=== PATIENT | female | born 1950 | race Caucasian/White ===

== ENCOUNTER → 2017-06-09 | Outpatient (CLI) | payer MEDICARE, OTHER ==
[~2017-06-09] MED LIST: ALPR.25T PO; ASP81TEC PO; ATEN50TA PO; BACL10TA PO; BUPR-45 PO; CA C1TAB26 PO; CATHETER FLUSH 10 ML SYR IV PRN; CYAN10007 PO; CYCL10TA9 PO; ESTR1TAB24 PO; FURO40TA4 PO; GABA600T2 PO; HYDR-3720 PO; IOHEXOL 350 MG/ML 150 ML (OMNIPAQUE 350) VIAL IV ONE; IOHEXOL 350 MG/ML 150 ML (OMNIPAQUE 350) VIAL IV SCH; KCL10CCR PO; NF-DICLOTA PO; NF-ESTR1.5 PO; NS 100 ML (IVPB) BAG IV ONE; PANT40SU PO; PNT40TEC PO; PREG75CA PO; ROPI1TAB2 PO; SERT50TA PO; TRAM50TA2 PO; WRF5T PO; ZLP10T PO
--- NOTE | 2017-06-09 16:33 | Diagnostic Imaging Report ---
PROCEDURE: CT angiography of the chest with contrast. TECHNIQUE: Multiple contiguous axial images were obtained through the chest after uneventful bolus administration of intravenous contrast. Reconstructed CTA MIP acquisitions were also performed. INDICATION: Shortness of air, anterior chest wall pain, history of pulmonary emboli. FINDINGS: There are no intraluminal pulmonary arterial filling defects. There were no findings of pulmonary arterial embolus. The thoracic aorta is patent and nonacute. There is a small retrocardiac hiatal hernia. No pleural or pericardial effusion. There is no pneumothorax. No lung mass or thoracic lymphadenopathy. No focal infiltrate or findings of pneumonia or aspiration. There was no acute soft tissue or osseous chest wall abnormality. No evidence for fracture or bony destruction. No adenopathy. The visualized upper abdomen reveals absent gallbladder. At least scarring or atrophy of the partially visualized right renal upper pole and no acute-appearing abnormality. IMPRESSION: Negative for PE or acute aortic pathology. Hiatal hernia with no chest wall abnormality. Likely scarring or atrophy of the partially visualized right renal upper pole, chronic. Pertinent results of the exam were left on the ordering physician's phone mail service at the number where call report was requested at the time of this dictation. Dictated by: Dictated on workstation # [id number]
== END ==
LOC: RAD 15:35
PROVIDERS: ATTEND Internal Medicine Cardiovascular Disease
DX: K44.9 Diaphragmatic hernia without obstruction or gangrene (principal); Z86.711 Personal history of pulmonary embolism
CPT/HCPCS: 71275

== ENCOUNTER → 2017-06-30 | Outpatient (CLI) | payer MEDICARE, OTHER ==
[~2017-06-30] MED LIST changes: -CATHETER FLUSH 10 ML SYR IV PRN; -IOHEXOL 350 MG/ML 150 ML (OMNIPAQUE 350) VIAL IV ONE; -IOHEXOL 350 MG/ML 150 ML (OMNIPAQUE 350) VIAL IV SCH; -NS 100 ML (IVPB) BAG IV ONE; +REGADENOSON 0.4 MG/5 ML SYR (LEXISCAN) IV ONE
[2017-06-30] MEDS: CATHETER FLUSH 10 ML SYR IV PRN ×2 (12:03→13:08)
[2017-06-30 13:05] VITALS: BP 176/98
--- NOTE | 2017-06-30 14:30 | STRESS TEST ---
DATE OF SERVICE: 06/30/2017 LEXISCAN MYOVIEW STRESS TEST REPORT Baseline heart rate is 63. Baseline blood pressure 176/98. Baseline EKG, sinus rhythm with no ischemic changes. In summary, the patient received 10.5 mCi of technetium-99 Myoview and the resting images were obtained. Then, the patient received 0.4 mg of Lexiscan followed by 32.5 mCi of technetium-99 Myoview. Throughout the test, there were no EKG changes. The resting and stress images were reviewed and compared in the short axis, horizontal long axis, and vertical long axis views. Review of the images showed breast attenuation with good radiotracer uptake, no significant ischemia or infarction was seen. SSS is 2, SDS 1, TID value 0.93. On the gated images, the left ventricle appeared to be normal size with normal contractility. Calculated ejection fraction 78%. CONCLUSION: 1. The patient tolerated Lexiscan well. 2. No ischemia or infarction on SPECT images. 3. Normal left ventricular size with normal contractility. Calculated ejection fraction 78%. Job ID: [id number] DocumentID: [id number] Dictated Date: 06/30/2017 14:16:01 Care Transition Mgr Date: 06/30/2017 14:29:39 Dictated By: CAROLINA LOPEZ MD
== END ==
LOC: CARD 10:50
PROVIDERS: ATTEND Internal Medicine Cardiovascular Disease
DX: R07.9 Chest pain, unspecified (principal); I73.9 Peripheral vascular disease, unspecified; R53.83 Other fatigue; E78.2 Mixed hyperlipidemia; R06.02 Shortness of breath
CPT/HCPCS: 78452; 93017

== ENCOUNTER → 2017-11-11 | Outpatient (CLI) | payer MEDICARE, OTHER ==
[~2017-11-11] MED LIST changes: -REGADENOSON 0.4 MG/5 ML SYR (LEXISCAN) IV ONE
--- NOTE | 2017-11-11 17:50 | Diagnostic Imaging Report ---
INDICATION: Routine screening. COMPARISON: Prior exam from 03/28/2015 and 03/05/2014. EXAMINATION: Bilateral digital screening mammogram with CAD. 3D tomographic images were obtained and reviewed. The current study was also evaluated with a Computer Aided Detection (CAD) system. FINDINGS: Both breasts are heterogeneously dense, limiting the sensitivity of mammography. The parenchymal pattern is stable. No dominant mass or malignant appearing microcalcifications are seen. The axillae are unremarkable. IMPRESSION: BI-RADS category 1 No mammographic features suspicious for malignancy are identified. Dictated by: Dictated on workstation # [id number]
== END ==
LOC: RAD 14:31
PROVIDERS: ATTEND Family Medicine
DX: Z12.31 Encounter for screening mammogram for malignant neoplasm of breast (principal)
CPT/HCPCS: 77067

== ENCOUNTER 2018-11-04 11:00 | Observation (INO) | payer MEDICARE, OTHER ==
[~2018-11-04] VITALS: Ht 165.1 cm; Wt 100.3 kg
[2018-11-04] MEDS ORDERED: NS IV 1000 ML 1,000 ML IV SCH ×2 (11:06→12:50)
--- NOTE | 2018-11-04 11:14 | ED General ---
General Chief Complaint: General Problems/Pain Stated Complaint: WEAKNESS Source of Information: Patient Exam Limitations: No Limitations History of Present Illness Date Seen by Provider: Nov 04, 2018 Time Seen by Provider: 11:05 Initial Comments 68-year-old female brought in for generalized malaise. Patient reports that when she got up to go the restroom at 3 AM this morning she was a little confused and dizzy. She complains of a headache and some blurred vision at this time. She denies any fever, chills, cough, shortness of breath, chest pain. At this time her main complaint is some generalized malaise. No confusion at this time. Patient described his confusion is "not being able to find the bathroom Allergies and Home Medications Allergies Coded Allergies: No Known Drug Allergies (Unverified , 09/14/09) Home Medications Alprazolam 0.25 Mg Tablet, 0.25 MG PO TID PRN, (Reported) Aspirin 81 Mg Tabec, 81 MG PO DAILY, (Reported) Atenolol 50 Mg Tablet, 50 MG PO DAILY, (Reported) Baclofen 10 Mg Tablet, 10 MG PO DAILY, (Reported) Ca Cmb No.1/Vit D3/B-6/Fa/B12 1 Each Tablet, 1 EACH PO DAILY, (Reported) Cyanocobalamin 1,000 Mcg Tablet.sa, 1,000 MCG PO DAILY, (Reported) Cyclobenzaprine Hcl 10 Mg Tablet, 1 EACH PO Q8HR PRN FOR MUSCLE SPASMS Prescribed by: LUCERO EDMONDS on 09/15/09 0010 Furosemide 40 Mg Tablet, 40 MG PO BID, (Reported) Gabapentin 600 Mg Tablet, 600 MG PO TID, (Reported) Hydrocodone Bit/Acetaminophen 1 Each Tablet, 1-2 EACH PO Q 4 - 6 HRS PRN PRN FOR PAIN Prescribed by: LUCERO EDMONDS on 09/15/09 0010 Pantoprazole Sod 40 Mg Tab, 40 MG PO DAILY, (Reported) Potassium Chloride 10 Meq Capcr, 10 MEQ PO DAILY, (Reported) Pregabalin 75 Mg Capsule, 75 MG PO BID, (Reported) Ropinirole Hcl 1 Mg Tablet, 1 MG PO DAILY, (Reported) Sertraline Hcl 50 Mg Tablet, 50 MG PO DAILY, (Reported) Tramadol Hcl 50 Mg Tablet, 50 MG PO DAILY PRN, (Reported) Warfarin Sodium 5 Mg Tablet, 1 EACH PO every other day, (Reported) Warfarin Sodium 5 Mg Tablet, 7.5 MG PO every other day, (Reported) Zolpidem Tartrate 10 Mg Tab, 10 MG PO HS, (Reported) Patient Home Medication List Home Medication List Reviewed: Yes Review of Systems Review of Systems Constitutional: dizziness; No fever; malaise Respiratory: No cough Cardiovascular: No chest pain Gastrointestinal: no symptoms reported Genitourinary: no symptoms reported Musculoskeletal: no symptoms reported Skin: no symptoms reported Psychiatric/Neurological: See HPI Past Lwqdmkn-Crhbdd-Zjpkon Hx Past Med/Social Hx: Reviewed Nursing Past Med/Soc Hx Patient Social History Alcohol Use: Denies Use Recreational Drug Use: No Smoking Status: Never a Smoker Recent Hopitalizations: No Physical Abuse: No Sexual Abuse: No Mistreated: No Fear: No Immunizations Up To Date Date of Pneumonia Vaccine: Oct 27, 2010 Date of Influenza Vaccine: Dec 27, 2010 Past Medical History Surgeries: Yes (back 3yrs. ago, 1994 gall bladder removed, knee replacement 2001) Respiratory: No Cardiac: No Neurological: No Reproductive Disorders: No Gastrointestinal: Yes Musculoskeletal: Yes Endocrine: No Psychosocial: No Blood Disorders: No Physical Exam Vital Signs Vital Signs - First Documented 11/04/18 11:06 Temp 97.1 Pulse 59 Resp 14 B/P (MAP) 161/86 (111) Pulse Ox 99 O2 Delivery Room Air Capillary Refill : Height, Weight, BMI Height: '" Weight: lbs. oz. 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 Norm as Tested Skin: Normal Color, Warm/Dry Progress/Results/Core Measures Suspected Sepsis SIRS Temperature: Pulse: Respiratory Rate: Laboratory Tests 11/04/18 11:10: White Blood Count 4.4 Blood Pressure / Mean: Laboratory Tests 11/04/18 11:10: Creatinine 1.21, Platelet Count 232, Total Bilirubin 0.5 Results/Orders Lab Results Laboratory Tests Test 11/04/18 11:10 11/04/18 12:23 Range/Units White Blood Count 4.4 4.3-11.0 10^3/uL Red Blood Count 4.62 4.35-5.85 10^6/uL Hemoglobin 13.1 11.5-16.0 G/DL Hematocrit 40 35-52 % Mean Corpuscular Volume 87 80-99 FL Mean Corpuscular Hemoglobin 28 25-34 PG Mean Corpuscular Hemoglobin Concent 33 32-36 G/DL Red Cell Distribution Width 13.3 10.0-14.5 % Platelet Count 232 130-400 10^3/uL Mean Platelet Volume 9.2 7.4-10.4 FL Sodium Level 140 135-145 MMOL/L Potassium Level 4.1 3.6-5.0 MMOL/L Chloride Level 105 98-107 MMOL/L Carbon Dioxide Level 26 21-32 MMOL/L Anion Gap 9 5-14 MMOL/L Blood Urea Nitrogen 10 7-18 MG/DL Creatinine 1.21 0.60-1.30 MG/DL Estimat Glomerular Filtration Rate 44 BUN/Creatinine Ratio 8 Glucose Level 104 70-105 MG/DL Calcium Level 10.1 8.5-10.1 MG/DL Corrected Calcium 9.9 8.5-10.1 MG/DL Total Bilirubin 0.5 0.1-1.0 MG/DL Aspartate Amino Transf (AST/SGOT) 18 5-34 U/L Alanine Aminotransferase (ALT/SGPT) 17 0-55 U/L Alkaline Phosphatase 81 40-136 U/L Troponin I < 0.028 <0.028 NG/ML Total Protein 7.0 6.4-8.2 GM/DL Albumin 4.2 3.2-4.5 GM/DL Thyroid Stimulating Hormone (TSH) 1.21 0.35-4.94 UIU/ML Urine Color YELLOW Urine Clarity CLEAR Urine pH 7 5-9 Urine Specific [place] 1.005 L 1.016-1.022 Urine Protein NEGATIVE NEGATIVE Urine Glucose (UA) NEGATIVE NEGATIVE Urine Ketones NEGATIVE NEGATIVE Urine Nitrite NEGATIVE NEGATIVE Urine Bilirubin NEGATIVE NEGATIVE Urine Urobilinogen NORMAL NORMAL MG/DL Urine Leukocyte Esterase 1+ H NEGATIVE Urine RBC (Auto) NEGATIVE NEGATIVE Urine RBC NONE /HPF Urine WBC RARE /HPF Urine Squamous Epithelial Cells RARE /HPF Urine Crystals NONE /LPF Urine Bacteria NEGATIVE /HPF Urine Casts NONE /LPF Urine Mucus NEGATIVE /LPF Urine Culture Indicated NO My Orders Orders - MACIAS,TWIN L DO Ct Head Wo (11/04/18 11:06) Cbc No Diff (11/04/18 11:06) Comprehensive Metabolic Panel (11/04/18 11:06) Thyroid Stimulating Hormone (11/04/18 11:06) Troponin I (11/04/18 11:06) Ua Culture If Indicated (11/04/18 11:06) Ekg Tracing (11/04/18 11:06) Orthostatic Vital Signs (Adult (11/04/18 11:06) I-Stat Bedside Testing (11/04/18 11:06) Chest Pa/Lat (2 View) (11/04/18 11:06) Ed Iv/Invasive Line Start (11/04/18 11:06) Ns Iv 1000 Ml (Sodium Chloride 0.9%) (11/04/18 11:06) Meclizine Tablet (Antivert Tablet) (11/04/18 11:15) Ketorolac Injection (Toradol Injection) (11/04/18 11:53) Orphenadrine Injection (Norflex Injectio (11/04/18 12:45) Ed Iv/Invasive Line Start (11/04/18 12:50) Ns Iv 1000 Ml (Sodium Chloride 0.9%) (11/04/18 12:50) Medications Given in ED Current Medications Medications Dose Ordered Sig/Ju Route Start Time Stop Time Status Last Admin Dose Admin Meclizine HCl 25 mg ONCE ONCE PO 11/04/18 11:15 11/04/18 11:16 DC 11/04/18 11:15 25 MG Orphenadrine Citrate 60 mg ONCE ONCE IV 11/04/18 12:45 11/04/18 12:46 DC 11/04/18 12:46 60 MG Vital Signs/I&O 11/04/18 11/04/18 11:06 11:15 Temp 97.1 Pulse 59 68 69 Resp 14 B/P (MAP) 161/86 (111) 161/86 (111) 140/99 (113) 125/87 (100) Pulse Ox 99 O2 Delivery Room Air Capillary Refill : Progress Note : Time: 12:15 Progress Note To discuss lab results CT and x-ray and EKG findings with patient and family. In their daughter became very aggressive and angry towards me because "she states that the mother had slurred speech around 10 AM this morning and i mentioned to her that this was the first time that I had been informed of any speech changes or any other symptoms besides a mild headache, dizziness, mild blurred vision. Daughter then questioned when I evaluated patient . I discussed with her that I walked in with the ambulance got report from EMS, and patient and there was no mention of slurred speech until she just brought it up. Patient did not have slurred speech upon arrival and has not had slurred speech since along with no other acute neurological findings besides mention mild blurred vision. Daughter also reports that patient is very weak and cannot stand however this is not consistent with what was seen by the tech. Patient was very aggressive in her question of me. When I explained to her what was going on she told me to "check myself" 1405 patient had additional family arrived. 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 I once again discussed with them that she has no neurologic symptoms besides some mild dizziness. Patient was minimally unsteady on her feet. I did call and discuss with the hospitalist. I discussed with the family that we couldn't admit her for observation overnight however we would not be able obtain further workup including MRI and carotid ultrasound. Patient recently she went to go home however family continues to stress for admission. I discussed with her that I will do whatever you want since I have an observation admission if they would choose. ECG Initial ECG Impression Date: Nov 04, 2018 Initial ECG Impression Time: 11:04 Initial ECG Rhythm: Normal Sinus Initial ECG Intervals: Normal Initial ECG Impression: Normal Departure Communication (Admissions) Time/Spoke to Admitting Phy: 14:20 Called and discussed with Dr. Medina. Patient to be admitted to observation. We will gently rehydrate her with fluids and recheck labs in the morning. Patient is admitted to observation stable condition. Impression Primary Impression: Weakness generalized Additional Impression: Dizziness of unknown etiology Disposition: ADMITTED INPATIENT Condition: Stable Admissions Decision to Admit Reason: Admit from ER (General) Decision to Admit/Date: Nov 04, 2018 Time/Decision to Admit Time: 14:21 Departure-Patient Inst. Referrals: DANIELLA VILLALPANDO MD (PCP/Family) Primary Care Physician TWIN MACIAS DO Nov 04, 2018 11:14
[2018-11-04 11:15] VITALS: BP_SYST 125; BP_SYST 140; BP_SYST 161; BP_DIAS 86; BP_DIAS 87; BP_DIAS 99
[2018-11-04] MEDS ORDERED: MECLIZINE 25 MG (ANTIVERT) TAB PO ONE (11:15)
[2018-11-04 11:18] LABS: HEMOGLOBIN 13.1 G/DL (11.5-16.0); MEAN PLATELET VOLUME 9.2 FL (7.4-10.4); RED CELL DISTRIBUTION WIDTH 13.3 % (10.0-14.5); WHITE BLOOD COUNT 4.4 10^3/uL (4.3-11.0)
[2018-11-04 11:35] LABS: ALANINE AMINOTRANSFERASE 17 U/L (0-55); ALBUMIN 4.2 GM/DL (3.2-4.5); ALKALINE PHOSPHATASE 81 U/L (40-136); BILIRUBIN,TOTAL 0.5 MG/DL (0.1-1.0); BUN/CREATININE RATIO 8; CALCIUM 10.1 MG/DL (8.5-10.1); CARBON DIOXIDE 26 MMOL/L (21-32); CHLORIDE 105 MMOL/L (98-107); CREATININE SERUM 1.21 MG/DL (0.60-1.30); GFR ESTIMATED 44; GLUCOSE 104 MG/DL (70-105); POTASSIUM 4.1 MMOL/L (3.6-5.0); SODIUM 140 MMOL/L (135-145)
--- NOTE | 2018-11-04 11:47 | Diagnostic Imaging Report ---
PROCEDURE: CT head without contrast. TECHNIQUE: Multiple contiguous axial images were obtained through the brain without the use of intravenous contrast. Auto Exposure Controls were utilized during the CT exam to meet ALARA standards for radiation dose reduction. INDICATION: Generalized Weakness. Headache. Posterior head pain. COMPARISON: CT head on 05/15/2010 FINDINGS: The ventricles and cortical sulci are age-appropriate. There is no midline shift or mass-effect. No acute intracranial hemorrhage is seen. There is no CT evidence of acute territorial ischemia. No focal masses or collections are present. The calvarium is intact. The visualized paranasal sinuses are clear. IMPRESSION: No hemorrhage or focal intra-axial mass. No CT evidence of large acute territorial ischemia. Dictated by: Dictated on workstation # [id number]
[2018-11-04] MEDS ORDERED: KETOROLAC 30 MG/ML VIAL IVP STA (11:53)
--- NOTE | 2018-11-04 11:57 | Diagnostic Imaging Report ---
INDICATION: Fever with nausea, vomiting and diarrhea. TIME OF EXAM: 11:43 AM Comparison is made with prior chest from 03/18/2011. FINDINGS: The heart size is stable. There is eventration of right hemidiaphragm. The lungs are clear. No infiltrates are seen. No effusion or pneumothorax is identified. The pulmonary vascularity is normal. IMPRESSION: No acute cardiopulmonary process is detected. Dictated by: Dictated on workstation # [id number]
[2018-11-04 12:29] LABS: BILIRUBIN,URINE NEGATIVE (NEGATIVE); CLARITY,URINE CLEAR; COLOR,URINE YELLOW; GLUCOSE, URINE (UA) NEGATIVE (NEGATIVE); KETONES,URINE NEGATIVE (NEGATIVE); LEUKOCYTE ESTERASE ,URINE 1+ (NEGATIVE); NITRITE,URINE NEGATIVE (NEGATIVE); PH,URINE 7 (5-9); PROTEIN,URINE NEGATIVE (NEGATIVE); UROBILINOGEN,URINE NORMAL (NORMAL)
[2018-11-04 12:42] LABS: BACTERIA,URINE NEGATIVE /HPF; SQUAMOUS EPITHELIAL CELL,UR RARE /HPF; WBC,URINE RARE /HPF
--- NOTE | 2018-11-04 12:42 | NUR ---
PT WALKES TO BATHROOM WITH 2 ASSIST AND RETURNS TO BATHROOM WITH 1 ASSIST. PT FAMILY STATES THAT PT WAS "HANGING UPSIDE DOWN IN NOMAN WIRE" PRIOR TO ARRIVAL. PT DENIES HITTING HEAD. PT ALERT AND ORIENT X4 AT THIS TIME. PT IS MORE TALKATIVE THAN WHEN SHE FIRST ARRIVED TO HOSPITAL. PT C/O FEELING DIZZY AND BLURRY VISION. DOCTOR NOTIFIED. FAMILY STATES PT NEVER HAS NORMAL LABS AND USUALLY HAS ABNORMAL BUN AND CREAT. NIH 0
[2018-11-04] MEDS ORDERED: ORPHENADRINE 60 MG/2 ML (NORFLEX) AMP IV ONE (12:45)
--- NOTE | 2018-11-04 13:04 | NUR ---
THIS RN PRESENT WHEN PT STATES TO DOCTOR THAT SHE DOES NOT WANT TO BE ADMITTED. PT ALERT AND ORIENT X4.
--- NOTE | 2018-11-04 13:06 | NUR ---
FAMILY STATES THAT PT TOLD THEM THAT "SHE WAS WALKING ALL AROUND THE ROOM THIS MORNING AND BUMPING INTO THINGS"
--- NOTE | 2018-11-04 13:08 | NUR ---
PT FAMILY STATES CONTACTED DR. LOPEZ TO COME SEE PATIENT.
--- NOTE | 2018-11-04 13:18 | NUR ---
PT TOLERATES WATER AND ICE CHIPS WITHOUT DIFFICULTY.
--- NOTE | 2018-11-04 13:56 | NUR ---
PT ASSISTED TO THE BATHROOM WITH 1 ASSIST. PT HAS AN UNSTEADY GAIT. HAVE EXTENSIVE CONVERSATION THAT THIS RN WILL BE AN ADVOCATE FOR PT WITH WHAT SHE WANTS FAR ADMISSION AND CONSULTS. THIS RN REINFORCES THAT SHE HAS A FAMILY TO CARE FOR HER WITH DEMENTIA. MANY TIME PT IS ASKED IF SHE WANTS TO BE ADMITTED AND PT DENIES.
--- NOTE | 2018-11-04 14:02 | NUR ---
PT ALERT AND ORIENT X4 WITH NO OBVIOUS NEURO DEFICET
--- NOTE | 2018-11-04 14:15 | NUR ---
PT AGREES TO BE ADMITTED TO OBSERVATION
--- NOTE | 2018-11-04 14:39 | NUR ---
FAMILY COMES TO NURSE'S STATIONS AND STATES THAT PT WAS SHAKING WHILE HOLDING A PEN. DOCTOR NOTIFIED AT THIS TIME.
--- NOTE | 2018-11-04 14:58 | NUR ---
REPORT RECEIVED FROM JETHRO MEADOWS RN.
--- NOTE | 2018-11-04 15:08 | NUR ---
PT ARRIVED TO UNIT VIA WHEELCHAIR ACCOMPANIED BY JETHRO JONAS AND PT'S FAMILY.
--- OUTSIDE RECORDS SUMMARY | 2018-11-04 15:27 | XMS REPORT | CCD ---
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 Name Role Phone PP Unavailable CCM Unavailable Summary Purpose Interface Exchange Insurance Providers Payer name Policy type / Coverage type Covered alliance party ID Effective Begin Date Effective End Date WPS Medicare Part B Medicare Part B [id number] Unknown [employer] Medicare Part B [id number] Unknown Family history Mother Diagnosis Age At Onset Hypertension Unknown Hyperlipidemia Unknown Arthritis Unknown Osteoporosis Unknown Father Diagnosis Age At Onset Depression Unknown Heart disease Unknown Diabetes mellitus Type 2 Unknown Daughter Diagnosis Age At Onset No Family Disease Entered N/A Sister Diagnosis Age At Onset No Family Disease Entered N/A Brother Diagnosis Age At Onset Alcoholism Unknown Sister Diagnosis Age At Onset No Family Disease Entered N/A Brother Diagnosis Age At Onset No Family Disease Entered N/A Sister Diagnosis Age At Onset Breast cancer Unknown Daughter Diagnosis Age At Onset No Family Disease Entered N/A Social History Social History Element Codes Description Effective Dates Tobacco history SNOMED CT: 894340276 Never smoker but had significant smoke exposure during first marriage, [place]. 08/01/2013 Employment Unknown Retired doing as needed working for the [employer]. 05/02/2013 Marital status Unknown 04/18/[address]: 499119074 Never drinks alcohol 04/18/2013 Has the patient ever used illegal drugs? Unknown Has never used illegal drugs 04/18/2013 Allergies, Adverse Reactions, Alerts Substance Reaction Codes Entered Date Inactivated Date Status * NO KNOWN FOOD ALLERGIES Unknown 04/18/2013 No Inactive Date Active Seasonal Unknown 04/18/2013 No Inactive Date Active * NO KNOWN DRUG ALLERGIES Unknown 04/18/2013 No Inactive Date Active Past Medical History Illness Codes Condition Status Onset Date Resolved Date Fusion of spine, lumbar region ICD-9: 718.58 ICD-10: M43.26 Active 09/26/2018 Unknown Low back pain ICD-9: 724.2 ICD-10: M54.5 Active 09/26/2018 Unknown Spinal instabilities, lumbar region ICD-9: 724.9 ICD-10: M53.2X6 Active 09/26/2018 Unknown Chronic kidney disease, stage 3 (moderate) ICD-9: 585.3 ICD-10: N18.3 Active 02/24/2016 Unknown Cough ICD-9: 786.2 ICD-10: R05 Active 07/27/2018 Unknown Essential (primary) hypertension ICD-9: 401.1 ICD-10: I10 Active 09/27/2017 Unknown Generalized anxiety disorder ICD-9: 308.0 ICD-10: F41.1 Active 02/24/2016 Unknown Chronic pain syndrome ICD- 9: 338.4 ICD-10: G89.4 Active 07/23/2017 Unknown Localized edema ICD-9: 782.3 ICD-10: R60.0 Active 09/27/2017 Unknown 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 Active 10/06/2017 Unknown Essential (primary) hypertension ICD-9: 401.9 ICD-10: I10 Active 02/24/2016 Unknown Other specified abnormal findings of blood chemistry ICD-9: 790.92 ICD-10: R79.89 Active 06/23/2017 Unknown Chest pain, unspecified ICD-9: 786.50 ICD-10: R07.9 Active 06/01/2017 Unknown Gastro-esophageal reflux disease without esophagitis ICD-9: 530.81 ICD-10: K21.9 Active 05/11/2017 Unknown Contusion of right lower leg, initial encounter ICD-9: 924.5 ICD-10: S80.11XA Active 10/30/2016 Unknown Allergic rhinitis, unspecified ICD-9: 477.9 ICD-10: J30.9 Active 09/15/2016 Unknown Pain in left hand ICD-9: 729.5 ICD-10: M79.642 Active 06/19/2016 Unknown Pain in right hand ICD- 9: 729.5 ICD-10: M79.641 Active 06/19/2016 Unknown Major depressive disorder, recurrent, moderate ICD-9: 296.32 ICD-10: F33.1 Active 02/24/2016 Unknown Shortness of breath ICD- 9: 786.05 ICD-10: R06.02 Active 02/24/2016 Unknown Myalgia ICD-9: 729.1 ICD-10: M79.1 Active 01/27/2016 Unknown Restless legs syndrome ICD-9: 333.94 ICD-10: G25.81 Active 01/27/2016 Unknown Encounter for immunization ICD-9: V06.6 ICD-10: Z23 Active 01/07/2016 Unknown Insomnia, unspecified ICD- 9: 780.52 ICD-10: G47.00 Active 11/13/2015 Unknown 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] ICD-9: 082.41 ICD-10: A77.41 Active 10/09/2015 Unknown Irritable bowel syndrome with diarrhea ICD-9: 564.1 ICD-10: K58.0 Active 10/09/2015 Unknown Bitten or stung by nonvenomous insect and other nonvenomous arthropods, initial encounter ICD-9: 919.4 ICD-10: W57.XXXA Active 09/11/2015 Unknown Iron deficiency ICD-9: 280.9 ICD-10: E61.1 Active 09/11/2015 Unknown Other vitamin B12 deficiency anemias ICD-9: 281.1 ICD-10: D51.8 Active 09/11/2015 Unknown Chronic kidney disease, stage 3 ICD-9: 585.3 Active 05/02/2013 Unknown Easy bruising ICD-9: 782.9 Active 09/06/2014 Unknown Iron deficiency anemia ICD-9: 280.9 Active 09/06/2014 Unknown Shingles ICD-9: 053.9 Active 07/16/2014 Unknown COUGH ICD-9: 786.2 Active 04/02/2014 Unknown PNEUMONIA (CAP) ICD-9: 486 Active 04/02/2014 Unknown OTH SCREENING MAMMOGRAM ICD-9: V76.12 Active 12/27/2013 Unknown EDEMA ICD-9: 782.3 Active 12/14/2013 Unknown ESSENTIAL HYPERTENSION ICD-9: 401.9 Active 12/14/2013 Unknown Rib pain on left side ICD- 9: 786.50 Active 12/14/2013 Unknown ALLERGIC RHINITIS ICD-9: 477.9 Active 08/01/2013 Unknown Elbow pain, right ICD-9: 719.42 Active 08/01/2013 Unknown ESOPHAGEAL REFLUX ICD-9: 530.81 Active 08/01/2013 Unknown Snoring ICD-9: 786.09 Active 08/01/2013 Unknown Urge incontinence ICD-9: 788.31 Active 08/01/2013 Unknown Hyperlipidemia Unknown Active 05/02/2013 Unknown HYPERLIPIDEMIA ICD-9: 272.4 Active 05/02/2013 Unknown Anemia Unknown Active 04/18/2013 Unknown Depression Unknown Active 04/18/2013 Unknown edema Unknown Active 04/18/2013 Unknown Fibromyalgia Unknown Active 04/18/2013 Unknown Hypertension Unknown Active 04/18/2013 Unknown Miscarriage Unknown Active 04/18/2013 Unknown Osteoarthritis Unknown Active 04/18/2013 Unknown renal insufficiency Unknown Active 04/18/2013 Unknown Restless leg ICD-9: 333.94 Active 04/18/2013 Unknown Problems Condition Codes Effective Dates Condition Status Fusion of spine, lumbar region ICD-9: 718.58 ICD-10: M43.26 09/26/2018 Active Low back pain ICD-9: 724.2 ICD-10: M54.5 09/26/2018 Active Spinal instabilities, lumbar region ICD-9: 724.9 ICD-10: M53.2X6 09/26/2018 Active Chronic kidney disease, stage 3 (moderate) ICD-9: 585.3 ICD-10: N18.3 02/24/2016 Active Cough ICD-9: 786.2 ICD-10: R05 07/27/2018 Active Essential (primary) hypertension ICD-9: 401.1 ICD-10: I10 09/27/2017 Active Generalized anxiety disorder ICD-9: 308.0 ICD-10: F41.1 02/24/2016 Active Chronic pain syndrome ICD- 9: 338.4 ICD-10: G89.4 07/23/2017 Active Localized edema ICD-9: 782.3 ICD-10: R60.0 09/27/2017 Active 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 10/06/2017 Active Essential (primary) hypertension ICD-9: 401.9 ICD-10: I10 02/24/2016 Active Other specified abnormal findings of blood chemistry ICD-9: 790.92 ICD-10: R79.89 06/23/2017 Active Chest pain, unspecified ICD-9: 786.50 ICD-10: R07.9 06/01/2017 Active Gastro-esophageal reflux disease without esophagitis ICD-9: 530.81 ICD-10: K21.9 05/11/2017 Active Contusion of right lower leg, initial encounter ICD-9: 924.5 ICD-10: S80.11XA 10/30/2016 Active Allergic rhinitis, unspecified ICD-9: 477.9 ICD-10: J30.9 09/15/2016 Active Pain in left hand ICD-9: 729.5 ICD-10: M79.642 06/19/2016 Active Pain in right hand ICD- 9: 729.5 ICD-10: M79.641 06/19/2016 Active Major depressive disorder, recurrent, moderate ICD-9: 296.32 ICD-10: F33.1 02/24/2016 Active Shortness of breath ICD- 9: 786.05 ICD-10: R06.02 02/24/2016 Active Myalgia ICD-9: 729.1 ICD-10: M79.1 01/27/2016 Active Restless legs syndrome ICD-9: 333.94 ICD-10: G25.81 01/27/2016 Active Encounter for immunization ICD-9: V06.6 ICD-10: Z23 01/07/2016 Active Insomnia, unspecified ICD- 9: 780.52 ICD-10: G47.00 11/13/2015 Active 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] ICD-9: 082.41 ICD-10: A77.41 10/09/2015 Active Irritable bowel syndrome with diarrhea ICD-9: 564.1 ICD-10: K58.0 10/09/2015 Active Bitten or stung by nonvenomous insect and other nonvenomous arthropods, initial encounter ICD-9: 919.4 ICD-10: W57.XXXA 09/11/2015 Active Iron deficiency ICD-9: 280.9 ICD-10: E61.1 09/11/2015 Active Other vitamin B12 deficiency anemias ICD-9: 281.1 ICD-10: D51.8 09/11/2015 Active Chronic kidney disease, stage 3 ICD-9: 585.3 05/02/2013 Active Easy bruising ICD-9: 782.9 09/06/2014 Active Iron deficiency anemia ICD-9: 280.9 09/06/2014 Active Shingles ICD-9: 053.9 07/16/2014 Active COUGH ICD-9: 786.2 04/02/2014 Active PNEUMONIA (CAP) ICD-9: 486 04/02/2014 Active OTH SCREENING MAMMOGRAM ICD-9: V76.12 12/27/2013 Active EDEMA ICD-9: 782.3 12/14/2013 Active ESSENTIAL HYPERTENSION ICD-9: 401.9 12/14/2013 Active Rib pain on left side ICD- 9: 786.50 12/14/2013 Active ALLERGIC RHINITIS ICD-9: 477.9 08/01/2013 Active Elbow pain, right ICD-9: 719.42 08/01/2013 Active ESOPHAGEAL REFLUX ICD-9: 530.81 08/01/2013 Active Snoring ICD-9: 786.09 08/01/2013 Active Urge incontinence ICD-9: 788.31 08/01/2013 Active Hyperlipidemia Unknown 05/02/2013 Active HYPERLIPIDEMIA ICD-9: 272.4 05/02/2013 Active Anemia Unknown 04/18/2013 Active Depression Unknown 04/18/2013 Active edema Unknown 04/18/2013 Active Fibromyalgia Unknown 04/18/2013 Active Hypertension Unknown 04/18/2013 Active Miscarriage Unknown 04/18/2013 Active Osteoarthritis Unknown 04/18/2013 Active renal insufficiency Unknown 04/18/2013 Active Restless leg ICD-9: 333.94 04/18/2013 Active Medications Medication Codes Instructions Start Date Stop Date Status Fill Instructions labetalol 100 mg tablet RxNorm: 784877 TAKE ONE TABLET BY MOUTH TWICE A DAY 10/27/2018 10/21/2019 Active tramadol 50 mg tablet RxNorm: 027230 2 Tablet(s) PO BID 10/04/2018 12/02/2018 Active baclofen 5 mg tablet RxNorm: 336523 1/2 Tablet(s) PO TID as needed 09/26/2018 11/24/2018 Active Xanax 0.5 mg tablet RxNorm: 668904 1 Tablet(s) PO UD 1/2 AM, 1/2 noon if needed and 1 hs 07/27/2018 11/23/2018 Active Tessalon Perles 100 mg capsule RxNorm: 239329 1 Capsule(s) PO TID as needed cough 07/27/2018 10/24/2018 Inactive doxycycline hyclate 100 mg tablet RxNorm: 8910126 1 Tablet(s) PO BID 07/12/2018 07/25/2018 Inactive ropinirole 1 mg tablet RxNorm: 992208 TAKE TWO TABLETS BY MOUTH EVERY NIGHT AT BEDTIME 07/04/2018 03/30/2019 Active Carafate 1 gram tablet RxNorm: 926304 TAKE ONE TABLET BY MOUTH FOUR TIMES A DAY 07/04/2018 10/01/2018 Inactive montelukast 10 mg tablet RxNorm: 947964 TAKE ONE TABLET BY MOUTH EVERY NIGHT AT BEDTIME 07/04/2018 03/30/2019 Active losartan 100 mg tablet RxNorm: 318706 1 Tablet(s) PO daily 05/04/2018 01/28/2019 Active tramadol 50 mg tablet RxNorm: 204198 2 Tablet(s) PO BID 04/26/2018 06/23/2018 Inactive alprazolam 0.5 mg tablet RxNorm: 484043 1/2-1 Tablet(s) PO TID PRN as needed 04/04/2018 06/01/2018 Inactive Xanax 0.5 mg tablet RxNorm: 503189 1 Tablet(s) PO TID PRN as needed 04/04/2018 07/26/2018 Inactive tramadol 50 mg tablet RxNorm: 097238 2 Tablet(s) PO BID 12/01/2017 01/29/2018 Inactive Cymbalta 60 mg capsule,delayed release RxNorm: 202162 TAKE ONE CAPSULE BY MOUTH DAILY 11/10/2017 11/04/2018 Active furosemide 40 mg tablet RxNorm: 357045 1 Tablet(s) PO daily 10/26/2017 10/20/2018 Inactive alprazolam 0.5 mg tablet RxNorm: 717645 1/2-1 Tablet(s) PO TID PRN as needed 10/12/2017 12/10/2017 Inactive Ciclodan 8 % topical solution RxNorm: 0361684 1 Application TOP daily x 7 days, clean off with alcohol then restart cycle of application until fungal infection is completely cleared 10/06/2017 01/03/2018 Inactive omeprazole 20 mg capsule,delayed release RxNorm: 711724 TAKE ONE CAPSULE BY MOUTH DAILY 10/04/2017 01/24/2018 Inactive losartan 100 mg tablet RxNorm: 394816 1 Tablet(s) PO daily 09/27/2017 03/24/2018 Inactive Xanax 0.25 mg tablet RxNorm: 704268 1 Tablet(s) PO TID PRN as needed 08/13/2017 10/09/2017 Inactive Xanax 0.5 mg tablet RxNorm: 549617 1 Tablet(s) PO TID PRN as needed 07/23/2017 11/18/2017 Inactive ropinirole 1 mg tablet RxNorm: 561844 TAKE TWO TABLETS BY MOUTH EVERY NIGHT AT BEDTIME 06/28/2017 06/22/2018 Inactive montelukast 10 mg tablet RxNorm: 992532 TAKE ONE TABLET BY MOUTH EVERY NIGHT AT BEDTIME 06/28/2017 06/22/2018 Inactive furosemide 20 mg tablet RxNorm: 059079 TAKE TWO TABLETS BY MOUTH DAILY FOR 7 DAYS THEN TAKE ONE TABLET BY MOUTH DAILY 06/28/2017 10/01/2017 Inactive losartan 50 mg tablet RxNorm: 665581 1 Tablet(s) PO daily 06/01/2017 09/26/2017 Inactive labetalol 100 mg tablet RxNorm: 741082 TAKE ONE TABLET BY MOUTH TWICE A DAY 05/26/2017 05/30/2017 Inactive Protonix 40 mg tablet,delayed release RxNorm: 811362 1 Tablet(s) PO daily 05/26/2017 05/20/2018 Inactive amlodipine 5 mg tablet RxNorm: 236121 TAKE ONE TABLET BY MOUTH TWICE A DAY 05/26/2017 09/26/2017 Inactive labetalol 100 mg tablet RxNorm: 003717 1 Tablet(s) PO BID 05/26/2017 05/20/2018 Inactive Protonix 40 mg tablet,delayed release RxNorm: 566208 1 Tablet(s) PO daily 05/11/2017 05/25/2017 Inactive Carafate 1 gram tablet RxNorm: 322699 1 Tablet(s) PO QID 05/11/2017 09/07/2017 Inactive Cymbalta 60 mg capsule,delayed release RxNorm: 830234 TAKE ONE CAPSULE BY MOUTH DAILY 05/05/2017 10/31/2017 Inactive Xanax 0.25 mg tablet RxNorm: 587013 1 Tablet(s) PO TID PRN as needed 02/09/2017 06/07/2017 Inactive Cymbalta 60 mg capsule,delayed release RxNorm: 287041 TAKE ONE CAPSULE BY MOUTH DAILY 10/28/2016 04/25/2017 Inactive Xanax 0.25 mg tablet RxNorm: 755339 1 Tablet(s) PO TID PRN as needed 10/08/2016 12/06/2016 Inactive NEED TO GIVE #90 WITH NEXT REFILL Kenalog 40 mg/mL suspension for injection RxNorm: 8593504 Milliliter(s) Inj 09/15/2016 09/15/2016 Inactive tramadol 50 mg tablet RxNorm: 249384 Tablet(s) TAKE 2 TABLETS BY MOUTH TWICE DAILY 08/18/2016 10/03/2018 Inactive Generic For:ULTRAM 50 MG TABLET N O T I C E Last quantity doesn't match original quantity(Response to an electronic controlled substance refill request - RxReferenceNumber: [id number]) potassium chloride ER 10 mEq capsule,extended release RxNorm: 654129 TAKE ONE CAPSULE BY MOUTH DAILY NEEDED 08/03/2016 01/29/2017 Inactive potassium chloride ER 10 mEq capsule,extended release RxNorm: 652201 1 Capsule(s) PO QDAY PRN 06/18/2016 08/02/2016 Inactive furosemide 20 mg tablet RxNorm: 172148 1 Tablet(s) PO daily as needed for swelling 06/18/2016 06/12/2017 Inactive 2 daily x 1 week then daily Carafate 1 gram tablet RxNorm: 265444 1 Tablet(s) PO daily 04/24/2016 04/18/2017 Inactive Cymbalta 60 mg capsule,delayed release RxNorm: 183640 1 Capsule(s) PO daily 04/24/2016 10/20/2016 Inactive montelukast 10 mg tablet RxNorm: 768523 1 Tablet(s) PO QHS 04/24/2016 04/18/2017 Inactive omeprazole 20 mg capsule,delayed release RxNorm: 993801 Capsule(s) 1 Capsule(s) PO daily 04/24/2016 05/31/2017 Inactive ropinirole 1 mg tablet RxNorm: 641083 2 Tablet(s) PO QHS 04/24/2016 04/18/2017 Inactive furosemide 20 mg tablet RxNorm: 532801 1 Tablet(s) PO daily as needed for swelling 04/24/2016 06/17/2016 Inactive labetalol 100 mg tablet RxNorm: 431833 1 Tablet(s) PO BID 04/24/2016 04/18/2017 Inactive amlodipine 5 mg tablet RxNorm: 232507 Tablet(s) TAKE 1 TABLET BY MOUTH TWICE DAILY 04/24/2016 04/18/2017 Inactive Transferring from [facility] Xanax 0.25 mg tablet RxNorm: 881158 1 Tablet(s) PO TID PRN as needed 02/25/2016 03/25/2016 Inactive NEED TO GIVE #90 WITH NEXT REFILL Xanax 0.25 mg tablet RxNorm: 662534 1 Tablet(s) PO BID PRN as needed 02/19/2016 02/24/2016 Inactive [SAVINGS FOR UNINSURED PATIENTS -- BIN:833390, PCN: ASPROD1, Group: [id number], ID# [id number], Process claim through Able Device, for questions: . THIS IS NOT INSURANCE.] Cymbalta 60 mg capsule,delayed release RxNorm: 969264 1 Capsule(s) PO daily 01/28/2016 04/23/2016 Inactive ropinirole 1 mg tablet RxNorm: 836363 1 Tablet(s) PO BID TAKE 1 TABLET BY MOUTH DAILY EVERY NIGHT 01/28/2016 04/23/2016 Inactive Generic For:REQUIP 1 MG TABLET tramadol 50 mg tablet RxNorm: 179411 Tablet(s) TAKE 2 TABLETS BY MOUTH TWICE DAILY 01/16/2016 07/13/2016 Inactive Generic For:ULTRAM 50 MG TABLET N O T I C E Last quantity doesn't match original quantity(Response to an electronic controlled substance refill request [id number]) omeprazole 20 mg capsule,delayed release RxNorm: 268833 1 Tablet(s) PO daily 1 Capsule(s) PO daily 12/11/2015 04/23/2016 Inactive pravastatin 10 mg tablet RxNorm: 009899 1 Tablet(s) PO QHS TAKE 1 TABLET BY MOUTH EVERY NIGHT 11/28/2015 01/27/2016 Inactive Generic For:PRAVACHOL 10 MG TABLET furosemide 20 mg tablet RxNorm: 334908 1 Tablet(s) PO daily as needed for swelling 11/12/2015 04/23/2016 Inactive pravastatin 10 mg tablet RxNorm: 245683 1 Tablet(s) PO QHS TAKE 1 TABLET BY MOUTH EVERY NIGHT 11/07/2015 11/27/2015 Inactive Generic For:PRAVACHOL 10 MG TABLET Xanax 0.25 mg tablet RxNorm: 320087 1 Tablet(s) PO BID PRN as needed 10/28/2015 01/25/2016 Inactive [SAVINGS FOR UNINSURED PATIENTS -- BIN:809441, PCN: ASPROD1, Group: [id number], ID# [id number], Process claim through Able Device, for questions: . THIS IS NOT INSURANCE.] Viberzi 75 mg tablet RxNorm: 1091624 1 Tablet(s) PO BID 10/10/2015 10/10/2015 Inactive doxycycline hyclate 100 mg tablet RxNorm: 8860481 1 Tablet(s) PO BID 10/10/2015 10/23/2015 Inactive Vitamins B Complex capsule RxNorm: 1 Capsule(s) PO daily 09/12/2015 No Stop Date Active Vitamin D3 1,000 unit tablet RxNorm: 906775 3-4 Tablet(s) PO daily 09/12/2015 No Stop Date Active Augmentin 500 mg-125 mg tablet RxNorm: 745148 1 Tablet(s) PO BID 07/09/2015 2015 Inactive probiotic one bid x 7 days Augmentin 500 mg-125 mg tablet RxNorm: 040015 1 Tablet(s) PO BID 07/09/2015 07/08/2015 Inactive Xanax 0.25 mg tablet RxNorm: 909417 1 Tablet(s) PO BID PRN as needed 07/01/2015 09/28/2015 Inactive [SAVINGS FOR UNINSURED PATIENTS -- BIN:177196, PCN: ASPROD1, Group: [id number], ID# [id number], Process claim through Able Device, for questions: . THIS IS NOT INSURANCE.] sertraline 100 mg tablet RxNorm: 274152 TAKE 1 TABLET BY MOUTH TWICE DAILY 07/01/2015 01/27/2016 Inactive Generic For:*ZOLOFT 100MG TABLET N O T I C E Last quantity doesn't match original quantity amlodipine 5 mg tablet RxNorm: 803430 TAKE 1 TABLET BY MOUTH TWICE DAILY 06/26/2015 04/23/2016 Inactive Generic For:NORVASC 5 MG TABLET N O T I C E Last quantity doesn't match original quantity amlodipine 5 mg tablet RxNorm: 227546 Tablet(s) 1 Tablet(s) PO BID 06/25/2015 06/25/2015 Inactive ropinirole 1 mg tablet RxNorm: 624828 TAKE 1 TABLET BY MOUTH DAILY EVERY NIGHT 05/22/2015 01/27/2016 Inactive Generic For:REQUIP 1 MG TABLET ropinirole 1 mg tablet RxNorm: 702474 Tablet(s) 1 Tablet(s) PO QPM 05/22/2015 05/21/2015 Inactive pravastatin 10 mg tablet RxNorm: 750057 TAKE 1 TABLET BY MOUTH EVERY NIGHT 05/14/2015 11/06/2015 Inactive Generic For:PRAVACHOL 10 MG TABLET tramadol 50 mg tablet RxNorm: 548827 2 Tablet(s) PO BID 04/25/2015 01/18/2016 Inactive labetalol 100 mg tablet RxNorm: 598524 1 Tablet(s) PO BID 04/09/2015 04/23/2016 Inactive omeprazole 20 mg capsule,delayed release RxNorm: 995107 1 Tablet(s) PO daily 1 Capsule(s) PO daily 03/20/2015 12/10/2015 Inactive Carafate 1 gram tablet RxNorm: 837361 Tablet(s) PO UD 4 times daily x 1 week and then PRN 02/27/2015 02/21/2016 Inactive Xanax 0.25 mg tablet RxNorm: 488013 1 Tablet(s) PO BID PRN as needed 02/08/2015 06/06/2015 Inactive [SAVINGS FOR UNINSURED PATIENTS -- BIN:268121, PCN: ASPROD1, Group: [id number], ID# [id number], Process claim through Able Device, for questions: . THIS IS NOT INSURANCE.] furosemide 20 mg tablet RxNorm: 054078 1 Tablet(s) PO daily as needed for swelling 10/25/2014 02/21/2015 Inactive ok to fill by Dr. Franklin 10-25-14 Xanax 0.25 mg tablet RxNorm: 657793 1 Tablet(s) PO BID PRN as needed 09/25/2014 01/21/2015 Inactive [SAVINGS FOR UNINSURED PATIENTS -- BIN:844411, PCN: ASPROD1, Group: AMGriselda, ID# [id number], Process claim through Able Device, for questions: . THIS IS NOT INSURANCE.] pravastatin 10 mg tablet RxNorm: 929124 TAKE 1 TABLET BY MOUTH EVERY NIGHT 09/06/2014 04/03/2015 Inactive Generic For:PRAVACHOL 10 MG TABLET tramadol 50 mg tablet RxNorm: 935847 TAKE 2 TABLETS BY MOUTH TWICE DAILY 08/02/2014 01/15/2016 Inactive Generic For:ULTRAM 50 MG TABLET N O T I C E Last quantity doesn't match original quantity(Response to an electronic controlled substance refill request - RxReferenceNumber: [id number]) tramadol 50 mg tablet RxNorm: 969253 2 Tablet(s) PO BID 08/01/2014 08/02/2014 Inactive acyclovir 400 mg tablet RxNorm: 661820 2 Tablet(s) PO QID 07/16/2014 07/25/2014 Inactive sertraline 100 mg tablet RxNorm: 198167 1 Tablet(s) PO BID 1 Tablet(s) PO BID 06/13/2014 12/09/2014 Inactive sertraline 100 mg tablet RxNorm: 000078 1 Tablet(s) PO BID 06/13/2014 06/12/2014 Inactive magnesium oxide 400 mg tablet RxNorm: 135039 1 Tablet(s) PO daily 05/25/2014 2014 Inactive ropinirole 1 mg tablet RxNorm: 611491 1 Tablet(s) PO QPM 05/25/2014 05/19/2015 Inactive amlodipine 5 mg tablet RxNorm: 026409 1 Tablet(s) PO BID 05/25/2014 05/19/2015 Inactive prednisone 10 mg tablets in a dose pack RxNorm: 292385 1 Tablet(s) PO UD 04/06/2014 04/10/2014 Inactive 6-5-4-3-2-1 Xanax 0.25 mg tablet RxNorm: 817579 1 Tablet(s) PO BID PRN as needed 04/04/2014 07/02/2014 Inactive [SAVINGS FOR UNINSURED PATIENTS -- BIN:137496, PCN: ASPROD1, Group: [id number], ID# [id number], Process claim through Able Device, for questions: . THIS IS NOT INSURANCE.] prednisone 20 mg tablet RxNorm: 550468 3 Tablet(s) PO daily 04/02/2014 04/05/2014 Inactive [SAVINGS FOR UNINSURED PATIENTS -- BIN:516768, PCN: ASPROD1, Group: [id number], ID# [id number], Process claim through MedImpact, for questions: . THIS IS NOT INSURANCE.] cefdinir 300 mg capsule RxNorm: 929807 1 Capsule(s) PO BID 04/02/2014 04/11/2014 Inactive [SAVINGS FOR UNINSURED PATIENTS -- BIN:693283, PCN: ASPROD1, Group: [id number], ID# [id number], Process claim through MedImpact, for questions: . THIS IS NOT INSURANCE.] Kenalog 40 mg/mL suspension for injection RxNorm: 4139926 Milliliter(s) Inj 04/02/2014 04/02/2014 Inactive [SAVINGS FOR UNINSURED PATIENTS -- BIN:863442, PCN: ASPROD1, Group: [id number], ID# [id number], Process claim through MedImpact, for questions: . THIS IS NOT INSURANCE.] ceftriaxone 500 mg solution for injection RxNorm: 953260 Inj 04/02/2014 04/02/2014 Inactive [SAVINGS FOR UNINSURED PATIENTS -- BIN:474790, PCN: ASPROD1, Group: [id number], ID# [id number], Process claim through [employer]Impact, for questions: . THIS IS NOT INSURANCE.] albuterol sulfate 2.5 mg/0.5 mL solution for nebulization RxNorm: 603915 1 treatment INH QID and as needed for dyspnea 04/02/2014 05/31/2014 Inactive [SAVINGS FOR UNINSURED PATIENTS -- BIN:959377, PCN: ASPROD1, Group: [id number], ID# [id number], Process claim through MedImpact, for questions: . THIS IS NOT INSURANCE.] azithromycin 500 mg tablet RxNorm: 500330 1 Tablet(s) PO daily 04/02/2014 04/06/2014 Inactive [SAVINGS FOR UNINSURED PATIENTS -- BIN:110929, PCN: ASPROD1, Group: [id number], ID# [id number], Process claim through MedImpact, for questions: . THIS IS NOT INSURANCE.] omeprazole 20 mg capsule,delayed release RxNorm: 753954 1 Tablet(s) PO daily 1 Capsule(s) PO daily 02/26/2014 06/25/2014 Inactive Xanax 0.25 mg tablet RxNorm: 347524 1 Tablet(s) PO BID PRN as needed 02/01/2014 04/03/2014 Inactive [SAVINGS FOR UNINSURED PATIENTS -- BIN:350732, PCN: ASPROD1, Group: [id number], ID# [id number], Process claim through MedImpact, for questions: . THIS IS NOT INSURANCE.] Xanax 0.25 mg tablet RxNorm: 400351 1 Tablet(s) PO HS PRN as needed 01/04/2014 01/31/2014 Inactive [SAVINGS FOR UNINSURED PATIENTS -- BIN:857969, PCN: ASPROD1, Group: [id number], ID# [id number], Process claim through MedImpact, for questions: . THIS IS NOT INSURANCE.] pravastatin 10 mg tablet RxNorm: 024830 1 Tablet(s) PO QHS 12/21/2013 12/20/2013 Inactive pravastatin 10 mg tablet RxNorm: 880638 1 Tablet(s) PO QHS 12/21/2013 07/18/2014 Inactive [SAVINGS FOR UNINSURED PATIENTS -- BIN:425700, PCN: ASPROD1, Group: [id number], ID# [id number], Process claim through MedImpact, for questions: . THIS IS NOT INSURANCE.] Hytrin 1 mg tablet RxNorm: 977653 1 Tablet(s) PO BID 12/21/2013 04/08/2015 Inactive [SAVINGS FOR UNINSURED PATIENTS -- BIN:000618, PCN: ASPROD1, Group: [id number], ID# [id number], Process claim through MedImpact, for questions: . THIS IS NOT INSURANCE.] Hytrin 1 mg tablet RxNorm: 861964 1 Tablet(s) PO daily 12/18/2013 12/20/2013 Inactive [SAVINGS FOR UNINSURED PATIENTS -- BIN:[id number], PCN: ASPROD1, Group: [id number], ID# [id number], Process claim through MedImpact, for questions: . THIS IS NOT INSURANCE.] sertraline 100 mg tablet RxNorm: 939563 1 Tablet(s) PO QHS 12/14/2013 12/08/2014 Inactive [SAVINGS FOR UNINSURED PATIENTS -- BIN:[id number], PCN: ASPROD1, Group: [id number], ID# [id number], Process claim through MedImpact, for questions: . THIS IS NOT INSURANCE.] Xanax 0.25 mg tablet RxNorm: 303107 1 Tablet(s) PO HS PRN as needed 12/13/2013 01/03/2014 Inactive [SAVINGS FOR UNINSURED PATIENTS -- BIN:[id number], PCN: ASPROD1, Group: [id number], ID# [id number], Process claim through MedImpact, for questions: . THIS IS NOT INSURANCE.] tramadol 50 mg tablet RxNorm: 243218 2 Tablet(s) PO BID 11/08/2013 04/24/2015 Inactive Xanax 0.25 mg tablet RxNorm: 910401 1 Tablet(s) PO HS PRN as needed 10/19/2013 10/18/2013 Inactive Xanax 0.25 mg tablet RxNorm: 249007 1 Tablet(s) PO HS PRN as needed 10/19/2013 12/12/2013 Inactive Carafate 1 gram tablet RxNorm: 329035 Tablet(s) PO dissolve 1 tab QID x 1 week, then TID x 1 week, then BID x 1 week 09/07/2013 02/26/2015 Inactive omeprazole 20 mg capsule,delayed release RxNorm: 610226 1 Capsule(s) PO daily 09/07/2013 09/06/2013 Inactive omeprazole 20 mg capsule,delayed release RxNorm: 858712 1 Capsule(s) PO daily 09/07/2013 02/26/2014 Inactive prednisone 10 mg tablet RxNorm: 391165 1 Tablet(s) PO 08/25/2013 12/13/2013 Inactive prednisone taper Zithromax Z-Bon 250 mg tablet RxNorm: 667341 Tablet(s) PO as directed 08/25/2013 12/13/2013 Inactive Zithromax Z-Bon 250 mg tablet RxNorm: 050860 Tablet(s) PO as directed 08/04/2013 08/24/2013 Inactive Xanax 0.25 mg tablet RxNorm: 142545 1 Tablet(s) PO HS PRN 08/01/2013 10/18/2013 Inactive Kenalog 40 mg/mL suspension for injection RxNorm: 6026751 Milliliter(s) Inj 08/01/2013 08/01/2013 Inactive tramadol 50 mg tablet RxNorm: 593982 2 Tablet(s) PO BID 05/02/2013 11/07/2013 Inactive carvedilol 25 mg tablet RxNorm: 736743 1 Tablet(s) PO BID 05/02/2013 12/13/2013 Inactive magnesium oxide 400 mg tablet RxNorm: 558932 1 Tablet(s) PO daily 05/02/2013 04/26/2014 Inactive furosemide 20 mg tablet RxNorm: 587159 2 Tablet(s) PO daily 05/02/2013 2014 Inactive amlodipine 5 mg tablet RxNorm: 566220 1 Tablet(s) PO BID 05/02/2013 04/26/2014 Inactive sertraline 100 mg tablet RxNorm: 416365 1 Tablet(s) PO BID 05/02/2013 12/13/2013 Inactive ropinirole 1 mg tablet RxNorm: 101233 1 Tablet(s) PO QPM 05/02/2013 04/26/2014 Inactive pantoprazole 40 mg tablet,delayed release RxNorm: 688282 1 Tablet(s) PO daily 05/02/2013 2014 Inactive gabapentin 600 mg tablet RxNorm: 276311 1 Tablet(s) PO BID 05/02/2013 2014 Inactive aspirin 81 mg tablet,delayed release RxNorm: 326607 1 Tablet(s) PO daily No Start Date Active ferrous fumarate 325 mg (106 mg iron) tablet RxNorm: 715285 1 Tablet(s) PO daily No Start Date 2014 Inactive amlodipine 5 mg tablet RxNorm: 787983 1 Tablet(s) PO BID No Start Date 05/01/2013 Inactive Vitamin B-12 2,500 mcg sublingual tablet RxNorm: 203045 1 Tablet(s) SL daily No Start Date 2014 Inactive Zithromax Z-Bon 250 mg tablet RxNorm: 953915 Tablet(s) PO as directed No Start Date 08/03/2013 Inactive sertraline 100 mg tablet RxNorm: 171009 1 Tablet(s) PO BID No Start Date 05/01/2013 Inactive Hytrin 1 mg tablet RxNorm: 807067 1 Tablet(s) PO BID No Start Date 12/17/2013 Inactive potassium chloride ER 10 mEq capsule,extended release RxNorm: 822480 1 Capsule(s) PO QDAY PRN No Start Date 06/17/2016 Inactive Xanax 0.25 mg tablet RxNorm: 060566 1 Tablet(s) PO HS PRN No Start Date 07/31/2013 Inactive gabapentin 600 mg tablet RxNorm: 482771 1 Tablet(s) PO BID No Start Date 05/01/2013 Inactive ropinirole 1 mg tablet RxNorm: 297525 1 Tablet(s) PO QPM No Start Date 05/01/2013 Inactive Vitamin D3 1,000 unit tablet RxNorm: 903088 2 Tablet(s) PO daily No Start Date 09/11/2015 Inactive furosemide 20 mg tablet RxNorm: 624722 1 Tablet(s) PO BID No Start Date 05/01/2013 Inactive tramadol 50 mg tablet RxNorm: 368458 2 Tablet(s) PO BID No Start Date 05/01/2013 Inactive Carafate 1 gram tablet RxNorm: 018025 Tablet(s) PO dissolve 1 tab QID x 1 week, then TID x 1 week, then BID x 1 week No Start Date 09/06/2013 Inactive pantoprazole 40 mg tablet,delayed release RxNorm: 716794 1 Tablet(s) PO daily No Start Date 05/01/2013 Inactive montelukast 10 mg tablet RxNorm: 351097 1 Tablet(s) PO QHS No Start Date 04/23/2016 Inactive magnesium oxide 400 mg tablet RxNorm: 957124 1 Tablet(s) PO daily No Start Date 05/01/2013 Inactive prednisone 10 mg tablet RxNorm: 950576 1 Tablet(s) PO No Start Date 08/24/2013 Inactive prednisone taper carvedilol 25 mg tablet RxNorm: 032231 1 Tablet(s) PO BID No Start Date 05/01/2013 Inactive baclofen 10 mg tablet RxNorm: 892085 2 Tablet(s) PO daily No Start Date 12/13/2013 Inactive Vitamin B Complex capsule RxNorm: 1 Capsule(s) PO daily No Start Date 2014 Inactive Medication Administered Medication Codes Instructions Start Date Status Kenalog 40 mg/mL suspension for injection RxNorm: 2824274 Milliliter 09/15/2016 No longer Active Kenalog 40 mg/mL suspension for injection RxNorm: 8586863 Milliliter 04/02/2014 No longer Active ceftriaxone 500 mg solution for injection RxNorm: 719891 04/02/2014 No longer Active Kenalog 40 mg/mL suspension for injection RxNorm: 7387529 Milliliter 08/01/2013 No longer Active Immunizations Vaccine Codes Date Status Influenza CVX: 141 01/08/2016 completed Pneumococcal (Adult) CVX: 133 01/08/2016 completed Influenza CVX: 141 01/26/2013 completed Pneumococcal CVX: 33 02/26/2012 completed Tetanus, Diptheria, Pertussis CVX: 113 02/26/2012 completed Tetanus/Diptheria CVX: 113 02/26/2012 completed Assessments Condition Codes Effective Dates Fusion of spine, lumbar region ICD-10: M43.26 ICD-9: 718.58 09/26/2018 Low back pain ICD-10: M54.5 ICD-9: 724.2 09/26/2018 Spinal instabilities, lumbar region ICD-10: M53.2X6 ICD-9: 724.9 09/26/2018 Cough ICD-10: R05 ICD-9: 786.2 07/27/2018 Essential (primary) hypertension ICD-10: I10 ICD-9: 401.1 07/27/2018 Generalized anxiety disorder ICD-10: F41.1 ICD-9: 308.0 07/27/2018 Chronic kidney disease, stage 3 (moderate) ICD-10: N18.3 ICD-9: 585.3 07/27/2018 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 ICD-9: 703.8 10/06/2017 Localized edema ICD-10: R60.0 ICD-9: 782.3 10/06/2017 Chronic pain syndrome ICD-10: G89.4 ICD-9: 338.4 07/23/2017 Essential (primary) hypertension ICD-10: I10 ICD-9: 401.9 07/23/2017 Other specified abnormal findings of blood chemistry ICD-10: R79.89 ICD-9: 790.92 06/23/2017 Chest pain, unspecified ICD-10: R07.9 ICD-9: 786.50 06/01/2017 Gastro-esophageal reflux disease without esophagitis ICD-10: K21.9 ICD-9: 530.81 05/11/2017 Contusion of right lower leg, initial encounter ICD-10: S80.11XA ICD-9: 924.5 10/30/2016 Allergic rhinitis, unspecified ICD-10: J30.9 ICD-9: 477.9 09/15/2016 Pain in right hand ICD-10: M79.641 ICD-9: 729.5 06/19/2016 Pain in left hand ICD-10: M79.642 ICD-9: 729.5 06/19/2016 Major depressive disorder, recurrent, moderate ICD-10: F33.1 ICD-9: 296.32 02/25/2016 Shortness of breath ICD-10: R06.02 ICD-9: 786.05 02/25/2016 Restless legs syndrome ICD-10: G25.81 ICD-9: 333.94 01/28/2016 Myalgia ICD-10: M79.1 ICD-9: 729.1 01/28/2016 Encounter for immunization ICD-10: Z23 ICD-9: V06.6 01/08/2016 Insomnia, unspecified ICD-10: G47.00 ICD-9: 780.52 11/14/2015 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 ICD-9: 082.41 10/10/2015 Irritable bowel syndrome with diarrhea ICD-10: K58.0 ICD-9: 564.1 10/10/2015 Other fatigue ICD-10: R53.83 ICD-9: 780.79 09/12/2015 Iron deficiency ICD-10: E61.1 ICD-9: 280.9 09/12/2015 Bitten or stung by nonvenomous insect and other nonvenomous arthropods, initial encounter ICD-10: W57.XXXA ICD-9: 919.4 09/12/2015 Other vitamin B12 deficiency anemias ICD-10: D51.8 ICD-9: 281.1 09/12/2015 Vitamin D deficiency, unspecified ICD-10: E55.9 ICD-9: 268.9 09/12/2015 ESSENTIAL HYPERTENSION ICD-9: 401.9 10/05/2014 Easy bruising ICD-9: 782.9 09/07/2014 Iron deficiency anemia ICD-9: 280.9 09/07/2014 Chronic kidney disease, stage 3 ICD-9: 585.3 09/07/2014 Shingles ICD-9: 053.9 07/16/2014 PNEUMONIA (CAP) ICD-9: 486 04/02/2014 COUGH ICD-9: 786.2 04/02/2014 OTH SCREENING MAMMOGRAM ICD-9: V76.12 12/27/2013 Rib pain on left side ICD-9: 786.50 12/14/2013 EDEMA ICD-9: 782.3 12/14/2013 ALLERGIC RHINITIS ICD-9: 477.9 08/01/2013 Elbow pain, right ICD-9: 719.42 08/01/2013 Urge incontinence ICD-9: 788.31 08/01/2013 ESOPHAGEAL REFLUX ICD-9: 530.81 08/01/2013 Snoring ICD-9: 786.09 08/01/2013 HYPERLIPIDEMIA ICD-9: 272.4 05/02/2013 Restless leg ICD-9: 333.94 04/18/2013 Reason For Visit Reason For Visit Effective Dates Notes back pain 09/26/2018 edema 07/27/2018 edema 01/25/2018 edema 10/06/2017 edema 09/27/2017 blood pressure followup 07/23/2017 chest pain/pressure 06/01/2017 abdominal pain 05/11/2017 sores 10/30/2016 anxiety 04/20/2016 anxiety 02/25/2016 anxiety 01/28/2016 vaccination against influenza 01/08/2016 fatigue 11/14/2015 fatigue 10/10/2015 fatigue 09/12/2015 blood pressure followup 04/09/2015 shortness of breath 10/05/2014 fatigue 09/07/2014 eyelid pain 07/16/2014 cough 04/02/2014 101.5 Wednesday diaphoresis 12/14/2013 cough 08/01/2013 hypertension 05/02/2013 hypertension 04/18/2013 Results Observation Observation Code Item Item Code Result Date Mayda [id number] MAYDA (MORTEZA) SCREEN NONE DETECTED 06/25/2017 Ra Factor Ilx366 RA FACTOR <10 IU/ml 06/24/2017 D-Dimer D-DIMER 675 ng/mL 06/09/2017 D-Dimer COMMENT 06/09/2017 Tsh Ord6 TSH (3rd IS) 2.05 uIU/mL 06/08/2017 Cbc With Differential Ord2 WBC 5.65 K/ul 06/01/2017 Cbc With Differential Ord2 RBC 4.82 M/ul 06/01/2017 Cbc With Differential Ord2 HGB 13.8 g/dl 06/01/2017 Cbc With Differential Ord2 HCT 41.9 % 06/01/2017 Cbc With Differential Ord2 Neut% 53.7 % 06/01/2017 Cbc With Differential Ord2 MCV 86.9 fl 06/01/2017 Cbc With Differential Ord2 Lymph% 38.4 % 06/01/2017 Cbc With Differential Ord2 MCH 28.6 pg 06/01/2017 Cbc With Differential Ord2 Bradford% 5.8 % 06/01/2017 Cbc With Differential Ord2 MCHC 32.9 pg 06/01/2017 Cbc With Differential Ord2 Eos% 1.2 % 06/01/2017 Cbc With Differential Ord2 PLT 270 K/ul 06/01/2017 Cbc With Differential Ord2 Baso% 0.9 % 06/01/2017 Cbc With Differential Ord2 RDW 13.5 % 06/01/2017 Cbc With Differential Ord2 Neut ABS# 3.03 K/ul 06/01/2017 Cbc With Differential Ord2 Lymph ABS# 2.17 K/ul 06/01/2017 Cbc With Differential Ord2 Bradford ABS# 0.3 K/ul 06/01/2017 Cbc With Differential Ord2 Eos ABS# 0.1 K/ul 06/01/2017 Cbc With Differential Ord2 Baso ABS# 0.1 K/ul 06/01/2017 Comp Metabolic Dzw523 NA 137 mEq/L 06/01/2017 Comp Metabolic Vop397 K 3.7 mEq/L 06/01/2017 Comp Metabolic Edv222 CL 100 mEq/L 06/01/2017 Comp Metabolic Suh401 CO2 28.0 mEq/L 06/01/2017 Comp Metabolic Paf336 ANION GAP 13 06/01/2017 Comp Metabolic Nqp891 GLUCOSE 94 mg/dL 06/01/2017 Comp Metabolic Qbs245 Creat 1.3 mg/dL 06/01/2017 Comp Metabolic Mca198 eGFR 45 ml/min/1.73m2 06/01/2017 Comp Metabolic Uqb661 BUN 12 mg/dL 06/01/2017 Comp Metabolic Kwk725 B/C Ratio 9.6 Ratio 06/01/2017 Comp Metabolic Yeb451 CALCIUM 9.5 mg/dL 06/01/2017 Comp Metabolic Nwa229 ALK PHOS 77 U/L 06/01/2017 Comp Metabolic Iyn177 AST(SGOT) 17 U/L 06/01/2017 Comp Metabolic Kxb485 ALT(SGPT) 15 U/L 06/01/2017 Comp Metabolic Hti531 BILI T 0.5 mg/dL 06/01/2017 Comp Metabolic Kxw042 ALBUMIN 4.4 g/dL 06/01/2017 Comp Metabolic Vxn040 TPRO 7.0 g/dL 06/01/2017 Comp Metabolic Tdc326 GLOB 2.6 g/dL 06/01/2017 Comp Metabolic Wmx616 A/G Ratio 1.7 Ratio 06/01/2017 Comp Metabolic Dsb200 Osmo 273 mOsmo 06/01/2017 Mayda [id number] MAYDA (MORTEZA) SCREEN NONE DETECTED 06/22/2016 C-Reactive Protein Qnt Crqnt CRP 0.3 mg/dl 06/19/2016 Sed Rate Ord21 ESR 11 mm/hr 06/19/2016 Ra Factor Tdh930 RA FACTOR <10 IU/ml 06/19/2016 Sed Rate Ord21 ESR 14 mm/hr 02/25/2016 C-Reactive Protein Qnt Crqnt CRP 0.3 mg/dl 02/25/2016 Comp Metabolic Ufc048 NA 136 mEq/L 02/25/2016 Comp Metabolic Sld016 K 3.9 mEq/L 02/25/2016 Comp Metabolic Zfp186 CL 103 mEq/L 02/25/2016 Comp Metabolic Xws348 CO2 27.0 mEq/L 02/25/2016 Comp Metabolic Yzj702 ANION GAP 10 02/25/2016 Comp Metabolic Myw079 GLUCOSE 82 mg/dL 02/25/2016 Comp Metabolic Isd311 Creat 1.3 mg/dL 02/25/2016 Comp Metabolic Qii889 eGFR 45 ml/min/1.73m2 02/25/2016 Comp Metabolic Rcd259 BUN 13 mg/dL 02/25/2016 Comp Metabolic Bwl651 B/C Ratio 10.3 Ratio 02/25/2016 Comp Metabolic Ttl887 CALCIUM 9.5 mg/dL 02/25/2016 Comp Metabolic Qvb615 ALK PHOS 70 U/L 02/25/2016 Comp Metabolic Tef915 AST(SGOT) 17 U/L 02/25/2016 Comp Metabolic Mku548 ALT(SGPT) 13 U/L 02/25/2016 Comp Metabolic Rig214 BILI T 0.4 mg/dL 02/25/2016 Comp Metabolic Lva365 ALBUMIN 4.2 g/dL 02/25/2016 Comp Metabolic Kar934 TPRO 6.6 g/dL 02/25/2016 Comp Metabolic Arj197 GLOB 2.4 g/dL 02/25/2016 Comp Metabolic Dqk392 A/G Ratio 1.7 Ratio 02/25/2016 Comp Metabolic Mlo664 Osmo 271 mOsmo 02/25/2016 Cbc With Differential Ord2 WBC 5.16 K/ul 02/25/2016 Cbc With Differential Ord2 RBC 4.50 M/ul 02/25/2016 Cbc With Differential Ord2 HGB 13.1 g/dl 02/25/2016 Cbc With Differential Ord2 HCT 38.9 % 02/25/2016 Cbc With Differential Ord2 Neut% 59.3 % 02/25/2016 Cbc With Differential Ord2 MCV 86.4 fl 02/25/2016 Cbc With Differential Ord2 Lymph% 31.4 % 02/25/2016 Cbc With Differential Ord2 MCH 29.1 pg 02/25/2016 Cbc With Differential Ord2 Bradford% 6.8 % 02/25/2016 Cbc With Differential Ord2 MCHC 33.7 pg 02/25/2016 Cbc With Differential Ord2 Eos% 1.9 % 02/25/2016 Cbc With Differential Ord2 PLT 231 K/ul 02/25/2016 Cbc With Differential Ord2 Baso% 0.6 % 02/25/2016 Cbc With Differential Ord2 RDW 13.2 % 02/25/2016 Cbc With Differential Ord2 Neut ABS# 3.06 K/ul 02/25/2016 Cbc With Differential Ord2 Lymph ABS# 1.62 K/ul 02/25/2016 Cbc With Differential Ord2 Bradford ABS# 0.4 K/ul 02/25/2016 Cbc With Differential Ord2 Eos ABS# 0.1 K/ul 02/25/2016 Cbc With Differential Ord2 Baso ABS# 0.0 K/ul 02/25/2016 Tsh Ord6 hTSH II 1.63 uIU/mL 02/25/2016 [place] Spotted Fever Igg/Igm [id number] BENIGNO MT SPOTTED FEVER IGM EIA . 09/17/2015 [place] Spotted Fever Igg/Igm 657539 RMSF, IGM 0.27 index 09/17/2015 [place] Spotted Fever Igg/Igm 128490 BENIGNO MT SPOTTED FEVER IGG EIA FLEX . 09/17/2015 [place] Spotted Fever Igg/Igm 397294 RMSF, IGG SCREEN-FLEX Negative 09/17/2015 Ehrlichia Chaffeensis Antibody Igm [id number] EHRLICHIA CHAFFEENSIS IGM < 1:16 09/16/2015 Ehrlichia Chaffeensis Antibody Igg [id number] EHRLICHIA CHAFFEENSIS IGG 1:256 09/16/2015 Lymes Disease Total Antibodies With Western Blot Reflex [id number] B. BURGDORFERI, IGG/IGM 0.10 LI 09/14/2015 Lymes Disease Total Antibodies With Western Blot Reflex [id number] 09/14/2015 Vitamin D 25 Oh Doy3888 VITAMIN D, 25 HYDROXY 59.60 ng/mL 09/13/2015 Sed Rate Ord21 ESR 10 mm/hr 09/12/2015 Comp Metabolic Kfw864 NA 139 mEq/L 09/12/2015 Comp Metabolic Afc958 K 3.8 mEq/L 09/12/2015 Comp Metabolic Acb781 CL 103 mEq/L 09/12/2015 Comp Metabolic Cpg747 CO2 27.0 mEq/L 09/12/2015 Comp Metabolic Yqu935 ANION GAP 13 09/12/2015 Comp Metabolic Dea620 GLUCOSE 91 mg/dL 09/12/2015 Comp Metabolic Tmk617 Creat 1.2 mg/dL 09/12/2015 Comp Metabolic Zwl853 eGFR 47 ml/min/1.73m2 09/12/2015 Comp Metabolic Ydr850 BUN 20 mg/dL 09/12/2015 Comp Metabolic Rkp444 B/C Ratio 16.3 Ratio 09/12/2015 Comp Metabolic Qlz518 CALCIUM 9.3 mg/dL 09/12/2015 Comp Metabolic Ooz044 ALK PHOS 55 U/L 09/12/2015 Comp Metabolic Exr666 AST(SGOT) 19 U/L 09/12/2015 Comp Metabolic Yyn353 ALT(SGPT) 14 U/L 09/12/2015 Comp Metabolic Xbk397 BILI T 0.6 mg/dL 09/12/2015 Comp Metabolic Pgv468 ALBUMIN 4.3 g/dL 09/12/2015 Comp Metabolic Lpu263 TPRO 6.8 g/dL 09/12/2015 Comp Metabolic Bao770 GLOB 2.5 g/dL 09/12/2015 Comp Metabolic Tpn996 A/G Ratio 1.8 Ratio 09/12/2015 Comp Metabolic Yxb533 Osmo 280 mOsmo 09/12/2015 B12 Wal511 B12 >1500.00 pg/ml 09/12/2015 Cbc With Differential Ord2 WBC 4.22 K/ul 09/12/2015 Cbc With Differential Ord2 RBC 4.70 M/ul 09/12/2015 Cbc With Differential Ord2 HGB 13.6 g/dl 09/12/2015 Cbc With Differential Ord2 HCT 41.1 % 09/12/2015 Cbc With Differential Ord2 Neut% 60.7 % 09/12/2015 Cbc With Differential Ord2 MCV 87.4 fl 09/12/2015 Cbc With Differential Ord2 Lymph% 31.5 % 09/12/2015 Cbc With Differential Ord2 MCH 28.9 pg 09/12/2015 Cbc With Differential Ord2 Bradford% 5.9 % 09/12/2015 Cbc With Differential Ord2 MCHC 33.1 pg 09/12/2015 Cbc With Differential Ord2 Eos% 1.2 % 09/12/2015 Cbc With Differential Ord2 PLT 215 K/ul 09/12/2015 Cbc With Differential Ord2 Baso% 0.7 % 09/12/2015 Cbc With Differential Ord2 RDW 13.4 % 09/12/2015 Cbc With Differential Ord2 Neut ABS# 2.56 K/ul 09/12/2015 Cbc With Differential Ord2 Lymph ABS# 1.33 K/ul 09/12/2015 Cbc With Differential Ord2 Bradford ABS# 0.3 K/ul 09/12/2015 Cbc With Differential Ord2 Eos ABS# 0.1 K/ul 09/12/2015 Cbc With Differential Ord2 Baso ABS# 0.0 K/ul 09/12/2015 Tsh Ord6 hTSH II 1.88 uIU/mL 09/12/2015 Review of Systems System Result Effective Dates Constitutional No anorexia 09/26/2018 Constitutional No night sweats 09/26/2018 Constitutional No chills 09/26/2018 Constitutional No diaphoresis 09/26/2018 Constitutional fatigue 09/26/2018 Constitutional No fever 09/26/2018 Constitutional No malaise 09/26/2018 Eyes No vision change 09/26/2018 Ears/Nose/Throat/Neck No dental pain 09/26/2018 Ears/Nose/Throat/Neck No nasal allergies 09/26/2018 Ears/Nose/Throat/Neck No nasal discharge 09/26/2018 Ears/Nose/Throat/Neck No sore throat 09/26/2018 Ears/Nose/Throat/Neck No otitis media 09/26/2018 Ears/Nose/Throat/Neck No otorrhea 09/26/2018 Cardiovascular No chest pain/pressure 09/26/2018 Cardiovascular edema 09/26/2018 Cardiovascular hypertension 09/26/2018 Respiratory No chest congestion 09/26/2018 Respiratory No chest tightness 09/26/2018 Respiratory cough 09/26/2018 Gastrointestinal No constipation 09/26/2018 Gastrointestinal No diarrhea 09/26/2018 Genitourinary/Nephrology No dysuria 09/26/2018 Genitourinary/Nephrology No hematuria 09/26/2018 Genitourinary/Nephrology No urinary urgency 09/26/2018 Genitourinary/Nephrology No urinary frequency 09/26/2018 Genitourinary/Nephrology No urinary incontinence 09/26/2018 Musculoskeletal back pain 09/26/2018 Musculoskeletal No bone pain 09/26/2018 Musculoskeletal No muscle weakness 09/26/2018 Musculoskeletal myalgias 09/26/2018 Psychiatric anxiety 09/26/2018 Psychiatric No depression 09/26/2018 Constitutional No anorexia 07/27/2018 Constitutional No night sweats 07/27/2018 Constitutional No chills 07/27/2018 Constitutional No diaphoresis 07/27/2018 Constitutional No fatigue 07/27/2018 Constitutional No fever 07/27/2018 Constitutional No insomnia 07/27/2018 Constitutional No malaise 07/27/2018 Eyes No vision change 07/27/2018 Ears/Nose/Throat/Neck No dental pain 07/27/2018 Ears/Nose/Throat/Neck No nasal allergies 07/27/2018 Ears/Nose/Throat/Neck No nasal discharge 07/27/2018 Ears/Nose/Throat/Neck No sore throat 07/27/2018 Ears/Nose/Throat/Neck No otitis media 07/27/2018 Ears/Nose/Throat/Neck No otorrhea 07/27/2018 Cardiovascular No chest pain/pressure 07/27/2018 Cardiovascular edema 07/27/2018 Cardiovascular hypertension 07/27/2018 Respiratory No chest congestion 07/27/2018 Respiratory No chest tightness 07/27/2018 Respiratory cough 07/27/2018 Gastrointestinal No constipation 07/27/2018 Gastrointestinal No diarrhea 07/27/2018 Genitourinary/Nephrology No dysuria 07/27/2018 Genitourinary/Nephrology No hematuria 07/27/2018 Genitourinary/Nephrology No urinary urgency 07/27/2018 Genitourinary/Nephrology No urinary frequency 07/27/2018 Genitourinary/Nephrology No urinary incontinence 07/27/2018 Musculoskeletal No back pain 07/27/2018 Musculoskeletal No bone pain 07/27/2018 Musculoskeletal No joint complaint 07/27/2018 Musculoskeletal No muscle weakness 07/27/2018 Musculoskeletal No myalgias 07/27/2018 Dermatologic No rash 07/27/2018 Dermatologic No sores 07/27/2018 Psychiatric anxiety 07/27/2018 Psychiatric No depression 07/27/2018 Constitutional No anorexia 01/25/2018 Constitutional No night sweats 01/25/2018 Constitutional No chills 01/25/2018 Constitutional No diaphoresis 01/25/2018 Constitutional No fatigue 01/25/2018 Constitutional No fever 01/25/2018 Constitutional No insomnia 01/25/2018 Constitutional No malaise 01/25/2018 Constitutional No weight loss 01/25/2018 Constitutional No obesity 01/25/2018 Eyes No vision change 01/25/2018 Ears/Nose/Throat/Neck No dental pain 01/25/2018 Ears/Nose/Throat/Neck No nasal allergies 01/25/2018 Ears/Nose/Throat/Neck No nasal discharge 01/25/2018 Ears/Nose/Throat/Neck No otitis media 01/25/2018 Ears/Nose/Throat/Neck No otorrhea 01/25/2018 Ears/Nose/Throat/Neck No sore throat 01/25/2018 Cardiovascular No chest pain/pressure 01/25/2018 Respiratory No chest congestion 01/25/2018 Respiratory No chest tightness 01/25/2018 Respiratory No cigarette smoking 01/25/2018 Respiratory No cough 01/25/2018 Gastrointestinal No constipation 01/25/2018 Gastrointestinal No diarrhea 01/25/2018 Genitourinary/Nephrology No dysuria 01/25/2018 Genitourinary/Nephrology No hematuria 01/25/2018 Genitourinary/Nephrology No urinary urgency 01/25/2018 Genitourinary/Nephrology No urinary frequency 01/25/2018 Genitourinary/Nephrology No urinary incontinence 01/25/2018 Musculoskeletal No back pain 01/25/2018 Musculoskeletal No bone pain 01/25/2018 Musculoskeletal No joint complaint 01/25/2018 Musculoskeletal No muscle weakness 01/25/2018 Musculoskeletal No myalgias 01/25/2018 Dermatologic No rash 01/25/2018 Dermatologic No sores 01/25/2018 Psychiatric No anxiety 01/25/2018 Psychiatric No depression 01/25/2018 Cardiovascular edema 01/25/2018 Cardiovascular hypertension 01/25/2018 Constitutional No recent illness 10/06/2017 Constitutional fatigue 10/06/2017 Constitutional weight gain 10/06/2017 Cardiovascular No dyspnea 10/06/2017 Cardiovascular edema 10/06/2017 Cardiovascular exercise intolerance 10/06/2017 Respiratory No chest congestion 10/06/2017 Respiratory No chest tightness 10/06/2017 Respiratory No cough 10/06/2017 Gastrointestinal No abdominal pain 10/06/2017 Musculoskeletal No joint complaint 10/06/2017 Musculoskeletal No muscle weakness 10/06/2017 Psychiatric No anxiety 10/06/2017 Cardiovascular fatigue 10/06/2017 Dermatologic onychodystrophy 10/06/2017 Constitutional No recent illness 09/27/2017 Constitutional fatigue 09/27/2017 Cardiovascular edema 09/27/2017 Cardiovascular No dyspnea 09/27/2017 Cardiovascular exercise intolerance 09/27/2017 Cardiovascular fatigue 09/27/2017 Respiratory No cough 09/27/2017 Respiratory No chest tightness 09/27/2017 Respiratory No chest congestion 09/27/2017 Gastrointestinal No abdominal pain 09/27/2017 Genitourinary/Nephrology urinary frequency 09/27/2017 Psychiatric No anxiety 09/27/2017 Musculoskeletal stiffness 09/27/2017 Musculoskeletal No joint complaint 09/27/2017 Musculoskeletal No muscle weakness 09/27/2017 Constitutional weight gain 09/27/2017 Constitutional No recent illness 07/23/2017 Constitutional No anorexia 07/23/2017 Constitutional No night sweats 07/23/2017 Constitutional No chills 07/23/2017 Constitutional No diaphoresis 07/23/2017 Constitutional fatigue 07/23/2017 Constitutional No fever 07/23/2017 Constitutional insomnia 07/23/2017 Constitutional No malaise 07/23/2017 Constitutional No weight loss 07/23/2017 Constitutional No weight gain 07/23/2017 Eyes No eye discharge 07/23/2017 Eyes No eye erythema 07/23/2017 Respiratory No cough 07/23/2017 Gastrointestinal No abdominal pain 07/23/2017 Gastrointestinal No constipation 07/23/2017 Gastrointestinal No diarrhea 07/23/2017 Genitourinary/Nephrology No dysuria 07/23/2017 Musculoskeletal joint complaint 07/23/2017 Dermatologic No rash 07/23/2017 Neurologic No alteration of consciousness 07/23/2017 Ears/Nose/Throat/Neck No dizziness 07/23/2017 Ears/Nose/Throat/Neck No headache 07/23/2017 Cardiovascular No chest pain/pressure 07/23/2017 Musculoskeletal myalgias 07/23/2017 Psychiatric anxiety 07/23/2017 Endocrine No dry or coarse skin 07/23/2017 Genitourinary/Nephrology urinary incontinence 07/23/2017 Constitutional No recent illness 06/01/2017 Constitutional No anorexia 06/01/2017 Constitutional No night sweats 06/01/2017 Constitutional No chills 06/01/2017 Constitutional No diaphoresis 06/01/2017 Constitutional fatigue 06/01/2017 Constitutional No fever 06/01/2017 Constitutional No insomnia 06/01/2017 Constitutional No malaise 06/01/2017 Constitutional No weight loss 06/01/2017 Constitutional No weight gain 06/01/2017 Eyes No eye discharge 06/01/2017 Eyes No eye erythema 06/01/2017 Ears/Nose/Throat/Neck dizziness 06/01/2017 Cardiovascular chest pain/pressure 06/01/2017 Cardiovascular dyspnea 06/01/2017 Cardiovascular fatigue 06/01/2017 Cardiovascular hypertension 06/01/2017 Respiratory No cough 06/01/2017 Gastrointestinal No abdominal pain 06/01/2017 Gastrointestinal No constipation 06/01/2017 Gastrointestinal No diarrhea 06/01/2017 Genitourinary/Nephrology No dysuria 06/01/2017 Musculoskeletal joint complaint 06/01/2017 Dermatologic No rash 06/01/2017 Gastrointestinal gastroesophageal reflux 06/01/2017 Neurologic No alteration of consciousness 06/01/2017 Constitutional No recent illness 05/11/2017 Constitutional No chills 05/11/2017 Constitutional No diaphoresis 05/11/2017 Constitutional No fever 05/11/2017 Eyes No eye erythema 05/11/2017 Ears/Nose/Throat/Neck No nasal discharge 05/11/2017 Ears/Nose/Throat/Neck No nasal allergies 05/11/2017 Cardiovascular No chest pain/pressure 05/11/2017 Cardiovascular No dyspnea 05/11/2017 Respiratory No cough 05/11/2017 Respiratory No chest congestion 05/11/2017 Gastrointestinal abdominal pain 05/11/2017 Gastrointestinal gas and bloating 05/11/2017 Gastrointestinal gastroesophageal reflux 05/11/2017 Gastrointestinal No vomiting 05/11/2017 Gastrointestinal nausea 05/11/2017 Dermatologic No rash 05/11/2017 Neurologic No alteration of consciousness 05/11/2017 Neurologic No mental status change 05/11/2017 Constitutional No recent illness 10/30/2016 Constitutional No anorexia 10/30/2016 Constitutional No night sweats 10/30/2016 Constitutional No chills 10/30/2016 Constitutional No diaphoresis 10/30/2016 Constitutional No fatigue 10/30/2016 Constitutional No fever 10/30/2016 Constitutional No insomnia 10/30/2016 Constitutional No malaise 10/30/2016 Constitutional No weight loss 10/30/2016 Constitutional No weight gain 10/30/2016 Dermatologic sores 10/30/2016 Cardiovascular No chest pain/pressure 10/30/2016 Cardiovascular No edema 10/30/2016 Cardiovascular No dyspnea 10/30/2016 Neurologic No alteration of consciousness 10/30/2016 Psychiatric anxiety 10/30/2016 Respiratory No cough 10/30/2016 Respiratory No dyspnea 10/30/2016 Constitutional No recent illness 04/20/2016 Constitutional No anorexia 04/20/2016 Constitutional No night sweats 04/20/2016 Constitutional No chills 04/20/2016 Constitutional diaphoresis 04/20/2016 Constitutional fatigue 04/20/2016 Constitutional No fever 04/20/2016 Constitutional No insomnia 04/20/2016 Constitutional No malaise 04/20/2016 Constitutional weight gain 04/20/2016 Eyes No eye discharge 04/20/2016 Eyes No eye erythema 04/20/2016 Ears/Nose/Throat/Neck dizziness 04/20/2016 Ears/Nose/Throat/Neck No headache 04/20/2016 Cardiovascular No chest pain/pressure 04/20/2016 Cardiovascular No dyspnea 04/20/2016 Cardiovascular No edema 04/20/2016 Respiratory No chest congestion 04/20/2016 Respiratory No cough 04/20/2016 Respiratory dyspnea on exertion 04/20/2016 Gastrointestinal No constipation 04/20/2016 Gastrointestinal No diarrhea 04/20/2016 Genitourinary/Nephrology No dysuria 04/20/2016 Musculoskeletal joint complaint 04/20/2016 Musculoskeletal myalgias 04/20/2016 Dermatologic No rash 04/20/2016 Neurologic No alteration of consciousness 04/20/2016 Psychiatric anxiety 04/20/2016 Psychiatric depression 04/20/2016 Psychiatric anxiety 02/25/2016 Psychiatric depression 02/25/2016 Endocrine No dry or coarse skin 02/25/2016 Neurologic No alteration of consciousness 02/25/2016 Constitutional No recent illness 02/25/2016 Constitutional No anorexia 02/25/2016 Constitutional No night sweats 02/25/2016 Constitutional No chills 02/25/2016 Constitutional diaphoresis 02/25/2016 Constitutional fatigue 02/25/2016 Constitutional No fever 02/25/2016 Constitutional No insomnia 02/25/2016 Constitutional No malaise 02/25/2016 Constitutional No weight loss 02/25/2016 Constitutional weight gain 02/25/2016 Genitourinary/Nephrology No dysuria 02/25/2016 Gastrointestinal No constipation 02/25/2016 Gastrointestinal No diarrhea 02/25/2016 Respiratory No cough 02/25/2016 Respiratory No chest congestion 02/25/2016 Cardiovascular No chest pain/pressure 02/25/2016 Cardiovascular No edema 02/25/2016 Cardiovascular No dyspnea 02/25/2016 Respiratory dyspnea on exertion 02/25/2016 Ears/Nose/Throat/Neck dizziness 02/25/2016 Ears/Nose/Throat/Neck No headache 02/25/2016 Eyes No eye discharge 02/25/2016 Eyes No eye erythema 02/25/2016 Musculoskeletal joint complaint 02/25/2016 Dermatologic No rash 02/25/2016 Musculoskeletal myalgias 02/25/2016 Hematologic/Lymphatic No abnormal ecchymoses 02/25/2016 Constitutional recent illness 01/28/2016 Constitutional No anorexia 01/28/2016 Constitutional No night sweats 01/28/2016 Constitutional diaphoresis 01/28/2016 Constitutional chills 01/28/2016 Constitutional fatigue 01/28/2016 Constitutional No fever 01/28/2016 Constitutional insomnia 01/28/2016 Constitutional No malaise 01/28/2016 Constitutional No weight loss 01/28/2016 Constitutional No weight gain 01/28/2016 Eyes No eye erythema 01/28/2016 Eyes No eye discharge 01/28/2016 Ears/Nose/Throat/Neck No dizziness 01/28/2016 Ears/Nose/Throat/Neck headache 01/28/2016 Ears/Nose/Throat/Neck nasal allergies 01/28/2016 Ears/Nose/Throat/Neck nasal discharge 01/28/2016 Cardiovascular No chest pain/pressure 01/28/2016 Cardiovascular No dyspnea 01/28/2016 Respiratory No cough 01/28/2016 Gastrointestinal No abdominal pain 01/28/2016 Genitourinary/Nephrology No breast complaint 01/28/2016 Musculoskeletal joint complaint 01/28/2016 Musculoskeletal arthralgia(s) 01/28/2016 Dermatologic No rash 01/28/2016 Neurologic No alteration of consciousness 01/28/2016 Psychiatric anxiety 01/28/2016 Psychiatric depression 01/28/2016 Neurologic dyskinesia or tremor 01/28/2016 Endocrine No dry or coarse skin 01/28/2016 Constitutional No recent illness 11/14/2015 Constitutional No anorexia 11/14/2015 Constitutional night sweats 11/14/2015 Constitutional No chills 11/14/2015 Constitutional No diaphoresis 11/14/2015 Constitutional fatigue 11/14/2015 Constitutional No fever 11/14/2015 Constitutional No insomnia 11/14/2015 Constitutional malaise 11/14/2015 Constitutional No weight loss 11/14/2015 Constitutional No weight gain 11/14/2015 Constitutional No obesity 11/14/2015 Eyes No eye erythema 11/14/2015 Eyes No vision change 11/14/2015 Ears/Nose/Throat/Neck No headache 11/14/2015 Ears/Nose/Throat/Neck nasal allergies 11/14/2015 Ears/Nose/Throat/Neck No nasal discharge 11/14/2015 Ears/Nose/Throat/Neck No otalgia 11/14/2015 Ears/Nose/Throat/Neck No otitis media 11/14/2015 Ears/Nose/Throat/Neck No postnasal drip 11/14/2015 Ears/Nose/Throat/Neck No sinus congestion 11/14/2015 Ears/Nose/Throat/Neck No sore throat 11/14/2015 Cardiovascular No chest pain/pressure 11/14/2015 Cardiovascular No edema 11/14/2015 Respiratory No chest congestion 11/14/2015 Respiratory No chest tightness 11/14/2015 Respiratory No cigarette smoking 11/14/2015 Respiratory No cough 11/14/2015 Respiratory dyspnea on exertion 11/14/2015 Gastrointestinal No abdominal pain 11/14/2015 Gastrointestinal No constipation 11/14/2015 Gastrointestinal diarrhea 11/14/2015 Gastrointestinal No melena 11/14/2015 Genitourinary/Nephrology No dysuria 11/14/2015 Genitourinary/Nephrology nocturia 11/14/2015 Genitourinary/Nephrology No urinary urgency 11/14/2015 Genitourinary/Nephrology No urinary frequency 11/14/2015 Genitourinary/Nephrology No urinary incontinence 11/14/2015 Genitourinary/Nephrology No urinary retention/hesitancy 11/14/2015 Musculoskeletal joint complaint 11/14/2015 Musculoskeletal No muscle weakness 11/14/2015 Musculoskeletal myalgias 11/14/2015 Dermatologic No rash 11/14/2015 Dermatologic No sores 11/14/2015 Psychiatric No anxiety 11/14/2015 Psychiatric depression 11/14/2015 Endocrine No dry or coarse skin 11/14/2015 Endocrine No cold sensitivity 11/14/2015 Endocrine No hair loss 11/14/2015 Endocrine sweating 11/14/2015 Endocrine flushing 11/14/2015 Constitutional No recent illness 10/10/2015 Constitutional No anorexia 10/10/2015 Constitutional night sweats 10/10/2015 Constitutional No chills 10/10/2015 Constitutional No diaphoresis 10/10/2015 Constitutional fatigue 10/10/2015 Constitutional No fever 10/10/2015 Constitutional No insomnia 10/10/2015 Constitutional malaise 10/10/2015 Constitutional No weight loss 10/10/2015 Constitutional No weight gain 10/10/2015 Constitutional No obesity 10/10/2015 Eyes No eye erythema 10/10/2015 Eyes No vision change 10/10/2015 Ears/Nose/Throat/Neck No headache 10/10/2015 Ears/Nose/Throat/Neck nasal allergies 10/10/2015 Ears/Nose/Throat/Neck No nasal discharge 10/10/2015 Ears/Nose/Throat/Neck No otalgia 10/10/2015 Ears/Nose/Throat/Neck No otitis media 10/10/2015 Ears/Nose/Throat/Neck No postnasal drip 10/10/2015 Ears/Nose/Throat/Neck No sinus congestion 10/10/2015 Ears/Nose/Throat/Neck No sore throat 10/10/2015 Cardiovascular No chest pain/pressure 10/10/2015 Cardiovascular No edema 10/10/2015 Respiratory No chest congestion 10/10/2015 Respiratory No chest tightness 10/10/2015 Respiratory No cigarette smoking 10/10/2015 Respiratory No cough 10/10/2015 Respiratory dyspnea on exertion 10/10/2015 Gastrointestinal No abdominal pain 10/10/2015 Gastrointestinal No constipation 10/10/2015 Gastrointestinal diarrhea 10/10/2015 Gastrointestinal No melena 10/10/2015 Genitourinary/Nephrology No dysuria 10/10/2015 Genitourinary/Nephrology nocturia 10/10/2015 Genitourinary/Nephrology No urinary urgency 10/10/2015 Genitourinary/Nephrology No urinary frequency 10/10/2015 Genitourinary/Nephrology No urinary incontinence 10/10/2015 Genitourinary/Nephrology No urinary retention/hesitancy 10/10/2015 Musculoskeletal joint complaint 10/10/2015 Musculoskeletal No muscle weakness 10/10/2015 Musculoskeletal myalgias 10/10/2015 Dermatologic No rash 10/10/2015 Dermatologic No sores 10/10/2015 Psychiatric No anxiety 10/10/2015 Psychiatric depression 10/10/2015 Endocrine No dry or coarse skin 10/10/2015 Endocrine No cold sensitivity 10/10/2015 Endocrine No hair loss 10/10/2015 Endocrine sweating 10/10/2015 Endocrine flushing 10/10/2015 Endocrine sweating 09/12/2015 Endocrine flushing 09/12/2015 Endocrine No dry or coarse skin 09/12/2015 Endocrine No cold sensitivity 09/12/2015 Endocrine No hair loss 09/12/2015 Constitutional No recent illness 09/12/2015 Constitutional No anorexia 09/12/2015 Constitutional night sweats 09/12/2015 Constitutional No chills 09/12/2015 Constitutional No diaphoresis 09/12/2015 Constitutional fatigue 09/12/2015 Constitutional No fever 09/12/2015 Constitutional No insomnia 09/12/2015 Constitutional malaise 09/12/2015 Constitutional No weight loss 09/12/2015 Constitutional No weight gain 09/12/2015 Constitutional No obesity 09/12/2015 Eyes No vision change 09/12/2015 Eyes No eye erythema 09/12/2015 Eyes eye discharge 09/12/2015 Ears/Nose/Throat/Neck nasal allergies 09/12/2015 Ears/Nose/Throat/Neck No nasal discharge 09/12/2015 Ears/Nose/Throat/Neck No headache 09/12/2015 Ears/Nose/Throat/Neck dizziness 09/12/2015 Ears/Nose/Throat/Neck No sore throat 09/12/2015 Ears/Nose/Throat/Neck No sinus congestion 09/12/2015 Ears/Nose/Throat/Neck No postnasal drip 09/12/2015 Ears/Nose/Throat/Neck No otalgia 09/12/2015 Ears/Nose/Throat/Neck No otitis media 09/12/2015 Cardiovascular No chest pain/pressure 09/12/2015 Cardiovascular dyspnea 09/12/2015 Cardiovascular No edema 09/12/2015 Respiratory dyspnea on exertion 09/12/2015 Respiratory dyspnea 09/12/2015 Respiratory No cough 09/12/2015 Respiratory No chest congestion 09/12/2015 Respiratory No chest tightness 09/12/2015 Respiratory No cigarette smoking 09/12/2015 Gastrointestinal No abdominal pain 09/12/2015 Gastrointestinal No constipation 09/12/2015 Gastrointestinal diarrhea 09/12/2015 Gastrointestinal No melena 09/12/2015 Genitourinary/Nephrology No dysuria 09/12/2015 Genitourinary/Nephrology No urinary urgency 09/12/2015 Genitourinary/Nephrology No urinary frequency 09/12/2015 Genitourinary/Nephrology No urinary incontinence 09/12/2015 Genitourinary/Nephrology No urinary retention/hesitancy 09/12/2015 Genitourinary/Nephrology nocturia 09/12/2015 Musculoskeletal myalgias 09/12/2015 Musculoskeletal No muscle weakness 09/12/2015 Musculoskeletal joint complaint 09/12/2015 Dermatologic No rash 09/12/2015 Dermatologic No sores 09/12/2015 Psychiatric No anxiety 09/12/2015 Psychiatric depression 09/12/2015 Neurologic dyskinesia or tremor 09/12/2015 Constitutional recent illness 04/09/2015 Constitutional No anorexia 04/09/2015 Constitutional No night sweats 04/09/2015 Constitutional No chills 04/09/2015 Constitutional No diaphoresis 04/09/2015 Constitutional No fatigue 04/09/2015 Constitutional No fever 04/09/2015 Constitutional No insomnia 04/09/2015 Constitutional No malaise 04/09/2015 Constitutional No weight loss 04/09/2015 Constitutional weight gain 04/09/2015 Constitutional No obesity 04/09/2015 Eyes No vision change 04/09/2015 Ears/Nose/Throat/Neck No dental pain 04/09/2015 Ears/Nose/Throat/Neck No nasal discharge 04/09/2015 Ears/Nose/Throat/Neck No nasal allergies 04/09/2015 Ears/Nose/Throat/Neck No sore throat 04/09/2015 Ears/Nose/Throat/Neck No otorrhea 04/09/2015 Ears/Nose/Throat/Neck No otitis media 04/09/2015 Cardiovascular No chest pain/pressure 04/09/2015 Respiratory No chest congestion 04/09/2015 Respiratory No chest tightness 04/09/2015 Respiratory No cigarette smoking 04/09/2015 Respiratory No cough 04/09/2015 Gastrointestinal No diarrhea 04/09/2015 Gastrointestinal No constipation 04/09/2015 Genitourinary/Nephrology No dysuria 04/09/2015 Genitourinary/Nephrology No hematuria 04/09/2015 Genitourinary/Nephrology nocturia 04/09/2015 Genitourinary/Nephrology No urinary urgency 04/09/2015 Genitourinary/Nephrology No urinary frequency 04/09/2015 Genitourinary/Nephrology No urinary incontinence 04/09/2015 Musculoskeletal No myalgias 04/09/2015 Musculoskeletal No muscle weakness 04/09/2015 Musculoskeletal No joint complaint 04/09/2015 Musculoskeletal No bone pain 04/09/2015 Musculoskeletal No back pain 04/09/2015 Psychiatric No depression 04/09/2015 Psychiatric No anxiety 04/09/2015 Dermatologic No rash 04/09/2015 Dermatologic No sores 04/09/2015 Constitutional No recent illness 10/05/2014 Constitutional No anorexia 10/05/2014 Constitutional No night sweats 10/05/2014 Constitutional No chills 10/05/2014 Constitutional No diaphoresis 10/05/2014 Constitutional fatigue 10/05/2014 Constitutional No fever 10/05/2014 Constitutional No insomnia 10/05/2014 Constitutional No malaise 10/05/2014 Constitutional No weight loss 10/05/2014 Constitutional No weight gain 10/05/2014 Eyes No eye discharge 10/05/2014 Eyes No eye erythema 10/05/2014 Ears/Nose/Throat/Neck No dizziness 10/05/2014 Ears/Nose/Throat/Neck No headache 10/05/2014 Cardiovascular No chest pain/pressure 10/05/2014 Cardiovascular edema 10/05/2014 Cardiovascular fatigue 10/05/2014 Respiratory No productive sputum 10/05/2014 Respiratory No chest congestion 10/05/2014 Respiratory No cough 10/05/2014 Respiratory dyspnea on exertion 10/05/2014 Gastrointestinal No abdominal pain 10/05/2014 Gastrointestinal No constipation 10/05/2014 Gastrointestinal No diarrhea 10/05/2014 Gastrointestinal No nausea 10/05/2014 Genitourinary/Nephrology No dysuria 10/05/2014 Musculoskeletal joint complaint 10/05/2014 Neurologic No alteration of consciousness 10/05/2014 Constitutional No recent illness 09/07/2014 Constitutional No anorexia 09/07/2014 Constitutional No night sweats 09/07/2014 Constitutional No chills 09/07/2014 Constitutional No diaphoresis 09/07/2014 Constitutional fatigue 09/07/2014 Constitutional No fever 09/07/2014 Constitutional No insomnia 09/07/2014 Constitutional No malaise 09/07/2014 Constitutional No weight loss 09/07/2014 Constitutional No weight gain 09/07/2014 Eyes No eye discharge 09/07/2014 Eyes No eye erythema 09/07/2014 Ears/Nose/Throat/Neck No dizziness 09/07/2014 Ears/Nose/Throat/Neck No headache 09/07/2014 Cardiovascular No chest pain/pressure 09/07/2014 Cardiovascular edema 09/07/2014 Cardiovascular fatigue 09/07/2014 Respiratory No productive sputum 09/07/2014 Respiratory No chest congestion 09/07/2014 Respiratory No cough 09/07/2014 Respiratory dyspnea on exertion 09/07/2014 Gastrointestinal No abdominal pain 09/07/2014 Gastrointestinal No constipation 09/07/2014 Gastrointestinal No diarrhea 09/07/2014 Gastrointestinal No nausea 09/07/2014 Genitourinary/Nephrology No dysuria 09/07/2014 Musculoskeletal joint complaint 09/07/2014 Neurologic No alteration of consciousness 09/07/2014 Constitutional No recent illness 07/16/2014 Constitutional No anorexia 07/16/2014 Constitutional No chills 07/16/2014 Constitutional No night sweats 07/16/2014 Constitutional No diaphoresis 07/16/2014 Constitutional No fatigue 07/16/2014 Constitutional No fever 07/16/2014 Constitutional No insomnia 07/16/2014 Constitutional No malaise 07/16/2014 Constitutional No weight loss 07/16/2014 Constitutional No weight gain 07/16/2014 Ears/Nose/Throat/Neck headache 07/16/2014 Constitutional recent illness 04/02/2014 Constitutional No chills 04/02/2014 Constitutional fatigue 04/02/2014 Constitutional fever 04/02/2014 Constitutional No insomnia 04/02/2014 Constitutional malaise 04/02/2014 Eyes No blindness 04/02/2014 Eyes No vision change 04/02/2014 Ears/Nose/Throat/Neck No dental pain 04/02/2014 Ears/Nose/Throat/Neck No dizziness 04/02/2014 Ears/Nose/Throat/Neck No dysphagia 04/02/2014 Ears/Nose/Throat/Neck No headache 04/02/2014 Ears/Nose/Throat/Neck No hearing loss 04/02/2014 Ears/Nose/Throat/Neck No nasal allergies 04/02/2014 Ears/Nose/Throat/Neck No sore throat 04/02/2014 Ears/Nose/Throat/Neck No postnasal drip 04/02/2014 Ears/Nose/Throat/Neck No sinus congestion 04/02/2014 Cardiovascular No chest pain/pressure 04/02/2014 Cardiovascular dyspnea 04/02/2014 Cardiovascular No edema 04/02/2014 Cardiovascular No exercise intolerance 04/02/2014 Cardiovascular fatigue 04/02/2014 Cardiovascular No near-syncope/dizziness 04/02/2014 Respiratory cough 04/02/2014 Respiratory chest congestion 04/02/2014 Respiratory chest tightness 04/02/2014 Gastrointestinal No abdominal pain 04/02/2014 Psychiatric No anxiety 04/02/2014 Psychiatric No depression 04/02/2014 Dermatologic No rash 04/02/2014 Constitutional No recent illness 12/14/2013 Constitutional No anorexia 12/14/2013 Constitutional No night sweats 12/14/2013 Constitutional No chills 12/14/2013 Constitutional diaphoresis 12/14/2013 Constitutional No fatigue 12/14/2013 Constitutional No fever 12/14/2013 Constitutional No insomnia 12/14/2013 Constitutional No malaise 12/14/2013 Constitutional No weight loss 12/14/2013 Constitutional weight gain 12/14/2013 Eyes No eye discharge 12/14/2013 Eyes No eye erythema 12/14/2013 Ears/Nose/Throat/Neck No dizziness 12/14/2013 Ears/Nose/Throat/Neck No headache 12/14/2013 Cardiovascular No chest pain/pressure 12/14/2013 Cardiovascular dyspnea 12/14/2013 Cardiovascular edema 12/14/2013 Respiratory No productive sputum 12/14/2013 Respiratory No chest congestion 12/14/2013 Respiratory No cough 12/14/2013 Gastrointestinal No constipation 12/14/2013 Gastrointestinal No diarrhea 12/14/2013 Gastrointestinal No nausea 12/14/2013 Gastrointestinal No vomiting 12/14/2013 Gastrointestinal abdominal pain 12/14/2013 Genitourinary/Nephrology No dysuria 12/14/2013 Dermatologic No rash 12/14/2013 Dermatologic No sores 12/14/2013 Neurologic No alteration of consciousness 12/14/2013 Constitutional No chills 08/01/2013 Constitutional No fever 08/01/2013 Constitutional No insomnia 08/01/2013 Constitutional No malaise 08/01/2013 Ears/Nose/Throat/Neck No dental pain 08/01/2013 Ears/Nose/Throat/Neck No dizziness 08/01/2013 Ears/Nose/Throat/Neck No headache 08/01/2013 Ears/Nose/Throat/Neck No hearing loss 08/01/2013 Ears/Nose/Throat/Neck No sore throat 08/01/2013 Cardiovascular No chest pain/pressure 08/01/2013 Cardiovascular No dyspnea 08/01/2013 Cardiovascular edema 08/01/2013 Cardiovascular No exercise intolerance 08/01/2013 Cardiovascular No fatigue 08/01/2013 Cardiovascular hypertension 08/01/2013 Cardiovascular No near-syncope/dizziness 08/01/2013 Respiratory chest tightness 08/01/2013 Respiratory No cigarette smoking 08/01/2013 Respiratory cough 08/01/2013 Respiratory No dyspnea 08/01/2013 Respiratory No pedal edema 08/01/2013 Respiratory snoring 08/01/2013 Respiratory No wheezing 08/01/2013 Gastrointestinal No hemorrhoids 08/01/2013 Gastrointestinal No abdominal pain 08/01/2013 Gastrointestinal No constipation 08/01/2013 Gastrointestinal No diarrhea 08/01/2013 Gastrointestinal gastroesophageal reflux 08/01/2013 Gastrointestinal No melena 08/01/2013 Gastrointestinal No nausea 08/01/2013 Gastrointestinal No vomiting 08/01/2013 Genitourinary/Nephrology urinary incontinence 08/01/2013 Musculoskeletal arthralgia(s) 08/01/2013 Dermatologic No rash 08/01/2013 Dermatologic No scar 08/01/2013 Psychiatric No anxiety 08/01/2013 Psychiatric No depression 08/01/2013 Genitourinary/Nephrology urinary urgency 08/01/2013 Constitutional No recent illness 05/02/2013 Constitutional No chills 05/02/2013 Constitutional No fatigue 05/02/2013 Constitutional No fever 05/02/2013 Constitutional No insomnia 05/02/2013 Constitutional No malaise 05/02/2013 Ears/Nose/Throat/Neck No dental pain 05/02/2013 Ears/Nose/Throat/Neck No dizziness 05/02/2013 Ears/Nose/Throat/Neck No dysphagia 05/02/2013 Ears/Nose/Throat/Neck No headache 05/02/2013 Ears/Nose/Throat/Neck No hearing loss 05/02/2013 Ears/Nose/Throat/Neck No nasal allergies 05/02/2013 Ears/Nose/Throat/Neck No sore throat 05/02/2013 Ears/Nose/Throat/Neck No postnasal drip 05/02/2013 Ears/Nose/Throat/Neck No sinus congestion 05/02/2013 Cardiovascular No chest pain/pressure 05/02/2013 Cardiovascular No dyspnea 05/02/2013 Cardiovascular edema 05/02/2013 Cardiovascular No exercise intolerance 05/02/2013 Cardiovascular No fatigue 05/02/2013 Cardiovascular No near-syncope/dizziness 05/02/2013 Cardiovascular hypertension 05/02/2013 Respiratory No chest tightness 05/02/2013 Respiratory No cigarette smoking 05/02/2013 Respiratory No cough 05/02/2013 Respiratory No dyspnea 05/02/2013 Respiratory No pedal edema 05/02/2013 Respiratory No snoring 05/02/2013 Respiratory No wheezing 05/02/2013 Gastrointestinal No hemorrhoids 05/02/2013 Gastrointestinal No abdominal pain 05/02/2013 Gastrointestinal No constipation 05/02/2013 Gastrointestinal No diarrhea 05/02/2013 Gastrointestinal No gastroesophageal reflux 05/02/2013 Gastrointestinal No melena 05/02/2013 Gastrointestinal No nausea 05/02/2013 Gastrointestinal No vomiting 05/02/2013 Genitourinary/Nephrology No urinary incontinence 05/02/2013 Psychiatric No anxiety 05/02/2013 Psychiatric No depression 05/02/2013 Dermatologic No rash 05/02/2013 Dermatologic No scar 05/02/2013 Musculoskeletal No arthralgia(s) 05/02/2013 Constitutional No recent illness 04/18/2013 Constitutional No chills 04/18/2013 Constitutional No fatigue 04/18/2013 Constitutional No fever 04/18/2013 Constitutional No insomnia 04/18/2013 Constitutional No malaise 04/18/2013 Ears/Nose/Throat/Neck No dental pain 04/18/2013 Ears/Nose/Throat/Neck No dizziness 04/18/2013 Ears/Nose/Throat/Neck No dysphagia 04/18/2013 Ears/Nose/Throat/Neck No headache 04/18/2013 Ears/Nose/Throat/Neck No hearing loss 04/18/2013 Ears/Nose/Throat/Neck No nasal allergies 04/18/2013 Ears/Nose/Throat/Neck No sore throat 04/18/2013 Ears/Nose/Throat/Neck No postnasal drip 04/18/2013 Ears/Nose/Throat/Neck No sinus congestion 04/18/2013 Cardiovascular No chest pain/pressure 04/18/2013 Cardiovascular No dyspnea 04/18/2013 Cardiovascular edema 04/18/2013 Cardiovascular No exercise intolerance 04/18/2013 Cardiovascular No fatigue 04/18/2013 Cardiovascular hypertension 04/18/2013 Cardiovascular No near-syncope/dizziness 04/18/2013 Respiratory No chest tightness 04/18/2013 Respiratory No cigarette smoking 04/18/2013 Respiratory No cough 04/18/2013 Respiratory No dyspnea 04/18/2013 Respiratory No pedal edema 04/18/2013 Respiratory No snoring 04/18/2013 Respiratory No wheezing 04/18/2013 Gastrointestinal No hemorrhoids 04/18/2013 Gastrointestinal No abdominal pain 04/18/2013 Gastrointestinal No constipation 04/18/2013 Gastrointestinal No diarrhea 04/18/2013 Gastrointestinal No gastroesophageal reflux 04/18/2013 Gastrointestinal No melena 04/18/2013 Gastrointestinal No nausea 04/18/2013 Gastrointestinal No vomiting 04/18/2013 Genitourinary/Nephrology No urinary incontinence 04/18/2013 Musculoskeletal No arthralgia(s) 04/18/2013 Dermatologic No rash 04/18/2013 Dermatologic No scar 04/18/2013 Psychiatric No anxiety 04/18/2013 Psychiatric No depression 04/18/2013 Physical Exam Exam Name System Name Item Name Status Result Effective Dates Notes Full Exam - General 1994 Constitutional general appearance Overall: well developed 09/26/2018 None Full Exam - General 1994 Constitutional general appearance Overall: in no acute distress 09/26/2018 None Full Exam - General 1994 Constitutional general appearance Overall: well nourished 09/26/2018 None Full Exam - General 1995 Eyes conjunctiva/eyelids Overall: conjunctiva clear 09/26/2018 None Full Exam - General 1995 Eyes conjunctiva/eyelids Overall: cornea clear 09/26/2018 None Full Exam - General 1994 Eyes conjunctiva/eyelids Overall: eyelids normal 09/26/2018 None Full Exam - General 1994 Eyes pupils and irises Overall: pupils equal, round, reactive to light and accomodation 09/26/2018 None Full Exam - General 1995 Ears/Nose/Throat oral cavity/pharynx/larynx Overall: oral mucosa clear 09/26/2018 None Full Exam - General 1995 Ears/Nose/Throat oral cavity/pharynx/larynx Overall: oropharyngeal mucosa clear 09/26/2018 None Full Exam - General 1995 Ears/Nose/Throat oral cavity/pharynx/larynx Overall: no masses 09/26/2018 None Full Exam - General 1994 Respiratory auscultation Overall: breath sounds clear bilaterally 09/26/2018 None Full Exam - General 1994 Respiratory respiratory effort/rhythm Overall: no retractions 09/26/2018 None Full Exam - General 1994 Respiratory respiratory effort/rhythm Overall: normal rate 09/26/2018 None Full Exam - General 1994 Cardiovascular extremities Overall: no clubbing 09/26/2018 None Full Exam - General 1994 Cardiovascular auscultation of heart Overall: regular rate 09/26/2018 None Full Exam - General 1994 Cardiovascular auscultation of heart Overall: normal heart sounds 09/26/2018 None Full Exam - General 1994 Cardiovascular auscultation of heart Overall: no murmurs 09/26/2018 None Full Exam - General 1994 Musculoskeletal gait and station Overall: normal gait 09/26/2018 None Full Exam - General 1994 Musculoskeletal gait and station Overall: normal station 09/26/2018 None Full Exam - General 1994 Neurologic cranial nerves Overall: crainial nerves 2 - 12 grossly intact 09/26/2018 None Full Exam - General 1994 Psychiatric orientation/consciousness Overall: oriented to person, place and time 09/26/2018 None Full Exam - General 1994 Musculoskeletal spine, ribs and pelvis Posture: lordosis 09/26/2018 None Full Exam - General 1994 Constitutional general appearance Overall: well developed 07/27/2018 None Full Exam - General 1994 Constitutional general appearance Overall: in no acute distress 07/27/2018 None Full Exam - General 1994 Constitutional general appearance Overall: well nourished 07/27/2018 None Full Exam - General 1994 Eyes conjunctiva/eyelids Overall: conjunctiva clear 07/27/2018 None Full Exam - General 1994 Eyes conjunctiva/eyelids Overall: cornea clear 07/27/2018 None Full Exam - General 1994 Eyes conjunctiva/eyelids Overall: eyelids normal 07/27/2018 None Full Exam - General 1994 Eyes pupils and irises Overall: pupils equal, round, reactive to light and accomodation 07/27/2018 None Full Exam - General 1994 Ears/Nose/Throat otoscopic exam Overall: external auditory canals clear 07/27/2018 None Full Exam - General 1994 Ears/Nose/Throat otoscopic exam Overall: tympanic membranes clear 07/27/2018 None Full Exam - General 1994 Ears/Nose/Throat oral cavity/pharynx/larynx Overall: oral mucosa clear 07/27/2018 None Full Exam - General 1994 Ears/Nose/Throat oral cavity/pharynx/larynx Overall: oropharyngeal mucosa clear 07/27/2018 None Full Exam - General 1994 Ears/Nose/Throat oral cavity/pharynx/larynx Overall: no masses 07/27/2018 None Full Exam - General 1994 Respiratory auscultation Overall: breath sounds clear bilaterally 07/27/2018 None Full Exam - General 1994 Respiratory respiratory effort/rhythm Overall: no retractions 07/27/2018 None Full Exam - General 1994 Respiratory respiratory effort/rhythm Overall: normal rate 07/27/2018 None Full Exam - General 1994 Cardiovascular extremities Overall: no clubbing 07/27/2018 None Full Exam - General 1994 Cardiovascular auscultation of heart Overall: regular rate 07/27/2018 None Full Exam - General 1994 Cardiovascular auscultation of heart Overall: normal heart sounds 07/27/2018 None Full Exam - General 1994 Cardiovascular auscultation of heart Overall: no murmurs 07/27/2018 None Full Exam - General 1994 Musculoskeletal gait and station Overall: normal gait 07/27/2018 None Full Exam - General 1994 Musculoskeletal gait and station Overall: normal station 07/27/2018 None Full Exam - General 1994 Neurologic cranial nerves Overall: crainial nerves 2 - 12 grossly intact 07/27/2018 None Full Exam - General 1994 Psychiatric orientation/consciousness Overall: oriented to person, place and time 07/27/2018 None Full Exam - General 1994 Abdomen abdominal exam Overall: no tenderness 07/27/2018 None Full Exam - General 1994 Abdomen abdominal exam Overall: normal bowel sounds 07/27/2018 None Full Exam - General 1994 Constitutional general appearance Overall: well developed 01/25/2018 None Full Exam - General 1994 Constitutional general appearance Overall: in no acute distress 01/25/2018 None Full Exam - General 1994 Constitutional general appearance Overall: well nourished 01/25/2018 None Full Exam - General 1994 Eyes conjunctiva/eyelids Overall: conjunctiva clear 01/25/2018 None Full Exam - General 1994 Eyes conjunctiva/eyelids Overall: cornea clear 01/25/2018 None Full Exam - General 1994 Eyes conjunctiva/eyelids Overall: eyelids normal 01/25/2018 None Full Exam - General 1994 Eyes pupils and irises Overall: pupils equal, round, reactive to light and accomodation 01/25/2018 None Full Exam - General 1994 Ears/Nose/Throat otoscopic exam Overall: external auditory canals clear 01/25/2018 None Full Exam - General 1994 Ears/Nose/Throat otoscopic exam Overall: tympanic membranes clear 01/25/2018 None Full Exam - General 1994 Ears/Nose/Throat oral cavity/pharynx/larynx Overall: oral mucosa clear 01/25/2018 None Full Exam - General 1994 Ears/Nose/Throat oral cavity/pharynx/larynx Overall: oropharyngeal mucosa clear 01/25/2018 None Full Exam - General 1994 Ears/Nose/Throat oral cavity/pharynx/larynx Overall: no masses 01/25/2018 None Full Exam - General 1994 Respiratory auscultation Overall: breath sounds clear bilaterally 01/25/2018 None Full Exam - General 1994 Respiratory respiratory effort/rhythm Overall: no retractions 01/25/2018 None Full Exam - General 1994 Respiratory respiratory effort/rhythm Overall: normal rate 01/25/2018 None Full Exam - General 1994 Cardiovascular extremities Overall: no clubbing 01/25/2018 None Full Exam - General 1994 Cardiovascular auscultation of heart Overall: regular rate 01/25/2018 None Full Exam - General 1994 Cardiovascular auscultation of heart Overall: normal heart sounds 01/25/2018 None Full Exam - General 1994 Cardiovascular auscultation of heart Overall: no murmurs 01/25/2018 None Full Exam - General 1994 Musculoskeletal gait and station Overall: normal gait 01/25/2018 None Full Exam - General 1994 Musculoskeletal gait and station Overall: normal station 01/25/2018 None Full Exam - General 1994 Neurologic cranial nerves Overall: crainial nerves 2 - 12 grossly intact 01/25/2018 None Full Exam - General 1994 Psychiatric orientation/consciousness Overall: oriented to person, place and time 01/25/2018 None Full Exam - General 1994 Constitutional general appearance Overall: well developed 10/06/2017 None Full Exam - General 1994 Constitutional general appearance Overall: in no acute distress 10/06/2017 None Full Exam - General 1994 Constitutional general appearance Overall: well nourished 10/06/2017 None Full Exam - General 1994 Eyes conjunctiva/eyelids Overall: conjunctiva clear 10/06/2017 None Full Exam - General 1994 Eyes conjunctiva/eyelids Overall: cornea clear 10/06/2017 None Full Exam - General 1994 Eyes conjunctiva/eyelids Overall: eyelids normal 10/06/2017 None Full Exam - General 1994 Eyes pupils and irises Overall: pupils equal, round, reactive to light and accomodation 10/06/2017 None Full Exam - General 1994 Ears/Nose/Throat otoscopic exam Overall: external auditory canals clear 10/06/2017 None Full Exam - General 1994 Ears/Nose/Throat otoscopic exam Overall: tympanic membranes clear 10/06/2017 None Full Exam - General 1994 Ears/Nose/Throat lips/teeth/gingiva Overall: benign lips 10/06/2017 None Full Exam - General 1994 Ears/Nose/Throat lips/teeth/gingiva Overall: normal dentition 10/06/2017 None Full Exam - General 1994 Ears/Nose/Throat lips/teeth/gingiva Overall: benign gingiva 10/06/2017 None Full Exam - General 1994 Ears/Nose/Throat lips/teeth/gingiva Overall: no masses 10/06/2017 None Full Exam - General 1994 Ears/Nose/Throat oral cavity/pharynx/larynx Overall: oral mucosa clear 10/06/2017 None Full Exam - General 1994 Ears/Nose/Throat oral cavity/pharynx/larynx Overall: no masses 10/06/2017 None Full Exam - General 1994 Respiratory auscultation Overall: breath sounds clear bilaterally 10/06/2017 None Full Exam - General 1994 Respiratory respiratory effort/rhythm Overall: no retractions 10/06/2017 None Full Exam - General 1994 Respiratory respiratory effort/rhythm Overall: normal rate 10/06/2017 None Full Exam - General 1994 Cardiovascular extremities Edema present: pitting 10/06/2017 None Full Exam - General 1994 Cardiovascular extremities Edema present: severity 1+ - 4+: 4+ to knees 10/06/2017 None Full Exam - General 1994 Cardiovascular auscultation of heart Overall: regular rate 10/06/2017 None Full Exam - General 1994 Cardiovascular auscultation of heart Overall: normal heart sounds 10/06/2017 None Full Exam - General 1994 Cardiovascular auscultation of heart Overall: no murmurs 10/06/2017 None Full Exam - General 1994 Abdomen abdominal exam Overall: no tenderness 10/06/2017 None Full Exam - General 1994 Abdomen abdominal exam Overall: normal bowel sounds 10/06/2017 None Full Exam - General 1994 Psychiatric orientation/consciousness Overall: oriented to person, place and time 10/06/2017 None Full Exam - General 1994 Psychiatric behavior/psychomotor activity Overall: no tics, normal psychomotor activity 10/06/2017 None Full Exam - General 1994 Psychiatric mood and affect Mood: depressed 10/06/2017 None Full Exam - General 1994 Psychiatric mood and affect Mood: anxious 10/06/2017 None Full Exam - General 1994 Psychiatric appearance Overall: well-groomed, good eye contact 10/06/2017 None Full Exam - General 1994 Musculoskeletal digits and nails Nails: onycholysis 10/06/2017 toenails and fingernail Full Exam - General 1994 Constitutional general appearance Overall: well developed 09/27/2017 None Full Exam - General 1994 Constitutional general appearance Overall: in no acute distress 09/27/2017 None Full Exam - General 1994 Constitutional general appearance Overall: well nourished 09/27/2017 None Full Exam - General 1994 Eyes conjunctiva/eyelids Overall: conjunctiva clear 09/27/2017 None Full Exam - General 1994 Eyes conjunctiva/eyelids Overall: cornea clear 09/27/2017 None Full Exam - General 1994 Eyes conjunctiva/eyelids Overall: eyelids normal 09/27/2017 None Full Exam - General 1994 Eyes pupils and irises Overall: pupils equal, round, reactive to light and accomodation 09/27/2017 None Full Exam - General 1994 Ears/Nose/Throat otoscopic exam Overall: external auditory canals clear 09/27/2017 None Full Exam - General 1994 Ears/Nose/Throat otoscopic exam Overall: tympanic membranes clear 09/27/2017 None Full Exam - General 1994 Ears/Nose/Throat lips/teeth/gingiva Overall: benign lips 09/27/2017 None Full Exam - General 1994 Ears/Nose/Throat lips/teeth/gingiva Overall: normal dentition 09/27/2017 None Full Exam - General 1994 Ears/Nose/Throat lips/teeth/gingiva Overall: benign gingiva 09/27/2017 None Full Exam - General 1994 Ears/Nose/Throat lips/teeth/gingiva Overall: no masses 09/27/2017 None Full Exam - General 1994 Ears/Nose/Throat oral cavity/pharynx/larynx Overall: oral mucosa clear 09/27/2017 None Full Exam - General 1994 Ears/Nose/Throat oral cavity/pharynx/larynx Overall: no masses 09/27/2017 None Full Exam - General 1994 Respiratory auscultation Overall: breath sounds clear bilaterally 09/27/2017 None Full Exam - General 1994 Respiratory respiratory effort/rhythm Overall: no retractions 09/27/2017 None Full Exam - General 1994 Respiratory respiratory effort/rhythm Overall: normal rate 09/27/2017 None Full Exam - General 1994 Cardiovascular auscultation of heart Overall: regular rate 09/27/2017 None Full Exam - General 1994 Cardiovascular auscultation of heart Overall: normal heart sounds 09/27/2017 None Full Exam - General 1994 Cardiovascular auscultation of heart Overall: no murmurs 09/27/2017 None Full Exam - General 1994 Abdomen abdominal exam Overall: no tenderness 09/27/2017 None Full Exam - General 1994 Abdomen abdominal exam Overall: normal bowel sounds 09/27/2017 None Full Exam - General 1994 Psychiatric orientation/consciousness Overall: oriented to person, place and time 09/27/2017 None Full Exam - General 1994 Psychiatric behavior/psychomotor activity Overall: no tics, normal psychomotor activity 09/27/2017 None Full Exam - General 1994 Psychiatric mood and affect Mood: depressed 09/27/2017 None Full Exam - General 1994 Psychiatric mood and affect Mood: anxious 09/27/2017 None Full Exam - General 1994 Psychiatric appearance Overall: well-groomed, good eye contact 09/27/2017 None Full Exam - General 1994 Cardiovascular extremities Edema present: pitting 09/27/2017 None Full Exam - General 1994 Cardiovascular extremities Edema present: severity 1+ - 4+: 4+ to knees 09/27/2017 None Full Exam - General 1994 Constitutional general appearance Overall: well developed 07/23/2017 None Full Exam - General 1994 Constitutional general appearance Overall: in no acute distress 07/23/2017 None Full Exam - General 1994 Constitutional general appearance Overall: well nourished 07/23/2017 None Full Exam - General 1994 Eyes conjunctiva/eyelids Overall: conjunctiva clear 07/23/2017 None Full Exam - General 1994 Eyes conjunctiva/eyelids Overall: cornea clear 07/23/2017 None Full Exam - General 1994 Eyes conjunctiva/eyelids Overall: eyelids normal 07/23/2017 None Full Exam - General 1994 Eyes pupils and irises Overall: pupils equal, round, reactive to light and accomodation 07/23/2017 None Full Exam - General 1994 Ears/Nose/Throat otoscopic exam Overall: external auditory canals clear 07/23/2017 None Full Exam - General 1994 Ears/Nose/Throat otoscopic exam Overall: tympanic membranes clear 07/23/2017 None Full Exam - General 1994 Ears/Nose/Throat lips/teeth/gingiva Overall: benign lips 07/23/2017 None Full Exam - General 1994 Ears/Nose/Throat lips/teeth/gingiva Overall: normal dentition 07/23/2017 None Full Exam - General 1994 Ears/Nose/Throat lips/teeth/gingiva Overall: benign gingiva 07/23/2017 None Full Exam - General 1994 Ears/Nose/Throat lips/teeth/gingiva Overall: no masses 07/23/2017 None Full Exam - General 1994 Ears/Nose/Throat oral cavity/pharynx/larynx Overall: oral mucosa clear 07/23/2017 None Full Exam - General 1994 Ears/Nose/Throat oral cavity/pharynx/larynx Overall: no masses 07/23/2017 None Full Exam - General 1994 Respiratory auscultation Overall: breath sounds clear bilaterally 07/23/2017 None Full Exam - General 1994 Respiratory respiratory effort/rhythm Overall: no retractions 07/23/2017 None Full Exam - General 1994 Respiratory respiratory effort/rhythm Overall: normal rate 07/23/2017 None Full Exam - General 1994 Cardiovascular extremities Overall: no clubbing 07/23/2017 None Full Exam - General 1994 Cardiovascular extremities Edema present: pitting 07/23/2017 trace Full Exam - General 1994 Cardiovascular auscultation of heart Overall: regular rate 07/23/2017 None Full Exam - General 1994 Cardiovascular auscultation of heart Overall: normal heart sounds 07/23/2017 None Full Exam - General 1994 Cardiovascular auscultation of heart Overall: no murmurs 07/23/2017 None Full Exam - General 1994 Abdomen abdominal exam Overall: no tenderness 07/23/2017 None Full Exam - General 1994 Abdomen abdominal exam Overall: normal bowel sounds 07/23/2017 None Full Exam - General 1994 Musculoskeletal gait and station Overall: normal gait 07/23/2017 None Full Exam - General 1994 Musculoskeletal gait and station Overall: normal station 07/23/2017 None Full Exam - General 1994 Neurologic gait Romberg test: negative 07/23/2017 None Full Exam - General 1994 Neurologic cranial nerves Overall: crainial nerves 2 - 12 grossly intact 07/23/2017 None Full Exam - General 1994 Psychiatric orientation/consciousness Overall: oriented to person, place and time 07/23/2017 None Full Exam - General 1994 Psychiatric behavior/psychomotor activity Overall: no tics, normal psychomotor activity 07/23/2017 None Full Exam - General 1994 Psychiatric mood and affect Mood: anxious 07/23/2017 None Full Exam - General 1994 Psychiatric appearance Overall: well-groomed, good eye contact 07/23/2017 None Full Exam - General 1994 Constitutional general appearance Overall: well developed 06/01/2017 None Full Exam - General 1994 Constitutional general appearance Overall: in no acute distress 06/01/2017 None Full Exam - General 1994 Constitutional general appearance Overall: well nourished 06/01/2017 None Full Exam - General 1994 Eyes conjunctiva/eyelids Overall: conjunctiva clear 06/01/2017 None Full Exam - General 1994 Eyes conjunctiva/eyelids Overall: cornea clear 06/01/2017 None Full Exam - General 1994 Eyes conjunctiva/eyelids Overall: eyelids normal 06/01/2017 None Full Exam - General 1994 Eyes pupils and irises Overall: pupils equal, round, reactive to light and accomodation 06/01/2017 None Full Exam - General 1994 Ears/Nose/Throat otoscopic exam Overall: external auditory canals clear 06/01/2017 None Full Exam - General 1994 Ears/Nose/Throat otoscopic exam Overall: tympanic membranes clear 06/01/2017 None Full Exam - General 1994 Ears/Nose/Throat lips/teeth/gingiva Overall: benign lips 06/01/2017 None Full Exam - General 1994 Ears/Nose/Throat lips/teeth/gingiva Overall: normal dentition 06/01/2017 None Full Exam - General 1994 Ears/Nose/Throat lips/teeth/gingiva Overall: benign gingiva 06/01/2017 None Full Exam - General 1994 Ears/Nose/Throat lips/teeth/gingiva Overall: no masses 06/01/2017 None Full Exam - General 1994 Ears/Nose/Throat oral cavity/pharynx/larynx Overall: oral mucosa clear 06/01/2017 None Full Exam - General 1994 Ears/Nose/Throat oral cavity/pharynx/larynx Overall: no masses 06/01/2017 None Full Exam - General 1994 Respiratory auscultation Overall: breath sounds clear bilaterally 06/01/2017 None Full Exam - General 1994 Respiratory respiratory effort/rhythm Overall: no retractions 06/01/2017 None Full Exam - General 1994 Respiratory respiratory effort/rhythm Overall: normal rate 06/01/2017 None Full Exam - General 1994 Cardiovascular extremities Overall: no clubbing 06/01/2017 None Full Exam - General 1994 Cardiovascular auscultation of heart Overall: regular rate 06/01/2017 None Full Exam - General 1994 Cardiovascular auscultation of heart Overall: normal heart sounds 06/01/2017 None Full Exam - General 1994 Cardiovascular auscultation of heart Overall: no murmurs 06/01/2017 None Full Exam - General 1994 Abdomen abdominal exam Overall: no tenderness 06/01/2017 None Full Exam - General 1994 Abdomen abdominal exam Overall: normal bowel sounds 06/01/2017 None Full Exam - General 1994 Musculoskeletal gait and station Overall: normal gait 06/01/2017 None Full Exam - General 1994 Musculoskeletal gait and station Overall: normal station 06/01/2017 None Full Exam - General 1994 Neurologic gait Romberg test: negative 06/01/2017 None Full Exam - General 1994 Neurologic cranial nerves Overall: crainial nerves 2 - 12 grossly intact 06/01/2017 None Full Exam - General 1994 Psychiatric orientation/consciousness Overall: oriented to person, place and time 06/01/2017 None Full Exam - General 1994 Psychiatric behavior/psychomotor activity Overall: no tics, normal psychomotor activity 06/01/2017 None Full Exam - General 1994 Psychiatric mood and affect Mood: anxious 06/01/2017 None Full Exam - General 1994 Psychiatric appearance Overall: well-groomed, good eye contact 06/01/2017 None Full Exam - General 1994 Integument inspection of skin Location: back 06/01/2017 adrienne k Full Exam - General 1994 Integument inspection of skin Location: chest 06/01/2017 seborrheic keratosis Full Exam - General 1994 Cardiovascular extremities Edema present: pitting 06/01/2017 trace Full Exam - General 1994 Constitutional general appearance Overall: well developed 05/11/2017 None Full Exam - General 1994 Constitutional general appearance Overall: in no acute distress 05/11/2017 None Full Exam - General 1994 Constitutional general appearance Overall: well nourished 05/11/2017 None Full Exam - General 1994 Eyes conjunctiva/eyelids Overall: conjunctiva clear 05/11/2017 None Full Exam - General 1994 Eyes conjunctiva/eyelids Overall: cornea clear 05/11/2017 None Full Exam - General 1994 Eyes conjunctiva/eyelids Overall: eyelids normal 05/11/2017 None Full Exam - General 1994 Eyes pupils and irises Overall: pupils equal, round, reactive to light and accomodation 05/11/2017 None Full Exam - General 1994 Ears/Nose/Throat lips/teeth/gingiva Overall: benign lips 05/11/2017 None Full Exam - General 1994 Ears/Nose/Throat oral cavity/pharynx/larynx Overall: oral mucosa clear 05/11/2017 None Full Exam - General 1994 Respiratory auscultation Overall: breath sounds clear bilaterally 05/11/2017 None Full Exam - General 1994 Respiratory respiratory effort/rhythm Overall: no retractions 05/11/2017 None Full Exam - General 1994 Respiratory respiratory effort/rhythm Overall: normal rate 05/11/2017 None Full Exam - General 1994 Cardiovascular extremities Overall: no clubbing 05/11/2017 None Full Exam - General 1994 Cardiovascular auscultation of heart Overall: regular rate 05/11/2017 None Full Exam - General 1994 Cardiovascular auscultation of heart Overall: normal heart sounds 05/11/2017 None Full Exam - General 1994 Cardiovascular auscultation of heart Overall: no murmurs 05/11/2017 None Full Exam - General 1994 Abdomen abdominal exam Overall: normal bowel sounds 05/11/2017 None Full Exam - General 1994 Musculoskeletal gait and station Overall: normal gait 05/11/2017 None Full Exam - General 1994 Musculoskeletal gait and station Overall: normal station 05/11/2017 None Full Exam - General 1994 Integument inspection of skin Overall: no rash, lesions 05/11/2017 None Full Exam - General 1994 Neurologic gait Romberg test: negative 05/11/2017 None Full Exam - General 1994 Neurologic coordination [id number] testing - left: dysmetria 05/11/2017 None Full Exam - General 1994 Neurologic coordination [id number] testing - right: dysmetria 05/11/2017 None Full Exam - General 1994 Neurologic coordination Tremors: resting 05/11/2017 None Full Exam - General 1994 Neurologic cranial nerves Overall: crainial nerves 2 - 12 grossly intact 05/11/2017 None Full Exam - General 1994 Psychiatric orientation/consciousness Overall: oriented to person, place and time 05/11/2017 None Full Exam - General 1994 Psychiatric appearance Overall: well-groomed, good eye contact 05/11/2017 None Full Exam - General 1994 Psychiatric mood and affect Overall: normal mood and affect 05/11/2017 None Full Exam - General 1994 Psychiatric mood and affect Affect: flat 05/11/2017 None Full Exam - General 1994 Ears/Nose/Throat oral cavity/pharynx/larynx Overall: oropharyngeal mucosa clear 05/11/2017 None Full Exam - General 1994 Abdomen abdominal exam Epigastric: tender to palpation 05/11/2017 None Full Exam - General 1994 Abdomen abdominal exam Epigastric: dull pain 05/11/2017 None Full Exam - General 1994 Abdomen abdominal exam Epigastric: no guarding 05/11/2017 None Full Exam - General 1994 Abdomen abdominal exam Epigastric: no rebound tenderness 05/11/2017 None Full Exam - General 1994 Abdomen abdominal exam Epigastric: soft 05/11/2017 None Full Exam - General 1994 Constitutional general appearance Overall: well developed 10/30/2016 None Full Exam - General 1994 Constitutional general appearance Overall: in no acute distress 10/30/2016 None Full Exam - General 1994 Constitutional general appearance Overall: well nourished 10/30/2016 None Full Exam - General 1994 Eyes conjunctiva/eyelids Overall: conjunctiva clear 10/30/2016 None Full Exam - General 1994 Eyes conjunctiva/eyelids Overall: cornea clear 10/30/2016 None Full Exam - General 1994 Eyes conjunctiva/eyelids Overall: eyelids normal 10/30/2016 None Full Exam - General 1994 Eyes pupils and irises Overall: pupils equal, round, reactive to light and accomodation 10/30/2016 None Full Exam - General 1994 Ears/Nose/Throat otoscopic exam Overall: external auditory canals clear 10/30/2016 None Full Exam - General 1994 Ears/Nose/Throat otoscopic exam Overall: tympanic membranes clear 10/30/2016 None Full Exam - General 1994 Ears/Nose/Throat lips/teeth/gingiva Overall: benign lips 10/30/2016 None Full Exam - General 1994 Ears/Nose/Throat lips/teeth/gingiva Overall: normal dentition 10/30/2016 None Full Exam - General 1994 Ears/Nose/Throat lips/teeth/gingiva Overall: benign gingiva 10/30/2016 None Full Exam - General 1994 Ears/Nose/Throat lips/teeth/gingiva Overall: no masses 10/30/2016 None Full Exam - General 1994 Ears/Nose/Throat oral cavity/pharynx/larynx Overall: oral mucosa clear 10/30/2016 None Full Exam - General 1994 Ears/Nose/Throat oral cavity/pharynx/larynx Overall: no masses 10/30/2016 None Full Exam - General 1994 Respiratory auscultation Overall: breath sounds clear bilaterally 10/30/2016 None Full Exam - General 1994 Respiratory respiratory effort/rhythm Overall: no retractions 10/30/2016 None Full Exam - General 1994 Respiratory respiratory effort/rhythm Overall: normal rate 10/30/2016 None Full Exam - General 1994 Cardiovascular extremities Overall: no clubbing 10/30/2016 None Full Exam - General 1994 Cardiovascular auscultation of heart Overall: regular rate 10/30/2016 None Full Exam - General 1994 Cardiovascular auscultation of heart Overall: normal heart sounds 10/30/2016 None Full Exam - General 1994 Cardiovascular auscultation of heart Overall: no murmurs 10/30/2016 None Full Exam - General 1994 Abdomen abdominal exam Overall: no tenderness 10/30/2016 None Full Exam - General 1994 Abdomen abdominal exam Overall: normal bowel sounds 10/30/2016 None Full Exam - General 1994 Musculoskeletal gait and station Overall: normal gait 10/30/2016 None Full Exam - General 1994 Musculoskeletal gait and station Overall: normal station 10/30/2016 None Full Exam - General 1994 Integument inspection of skin Overall: no rash, lesions 10/30/2016 None Full Exam - General 1994 Neurologic gait Romberg test: negative 10/30/2016 None Full Exam - General 1994 Neurologic cranial nerves Overall: crainial nerves 2 - 12 grossly intact 10/30/2016 None Full Exam - General 1994 Psychiatric orientation/consciousness Overall: oriented to person, place and time 10/30/2016 None Full Exam - General 1994 Psychiatric behavior/psychomotor activity Overall: no tics, normal psychomotor activity 10/30/2016 None Full Exam - General 1994 Psychiatric mood and affect Mood: depressed 10/30/2016 None Full Exam - General 1994 Psychiatric mood and affect Mood: anxious 10/30/2016 None Full Exam - General 1994 Psychiatric appearance Overall: well-groomed, good eye contact 10/30/2016 None Full Exam - General 1994 Constitutional general appearance Overall: well developed 04/20/2016 None Full Exam - General 1994 Constitutional general appearance Overall: in no acute distress 04/20/2016 None Full Exam - General 1994 Constitutional general appearance Overall: well nourished 04/20/2016 None Full Exam - General 1994 Eyes conjunctiva/eyelids Overall: conjunctiva clear 04/20/2016 None Full Exam - General 1994 Eyes conjunctiva/eyelids Overall: cornea clear 04/20/2016 None Full Exam - General 1994 Eyes conjunctiva/eyelids Overall: eyelids normal 04/20/2016 None Full Exam - General 1994 Eyes pupils and irises Overall: pupils equal, round, reactive to light and accomodation 04/20/2016 None Full Exam - General 1994 Ears/Nose/Throat otoscopic exam Overall: external auditory canals clear 04/20/2016 None Full Exam - General 1994 Ears/Nose/Throat otoscopic exam Overall: tympanic membranes clear 04/20/2016 None Full Exam - General 1994 Ears/Nose/Throat lips/teeth/gingiva Overall: benign lips 04/20/2016 None Full Exam - General 1994 Ears/Nose/Throat lips/teeth/gingiva Overall: normal dentition 04/20/2016 None Full Exam - General 1994 Ears/Nose/Throat lips/teeth/gingiva Overall: benign gingiva 04/20/2016 None Full Exam - General 1994 Ears/Nose/Throat lips/teeth/gingiva Overall: no masses 04/20/2016 None Full Exam - General 1994 Ears/Nose/Throat oral cavity/pharynx/larynx Overall: oral mucosa clear 04/20/2016 None Full Exam - General 1994 Ears/Nose/Throat oral cavity/pharynx/larynx Overall: no masses 04/20/2016 None Full Exam - General 1994 Respiratory auscultation Overall: breath sounds clear bilaterally 04/20/2016 None Full Exam - General 1994 Respiratory respiratory effort/rhythm Overall: no retractions 04/20/2016 None Full Exam - General 1994 Respiratory respiratory effort/rhythm Overall: normal rate 04/20/2016 None Full Exam - General 1994 Cardiovascular extremities Overall: no clubbing 04/20/2016 None Full Exam - General 1994 Cardiovascular auscultation of heart Overall: regular rate 04/20/2016 None Full Exam - General 1994 Cardiovascular auscultation of heart Overall: normal heart sounds 04/20/2016 None Full Exam - General 1994 Cardiovascular auscultation of heart Overall: no murmurs 04/20/2016 None Full Exam - General 1994 Abdomen abdominal exam Overall: no tenderness 04/20/2016 None Full Exam - General 1994 Abdomen abdominal exam Overall: normal bowel sounds 04/20/2016 None Full Exam - General 1994 Musculoskeletal gait and station Overall: normal gait 04/20/2016 None Full Exam - General 1994 Musculoskeletal gait and station Overall: normal station 04/20/2016 None Full Exam - General 1994 Integument inspection of skin Overall: no rash, lesions 04/20/2016 None Full Exam - General 1994 Neurologic gait Romberg test: negative 04/20/2016 None Full Exam - General 1994 Neurologic coordination [id number]-[id number] testing - left: dysmetria 04/20/2016 None Full Exam - General 1994 Neurologic coordination [id number]-[id number]-[id number] testing - right: dysmetria 04/20/2016 None Full Exam - General 1994 Neurologic coordination Tremors: resting 04/20/2016 None Full Exam - General 1994 Neurologic cranial nerves Overall: crainial nerves 2 - 12 grossly intact 04/20/2016 None Full Exam - General 1994 Psychiatric orientation/consciousness Overall: oriented to person, place and time 04/20/2016 None Full Exam - General 1994 Psychiatric behavior/psychomotor activity Overall: no tics, normal psychomotor activity 04/20/2016 None Full Exam - General 1994 Psychiatric mood and affect Mood: depressed 04/20/2016 None Full Exam - General 1994 Psychiatric mood and affect Mood: anxious 04/20/2016 None Full Exam - General 1994 Psychiatric appearance Overall: well-groomed, good eye contact 04/20/2016 None Full Exam - General 1994 Constitutional general appearance Overall: well developed 02/25/2016 None Full Exam - General 1994 Constitutional general appearance Overall: in no acute distress 02/25/2016 None Full Exam - General 1994 Constitutional general appearance Overall: well nourished 02/25/2016 None Full Exam - General 1994 Eyes conjunctiva/eyelids Overall: conjunctiva clear 02/25/2016 None Full Exam - General 1994 Eyes conjunctiva/eyelids Overall: cornea clear 02/25/2016 None Full Exam - General 1994 Eyes conjunctiva/eyelids Overall: eyelids normal 02/25/2016 None Full Exam - General 1994 Eyes pupils and irises Overall: pupils equal, round, reactive to light and accomodation 02/25/2016 None Full Exam - General 1994 Ears/Nose/Throat otoscopic exam Overall: external auditory canals clear 02/25/2016 None Full Exam - General 1994 Ears/Nose/Throat otoscopic exam Overall: tympanic membranes clear 02/25/2016 None Full Exam - General 1994 Ears/Nose/Throat lips/teeth/gingiva Overall: benign lips 02/25/2016 None Full Exam - General 1994 Ears/Nose/Throat lips/teeth/gingiva Overall: normal dentition 02/25/2016 None Full Exam - General 1994 Ears/Nose/Throat lips/teeth/gingiva Overall: benign gingiva 02/25/2016 None Full Exam - General 1994 Ears/Nose/Throat lips/teeth/gingiva Overall: no masses 02/25/2016 None Full Exam - General 1994 Ears/Nose/Throat oral cavity/pharynx/larynx Overall: oral mucosa clear 02/25/2016 None Full Exam - General 1994 Ears/Nose/Throat oral cavity/pharynx/larynx Overall: no masses 02/25/2016 None Full Exam - General 1994 Respiratory auscultation Overall: breath sounds clear bilaterally 02/25/2016 None Full Exam - General 1994 Respiratory respiratory effort/rhythm Overall: no retractions 02/25/2016 None Full Exam - General 1994 Respiratory respiratory effort/rhythm Overall: normal rate 02/25/2016 None Full Exam - General 1994 Cardiovascular extremities Overall: no clubbing 02/25/2016 None Full Exam - General 1994 Cardiovascular auscultation of heart Overall: regular rate 02/25/2016 None Full Exam - General 1994 Cardiovascular auscultation of heart Overall: normal heart sounds 02/25/2016 None Full Exam - General 1994 Cardiovascular auscultation of heart Overall: no murmurs 02/25/2016 None Full Exam - General 1994 Abdomen abdominal exam Overall: no tenderness 02/25/2016 None Full Exam - General 1994 Abdomen abdominal exam Overall: normal bowel sounds 02/25/2016 None Full Exam - General 1994 Musculoskeletal gait and station Overall: normal gait 02/25/2016 None Full Exam - General 1994 Musculoskeletal gait and station Overall: normal station 02/25/2016 None Full Exam - General 1994 Integument inspection of skin Overall: no rash, lesions 02/25/2016 None Full Exam - General 1994 Neurologic gait Romberg test: negative 02/25/2016 None Full Exam - General 1994 Neurologic coordination Iiuqlh-haur-emraid testing - left: dysmetria 02/25/2016 None Full Exam - General 1994 Neurologic coordination Acwvdy-ezha-eyyidg testing - right: dysmetria 02/25/2016 None Full Exam - General 1994 Neurologic cranial nerves Overall: crainial nerves 2 - 12 grossly intact 02/25/2016 None Full Exam - General 1994 Psychiatric orientation/consciousness Overall: oriented to person, place and time 02/25/2016 None Full Exam - General 1994 Psychiatric behavior/psychomotor activity Overall: no tics, normal psychomotor activity 02/25/2016 None Full Exam - General 1994 Psychiatric mood and affect Mood: depressed 02/25/2016 None Full Exam - General 1994 Psychiatric mood and affect Mood: anxious 02/25/2016 None Full Exam - General 1994 Psychiatric appearance Overall: well-groomed, good eye contact 02/25/2016 None Full Exam - General 1994 Neurologic coordination Tremors: resting 02/25/2016 None Full Exam - General 1994 Constitutional general appearance Overall: well developed 01/28/2016 None Full Exam - General 1994 Constitutional general appearance Overall: in no acute distress 01/28/2016 None Full Exam - General 1994 Constitutional general appearance Overall: well nourished 01/28/2016 None Full Exam - General 1994 Eyes conjunctiva/eyelids Overall: conjunctiva clear 01/28/2016 None Full Exam - General 1994 Eyes conjunctiva/eyelids Overall: cornea clear 01/28/2016 None Full Exam - General 1994 Eyes conjunctiva/eyelids Overall: eyelids normal 01/28/2016 None Full Exam - General 1994 Eyes pupils and irises Overall: pupils equal, round, reactive to light and accomodation 01/28/2016 None Full Exam - General 1994 Ears/Nose/Throat otoscopic exam Overall: external auditory canals clear 01/28/2016 None Full Exam - General 1994 Ears/Nose/Throat otoscopic exam Overall: tympanic membranes clear 01/28/2016 None Full Exam - General 1994 Ears/Nose/Throat lips/teeth/gingiva Overall: benign lips 01/28/2016 None Full Exam - General 1994 Ears/Nose/Throat lips/teeth/gingiva Overall: normal dentition 01/28/2016 None Full Exam - General 1994 Ears/Nose/Throat lips/teeth/gingiva Overall: benign gingiva 01/28/2016 None Full Exam - General 1994 Ears/Nose/Throat lips/teeth/gingiva Overall: no masses 01/28/2016 None Full Exam - General 1994 Ears/Nose/Throat oral cavity/pharynx/larynx Overall: oral mucosa clear 01/28/2016 None Full Exam - General 1994 Ears/Nose/Throat oral cavity/pharynx/larynx Overall: no masses 01/28/2016 None Full Exam - General 1994 Respiratory auscultation Overall: breath sounds clear bilaterally 01/28/2016 None Full Exam - General 1994 Respiratory respiratory effort/rhythm Overall: no retractions 01/28/2016 None Full Exam - General 1994 Respiratory respiratory effort/rhythm Overall: normal rate 01/28/2016 None Full Exam - General 1994 Cardiovascular extremities Overall: no clubbing 01/28/2016 None Full Exam - General 1994 Cardiovascular auscultation of heart Overall: regular rate 01/28/2016 None Full Exam - General 1994 Cardiovascular auscultation of heart Overall: normal heart sounds 01/28/2016 None Full Exam - General 1994 Cardiovascular auscultation of heart Overall: no murmurs 01/28/2016 None Full Exam - General 1994 Musculoskeletal gait and station Overall: normal gait 01/28/2016 None Full Exam - General 1994 Musculoskeletal gait and station Overall: normal station 01/28/2016 None Full Exam - General 1994 Integument inspection of skin Overall: no rash, lesions 01/28/2016 None Full Exam - General 1994 Psychiatric orientation/consciousness Overall: oriented to person, place and time 01/28/2016 None Full Exam - General 1994 Psychiatric behavior/psychomotor activity Overall: no tics, normal psychomotor activity 01/28/2016 None Full Exam - General 1994 Psychiatric appearance Overall: well-groomed, good eye contact 01/28/2016 None Full Exam - General 1994 Neurologic cranial nerves Overall: crainial nerves 2 - 12 grossly intact 01/28/2016 None Full Exam - General 1994 Neurologic coordination [id number]-[id number] testing - left: dysmetria 01/28/2016 None Full Exam - General 1994 Neurologic coordination Sjaldq-[id number]-rhlwaq testing - right: dysmetria 01/28/2016 None Full Exam - General 1994 Neurologic gait Romberg test: negative 01/28/2016 None Full Exam - General 1994 Psychiatric mood and affect Mood: anxious 01/28/2016 None Full Exam - General 1994 Psychiatric mood and affect Mood: depressed 01/28/2016 None Full Exam - General 1994 Abdomen abdominal exam Overall: no tenderness 01/28/2016 None Full Exam - General 1994 Abdomen abdominal exam Overall: normal bowel sounds 01/28/2016 None Full Exam - General 1994 Constitutional general appearance Overall: well developed 11/14/2015 None Full Exam - General 1994 Constitutional general appearance Overall: in no acute distress 11/14/2015 None Full Exam - General 1994 Constitutional general appearance Overall: well nourished 11/14/2015 None Full Exam - General 1994 Eyes conjunctiva/eyelids Overall: conjunctiva clear 11/14/2015 None Full Exam - General 1994 Eyes conjunctiva/eyelids Overall: cornea clear 11/14/2015 None Full Exam - General 1994 Eyes conjunctiva/eyelids Overall: eyelids normal 11/14/2015 None Full Exam - General 1994 Eyes pupils and irises Overall: pupils equal, round, reactive to light and accomodation 11/14/2015 None Full Exam - General 1994 Ears/Nose/Throat otoscopic exam Overall: external auditory canals clear 11/14/2015 None Full Exam - General 1994 Ears/Nose/Throat otoscopic exam Overall: tympanic membranes clear 11/14/2015 None Full Exam - General 1994 Ears/Nose/Throat lips/teeth/gingiva Overall: benign lips 11/14/2015 None Full Exam - General 1994 Ears/Nose/Throat lips/teeth/gingiva Overall: normal dentition 11/14/2015 None Full Exam - General 1994 Ears/Nose/Throat lips/teeth/gingiva Overall: benign gingiva 11/14/2015 None Full Exam - General 1994 Ears/Nose/Throat lips/teeth/gingiva Overall: no masses 11/14/2015 None Full Exam - General 1994 Ears/Nose/Throat oral cavity/pharynx/larynx Overall: oral mucosa clear 11/14/2015 None Full Exam - General 1994 Ears/Nose/Throat oral cavity/pharynx/larynx Overall: no masses 11/14/2015 None Full Exam - General 1994 Respiratory auscultation Overall: breath sounds clear bilaterally 11/14/2015 None Full Exam - General 1994 Respiratory respiratory effort/rhythm Overall: no retractions 11/14/2015 None Full Exam - General 1994 Respiratory respiratory effort/rhythm Overall: normal rate 11/14/2015 None Full Exam - General 1994 Cardiovascular extremities Overall: no clubbing 11/14/2015 None Full Exam - General 1994 Cardiovascular auscultation of heart Overall: regular rate 11/14/2015 None Full Exam - General 1994 Cardiovascular auscultation of heart Overall: normal heart sounds 11/14/2015 None Full Exam - General 1994 Cardiovascular auscultation of heart Overall: no murmurs 11/14/2015 None Full Exam - General 1994 Musculoskeletal gait and station Overall: normal gait 11/14/2015 None Full Exam - General 1994 Musculoskeletal gait and station Overall: normal station 11/14/2015 None Full Exam - General 1994 Integument inspection of skin Overall: no rash, lesions 11/14/2015 None Full Exam - General 1994 Psychiatric orientation/consciousness Overall: oriented to person, place and time 11/14/2015 None Full Exam - General 1994 Psychiatric behavior/psychomotor activity Overall: no tics, normal psychomotor activity 11/14/2015 None Full Exam - General 1994 Psychiatric mood and affect Overall: normal mood and affect 11/14/2015 None Full Exam - General 1994 Psychiatric appearance Overall: well-groomed, good eye contact 11/14/2015 None Full Exam - General 1994 Constitutional general appearance Overall: well developed 10/10/2015 None Full Exam - General 1994 Constitutional general appearance Overall: in no acute distress 10/10/2015 None Full Exam - General 1994 Constitutional general appearance Overall: well nourished 10/10/2015 None Full Exam - General 1994 Eyes conjunctiva/eyelids Overall: conjunctiva clear 10/10/2015 None Full Exam - General 1994 Eyes conjunctiva/eyelids Overall: cornea clear 10/10/2015 None Full Exam - General 1994 Eyes conjunctiva/eyelids Overall: eyelids normal 10/10/2015 None Full Exam - General 1994 Eyes pupils and irises Overall: pupils equal, round, reactive to light and accomodation 10/10/2015 None Full Exam - General 1994 Ears/Nose/Throat otoscopic exam Overall: external auditory canals clear 10/10/2015 None Full Exam - General 1994 Ears/Nose/Throat otoscopic exam Overall: tympanic membranes clear 10/10/2015 None Full Exam - General 1994 Ears/Nose/Throat lips/teeth/gingiva Overall: benign lips 10/10/2015 None Full Exam - General 1994 Ears/Nose/Throat lips/teeth/gingiva Overall: normal dentition 10/10/2015 None Full Exam - General 1994 Ears/Nose/Throat lips/teeth/gingiva Overall: benign gingiva 10/10/2015 None Full Exam - General 1994 Ears/Nose/Throat lips/teeth/gingiva Overall: no masses 10/10/2015 None Full Exam - General 1994 Ears/Nose/Throat oral cavity/pharynx/larynx Overall: oral mucosa clear 10/10/2015 None Full Exam - General 1994 Ears/Nose/Throat oral cavity/pharynx/larynx Overall: no masses 10/10/2015 None Full Exam - General 1994 Respiratory auscultation Overall: breath sounds clear bilaterally 10/10/2015 None Full Exam - General 1994 Respiratory respiratory effort/rhythm Overall: no retractions 10/10/2015 None Full Exam - General 1994 Respiratory respiratory effort/rhythm Overall: normal rate 10/10/2015 None Full Exam - General 1994 Cardiovascular extremities Overall: no clubbing 10/10/2015 None Full Exam - General 1994 Cardiovascular auscultation of heart Overall: regular rate 10/10/2015 None Full Exam - General 1994 Cardiovascular auscultation of heart Overall: normal heart sounds 10/10/2015 None Full Exam - General 1994 Cardiovascular auscultation of heart Overall: no murmurs 10/10/2015 None Full Exam - General 1994 Musculoskeletal gait and station Overall: normal gait 10/10/2015 None Full Exam - General 1994 Musculoskeletal gait and station Overall: normal station 10/10/2015 None Full Exam - General 1994 Integument inspection of skin Overall: no rash, lesions 10/10/2015 None Full Exam - General 1994 Psychiatric orientation/consciousness Overall: oriented to person, place and time 10/10/2015 None Full Exam - General 1994 Psychiatric behavior/psychomotor activity Overall: no tics, normal psychomotor activity 10/10/2015 None Full Exam - General 1994 Psychiatric mood and affect Overall: normal mood and affect 10/10/2015 None Full Exam - General 1994 Psychiatric mood and affect Mood: depressed 10/10/2015 None Full Exam - General 1994 Psychiatric appearance Overall: well-groomed, good eye contact 10/10/2015 None Full Exam - General 1994 Constitutional general appearance Overall: well nourished 09/12/2015 None Full Exam - General 1994 Constitutional general appearance Overall: well developed 09/12/2015 None Full Exam - General 1994 Constitutional general appearance Overall: in no acute distress 09/12/2015 None Full Exam - General 1994 Eyes conjunctiva/eyelids Overall: conjunctiva clear 09/12/2015 None Full Exam - General 1994 Eyes conjunctiva/eyelids Overall: eyelids normal 09/12/2015 None Full Exam - General 1994 Eyes conjunctiva/eyelids Overall: cornea clear 09/12/2015 None Full Exam - General 1994 Eyes pupils and irises Overall: pupils equal, round, reactive to light and accomodation 09/12/2015 None Full Exam - General 1994 Ears/Nose/Throat oral cavity/pharynx/larynx Overall: no masses 09/12/2015 None Full Exam - General 1994 Ears/Nose/Throat oral cavity/pharynx/larynx Overall: oral mucosa clear 09/12/2015 None Full Exam - General 1994 Ears/Nose/Throat lips/teeth/gingiva Overall: benign gingiva 09/12/2015 None Full Exam - General 1994 Ears/Nose/Throat lips/teeth/gingiva Overall: no masses 09/12/2015 None Full Exam - General 1994 Ears/Nose/Throat lips/teeth/gingiva Overall: normal dentition 09/12/2015 None Full Exam - General 1994 Ears/Nose/Throat lips/teeth/gingiva Overall: benign lips 09/12/2015 None Full Exam - General 1994 Ears/Nose/Throat otoscopic exam Overall: tympanic membranes clear 09/12/2015 None Full Exam - General 1994 Ears/Nose/Throat otoscopic exam Overall: external auditory canals clear 09/12/2015 None Full Exam - General 1994 Ears/Nose/Throat oral cavity/pharynx/larynx Oropharynx: erythema 09/12/2015 mild Full Exam - General 1994 Respiratory respiratory effort/rhythm Overall: normal rate 09/12/2015 None Full Exam - General 1994 Respiratory respiratory effort/rhythm Overall: no retractions 09/12/2015 None Full Exam - General 1994 Respiratory auscultation Overall: breath sounds clear bilaterally 09/12/2015 None Full Exam - General 1994 Cardiovascular auscultation of heart Overall: regular rate 09/12/2015 None Full Exam - General 1994 Cardiovascular auscultation of heart Overall: normal heart sounds 09/12/2015 None Full Exam - General 1994 Cardiovascular auscultation of heart Overall: no murmurs 09/12/2015 None Full Exam - General 1994 Cardiovascular extremities Overall: no clubbing 09/12/2015 None Full Exam - General 1994 Musculoskeletal gait and station Overall: normal station 09/12/2015 None Full Exam - General 1994 Musculoskeletal gait and station Overall: normal gait 09/12/2015 None Full Exam - General 1994 Integument inspection of skin Overall: no rash, lesions 09/12/2015 None Full Exam - General 1994 Integument inspection of skin Pigmentation: ecchymosis 09/12/2015 generalized Full Exam - General 1994 Psychiatric orientation/consciousness Overall: oriented to person, place and time 09/12/2015 None Full Exam - General 1994 Psychiatric behavior/psychomotor activity Overall: no tics, normal psychomotor activity 09/12/2015 None Full Exam - General 1994 Psychiatric appearance Overall: well-groomed, good eye contact 09/12/2015 None Full Exam - General 1994 Psychiatric mood and affect Overall: normal mood and affect 09/12/2015 None Full Exam - General 1994 Psychiatric mood and affect Mood: depressed 09/12/2015 None Full Exam - General 1994 Constitutional general appearance Overall: well nourished 04/09/2015 None Full Exam - General 1994 Constitutional general appearance Overall: well developed 04/09/2015 None Full Exam - General 1994 Constitutional general appearance Overall: in no acute distress 04/09/2015 None Full Exam - General 1994 Eyes pupils and irises Overall: pupils equal, round, reactive to light and accomodation 04/09/2015 None Full Exam - General 1994 Eyes conjunctiva/eyelids Overall: conjunctiva clear 04/09/2015 None Full Exam - General 1994 Eyes conjunctiva/eyelids Overall: eyelids normal 04/09/2015 None Full Exam - General 1994 Eyes conjunctiva/eyelids Overall: cornea clear 04/09/2015 None Full Exam - General 1994 Ears/Nose/Throat otoscopic exam Overall: external auditory canals clear 04/09/2015 None Full Exam - General 1994 Ears/Nose/Throat otoscopic exam Overall: tympanic membranes clear 04/09/2015 None Full Exam - General 1994 Ears/Nose/Throat oral cavity/pharynx/larynx Overall: oral mucosa clear 04/09/2015 None Full Exam - General 1994 Ears/Nose/Throat oral cavity/pharynx/larynx Overall: oropharyngeal mucosa clear 04/09/2015 None Full Exam - General 1994 Ears/Nose/Throat oral cavity/pharynx/larynx Overall: no masses 04/09/2015 None Full Exam - General 1994 Respiratory auscultation Overall: breath sounds clear bilaterally 04/09/2015 None Full Exam - General 1994 Respiratory respiratory effort/rhythm Overall: no retractions 04/09/2015 None Full Exam - General 1994 Respiratory respiratory effort/rhythm Overall: normal rate 04/09/2015 None Full Exam - General 1994 Cardiovascular extremities Overall: no clubbing 04/09/2015 None Full Exam - General 1994 Cardiovascular auscultation of heart Overall: regular rate 04/09/2015 None Full Exam - General 1994 Cardiovascular auscultation of heart Overall: normal heart sounds 04/09/2015 None Full Exam - General 1994 Cardiovascular auscultation of heart Overall: no murmurs 04/09/2015 None Full Exam - General 1994 Abdomen abdominal exam Overall: no tenderness 04/09/2015 None Full Exam - General 1994 Abdomen abdominal exam Overall: normal bowel sounds 04/09/2015 None Full Exam - General 1994 Musculoskeletal gait and station Overall: normal gait 04/09/2015 None Full Exam - General 1994 Musculoskeletal gait and station Overall: normal station 04/09/2015 None Full Exam - General 1994 Neurologic cranial nerves Overall: crainial nerves 2 - 12 grossly intact 04/09/2015 None Full Exam - General 1994 Psychiatric orientation/consciousness Overall: oriented to person, place and time 04/09/2015 None Full Exam - General 1994 Psychiatric orientation/consciousness Overall: oriented to person, place and time 10/05/2014 None Full Exam - General 1994 Neurologic cranial nerves Overall: crainial nerves 2 - 12 grossly intact 10/05/2014 None Full Exam - General 1994 Musculoskeletal gait and station Overall: normal station 10/05/2014 None Full Exam - General 1994 Musculoskeletal gait and station Overall: normal gait 10/05/2014 None Full Exam - General 1994 Abdomen abdominal exam Overall: no tenderness 10/05/2014 None Full Exam - General 1994 Abdomen abdominal exam Overall: normal bowel sounds 10/05/2014 None Full Exam - General 1994 Cardiovascular auscultation of heart Overall: regular rate 10/05/2014 None Full Exam - General 1994 Cardiovascular auscultation of heart Overall: normal heart sounds 10/05/2014 None Full Exam - General 1994 Cardiovascular auscultation of heart Overall: no murmurs 10/05/2014 None Full Exam - General 1994 Cardiovascular extremities Overall: no clubbing 10/05/2014 None Full Exam - General 1994 Respiratory auscultation Overall: breath sounds clear bilaterally 10/05/2014 None Full Exam - General 1994 Respiratory respiratory effort/rhythm Overall: normal rate 10/05/2014 None Full Exam - General 1994 Respiratory respiratory effort/rhythm Overall: no retractions 10/05/2014 None Full Exam - General 1994 Ears/Nose/Throat otoscopic exam Overall: tympanic membranes clear 10/05/2014 None Full Exam - General 1994 Ears/Nose/Throat otoscopic exam Overall: external auditory canals clear 10/05/2014 None Full Exam - General 1994 Ears/Nose/Throat oral cavity/pharynx/larynx Overall: oropharyngeal mucosa clear 10/05/2014 None Full Exam - General 1994 Ears/Nose/Throat oral cavity/pharynx/larynx Overall: no masses 10/05/2014 None Full Exam - General 1994 Ears/Nose/Throat oral cavity/pharynx/larynx Overall: oral mucosa clear 10/05/2014 None Full Exam - General 1994 Eyes conjunctiva/eyelids Overall: conjunctiva clear 10/05/2014 None Full Exam - General 1994 Eyes conjunctiva/eyelids Overall: eyelids normal 10/05/2014 None Full Exam - General 1994 Eyes conjunctiva/eyelids Overall: cornea clear 10/05/2014 None Full Exam - General 1994 Eyes pupils and irises Overall: pupils equal, round, reactive to light and accomodation 10/05/2014 None Full Exam - General 1994 Constitutional general appearance Overall: well nourished 10/05/2014 None Full Exam - General 1994 Constitutional general appearance Overall: well developed 10/05/2014 None Full Exam - General 1994 Constitutional general appearance Overall: in no acute distress 10/05/2014 None Full Exam - General 1994 Constitutional general appearance Development: well developed 09/07/2014 None Full Exam - General 1994 Constitutional general appearance Development: appears stated age 0609/07/2014 None Full Exam - General 1994 Constitutional general appearance Hygiene/Attention to Grooming: good hygiene 09/07/2014 None Full Exam - General 1994 Eyes conjunctiva/eyelids Overall: conjunctiva clear 09/07/2014 None Full Exam - General 1994 Eyes conjunctiva/eyelids Overall: cornea clear 09/07/2014 None Full Exam - General 1994 Eyes conjunctiva/eyelids Overall: eyelids normal 09/07/2014 None Full Exam - General 1994 Eyes pupils and irises Overall: pupils equal, round, reactive to light and accomodation 09/07/2014 None Full Exam - General 1994 Ears/Nose/Throat otoscopic exam Overall: external auditory canals clear 09/07/2014 None Full Exam - General 1994 Ears/Nose/Throat otoscopic exam Overall: tympanic membranes clear 09/07/2014 None Full Exam - General 1994 Ears/Nose/Throat lips/teeth/gingiva Overall: benign lips 09/07/2014 None Full Exam - General 1994 Ears/Nose/Throat lips/teeth/gingiva Overall: normal dentition 09/07/2014 None Full Exam - General 1994 Ears/Nose/Throat oral cavity/pharynx/larynx Overall: oral mucosa clear 09/07/2014 None Full Exam - General 1994 Ears/Nose/Throat oral cavity/pharynx/larynx Overall: oropharyngeal mucosa clear 09/07/2014 None Full Exam - General 1994 Ears/Nose/Throat oral cavity/pharynx/larynx Overall: hypopharynx benign 09/07/2014 None Full Exam - General 1994 Ears/Nose/Throat oral cavity/pharynx/larynx Overall: no masses 09/07/2014 None Full Exam - General 1994 Respiratory auscultation Overall: breath sounds clear bilaterally 09/07/2014 None Full Exam - General 1994 Respiratory respiratory effort/rhythm Overall: no retractions 09/07/2014 None Full Exam - General 1994 Respiratory respiratory effort/rhythm Overall: normal rate 09/07/2014 None Full Exam - General 1994 Cardiovascular extremities Overall: no clubbing 09/07/2014 None Full Exam - General 1994 Cardiovascular auscultation of heart Overall: regular rate 09/07/2014 None Full Exam - General 1994 Cardiovascular auscultation of heart Overall: normal heart sounds 09/07/2014 None Full Exam - General 1994 Abdomen abdominal exam Overall: no tenderness 09/07/2014 None Full Exam - General 1994 Abdomen abdominal exam Overall: normal bowel sounds 09/07/2014 None Full Exam - General 1994 Lymphatic neck nodes Overall: anterior cervical chain benign 09/07/2014 None Full Exam - General 1994 Lymphatic neck nodes Overall: posterior cervical chain benign 09/07/2014 None Full Exam - General 1994 Neurologic deep tendon reflexes Overall: deep tendon reflexes intact 09/07/2014 None Full Exam - General 1994 Neurologic cranial nerves Overall: crainial nerves 2 - 12 grossly intact 09/07/2014 None Full Exam - General 1994 Psychiatric orientation/consciousness Overall: oriented to person, place and time 09/07/2014 None Full Exam - General 1994 Psychiatric mood and affect Overall: normal mood and affect 09/07/2014 None Full Exam - General 1994 Integument inspection of skin Pigmentation: ecchymosis 09/07/2014 scattered bruises noted to arms and legs Full Exam - Dermatology Constitutional general appearance Overall: well nourished 07/16/2014 None Full Exam - Dermatology Constitutional general appearance Overall: well developed 07/16/2014 None Full Exam - Dermatology Constitutional general appearance Overall: in no acute distress 07/16/2014 None Full Exam - Dermatology Constitutional general appearance Overall: of normal body habitus 07/16/2014 None Full Exam - Dermatology Constitutional general appearance Overall: well groomed 07/16/2014 None Full Exam - Dermatology Psychiatric orientation Overall: oriented to person, place and time 07/16/2014 None Full Exam - Dermatology Integument insp & palp - head/face Lesion: excoriation 07/16/2014 right orthodox, redness right eyelid Full Exam - Dermatology Eyes conjunctiva/eyelids Overall: clear conjunctiva bilaterally 07/16/2014 None Full Exam - Dermatology Eyes conjunctiva/eyelids Right eyelid: erythema 07/16/2014 None Full Exam - Dermatology Ears/Nose/Throat oropharynx Overall: clear oral mucosa 07/16/2014 None Full Exam - General 1994 Constitutional general appearance Development: well developed 04/02/2014 None Full Exam - General 1994 Constitutional general appearance Development: appears stated age 0104/02/2014 None Full Exam - General 1994 Constitutional general appearance Hygiene/Attention to Grooming: good hygiene 04/02/2014 None Full Exam - General 1994 Eyes conjunctiva/eyelids Overall: conjunctiva clear 04/02/2014 None Full Exam - General 1994 Eyes conjunctiva/eyelids Overall: cornea clear 04/02/2014 None Full Exam - General 1994 Eyes conjunctiva/eyelids Overall: eyelids normal 04/02/2014 None Full Exam - General 1994 Eyes pupils and irises Overall: pupils equal, round, reactive to light and accomodation 04/02/2014 None Full Exam - General 1994 Ears/Nose/Throat otoscopic exam Overall: external auditory canals clear 04/02/2014 None Full Exam - General 1994 Ears/Nose/Throat otoscopic exam Overall: tympanic membranes clear 04/02/2014 None Full Exam - General 1994 Ears/Nose/Throat lips/teeth/gingiva Overall: benign lips 04/02/2014 None Full Exam - General 1994 Ears/Nose/Throat lips/teeth/gingiva Overall: normal dentition 04/02/2014 None Full Exam - General 1994 Ears/Nose/Throat oral cavity/pharynx/larynx Overall: oral mucosa clear 04/02/2014 None Full Exam - General 1994 Ears/Nose/Throat oral cavity/pharynx/larynx Overall: oropharyngeal mucosa clear 04/02/2014 None Full Exam - General 1994 Ears/Nose/Throat oral cavity/pharynx/larynx Overall: hypopharynx benign 04/02/2014 None Full Exam - General 1994 Ears/Nose/Throat oral cavity/pharynx/larynx Overall: no masses 04/02/2014 None Full Exam - General 1994 Respiratory respiratory effort/rhythm Overall: no retractions 04/02/2014 None Full Exam - General 1994 Respiratory respiratory effort/rhythm Overall: normal rate 04/02/2014 None Full Exam - General 1994 Cardiovascular extremities Overall: no clubbing 04/02/2014 None Full Exam - General 1994 Cardiovascular auscultation of heart Overall: regular rate 04/02/2014 None Full Exam - General 1994 Cardiovascular auscultation of heart Overall: normal heart sounds 04/02/2014 None Full Exam - General 1994 Integument inspection of skin Overall: few scattered moles, no gross abnormalities 04/02/2014 None Full Exam - General 1994 Neurologic deep tendon reflexes Overall: deep tendon reflexes intact 04/02/2014 None Full Exam - General 1994 Neurologic cranial nerves Overall: crainial nerves 2 - 12 grossly intact 04/02/2014 None Full Exam - General 1994 Psychiatric orientation/consciousness Overall: oriented to person, place and time 04/02/2014 None Full Exam - General 1994 Psychiatric mood and affect Overall: normal mood and affect 04/02/2014 None Full Exam - General 1994 Respiratory auscultation Upper lung field: a normal exam 04/02/2014 None Full Exam - General 1994 Respiratory auscultation Lower lung field: crackles 04/02/2014 None Full Exam - General 1994 Constitutional general appearance Development: well developed 12/14/2013 None Full Exam - General 1994 Constitutional general appearance Development: appears stated age 0912/14/2013 None Full Exam - General 1994 Constitutional general appearance Hygiene/Attention to Grooming: good hygiene 12/14/2013 None Full Exam - General 1994 Eyes conjunctiva/eyelids Overall: conjunctiva clear 12/14/2013 None Full Exam - General 1994 Eyes conjunctiva/eyelids Overall: cornea clear 12/14/2013 None Full Exam - General 1994 Eyes conjunctiva/eyelids Overall: eyelids normal 12/14/2013 None Full Exam - General 1994 Eyes pupils and irises Overall: pupils equal, round, reactive to light and accomodation 12/14/2013 None Full Exam - General 1994 Ears/Nose/Throat otoscopic exam Overall: external auditory canals clear 12/14/2013 None Full Exam - General 1994 Ears/Nose/Throat otoscopic exam Overall: tympanic membranes clear 12/14/2013 None Full Exam - General 1994 Ears/Nose/Throat lips/teeth/gingiva Overall: benign lips 12/14/2013 None Full Exam - General 1995 Ears/Nose/Throat lips/teeth/gingiva Overall: normal dentition 12/14/2013 None Full Exam - General 1995 Ears/Nose/Throat oral cavity/pharynx/larynx Overall: oral mucosa clear 12/14/2013 None Full Exam - General 1994 Ears/Nose/Throat oral cavity/pharynx/larynx Overall: oropharyngeal mucosa clear 12/14/2013 None Full Exam - General 1995 Ears/Nose/Throat oral cavity/pharynx/larynx Overall: hypopharynx benign 12/14/2013 None Full Exam - General 1994 Ears/Nose/Throat oral cavity/pharynx/larynx Overall: no masses 12/14/2013 None Full Exam - General 1994 Respiratory auscultation Overall: breath sounds clear bilaterally 12/14/2013 None Full Exam - General 1994 Respiratory respiratory effort/rhythm Overall: no retractions 12/14/2013 None Full Exam - General 1994 Respiratory respiratory effort/rhythm Overall: normal rate 12/14/2013 None Full Exam - General 1994 Cardiovascular extremities Overall: no clubbing 12/14/2013 None Full Exam - General 1994 Cardiovascular auscultation of heart Overall: regular rate 12/14/2013 None Full Exam - General 1994 Cardiovascular auscultation of heart Overall: normal heart sounds 12/14/2013 None Full Exam - General 1994 Abdomen abdominal exam Overall: no tenderness 12/14/2013 None Full Exam - General 1994 Abdomen abdominal exam Overall: normal bowel sounds 12/14/2013 None Full Exam - General 1994 Integument inspection of skin Overall: few scattered moles, no gross abnormalities 12/14/2013 None Full Exam - General 1994 Neurologic deep tendon reflexes Overall: deep tendon reflexes intact 12/14/2013 None Full Exam - General 1994 Neurologic cranial nerves Overall: crainial nerves 2 - 12 grossly intact 12/14/2013 None Full Exam - General 1994 Psychiatric orientation/consciousness Overall: oriented to person, place and time 12/14/2013 None Full Exam - General 1994 Psychiatric mood and affect Overall: normal mood and affect 12/14/2013 None Full Exam - General 1994 Musculoskeletal spine, ribs and pelvis Ribs: a normal exam 12/14/2013 tender on left Full Exam - General 1994 Constitutional general appearance Development: well developed 08/01/2013 None Full Exam - General 1994 Constitutional general appearance Development: appears stated age 0508/01/2013 None Full Exam - General 1994 Constitutional general appearance Hygiene/Attention to Grooming: good hygiene 08/01/2013 None Full Exam - General 1994 Eyes conjunctiva/eyelids Overall: conjunctiva clear 08/01/2013 None Full Exam - General 1994 Eyes conjunctiva/eyelids Overall: cornea clear 08/01/2013 None Full Exam - General 1994 Eyes conjunctiva/eyelids Overall: eyelids normal 08/01/2013 None Full Exam - General 1994 Eyes pupils and irises Overall: pupils equal, round, reactive to light and accomodation 08/01/2013 None Full Exam - General 1994 Ears/Nose/Throat otoscopic exam Overall: external auditory canals clear 08/01/2013 None Full Exam - General 1994 Ears/Nose/Throat otoscopic exam Overall: tympanic membranes clear 08/01/2013 None Full Exam - General 1994 Ears/Nose/Throat lips/teeth/gingiva Overall: benign lips 08/01/2013 None Full Exam - General 1994 Ears/Nose/Throat lips/teeth/gingiva Overall: normal dentition 08/01/2013 None Full Exam - General 1994 Ears/Nose/Throat oral cavity/pharynx/larynx Overall: oral mucosa clear 08/01/2013 None Full Exam - General 1994 Ears/Nose/Throat oral cavity/pharynx/larynx Overall: oropharyngeal mucosa clear 08/01/2013 None Full Exam - General 1994 Ears/Nose/Throat oral cavity/pharynx/larynx Overall: hypopharynx benign 08/01/2013 None Full Exam - General 1994 Ears/Nose/Throat oral cavity/pharynx/larynx Overall: no masses 08/01/2013 None Full Exam - General 1994 Respiratory auscultation Overall: breath sounds clear bilaterally 08/01/2013 None Full Exam - General 1994 Respiratory respiratory effort/rhythm Overall: no retractions 08/01/2013 None Full Exam - General 1994 Respiratory respiratory effort/rhythm Overall: normal rate 08/01/2013 None Full Exam - General 1994 Cardiovascular extremities Overall: no clubbing 08/01/2013 None Full Exam - General 1994 Cardiovascular auscultation of heart Overall: regular rate 08/01/2013 None Full Exam - General 1994 Cardiovascular auscultation of heart Overall: normal heart sounds 08/01/2013 None Full Exam - General 1994 Abdomen abdominal exam Overall: no tenderness 08/01/2013 None Full Exam - General 1994 Abdomen abdominal exam Overall: normal bowel sounds 08/01/2013 None Full Exam - General 1994 Integument inspection of skin Overall: few scattered moles, no gross abnormalities 08/01/2013 None Full Exam - General 1994 Neurologic deep tendon reflexes Overall: deep tendon reflexes intact 08/01/2013 None Full Exam - General 1994 Neurologic cranial nerves Overall: crainial nerves 2 - 12 grossly intact 08/01/2013 None Full Exam - General 1994 Psychiatric orientation/consciousness Overall: oriented to person, place and time 08/01/2013 None Full Exam - General 1994 Psychiatric mood and affect Overall: normal mood and affect 08/01/2013 None Full Exam - General 1994 Lymphatic neck nodes Overall: anterior cervical chain benign 08/01/2013 None Full Exam - General 1994 Lymphatic neck nodes Overall: posterior cervical chain benign 08/01/2013 None Full Exam - General 1994 Constitutional general appearance Development: appears stated age 0205/02/2013 None Full Exam - General 1994 Constitutional general appearance Development: well developed 05/02/2013 None Full Exam - General 1994 Constitutional general appearance Hygiene/Attention to Grooming: good hygiene 05/02/2013 None Full Exam - General 1994 Eyes conjunctiva/eyelids Overall: conjunctiva clear 05/02/2013 None Full Exam - General 1994 Eyes conjunctiva/eyelids Overall: cornea clear 05/02/2013 None Full Exam - General 1994 Eyes conjunctiva/eyelids Overall: eyelids normal 05/02/2013 None Full Exam - General 1994 Eyes pupils and irises Overall: pupils equal, round, reactive to light and accomodation 05/02/2013 None Full Exam - General 1994 Ears/Nose/Throat otoscopic exam Overall: external auditory canals clear 05/02/2013 None Full Exam - General 1994 Ears/Nose/Throat otoscopic exam Overall: tympanic membranes clear 05/02/2013 None Full Exam - General 1994 Ears/Nose/Throat lips/teeth/gingiva Overall: benign lips 05/02/2013 None Full Exam - General 1995 Ears/Nose/Throat lips/teeth/gingiva Overall: normal dentition 05/02/2013 None Full Exam - General 1994 Ears/Nose/Throat oral cavity/pharynx/larynx Overall: hypopharynx benign 05/02/2013 None Full Exam - General 1994 Ears/Nose/Throat oral cavity/pharynx/larynx Overall: no masses 05/02/2013 None Full Exam - General 1994 Ears/Nose/Throat oral cavity/pharynx/larynx Overall: oral mucosa clear 05/02/2013 None Full Exam - General 1995 Ears/Nose/Throat oral cavity/pharynx/larynx Overall: oropharyngeal mucosa clear 05/02/2013 None Full Exam - General 1994 Respiratory auscultation Overall: breath sounds clear bilaterally 05/02/2013 None Full Exam - General 1994 Respiratory respiratory effort/rhythm Overall: no retractions 05/02/2013 None Full Exam - General 1994 Respiratory respiratory effort/rhythm Overall: normal rate 05/02/2013 None Full Exam - General 1994 Cardiovascular extremities Overall: no clubbing 05/02/2013 None Full Exam - General 1994 Cardiovascular auscultation of heart Overall: normal heart sounds 05/02/2013 None Full Exam - General 1994 Cardiovascular auscultation of heart Overall: regular rate 05/02/2013 None Full Exam - General 1994 Abdomen abdominal exam Overall: no tenderness 05/02/2013 None Full Exam - General 1994 Abdomen abdominal exam Overall: normal bowel sounds 05/02/2013 None Full Exam - General 1994 Integument inspection of skin Overall: few scattered moles, no gross abnormalities 05/02/2013 None Full Exam - General 1994 Neurologic deep tendon reflexes Overall: deep tendon reflexes intact 05/02/2013 None Full Exam - General 1994 Neurologic cranial nerves Overall: crainial nerves 2 - 12 grossly intact 05/02/2013 None Full Exam - General 1994 Psychiatric orientation/consciousness Overall: oriented to person, place and time 05/02/2013 None Full Exam - General 1994 Psychiatric mood and affect Overall: normal mood and affect 05/02/2013 None Full Exam - General 1994 Ears/Nose/Throat otoscopic exam Overall: external auditory canals clear 04/18/2013 None Full Exam - General 1994 Ears/Nose/Throat otoscopic exam Overall: tympanic membranes clear 04/18/2013 None Full Exam - General 1994 Ears/Nose/Throat lips/teeth/gingiva Overall: benign lips 04/18/2013 None Full Exam - General 1994 Ears/Nose/Throat lips/teeth/gingiva Overall: normal dentition 04/18/2013 None Full Exam - General 1994 Ears/Nose/Throat oral cavity/pharynx/larynx Overall: oral mucosa clear 04/18/2013 None Full Exam - General 1994 Ears/Nose/Throat oral cavity/pharynx/larynx Overall: oropharyngeal mucosa clear 04/18/2013 None Full Exam - General 1994 Ears/Nose/Throat oral cavity/pharynx/larynx Overall: hypopharynx benign 04/18/2013 None Full Exam - General 1994 Ears/Nose/Throat oral cavity/pharynx/larynx Overall: no masses 04/18/2013 None Full Exam - General 1994 Respiratory auscultation Overall: breath sounds clear bilaterally 04/18/2013 None Full Exam - General 1994 Respiratory respiratory effort/rhythm Overall: no retractions 04/18/2013 None Full Exam - General 1994 Respiratory respiratory effort/rhythm Overall: normal rate 04/18/2013 None Full Exam - General 1994 Cardiovascular extremities Overall: no clubbing 04/18/2013 None Full Exam - General 1994 Cardiovascular auscultation of heart Overall: regular rate 04/18/2013 None Full Exam - General 1994 Constitutional general appearance Development: well developed 04/18/2013 None Full Exam - General 1994 Constitutional general appearance Development: appears stated age 0104/18/2013 None Full Exam - General 1994 Constitutional general appearance Hygiene/Attention to Grooming: good hygiene 04/18/2013 None Full Exam - General 1994 Eyes conjunctiva/eyelids Overall: conjunctiva clear 04/18/2013 None Full Exam - General 1994 Eyes conjunctiva/eyelids Overall: cornea clear 04/18/2013 None Full Exam - General 1994 Eyes conjunctiva/eyelids Overall: eyelids normal 04/18/2013 None Full Exam - General 1994 Eyes pupils and irises Overall: pupils equal, round, reactive to light and accomodation 04/18/2013 None Full Exam - General 1994 Cardiovascular auscultation of heart Overall: normal heart sounds 04/18/2013 None Full Exam - General 1994 Abdomen abdominal exam Overall: no tenderness 04/18/2013 None Full Exam - General 1994 Abdomen abdominal exam Overall: normal bowel sounds 04/18/2013 None Full Exam - General 1994 Integument inspection of skin Overall: few scattered moles, no gross abnormalities 04/18/2013 None Full Exam - General 1994 Neurologic deep tendon reflexes Overall: deep tendon reflexes intact 04/18/2013 None Full Exam - General 1994 Neurologic cranial nerves Overall: crainial nerves 2 - 12 grossly intact 04/18/2013 None Full Exam - General 1994 Psychiatric orientation/consciousness Overall: oriented to person, place and time 04/18/2013 None Full Exam - General 1994 Psychiatric mood and affect Overall: normal mood and affect 04/18/2013 None Procedures Procedure Codes Date THER/PROPH/DIAG INJ SC/IM CPT-4: 64962 09/15/2016 TRIAMCINOLONE ACET INJ NOS CPT-4: J3301 09/15/2016 ADMIN INFLUENZA VIRUS VAC CPT-4: G0008 01/08/2016 ADMIN PNEUMOCOCCAL VACCINE SNOMED CT: 68266101 CPT-4: G0009 01/08/2016 PNEUMOCOCCAL VACC 13 RIVERA IM Formatting Model/CDA Sections, Assigned to/Aliya Muñoz SNOMED CT: 18408967 CPT-4: 28174Ugoierr 01/08/2016 FLU VACC 4 RIVERA 3 YRS PLUS IM SNOMED CT: 31305113 CPT-4: 40816 01/08/2016 THER/PROPH/DIAG INJ SC/IM CPT-4: 56056 04/02/2014 TRIAMCINOLONE ACET INJ NOS CPT-4: J3301 04/02/2014 ROCEPHIN, PER 250 MG CPT- 4: J0696 04/02/2014 TRIAMCINOLONE ACET INJ NOS CPT-4: J3301 08/01/2013 THER/PROPH/DIAG INJ SC/IM CPT-4: 06004 08/01/2013 Vital Signs Date Vital 09/26/2018 Blood Pressure 1: 124/60 Code: 8480-6 BMI: 36.9 Code: 41963-6 Heart Rate 1: 73 bpm Height: 5'5" SpO2: 95% Weight: 222 lbs 07/27/2018 Blood Pressure 1: 132/74 Code: 8480-6 BMI: 36.3 Code: 86821-3 Heart Rate 1: 73 bpm Height: 5'5" SpO2: 98% Weight: 218 lbs 01/25/2018 Blood Pressure 1: 130/68 Code: 8480-6 BMI: 34.4 Code: 05299-4 Heart Rate 1: 91 bpm Height: 5'5" SpO2: 95% Weight: 207 lbs 10/06/2017 Blood Pressure 1: 118/78 Code: 8480-6 BMI: 34.3 Code: 94986-8 Heart Rate 1: 75 bpm Height: 5'5" SpO2: 98% Weight: 206 lbs 09/27/2017 Blood Pressure 1: 136/88 Code: 8480-6 BMI: 35.4 Code: 12919-8 Heart Rate 1: 86 bpm Height: 5'5" SpO2: 98% Weight: 213 lbs 07/23/2017 Blood Pressure 1: 106/58 Code: 8480-6 BMI: 34.8 Code: 80241-8 Heart Rate 1: 70 bpm Height: 5'5" SpO2: 96% Weight: 209 lbs 06/01/2017 Blood Pressure 1: 150/96 Code: 8480-6 BMI: 34.4 Code: 96894-6 Heart Rate 1: 82 bpm Height: 5'5" SpO2: 99% Weight: 207 lbs 05/11/2017 Blood Pressure 1: 144/90 Code: 8480-6 BMI: 34.6 Code: 04936-4 Heart Rate 1: 76 bpm Height: 5'5" SpO2: 98% Weight: 208 lbs 10/30/2016 Blood Pressure 1: 172/104 Code: 8480-6 Blood Pressure 1: 158/98 Code: 8480-6 BMI: 34.7 Code: 92915-5 Heart Rate 1: 70 bpm Height: 5'5" SpO2: 97% Temperature: 36.2 (C) / 97.1 (F) Weight: 208 lbs 10 oz 04/20/2016 Blood Pressure 1: 144/86 Code: 8480-6 BMI: 34.3 Code: 33881-3 Heart Rate 1: 68 bpm Height: 5'5" SpO2: 97% Weight: 206 lbs 02/25/2016 Blood Pressure 1: 122/82 Code: 8480-6 BMI: 34.4 Code: 99631-0 Heart Rate 1: 86 bpm Height: 5'5" SpO2: 94% Weight: 207 lbs 01/28/2016 Blood Pressure 1: 128/86 Code: 8480-6 BMI: 33.3 Code: 95880-8 Heart Rate 1: 86 bpm Height: 5'5" SpO2: 96% Weight: 200 lbs 11/14/2015 Blood Pressure 1: 140/90 Code: 8480-6 Blood Pressure 1: 138/88 Code: 8480-6 BMI: 33.3 Code: 14953-8 Heart Rate 1: 98 bpm Height: 5'5" SpO2: 97% Weight: 200 lbs 10/10/2015 Blood Pressure 1: 132/80 Code: 8480-6 BMI: 33.3 Code: 57914-4 Heart Rate 1: 74 bpm Height: 5'5" SpO2: 96% Weight: 200 lbs 09/12/2015 Blood Pressure 1: 148/90 Code: 8480-6 BMI: 32.9 Code: 84543-7 Heart Rate 1: 94 bpm Height: 5'5" SpO2: 97% Weight: 198 lbs 04/09/2015 Blood Pressure 1: 160/82 Code: 8480-6 Blood Pressure 1: 130/84 Code: 8480-6 BMI: 32.4 Code: 19415-1 Heart Rate 1: 74 bpm Height: 5'5" SpO2: 95% Weight: 195 lbs 10/05/2014 Blood Pressure 1: 140/80 Code: 8480-6 BMI: 30.5 Code: 92917-7 Heart Rate 1: 79 bpm Height: 5'5" SpO2: 98% Weight: 183 lbs 09/07/2014 Blood Pressure 1: 142/96 Code: 8480-6 BMI: 32.1 Code: 67738-6 Heart Rate 1: 72 bpm Height: 5'5" SpO2: 98% Temperature: 36.5 (C) / 97.7 (F) Weight: 193 lbs 07/16/2014 Blood Pressure 1: 138/82 Code: 8480-6 BMI: 31.8 Code: 39933-9 Heart Rate 1: 76 bpm Height: 5'5" Weight: 191 lbs 04/02/2014 Blood Pressure 1: 148/90 Code: 8480-6 BMI: 33.8 Code: 17921-0 Heart Rate 1: 68 bpm Height: 5'5" Temperature: 36.9 (C) / 98.4 (F) Weight: 203 lbs 12/14/2013 Blood Pressure 1: 140/88 Code: 8480-6 BMI: 35.3 Code: 05029-0 Heart Rate 1: 91 bpm Height: 5'5" SpO2: 97% Weight: 212 lbs 08/01/2013 Blood Pressure 1: 126/68 Code: 8480-6 BMI: 35.1 Code: 59739-3 Heart Rate 1: 76 bpm Height: 5'5" Temperature: 36.7 (C) / 98.1 (F) Weight: 211 lbs 05/02/2013 Blood Pressure 1: 118/86 Code: 8480-6 BMI: 34.9 Code: 77895-8 Heart Rate 1: 76 bpm Height: 5'5" Weight: 209 lbs 8 oz 04/18/2013 Blood Pressure 1: 118/60 Code: 8480-6 BMI: 35.3 Code: 38508-4 Heart Rate 1: 68 bpm Height: 5'5" Weight: 212 lbs Functional Status No Functional Status data History of Present Illness Symptom Name Status Result Effective Date Notes Location lumbar spine 09/26/2018 None Quality aching 09/26/2018 None Quality constant 09/26/2018 None Onset and Resolution gradual in onset 09/26/2018 None Onset of Symptom 2 months ago 09/26/2018 None Frequency of Episodes daily 09/26/2018 None Quality constant 09/26/2018 None Quality pitting 09/26/2018 None Quality painful 09/26/2018 None Onset and Resolution sudden in onset 09/26/2018 None Onset of Symptom 3 days ago 09/26/2018 None Location on both legs 09/26/2018 None Location on both ankles 09/26/2018 None Frequency of Episodes daily 07/27/2018 None Triggers no known associated factors 07/27/2018 None Triggers prolonged sitting 07/27/2018 None Pertinent Findings limb pain / tenderness 07/27/2018 None Pertinent Findings Denies limb redness 07/27/2018 None Onset and Resolution ongoing 07/27/2018 None Onset of Symptom during adulthood 07/27/2018 None Quality improving 07/27/2018 None edema Quality acute 01/25/2018 None edema Quality worsening 01/25/2018 None edema Onset and Resolution sudden in onset 01/25/2018 None edema Onset of Symptom 1 weeks ago 01/25/2018 None edema Frequency of Episodes daily 01/25/2018 None edema Triggers no known associated factors 01/25/2018 None edema Triggers prolonged sitting 01/25/2018 None edema Pertinent Findings limb pain / tenderness 01/25/2018 None edema Pertinent Findings Denies limb redness 01/25/2018 None hypertension Onset and Resolution ongoing 01/25/2018 None hypertension Onset of Symptom during adulthood 01/25/2018 None edema Quality acute 10/06/2017 None edema Onset and Resolution sudden in onset 10/06/2017 None edema Triggers no known associated factors 10/06/2017 None edema Triggers prolonged sitting 10/06/2017 None edema Pertinent Findings limb pain / tenderness 10/06/2017 None edema Pertinent Findings Denies limb redness 10/06/2017 None edema Quality improving 10/06/2017 None edema Onset of Symptom 2.5 weeks ago 10/06/2017 None edema Frequency of Episodes decreasing 10/06/2017 None edema Alleviating Factors medication 10/06/2017 None edema Location on both legs 10/06/2017 None edema Quality acute 09/27/2017 None edema Onset and Resolution sudden in onset 09/27/2017 None edema Onset of Symptom 1 weeks ago 09/27/2017 None edema Quality worsening 09/27/2017 None edema Frequency of Episodes daily 09/27/2017 None edema Triggers no known associated factors 09/27/2017 None edema Triggers prolonged sitting 09/27/2017 None edema Pertinent Findings limb pain / tenderness 09/27/2017 None edema Pertinent Findings Denies limb redness 09/27/2017 None fatigue Triggers no known associated factors 07/23/2017 None fatigue Alleviating Factors rest 07/23/2017 None fatigue Exacerbating Factors exertion 07/23/2017 None fatigue Exacerbating Factors activity 07/23/2017 None fatigue Pertinent Findings dyspnea 07/23/2017 None fatigue Quality worsening 07/23/2017 None fatigue Onset and Resolution gradual in onset 07/23/2017 None fatigue Onset and Resolution ongoing 07/23/2017 None blood pressure followup Quality chronic 07/23/2017 None blood pressure followup Onset and Resolution ongoing 07/23/2017 None blood pressure followup Onset of Symptom during adulthood 07/23/2017 None blood pressure followup Blood Pressure Values pt checking blood pressure - see scanned document 07/23/2017 None blood pressure followup Severity mild 07/23/2017 None blood pressure followup Frequency of Episodes decreasing 07/23/2017 None blood pressure followup Significant Medical Conditions renal failure 07/23/2017 None blood pressure followup Triggers stress 07/23/2017 None blood pressure followup Alleviating Factors medication 07/23/2017 None blood pressure followup Pertinent Findings Denies confusion 07/23/2017 None blood pressure followup Pertinent Findings Denies dizziness 07/23/2017 None blood pressure followup Pertinent Findings decreased energy 07/23/2017 None chest pain/pressure Quality worsening 06/01/2017 None chest pain/pressure Quality intermittent 06/01/2017 None chest pain/pressure Quality squeezing 06/01/2017 None chest pain/pressure Onset and Resolution ongoing 06/01/2017 None chest pain/pressure Pertinent Findings Denies nausea 06/01/2017 None chest pain/pressure Pertinent Findings dyspnea on exertion 06/01/2017 None chest pain/pressure Pertinent Findings palpitations 06/01/2017 None mole check Location-Major on the back 06/01/2017 None mole check Location-Trunk on the left breast 06/01/2017 None mole check Pertinent Findings itching 06/01/2017 None fatigue Quality worsening 06/01/2017 None fatigue Onset and Resolution ongoing 06/01/2017 None fatigue Onset and Resolution gradual in onset 06/01/2017 None fatigue Pertinent Findings dyspnea 06/01/2017 None fatigue Triggers no known associated factors 06/01/2017 None fatigue Alleviating Factors rest 06/01/2017 None fatigue Exacerbating Factors activity 06/01/2017 None fatigue Exacerbating Factors exertion 06/01/2017 None chest pain/pressure Triggers no known associated factors 06/01/2017 None chest pain/pressure Location on the left side of on the chest 06/01/2017 None chest pain/pressure Location on the right side of the chest 06/01/2017 None chest pain/pressure Onset of Symptom 1 months ago 06/01/2017 None chest pain/pressure Limitation on Activities does not limit activities 06/01/2017 None abdominal pain Location in the LLQ 05/11/2017 None abdominal pain Location in the RUQ 05/11/2017 None abdominal pain Quality acute 05/11/2017 pressure abdominal pain Quality worsening 05/11/2017 None abdominal pain Onset and Resolution ongoing 05/11/2017 None abdominal pain Onset of Symptom 1.5-2 months ago 05/11/2017 None abdominal pain Frequency of Episodes daily 05/11/2017 None abdominal pain Triggers no known associated factors 05/11/2017 None abdominal pain Pertinent Findings Denies fever 05/11/2017 None abdominal pain Pertinent Findings Denies nausea 05/11/2017 None abdominal pain Pertinent Findings dyspnea 05/11/2017 when she bends over sores Location-Major on the legs 10/30/2016 None sores Location-Extremities on the right leg 10/30/2016 None sores Quality acute 10/30/2016 None sores Quality fading 10/30/2016 None sores Quality painful 10/30/2016 None sores Color erythematous 10/30/2016 None sores Onset and Resolution ongoing 10/30/2016 None sores Onset of Symptom 4 weeks ago 10/30/2016 None sores Prior Treatments previously treated 10/30/2016 ABT sores Triggers outside 10/30/2016 None sores Pertinent Findings Denies fever 10/30/2016 None sores Pertinent Findings muscle pain 10/30/2016 None sores Pertinent Findings pain 10/30/2016 None anxiety Onset and Resolution ongoing 04/20/2016 None anxiety Limitation on Activities does not limit activities 04/20/2016 None anxiety Triggers stress 04/20/2016 None anxiety Alleviating Factors rest 04/20/2016 None hypertension Onset and Resolution ongoing 04/20/2016 None hypertension Onset of Symptom during adulthood 04/20/2016 None hypertension Blood Pressure Values patient checking blood pressure at home - did not bring in readings 04/20/2016 None hypertension Alleviating Factors medication 04/20/2016 None hypertension Pertinent Findings dizziness 04/20/2016 -two episodes last week after getting up from a seated position hypertension Pertinent Findings Denies dyspnea 04/20/2016 None hypertension Pertinent Findings Denies edema 04/20/2016 None anxiety Quality intermittent 04/20/2016 None anxiety Quality improving 04/20/2016 None anxiety Alleviating Factors medication 04/20/2016 None anxiety Quality worsening 02/25/2016 None anxiety Onset and Resolution ongoing 02/25/2016 None anxiety Limitation on Activities does not limit activities 02/25/2016 None anxiety Frequency of Episodes daily 02/25/2016 None anxiety Triggers stress 02/25/2016 None anxiety Alleviating Factors rest 02/25/2016 None anxiety Pertinent Findings Denies dyspnea 02/25/2016 None anxiety Pertinent Findings Denies nausea 02/25/2016 None anxiety Pertinent Findings Denies syncope 02/25/2016 None dyspnea Quality breathlessness 02/25/2016 None dyspnea Onset and Resolution ongoing 02/25/2016 None dyspnea Limitation on Activities moderately limits activities 02/25/2016 has to sit down between tasks dyspnea Frequency of Episodes daily 02/25/2016 None dyspnea Pertinent Findings Denies back pain 02/25/2016 None dyspnea Pertinent Findings cough 02/25/2016 None dyspnea Pertinent Findings Denies fever 02/25/2016 None anxiety Quality worsening 01/28/2016 None anxiety Onset and Resolution ongoing 01/28/2016 None anxiety Limitation on Activities does not limit activities 01/28/2016 None anxiety Frequency of Episodes daily 01/28/2016 None anxiety Pertinent Findings Denies dyspnea 01/28/2016 None anxiety Pertinent Findings Denies nausea 01/28/2016 None anxiety Pertinent Findings Denies syncope 01/28/2016 None anxiety Triggers stress 01/28/2016 None anxiety Alleviating Factors rest 01/28/2016 None fatigue Limitation on Activities moderately limits activities 11/14/2015 None fatigue Onset of Symptom 1 months ago 11/14/2015 None fatigue Timing of Episodes in the morning 11/14/2015 None fatigue Pertinent Findings Denies depressed mood 11/14/2015 None fatigue Pertinent Findings Denies dizziness 11/14/2015 None fatigue Pertinent Findings Denies edema 11/14/2015 None fatigue Pertinent Findings Denies hoarseness 11/14/2015 None fatigue Quality intermittent 11/14/2015 None fatigue Onset and Resolution ongoing 11/14/2015 None fatigue Frequency of Episodes increasing 11/14/2015 None fatigue Limitation on Activities moderately limits activities 10/10/2015 None fatigue Onset of Symptom 1 months ago 10/10/2015 None fatigue Frequency of Episodes daily 10/10/2015 None fatigue Timing of Episodes in the morning 10/10/2015 None fatigue Pertinent Findings Denies depressed mood 10/10/2015 None fatigue Pertinent Findings Denies dizziness 10/10/2015 None fatigue Pertinent Findings Denies edema 10/10/2015 None fatigue Pertinent Findings Denies hoarseness 10/10/2015 None fatigue Quality intermittent 10/10/2015 None fatigue Onset and Resolution ongoing 10/10/2015 None fatigue Limitation on Activities moderately limits activities 09/12/2015 None fatigue Onset of Symptom 1 months ago 09/12/2015 None fatigue Frequency of Episodes daily 09/12/2015 None fatigue Timing of Episodes in the morning 09/12/2015 None fatigue Pertinent Findings Denies depressed mood 09/12/2015 None fatigue Pertinent Findings Denies dizziness 09/12/2015 None fatigue Pertinent Findings Denies edema 09/12/2015 None fatigue Pertinent Findings Denies hoarseness 09/12/2015 None fatigue Onset and Resolution ongoing 09/12/2015 None fatigue Quality intermittent 09/12/2015 None blood pressure followup Quality chronic 04/09/2015 None blood pressure followup Onset and Resolution ongoing 04/09/2015 None blood pressure followup Onset of Symptom during adulthood 04/09/2015 None blood pressure followup Blood Pressure Values Stage 0:SBP 130-139 mmHg / DBP 85-89 mmHg 04/09/2015 blood pressure good at home blood pressure followup Frequency of Episodes unchanged 04/09/2015 None blood pressure followup Triggers no known associated factors 04/09/2015 None blood pressure followup Alleviating Factors medication 04/09/2015 None blood pressure followup Severity mild 04/09/2015 None shortness of breath Quality breathlessness 10/05/2014 None shortness of breath Onset and Resolution ongoing 10/05/2014 None shortness of breath Onset of Symptom 4 months ago 10/05/2014 None shortness of breath Limitation on Activities moderately limits activities 10/05/2014 None shortness of breath Length of Episodes 30 minutes 10/05/2014 None shortness of breath Triggers activity 10/05/2014 None shortness of breath Alleviating Factors rest 10/05/2014 None shortness of breath Exacerbating Factors exertion 10/05/2014 None shortness of breath Pertinent Findings Denies cough 10/05/2014 None shortness of breath Pertinent Findings Denies chest discomfort 10/05/2014 None shortness of breath Pertinent Findings lightheadedness 10/05/2014 None shortness of breath Pertinent Findings Denies nausea 10/05/2014 None fatigue Limitation on Activities moderately limits activities 10/05/2014 None fatigue Onset of Symptom 4 months ago 10/05/2014 None fatigue Frequency of Episodes daily 10/05/2014 None fatigue Length of Episodes 30 minutes 10/05/2014 None fatigue Triggers activity 10/05/2014 None fatigue Alleviating Factors rest 10/05/2014 None fatigue Exacerbating Factors exertion 10/05/2014 None fatigue Pertinent Findings Denies chills 10/05/2014 None fatigue Pertinent Findings Denies confusion 10/05/2014 None fatigue Pertinent Findings Denies dizziness 10/05/2014 None fatigue Quality chronic 10/05/2014 None fatigue Onset and Resolution ongoing 10/05/2014 None fatigue Pertinent Findings Denies fever 10/05/2014 None fatigue Onset of Symptom 2 weeks ago 09/07/2014 None fatigue Pertinent Findings easy bruising 09/07/2014 None abnormal bleeding and bruising Onset of Symptom 4 days ago 09/07/2014 None abnormal bleeding and bruising Pertinent Findings dyspnea 09/07/2014 reports all of the time. fatigue Pertinent Findings dyspnea 09/07/2014 None fatigue Quality acute 09/07/2014 None fatigue Onset and Resolution ongoing 09/07/2014 None fatigue Limitation on Activities does not limit activities 09/07/2014 None fatigue Frequency of Episodes increasing 09/07/2014 None eyelid pain Location on the right eyelid 07/16/2014 None eyelid pain Quality aching 07/16/2014 None eyelid pain Onset of Symptom 1 weeks ago 07/16/2014 None eyelid pain Pertinent Findings Denies eye discharge 07/16/2014 None eyelid pain Pertinent Findings facial pain 07/16/2014 at eye lid rash Location-Major on the head 07/16/2014 None rash Color red 07/16/2014 None rash Onset of Symptom 1 week ago 07/16/2014 None rash Pertinent Findings itching 07/16/2014 None rash Pertinent Findings pain 07/16/2014 None eyelid pain Onset and Resolution ongoing 07/16/2014 None rash Quality acute 07/16/2014 None rash Onset and Resolution ongoing 07/16/2014 None rash Severity worsening 07/16/2014 None rash Prior Treatments previously untreated 07/16/2014 None rash Triggers no known triggers 07/16/2014 None cough Onset of Symptom 3 days ago 04/02/2014Wednesday cough Pertinent Findings chest discomfort 04/02/2014 feels heavy cough Pertinent Findings dyspnea 04/02/2014 None cough Pertinent Findings fever 04/02/2014 None cough Pertinent Findings Denies nasal congestion 04/02/2014 None cough Pertinent Findings sputum production 04/02/2014 brownish green sore throat Location on both sides 04/02/2014 right worse than left, glands hurt sore throat Onset of Symptom 3 days ago 04/02/2014Wednesday sore throat Pertinent Findings cough 04/02/2014 None sore throat Pertinent Findings fever 04/02/2014 None sore throat Pertinent Findings Denies nasal congestion 04/02/2014 None fever Onset of Symptom 2 days ago 04/02/2014Wednesday fever Temperature 101 degrees 04/02/2014 None fever Pertinent Findings cough 04/02/2014 None fever Pertinent Findings dyspnea 04/02/2014 None fever Onset and Resolution ongoing 04/02/2014 None fever Quality acute 04/02/2014 None fever Triggers no known associated factors 04/02/2014 None cough Exacerbating Factors cold exposure 04/02/2014 None cough Exacerbating Factors exercise 04/02/2014 None cough Frequency of Episodes hourly 04/02/2014 None cough Frequency of Episodes increasing 04/02/2014 None cough Limitation on Activities does not limit activities 04/02/2014 None cough Limitation on Activities is incapacitating 04/02/2014 None cough Limitation on Activities moderately limits activities 04/02/2014 None cough Location in the lung 04/02/2014 None cough Onset and Resolution ongoing 04/02/2014 None cough Onset and Resolution worse during the day 04/02/2014 None cough Onset of Symptom _ weeks ago 04/02/2014 None cough Quality productive 04/02/2014 None cough Quality worsening 04/02/2014 None cough Pertinent Findings sore throat 04/02/2014 None fever Alleviating Factors anti-inflammatory medications 04/02/2014 None fever Alleviating Factors Tylenol 04/02/2014 None fever Length of Episodes _ hours 04/02/2014 None fever Onset and Resolution gradual in onset 04/02/2014 None fever Onset and Resolution gradual in resolution 04/02/2014 None fever Onset and Resolution worse during the day 04/02/2014 None fever Quality waxing and waning 04/02/2014 None fever Quality worsening 04/02/2014 None fever Temperature 100-102 degrees 04/02/2014 None fever Temperature 102-104 degrees 04/02/2014 None fever Temperature greater than 104 degrees 04/02/2014 None fever Timing of Episodes in the evening 04/02/2014 None fever Pertinent Findings chills 04/02/2014 None fever Pertinent Findings diaphoresis 04/02/2014 None fever Pertinent Findings fatigue 04/02/2014 None fever Pertinent Findings headache 04/02/2014 None diaphoresis Quality chronic 12/14/2013 night sweats-decreased zoloft to once per day at bedtime and they have resolved blood pressure followup Quality chronic 12/14/2013 None blood pressure followup Onset and Resolution ongoing 12/14/2013 None blood pressure followup Onset of Symptom during adulthood 12/14/2013 None blood pressure followup Blood Pressure Values pt checking blood pressure at home, did not bring in to clinic 12/14/2013 None blood pressure followup Frequency of Episodes unchanged 12/14/2013 None blood pressure followup Triggers stress 12/14/2013 None blood pressure followup Alleviating Factors medication 12/14/2013 None blood pressure followup Pertinent Findings Denies dizziness 12/14/2013 None blood pressure followup Pertinent Findings edema 12/14/2013 None blood pressure followup Pertinent Findings dyspnea 12/14/2013 None blood pressure followup Pertinent Findings Denies confusion 12/14/2013 None blood pressure followup Pertinent Findings Denies tachycardia 12/14/2013 None blood pressure followup Pertinent Findings Denies vomiting 12/14/2013 None diaphoresis Onset and Resolution ongoing 12/14/2013 None diaphoresis Severity mild 12/14/2013 None diaphoresis Frequency of Episodes decreasing 12/14/2013 None cough Location in the lung 08/01/2013 None cough Quality acute 08/01/2013 None cough Onset of Symptom 1 weeks ago 08/01/2013 None cough Pertinent Findings hoarseness 08/01/2013 None cough Onset and Resolution ongoing 08/01/2013 None hypertension Quality chronic 05/02/2013 None hypertension Onset and Resolution ongoing 05/02/2013 None hypertension Onset of Symptom during adulthood 05/02/2013 None hypertension Alleviating Factors medication 05/02/2013 None hypertension Exacerbating Factors stress 05/02/2013 None hypertension Severity mild 05/02/2013 None hypertension Quality chronic 04/18/2013 None hypertension Onset and Resolution ongoing 04/18/2013 None hypertension Blood Pressure Values pt checking blood pressure - see scanned document 04/18/2013 None hypertension Onset of Symptom during adulthood 04/18/2013 None hypertension Severity not consistently severe symptoms, the symptoms fluctuate from no symptoms to headaches 04/18/2013 None hypertension Pertinent Findings Denies anxiety 04/18/2013 None hypertension Pertinent Findings Denies confusion 04/18/2013 None hypertension Pertinent Findings dizziness 04/18/2013 None Advance Directives No Advance Directive data Encounters Encounter Performer Location Codes Date ([id number]) 42944 EST. PATIENT, LEVEL III Diagnosis: Low back pain[ICD10: M54.5] Diagnosis: Spinal instabilities, lumbar region[ICD10: M53.2X6] Diagnosis: Fusion of spine, lumbar region[ICD10: M43.26] Marilyn Lao MD, [facility] CPT-4: 36321 09/26/2018 ([id number]) 71718 EST. PATIENT, LEVEL IV Diagnosis: Essential (primary) hypertension[ICD10: I10] Diagnosis: Cough[ICD10: R05] Diagnosis: Chronic kidney disease, stage 3 (moderate)[ICD10: N18.3] Diagnosis: Generalized anxiety disorder[ICD10: F41.1] Marilyn Lao MD, [facility] CPT-4: 29360 07/27/2018 [id number]) 31351 EST. PATIENT, LEVEL III Diagnosis: Essential (primary) hypertension[ICD10: I10] Marilyn Lao MD, [facility] CPT-4: 73190 01/25/2018 ([id number]) 55530 EST. PATIENT, LEVEL III Diagnosis: Nail dystrophy[ICD10: L60.3] Diagnosis: Localized edema[ICD10: R60.0] Marilyn Lao MD, [facility] CPT-4: 84932 10/06/2017 ([id number]) 41592 EST. PATIENT, LEVEL IV Diagnosis: Essential (primary) hypertension[ICD10: I10] Diagnosis: Localized edema[ICD10: R60.0] Marilyn Lao MD, [facility] CPT-4: 49521 09/27/2017 ([id number]) 96490 EST. PATIENT, LEVEL IV Diagnosis: Generalized anxiety disorder[ICD10: F41.1] Diagnosis: Essential (primary) hypertension[ICD10: I10] Diagnosis: Chronic pain syndrome[ICD10: G89.4] Noa Lao MD, [facility] CPT-4: 14341 07/23/2017 ([id number]) 36940 EST. PATIENT, LEVEL IV Diagnosis: Essential (primary) hypertension[ICD10: I10] Diagnosis: Chest pain, unspecified[ICD10: R07.9] Diagnosis: Chronic kidney disease, stage 3 (moderate)[ICD10: N18.3] Noa Lao MD, [facility] CPT-4: 56094 06/01/2017 13737 EST. PATIENT, LEVEL IV Diagnosis: Gastro-esophageal reflux disease without esophagitis[ICD10: K21.9] Anais Lao MD, [facility] CPT-4: 42135 05/11/2017 ([id number]) 93562 EST. PATIENT, LEVEL III Diagnosis: Essential (primary) hypertension[ICD10: I10] Diagnosis: Contusion of right lower leg, initial encounter[ICD10: S80.11XA] Noa Lao MD, [facility] CPT-4: 01719 10/30/2016 ([id number]) 59854 EST. PATIENT, LEVEL IV Diagnosis: Essential (primary) hypertension[ICD10: I10] Diagnosis: Generalized anxiety disorder[ICD10: F41.1] Marilyn Lao MD, [facility] CPT-4: 27136 04/20/2016 ([id number]) 35458 EST. PATIENT, LEVEL IV Diagnosis: Essential (primary) hypertension[ICD10: I10] Diagnosis: Chronic kidney disease, stage 3 (moderate)[ICD10: N18.3] Diagnosis: Generalized anxiety disorder[ICD10: F41.1] Diagnosis: Major depressive disorder, recurrent, moderate[ICD10: F33.1] Diagnosis: Shortness of breath[ICD10: R06.02] Noa Lao MD, [facility] CPT- 4: 45250 02/25/2016 ([id number]) 82559 EST. PATIENT, LEVEL IV Diagnosis: Generalized anxiety disorder[ICD10: F41.1] Diagnosis: Major depressive disorder, recurrent, moderate[ICD10: F33.1] Diagnosis: Essential (primary) hypertension[ICD10: I10] Diagnosis: Restless legs syndrome[ICD10: G25.81] Diagnosis: Myalgia[ICD10: M79.1] Noa Lao MD, [facility] CPT-4: 82619 01/28/2016 ([id number]) 73085 EST. PATIENT, LEVEL III Diagnosis: Essential (primary) hypertension[ICD10: I10] Diagnosis: Insomnia, unspecified[ICD10: G47.00] Noa Lao MD, [facility] CPT-4: 43423 11/14/2015 ([id number]) 26854 EST. 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 PATIENT, LEVEL IV Diagnosis: Bitten or stung by nonvenomous insect and other nonvenomous arthropods, initial encounter[ICD10: W57.XXXA] Diagnosis: Other fatigue[ICD10: R53.83] Diagnosis: Vitamin D deficiency, unspecified[ICD10: E55.9] Diagnosis: Other vitamin B12 deficiency anemias[ICD10: D51.8] Diagnosis: Essential (primary) hypertension[ICD10: I10] Diagnosis: Iron deficiency[ICD10: E61.1] Noa Lao MD, [facility] CPT-4: 40579 09/12/2015 ([id number]) 89197 EST. PATIENT, LEVEL III Diagnosis: Essential (primary) hypertension[ICD10: I10] Diagnosis: Chronic kidney disease, stage 3 (moderate)[ICD10: N18.3] Noa Lao MD, [facility] CPT-4: 76423 04/09/2015 ([id number]) 76233 EST. PATIENT, LEVEL III Diagnosis: ESSENTIAL HYPERTENSION[ICD9: 401.9] Noa Lao MD, [facility] CPT-4: 07103 10/05/2014 ([id number]) 68411 EST. PATIENT, LEVEL IV Diagnosis: Easy bruising[ICD9: 782.9] Diagnosis: Iron deficiency anemia[ICD9: 280.9] Diagnosis: ESSENTIAL HYPERTENSION[ICD9: 401.9] Diagnosis: Chronic kidney disease, stage 3[ICD9: 585.3] Noa Lao MD, [facility] CPT-4: 65928 09/07/2014 ([id number]) 79639 EST. PATIENT, LEVEL III Diagnosis: Shingles[ICD9: 053.9] Marilyn Lao MD, [facility] CPT-4: 78082 07/16/2014 ([id number]) 07186 EST. PATIENT, LEVEL III Diagnosis: PNEUMONIA (CAP)[ICD9: 486] Diagnosis: COUGH[ICD9: 786.2] Marilyn Lao MD, [facility] CPT-4: 99499 04/02/2014 ([id number]) 53557 EST. PATIENT, LEVEL III Diagnosis: ESSENTIAL HYPERTENSION[ICD9: 401.9] Diagnosis: Rib pain on left side[ICD9: 786.50] Diagnosis: EDEMA[ICD9: 782.3] Noa Lao MD, [facility] CPT-4: 83446 12/14/2013 ([id number]) 66641 EST. PATIENT, LEVEL IV Diagnosis: ESOPHAGEAL REFLUX[ICD9: 530.81] Diagnosis: Urge incontinence[ICD9: 788.31] Diagnosis: Elbow pain, right[ICD9: 719.42] Diagnosis: Snoring[ICD9: 786.09] Marilyn Lao MD, [facility] CPT-4: 91487 08/01/2013 ([id number]) 38046 EST. PATIENT, LEVEL IV Diagnosis: ESSENTIAL HYPERTENSION[SNOMED: 31597441] Diagnosis: EDEMA[ICD9: 782.3] Diagnosis: Chronic renal insufficiency, stage III (moderate)[ICD9: 585.3] Diagnosis: HYPERLIPIDEMIA[ICD9: 272.4] Marilyn Lao MD, [facility] CPT-4: 33847 05/02/2013 ([id number]) 08943 EST. 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 09/26/2018 Appointment: Marilyn Lao WPtel: [address] [place], [place] [phone] (15 min) Moderate 09/26/2018 Patient Education: Patient Medication Summary Completed 09/26/2018 Patient Education: Back Pain Completed 09/26/2018 Care Plan: MRI LUMBAR SPINE W/O DYE LOINC : 83010-7 Pending 09/26/2018 Visit Plan: Hypertension - well controlled - continue with current medications, continue with no added salt diet. Pt has been encouraged to exercise daily. The pt has been advised to call the office if there are any acute concerns about change in blood pressure readings at home. Cough - discussed with pt - start on Tessalon Perles prn for cough. CKD Stage 3 - discussed with patient - continue with current regimen - avoid renally toxic medications. Chronic Depression and anxiety - the pt has symptoms of chronic anxiety and depression that have been fairly well controlled since the last office visit. The pt has expected periods of exacerbation with abatement of the symptoms with change in situational exposure. No change in current medications. 07/27/2018 Appointment: Marilyn Lao WPtel: [address] [place], [place] [id number] (15 min) Moderate 07/27/2018 Patient Education: Patient Medication Summary Completed 07/27/2018 Appointment: Marilyn Lao WPtel: [address] [place], [place] [id number] (15 min) Moderate 07/26/2018 Visit Plan: Hypertension - well controlled - continue with current medications, continue with no added salt diet. Pt has been encouraged to exercise daily. The pt has been advised to call the office if there are any acute concerns about change in blood pressure readings at home. 01/25/2018 Appointment: Rianna Laoy WPtel: [address] [facility] (15 min) Moderate 01/25/2018 Patient Education: Patient Medication Summary Completed 01/25/2018 Appointment: Rianna Laoy WPtel: [phone] [facility] (15 min) Moderate 01/06/2018 Patient Education: Patient Medication Summary Completed 10/26/2017 Care Plan: Comp Metabolic Cancelled 10/26/2017 Visit Plan: Tinea/Onychodystrophy - penlac prescribed, pt did not want to take medication by mouth for treatment. Edema - improved - continue current regimen. 10/06/2017 Appointment: Marilyn Lao WPtel: [phone] [facility] (15 min) Moderate 10/06/2017 Patient Education: Patient Medication Summary Completed 10/06/2017 Visit Plan: Edema - pt has been advised to elevate legs to prevent dependent edema, compression has been recommended to help to naturally decrease peripheral edema. Diuretic use has been discussed and pt has been instructed in appropriate use of such medication as necessary to further attempt to reduce peripheral edema. stop the amlodipine - it will take about 7-10 days to get out of your system. expect that you will have improved swelling after about 7 days of it being out of your system. increase the LOSARTAN to 100mg daily, increase aspirin to 325 mg daily x 7 days, then go back to 81mg daily. Hypertension - well controlled - continue with current medications, continue with no added salt diet. Pt has been encouraged to exercise daily. The pt has been advised to call the office if there are any acute concerns about change in blood pressure readings at home. 09/27/2017 Appointment: Marilyn Lao WPtel: [phone] [facility] [place] (15 min) Moderate 09/27/2017 Patient Education: Patient Medication Summary Completed 09/27/2017 Visit Plan: Chronic Depression and anxiety - the pt has symptoms of chronic anxiety and depression that have been fairly well controlled since the last office visit. The pt has expected periods of exacerbation with abatement of the symptoms with change in situational exposure. Hypertension - well controlled - continue with current medications, continue with no added salt diet. Pt has been encouraged to exercise daily. The pt has been advised to call the office if there are any acute concerns about change in blood pressure readings at home. Chronic pain-recommend massage 07/23/2017 Appointment: Noa Orlando WPtel: [phone] [phone] (15 min) Moderate 07/23/2017 Patient Education: Patient Medication Summary Completed 07/23/2017 Patient Education: Patient Medication Summary Completed 06/23/2017 Referral: Ta Santacruz Patient informed. Referral info faxed. Completed 06/07/2017 Visit Plan: Hypertension - uncontrolled - the patient's medications have been modified as documented in the visit note. The patient has been counseled to cut back on salt in diet for a no added salt diet, low fat diet, start an exercise program with low weight bearing exercises and higher aerobic activity for heart health. The patient is to check blood pressure readings as an outpatient and either fax, call, or email the readings to the office next week for practitioner to review. The pt is to call for acute concerns. Chest pain- appt with Dr Santacruz for evaluation -call if chest pain or shortness of breath worsens 06/01/2017 Appointment: Noa Orlando WPtel: [phone] [phone] (30 min) Complex 06/01/2017 Patient Education: Patient Medication Summary Completed 06/01/2017 Care Plan: Referral Order SNOMED-CT : 655880222 Pending 06/01/2017 Visit Plan: Esophageal Reflux - the patient has been counseled against excessive intake of caffeine, spicy foods, peppermint, and cinnamon - all of which can exacerbate esophageal reflux. The patient is to take med ications as prescribed and call the office if the symptoms are not improving. 05/11/2017 Appointment: [facility]el[facility] [facility] (15 min) Moderate 05/11/2017 Patient Education: Patient Medication Summary Completed 05/11/2017 Visit Plan: HTN-elevated today but patient worried about at home-monitor at home and call with readings in 2 weeks Laceration right anterior leg x 1 month ago-healing but still has hematoma-no s/s of infection- recommend tetanus vaccine-call for s/s of infection or other concerns 10/30/2016 Patient Education: Patient Medication Summary Completed 10/30/2016 Patient Education: Obesity Completed 10/30/2016 Appointment: Injection 09/15/2016 Patient Education: Patient Medication Summary Completed 09/15/2016 Appointment: Marilyn Lao WPtel: [phone] [facility] (15 min) Moderate 08/19/2016 Patient Education: Patient Medication Summary Completed 06/19/2016 Visit Plan: Hypertension - well controlled - continue with current medications, continue with no added salt diet. Pt has been encouraged to exercise daily. The pt has been advised to call the office if there are any acute concerns about change in blood pressure readings at home. Chronic Depression and anxiety - the pt has symptoms of chronic anxiety and depression that have been fairly well controlled since the last office visit. The pt has expected periods of exacerbation with abatement of the symptoms with change in situational exposure. No change in current medications. 04/20/2016 Appointment: Marilyn Lao WPtel: [facility] (30 min) Complex 04/20/2016 Patient Education: Patient Medication Summary Completed 04/20/2016 Patient Education: Obesity Completed 04/20/2016 Patient Education: Hypertension Completed 04/20/2016 Appointment: Noa Orlando WPtel: [phone] [place] (30 min) Complex 03/16/2016 Referral: Ta Santacruz Referral Completed 03/03/2016 Visit Plan: Hypertension - well controlled - continue with current medications, continue with no added salt diet. Pt has been encouraged to exercise daily. The pt has been advised to call the office if there are any acute concerns about change in blood pressure readings at home. Shortness of breath-family of heart disease-had stress test, echo, heart cath with Dr Santacruz several years ago-due for follow up. Chronic renal disease-check labs Qnxyacx-gotpgoyhjx-rijleoss with cymbalta-continue same dose for now -may take xanax TID PRN Multiple joint pain-check labs including inflammatory markers 02/25/2016 Appointment: Noa Orlando WPtel: [phone] (30 min) Complex 02/25/2016 Patient Education: Patient Medication Summary Completed 02/25/2016 Patient Education: Obesity Completed 02/25/2016 Patient Education: Hypertension Completed 02/25/2016 Care Plan: Referral Order SNOMED-CT : 493079161 Pending 02/25/2016 Visit Plan: Anxiety/Depression - the patient has uncontrolled anxiety and will benefit from changing medication to attempt control of the symptoms of anxiety (tachycardia, overwhelming sensations, stress, insomnia, etc). I also believe that the patient will benefit from very low dose of prn benzodiazepine. Pt is aware of the risks and benefits of treatment with the above medications. STOP ZOLOFT-START CYMBALTA 60MG DAILY Hypertension - well controlled - continue with current medications, continue with no added salt diet. Pt has been encouraged to exercise daily. The pt has been advised to call the office if there are any acute concerns about change in blood pressure readings at home. Restless qum-vpvjof-zkwninwr requip to twice daily-monitor symptoms Myalgias-stop pravastatin 01/28/2016 Appointment: Noa Orlando WPtel: [phone] (30 min) Complex 01/28/2016 Patient Education: Patient Medication Summary Completed 01/28/2016 Appointment: Injection 01/08/2016 Patient Education: Patient Medication Summary Completed 01/08/2016 Visit Plan: Hypertension - well controlled - continue with current medications, continue with no added salt diet. Pt has been encouraged to exercise daily. The pt has been advised to call the office if there are any acute concerns about change in blood pressure readings at home. Insomnia - Pt has been advised to increase the light in the house during the day, and start dimming the lights during the evening hours. Pt has been advised to cut out caffeine after 5pm. Daytime napping worsens night time insomnia. 11/14/2015 Patient Education: Patient Medication Summary Completed 11/14/2015 Patient Education: Obesity Completed 11/14/2015 Visit Plan: Hypertension - well controlled - continue with current medications, continue with no added salt diet. Pt has been encouraged to exercise daily. The pt has been advised to call the office if there are any acute concerns about change in blood pressure readings at home. Ehrlichiosis- continue doxycycline IBS-D-RX for viberzi provided and instructed on use. 10/10/2015 Patient Education: Patient Medication Summary Completed 10/10/2015 Patient Education: Obesity Completed 10/10/2015 Patient Education: Hypertension Completed 10/10/2015 Appointment: [facility]ily[facility]el[phone] [facility] (15 min) Moderate 10/08/2015 Visit Plan: Hypertension - well controlled - continue with current medications, continue with no added salt diet. Pt has been encouraged to exercise daily. The pt has been advised to call the office if there are any acute concerns about change in blood pressure readings at home. Iron deficiency- B12 deficiency-check labs Tick onzu-ynomtcf-krvxt tick panel 09/12/2015 Appointment: Noa Orlando WPtel[facility] [phone] [phone] [place] (15 min) Moderate 09/12/2015 Patient Education: Patient Medication Summary Completed 09/12/2015 Patient Education: Obesity Completed 09/12/2015 Visit Plan: Hypertension - well controlled - continue with current medications, continue with no added salt diet. Pt has been encouraged to exercise daily. The pt has been advised to call the office if there are any acute concerns about change in blood pressure readings at home. 04/09/2015 Appointment: (30 min) Complex 04/09/2015 Patient Education: Patient Medication Summary Completed 04/09/2015 Patient Education: Hypertension Completed 04/09/2015 Visit Plan: Hypertension - well controlled - continue with current medications, continue with no added salt diet. Pt has been encouraged to exercise daily. The pt has been advised to call the office if there are any acute concerns about change in blood pressure readings at home. 10/05/2014 Appointment: (15 min) Moderate 10/05/2014 Patient Education: Patient Medication Summary Completed 10/05/2014 Patient Education: Hypertension Completed 10/05/2014 Visit Plan: Easy bruising-hold aspirin x 1 week-monitor symptoms Iron deficiency anemia-stopped oral iron per tilt tray driver in March-recheck labs HTN-elevated today-monitor twice daily x 1 week and call with readings The patient has been counseled to cut back on salt in diet for a no added salt diet, low fat diet, start an exercise program with low weight bearing exercises and higher aerobic activity for heart health. The patient is to check blood pressure readings as an outpatient and either fax, call, or email the readings to the office next week for practitioner to review. The pt is to call for acute conc erns. 09/07/2014 Appointment: (15 min) Moderate 09/07/2014 Patient Education: Patient Medication Summary Completed 09/07/2014 Patient Education: Hypertension Completed 09/07/2014 Care Plan: COMPLETE CBC AUTOMATED LOINC : 69635-0 Ordered 09/07/2014 Visit Plan: Shingles - Herpes Zoster - acute in onset - pt started on acyclovir and instructed to call if symptoms worsen or if the pt is concerned about the symptoms. Pt has been advised to avoid contact with persons who may be , or infants, or immunocompromised individuals. Pt has been instructed that shingles will continue to break out and eventually scab over a two week period, until all of the vesicles are scabbed, the pt is to be considered contagious. 07/16/2014 Appointment: Sick 07/16/2014 Patient Education: Patient Medication Summary Completed 07/16/2014 Appointment: Marilyn Lao WPtel: [facility] Follow up 04/16/2014 Appointment: Sick 04/03/2014 Visit Plan: Pneumonia - Pt has been diagnosed with pneumonia by physical exam. Antibiotics started. The pt is aware of the diagnosis and the need for acute treatment of this illness. 04/02/2014 Patient Education: Patient Medication Summary Completed 04/02/2014 Appointment: Marilyn Lao WPtel: [phone] [facility] Sick 12/27/2013 Patient Education: Patient Medication Summary Completed 12/27/2013 Visit Plan: Hypertension - The patient has been counseled to cut back on salt in diet for a no added salt diet, low fat diet, start an exercise program with low weight bearing exercises and higher aerobic activity for heart health. The patient is to check blood pressure readings as an outpatient and either fax, call, or email the readings to the office next week for practitioner to review. The pt is to call for acute concerns. Left rib pain- xray left ribs Edema - pt has been advised to elevate legs to prevent dependent edema, compression has been recommended to help to naturally decrease peripheral edema. Diuretic use has been discussed and pt has been instructed in appropriate use of such medication as necessary to further attempt to reduce peripheral edema. Night puvfbq-aeravmu-qglwm labs 12/14/2013 Appointment: Follow up 12/14/2013 Patient Education: Patient Medication Summary Completed 12/14/2013 Patient Education: Hypertension Completed 12/14/2013 Appointment: Noa Orlando WPtel: [phone] Sick 12/01/2013 Appointment: Marilyn Lao WPtel: [facility] Sick 11/30/2013 Visit Plan: Allergies - chronic - recommended pt to use allergy medication as prescribed. Pt has been counseled as the the appropriate use of the medication. Pt to call if allergy symptoms are not controlled with the medication. If using nasal spray, instructions as follows: Nasal spray- use twice daily, one spray per nostril twice daily, after 30 minutes, rinse out nose with saline spray.. Use opposite hand per nostril to spray in the nasal steroid allergy spray. Recommended referral to Dr. Cm for sleep eval/sleep study. Urge incontinence - and history of pelvic surgery for incontinence - recommended evaluation for pt with Dr. Alanis as pt would like an opinion that does not immediately lead to surgical intervention. Elbow pain - pt with point tenderness in right elbow - recommended pt to keep elbow elevated. Pt to be on steroids for her allergies - will also help with her elbow pain, monitor symptoms. 08/01/2013 Appointment: Marilyn Lao WPtel: [facility] Follow up 08/01/2013 Patient Education: Patient Medication Summary Completed 08/01/2013 Visit Plan: Hypertension - well controlled - continue with current medications, continue with no added salt diet. Pt has been encouraged to exercise daily. The pt has been advised to call the office if there are any acute concerns about change in blood pressure readings at home. Hyperlipidemia - pt has been counseled about appropriate diet, exercise, and need for low fat food choices. I have discussed the need for the patient to take medications as prescribed. If the patient has negative side effects from the medication, they are to CALL the office and not abruptly discontinue the medication without discussion with a practicioner in the office. We will check labs in 3-6 months for follow up on the patient's chronic medical problem and to assure normal liver response to medications. Pt to start on fish oil twice daily. Edema - recommended thigh high compression socks to be worn in AM and off at bedtime. I have recommended that Poonam attempt to decrease her lasix from 40mg down to 30mg daily x 2 weeks, then further decrease down to 20mg daily if able to do so without excessive swelling. CRF stage III - monitor labs/adjust medications as able. 05/02/2013 Appointment: Marilyn Lao WPtel: [phone] [id number] Follow up 05/02/2013 Patient Education: Patient Medication Summary Completed 05/02/2013 Patient Education: Hypertension Completed 05/02/2013 Visit Plan: Hypertension - well controlled - continue with current medications, continue with no added salt diet. Pt has been encouraged to exercise daily. The pt has been advised to call the office if there are any acute concerns about change in blood pressure readings at home. Restless Leg syndrome - pt is to continue on oral ropinirol and to be on oral iron as well - she is to take her iron with orange juice. 04/18/2013 Appointment: Marilyn Lao WPtel: [phone] [id number] New Patient 04/18/2013 Patient Education: Patient Medication Summary Completed 04/18/2013 Patient Education: Hypertension Completed 04/18/2013 Referral: Ta Santacruz Referral Appointment Requested Referral: Ta Santacruz Referral Appointment Requested Instructions Comment . Shingles - Herpes Zoster - acute in onset - pt started on acyclovir and instructed to call if symptoms worsen or if the pt is concerned about the symptoms. Pt has been advised to avoid contact with persons who may be , or infants, or immunocompromised individuals. Pt has been instructed that shingles will continue to break out and eventually scab over a two week period, until all of the vesicles are scabbed, the pt is to be considered contagious. doxycycline 100mg twice daily x 2 weeks then daily until you are out of medication Take probiotic while on abx Viberzi 75mg twice daily with food. . Hypertension - well controlled - continue with current medications, continue with no added salt diet. Pt has been encouraged to exercise daily. The pt has been advised to call the office if there are any acute concerns about change in blood pressure readings at home. Ehrlichiosis-continue doxycycline IBS-D-RX for viberzi provided and instructed on use. get labs done one week before next office visit . Hypertension - well controlled - continue with current medications, continue with no added salt diet. Pt has been encouraged to exercise daily. The pt has been advised to call the office if there are any acute concerns about change in blood pressure readings at home. Cough - discussed with pt - start on Tessalon Perles prn for cough. CKD Stage 3 - discussed with patient - continue with current regimen - avoid renally toxic medications. Chronic Depression and anxiety - the pt has symptoms of chronic anxiety and depression that have been fairly well controlled since the last office visit. The pt has expected periods of exacerbation with abatement of the symptoms with change in situational exposure. No change in current medications. add LOSARTAN 50MG DAILY APPT WITH DR SANTACRUZ PATIENT IS TO CHECK BLOOD PRESSURE AND HEART RATE TWO TIMES DAILY AND BRING IN A RECORD OF THE READINGS INTO THE OFFICE IN TWO WEEKS. . Hypertension - uncontrolled - the patient's medications have been modified as documented in the visit note. The patient has been counseled to cut back on salt in diet for a no added salt diet, low fat diet, start an exercise program with low weight bearing exercises and higher aerobic activity for heart health. The patient is to check blood pressure readings as an outpatient and either fax, call, or email the readings to the office next week for practitioner to review. The pt is to call for acute concerns. Chest pain-appt with Dr Santacruz for evaluation -call if chest pain or shortness of breath worsens . Hypertension - well controlled - continue with current medications, continue with no added salt diet. Pt has been encouraged to exercise daily. The pt has been advised to call the office if there are any acute concerns about change in blood pressure readings at home. Hyperlipidemia - pt has been counseled about appropriate diet, exercise, and need for low fat food choices. I have discussed the need for the patient to take medications as prescribed. If the patient has negative side effects from the medication, they are to CALL the office and not abruptly discontinue the medication without discussion with a practicioner in the office. We will check labs in 3-6 months for follow up on the patient's chronic medical problem and to assure normal liver response to medications. Pt to start on fish oil twice daily. Edema - recommended thigh high compression socks to be worn in AM and off at bedtime. I have recommended that Poonam attempt to decrease her lasix from 40mg down to 30mg daily x 2 weeks, then further decrease down to 20mg daily if able to do so without excessive swelling. CRF stage III - monitor labs/adjust medications as able. HOLD ASPIRIN X1 WEEK CHECK BLOOD PRESSURE AND PULSE TWICE DAILY X 1 WEEK AND CALL WITH READINGS . Easy bruising-hold aspirin x 1 week-monitor symptoms Iron deficiency anemia-stopped oral iron per tilt tray driver in March-recheck labs HTN-elevated today-monitor twice daily x 1 week and call with readings The patient has been counseled to cut back on salt in diet for a no added salt diet, low fat diet, start an exercise program with low weight bearing exercises and higher aerobic activity for heart health. The patient is to check blood pressure readings as an outpatient and either fax, call, or email the readings to the office next week for practitioner to review. The pt is to call for acute concerns. stop the amlodipine - it will take about 7-10 days to get out of your system. expect that you will have improved swelling after about 7 days of it being out of your system. increase the LOSARTAN to 100mg daily, increase aspirin to 325 mg daily x 7 days, then go back to 81mg daily. . Edema - pt has been advised to elevate legs to prevent dependent edema, compression has been recommended to help to naturally decrease peripheral edema. Diuretic use has been discussed and pt has been instructed in appropriate use of such medication as necessary to further attempt to reduce peripheral edema. stop the amlodipine - it will take about 7-10 days to get out of your system. expect that you will have improved swelling after about 7 days of it being out of your system. increase the LOSARTAN to 100mg daily, increase aspirin to 325 mg daily x 7 days, then go back to 81mg daily. Hypertension - well controlled - continue with current medications, continue with no added salt diet. Pt has been encouraged to exercise daily. The pt has been advised to call the office if there are any acute concerns about change in blood pressure readings at home. . Lumbago - hx of lumbar spine fusion and OA of spine - with acute pain and spasms - rx for baclofen sent to pharmacy - recommended, with her hx, that we send her for an MRI of the Lumbar and sacral spine - I have recommended that the imaging needs to be set up in [facility] so that her spine surgeon has easier access to the information/imaging. . Hypertension - well controlled - continue with current medications, continue with no added salt diet. Pt has been encouraged to exercise daily. The pt has been advised to call the office if there are any acute concerns about change in blood pressure readings at home. . Chronic Depression and anxiety - the pt has symptoms of chronic anxiety and depression that have been fairly well controlled since the last office visit. The pt has expected periods of exacerbation with abatement of the symptoms with change in situational exposure. Hypertension - well controlled - continue with current medications, continue with no added salt diet. Pt has been encouraged to exercise daily. The pt has been advised to call the office if there are any acute concerns about change in blood pressure readings at home. Chronic pain-recommend massage . Hypertension - well controlled - continue with current medications, continue with no added salt diet. Pt has been encouraged to exercise daily. The pt has been advised to call the office if there are any acute concerns about change in blood pressure readings at home. . Hypertension - well controlled - continue with current medications, continue with no added salt diet. Pt has been encouraged to exercise daily. The pt has been advised to call the office if there are any acute concerns about change in blood pressure readings at home. Chronic Depression and anxiety - the pt has symptoms of chronic anxiety and depression that have been fairly well controlled since the last office visit. The pt has expected periods of exacerbation with abatement of the symptoms with change in situational exposure. No change in current medications. . Tinea/Onychodystrophy - penlac prescribed, pt did not want to take medication by mouth for treatment. Edema - improved - continue current regimen. PATIENT IS TO CHECK BLOOD PRESSURE AND HEART RATE TWO TIMES DAILY AND CALL THE READINGS INTO THE OFFICE IN TWO WEEKS. . HTN-elevated today but patient worried about at home-monitor at home and call with readings in 2 weeks Laceration right anterior leg x 1 month ago-healing but still has hematoma-no s/s of infection-recommend tetanus vaccine-call for s/s of infection or other concerns . Hypertension - well controlled - continue with current medications, continue with no added salt diet. Pt has been encouraged to exercise daily. The pt has been advised to call the office if there are any acute concerns about change in blood pressure readings at home. Iron deficiency-B12 deficiency-check labs Tick uaxj-iqztfqg-pglei tick panel . Hypertension - well controlled - continue with current medications, continue with no added salt diet. Pt has been encouraged to exercise daily. The pt has been advised to call the office if there are any acute concerns about change in blood pressure readings at home. Insomnia - Pt has been advised to increase the light in the house during the day, and start dimming the lights during the evening hours. Pt has been advised to cut out caffeine after 5pm. Daytime napping worsens night time insomnia. . Hypertension - well controlled - continue with current medications, continue with no added salt diet. Pt has been encouraged to exercise daily. The pt has been advised to call the office if there are any acute concerns about change in blood pressure readings at home. Restless Leg syndrome - pt is to continue on oral ropinirol and to be on oral iron as well - she is to take her iron with orange juice.. Hypertension - well controlled - continue with current medications, continue with no added salt diet. Pt has been encouraged to exercise daily. The pt has been advised to call the office if there are any acute concerns about change in blood pressure readings at home. Restless Leg syndrome - pt is to continue on oral ropinirol and to be on oral iron as well - she is to take her iron with orange juice. . Esophageal Reflux - the patient has been counseled against excessive intake of caffeine, spicy foods, peppermint, and cinnamon - all of which can exacerbate esophageal reflux. The patient is to take medications as prescribed and call the office if the symptoms are not improving. INCREASE XANAX TO THREE TIMES DAILY NEEDED CHECK LABS RECOMMEND APPOINTMENT WITH DR SANTACRUZ-OZIEL FOR ECHOCARDIOGRAM . Hypertension - well controlled - continue with current medications, continue with no added salt diet. Pt has been encouraged to exercise daily. The pt has been advised to call the office if there are any acute concerns about change in blood pressure readings at home. Shortness of breath-family of heart disease-had stress test, echo, heart cath with Dr Santacruz several years ago-due for follow up. Chronic renal disease-check labs Udlmnly-sgsbomgpds-zikwjrhr with cymbalta-continue same dose for now -may take xanax TID PRN Multiple joint pain-check labs including inflammatory markers INCREASE REQUIP TO TWICE DAILY STOP ZOLOFT START CYMBALTA 60MG DAILY STOP PRAVASTATIN . Anxiety/Depression - the patient has uncontrolled anxiety and will benefit from changing medication to attempt control of the symptoms of anxiety (tachycardia, overwhelming sensations, stress, insomnia, etc). I also believe that the patient will benefit from very low dose of prn benzodiazepine. Pt is aware of the risks and benefits of treatment with the above medications. STOP ZOLOFT-START CYMBALTA 60MG DAILY Hypertension - well controlled - continue with current medications, continue with no added salt diet. Pt has been encouraged to exercise daily. The pt has been advised to call the office if there are any acute concerns about change in blood pressure readings at home. Restless tra-ypqkyf-mfrohitd requip to twice daily-monitor symptoms Myalgias-stop pravastatin . Allergies - chronic - recommended pt to use allergy medication as prescribed. Pt has been counseled as the the appropriate use of the medication. Pt to call if allergy symptoms are not controlled with the medication. If using nasal spray, instructions as follows: Nasal spray- use twice daily, one spray per nostril twice daily, after 30 minutes, rinse out nose with saline spray.. Use opposite hand per nostril to spray in the nasal steroid allergy spray. Recommended referral to Dr. Cm for sleep eval/sleep study. Urge incontinence - and history of pelvic surgery for incontinence - recommended evaluation for pt with Dr. Alanis as pt would like an opinion that does not immediately lead to surgical intervention. Elbow pain - pt with point tenderness in right elbow - recommended pt to keep elbow elevated. Pt to be on steroids for her allergies - will also help with her elbow pain, monitor symptoms. start on the azithromycin today start on the cefidinr tomorrow start on the prednisone tomorrow start breathing treatments today . Pneumonia - Pt has been diagnosed with pneumonia by physical exam. Antibiotics started. The pt is aware of the diagnosis and the need for acute treatment of this illness. CHECK BLOOD PRESSURE 1-2 TIMES DAILY AND BRING IN YOUR LOG IN 2-3 WEEKS FOR REVIEW. CALL IF BLOOD PRESSURE ARE ELEVATED GREATER THAN 140/90 . Hypertension - The patient has been counseled to cut back on salt in diet for a no added salt diet, low fat diet, start an exercise program with low weight bearing exercises and higher aerobic activity for heart health. The patient is to check blood pressure readings as an outpatient and either fax, call, or email the readings to the office next week for practitioner to review. The pt is to call for acute concerns. Left rib pain-xray left ribs Edema - pt has been advised to elevate legs to prevent dependent edema, compression has been recommended to help to naturally decrease peripheral edema. Diuretic use has been discussed and pt has been instructed in appropriate use of such medication as necessary to further attempt to reduce peripheral edema. Night epqjri-ntcmmqf-ajiqg labs
--- OUTSIDE RECORDS SUMMARY | 2018-11-04 15:31 | XMS REPORT | CCD ---
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 08/01/2013 Employment Unknown Retired doing as needed working for the formerly [employer], [employer]. 05/02/2013 Marital status Unknown 04/18/[address]: 746359229 Never drinks alcohol 04/18/2013 Has the patient [...] Start Date Stop Date Status Fill Instructions baclofen 5 mg tablet RxNorm: 949476 1/2 Tablet(s) PO TID as needed 09/26/2018 11/24/2018 Active Xanax 0.5 mg tablet RxNorm: 105112 1 Tablet(s) PO UD 1/2 AM, 1/2 noon if needed and 1 hs 07/27/2018 11/23/2018 Active Tessalon Perles 100 mg capsule RxNorm: 110866 1 Capsule(s) PO TID as needed cough 07/27/2018 10/24/2018 Active doxycycline hyclate 100 mg tablet RxNorm: 7805714 1 Tablet(s) PO BID 07/12/2018 07/25/2018 Inactive ropinirole 1 mg tablet RxNorm: 917055 TAKE TWO TABLETS BY MOUTH EVERY NIGHT AT BEDTIME 07/04/2018 03/30/2019 Active Carafate 1 gram tablet RxNorm: 437656 TAKE ONE TABLET BY MOUTH FOUR TIMES A DAY 07/04/2018 10/01/2018 Inactive montelukast 10 mg tablet RxNorm: 459160 TAKE ONE TABLET BY MOUTH EVERY NIGHT AT BEDTIME 07/04/2018 03/30/2019 Active losartan 100 mg tablet RxNorm: 825416 1 Tablet(s) PO daily 05/04/2018 01/28/2019 Active tramadol 50 mg tablet RxNorm: 687056 2 Tablet(s) PO BID 04/26/2018 06/24/2018 Inactive alprazolam 0.5 mg tablet RxNorm: 893130 1/2-1 Tablet(s) PO TID PRN as needed 04/04/2018 06/01/2018 Inactive Xanax 0.5 mg tablet RxNorm: 994864 1 Tablet(s) PO TID PRN as needed 04/04/2018 07/26/2018 Inactive tramadol 50 mg tablet RxNorm: 842301 2 Tablet(s) PO BID 12/01/2017 01/29/2018 Inactive Cymbalta 60 mg capsule,delayed release RxNorm: 808408 TAKE ONE CAPSULE BY MOUTH DAILY 11/10/2017 11/04/2018 Active furosemide 40 mg tablet RxNorm: 350439 1 Tablet(s) PO daily 10/26/2017 10/20/2018 Active alprazolam 0.5 mg tablet RxNorm: 227316 1/2-1 Tablet(s) PO TID PRN as needed 10/12/2017 12/10/2017 Inactive Ciclodan 8 % topical solution RxNorm: 9790538 1 Application TOP daily x 7 days, clean off with alcohol then restart cycle of application until fungal infection is completely cleared 10/06/2017 01/03/2018 Inactive omeprazole 20 mg capsule,delayed release RxNorm: 020471 TAKE ONE CAPSULE BY MOUTH DAILY 10/04/2017 01/24/2018 Inactive losartan 100 mg tablet RxNorm: 429374 1 Tablet(s) PO daily 09/27/2017 03/24/2018 Inactive Xanax 0.25 mg tablet RxNorm: 835824 1 Tablet(s) PO TID PRN as needed 08/13/2017 10/09/2017 Inactive Xanax 0.5 mg tablet RxNorm: 312262 1 Tablet(s) PO TID PRN as needed 07/23/2017 11/18/2017 Inactive ropinirole 1 mg tablet RxNorm: 834568 TAKE TWO TABLETS BY MOUTH EVERY NIGHT AT BEDTIME 06/28/2017 06/22/2018 Inactive montelukast 10 mg tablet RxNorm: 706225 TAKE ONE TABLET BY MOUTH EVERY NIGHT AT BEDTIME 06/28/2017 06/22/2018 Inactive furosemide 20 mg tablet RxNorm: 704329 TAKE TWO TABLETS BY MOUTH DAILY FOR 7 DAYS THEN TAKE ONE TABLET BY MOUTH DAILY 06/28/2017 10/01/2017 Inactive losartan 50 mg tablet RxNorm: 935188 1 Tablet(s) PO daily 06/01/2017 09/26/2017 Inactive labetalol 100 mg tablet RxNorm: 239764 TAKE ONE TABLET BY MOUTH TWICE A DAY 05/26/2017 05/30/2017 Inactive labetalol 100 mg tablet RxNorm: 686613 1 Tablet(s) PO BID 05/26/2017 05/20/2018 Inactive Protonix 40 mg tablet,delayed release RxNorm: 689954 1 Tablet(s) PO daily 05/26/2017 05/20/2018 Inactive amlodipine 5 mg tablet RxNorm: 758667 TAKE ONE TABLET BY MOUTH TWICE A DAY 05/26/2017 09/26/2017 Inactive Protonix 40 mg tablet,delayed release RxNorm: 443799 1 Tablet(s) PO daily 05/11/2017 05/25/2017 Inactive Carafate 1 gram tablet RxNorm: 833531 1 Tablet(s) PO QID 05/11/2017 09/07/2017 Inactive Cymbalta 60 mg capsule,delayed release RxNorm: 801559 TAKE ONE CAPSULE BY MOUTH DAILY 05/05/2017 10/31/2017 Inactive Xanax 0.25 mg tablet RxNorm: 794605 1 Tablet(s) PO TID PRN as needed 02/09/2017 06/07/2017 Inactive Cymbalta 60 mg capsule,delayed release RxNorm: 766258 TAKE ONE CAPSULE BY MOUTH DAILY 10/28/2016 04/25/2017 Inactive Xanax 0.25 mg tablet RxNorm: 097682 1 Tablet(s) PO TID PRN as needed 10/08/2016 12/06/2016 Inactive NEED TO GIVE #90 WITH NEXT REFILL Kenalog 40 mg/mL suspension for injection RxNorm: 6770062 Milliliter(s) Inj 09/15/2016 09/15/2016 Inactive tramadol 50 mg tablet RxNorm: 433608 Tablet(s) TAKE 2 TABLETS BY MOUTH TWICE DAILY 08/18/2016 02/12/2017 Inactive Generic For:ULTRAM 50 MG TABLET N O T I C E Last quantity doesn't match original quantity(Response to an electronic controlled substance refill request - RxReferenceNumber: [id number]) potassium chloride ER 10 mEq capsule,extended release RxNorm: 656741 TAKE ONE CAPSULE BY MOUTH DAILY NEEDED 08/03/2016 01/29/2017 Inactive potassium chloride ER 10 mEq capsule,extended release RxNorm: 538489 1 Capsule(s) PO QDAY PRN 06/18/2016 08/02/2016 Inactive furosemide 20 mg tablet RxNorm: 257495 1 Tablet(s) PO daily as needed for swelling 06/18/2016 06/12/2017 Inactive 2 daily x 1 week then daily Carafate 1 gram tablet RxNorm: 422346 1 Tablet(s) PO daily 04/24/2016 04/18/2017 Inactive Cymbalta 60 mg capsule,delayed release RxNorm: 866472 1 Capsule(s) PO daily 04/24/2016 10/20/2016 Inactive montelukast 10 mg tablet RxNorm: 478568 1 Tablet(s) PO QHS 04/24/2016 04/18/2017 Inactive omeprazole 20 mg capsule,delayed release RxNorm: 107711 Capsule(s) 1 Capsule(s) PO daily 04/24/2016 05/31/2017 Inactive ropinirole 1 mg tablet RxNorm: 258324 2 Tablet(s) PO QHS 04/24/2016 04/18/2017 Inactive furosemide 20 mg tablet RxNorm: 387511 1 Tablet(s) PO daily as needed for swelling 04/24/2016 06/17/2016 Inactive labetalol 100 mg tablet RxNorm: 540157 1 Tablet(s) PO BID 04/24/2016 04/18/2017 Inactive amlodipine 5 mg tablet RxNorm: 437122 Tablet(s) TAKE 1 TABLET BY MOUTH TWICE DAILY 04/24/2016 04/18/2017 Inactive Transferring from [facility] Xanax 0.25 mg tablet RxNorm: 860034 1 Tablet(s) PO TID PRN as needed 02/25/2016 03/25/2016 Inactive NEED TO GIVE #90 WITH NEXT REFILL Xanax 0.25 mg tablet RxNorm: 516939 1 Tablet(s) PO BID PRN as needed 02/19/2016 02/24/2016 Inactive [SAVINGS FOR UNINSURED PATIENTS -- BIN:221009, PCN: ASPROD1, Group: [id number], ID# [id number], Process claim through [employer], for questions: . THIS IS NOT INSURANCE.] Cymbalta 60 mg capsule,delayed release RxNorm: 081439 1 Capsule(s) PO daily 01/28/2016 04/23/2016 Inactive ropinirole 1 mg tablet RxNorm: 979216 1 Tablet(s) PO BID TAKE 1 TABLET BY MOUTH DAILY EVERY NIGHT 01/28/2016 04/23/2016 Inactive Generic For:REQUIP 1 MG TABLET tramadol 50 mg tablet RxNorm: 189470 Tablet(s) TAKE 2 TABLETS BY MOUTH TWICE DAILY 01/16/2016 07/13/2016 Inactive Generic For:ULTRAM 50 MG TABLET N O T I C E Last quantity doesn't match original quantity(Response to an electronic controlled substance refill request - RxReferenceNumber: [id number]) omeprazole 20 mg capsule,delayed release RxNorm: 087395 1 Tablet(s) PO daily 1 Capsule(s) PO daily 12/11/2015 04/23/2016 Inactive pravastatin 10 mg tablet RxNorm: 258277 1 Tablet(s) PO QHS TAKE 1 TABLET BY MOUTH EVERY NIGHT 11/28/2015 01/27/2016 Inactive Generic For:PRAVACHOL 10 MG TABLET furosemide 20 mg tablet RxNorm: 169705 1 Tablet(s) PO daily as needed for swelling 11/12/2015 04/23/2016 Inactive pravastatin 10 mg tablet RxNorm: 419997 1 Tablet(s) PO QHS TAKE 1 TABLET BY MOUTH EVERY NIGHT 11/07/2015 11/27/2015 Inactive Generic For:PRAVACHOL 10 MG TABLET Xanax 0.25 mg tablet RxNorm: 486352 1 Tablet(s) PO BID PRN as needed 10/28/2015 01/25/2016 Inactive [SAVINGS FOR UNINSURED PATIENTS -- BIN:464913, PCN: ASPROD1, Group: [id number], ID# [id number], Process claim through [employer], for questions: . THIS IS NOT INSURANCE.] Viberzi 75 mg tablet RxNorm: 9477648 1 Tablet(s) PO BID 10/10/2015 10/10/2015 Inactive doxycycline hyclate 100 mg tablet RxNorm: 6369230 1 Tablet(s) PO BID 10/10/2015 10/23/2015 Inactive Vitamins B Complex capsule RxNorm: 1 Capsule(s) PO daily 09/12/2015 No Stop Date Active Vitamin D3 1,000 unit tablet RxNorm: 025264 3-4 Tablet(s) PO daily 09/12/2015 No Stop Date Active Augmentin 500 mg-125 mg tablet RxNorm: 404704 1 Tablet(s) PO BID 07/09/2015 2015 Inactive probiotic one bid x 7 days Augmentin 500 mg-125 mg tablet RxNorm: 194825 1 Tablet(s) PO BID 07/09/2015 07/08/2015 Inactive Xanax 0.25 mg tablet RxNorm: 216756 1 Tablet(s) PO BID PRN as needed 07/01/2015 09/28/2015 Inactive [SAVINGS FOR UNINSURED PATIENTS -- BIN:561291, PCN: ASPROD1, Group: [id number], ID# [id number], Process claim through [employer], for questions: . THIS IS NOT INSURANCE.] sertraline 100 mg tablet RxNorm: 136859 TAKE 1 TABLET BY MOUTH TWICE DAILY 07/01/2015 01/27/2016 Inactive Generic For:*ZOLOFT 100MG TABLET N O T I C E Last quantity doesn't match original quantity amlodipine 5 mg tablet RxNorm: 473755 TAKE 1 TABLET BY MOUTH TWICE DAILY 06/26/2015 04/23/2016 Inactive Generic For:NORVASC 5 MG TABLET N O T I C E Last quantity doesn't match original quantity amlodipine 5 mg tablet RxNorm: 954690 Tablet(s) 1 Tablet(s) PO BID 06/25/2015 06/25/2015 Inactive ropinirole 1 mg tablet RxNorm: 875994 TAKE 1 TABLET BY MOUTH DAILY EVERY NIGHT 05/22/2015 01/27/2016 Inactive Generic For:REQUIP 1 MG TABLET ropinirole 1 mg tablet RxNorm: 976492 Tablet(s) 1 Tablet(s) PO QPM 05/22/2015 05/21/2015 Inactive pravastatin 10 mg tablet RxNorm: 766644 TAKE 1 TABLET BY MOUTH EVERY NIGHT 05/14/2015 11/06/2015 Inactive Generic For:PRAVACHOL 10 MG TABLET tramadol 50 mg tablet RxNorm: 266701 2 Tablet(s) PO BID 04/25/2015 01/18/2016 Inactive labetalol 100 mg tablet RxNorm: 051824 1 Tablet(s) PO BID 04/09/2015 04/23/2016 Inactive omeprazole 20 mg capsule,delayed release RxNorm: 264160 1 Tablet(s) PO daily 1 Capsule(s) PO daily 03/20/2015 12/10/2015 Inactive Carafate 1 gram tablet RxNorm: 085427 Tablet(s) PO UD 4 times daily x 1 week and then PRN 02/27/2015 02/21/2016 Inactive Xanax 0.25 mg tablet RxNorm: 635509 1 Tablet(s) PO BID PRN as needed 02/08/2015 06/06/2015 Inactive [SAVINGS FOR UNINSURED PATIENTS -- BIN:490165, PCN: ASPROD1, Group: [id number], ID# [id number], Process claim through [employer], for questions: . THIS IS NOT INSURANCE.] furosemide 20 mg tablet RxNorm: 572851 1 Tablet(s) PO daily as needed for swelling 10/25/2014 02/21/2015 Inactive ok to fill by Dr. Franklin 10-25-14 Xanax 0.25 mg tablet RxNorm: 064686 1 Tablet(s) PO BID PRN as needed 09/25/2014 01/21/2015 Inactive [SAVINGS FOR UNINSURED PATIENTS -- BIN:689770, PCN: ASPROD1, Group: [id number], ID# [id number], Process claim through [employer], for questions: . THIS IS NOT INSURANCE.] pravastatin 10 mg tablet RxNorm: 159434 TAKE 1 TABLET BY MOUTH EVERY NIGHT 09/06/2014 04/03/2015 Inactive Generic For:PRAVACHOL 10 MG TABLET tramadol 50 mg tablet RxNorm: 300136 TAKE 2 TABLETS BY MOUTH TWICE DAILY 08/02/2014 01/15/2016 Inactive Generic For:ULTRAM 50 MG TABLET N O T I C E Last quantity doesn't match original quantity(Response to an electronic controlled substance refill request - [facility] [id number]) tramadol 50 mg tablet RxNorm: 830535 2 Tablet(s) PO BID 08/01/2014 08/02/2014 Inactive acyclovir 400 mg tablet RxNorm: 569922 2 Tablet(s) PO QID 07/16/2014 07/25/2014 Inactive sertraline 100 mg tablet RxNorm: 546936 1 Tablet(s) PO BID 1 Tablet(s) PO BID 06/13/2014 12/09/2014 Inactive sertraline 100 mg tablet RxNorm: 599890 1 Tablet(s) PO BID 06/13/2014 06/12/2014 Inactive magnesium oxide 400 mg tablet RxNorm: 848524 1 Tablet(s) PO daily 05/25/2014 2014 Inactive ropinirole 1 mg tablet RxNorm: 983057 1 Tablet(s) PO QPM 05/25/2014 05/19/2015 Inactive amlodipine 5 mg tablet RxNorm: 701691 1 Tablet(s) PO BID 05/25/2014 05/19/2015 Inactive prednisone 10 mg tablets in a dose pack RxNorm: 812078 1 Tablet(s) PO UD 04/06/2014 04/10/2014 Inactive 6-5-4-3-2-1 Xanax 0.25 mg tablet RxNorm: 622809 1 Tablet(s) PO BID PRN as needed 04/04/2014 07/02/2014 Inactive [SAVINGS FOR UNINSURED PATIENTS -- BIN:721630, PCN: ASPROD1, Group: BORIS, ID# [id number], Process claim through [employer], for questions: . THIS IS NOT INSURANCE.] prednisone 20 mg tablet RxNorm: 231924 3 Tablet(s) PO daily 04/02/2014 04/05/2014 Inactive [SAVINGS FOR UNINSURED PATIENTS -- BIN:921044, PCN: ASPROD1, Group: [id number], ID# [id number], Process claim through [employer], for questions: . THIS IS NOT INSURANCE.] cefdinir 300 mg capsule RxNorm: 205512 1 Capsule(s) PO BID 04/02/2014 04/11/2014 Inactive [SAVINGS FOR UNINSURED PATIENTS -- BIN:796282, PCN: ASPROD1, Group: AME08, ID# [id number], Process claim through [employer], for questions: . THIS IS NOT INSURANCE.] Kenalog 40 mg/mL suspension for injection RxNorm: 3606641 Milliliter(s) Inj 04/02/2014 04/02/2014 Inactive [SAVINGS FOR UNINSURED PATIENTS -- BIN:472579, PCN: ASPROD1, Group: [id number], ID# [id number], Process claim through [employer], for questions: . THIS IS NOT INSURANCE.] ceftriaxone 500 mg solution for injection RxNorm: 651522 Inj 04/02/2014 04/02/2014 Inactive [SAVINGS FOR UNINSURED PATIENTS -- BIN:415371, PCN: ASPROD1, Group: AME08, ID# [id number], Process claim through [employer], for questions: . THIS IS NOT INSURANCE.] albuterol sulfate 2.5 mg/0.5 mL solution for nebulization RxNorm: 590775 1 treatment INH QID and as needed for dyspnea 04/02/2014 05/31/2014 Inactive [SAVINGS FOR UNINSURED PATIENTS -- BIN:432957, PCN: ASPROD1, Group: [id number], ID# [id number], Process claim through [employer], for questions: . THIS IS NOT INSURANCE.] azithromycin 500 mg tablet RxNorm: 118384 1 Tablet(s) PO daily 04/02/2014 04/06/2014 Inactive [SAVINGS FOR UNINSURED PATIENTS -- BIN:836668, PCN: ASPROD1, Group: AME08, ID# [id number], Process claim through [employer], for questions: . THIS IS NOT INSURANCE.] omeprazole 20 mg capsule,delayed release RxNorm: 649776 1 Tablet(s) PO daily 1 Capsule(s) PO daily 02/26/2014 06/25/2014 Inactive Xanax 0.25 mg tablet RxNorm: 062519 1 Tablet(s) PO BID PRN as needed 02/01/2014 04/03/2014 Inactive [SAVINGS FOR UNINSURED PATIENTS -- BIN:349181, PCN: ASPROD1, Group: AME08, ID# [id number], Process claim through [employer], for questions: . THIS IS NOT INSURANCE.] Xanax 0.25 mg tablet RxNorm: 242475 1 Tablet(s) PO HS PRN as needed 01/04/2014 01/31/2014 Inactive [SAVINGS FOR UNINSURED PATIENTS -- BIN:393064, PCN: ASPROD1, Group: AME08, ID# [id number], Process claim through [employer], for questions: . THIS IS NOT INSURANCE.] pravastatin 10 mg tablet RxNorm: 396186 1 Tablet(s) PO QHS 12/21/2013 12/20/2013 Inactive pravastatin 10 mg tablet RxNorm: 112792 1 Tablet(s) PO QHS 12/21/2013 07/18/2014 Inactive [SAVINGS FOR UNINSURED PATIENTS -- BIN:144073, PCN: ASPROD1, Group: AME08, ID# [id number], Process claim through [employer], for questions: . THIS IS NOT INSURANCE.] Hytrin 1 mg tablet RxNorm: 034677 1 Tablet(s) PO BID 12/21/2013 04/08/2015 Inactive [SAVINGS FOR UNINSURED PATIENTS -- BIN:321727, PCN: ASPROD1, Group: AME08, ID# [id number], Process claim through [employer], for questions: . THIS IS NOT INSURANCE.] Hytrin 1 mg tablet RxNorm: 996862 1 Tablet(s) PO daily 12/18/2013 12/20/2013 Inactive [SAVINGS FOR UNINSURED PATIENTS -- BIN:341765, PCN: ASPROD1, Group: AME08, ID# [id number], Process claim through [employer], for questions: . THIS IS NOT INSURANCE.] sertraline 100 mg tablet RxNorm: 190977 1 Tablet(s) PO QHS 12/14/2013 12/08/2014 Inactive [SAVINGS FOR UNINSURED PATIENTS -- BIN:645507, PCN: ASPROD1, Group: AME08, ID# [id number], Process claim through [employer], for questions: . THIS IS NOT INSURANCE.] Xanax 0.25 mg tablet RxNorm: 620544 1 Tablet(s) PO HS PRN as needed 12/13/2013 01/03/2014 Inactive [SAVINGS FOR UNINSURED PATIENTS -- BIN:191620, PCN: ASPROD1, Group: AME08, ID# [id number], Process claim through [employer], for questions: . THIS IS NOT INSURANCE.] tramadol 50 mg tablet RxNorm: 265580 2 Tablet(s) PO BID 11/08/2013 04/24/2015 Inactive Xanax 0.25 mg tablet RxNorm: 034745 1 Tablet(s) PO HS PRN as needed 10/19/2013 10/18/2013 Inactive Xanax 0.25 mg tablet RxNorm: 318511 1 Tablet(s) PO HS PRN as needed 10/19/2013 12/12/2013 Inactive Carafate 1 gram tablet RxNorm: 619821 Tablet(s) PO dissolve 1 tab QID x 1 week, then TID x 1 week, then BID x 1 week 09/07/2013 02/26/2015 Inactive omeprazole 20 mg capsule,delayed release RxNorm: 863204 1 Capsule(s) PO daily 09/07/2013 09/06/2013 Inactive omeprazole 20 mg capsule,delayed release RxNorm: 128681 1 Capsule(s) PO daily 09/07/2013 02/26/2014 Inactive prednisone 10 mg tablet RxNorm: 487840 1 Tablet(s) PO 08/25/2013 12/13/2013 Inactive prednisone taper Zithromax Z-Bon 250 mg tablet RxNorm: 002857 Tablet(s) PO as directed 08/25/2013 12/13/2013 Inactive Zithromax Z-Bon 250 mg tablet RxNorm: 682760 Tablet(s) PO as directed 08/04/2013 08/24/2013 Inactive Xanax 0.25 mg tablet RxNorm: 666469 1 Tablet(s) PO HS PRN 08/01/2013 10/18/2013 Inactive Kenalog 40 mg/mL suspension for injection RxNorm: 0086829 Milliliter(s) Inj 08/01/2013 08/01/2013 Inactive tramadol 50 mg tablet RxNorm: 119234 2 Tablet(s) PO BID 05/02/2013 11/07/2013 Inactive carvedilol 25 mg tablet RxNorm: 395894 1 Tablet(s) PO BID 05/02/2013 12/13/2013 Inactive magnesium oxide 400 mg tablet RxNorm: 677577 1 Tablet(s) PO daily 05/02/2013 04/26/2014 Inactive furosemide 20 mg tablet RxNorm: 881069 2 Tablet(s) PO daily 05/02/2013 2014 Inactive amlodipine 5 mg tablet RxNorm: 177407 1 Tablet(s) PO BID 05/02/2013 04/26/2014 Inactive sertraline 100 mg tablet RxNorm: 408801 1 Tablet(s) PO BID 05/02/2013 12/13/2013 Inactive ropinirole 1 mg tablet RxNorm: 789923 1 Tablet(s) PO QPM 05/02/2013 04/26/2014 Inactive pantoprazole 40 mg tablet,delayed release RxNorm: 994745 1 Tablet(s) PO daily 05/02/2013 2014 Inactive gabapentin 600 mg tablet RxNorm: 356558 1 Tablet(s) PO BID 05/02/2013 2014 Inactive aspirin 81 mg tablet,delayed release RxNorm: 855269 1 Tablet(s) PO daily No Start Date Active ferrous fumarate 325 mg (106 mg iron) tablet RxNorm: 689730 1 Tablet(s) PO daily No Start Date 2014 Inactive amlodipine 5 mg tablet RxNorm: 086368 1 Tablet(s) PO BID No Start Date 05/01/2013 Inactive Vitamin B-12 2,500 mcg sublingual tablet RxNorm: 803152 1 Tablet(s) SL daily No Start Date 2014 Inactive Zithromax Z-Bon 250 mg tablet RxNorm: 434640 Tablet(s) PO as directed No Start Date 08/03/2013 Inactive sertraline 100 mg tablet RxNorm: 875731 1 Tablet(s) PO BID No Start Date 05/01/2013 Inactive Hytrin 1 mg tablet RxNorm: 974719 1 Tablet(s) PO BID No Start Date 12/17/2013 Inactive potassium chloride ER 10 mEq capsule,extended release RxNorm: 347273 1 Capsule(s) PO QDAY PRN No Start Date 06/17/2016 Inactive Xanax 0.25 mg tablet RxNorm: 803185 1 Tablet(s) PO HS PRN No Start Date 07/31/2013 Inactive gabapentin 600 mg tablet RxNorm: 576161 1 Tablet(s) PO BID No Start Date 05/01/2013 Inactive ropinirole 1 mg tablet RxNorm: 834898 1 Tablet(s) PO QPM No Start Date 05/01/2013 Inactive Vitamin D3 1,000 unit tablet RxNorm: 508232 2 Tablet(s) PO daily No Start Date 09/11/2015 Inactive furosemide 20 mg tablet RxNorm: 894349 1 Tablet(s) PO BID No Start Date 05/01/2013 Inactive tramadol 50 mg tablet RxNorm: 184453 2 Tablet(s) PO BID No Start Date 05/01/2013 Inactive Carafate 1 gram tablet RxNorm: 606175 Tablet(s) PO dissolve 1 tab QID x 1 week, then TID x 1 week, then BID x 1 week No Start Date 09/06/2013 Inactive pantoprazole 40 mg tablet,delayed release RxNorm: 304233 1 Tablet(s) PO daily No Start Date 05/01/2013 Inactive montelukast 10 mg tablet RxNorm: 712418 1 Tablet(s) PO QHS No Start Date 04/23/2016 Inactive magnesium oxide 400 mg tablet RxNorm: 559996 1 Tablet(s) PO daily No Start Date 05/01/2013 Inactive prednisone 10 mg tablet RxNorm: 543132 1 Tablet(s) PO No Start Date 08/24/2013 Inactive prednisone taper carvedilol 25 mg tablet RxNorm: 847425 1 Tablet(s) PO BID No Start Date 05/01/2013 Inactive baclofen 10 mg tablet RxNorm: 639797 2 Tablet(s) PO daily No Start Date 12/13/2013 Inactive Vitamin B Complex capsule RxNorm: 1 Capsule(s) PO daily No Start Date 2014 Inactive Medication Administered Medication Codes Instructions Start Date Status Kenalog 40 mg/mL suspension for injection RxNorm: 7877657 Milliliter 09/15/2016 No longer Active Kenalog 40 mg/mL suspension for injection RxNorm: 1263790 Milliliter 04/02/2014 No longer Active ceftriaxone 500 mg solution for injection RxNorm: 883961 04/02/2014 No longer Active Kenalog 40 mg/mL suspension for injection RxNorm: 2489531 Milliliter 08/01/2013 No longer Active Immunizations Vaccine Codes Date Status Influenza CVX: 141 01/08/2016 completed Pneumococcal (Adult) CVX: 133 01/08/2016 completed Influenza CVX: 141 01/26/2013 completed Pneumococcal CVX: 33 02/26/2012 completed Tetanus, Diptheria, Pertussis CVX: 113 02/26/2012 completed Tetanus/Diptheria CVX: 113 02/26/2012 completed Assessments Condition Codes Effective Dates Low back pain ICD-10: M54.5 ICD-9: 724.2 09/26/2018 Spinal instabilities, lumbar region ICD-10: M53.2X6 ICD-9: 724.9 09/26/2018 Fusion of spine, lumbar region ICD-10: M43.26 ICD-9: 718.58 09/26/2018 Cough ICD-10: R05 ICD-9: 786.2 07/27/2018 [...] Insomnia, unspecified ICD-10: G47.00 ICD-9: 780.52 11/14/2015 Irritable bowel syndrome with diarrhea ICD-10: K58.0 ICD-9: 564.1 10/10/2015 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 ICD-9: 082.41 10/10/2015 Other fatigue ICD-10: R53.83 ICD-9: 780.79 09/12/2015 Iron deficiency ICD-10: E61.1 ICD-9: 280.9 09/12/2015 Bitten or stung by nonvenomous insect and other nonvenomous arthropods, initial encounter ICD-10: W57.XXXA ICD-9: 919.4 09/12/2015 Vitamin D deficiency, unspecified ICD-10: E55.9 ICD-9: 268.9 09/12/2015 Other vitamin B12 deficiency anemias ICD-10: D51.8 ICD-9: 281.1 09/12/2015 ESSENTIAL HYPERTENSION ICD-9: 401.9 10/05/2014 Easy bruising ICD-9: 782.9 09/07/2014 Chronic kidney disease, stage 3 ICD-9: 585.3 09/07/2014 Iron deficiency anemia ICD-9: 280.9 09/07/2014 Shingles ICD-9: 053.9 07/16/2014 PNEUMONIA (CAP) [...] 09/07/2014 eyelid pain 07/16/2014 cough 04/02/2014 101.5 [place] diaphoresis 12/14/2013 cough 08/01/2013 hypertension 05/02/2013 hypertension 04/18/2013 Results Observation Observation Code Item Item Code Result Date Mayda 753235 MAYDA (MORTEZA) SCREEN NONE DETECTED 06/25/2017 Ra Factor Erq808 RA FACTOR <10 IU/ml 06/24/2017 D-Dimer D-DIMER [...] 28.6 pg 06/01/2017 Cbc With Differential Ord2 [place]% 5.8 % 06/01/2017 Cbc With Differential Ord2 Eos% 1.2 % 06/01/2017 Cbc With Differential Ord2 MCHC 32.9 pg 06/01/2017 Cbc With Differential Ord2 PLT 270 K/ul 06/01/2017 Cbc With Differential Ord2 Baso% 0.9 % 06/01/2017 Cbc With Differential Ord2 RDW 13.5 % 06/01/2017 Cbc With Differential Ord2 Neut ABS# 3.03 K/ul 06/01/2017 Cbc With Differential Ord2 Lymph ABS# 2.17 K/ul 06/01/2017 Cbc With Differential Ord2 [place] ABS# 0.3 K/ul 06/01/2017 Cbc With Differential Ord2 Eos ABS# 0.1 K/ul 06/01/2017 Cbc With Differential Ord2 Baso ABS# 0.1 K/ul 06/01/2017 Comp Metabolic Brj516 NA 137 mEq/L 06/01/2017 Comp Metabolic Zqq757 K 3.7 mEq/L 06/01/2017 Comp Metabolic Clh239 CL 100 mEq/L 06/01/2017 Comp Metabolic Ztz233 CO2 28.0 mEq/L 06/01/2017 Comp Metabolic Eow567 ANION GAP 13 06/01/2017 Comp Metabolic Lvm603 GLUCOSE 94 mg/dL 06/01/2017 Comp Metabolic Riy035 Creat 1.3 mg/dL 06/01/2017 Comp Metabolic Ddc843 eGFR 45 ml/min/1.73m2 06/01/2017 Comp Metabolic Hki583 BUN 12 mg/dL 06/01/2017 Comp Metabolic Onl281 B/C Ratio 9.6 Ratio 06/01/2017 Comp Metabolic Fcp586 CALCIUM 9.5 mg/dL 06/01/2017 Comp Metabolic Wyc210 ALK PHOS 77 U/L 06/01/2017 Comp Metabolic Tgf684 AST(SGOT) 17 U/L 06/01/2017 Comp Metabolic Jmc857 ALT(SGPT) 15 U/L 06/01/2017 Comp Metabolic Lei071 BILI T 0.5 mg/dL 06/01/2017 Comp Metabolic Pxv001 ALBUMIN 4.4 g/dL 06/01/2017 Comp Metabolic Xjr442 TPRO 7.0 g/dL 06/01/2017 Comp Metabolic Vkw908 GLOB 2.6 g/dL 06/01/2017 Comp Metabolic Vyq610 A/G Ratio 1.7 Ratio 06/01/2017 Comp Metabolic Ski834 Osmo 273 mOsmo 06/01/2017 Mayda [id number] MAYDA (MORTEZA) SCREEN NONE DETECTED 06/22/2016 C-Reactive Protein Qnt Crqnt CRP 0.3 mg/dl 06/19/2016 Sed Rate Ord21 ESR 11 mm/hr 06/19/2016 Ra Factor Vdc579 RA FACTOR <10 IU/ml 06/19/2016 Sed Rate Ord21 ESR 14 mm/hr 02/25/2016 C-Reactive Protein Qnt Crqnt CRP 0.3 mg/dl 02/25/2016 Comp Metabolic Cfh984 NA 136 mEq/L 02/25/2016 Comp Metabolic Vso246 K 3.9 mEq/L 02/25/2016 Comp Metabolic Lgy764 CL 103 mEq/L 02/25/2016 Comp Metabolic Whz703 CO2 27.0 mEq/L 02/25/2016 Comp Metabolic Ecy323 ANION GAP 10 02/25/2016 Comp Metabolic Mge958 GLUCOSE 82 mg/dL 02/25/2016 Comp Metabolic Rtr069 Creat 1.3 mg/dL 02/25/2016 Comp Metabolic Qys890 eGFR 45 ml/min/1.73m2 02/25/2016 Comp Metabolic Nsb017 BUN 13 mg/dL 02/25/2016 Comp Metabolic Lsy238 B/C Ratio 10.3 Ratio 02/25/2016 Comp Metabolic Lzp378 CALCIUM 9.5 mg/dL 02/25/2016 Comp Metabolic Kbp618 ALK PHOS 70 U/L 02/25/2016 Comp Metabolic Kvy609 AST(SGOT) 17 U/L 02/25/2016 Comp Metabolic Mml902 ALT(SGPT) 13 U/L 02/25/2016 Comp Metabolic Khd800 BILI T 0.4 mg/dL 02/25/2016 Comp Metabolic Gmy551 ALBUMIN 4.2 g/dL 02/25/2016 Comp Metabolic Fdw514 TPRO 6.6 g/dL 02/25/2016 Comp Metabolic Tqk340 GLOB 2.4 g/dL 02/25/2016 Comp Metabolic Wix050 A/G Ratio 1.7 Ratio 02/25/2016 Comp Metabolic Spl310 Osmo 271 mOsmo 02/25/2016 Cbc With Differential Ord2 WBC 5.16 K/ul 02/25/2016 Cbc With Differential Ord2 RBC 4.50 M/ul 02/25/2016 Cbc With Differential Ord2 HGB 13.1 g/dl 02/25/2016 Cbc With Differential Ord2 Neut% 59.3 % 02/25/2016 Cbc With Differential Ord2 HCT 38.9 % 02/25/2016 Cbc With Differential Ord2 MCV 86.4 fl 02/25/2016 Cbc With Differential Ord2 Lymph% 31.4 % 02/25/2016 Cbc With Differential Ord2 [place]% 6.8 % 02/25/2016 Cbc With Differential Ord2 MCH 29.1 pg 02/25/2016 Cbc With Differential Ord2 MCHC 33.7 pg 02/25/2016 Cbc With Differential Ord2 Eos% 1.9 % 02/25/2016 Cbc With Differential Ord2 PLT 231 K/ul 02/25/2016 Cbc With Differential Ord2 Baso% 0.6 % 02/25/2016 Cbc With Differential Ord2 RDW 13.2 % 02/25/2016 Cbc With Differential Ord2 Neut ABS# 3.06 K/ul 02/25/2016 Cbc With Differential Ord2 Lymph ABS# 1.62 K/ul 02/25/2016 Cbc With Differential Ord2 [place] ABS# 0.4 K/ul 02/25/2016 Cbc With Differential Ord2 Eos ABS# 0.1 K/ul 02/25/2016 Cbc With Differential Ord2 Baso ABS# 0.0 K/ul 02/25/2016 Tsh Ord6 hTSH II 1.63 uIU/mL 02/25/2016 [place] Spotted Fever Igg/Igm [id number] [place] SPOTTED FEVER IGM EIA . 09/17/2015 [place] Spotted Fever Igg/Igm 767740 RMSF, IGM 0.27 index 09/17/2015 [place] Spotted Fever Igg/Igm 301012 BEN[place] SPOTTED FEVER IGG EIA FLEX . 09/17/2015 [place] Spotted Fever Igg/Igm 508345 RMSF, IGG SCREEN-FLEX Negative 09/17/2015 Ehrlichia Chaffeensis Antibody Igm 292986 EHRLICHIA CHAFFEENSIS IGM < 1:16 09/16/2015 Ehrlichia Chaffeensis Antibody Igg 254900 EHRLICHIA CHAFFEENSIS IGG 1:256 09/16/2015 [place]ymes Disease Total Antibodies With Western Blot Reflex [id number] B. BURGDORFERI, IGG/IGM 0.10 LI 09/14/2015 [place]ym[place] Disease Total Antibodies With Western Blot Reflex [id number] 09/14/2015 Vitamin D 25 Oh Tfu3275 VITAMIN D, 25 HYDROXY 59.60 ng/mL 09/13/2015 Sed Rate Ord21 ESR 10 mm/hr 09/12/2015 Comp Metabolic Dwd381 NA 139 mEq/L 09/12/2015 Comp Metabolic Uqi809 K 3.8 mEq/L 09/12/2015 Comp Metabolic Bij296 CL 103 mEq/L 09/12/2015 Comp Metabolic Lgw526 CO2 27.0 mEq/L 09/12/2015 Comp Metabolic Woj289 ANION GAP 13 09/12/2015 Comp Metabolic Oeu088 GLUCOSE 91 mg/dL 09/12/2015 Comp Metabolic Jqv543 Creat 1.2 mg/dL 09/12/2015 Comp Metabolic Yqi008 eGFR 47 ml/min/1.73m2 09/12/2015 Comp Metabolic Xkb076 BUN 20 mg/dL 09/12/2015 Comp Metabolic Vsg925 B/C Ratio 16.3 Ratio 09/12/2015 Comp Metabolic Wkm190 CALCIUM 9.3 mg/dL 09/12/2015 Comp Metabolic Nof866 ALK PHOS 55 U/L 09/12/2015 Comp Metabolic Jsl832 AST(SGOT) 19 U/L 09/12/2015 Comp Metabolic Wcc886 ALT(SGPT) 14 U/L 09/12/2015 Comp Metabolic Nzh523 BILI T 0.6 mg/dL 09/12/2015 Comp Metabolic Rme075 ALBUMIN 4.3 g/dL 09/12/2015 Comp Metabolic Yym417 TPRO 6.8 g/dL 09/12/2015 Comp Metabolic Dsw461 GLOB 2.5 g/dL 09/12/2015 Comp Metabolic Htg052 A/G Ratio 1.8 Ratio 09/12/2015 Comp Metabolic Pye333 Osmo 280 mOsmo 09/12/2015 B12 Tjz262 B12 >1500.00 pg/ml 09/12/2015 Cbc With Differential [...] 28.9 pg 09/12/2015 Cbc With Differential Ord2 [place]% 5.9 % 09/12/2015 Cbc With Differential Ord2 [...] 1.33 K/ul 09/12/2015 Cbc With Differential Ord2 [place] ABS# 0.3 K/ul 09/12/2015 Cbc With Differential [...] nourished 09/26/2018 None Full Exam - General 1994 Eyes conjunctiva/eyelids Overall: conjunctiva clear 09/26/2018 None Full Exam - General 1994 Eyes conjunctiva/eyelids Overall: cornea clear 09/26/2018 None [...] 09/26/2018 None Full Exam - General 1994 Ears/Nose/Throat oral cavity/pharynx/larynx Overall: no masses 09/26/2018 [...] dentition 10/06/2017 None Full Exam - General 1995 Ears/Nose/Throat lips/teeth/gingiva Overall: benign gingiva 10/06/2017 None [...] Full Exam - General 1994 Neurologic coordination Bovvnw-qscg-kydeth testing - left: dysmetria 05/11/2017 None Full Exam - General 1994 Neurologic coordination Otntbj-ibvr-fsspkb testing - right: dysmetria 05/11/2017 None Full [...] Full Exam - General 1994 Neurologic coordination Zcrycv-fqyr-fwsvso testing - left: dysmetria 04/20/2016 None Full Exam - General 1994 Neurologic coordination Illkgm-uifg-horhyu testing - right: dysmetria 04/20/2016 None Full [...] Full Exam - General 1994 Neurologic coordination Vhwuyx-euyx-bdgrrs testing - left: dysmetria 02/25/2016 None Full Exam - General 1994 Neurologic coordination Sfajne-tkoo-aifomx testing - right: dysmetria 02/25/2016 None Full [...] Full Exam - General 1994 Neurologic coordination Chidqt-ilvj-dndfqv testing - left: dysmetria 01/28/2016 None Full Exam - General 1994 Neurologic coordination Qodzmj-mtpv-guvkei testing - right: dysmetria 01/28/2016 None Full [...] palp - head/face Lesion: excoriation 07/16/2014 right christianity, redness right eyelid Full Exam - Dermatology [...] lips 12/14/2013 None Full Exam - General 1994 Ears/Nose/Throat lips/teeth/gingiva Overall: normal dentition 12/14/2013 None Full Exam - General 1994 Ears/Nose/Throat oral cavity/pharynx/larynx Overall: oral mucosa clear 12/14/2013 None Full Exam - General 1994 Ears/Nose/Throat oral cavity/pharynx/larynx Overall: oropharyngeal mucosa clear 12/14/2013 None Full Exam - General 1994 Ears/Nose/Throat oral cavity/pharynx/larynx Overall: hypopharynx benign 12/14/2013 [...] lips 05/02/2013 None Full Exam - General 1994 Ears/Nose/Throat lips/teeth/gingiva Overall: normal dentition 05/02/2013 None [...] Procedure Codes Date THER/PROPH/DIAG INJ SC/IM CPT-4: 49290 09/15/2016 TRIAMCINOLONE ACET INJ NOS CPT-4: J3301 09/15/2016 ADMIN INFLUENZA VIRUS VAC CPT-4: G0008 01/08/2016 ADMIN PNEUMOCOCCAL VACCINE SNOMED CT: 92518606 CPT-4: G0009 01/08/2016 PNEUMOCOCCAL VACC 13 RIVERA IM Formatting Model/CDA Sections, Assigned to/Aliya Muñoz SNOMED CT: 07311051 CPT-4: 94230Sdcthpo 01/08/2016 FLU VACC 4 RIVERA 3 YRS PLUS IM SNOMED CT: 83657982 CPT-4: 46484 01/08/2016 THER/PROPH/DIAG INJ SC/IM CPT-4: 69287 04/02/2014 TRIAMCINOLONE ACET INJ NOS CPT-4: J3301 04/02/2014 ROCEPHIN, PER 250 MG CPT- 4: J0696 04/02/2014 TRIAMCINOLONE ACET INJ NOS CPT-4: J3301 08/01/2013 THER/PROPH/DIAG INJ SC/IM CPT-4: 13518 08/01/2013 Vital Signs Date Vital 09/26/2018 Blood Pressure 1: 124/60 Code: 8480-6 BMI: 36.9 Code: 16415-5 Heart Rate 1: 73 bpm Height: 5'5" SpO2: 95% Weight: 222 lbs 07/27/2018 Blood Pressure 1: 132/74 Code: 8480-6 BMI: 36.3 Code: 19545-4 Heart Rate 1: 73 bpm Height: 5'5" SpO2: 98% Weight: 218 lbs 01/25/2018 Blood Pressure 1: 130/68 Code: 8480-6 BMI: 34.4 Code: 06604-0 Heart Rate 1: 91 bpm Height: 5'5" SpO2: 95% Weight: 207 lbs 10/06/2017 Blood Pressure 1: 118/78 Code: 8480-6 BMI: 34.3 Code: 27990-8 Heart Rate 1: 75 bpm Height: 5'5" SpO2: 98% Weight: 206 lbs 09/27/2017 Blood Pressure 1: 136/88 Code: 8480-6 BMI: 35.4 Code: 22703-4 Heart Rate 1: 86 bpm Height: 5'5" SpO2: 98% Weight: 213 lbs 07/23/2017 Blood Pressure 1: 106/58 Code: 8480-6 BMI: 34.8 Code: 52512-1 Heart Rate 1: 70 bpm Height: 5'5" SpO2: 96% Weight: 209 lbs 06/01/2017 Blood Pressure 1: 150/96 Code: 8480-6 BMI: 34.4 Code: 24409-3 Heart Rate 1: 82 bpm Height: 5'5" SpO2: 99% Weight: 207 lbs 05/11/2017 Blood Pressure 1: 144/90 Code: 8480-6 BMI: 34.6 Code: 40766-4 Heart Rate 1: 76 bpm Height: 5'5" SpO2: 98% Weight: 208 lbs 10/30/2016 Blood Pressure 1: 172/104 Code: 8480-6 Blood Pressure 1: 158/98 Code: 8480-6 BMI: 34.7 Code: 19809-8 Heart Rate 1: 70 bpm Height: 5'5" SpO2: 97% Temperature: 36.2 (C) / 97.1 (F) Weight: 208 lbs 10 oz 04/20/2016 Blood Pressure 1: 144/86 Code: 8480-6 BMI: 34.3 Code: 61027-5 Heart Rate 1: 68 bpm Height: 5'5" SpO2: 97% Weight: 206 lbs 02/25/2016 Blood Pressure 1: 122/82 Code: 8480-6 BMI: 34.4 Code: 69075-9 Heart Rate 1: 86 bpm Height: 5'5" SpO2: 94% Weight: 207 lbs 01/28/2016 Blood Pressure 1: 128/86 Code: 8480-6 BMI: 33.3 Code: 42619-3 Heart Rate 1: 86 bpm Height: 5'5" SpO2: 96% Weight: 200 lbs 11/14/2015 Blood Pressure 1: 140/90 Code: 8480-6 Blood Pressure 1: 138/88 Code: 8480-6 BMI: 33.3 Code: 29173-2 Heart Rate 1: 98 bpm Height: 5'5" SpO2: 97% Weight: 200 lbs 10/10/2015 Blood Pressure 1: 132/80 Code: 8480-6 BMI: 33.3 Code: 68547-0 Heart Rate 1: 74 bpm Height: 5'5" SpO2: 96% Weight: 200 lbs 09/12/2015 Blood Pressure 1: 148/90 Code: 8480-6 BMI: 32.9 Code: 09189-2 Heart Rate 1: 94 bpm Height: 5'5" SpO2: 97% Weight: 198 lbs 04/09/2015 Blood Pressure 1: 160/82 Code: 8480-6 Blood Pressure 1: 130/84 Code: 8480-6 BMI: 32.4 Code: 68579-6 Heart Rate 1: 74 bpm Height: 5'5" SpO2: 95% Weight: 195 lbs 10/05/2014 Blood Pressure 1: 140/80 Code: 8480-6 BMI: 30.5 Code: 49183-6 Heart Rate 1: 79 bpm Height: 5'5" SpO2: 98% Weight: 183 lbs 09/07/2014 Blood Pressure 1: 142/96 Code: 8480-6 BMI: 32.1 Code: 82205-6 Heart Rate 1: 72 bpm Height: 5'5" SpO2: 98% Temperature: 36.5 (C) / 97.7 (F) Weight: 193 lbs 07/16/2014 Blood Pressure 1: 138/82 Code: 8480-6 BMI: 31.8 Code: 30913-8 Heart Rate 1: 76 bpm Height: 5'5" Weight: 191 lbs 04/02/2014 Blood Pressure 1: 148/90 Code: 8480-6 BMI: 33.8 Code: 09970-0 Heart Rate 1: 68 bpm Height: 5'5" Temperature: 36.9 (C) / 98.4 (F) Weight: 203 lbs 12/14/2013 Blood Pressure 1: 140/88 Code: 8480-6 BMI: 35.3 Code: 27785-8 Heart Rate 1: 91 bpm Height: 5'5" SpO2: 97% Weight: 212 lbs 08/01/2013 Blood Pressure 1: 126/68 Code: 8480-6 BMI: 35.1 Code: 82333-5 Heart Rate 1: 76 bpm Height: 5'5" Temperature: 36.7 (C) / 98.1 (F) Weight: 211 lbs 05/02/2013 Blood Pressure 1: 118/86 Code: 8480-6 BMI: 34.9 Code: 93766-3 Heart Rate 1: 76 bpm Height: 5'5" Weight: 209 lbs 8 oz 04/18/2013 Blood Pressure 1: 118/60 Code: 8480-6 BMI: 35.3 Code: 09541-4 Heart Rate 1: 68 bpm Height: 5'5" [...] data Encounters Encounter Performer Location Codes Date ([id number]) 78213 EST. PATIENT, LEVEL III Diagnosis: Low back pain[ICD10: M54.5] Diagnosis: Spinal instabilities, lumbar region[ICD10: M53.2X6] Diagnosis: Fusion of spine, lumbar region[ICD10: M43.26] Marilyn Lao MD, [facility] CPT-4: 16663 09/26/2018 ([id number]) 23440 EST. PATIENT, LEVEL IV Diagnosis: Essential (primary) hypertension[ICD10: I10] Diagnosis: Cough[ICD10: R05] Diagnosis: Chronic kidney disease, stage 3 (moderate)[ICD10: N18.3] Diagnosis: Generalized anxiety disorder[ICD10: F41.1] Marilyn Lao MD, [facility] CPT-4: 54423 07/27/2018 ([id number]) 12598 EST. PATIENT, LEVEL III Diagnosis: Essential (primary) hypertension[ICD10: I10] Marilyn Lao MD, [facility] CPT-4: 01147 01/25/2018 ([id number]) 36512 EST. PATIENT, LEVEL III Diagnosis: Nail dystrophy[ICD10: L60.3] Diagnosis: Localized edema[ICD10: R60.0] Marilyn Lao MD, [facility] CPT-4: 97984 10/06/2017 ([id number]) 32190 EST. PATIENT, LEVEL IV Diagnosis: Essential (primary) hypertension[ICD10: I10] Diagnosis: Localized edema[ICD10: R60.0] Marilyn Lao MD, [facility] CPT-4: 51331 09/27/2017 ([id number]) 93232 EST. PATIENT, LEVEL IV Diagnosis: Generalized anxiety disorder[ICD10: F41.1] Diagnosis: Essential (primary) hypertension[ICD10: I10] Diagnosis: Chronic pain syndrome[ICD10: G89.4] Noa Lao MD, [facility] CPT-4: 47054 07/23/2017 ([id number]) 10579 EST. PATIENT, LEVEL IV Diagnosis: Essential (primary) hypertension[ICD10: I10] Diagnosis: Chest pain, unspecified[ICD10: R07.9] Diagnosis: Chronic kidney disease, stage 3 (moderate)[ICD10: N18.3] Noa Lao MD, [facility] CPT-4: 59583 06/01/2017 05167 EST. PATIENT, LEVEL IV Diagnosis: Gastro-esophageal reflux disease without esophagitis[ICD10: K21.9] Anais Lao MD, [facility] CPT-4: 48881 05/11/2017 ([id number]) 68990 EST. PATIENT, LEVEL III Diagnosis: Essential (primary) hypertension[ICD10: I10] Diagnosis: Contusion of right lower leg, initial encounter[ICD10: S80.11XA] Noa Lao MD, [facility] CPT-4: 75009 10/30/2016 ([id number]) 67094 EST. PATIENT, LEVEL IV Diagnosis: Essential (primary) hypertension[ICD10: I10] Diagnosis: Generalized anxiety disorder[ICD10: F41.1] Marilyn Lao MD, [facility] CPT-4: 61952 04/20/2016 ([id number]) 57974 EST. PATIENT, LEVEL IV Diagnosis: Essential (primary) hypertension[ICD10: I10] Diagnosis: Chronic kidney disease, stage 3 (moderate)[ICD10: N18.3] Diagnosis: Generalized anxiety disorder[ICD10: F41.1] Diagnosis: Major depressive disorder, recurrent, moderate[ICD10: F33.1] Diagnosis: Shortness of breath[ICD10: R06.02] Noa Lao MD, [facility] CPT- 4: 63199 02/25/2016 ([id number]) 86630 EST. PATIENT, LEVEL IV Diagnosis: Generalized anxiety disorder[ICD10: F41.1] Diagnosis: Major depressive disorder, recurrent, moderate[ICD10: F33.1] Diagnosis: Essential (primary) hypertension[ICD10: I10] Diagnosis: Restless legs syndrome[ICD10: G25.81] Diagnosis: Myalgia[ICD10: M79.1] Noa Lao MD, [facility] CPT-4: 52549 01/28/2016 ([id number]) 45464 EST. PATIENT, LEVEL III Diagnosis: Essential (primary) hypertension[ICD10: I10] Diagnosis: Insomnia, unspecified[ICD10: G47.00] Noa Lao MD, [facility] CPT-4: 66726 11/14/2015 ([id number]) 98587 EST. 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 PATIENT, LEVEL IV Diagnosis: Bitten or stung by nonvenomous insect and other nonvenomous arthropods, initial encounter[ICD10: W57.XXXA] Diagnosis: Other fatigue[ICD10: R53.83] Diagnosis: Vitamin D deficiency, unspecified[ICD10: E55.9] Diagnosis: Other vitamin B12 deficiency anemias[ICD10: D51.8] Diagnosis: Essential (primary) hypertension[ICD10: I10] Diagnosis: Iron deficiency[ICD10: E61.1] Noa Lao MD, [facility] CPT-4: 37066 09/12/2015 ([id number]) 08976 EST. PATIENT, LEVEL III Diagnosis: Essential (primary) hypertension[ICD10: I10] Diagnosis: Chronic kidney disease, stage 3 (moderate)[ICD10: N18.3] Noa Lao MD, [facility] CPT-4: 57606 04/09/2015 ([id number]) 64049 EST. PATIENT, LEVEL III Diagnosis: ESSENTIAL HYPERTENSION[ICD9: 401.9] Noa Lao MD, [facility] CPT-4: 80487 10/05/2014 ([id number]) 35361 EST. PATIENT, LEVEL IV Diagnosis: Easy bruising[ICD9: 782.9] Diagnosis: Iron deficiency anemia[ICD9: 280.9] Diagnosis: ESSENTIAL HYPERTENSION[ICD9: 401.9] Diagnosis: Chronic kidney disease, stage 3[ICD9: 585.3] Noa Lao MD, [facility] CPT-4: 76148 09/07/2014 ([id number]) 21700 EST. PATIENT, LEVEL III Diagnosis: Shingles[ICD9: 053.9] Marilyn Lao MD, [facility] CPT-4: 53399 07/16/2014 ([id number]) 80412 EST. PATIENT, LEVEL III Diagnosis: PNEUMONIA (CAP)[ICD9: 486] Diagnosis: COUGH[ICD9: 786.2] Marilyn Lao MD, [facility] CPT-4: 19614 04/02/2014 ([id number]) 96923 EST. PATIENT, LEVEL III Diagnosis: ESSENTIAL HYPERTENSION[ICD9: 401.9] Diagnosis: Rib pain on left side[ICD9: 786.50] Diagnosis: EDEMA[ICD9: 782.3] Noa Lao MD, [facility] CPT-4: 51363 12/14/2013 ([id number]) 26874 EST. PATIENT, LEVEL IV Diagnosis: ESOPHAGEAL REFLUX[ICD9: 530.81] Diagnosis: Urge incontinence[ICD9: 788.31] Diagnosis: Elbow pain, right[ICD9: 719.42] Diagnosis: Snoring[ICD9: 786.09] Marilyn Lao MD, [facility] CPT-4: 89268 08/01/2013 ([id number]) 18203 EST. PATIENT, LEVEL IV Diagnosis: ESSENTIAL HYPERTENSION[SNOMED: 03688281] Diagnosis: EDEMA[ICD9: 782.3] Diagnosis: Chronic renal insufficiency, stage III (moderate)[ICD9: 585.3] Diagnosis: HYPERLIPIDEMIA[ICD9: 272.4] Marilyn Lao MD, [facility] CPT-4: 45461 05/02/2013 ([id number]) 54390 EST. PATIENT, LEVEL IV Diagnosis: ESSENTIAL HYPERTENSION[SNOMED: 01678572] Diagnosis: Restless leg[ICD9: 333.94] Marilyn Lao MD, [facility] CPT-4: 96309 04/18/2013 Plan of Care Planned Activity Notes [...] imaging needs to be set up in [place] at [facility] so that her spine surgeon has easier access to the information/imaging. 09/26/2018 Appointment: Marilyn Lao WPtel: [facility]5 [facility] [place] (15 min) Moderate 09/26/2018 Patient Education: Patient Medication Summary Completed 09/26/2018 Patient Education: Back Pain Completed 09/26/2018 Care Plan[facility] Pending 09/26/2018 Visit Plan: Hypertension - well [...] current medications. 07/27/2018 Appointment: Marilyn Lao [facility]Ptel[facility] [place] (15 min) Moderate 07/27/2018 Patient Education: Patient Medication Summary Completed 07/27/2018 Appointment: Marilyn Lao WPtel: [facility] [place] (15 min) Moderate 07/26/2018 Visit Plan: Hypertension - well controlled - continue with current medications, continue with no added salt diet. Pt has been encouraged to exercise daily. The pt has been advised to call the office if there are any acute concerns about change in blood pressure readings at home. 01/25/2018 Appointment: Marilyn Lao WPtel: [facility]4 [facility] [place] (15 min) Moderate 01/25/2018 Patient Education: Patient Medication Summary Completed 01/25/2018 Appointment: Marilyn Lao WPtel: [facility]5 [facility] (15 min) Moderate 01/06/2018 Patient Education: Patient Medication Summary Completed 10/26/2017 Care Plan: Comp Metabolic Cancelled 10/26/2017 Visit Plan: Tinea/Onychodystrophy - penlac prescribed, pt did not want to take medication by mouth for treatment. Edema - improved - continue current regimen. 10/06/2017 Appointment: Marilyn Lao WPtel: [phone] [facility] (15 min) Moderate 10/06/2017 Patient Education: [...] blood pressure readings at home. 09/27/2017 Appointment: Tashia [facility]ilyn [phone] [facility] (15 min) Moderate 09/27/2017 Patient Education: Patient [...] pain-recommend massage 07/23/2017 Appointment: Noa Orlando WPtel: [phone] [phone] (15 min) Moderate 07/23/2017 Patient Education: Patient [...] breath worsens 06/01/2017 [facility]ment: [facility] [place] [phone] (30 min) Complex 06/01/2017 Patient Education: Patient Medication Summary Completed 06/01/2017 Care Plan: Referral Order SNOMED-CT : 205815762 Pending 06/01/2017 Visit Plan: Esophageal Reflux - the patient has been counseled against excessive intake of caffeine, spicy foods, peppermint, and cinnamon - all of which can exacerbate esophageal reflux. The patient is to take med ications as prescribed and call the office if the symptoms are not improving. 05/11/2017 Appointment: Anais Arrieta [facility]el[facility] [phone] [facility] (15 min) Moderate 05/11/2017 Patient Education: Patient [...] Completed 09/15/2016 Appointment: Marilyn Lao WPtel: [phone] [facility] (15 min) Moderate 08/19/2016 Patient Education: [...] current medications. 04/20/2016 Appointment: Marilyn Lao WPtel: [facility]0 [facility] (30 min) Complex 04/20/2016 Patient Education: Patient Medication Summary Completed 04/20/2016 Patient Education: Obesity Completed 04/20/2016 Patient Education: Hypertension Completed 04/20/2016 Appointment: Noa Orlando WPtel: [facility]5 [phone] (30 min) Complex 03/16/2016 Referral: Ta Santacruz [...] for follow up. Chronic renal disease-check labs Iepjrdd-upcvnewnwf-ulceckdq with cymbalta-continue same dose for now -may take xanax TID PRN Multiple joint pain-check labs including inflammatory markers 02/25/2016 Appointment: Noa Orlando WPtel: [phone] [phone] [place] (30 min) Complex 02/25/2016 Patient Education: Patient Medication Summary Completed 02/25/2016 Patient Education: Obesity Completed 02/25/2016 Patient Education: Hypertension Completed 02/25/2016 Care Plan: Referral Order SNOMED-CT : 654068121 Pending 02/25/2016 Visit Plan: Anxiety/Depression - the [...] in blood pressure readings at home. Restless hjh-espetb-ffmmnyyn requip to twice daily-monitor symptoms Myalgias-stop pravastatin 01/28/2016 Appointment: Noa Orlando WPtel: [phone] (30 min) Complex 01/28/2016 Patient Education: Patient [...] Completed 10/10/2015 Appointment: Marilyn Lao WPtel: [phone] [facility] (15 min) Moderate 10/08/2015 Visit Plan: Hypertension - well controlled - continue with current medications, continue with no added salt diet. Pt has been encouraged to exercise daily. The pt has been advised to call the office if there are any acute concerns about change in blood pressure readings at home. Iron deficiency- B12 deficiency-check labs Tick vwft-ibblqyp-chbtl tick panel 09/12/2015 Appointment: Noa Orlando WPtel: [phone] [phone] (15 min) Moderate 09/12/2015 Patient Education: Patient [...] symptoms Iron deficiency anemia-stopped oral iron per clinical mental health counselor in March-recheck labs HTN-elevated today-monitor twice daily [...] Care Plan: COMPLETE CBC AUTOMATED LOINC : 55741-5 Ordered 09/07/2014 Visit Plan: Shingles - Herpes [...] Summary Completed 07/16/2014 Appointment: Marilyn Lao WPtel: [facility]5 [place] [phone] Follow up 04/16/2014 Appointment: Sick 04/03/2014 Visit Plan: Pneumonia - Pt has been diagnosed with pneumonia by physical exam. Antibiotics started. The pt is aware of the diagnosis and the need for acute treatment of this illness. 04/02/2014 Patient Education: Patient Medication Summary Completed 04/02/2014 Appointment: Marilyn Lao WPtel: [address] [place], [place] [phone] Sick 12/27/2013 Patient Education: Patient Medication Summary [...] further attempt to reduce peripheral edema. Night ihsdtu-tkummmh-hbacx labs 12/14/2013 Appointment: Follow up 12/14/2013 Patient Education: Patient Medication Summary Completed 12/14/2013 Patient Education: Hypertension Completed 12/14/2013 Appointment: Noa Orlando WPtel: [facility]1 [phone] Sick 12/01/2013 Appointment: Marilyn Lao WPtel: [facility]2 [facility] Sick 11/30/2013 Visit Plan: Allergies - [...] monitor symptoms. 08/01/2013 Appointment: Marilyn Lao WPtel: [facility]8 [facility] Follow up 08/01/2013 Patient Education: Patient [...] as able. 05/02/2013 Appointment: [phone] Follow [facility] 05/02/2013 Patient Education: Patient Medication [...] orange juice. 04/18/2013 Appointment: [facility]el[phone] [facility] New Patient 04/18/2013 Patient Education: Patient Medication Summary Completed 04/18/2013 Patient Education: Hypertension Completed 04/18/2013 Referral: Ta Santacruz Referral Appointment Requested Referral: Ta Santacruz Referral Appointment Requested Instructions Comment . Chronic Depression and anxiety - the [...] at home. Iron deficiency-B12 deficiency-check labs Tick fpto-zrfmzka-awxns tick panel . Hypertension - well controlled [...] NEEDED CHECK LABS RECOMMEND APPOINTMENT WITH DR SANTACRUZ-DUE FOR ECHOCARDIOGRAM . Hypertension - well controlled [...] for follow up. Chronic renal disease-check labs Fqgpioy-eaazmkxxdk-hwlncgdy with cymbalta-continue same dose for now -may [...] in blood pressure readings at home. Restless qrz-qixxaa-arembtuu requip to twice daily-monitor symptoms Myalgias-stop pravastatin get labs done one week before next [...] exposure. No change in current medications. . Hypertension - well controlled - continue [...] symptoms Iron deficiency anemia-stopped oral iron per clinical mental health counselor in March-recheck labs HTN-elevated today-monitor twice daily [...] imaging needs to be set up in [facility] so that her spine surgeon has easier access to the information/imaging. . Shingles - Herpes Zoster - acute [...] the pt is to be considered contagious. . Hypertension - well controlled - continue with current medications, continue with no added salt diet. Pt has been encouraged to exercise daily. The pt has been advised to call the office if there are any acute concerns about change in blood pressure readings at home. doxycycline 100mg twice daily x 2 weeks [...] for viberzi provided and instructed on use. . Allergies - chronic - recommended pt [...] help with her elbow pain, monitor symptoms. add LOSARTAN 50MG DAILY APPT WITH DR [...] chest pain or shortness of breath worsens start on the azithromycin today start on [...] further attempt to reduce peripheral edema. Night bhihbg-xmdpnta-utekl labs
--- OUTSIDE RECORDS SUMMARY | 2018-11-04 15:34 | XMS REPORT | CCD ---
Author Author Marilyn Lao Organization Marilyn Lao MD, [facility] Address [address] [place] [address] Phone Care Team Providers Care Multicultural Manager Name Role Phone PP Unavailable CCM Unavailable Summary Purpose Interface Exchange Insurance Providers Payer name Policy type / Coverage type Covered green party ID Effective Begin Date Effective End Date WPS Medicare Part B Medicare Part B [id number] Unknown [employer] and Life Medicare Part B [id number] Unknown Family history Mother Diagnosis Age At [...] Description Effective Dates Tobacco history SNOMED CT: 377495378 Never smoker but had significant smoke exposure during first marriage, [place]. 08/01/2013 Employment Unknown Retired doing as needed working for the [employer]. 05/02/2013 Marital status Unknown 04/18/[address]: 352651537 Never drinks alcohol 04/18/2013 Has the patient [...] Fill Instructions baclofen 5 mg tablet RxNorm: 704566 1/2 Tablet(s) PO TID as needed 09/26/2018 11/24/2018 Active Xanax 0.5 mg tablet RxNorm: 427678 1 Tablet(s) PO UD 1/2 AM, 1/2 noon if needed and 1 hs 07/27/2018 11/23/2018 Active Tessalon Perles 100 mg capsule RxNorm: 082159 1 Capsule(s) PO TID as needed cough 07/27/2018 10/24/2018 Active doxycycline hyclate 100 mg tablet RxNorm: 9702551 1 Tablet(s) PO BID 07/12/2018 07/25/2018 Inactive ropinirole 1 mg tablet RxNorm: 680254 TAKE TWO TABLETS BY MOUTH EVERY NIGHT AT BEDTIME 07/04/2018 03/30/2019 Active Carafate 1 gram tablet RxNorm: 733573 TAKE ONE TABLET BY MOUTH FOUR TIMES A DAY 07/04/2018 10/01/2018 Active montelukast 10 mg tablet RxNorm: 416626 TAKE ONE TABLET BY MOUTH EVERY NIGHT AT BEDTIME 07/04/2018 03/30/2019 Active losartan 100 mg tablet RxNorm: 328193 1 Tablet(s) PO daily 05/04/2018 01/28/2019 Active tramadol 50 mg tablet RxNorm: 734338 2 Tablet(s) PO BID 04/26/2018 06/24/2018 Inactive alprazolam 0.5 mg tablet RxNorm: 673317 1/2-1 Tablet(s) PO TID PRN as needed 04/04/2018 06/01/2018 Inactive Xanax 0.5 mg tablet RxNorm: 479392 1 Tablet(s) PO TID PRN as needed 04/04/2018 07/26/2018 Inactive tramadol 50 mg tablet RxNorm: 168766 2 Tablet(s) PO BID 12/01/2017 01/29/2018 Inactive Cymbalta 60 mg capsule,delayed release RxNorm: 737810 TAKE ONE CAPSULE BY MOUTH DAILY 11/10/2017 11/04/2018 Active furosemide 40 mg tablet RxNorm: 791005 1 Tablet(s) PO daily 10/26/2017 10/20/2018 Active alprazolam 0.5 mg tablet RxNorm: 333122 1/2-1 Tablet(s) PO TID PRN as needed 10/12/2017 12/10/2017 Inactive Ciclodan 8 % topical solution RxNorm: 0263306 1 Application TOP daily x 7 days, clean off with alcohol then restart cycle of application until fungal infection is completely cleared 10/06/2017 01/03/2018 Inactive omeprazole 20 mg capsule,delayed release RxNorm: 888570 TAKE ONE CAPSULE BY MOUTH DAILY 10/04/2017 01/24/2018 Inactive losartan 100 mg tablet RxNorm: 151879 1 Tablet(s) PO daily 09/27/2017 03/24/2018 Inactive Xanax 0.25 mg tablet RxNorm: 041928 1 Tablet(s) PO TID PRN as needed 08/13/2017 10/09/2017 Inactive Xanax 0.5 mg tablet RxNorm: 353284 1 Tablet(s) PO TID PRN as needed 07/23/2017 11/18/2017 Inactive ropinirole 1 mg tablet RxNorm: 345733 TAKE TWO TABLETS BY MOUTH EVERY NIGHT AT BEDTIME 06/28/2017 06/22/2018 Inactive montelukast 10 mg tablet RxNorm: 172298 TAKE ONE TABLET BY MOUTH EVERY NIGHT AT BEDTIME 06/28/2017 06/22/2018 Inactive furosemide 20 mg tablet RxNorm: 771804 TAKE TWO TABLETS BY MOUTH DAILY FOR 7 DAYS THEN TAKE ONE TABLET BY MOUTH DAILY 06/28/2017 10/01/2017 Inactive losartan 50 mg tablet RxNorm: 555903 1 Tablet(s) PO daily 06/01/2017 09/26/2017 Inactive labetalol 100 mg tablet RxNorm: 078341 TAKE ONE TABLET BY MOUTH TWICE A DAY 05/26/2017 05/30/2017 Inactive labetalol 100 mg tablet RxNorm: 942189 1 Tablet(s) PO BID 05/26/2017 05/20/2018 Inactive Protonix 40 mg tablet,delayed release RxNorm: 693972 1 Tablet(s) PO daily 05/26/2017 05/20/2018 Inactive amlodipine 5 mg tablet RxNorm: 694412 TAKE ONE TABLET BY MOUTH TWICE A DAY 05/26/2017 09/26/2017 Inactive Protonix 40 mg tablet,delayed release RxNorm: 013143 1 Tablet(s) PO daily 05/11/2017 05/25/2017 Inactive Carafate 1 gram tablet RxNorm: 795596 1 Tablet(s) PO QID 05/11/2017 09/07/2017 Inactive Cymbalta 60 mg capsule,delayed release RxNorm: 918092 TAKE ONE CAPSULE BY MOUTH DAILY 05/05/2017 10/31/2017 Inactive Xanax 0.25 mg tablet RxNorm: 765899 1 Tablet(s) PO TID PRN as needed 02/09/2017 06/07/2017 Inactive Cymbalta 60 mg capsule,delayed release RxNorm: 723918 TAKE ONE CAPSULE BY MOUTH DAILY 10/28/2016 04/25/2017 Inactive Xanax 0.25 mg tablet RxNorm: 239301 1 Tablet(s) PO TID PRN as needed 10/08/2016 12/06/2016 Inactive NEED TO GIVE #90 WITH NEXT REFILL Kenalog 40 mg/mL suspension for injection RxNorm: 1551964 Milliliter(s) Inj 09/15/2016 09/15/2016 Inactive tramadol 50 mg tablet RxNorm: 407269 Tablet(s) TAKE 2 TABLETS BY MOUTH TWICE DAILY 08/18/2016 02/12/2017 Inactive Generic For:ULTRAM 50 MG TABLET N O T I C E Last quantity doesn't match original quantity(Response to an electronic controlled substance refill request - RxReferenceNumber: [id number]) potassium chloride ER 10 mEq capsule,extended release RxNorm: 212726 TAKE ONE CAPSULE BY MOUTH DAILY NEEDED 08/03/2016 01/29/2017 Inactive potassium chloride ER 10 mEq capsule,extended release RxNorm: 450430 1 Capsule(s) PO QDAY PRN 06/18/2016 08/02/2016 Inactive furosemide 20 mg tablet RxNorm: 116461 1 Tablet(s) PO daily as needed for swelling 06/18/2016 06/12/2017 Inactive 2 daily x 1 week then daily Carafate 1 gram tablet RxNorm: 120204 1 Tablet(s) PO daily 04/24/2016 04/18/2017 Inactive Cymbalta 60 mg capsule,delayed release RxNorm: 041132 1 Capsule(s) PO daily 04/24/2016 10/20/2016 Inactive montelukast 10 mg tablet RxNorm: 168714 1 Tablet(s) PO QHS 04/24/2016 04/18/2017 Inactive omeprazole 20 mg capsule,delayed release RxNorm: 242888 Capsule(s) 1 Capsule(s) PO daily 04/24/2016 05/31/2017 Inactive ropinirole 1 mg tablet RxNorm: 556398 2 Tablet(s) PO QHS 04/24/2016 04/18/2017 Inactive furosemide 20 mg tablet RxNorm: 062796 1 Tablet(s) PO daily as needed for swelling 04/24/2016 06/17/2016 Inactive labetalol 100 mg tablet RxNorm: 631235 1 Tablet(s) PO BID 04/24/2016 04/18/2017 Inactive amlodipine 5 mg tablet RxNorm: 699142 Tablet(s) TAKE 1 TABLET BY MOUTH TWICE DAILY 04/24/2016 04/18/2017 Inactive Transferring from [facility] Xanax 0.25 mg tablet RxNorm: 010342 1 Tablet(s) PO TID PRN as needed 02/25/2016 03/25/2016 Inactive NEED TO GIVE #90 WITH NEXT REFILL Xanax 0.25 mg tablet RxNorm: 177513 1 Tablet(s) PO BID PRN as needed 02/19/2016 02/24/2016 Inactive [SAVINGS FOR UNINSURED PATIENTS -- BIN:543571, PCN: ASPROD1, Group: [id number], ID# [id number], Process claim through [employer], for questions: . THIS IS NOT INSURANCE.] Cymbalta 60 mg capsule,delayed release RxNorm: 876101 1 Capsule(s) PO daily 01/28/2016 04/23/2016 Inactive ropinirole 1 mg tablet RxNorm: 216369 1 Tablet(s) PO BID TAKE 1 TABLET BY MOUTH DAILY EVERY NIGHT 01/28/2016 04/23/2016 Inactive Generic For:REQUIP 1 MG TABLET tramadol 50 mg tablet RxNorm: 996984 Tablet(s) TAKE 2 TABLETS BY MOUTH TWICE DAILY 01/16/2016 07/13/2016 Inactive Generic For:ULTRAM 50 MG TABLET N O T I C E Last quantity doesn't match original quantity(Response to an electronic controlled substance refill request - RxReferenceNumber: [id number]) omeprazole 20 mg capsule,delayed release RxNorm: 777997 1 Tablet(s) PO daily 1 Capsule(s) PO daily 12/11/2015 04/23/2016 Inactive pravastatin 10 mg tablet RxNorm: 004980 1 Tablet(s) PO QHS TAKE 1 TABLET BY MOUTH EVERY NIGHT 11/28/2015 01/27/2016 Inactive Generic For:PRAVACHOL 10 MG TABLET furosemide 20 mg tablet RxNorm: 720187 1 Tablet(s) PO daily as needed for swelling 11/12/2015 04/23/2016 Inactive pravastatin 10 mg tablet RxNorm: 394207 1 Tablet(s) PO QHS TAKE 1 TABLET BY MOUTH EVERY NIGHT 11/07/2015 11/27/2015 Inactive Generic For:PRAVACHOL 10 MG TABLET Xanax 0.25 mg tablet RxNorm: 225872 1 Tablet(s) PO BID PRN as needed 10/28/2015 01/25/2016 Inactive [SAVINGS FOR UNINSURED PATIENTS -- BIN:967257, PCN: ASPROD1, Group: AME08, ID# [id number], Process claim through [employer], for questions: . THIS IS NOT INSURANCE.] Viberzi 75 mg tablet RxNorm: 1746510 1 Tablet(s) PO BID 10/10/2015 10/10/2015 Inactive doxycycline hyclate 100 mg tablet RxNorm: 2685104 1 Tablet(s) PO BID 10/10/2015 10/23/2015 Inactive Vitamins B Complex capsule RxNorm: 1 Capsule(s) PO daily 09/12/2015 No Stop Date Active Vitamin D3 1,000 unit tablet RxNorm: 207213 3-4 Tablet(s) PO daily 09/12/2015 No Stop Date Active Augmentin 500 mg-125 mg tablet RxNorm: 880276 1 Tablet(s) PO BID 07/09/2015 2015 Inactive probiotic one bid x 7 days Augmentin 500 mg-125 mg tablet RxNorm: 127225 1 Tablet(s) PO BID 07/09/2015 07/08/2015 Inactive Xanax 0.25 mg tablet RxNorm: 149988 1 Tablet(s) PO BID PRN as needed 07/01/2015 09/28/2015 Inactive [SAVINGS FOR UNINSURED PATIENTS -- BIN:665666, PCN: ASPROD1, Group: AME08, ID# [id number], Process claim through [employer], for questions: . THIS IS NOT INSURANCE.] sertraline 100 mg tablet RxNorm: 955714 TAKE 1 TABLET BY MOUTH TWICE DAILY 07/01/2015 01/27/2016 Inactive Generic For:*ZOLOFT 100MG TABLET N O T I C E Last quantity doesn't match original quantity amlodipine 5 mg tablet RxNorm: 349918 TAKE 1 TABLET BY MOUTH TWICE DAILY 06/26/2015 04/23/2016 Inactive Generic For:NORVASC 5 MG TABLET N O T I C E Last quantity doesn't match original quantity amlodipine 5 mg tablet RxNorm: 199053 Tablet(s) 1 Tablet(s) PO BID 06/25/2015 06/25/2015 Inactive ropinirole 1 mg tablet RxNorm: 655972 TAKE 1 TABLET BY MOUTH DAILY EVERY NIGHT 05/22/2015 01/27/2016 Inactive Generic For:REQUIP 1 MG TABLET ropinirole 1 mg tablet RxNorm: 582569 Tablet(s) 1 Tablet(s) PO QPM 05/22/2015 05/21/2015 Inactive pravastatin 10 mg tablet RxNorm: 983988 TAKE 1 TABLET BY MOUTH EVERY NIGHT 05/14/2015 11/06/2015 Inactive Generic For:PRAVACHOL 10 MG TABLET tramadol 50 mg tablet RxNorm: 542286 2 Tablet(s) PO BID 04/25/2015 01/18/2016 Inactive labetalol 100 mg tablet RxNorm: 053390 1 Tablet(s) PO BID 04/09/2015 04/23/2016 Inactive omeprazole 20 mg capsule,delayed release RxNorm: 019456 1 Tablet(s) PO daily 1 Capsule(s) PO daily 03/20/2015 12/10/2015 Inactive Carafate 1 gram tablet RxNorm: 447626 Tablet(s) PO UD 4 times daily x 1 week and then PRN 02/27/2015 02/21/2016 Inactive Xanax 0.25 mg tablet RxNorm: 246234 1 Tablet(s) PO BID PRN as needed 02/08/2015 06/06/2015 Inactive [SAVINGS FOR UNINSURED PATIENTS -- BIN:604432, PCN: ASPROD1, Group: AME08, ID# [id number], Process claim through [employer], for questions: . THIS IS NOT INSURANCE.] furosemide 20 mg tablet RxNorm: 931482 1 Tablet(s) PO daily as needed for swelling 10/25/2014 02/21/2015 Inactive ok to fill by Dr. Franklin 10-25-14 Xanax 0.25 mg tablet RxNorm: 510719 1 Tablet(s) PO BID PRN as needed 09/25/2014 01/21/2015 Inactive [SAVINGS FOR UNINSURED PATIENTS -- BIN:925408, PCN: ASPROD1, Group: AME08, ID# [id number], Process claim through [employer], for questions: . THIS IS NOT INSURANCE.] pravastatin 10 mg tablet RxNorm: 712334 TAKE 1 TABLET BY MOUTH EVERY NIGHT 09/06/2014 04/03/2015 Inactive Generic For:PRAVACHOL 10 MG TABLET tramadol 50 mg tablet RxNorm: 462118 TAKE 2 TABLETS BY MOUTH TWICE DAILY 08/02/2014 01/15/2016 Inactive Generic For:ULTRAM 50 MG TABLET N O T I C E Last quantity doesn't match original quantity(Response to an electronic controlled substance refill request [facility] [id number]) tramadol 50 mg tablet RxNorm: 958085 2 Tablet(s) PO BID 08/01/2014 08/02/2014 Inactive acyclovir 400 mg tablet RxNorm: 555179 2 Tablet(s) PO QID 07/16/2014 07/25/2014 Inactive sertraline 100 mg tablet RxNorm: 575811 1 Tablet(s) PO BID 1 Tablet(s) PO BID 06/13/2014 12/09/2014 Inactive sertraline 100 mg tablet RxNorm: 841811 1 Tablet(s) PO BID 06/13/2014 06/12/2014 Inactive magnesium oxide 400 mg tablet RxNorm: 531254 1 Tablet(s) PO daily 05/25/2014 2014 Inactive ropinirole 1 mg tablet RxNorm: 927572 1 Tablet(s) PO QPM 05/25/2014 05/19/2015 Inactive amlodipine 5 mg tablet RxNorm: 980935 1 Tablet(s) PO BID 05/25/2014 05/19/2015 Inactive prednisone 10 mg tablets in a dose pack RxNorm: 550148 1 Tablet(s) PO UD 04/06/2014 04/10/2014 Inactive 6-5-4-3-2-1 Xanax 0.25 mg tablet RxNorm: 020764 1 Tablet(s) PO BID PRN as needed 04/04/2014 07/02/2014 Inactive [SAVINGS FOR UNINSURED PATIENTS -- BIN:603048, PCN: ASPROD1, Group: BORIS, ID# [id number], Process claim through [employer], for questions: . THIS IS NOT INSURANCE.] prednisone 20 mg tablet RxNorm: 512228 3 Tablet(s) PO daily 04/02/2014 04/05/2014 Inactive [SAVINGS FOR UNINSURED PATIENTS -- BIN:398020, PCN: ASPROD1, Group: [id number], ID# [id number], Process claim through [employer], for questions: . THIS IS NOT INSURANCE.] cefdinir 300 mg capsule RxNorm: 680639 1 Capsule(s) PO BID 04/02/2014 04/11/2014 Inactive [SAVINGS FOR UNINSURED PATIENTS -- BIN:913304, PCN: ASPROD1, Group: AME08, ID# [id number], Process claim through [employer], for questions: . THIS IS NOT INSURANCE.] Kenalog 40 mg/mL suspension for injection RxNorm: 9735758 Milliliter(s) Inj 04/02/2014 04/02/2014 Inactive [SAVINGS FOR UNINSURED PATIENTS -- BIN:408783, PCN: ASPROD1, Group: AME08, ID# [id number], Process claim through [employer], for questions: . THIS IS NOT INSURANCE.] ceftriaxone 500 mg solution for injection RxNorm: 601937 Inj 04/02/2014 04/02/2014 Inactive [SAVINGS FOR UNINSURED PATIENTS -- BIN:678526, PCN: ASPROD1, Group: AME08, ID# [id number], Process claim through [employer], for questions: . THIS IS NOT INSURANCE.] albuterol sulfate 2.5 mg/0.5 mL solution for nebulization RxNorm: 000014 1 treatment INH QID and as needed for dyspnea 04/02/2014 05/31/2014 Inactive [SAVINGS FOR UNINSURED PATIENTS -- BIN:570505, PCN: ASPROD1, Group: AME08, ID# [id number], Process claim through [employer], for questions: . THIS IS NOT INSURANCE.] azithromycin 500 mg tablet RxNorm: 676964 1 Tablet(s) PO daily 04/02/2014 04/06/2014 Inactive [SAVINGS FOR UNINSURED PATIENTS -- BIN:281815, PCN: ASPROD1, Group: AME08, ID# [id number], Process claim through [employer], for questions: . THIS IS NOT INSURANCE.] omeprazole 20 mg capsule,delayed release RxNorm: 034268 1 Tablet(s) PO daily 1 Capsule(s) PO daily 02/26/2014 06/25/2014 Inactive Xanax 0.25 mg tablet RxNorm: 344510 1 Tablet(s) PO BID PRN as needed 02/01/2014 04/03/2014 Inactive [SAVINGS FOR UNINSURED PATIENTS -- BIN:584221, PCN: ASPROD1, Group: AME08, ID# [id number], Process claim through [employer], for questions: . THIS IS NOT INSURANCE.] Xanax 0.25 mg tablet RxNorm: 474700 1 Tablet(s) PO HS PRN as needed 01/04/2014 01/31/2014 Inactive [SAVINGS FOR UNINSURED PATIENTS -- BIN:348311, PCN: ASPROD1, Group: AME08, ID# [id number], Process claim through [employer], for questions: . THIS IS NOT INSURANCE.] pravastatin 10 mg tablet RxNorm: 692240 1 Tablet(s) PO QHS 12/21/2013 12/20/2013 Inactive pravastatin 10 mg tablet RxNorm: 473140 1 Tablet(s) PO QHS 12/21/2013 07/18/2014 Inactive [SAVINGS FOR UNINSURED PATIENTS -- BIN:088812, PCN: ASPROD1, Group: AME08, ID# [id number], Process claim through [employer], for questions: . THIS IS NOT INSURANCE.] Hytrin 1 mg tablet RxNorm: 862174 1 Tablet(s) PO BID 12/21/2013 04/08/2015 Inactive [SAVINGS FOR UNINSURED PATIENTS -- BIN:313740, PCN: ASPROD1, Group: AME08, ID# [id number], Process claim through [employer], for questions: . THIS IS NOT INSURANCE.] Hytrin 1 mg tablet RxNorm: 450433 1 Tablet(s) PO daily 12/18/2013 12/20/2013 Inactive [SAVINGS FOR UNINSURED PATIENTS -- BIN:510878, PCN: ASPROD1, Group: AME08, ID# [id number], Process claim through [employer], for questions: . THIS IS NOT INSURANCE.] sertraline 100 mg tablet RxNorm: 771466 1 Tablet(s) PO QHS 12/14/2013 12/08/2014 Inactive [SAVINGS FOR UNINSURED PATIENTS -- BIN:584454, PCN: ASPROD1, Group: AME08, ID# [id number], Process claim through [employer], for questions: . THIS IS NOT INSURANCE.] Xanax 0.25 mg tablet RxNorm: 062402 1 Tablet(s) PO HS PRN as needed 12/13/2013 01/03/2014 Inactive [SAVINGS FOR UNINSURED PATIENTS -- BIN:806125, PCN: ASPROD1, Group: AME08, ID# [id number], Process claim through [employer], for questions: . THIS IS NOT INSURANCE.] tramadol 50 mg tablet RxNorm: 442796 2 Tablet(s) PO BID 11/08/2013 04/24/2015 Inactive Xanax 0.25 mg tablet RxNorm: 670869 1 Tablet(s) PO HS PRN as needed 10/19/2013 10/18/2013 Inactive Xanax 0.25 mg tablet RxNorm: 532387 1 Tablet(s) PO HS PRN as needed 10/19/2013 12/12/2013 Inactive Carafate 1 gram tablet RxNorm: 890430 Tablet(s) PO dissolve 1 tab QID x 1 week, then TID x 1 week, then BID x 1 week 09/07/2013 02/26/2015 Inactive omeprazole 20 mg capsule,delayed release RxNorm: 479928 1 Capsule(s) PO daily 09/07/2013 09/06/2013 Inactive omeprazole 20 mg capsule,delayed release RxNorm: 350407 1 Capsule(s) PO daily 09/07/2013 02/26/2014 Inactive prednisone 10 mg tablet RxNorm: 817604 1 Tablet(s) PO 08/25/2013 12/13/2013 Inactive prednisone taper Zithromax Z-Bon 250 mg tablet RxNorm: 722677 Tablet(s) PO as directed 08/25/2013 12/13/2013 Inactive Zithromax Z-Bon 250 mg tablet RxNorm: 500595 Tablet(s) PO as directed 08/04/2013 08/24/2013 Inactive Xanax 0.25 mg tablet RxNorm: 145999 1 Tablet(s) PO HS PRN 08/01/2013 10/18/2013 Inactive Kenalog 40 mg/mL suspension for injection RxNorm: 9803425 Milliliter(s) Inj 08/01/2013 08/01/2013 Inactive tramadol 50 mg tablet RxNorm: 343878 2 Tablet(s) PO BID 05/02/2013 11/07/2013 Inactive carvedilol 25 mg tablet RxNorm: 271816 1 Tablet(s) PO BID 05/02/2013 12/13/2013 Inactive magnesium oxide 400 mg tablet RxNorm: 132333 1 Tablet(s) PO daily 05/02/2013 04/26/2014 Inactive furosemide 20 mg tablet RxNorm: 841320 2 Tablet(s) PO daily 05/02/2013 2014 Inactive amlodipine 5 mg tablet RxNorm: 806828 1 Tablet(s) PO BID 05/02/2013 04/26/2014 Inactive sertraline 100 mg tablet RxNorm: 889328 1 Tablet(s) PO BID 05/02/2013 12/13/2013 Inactive ropinirole 1 mg tablet RxNorm: 518636 1 Tablet(s) PO QPM 05/02/2013 04/26/2014 Inactive pantoprazole 40 mg tablet,delayed release RxNorm: 547728 1 Tablet(s) PO daily 05/02/2013 2014 Inactive gabapentin 600 mg tablet RxNorm: 905002 1 Tablet(s) PO BID 05/02/2013 2014 Inactive aspirin 81 mg tablet,delayed release RxNorm: 558387 1 Tablet(s) PO daily No Start Date Active ferrous fumarate 325 mg (106 mg iron) tablet RxNorm: 370913 1 Tablet(s) PO daily No Start Date 2014 Inactive amlodipine 5 mg tablet RxNorm: 183527 1 Tablet(s) PO BID No Start Date 05/01/2013 Inactive Vitamin B-12 2,500 mcg sublingual tablet RxNorm: 674572 1 Tablet(s) SL daily No Start Date 2014 Inactive Zithromax Z-Bon 250 mg tablet RxNorm: 876618 Tablet(s) PO as directed No Start Date 08/03/2013 Inactive sertraline 100 mg tablet RxNorm: 766459 1 Tablet(s) PO BID No Start Date 05/01/2013 Inactive Hytrin 1 mg tablet RxNorm: 433772 1 Tablet(s) PO BID No Start Date 12/17/2013 Inactive potassium chloride ER 10 mEq capsule,extended release RxNorm: 466182 1 Capsule(s) PO QDAY PRN No Start Date 06/17/2016 Inactive Xanax 0.25 mg tablet RxNorm: 626946 1 Tablet(s) PO HS PRN No Start Date 07/31/2013 Inactive gabapentin 600 mg tablet RxNorm: 075529 1 Tablet(s) PO BID No Start Date 05/01/2013 Inactive ropinirole 1 mg tablet RxNorm: 621919 1 Tablet(s) PO QPM No Start Date 05/01/2013 Inactive Vitamin D3 1,000 unit tablet RxNorm: 777419 2 Tablet(s) PO daily No Start Date 09/11/2015 Inactive furosemide 20 mg tablet RxNorm: 783935 1 Tablet(s) PO BID No Start Date 05/01/2013 Inactive tramadol 50 mg tablet RxNorm: 570024 2 Tablet(s) PO BID No Start Date 05/01/2013 Inactive Carafate 1 gram tablet RxNorm: 646602 Tablet(s) PO dissolve 1 tab QID x 1 week, then TID x 1 week, then BID x 1 week No Start Date 09/06/2013 Inactive pantoprazole 40 mg tablet,delayed release RxNorm: 431547 1 Tablet(s) PO daily No Start Date 05/01/2013 Inactive montelukast 10 mg tablet RxNorm: 679089 1 Tablet(s) PO QHS No Start Date 04/23/2016 Inactive magnesium oxide 400 mg tablet RxNorm: 064237 1 Tablet(s) PO daily No Start Date 05/01/2013 Inactive prednisone 10 mg tablet RxNorm: 618974 1 Tablet(s) PO No Start Date 08/24/2013 Inactive prednisone taper carvedilol 25 mg tablet RxNorm: 372358 1 Tablet(s) PO BID No Start Date 05/01/2013 Inactive baclofen 10 mg tablet RxNorm: 811722 2 Tablet(s) PO daily No Start Date 12/13/2013 Inactive Vitamin B Complex capsule RxNorm: 1 Capsule(s) PO daily No Start Date 2014 Inactive Medication Administered Medication Codes Instructions Start Date Status Kenalog 40 mg/mL suspension for injection RxNorm: 9269498 Milliliter 09/15/2016 No longer Active Kenalog 40 mg/mL suspension for injection RxNorm: 6973055 Milliliter 04/02/2014 No longer Active ceftriaxone 500 mg solution for injection RxNorm: 319669 04/02/2014 No longer Active Kenalog 40 mg/mL suspension for injection RxNorm: 2153710 Milliliter 08/01/2013 No longer Active Immunizations Vaccine [...] Code Item Item Code Result Date Mayda 556545 MAYDA (MOTREZA) SCREEN NONE DETECTED 06/25/2017 Ra Factor Gzt786 RA FACTOR <10 IU/ml 06/24/2017 D-Dimer D-DIMER [...] 28.6 pg 06/01/2017 Cbc With Differential Ord2 Bowie% 5.8 % 06/01/2017 Cbc With Differential Ord2 [...] 2.17 K/ul 06/01/2017 Cbc With Differential Ord2 Bowie ABS# 0.3 K/ul 06/01/2017 Cbc With Differential Ord2 Eos ABS# 0.1 K/ul 06/01/2017 Cbc With Differential Ord2 Baso ABS# 0.1 K/ul 06/01/2017 Comp Metabolic Uwl751 NA 137 mEq/L 06/01/2017 Comp Metabolic Hhm844 K 3.7 mEq/L 06/01/2017 Comp Metabolic Wdw439 CL 100 mEq/L 06/01/2017 Comp Metabolic Yag774 CO2 28.0 mEq/L 06/01/2017 Comp Metabolic Vgn884 ANION GAP 13 06/01/2017 Comp Metabolic Omu904 GLUCOSE 94 mg/dL 06/01/2017 Comp Metabolic Wkr392 Creat 1.3 mg/dL 06/01/2017 Comp Metabolic Niy138 eGFR 45 ml/min/1.73m2 06/01/2017 Comp Metabolic Ykf257 BUN 12 mg/dL 06/01/2017 Comp Metabolic Ycw207 B/C Ratio 9.6 Ratio 06/01/2017 Comp Metabolic Yxn516 CALCIUM 9.5 mg/dL 06/01/2017 Comp Metabolic Nsz448 ALK PHOS 77 U/L 06/01/2017 Comp Metabolic Ymd402 AST(SGOT) 17 U/L 06/01/2017 Comp Metabolic Tvk701 ALT(SGPT) 15 U/L 06/01/2017 Comp Metabolic Swf129 BILI T 0.5 mg/dL 06/01/2017 Comp Metabolic Khk923 ALBUMIN 4.4 g/dL 06/01/2017 Comp Metabolic Mfq210 TPRO 7.0 g/dL 06/01/2017 Comp Metabolic Bki442 GLOB 2.6 g/dL 06/01/2017 Comp Metabolic Wuy844 A/G Ratio 1.7 Ratio 06/01/2017 Comp Metabolic Hze140 Osmo 273 mOsmo 06/01/2017 Mayda [id number] MAYDA (MORTEZA) SCREEN NONE DETECTED 06/22/2016 C-Reactive Protein Qnt Crqnt CRP 0.3 mg/dl 06/19/2016 Sed Rate Ord21 ESR 11 mm/hr 06/19/2016 Ra Factor Bli073 RA FACTOR <10 IU/ml 06/19/2016 Sed Rate Ord21 ESR 14 mm/hr 02/25/2016 C-Reactive Protein Qnt Crqnt CRP 0.3 mg/dl 02/25/2016 Comp Metabolic Ock657 NA 136 mEq/L 02/25/2016 Comp Metabolic Shw734 K 3.9 mEq/L 02/25/2016 Comp Metabolic Ysr480 CL 103 mEq/L 02/25/2016 Comp Metabolic Rrp177 CO2 27.0 mEq/L 02/25/2016 Comp Metabolic Xta533 ANION GAP 10 02/25/2016 Comp Metabolic Wbf937 GLUCOSE 82 mg/dL 02/25/2016 Comp Metabolic Lfz743 Creat 1.3 mg/dL 02/25/2016 Comp Metabolic Jrd000 eGFR 45 ml/min/1.73m2 02/25/2016 Comp Metabolic Ins070 BUN 13 mg/dL 02/25/2016 Comp Metabolic Mhc949 B/C Ratio 10.3 Ratio 02/25/2016 Comp Metabolic Jqr101 CALCIUM 9.5 mg/dL 02/25/2016 Comp Metabolic Rsi019 ALK PHOS 70 U/L 02/25/2016 Comp Metabolic Zor697 AST(SGOT) 17 U/L 02/25/2016 Comp Metabolic Gwn324 ALT(SGPT) 13 U/L 02/25/2016 Comp Metabolic Gzr710 BILI T 0.4 mg/dL 02/25/2016 Comp Metabolic Zjc123 ALBUMIN 4.2 g/dL 02/25/2016 Comp Metabolic Wya168 TPRO 6.6 g/dL 02/25/2016 Comp Metabolic Uiv895 GLOB 2.4 g/dL 02/25/2016 Comp Metabolic Yas319 A/G Ratio 1.7 Ratio 02/25/2016 Comp Metabolic Bxu962 Osmo 271 mOsmo 02/25/2016 Cbc With Differential [...] 29.1 pg 02/25/2016 Cbc With Differential Ord2 Bowie% 6.8 % 02/25/2016 Cbc With Differential Ord2 [...] 1.62 K/ul 02/25/2016 Cbc With Differential Ord2 Bowie ABS# 0.4 K/ul 02/25/2016 Cbc With Differential Ord2 Eos ABS# 0.1 K/ul 02/25/2016 Cbc With Differential Ord2 Baso ABS# 0.0 K/ul 02/25/2016 Tsh Ord6 hTSH II 1.63 uIU/mL 02/25/2016 [place] Spotted Fever Igg/Igm [id number] BENIG[place] MT SPOTTED FEVER IGM EIA . 09/17/2015 [place] Spotted Fever Igg/Igm [id number] RMSF, IGM 0.27 index 09/17/2015 [place] Spotted Fever Igg/Igm [id number] BENIG[place] MT SPOTTED FEVER IGG EIA FLEX . 09/17/2015 [place] Spotted Fever Igg/Igm [id number] RMSF, IGG SCREEN-FLEX Negative 09/17/2015 Ehrlichia Chaffeensis Antibody Igm [id number] EHRLICHIA CHAFFEENSIS IGM < 1:16 09/16/2015 Ehrlichia Chaffeensis Antibody Igg [id number] EHRLICHIA CHAFFEENSIS IGG 1:256 09/16/2015 Lymes Disease Total Antibodies With Western Blot Reflex [id number] B. BURGDORFERI, IGG/IGM 0.10 LI 09/14/2015 Lymes Disease Total Antibodies With Western Blot Reflex [id number] 09/14/2015 Vitamin D 25 Oh Pxx3893 VITAMIN D, 25 HYDROXY 59.60 ng/mL 09/13/2015 Sed Rate Ord21 ESR 10 mm/hr 09/12/2015 Comp Metabolic Npu161 NA 139 mEq/L 09/12/2015 Comp Metabolic Xit473 K 3.8 mEq/L 09/12/2015 Comp Metabolic Srm503 CL 103 mEq/L 09/12/2015 Comp Metabolic Znc693 CO2 27.0 mEq/L 09/12/2015 Comp Metabolic Seo331 ANION GAP 13 09/12/2015 Comp Metabolic Hmw525 GLUCOSE 91 mg/dL 09/12/2015 Comp Metabolic Zzd202 Creat 1.2 mg/dL 09/12/2015 Comp Metabolic Tzw155 eGFR 47 ml/min/1.73m2 09/12/2015 Comp Metabolic Kmx740 BUN 20 mg/dL 09/12/2015 Comp Metabolic Paj839 B/C Ratio 16.3 Ratio 09/12/2015 Comp Metabolic Xry445 CALCIUM 9.3 mg/dL 09/12/2015 Comp Metabolic Ncs200 ALK PHOS 55 U/L 09/12/2015 Comp Metabolic Eti300 AST(SGOT) 19 U/L 09/12/2015 Comp Metabolic Ebf457 ALT(SGPT) 14 U/L 09/12/2015 Comp Metabolic Rxp951 BILI T 0.6 mg/dL 09/12/2015 Comp Metabolic Nbq312 ALBUMIN 4.3 g/dL 09/12/2015 Comp Metabolic Dsa500 TPRO 6.8 g/dL 09/12/2015 Comp Metabolic Vnn971 GLOB 2.5 g/dL 09/12/2015 Comp Metabolic Rek939 A/G Ratio 1.8 Ratio 09/12/2015 Comp Metabolic Rmb467 Osmo 280 mOsmo 09/12/2015 B12 Xpn914 B12 >1500.00 pg/ml 09/12/2015 Cbc With Differential [...] 28.9 pg 09/12/2015 Cbc With Differential Ord2 Bowie% 5.9 % 09/12/2015 Cbc With Differential Ord2 [...] 1.33 K/ul 09/12/2015 Cbc With Differential Ord2 Bowie ABS# 0.3 K/ul 09/12/2015 Cbc With Differential [...] Full Exam - General 1994 Neurologic coordination Jjensw-jben-hxlwif testing - left: dysmetria 05/11/2017 None Full Exam - General 1994 Neurologic coordination Yrhxry-pfna-sslkta testing - right: dysmetria 05/11/2017 None Full [...] Full Exam - General 1994 Neurologic coordination Rgfead-kson-rzjmwc testing - left: dysmetria 04/20/2016 None Full Exam - General 1994 Neurologic coordination Ugiaim-mlyq-wxuoth testing - right: dysmetria 04/20/2016 None Full [...] Full Exam - General 1994 Neurologic coordination Ogdpxt-vfvt-byvtfx testing - left: dysmetria 02/25/2016 None Full Exam - General 1994 Neurologic coordination Nqpstd-hknt-nnsxys testing - right: dysmetria 02/25/2016 None Full [...] Full Exam - General 1994 Neurologic coordination Lszfxv-ldxj-kquuni testing - left: dysmetria 01/28/2016 None Full Exam - General 1994 Neurologic coordination Oipdet-xbpx-qaistc testing - right: dysmetria 01/28/2016 None Full [...] palp - head/face Lesion: excoriation 07/16/2014 right roman catholic, redness right eyelid Full Exam - Dermatology [...] Procedure Codes Date THER/PROPH/DIAG INJ SC/IM CPT-4: 08883 09/15/2016 TRIAMCINOLONE ACET INJ NOS CPT-4: J3301 09/15/2016 ADMIN INFLUENZA VIRUS VAC CPT-4: G0008 01/08/2016 ADMIN PNEUMOCOCCAL VACCINE SNOMED CT: 25604454 CPT-4: G0009 01/08/2016 PNEUMOCOCCAL VACC 13 RIVERA IM Formatting Model/CDA Sections, Assigned to/Aliya Muñoz SNOMED CT: 41033144 CPT-4: 04678Jkuxwat 01/08/2016 FLU VACC 4 RIVERA 3 YRS PLUS IM SNOMED CT: 54060684 CPT-4: 43971 01/08/2016 THER/PROPH/DIAG INJ SC/IM CPT-4: 75083 04/02/2014 TRIAMCINOLONE ACET INJ NOS CPT-4: J3301 04/02/2014 ROCEPHIN, PER 250 MG CPT- 4: J0696 04/02/2014 TRIAMCINOLONE ACET INJ NOS CPT-4: J3301 08/01/2013 THER/PROPH/DIAG INJ SC/IM CPT-4: 24478 08/01/2013 Vital Signs Date Vital 09/26/2018 Blood Pressure 1: 124/60 Code: 8480-6 BMI: 36.9 Code: 48699-0 Heart Rate 1: 73 bpm Height: 5'5" SpO2: 95% Weight: 222 lbs 07/27/2018 Blood Pressure 1: 132/74 Code: 8480-6 BMI: 36.3 Code: 14681-2 Heart Rate 1: 73 bpm Height: 5'5" SpO2: 98% Weight: 218 lbs 01/25/2018 Blood Pressure 1: 130/68 Code: 8480-6 BMI: 34.4 Code: 50854-4 Heart Rate 1: 91 bpm Height: 5'5" SpO2: 95% Weight: 207 lbs 10/06/2017 Blood Pressure 1: 118/78 Code: 8480-6 BMI: 34.3 Code: 95330-7 Heart Rate 1: 75 bpm Height: 5'5" SpO2: 98% Weight: 206 lbs 09/27/2017 Blood Pressure 1: 136/88 Code: 8480-6 BMI: 35.4 Code: 28582-0 Heart Rate 1: 86 bpm Height: 5'5" SpO2: 98% Weight: 213 lbs 07/23/2017 Blood Pressure 1: 106/58 Code: 8480-6 BMI: 34.8 Code: 04627-0 Heart Rate 1: 70 bpm Height: 5'5" SpO2: 96% Weight: 209 lbs 06/01/2017 Blood Pressure 1: 150/96 Code: 8480-6 BMI: 34.4 Code: 90598-0 Heart Rate 1: 82 bpm Height: 5'5" SpO2: 99% Weight: 207 lbs 05/11/2017 Blood Pressure 1: 144/90 Code: 8480-6 BMI: 34.6 Code: 90688-7 Heart Rate 1: 76 bpm Height: 5'5" SpO2: 98% Weight: 208 lbs 10/30/2016 Blood Pressure 1: 172/104 Code: 8480-6 Blood Pressure 1: 158/98 Code: 8480-6 BMI: 34.7 Code: 78709-1 Heart Rate 1: 70 bpm Height: 5'5" SpO2: 97% Temperature: 36.2 (C) / 97.1 (F) Weight: 208 lbs 10 oz 04/20/2016 Blood Pressure 1: 144/86 Code: 8480-6 BMI: 34.3 Code: 14166-4 Heart Rate 1: 68 bpm Height: 5'5" SpO2: 97% Weight: 206 lbs 02/25/2016 Blood Pressure 1: 122/82 Code: 8480-6 BMI: 34.4 Code: 67898-7 Heart Rate 1: 86 bpm Height: 5'5" SpO2: 94% Weight: 207 lbs 01/28/2016 Blood Pressure 1: 128/86 Code: 8480-6 BMI: 33.3 Code: 58607-7 Heart Rate 1: 86 bpm Height: 5'5" SpO2: 96% Weight: 200 lbs 11/14/2015 Blood Pressure 1: 140/90 Code: 8480-6 Blood Pressure 1: 138/88 Code: 8480-6 BMI: 33.3 Code: 39622-8 Heart Rate 1: 98 bpm Height: 5'5" SpO2: 97% Weight: 200 lbs 10/10/2015 Blood Pressure 1: 132/80 Code: 8480-6 BMI: 33.3 Code: 70510-1 Heart Rate 1: 74 bpm Height: 5'5" SpO2: 96% Weight: 200 lbs 09/12/2015 Blood Pressure 1: 148/90 Code: 8480-6 BMI: 32.9 Code: 57092-8 Heart Rate 1: 94 bpm Height: 5'5" SpO2: 97% Weight: 198 lbs 04/09/2015 Blood Pressure 1: 160/82 Code: 8480-6 Blood Pressure 1: 130/84 Code: 8480-6 BMI: 32.4 Code: 83728-5 Heart Rate 1: 74 bpm Height: 5'5" SpO2: 95% Weight: 195 lbs 10/05/2014 Blood Pressure 1: 140/80 Code: 8480-6 BMI: 30.5 Code: 96496-8 Heart Rate 1: 79 bpm Height: 5'5" SpO2: 98% Weight: 183 lbs 09/07/2014 Blood Pressure 1: 142/96 Code: 8480-6 BMI: 32.1 Code: 33731-3 Heart Rate 1: 72 bpm Height: 5'5" SpO2: 98% Temperature: 36.5 (C) / 97.7 (F) Weight: 193 lbs 07/16/2014 Blood Pressure 1: 138/82 Code: 8480-6 BMI: 31.8 Code: 70691-6 Heart Rate 1: 76 bpm Height: 5'5" Weight: 191 lbs 04/02/2014 Blood Pressure 1: 148/90 Code: 8480-6 BMI: 33.8 Code: 35892-6 Heart Rate 1: 68 bpm Height: 5'5" Temperature: 36.9 (C) / 98.4 (F) Weight: 203 lbs 12/14/2013 Blood Pressure 1: 140/88 Code: 8480-6 BMI: 35.3 Code: 00960-6 Heart Rate 1: 91 bpm Height: 5'5" SpO2: 97% Weight: 212 lbs 08/01/2013 Blood Pressure 1: 126/68 Code: 8480-6 BMI: 35.1 Code: 24084-1 Heart Rate 1: 76 bpm Height: 5'5" Temperature: 36.7 (C) / 98.1 (F) Weight: 211 lbs 05/02/2013 Blood Pressure 1: 118/86 Code: 8480-6 BMI: 34.9 Code: 37535-0 Heart Rate 1: 76 bpm Height: 5'5" Weight: 209 lbs 8 oz 04/18/2013 Blood Pressure 1: 118/60 Code: 8480-6 BMI: 35.3 Code: 16675-6 Heart Rate 1: 68 bpm Height: 5'5" [...] data Encounters Encounter Performer Location Codes Date ([id number]) 12213 EST. PATIENT, LEVEL III Diagnosis: Low back pain[ICD10: M54.5] Diagnosis: Spinal instabilities, lumbar region[ICD10: M53.2X6] Diagnosis: Fusion of spine, lumbar region[ICD10: M43.26] Marilyn Lao MD, [facility] CPT-4: 46427 09/26/2018 ([id number]) 91802 EST. PATIENT, LEVEL IV Diagnosis: Essential (primary) hypertension[ICD10: I10] Diagnosis: Cough[ICD10: R05] Diagnosis: Chronic kidney disease, stage 3 (moderate)[ICD10: N18.3] Diagnosis: Generalized anxiety disorder[ICD10: F41.1] Marilyn Lao MD, [facility] CPT-4: 37088 07/27/2018 ([id number]) 09905 EST. PATIENT, LEVEL III Diagnosis: Essential (primary) hypertension[ICD10: I10] Marilyn Lao MD, [facility] CPT-4: 25795 01/25/2018 ([id number]) 62717 EST. PATIENT, LEVEL III Diagnosis: Nail dystrophy[ICD10: L60.3] Diagnosis: Localized edema[ICD10: R60.0] Marilyn Lao MD, [facility] CPT-4: 61864 10/06/2017 ([id number]) 35190 EST. PATIENT, LEVEL IV Diagnosis: Essential (primary) hypertension[ICD10: I10] Diagnosis: Localized edema[ICD10: R60.0] Marilyn Lao MD, [facility] CPT-4: 16659 09/27/2017 ([id number]) 55054 EST. PATIENT, LEVEL IV Diagnosis: Generalized anxiety disorder[ICD10: F41.1] Diagnosis: Essential (primary) hypertension[ICD10: I10] Diagnosis: Chronic pain syndrome[ICD10: G89.4] Noa Lao MD, [facility] CPT-4: 20560 07/23/2017 ([id number]) 89769 EST. PATIENT, LEVEL IV Diagnosis: Essential (primary) hypertension[ICD10: I10] Diagnosis: Chest pain, unspecified[ICD10: R07.9] Diagnosis: Chronic kidney disease, stage 3 (moderate)[ICD10: N18.3] Noa Lao MD, [facility] CPT-4: 58151 06/01/2017 [id number] EST. PATIENT, LEVEL IV Diagnosis: Gastro-esophageal reflux disease without esophagitis[ICD10: K21.9] Anais Lao MD, [facility] CPT-4: 04703 05/11/2017 ([id number]) 31671 EST. PATIENT, LEVEL III Diagnosis: Essential (primary) hypertension[ICD10: I10] Diagnosis: Contusion of right lower leg, initial encounter[ICD10: S80.11XA] Noa Lao MD, [facility] CPT-4: 55158 10/30/2016 ([id number]) 71265 EST. PATIENT, LEVEL IV Diagnosis: Essential (primary) hypertension[ICD10: I10] Diagnosis: Generalized anxiety disorder[ICD10: F41.1] Marilyn Lao MD, [facility] CPT-4: 43482 04/20/2016 ([id number]) 05565 EST. PATIENT, LEVEL IV Diagnosis: Essential (primary) hypertension[ICD10: I10] Diagnosis: Chronic kidney disease, stage 3 (moderate)[ICD10: N18.3] Diagnosis: Generalized anxiety disorder[ICD10: F41.1] Diagnosis: Major depressive disorder, recurrent, moderate[ICD10: F33.1] Diagnosis: Shortness of breath[ICD10: R06.02] Noa Lao MD, [facility] CPT- 4: 56855 02/25/2016 ([id number]) 83812 EST. PATIENT, LEVEL IV Diagnosis: Generalized anxiety disorder[ICD10: F41.1] Diagnosis: Major depressive disorder, recurrent, moderate[ICD10: F33.1] Diagnosis: Essential (primary) hypertension[ICD10: I10] Diagnosis: Restless legs syndrome[ICD10: G25.81] Diagnosis: Myalgia[ICD10: M79.1] Noa Lao MD, [facility] CPT-4: 59510 01/28/2016 ([id number]) 40351 EST. PATIENT, LEVEL III Diagnosis: Essential (primary) hypertension[ICD10: I10] Diagnosis: Insomnia, unspecified[ICD10: G47.00] Noa Lao MD, [facility] CPT-4: 38736 11/14/2015 ([id number]) 79991 EST. 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 CPT-4: 13982 10/10/2015 ([id number]) 32890 EST. PATIENT, LEVEL IV Diagnosis: Bitten or stung by nonvenomous insect and other nonvenomous arthropods, initial encounter[ICD10: W57.XXXA] Diagnosis: Other fatigue[ICD10: R53.83] Diagnosis: Vitamin D deficiency, unspecified[ICD10: E55.9] Diagnosis: Other vitamin B12 deficiency anemias[ICD10: D51.8] Diagnosis: Essential (primary) hypertension[ICD10: I10] Diagnosis: Iron deficiency[ICD10: E61.1] Noa Lao MD, [facility] CPT-4: 32714 09/12/2015 ([id number]) 08468 EST. PATIENT, LEVEL III Diagnosis: Essential (primary) hypertension[ICD10: I10] Diagnosis: Chronic kidney disease, stage 3 (moderate)[ICD10: N18.3] Noa Lao MD, [facility] CPT-4: 74557 04/09/2015 ([id number]) 20844 EST. PATIENT, LEVEL III Diagnosis: ESSENTIAL HYPERTENSION[ICD9: 401.9] Noa Lao MD, [facility] CPT-4: 93023 10/05/2014 ([id number]) 46510 EST. PATIENT, LEVEL IV Diagnosis: Easy bruising[ICD9: 782.9] Diagnosis: Iron deficiency anemia[ICD9: 280.9] Diagnosis: ESSENTIAL HYPERTENSION[ICD9: 401.9] Diagnosis: Chronic kidney disease, stage 3[ICD9: 585.3] Noa Lao MD, [facility] CPT-4: 96942 09/07/2014 ([id number]) 54824 EST. PATIENT, LEVEL III Diagnosis: Shingles[ICD9: 053.9] Marilyn Lao MD, [facility] CPT-4: 15746 07/16/2014 ([id number]) 09173 EST. PATIENT, LEVEL III Diagnosis: PNEUMONIA (CAP)[ICD9: 486] Diagnosis: COUGH[ICD9: 786.2] Marilyn Lao MD, [facility] CPT-4: 46427 04/02/2014 ([id number]) 58544 EST. PATIENT, LEVEL III Diagnosis: ESSENTIAL HYPERTENSION[ICD9: 401.9] Diagnosis: Rib pain on left side[ICD9: 786.50] Diagnosis: EDEMA[ICD9: 782.3] Noa Lao MD, [facility] CPT-4: 68376 12/14/2013 ([id number]) 19457 EST. PATIENT, LEVEL IV Diagnosis: ESOPHAGEAL REFLUX[ICD9: 530.81] Diagnosis: Urge incontinence[ICD9: 788.31] Diagnosis: Elbow pain, right[ICD9: 719.42] Diagnosis: Snoring[ICD9: 786.09] Marilyn Lao MD, [facility] CPT-4: 76874 08/01/2013 ([id number]) 01545 EST. PATIENT, LEVEL IV Diagnosis: ESSENTIAL HYPERTENSION[SNOMED: 71908696] Diagnosis: EDEMA[ICD9: 782.3] Diagnosis: Chronic renal insufficiency, stage III (moderate)[ICD9: 585.3] Diagnosis: HYPERLIPIDEMIA[ICD9: 272.4] Marilyn Lao MD, [facility] CPT-4: 17810 05/02/2013 ([id number]) 30769 EST. PATIENT, LEVEL IV Diagnosis: ESSENTIAL HYPERTENSION[SNOMED: 18462440] Diagnosis: Restless leg[ICD9: 333.94] Marilyn Lao MD, [facility] CPT-4: 21195 04/18/2013 Plan of Care Planned Activity Notes [...] imaging needs to be set up in [place] [facility] [place] so that her spine surgeon has easier access to the information/imaging. 09/26/2018 Patient Education: Patient Medication Summary Completed 09/26/2018 Patient Education: Back Pain Completed 09/26/2018 Care Plan: MRI LUMBAR SPINE W/O DYE LOINC : 54048-4 Pending 09/26/2018 Visit Plan: Hypertension - well [...] current medications. 07/27/2018 Appointment: [phone] [facility] [place] (15 min) Moderate 07/27/2018 Patient Education: Patient Medication Summary Completed 07/27/2018 Appointment: [facility]ilyn Lao [facility]el[phone] [facility] (15 min) Moderate 07/26/2018 Visit Plan: Hypertension - well controlled - continue with current medications, continue with no added salt diet. Pt has been encouraged to exercise daily. The pt has been advised to call the office if there are any acute concerns about change in blood pressure readings at home. 01/25/2018 Appointment: [facility]ilyn Lao [facility]el[phone] [facility] (15 min) Moderate 01/25/2018 Patient Education: Patient Medication Summary Completed 01/25/2018 Appointment: [facility]ily[facility] Lao [facility]el[phone] [facility] (15 min) Moderate 01/06/2018 Patient Education: Patient Medication Summary Completed 10/26/2017 Care Plan: Comp Metabolic Cancelled 10/26/2017 Visit Plan: Tinea/Onychodystrophy - penlac prescribed, pt did not want to take medication by mouth for treatment. Edema - improved - continue current regimen. 10/06/2017 Appointment: Marilyn Lao WPtel: [phone] [phone] (15 min) Moderate 10/06/2017 Patient Education: Patient [...] at home. 09/27/2017 Appointment: Marilyn Lao WPtel: [phone] [facility] [place] (15 min) Moderate 09/27/2017 Patient Education: [...] massage 07/23/2017 Appointment: Noa Orlando WPtel: [phone] [phone] [place] (15 min) Moderate 07/23/2017 Patient Education: Patient [...] worsens 06/01/2017 Appointment: Noa Orlando WPtel: [phone] [phone] (30 min) Complex 06/01/2017 Patient Education: Patient Medication Summary Completed 06/01/2017 Care Plan: Referral Order SNOMED-CT : 286018405 Pending 06/01/2017 Visit Plan: Esophageal Reflux - the patient has been counseled against excessive intake of caffeine, spicy foods, peppermint, and cinnamon - all of which can exacerbate esophageal reflux. The patient is to take med ications as prescribed and call the office if the symptoms are not improving. 05/11/2017 Appointment: [phone] (15 min) Moderate 05/11/2017 Patient Education: Patient [...] Completed 09/15/2016 Appointment: Marilyn Lao WPtel: [phone] [phone] (15 min) Moderate 08/19/2016 Patient Education: Patient [...] Appointment: Marilyn Lao WPtel: [facility] (30 min) Complex 04/20/2016 Patient Education: Patient Medication Summary Completed 04/20/2016 Patient Education: Obesity Completed 04/20/2016 Patient Education: Hypertension Completed 04/20/2016 Appointment: Noa Orlando WPtel: [phone] [phone] (30 min) Complex 03/16/2016 Referral: [...] for follow up. Chronic renal disease-check labs Eaudtme-fwjnuiruip-xdsfyfmr with cymbalta-continue same dose for now -may take xanax TID PRN Multiple joint pain-check labs including inflammatory markers 02/25/2016 Appointment: Noa Orlando WPtel: [phone] [phone] (30 min) Complex 02/25/2016 Patient Education: Patient Medication Summary Completed 02/25/2016 Patient Education: Obesity Completed 02/25/2016 Patient Education: Hypertension Completed 02/25/2016 Care Plan: Referral Order SNOMED-CT : 452863864 Pending 02/25/2016 Visit Plan: Anxiety/Depression - the [...] in blood pressure readings at home. Restless knw-yflugx-goqdutdx requip to twice daily-monitor symptoms Myalgias-stop pravastatin 01/28/2016 Appointment: Noa Orlando WPtel: [address] [place], [place] [phone] (30 min) [facility] 01/28/2016 Patient Education: Patient Medication Summary Completed [...] Hypertension Completed 10/10/2015 Appointment: Marilyn Lao WPtel: [phone] [facility] [place] (15 min) Moderate 10/08/2015 Visit Plan: Hypertension - well controlled - continue with current medications, continue with no added salt diet. Pt has been encouraged to exercise daily. The pt has been advised to call the office if there are any acute concerns about change in blood pressure readings at home. Iron deficiency- B12 deficiency-check labs Tick tsxd-knbpqsr-orzet tick panel 09/12/2015 Appointment: No[facility] [place] [facility] [phone] [phone] [place] (15 min) Moderate 09/12/2015 Patient Education: [...] symptoms Iron deficiency anemia-stopped oral iron per r and d lab technician in March-recheck labs HTN-elevated today-monitor twice daily [...] Completed 09/07/2014 Care Plan: COMPLETE CBC AUTOMATED [facility] : 46725-7 Ordered 09/07/2014 Visit Plan: Shingles - Herpes [...] Summary Completed 07/16/2014 Appointment: Marilyn Lao WPtel: [address] [place] [address] Follow up 04/16/2014 Appointment: Sick 04/03/2014 Visit Plan: Pneumonia - Pt has been diagnosed with pneumonia by physical exam. Antibiotics started. The pt is aware of the diagnosis and the need for acute treatment of this illness. 04/02/2014 Patient Education: Patient Medication Summary Completed 04/02/2014 Appointment: Marilyn Lao WPtel: [address] [place] [address] Sick 12/27/2013 Patient Education: Patient Medication Summary [...] further attempt to reduce peripheral edema. Night owldxv-lrzthlq-xgnug labs 12/14/2013 Appointment: Follow up 12/14/2013 Patient Education: Patient Medication Summary Completed 12/14/2013 Patient Education: Hypertension Completed 12/14/2013 Appointment: Noa Orlando WPtel: [address] [place], [place] [phone] Sick 12/01/2013 Appointment: Tashia Marilyn WPtel: [address] [place], [place] [phone] Sick 11/30/2013 Visit Plan: Allergies - chronic [...] monitor symptoms. 08/01/2013 Appointment: Marilyn Lao WPtel: [address] [place], [place] [phone] Follow up 08/01/2013 Patient Education: Patient Medication [...] able. 05/02/2013 Appointment: Marilyn Lao WPtel: [phone] [phone] Follow up 05/02/2013 Patient Education: Patient Medication [...] orange juice. 04/18/2013 Appointment: Marily[facility] Lao [facility]Ptel: [phone] New Patient 04/18/2013 Patient Education: Patient Medication Summary Completed 04/18/2013 Patient Education: Hypertension Completed 04/18/2013 Referral: Ta Santacruz Referral Appointment Requested Referral: Ta Santacruz Referral Appointment Requested Instructions Comment INCREASE REQUIP TO TWICE DAILY STOP ZOLOFT [...] in blood pressure readings at home. Restless aty-rjfbgj-dlmvhjjh requip to twice daily-monitor symptoms Myalgias-stop pravastatin INCREASE XANAX TO THREE TIMES DAILY NEEDED [...] for follow up. Chronic renal disease-check labs Nisokem-hiphskchqn-mxprcdxw with cymbalta-continue same dose for now -may take xanax TID PRN Multiple joint pain-check labs including inflammatory markers . Esophageal Reflux - the patient has been counseled against excessive intake of caffeine, spicy foods, peppermint, and cinnamon - all of which can exacerbate esophageal reflux. The patient is to take medications as prescribed and call the office if the symptoms are not improving. Restless Leg syndrome - pt is to [...] take her iron with orange juice. . Hypertension - well controlled - continue [...] at home. Iron deficiency-B12 deficiency-check labs Tick siqn-alqlxfw-ltabk tick panel PATIENT IS TO CHECK BLOOD PRESSURE AND [...] s/s of infection or other concerns . T[facility]odyst[facility], pt did not want to take medication by mouth for treatment. Edema - improved - continue current regimen. . Hypertension - well controlled - continue [...] in blood pressure readings at home. . Shingles - Herpes Zoster - acute [...] pt is to be considered contagious. . 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 stop the amlodipine - it will take [...] change in blood pressure readings at home. HOLD ASPIRIN X1 WEEK CHECK BLOOD PRESSURE AND PULSE TWICE DAILY X 1 WEEK AND CALL WITH READINGS . Easy bruising-hold aspirin x 1 week-monitor symptoms Iron deficiency anemia-stopped oral iron per r and d lab technician in March-recheck labs HTN-elevated today-monitor twice daily [...] pt is to call for acute concerns. . Hypertension - well controlled - continue [...] III - monitor labs/adjust medications as able. get labs done one week before next [...] situational exposure. No change in current medications. doxycycline 100mg twice daily x 2 weeks [...] further attempt to reduce peripheral edema. Night ricgxm-tzbqsvb-akmcy labs
--- OUTSIDE RECORDS SUMMARY | 2018-11-04 15:36 | XMS REPORT | CCD ---
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 08/01/2013 Employment Unknown Retired doing as needed working for the [employer]. 05/02/2013 Marital status Unknown 04/18/[address]: 042303177 Never drinks alcohol 04/18/2013 Has the patient ever used illegal drugs? Unknown Has never used illegal drugs 04/18/2013 Allergies, Adverse Reactions, Alerts Allergies, Adverse Reactions, Alerts data not found Past Medical History Illness Codes Condition Status Onset Date Resolved Date Allergic rhinitis, unspecified ICD-9: 477.9 ICD-10: J30.9 Active 09/15/2016 Unknown Pain in left hand ICD-9: 729.5 ICD-10: M79.642 Active 06/19/2016 Unknown Pain in right hand ICD- 9: 729.5 ICD-10: M79.641 Active 06/19/2016 Unknown Essential (primary) hypertension ICD-9: 401.9 ICD-10: I10 Active 02/24/2016 Unknown Generalized anxiety disorder ICD-9: 308.0 ICD-10: F41.1 Active 02/24/2016 Unknown Chronic kidney disease, stage 3 (moderate) ICD-9: 585.3 ICD-10: N18.3 Active 02/24/2016 Unknown Major depressive disorder, recurrent, moderate ICD-9: [...] Problems Condition Codes Effective Dates Condition Status Allergic rhinitis, unspecified ICD-9: 477.9 ICD-10: J30.9 09/15/2016 Active Pain in left hand ICD-9: 729.5 ICD-10: M79.642 06/19/2016 Active Pain in right hand ICD- 9: 729.5 ICD-10: M79.641 06/19/2016 Active Essential (primary) hypertension ICD-9: 401.9 ICD-10: I10 02/24/2016 Active Generalized anxiety disorder ICD-9: 308.0 ICD-10: F41.1 02/24/2016 Active Chronic kidney disease, stage 3 (moderate) ICD-9: 585.3 ICD-10: N18.3 02/24/2016 Active Major depressive disorder, recurrent, moderate ICD-9: [...] Start Date Stop Date Status Fill Instructions Xanax 0.25 mg tablet RxNorm: 080489 1 Tablet(s) PO TID PRN as needed 10/08/2016 12/06/2016 Active NEED TO GIVE #90 WITH NEXT REFILL Kenalog 40 mg/mL suspension for injection RxNorm: 9490215 Milliliter(s) Inj 09/15/2016 09/15/2016 Inactive tramadol 50 mg tablet RxNorm: 537037 Tablet(s) TAKE 2 TABLETS BY MOUTH TWICE DAILY 08/18/2016 02/13/2017 Active Generic For:ULTRAM 50 MG TABLET N O T I C E Last quantity doesn't match original quantity(Response to an electronic controlled substance refill request - RxReferenceNumber: [id number]) potassium chloride ER 10 mEq capsule,extended release RxNorm: 223870 TAKE ONE CAPSULE BY MOUTH DAILY NEEDED 08/03/2016 01/29/2017 Active furosemide 20 mg tablet RxNorm: 935267 1 Tablet(s) PO daily as needed for swelling 06/18/2016 06/12/2017 Active 2 daily x 1 week then daily potassium chloride ER 10 mEq capsule,extended release RxNorm: 283534 1 Capsule(s) PO QDAY PRN 06/18/2016 08/02/2016 Inactive Carafate 1 gram tablet RxNorm: 984715 1 Tablet(s) PO daily 04/24/2016 04/18/2017 Active Cymbalta 60 mg capsule,delayed release RxNorm: 625002 1 Capsule(s) PO daily 04/24/2016 10/20/2016 Active montelukast 10 mg tablet RxNorm: 634325 1 Tablet(s) PO QHS 04/24/2016 04/18/2017 Active omeprazole 20 mg capsule,delayed release RxNorm: 761041 Capsule(s) 1 Capsule(s) PO daily 04/24/2016 04/18/2017 Active ropinirole 1 mg tablet RxNorm: 307401 2 Tablet(s) PO QHS 04/24/2016 04/18/2017 Active labetalol 100 mg tablet RxNorm: 611606 1 Tablet(s) PO BID 04/24/2016 04/18/2017 Active amlodipine 5 mg tablet RxNorm: 035285 Tablet(s) TAKE 1 TABLET BY MOUTH TWICE DAILY 04/24/2016 04/18/2017 Active Transferring from [facility] furosemide 20 mg tablet RxNorm: 905909 1 Tablet(s) PO daily as needed for swelling 04/24/2016 06/17/2016 Inactive Xanax 0.25 mg tablet RxNorm: 052883 1 Tablet(s) PO TID PRN as needed 02/25/2016 03/25/2016 Inactive NEED TO GIVE #90 WITH NEXT REFILL Xanax 0.25 mg tablet RxNorm: 690567 1 Tablet(s) PO BID PRN as needed 02/19/2016 02/24/2016 Inactive [SAVINGS FOR UNINSURED PATIENTS -- BIN:340599, PCN: ASPROD1, Group: [id number], ID# [id number], Process claim through [employer], for questions: . THIS IS NOT INSURANCE.] Cymbalta 60 mg capsule,delayed release RxNorm: 210325 1 Capsule(s) PO daily 01/28/2016 04/23/2016 Inactive ropinirole 1 mg tablet RxNorm: 589679 1 Tablet(s) PO BID TAKE 1 TABLET BY MOUTH DAILY EVERY NIGHT 01/28/2016 04/23/2016 Inactive Generic For:REQUIP 1 MG TABLET tramadol 50 mg tablet RxNorm: 869625 Tablet(s) TAKE 2 TABLETS BY MOUTH TWICE DAILY 01/16/2016 07/13/2016 Inactive Generic For:ULTRAM 50 MG TABLET N O T I C E Last quantity doesn't match original quantity(Response to an electronic controlled substance refill request - RxReferenceNumber: [id number]) omeprazole 20 mg capsule,delayed release RxNorm: 603102 1 Tablet(s) PO daily 1 Capsule(s) PO daily 12/11/2015 04/23/2016 Inactive pravastatin 10 mg tablet RxNorm: 983785 1 Tablet(s) PO QHS TAKE 1 TABLET BY MOUTH EVERY NIGHT 11/28/2015 01/27/2016 Inactive Generic For:PRAVACHOL 10 MG TABLET furosemide 20 mg tablet RxNorm: 560714 1 Tablet(s) PO daily as needed for swelling 11/12/2015 04/23/2016 Inactive pravastatin 10 mg tablet RxNorm: 900734 1 Tablet(s) PO QHS TAKE 1 TABLET BY MOUTH EVERY NIGHT 11/07/2015 11/27/2015 Inactive Generic For:PRAVACHOL 10 MG TABLET Xanax 0.25 mg tablet RxNorm: 692872 1 Tablet(s) PO BID PRN as needed 10/28/2015 01/25/2016 Inactive [SAVINGS FOR UNINSURED PATIENTS -- BIN:122130, PCN: ASPROD1, Group: [id number], ID# [id number], Process claim through [employer], for questions: . THIS IS NOT INSURANCE.] Viberzi 75 mg tablet RxNorm: 9091481 1 Tablet(s) PO BID 10/10/2015 10/10/2015 Inactive doxycycline hyclate 100 mg tablet RxNorm: 652092 1 Tablet(s) PO BID 10/10/2015 10/23/2015 Inactive Vitamins B Complex capsule RxNorm: 1 Capsule(s) PO daily 09/12/2015 No Stop Date Active Vitamin D3 1,000 unit tablet RxNorm: 725948 3-4 Tablet(s) PO daily 09/12/2015 No Stop Date Active Augmentin 500 mg-125 mg tablet RxNorm: 244170 1 Tablet(s) PO BID 07/09/2015 2015 Inactive probiotic one bid x 7 days Augmentin 500 mg-125 mg tablet RxNorm: 588564 1 Tablet(s) PO BID 07/09/2015 07/08/2015 Inactive Xanax 0.25 mg tablet RxNorm: 328529 1 Tablet(s) PO BID PRN as needed 07/01/2015 09/28/2015 Inactive [SAVINGS FOR UNINSURED PATIENTS -- BIN:560488, PCN: ASPROD1, Group: [id number], ID# [id number], Process claim through [employer], for questions: . THIS IS NOT INSURANCE.] sertraline 100 mg tablet RxNorm: 966114 TAKE 1 TABLET BY MOUTH TWICE DAILY 07/01/2015 01/27/2016 Inactive Generic For:*ZOLOFT 100MG TABLET N O T I C E Last quantity doesn't match original quantity amlodipine 5 mg tablet RxNorm: 115557 TAKE 1 TABLET BY MOUTH TWICE DAILY 06/26/2015 04/23/2016 Inactive Generic For:NORVASC 5 MG TABLET N O T I C E Last quantity doesn't match original quantity amlodipine 5 mg tablet RxNorm: 932522 Tablet(s) 1 Tablet(s) PO BID 06/25/2015 06/25/2015 Inactive ropinirole 1 mg tablet RxNorm: 697984 TAKE 1 TABLET BY MOUTH DAILY EVERY NIGHT 05/22/2015 01/27/2016 Inactive Generic For:REQUIP 1 MG TABLET ropinirole 1 mg tablet RxNorm: 210671 Tablet(s) 1 Tablet(s) PO QPM 05/22/2015 05/21/2015 Inactive pravastatin 10 mg tablet RxNorm: 993231 TAKE 1 TABLET BY MOUTH EVERY NIGHT 05/14/2015 11/06/2015 Inactive Generic For:PRAVACHOL 10 MG TABLET tramadol 50 mg tablet RxNorm: 424355 2 Tablet(s) PO BID 04/25/2015 01/18/2016 Inactive labetalol 100 mg tablet RxNorm: 772477 1 Tablet(s) PO BID 04/09/2015 04/23/2016 Inactive omeprazole 20 mg capsule,delayed release RxNorm: 166755 1 Tablet(s) PO daily 1 Capsule(s) PO daily 03/20/2015 12/10/2015 Inactive Carafate 1 gram tablet RxNorm: 834144 Tablet(s) PO UD 4 times daily x 1 week and then PRN 02/27/2015 02/21/2016 Inactive Xanax 0.25 mg tablet RxNorm: 648940 1 Tablet(s) PO BID PRN as needed 02/08/2015 06/06/2015 Inactive [SAVINGS FOR UNINSURED PATIENTS -- BIN:930722, PCN: ASPROD1, Group: AME08, ID# [id number], Process claim through [employer], for questions: . THIS IS NOT INSURANCE.] furosemide 20 mg tablet RxNorm: 129809 1 Tablet(s) PO daily as needed for swelling 10/25/2014 02/21/2015 Inactive ok to fill by Dr. Franklin 10-25-14 Xanax 0.25 mg tablet RxNorm: 346012 1 Tablet(s) PO BID PRN as needed 09/25/2014 01/21/2015 Inactive [SAVINGS FOR UNINSURED PATIENTS -- BIN:680446, PCN: ASPROD1, Group: [id number], ID# [id number], Process claim through [employer], for questions: . THIS IS NOT INSURANCE.] pravastatin 10 mg tablet RxNorm: 000557 TAKE 1 TABLET BY MOUTH EVERY NIGHT 09/06/2014 04/03/2015 Inactive Generic For:PRAVACHOL 10 MG TABLET tramadol 50 mg tablet RxNorm: 357468 TAKE 2 TABLETS BY MOUTH TWICE DAILY 08/02/2014 01/15/2016 Inactive Generic For:ULTRAM 50 MG TABLET N O T I C E Last quantity doesn't match original quantity(Response to an electronic controlled substance refill request - RxReferenceNumber: [id number]) tramadol 50 mg tablet RxNorm: 551002 2 Tablet(s) PO BID 08/01/2014 08/02/2014 Inactive acyclovir 400 mg tablet RxNorm: 538978 2 Tablet(s) PO QID 07/16/2014 07/25/2014 Inactive sertraline 100 mg tablet RxNorm: 243725 1 Tablet(s) PO BID 1 Tablet(s) PO BID 06/13/2014 12/09/2014 Inactive sertraline 100 mg tablet RxNorm: 296223 1 Tablet(s) PO BID 06/13/2014 06/12/2014 Inactive magnesium oxide 400 mg tablet RxNorm: 382516 1 Tablet(s) PO daily 05/25/2014 2014 Inactive ropinirole 1 mg tablet RxNorm: 499199 1 Tablet(s) PO QPM 05/25/2014 05/19/2015 Inactive amlodipine 5 mg tablet RxNorm: 354196 1 Tablet(s) PO BID 05/25/2014 05/19/2015 Inactive prednisone 10 mg tablets in a dose pack RxNorm: 265473 1 Tablet(s) PO UD 04/06/2014 04/10/2014 Inactive 6-5-4-3-2-1 Xanax 0.25 mg tablet RxNorm: 537183 1 Tablet(s) PO BID PRN as needed 04/04/2014 07/02/2014 Inactive [SAVINGS FOR UNINSURED PATIENTS -- BIN:130637, PCN: ASPROD1, Group: AME08, ID# [id number], Process claim through [employer], for questions: . THIS IS NOT INSURANCE.] prednisone 20 mg tablet RxNorm: 892402 3 Tablet(s) PO daily 04/02/2014 04/05/2014 Inactive [SAVINGS FOR UNINSURED PATIENTS -- BIN:848271, PCN: ASPROD1, Group: AME08, ID# [id number], Process claim through [employer], for questions: . THIS IS NOT INSURANCE.] cefdinir 300 mg capsule RxNorm: 114908 1 Capsule(s) PO BID 04/02/2014 04/11/2014 Inactive [SAVINGS FOR UNINSURED PATIENTS -- BIN:717923, PCN: ASPROD1, Group: AME08, ID# [id number], Process claim through [employer], for questions: . THIS IS NOT INSURANCE.] Kenalog 40 mg/mL suspension for injection RxNorm: 0166223 Milliliter(s) Inj 04/02/2014 04/02/2014 Inactive [SAVINGS FOR UNINSURED PATIENTS -- BIN:923054, PCN: ASPROD1, Group: AME08, ID# [id number], Process claim through [employer], for questions: . THIS IS NOT INSURANCE.] ceftriaxone 500 mg solution for injection RxNorm: 881409 Inj 04/02/2014 04/02/2014 Inactive [SAVINGS FOR UNINSURED PATIENTS -- BIN:118555, PCN: ASPROD1, Group: AME08, ID# [id number], Process claim through [employer], for questions: . THIS IS NOT INSURANCE.] albuterol sulfate 2.5 mg/0.5 mL solution for nebulization RxNorm: 013508 1 treatment INH QID and as needed for dyspnea 04/02/2014 05/31/2014 Inactive [SAVINGS FOR UNINSURED PATIENTS -- BIN:330888, PCN: ASPROD1, Group: AME08, ID# [id number], Process claim through [employer], for questions: . THIS IS NOT INSURANCE.] azithromycin 500 mg tablet RxNorm: 440789 1 Tablet(s) PO daily 04/02/2014 04/06/2014 Inactive [SAVINGS FOR UNINSURED PATIENTS -- BIN:578637, PCN: ASPROD1, Group: AME08, ID# [id number], Process claim through [employer], for questions: . THIS IS NOT INSURANCE.] omeprazole 20 mg capsule,delayed release RxNorm: 749372 1 Tablet(s) PO daily 1 Capsule(s) PO daily 02/26/2014 06/25/2014 Inactive Xanax 0.25 mg tablet RxNorm: 581136 1 Tablet(s) PO BID PRN as needed 02/01/2014 04/03/2014 Inactive [SAVINGS FOR UNINSURED PATIENTS -- BIN:168684, PCN: ASPROD1, Group: AME08, ID# [id number], Process claim through [employer], for questions: . THIS IS NOT INSURANCE.] Xanax 0.25 mg tablet RxNorm: 731783 1 Tablet(s) PO HS PRN as needed 01/04/2014 01/31/2014 Inactive [SAVINGS FOR UNINSURED PATIENTS -- BIN:589910, PCN: ASPROD1, Group: AME08, ID# [id number], Process claim through [employer], for questions: . THIS IS NOT INSURANCE.] pravastatin 10 mg tablet RxNorm: 951180 1 Tablet(s) PO QHS 12/21/2013 12/20/2013 Inactive pravastatin 10 mg tablet RxNorm: 172866 1 Tablet(s) PO QHS 12/21/2013 07/18/2014 Inactive [SAVINGS FOR UNINSURED PATIENTS -- BIN:803833, PCN: ASPROD1, Group: AME08, ID# [id number], Process claim through [employer], for questions: . THIS IS NOT INSURANCE.] Hytrin 1 mg tablet RxNorm: 767267 1 Tablet(s) PO BID 12/21/2013 04/08/2015 Inactive [SAVINGS FOR UNINSURED PATIENTS -- BIN:453195, PCN: ASPROD1, Group: AME08, ID# [id number], Process claim through [employer], for questions: . THIS IS NOT INSURANCE.] Hytrin 1 mg tablet RxNorm: 523267 1 Tablet(s) PO daily 12/18/2013 12/20/2013 Inactive [SAVINGS FOR UNINSURED PATIENTS -- BIN:347811, PCN: ASPROD1, Group: AME08, ID# [id number], Process claim through [employer], for questions: . THIS IS NOT INSURANCE.] sertraline 100 mg tablet RxNorm: 947701 1 Tablet(s) PO QHS 12/14/2013 12/08/2014 Inactive [SAVINGS FOR UNINSURED PATIENTS -- BIN:661232, PCN: ASPROD1, Group: AME08, ID# [id number], Process claim through [employer], for questions: . THIS IS NOT INSURANCE.] Xanax 0.25 mg tablet RxNorm: 241142 1 Tablet(s) PO HS PRN as needed 12/13/2013 01/03/2014 Inactive [SAVINGS FOR UNINSURED PATIENTS -- BIN:241591, PCN: ASPROD1, Group: AME08, ID# [id number], Process claim through [employer], for questions: . THIS IS NOT INSURANCE.] tramadol 50 mg tablet RxNorm: 078284 2 Tablet(s) PO BID 11/08/2013 04/24/2015 Inactive Xanax 0.25 mg tablet RxNorm: 879149 1 Tablet(s) PO HS PRN as needed 10/19/2013 10/18/2013 Inactive Xanax 0.25 mg tablet RxNorm: 800338 1 Tablet(s) PO HS PRN as needed 10/19/2013 12/12/2013 Inactive Carafate 1 gram tablet RxNorm: 050175 Tablet(s) PO dissolve 1 tab QID x 1 week, then TID x 1 week, then BID x 1 week 09/07/2013 02/26/2015 Inactive omeprazole 20 mg capsule,delayed release RxNorm: 485562 1 Capsule(s) PO daily 09/07/2013 09/06/2013 Inactive omeprazole 20 mg capsule,delayed release RxNorm: 687822 1 Capsule(s) PO daily 09/07/2013 02/26/2014 Inactive prednisone 10 mg tablet RxNorm: 171172 1 Tablet(s) PO 08/25/2013 12/13/2013 Inactive prednisone taper Zithromax Z-Bon 250 mg tablet RxNorm: 820907 Tablet(s) PO as directed 08/25/2013 12/13/2013 Inactive Zithromax Z-Bon 250 mg tablet RxNorm: 909419 Tablet(s) PO as directed 08/04/2013 08/24/2013 Inactive Xanax 0.25 mg tablet RxNorm: 318031 1 Tablet(s) PO HS PRN 08/01/2013 10/18/2013 Inactive Kenalog 40 mg/mL suspension for injection RxNorm: 3021493 Milliliter(s) Inj 08/01/2013 08/01/2013 Inactive tramadol 50 mg tablet RxNorm: 946036 2 Tablet(s) PO BID 05/02/2013 11/07/2013 Inactive carvedilol 25 mg tablet RxNorm: 747576 1 Tablet(s) PO BID 05/02/2013 12/13/2013 Inactive magnesium oxide 400 mg tablet RxNorm: 215558 1 Tablet(s) PO daily 05/02/2013 04/26/2014 Inactive furosemide 20 mg tablet RxNorm: 069938 2 Tablet(s) PO daily 05/02/2013 2014 Inactive amlodipine 5 mg tablet RxNorm: 778563 1 Tablet(s) PO BID 05/02/2013 04/26/2014 Inactive sertraline 100 mg tablet RxNorm: 872965 1 Tablet(s) PO BID 05/02/2013 12/13/2013 Inactive ropinirole 1 mg tablet RxNorm: 785785 1 Tablet(s) PO QPM 05/02/2013 04/26/2014 Inactive pantoprazole 40 mg tablet,delayed release RxNorm: 973191 1 Tablet(s) PO daily 05/02/2013 2014 Inactive gabapentin 600 mg tablet RxNorm: 866057 1 Tablet(s) PO BID 05/02/2013 2014 Inactive ferrous fumarate 325 mg (106 mg iron) tablet RxNorm: 088759 1 Tablet(s) PO daily No Start Date 2014 Inactive amlodipine 5 mg tablet RxNorm: 004805 1 Tablet(s) PO BID No Start Date 05/01/2013 Inactive Vitamin B-12 2,500 mcg sublingual tablet RxNorm: 230585 1 Tablet(s) SL daily No Start Date 2014 Inactive Zithromax Z-Bon 250 mg tablet RxNorm: 174330 Tablet(s) PO as directed No Start Date 08/03/2013 Inactive sertraline 100 mg tablet RxNorm: 937246 1 Tablet(s) PO BID No Start Date 05/01/2013 Inactive Hytrin 1 mg tablet RxNorm: 842285 1 Tablet(s) PO BID No Start Date 12/17/2013 Inactive potassium chloride ER 10 mEq capsule,extended release RxNorm: 353342 1 Capsule(s) PO QDAY PRN No Start Date 06/17/2016 Inactive Xanax 0.25 mg tablet RxNorm: 597818 1 Tablet(s) PO HS PRN No Start Date 07/31/2013 Inactive gabapentin 600 mg tablet RxNorm: 664518 1 Tablet(s) PO BID No Start Date 05/01/2013 Inactive ropinirole 1 mg tablet RxNorm: 418593 1 Tablet(s) PO QPM No Start Date 05/01/2013 Inactive Vitamin D3 1,000 unit tablet RxNorm: 671407 2 Tablet(s) PO daily No Start Date 09/11/2015 Inactive furosemide 20 mg tablet RxNorm: 243444 1 Tablet(s) PO BID No Start Date 05/01/2013 Inactive tramadol 50 mg tablet RxNorm: 981536 2 Tablet(s) PO BID No Start Date 05/01/2013 Inactive Carafate 1 gram tablet RxNorm: 494940 Tablet(s) PO dissolve 1 tab QID x 1 week, then TID x 1 week, then BID x 1 week No Start Date 09/06/2013 Inactive pantoprazole 40 mg tablet,delayed release RxNorm: 924684 1 Tablet(s) PO daily No Start Date 05/01/2013 Inactive montelukast 10 mg tablet RxNorm: 621685 1 Tablet(s) PO QHS No Start Date 04/23/2016 Inactive magnesium oxide 400 mg tablet RxNorm: 058255 1 Tablet(s) PO daily No Start Date 05/01/2013 Inactive prednisone 10 mg tablet RxNorm: 903455 1 Tablet(s) PO No Start Date 08/24/2013 Inactive prednisone taper carvedilol 25 mg tablet RxNorm: 193934 1 Tablet(s) PO BID No Start Date 05/01/2013 Inactive baclofen 10 mg tablet RxNorm: 431082 2 Tablet(s) PO daily No Start Date 12/13/2013 Inactive Vitamin B Complex capsule RxNorm: 1 Capsule(s) PO daily No Start Date 2014 Inactive Medication Administered Medication Codes Instructions Start Date Status Kenalog 40 mg/mL suspension for injection RxNorm: 4606075 Milliliter 09/15/2016 No longer Active Kenalog 40 mg/mL suspension for injection RxNorm: 2665050 Milliliter 04/02/2014 No longer Active ceftriaxone 500 mg solution for injection RxNorm: 172547 04/02/2014 No longer Active Kenalog 40 mg/mL suspension for injection RxNorm: 2907585 Milliliter 08/01/2013 No longer Active Immunizations Vaccine Codes Date Status Influenza CVX: 141 01/08/2016 completed Pneumococcal (Adult) CVX: 133 01/08/2016 completed Influenza CVX: 141 01/26/2013 completed Pneumococcal CVX: 33 02/26/2012 completed Tetanus, Diptheria, Pertussis CVX: 113 02/26/2012 completed Tetanus/Diptheria CVX: 113 02/26/2012 completed Assessments Condition Codes Effective Dates Allergic rhinitis, unspecified ICD-10: J30.9 ICD-9: 477.9 09/15/2016 Pain in left hand ICD-10: M79.642 ICD-9: 729.5 06/19/2016 Pain in right hand ICD-10: M79.641 ICD-9: 729.5 06/19/2016 Essential (primary) hypertension ICD-10: I10 ICD-9: 401.9 04/20/2016 Generalized anxiety disorder ICD-10: F41.1 ICD-9: 308.0 04/20/2016 Major depressive disorder, recurrent, moderate ICD-10: F33.1 ICD-9: 296.32 02/25/2016 Shortness of breath ICD-10: R06.02 ICD-9: 786.05 02/25/2016 Chronic kidney disease, stage 3 (moderate) ICD-10: N18.3 ICD-9: 585.3 02/25/2016 Restless legs syndrome ICD-10: G25.81 ICD-9: [...] 08/01/2013 Elbow pain, right ICD-9: 719.42 08/01/2013 ESOPHAGEAL REFLUX ICD-9: 530.81 08/01/2013 Snoring ICD-9: 786.09 08/01/2013 Urge incontinence ICD-9: 788.31 08/01/2013 HYPERLIPIDEMIA ICD-9: 272.4 05/02/2013 Restless leg ICD-9: 333.94 04/18/2013 Reason For Visit Reason For Visit Effective Dates Notes anxiety 04/20/2016 anxiety 02/25/2016 anxiety 01/28/2016 vaccination against influenza 01/08/2016 fatigue 11/14/2015 fatigue 10/10/2015 fatigue 09/12/2015 blood pressure followup 04/09/2015 shortness of breath 10/05/2014 fatigue 09/07/2014 eyelid pain 07/16/2014 cough 04/02/2014 101.5 Wednesday diaphoresis 12/14/2013 cough 08/01/2013 hypertension 05/02/2013 hypertension 04/18/2013 Results Observation Observation Code Item Item Code Result Date Mayda 509267 MAYDA (MORTEZA) SCREEN NONE DETECTED 06/22/2016 C-Reactive Protein Qnt Crqnt CRP 0.3 mg/dl 06/19/2016 Sed Rate Ord21 ESR 11 mm/hr 06/19/2016 Ra Factor Hau471 RA FACTOR <10 IU/ml 06/19/2016 Sed Rate Ord21 ESR 14 mm/hr 02/25/2016 C-Reactive Protein Qnt Crqnt CRP 0.3 mg/dl 02/25/2016 Comp Metabolic Psq014 NA 136 mEq/L 02/25/2016 Comp Metabolic Zzw667 K 3.9 mEq/L 02/25/2016 Comp Metabolic Vqs525 CL 103 mEq/L 02/25/2016 Comp Metabolic Fnl303 CO2 27.0 mEq/L 02/25/2016 Comp Metabolic Tjj955 ANION GAP 10 02/25/2016 Comp Metabolic Zen575 GLUCOSE 82 mg/dL 02/25/2016 Comp Metabolic Nlo061 Creat 1.3 mg/dL 02/25/2016 Comp Metabolic Utw393 eGFR 45 ml/min/1.73m2 02/25/2016 Comp Metabolic Kgy403 BUN 13 mg/dL 02/25/2016 Comp Metabolic Ieg532 B/C Ratio 10.3 Ratio 02/25/2016 Comp Metabolic Gfi448 CALCIUM 9.5 mg/dL 02/25/2016 Comp Metabolic Zsk430 ALK PHOS 70 U/L 02/25/2016 Comp Metabolic Ufp228 AST(SGOT) 17 U/L 02/25/2016 Comp Metabolic Vpe812 ALT(SGPT) 13 U/L 02/25/2016 Comp Metabolic Swy176 BILI T 0.4 mg/dL 02/25/2016 Comp Metabolic Jgy758 ALBUMIN 4.2 g/dL 02/25/2016 Comp Metabolic Icc688 TPRO 6.6 g/dL 02/25/2016 Comp Metabolic Nwc906 GLOB 2.4 g/dL 02/25/2016 Comp Metabolic Xgf202 A/G Ratio 1.7 Ratio 02/25/2016 Comp Metabolic Hmd153 Osmo 271 mOsmo 02/25/2016 Cbc With Differential Ord2 WBC 5.16 K/ul 02/25/2016 Cbc With Differential Ord2 RBC 4.50 M/ul 02/25/2016 Cbc With Differential Ord2 HGB 13.1 g/dl 02/25/2016 Cbc With Differential Ord2 Neut% 59.3 % 02/25/2016 Cbc With Differential Ord2 HCT 38.9 % 02/25/2016 Cbc With Differential Ord2 Lymph% 31.4 % 02/25/2016 Cbc With Differential Ord2 MCV 86.4 fl 02/25/2016 Cbc With Differential Ord2 [place]% 6.8 % 02/25/2016 Cbc With Differential Ord2 [...] 1.62 K/ul 02/25/2016 Cbc With Differential Ord2 [place] ABS# 0.4 K/ul 02/25/2016 Cbc With Differential Ord2 Eos ABS# 0.1 K/ul 02/25/2016 Cbc With Differential Ord2 Baso ABS# 0.0 K/ul 02/25/2016 Tsh Ord6 hTSH II 1.63 uIU/mL 02/25/2016 [place] Spotted Fever Igg/Igm 268285 BENIGNO MT SPOTTED FEVER IGM EIA . 09/17/2015 [place] Spotted Fever Igg/Igm 255049 RMSF, IGM 0.27 index 09/17/2015 [place] Spotted Fever Igg/Igm 229739 BENIGNO MT SPOTTED FEVER IGG EIA FLEX . 09/17/2015 [place] Spotted Fever Igg/Igm 102318 RMSF, IGG SCREEN-FLEX Negative 09/17/2015 Ehrlichia Chaffeensis Antibody Igm 410956 EHRLICHIA CHAFFEENSIS IGM < 1:16 09/16/2015 Ehrlichia Chaffeensis Antibody Igg 409448 EHRLICHIA CHAFFEENSIS IGG 1:256 09/16/2015 Lymes Disease Total Antibodies With Western Blot Reflex [id number] B. BURGDORFERI, IGG/IGM 0.10 LI 09/14/2015 Lymes Disease Total Antibodies With Western Blot Reflex [id number] 09/14/2015 Vitamin D 25 Oh Mrg6153 VITAMIN D, 25 HYDROXY 59.60 ng/mL 09/13/2015 Sed Rate Ord21 ESR 10 mm/hr 09/12/2015 Comp Metabolic Ohe261 NA 139 mEq/L 09/12/2015 Comp Metabolic Rcz949 K 3.8 mEq/L 09/12/2015 Comp Metabolic Alf465 CL 103 mEq/L 09/12/2015 Comp Metabolic Sia439 CO2 27.0 mEq/L 09/12/2015 Comp Metabolic Lni610 ANION GAP 13 09/12/2015 Comp Metabolic Aee194 GLUCOSE 91 mg/dL 09/12/2015 Comp Metabolic Obu407 Creat 1.2 mg/dL 09/12/2015 Comp Metabolic Deb939 eGFR 47 ml/min/1.73m2 09/12/2015 Comp Metabolic Bcy978 BUN 20 mg/dL 09/12/2015 Comp Metabolic Eno114 B/C Ratio 16.3 Ratio 09/12/2015 Comp Metabolic Wen265 CALCIUM 9.3 mg/dL 09/12/2015 Comp Metabolic Nrs655 ALK PHOS 55 U/L 09/12/2015 Comp Metabolic Gkq086 AST(SGOT) 19 U/L 09/12/2015 Comp Metabolic Lmd344 ALT(SGPT) 14 U/L 09/12/2015 Comp Metabolic Bfo121 BILI T 0.6 mg/dL 09/12/2015 Comp Metabolic Lwo963 ALBUMIN 4.3 g/dL 09/12/2015 Comp Metabolic Zsi417 TPRO 6.8 g/dL 09/12/2015 Comp Metabolic Mrb671 GLOB 2.5 g/dL 09/12/2015 Comp Metabolic Pgh851 A/G Ratio 1.8 Ratio 09/12/2015 Comp Metabolic Aqj689 Osmo 280 mOsmo 09/12/2015 B12 Amm759 B12 >1500.00 pg/ml 09/12/2015 Cbc With Differential [...] 28.9 pg 09/12/2015 Cbc With Differential Ord2 [place]% 5.9 % 09/12/2015 Cbc With Differential Ord2 MCHC 33.1 pg 09/12/2015 Cbc With Differential Ord2 Eos% 1.2 % 09/12/2015 Cbc With Differential Ord2 Baso% 0.7 % 09/12/2015 Cbc With Differential Ord2 PLT 215 K/ul 09/12/2015 Cbc With Differential Ord2 RDW 13.4 % 09/12/2015 Cbc With Differential Ord2 Neut ABS# 2.56 K/ul 09/12/2015 Cbc With Differential Ord2 Lymph ABS# 1.33 K/ul 09/12/2015 Cbc With Differential Ord2 [place] ABS# 0.3 K/ul 09/12/2015 Cbc With Differential Ord2 Eos ABS# 0.1 K/ul 09/12/2015 Cbc With Differential Ord2 Baso ABS# 0.0 K/ul 09/12/2015 Tsh Ord6 hTSH II 1.88 uIU/mL 09/12/2015 Review of Systems System Result Effective Dates Constitutional No recent illness 04/20/2016 Constitutional No [...] Full Exam - General 1994 Neurologic coordination Vpcboc-ield-tekytc testing - left: dysmetria 04/20/2016 None Full Exam - General 1994 Neurologic coordination Keemnj-bvii-ksviji testing - right: dysmetria 04/20/2016 None Full [...] Full Exam - General 1994 Neurologic coordination Njnmzk-ugvk-mglqep testing - left: dysmetria 02/25/2016 None Full Exam - General 1994 Neurologic coordination Xwkfoe-yudi-cfrhhw testing - right: dysmetria 02/25/2016 None Full [...] Full Exam - General 1994 Neurologic coordination Tmfzge-lgde-taenub testing - left: dysmetria 01/28/2016 None Full Exam - General 1994 Neurologic coordination Iziryi-qlmx-wddlet testing - right: dysmetria 01/28/2016 None Full [...] palp - head/face Lesion: excoriation 07/16/2014 right sabianist, redness right eyelid Full Exam - Dermatology [...] clear 04/02/2014 None Full Exam - General 1995 Ears/Nose/Throat oral cavity/pharynx/larynx Overall: hypopharynx benign 04/02/2014 [...] rate 08/01/2013 None Full Exam - General 1995 Cardiovascular extremities Overall: no clubbing 08/01/2013 None [...] benign 05/02/2013 None Full Exam - General 1995 Ears/Nose/Throat oral cavity/pharynx/larynx Overall: no masses 05/02/2013 None Full Exam - General 1995 [...] clear 04/18/2013 None Full Exam - General 1995 Ears/Nose/Throat [...] Procedure Codes Date THER/PROPH/DIAG INJ SC/IM CPT-4: 27294Vnjmqzw 09/15/2016 TRIAMCINOLONE ACET INJ NOS CPT-4: J7261Jzikvkd 09/15/2016 ADMIN INFLUENZA VIRUS VAC CPT-4: L6807Gvupuys 01/08/2016 ADMIN PNEUMOCOCCAL VACCINE SNOMED CT: 62417399 CPT-4: V0026Urkbqmi 01/08/2016 PNEUMOCOCCAL VACC 13 RIVERA IM Formatting Model/CDA Sections, Assigned to/Aliya Muñoz SNOMED CT: 69136402 CPT-4: 24110Qmsxhjm 01/08/2016 FLU VACC 4 RIVERA 3 YRS PLUS IM SNOMED CT: 94164993 CPT-4: 27418Vuuutqs 01/08/2016 THER/PROPH/DIAG INJ SC/IM CPT-4: 37388Kvgwffq 04/02/2014 TRIAMCINOLONE ACET INJ NOS CPT-4: A3542Xjebcvv 04/02/2014 ROCEPHIN, PER 250 MG CPT-4: S3993Odpkmul 04/02/2014 TRIAMCINOLONE ACET INJ NOS CPT-4: S2635Dtuebxj 08/01/2013 THER/PROPH/DIAG INJ SC/IM CPT-4: 87562Psotjve 08/01/2013 Vital Signs Date Vital 04/20/2016 Blood Pressure 1: 144/86 Code: 8480-6 BMI: 34.3 Code: 34841-9 Heart Rate 1: 68 bpm Height: 5'5" SpO2: 97% Weight: 206 lbs 02/25/2016 Blood Pressure 1: 122/82 Code: 8480-6 BMI: 34.4 Code: 11179-8 Heart Rate 1: 86 bpm Height: 5'5" SpO2: 94% Weight: 207 lbs 01/28/2016 Blood Pressure 1: 128/86 Code: 8480-6 BMI: 33.3 Code: 21690-3 Heart Rate 1: 86 bpm Height: 5'5" SpO2: 96% Weight: 200 lbs 11/14/2015 Blood Pressure 1: 140/90 Code: 8480-6 Blood Pressure 1: 138/88 Code: 8480-6 BMI: 33.3 Code: 13983-1 Heart Rate 1: 98 bpm Height: 5'5" SpO2: 97% Weight: 200 lbs 10/10/2015 Blood Pressure 1: 132/80 Code: 8480-6 BMI: 33.3 Code: 96485-3 Heart Rate 1: 74 bpm Height: 5'5" SpO2: 96% Weight: 200 lbs 09/12/2015 Blood Pressure 1: 148/90 Code: 8480-6 BMI: 32.9 Code: 05592-4 Heart Rate 1: 94 bpm Height: 5'5" SpO2: 97% Weight: 198 lbs 04/09/2015 Blood Pressure 1: 160/82 Code: 8480-6 Blood Pressure 1: 130/84 Code: 8480-6 BMI: 32.4 Code: 43893-0 Heart Rate 1: 74 bpm Height: 5'5" SpO2: 95% Weight: 195 lbs 10/05/2014 Blood Pressure 1: 140/80 Code: 8480-6 BMI: 30.5 Code: 49935-3 Heart Rate 1: 79 bpm Height: 5'5" SpO2: 98% Weight: 183 lbs 09/07/2014 Blood Pressure 1: 142/96 Code: 8480-6 BMI: 32.1 Code: 35774-0 Heart Rate 1: 72 bpm Height: 5'5" SpO2: 98% Temperature: 36.5 (C) / 97.7 (F) Weight: 193 lbs 07/16/2014 Blood Pressure 1: 138/82 Code: 8480-6 BMI: 31.8 Code: 93778-3 Heart Rate 1: 76 bpm Height: 5'5" Weight: 191 lbs 04/02/2014 Blood Pressure 1: 148/90 Code: 8480-6 BMI: 33.8 Code: 73633-5 Heart Rate 1: 68 bpm Height: 5'5" Temperature: 36.9 (C) / 98.4 (F) Weight: 203 lbs 12/14/2013 Blood Pressure 1: 140/88 Code: 8480-6 BMI: 35.3 Code: 86968-7 Heart Rate 1: 91 bpm Height: 5'5" SpO2: 97% Weight: 212 lbs 08/01/2013 Blood Pressure 1: 126/68 Code: 8480-6 BMI: 35.1 Code: 40721-1 Heart Rate 1: 76 bpm Height: 5'5" Temperature: 36.7 (C) / 98.1 (F) Weight: 211 lbs 05/02/2013 Blood Pressure 1: 118/86 Code: 8480-6 BMI: 34.9 Code: 43157-6 Heart Rate 1: 76 bpm Height: 5'5" Weight: 209 lbs 8 oz 04/18/2013 Blood Pressure 1: 118/60 Code: 8480-6 BMI: 35.3 Code: 03270-3 Heart Rate 1: 68 bpm Height: 5'5" Weight: 212 lbs Functional Status No Functional Status data History of Present Illness Symptom Name Status Result Effective Date Notes anxiety Onset and Resolution ongoing 04/20/2016 None [...] data Encounters Encounter Performer Location Codes Date ([id number]) 18950 EST. PATIENT, LEVEL IV Diagnosis: Essential (primary) hypertension[ICD10: I10] Diagnosis: Generalized anxiety disorder[ICD10: F41.1] [facility] CPT-4: 15669 04/20/2016 ([id number]) 21184 EST. PATIENT, LEVEL IV Diagnosis: Essential (primary) hypertension[ICD10: I10] Diagnosis: Chronic kidney disease, stage 3 (moderate)[ICD10: N18.3] Diagnosis: Generalized anxiety disorder[ICD10: F41.1] Diagnosis: Major depressive disorder, recurrent, moderate[ICD10: F33.1] Diagnosis: Shortness of breath[ICD10: R06.02] [facility] CPT- 4: 74336 02/25/2016 [id number]) 37751 EST. PATIENT, LEVEL IV Diagnosis: Generalized anxiety disorder[ICD10: F41.1] Diagnosis: Major depressive disorder, recurrent, moderate[ICD10: F33.1] Diagnosis: Essential (primary) hypertension[ICD10: I10] Diagnosis: Restless legs syndrome[ICD10: G25.81] Diagnosis: Myalgia[ICD10: M79.1] Noa Lao MD, [facility] CPT-4: 06853 01/28/2016 ([id number]) 19293 EST. PATIENT, LEVEL III Diagnosis: Essential (primary) hypertension[ICD10: I10] Diagnosis: Insomnia, unspecified[ICD10: G47.00] Noa Lao MD, [facility] CPT-4: 95132 11/14/2015 ([id number]) 08095 EST. 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 PATIENT, LEVEL IV Diagnosis: Bitten or stung by nonvenomous insect and other nonvenomous arthropods, initial encounter[ICD10: W57.XXXA] Diagnosis: Other fatigue[ICD10: R53.83] Diagnosis: Vitamin D deficiency, unspecified[ICD10: E55.9] Diagnosis: Other vitamin B12 deficiency anemias[ICD10: D51.8] Diagnosis: Essential (primary) hypertension[ICD10: I10] Diagnosis: Iron deficiency[ICD10: E61.1] Noa Lao MD, [facility] CPT-4: 17580 09/12/2015 ([id number]) 75810 EST. PATIENT, LEVEL III Diagnosis: Essential (primary) hypertension[ICD10: I10] Diagnosis: Chronic kidney disease, stage 3 (moderate)[ICD10: N18.3] Noa Lao MD, [facility] CPT-4: 84848 04/09/2015 ([id number]) 84363 EST. PATIENT, LEVEL III Diagnosis: ESSENTIAL HYPERTENSION[ICD9: 401.9] Noa Lao MD [facility] CPT-4: 19785 10/05/2014 ([id number]) 42747 EST. PATIENT, LEVEL IV Diagnosis: Easy bruising[ICD9: 782.9] Diagnosis: Iron deficiency anemia[ICD9: 280.9] Diagnosis: ESSENTIAL HYPERTENSION[ICD9: 401.9] Diagnosis: Chronic kidney disease, stage 3[ICD9: 585.3] Noa Lao MD, [facility] CPT-4: 30763 09/07/2014 ([id number]) 05331 EST. PATIENT, LEVEL III Diagnosis: Shingles[ICD9: 053.9] Marilyn Lao MD [facility] CPT-4: 40808 07/16/2014 ([id number]) 48630 EST. PATIENT, LEVEL III Diagnosis: PNEUMONIA (CAP)[ICD9: 486] Diagnosis: COUGH[ICD9: 786.2] Marilyn Lao MD, [facility] CPT-4: 63757 04/02/2014 ([id number]) 62612 EST. PATIENT, LEVEL III Diagnosis: ESSENTIAL HYPERTENSION[ICD9: 401.9] Diagnosis: Rib pain on left side[ICD9: 786.50] Diagnosis: EDEMA[ICD9: 782.3] Noa Lao MD, [facility] CPT-4: 76315 12/14/2013 ([id number]) 92728 EST. PATIENT, LEVEL IV Diagnosis: ESOPHAGEAL REFLUX[ICD9: 530.81] Diagnosis: Urge incontinence[ICD9: 788.31] Diagnosis: Elbow pain, right[ICD9: 719.42] Diagnosis: Snoring[ICD9: 786.09] Marilyn Lao MD, [facility] CPT-4: 71792 08/01/2013 ([id number]) 84913 EST. PATIENT, LEVEL IV Diagnosis: ESSENTIAL HYPERTENSION[SNOMED: 77076535] Diagnosis: EDEMA[ICD9: 782.3] Diagnosis: Chronic renal insufficiency, stage III (moderate)[ICD9: 585.3] Diagnosis: HYPERLIPIDEMIA[ICD9: 272.4] Marilyn Lao MD, [facility] CPT-4: 90799 05/02/2013 ([id number]) 40714 EST. PATIENT, LEVEL IV Diagnosis: ESSENTIAL HYPERTENSION[SNOMED: 10021619] Diagnosis: Restless leg[ICD9: 333.94] Marilyn Lao MD, [facility] CPT-4: 13437 04/18/2013 Plan of Care Planned Activity Notes Codes Status Date Appointment: Injection 09/15/2016 Patient Education: Patient Medication Summary Completed 09/15/2016 Appointment: Marilyn Lao WPtel: [facility] (15 min) Moderate 08/19/2016 Patient Education: Patient Medication Summary Completed 06/19/2016 Visit Plan: Hypertension - well controlled - continue with current medications, continue with no added salt diet. Pt has been encouraged to exercise daily.The pt has been advised to call the office if there are any acute concerns about change in blood pressure readings at home.Chronic Depression and anxiety - the pt has symptoms of chronic anxiety and depression that have been fairly well controlled since the last office visit. The pt has expected periods of exacerbation with abatement of the symptoms with change in situational exposure. No change in current medications. 04/20/2016 Appointment: Marilyn Lao WPtel: [facility] (30 min) Complex 04/20/2016 Patient Education: Patient Medication Summary Completed 04/20/2016 Patient Education: Obesity Completed 04/20/2016 Patient Education: Hypertension Completed 04/20/2016 Appointment: Noa Orlando WPtel: [phone] (30 min) Complex 03/16/2016 Referral: Ta Santacruz Referral Completed 03/03/2016 Visit Plan: Hypertension - well controlled - continue with current medications, continue with no added salt diet. Pt has been encouraged to exercise daily.The pt has been advised to call the office if there are any acute concerns about change in blood pressure readings at home.Shortness of breath-family of heart disease-had stress test, echo, heart cath with Dr Santacruz several years ago-due for follow up. Chronic renal disease-check labs Rdadlgy-vsxoumjiim-vmtpkztz with cymbalta-continue same dose for now -may take xanax TID PRNMultiple joint pain- check labs including inflammatory markers 02/25/2016 Appointment: Noa Orlando WPtel: [phone] (30 min) Complex 02/25/2016 Patient Education: Patient Medication Summary Completed 02/25/2016 Patient Education: Obesity Completed 02/25/2016 Patient Education: Hypertension Completed 02/25/2016 Care Plan: Referral Order SNOMED-CT : [id number] Pending 02/25/2016 Visit Plan: Anxiety/Depression - the patient has uncontrolled anxiety and will benefit from changing medication to attempt control of the symptoms of anxiety (tachycardia, overwhelming sensations, stress, insomnia, etc). I also believe that the patient will benefit from very low dose of prn benzodiazepine. Pt is aware of the risks and benefits of treatment with the above medications.STOP ZOLOFT-START CYMBALTA 60MG DAILY Hypertension - well controlled - continue with current medications, continue with no added salt diet. Pt has been encouraged to exercise daily.The pt has been advised to call the office if there are any acute concerns about change in blood pressure readings at home.Restless dix-zooxus-vmwhyjcm requip to twice daily-monitor symptoms Myalgias-stop pravastatin 01/28/2016 Appointment: Noa Orlando WPtel: [phone] (30 min) Complex 01/28/2016 Patient Education: Patient Medication Summary Completed 01/28/2016 Appointment: Injection 01/08/2016 Patient Education: Patient Medication Summary Completed 01/08/2016 Visit Plan: Hypertension - well controlled - continue with current medications, continue with no added salt diet. Pt has been encouraged to exercise daily.The pt has been advised to call the office if there are any acute concerns about change in blood pressure readings at home.Insomnia - Pt has been advised to increase the light in the house during the day, and start dimming the lights during the evening hours.Pt has been advised to cut out caffeine after 5pm.Daytime napping worsens night time insomnia. 11/14/2015 Patient Education: Patient Medication Summary Completed 11/14/2015 Patient Education: Obesity Completed 11/14/2015 Visit Plan: Hypertension - well controlled - continue with current medications, continue with no added salt diet. Pt has been encouraged to exercise daily.The pt has been advised to call the office if there are any acute concerns about change in blood pressure readings at home.Ehrlichiosis-continue doxycycline IBS-D-RX for viberzi provided and instructed on use. 10/10/2015 Patient Education: Patient Medication Summary Completed 10/10/2015 Patient Education: Obesity Completed 10/10/2015 Patient Education: Hypertension Completed 10/10/2015 [facility] [place] (15 min) Moderate 10/08/2015 Visit Plan: Hypertension - well controlled - continue with current medications, continue with no added salt diet. Pt has been encouraged to exercise daily.The pt has been advised to call the office if there are any acute concerns about change in blood pressure readings at home.Iron deficiency-B12 deficiency-check labsTick mucc-qitcija-uemes tick panel 09/12/2015 Appointment: [facility] [phone] [place] (15 min) Moderate 09/12/2015 Patient Education: Patient Medication Summary Completed 09/12/2015 Patient Education: Obesity Completed 09/12/2015 Visit Plan: Hypertension - well controlled - continue with current medications, continue with no added salt diet. Pt has been encouraged to exercise daily.The pt has been advised to call the office if there are any acute concerns about change in blood pressure readings at home. 04/09/2015 Appointment: (30 min) Complex 04/09/2015 Patient Education: Patient Medication Summary Completed 04/09/2015 Patient Education: Hypertension Completed 04/09/2015 Visit Plan: Hypertension - well controlled - continue with current medications, continue with no added salt diet. Pt has been encouraged to exercise daily.The pt has been advised to call the office if there are any acute concerns about change in blood pressure readings at home. 10/05/2014 Appointment: (15 min) Moderate 10/05/2014 Patient Education: Patient Medication Summary Completed 10/05/2014 Patient Education: Hypertension Completed 10/05/2014 Visit Plan: Easy bruising-hold aspirin x 1 week-monitor symptoms Iron deficiency anemia-stopped oral iron per physical therapy resident in March-recheck labsHTN-elevated today-monitor twice daily x 1 week and [...] the office next week for practitioner to review.The pt is to call for acute concerns. 09/07/2014 Appointment: (15 min) Moderate 09/07/2014 Patient Education: Patient Medication Summary Completed 09/07/2014 Patient Education: Hypertension Completed 09/07/2014 Care Plan: COMPLETE CBC AUTOMATED LOINC : 11630-8 Ordered 09/07/2014 Visit Plan: Shingles - Herpes Zoster - acute in onset - pt started on acyclovir and instructed to call if symptoms worsen or if the pt is concerned about the symptoms. Pt has been advised to avoid contact with persons who may be , or infants, or immunocompromised individuals.Pt has been instructed that shingles will continue to break out and eventually scab over a two week period, until all of the vesicles are scabbed, the pt is to be considered contagious. 07/16/2014 Appointment: Sick 07/16/2014 Patient Education: Patient Medication Summary Completed 07/16/2014 Appointment: Marilyn Lao WPtel: [facility] Follow up 04/16/2014 Appointment: Sick 04/03/2014 Visit Plan: Pneumonia - Pt has been diagnosed with pneumonia by physical exam. Antibiotics started. The pt is aware of the diagnosis and the need for acute treatment of this illness. 04/02/2014 Patient Education: Patient Medication Summary Completed 04/02/2014 Appointment: Marilyn Lao WPtel: [facility] Sick 12/27/2013 Patient Education: Patient Medication [...] the office next week for practitioner to review.The pt is to call for acute concerns.Left rib pain-xray left ribs Edema - pt has been advised to elevate legs to prevent dependent edema, compression has been recommended to help to naturally decrease peripheral edema. Diuretic use has been discussed and pt has been instructed in appropriate use of such medication as necessary to further attempt to reduce peripheral edema.Night odepzl-wpldydt-hargl labs 12/14/2013 Appointment: Follow up 12/14/2013 Patient Education: Patient Medication Summary Completed 12/14/2013 Patient Education: Hypertension Completed 12/14/2013 Appointment: Noa Orlando WPtel: [phone] Sick 12/01/2013 Appointment: Marilyn Lao WPtel: [facility] Sick 11/30/2013 Visit Plan: Allergies - chronic - recommended pt to use allergy medication as prescribed. Pt has been counseled as the the appropriate use of the medication. Pt to call if allergy symptoms are not controlled with the medication.If using nasal spray, instructions as follows: Nasal spray- use twice daily, one spray per nostril twice daily, after 30 minutes, rinse out nose with saline spray.. Use opposite hand per nostril to spray in the nasal steroid allergy spray.Recommended referral to Dr. Cm for sleep eval/sleep study.Urge incontinence - and history of pelvic surgery for incontinence - recommended evaluation for pt with Dr. Alanis as pt would like an opinion that does not immediately lead to surgical intervention.Elbow pain - pt with point tenderness in right elbow - recommended pt to keep elbow elevated.Pt to be on steroids for her allergies - will also help with her elbow pain, monitor symptoms. 08/01/2013 Appointment: Marilyn Lao WPtel: [facility] Follow up 08/01/2013 Patient Education: Patient Medication Summary Completed 08/01/2013 Visit Plan: Hypertension - well controlled - continue with current medications, continue with no added salt diet. Pt has been encouraged to exercise daily.The pt has been advised to call the [...] and to assure normal liver response to medications.Pt to start on fish oil twice daily.Edema - recommended thigh high compression socks to be worn in AM and off at bedtime. I have recommended that Poonam attempt to decrease her lasix from 40mg down to 30mg daily x 2 weeks, then further decrease down to 20mg daily if able to do so without excessive swelling.CRF stage III - monitor labs/adjust medications as able. 05/02/2013 Appointment: Marilyn Lao WPtel: [address] [facility] Follow up 05/02/2013 Patient Education: Patient Medication Summary Completed 05/02/2013 Patient Education: Hypertension Completed 05/02/2013 Visit Plan: Hypertension - well controlled - continue with current medications, continue with no added salt diet. Pt has been encouraged to exercise daily.The pt has been advised to call the office if there are any acute concerns about change in blood pressure readings at home.Restless Leg syndrome - pt is to continue on oral ropinirol and to be on oral iron as well - she is to take her iron with orange juice. 04/18/2013 Appointment: [phone] New Patient 04/18/2013 Patient Education: Patient Medication Summary Completed 04/18/2013 Patient Education: Hypertension Completed 04/18/2013 Referral: Ta Santacruz Referral Appointment Requested Instructions [...] in blood pressure readings at home. Restless qfl-euoshx-cagwhjeh requip to twice daily-monitor symptoms Myalgias-stop pravastatin [...] for follow up. Chronic renal disease-check labs Rzrhqyz-lzpfqswpty-nqvqqtdt with cymbalta-continue same dose for now -may take xanax TID PRN Multiple joint pain-check labs including inflammatory markers Restless Leg syndrome - pt is to [...] at home. Iron deficiency-B12 deficiency-check labs Tick jros-daphrmx-uhhmh tick panel . Hypertension - well controlled [...] the pt is to be considered contagious. HOLD ASPIRIN X1 WEEK CHECK BLOOD PRESSURE AND PULSE TWICE DAILY X 1 WEEK AND CALL WITH READINGS . Easy bruising-hold aspirin x 1 week-monitor symptoms Iron deficiency anemia-stopped oral iron per physical therapy resident in March-recheck labs HTN-elevated today-monitor twice daily [...] III - monitor labs/adjust medications as able. doxycycline 100mg twice daily x 2 weeks [...] further attempt to reduce peripheral edema. Night zaqvbu-kqrhltp-sxmwp labs
--- OUTSIDE RECORDS SUMMARY | 2018-11-04 15:39 | XMS REPORT | CCD ---
Author Author Marilyn Lao Organization Marilyn Lao MD, [facility] Address [address] [place] [address] Phone Care Team Providers Care Access Control Specialist Name Role Phone PP Unavailable CCM Unavailable Summary Purpose Interface Exchange Insurance Providers Payer name Policy type / Coverage type Covered democrat ID Effective Begin Date Effective End Date WPS Medicare Part B Medicare Part B [id number] Unknown [employer] Life Medicare Part B [id number] Unknown Family history Mother Diagnosis Age At [...] Description Effective Dates Tobacco history SNOMED CT: 967936730 Never smoker but had significant smoke exposure during first marriage, [place]. 08/01/2013 Employment Unknown Retired doing as needed working for the [employer]. 05/02/2013 Marital status Unknown 04/18/[address]: 637927304 Never drinks alcohol 04/18/2013 Has the patient [...] Start Date Stop Date Status Fill Instructions Kenalog 40 mg/mL suspension for injection RxNorm: 0630657 Milliliter(s) Inj 09/15/2016 09/15/2016 Inactive tramadol 50 mg tablet RxNorm: 809000 Tablet(s) TAKE 2 TABLETS BY MOUTH TWICE DAILY 08/18/2016 02/13/2017 Active Generic For:ULTRAM 50 MG TABLET N O T I C E Last quantity doesn't match original quantity(Response to an electronic controlled substance refill request - RxReferenceNumber: [id number]) potassium chloride ER 10 mEq capsule,extended release RxNorm: 146549 TAKE ONE CAPSULE BY MOUTH DAILY NEEDED 08/03/2016 01/29/2017 Active furosemide 20 mg tablet RxNorm: 168433 1 Tablet(s) PO daily as needed for swelling 06/18/2016 06/12/2017 Active 2 daily x 1 week then daily potassium chloride ER 10 mEq capsule,extended release RxNorm: 344695 1 Capsule(s) PO QDAY PRN 06/18/2016 08/02/2016 Inactive Carafate 1 gram tablet RxNorm: 707595 1 Tablet(s) PO daily 04/24/2016 04/18/2017 Active Cymbalta 60 mg capsule,delayed release RxNorm: 847163 1 Capsule(s) PO daily 04/24/2016 10/20/2016 Active montelukast 10 mg tablet RxNorm: 192226 1 Tablet(s) PO QHS 04/24/2016 04/18/2017 Active omeprazole 20 mg capsule,delayed release RxNorm: 069505 Capsule(s) 1 Capsule(s) PO daily 04/24/2016 04/18/2017 Active ropinirole 1 mg tablet RxNorm: 908664 2 Tablet(s) PO QHS 04/24/2016 04/18/2017 Active labetalol 100 mg tablet RxNorm: 421327 1 Tablet(s) PO BID 04/24/2016 04/18/2017 Active amlodipine 5 mg tablet RxNorm: 155771 Tablet(s) TAKE 1 TABLET BY MOUTH TWICE DAILY 04/24/2016 04/18/2017 Active Transferring from [facility] furosemide 20 mg tablet RxNorm: 221910 1 Tablet(s) PO daily as needed for swelling 04/24/2016 06/17/2016 Inactive Xanax 0.25 mg tablet RxNorm: 884240 1 Tablet(s) PO TID PRN as needed 02/25/2016 03/25/2016 Inactive NEED TO GIVE #90 WITH NEXT REFILL Xanax 0.25 mg tablet RxNorm: 902229 1 Tablet(s) PO BID PRN as needed 02/19/2016 02/24/2016 Inactive [SAVINGS FOR UNINSURED PATIENTS -- BIN:408973, PCN: ASPROD1, Group: AME08, ID# [id number], Process claim through ITI Tech, for questions: . THIS IS NOT INSURANCE.] Cymbalta 60 mg capsule,delayed release RxNorm: 784875 1 Capsule(s) PO daily 01/28/2016 04/23/2016 Inactive ropinirole 1 mg tablet RxNorm: 703287 1 Tablet(s) PO BID TAKE 1 TABLET BY MOUTH DAILY EVERY NIGHT 01/28/2016 04/23/2016 Inactive Generic For:REQUIP 1 MG TABLET tramadol 50 mg tablet RxNorm: 437611 Tablet(s) TAKE 2 TABLETS BY MOUTH TWICE DAILY 01/16/2016 07/13/2016 Inactive Generic For:ULTRAM 50 MG TABLET N O T I C E Last quantity doesn't match original quantity(Response to an electronic controlled substance refill request - RxReferenceNumber: [id number]) omeprazole 20 mg capsule,delayed release RxNorm: 737768 1 Tablet(s) PO daily 1 Capsule(s) PO daily 12/11/2015 04/23/2016 Inactive pravastatin 10 mg tablet RxNorm: 611354 1 Tablet(s) PO QHS TAKE 1 TABLET BY MOUTH EVERY NIGHT 11/28/2015 01/27/2016 Inactive Generic For:PRAVACHOL 10 MG TABLET furosemide 20 mg tablet RxNorm: 933905 1 Tablet(s) PO daily as needed for swelling 11/12/2015 04/23/2016 Inactive pravastatin 10 mg tablet RxNorm: 922991 1 Tablet(s) PO QHS TAKE 1 TABLET BY MOUTH EVERY NIGHT 11/07/2015 11/27/2015 Inactive Generic For:PRAVACHOL 10 MG TABLET Xanax 0.25 mg tablet RxNorm: 673528 1 Tablet(s) PO BID PRN as needed 10/28/2015 01/25/2016 Inactive [SAVINGS FOR UNINSURED PATIENTS -- BIN:775941, PCN: ASPROD1, Group: AME08, ID# [id number], Process claim through ITI Tech, for questions: . THIS IS NOT INSURANCE.] Viberzi 75 mg tablet RxNorm: 6732444 1 Tablet(s) PO BID 10/10/2015 10/10/2015 Inactive doxycycline hyclate 100 mg tablet RxNorm: 513230 1 Tablet(s) PO BID 10/10/2015 10/23/2015 Inactive Vitamins B Complex capsule RxNorm: 1 Capsule(s) PO daily 09/12/2015 No Stop Date Active Vitamin D3 1,000 unit tablet RxNorm: 345446 3-4 Tablet(s) PO daily 09/12/2015 No Stop Date Active Augmentin 500 mg-125 mg tablet RxNorm: 493934 1 Tablet(s) PO BID 07/09/2015 2015 Inactive probiotic one bid x 7 days Augmentin 500 mg-125 mg tablet RxNorm: 151088 1 Tablet(s) PO BID 07/09/2015 07/08/2015 Inactive Xanax 0.25 mg tablet RxNorm: 695530 1 Tablet(s) PO BID PRN as needed 07/01/2015 09/28/2015 Inactive [SAVINGS FOR UNINSURED PATIENTS -- BIN:894387, PCN: ASPROD1, Group: AME08, ID# [id number], Process claim through ITI Tech, for questions: . THIS IS NOT INSURANCE.] sertraline 100 mg tablet RxNorm: 027396 TAKE 1 TABLET BY MOUTH TWICE DAILY 07/01/2015 01/27/2016 Inactive Generic For:*ZOLOFT 100MG TABLET N O T I C E Last quantity doesn't match original quantity amlodipine 5 mg tablet RxNorm: 449239 TAKE 1 TABLET BY MOUTH TWICE DAILY 06/26/2015 04/23/2016 Inactive Generic For:NORVASC 5 MG TABLET N O T I C E Last quantity doesn't match original quantity amlodipine 5 mg tablet RxNorm: 905861 Tablet(s) 1 Tablet(s) PO BID 06/25/2015 06/25/2015 Inactive ropinirole 1 mg tablet RxNorm: 316541 TAKE 1 TABLET BY MOUTH DAILY EVERY NIGHT 05/22/2015 01/27/2016 Inactive Generic For:REQUIP 1 MG TABLET ropinirole 1 mg tablet RxNorm: 867660 Tablet(s) 1 Tablet(s) PO QPM 05/22/2015 05/21/2015 Inactive pravastatin 10 mg tablet RxNorm: 663636 TAKE 1 TABLET BY MOUTH EVERY NIGHT 05/14/2015 11/06/2015 Inactive Generic For:PRAVACHOL 10 MG TABLET tramadol 50 mg tablet RxNorm: 218608 2 Tablet(s) PO BID 04/25/2015 01/18/2016 Inactive labetalol 100 mg tablet RxNorm: 603293 1 Tablet(s) PO BID 04/09/2015 04/23/2016 Inactive omeprazole 20 mg capsule,delayed release RxNorm: 008852 1 Tablet(s) PO daily 1 Capsule(s) PO daily 03/20/2015 12/10/2015 Inactive Carafate 1 gram tablet RxNorm: 651351 Tablet(s) PO UD 4 times daily x 1 week and then PRN 02/27/2015 02/21/2016 Inactive Xanax 0.25 mg tablet RxNorm: 067010 1 Tablet(s) PO BID PRN as needed 02/08/2015 06/06/2015 Inactive [SAVINGS FOR UNINSURED PATIENTS -- BIN:533409, PCN: ASPROD1, Group: AME08, ID# [id number], Process claim through ITI Tech, for questions: . THIS IS NOT INSURANCE.] furosemide 20 mg tablet RxNorm: 595843 1 Tablet(s) PO daily as needed for swelling 10/25/2014 02/21/2015 Inactive ok to fill by Dr. Franklin 10-25-14 Xanax 0.25 mg tablet RxNorm: 316444 1 Tablet(s) PO BID PRN as needed 09/25/2014 01/21/2015 Inactive [SAVINGS FOR UNINSURED PATIENTS -- BIN:217746, PCN: ASPROD1, Group: BORIS, ID# [id number], Process claim through ITI Tech, for questions: . THIS IS NOT INSURANCE.] pravastatin 10 mg tablet RxNorm: 758979 TAKE 1 TABLET BY MOUTH EVERY NIGHT 09/06/2014 04/03/2015 Inactive Generic For:PRAVACHOL 10 MG TABLET tramadol 50 mg tablet RxNorm: 426863 TAKE 2 TABLETS BY MOUTH TWICE DAILY 08/02/2014 01/15/2016 Inactive Generic For:ULTRAM 50 MG TABLET N O T I C E Last quantity doesn't match original quantity(Response to an electronic controlled substance refill request - RxReferenceNumber: [id number]) tramadol 50 mg tablet RxNorm: 193040 2 Tablet(s) PO BID 08/01/2014 08/02/2014 Inactive acyclovir 400 mg tablet RxNorm: 316666 2 Tablet(s) PO QID 07/16/2014 07/25/2014 Inactive sertraline 100 mg tablet RxNorm: 667116 1 Tablet(s) PO BID 1 Tablet(s) PO BID 06/13/2014 12/09/2014 Inactive sertraline 100 mg tablet RxNorm: 400660 1 Tablet(s) PO BID 06/13/2014 06/12/2014 Inactive magnesium oxide 400 mg tablet RxNorm: 870358 1 Tablet(s) PO daily 05/25/2014 2014 Inactive ropinirole 1 mg tablet RxNorm: 119685 1 Tablet(s) PO QPM 05/25/2014 05/19/2015 Inactive amlodipine 5 mg tablet RxNorm: 808841 1 Tablet(s) PO BID 05/25/2014 05/19/2015 Inactive prednisone 10 mg tablets in a dose pack RxNorm: 259905 1 Tablet(s) PO UD 04/06/2014 04/10/2014 Inactive 6-5-4-3-2-1 Xanax 0.25 mg tablet RxNorm: 445070 1 Tablet(s) PO BID PRN as needed 04/04/2014 07/02/2014 Inactive [SAVINGS FOR UNINSURED PATIENTS -- BIN:827297, PCN: ASPROD1, Group: AME08, ID# [id number], Process claim through MedImpact, for questions: . THIS IS NOT INSURANCE.] prednisone 20 mg tablet RxNorm: 702574 3 Tablet(s) PO daily 04/02/2014 04/05/2014 Inactive [SAVINGS FOR UNINSURED PATIENTS -- BIN:469359, PCN: ASPROD1, Group: AME08, ID# [id number], Process claim through MedImpact, for questions: . THIS IS NOT INSURANCE.] cefdinir 300 mg capsule RxNorm: 223711 1 Capsule(s) PO BID 04/02/2014 04/11/2014 Inactive [SAVINGS FOR UNINSURED PATIENTS -- BIN:558446, PCN: ASPROD1, Group: AME08, ID# [id number], Process claim through MedImpact, for questions: . THIS IS NOT INSURANCE.] Kenalog 40 mg/mL suspension for injection RxNorm: 0373907 Milliliter(s) Inj 04/02/2014 04/02/2014 Inactive [SAVINGS FOR UNINSURED PATIENTS -- BIN:321461, PCN: ASPROD1, Group: AME08, ID# [id number], Process claim through MedImpact, for questions: . THIS IS NOT INSURANCE.] ceftriaxone 500 mg solution for injection RxNorm: 118763 Inj 04/02/2014 04/02/2014 Inactive [SAVINGS FOR UNINSURED PATIENTS -- BIN:110395, PCN: ASPROD1, Group: AME08, ID# [id number], Process claim through MedImpact, for questions: . THIS IS NOT INSURANCE.] albuterol sulfate 2.5 mg/0.5 mL solution for nebulization RxNorm: 654972 1 treatment INH QID and as needed for dyspnea 04/02/2014 05/31/2014 Inactive [SAVINGS FOR UNINSURED PATIENTS -- BIN:713897, PCN: ASPROD1, Group: AME08, ID# [id number], Process claim through MedImpact, for questions: . THIS IS NOT INSURANCE.] azithromycin 500 mg tablet RxNorm: 211005 1 Tablet(s) PO daily 04/02/2014 04/06/2014 Inactive [SAVINGS FOR UNINSURED PATIENTS -- BIN:201679, PCN: ASPROD1, Group: AME08, ID# [id number], Process claim through MedImpact, for questions: . THIS IS NOT INSURANCE.] omeprazole 20 mg capsule,delayed release RxNorm: 112103 1 Tablet(s) PO daily 1 Capsule(s) PO daily 02/26/2014 06/25/2014 Inactive Xanax 0.25 mg tablet RxNorm: 670200 1 Tablet(s) PO BID PRN as needed 02/01/2014 04/03/2014 Inactive [SAVINGS FOR UNINSURED PATIENTS -- BIN:167600, PCN: ASPROD1, Group: AME08, ID# [id number], Process claim through MedImpact, for questions: . THIS IS NOT INSURANCE.] Xanax 0.25 mg tablet RxNorm: 366527 1 Tablet(s) PO HS PRN as needed 01/04/2014 01/31/2014 Inactive [SAVINGS FOR UNINSURED PATIENTS -- BIN:974481, PCN: ASPROD1, Group: AME08, ID# [id number], Process claim through MedImpact, for questions: . THIS IS NOT INSURANCE.] pravastatin 10 mg tablet RxNorm: 475399 1 Tablet(s) PO QHS 12/21/2013 12/20/2013 Inactive pravastatin 10 mg tablet RxNorm: 170576 1 Tablet(s) PO QHS 12/21/2013 07/18/2014 Inactive [SAVINGS FOR UNINSURED PATIENTS -- BIN:305471, PCN: ASPROD1, Group: AME08, ID# [id number], Process claim through MedImpact, for questions: . THIS IS NOT INSURANCE.] Hytrin 1 mg tablet RxNorm: 802968 1 Tablet(s) PO BID 12/21/2013 04/08/2015 Inactive [SAVINGS FOR UNINSURED PATIENTS -- BIN:140241, PCN: ASPROD1, Group: AME08, ID# [id number], Process claim through MedImpact, for questions: . THIS IS NOT INSURANCE.] Hytrin 1 mg tablet RxNorm: 737951 1 Tablet(s) PO daily 12/18/2013 12/20/2013 Inactive [SAVINGS FOR UNINSURED PATIENTS -- BIN:615940, PCN: ASPROD1, Group: AME08, ID# [id number], Process claim through MedImpact, for questions: . THIS IS NOT INSURANCE.] sertraline 100 mg tablet RxNorm: 045575 1 Tablet(s) PO QHS 12/14/2013 12/08/2014 Inactive [SAVINGS FOR UNINSURED PATIENTS -- BIN:003548, PCN: ASPROD1, Group: AME08, ID# [id number], Process claim through MedImpact, for questions: . THIS IS NOT INSURANCE.] Xanax 0.25 mg tablet RxNorm: 414439 1 Tablet(s) PO HS PRN as needed 12/13/2013 01/03/2014 Inactive [SAVINGS FOR UNINSURED PATIENTS -- BIN:279172, PCN: ASPROD1, Group: AME08, ID# [id number], Process claim through MedImpact, for questions: . THIS IS NOT INSURANCE.] tramadol 50 mg tablet RxNorm: 429976 2 Tablet(s) PO BID 11/08/2013 04/24/2015 Inactive Xanax 0.25 mg tablet RxNorm: 862480 1 Tablet(s) PO HS PRN as needed 10/19/2013 10/18/2013 Inactive Xanax 0.25 mg tablet RxNorm: 437468 1 Tablet(s) PO HS PRN as needed 10/19/2013 12/12/2013 Inactive Carafate 1 gram tablet RxNorm: 018234 Tablet(s) PO dissolve 1 tab QID x 1 week, then TID x 1 week, then BID x 1 week 09/07/2013 02/26/2015 Inactive omeprazole 20 mg capsule,delayed release RxNorm: 712029 1 Capsule(s) PO daily 09/07/2013 09/06/2013 Inactive omeprazole 20 mg capsule,delayed release RxNorm: 866356 1 Capsule(s) PO daily 09/07/2013 02/26/2014 Inactive prednisone 10 mg tablet RxNorm: 425064 1 Tablet(s) PO 08/25/2013 12/13/2013 Inactive prednisone taper Zithromax Z-Bon 250 mg tablet RxNorm: 253482 Tablet(s) PO as directed 08/25/2013 12/13/2013 Inactive Zithromax Z-Bon 250 mg tablet RxNorm: 171383 Tablet(s) PO as directed 08/04/2013 08/24/2013 Inactive Xanax 0.25 mg tablet RxNorm: 150475 1 Tablet(s) PO HS PRN 08/01/2013 10/18/2013 Inactive Kenalog 40 mg/mL suspension for injection RxNorm: 8448667 Milliliter(s) Inj 08/01/2013 08/01/2013 Inactive tramadol 50 mg tablet RxNorm: 420898 2 Tablet(s) PO BID 05/02/2013 11/07/2013 Inactive carvedilol 25 mg tablet RxNorm: 487322 1 Tablet(s) PO BID 05/02/2013 12/13/2013 Inactive magnesium oxide 400 mg tablet RxNorm: 504281 1 Tablet(s) PO daily 05/02/2013 04/26/2014 Inactive furosemide 20 mg tablet RxNorm: 220678 2 Tablet(s) PO daily 05/02/2013 2014 Inactive amlodipine 5 mg tablet RxNorm: 234753 1 Tablet(s) PO BID 05/02/2013 04/26/2014 Inactive sertraline 100 mg tablet RxNorm: 351347 1 Tablet(s) PO BID 05/02/2013 12/13/2013 Inactive ropinirole 1 mg tablet RxNorm: 994874 1 Tablet(s) PO QPM 05/02/2013 04/26/2014 Inactive pantoprazole 40 mg tablet,delayed release RxNorm: 298456 1 Tablet(s) PO daily 05/02/2013 2014 Inactive gabapentin 600 mg tablet RxNorm: 317702 1 Tablet(s) PO BID 05/02/2013 2014 Inactive ferrous fumarate 325 mg (106 mg iron) tablet RxNorm: 292316 1 Tablet(s) PO daily No Start Date 2014 Inactive amlodipine 5 mg tablet RxNorm: 564074 1 Tablet(s) PO BID No Start Date 05/01/2013 Inactive Vitamin B-12 2,500 mcg sublingual tablet RxNorm: 045277 1 Tablet(s) SL daily No Start Date 2014 Inactive Zithromax Z-Bon 250 mg tablet RxNorm: 605229 Tablet(s) PO as directed No Start Date 08/03/2013 Inactive sertraline 100 mg tablet RxNorm: 638133 1 Tablet(s) PO BID No Start Date 05/01/2013 Inactive Hytrin 1 mg tablet RxNorm: 480313 1 Tablet(s) PO BID No Start Date 12/17/2013 Inactive potassium chloride ER 10 mEq capsule,extended release RxNorm: 853812 1 Capsule(s) PO QDAY PRN No Start Date 06/17/2016 Inactive Xanax 0.25 mg tablet RxNorm: 262405 1 Tablet(s) PO HS PRN No Start Date 07/31/2013 Inactive gabapentin 600 mg tablet RxNorm: 784870 1 Tablet(s) PO BID No Start Date 05/01/2013 Inactive ropinirole 1 mg tablet RxNorm: 241445 1 Tablet(s) PO QPM No Start Date 05/01/2013 Inactive Vitamin D3 1,000 unit tablet RxNorm: 616077 2 Tablet(s) PO daily No Start Date 09/11/2015 Inactive furosemide 20 mg tablet RxNorm: 895122 1 Tablet(s) PO BID No Start Date 05/01/2013 Inactive tramadol 50 mg tablet RxNorm: 706414 2 Tablet(s) PO BID No Start Date 05/01/2013 Inactive Carafate 1 gram tablet RxNorm: 534775 Tablet(s) PO dissolve 1 tab QID x 1 week, then TID x 1 week, then BID x 1 week No Start Date 09/06/2013 Inactive pantoprazole 40 mg tablet,delayed release RxNorm: 723676 1 Tablet(s) PO daily No Start Date 05/01/2013 Inactive montelukast 10 mg tablet RxNorm: 587027 1 Tablet(s) PO QHS No Start Date 04/23/2016 Inactive magnesium oxide 400 mg tablet RxNorm: 627924 1 Tablet(s) PO daily No Start Date 05/01/2013 Inactive prednisone 10 mg tablet RxNorm: 347302 1 Tablet(s) PO No Start Date 08/24/2013 Inactive prednisone taper carvedilol 25 mg tablet RxNorm: 928877 1 Tablet(s) PO BID No Start Date 05/01/2013 Inactive baclofen 10 mg tablet RxNorm: 633190 2 Tablet(s) PO daily No Start Date 12/13/2013 Inactive Vitamin B Complex capsule RxNorm: 1 Capsule(s) PO daily No Start Date 2014 Inactive Medication Administered Medication Codes Instructions Start Date Status Kenalog 40 mg/mL suspension for injection RxNorm: 4648523 Milliliter 09/15/2016 Active Kenalog 40 mg/mL suspension for injection RxNorm: 0578715 Milliliter 04/02/2014 No longer Active ceftriaxone 500 mg solution for injection RxNorm: 875596 04/02/2014 No longer Active Kenalog 40 mg/mL suspension for injection RxNorm: 7887090 Milliliter 08/01/2013 No longer Active Immunizations Vaccine [...] left hand ICD-10: M79.642 ICD-9: 729.5 06/19/2016 Essential (primary) hypertension ICD-10: I10 ICD-9: 401.9 04/20/2016 Generalized anxiety disorder ICD-10: F41.1 ICD-9: 308.0 04/20/2016 Major depressive disorder, recurrent, moderate ICD-10: F33.1 ICD-9: 296.32 02/25/2016 Chronic kidney disease, stage 3 (moderate) ICD-10: N18.3 ICD-9: 585.3 02/25/2016 Shortness of breath ICD-10: R06.02 ICD-9: [...] Code Item Item Code Result Date Mayda 466416 MAYDA (MORTEZA) SCREEN NONE DETECTED 06/22/2016 C-Reactive Protein Qnt Crqnt CRP 0.3 mg/dl 06/19/2016 Sed Rate Ord21 ESR 11 mm/hr 06/19/2016 Ra Factor Nrf658 RA FACTOR <10 IU/ml 06/19/2016 Sed Rate Ord21 ESR 14 mm/hr 02/25/2016 C-Reactive Protein Qnt Crqnt CRP 0.3 mg/dl 02/25/2016 Comp Metabolic Ube384 NA 136 mEq/L 02/25/2016 Comp Metabolic Tlx201 K 3.9 mEq/L 02/25/2016 Comp Metabolic Uin281 CL 103 mEq/L 02/25/2016 Comp Metabolic Ljn031 CO2 27.0 mEq/L 02/25/2016 Comp Metabolic Yeh525 ANION GAP 10 02/25/2016 Comp Metabolic Kmr558 GLUCOSE 82 mg/dL 02/25/2016 Comp Metabolic Vsv196 Creat 1.3 mg/dL 02/25/2016 Comp Metabolic Vxz076 eGFR 45 ml/min/1.73m2 02/25/2016 Comp Metabolic Jda822 BUN 13 mg/dL 02/25/2016 Comp Metabolic Ztx704 B/C Ratio 10.3 Ratio 02/25/2016 Comp Metabolic Dmp352 CALCIUM 9.5 mg/dL 02/25/2016 Comp Metabolic Cgt019 ALK PHOS 70 U/L 02/25/2016 Comp Metabolic Cpv475 AST(SGOT) 17 U/L 02/25/2016 Comp Metabolic Kyp000 ALT(SGPT) 13 U/L 02/25/2016 Comp Metabolic Yko689 BILI T 0.4 mg/dL 02/25/2016 Comp Metabolic Zsi341 ALBUMIN 4.2 g/dL 02/25/2016 Comp Metabolic Qch062 TPRO 6.6 g/dL 02/25/2016 Comp Metabolic Yqa484 GLOB 2.4 g/dL 02/25/2016 Comp Metabolic Lql521 A/G Ratio 1.7 Ratio 02/25/2016 Comp Metabolic Wyc733 Osmo 271 mOsmo 02/25/2016 Cbc With Differential Ord2 WBC 5.16 K/ul 02/25/2016 Cbc With Differential Ord2 RBC 4.50 M/ul 02/25/2016 Cbc With Differential Ord2 HGB 13.1 g/dl 02/25/2016 Cbc With Differential Ord2 HCT 38.9 % 02/25/2016 Cbc With Differential Ord2 Neut% 59.3 % 02/25/2016 Cbc With Differential Ord2 Lymph% 31.4 % 02/25/2016 Cbc With Differential Ord2 MCV 86.4 fl 02/25/2016 Cbc With Differential Ord2 Rapides% 6.8 % 02/25/2016 Cbc With Differential Ord2 [...] 1.62 K/ul 02/25/2016 Cbc With Differential Ord2 Rapides ABS# 0.4 K/ul 02/25/2016 Cbc With Differential Ord2 Eos ABS# 0.1 K/ul 02/25/2016 Cbc With Differential Ord2 Baso ABS# 0.0 K/ul 02/25/2016 Tsh Ord6 hTSH II 1.63 uIU/mL 02/25/2016 [place] Spotted Fever Igg/Igm 894091 [place] SPOTTED FEVER IGM EIA . 09/17/2015 [place] Spotted Fever Igg/Igm 056293 RMSF, IGM 0.27 index 09/17/2015 [place] Spotted Fever Igg/Igm 753567 BENIG[place] MT SPOTTED FEVER IGG EIA FLEX . 09/17/2015 [place] Spotted Fever Igg/Igm 497294 RMSF, IGG SCREEN-FLEX Negative 09/17/2015 Ehrlichia Chaffeensis Antibody Igm 397823 EHRLICHIA CHAFFEENSIS IGM < 1:16 09/16/2015 Ehrlichia Chaffeensis Antibody Igg 333871 EHRLICHIA CHAFFEENSIS IGG 1:256 09/16/2015 Lymes Disease Total Antibodies With Western Blot Reflex [id number] B. BURGDORFERI, IGG/IGM 0.10 LI 09/14/2015 Lymes Disease Total Antibodies With Western Blot Reflex [id number] 09/14/2015 Vitamin D 25 Oh Jeu4820 VITAMIN D, 25 HYDROXY 59.60 ng/mL 09/13/2015 Sed Rate Ord21 ESR 10 mm/hr 09/12/2015 Comp Metabolic Leu870 NA 139 mEq/L 09/12/2015 Comp Metabolic Sxu723 K 3.8 mEq/L 09/12/2015 Comp Metabolic Yaf956 CL 103 mEq/L 09/12/2015 Comp Metabolic Ajl021 CO2 27.0 mEq/L 09/12/2015 Comp Metabolic Rjm415 ANION GAP 13 09/12/2015 Comp Metabolic Van525 GLUCOSE 91 mg/dL 09/12/2015 Comp Metabolic Wyx753 Creat 1.2 mg/dL 09/12/2015 Comp Metabolic Uvs648 eGFR 47 ml/min/1.73m2 09/12/2015 Comp Metabolic Uvg295 BUN 20 mg/dL 09/12/2015 Comp Metabolic Tvh625 B/C Ratio 16.3 Ratio 09/12/2015 Comp Metabolic Ewl899 CALCIUM 9.3 mg/dL 09/12/2015 Comp Metabolic Ecb547 ALK PHOS 55 U/L 09/12/2015 Comp Metabolic Twq044 AST(SGOT) 19 U/L 09/12/2015 Comp Metabolic Jdh720 ALT(SGPT) 14 U/L 09/12/2015 Comp Metabolic Cpp660 BILI T 0.6 mg/dL 09/12/2015 Comp Metabolic Wui147 ALBUMIN 4.3 g/dL 09/12/2015 Comp Metabolic Kuw650 TPRO 6.8 g/dL 09/12/2015 Comp Metabolic Bjk520 GLOB 2.5 g/dL 09/12/2015 Comp Metabolic Ybw918 A/G Ratio 1.8 Ratio 09/12/2015 Comp Metabolic Niq243 Osmo 280 mOsmo 09/12/2015 B12 Xxr436 B12 >1500.00 pg/ml 09/12/2015 Cbc With Differential Ord2 WBC 4.22 K/ul 09/12/2015 Cbc With Differential Ord2 RBC 4.70 M/ul 09/12/2015 Cbc With Differential Ord2 HGB 13.6 g/dl 09/12/2015 Cbc With Differential Ord2 HCT 41.1 % 09/12/2015 Cbc With Differential Ord2 Neut% 60.7 % 09/12/2015 Cbc With Differential Ord2 Lymph% 31.5 % 09/12/2015 Cbc With Differential Ord2 MCV 87.4 fl 09/12/2015 Cbc With Differential Ord2 Rapides% 5.9 % 09/12/2015 Cbc With Differential Ord2 MCH 28.9 pg 09/12/2015 Cbc With Differential Ord2 MCHC 33.1 pg 09/12/2015 Cbc With Differential Ord2 Eos% 1.2 % 09/12/2015 Cbc With Differential Ord2 PLT 215 K/ul 09/12/2015 Cbc With Differential Ord2 Baso% 0.7 % 09/12/2015 Cbc With Differential Ord2 RDW 13.4 % 09/12/2015 Cbc With Differential Ord2 Neut ABS# 2.56 K/ul 09/12/2015 Cbc With Differential Ord2 Lymph ABS# 1.33 K/ul 09/12/2015 Cbc With Differential Ord2 Rapides ABS# 0.3 K/ul 09/12/2015 Cbc With Differential [...] Full Exam - General 1994 Neurologic coordination Cadoee-nlop-edakad testing - left: dysmetria 04/20/2016 None Full Exam - General 1994 Neurologic coordination Zysyxn-xzaz-amzdqn testing - right: dysmetria 04/20/2016 None Full [...] Full Exam - General 1994 Neurologic coordination Myaqkn-rkgk-izpexb testing - left: dysmetria 02/25/2016 None Full Exam - General 1994 Neurologic coordination Omlnww-owhy-gzpbtz testing - right: dysmetria 02/25/2016 None Full [...] Full Exam - General 1994 Neurologic coordination Dnmorq-qcty-jerryv testing - left: dysmetria 01/28/2016 None Full Exam - General 1994 Neurologic coordination Jgonkl-dxyl-cjyvdz testing - right: dysmetria 01/28/2016 None Full [...] palp - head/face Lesion: excoriation 07/16/2014 right holiness, redness right eyelid Full Exam - Dermatology [...] 1995 Ears/Nose/Throat oral cavity/pharynx/larynx Overall: hypopharynx benign 04/18/2013 None Full Exam - General 1995 Ears/Nose/Throat oral cavity/pharynx/larynx Overall: no masses 04/18/2013 [...] Procedure Codes Date THER/PROPH/DIAG INJ SC/IM CPT-4: 82886Xzvshns 09/15/2016 TRIAMCINOLONE ACET INJ NOS CPT-4: W7415Lixdjby 09/15/2016 ADMIN INFLUENZA VIRUS VAC CPT-4: L9139Ydmgsii 01/08/2016 ADMIN PNEUMOCOCCAL VACCINE SNOMED CT: 59098779 CPT-4: P4842Eczypph 01/08/2016 PNEUMOCOCCAL VACC 13 RIVERA IM Formatting Model/CDA Sections, Assigned to/Aliya Muñoz SNOMED CT: 84399410 CPT-4: 25071Fappmxv 01/08/2016 FLU VACC 4 RIVERA 3 YRS PLUS IM SNOMED CT: 33840663 CPT-4: 68067Pxkatqn 01/08/2016 THER/PROPH/DIAG INJ SC/IM CPT-4: 88769Kymsvkn 04/02/2014 TRIAMCINOLONE ACET INJ NOS CPT-4: V1273Ycbflqe 04/02/2014 ROCEPHIN, PER 250 MG CPT-4: R2078Jupahta 04/02/2014 TRIAMCINOLONE ACET INJ NOS CPT-4: C9619Trtmrap 08/01/2013 THER/PROPH/DIAG INJ SC/IM CPT-4: 95263Ybkkgwl 08/01/2013 Vital Signs Date Vital 04/20/2016 Blood Pressure 1: 144/86 Code: 8480-6 BMI: 34.3 Code: 36229-2 Heart Rate 1: 68 bpm Height: 5'5" SpO2: 97% Weight: 206 lbs 02/25/2016 Blood Pressure 1: 122/82 Code: 8480-6 BMI: 34.4 Code: 77229-1 Heart Rate 1: 86 bpm Height: 5'5" SpO2: 94% Weight: 207 lbs 01/28/2016 Blood Pressure 1: 128/86 Code: 8480-6 BMI: 33.3 Code: 23207-4 Heart Rate 1: 86 bpm Height: 5'5" SpO2: 96% Weight: 200 lbs 11/14/2015 Blood Pressure 1: 138/88 Code: 8480-6 Blood Pressure 1: 140/90 Code: 8480-6 BMI: 33.3 Code: 15583-2 Heart Rate 1: 98 bpm Height: 5'5" SpO2: 97% Weight: 200 lbs 10/10/2015 Blood Pressure 1: 132/80 Code: 8480-6 BMI: 33.3 Code: 02693-0 Heart Rate 1: 74 bpm Height: 5'5" SpO2: 96% Weight: 200 lbs 09/12/2015 Blood Pressure 1: 148/90 Code: 8480-6 BMI: 32.9 Code: 66965-7 Heart Rate 1: 94 bpm Height: 5'5" SpO2: 97% Weight: 198 lbs 04/09/2015 Blood Pressure 1: 130/84 Code: 8480-6 Blood Pressure 1: 160/82 Code: 8480-6 BMI: 32.4 Code: 06438-5 Heart Rate 1: 74 bpm Height: 5'5" SpO2: 95% Weight: 195 lbs 10/05/2014 Blood Pressure 1: 140/80 Code: 8480-6 BMI: 30.5 Code: 54506-4 Heart Rate 1: 79 bpm Height: 5'5" SpO2: 98% Weight: 183 lbs 09/07/2014 Blood Pressure 1: 142/96 Code: 8480-6 BMI: 32.1 Code: 62343-2 Heart Rate 1: 72 bpm Height: 5'5" SpO2: 98% Temperature: 36.5 (C) / 97.7 (F) Weight: 193 lbs 07/16/2014 Blood Pressure 1: 138/82 Code: 8480-6 BMI: 31.8 Code: 77258-1 Heart Rate 1: 76 bpm Height: 5'5" Weight: 191 lbs 04/02/2014 Blood Pressure 1: 148/90 Code: 8480-6 BMI: 33.8 Code: 76938-1 Heart Rate 1: 68 bpm Height: 5'5" Temperature: 36.9 (C) / 98.4 (F) Weight: 203 lbs 12/14/2013 Blood Pressure 1: 140/88 Code: 8480-6 BMI: 35.3 Code: 81751-5 Heart Rate 1: 91 bpm Height: 5'5" SpO2: 97% Weight: 212 lbs 08/01/2013 Blood Pressure 1: 126/68 Code: 8480-6 BMI: 35.1 Code: 88854-1 Heart Rate 1: 76 bpm Height: 5'5" Temperature: 36.7 (C) / 98.1 (F) Weight: 211 lbs 05/02/2013 Blood Pressure 1: 118/86 Code: 8480-6 BMI: 34.9 Code: 05648-3 Heart Rate 1: 76 bpm Height: 5'5" Weight: 209 lbs 8 oz 04/18/2013 Blood Pressure 1: 118/60 Code: 8480-6 BMI: 35.3 Code: 72763-2 Heart Rate 1: 68 bpm Height: 5'5" [...] data Encounters Encounter Performer Location Codes Date ([id number]) 82356 EST. PATIENT, LEVEL IV Diagnosis: Essential (primary) hypertension[ICD10: I10] Diagnosis: Generalized anxiety disorder[ICD10: F41.1] Marilyn Lao MD, [facility] CPT-4: 49274 04/20/2016 [id number]) 24828 EST. PATIENT, LEVEL IV Diagnosis: Essential (primary) hypertension[ICD10: I10] Diagnosis: Chronic kidney disease, stage 3 (moderate)[ICD10: N18.3] Diagnosis: Generalized anxiety disorder[ICD10: F41.1] Diagnosis: Major depressive disorder, recurrent, moderate[ICD10: F33.1] Diagnosis: Shortness of breath[ICD10: R06.02] Noa Lao MD, [facility] CPT- 4: 05231 02/25/2016 ([id number]) 08111 EST. PATIENT, LEVEL IV Diagnosis: Generalized anxiety disorder[ICD10: F41.1] Diagnosis: Major depressive disorder, recurrent, moderate[ICD10: F33.1] Diagnosis: Essential (primary) hypertension[ICD10: I10] Diagnosis: Restless legs syndrome[ICD10: G25.81] Diagnosis: Myalgia[ICD10: M79.1] Noa Lao MD, [facility] CPT-4: 17514 01/28/2016 ([id number]) 04821 EST. PATIENT, LEVEL III Diagnosis: Essential (primary) hypertension[ICD10: I10] Diagnosis: Insomnia, unspecified[ICD10: G47.00] Noa Lao MD, [facility] CPT-4: 78590 11/14/2015 ([id number]) 02513 EST. 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 PATIENT, LEVEL IV Diagnosis: Bitten or stung by nonvenomous insect and other nonvenomous arthropods, initial encounter[ICD10: W57.XXXA] Diagnosis: Other fatigue[ICD10: R53.83] Diagnosis: Vitamin D deficiency, unspecified[ICD10: E55.9] Diagnosis: Other vitamin B12 deficiency anemias[ICD10: D51.8] Diagnosis: Essential (primary) hypertension[ICD10: I10] Diagnosis: Iron deficiency[ICD10: E61.1] Noa Lao MD, [facility] CPT-4: 87339 09/12/2015 ([id number]) 01866 EST. PATIENT, LEVEL III Diagnosis: Essential (primary) hypertension[ICD10: I10] Diagnosis: Chronic kidney disease, stage 3 (moderate)[ICD10: N18.3] Noa Lao MD, [facility] CPT-4: 99032 04/09/2015 ([id number]) 32256 EST. PATIENT, LEVEL III Diagnosis: ESSENTIAL HYPERTENSION[ICD9: 401.9] Noa Lao MD, [facility] CPT-4: 41500 10/05/2014 ([id number]) 14781 EST. PATIENT, LEVEL IV Diagnosis: Easy bruising[ICD9: 782.9] Diagnosis: Iron deficiency anemia[ICD9: 280.9] Diagnosis: ESSENTIAL HYPERTENSION[ICD9: 401.9] Diagnosis: Chronic kidney disease, stage 3[ICD9: 585.3] Noa Lao MD, [facility] CPT-4: 41113 09/07/2014 ([id number]) 31140 EST. PATIENT, LEVEL III Diagnosis: Shingles[ICD9: 053.9] Marilyn Lao MD, [facility] CPT-4: 23631 07/16/2014 ([id number]) 40957 EST. PATIENT, LEVEL III Diagnosis: PNEUMONIA (CAP)[ICD9: 486] Diagnosis: COUGH[ICD9: 786.2] Marilyn Lao MD, [facility] CPT-4: 37130 04/02/2014 ([id number]) 21600 EST. PATIENT, LEVEL III Diagnosis: ESSENTIAL HYPERTENSION[ICD9: 401.9] Diagnosis: Rib pain on left side[ICD9: 786.50] Diagnosis: EDEMA[ICD9: 782.3] Noa Lao MD, [facility] CPT-4: 12697 12/14/2013 ([id number]) 66254 EST. PATIENT, LEVEL IV Diagnosis: ESOPHAGEAL REFLUX[ICD9: 530.81] Diagnosis: Urge incontinence[ICD9: 788.31] Diagnosis: Elbow pain, right[ICD9: 719.42] Diagnosis: Snoring[ICD9: 786.09] Marilyn Lao MD, [facility] CPT-4: 89969 08/01/2013 ([id number]) 75417 EST. PATIENT, LEVEL IV Diagnosis: ESSENTIAL HYPERTENSION[SNOMED: 30589845] Diagnosis: EDEMA[ICD9: 782.3] Diagnosis: Chronic renal insufficiency, stage III (moderate)[ICD9: 585.3] Diagnosis: HYPERLIPIDEMIA[ICD9: 272.4] Marilyn Lao MD, [facility] CPT-4: 19821 05/02/2013 ([id number]) 23971 EST. PATIENT, LEVEL IV Diagnosis: ESSENTIAL HYPERTENSION[SNOMED: 48172503] Diagnosis: Restless leg[ICD9: 333.94] [facility] CPT-4: 11026 04/18/2013 Plan of Care Planned Activity Notes Codes Status Date Patient Education: Patient Medication Summary Completed 09/15/2016 Appointment: Marilyn Lao WPtel: [phone] [facility] (15 min) Moderate 08/19/2016 Patient Education: [...] current medications. 04/20/2016 Appointment: Marilyn Lao WPtel: [facility] (30 min) Complex 04/20/2016 Patient Education: Patient Medication Summary Completed 04/20/2016 Patient Education: Obesity Completed 04/20/2016 Patient Education: Hypertension Completed 04/20/2016 Appointment: Noa Orlando WPtel: [phone] (30 min) Complex 03/16/2016 Referral: Ta Santacruz [...] for follow up. Chronic renal disease-check labs Plzhffx-bbiqwivzbq-smbwwzar with cymbalta-continue same dose for now -may take xanax TID PRNMultiple joint pain- check labs including inflammatory markers 02/25/2016 Appointment: Noa Orlando WPtel: [phone] [phone] (30 min) Complex 02/25/2016 Patient Education: Patient Medication Summary Completed 02/25/2016 Patient Education: Obesity Completed 02/25/2016 Patient Education: Hypertension Completed 02/25/2016 Care Plan: Referral Order SNOMED-CT : [id number] Pending 02/25/2016 Visit Plan: Anxiety/Depression - the [...] change in blood pressure readings at home.Restless oqp-ezqnqd-bwsahhsq requip to twice daily-monitor symptoms Myalgias-stop pravastatin 01/28/2016 Appointment: Noa Orlando WPtel[phone] (30 min) Complex 01/28/2016 Patient Education: Patient [...] Completed 10/10/2015 App[facility]ment[phone] (15 min) Moderate 10/08/2015 Visit Plan: Hypertension - well controlled - continue with current medications, continue with no added salt diet. Pt has been encouraged to exercise daily.The pt has been advised to call the office if there are any acute concerns about change in blood pressure readings at home.Iron deficiency-B12 deficiency-check labsTick hbty-buuwlju-xlfqk tick panel 09/12/2015 Appointment: [facility] [place] [phone] (15 min) Moderate 09/12/2015 Patient Education: Patient [...] symptoms Iron deficiency anemia-stopped oral iron per senior python developer in March-recheck labsHTN-elevated today-monitor twice daily x [...] Care Plan: COMPLETE CBC AUTOMATED LOINC : 41043-6 Ordered 09/07/2014 Visit Plan: Shingles - Herpes [...] Summary Completed 07/16/2014 Appointment: Marilyn Lao WPtel: [facility] Follow up 04/16/2014 Appointment: Sick 04/03/2014 Visit Plan: Pneumonia - Pt has been diagnosed with pneumonia by physical exam. Antibiotics started. The pt is aware of the diagnosis and the need for acute treatment of this illness. 04/02/2014 Patient Education: Patient Medication Summary Completed 04/02/2014 Appointment: Marilyn Lao WPtel: [facility] Sick 12/27/2013 Patient Education: Patient Medication [...] to further attempt to reduce peripheral edema.Night imzhss-rcurbor-iyxxy labs 12/14/2013 Appointment: Follow up 12/14/2013 Patient Education: Patient Medication Summary Completed 12/14/2013 Patient Education: Hypertension Completed 12/14/2013 Appointment: Darion Noa WPtel: [phone] Sick 12/01/2013 Appointment: Marilyn Lao WPtel: [facility] Sick 11/30/2013 Visit Plan: Allergies - [...] monitor symptoms. 08/01/2013 Appointment: Marilyn Lao WPtel: [facility] Follow up 08/01/2013 Patient Education: Patient [...] as able. 05/02/2013 Appointment: Marilyn Lao WPtel: [facility] Follow up 05/02/2013 Patient Education: Patient [...] orange juice. 04/18/2013 Appointment: Marilyn Lao WPtel: [facility] [place] New Patient 04/18/2013 Patient Education: Patient Medication [...] in blood pressure readings at home. Restless dqr-jubtfk-asdfsrsz requip to twice daily-monitor symptoms Myalgias-stop pravastatin [...] for follow up. Chronic renal disease-check labs Owdhswg-ezpswjkixd-gfjndqlm with cymbalta-continue same dose for now -may [...] at home. Iron deficiency-B12 deficiency-check labs Tick nwto-axgswfh-gxcxs tick panel . Hypertension - well controlled [...] symptoms Iron deficiency anemia-stopped oral iron per senior python developer in March-recheck labs HTN-elevated today-monitor twice daily [...] further attempt to reduce peripheral edema. Night mpdymk-jtiaiea-kyqal labs
--- OUTSIDE RECORDS SUMMARY | 2018-11-04 15:42 | XMS REPORT | CCD ---
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 08/01/2013 Employment Unknown Retired doing as needed working for the formerly [employer]. 05/02/2013 Marital status Unknown 04/18/[address]: 226368682 Never drinks alcohol 04/18/2013 Has the patient [...] Codes Condition Status Onset Date Resolved Date Chronic kidney disease, stage 3 (moderate) ICD-9: [...] Problems Condition Codes Effective Dates Condition Status Chronic kidney disease, stage 3 (moderate) ICD-9: [...] Date Stop Date Status Fill Instructions Xanax 0.5 mg tablet RxNorm: 075521 1 Tablet(s) PO UD 1/2 AM, 1/2 noon if needed and 1 hs 07/27/2018 11/23/2018 Active Tessalon Perles 100 mg capsule RxNorm: 584369 1 Capsule(s) PO TID as needed cough 07/27/2018 10/24/2018 Active doxycycline hyclate 100 mg tablet RxNorm: 5729073 1 Tablet(s) PO BID 07/12/2018 07/25/2018 Inactive ropinirole 1 mg tablet RxNorm: 184277 TAKE TWO TABLETS BY MOUTH EVERY NIGHT AT BEDTIME 07/04/2018 03/30/2019 Active Carafate 1 gram tablet RxNorm: 743847 TAKE ONE TABLET BY MOUTH FOUR TIMES A DAY 07/04/2018 10/01/2018 Active montelukast 10 mg tablet RxNorm: 653667 TAKE ONE TABLET BY MOUTH EVERY NIGHT AT BEDTIME 07/04/2018 03/30/2019 Active losartan 100 mg tablet RxNorm: 649196 1 Tablet(s) PO daily 05/04/2018 01/28/2019 Active tramadol 50 mg tablet RxNorm: 927481 2 Tablet(s) PO BID 04/26/2018 06/24/2018 Inactive alprazolam 0.5 mg tablet RxNorm: 664973 1/2-1 Tablet(s) PO TID PRN as needed 04/04/2018 06/01/2018 Inactive Xanax 0.5 mg tablet RxNorm: 494867 1 Tablet(s) PO TID PRN as needed 04/04/2018 07/26/2018 Inactive tramadol 50 mg tablet RxNorm: 674038 2 Tablet(s) PO BID 12/01/2017 01/29/2018 Inactive Cymbalta 60 mg capsule,delayed release RxNorm: 381035 TAKE ONE CAPSULE BY MOUTH DAILY 11/10/2017 11/04/2018 Active furosemide 40 mg tablet RxNorm: 286343 1 Tablet(s) PO daily 10/26/2017 10/20/2018 Active alprazolam 0.5 mg tablet RxNorm: 311560 1/2-1 Tablet(s) PO TID PRN as needed 10/12/2017 12/10/2017 Inactive Ciclodan 8 % topical solution RxNorm: 0188690 1 Application TOP daily x 7 days, clean off with alcohol then restart cycle of application until fungal infection is completely cleared 10/06/2017 01/03/2018 Inactive omeprazole 20 mg capsule,delayed release RxNorm: 291574 TAKE ONE CAPSULE BY MOUTH DAILY 10/04/2017 01/24/2018 Inactive losartan 100 mg tablet RxNorm: 231065 1 Tablet(s) PO daily 09/27/2017 03/24/2018 Inactive Xanax 0.25 mg tablet RxNorm: 520980 1 Tablet(s) PO TID PRN as needed 08/13/2017 10/09/2017 Inactive Xanax 0.5 mg tablet RxNorm: 165813 1 Tablet(s) PO TID PRN as needed 07/23/2017 11/18/2017 Inactive ropinirole 1 mg tablet RxNorm: 462354 TAKE TWO TABLETS BY MOUTH EVERY NIGHT AT BEDTIME 06/28/2017 06/22/2018 Inactive montelukast 10 mg tablet RxNorm: 714701 TAKE ONE TABLET BY MOUTH EVERY NIGHT AT BEDTIME 06/28/2017 06/22/2018 Inactive furosemide 20 mg tablet RxNorm: 545888 TAKE TWO TABLETS BY MOUTH DAILY FOR 7 DAYS THEN TAKE ONE TABLET BY MOUTH DAILY 06/28/2017 10/01/2017 Inactive losartan 50 mg tablet RxNorm: 506740 1 Tablet(s) PO daily 06/01/2017 09/26/2017 Inactive labetalol 100 mg tablet RxNorm: 130479 TAKE ONE TABLET BY MOUTH TWICE A DAY 05/26/2017 05/30/2017 Inactive labetalol 100 mg tablet RxNorm: 475736 1 Tablet(s) PO BID 05/26/2017 05/20/2018 Inactive Protonix 40 mg tablet,delayed release RxNorm: 966351 1 Tablet(s) PO daily 05/26/2017 05/20/2018 Inactive amlodipine 5 mg tablet RxNorm: 015702 TAKE ONE TABLET BY MOUTH TWICE A DAY 05/26/2017 09/26/2017 Inactive Protonix 40 mg tablet,delayed release RxNorm: 290354 1 Tablet(s) PO daily 05/11/2017 05/25/2017 Inactive Carafate 1 gram tablet RxNorm: 688867 1 Tablet(s) PO QID 05/11/2017 09/07/2017 Inactive Cymbalta 60 mg capsule,delayed release RxNorm: 627372 TAKE ONE CAPSULE BY MOUTH DAILY 05/05/2017 10/31/2017 Inactive Xanax 0.25 mg tablet RxNorm: 625767 1 Tablet(s) PO TID PRN as needed 02/09/2017 06/07/2017 Inactive Cymbalta 60 mg capsule,delayed release RxNorm: 073526 TAKE ONE CAPSULE BY MOUTH DAILY 10/28/2016 04/25/2017 Inactive Xanax 0.25 mg tablet RxNorm: 519762 1 Tablet(s) PO TID PRN as needed 10/08/2016 12/06/2016 Inactive NEED TO GIVE #90 WITH NEXT REFILL Kenalog 40 mg/mL suspension for injection RxNorm: 2416853 Milliliter(s) Inj 09/15/2016 09/15/2016 Inactive tramadol 50 mg tablet RxNorm: 225944 Tablet(s) TAKE 2 TABLETS BY MOUTH TWICE DAILY 08/18/2016 02/12/2017 Inactive Generic For:ULTRAM 50 MG TABLET N O T I C E Last quantity doesn't match original quantity(Response to an electronic controlled substance refill request - RxReferenceNumber: [id number]) potassium chloride ER 10 mEq capsule,extended release RxNorm: 772545 TAKE ONE CAPSULE BY MOUTH DAILY NEEDED 08/03/2016 01/29/2017 Inactive potassium chloride ER 10 mEq capsule,extended release RxNorm: 566563 1 Capsule(s) PO QDAY PRN 06/18/2016 08/02/2016 Inactive furosemide 20 mg tablet RxNorm: 873712 1 Tablet(s) PO daily as needed for swelling 06/18/2016 06/12/2017 Inactive 2 daily x 1 week then daily Carafate 1 gram tablet RxNorm: 688729 1 Tablet(s) PO daily 04/24/2016 04/18/2017 Inactive Cymbalta 60 mg capsule,delayed release RxNorm: 063088 1 Capsule(s) PO daily 04/24/2016 10/20/2016 Inactive montelukast 10 mg tablet RxNorm: 089213 1 Tablet(s) PO QHS 04/24/2016 04/18/2017 Inactive omeprazole 20 mg capsule,delayed release RxNorm: 756113 Capsule(s) 1 Capsule(s) PO daily 04/24/2016 05/31/2017 Inactive ropinirole 1 mg tablet RxNorm: 706436 2 Tablet(s) PO QHS 04/24/2016 04/18/2017 Inactive furosemide 20 mg tablet RxNorm: 723857 1 Tablet(s) PO daily as needed for swelling 04/24/2016 06/17/2016 Inactive labetalol 100 mg tablet RxNorm: 023355 1 Tablet(s) PO BID 04/24/2016 04/18/2017 Inactive amlodipine 5 mg tablet RxNorm: 829072 Tablet(s) TAKE 1 TABLET BY MOUTH TWICE DAILY 04/24/2016 04/18/2017 Inactive Transferring from [facility] Xanax 0.25 mg tablet RxNorm: 482954 1 Tablet(s) PO TID PRN as needed 02/25/2016 03/25/2016 Inactive NEED TO GIVE #90 WITH NEXT REFILL Xanax 0.25 mg tablet RxNorm: 606756 1 Tablet(s) PO BID PRN as needed 02/19/2016 02/24/2016 Inactive [SAVINGS FOR UNINSURED PATIENTS -- BIN:226067, PCN: ASPROD1, Group: AME08, ID# [id number], Process claim through Not[employer]ix[employer], for questions: . THIS IS NOT INSURANCE.] Cymbalta 60 mg capsule,delayed release RxNorm: 749106 1 Capsule(s) PO daily 01/28/2016 04/23/2016 Inactive ropinirole 1 mg tablet RxNorm: 139380 1 Tablet(s) PO BID TAKE 1 TABLET BY MOUTH DAILY EVERY NIGHT 01/28/2016 04/23/2016 Inactive Generic For:REQUIP 1 MG TABLET tramadol 50 mg tablet RxNorm: 362354 Tablet(s) TAKE 2 TABLETS BY MOUTH TWICE DAILY 01/16/2016 07/13/2016 Inactive Generic For:ULTRAM 50 MG TABLET N O T I C E Last quantity doesn't match original quantity(Response to an electronic controlled substance refill request [id number]) omeprazole 20 mg capsule,delayed release RxNorm: 688413 1 Tablet(s) PO daily 1 Capsule(s) PO daily 12/11/2015 04/23/2016 Inactive pravastatin 10 mg tablet RxNorm: 533454 1 Tablet(s) PO QHS TAKE 1 TABLET BY MOUTH EVERY NIGHT 11/28/2015 01/27/2016 Inactive Generic For:PRAVACHOL 10 MG TABLET furosemide 20 mg tablet RxNorm: 030959 1 Tablet(s) PO daily as needed for swelling 11/12/2015 04/23/2016 Inactive pravastatin 10 mg tablet RxNorm: 624826 1 Tablet(s) PO QHS TAKE 1 TABLET BY MOUTH EVERY NIGHT 11/07/2015 11/27/2015 Inactive Generic For:PRAVACHOL 10 MG TABLET Xanax 0.25 mg tablet RxNorm: 870082 1 Tablet(s) PO BID PRN as needed 10/28/2015 01/25/2016 Inactive [SAVINGS FOR UNINSURED PATIENTS -- BIN:784671, PCN: ASPROD1, Group: AME08, ID# [id number], Process claim through [employer], for questions: . THIS IS NOT INSURANCE.] Viberzi 75 mg tablet RxNorm: 9357502 1 Tablet(s) PO BID 10/10/2015 10/10/2015 Inactive doxycycline hyclate 100 mg tablet RxNorm: 6358225 1 Tablet(s) PO BID 10/10/2015 10/23/2015 Inactive Vitamins B Complex capsule RxNorm: 1 Capsule(s) PO daily 09/12/2015 No Stop Date Active Vitamin D3 1,000 unit tablet RxNorm: 846999 3-4 Tablet(s) PO daily 09/12/2015 No Stop Date Active Augmentin 500 mg-125 mg tablet RxNorm: 239555 1 Tablet(s) PO BID 07/09/2015 2015 Inactive probiotic one bid x 7 days Augmentin 500 mg-125 mg tablet RxNorm: 958589 1 Tablet(s) PO BID 07/09/2015 07/08/2015 Inactive Xanax 0.25 mg tablet RxNorm: 124178 1 Tablet(s) PO BID PRN as needed 07/01/2015 09/28/2015 Inactive [SAVINGS FOR UNINSURED PATIENTS -- BIN:995504, PCN: ASPROD1, Group: AME08, ID# [id number], Process claim through [employer], for questions: . THIS IS NOT INSURANCE.] sertraline 100 mg tablet RxNorm: 234951 TAKE 1 TABLET BY MOUTH TWICE DAILY 07/01/2015 01/27/2016 Inactive Generic For:*ZOLOFT 100MG TABLET N O T I C E Last quantity doesn't match original quantity amlodipine 5 mg tablet RxNorm: 960836 TAKE 1 TABLET BY MOUTH TWICE DAILY 06/26/2015 04/23/2016 Inactive Generic For:NORVASC 5 MG TABLET N O T I C E Last quantity doesn't match original quantity amlodipine 5 mg tablet RxNorm: 330116 Tablet(s) 1 Tablet(s) PO BID 06/25/2015 06/25/2015 Inactive ropinirole 1 mg tablet RxNorm: 708568 TAKE 1 TABLET BY MOUTH DAILY EVERY NIGHT 05/22/2015 01/27/2016 Inactive Generic For:REQUIP 1 MG TABLET ropinirole 1 mg tablet RxNorm: 152722 Tablet(s) 1 Tablet(s) PO QPM 05/22/2015 05/21/2015 Inactive pravastatin 10 mg tablet RxNorm: 244672 TAKE 1 TABLET BY MOUTH EVERY NIGHT 05/14/2015 11/06/2015 Inactive Generic For:PRAVACHOL 10 MG TABLET tramadol 50 mg tablet RxNorm: 502431 2 Tablet(s) PO BID 04/25/2015 01/18/2016 Inactive labetalol 100 mg tablet RxNorm: 203089 1 Tablet(s) PO BID 04/09/2015 04/23/2016 Inactive omeprazole 20 mg capsule,delayed release RxNorm: 839702 1 Tablet(s) PO daily 1 Capsule(s) PO daily 03/20/2015 12/10/2015 Inactive Carafate 1 gram tablet RxNorm: 315934 Tablet(s) PO UD 4 times daily x 1 week and then PRN 02/27/2015 02/21/2016 Inactive Xanax 0.25 mg tablet RxNorm: 743028 1 Tablet(s) PO BID PRN as needed 02/08/2015 06/06/2015 Inactive [SAVINGS FOR UNINSURED PATIENTS -- BIN:698356, PCN: ASPROD1, Group: AME08, ID# [id number], Process claim through [employer], for questions: . THIS IS NOT INSURANCE.] furosemide 20 mg tablet RxNorm: 670715 1 Tablet(s) PO daily as needed for swelling 10/25/2014 02/21/2015 Inactive ok to fill by Dr. Franklin 10-25-14 Xanax 0.25 mg tablet RxNorm: 871535 1 Tablet(s) PO BID PRN as needed 09/25/2014 01/21/2015 Inactive [SAVINGS FOR UNINSURED PATIENTS -- BIN:855879, PCN: ASPROD1, Group: AME08, ID# [id number], Process claim through [employer], for questions: . THIS IS NOT INSURANCE.] pravastatin 10 mg tablet RxNorm: 360006 TAKE 1 TABLET BY MOUTH EVERY NIGHT 09/06/2014 04/03/2015 Inactive Generic For:PRAVACHOL 10 MG TABLET tramadol 50 mg tablet RxNorm: 040703 TAKE 2 TABLETS BY MOUTH TWICE DAILY 08/02/2014 01/15/2016 Inactive Generic For:ULTRAM 50 MG TABLET N O T I C E Last quantity doesn't match original quantity(Response to an electronic controlled substance refill request - RxReferenceNumber: [id number]) tramadol 50 mg tablet RxNorm: 273880 2 Tablet(s) PO BID 08/01/2014 08/02/2014 Inactive acyclovir 400 mg tablet RxNorm: 853695 2 Tablet(s) PO QID 07/16/2014 07/25/2014 Inactive sertraline 100 mg tablet RxNorm: 673123 1 Tablet(s) PO BID 1 Tablet(s) PO BID 06/13/2014 12/09/2014 Inactive sertraline 100 mg tablet RxNorm: 699034 1 Tablet(s) PO BID 06/13/2014 06/12/2014 Inactive magnesium oxide 400 mg tablet RxNorm: 328410 1 Tablet(s) PO daily 05/25/2014 2014 Inactive ropinirole 1 mg tablet RxNorm: 175492 1 Tablet(s) PO QPM 05/25/2014 05/19/2015 Inactive amlodipine 5 mg tablet RxNorm: 199826 1 Tablet(s) PO BID 05/25/2014 05/19/2015 Inactive prednisone 10 mg tablets in a dose pack RxNorm: 079545 1 Tablet(s) PO UD 04/06/2014 04/10/2014 Inactive 6-5-4-3-2-1 Xanax 0.25 mg tablet RxNorm: 912573 1 Tablet(s) PO BID PRN as needed 04/04/2014 07/02/2014 Inactive [SAVINGS FOR UNINSURED PATIENTS -- BIN:874345, PCN: ASPROD1, Group: AME08, ID# [id number], Process claim through [employer], for questions: . THIS IS NOT INSURANCE.] prednisone 20 mg tablet RxNorm: 319548 3 Tablet(s) PO daily 04/02/2014 04/05/2014 Inactive [SAVINGS FOR UNINSURED PATIENTS -- BIN:423166, PCN: ASPROD1, Group: AME08, ID# [id number], Process claim through [employer], for questions: . THIS IS NOT INSURANCE.] cefdinir 300 mg capsule RxNorm: 041838 1 Capsule(s) PO BID 04/02/2014 04/11/2014 Inactive [SAVINGS FOR UNINSURED PATIENTS -- BIN:958468, PCN: ASPROD1, Group: AME08, ID# [id number], Process claim through [employer], for questions: . THIS IS NOT INSURANCE.] Kenalog 40 mg/mL suspension for injection RxNorm: 4177339 Milliliter(s) Inj 04/02/2014 04/02/2014 Inactive [SAVINGS FOR UNINSURED PATIENTS -- BIN:548847, PCN: ASPROD1, Group: AME08, ID# [id number], Process claim through [employer], for questions: . THIS IS NOT INSURANCE.] ceftriaxone 500 mg solution for injection RxNorm: 708812 Inj 04/02/2014 04/02/2014 Inactive [SAVINGS FOR UNINSURED PATIENTS -- BIN:194935, PCN: ASPROD1, Group: AME08, ID# [id number], Process claim through [employer], for questions: . THIS IS NOT INSURANCE.] albuterol sulfate 2.5 mg/0.5 mL solution for nebulization RxNorm: 113537 1 treatment INH QID and as needed for dyspnea 04/02/2014 05/31/2014 Inactive [SAVINGS FOR UNINSURED PATIENTS -- BIN:009631, PCN: ASPROD1, Group: AME08, ID# [id number], Process claim through [employer], for questions: . THIS IS NOT INSURANCE.] azithromycin 500 mg tablet RxNorm: 431246 1 Tablet(s) PO daily 04/02/2014 04/06/2014 Inactive [SAVINGS FOR UNINSURED PATIENTS -- BIN:937810, PCN: ASPROD1, Group: AME08, ID# [id number], Process claim through [employer], for questions: . THIS IS NOT INSURANCE.] omeprazole 20 mg capsule,delayed release RxNorm: 503084 1 Tablet(s) PO daily 1 Capsule(s) PO daily 02/26/2014 06/25/2014 Inactive Xanax 0.25 mg tablet RxNorm: 673609 1 Tablet(s) PO BID PRN as needed 02/01/2014 04/03/2014 Inactive [SAVINGS FOR UNINSURED PATIENTS -- BIN:654747, PCN: ASPROD1, Group: AME08, ID# [id number], Process claim through [employer], for questions: . THIS IS NOT INSURANCE.] Xanax 0.25 mg tablet RxNorm: 244875 1 Tablet(s) PO HS PRN as needed 01/04/2014 01/31/2014 Inactive [SAVINGS FOR UNINSURED PATIENTS -- BIN:806124, PCN: ASPROD1, Group: AME08, ID# [id number], Process claim through [employer], for questions: . THIS IS NOT INSURANCE.] pravastatin 10 mg tablet RxNorm: 807597 1 Tablet(s) PO QHS 12/21/2013 12/20/2013 Inactive pravastatin 10 mg tablet RxNorm: 300715 1 Tablet(s) PO QHS 12/21/2013 07/18/2014 Inactive [SAVINGS FOR UNINSURED PATIENTS -- BIN:277795, PCN: ASPROD1, Group: AME08, ID# [id number], Process claim through [employer], for questions: . THIS IS NOT INSURANCE.] Hytrin 1 mg tablet RxNorm: 932704 1 Tablet(s) PO BID 12/21/2013 04/08/2015 Inactive [SAVINGS FOR UNINSURED PATIENTS -- BIN:769066, PCN: ASPROD1, Group: AME08, ID# [id number], Process claim through [employer], for questions: . THIS IS NOT INSURANCE.] Hytrin 1 mg tablet RxNorm: 264554 1 Tablet(s) PO daily 12/18/2013 12/20/2013 Inactive [SAVINGS FOR UNINSURED PATIENTS -- BIN:686761, PCN: ASPROD1, Group: AME08, ID# [id number], Process claim through [employer], for questions: . THIS IS NOT INSURANCE.] sertraline 100 mg tablet RxNorm: 168732 1 Tablet(s) PO QHS 12/14/2013 12/08/2014 Inactive [SAVINGS FOR UNINSURED PATIENTS -- BIN:424889, PCN: ASPROD1, Group: AME08, ID# [id number], Process claim through [employer], for questions: . THIS IS NOT INSURANCE.] Xanax 0.25 mg tablet RxNorm: 128380 1 Tablet(s) PO HS PRN as needed 12/13/2013 01/03/2014 Inactive [SAVINGS FOR UNINSURED PATIENTS -- BIN:696039, PCN: ASPROD1, Group: AME08, ID# [id number], Process claim through [employer], for questions: . THIS IS NOT INSURANCE.] tramadol 50 mg tablet RxNorm: 977840 2 Tablet(s) PO BID 11/08/2013 04/24/2015 Inactive Xanax 0.25 mg tablet RxNorm: 238315 1 Tablet(s) PO HS PRN as needed 10/19/2013 10/18/2013 Inactive Xanax 0.25 mg tablet RxNorm: 118980 1 Tablet(s) PO HS PRN as needed 10/19/2013 12/12/2013 Inactive Carafate 1 gram tablet RxNorm: 309520 Tablet(s) PO dissolve 1 tab QID x 1 week, then TID x 1 week, then BID x 1 week 09/07/2013 02/26/2015 Inactive omeprazole 20 mg capsule,delayed release RxNorm: 181590 1 Capsule(s) PO daily 09/07/2013 09/06/2013 Inactive omeprazole 20 mg capsule,delayed release RxNorm: 635068 1 Capsule(s) PO daily 09/07/2013 02/26/2014 Inactive prednisone 10 mg tablet RxNorm: 556804 1 Tablet(s) PO 08/25/2013 12/13/2013 Inactive prednisone taper Zithromax Z-Bon 250 mg tablet RxNorm: 533526 Tablet(s) PO as directed 08/25/2013 12/13/2013 Inactive Zithromax Z-Bon 250 mg tablet RxNorm: 300021 Tablet(s) PO as directed 08/04/2013 08/24/2013 Inactive Xanax 0.25 mg tablet RxNorm: 761229 1 Tablet(s) PO HS PRN 08/01/2013 10/18/2013 Inactive Kenalog 40 mg/mL suspension for injection RxNorm: 2319634 Milliliter(s) Inj 08/01/2013 08/01/2013 Inactive tramadol 50 mg tablet RxNorm: 706987 2 Tablet(s) PO BID 05/02/2013 11/07/2013 Inactive carvedilol 25 mg tablet RxNorm: 282691 1 Tablet(s) PO BID 05/02/2013 12/13/2013 Inactive magnesium oxide 400 mg tablet RxNorm: 602804 1 Tablet(s) PO daily 05/02/2013 04/26/2014 Inactive furosemide 20 mg tablet RxNorm: 423495 2 Tablet(s) PO daily 05/02/2013 2014 Inactive amlodipine 5 mg tablet RxNorm: 348201 1 Tablet(s) PO BID 05/02/2013 04/26/2014 Inactive sertraline 100 mg tablet RxNorm: 825973 1 Tablet(s) PO BID 05/02/2013 12/13/2013 Inactive ropinirole 1 mg tablet RxNorm: 687481 1 Tablet(s) PO QPM 05/02/2013 04/26/2014 Inactive pantoprazole 40 mg tablet,delayed release RxNorm: 096849 1 Tablet(s) PO daily 05/02/2013 2014 Inactive gabapentin 600 mg tablet RxNorm: 948341 1 Tablet(s) PO BID 05/02/2013 2014 Inactive aspirin 81 mg tablet,delayed release RxNorm: 600171 1 Tablet(s) PO daily No Start Date Active ferrous fumarate 325 mg (106 mg iron) tablet RxNorm: 722622 1 Tablet(s) PO daily No Start Date 2014 Inactive amlodipine 5 mg tablet RxNorm: 885309 1 Tablet(s) PO BID No Start Date 05/01/2013 Inactive Vitamin B-12 2,500 mcg sublingual tablet RxNorm: 973354 1 Tablet(s) SL daily No Start Date 2014 Inactive Zithromax Z-Bon 250 mg tablet RxNorm: 231829 Tablet(s) PO as directed No Start Date 08/03/2013 Inactive sertraline 100 mg tablet RxNorm: 868347 1 Tablet(s) PO BID No Start Date 05/01/2013 Inactive Hytrin 1 mg tablet RxNorm: 059485 1 Tablet(s) PO BID No Start Date 12/17/2013 Inactive potassium chloride ER 10 mEq capsule,extended release RxNorm: 152083 1 Capsule(s) PO QDAY PRN No Start Date 06/17/2016 Inactive Xanax 0.25 mg tablet RxNorm: 386826 1 Tablet(s) PO HS PRN No Start Date 07/31/2013 Inactive gabapentin 600 mg tablet RxNorm: 857507 1 Tablet(s) PO BID No Start Date 05/01/2013 Inactive ropinirole 1 mg tablet RxNorm: 265006 1 Tablet(s) PO QPM No Start Date 05/01/2013 Inactive Vitamin D3 1,000 unit tablet RxNorm: 664610 2 Tablet(s) PO daily No Start Date 09/11/2015 Inactive furosemide 20 mg tablet RxNorm: 430167 1 Tablet(s) PO BID No Start Date 05/01/2013 Inactive tramadol 50 mg tablet RxNorm: 331938 2 Tablet(s) PO BID No Start Date 05/01/2013 Inactive Carafate 1 gram tablet RxNorm: 674338 Tablet(s) PO dissolve 1 tab QID x 1 week, then TID x 1 week, then BID x 1 week No Start Date 09/06/2013 Inactive pantoprazole 40 mg tablet,delayed release RxNorm: 292088 1 Tablet(s) PO daily No Start Date 05/01/2013 Inactive montelukast 10 mg tablet RxNorm: 810372 1 Tablet(s) PO QHS No Start Date 04/23/2016 Inactive magnesium oxide 400 mg tablet RxNorm: 252100 1 Tablet(s) PO daily No Start Date 05/01/2013 Inactive prednisone 10 mg tablet RxNorm: 512116 1 Tablet(s) PO No Start Date 08/24/2013 Inactive prednisone taper carvedilol 25 mg tablet RxNorm: 079603 1 Tablet(s) PO BID No Start Date 05/01/2013 Inactive baclofen 10 mg tablet RxNorm: 875048 2 Tablet(s) PO daily No Start Date 12/13/2013 Inactive Vitamin B Complex capsule RxNorm: 1 Capsule(s) PO daily No Start Date 2014 Inactive Medication Administered Medication Codes Instructions Start Date Status Kenalog 40 mg/mL suspension for injection RxNorm: 4554768 Milliliter 09/15/2016 No longer Active Kenalog 40 mg/mL suspension for injection RxNorm: 5305646 Milliliter 04/02/2014 No longer Active ceftriaxone 500 mg solution for injection RxNorm: 894462 04/02/2014 No longer Active Kenalog 40 mg/mL suspension for injection RxNorm: 9120509 Milliliter 08/01/2013 No longer Active Immunizations Vaccine Codes Date Status Influenza CVX: 141 01/08/2016 completed Pneumococcal (Adult) CVX: 133 01/08/2016 completed Influenza CVX: 141 01/26/2013 completed Pneumococcal CVX: 33 02/26/2012 completed Tetanus, Diptheria, Pertussis CVX: 113 02/26/2012 completed Tetanus/Diptheria CVX: 113 02/26/2012 completed Assessments Condition Codes Effective Dates Cough ICD-10: R05 ICD-9: 786.2 07/27/2018 Essential [...] Visit Reason For Visit Effective Dates Notes edema 07/27/2018 edema 01/25/2018 edema 10/06/2017 edema [...] Code Item Item Code Result Date Mayda [id number] MAYDA (MORTEZA) SCREEN NONE DETECTED 06/25/2017 Ra Factor Oid938 RA FACTOR <10 IU/ml 06/24/2017 D-Dimer D-DIMER [...] 28.6 pg 06/01/2017 Cbc With Differential Ord2 [place]% 5.8 % 06/01/2017 Cbc With Differential Ord2 [...] 2.17 K/ul 06/01/2017 Cbc With Differential Ord2 [place] ABS# 0.3 K/ul 06/01/2017 Cbc With Differential Ord2 Eos ABS# 0.1 K/ul 06/01/2017 Cbc With Differential Ord2 Baso ABS# 0.1 K/ul 06/01/2017 Comp Metabolic Tog705 NA 137 mEq/L 06/01/2017 Comp Metabolic Jup876 K 3.7 mEq/L 06/01/2017 Comp Metabolic Rqg105 CL 100 mEq/L 06/01/2017 Comp Metabolic Kwd050 CO2 28.0 mEq/L 06/01/2017 Comp Metabolic Uya192 ANION GAP 13 06/01/2017 Comp Metabolic Myg751 GLUCOSE 94 mg/dL 06/01/2017 Comp Metabolic Udt465 Creat 1.3 mg/dL 06/01/2017 Comp Metabolic Xhr258 eGFR 45 ml/min/1.73m2 06/01/2017 Comp Metabolic Wtr258 BUN 12 mg/dL 06/01/2017 Comp Metabolic Evu761 B/C Ratio 9.6 Ratio 06/01/2017 Comp Metabolic Uxu028 CALCIUM 9.5 mg/dL 06/01/2017 Comp Metabolic Lpf458 ALK PHOS 77 U/L 06/01/2017 Comp Metabolic Lwh660 AST(SGOT) 17 U/L 06/01/2017 Comp Metabolic Ccy905 ALT(SGPT) 15 U/L 06/01/2017 Comp Metabolic Jvm705 BILI T 0.5 mg/dL 06/01/2017 Comp Metabolic Ddt311 ALBUMIN 4.4 g/dL 06/01/2017 Comp Metabolic Tov296 TPRO 7.0 g/dL 06/01/2017 Comp Metabolic Hlo758 GLOB 2.6 g/dL 06/01/2017 Comp Metabolic Obz081 A/G Ratio 1.7 Ratio 06/01/2017 Comp Metabolic Mpm178 Osmo 273 mOsmo 06/01/2017 Mayda [id number] MAYDA (MORTEZA) SCREEN NONE DETECTED 06/22/2016 C-Reactive Protein Qnt Crqnt CRP 0.3 mg/dl 06/19/2016 Sed Rate Ord21 ESR 11 mm/hr 06/19/2016 Ra Factor Qkk669 RA FACTOR <10 IU/ml 06/19/2016 Sed Rate Ord21 ESR 14 mm/hr 02/25/2016 C-Reactive Protein Qnt Crqnt CRP 0.3 mg/dl 02/25/2016 Comp Metabolic Xrd325 NA 136 mEq/L 02/25/2016 Comp Metabolic Dbz906 K 3.9 mEq/L 02/25/2016 Comp Metabolic Ufj506 CL 103 mEq/L 02/25/2016 Comp Metabolic Kcp568 CO2 27.0 mEq/L 02/25/2016 Comp Metabolic Nkd132 ANION GAP 10 02/25/2016 Comp Metabolic Xav309 GLUCOSE 82 mg/dL 02/25/2016 Comp Metabolic Rfu939 Creat 1.3 mg/dL 02/25/2016 Comp Metabolic Fkf254 eGFR 45 ml/min/1.73m2 02/25/2016 Comp Metabolic Zyb431 BUN 13 mg/dL 02/25/2016 Comp Metabolic Hza086 B/C Ratio 10.3 Ratio 02/25/2016 Comp Metabolic Ldc796 CALCIUM 9.5 mg/dL 02/25/2016 Comp Metabolic Vhc298 ALK PHOS 70 U/L 02/25/2016 Comp Metabolic Hgo531 AST(SGOT) 17 U/L 02/25/2016 Comp Metabolic Nhn023 ALT(SGPT) 13 U/L 02/25/2016 Comp Metabolic Qxw395 BILI T 0.4 mg/dL 02/25/2016 Comp Metabolic Hcq857 ALBUMIN 4.2 g/dL 02/25/2016 Comp Metabolic Ypo489 TPRO 6.6 g/dL 02/25/2016 Comp Metabolic Zuh806 GLOB 2.4 g/dL 02/25/2016 Comp Metabolic Bhx967 A/G Ratio 1.7 Ratio 02/25/2016 Comp Metabolic Tfl684 Osmo 271 mOsmo 02/25/2016 Cbc With Differential [...] 29.1 pg 02/25/2016 Cbc With Differential Ord2 Valley% 6.8 % 02/25/2016 Cbc With Differential Ord2 [...] 1.62 K/ul 02/25/2016 Cbc With Differential Ord2 [place] ABS# 0.4 K/ul 02/25/2016 Cbc With Differential Ord2 Eos ABS# 0.1 K/ul 02/25/2016 Cbc With Differential Ord2 Baso ABS# 0.0 K/ul 02/25/2016 Tsh Ord6 hTSH II 1.63 uIU/mL 02/25/2016 [place] Spotted Fever Igg/Igm [id number] B[place] SPOTTED FEVER IGM EIA . 09/17/2015 [place] Spotted Fever Igg/Igm 205194 RMSF, IGM 0.27 index 09/17/2015 [place] Spotted Fever Igg/Igm 194442 BENIGNO MT SPOTTED FEVER IGG EIA FLEX . 09/17/2015 [place] Spotted Fever Igg/Igm [id number] RMSF, IGG SCREEN-FLEX Negative 09/17/2015 Ehrlichia Chaffeensis Antibody Igm [id number] EHRLICHIA CHAFFEENSIS IGM < 1:16 09/16/2015 Ehrlichia Chaffeensis Antibody Igg [id number] EHRLICHIA CHAFFEENSIS IGG 1:256 09/16/2015 Lymes Disease Total Antibodies With Western Blot Reflex [id number] B. BURGDORFERI, IGG/IGM 0.10 LI 09/14/2015 Lymes Disease Total Antibodies With Western Blot Reflex [id number] 09/14/2015 Vitamin D 25 Oh Frz6287 VITAMIN D, 25 HYDROXY 59.60 ng/mL 09/13/2015 Sed Rate Ord21 ESR 10 mm/hr 09/12/2015 Comp Metabolic Fko700 NA 139 mEq/L 09/12/2015 Comp Metabolic Ooa327 K 3.8 mEq/L 09/12/2015 Comp Metabolic Vyo934 CL 103 mEq/L 09/12/2015 Comp Metabolic Uqg793 CO2 27.0 mEq/L 09/12/2015 Comp Metabolic Wxh137 ANION GAP 13 09/12/2015 Comp Metabolic Pgk955 GLUCOSE 91 mg/dL 09/12/2015 Comp Metabolic Bfh650 Creat 1.2 mg/dL 09/12/2015 Comp Metabolic Tqf069 eGFR 47 ml/min/1.73m2 09/12/2015 Comp Metabolic Jpv853 BUN 20 mg/dL 09/12/2015 Comp Metabolic Syv510 B/C Ratio 16.3 Ratio 09/12/2015 Comp Metabolic Sjp473 CALCIUM 9.3 mg/dL 09/12/2015 Comp Metabolic Hbk746 ALK PHOS 55 U/L 09/12/2015 Comp Metabolic Snv264 AST(SGOT) 19 U/L 09/12/2015 Comp Metabolic Duj579 ALT(SGPT) 14 U/L 09/12/2015 Comp Metabolic Xai167 BILI T 0.6 mg/dL 09/12/2015 Comp Metabolic Zwl552 ALBUMIN 4.3 g/dL 09/12/2015 Comp Metabolic Soe147 TPRO 6.8 g/dL 09/12/2015 Comp Metabolic Apr151 GLOB 2.5 g/dL 09/12/2015 Comp Metabolic Ixv284 A/G Ratio 1.8 Ratio 09/12/2015 Comp Metabolic Bkj163 Osmo 280 mOsmo 09/12/2015 B12 Mfb609 B12 >1500.00 pg/ml 09/12/2015 Cbc With Differential [...] 28.9 pg 09/12/2015 Cbc With Differential Ord2 Valley% 5.9 % 09/12/2015 Cbc With Differential Ord2 [...] 1.33 K/ul 09/12/2015 Cbc With Differential Ord2 [place] ABS# 0.3 K/ul 09/12/2015 Cbc With Differential Ord2 Eos ABS# 0.1 K/ul 09/12/2015 Cbc With Differential Ord2 Baso ABS# 0.0 K/ul 09/12/2015 Tsh Ord6 hTSH II 1.88 uIU/mL 09/12/2015 Review of Systems System Result Effective Dates Constitutional No anorexia 07/27/2018 Constitutional No night [...] clear 01/25/2018 None Full Exam - General 1995 Ears/Nose/Throat oral cavity/pharynx/larynx Overall: oral mucosa clear 01/25/2018 None Full Exam - General 1995 Ears/Nose/Throat oral cavity/pharynx/larynx Overall: oropharyngeal mucosa clear 01/25/2018 None Full Exam - General 1995 Ears/Nose/Throat oral cavity/pharynx/larynx Overall: no masses 01/25/2018 [...] dentition 06/01/2017 None Full Exam - General 1995 Ears/Nose/Throat lips/teeth/gingiva Overall: benign gingiva 06/01/2017 None Full Exam - General 1995 Ears/Nose/Throat lips/teeth/gingiva Overall: no masses 06/01/2017 None [...] murmurs 06/01/2017 None Full Exam - General 1995 Abdomen abdominal exam Overall: no tenderness 06/01/2017 [...] Full Exam - General 1994 Neurologic coordination Iihqdt-pjvm-ngwtof testing - left: dysmetria 05/11/2017 None Full Exam - General 1994 Neurologic coordination Uxaych-xcse-vievbs testing - right: dysmetria 05/11/2017 None Full [...] Full Exam - General 1994 Neurologic coordination Ctxgcw-rslc-qumtgj testing - left: dysmetria 04/20/2016 None Full Exam - General 1994 Neurologic coordination Anwjcl-swuc-vdzpsl testing - right: dysmetria 04/20/2016 None Full [...] Full Exam - General 1994 Neurologic coordination Idwyit-iyxh-twoxuf testing - left: dysmetria 02/25/2016 None Full Exam - General 1994 Neurologic coordination Sralmr-nqss-jxpclc testing - right: dysmetria 02/25/2016 None Full [...] Full Exam - General 1994 Neurologic coordination Yjdaoc-nlid-yhllux testing - left: dysmetria 01/28/2016 None Full Exam - General 1994 Neurologic coordination Syowpz-wcfo-wmczlg testing - right: dysmetria 01/28/2016 None Full [...] palp - head/face Lesion: excoriation 07/16/2014 right nondenominational, redness right eyelid Full Exam - Dermatology [...] clear 08/01/2013 None Full Exam - General 1995 Ears/Nose/Throat lips/teeth/gingiva Overall: benign lips 08/01/2013 None [...] Procedure Codes Date THER/PROPH/DIAG INJ SC/IM CPT-4: 46923 09/15/2016 TRIAMCINOLONE ACET INJ NOS CPT-4: J3301 09/15/2016 ADMIN INFLUENZA VIRUS VAC CPT-4: G0008 01/08/2016 ADMIN PNEUMOCOCCAL VACCINE SNOMED CT: 23053159 CPT-4: G0009 01/08/2016 PNEUMOCOCCAL VACC 13 RIVERA IM Formatting Model/CDA Sections, Assigned to/Aliya Muñoz SNOMED CT: 39158857 CPT-4: 44817Nwsjcxk 01/08/2016 FLU VACC 4 RIVERA 3 YRS PLUS IM SNOMED CT: 85596699 CPT-4: 90208 01/08/2016 THER/PROPH/DIAG INJ SC/IM CPT-4: 28494 04/02/2014 TRIAMCINOLONE ACET INJ NOS CPT-4: J3301 04/02/2014 ROCEPHIN, PER 250 MG CPT- 4: J0696 04/02/2014 TRIAMCINOLONE ACET INJ NOS CPT-4: J3301 08/01/2013 THER/PROPH/DIAG INJ SC/IM CPT-4: 54867 08/01/2013 Vital Signs Date Vital 07/27/2018 Blood Pressure 1: 132/74 Code: 8480-6 BMI: 36.3 Code: 04137-9 Heart Rate 1: 73 bpm Height: 5'5" SpO2: 98% Weight: 218 lbs 01/25/2018 Blood Pressure 1: 130/68 Code: 8480-6 BMI: 34.4 Code: 43664-3 Heart Rate 1: 91 bpm Height: 5'5" SpO2: 95% Weight: 207 lbs 10/06/2017 Blood Pressure 1: 118/78 Code: 8480-6 BMI: 34.3 Code: 40085-5 Heart Rate 1: 75 bpm Height: 5'5" SpO2: 98% Weight: 206 lbs 09/27/2017 Blood Pressure 1: 136/88 Code: 8480-6 BMI: 35.4 Code: 06860-7 Heart Rate 1: 86 bpm Height: 5'5" SpO2: 98% Weight: 213 lbs 07/23/2017 Blood Pressure 1: 106/58 Code: 8480-6 BMI: 34.8 Code: 73272-5 Heart Rate 1: 70 bpm Height: 5'5" SpO2: 96% Weight: 209 lbs 06/01/2017 Blood Pressure 1: 150/96 Code: 8480-6 BMI: 34.4 Code: 92328-3 Heart Rate 1: 82 bpm Height: 5'5" SpO2: 99% Weight: 207 lbs 05/11/2017 Blood Pressure 1: 144/90 Code: 8480-6 BMI: 34.6 Code: 10975-1 Heart Rate 1: 76 bpm Height: 5'5" SpO2: 98% Weight: 208 lbs 10/30/2016 Blood Pressure 1: 172/104 Code: 8480-6 Blood Pressure 1: 158/98 Code: 8480-6 BMI: 34.7 Code: 46330-1 Heart Rate 1: 70 bpm Height: 5'5" SpO2: 97% Temperature: 36.2 (C) / 97.1 (F) Weight: 208 lbs 10 oz 04/20/2016 Blood Pressure 1: 144/86 Code: 8480-6 BMI: 34.3 Code: 15152-2 Heart Rate 1: 68 bpm Height: 5'5" SpO2: 97% Weight: 206 lbs 02/25/2016 Blood Pressure 1: 122/82 Code: 8480-6 BMI: 34.4 Code: 69490-5 Heart Rate 1: 86 bpm Height: 5'5" SpO2: 94% Weight: 207 lbs 01/28/2016 Blood Pressure 1: 128/86 Code: 8480-6 BMI: 33.3 Code: 89256-0 Heart Rate 1: 86 bpm Height: 5'5" SpO2: 96% Weight: 200 lbs 11/14/2015 Blood Pressure 1: 140/90 Code: 8480-6 Blood Pressure 1: 138/88 Code: 8480-6 BMI: 33.3 Code: 60790-8 Heart Rate 1: 98 bpm Height: 5'5" SpO2: 97% Weight: 200 lbs 10/10/2015 Blood Pressure 1: 132/80 Code: 8480-6 BMI: 33.3 Code: 79580-3 Heart Rate 1: 74 bpm Height: 5'5" SpO2: 96% Weight: 200 lbs 09/12/2015 Blood Pressure 1: 148/90 Code: 8480-6 BMI: 32.9 Code: 51356-6 Heart Rate 1: 94 bpm Height: 5'5" SpO2: 97% Weight: 198 lbs 04/09/2015 Blood Pressure 1: 160/82 Code: 8480-6 Blood Pressure 1: 130/84 Code: 8480-6 BMI: 32.4 Code: 49419-3 Heart Rate 1: 74 bpm Height: 5'5" SpO2: 95% Weight: 195 lbs 10/05/2014 Blood Pressure 1: 140/80 Code: 8480-6 BMI: 30.5 Code: 35511-1 Heart Rate 1: 79 bpm Height: 5'5" SpO2: 98% Weight: 183 lbs 09/07/2014 Blood Pressure 1: 142/96 Code: 8480-6 BMI: 32.1 Code: 84984-6 Heart Rate 1: 72 bpm Height: 5'5" SpO2: 98% Temperature: 36.5 (C) / 97.7 (F) Weight: 193 lbs 07/16/2014 Blood Pressure 1: 138/82 Code: 8480-6 BMI: 31.8 Code: 02199-0 Heart Rate 1: 76 bpm Height: 5'5" Weight: 191 lbs 04/02/2014 Blood Pressure 1: 148/90 Code: 8480-6 BMI: 33.8 Code: 11353-1 Heart Rate 1: 68 bpm Height: 5'5" Temperature: 36.9 (C) / 98.4 (F) Weight: 203 lbs 12/14/2013 Blood Pressure 1: 140/88 Code: 8480-6 BMI: 35.3 Code: 07757-4 Heart Rate 1: 91 bpm Height: 5'5" SpO2: 97% Weight: 212 lbs 08/01/2013 Blood Pressure 1: 126/68 Code: 8480-6 BMI: 35.1 Code: 44419-2 Heart Rate 1: 76 bpm Height: 5'5" Temperature: 36.7 (C) / 98.1 (F) Weight: 211 lbs 05/02/2013 Blood Pressure 1: 118/86 Code: 8480-6 BMI: 34.9 Code: 97592-2 Heart Rate 1: 76 bpm Height: 5'5" Weight: 209 lbs 8 oz 04/18/2013 Blood Pressure 1: 118/60 Code: 8480-6 BMI: 35.3 Code: 48510-2 Heart Rate 1: 68 bpm Height: 5'5" Weight: 212 lbs Functional Status No Functional Status data History of Present Illness Symptom Name Status Result Effective Date Notes Frequency of Episodes daily 07/27/2018 None Triggers [...] data Encounters Encounter Performer Location Codes Date ([id number]) 50374 EST. PATIENT, LEVEL IV Diagnosis: Essential (primary) hypertension[ICD10: I10] Diagnosis: Cough[ICD10: R05] Diagnosis: Chronic kidney disease, stage 3 (moderate)[ICD10: N18.3] Diagnosis: Generalized anxiety disorder[ICD10: F41.1] Marilyn Lao MD, [facility] CPT-4: 11019 07/27/2018 ([id number]) 18943 EST. PATIENT, LEVEL III Diagnosis: Essential (primary) hypertension[ICD10: I10] Marilyn Lao MD, [facility] CPT-4: 66455 01/25/2018 [id number] 94940 EST. PATIENT, LEVEL III Diagnosis: Nail dystrophy[ICD10: L60.3] Diagnosis: Localized edema[ICD10: R60.0] Marilyn Lao MD, [facility] CPT-4: 85771 10/06/2017 [id number]) 57121 EST. PATIENT, LEVEL IV Diagnosis: Essential (primary) hypertension[ICD10: I10] Diagnosis: Localized edema[ICD10: R60.0] Marilyn Lao MD, [facility] CPT-4: 27848 09/27/2017 ([id number]) 66290 EST. PATIENT, LEVEL IV Diagnosis: Generalized anxiety disorder[ICD10: F41.1] Diagnosis: Essential (primary) hypertension[ICD10: I10] Diagnosis: Chronic pain syndrome[ICD10: G89.4] Noa Lao MD, [facility] CPT-4: 19556 07/23/2017 ([id number]) 21578 EST. PATIENT, LEVEL IV Diagnosis: Essential (primary) hypertension[ICD10: I10] Diagnosis: Chest pain, unspecified[ICD10: R07.9] Diagnosis: Chronic kidney disease, stage 3 (moderate)[ICD10: N18.3] Noa Lao MD, [facility] CPT-4: 26873 06/01/2017 42806 EST. PATIENT, LEVEL IV Diagnosis: Gastro-esophageal reflux disease without esophagitis[ICD10: K21.9] Anais Lao MD, [facility] CPT-4: 09737 05/11/2017 ([id number]) 51533 EST. PATIENT, LEVEL III Diagnosis: Essential (primary) hypertension[ICD10: I10] Diagnosis: Contusion of right lower leg, initial encounter[ICD10: S80.11XA] Noa Lao MD, [facility] CPT-4: 28542 10/30/2016 ([id number]) 35501 EST. PATIENT, LEVEL IV Diagnosis: Essential (primary) hypertension[ICD10: I10] Diagnosis: Generalized anxiety disorder[ICD10: F41.1] Marilyn Lao MD, [facility] CPT-4: 05807 04/20/2016 ([id number]) 44471 EST. PATIENT, LEVEL IV Diagnosis: Essential (primary) hypertension[ICD10: I10] Diagnosis: Chronic kidney disease, stage 3 (moderate)[ICD10: N18.3] Diagnosis: Generalized anxiety disorder[ICD10: F41.1] Diagnosis: Major depressive disorder, recurrent, moderate[ICD10: F33.1] Diagnosis: Shortness of breath[ICD10: R06.02] Noa Lao MD, [facility] CPT- 4: 67178 02/25/2016 ([id number]) 63287 EST. PATIENT, LEVEL IV Diagnosis: Generalized anxiety disorder[ICD10: F41.1] Diagnosis: Major depressive disorder, recurrent, moderate[ICD10: F33.1] Diagnosis: Essential (primary) hypertension[ICD10: I10] Diagnosis: Restless legs syndrome[ICD10: G25.81] Diagnosis: Myalgia[ICD10: M79.1] Noa Lao MD, [facility] CPT-4: 13216 01/28/2016 ([id number] 13435 EST. PATIENT, LEVEL III Diagnosis: Essential (primary) hypertension[ICD10: I10] Diagnosis: Insomnia, unspecified[ICD10: G47.00] Noa Lao MD, [facility] CPT-4: 58149 11/14/2015 ([id number]) 62521 EST. 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 PATIENT, LEVEL IV Diagnosis: Bitten or stung by nonvenomous insect and other nonvenomous arthropods, initial encounter[ICD10: W57.XXXA] Diagnosis: Other fatigue[ICD10: R53.83] Diagnosis: Vitamin D deficiency, unspecified[ICD10: E55.9] Diagnosis: Other vitamin B12 deficiency anemias[ICD10: D51.8] Diagnosis: Essential (primary) hypertension[ICD10: I10] Diagnosis: Iron deficiency[ICD10: E61.1] Noa Lao MD, [facility] CPT-4: 47918 09/12/2015 ([id number]) 57174 EST. PATIENT, LEVEL III Diagnosis: Essential (primary) hypertension[ICD10: I10] Diagnosis: Chronic kidney disease, stage 3 (moderate)[ICD10: N18.3] Noa Lao MD, [facility] CPT-4: 17471 04/09/2015 ([id number]) 16451 EST. PATIENT, LEVEL III Diagnosis: ESSENTIAL HYPERTENSION[ICD9: 401.9] Noa Lao MD, [facility] CPT-4: 23966 10/05/2014 ([id number]) 83749 EST. PATIENT, LEVEL IV Diagnosis: Easy bruising[ICD9: 782.9] Diagnosis: Iron deficiency anemia[ICD9: 280.9] Diagnosis: ESSENTIAL HYPERTENSION[ICD9: 401.9] Diagnosis: Chronic kidney disease, stage 3[ICD9: 585.3] Noa Lao MD, [facility] CPT-4: 82334 09/07/2014 ([id number]) 38226 EST. PATIENT, LEVEL III Diagnosis: Shingles[ICD9: 053.9] Marilyn Lao MD, [facility] CPT-4: 68698 07/16/2014 ([id number]) 53269 EST. PATIENT, LEVEL III Diagnosis: PNEUMONIA (CAP)[ICD9: 486] Diagnosis: COUGH[ICD9: 786.2] Marilyn Lao MD, [facility] CPT-4: 57343 04/02/2014 ([id number]) 00247 EST. PATIENT, LEVEL III Diagnosis: ESSENTIAL HYPERTENSION[ICD9: 401.9] Diagnosis: Rib pain on left side[ICD9: 786.50] Diagnosis: EDEMA[ICD9: 782.3] Noa Lao MD, [facility] CPT-4: 61892 12/14/2013 ([id number]) 82736 EST. PATIENT, LEVEL IV Diagnosis: ESOPHAGEAL REFLUX[ICD9: 530.81] Diagnosis: Urge incontinence[ICD9: 788.31] Diagnosis: Elbow pain, right[ICD9: 719.42] Diagnosis: Snoring[ICD9: 786.09] Marilyn Lao MD, [facility] CPT-4: 65317 08/01/2013 ([id number]) 14103 EST. PATIENT, LEVEL IV Diagnosis: ESSENTIAL HYPERTENSION[SNOMED: 78973109] Diagnosis: EDEMA[ICD9: 782.3] Diagnosis: Chronic renal insufficiency, stage III (moderate)[ICD9: 585.3] Diagnosis: HYPERLIPIDEMIA[ICD9: 272.4] Marilyn Lao MD, [facility] CPT-4: 04211 05/02/2013 ([id number]) 00687 EST. PATIENT, LEVEL IV Diagnosis: ESSENTIAL HYPERTENSION[SNOMED: 53313899] Diagnosis: Restless leg[ICD9: 333.94] [facility] CPT-4: 12259 04/18/2013 Plan of Care Planned Activity Notes Codes Status Date Visit Plan: Hypertension - well controlled - [...] exposure. No change in current medications. 07/27/2018 Patient Education: Patient Medication Summary Completed 07/27/2018 [phone] ([facility] min) Moderate 07/26/2018 Visit Plan: Hypertension - well controlled - continue with current medications, continue with no added salt diet. Pt has been encouraged to exercise daily. The pt has been advised to call the office if there are any acute concerns about change in blood pressure readings at home. 01/25/2018 Appointment: [phone] (15 min) Moderate 01/25/2018 Patient Education: Patient Medication Summary Completed 01/25/2018 Appointment: [phone] (15 min) Moderate 01/06/2018 Patient Education: Patient Medication Summary Completed 10/26/2017 Care Plan: Comp Metabolic Cancelled 10/26/2017 Visit Plan: Tinea/Onychodystrophy - penlac prescribed, pt did not want to take medication by mouth for treatment. Edema - improved - continue current regimen. 10/06/2017 Appointment: Marilyn Lao WPtel: [phone] [facility] (15 min) Moderate 10/06/2017 Patient Education: Patient [...] at home. 09/27/2017 Appointment: Marilyn Lao WPtel: [facility] (15 min) Moderate 09/27/2017 Patient Education: Patient [...] massage 07/23/2017 Appointment[facility] [place] [phone] [place] (15 min) Moderate 07/23/2017 Patient Education: [...] worsens 06/01/2017 Appointment: Noa Orlando WPtel: [phone] [phone] (30 min) Complex 06/01/2017 Patient Education: Patient Medication Summary Completed 06/01/2017 Care Plan: Referral Order SNOMED-CT : 832552879 Pending 06/01/2017 Visit Plan: Esophageal Reflux - the patient has been counseled against excessive intake of caffeine, spicy foods, peppermint, and cinnamon - all of which can exacerbate esophageal reflux. The patient is to take med ications as prescribed and call the office if the symptoms are not improving. 05/11/2017 Appointment: Anais Arrieta WPtel: [phone] [facility] (15 min) Moderate 05/11/2017 Patient Education: Patient [...] Completed 09/15/2016 Appointment: Marilyn Lao WPtel: [phone] [facility] (15 min) Moderate 08/19/2016 Patient Education: Patient [...] current medications. 04/20/2016 Appointment: Marilyn Lao WPtel: [facility] (30 min) Complex 04/20/2016 Patient Education: Patient Medication Summary Completed 04/20/2016 Patient Education: Obesity Completed 04/20/2016 Patient Education: Hypertension Completed 04/20/2016 Appointment: Noa Orlando WPtel: [phone] (30 min) Complex 03/16/2016 Referral: Ta Santacruz [...] for follow up. Chronic renal disease-check labs Ucxluew-olbxelsyua-opebbkcr with cymbalta-continue same dose for now -may take xanax TID PRN Multiple joint pain-check labs including inflammatory markers 02/25/2016 Appointment: Noa Orlando WPtel: [phone] (30 min) Complex 02/25/2016 Patient Education: Patient Medication Summary Completed 02/25/2016 Patient Education: Obesity Completed 02/25/2016 Patient Education: Hypertension Completed 02/25/2016 Care Plan: Referral Order SNOMED-CT : 554548902 Pending 02/25/2016 Visit Plan: Anxiety/Depression - the [...] in blood pressure readings at home. Restless rxy-uayord-dseillee requip to twice daily-monitor symptoms Myalgias-stop pravastatin 01/28/2016 Appointment: Noa Orlando WPtel: [phone] (30 min) Complex 01/28/2016 Patient Education: Patient [...] Hypertension Completed 10/10/2015 Appointment: Marilyn Lao [facility]Ptel: [facility] (15 min) Moderate 10/08/2015 Visit Plan: Hypertension - well controlled - continue with current medications, continue with no added salt diet. Pt has been encouraged to exercise daily. The pt has been advised to call the office if there are any acute concerns about change in blood pressure readings at home. Iron deficiency- B12 deficiency-check labs Tick plme-yepdnat-nlpfg tick panel 09/12/2015 Appointment: Noa Orlando WPtel: [phone] (15 min) Moderate 09/12/2015 Patient Education: Patient [...] symptoms Iron deficiency anemia-stopped oral iron per supervisor polishing in March-recheck labs HTN-elevated today-monitor twice daily [...] Care Plan: COMPLETE CBC AUTOMATED LOINC : 01466-7 Ordered 09/07/2014 Visit Plan: Shingles - Herpes [...] Summary Completed 07/16/2014 Appointment: Marilyn Lao WPtel: [facility] Follow up 04/16/2014 Appointment: Sick 04/03/2014 Visit Plan: Pneumonia - Pt has been diagnosed with pneumonia by physical exam. Antibiotics started. The pt is aware of the diagnosis and the need for acute treatment of this illness. 04/02/2014 Patient Education: Patient Medication Summary Completed 04/02/2014 Appointment: Marilyn Lao WPtel: [facility] Sick 12/27/2013 Patient Education: Patient Medication Summary [...] further attempt to reduce peripheral edema. Night qplbgd-jgdqguk-ieogz labs 12/14/2013 Appointment: Follow up 12/14/2013 Patient Education: Patient Medication Summary Completed 12/14/2013 Patient Education: Hypertension Completed 12/14/2013 Appointment: Noa Orlando WPtel: [phone] [place] Sick 12/01/2013 Appointment: Marilyn Lao WPtel: [facility] [facility] 11/30/2013 Visit Plan: Allergies - chronic - [...] monitor symptoms. 08/01/2013 Appointment: Marilyn Lao WPtel: [address] [place], [place] [phone] Follow up 08/01/2013 Patient Education: Patient Medication [...] as able. 05/02/2013 Appointment: [phone] Follow up 05/02/2013 Patient Education: Patient Medication [...] her iron with orange juice. 04/18/2013 [place]: [place] [phone] New Patient 04/18/2013 [...] in blood pressure readings at home. Restless fle-ycuugn-zauxjunt requip to twice daily-monitor symptoms Myalgias-stop pravastatin [...] for follow up. Chronic renal disease-check labs Grvgcsd-jkaumkvccl-wkuhuyeb with cymbalta-continue same dose for now -may [...] at home. Iron deficiency-B12 deficiency-check labs Tick tgdw-zqqyjnf-hnrdc tick panel PATIENT IS TO CHECK BLOOD [...] infection or other concerns . Tinea/Onychodystrophy - [facility] prescribed, pt did not want to take [...] the pt is to be considered contagious. stop the amlodipine - it will take [...] symptoms Iron deficiency anemia-stopped oral iron per supervisor polishing in March-recheck labs HTN-elevated today-monitor twice daily [...] further attempt to reduce peripheral edema. Night oqlely-patpuqj-rqocj labs
[2018-11-04] MEDS ORDERED: ALPR0.5T7 PO ×2 (15:45→16:14)
[2018-11-04] MEDS ORDERED: ATOR10TA66 PO (15:45)
[2018-11-04] MEDS ORDERED: AMLO5TAB9 PO (15:45)
[2018-11-04] MEDS ORDERED: RANI150T11 PO (15:45)
[2018-11-04] MEDS ORDERED: MONT10TA24 PO (15:45)
[2018-11-04] MEDS ORDERED: LOSA100T57 PO (15:45)
[2018-11-04] MEDS ORDERED: DULO60CA59 PO (15:45)
[2018-11-04] MEDS ORDERED: BACL5TAB PO (15:45)
[2018-11-04] MEDS ORDERED: SUCR1TAB PO (15:45)
[2018-11-04] MEDS ORDERED: ASPI-808 PO (15:45)
[2018-11-04] MEDS ORDERED: CYAN-41 PO (15:45)
[2018-11-04] MEDS ORDERED: LABE200T7 PO (15:45)
[2018-11-04] MEDS ORDERED: FURO40TA4 PO (15:45)
[2018-11-04] MEDS ORDERED: TRAM50TA2 PO (15:45)
[2018-11-04] MEDS ORDERED: POTA20TA15 PO (15:45)
[2018-11-04] MEDS ORDERED: MAGN400T39 PO (15:45)
[2018-11-04] MEDS ORDERED: ROPI1TAB2 PO (15:45)
--- OUTSIDE RECORDS SUMMARY | 2018-11-04 15:46 | XMS REPORT | CCD ---
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 08/01/2013 Employment Unknown Retired doing as needed working for the [employer]. 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 Active 10/06/2017 Unknown Essential (primary) hypertension ICD-9: 401.9 ICD-10: I10 Active 02/24/2016 Unknown Generalized anxiety disorder ICD-9: 308.0 ICD-10: F41.1 Active 02/24/2016 Unknown Other specified abnormal findings [...] Condition Codes Effective Dates Condition Status Chronic pain syndrome ICD- 9: 338.4 ICD-10: G89.4 07/23/2017 Active Essential (primary) hypertension ICD-9: 401.1 ICD-10: I10 09/27/2017 Active Chronic kidney disease, stage 3 (moderate) ICD-9: 585.3 ICD-10: N18.3 02/24/2016 Active Localized edema ICD-9: 782.3 ICD-10: R60.0 09/27/2017 Active 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 10/06/2017 Active Essential (primary) hypertension ICD-9: 401.9 ICD-10: I10 02/24/2016 Active Generalized anxiety disorder ICD-9: 308.0 ICD-10: F41.1 02/24/2016 Active Other specified abnormal findings of [...] Start Date Stop Date Status Fill Instructions doxycycline hyclate 100 mg tablet RxNorm: 3751208 1 Tablet(s) PO BID 07/12/2018 07/25/2018 Inactive ropinirole 1 mg tablet RxNorm: 165925 TAKE TWO TABLETS BY MOUTH EVERY NIGHT AT BEDTIME 07/04/2018 03/30/2019 Active Carafate 1 gram tablet RxNorm: 378256 TAKE ONE TABLET BY MOUTH FOUR TIMES A DAY 07/04/2018 10/01/2018 Active montelukast 10 mg tablet RxNorm: 039195 TAKE ONE TABLET BY MOUTH EVERY NIGHT AT BEDTIME 07/04/2018 03/30/2019 Active losartan 100 mg tablet RxNorm: 784590 1 Tablet(s) PO daily 05/04/2018 01/28/2019 Active tramadol 50 mg tablet RxNorm: 701119 2 Tablet(s) PO BID 04/26/2018 06/24/2018 Inactive Xanax 0.5 mg tablet RxNorm: 480032 1 Tablet(s) PO TID PRN as needed 04/04/2018 07/31/2018 Active alprazolam 0.5 mg tablet RxNorm: 552493 1/2-1 Tablet(s) PO TID PRN as needed 04/04/2018 06/01/2018 Inactive tramadol 50 mg tablet RxNorm: 083693 2 Tablet(s) PO BID 12/01/2017 01/29/2018 Inactive Cymbalta 60 mg capsule,delayed release RxNorm: 484265 TAKE ONE CAPSULE BY MOUTH DAILY 11/10/2017 11/04/2018 Active furosemide 40 mg tablet RxNorm: 501100 1 Tablet(s) PO daily 10/26/2017 10/20/2018 Active alprazolam 0.5 mg tablet RxNorm: 162196 1/2-1 Tablet(s) PO TID PRN as needed 10/12/2017 12/10/2017 Inactive Ciclodan 8 % topical solution RxNorm: 7190019 1 Application TOP daily x 7 days, clean off with alcohol then restart cycle of application until fungal infection is completely cleared 10/06/2017 01/03/2018 Inactive omeprazole 20 mg capsule,delayed release RxNorm: 325815 TAKE ONE CAPSULE BY MOUTH DAILY 10/04/2017 01/24/2018 Inactive losartan 100 mg tablet RxNorm: 463179 1 Tablet(s) PO daily 09/27/2017 03/24/2018 Inactive Xanax 0.25 mg tablet RxNorm: 287077 1 Tablet(s) PO TID PRN as needed 08/13/2017 10/10/2017 Inactive Xanax 0.5 mg tablet RxNorm: 038157 1 Tablet(s) PO TID PRN as needed 07/23/2017 11/18/2017 Inactive ropinirole 1 mg tablet RxNorm: 586894 TAKE TWO TABLETS BY MOUTH EVERY NIGHT AT BEDTIME 06/28/2017 06/22/2018 Inactive montelukast 10 mg tablet RxNorm: 806214 TAKE ONE TABLET BY MOUTH EVERY NIGHT AT BEDTIME 06/28/2017 06/22/2018 Inactive furosemide 20 mg tablet RxNorm: 572883 TAKE TWO TABLETS BY MOUTH DAILY FOR 7 DAYS THEN TAKE ONE TABLET BY MOUTH DAILY 06/28/2017 10/01/2017 Inactive losartan 50 mg tablet RxNorm: 664977 1 Tablet(s) PO daily 06/01/2017 09/26/2017 Inactive labetalol 100 mg tablet RxNorm: 445720 TAKE ONE TABLET BY MOUTH TWICE A DAY 05/26/2017 05/30/2017 Inactive labetalol 100 mg tablet RxNorm: 986509 1 Tablet(s) PO BID 05/26/2017 05/20/2018 Inactive Protonix 40 mg tablet,delayed release RxNorm: 662013 1 Tablet(s) PO daily 05/26/2017 05/20/2018 Inactive amlodipine 5 mg tablet RxNorm: 659040 TAKE ONE TABLET BY MOUTH TWICE A DAY 05/26/2017 09/26/2017 Inactive Protonix 40 mg tablet,delayed release RxNorm: 544396 1 Tablet(s) PO daily 05/11/2017 05/25/2017 Inactive Carafate 1 gram tablet RxNorm: 278258 1 Tablet(s) PO QID 05/11/2017 09/07/2017 Inactive Cymbalta 60 mg capsule,delayed release RxNorm: 368750 TAKE ONE CAPSULE BY MOUTH DAILY 05/05/2017 10/31/2017 Inactive Xanax 0.25 mg tablet RxNorm: 189117 1 Tablet(s) PO TID PRN as needed 02/09/2017 06/07/2017 Inactive Cymbalta 60 mg capsule,delayed release RxNorm: 196102 TAKE ONE CAPSULE BY MOUTH DAILY 10/28/2016 04/25/2017 Inactive Xanax 0.25 mg tablet RxNorm: 061525 1 Tablet(s) PO TID PRN as needed 10/08/2016 12/06/2016 Inactive NEED TO GIVE #90 WITH NEXT REFILL Kenalog 40 mg/mL suspension for injection RxNorm: 7006935 Milliliter(s) Inj 09/15/2016 09/15/2016 Inactive tramadol 50 mg tablet RxNorm: 835558 Tablet(s) TAKE 2 TABLETS BY MOUTH TWICE DAILY 08/18/2016 02/12/2017 Inactive Generic For:ULTRAM 50 MG TABLET N O T I C E Last quantity doesn't match original quantity(Response to an electronic controlled substance refill request - RxReferenceNumber: [id number]) potassium chloride ER 10 mEq capsule,extended release RxNorm: 183588 TAKE ONE CAPSULE BY MOUTH DAILY NEEDED 08/03/2016 01/29/2017 Inactive potassium chloride ER 10 mEq capsule,extended release RxNorm: 551662 1 Capsule(s) PO QDAY PRN 06/18/2016 08/02/2016 Inactive furosemide 20 mg tablet RxNorm: 983642 1 Tablet(s) PO daily as needed for swelling 06/18/2016 06/12/2017 Inactive 2 daily x 1 week then daily Carafate 1 gram tablet RxNorm: 491082 1 Tablet(s) PO daily 04/24/2016 04/18/2017 Inactive Cymbalta 60 mg capsule,delayed release RxNorm: 577532 1 Capsule(s) PO daily 04/24/2016 10/20/2016 Inactive montelukast 10 mg tablet RxNorm: 477014 1 Tablet(s) PO QHS 04/24/2016 04/18/2017 Inactive omeprazole 20 mg capsule,delayed release RxNorm: 495798 Capsule(s) 1 Capsule(s) PO daily 04/24/2016 05/31/2017 Inactive ropinirole 1 mg tablet RxNorm: 804613 2 Tablet(s) PO QHS 04/24/2016 04/18/2017 Inactive furosemide 20 mg tablet RxNorm: 142546 1 Tablet(s) PO daily as needed for swelling 04/24/2016 06/17/2016 Inactive labetalol 100 mg tablet RxNorm: 422201 1 Tablet(s) PO BID 04/24/2016 04/18/2017 Inactive amlodipine 5 mg tablet RxNorm: 832970 Tablet(s) TAKE 1 TABLET BY MOUTH TWICE DAILY 04/24/2016 04/18/2017 Inactive Transferring from [facility] Xanax 0.25 mg tablet RxNorm: 220640 1 Tablet(s) PO TID PRN as needed 02/25/2016 03/25/2016 Inactive NEED TO GIVE #90 WITH NEXT REFILL Xanax 0.25 mg tablet RxNorm: 800570 1 Tablet(s) PO BID PRN as needed 02/19/2016 02/24/2016 Inactive [SAVINGS FOR UNINSURED PATIENTS -- BIN:136779, PCN: ASPROD1, Group: AME08, ID# [id number], Process claim through [employer], for questions: . THIS IS NOT INSURANCE.] Cymbalta 60 mg capsule,delayed release RxNorm: 248855 1 Capsule(s) PO daily 01/28/2016 04/23/2016 Inactive ropinirole 1 mg tablet RxNorm: 290457 1 Tablet(s) PO BID TAKE 1 TABLET BY MOUTH DAILY EVERY NIGHT 01/28/2016 04/23/2016 Inactive Generic For:REQUIP 1 MG TABLET tramadol 50 mg tablet RxNorm: 404300 Tablet(s) TAKE 2 TABLETS BY MOUTH TWICE DAILY 01/16/2016 07/13/2016 Inactive Generic For:ULTRAM 50 MG TABLET N O T I C E Last quantity doesn't match original quantity(Response to an electronic controlled substance refill request - RxReferenceNumber: [id number]) omeprazole 20 mg capsule,delayed release RxNorm: 093124 1 Tablet(s) PO daily 1 Capsule(s) PO daily 12/11/2015 04/23/2016 Inactive pravastatin 10 mg tablet RxNorm: 634297 1 Tablet(s) PO QHS TAKE 1 TABLET BY MOUTH EVERY NIGHT 11/28/2015 01/27/2016 Inactive Generic For:PRAVACHOL 10 MG TABLET furosemide 20 mg tablet RxNorm: 771800 1 Tablet(s) PO daily as needed for swelling 11/12/2015 04/23/2016 Inactive pravastatin 10 mg tablet RxNorm: 373359 1 Tablet(s) PO QHS TAKE 1 TABLET BY MOUTH EVERY NIGHT 11/07/2015 11/27/2015 Inactive Generic For:PRAVACHOL 10 MG TABLET Xanax 0.25 mg tablet RxNorm: 048137 1 Tablet(s) PO BID PRN as needed 10/28/2015 01/25/2016 Inactive [SAVINGS FOR UNINSURED PATIENTS -- BIN:028375, PCN: ASPROD1, Group: [id number], ID# [id number], Process claim through [employer], for questions: . THIS IS NOT INSURANCE.] Viberzi 75 mg tablet RxNorm: 2698034 1 Tablet(s) PO BID 10/10/2015 10/10/2015 Inactive doxycycline hyclate 100 mg tablet RxNorm: 0422461 1 Tablet(s) PO BID 10/10/2015 10/23/2015 Inactive Vitamins B Complex capsule RxNorm: 1 Capsule(s) PO daily 09/12/2015 No Stop Date Active Vitamin D3 1,000 unit tablet RxNorm: 446089 3-4 Tablet(s) PO daily 09/12/2015 No Stop Date Active Augmentin 500 mg-125 mg tablet RxNorm: 487308 1 Tablet(s) PO BID 07/09/2015 2015 Inactive probiotic one bid x 7 days Augmentin 500 mg-125 mg tablet RxNorm: 113855 1 Tablet(s) PO BID 07/09/2015 07/08/2015 Inactive Xanax 0.25 mg tablet RxNorm: 144817 1 Tablet(s) PO BID PRN as needed 07/01/2015 09/28/2015 Inactive [SAVINGS FOR UNINSURED PATIENTS -- BIN:259286, PCN: ASPROD1, Group: AME08, ID# [id number], Process claim through [employer], for questions: . THIS IS NOT INSURANCE.] sertraline 100 mg tablet RxNorm: 464929 TAKE 1 TABLET BY MOUTH TWICE DAILY 07/01/2015 01/27/2016 Inactive Generic For:*ZOLOFT 100MG TABLET N O T I C E Last quantity doesn't match original quantity amlodipine 5 mg tablet RxNorm: 583992 TAKE 1 TABLET BY MOUTH TWICE DAILY 06/26/2015 04/23/2016 Inactive Generic For:NORVASC 5 MG TABLET N O T I C E Last quantity doesn't match original quantity amlodipine 5 mg tablet RxNorm: 653160 Tablet(s) 1 Tablet(s) PO BID 06/25/2015 06/25/2015 Inactive ropinirole 1 mg tablet RxNorm: 387653 TAKE 1 TABLET BY MOUTH DAILY EVERY NIGHT 05/22/2015 01/27/2016 Inactive Generic For:REQUIP 1 MG TABLET ropinirole 1 mg tablet RxNorm: 581033 Tablet(s) 1 Tablet(s) PO QPM 05/22/2015 05/21/2015 Inactive pravastatin 10 mg tablet RxNorm: 725076 TAKE 1 TABLET BY MOUTH EVERY NIGHT 05/14/2015 11/06/2015 Inactive Generic For:PRAVACHOL 10 MG TABLET tramadol 50 mg tablet RxNorm: 416386 2 Tablet(s) PO BID 04/25/2015 01/18/2016 Inactive labetalol 100 mg tablet RxNorm: 290988 1 Tablet(s) PO BID 04/09/2015 04/23/2016 Inactive omeprazole 20 mg capsule,delayed release RxNorm: 710214 1 Tablet(s) PO daily 1 Capsule(s) PO daily 03/20/2015 12/10/2015 Inactive Carafate 1 gram tablet RxNorm: 950559 Tablet(s) PO UD 4 times daily x 1 week and then PRN 02/27/2015 02/21/2016 Inactive Xanax 0.25 mg tablet RxNorm: 097347 1 Tablet(s) PO BID PRN as needed 02/08/2015 06/06/2015 Inactive [SAVINGS FOR UNINSURED PATIENTS -- BIN:851151, PCN: ASPROD1, Group: AME08, ID# [id number], Process claim through [employer], for questions: . THIS IS NOT INSURANCE.] furosemide 20 mg tablet RxNorm: 416464 1 Tablet(s) PO daily as needed for swelling 10/25/2014 02/21/2015 Inactive ok to fill by Dr. Franklin 10-25-14 Xanax 0.25 mg tablet RxNorm: 720413 1 Tablet(s) PO BID PRN as needed 09/25/2014 01/21/2015 Inactive [SAVINGS FOR UNINSURED PATIENTS -- BIN:879554, PCN: ASPROD1, Group: [id number], ID# [id number], Process claim through [employer], for questions: . THIS IS NOT INSURANCE.] pravastatin 10 mg tablet RxNorm: 977945 TAKE 1 TABLET BY MOUTH EVERY NIGHT 09/06/2014 04/03/2015 Inactive Generic For:PRAVACHOL 10 MG TABLET tramadol 50 mg tablet RxNorm: 756814 TAKE 2 TABLETS BY MOUTH TWICE DAILY 08/02/2014 01/15/2016 Inactive Generic For:ULTRAM 50 MG TABLET N O T I C E Last quantity doesn't match original quantity(Response to an electronic controlled substance refill request - RxReferenceNumber: [id number]) tramadol 50 mg tablet RxNorm: 573832 2 Tablet(s) PO BID 08/01/2014 08/02/2014 Inactive acyclovir 400 mg tablet RxNorm: 980364 2 Tablet(s) PO QID 07/16/2014 07/25/2014 Inactive sertraline 100 mg tablet RxNorm: 931179 1 Tablet(s) PO BID 1 Tablet(s) PO BID 06/13/2014 12/09/2014 Inactive sertraline 100 mg tablet RxNorm: 214340 1 Tablet(s) PO BID 06/13/2014 06/12/2014 Inactive magnesium oxide 400 mg tablet RxNorm: 157208 1 Tablet(s) PO daily 05/25/2014 2014 Inactive ropinirole 1 mg tablet RxNorm: 302481 1 Tablet(s) PO QPM 05/25/2014 05/19/2015 Inactive amlodipine 5 mg tablet RxNorm: 237155 1 Tablet(s) PO BID 05/25/2014 05/19/2015 Inactive prednisone 10 mg tablets in a dose pack RxNorm: 038598 1 Tablet(s) PO UD 04/06/2014 04/10/2014 Inactive 6-5-4-3-2-1 Xanax 0.25 mg tablet RxNorm: 975089 1 Tablet(s) PO BID PRN as needed 04/04/2014 07/02/2014 Inactive [SAVINGS FOR UNINSURED PATIENTS -- BIN:366638, PCN: ASPROD1, Group: AME08, ID# [id number], Process claim through [employer], for questions: . THIS IS NOT INSURANCE.] prednisone 20 mg tablet RxNorm: 312887 3 Tablet(s) PO daily 04/02/2014 04/05/2014 Inactive [SAVINGS FOR UNINSURED PATIENTS -- BIN:367705, PCN: ASPROD1, Group: AME08, ID# [id number], Process claim through [employer], for questions: . THIS IS NOT INSURANCE.] cefdinir 300 mg capsule RxNorm: 623431 1 Capsule(s) PO BID 04/02/2014 04/11/2014 Inactive [SAVINGS FOR UNINSURED PATIENTS -- BIN:443911, PCN: ASPROD1, Group: AME08, ID# [id number], Process claim through [employer], for questions: . THIS IS NOT INSURANCE.] Kenalog 40 mg/mL suspension for injection RxNorm: 7881855 Milliliter(s) Inj 04/02/2014 04/02/2014 Inactive [SAVINGS FOR UNINSURED PATIENTS -- BIN:765161, PCN: ASPROD1, Group: AME08, ID# [id number], Process claim through [employer], for questions: . THIS IS NOT INSURANCE.] ceftriaxone 500 mg solution for injection RxNorm: 053305 Inj 04/02/2014 04/02/2014 Inactive [SAVINGS FOR UNINSURED PATIENTS -- BIN:077952, PCN: ASPROD1, Group: AME08, ID# [id number], Process claim through [employer], for questions: . THIS IS NOT INSURANCE.] albuterol sulfate 2.5 mg/0.5 mL solution for nebulization RxNorm: 493646 1 treatment INH QID and as needed for dyspnea 04/02/2014 05/31/2014 Inactive [SAVINGS FOR UNINSURED PATIENTS -- BIN:841630, PCN: ASPROD1, Group: AME08, ID# [id number], Process claim through [employer], for questions: . THIS IS NOT INSURANCE.] azithromycin 500 mg tablet RxNorm: 170045 1 Tablet(s) PO daily 04/02/2014 04/06/2014 Inactive [SAVINGS FOR UNINSURED PATIENTS -- BIN:678320, PCN: ASPROD1, Group: AME08, ID# [id number], Process claim through [employer], for questions: . THIS IS NOT INSURANCE.] omeprazole 20 mg capsule,delayed release RxNorm: 865621 1 Tablet(s) PO daily 1 Capsule(s) PO daily 02/26/2014 06/25/2014 Inactive Xanax 0.25 mg tablet RxNorm: 460884 1 Tablet(s) PO BID PRN as needed 02/01/2014 04/03/2014 Inactive [SAVINGS FOR UNINSURED PATIENTS -- BIN:443944, PCN: ASPROD1, Group: AME08, ID# [id number], Process claim through [employer], for questions: . THIS IS NOT INSURANCE.] Xanax 0.25 mg tablet RxNorm: 795297 1 Tablet(s) PO HS PRN as needed 01/04/2014 01/31/2014 Inactive [SAVINGS FOR UNINSURED PATIENTS -- BIN:312431, PCN: ASPROD1, Group: AME08, ID# [id number], Process claim through [employer], for questions: . THIS IS NOT INSURANCE.] pravastatin 10 mg tablet RxNorm: 834972 1 Tablet(s) PO QHS 12/21/2013 12/20/2013 Inactive pravastatin 10 mg tablet RxNorm: 641576 1 Tablet(s) PO QHS 12/21/2013 07/18/2014 Inactive [SAVINGS FOR UNINSURED PATIENTS -- BIN:690034, PCN: ASPROD1, Group: AME08, ID# [id number], Process claim through [employer], for questions: . THIS IS NOT INSURANCE.] Hytrin 1 mg tablet RxNorm: 033114 1 Tablet(s) PO BID 12/21/2013 04/08/2015 Inactive [SAVINGS FOR UNINSURED PATIENTS -- BIN:537859, PCN: ASPROD1, Group: AME08, ID# [id number], Process claim through [employer], for questions: . THIS IS NOT INSURANCE.] Hytrin 1 mg tablet RxNorm: 351013 1 Tablet(s) PO daily 12/18/2013 12/20/2013 Inactive [SAVINGS FOR UNINSURED PATIENTS -- BIN:402225, PCN: ASPROD1, Group: AME08, ID# [id number], Process claim through [employer], for questions: . THIS IS NOT INSURANCE.] sertraline 100 mg tablet RxNorm: 645736 1 Tablet(s) PO QHS 12/14/2013 12/08/2014 Inactive [SAVINGS FOR UNINSURED PATIENTS -- BIN:917013, PCN: ASPROD1, Group: AME08, ID# [id number], Process claim through [employer], for questions: . THIS IS NOT INSURANCE.] Xanax 0.25 mg tablet RxNorm: 941179 1 Tablet(s) PO HS PRN as needed 12/13/2013 01/03/2014 Inactive [SAVINGS FOR UNINSURED PATIENTS -- BIN:331264, PCN: ASPROD1, Group: AME08, ID# [id number], Process claim through [employer], for questions: . THIS IS NOT INSURANCE.] tramadol 50 mg tablet RxNorm: 047123 2 Tablet(s) PO BID 11/08/2013 04/24/2015 Inactive Xanax 0.25 mg tablet RxNorm: 435757 1 Tablet(s) PO HS PRN as needed 10/19/2013 10/18/2013 Inactive Xanax 0.25 mg tablet RxNorm: 352893 1 Tablet(s) PO HS PRN as needed 10/19/2013 12/12/2013 Inactive Carafate 1 gram tablet RxNorm: 585835 Tablet(s) PO dissolve 1 tab QID x 1 week, then TID x 1 week, then BID x 1 week 09/07/2013 02/26/2015 Inactive omeprazole 20 mg capsule,delayed release RxNorm: 813595 1 Capsule(s) PO daily 09/07/2013 09/06/2013 Inactive omeprazole 20 mg capsule,delayed release RxNorm: 762141 1 Capsule(s) PO daily 09/07/2013 02/26/2014 Inactive prednisone 10 mg tablet RxNorm: 398120 1 Tablet(s) PO 08/25/2013 12/13/2013 Inactive prednisone taper Zithromax Z-Bon 250 mg tablet RxNorm: 673499 Tablet(s) PO as directed 08/25/2013 12/13/2013 Inactive Zithromax Z-Bon 250 mg tablet RxNorm: 242117 Tablet(s) PO as directed 08/04/2013 08/24/2013 Inactive Xanax 0.25 mg tablet RxNorm: 791156 1 Tablet(s) PO HS PRN 08/01/2013 10/18/2013 Inactive Kenalog 40 mg/mL suspension for injection RxNorm: 4036848 Milliliter(s) Inj 08/01/2013 08/01/2013 Inactive tramadol 50 mg tablet RxNorm: 482288 2 Tablet(s) PO BID 05/02/2013 11/07/2013 Inactive carvedilol 25 mg tablet RxNorm: 350933 1 Tablet(s) PO BID 05/02/2013 12/13/2013 Inactive magnesium oxide 400 mg tablet RxNorm: 142271 1 Tablet(s) PO daily 05/02/2013 04/26/2014 Inactive furosemide 20 mg tablet RxNorm: 580284 2 Tablet(s) PO daily 05/02/2013 2014 Inactive amlodipine 5 mg tablet RxNorm: 986617 1 Tablet(s) PO BID 05/02/2013 04/26/2014 Inactive sertraline 100 mg tablet RxNorm: 868251 1 Tablet(s) PO BID 05/02/2013 12/13/2013 Inactive ropinirole 1 mg tablet RxNorm: 303795 1 Tablet(s) PO QPM 05/02/2013 04/26/2014 Inactive pantoprazole 40 mg tablet,delayed release RxNorm: 238530 1 Tablet(s) PO daily 05/02/2013 2014 Inactive gabapentin 600 mg tablet RxNorm: 635510 1 Tablet(s) PO BID 05/02/2013 2014 Inactive aspirin 81 mg tablet,delayed release RxNorm: 311413 1 Tablet(s) PO daily No Start Date Active ferrous fumarate 325 mg (106 mg iron) tablet RxNorm: 934005 1 Tablet(s) PO daily No Start Date 2014 Inactive amlodipine 5 mg tablet RxNorm: 441045 1 Tablet(s) PO BID No Start Date 05/01/2013 Inactive Vitamin B-12 2,500 mcg sublingual tablet RxNorm: 339071 1 Tablet(s) SL daily No Start Date 2014 Inactive Zithromax Z-Bon 250 mg tablet RxNorm: 056162 Tablet(s) PO as directed No Start Date 08/03/2013 Inactive sertraline 100 mg tablet RxNorm: 452028 1 Tablet(s) PO BID No Start Date 05/01/2013 Inactive Hytrin 1 mg tablet RxNorm: 191509 1 Tablet(s) PO BID No Start Date 12/17/2013 Inactive potassium chloride ER 10 mEq capsule,extended release RxNorm: 831658 1 Capsule(s) PO QDAY PRN No Start Date 06/17/2016 Inactive Xanax 0.25 mg tablet RxNorm: 399592 1 Tablet(s) PO HS PRN No Start Date 07/31/2013 Inactive gabapentin 600 mg tablet RxNorm: 941513 1 Tablet(s) PO BID No Start Date 05/01/2013 Inactive ropinirole 1 mg tablet RxNorm: 976396 1 Tablet(s) PO QPM No Start Date 05/01/2013 Inactive Vitamin D3 1,000 unit tablet RxNorm: 871848 2 Tablet(s) PO daily No Start Date 09/11/2015 Inactive furosemide 20 mg tablet RxNorm: 248343 1 Tablet(s) PO BID No Start Date 05/01/2013 Inactive tramadol 50 mg tablet RxNorm: 941985 2 Tablet(s) PO BID No Start Date 05/01/2013 Inactive Carafate 1 gram tablet RxNorm: 723198 Tablet(s) PO dissolve 1 tab QID x 1 week, then TID x 1 week, then BID x 1 week No Start Date 09/06/2013 Inactive pantoprazole 40 mg tablet,delayed release RxNorm: 856045 1 Tablet(s) PO daily No Start Date 05/01/2013 Inactive montelukast 10 mg tablet RxNorm: 830879 1 Tablet(s) PO QHS No Start Date 04/23/2016 Inactive magnesium oxide 400 mg tablet RxNorm: 480817 1 Tablet(s) PO daily No Start Date 05/01/2013 Inactive prednisone 10 mg tablet RxNorm: 819198 1 Tablet(s) PO No Start Date 08/24/2013 Inactive prednisone taper carvedilol 25 mg tablet RxNorm: 354064 1 Tablet(s) PO BID No Start Date 05/01/2013 Inactive baclofen 10 mg tablet RxNorm: 323939 2 Tablet(s) PO daily No Start Date 12/13/2013 Inactive Vitamin B Complex capsule RxNorm: 1 Capsule(s) PO daily No Start Date 2014 Inactive Medication Administered Medication Codes Instructions Start Date Status Kenalog 40 mg/mL suspension for injection RxNorm: 6847513 Milliliter 09/15/2016 No longer Active Kenalog 40 mg/mL suspension for injection RxNorm: 0818789 Milliliter 04/02/2014 No longer Active ceftriaxone 500 mg solution for injection RxNorm: 339431 04/02/2014 No longer Active Kenalog 40 mg/mL suspension for injection RxNorm: 5144672 Milliliter 08/01/2013 No longer Active Immunizations Vaccine Codes Date Status Influenza CVX: 141 01/08/2016 completed Pneumococcal (Adult) CVX: 133 01/08/2016 completed Influenza CVX: 141 01/26/2013 completed Pneumococcal CVX: 33 02/26/2012 completed Tetanus, Diptheria, Pertussis CVX: 113 02/26/2012 completed Tetanus/Diptheria CVX: 113 02/26/2012 completed Assessments Condition Codes Effective Dates Essential (primary) hypertension ICD-10: I10 ICD-9: 401.1 01/25/2018 Chronic kidney disease, stage 3 (moderate) ICD-10: N18.3 ICD-9: 585.3 10/26/2017 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 ICD-9: 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.8 10/06/2017 Localized edema ICD-10: R60.0 ICD-9: 782.3 10/06/2017 Chronic pain syndrome ICD-10: G89.4 ICD-9: 338.4 07/23/2017 Essential (primary) hypertension ICD-10: I10 ICD-9: 401.9 07/23/2017 Generalized anxiety disorder ICD-10: F41.1 ICD-9: 308.0 07/23/2017 Other specified abnormal findings of blood [...] Reason For Visit Effective Dates Notes edema 01/25/2018 edema 10/06/2017 edema 09/27/2017 blood [...] Code Item Item Code Result Date Mayda 053066 MAYDA (MORTEZA) SCREEN NONE DETECTED 06/25/2017 Ra Factor Ncw127 RA FACTOR <10 IU/ml 06/24/2017 D-Dimer D-DIMER [...] 28.6 pg 06/01/2017 Cbc With Differential Ord2 [place]% 5.8 % 06/01/2017 Cbc With Differential Ord2 [...] 2.17 K/ul 06/01/2017 Cbc With Differential Ord2 [place] ABS# 0.3 K/ul 06/01/2017 Cbc With Differential Ord2 Eos ABS# 0.1 K/ul 06/01/2017 Cbc With Differential Ord2 Baso ABS# 0.1 K/ul 06/01/2017 Comp Metabolic Val779 NA 137 mEq/L 06/01/2017 Comp Metabolic Fit615 K 3.7 mEq/L 06/01/2017 Comp Metabolic Nqx692 CL 100 mEq/L 06/01/2017 Comp Metabolic Raf315 CO2 28.0 mEq/L 06/01/2017 Comp Metabolic Mdg999 ANION GAP 13 06/01/2017 Comp Metabolic Enb786 GLUCOSE 94 mg/dL 06/01/2017 Comp Metabolic Isc336 Creat 1.3 mg/dL 06/01/2017 Comp Metabolic Wql951 eGFR 45 ml/min/1.73m2 06/01/2017 Comp Metabolic Wtv759 BUN 12 mg/dL 06/01/2017 Comp Metabolic Cjg858 B/C Ratio 9.6 Ratio 06/01/2017 Comp Metabolic Nua110 CALCIUM 9.5 mg/dL 06/01/2017 Comp Metabolic Vgt406 ALK PHOS 77 U/L 06/01/2017 Comp Metabolic Ibd841 AST(SGOT) 17 U/L 06/01/2017 Comp Metabolic Nie754 ALT(SGPT) 15 U/L 06/01/2017 Comp Metabolic Jzm719 BILI T 0.5 mg/dL 06/01/2017 Comp Metabolic Bfm686 ALBUMIN 4.4 g/dL 06/01/2017 Comp Metabolic Bua951 TPRO 7.0 g/dL 06/01/2017 Comp Metabolic Iqg022 GLOB 2.6 g/dL 06/01/2017 Comp Metabolic Pwh683 A/G Ratio 1.7 Ratio 06/01/2017 Comp Metabolic Cyj424 Osmo 273 mOsmo 06/01/2017 Mayda [id number] MAYDA (MORTEZA) SCREEN NONE DETECTED 06/22/2016 C-Reactive Protein Qnt Crqnt CRP 0.3 mg/dl 06/19/2016 Sed Rate Ord21 ESR 11 mm/hr 06/19/2016 Ra Factor Rln458 RA FACTOR <10 IU/ml 06/19/2016 Sed Rate Ord21 ESR 14 mm/hr 02/25/2016 C-Reactive Protein Qnt Crqnt CRP 0.3 mg/dl 02/25/2016 Comp Metabolic Rvw811 NA 136 mEq/L 02/25/2016 Comp Metabolic Izu300 K 3.9 mEq/L 02/25/2016 Comp Metabolic Vra159 CL 103 mEq/L 02/25/2016 Comp Metabolic Bti415 CO2 27.0 mEq/L 02/25/2016 Comp Metabolic Gcc287 ANION GAP 10 02/25/2016 Comp Metabolic Wmv384 GLUCOSE 82 mg/dL 02/25/2016 Comp Metabolic Xmg746 Creat 1.3 mg/dL 02/25/2016 Comp Metabolic Xan682 eGFR 45 ml/min/1.73m2 02/25/2016 Comp Metabolic Pxd552 BUN 13 mg/dL 02/25/2016 Comp Metabolic Kmh233 B/C Ratio 10.3 Ratio 02/25/2016 Comp Metabolic Hfr902 CALCIUM 9.5 mg/dL 02/25/2016 Comp Metabolic Mup792 ALK PHOS 70 U/L 02/25/2016 Comp Metabolic Nnm128 AST(SGOT) 17 U/L 02/25/2016 Comp Metabolic Oom609 ALT(SGPT) 13 U/L 02/25/2016 Comp Metabolic Iyy620 BILI T 0.4 mg/dL 02/25/2016 Comp Metabolic Wys645 ALBUMIN 4.2 g/dL 02/25/2016 Comp Metabolic Vlm020 TPRO 6.6 g/dL 02/25/2016 Comp Metabolic Pbd046 GLOB 2.4 g/dL 02/25/2016 Comp Metabolic Jdd199 A/G Ratio 1.7 Ratio 02/25/2016 Comp Metabolic Xlr403 Osmo 271 mOsmo 02/25/2016 Cbc With Differential [...] 29.1 pg 02/25/2016 Cbc With Differential Ord2 [place]% 6.8 % 02/25/2016 Cbc With Differential Ord2 [...] 1.62 K/ul 02/25/2016 Cbc With Differential Ord2 [place] ABS# 0.4 K/ul 02/25/2016 Cbc With Differential Ord2 Eos ABS# 0.1 K/ul 02/25/2016 Cbc With Differential Ord2 Baso ABS# 0.0 K/ul 02/25/2016 Tsh Ord6 hTSH II 1.63 uIU/mL 02/25/2016 [place] Spotted Fever Igg/Igm 103723 [place] SPOTTED FEVER IGM EIA . 09/17/2015 [place] Spotted Fever Igg/Igm 131930 RMSF, IGM 0.27 index 09/17/2015 [place] Spotted Fever Igg/Igm 336589 BENIG[place] MT SPOTTED FEVER IGG EIA FLEX . 09/17/2015 [place] Spotted Fever Igg/Igm 064829 RMSF, IGG SCREEN-FLEX Negative 09/17/2015 Ehrlichia Chaffeensis Antibody Igm 927646 EHRLICHIA CHAFFEENSIS IGM < 1:16 09/16/2015 Ehrlichia Chaffeensis Antibody Igg 377559 EHRLICHIA CHAFFEENSIS IGG 1:256 09/16/2015 Lymes Disease Total Antibodies With Western Blot Reflex [id number] B. BURGDORFERI, IGG/IGM 0.10 LI 09/14/2015 Lymes Disease Total Antibodies With Western Blot Reflex [id number] 09/14/2015 Vitamin D 25 Oh Kuo3209 VITAMIN D, 25 HYDROXY 59.60 ng/mL 09/13/2015 Sed Rate Ord21 ESR 10 mm/hr 09/12/2015 Comp Metabolic Zcz948 NA 139 mEq/L 09/12/2015 Comp Metabolic Ptp269 K 3.8 mEq/L 09/12/2015 Comp Metabolic Bfl537 CL 103 mEq/L 09/12/2015 Comp Metabolic Btm196 CO2 27.0 mEq/L 09/12/2015 Comp Metabolic Bgu321 ANION GAP 13 09/12/2015 Comp Metabolic Soq582 GLUCOSE 91 mg/dL 09/12/2015 Comp Metabolic Jov424 Creat 1.2 mg/dL 09/12/2015 Comp Metabolic Qxz407 eGFR 47 ml/min/1.73m2 09/12/2015 Comp Metabolic Ksf255 BUN 20 mg/dL 09/12/2015 Comp Metabolic Mtg636 B/C Ratio 16.3 Ratio 09/12/2015 Comp Metabolic Nyf107 CALCIUM 9.3 mg/dL 09/12/2015 Comp Metabolic Duz400 ALK PHOS 55 U/L 09/12/2015 Comp Metabolic Yal867 AST(SGOT) 19 U/L 09/12/2015 Comp Metabolic Sfl152 ALT(SGPT) 14 U/L 09/12/2015 Comp Metabolic Jod905 BILI T 0.6 mg/dL 09/12/2015 Comp Metabolic Mhz140 ALBUMIN 4.3 g/dL 09/12/2015 Comp Metabolic Bwy689 TPRO 6.8 g/dL 09/12/2015 Comp Metabolic Jlh859 GLOB 2.5 g/dL 09/12/2015 Comp Metabolic Jig756 A/G Ratio 1.8 Ratio 09/12/2015 Comp Metabolic Mxq688 Osmo 280 mOsmo 09/12/2015 B12 Lxi656 B12 >1500.00 pg/ml 09/12/2015 Cbc With Differential [...] 28.9 pg 09/12/2015 Cbc With Differential Ord2 [place]% 5.9 % 09/12/2015 Cbc With Differential Ord2 [...] 1.33 K/ul 09/12/2015 Cbc With Differential Ord2 [place] ABS# 0.3 K/ul 09/12/2015 Cbc With Differential Ord2 Eos ABS# 0.1 K/ul 09/12/2015 Cbc With Differential Ord2 Baso ABS# 0.0 K/ul 09/12/2015 Tsh Ord6 hTSH II 1.88 uIU/mL 09/12/2015 Review of Systems System Result Effective Dates Constitutional No anorexia 01/25/2018 Constitutional No night [...] Full Exam - General 1994 Neurologic coordination Vpsydd-cygy-hdquca testing - left: dysmetria 05/11/2017 None Full Exam - General 1994 Neurologic coordination Clinfh-wzql-xvciit testing - right: dysmetria 05/11/2017 None Full [...] Full Exam - General 1994 Neurologic coordination Iopmnh-jghh-zeoxka testing - left: dysmetria 04/20/2016 None Full Exam - General 1994 Neurologic coordination Zmevti-jjet-qpdjpu testing - right: dysmetria 04/20/2016 None Full [...] Full Exam - General 1994 Neurologic coordination Msjkwu-xzkn-pgdedm testing - left: dysmetria 02/25/2016 None Full Exam - General 1994 Neurologic coordination Tnlayk-vanr-pignmy testing - right: dysmetria 02/25/2016 None Full [...] Full Exam - General 1994 Neurologic coordination Fcltbq-mvgy-mokndv testing - left: dysmetria 01/28/2016 None Full Exam - General 1994 Neurologic coordination Jcqoth-ttjp-qlonpp testing - right: dysmetria 01/28/2016 None Full [...] None Full Exam - General 1995 Ears/Nose/Throat otoscopic exam Overall: tympanic membranes clear 04/18/2013 None Full Exam - General 1995 Ears/Nose/Throat lips/teeth/gingiva Overall: benign lips 04/18/2013 None Full Exam - General 1995 Ears/Nose/Throat lips/teeth/gingiva Overall: normal dentition 04/18/2013 None Full Exam - General 1995 [...] Procedure Codes Date THER/PROPH/DIAG INJ SC/IM CPT-4: 83001 09/15/2016 TRIAMCINOLONE ACET INJ NOS CPT-4: J3301 09/15/2016 ADMIN INFLUENZA VIRUS VAC CPT-4: G0008 01/08/2016 ADMIN PNEUMOCOCCAL VACCINE SNOMED CT: 35074707 CPT-4: G0009 01/08/2016 PNEUMOCOCCAL VACC 13 RIVERA IM Formatting Model/CDA Sections, Assigned to/Aliya Muñoz SNOMED CT: 14075131 CPT-4: 68742Rsijlbq 01/08/2016 FLU VACC 4 RIVERA 3 YRS PLUS IM SNOMED CT: 06799523 CPT-4: 38002 01/08/2016 THER/PROPH/DIAG INJ SC/IM CPT-4: 89294 04/02/2014 TRIAMCINOLONE ACET INJ NOS CPT-4: J3301 04/02/2014 ROCEPHIN, PER 250 MG CPT- 4: J0696 04/02/2014 TRIAMCINOLONE ACET INJ NOS CPT-4: J3301 08/01/2013 THER/PROPH/DIAG INJ SC/IM CPT-4: 72778 08/01/2013 Vital Signs Date Vital 01/25/2018 Blood Pressure 1: 130/68 Code: 8480-6 BMI: 34.4 Code: 40886-8 Heart Rate 1: 91 bpm Height: 5'5" SpO2: 95% Weight: 207 lbs 10/06/2017 Blood Pressure 1: 118/78 Code: 8480-6 BMI: 34.3 Code: 90397-9 Heart Rate 1: 75 bpm Height: 5'5" SpO2: 98% Weight: 206 lbs 09/27/2017 Blood Pressure 1: 136/88 Code: 8480-6 BMI: 35.4 Code: 98385-4 Heart Rate 1: 86 bpm Height: 5'5" SpO2: 98% Weight: 213 lbs 07/23/2017 Blood Pressure 1: 106/58 Code: 8480-6 BMI: 34.8 Code: 43415-0 Heart Rate 1: 70 bpm Height: 5'5" SpO2: 96% Weight: 209 lbs 06/01/2017 Blood Pressure 1: 150/96 Code: 8480-6 BMI: 34.4 Code: 09930-8 Heart Rate 1: 82 bpm Height: 5'5" SpO2: 99% Weight: 207 lbs 05/11/2017 Blood Pressure 1: 144/90 Code: 8480-6 BMI: 34.6 Code: 09844-5 Heart Rate 1: 76 bpm Height: 5'5" SpO2: 98% Weight: 208 lbs 10/30/2016 Blood Pressure 1: 172/104 Code: 8480-6 Blood Pressure 1: 158/98 Code: 8480-6 BMI: 34.7 Code: 82307-0 Heart Rate 1: 70 bpm Height: 5'5" SpO2: 97% Temperature: 36.2 (C) / 97.1 (F) Weight: 208 lbs 10 oz 04/20/2016 Blood Pressure 1: 144/86 Code: 8480-6 BMI: 34.3 Code: 34481-1 Heart Rate 1: 68 bpm Height: 5'5" SpO2: 97% Weight: 206 lbs 02/25/2016 Blood Pressure 1: 122/82 Code: 8480-6 BMI: 34.4 Code: 39011-0 Heart Rate 1: 86 bpm Height: 5'5" SpO2: 94% Weight: 207 lbs 01/28/2016 Blood Pressure 1: 128/86 Code: 8480-6 BMI: 33.3 Code: 13192-8 Heart Rate 1: 86 bpm Height: 5'5" SpO2: 96% Weight: 200 lbs 11/14/2015 Blood Pressure 1: 140/90 Code: 8480-6 Blood Pressure 1: 138/88 Code: 8480-6 BMI: 33.3 Code: 00866-0 Heart Rate 1: 98 bpm Height: 5'5" SpO2: 97% Weight: 200 lbs 10/10/2015 Blood Pressure 1: 132/80 Code: 8480-6 BMI: 33.3 Code: 55363-6 Heart Rate 1: 74 bpm Height: 5'5" SpO2: 96% Weight: 200 lbs 09/12/2015 Blood Pressure 1: 148/90 Code: 8480-6 BMI: 32.9 Code: 24717-0 Heart Rate 1: 94 bpm Height: 5'5" SpO2: 97% Weight: 198 lbs 04/09/2015 Blood Pressure 1: 160/82 Code: 8480-6 Blood Pressure 1: 130/84 Code: 8480-6 BMI: 32.4 Code: 63277-8 Heart Rate 1: 74 bpm Height: 5'5" SpO2: 95% Weight: 195 lbs 10/05/2014 Blood Pressure 1: 140/80 Code: 8480-6 BMI: 30.5 Code: 77379-4 Heart Rate 1: 79 bpm Height: 5'5" SpO2: 98% Weight: 183 lbs 09/07/2014 Blood Pressure 1: 142/96 Code: 8480-6 BMI: 32.1 Code: 96370-5 Heart Rate 1: 72 bpm Height: 5'5" SpO2: 98% Temperature: 36.5 (C) / 97.7 (F) Weight: 193 lbs 07/16/2014 Blood Pressure 1: 138/82 Code: 8480-6 BMI: 31.8 Code: 55072-2 Heart Rate 1: 76 bpm Height: 5'5" Weight: 191 lbs 04/02/2014 Blood Pressure 1: 148/90 Code: 8480-6 BMI: 33.8 Code: 98883-6 Heart Rate 1: 68 bpm Height: 5'5" Temperature: 36.9 (C) / 98.4 (F) Weight: 203 lbs 12/14/2013 Blood Pressure 1: 140/88 Code: 8480-6 BMI: 35.3 Code: 56931-9 Heart Rate 1: 91 bpm Height: 5'5" SpO2: 97% Weight: 212 lbs 08/01/2013 Blood Pressure 1: 126/68 Code: 8480-6 BMI: 35.1 Code: 86071-6 Heart Rate 1: 76 bpm Height: 5'5" Temperature: 36.7 (C) / 98.1 (F) Weight: 211 lbs 05/02/2013 Blood Pressure 1: 118/86 Code: 8480-6 BMI: 34.9 Code: 93292-1 Heart Rate 1: 76 bpm Height: 5'5" Weight: 209 lbs 8 oz 04/18/2013 Blood Pressure 1: 118/60 Code: 8480-6 BMI: 35.3 Code: 53025-7 Heart Rate 1: 68 bpm Height: 5'5" Weight: 212 lbs Functional Status No Functional Status data History of Present Illness Symptom Name Status Result Effective Date Notes edema Quality acute 01/25/2018 None edema Quality [...] data Encounters Encounter Performer Location Codes Date ([id number]) 91191 EST. PATIENT, LEVEL III Diagnosis: Essential (primary) hypertension[ICD10: I10] Marilyn Lao MD, [facility] CPT-4: 81253 01/25/2018 ([id number]) 42325 EST. PATIENT, LEVEL III Diagnosis: Nail dystrophy[ICD10: L60.3] Diagnosis: Localized edema[ICD10: R60.0] Marilyn Lao MD, [facility] CPT-4: 73659 10/06/2017 ([id number]) 82168 EST. PATIENT, LEVEL IV Diagnosis: Essential (primary) hypertension[ICD10: I10] Diagnosis: Localized edema[ICD10: R60.0] Marilyn Lao MD, [facility] CPT-4: 45802 09/27/2017 ([id number]) 94227 EST. PATIENT, LEVEL IV Diagnosis: Generalized anxiety disorder[ICD10: F41.1] Diagnosis: Essential (primary) hypertension[ICD10: I10] Diagnosis: Chronic pain syndrome[ICD10: G89.4] Noa Lao MD, [facility] CPT-4: 95915 07/23/2017 ([id number]) 09014 EST. PATIENT, LEVEL IV Diagnosis: Essential (primary) hypertension[ICD10: I10] Diagnosis: Chest pain, unspecified[ICD10: R07.9] Diagnosis: Chronic kidney disease, stage 3 (moderate)[ICD10: N18.3] Noa Lao MD, [facility] CPT-4: 53647 06/01/2017 48441 EST. PATIENT, LEVEL IV Diagnosis: Gastro-esophageal reflux disease without esophagitis[ICD10: K21.9] Anais Lao MD, [facility] CPT-4: 79217 05/11/2017 ([id number]) 88858 EST. PATIENT, LEVEL III Diagnosis: Essential (primary) hypertension[ICD10: I10] Diagnosis: Contusion of right lower leg, initial encounter[ICD10: S80.11XA] Noa Lao MD, [facility] CPT-4: 76238 10/30/2016 ([id number]) 21190 EST. PATIENT, LEVEL IV Diagnosis: Essential (primary) hypertension[ICD10: I10] Diagnosis: Generalized anxiety disorder[ICD10: F41.1] Marilyn Lao MD, [facility] CPT-4: 99618 04/20/2016 [id number]) 00038 EST. PATIENT, LEVEL IV Diagnosis: Essential (primary) hypertension[ICD10: I10] Diagnosis: Chronic kidney disease, stage 3 (moderate)[ICD10: N18.3] Diagnosis: Generalized anxiety disorder[ICD10: F41.1] Diagnosis: Major depressive disorder, recurrent, moderate[ICD10: F33.1] Diagnosis: Shortness of breath[ICD10: R06.02] Noa Lao MD, [facility] CPT- 4: 93075 02/25/[id number]) 72563 EST. PATIENT, LEVEL IV Diagnosis: Generalized anxiety disorder[ICD10: F41.1] Diagnosis: Major depressive disorder, recurrent, moderate[ICD10: F33.1] Diagnosis: Essential (primary) hypertension[ICD10: I10] Diagnosis: Restless legs syndrome[ICD10: G25.81] Diagnosis: Myalgia[ICD10: M79.1] Noa Lao MD, [facility] CPT-4: 04068 01/28/2016 [id number]) 11614 EST. PATIENT, LEVEL III Diagnosis: Essential (primary) hypertension[ICD10: I10] Diagnosis: Insomnia, unspecified[ICD10: G47.00] Noa Lao MD, [facility] CPT-4: 71967 11/14/2015 [id number]) 11508 EST. 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 PATIENT, LEVEL IV Diagnosis: Bitten or stung by nonvenomous insect and other nonvenomous arthropods, initial encounter[ICD10: W57.XXXA] Diagnosis: Other fatigue[ICD10: R53.83] Diagnosis: Vitamin D deficiency, unspecified[ICD10: E55.9] Diagnosis: Other vitamin B12 deficiency anemias[ICD10: D51.8] Diagnosis: Essential (primary) hypertension[ICD10: I10] Diagnosis: Iron deficiency[ICD10: E61.1] Noa Lao MD, [facility] CPT-4: 33904 09/12/2015 ([id number]) 93855 EST. PATIENT, LEVEL III Diagnosis: Essential (primary) hypertension[ICD10: I10] Diagnosis: Chronic kidney disease, stage 3 (moderate)[ICD10: N18.3] Noa Lao MD, [facility] CPT-4: 79056 04/09/2015 ([id number]) 69419 EST. PATIENT, LEVEL III Diagnosis: ESSENTIAL HYPERTENSION[ICD9: 401.9] Noa Lao MD [facility] CPT-4: 36577 10/05/2014 ([id number]) 63312 EST. PATIENT, LEVEL IV Diagnosis: Easy bruising[ICD9: 782.9] Diagnosis: Iron deficiency anemia[ICD9: 280.9] Diagnosis: ESSENTIAL HYPERTENSION[ICD9: 401.9] Diagnosis: Chronic kidney disease, stage 3[ICD9: 585.3] Noa Lao MD, [facility] CPT-4: 83371 09/07/2014 ([id number]) 74555 EST. PATIENT, LEVEL III Diagnosis: Shingles[ICD9: 053.9] Marilyn Lao MD, [facility] CPT-4: 00362 07/16/2014 ([id number]) 52145 EST. PATIENT, LEVEL III Diagnosis: PNEUMONIA (CAP)[ICD9: 486] Diagnosis: COUGH[ICD9: 786.2] Marilyn Lao MD, [facility] CPT-4: 79454 04/02/2014 ([id number]) 74265 EST. PATIENT, LEVEL III Diagnosis: ESSENTIAL HYPERTENSION[ICD9: 401.9] Diagnosis: Rib pain on left side[ICD9: 786.50] Diagnosis: EDEMA[ICD9: 782.3] Noa Lao MD, [facility] CPT-4: 73114 12/14/2013 ([id number]) 30071 EST. PATIENT, LEVEL IV Diagnosis: ESOPHAGEAL REFLUX[ICD9: 530.81] Diagnosis: Urge incontinence[ICD9: 788.31] Diagnosis: Elbow pain, right[ICD9: 719.42] Diagnosis: Snoring[ICD9: 786.09] Marilyn Lao MD, [facility] CPT-4: 59178 08/01/2013 ([id number]) 72334 EST. PATIENT, LEVEL IV Diagnosis: ESSENTIAL HYPERTENSION[SNOMED: 88535559] Diagnosis: EDEMA[ICD9: 782.3] Diagnosis: Chronic renal insufficiency, stage III (moderate)[ICD9: 585.3] Diagnosis: HYPERLIPIDEMIA[ICD9: 272.4] Marilyn Lao MD, [facility] CPT-4: 41702 05/02/2013 ([id number]) 81144 EST. PATIENT, LEVEL IV Diagnosis: ESSENTIAL HYPERTENSION[SNOMED: 94865501] Diagnosis: Restless leg[ICD9: 333.94] Marilyn Lao MD, [facility] CPT-4: 31874 04/18/2013 Plan of Care Planned Activity Notes Codes Status Date Visit Plan: Hypertension - well controlled - continue with current medications, continue with no added salt diet. Pt has been encouraged to exercise daily. The pt has been advised to call the office if there are any acute concerns about change in blood pressure readings at home. 01/25/2018 Appointment: Marilyn Lao WPtel: [facility] (15 min) Moderate 01/25/2018 Patient Education: Patient Medication Summary Completed 01/25/2018 Appointment: Marilyn Lao WPtel: [address] [place], [place] [address] (15 min) Moderate 01/06/2018 Patient Education: Patient Medication Summary Completed 10/26/2017 Care Plan: Comp Metabolic Cancelled 10/26/2017 Visit Plan: Tinea/Onychodystrophy - penlac prescribed, pt did not want to take medication by mouth for treatment. Edema - improved - continue current regimen. 10/06/2017 Appointment: Marily[facility]Ptel[facility] ([facility] min) Moderate 10/06/2017 Patient Education: Patient [...] home. 09/27/2017 Appointment: [facility]el[facility] [phone] [facility] (15 min) Moderate 09/27/2017 Patient Education: [...] pain-recommend massage 07/23/2017 [facility]ment: [facility] [address] [phone] [place] (15 min) Moderate 07/23/2017 Patient Education: [...] worsens 06/01/2017 Appointment: Noa Orlando WPtel: [phone] [phone] [place] (30 min) Complex 06/01/2017 Patient Education: Patient Medication Summary Completed 06/01/2017 Care Plan: Referral Order SNOMED-CT : 623039715 Pending 06/01/2017 Visit Plan: Esophageal Reflux - the patient has been counseled against excessive intake of caffeine, spicy foods, peppermint, and cinnamon - all of which can exacerbate esophageal reflux. The patient is to take med ications as prescribed and call the office if the symptoms are not improving. 05/11/2017 Appointment: Anais Arrieta WPtel: [phone] [phone] (15 min) Moderate 05/11/2017 Patient Education: Patient [...] Summary Completed 09/15/2016 Appointment: Marilyn Lao WPtel: [facility] [place] (15 min) Moderate 08/19/2016 Patient Education: Patient [...] current medications. 04/20/2016 Appointment: Marilyn Lao WPtel: [facility] (30 min) Complex 04/20/2016 Patient Education: Patient Medication Summary Completed 04/20/2016 Patient Education: Obesity Completed 04/20/2016 Patient Education: Hypertension Completed 04/20/2016 Appointment: Noa Orlando WPtel: [address] [place], [place] [phone] (30 min) Complex 03/16/2016 Referral: Ta Santacruz [...] for follow up. Chronic renal disease-check labs Tmbxsqe-ofkorhpbde-cjjeavda with cymbalta-continue same dose for now -may take xanax TID PRN Multiple joint pain-check labs including inflammatory markers 02/25/2016 Appointment: Noa Orlando WPtel: [phone] (30 min) Complex 02/25/2016 Patient Education: Patient Medication Summary Completed 02/25/2016 Patient Education: Obesity Completed 02/25/2016 Patient Education: Hypertension Completed 02/25/2016 Care Plan: Referral Order SNOMED-CT : 046364644 Pending 02/25/2016 Visit Plan: Anxiety/Depression - the [...] in blood pressure readings at home. Restless jtm-qhkuha-entuzail requip to twice daily-monitor symptoms Myalgias-stop pravastatin 01/28/2016 Appointment: Noa Orlando WPtel: [phone] [phone] (30 min) Complex 01/28/2016 Patient Education: Patient [...] Hypertension Completed 10/10/2015 Appointment: Marilyn Lao WPtel: [facility] (15 min) Moderate 10/08/2015 Visit Plan: Hypertension - well controlled - continue with current medications, continue with no added salt diet. Pt has been encouraged to exercise daily. The pt has been advised to call the office if there are any acute concerns about change in blood pressure readings at home. 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 Antibiotics started. The pt is aware of the diagnosis and the need for acute treatment of this illness. 04/02/2014 Patient Education: Patient Medication Summary Completed 04/02/2014 Appointment: Marilyn Lao WPtel: [address] [place], [place] [phone] Sick 12/27/2013 Patient Education: Patient Medication Summary [...] further attempt to reduce peripheral edema. Night eqnhlq-aoxoymf-qfpgk labs 12/14/2013 Appointment: Follow up 12/14/2013 Patient Education: Patient Medication Summary Completed 12/14/2013 Patient Education: Hypertension Completed 12/14/2013 Appointment: Noa Orlando WPtel[phone] [place] Sick 12/01/2013 Appointment: Marilyn Lao WPtel: [facility] Sick 11/30/2013 Visit Plan: Allergies - chronic [...] monitor symptoms. 08/01/2013 Appointment: [facility]ily[facility]Ptel[facility] [phone] [facility] Follow up 08/01/2013 Patient Education: Patient Medication [...] as able. 05/02/2013 Appointment: Marily[facility]Ptel[facility] [phone] [facility] Follow up 05/02/2013 Patient Education: Patient [...] orange juice. 04/18/2013 Appointment: Marilyn Lao WPtel: [facility] New Patient 04/18/2013 Patient Education: Patient Medication Summary Completed 04/18/2013 Patient Education: Hypertension Completed 04/18/2013 Referral: Ta Santacruz Referral Appointment Requested Referral: Ta Santacruz Referral Appointment Requested Instructions Comment stop the amlodipine - it will take [...] viberzi provided and instructed on use. . 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 start on the azithromycin today start on [...] further attempt to reduce peripheral edema. Night rowfps-pbqzify-qjswx labs . Shingles - Herpes Zoster - acute [...] at home. Iron deficiency-B12 deficiency-check labs Tick vagw-xmgpjdk-lmwjk tick panel . Hypertension - well controlled [...] for follow up. Chronic renal disease-check labs Lrmheen-mesintjulb-bsbbanul with cymbalta-continue same dose for now -may [...] in blood pressure readings at home. Restless rlc-aucmha-jbfgjnqz requip to twice daily-monitor symptoms Myalgias-stop pravastatin [...]
--- OUTSIDE RECORDS SUMMARY | 2018-11-04 15:50 | XMS REPORT | CCD ---
Author Author Marilyn Lao Organization Marilyn Lao MD, [facility] Address [address] [place] [address] Phone Care Team Providers Care Book Store Associate Name Role Phone PP Unavailable CCM Unavailable Summary Purpose Interface Exchange Insurance Providers Payer name Policy type / Coverage type Covered green party ID Effective Begin Date Effective End Date WPS Medicare Part B Medicare Part B [id number] Unknown [employer] and Life Medicare Part B [id number] Unknown Family history Mother Diagnosis Age At [...] Description Effective Dates Tobacco history SNOMED CT: 516423676 Never smoker but had significant smoke exposure during first marriage, [place]. 08/01/2013 Employment Unknown Retired doing as needed working for the [employer]. 05/02/2013 Marital status Unknown 04/18/[address]: 682418743 Never drinks alcohol 04/18/2013 Has the patient [...] Instructions doxycycline hyclate 100 mg tablet RxNorm: 9752828 1 Tablet(s) PO BID 07/12/2018 07/25/2018 Active ropinirole 1 mg tablet RxNorm: 833308 TAKE TWO TABLETS BY MOUTH EVERY NIGHT AT BEDTIME 07/04/2018 03/30/2019 Active Carafate 1 gram tablet RxNorm: 474316 TAKE ONE TABLET BY MOUTH FOUR TIMES A DAY 07/04/2018 10/01/2018 Active montelukast 10 mg tablet RxNorm: 699087 TAKE ONE TABLET BY MOUTH EVERY NIGHT AT BEDTIME 07/04/2018 03/30/2019 Active losartan 100 mg tablet RxNorm: 655815 1 Tablet(s) PO daily 05/04/2018 01/28/2019 Active tramadol 50 mg tablet RxNorm: 214992 2 Tablet(s) PO BID 04/26/2018 06/24/2018 Inactive Xanax 0.5 mg tablet RxNorm: 898704 1 Tablet(s) PO TID PRN as needed 04/04/2018 07/31/2018 Active alprazolam 0.5 mg tablet RxNorm: 578997 1/2-1 Tablet(s) PO TID PRN as needed 04/04/2018 06/01/2018 Inactive tramadol 50 mg tablet RxNorm: 864714 2 Tablet(s) PO BID 12/01/2017 01/29/2018 Inactive Cymbalta 60 mg capsule,delayed release RxNorm: 544560 TAKE ONE CAPSULE BY MOUTH DAILY 11/10/2017 11/04/2018 Active furosemide 40 mg tablet RxNorm: 668104 1 Tablet(s) PO daily 10/26/2017 10/20/2018 Active alprazolam 0.5 mg tablet RxNorm: 483062 1/2-1 Tablet(s) PO TID PRN as needed 10/12/2017 12/10/2017 Inactive Ciclodan 8 % topical solution RxNorm: 1013894 1 Application TOP daily x 7 days, clean off with alcohol then restart cycle of application until fungal infection is completely cleared 10/06/2017 01/03/2018 Inactive omeprazole 20 mg capsule,delayed release RxNorm: 008897 TAKE ONE CAPSULE BY MOUTH DAILY 10/04/2017 01/24/2018 Inactive losartan 100 mg tablet RxNorm: 608554 1 Tablet(s) PO daily 09/27/2017 03/24/2018 Inactive Xanax 0.25 mg tablet RxNorm: 683502 1 Tablet(s) PO TID PRN as needed 08/13/2017 10/11/2017 Inactive Xanax 0.5 mg tablet RxNorm: 125775 1 Tablet(s) PO TID PRN as needed 07/23/2017 11/18/2017 Inactive ropinirole 1 mg tablet RxNorm: 311487 TAKE TWO TABLETS BY MOUTH EVERY NIGHT AT BEDTIME 06/28/2017 06/22/2018 Inactive montelukast 10 mg tablet RxNorm: 417041 TAKE ONE TABLET BY MOUTH EVERY NIGHT AT BEDTIME 06/28/2017 06/22/2018 Inactive furosemide 20 mg tablet RxNorm: 375505 TAKE TWO TABLETS BY MOUTH DAILY FOR 7 DAYS THEN TAKE ONE TABLET BY MOUTH DAILY 06/28/2017 10/01/2017 Inactive losartan 50 mg tablet RxNorm: 784284 1 Tablet(s) PO daily 06/01/2017 09/26/2017 Inactive labetalol 100 mg tablet RxNorm: 935730 TAKE ONE TABLET BY MOUTH TWICE A DAY 05/26/2017 05/30/2017 Inactive labetalol 100 mg tablet RxNorm: 180694 1 Tablet(s) PO BID 05/26/2017 05/20/2018 Inactive Protonix 40 mg tablet,delayed release RxNorm: 151923 1 Tablet(s) PO daily 05/26/2017 05/20/2018 Inactive amlodipine 5 mg tablet RxNorm: 642970 TAKE ONE TABLET BY MOUTH TWICE A DAY 05/26/2017 09/26/2017 Inactive Protonix 40 mg tablet,delayed release RxNorm: 234950 1 Tablet(s) PO daily 05/11/2017 05/25/2017 Inactive Carafate 1 gram tablet RxNorm: 263806 1 Tablet(s) PO QID 05/11/2017 09/07/2017 Inactive Cymbalta 60 mg capsule,delayed release RxNorm: 129341 TAKE ONE CAPSULE BY MOUTH DAILY 05/05/2017 10/31/2017 Inactive Xanax 0.25 mg tablet RxNorm: 400147 1 Tablet(s) PO TID PRN as needed 02/09/2017 06/07/2017 Inactive Cymbalta 60 mg capsule,delayed release RxNorm: 900888 TAKE ONE CAPSULE BY MOUTH DAILY 10/28/2016 04/25/2017 Inactive Xanax 0.25 mg tablet RxNorm: 308285 1 Tablet(s) PO TID PRN as needed 10/08/2016 12/06/2016 Inactive NEED TO GIVE #90 WITH NEXT REFILL Kenalog 40 mg/mL suspension for injection RxNorm: 9323424 Milliliter(s) Inj 09/15/2016 09/15/2016 Inactive tramadol 50 mg tablet RxNorm: 931143 Tablet(s) TAKE 2 TABLETS BY MOUTH TWICE DAILY 08/18/2016 02/12/2017 Inactive Generic For:ULTRAM 50 MG TABLET N O T I C E Last quantity doesn't match original quantity(Response to an electronic controlled substance refill request - RxReferenceNumber: [id number]) potassium chloride ER 10 mEq capsule,extended release RxNorm: 846833 TAKE ONE CAPSULE BY MOUTH DAILY NEEDED 08/03/2016 01/29/2017 Inactive potassium chloride ER 10 mEq capsule,extended release RxNorm: 261187 1 Capsule(s) PO QDAY PRN 06/18/2016 08/02/2016 Inactive furosemide 20 mg tablet RxNorm: 672425 1 Tablet(s) PO daily as needed for swelling 06/18/2016 06/12/2017 Inactive 2 daily x 1 week then daily Carafate 1 gram tablet RxNorm: 239684 1 Tablet(s) PO daily 04/24/2016 04/18/2017 Inactive Cymbalta 60 mg capsule,delayed release RxNorm: 223791 1 Capsule(s) PO daily 04/24/2016 10/20/2016 Inactive montelukast 10 mg tablet RxNorm: 940345 1 Tablet(s) PO QHS 04/24/2016 04/18/2017 Inactive omeprazole 20 mg capsule,delayed release RxNorm: 358576 Capsule(s) 1 Capsule(s) PO daily 04/24/2016 05/31/2017 Inactive ropinirole 1 mg tablet RxNorm: 920974 2 Tablet(s) PO QHS 04/24/2016 04/18/2017 Inactive furosemide 20 mg tablet RxNorm: 376110 1 Tablet(s) PO daily as needed for swelling 04/24/2016 06/17/2016 Inactive labetalol 100 mg tablet RxNorm: 301422 1 Tablet(s) PO BID 04/24/2016 04/18/2017 Inactive amlodipine 5 mg tablet RxNorm: 179803 Tablet(s) TAKE 1 TABLET BY MOUTH TWICE DAILY 04/24/2016 04/18/2017 Inactive Transferring from [facility] Xanax 0.25 mg tablet RxNorm: 175340 1 Tablet(s) PO TID PRN as needed 02/25/2016 03/25/2016 Inactive NEED TO GIVE #90 WITH NEXT REFILL Xanax 0.25 mg tablet RxNorm: 310499 1 Tablet(s) PO BID PRN as needed 02/19/2016 02/24/2016 Inactive [SAVINGS FOR UNINSURED PATIENTS -- BIN:950816, PCN: ASPROD1, Group: AME08, ID# [id number], Process claim through [employer], for questions: . THIS IS NOT INSURANCE.] Cymbalta 60 mg capsule,delayed release RxNorm: 015859 1 Capsule(s) PO daily 01/28/2016 04/23/2016 Inactive ropinirole 1 mg tablet RxNorm: 386180 1 Tablet(s) PO BID TAKE 1 TABLET BY MOUTH DAILY EVERY NIGHT 01/28/2016 04/23/2016 Inactive Generic For:REQUIP 1 MG TABLET tramadol 50 mg tablet RxNorm: 493919 Tablet(s) TAKE 2 TABLETS BY MOUTH TWICE DAILY 01/16/2016 07/13/2016 Inactive Generic For:ULTRAM 50 MG TABLET N O T I C E Last quantity doesn't match original quantity(Response to an electronic controlled substance refill request - RxReferenceNumber: [id number]) omeprazole 20 mg capsule,delayed release RxNorm: 221912 1 Tablet(s) PO daily 1 Capsule(s) PO daily 12/11/2015 04/23/2016 Inactive pravastatin 10 mg tablet RxNorm: 290094 1 Tablet(s) PO QHS TAKE 1 TABLET BY MOUTH EVERY NIGHT 11/28/2015 01/27/2016 Inactive Generic For:PRAVACHOL 10 MG TABLET furosemide 20 mg tablet RxNorm: 523793 1 Tablet(s) PO daily as needed for swelling 11/12/2015 04/23/2016 Inactive pravastatin 10 mg tablet RxNorm: 620808 1 Tablet(s) PO QHS TAKE 1 TABLET BY MOUTH EVERY NIGHT 11/07/2015 11/27/2015 Inactive Generic For:PRAVACHOL 10 MG TABLET Xanax 0.25 mg tablet RxNorm: 529627 1 Tablet(s) PO BID PRN as needed 10/28/2015 01/25/2016 Inactive [SAVINGS FOR UNINSURED PATIENTS -- BIN:173501, PCN: ASPROD1, Group: AME08, ID# [id number], Process claim through [employer], for questions: . THIS IS NOT INSURANCE.] Viberzi 75 mg tablet RxNorm: 9531935 1 Tablet(s) PO BID 10/10/2015 10/10/2015 Inactive doxycycline hyclate 100 mg tablet RxNorm: 1860382 1 Tablet(s) PO BID 10/10/2015 10/23/2015 Inactive Vitamins B Complex capsule RxNorm: 1 Capsule(s) PO daily 09/12/2015 No Stop Date Active Vitamin D3 1,000 unit tablet RxNorm: 114641 3-4 Tablet(s) PO daily 09/12/2015 No Stop Date Active Augmentin 500 mg-125 mg tablet RxNorm: 914289 1 Tablet(s) PO BID 07/09/2015 2015 Inactive probiotic one bid x 7 days Augmentin 500 mg-125 mg tablet RxNorm: 041396 1 Tablet(s) PO BID 07/09/2015 07/08/2015 Inactive Xanax 0.25 mg tablet RxNorm: 116284 1 Tablet(s) PO BID PRN as needed 07/01/2015 09/28/2015 Inactive [SAVINGS FOR UNINSURED PATIENTS -- BIN:014092, PCN: ASPROD1, Group: AME08, ID# [id number], Process claim through [employer], for questions: . THIS IS NOT INSURANCE.] sertraline 100 mg tablet RxNorm: 993782 TAKE 1 TABLET BY MOUTH TWICE DAILY 07/01/2015 01/27/2016 Inactive Generic For:*ZOLOFT 100MG TABLET N O T I C E Last quantity doesn't match original quantity amlodipine 5 mg tablet RxNorm: 539159 TAKE 1 TABLET BY MOUTH TWICE DAILY 06/26/2015 04/23/2016 Inactive Generic For:NORVASC 5 MG TABLET N O T I C E Last quantity doesn't match original quantity amlodipine 5 mg tablet RxNorm: 264112 Tablet(s) 1 Tablet(s) PO BID 06/25/2015 06/25/2015 Inactive ropinirole 1 mg tablet RxNorm: 618426 TAKE 1 TABLET BY MOUTH DAILY EVERY NIGHT 05/22/2015 01/27/2016 Inactive Generic For:REQUIP 1 MG TABLET ropinirole 1 mg tablet RxNorm: 886208 Tablet(s) 1 Tablet(s) PO QPM 05/22/2015 05/21/2015 Inactive pravastatin 10 mg tablet RxNorm: 881378 TAKE 1 TABLET BY MOUTH EVERY NIGHT 05/14/2015 11/06/2015 Inactive Generic For:PRAVACHOL 10 MG TABLET tramadol 50 mg tablet RxNorm: 435190 2 Tablet(s) PO BID 04/25/2015 01/18/2016 Inactive labetalol 100 mg tablet RxNorm: 321546 1 Tablet(s) PO BID 04/09/2015 04/23/2016 Inactive omeprazole 20 mg capsule,delayed release RxNorm: 878744 1 Tablet(s) PO daily 1 Capsule(s) PO daily 03/20/2015 12/10/2015 Inactive Carafate 1 gram tablet RxNorm: 979440 Tablet(s) PO UD 4 times daily x 1 week and then PRN 02/27/2015 02/21/2016 Inactive Xanax 0.25 mg tablet RxNorm: 765678 1 Tablet(s) PO BID PRN as needed 02/08/2015 06/06/2015 Inactive [SAVINGS FOR UNINSURED PATIENTS -- BIN:631112, PCN: ASPROD1, Group: AME08, ID# [id number], Process claim through [employer], for questions: . THIS IS NOT INSURANCE.] furosemide 20 mg tablet RxNorm: 293181 1 Tablet(s) PO daily as needed for swelling 10/25/2014 02/21/2015 Inactive ok to fill by Dr. Franklin 10-25-14 Xanax 0.25 mg tablet RxNorm: 980914 1 Tablet(s) PO BID PRN as needed 09/25/2014 01/21/2015 Inactive [SAVINGS FOR UNINSURED PATIENTS -- BIN:399491, PCN: ASPROD1, Group: AME08, ID# [id number], Process claim through [employer], for questions: . THIS IS NOT INSURANCE.] pravastatin 10 mg tablet RxNorm: 049798 TAKE 1 TABLET BY MOUTH EVERY NIGHT 09/06/2014 04/03/2015 Inactive Generic For:PRAVACHOL 10 MG TABLET tramadol 50 mg tablet RxNorm: 519363 TAKE 2 TABLETS BY MOUTH TWICE DAILY 08/02/2014 01/15/2016 Inactive Generic For:ULTRAM 50 MG TABLET N O T I C E Last quantity doesn't match original quantity(Response to an electronic controlled substance refill request - RxReferenceNumber: [id number]) tramadol 50 mg tablet RxNorm: 041495 2 Tablet(s) PO BID 08/01/2014 08/02/2014 Inactive acyclovir 400 mg tablet RxNorm: 240191 2 Tablet(s) PO QID 07/16/2014 07/25/2014 Inactive sertraline 100 mg tablet RxNorm: 582699 1 Tablet(s) PO BID 1 Tablet(s) PO BID 06/13/2014 12/09/2014 Inactive sertraline 100 mg tablet RxNorm: 617947 1 Tablet(s) PO BID 06/13/2014 06/12/2014 Inactive magnesium oxide 400 mg tablet RxNorm: 207132 1 Tablet(s) PO daily 05/25/2014 2014 Inactive ropinirole 1 mg tablet RxNorm: 853961 1 Tablet(s) PO QPM 05/25/2014 05/19/2015 Inactive amlodipine 5 mg tablet RxNorm: 230531 1 Tablet(s) PO BID 05/25/2014 05/19/2015 Inactive prednisone 10 mg tablets in a dose pack RxNorm: 144313 1 Tablet(s) PO UD 04/06/2014 04/10/2014 Inactive 6-5-4-3-2-1 Xanax 0.25 mg tablet RxNorm: 126901 1 Tablet(s) PO BID PRN as needed 04/04/2014 07/02/2014 Inactive [SAVINGS FOR UNINSURED PATIENTS -- BIN:349920, PCN: ASPROD1, Group: AME08, ID# [id number], Process claim through [employer], for questions: . THIS IS NOT INSURANCE.] prednisone 20 mg tablet RxNorm: 900757 3 Tablet(s) PO daily 04/02/2014 04/05/2014 Inactive [SAVINGS FOR UNINSURED PATIENTS -- BIN:386578, PCN: ASPROD1, Group: AME08, ID# [id number], Process claim through [employer], for questions: . THIS IS NOT INSURANCE.] cefdinir 300 mg capsule RxNorm: 969433 1 Capsule(s) PO BID 04/02/2014 04/11/2014 Inactive [SAVINGS FOR UNINSURED PATIENTS -- BIN:353002, PCN: ASPROD1, Group: AME08, ID# [id number], Process claim through [employer], for questions: . THIS IS NOT INSURANCE.] Kenalog 40 mg/mL suspension for injection RxNorm: 6364036 Milliliter(s) Inj 04/02/2014 04/02/2014 Inactive [SAVINGS FOR UNINSURED PATIENTS -- BIN:848577, PCN: ASPROD1, Group: AME08, ID# [id number], Process claim through [employer], for questions: . THIS IS NOT INSURANCE.] ceftriaxone 500 mg solution for injection RxNorm: 235239 Inj 04/02/2014 04/02/2014 Inactive [SAVINGS FOR UNINSURED PATIENTS -- BIN:831826, PCN: ASPROD1, Group: AME08, ID# [id number], Process claim through [employer], for questions: . THIS IS NOT INSURANCE.] albuterol sulfate 2.5 mg/0.5 mL solution for nebulization RxNorm: 971248 1 treatment INH QID and as needed for dyspnea 04/02/2014 05/31/2014 Inactive [SAVINGS FOR UNINSURED PATIENTS -- BIN:945800, PCN: ASPROD1, Group: AME08, ID# [id number], Process claim through [employer], for questions: . THIS IS NOT INSURANCE.] azithromycin 500 mg tablet RxNorm: 642063 1 Tablet(s) PO daily 04/02/2014 04/06/2014 Inactive [SAVINGS FOR UNINSURED PATIENTS -- BIN:310470, PCN: ASPROD1, Group: AME08, ID# [id number], Process claim through [employer], for questions: . THIS IS NOT INSURANCE.] omeprazole 20 mg capsule,delayed release RxNorm: 115070 1 Tablet(s) PO daily 1 Capsule(s) PO daily 02/26/2014 06/25/2014 Inactive Xanax 0.25 mg tablet RxNorm: 048513 1 Tablet(s) PO BID PRN as needed 02/01/2014 04/03/2014 Inactive [SAVINGS FOR UNINSURED PATIENTS -- BIN:436269, PCN: ASPROD1, Group: AME08, ID# [id number], Process claim through [employer], for questions: . THIS IS NOT INSURANCE.] Xanax 0.25 mg tablet RxNorm: 831851 1 Tablet(s) PO HS PRN as needed 01/04/2014 01/31/2014 Inactive [SAVINGS FOR UNINSURED PATIENTS -- BIN:959858, PCN: ASPROD1, Group: AME08, ID# [id number], Process claim through [employer], for questions: . THIS IS NOT INSURANCE.] pravastatin 10 mg tablet RxNorm: 543963 1 Tablet(s) PO QHS 12/21/2013 12/20/2013 Inactive pravastatin 10 mg tablet RxNorm: 637681 1 Tablet(s) PO QHS 12/21/2013 07/18/2014 Inactive [SAVINGS FOR UNINSURED PATIENTS -- BIN:872735, PCN: ASPROD1, Group: AME08, ID# [id number], Process claim through [employer], for questions: . THIS IS NOT INSURANCE.] Hytrin 1 mg tablet RxNorm: 166193 1 Tablet(s) PO BID 12/21/2013 04/08/2015 Inactive [SAVINGS FOR UNINSURED PATIENTS -- BIN:224116, PCN: ASPROD1, Group: AME08, ID# [id number], Process claim through [employer], for questions: . THIS IS NOT INSURANCE.] Hytrin 1 mg tablet RxNorm: 237812 1 Tablet(s) PO daily 12/18/2013 12/20/2013 Inactive [SAVINGS FOR UNINSURED PATIENTS -- BIN:544315, PCN: ASPROD1, Group: AME08, ID# [id number], Process claim through [employer], for questions: . THIS IS NOT INSURANCE.] sertraline 100 mg tablet RxNorm: 390540 1 Tablet(s) PO QHS 12/14/2013 12/08/2014 Inactive [SAVINGS FOR UNINSURED PATIENTS -- BIN:281272, PCN: ASPROD1, Group: AME08, ID# [id number], Process claim through [employer], for questions: . THIS IS NOT INSURANCE.] Xanax 0.25 mg tablet RxNorm: 993631 1 Tablet(s) PO HS PRN as needed 12/13/2013 01/03/2014 Inactive [SAVINGS FOR UNINSURED PATIENTS -- BIN:936587, PCN: ASPROD1, Group: AME08, ID# [id number], Process claim through [employer], for questions: . THIS IS NOT INSURANCE.] tramadol 50 mg tablet RxNorm: 773231 2 Tablet(s) PO BID 11/08/2013 04/24/2015 Inactive Xanax 0.25 mg tablet RxNorm: 320116 1 Tablet(s) PO HS PRN as needed 10/19/2013 10/18/2013 Inactive Xanax 0.25 mg tablet RxNorm: 495831 1 Tablet(s) PO HS PRN as needed 10/19/2013 12/12/2013 Inactive Carafate 1 gram tablet RxNorm: 755711 Tablet(s) PO dissolve 1 tab QID x 1 week, then TID x 1 week, then BID x 1 week 09/07/2013 02/26/2015 Inactive omeprazole 20 mg capsule,delayed release RxNorm: 935960 1 Capsule(s) PO daily 09/07/2013 09/06/2013 Inactive omeprazole 20 mg capsule,delayed release RxNorm: 221070 1 Capsule(s) PO daily 09/07/2013 02/26/2014 Inactive prednisone 10 mg tablet RxNorm: 401166 1 Tablet(s) PO 08/25/2013 12/13/2013 Inactive prednisone taper Zithromax Z-Bon 250 mg tablet RxNorm: 783163 Tablet(s) PO as directed 08/25/2013 12/13/2013 Inactive Zithromax Z-Bon 250 mg tablet RxNorm: 415886 Tablet(s) PO as directed 08/04/2013 08/24/2013 Inactive Xanax 0.25 mg tablet RxNorm: 417679 1 Tablet(s) PO HS PRN 08/01/2013 10/18/2013 Inactive Kenalog 40 mg/mL suspension for injection RxNorm: 2836137 Milliliter(s) Inj 08/01/2013 08/01/2013 Inactive tramadol 50 mg tablet RxNorm: 758586 2 Tablet(s) PO BID 05/02/2013 11/07/2013 Inactive carvedilol 25 mg tablet RxNorm: 721957 1 Tablet(s) PO BID 05/02/2013 12/13/2013 Inactive magnesium oxide 400 mg tablet RxNorm: 818767 1 Tablet(s) PO daily 05/02/2013 04/26/2014 Inactive furosemide 20 mg tablet RxNorm: 592067 2 Tablet(s) PO daily 05/02/2013 2014 Inactive amlodipine 5 mg tablet RxNorm: 345083 1 Tablet(s) PO BID 05/02/2013 04/26/2014 Inactive sertraline 100 mg tablet RxNorm: 610788 1 Tablet(s) PO BID 05/02/2013 12/13/2013 Inactive ropinirole 1 mg tablet RxNorm: 462562 1 Tablet(s) PO QPM 05/02/2013 04/26/2014 Inactive pantoprazole 40 mg tablet,delayed release RxNorm: 903930 1 Tablet(s) PO daily 05/02/2013 2014 Inactive gabapentin 600 mg tablet RxNorm: 572670 1 Tablet(s) PO BID 05/02/2013 2014 Inactive aspirin 81 mg tablet,delayed release RxNorm: 928127 1 Tablet(s) PO daily No Start Date Active ferrous fumarate 325 mg (106 mg iron) tablet RxNorm: 903994 1 Tablet(s) PO daily No Start Date 2014 Inactive amlodipine 5 mg tablet RxNorm: 974159 1 Tablet(s) PO BID No Start Date 05/01/2013 Inactive Vitamin B-12 2,500 mcg sublingual tablet RxNorm: 328351 1 Tablet(s) SL daily No Start Date 2014 Inactive Zithromax Z-Bon 250 mg tablet RxNorm: 258732 Tablet(s) PO as directed No Start Date 08/03/2013 Inactive sertraline 100 mg tablet RxNorm: 794675 1 Tablet(s) PO BID No Start Date 05/01/2013 Inactive Hytrin 1 mg tablet RxNorm: 525816 1 Tablet(s) PO BID No Start Date 12/17/2013 Inactive potassium chloride ER 10 mEq capsule,extended release RxNorm: 650413 1 Capsule(s) PO QDAY PRN No Start Date 06/17/2016 Inactive Xanax 0.25 mg tablet RxNorm: 660888 1 Tablet(s) PO HS PRN No Start Date 07/31/2013 Inactive gabapentin 600 mg tablet RxNorm: 511097 1 Tablet(s) PO BID No Start Date 05/01/2013 Inactive ropinirole 1 mg tablet RxNorm: 969741 1 Tablet(s) PO QPM No Start Date 05/01/2013 Inactive Vitamin D3 1,000 unit tablet RxNorm: 702656 2 Tablet(s) PO daily No Start Date 09/11/2015 Inactive furosemide 20 mg tablet RxNorm: 422021 1 Tablet(s) PO BID No Start Date 05/01/2013 Inactive tramadol 50 mg tablet RxNorm: 187445 2 Tablet(s) PO BID No Start Date 05/01/2013 Inactive Carafate 1 gram tablet RxNorm: 318904 Tablet(s) PO dissolve 1 tab QID x 1 week, then TID x 1 week, then BID x 1 week No Start Date 09/06/2013 Inactive pantoprazole 40 mg tablet,delayed release RxNorm: 957509 1 Tablet(s) PO daily No Start Date 05/01/2013 Inactive montelukast 10 mg tablet RxNorm: 205626 1 Tablet(s) PO QHS No Start Date 04/23/2016 Inactive magnesium oxide 400 mg tablet RxNorm: 658959 1 Tablet(s) PO daily No Start Date 05/01/2013 Inactive prednisone 10 mg tablet RxNorm: 676489 1 Tablet(s) PO No Start Date 08/24/2013 Inactive prednisone taper carvedilol 25 mg tablet RxNorm: 062479 1 Tablet(s) PO BID No Start Date 05/01/2013 Inactive baclofen 10 mg tablet RxNorm: 243029 2 Tablet(s) PO daily No Start Date 12/13/2013 Inactive Vitamin B Complex capsule RxNorm: 1 Capsule(s) PO daily No Start Date 2014 Inactive Medication Administered Medication Codes Instructions Start Date Status Kenalog 40 mg/mL suspension for injection RxNorm: 7436817 Milliliter 09/15/2016 No longer Active Kenalog 40 mg/mL suspension for injection RxNorm: 7263981 Milliliter 04/02/2014 No longer Active ceftriaxone 500 mg solution for injection RxNorm: 176344 04/02/2014 No longer Active Kenalog 40 mg/mL suspension for injection RxNorm: 4296144 Milliliter 08/01/2013 No longer Active Immunizations Vaccine [...] Code Item Item Code Result Date Mayda 679584 MAYDA (MORTEZA) SCREEN NONE DETECTED 06/25/2017 Ra Factor Hym475 RA FACTOR <10 IU/ml 06/24/2017 D-Dimer D-DIMER [...] 28.6 pg 06/01/2017 Cbc With Differential Ord2 [place]% 5.8 % 06/01/2017 Cbc With Differential Ord2 [...] 2.17 K/ul 06/01/2017 Cbc With Differential Ord2 [place] ABS# 0.3 K/ul 06/01/2017 Cbc With Differential Ord2 Eos ABS# 0.1 K/ul 06/01/2017 Cbc With Differential Ord2 Baso ABS# 0.1 K/ul 06/01/2017 Comp Metabolic Grz061 NA 137 mEq/L 06/01/2017 Comp Metabolic Mri464 K 3.7 mEq/L 06/01/2017 Comp Metabolic Ppq967 CL 100 mEq/L 06/01/2017 Comp Metabolic Ljv996 CO2 28.0 mEq/L 06/01/2017 Comp Metabolic Hcx257 ANION GAP 13 06/01/2017 Comp Metabolic Pbq356 GLUCOSE 94 mg/dL 06/01/2017 Comp Metabolic Txc223 Creat 1.3 mg/dL 06/01/2017 Comp Metabolic Rxu258 eGFR 45 ml/min/1.73m2 06/01/2017 Comp Metabolic Jpt540 BUN 12 mg/dL 06/01/2017 Comp Metabolic Swa209 B/C Ratio 9.6 Ratio 06/01/2017 Comp Metabolic Trp315 CALCIUM 9.5 mg/dL 06/01/2017 Comp Metabolic Wct863 ALK PHOS 77 U/L 06/01/2017 Comp Metabolic Jgl024 AST(SGOT) 17 U/L 06/01/2017 Comp Metabolic Jhg908 ALT(SGPT) 15 U/L 06/01/2017 Comp Metabolic Rfz657 BILI T 0.5 mg/dL 06/01/2017 Comp Metabolic Rmf769 ALBUMIN 4.4 g/dL 06/01/2017 Comp Metabolic Uhv268 TPRO 7.0 g/dL 06/01/2017 Comp Metabolic Ysj280 GLOB 2.6 g/dL 06/01/2017 Comp Metabolic Mul420 A/G Ratio 1.7 Ratio 06/01/2017 Comp Metabolic Xtt711 Osmo 273 mOsmo 06/01/2017 Mayda [id number] MAYDA (MORTEZA) SCREEN NONE DETECTED 06/22/2016 C-Reactive Protein Qnt Crqnt CRP 0.3 mg/dl 06/19/2016 Sed Rate Ord21 ESR 11 mm/hr 06/19/2016 Ra Factor Vwx188 RA FACTOR <10 IU/ml 06/19/2016 Sed Rate Ord21 ESR 14 mm/hr 02/25/2016 C-Reactive Protein Qnt Crqnt CRP 0.3 mg/dl 02/25/2016 Comp Metabolic Zmk131 NA 136 mEq/L 02/25/2016 Comp Metabolic Ats857 K 3.9 mEq/L 02/25/2016 Comp Metabolic Fqz642 CL 103 mEq/L 02/25/2016 Comp Metabolic Fmd836 CO2 27.0 mEq/L 02/25/2016 Comp Metabolic Fij279 ANION GAP 10 02/25/2016 Comp Metabolic Kkf813 GLUCOSE 82 mg/dL 02/25/2016 Comp Metabolic Txq959 Creat 1.3 mg/dL 02/25/2016 Comp Metabolic Pyy406 eGFR 45 ml/min/1.73m2 02/25/2016 Comp Metabolic Fth996 BUN 13 mg/dL 02/25/2016 Comp Metabolic Mag106 B/C Ratio 10.3 Ratio 02/25/2016 Comp Metabolic Ngf066 CALCIUM 9.5 mg/dL 02/25/2016 Comp Metabolic Nze313 ALK PHOS 70 U/L 02/25/2016 Comp Metabolic Qyl332 AST(SGOT) 17 U/L 02/25/2016 Comp Metabolic Pqi255 ALT(SGPT) 13 U/L 02/25/2016 Comp Metabolic Fza141 BILI T 0.4 mg/dL 02/25/2016 Comp Metabolic Uro619 ALBUMIN 4.2 g/dL 02/25/2016 Comp Metabolic Jiy375 TPRO 6.6 g/dL 02/25/2016 Comp Metabolic Wtc679 GLOB 2.4 g/dL 02/25/2016 Comp Metabolic Vyh814 A/G Ratio 1.7 Ratio 02/25/2016 Comp Metabolic Bjc340 Osmo 271 mOsmo 02/25/2016 Cbc With Differential [...] 29.1 pg 02/25/2016 Cbc With Differential Ord2 [place]% 6.8 % 02/25/2016 Cbc With Differential Ord2 [...] 1.62 K/ul 02/25/2016 Cbc With Differential Ord2 [place] ABS# 0.4 K/ul 02/25/2016 Cbc With Differential Ord2 Eos ABS# 0.1 K/ul 02/25/2016 Cbc With Differential Ord2 Baso ABS# 0.0 K/ul 02/25/2016 Tsh Ord6 hTSH II 1.63 uIU/mL 02/25/2016 [place] Spotted Fever Igg/Igm [id number] [place] SPOTTED FEVER IGM EIA . 09/17/2015 [place] Spotted Fever Igg/Igm [id number] RMSF, IGM 0.27 index 09/17/2015 [place] Spotted Fever Igg/Igm 145734 BEN[place] SPOTTED FEVER IGG EIA FLEX . 09/17/2015 [place] Spotted Fever Igg/Igm 171945 RMSF, IGG SCREEN-FLEX Negative 09/17/2015 Ehrlichia Chaffeensis Antibody Igm [id number] EHRLICHIA CHAFFEENSIS IGM < 1:16 09/16/2015 Ehrlichia Chaffeensis Antibody Igg [id number] EHRLICHIA CHAFFEENSIS IGG 1:256 09/16/2015 [place] Disease Total Antibodies With Western Blot Reflex 117105 B. BURGDORFERI, IGG/IGM 0.10 LI 09/14/2015 [facility] Disease Total Antibodies With Western Blot Reflex [id number] 09/14/2015 Vitamin D 25 Oh [id number] VITAMIN D, 25 HYDROXY 59.60 ng/mL 09/13/2015 Sed Rate Ord21 ESR 10 mm/hr 09/12/2015 Comp Metabolic Spk683 NA 139 mEq/L 09/12/2015 Comp Metabolic Hjx004 K 3.8 mEq/L 09/12/2015 Comp Metabolic Bil457 CL 103 mEq/L 09/12/2015 Comp Metabolic Zkd307 CO2 27.0 mEq/L 09/12/2015 Comp Metabolic Izo294 ANION GAP 13 09/12/2015 Comp Metabolic Lll307 GLUCOSE 91 mg/dL 09/12/2015 Comp Metabolic Oul177 Creat 1.2 mg/dL 09/12/2015 Comp Metabolic Gsd133 eGFR 47 ml/min/1.73m2 09/12/2015 Comp Metabolic Irh473 BUN 20 mg/dL 09/12/2015 Comp Metabolic Frs191 B/C Ratio 16.3 Ratio 09/12/2015 Comp Metabolic Sex554 CALCIUM 9.3 mg/dL 09/12/2015 Comp Metabolic Hcz666 ALK PHOS 55 U/L 09/12/2015 Comp Metabolic Yup318 AST(SGOT) 19 U/L 09/12/2015 Comp Metabolic Jzu896 ALT(SGPT) 14 U/L 09/12/2015 Comp Metabolic Chb410 BILI T 0.6 mg/dL 09/12/2015 Comp Metabolic Auw195 ALBUMIN 4.3 g/dL 09/12/2015 Comp Metabolic Imk144 TPRO 6.8 g/dL 09/12/2015 Comp Metabolic Ojk583 GLOB 2.5 g/dL 09/12/2015 Comp Metabolic Nhh306 A/G Ratio 1.8 Ratio 09/12/2015 Comp Metabolic Xqu108 Osmo 280 mOsmo 09/12/2015 B12 Dbq120 B12 >1500.00 pg/ml 09/12/2015 Cbc With Differential [...] 28.9 pg 09/12/2015 Cbc With Differential Ord2 [place]% 5.9 % 09/12/2015 Cbc With Differential Ord2 [...] 1.33 K/ul 09/12/2015 Cbc With Differential Ord2 [place] ABS# 0.3 K/ul 09/12/2015 Cbc With Differential [...] Full Exam - General 1994 Neurologic coordination Csuehu-wazb-tcfacp testing - left: dysmetria 05/11/2017 None Full Exam - General 1994 Neurologic coordination Vqdhjm-gxyx-tmfzdt testing - right: dysmetria 05/11/2017 None Full [...] Full Exam - General 1994 Neurologic coordination Beoxyf-dbkz-ypbioh testing - left: dysmetria 04/20/2016 None Full Exam - General 1994 Neurologic coordination Ojrejp-fbee-fjxmum testing - right: dysmetria 04/20/2016 None Full [...] Full Exam - General 1994 Neurologic coordination Lpajao-kumb-nuyfcb testing - left: dysmetria 02/25/2016 None Full Exam - General 1994 Neurologic coordination Jumrns-npkc-tjrnai testing - right: dysmetria 02/25/2016 None Full [...] Full Exam - General 1994 Neurologic coordination Xnxcdo-dhwm-fggeal testing - left: dysmetria 01/28/2016 None Full Exam - General 1994 Neurologic coordination Hzcrvn-ankz-vybgpn testing - right: dysmetria 01/28/2016 None Full [...] palp - head/face Lesion: excoriation 07/16/2014 right evangelical, redness right eyelid Full Exam - Dermatology [...] Procedure Codes Date THER/PROPH/DIAG INJ SC/IM CPT-4: 57967 09/15/2016 TRIAMCINOLONE ACET INJ NOS CPT-4: J3301 09/15/2016 ADMIN INFLUENZA VIRUS VAC CPT-4: G0008 01/08/2016 ADMIN PNEUMOCOCCAL VACCINE SNOMED CT: 36999764 CPT-4: G0009 01/08/2016 PNEUMOCOCCAL VACC 13 RIVERA IM Formatting Model/CDA Sections, Assigned to/Aliya Muñoz SNOMED CT: 95281161 CPT-4: 40307Oljwvrh 01/08/2016 FLU VACC 4 RIVERA 3 YRS PLUS IM SNOMED CT: 16961169 CPT-4: 50339 01/08/2016 THER/PROPH/DIAG INJ SC/IM CPT-4: 00071 04/02/2014 TRIAMCINOLONE ACET INJ NOS CPT-4: J3301 04/02/2014 ROCEPHIN, PER 250 MG CPT- 4: J0696 04/02/2014 TRIAMCINOLONE ACET INJ NOS CPT-4: J3301 08/01/2013 THER/PROPH/DIAG INJ SC/IM CPT-4: 08746 08/01/2013 Vital Signs Date Vital 01/25/2018 Blood Pressure 1: 130/68 Code: 8480-6 BMI: 34.4 Code: 86196-4 Heart Rate 1: 91 bpm Height: 5'5" SpO2: 95% Weight: 207 lbs 10/06/2017 Blood Pressure 1: 118/78 Code: 8480-6 BMI: 34.3 Code: 06464-2 Heart Rate 1: 75 bpm Height: 5'5" SpO2: 98% Weight: 206 lbs 09/27/2017 Blood Pressure 1: 136/88 Code: 8480-6 BMI: 35.4 Code: 61051-5 Heart Rate 1: 86 bpm Height: 5'5" SpO2: 98% Weight: 213 lbs 07/23/2017 Blood Pressure 1: 106/58 Code: 8480-6 BMI: 34.8 Code: 57363-9 Heart Rate 1: 70 bpm Height: 5'5" SpO2: 96% Weight: 209 lbs 06/01/2017 Blood Pressure 1: 150/96 Code: 8480-6 BMI: 34.4 Code: 21776-9 Heart Rate 1: 82 bpm Height: 5'5" SpO2: 99% Weight: 207 lbs 05/11/2017 Blood Pressure 1: 144/90 Code: 8480-6 BMI: 34.6 Code: 84433-8 Heart Rate 1: 76 bpm Height: 5'5" SpO2: 98% Weight: 208 lbs 10/30/2016 Blood Pressure 1: 172/104 Code: 8480-6 Blood Pressure 1: 158/98 Code: 8480-6 BMI: 34.7 Code: 68536-4 Heart Rate 1: 70 bpm Height: 5'5" SpO2: 97% Temperature: 36.2 (C) / 97.1 (F) Weight: 208 lbs 10 oz 04/20/2016 Blood Pressure 1: 144/86 Code: 8480-6 BMI: 34.3 Code: 90436-5 Heart Rate 1: 68 bpm Height: 5'5" SpO2: 97% Weight: 206 lbs 02/25/2016 Blood Pressure 1: 122/82 Code: 8480-6 BMI: 34.4 Code: 53964-7 Heart Rate 1: 86 bpm Height: 5'5" SpO2: 94% Weight: 207 lbs 01/28/2016 Blood Pressure 1: 128/86 Code: 8480-6 BMI: 33.3 Code: 01796-0 Heart Rate 1: 86 bpm Height: 5'5" SpO2: 96% Weight: 200 lbs 11/14/2015 Blood Pressure 1: 140/90 Code: 8480-6 Blood Pressure 1: 138/88 Code: 8480-6 BMI: 33.3 Code: 67228-6 Heart Rate 1: 98 bpm Height: 5'5" SpO2: 97% Weight: 200 lbs 10/10/2015 Blood Pressure 1: 132/80 Code: 8480-6 BMI: 33.3 Code: 46910-1 Heart Rate 1: 74 bpm Height: 5'5" SpO2: 96% Weight: 200 lbs 09/12/2015 Blood Pressure 1: 148/90 Code: 8480-6 BMI: 32.9 Code: 36056-3 Heart Rate 1: 94 bpm Height: 5'5" SpO2: 97% Weight: 198 lbs 04/09/2015 Blood Pressure 1: 160/82 Code: 8480-6 Blood Pressure 1: 130/84 Code: 8480-6 BMI: 32.4 Code: 49285-1 Heart Rate 1: 74 bpm Height: 5'5" SpO2: 95% Weight: 195 lbs 10/05/2014 Blood Pressure 1: 140/80 Code: 8480-6 BMI: 30.5 Code: 63928-1 Heart Rate 1: 79 bpm Height: 5'5" SpO2: 98% Weight: 183 lbs 09/07/2014 Blood Pressure 1: 142/96 Code: 8480-6 BMI: 32.1 Code: 85360-5 Heart Rate 1: 72 bpm Height: 5'5" SpO2: 98% Temperature: 36.5 (C) / 97.7 (F) Weight: 193 lbs 07/16/2014 Blood Pressure 1: 138/82 Code: 8480-6 BMI: 31.8 Code: 66892-0 Heart Rate 1: 76 bpm Height: 5'5" Weight: 191 lbs 04/02/2014 Blood Pressure 1: 148/90 Code: 8480-6 BMI: 33.8 Code: 97512-6 Heart Rate 1: 68 bpm Height: 5'5" Temperature: 36.9 (C) / 98.4 (F) Weight: 203 lbs 12/14/2013 Blood Pressure 1: 140/88 Code: 8480-6 BMI: 35.3 Code: 53561-8 Heart Rate 1: 91 bpm Height: 5'5" SpO2: 97% Weight: 212 lbs 08/01/2013 Blood Pressure 1: 126/68 Code: 8480-6 BMI: 35.1 Code: 75699-6 Heart Rate 1: 76 bpm Height: 5'5" Temperature: 36.7 (C) / 98.1 (F) Weight: 211 lbs 05/02/2013 Blood Pressure 1: 118/86 Code: 8480-6 BMI: 34.9 Code: 59898-1 Heart Rate 1: 76 bpm Height: 5'5" Weight: 209 lbs 8 oz 04/18/2013 Blood Pressure 1: 118/60 Code: 8480-6 BMI: 35.3 Code: 65348-5 Heart Rate 1: 68 bpm Height: 5'5" [...] data Encounters Encounter Performer Location Codes Date ([id number]) 29331 EST. PATIENT, LEVEL III Diagnosis: Essential (primary) hypertension[ICD10: I10] Marilyn Lao MD, [facility] CPT-4: 41244 01/25/2018 ([id number]) 84687 EST. PATIENT, LEVEL III Diagnosis: Nail dystrophy[ICD10: L60.3] Diagnosis: Localized edema[ICD10: R60.0] Marilny Lao MD, [facility] CPT-4: 56699 10/06/2017 ([id number]) 98797 EST. PATIENT, LEVEL IV Diagnosis: Essential (primary) hypertension[ICD10: I10] Diagnosis: Localized edema[ICD10: R60.0] Marilyn Lao MD, [facility] CPT-4: 31294 09/27/2017 ([id number]) 94081 EST. PATIENT, LEVEL IV Diagnosis: Generalized anxiety disorder[ICD10: F41.1] Diagnosis: Essential (primary) hypertension[ICD10: I10] Diagnosis: Chronic pain syndrome[ICD10: G89.4] Noa Lao MD, [facility] CPT-4: 18160 07/23/2017 ([id number]) 14866 EST. PATIENT, LEVEL IV Diagnosis: Essential (primary) hypertension[ICD10: I10] Diagnosis: Chest pain, unspecified[ICD10: R07.9] Diagnosis: Chronic kidney disease, stage 3 (moderate)[ICD10: N18.3] Noa Lao MD, [facility] CPT-4: 60582 06/01/2017 62217 EST. PATIENT, LEVEL IV Diagnosis: Gastro-esophageal reflux disease without esophagitis[ICD10: K21.9] Anais Lao MD, [facility] CPT-4: 54301 05/11/2017 ([id number]) 18056 EST. PATIENT, LEVEL III Diagnosis: Essential (primary) hypertension[ICD10: I10] Diagnosis: Contusion of right lower leg, initial encounter[ICD10: S80.11XA] Noa Lao MD, [facility] CPT-4: 30616 10/30/2016 ([id number]) 45452 EST. PATIENT, LEVEL IV Diagnosis: Essential (primary) hypertension[ICD10: I10] Diagnosis: Generalized anxiety disorder[ICD10: F41.1] Marilyn Lao MD, [facility] CPT-4: 50734 04/20/2016 [id number]) 06577 EST. PATIENT, LEVEL IV Diagnosis: Essential (primary) hypertension[ICD10: I10] Diagnosis: Chronic kidney disease, stage 3 (moderate)[ICD10: N18.3] Diagnosis: Generalized anxiety disorder[ICD10: F41.1] Diagnosis: Major depressive disorder, recurrent, moderate[ICD10: F33.1] Diagnosis: Shortness of breath[ICD10: R06.02] Noa Lao MD, [facility] CPT- 4: 88529 02/25/2016 [id number]) 35510 EST. PATIENT, LEVEL IV Diagnosis: Generalized anxiety disorder[ICD10: F41.1] Diagnosis: Major depressive disorder, recurrent, moderate[ICD10: F33.1] Diagnosis: Essential (primary) hypertension[ICD10: I10] Diagnosis: Restless legs syndrome[ICD10: G25.81] Diagnosis: Myalgia[ICD10: M79.1] Noa Lao MD, [facility] CPT-4: 56007 01/28/2016 [id number]) 25385 EST. PATIENT, LEVEL III Diagnosis: Essential (primary) hypertension[ICD10: I10] Diagnosis: Insomnia, unspecified[ICD10: G47.00] Noa Lao MD, [facility] CPT-4: 25628 11/14/2015 [id number]) 44844 EST. 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 PATIENT, LEVEL IV Diagnosis: Bitten or stung by nonvenomous insect and other nonvenomous arthropods, initial encounter[ICD10: W57.XXXA] Diagnosis: Other fatigue[ICD10: R53.83] Diagnosis: Vitamin D deficiency, unspecified[ICD10: E55.9] Diagnosis: Other vitamin B12 deficiency anemias[ICD10: D51.8] Diagnosis: Essential (primary) hypertension[ICD10: I10] Diagnosis: Iron deficiency[ICD10: E61.1] Noa Lao MD, [facility] CPT-4: 09594 09/12/2015 ([id number]) 49759 EST. PATIENT, LEVEL III Diagnosis: Essential (primary) hypertension[ICD10: I10] Diagnosis: Chronic kidney disease, stage 3 (moderate)[ICD10: N18.3] Noa Lao MD, [facility] CPT-4: 61626 04/09/2015 ([id number]) 78079 EST. PATIENT, LEVEL III Diagnosis: ESSENTIAL HYPERTENSION[ICD9: 401.9] Noa Lao MD [facility] CPT-4: 47060 10/05/2014 ([id number]) 33953 EST. PATIENT, LEVEL IV Diagnosis: Easy bruising[ICD9: 782.9] Diagnosis: Iron deficiency anemia[ICD9: 280.9] Diagnosis: ESSENTIAL HYPERTENSION[ICD9: 401.9] Diagnosis: Chronic kidney disease, stage 3[ICD9: 585.3] Noa Lao MD, [facility] CPT-4: 91489 09/07/2014 ([id number]) 96010 EST. PATIENT, LEVEL III Diagnosis: Shingles[ICD9: 053.9] Marilyn Lao MD, [facility] CPT-4: 30506 07/16/2014 ([id number]) 33958 EST. PATIENT, LEVEL III Diagnosis: PNEUMONIA (CAP)[ICD9: 486] Diagnosis: COUGH[ICD9: 786.2] Marilyn Lao MD, [facility] CPT-4: 11667 04/02/2014 ([id number]) 24586 EST. PATIENT, LEVEL III Diagnosis: ESSENTIAL HYPERTENSION[ICD9: 401.9] Diagnosis: Rib pain on left side[ICD9: 786.50] Diagnosis: EDEMA[ICD9: 782.3] Noa Lao MD, [facility] CPT-4: 89068 12/14/2013 ([id number]) 67227 EST. PATIENT, LEVEL IV Diagnosis: ESOPHAGEAL REFLUX[ICD9: 530.81] Diagnosis: Urge incontinence[ICD9: 788.31] Diagnosis: Elbow pain, right[ICD9: 719.42] Diagnosis: Snoring[ICD9: 786.09] Marilyn Lao MD, [facility] CPT-4: 76116 08/01/2013 ([id number]) 60642 EST. PATIENT, LEVEL IV Diagnosis: ESSENTIAL HYPERTENSION[SNOMED: 28346403] Diagnosis: EDEMA[ICD9: 782.3] Diagnosis: Chronic renal insufficiency, stage III (moderate)[ICD9: 585.3] Diagnosis: HYPERLIPIDEMIA[ICD9: 272.4] Marilyn Lao MD, [facility] CPT-4: 74200 05/02/2013 ([id number]) 11607 EST. PATIENT, LEVEL IV Diagnosis: ESSENTIAL HYPERTENSION[SNOMED: 15314915] Diagnosis: Restless leg[ICD9: 333.94] Marilyn Lao MD, [facility] CPT-4: 01975 04/18/2013 Plan of Care Planned Activity Notes Codes Status Date Visit Plan: Hypertension - well controlled - continue with current medications, continue with no added salt diet. Pt has been encouraged to exercise daily. The pt has been advised to call the office if there are any acute concerns about change in blood pressure readings at home. 01/25/2018 Appointment: Marilyn Lao WPtel: [facility]5 [facility] (15 min) Moderate 01/25/2018 Patient Education: Patient Medication Summary Completed 01/25/2018 Appointment: Marilyn Lao WPtel: [address] [place], [place] [address] (15 min) Moderate 01/06/2018 Patient Education: Patient Medication Summary Completed 10/26/2017 Care Plan: Comp Metabolic Cancelled 10/26/2017 Visit Plan: Tinea/Onychodystrophy - penlac prescribed, pt did not want to take medication by mouth for treatment. Edema - improved - continue current regimen. 10/06/2017 Appointment: Marilyn Lao WPtel: [facility] (15 min) Moderate 10/06/2017 Patient Education: Patient [...] home. 09/27/2017 Appointment: [facility]el[phone] [facility] (15 min) Moderate 09/27/2017 Patient Education: Patient [...] pain-recommend massage 07/23/2017 [facility]ment[phone] [place] (15 min) Moderate 07/23/2017 Patient [...] worsens 06/01/2017 Appointment: Noa Orlando WPtel: [phone] [phone] [place] (30 min) Complex 06/01/2017 Patient Education: Patient Medication Summary Completed 06/01/2017 Care Plan: Referral Order SNOMED-CT : 152312329 Pending 06/01/2017 Visit Plan: Esophageal Reflux - the patient has been counseled against excessive intake of caffeine, spicy foods, peppermint, and cinnamon - all of which can exacerbate esophageal reflux. The patient is to take med ications as prescribed and call the office if the symptoms are not improving. 05/11/2017 Appointment: Anais Arrieta WPtel: [phone] [facility] (15 min) Moderate 05/11/2017 Patient Education: Patient [...] Summary Completed 09/15/2016 Appointment: Marilyn Lao WPtel: [facility] [place] (15 min) Moderate 08/19/2016 Patient Education: [...] current medications. 04/20/2016 Appointment: Marilyn Lao WPtel: [phone] (30 min) Complex 04/20/2016 Patient Education: Patient Medication Summary Completed 04/20/2016 Patient Education: Obesity Completed 04/20/2016 Patient Education: Hypertension Completed 04/20/2016 Appointment: Noa Orlando WPtel: [address] [place], [place] [phone] (30 min) Complex 03/16/2016 Referral: Ta Santacruz [...] for follow up. Chronic renal disease-check labs Fszovvp-nwmpqirhyc-uimjgwfi with cymbalta-continue same dose for now -may take xanax TID PRN Multiple joint pain-check labs including inflammatory markers 02/25/2016 Appointment: Noa Orlando WPtel: [phone] (30 min) Complex 02/25/2016 Patient Education: Patient Medication Summary Completed 02/25/2016 Patient Education: Obesity Completed 02/25/2016 Patient Education: Hypertension Completed 02/25/2016 Care Plan: Referral Order SNOMED-CT : 213896095 Pending 02/25/2016 Visit Plan: Anxiety/Depression - the [...] in blood pressure readings at home. Restless sbj-gwqsft-rbgiffix requip to twice daily-monitor symptoms Myalgias-stop pravastatin 01/28/2016 Appointment: Noa Orlando WPtel: [phone] [phone] (30 min) Complex 01/28/2016 Patient [...] Hypertension Completed 10/10/2015 Appointment: Marilyn Lao WPtel: [facility] (15 min) Moderate 10/08/2015 Visit Plan: Hypertension - well controlled - continue with current medications, continue with no added salt diet. Pt has been encouraged to exercise daily. The pt has been advised to call the office if there are any acute concerns about change in blood pressure readings at home. Iron deficiency- B12 deficiency-check labs Tick nnva-enzoiya-squwb tick panel 09/12/2015 Appointment: Noa Orlando WPtel: [phone] (15 min) Moderate 09/12/2015 Patient Education: Patient [...] symptoms Iron deficiency anemia-stopped oral iron per bi tester in March-recheck labs HTN-elevated today-monitor twice daily [...] Care Plan: COMPLETE CBC AUTOMATED LOINC : 01141-6 Ordered 09/07/2014 Visit Plan: Shingles - Herpes [...] Summary Completed 07/16/2014 Appointment: Marilyn Lao WPtel: [facility]5 [phone] Follow up 04/16/2014 Appointment: Sick 04/03/2014 Visit Plan: Pneumonia - Pt has been diagnosed with pneumonia by physical exam. Antibiotics started. The pt is aware of the diagnosis and the need for acute treatment of this illness. 04/02/2014 Patient Education: Patient Medication Summary Completed 04/02/2014 Appointment: Marilyn Lao WPtel: [address] [place], [place] [phone] Sick 12/27/2013 Patient Education: Patient Medication Summary [...] further attempt to reduce peripheral edema. Night lbmncd-zkwxazi-edzct labs 12/14/2013 Appointment: Follow up 12/14/2013 Patient Education: Patient Medication Summary Completed 12/14/2013 Patient Education: Hypertension Completed 12/14/2013 Appointment: Noa Orlando WPtel: [phone] [place] Sick 12/01/2013 Appointment: Marilyn Lao WPtel: [phone] Sick 11/30/2013 Visit Plan: Allergies - chronic [...] symptoms. 08/01/2013 Appointment: [facility]ily[facility]el[phone] [facility] Follow up 08/01/2013 Patient Education: Patient Medication [...] as able. 05/02/2013 Appointment: Marilyn Lao WPtel[phone] [facility] Follow up 05/02/2013 Patient Education: Patient Medication [...] orange juice. 04/18/2013 Appointment: Marilyn Lao WPtel: [facility] New Patient 04/18/2013 Patient Education: Patient Medication Summary Completed 04/18/2013 Patient Education: Hypertension Completed 04/18/2013 Referral: Ta Santacruz Referral Appointment Requested Referral: Ta Santacruz Referral Appointment Requested Instructions Comment doxycycline 100mg twice daily x 2 weeks [...] symptoms Iron deficiency anemia-stopped oral iron per bi tester in March-recheck labs HTN-elevated today-monitor twice daily [...] at home. Iron deficiency-B12 deficiency-check labs Tick xhkv-orlppfw-kxnzq tick panel . Hypertension - well controlled [...] for follow up. Chronic renal disease-check labs Ziefbno-nqvoniemnh-krywzgan with cymbalta-continue same dose for now -may [...] in blood pressure readings at home. Restless ffs-desjgl-gjcrvufm requip to twice daily-monitor symptoms Myalgias-stop pravastatin [...] further attempt to reduce peripheral edema. Night ezlbmt-elxajue-bazhx labs
[2018-11-04] MEDS: NS IV 1000 ML 1,000 ML IV SCH (15:54)
--- OUTSIDE RECORDS SUMMARY | 2018-11-04 15:54 | XMS REPORT | CCD ---
Author Author Marilyn Lao Organization Marilyn Lao MD, [facility] Address [address] [place] [address] Phone Care Team Providers [employer] Salesperson Name Role Phone PP Unavailable CCM Unavailable Summary Purpose Interface Exchange Insurance Providers Payer name Policy type / Coverage type Covered libertarian ID Effective Begin Date Effective End Date WPS Medicare Part B Medicare Part B [id number] Unknown A[employer] and Life Medicare Part B [id number] Unknown Family history Mother Diagnosis Age At [...] Description Effective Dates Tobacco history SNOMED CT: 571569020 Never smoker but had significant smoke exposure during first marriage, [place]. 08/01/2013 Employment Unknown Retired doing as needed working for the [employer]. 05/02/2013 Marital status Unknown 04/18/[address]: 495323817 Never drinks alcohol 04/18/2013 Has the patient [...] Instructions doxycycline hyclate 100 mg tablet RxNorm: 6998240 1 Tablet(s) PO BID 07/12/2018 07/25/2018 Active ropinirole 1 mg tablet RxNorm: 137263 TAKE TWO TABLETS BY MOUTH EVERY NIGHT AT BEDTIME 07/04/2018 03/30/2019 Active Carafate 1 gram tablet RxNorm: 088325 TAKE ONE TABLET BY MOUTH FOUR TIMES A DAY 07/04/2018 10/01/2018 Active montelukast 10 mg tablet RxNorm: 358122 TAKE ONE TABLET BY MOUTH EVERY NIGHT AT BEDTIME 07/04/2018 03/30/2019 Active losartan 100 mg tablet RxNorm: 712352 1 Tablet(s) PO daily 05/04/2018 01/28/2019 Active tramadol 50 mg tablet RxNorm: 131907 2 Tablet(s) PO BID 04/26/2018 06/24/2018 Inactive Xanax 0.5 mg tablet RxNorm: 281232 1 Tablet(s) PO TID PRN as needed 04/04/2018 07/31/2018 Active alprazolam 0.5 mg tablet RxNorm: 978198 1/2-1 Tablet(s) PO TID PRN as needed 04/04/2018 06/01/2018 Inactive tramadol 50 mg tablet RxNorm: 462248 2 Tablet(s) PO BID 12/01/2017 01/29/2018 Inactive Cymbalta 60 mg capsule,delayed release RxNorm: 118162 TAKE ONE CAPSULE BY MOUTH DAILY 11/10/2017 11/04/2018 Active furosemide 40 mg tablet RxNorm: 938120 1 Tablet(s) PO daily 10/26/2017 10/20/2018 Active alprazolam 0.5 mg tablet RxNorm: 701530 1/2-1 Tablet(s) PO TID PRN as needed 10/12/2017 12/10/2017 Inactive Ciclodan 8 % topical solution RxNorm: 7560196 1 Application TOP daily x 7 days, clean off with alcohol then restart cycle of application until fungal infection is completely cleared 10/06/2017 01/03/2018 Inactive omeprazole 20 mg capsule,delayed release RxNorm: 951636 TAKE ONE CAPSULE BY MOUTH DAILY 10/04/2017 01/24/2018 Inactive losartan 100 mg tablet RxNorm: 672866 1 Tablet(s) PO daily 09/27/2017 03/24/2018 Inactive Xanax 0.25 mg tablet RxNorm: 817309 1 Tablet(s) PO TID PRN as needed 08/13/2017 10/11/2017 Inactive Xanax 0.5 mg tablet RxNorm: 910507 1 Tablet(s) PO TID PRN as needed 07/23/2017 11/18/2017 Inactive ropinirole 1 mg tablet RxNorm: 103189 TAKE TWO TABLETS BY MOUTH EVERY NIGHT AT BEDTIME 06/28/2017 06/22/2018 Inactive montelukast 10 mg tablet RxNorm: 776871 TAKE ONE TABLET BY MOUTH EVERY NIGHT AT BEDTIME 06/28/2017 06/22/2018 Inactive furosemide 20 mg tablet RxNorm: 676682 TAKE TWO TABLETS BY MOUTH DAILY FOR 7 DAYS THEN TAKE ONE TABLET BY MOUTH DAILY 06/28/2017 10/01/2017 Inactive losartan 50 mg tablet RxNorm: 908003 1 Tablet(s) PO daily 06/01/2017 09/26/2017 Inactive labetalol 100 mg tablet RxNorm: 947773 TAKE ONE TABLET BY MOUTH TWICE A DAY 05/26/2017 05/30/2017 Inactive labetalol 100 mg tablet RxNorm: 853110 1 Tablet(s) PO BID 05/26/2017 05/20/2018 Inactive Protonix 40 mg tablet,delayed release RxNorm: 715019 1 Tablet(s) PO daily 05/26/2017 05/20/2018 Inactive amlodipine 5 mg tablet RxNorm: 712036 TAKE ONE TABLET BY MOUTH TWICE A DAY 05/26/2017 09/26/2017 Inactive Protonix 40 mg tablet,delayed release RxNorm: 676778 1 Tablet(s) PO daily 05/11/2017 05/25/2017 Inactive Carafate 1 gram tablet RxNorm: 664365 1 Tablet(s) PO QID 05/11/2017 09/07/2017 Inactive Cymbalta 60 mg capsule,delayed release RxNorm: 899844 TAKE ONE CAPSULE BY MOUTH DAILY 05/05/2017 10/31/2017 Inactive Xanax 0.25 mg tablet RxNorm: 074644 1 Tablet(s) PO TID PRN as needed 02/09/2017 06/07/2017 Inactive Cymbalta 60 mg capsule,delayed release RxNorm: 247833 TAKE ONE CAPSULE BY MOUTH DAILY 10/28/2016 04/25/2017 Inactive Xanax 0.25 mg tablet RxNorm: 177074 1 Tablet(s) PO TID PRN as needed 10/08/2016 12/06/2016 Inactive NEED TO GIVE #90 WITH NEXT REFILL Kenalog 40 mg/mL suspension for injection RxNorm: 1235184 Milliliter(s) Inj 09/15/2016 09/15/2016 Inactive tramadol 50 mg tablet RxNorm: 769777 Tablet(s) TAKE 2 TABLETS BY MOUTH TWICE DAILY 08/18/2016 02/12/2017 Inactive Generic For:ULTRAM 50 MG TABLET N O T I C E Last quantity doesn't match original quantity(Response to an electronic controlled substance refill request - RxReferenceNumber: [id number]) potassium chloride ER 10 mEq capsule,extended release RxNorm: 036075 TAKE ONE CAPSULE BY MOUTH DAILY NEEDED 08/03/2016 01/29/2017 Inactive potassium chloride ER 10 mEq capsule,extended release RxNorm: 858948 1 Capsule(s) PO QDAY PRN 06/18/2016 08/02/2016 Inactive furosemide 20 mg tablet RxNorm: 852018 1 Tablet(s) PO daily as needed for swelling 06/18/2016 06/12/2017 Inactive 2 daily x 1 week then daily Carafate 1 gram tablet RxNorm: 321080 1 Tablet(s) PO daily 04/24/2016 04/18/2017 Inactive Cymbalta 60 mg capsule,delayed release RxNorm: 708307 1 Capsule(s) PO daily 04/24/2016 10/20/2016 Inactive montelukast 10 mg tablet RxNorm: 703027 1 Tablet(s) PO QHS 04/24/2016 04/18/2017 Inactive omeprazole 20 mg capsule,delayed release RxNorm: 511020 Capsule(s) 1 Capsule(s) PO daily 04/24/2016 05/31/2017 Inactive ropinirole 1 mg tablet RxNorm: 989938 2 Tablet(s) PO QHS 04/24/2016 04/18/2017 Inactive furosemide 20 mg tablet RxNorm: 945283 1 Tablet(s) PO daily as needed for swelling 04/24/2016 06/17/2016 Inactive labetalol 100 mg tablet RxNorm: 436049 1 Tablet(s) PO BID 04/24/2016 04/18/2017 Inactive amlodipine 5 mg tablet RxNorm: 512353 Tablet(s) TAKE 1 TABLET BY MOUTH TWICE DAILY 04/24/2016 04/18/2017 Inactive Transferring from [facility] Xanax 0.25 mg tablet RxNorm: 263192 1 Tablet(s) PO TID PRN as needed 02/25/2016 03/25/2016 Inactive NEED TO GIVE #90 WITH NEXT REFILL Xanax 0.25 mg tablet RxNorm: 127258 1 Tablet(s) PO BID PRN as needed 02/19/2016 02/24/2016 Inactive [SAVINGS FOR UNINSURED PATIENTS -- BIN:060317, PCN: ASPROD1, Group: AME08, ID# [id number], Process claim through Zumper, for questions: . THIS IS NOT INSURANCE.] Cymbalta 60 mg capsule,delayed release RxNorm: 518392 1 Capsule(s) PO daily 01/28/2016 04/23/2016 Inactive ropinirole 1 mg tablet RxNorm: 508947 1 Tablet(s) PO BID TAKE 1 TABLET BY MOUTH DAILY EVERY NIGHT 01/28/2016 04/23/2016 Inactive Generic For:REQUIP 1 MG TABLET tramadol 50 mg tablet RxNorm: 562505 Tablet(s) TAKE 2 TABLETS BY MOUTH TWICE DAILY 01/16/2016 07/13/2016 Inactive Generic For:ULTRAM 50 MG TABLET N O T I C E Last quantity doesn't match original quantity(Response to an electronic controlled substance refill request - RxReferenceNumber: [id number]) omeprazole 20 mg capsule,delayed release RxNorm: 714121 1 Tablet(s) PO daily 1 Capsule(s) PO daily 12/11/2015 04/23/2016 Inactive pravastatin 10 mg tablet RxNorm: 011926 1 Tablet(s) PO QHS TAKE 1 TABLET BY MOUTH EVERY NIGHT 11/28/2015 01/27/2016 Inactive Generic For:PRAVACHOL 10 MG TABLET furosemide 20 mg tablet RxNorm: 150743 1 Tablet(s) PO daily as needed for swelling 11/12/2015 04/23/2016 Inactive pravastatin 10 mg tablet RxNorm: 784870 1 Tablet(s) PO QHS TAKE 1 TABLET BY MOUTH EVERY NIGHT 11/07/2015 11/27/2015 Inactive Generic For:PRAVACHOL 10 MG TABLET Xanax 0.25 mg tablet RxNorm: 519417 1 Tablet(s) PO BID PRN as needed 10/28/2015 01/25/2016 Inactive [SAVINGS FOR UNINSURED PATIENTS -- BIN:859729, PCN: ASPROD1, Group: AME08, ID# [id number], Process claim through Zumper, for questions: . THIS IS NOT INSURANCE.] Viberzi 75 mg tablet RxNorm: 8679094 1 Tablet(s) PO BID 10/10/2015 10/10/2015 Inactive doxycycline hyclate 100 mg tablet RxNorm: 5185767 1 Tablet(s) PO BID 10/10/2015 10/23/2015 Inactive Vitamins B Complex capsule RxNorm: 1 Capsule(s) PO daily 09/12/2015 No Stop Date Active Vitamin D3 1,000 unit tablet RxNorm: 995904 3-4 Tablet(s) PO daily 09/12/2015 No Stop Date Active Augmentin 500 mg-125 mg tablet RxNorm: 094747 1 Tablet(s) PO BID 07/09/2015 2015 Inactive probiotic one bid x 7 days Augmentin 500 mg-125 mg tablet RxNorm: 043595 1 Tablet(s) PO BID 07/09/2015 07/08/2015 Inactive Xanax 0.25 mg tablet RxNorm: 003551 1 Tablet(s) PO BID PRN as needed 07/01/2015 09/28/2015 Inactive [SAVINGS FOR UNINSURED PATIENTS -- BIN:603806, PCN: ASPROD1, Group: AME08, ID# [id number], Process claim through Zumper, for questions: . THIS IS NOT INSURANCE.] sertraline 100 mg tablet RxNorm: 938520 TAKE 1 TABLET BY MOUTH TWICE DAILY 07/01/2015 01/27/2016 Inactive Generic For:*ZOLOFT 100MG TABLET N O T I C E Last quantity doesn't match original quantity amlodipine 5 mg tablet RxNorm: 181746 TAKE 1 TABLET BY MOUTH TWICE DAILY 06/26/2015 04/23/2016 Inactive Generic For:NORVASC 5 MG TABLET N O T I C E Last quantity doesn't match original quantity amlodipine 5 mg tablet RxNorm: 037155 Tablet(s) 1 Tablet(s) PO BID 06/25/2015 06/25/2015 Inactive ropinirole 1 mg tablet RxNorm: 347082 TAKE 1 TABLET BY MOUTH DAILY EVERY NIGHT 05/22/2015 01/27/2016 Inactive Generic For:REQUIP 1 MG TABLET ropinirole 1 mg tablet RxNorm: 092829 Tablet(s) 1 Tablet(s) PO QPM 05/22/2015 05/21/2015 Inactive pravastatin 10 mg tablet RxNorm: 443704 TAKE 1 TABLET BY MOUTH EVERY NIGHT 05/14/2015 11/06/2015 Inactive Generic For:PRAVACHOL 10 MG TABLET tramadol 50 mg tablet RxNorm: 615134 2 Tablet(s) PO BID 04/25/2015 01/18/2016 Inactive labetalol 100 mg tablet RxNorm: 450215 1 Tablet(s) PO BID 04/09/2015 04/23/2016 Inactive omeprazole 20 mg capsule,delayed release RxNorm: 717489 1 Tablet(s) PO daily 1 Capsule(s) PO daily 03/20/2015 12/10/2015 Inactive Carafate 1 gram tablet RxNorm: 287266 Tablet(s) PO UD 4 times daily x 1 week and then PRN 02/27/2015 02/21/2016 Inactive Xanax 0.25 mg tablet RxNorm: 200481 1 Tablet(s) PO BID PRN as needed 02/08/2015 06/06/2015 Inactive [SAVINGS FOR UNINSURED PATIENTS -- BIN:925412, PCN: ASPROD1, Group: AME08, ID# [id number], Process claim through Zumper, for questions: . THIS IS NOT INSURANCE.] furosemide 20 mg tablet RxNorm: 103773 1 Tablet(s) PO daily as needed for swelling 10/25/2014 02/21/2015 Inactive ok to fill by Dr. Franklin 10-25-14 Xanax 0.25 mg tablet RxNorm: 893185 1 Tablet(s) PO BID PRN as needed 09/25/2014 01/21/2015 Inactive [SAVINGS FOR UNINSURED PATIENTS -- BIN:277036, PCN: ASPROD1, Group: AME08, ID# [id number], Process claim through Zumper, for questions: . THIS IS NOT INSURANCE.] pravastatin 10 mg tablet RxNorm: 176955 TAKE 1 TABLET BY MOUTH EVERY NIGHT 09/06/2014 04/03/2015 Inactive Generic For:PRAVACHOL 10 MG TABLET tramadol 50 mg tablet RxNorm: 806931 TAKE 2 TABLETS BY MOUTH TWICE DAILY 08/02/2014 01/15/2016 Inactive Generic For:ULTRAM 50 MG TABLET N O T I C E Last quantity doesn't match original quantity(Response to an electronic controlled substance refill request - RxReferenceNumber: [id number]) tramadol 50 mg tablet RxNorm: 514286 2 Tablet(s) PO BID 08/01/2014 08/02/2014 Inactive acyclovir 400 mg tablet RxNorm: 004850 2 Tablet(s) PO QID 07/16/2014 07/25/2014 Inactive sertraline 100 mg tablet RxNorm: 275756 1 Tablet(s) PO BID 1 Tablet(s) PO BID 06/13/2014 12/09/2014 Inactive sertraline 100 mg tablet RxNorm: 315021 1 Tablet(s) PO BID 06/13/2014 06/12/2014 Inactive magnesium oxide 400 mg tablet RxNorm: 017006 1 Tablet(s) PO daily 05/25/2014 2014 Inactive ropinirole 1 mg tablet RxNorm: 390193 1 Tablet(s) PO QPM 05/25/2014 05/19/2015 Inactive amlodipine 5 mg tablet RxNorm: 887294 1 Tablet(s) PO BID 05/25/2014 05/19/2015 Inactive prednisone 10 mg tablets in a dose pack RxNorm: 131470 1 Tablet(s) PO UD 04/06/2014 04/10/2014 Inactive 6-5-4-3-2-1 Xanax 0.25 mg tablet RxNorm: 385606 1 Tablet(s) PO BID PRN as needed 04/04/2014 07/02/2014 Inactive [SAVINGS FOR UNINSURED PATIENTS -- BIN:034747, PCN: ASPROD1, Group: AME08, ID# [id number], Process claim through MedImpact, for questions: . THIS IS NOT INSURANCE.] prednisone 20 mg tablet RxNorm: 463433 3 Tablet(s) PO daily 04/02/2014 04/05/2014 Inactive [SAVINGS FOR UNINSURED PATIENTS -- BIN:789723, PCN: ASPROD1, Group: AME08, ID# [id number], Process claim through MedImpact, for questions: . THIS IS NOT INSURANCE.] cefdinir 300 mg capsule RxNorm: 055102 1 Capsule(s) PO BID 04/02/2014 04/11/2014 Inactive [SAVINGS FOR UNINSURED PATIENTS -- BIN:209381, PCN: ASPROD1, Group: AME08, ID# [id number], Process claim through MedImpact, for questions: . THIS IS NOT INSURANCE.] Kenalog 40 mg/mL suspension for injection RxNorm: 4504234 Milliliter(s) Inj 04/02/2014 04/02/2014 Inactive [SAVINGS FOR UNINSURED PATIENTS -- BIN:147449, PCN: ASPROD1, Group: AME08, ID# [id number], Process claim through MedImpact, for questions: . THIS IS NOT INSURANCE.] ceftriaxone 500 mg solution for injection RxNorm: 101448 Inj 04/02/2014 04/02/2014 Inactive [SAVINGS FOR UNINSURED PATIENTS -- BIN:675468, PCN: ASPROD1, Group: AME08, ID# [id number], Process claim through MedImpact, for questions: . THIS IS NOT INSURANCE.] albuterol sulfate 2.5 mg/0.5 mL solution for nebulization RxNorm: 952448 1 treatment INH QID and as needed for dyspnea 04/02/2014 05/31/2014 Inactive [SAVINGS FOR UNINSURED PATIENTS -- BIN:067784, PCN: ASPROD1, Group: AME08, ID# [id number], Process claim through MedImpact, for questions: . THIS IS NOT INSURANCE.] azithromycin 500 mg tablet RxNorm: 996183 1 Tablet(s) PO daily 04/02/2014 04/06/2014 Inactive [SAVINGS FOR UNINSURED PATIENTS -- BIN:129448, PCN: ASPROD1, Group: AME08, ID# [id number], Process claim through MedImpact, for questions: . THIS IS NOT INSURANCE.] omeprazole 20 mg capsule,delayed release RxNorm: 470288 1 Tablet(s) PO daily 1 Capsule(s) PO daily 02/26/2014 06/25/2014 Inactive Xanax 0.25 mg tablet RxNorm: 849696 1 Tablet(s) PO BID PRN as needed 02/01/2014 04/03/2014 Inactive [SAVINGS FOR UNINSURED PATIENTS -- BIN:973701, PCN: ASPROD1, Group: AME08, ID# [id number], Process claim through MedImpact, for questions: . THIS IS NOT INSURANCE.] Xanax 0.25 mg tablet RxNorm: 426979 1 Tablet(s) PO HS PRN as needed 01/04/2014 01/31/2014 Inactive [SAVINGS FOR UNINSURED PATIENTS -- BIN:734854, PCN: ASPROD1, Group: AME08, ID# [id number], Process claim through MedImpact, for questions: . THIS IS NOT INSURANCE.] pravastatin 10 mg tablet RxNorm: 993550 1 Tablet(s) PO QHS 12/21/2013 12/20/2013 Inactive pravastatin 10 mg tablet RxNorm: 220510 1 Tablet(s) PO QHS 12/21/2013 07/18/2014 Inactive [SAVINGS FOR UNINSURED PATIENTS -- BIN:531939, PCN: ASPROD1, Group: AME08, ID# [id number], Process claim through MedImpact, for questions: . THIS IS NOT INSURANCE.] Hytrin 1 mg tablet RxNorm: 530426 1 Tablet(s) PO BID 12/21/2013 04/08/2015 Inactive [SAVINGS FOR UNINSURED PATIENTS -- BIN:159167, PCN: ASPROD1, Group: AME08, ID# [id number], Process claim through MedImpact, for questions: . THIS IS NOT INSURANCE.] Hytrin 1 mg tablet RxNorm: 532586 1 Tablet(s) PO daily 12/18/2013 12/20/2013 Inactive [SAVINGS FOR UNINSURED PATIENTS -- BIN:937355, PCN: ASPROD1, Group: AME08, ID# [id number], Process claim through MedImpact, for questions: . THIS IS NOT INSURANCE.] sertraline 100 mg tablet RxNorm: 569205 1 Tablet(s) PO QHS 12/14/2013 12/08/2014 Inactive [SAVINGS FOR UNINSURED PATIENTS -- BIN:559079, PCN: ASPROD1, Group: AME08, ID# [id number], Process claim through MedImpact, for questions: . THIS IS NOT INSURANCE.] Xanax 0.25 mg tablet RxNorm: 958907 1 Tablet(s) PO HS PRN as needed 12/13/2013 01/03/2014 Inactive [SAVINGS FOR UNINSURED PATIENTS -- BIN:557173, PCN: ASPROD1, Group: AME08, ID# [id number], Process claim through MedImpact, for questions: . THIS IS NOT INSURANCE.] tramadol 50 mg tablet RxNorm: 154636 2 Tablet(s) PO BID 11/08/2013 04/24/2015 Inactive Xanax 0.25 mg tablet RxNorm: 499377 1 Tablet(s) PO HS PRN as needed 10/19/2013 10/18/2013 Inactive Xanax 0.25 mg tablet RxNorm: 811456 1 Tablet(s) PO HS PRN as needed 10/19/2013 12/12/2013 Inactive Carafate 1 gram tablet RxNorm: 808995 Tablet(s) PO dissolve 1 tab QID x 1 week, then TID x 1 week, then BID x 1 week 09/07/2013 02/26/2015 Inactive omeprazole 20 mg capsule,delayed release RxNorm: 943013 1 Capsule(s) PO daily 09/07/2013 09/06/2013 Inactive omeprazole 20 mg capsule,delayed release RxNorm: 732237 1 Capsule(s) PO daily 09/07/2013 02/26/2014 Inactive prednisone 10 mg tablet RxNorm: 335374 1 Tablet(s) PO 08/25/2013 12/13/2013 Inactive prednisone taper Zithromax Z-Bon 250 mg tablet RxNorm: 214901 Tablet(s) PO as directed 08/25/2013 12/13/2013 Inactive Zithromax Z-Bon 250 mg tablet RxNorm: 496287 Tablet(s) PO as directed 08/04/2013 08/24/2013 Inactive Xanax 0.25 mg tablet RxNorm: 717740 1 Tablet(s) PO HS PRN 08/01/2013 10/18/2013 Inactive Kenalog 40 mg/mL suspension for injection RxNorm: 1420095 Milliliter(s) Inj 08/01/2013 08/01/2013 Inactive tramadol 50 mg tablet RxNorm: 937439 2 Tablet(s) PO BID 05/02/2013 11/07/2013 Inactive carvedilol 25 mg tablet RxNorm: 103753 1 Tablet(s) PO BID 05/02/2013 12/13/2013 Inactive magnesium oxide 400 mg tablet RxNorm: 666771 1 Tablet(s) PO daily 05/02/2013 04/26/2014 Inactive furosemide 20 mg tablet RxNorm: 999755 2 Tablet(s) PO daily 05/02/2013 2014 Inactive amlodipine 5 mg tablet RxNorm: 355758 1 Tablet(s) PO BID 05/02/2013 04/26/2014 Inactive sertraline 100 mg tablet RxNorm: 017614 1 Tablet(s) PO BID 05/02/2013 12/13/2013 Inactive ropinirole 1 mg tablet RxNorm: 577099 1 Tablet(s) PO QPM 05/02/2013 04/26/2014 Inactive pantoprazole 40 mg tablet,delayed release RxNorm: 375973 1 Tablet(s) PO daily 05/02/2013 2014 Inactive gabapentin 600 mg tablet RxNorm: 866635 1 Tablet(s) PO BID 05/02/2013 2014 Inactive aspirin 81 mg tablet,delayed release RxNorm: 574773 1 Tablet(s) PO daily No Start Date Active ferrous fumarate 325 mg (106 mg iron) tablet RxNorm: 488890 1 Tablet(s) PO daily No Start Date 2014 Inactive amlodipine 5 mg tablet RxNorm: 595255 1 Tablet(s) PO BID No Start Date 05/01/2013 Inactive Vitamin B-12 2,500 mcg sublingual tablet RxNorm: 628584 1 Tablet(s) SL daily No Start Date 2014 Inactive Zithromax Z-Bon 250 mg tablet RxNorm: 087555 Tablet(s) PO as directed No Start Date 08/03/2013 Inactive sertraline 100 mg tablet RxNorm: 254630 1 Tablet(s) PO BID No Start Date 05/01/2013 Inactive Hytrin 1 mg tablet RxNorm: 531168 1 Tablet(s) PO BID No Start Date 12/17/2013 Inactive potassium chloride ER 10 mEq capsule,extended release RxNorm: 425846 1 Capsule(s) PO QDAY PRN No Start Date 06/17/2016 Inactive Xanax 0.25 mg tablet RxNorm: 235469 1 Tablet(s) PO HS PRN No Start Date 07/31/2013 Inactive gabapentin 600 mg tablet RxNorm: 925017 1 Tablet(s) PO BID No Start Date 05/01/2013 Inactive ropinirole 1 mg tablet RxNorm: 091027 1 Tablet(s) PO QPM No Start Date 05/01/2013 Inactive Vitamin D3 1,000 unit tablet RxNorm: 044458 2 Tablet(s) PO daily No Start Date 09/11/2015 Inactive furosemide 20 mg tablet RxNorm: 531894 1 Tablet(s) PO BID No Start Date 05/01/2013 Inactive tramadol 50 mg tablet RxNorm: 812898 2 Tablet(s) PO BID No Start Date 05/01/2013 Inactive Carafate 1 gram tablet RxNorm: 553063 Tablet(s) PO dissolve 1 tab QID x 1 week, then TID x 1 week, then BID x 1 week No Start Date 09/06/2013 Inactive pantoprazole 40 mg tablet,delayed release RxNorm: 798003 1 Tablet(s) PO daily No Start Date 05/01/2013 Inactive montelukast 10 mg tablet RxNorm: 928405 1 Tablet(s) PO QHS No Start Date 04/23/2016 Inactive magnesium oxide 400 mg tablet RxNorm: 467111 1 Tablet(s) PO daily No Start Date 05/01/2013 Inactive prednisone 10 mg tablet RxNorm: 378857 1 Tablet(s) PO No Start Date 08/24/2013 Inactive prednisone taper carvedilol 25 mg tablet RxNorm: 056321 1 Tablet(s) PO BID No Start Date 05/01/2013 Inactive baclofen 10 mg tablet RxNorm: 155476 2 Tablet(s) PO daily No Start Date 12/13/2013 Inactive Vitamin B Complex capsule RxNorm: 1 Capsule(s) PO daily No Start Date 2014 Inactive Medication Administered Medication Codes Instructions Start Date Status Kenalog 40 mg/mL suspension for injection RxNorm: 1523549 Milliliter 09/15/2016 No longer Active Kenalog 40 mg/mL suspension for injection RxNorm: 0858792 Milliliter 04/02/2014 No longer Active ceftriaxone 500 mg solution for injection RxNorm: 960190 04/02/2014 No longer Active Kenalog 40 mg/mL suspension for injection RxNorm: 8280490 Milliliter 08/01/2013 No longer Active Immunizations Vaccine [...] Code Item Item Code Result Date Mayda 285578 MAYDA (MORTEZA) SCREEN NONE DETECTED 06/25/2017 Ra Factor Hxh494 RA FACTOR <10 IU/ml 06/24/2017 D-Dimer D-DIMER [...] 28.6 pg 06/01/2017 Cbc With Differential Ord2 [place]% 5.8 % 06/01/2017 Cbc With Differential Ord2 [...] 2.17 K/ul 06/01/2017 Cbc With Differential Ord2 [place] ABS# 0.3 K/ul 06/01/2017 Cbc With Differential Ord2 Eos ABS# 0.1 K/ul 06/01/2017 Cbc With Differential Ord2 Baso ABS# 0.1 K/ul 06/01/2017 Comp Metabolic Ggz109 NA 137 mEq/L 06/01/2017 Comp Metabolic Xmc228 K 3.7 mEq/L 06/01/2017 Comp Metabolic Zel549 CL 100 mEq/L 06/01/2017 Comp Metabolic Sbu989 CO2 28.0 mEq/L 06/01/2017 Comp Metabolic Kcq460 ANION GAP 13 06/01/2017 Comp Metabolic Xpk985 GLUCOSE 94 mg/dL 06/01/2017 Comp Metabolic Xkp203 Creat 1.3 mg/dL 06/01/2017 Comp Metabolic Kqy563 eGFR 45 ml/min/1.73m2 06/01/2017 Comp Metabolic Lae435 BUN 12 mg/dL 06/01/2017 Comp Metabolic Xqt531 B/C Ratio 9.6 Ratio 06/01/2017 Comp Metabolic Fph391 CALCIUM 9.5 mg/dL 06/01/2017 Comp Metabolic Pwl695 ALK PHOS 77 U/L 06/01/2017 Comp Metabolic Cqf083 AST(SGOT) 17 U/L 06/01/2017 Comp Metabolic Xaf396 ALT(SGPT) 15 U/L 06/01/2017 Comp Metabolic Jia018 BILI T 0.5 mg/dL 06/01/2017 Comp Metabolic Ekp542 ALBUMIN 4.4 g/dL 06/01/2017 Comp Metabolic Ogd444 TPRO 7.0 g/dL 06/01/2017 Comp Metabolic Bkc766 GLOB 2.6 g/dL 06/01/2017 Comp Metabolic Pin478 A/G Ratio 1.7 Ratio 06/01/2017 Comp Metabolic Qod272 Osmo 273 mOsmo 06/01/2017 Mayda [id number] MAYDA (MORTEZA) SCREEN NONE DETECTED 06/22/2016 C-Reactive Protein Qnt Crqnt CRP 0.3 mg/dl 06/19/2016 Sed Rate Ord21 ESR 11 mm/hr 06/19/2016 Ra Factor Tdl499 RA FACTOR <10 IU/ml 06/19/2016 Sed Rate Ord21 ESR 14 mm/hr 02/25/2016 C-Reactive Protein Qnt Crqnt CRP 0.3 mg/dl 02/25/2016 Comp Metabolic Vxy406 NA 136 mEq/L 02/25/2016 Comp Metabolic Rwy357 K 3.9 mEq/L 02/25/2016 Comp Metabolic Ezr703 CL 103 mEq/L 02/25/2016 Comp Metabolic Lwn963 CO2 27.0 mEq/L 02/25/2016 Comp Metabolic Ban452 ANION GAP 10 02/25/2016 Comp Metabolic Idn816 GLUCOSE 82 mg/dL 02/25/2016 Comp Metabolic Nqg148 Creat 1.3 mg/dL 02/25/2016 Comp Metabolic Wei228 eGFR 45 ml/min/1.73m2 02/25/2016 Comp Metabolic Ssc915 BUN 13 mg/dL 02/25/2016 Comp Metabolic Cmj287 B/C Ratio 10.3 Ratio 02/25/2016 Comp Metabolic Oxx674 CALCIUM 9.5 mg/dL 02/25/2016 Comp Metabolic Rjs330 ALK PHOS 70 U/L 02/25/2016 Comp Metabolic Gtq904 AST(SGOT) 17 U/L 02/25/2016 Comp Metabolic Mla146 ALT(SGPT) 13 U/L 02/25/2016 Comp Metabolic Yvx907 BILI T 0.4 mg/dL 02/25/2016 Comp Metabolic Arm291 ALBUMIN 4.2 g/dL 02/25/2016 Comp Metabolic Ire798 TPRO 6.6 g/dL 02/25/2016 Comp Metabolic Vkc857 GLOB 2.4 g/dL 02/25/2016 Comp Metabolic Lvf464 A/G Ratio 1.7 Ratio 02/25/2016 Comp Metabolic Qet466 Osmo 271 mOsmo 02/25/2016 Cbc With Differential [...] 29.1 pg 02/25/2016 Cbc With Differential Ord2 [place]% 6.8 % 02/25/2016 Cbc With Differential Ord2 [...] 1.62 K/ul 02/25/2016 Cbc With Differential Ord2 [place] ABS# 0.4 K/ul 02/25/2016 Cbc With Differential Ord2 Eos ABS# 0.1 K/ul 02/25/2016 Cbc With Differential Ord2 Baso ABS# 0.0 K/ul 02/25/2016 Tsh Ord6 hTSH II 1.63 uIU/mL 02/25/2016 [place] Spotted Fever Igg/Igm [id number] [place] SPOTTED FEVER IGM EIA . 09/17/2015 [place] Spotted Fever Igg/Igm 934513 RMSF, IGM 0.27 index 09/17/2015 [place] Spotted Fever Igg/Igm 185849 [place] SPOTTED FEVER IGG EIA FLEX . 09/17/2015 [place] Spotted Fever Igg/Igm 231779 RMSF, IGG SCREEN-FLEX Negative 09/17/2015 Ehrlichia Chaffeensis Antibody Igm [id number] EHRLICHIA CHAFFEENSIS IGM < 1:16 09/16/2015 Ehrlichia Chaffeensis Antibody Igg [id number] EHRLICHIA CHAFFEENSIS IGG 1:256 09/16/2015 [place] Disease Total Antibodies With Western Blot Reflex [id number] B. BURGDORFERI, IGG/IGM 0.10 LI 09/14/2015 Lymes Disease Total Antibodies With Western Blot Reflex [id number] 09/14/2015 Vitamin D 25 Oh Pvb8373 VITAMIN D, 25 HYDROXY 59.60 ng/mL 09/13/2015 Sed Rate Ord21 ESR 10 mm/hr 09/12/2015 Comp Metabolic Agr828 NA 139 mEq/L 09/12/2015 Comp Metabolic Txz098 K 3.8 mEq/L 09/12/2015 Comp Metabolic Unr085 CL 103 mEq/L 09/12/2015 Comp Metabolic Sxm846 CO2 27.0 mEq/L 09/12/2015 Comp Metabolic Ldv825 ANION GAP 13 09/12/2015 Comp Metabolic Myh255 GLUCOSE 91 mg/dL 09/12/2015 Comp Metabolic Rhm926 Creat 1.2 mg/dL 09/12/2015 Comp Metabolic Emn920 eGFR 47 ml/min/1.73m2 09/12/2015 Comp Metabolic Qrj471 BUN 20 mg/dL 09/12/2015 Comp Metabolic Pkr217 B/C Ratio 16.3 Ratio 09/12/2015 Comp Metabolic Dya824 CALCIUM 9.3 mg/dL 09/12/2015 Comp Metabolic Lxd831 ALK PHOS 55 U/L 09/12/2015 Comp Metabolic Vwk403 AST(SGOT) 19 U/L 09/12/2015 Comp Metabolic Rjg952 ALT(SGPT) 14 U/L 09/12/2015 Comp Metabolic Idx554 BILI T 0.6 mg/dL 09/12/2015 Comp Metabolic Gzh728 ALBUMIN 4.3 g/dL 09/12/2015 Comp Metabolic Myw451 TPRO 6.8 g/dL 09/12/2015 Comp Metabolic Lxx392 GLOB 2.5 g/dL 09/12/2015 Comp Metabolic Wba044 A/G Ratio 1.8 Ratio 09/12/2015 Comp Metabolic Ezs417 Osmo 280 mOsmo 09/12/2015 B12 Ejd511 B12 >1500.00 pg/ml 09/12/2015 Cbc With Differential [...] 28.9 pg 09/12/2015 Cbc With Differential Ord2 [place]% 5.9 % 09/12/2015 Cbc With Differential Ord2 [...] 1.33 K/ul 09/12/2015 Cbc With Differential Ord2 [place] ABS# 0.3 K/ul 09/12/2015 Cbc With Differential [...] Full Exam - General 1994 Neurologic coordination Fdnofd-bgpe-ipslkl testing - left: dysmetria 05/11/2017 None Full Exam - General 1994 Neurologic coordination Ybcwrz-waai-apvgcg testing - right: dysmetria 05/11/2017 None Full [...] Full Exam - General 1994 Neurologic coordination Lmphyb-xxjy-kgzebz testing - left: dysmetria 04/20/2016 None Full Exam - General 1994 Neurologic coordination Exjrbe-eiev-vkeiyj testing - right: dysmetria 04/20/2016 None Full [...] Full Exam - General 1994 Neurologic coordination Uxdixa-loox-xqsexj testing - left: dysmetria 02/25/2016 None Full Exam - General 1994 Neurologic coordination Xdqshe-wfir-rcdsux testing - right: dysmetria 02/25/2016 None Full [...] Full Exam - General 1994 Neurologic coordination Bvxnon-tmlw-gbquei testing - left: dysmetria 01/28/2016 None Full Exam - General 1994 Neurologic coordination Evbwns-mizp-xzztij testing - right: dysmetria 01/28/2016 None Full [...] palp - head/face Lesion: excoriation 07/16/2014 right orthodoxy, redness right eyelid Full Exam - Dermatology [...] Procedure Codes Date THER/PROPH/DIAG INJ SC/IM CPT-4: 35884 09/15/2016 TRIAMCINOLONE ACET INJ NOS CPT-4: J3301 09/15/2016 ADMIN INFLUENZA VIRUS VAC CPT-4: G0008 01/08/2016 ADMIN PNEUMOCOCCAL VACCINE SNOMED CT: 48485730 CPT-4: G0009 01/08/2016 PNEUMOCOCCAL VACC 13 RIVERA IM Formatting Model/CDA Sections, Assigned to/Aliya Muñoz SNOMED CT: 44246435 CPT-4: 05885Hwjhtwx 01/08/2016 FLU VACC 4 RIVERA 3 YRS PLUS IM SNOMED CT: 54353599 CPT-4: 86362 01/08/2016 THER/PROPH/DIAG INJ SC/IM CPT-4: 83003 04/02/2014 TRIAMCINOLONE ACET INJ NOS CPT-4: J3301 04/02/2014 ROCEPHIN, PER 250 MG CPT- 4: J0696 04/02/2014 TRIAMCINOLONE ACET INJ NOS CPT-4: J3301 08/01/2013 THER/PROPH/DIAG INJ SC/IM CPT-4: 05011 08/01/2013 Vital Signs Date Vital 01/25/2018 Blood Pressure 1: 130/68 Code: 8480-6 BMI: 34.4 Code: 57781-9 Heart Rate 1: 91 bpm Height: 5'5" SpO2: 95% Weight: 207 lbs 10/06/2017 Blood Pressure 1: 118/78 Code: 8480-6 BMI: 34.3 Code: 78474-4 Heart Rate 1: 75 bpm Height: 5'5" SpO2: 98% Weight: 206 lbs 09/27/2017 Blood Pressure 1: 136/88 Code: 8480-6 BMI: 35.4 Code: 54740-9 Heart Rate 1: 86 bpm Height: 5'5" SpO2: 98% Weight: 213 lbs 07/23/2017 Blood Pressure 1: 106/58 Code: 8480-6 BMI: 34.8 Code: 76307-6 Heart Rate 1: 70 bpm Height: 5'5" SpO2: 96% Weight: 209 lbs 06/01/2017 Blood Pressure 1: 150/96 Code: 8480-6 BMI: 34.4 Code: 85162-4 Heart Rate 1: 82 bpm Height: 5'5" SpO2: 99% Weight: 207 lbs 05/11/2017 Blood Pressure 1: 144/90 Code: 8480-6 BMI: 34.6 Code: 74108-1 Heart Rate 1: 76 bpm Height: 5'5" SpO2: 98% Weight: 208 lbs 10/30/2016 Blood Pressure 1: 172/104 Code: 8480-6 Blood Pressure 1: 158/98 Code: 8480-6 BMI: 34.7 Code: 95998-3 Heart Rate 1: 70 bpm Height: 5'5" SpO2: 97% Temperature: 36.2 (C) / 97.1 (F) Weight: 208 lbs 10 oz 04/20/2016 Blood Pressure 1: 144/86 Code: 8480-6 BMI: 34.3 Code: 02646-5 Heart Rate 1: 68 bpm Height: 5'5" SpO2: 97% Weight: 206 lbs 02/25/2016 Blood Pressure 1: 122/82 Code: 8480-6 BMI: 34.4 Code: 79969-8 Heart Rate 1: 86 bpm Height: 5'5" SpO2: 94% Weight: 207 lbs 01/28/2016 Blood Pressure 1: 128/86 Code: 8480-6 BMI: 33.3 Code: 62106-4 Heart Rate 1: 86 bpm Height: 5'5" SpO2: 96% Weight: 200 lbs 11/14/2015 Blood Pressure 1: 140/90 Code: 8480-6 Blood Pressure 1: 138/88 Code: 8480-6 BMI: 33.3 Code: 69228-4 Heart Rate 1: 98 bpm Height: 5'5" SpO2: 97% Weight: 200 lbs 10/10/2015 Blood Pressure 1: 132/80 Code: 8480-6 BMI: 33.3 Code: 68373-8 Heart Rate 1: 74 bpm Height: 5'5" SpO2: 96% Weight: 200 lbs 09/12/2015 Blood Pressure 1: 148/90 Code: 8480-6 BMI: 32.9 Code: 90070-9 Heart Rate 1: 94 bpm Height: 5'5" SpO2: 97% Weight: 198 lbs 04/09/2015 Blood Pressure 1: 160/82 Code: 8480-6 Blood Pressure 1: 130/84 Code: 8480-6 BMI: 32.4 Code: 86953-4 Heart Rate 1: 74 bpm Height: 5'5" SpO2: 95% Weight: 195 lbs 10/05/2014 Blood Pressure 1: 140/80 Code: 8480-6 BMI: 30.5 Code: 16463-8 Heart Rate 1: 79 bpm Height: 5'5" SpO2: 98% Weight: 183 lbs 09/07/2014 Blood Pressure 1: 142/96 Code: 8480-6 BMI: 32.1 Code: 09981-6 Heart Rate 1: 72 bpm Height: 5'5" SpO2: 98% Temperature: 36.5 (C) / 97.7 (F) Weight: 193 lbs 07/16/2014 Blood Pressure 1: 138/82 Code: 8480-6 BMI: 31.8 Code: 71211-3 Heart Rate 1: 76 bpm Height: 5'5" Weight: 191 lbs 04/02/2014 Blood Pressure 1: 148/90 Code: 8480-6 BMI: 33.8 Code: 28745-8 Heart Rate 1: 68 bpm Height: 5'5" Temperature: 36.9 (C) / 98.4 (F) Weight: 203 lbs 12/14/2013 Blood Pressure 1: 140/88 Code: 8480-6 BMI: 35.3 Code: 30836-4 Heart Rate 1: 91 bpm Height: 5'5" SpO2: 97% Weight: 212 lbs 08/01/2013 Blood Pressure 1: 126/68 Code: 8480-6 BMI: 35.1 Code: 02021-3 Heart Rate 1: 76 bpm Height: 5'5" Temperature: 36.7 (C) / 98.1 (F) Weight: 211 lbs 05/02/2013 Blood Pressure 1: 118/86 Code: 8480-6 BMI: 34.9 Code: 05172-4 Heart Rate 1: 76 bpm Height: 5'5" Weight: 209 lbs 8 oz 04/18/2013 Blood Pressure 1: 118/60 Code: 8480-6 BMI: 35.3 Code: 98714-6 Heart Rate 1: 68 bpm Height: 5'5" [...] data Encounters Encounter Performer Location Codes Date ([id number]) 36989 EST. PATIENT, LEVEL III Diagnosis: Essential (primary) hypertension[ICD10: I10] Marilyn Lao MD, [facility] CPT-4: 89353 01/25/2018 ([id number]) 81299 EST. 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 PATIENT, LEVEL IV Diagnosis: Essential (primary) hypertension[ICD10: I10] Diagnosis: Localized edema[ICD10: R60.0] Marilyn Lao MD, [facility] CPT-4: 58585 09/27/2017 ([id number]) 03659 EST. PATIENT, LEVEL IV Diagnosis: Generalized anxiety disorder[ICD10: F41.1] Diagnosis: Essential (primary) hypertension[ICD10: I10] Diagnosis: Chronic pain syndrome[ICD10: G89.4] Noa Lao MD, [facility] CPT-4: 67128 07/23/2017 ([id number]) 62002 EST. PATIENT, LEVEL IV Diagnosis: Essential (primary) hypertension[ICD10: I10] Diagnosis: Chest pain, unspecified[ICD10: R07.9] Diagnosis: Chronic kidney disease, stage 3 (moderate)[ICD10: N18.3] Noa Lao MD, [facility] CPT-4: 13083 06/01/2017 [id number] EST. PATIENT, LEVEL IV Diagnosis: Gastro-esophageal reflux disease without esophagitis[ICD10: K21.9] Anais Lao MD, [facility] CPT-4: 85021 05/11/2017 ([id number]) 04810 EST. PATIENT, LEVEL III Diagnosis: Essential (primary) hypertension[ICD10: I10] Diagnosis: Contusion of right lower leg, initial encounter[ICD10: S80.11XA] Noa Lao MD, [facility] CPT-4: 59689 10/30/2016 ([id number]) 73527 EST. PATIENT, LEVEL IV Diagnosis: Essential (primary) hypertension[ICD10: I10] Diagnosis: Generalized anxiety disorder[ICD10: F41.1] Marilyn Lao MD, [facility] CPT-4: 25534 04/20/2016 [id number]) 23466 EST. PATIENT, LEVEL IV Diagnosis: Essential (primary) hypertension[ICD10: I10] Diagnosis: Chronic kidney disease, stage 3 (moderate)[ICD10: N18.3] Diagnosis: Generalized anxiety disorder[ICD10: F41.1] Diagnosis: Major depressive disorder, recurrent, moderate[ICD10: F33.1] Diagnosis: Shortness of breath[ICD10: R06.02] Noa Lao MD, [facility] CPT- 4: 67150 02/25/2016 [id number]) 13396 EST. PATIENT, LEVEL IV Diagnosis: Generalized anxiety disorder[ICD10: F41.1] Diagnosis: Major depressive disorder, recurrent, moderate[ICD10: F33.1] Diagnosis: Essential (primary) hypertension[ICD10: I10] Diagnosis: Restless legs syndrome[ICD10: G25.81] Diagnosis: Myalgia[ICD10: M79.1] Noa Lao MD, [facility] CPT-4: 82779 01/28/2016 [id number]) 01233 EST. PATIENT, LEVEL III Diagnosis: Essential (primary) hypertension[ICD10: I10] Diagnosis: Insomnia, unspecified[ICD10: G47.00] Noa Lao MD, [facility] CPT-4: 76553 11/14/2015 [id number]) 64923 EST. 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 PATIENT, LEVEL IV Diagnosis: Bitten or stung by nonvenomous insect and other nonvenomous arthropods, initial encounter[ICD10: W57.XXXA] Diagnosis: Other fatigue[ICD10: R53.83] Diagnosis: Vitamin D deficiency, unspecified[ICD10: E55.9] Diagnosis: Other vitamin B12 deficiency anemias[ICD10: D51.8] Diagnosis: Essential (primary) hypertension[ICD10: I10] Diagnosis: Iron deficiency[ICD10: E61.1] Noa Lao MD, [facility] CPT-4: 69576 09/12/2015 ([id number]) 38455 EST. PATIENT, LEVEL III Diagnosis: Essential (primary) hypertension[ICD10: I10] Diagnosis: Chronic kidney disease, stage 3 (moderate)[ICD10: N18.3] Noa Lao MD, [facility] CPT-4: 85202 04/09/2015 ([id number]) 12687 EST. PATIENT, LEVEL III Diagnosis: ESSENTIAL HYPERTENSION[ICD9: 401.9] Noa Lao MD [facility] CPT-4: 98621 10/05/2014 ([id number]) 97625 EST. PATIENT, LEVEL IV Diagnosis: Easy bruising[ICD9: 782.9] Diagnosis: Iron deficiency anemia[ICD9: 280.9] Diagnosis: ESSENTIAL HYPERTENSION[ICD9: 401.9] Diagnosis: Chronic kidney disease, stage 3[ICD9: 585.3] Noa Lao MD, [facility] CPT-4: 51743 09/07/2014 ([id number]) 81736 EST. PATIENT, LEVEL III Diagnosis: Shingles[ICD9: 053.9] Marilyn Lao MD, [facility] CPT-4: 76126 07/16/2014 ([id number]) 72209 EST. PATIENT, LEVEL III Diagnosis: PNEUMONIA (CAP)[ICD9: 486] Diagnosis: COUGH[ICD9: 786.2] Marilyn Lao MD, [facility] CPT-4: 09501 04/02/2014 ([id number]) 28097 EST. PATIENT, LEVEL III Diagnosis: ESSENTIAL HYPERTENSION[ICD9: 401.9] Diagnosis: Rib pain on left side[ICD9: 786.50] Diagnosis: EDEMA[ICD9: 782.3] Noa Lao MD, [facility] CPT-4: 26754 12/14/2013 ([id number]) 80169 EST. PATIENT, LEVEL IV Diagnosis: ESOPHAGEAL REFLUX[ICD9: 530.81] Diagnosis: Urge incontinence[ICD9: 788.31] Diagnosis: Elbow pain, right[ICD9: 719.42] Diagnosis: Snoring[ICD9: 786.09] Marilyn Lao MD, [facility] CPT-4: 42270 08/01/2013 ([id number]) 95358 EST. PATIENT, LEVEL IV Diagnosis: ESSENTIAL HYPERTENSION[SNOMED: 20957810] Diagnosis: EDEMA[ICD9: 782.3] Diagnosis: Chronic renal insufficiency, stage III (moderate)[ICD9: 585.3] Diagnosis: HYPERLIPIDEMIA[ICD9: 272.4] Marilyn Lao MD, [facility] CPT-4: 98763 05/02/2013 ([id number]) 87916 EST. PATIENT, LEVEL IV Diagnosis: ESSENTIAL HYPERTENSION[SNOMED: 23107599] Diagnosis: Restless leg[ICD9: 333.94] Marilyn Lao MD, [facility] CPT-4: 04157 04/18/2013 Plan of Care Planned Activity Notes Codes Status Date Visit Plan: Hypertension - well controlled - continue with current medications, continue with no added salt diet. Pt has been encouraged to exercise daily. The pt has been advised to call the office if there are any acute concerns about change in blood pressure readings at home. 01/25/2018 Appointment: Marilyn Lao WPtel: [facility] (15 min) Moderate 01/25/2018 Patient Education: Patient Medication Summary Completed 01/25/2018 Appointment: Marilyn Lao WPtel: [address] [place], [place] [address] (15 min) Moderate 01/06/2018 Patient Education: Patient Medication Summary Completed 10/26/2017 Care Plan: Comp Metabolic Cancelled 10/26/2017 Visit Plan: Tinea/Onychodystrophy - penlac prescribed, pt did not want to take medication by mouth for treatment. Edema - improved - continue current regimen. 10/06/2017 Appointment: Marilyn [facility]Ptel[facility] ([facility] min) Moderate 10/06/2017 Patient Education: [...] home. 09/27/2017 Appointment: [phone] [facility] (15 min) Moderate 09/27/2017 Patient Education: [...] pain-recommend massage 07/23/2017 [facility]ointment: [phone] [place] (15 min) Moderate 07/23/2017 Patient Education: [...] worsens 06/01/2017 Appointment: Noa Orlando WPtel: [phone] [phone] [place] (30 min) Complex 06/01/2017 Patient Education: Patient Medication Summary Completed 06/01/2017 Care Plan: Referral Order SNOMED-CT : 831980937 Pending 06/01/2017 Visit Plan: Esophageal Reflux - the patient has been counseled against excessive intake of caffeine, spicy foods, peppermint, and cinnamon - all of which can exacerbate esophageal reflux. The patient is to take med ications as prescribed and call the office if the symptoms are not improving. 05/11/2017 Appointment: Anais Arrieta WPtel: [phone] [facility] (15 min) Moderate 05/11/2017 Patient Education: Patient [...] Completed 09/15/2016 Appointment: Marilyn Lao WPtel: [facility] [place] (15 min) Moderate 08/19/2016 Patient Education: [...] medications. 04/20/2016 Appointment: Marilyn Lao WPtel: [facility] (30 min) Complex 04/20/2016 Patient Education: Patient Medication Summary Completed 04/20/2016 Patient Education: Obesity Completed 04/20/2016 Patient Education: Hypertension Completed 04/20/2016 Appointment: Noa Orlando WPtel: [address] [place], [place] [phone] (30 min) Complex 03/16/2016 Referral: Ta Santacruz [...] for follow up. Chronic renal disease-check labs Imaqeqy-dphinpumug-ozdqrxqz with cymbalta-continue same dose for now -may take xanax TID PRN Multiple joint pain-check labs including inflammatory markers 02/25/2016 Appointment: Noa Orlando WPtel: [phone] (30 min) Complex 02/25/2016 Patient Education: Patient Medication Summary Completed 02/25/2016 Patient Education: Obesity Completed 02/25/2016 Patient Education: Hypertension Completed 02/25/2016 Care Plan: Referral Order SNOMED-CT : 691441352 Pending 02/25/2016 Visit Plan: Anxiety/Depression - the [...] in blood pressure readings at home. Restless hgw-uwqiuw-aepiavpd requip to twice daily-monitor symptoms Myalgias-stop pravastatin 01/28/2016 Appointment: Noa Orlando WPtel: [phone] [phone] (30 min) Complex 01/28/2016 Patient Education: Patient [...] Completed 10/10/2015 Appointment: Marilyn Lao WPtel: [facility] (15 min) Moderate 10/08/2015 Visit Plan: Hypertension - well controlled - continue with current medications, continue with no added salt diet. Pt has been encouraged to exercise daily. The pt has been advised to call the office if there are any acute concerns about change in blood pressure readings at home. Iron deficiency- B12 deficiency-check labs Tick yfvj-qdzbjjd-lgrlu tick panel 09/12/2015 Appointment: Noa Orlando WPtel: [phone] (15 min) Moderate 09/12/2015 Patient Education: Patient [...] Iron deficiency anemia-stopped oral iron per senior materials planner in March-recheck labs HTN-elevated today-monitor twice daily [...] Care Plan: COMPLETE CBC AUTOMATED LOINC : 45756-2 Ordered 09/07/2014 Visit Plan: Shingles - Herpes [...] Completed 07/16/2014 Appointment: Marilyn Lao WPtel: [facility] Follow up 04/16/2014 Appointment: Sick 04/03/2014 Visit Plan: Pneumonia - Pt has been diagnosed with pneumonia by physical exam. Antibiotics started. The pt is aware of the diagnosis and the need for acute treatment of this illness. 04/02/2014 Patient Education: Patient Medication Summary Completed 04/02/2014 Appointment: Marilyn Lao WPtel: [address] [place], [place] [phone] Sick 12/27/2013 Patient Education: Patient Medication Summary [...] further attempt to reduce peripheral edema. Night frqpst-wqmtnnf-oehbj labs 12/14/2013 Appointment: Follow up 12/14/2013 Patient Education: Patient Medication Summary Completed 12/14/2013 Patient Education: Hypertension Completed 12/14/2013 Appointment: Noa Orlando WPtel: [phone] [place] Sick 12/01/2013 Appointment: Marilyn Lao WPtel: [facility] Sick 11/30/2013 Visit Plan: Allergies - chronic [...] symptoms. 08/01/2013 Appointment: [facility] [phone] [facility] Follow up 08/01/2013 Patient Education: Patient [...] as able. 05/02/2013 Appointment: [facility] [phone] [facility] Follow up 05/02/2013 Patient Education: Patient [...] juice. 04/18/2013 Appointment: Marilyn Lao WPtel: [facility] New Patient 04/18/2013 Patient Education: Patient [...] pressure readings at home. Chronic pain-recommend massage doxycycline 100mg twice daily x 2 weeks [...] Iron deficiency anemia-stopped oral iron per senior materials planner in March-recheck labs HTN-elevated today-monitor twice daily [...] at home. Iron deficiency-B12 deficiency-check labs Tick eubd-wwysehw-tctps tick panel . Hypertension - well controlled [...] for follow up. Chronic renal disease-check labs Clpbejm-elrbjcmtvu-tucrpuvz with cymbalta-continue same dose for now -may [...] in blood pressure readings at home. Restless vmp-igifim-wsjtohzt requip to twice daily-monitor symptoms Myalgias-stop pravastatin [...] further attempt to reduce peripheral edema. Night mxamwf-zifjger-ddpql labs
--- OUTSIDE RECORDS SUMMARY | 2018-11-04 15:58 | XMS REPORT | CCD ---
Author Author Marilyn Lao Organization Marilyn Lao MD, [facility] Address [address] [place] [address] Phone Care Team Providers Care Regional Hr Manager Name Role Phone PP Unavailable CCM Unavailable Summary Purpose Interface Exchange Insurance Providers Payer name Policy type / Coverage type Covered alliance party ID Effective Begin Date Effective End Date WPS Medicare Part B Medicare Part B [id number] Unknown [employer] and Life Medicare Part B [id number] Unknown Family history Mother Diagnosis Age At [...] Description Effective Dates Tobacco history SNOMED CT: 294630702 Never smoker but had significant smoke exposure during first marriage, [place]. 08/01/2013 Employment Unknown Retired doing as needed working for the [email or web address]. 05/02/2013 Marital status Unknown 04/18/[address]: 786234215 Never drinks alcohol 04/18/2013 Has the patient [...] Start Date Stop Date Status Fill Instructions ropinirole 1 mg tablet RxNorm: 206819 TAKE TWO TABLETS BY MOUTH EVERY NIGHT AT BEDTIME 07/04/2018 03/30/2019 Active Carafate 1 gram tablet RxNorm: 493032 TAKE ONE TABLET BY MOUTH FOUR TIMES A DAY 07/04/2018 10/01/2018 Active montelukast 10 mg tablet RxNorm: 274326 TAKE ONE TABLET BY MOUTH EVERY NIGHT AT BEDTIME 07/04/2018 03/30/2019 Active losartan 100 mg tablet RxNorm: 655730 1 Tablet(s) PO daily 05/04/2018 01/28/2019 Active tramadol 50 mg tablet RxNorm: 472889 2 Tablet(s) PO BID 04/26/2018 06/24/2018 Inactive Xanax 0.5 mg tablet RxNorm: 525683 1 Tablet(s) PO TID PRN as needed 04/04/2018 07/31/2018 Active alprazolam 0.5 mg tablet RxNorm: 534927 1/2-1 Tablet(s) PO TID PRN as needed 04/04/2018 06/01/2018 Inactive tramadol 50 mg tablet RxNorm: 354654 2 Tablet(s) PO BID 12/01/2017 01/29/2018 Inactive Cymbalta 60 mg capsule,delayed release RxNorm: 592342 TAKE ONE CAPSULE BY MOUTH DAILY 11/10/2017 11/04/2018 Active furosemide 40 mg tablet RxNorm: 551584 1 Tablet(s) PO daily 10/26/2017 10/20/2018 Active alprazolam 0.5 mg tablet RxNorm: 381544 1/2-1 Tablet(s) PO TID PRN as needed 10/12/2017 12/10/2017 Inactive Ciclodan 8 % topical solution RxNorm: 2767989 1 Application TOP daily x 7 days, clean off with alcohol then restart cycle of application until fungal infection is completely cleared 10/06/2017 01/03/2018 Inactive omeprazole 20 mg capsule,delayed release RxNorm: 330750 TAKE ONE CAPSULE BY MOUTH DAILY 10/04/2017 01/24/2018 Inactive losartan 100 mg tablet RxNorm: 364344 1 Tablet(s) PO daily 09/27/2017 03/24/2018 Inactive Xanax 0.25 mg tablet RxNorm: 310056 1 Tablet(s) PO TID PRN as needed 08/13/2017 10/11/2017 Inactive Xanax 0.5 mg tablet RxNorm: 014954 1 Tablet(s) PO TID PRN as needed 07/23/2017 11/18/2017 Inactive ropinirole 1 mg tablet RxNorm: 569618 TAKE TWO TABLETS BY MOUTH EVERY NIGHT AT BEDTIME 06/28/2017 06/22/2018 Inactive montelukast 10 mg tablet RxNorm: 365319 TAKE ONE TABLET BY MOUTH EVERY NIGHT AT BEDTIME 06/28/2017 06/22/2018 Inactive furosemide 20 mg tablet RxNorm: 222609 TAKE TWO TABLETS BY MOUTH DAILY FOR 7 DAYS THEN TAKE ONE TABLET BY MOUTH DAILY 06/28/2017 10/01/2017 Inactive losartan 50 mg tablet RxNorm: 475711 1 Tablet(s) PO daily 06/01/2017 09/26/2017 Inactive labetalol 100 mg tablet RxNorm: 792609 TAKE ONE TABLET BY MOUTH TWICE A DAY 05/26/2017 05/30/2017 Inactive labetalol 100 mg tablet RxNorm: 989514 1 Tablet(s) PO BID 05/26/2017 05/20/2018 Inactive Protonix 40 mg tablet,delayed release RxNorm: 100066 1 Tablet(s) PO daily 05/26/2017 05/20/2018 Inactive amlodipine 5 mg tablet RxNorm: 427970 TAKE ONE TABLET BY MOUTH TWICE A DAY 05/26/2017 09/26/2017 Inactive Protonix 40 mg tablet,delayed release RxNorm: 322099 1 Tablet(s) PO daily 05/11/2017 05/25/2017 Inactive Carafate 1 gram tablet RxNorm: 200166 1 Tablet(s) PO QID 05/11/2017 09/07/2017 Inactive Cymbalta 60 mg capsule,delayed release RxNorm: 078446 TAKE ONE CAPSULE BY MOUTH DAILY 05/05/2017 10/31/2017 Inactive Xanax 0.25 mg tablet RxNorm: 795635 1 Tablet(s) PO TID PRN as needed 02/09/2017 06/07/2017 Inactive Cymbalta 60 mg capsule,delayed release RxNorm: 772226 TAKE ONE CAPSULE BY MOUTH DAILY 10/28/2016 04/25/2017 Inactive Xanax 0.25 mg tablet RxNorm: 698427 1 Tablet(s) PO TID PRN as needed 10/08/2016 12/06/2016 Inactive NEED TO GIVE #90 WITH NEXT REFILL Kenalog 40 mg/mL suspension for injection RxNorm: 0497317 Milliliter(s) Inj 09/15/2016 09/15/2016 Inactive tramadol 50 mg tablet RxNorm: 155631 Tablet(s) TAKE 2 TABLETS BY MOUTH TWICE DAILY 08/18/2016 02/12/2017 Inactive Generic For:ULTRAM 50 MG TABLET N O T I C E Last quantity doesn't match original quantity(Response to an electronic controlled substance refill request - RxReferenceNumber: [id number]) potassium chloride ER 10 mEq capsule,extended release RxNorm: 342929 TAKE ONE CAPSULE BY MOUTH DAILY NEEDED 08/03/2016 01/29/2017 Inactive potassium chloride ER 10 mEq capsule,extended release RxNorm: 760541 1 Capsule(s) PO QDAY PRN 06/18/2016 08/02/2016 Inactive furosemide 20 mg tablet RxNorm: 107970 1 Tablet(s) PO daily as needed for swelling 06/18/2016 06/12/2017 Inactive 2 daily x 1 week then daily Carafate 1 gram tablet RxNorm: 757406 1 Tablet(s) PO daily 04/24/2016 04/18/2017 Inactive Cymbalta 60 mg capsule,delayed release RxNorm: 929424 1 Capsule(s) PO daily 04/24/2016 10/20/2016 Inactive montelukast 10 mg tablet RxNorm: 580097 1 Tablet(s) PO QHS 04/24/2016 04/18/2017 Inactive omeprazole 20 mg capsule,delayed release RxNorm: 102176 Capsule(s) 1 Capsule(s) PO daily 04/24/2016 05/31/2017 Inactive ropinirole 1 mg tablet RxNorm: 003755 2 Tablet(s) PO QHS 04/24/2016 04/18/2017 Inactive furosemide 20 mg tablet RxNorm: 499212 1 Tablet(s) PO daily as needed for swelling 04/24/2016 06/17/2016 Inactive labetalol 100 mg tablet RxNorm: 075060 1 Tablet(s) PO BID 04/24/2016 04/18/2017 Inactive amlodipine 5 mg tablet RxNorm: 363859 Tablet(s) TAKE 1 TABLET BY MOUTH TWICE DAILY 04/24/2016 04/18/2017 Inactive Transferring from [facility] Xanax 0.25 mg tablet RxNorm: 035710 1 Tablet(s) PO TID PRN as needed 02/25/2016 03/25/2016 Inactive NEED TO GIVE #90 WITH NEXT REFILL Xanax 0.25 mg tablet RxNorm: 034362 1 Tablet(s) PO BID PRN as needed 02/19/2016 02/24/2016 Inactive [SAVINGS FOR UNINSURED PATIENTS -- BIN:138229, PCN: ASPROD1, Group: AME, ID# [id number], Process claim through HEROZ, for questions: . THIS IS NOT INSURANCE.] Cymbalta 60 mg capsule,delayed release RxNorm: 896639 1 Capsule(s) PO daily 01/28/2016 04/23/2016 Inactive ropinirole 1 mg tablet RxNorm: 597794 1 Tablet(s) PO BID TAKE 1 TABLET BY MOUTH DAILY EVERY NIGHT 01/28/2016 04/23/2016 Inactive Generic For:REQUIP 1 MG TABLET tramadol 50 mg tablet RxNorm: 467135 Tablet(s) TAKE 2 TABLETS BY MOUTH TWICE DAILY 01/16/2016 07/13/2016 Inactive Generic For:ULTRAM 50 MG TABLET N O T I C E Last quantity doesn't match original quantity(Response to an electronic controlled substance refill request - RxReferenceNumber: [id number]) omeprazole 20 mg capsule,delayed release RxNorm: 263773 1 Tablet(s) PO daily 1 Capsule(s) PO daily 12/11/2015 04/23/2016 Inactive pravastatin 10 mg tablet RxNorm: 281364 1 Tablet(s) PO QHS TAKE 1 TABLET BY MOUTH EVERY NIGHT 11/28/2015 01/27/2016 Inactive Generic For:PRAVACHOL 10 MG TABLET furosemide 20 mg tablet RxNorm: 433153 1 Tablet(s) PO daily as needed for swelling 11/12/2015 04/23/2016 Inactive pravastatin 10 mg tablet RxNorm: 285276 1 Tablet(s) PO QHS TAKE 1 TABLET BY MOUTH EVERY NIGHT 11/07/2015 11/27/2015 Inactive Generic For:PRAVACHOL 10 MG TABLET Xanax 0.25 mg tablet RxNorm: 741300 1 Tablet(s) PO BID PRN as needed 10/28/2015 01/25/2016 Inactive [SAVINGS FOR UNINSURED PATIENTS -- BIN:559956, PCN: ASPROD1, Group: AME08, ID# [id number], Process claim through HEROZ, for questions: . THIS IS NOT INSURANCE.] Viberzi 75 mg tablet RxNorm: 8584538 1 Tablet(s) PO BID 10/10/2015 10/10/2015 Inactive doxycycline hyclate 100 mg tablet RxNorm: 103246 1 Tablet(s) PO BID 10/10/2015 10/23/2015 Inactive Vitamins B Complex capsule RxNorm: 1 Capsule(s) PO daily 09/12/2015 No Stop Date Active Vitamin D3 1,000 unit tablet RxNorm: 407115 3-4 Tablet(s) PO daily 09/12/2015 No Stop Date Active Augmentin 500 mg-125 mg tablet RxNorm: 302863 1 Tablet(s) PO BID 07/09/2015 2015 Inactive probiotic one bid x 7 days Augmentin 500 mg-125 mg tablet RxNorm: 677786 1 Tablet(s) PO BID 07/09/2015 07/08/2015 Inactive Xanax 0.25 mg tablet RxNorm: 414398 1 Tablet(s) PO BID PRN as needed 07/01/2015 09/28/2015 Inactive [SAVINGS FOR UNINSURED PATIENTS -- BIN:999744, PCN: ASPROD1, Group: AME08, ID# [id number], Process claim through HEROZ, for questions: . THIS IS NOT INSURANCE.] sertraline 100 mg tablet RxNorm: 673293 TAKE 1 TABLET BY MOUTH TWICE DAILY 07/01/2015 01/27/2016 Inactive Generic For:*ZOLOFT 100MG TABLET N O T I C E Last quantity doesn't match original quantity amlodipine 5 mg tablet RxNorm: 903336 TAKE 1 TABLET BY MOUTH TWICE DAILY 06/26/2015 04/23/2016 Inactive Generic For:NORVASC 5 MG TABLET N O T I C E Last quantity doesn't match original quantity amlodipine 5 mg tablet RxNorm: 259265 Tablet(s) 1 Tablet(s) PO BID 06/25/2015 06/25/2015 Inactive ropinirole 1 mg tablet RxNorm: 976899 TAKE 1 TABLET BY MOUTH DAILY EVERY NIGHT 05/22/2015 01/27/2016 Inactive Generic For:REQUIP 1 MG TABLET ropinirole 1 mg tablet RxNorm: 650408 Tablet(s) 1 Tablet(s) PO QPM 05/22/2015 05/21/2015 Inactive pravastatin 10 mg tablet RxNorm: 499333 TAKE 1 TABLET BY MOUTH EVERY NIGHT 05/14/2015 11/06/2015 Inactive Generic For:PRAVACHOL 10 MG TABLET tramadol 50 mg tablet RxNorm: 804719 2 Tablet(s) PO BID 04/25/2015 01/18/2016 Inactive labetalol 100 mg tablet RxNorm: 507828 1 Tablet(s) PO BID 04/09/2015 04/23/2016 Inactive omeprazole 20 mg capsule,delayed release RxNorm: 405153 1 Tablet(s) PO daily 1 Capsule(s) PO daily 03/20/2015 12/10/2015 Inactive Carafate 1 gram tablet RxNorm: 100439 Tablet(s) PO UD 4 times daily x 1 week and then PRN 02/27/2015 02/21/2016 Inactive Xanax 0.25 mg tablet RxNorm: 347688 1 Tablet(s) PO BID PRN as needed 02/08/2015 06/06/2015 Inactive [SAVINGS FOR UNINSURED PATIENTS -- BIN:200385, PCN: ASPROD1, Group: AME08, ID# [id number], Process claim through HEROZ, for questions: . THIS IS NOT INSURANCE.] furosemide 20 mg tablet RxNorm: 168183 1 Tablet(s) PO daily as needed for swelling 10/25/2014 02/21/2015 Inactive ok to fill by Dr. Franklin 10-25-14 Xanax 0.25 mg tablet RxNorm: 533078 1 Tablet(s) PO BID PRN as needed 09/25/2014 01/21/2015 Inactive [SAVINGS FOR UNINSURED PATIENTS -- BIN:895455, PCN: ASPROD1, Group: AME08, ID# [id number], Process claim through HEROZ, for questions: . THIS IS NOT INSURANCE.] pravastatin 10 mg tablet RxNorm: 300834 TAKE 1 TABLET BY MOUTH EVERY NIGHT 09/06/2014 04/03/2015 Inactive Generic For:PRAVACHOL 10 MG TABLET tramadol 50 mg tablet RxNorm: 521463 TAKE 2 TABLETS BY MOUTH TWICE DAILY 08/02/2014 01/15/2016 Inactive Generic For:ULTRAM 50 MG TABLET N O T I C E Last quantity doesn't match original quantity(Response to an electronic controlled substance refill request - RxReferenceNumber: [id number]) tramadol 50 mg tablet RxNorm: 021374 2 Tablet(s) PO BID 08/01/2014 08/02/2014 Inactive acyclovir 400 mg tablet RxNorm: 490650 2 Tablet(s) PO QID 07/16/2014 07/25/2014 Inactive sertraline 100 mg tablet RxNorm: 144773 1 Tablet(s) PO BID 1 Tablet(s) PO BID 06/13/2014 12/09/2014 Inactive sertraline 100 mg tablet RxNorm: 931003 1 Tablet(s) PO BID 06/13/2014 06/12/2014 Inactive magnesium oxide 400 mg tablet RxNorm: 473996 1 Tablet(s) PO daily 05/25/2014 2014 Inactive ropinirole 1 mg tablet RxNorm: 680260 1 Tablet(s) PO QPM 05/25/2014 05/19/2015 Inactive amlodipine 5 mg tablet RxNorm: 344985 1 Tablet(s) PO BID 05/25/2014 05/19/2015 Inactive prednisone 10 mg tablets in a dose pack RxNorm: 035710 1 Tablet(s) PO UD 04/06/2014 04/10/2014 Inactive 6-5-4-3-2-1 Xanax 0.25 mg tablet RxNorm: 472465 1 Tablet(s) PO BID PRN as needed 04/04/2014 07/02/2014 Inactive [SAVINGS FOR UNINSURED PATIENTS -- BIN:494684, PCN: ASPROD1, Group: AME08, ID# [id number], Process claim through [employer]Imp[employer], for questions: . THIS IS NOT INSURANCE.] prednisone 20 mg tablet RxNorm: 353682 3 Tablet(s) PO daily 04/02/2014 04/05/2014 Inactive [SAVINGS FOR UNINSURED PATIENTS -- BIN:749006, PCN: ASPROD1, Group: AME08, ID# [id number], Process claim through [employer], for questions: . THIS IS NOT INSURANCE.] cefdinir 300 mg capsule RxNorm: 304395 1 Capsule(s) PO BID 04/02/2014 04/11/2014 Inactive [SAVINGS FOR UNINSURED PATIENTS -- BIN:723020, PCN: ASPROD1, Group: AME08, ID# [id number], Process claim through [employer], for questions: . THIS IS NOT INSURANCE.] Kenalog 40 mg/mL suspension for injection RxNorm: 1130613 Milliliter(s) Inj 04/02/2014 04/02/2014 Inactive [SAVINGS FOR UNINSURED PATIENTS -- BIN:739324, PCN: ASPROD1, Group: AME08, ID# [id number], Process claim through [employer], for questions: . THIS IS NOT INSURANCE.] ceftriaxone 500 mg solution for injection RxNorm: 454619 Inj 04/02/2014 04/02/2014 Inactive [SAVINGS FOR UNINSURED PATIENTS -- BIN:876263, PCN: ASPROD1, Group: AME08, ID# [id number], Process claim through [employer], for questions: . THIS IS NOT INSURANCE.] albuterol sulfate 2.5 mg/0.5 mL solution for nebulization RxNorm: 263365 1 treatment INH QID and as needed for dyspnea 04/02/2014 05/31/2014 Inactive [SAVINGS FOR UNINSURED PATIENTS -- BIN:859830, PCN: ASPROD1, Group: AME08, ID# [id number], Process claim through [employer], for questions: . THIS IS NOT INSURANCE.] azithromycin 500 mg tablet RxNorm: 703228 1 Tablet(s) PO daily 04/02/2014 04/06/2014 Inactive [SAVINGS FOR UNINSURED PATIENTS -- BIN:336997, PCN: ASPROD1, Group: AME08, ID# [id number], Process claim through [employer]Imp[employer], for questions: . THIS IS NOT INSURANCE.] omeprazole 20 mg capsule,delayed release RxNorm: 100003 1 Tablet(s) PO daily 1 Capsule(s) PO daily 02/26/2014 06/25/2014 Inactive Xanax 0.25 mg tablet RxNorm: 988137 1 Tablet(s) PO BID PRN as needed 02/01/2014 04/03/2014 Inactive [SAVINGS FOR UNINSURED PATIENTS -- BIN:717794, PCN: ASPROD1, Group: AME08, ID# [id number], Process claim through [employer]Imp[employer], for questions: . THIS IS NOT INSURANCE.] Xanax 0.25 mg tablet RxNorm: 064131 1 Tablet(s) PO HS PRN as needed 01/04/2014 01/31/2014 Inactive [SAVINGS FOR UNINSURED PATIENTS -- BIN:561459, PCN: ASPROD1, Group: AME08, ID# [id number], Process claim through MedImpact, for questions: . THIS IS NOT INSURANCE.] pravastatin 10 mg tablet RxNorm: 922262 1 Tablet(s) PO QHS 12/21/2013 12/20/2013 Inactive pravastatin 10 mg tablet RxNorm: 331175 1 Tablet(s) PO QHS 12/21/2013 07/18/2014 Inactive [SAVINGS FOR UNINSURED PATIENTS -- BIN:777008, PCN: ASPROD1, Group: AME08, ID# [id number], Process claim through [employer]Impact, for questions: . THIS IS NOT INSURANCE.] Hytrin 1 mg tablet RxNorm: 835758 1 Tablet(s) PO BID 12/21/2013 04/08/2015 Inactive [SAVINGS FOR UNINSURED PATIENTS -- BIN:840637, PCN: ASPROD1, Group: AME08, ID# [id number], Process claim through [employer]Imp[employer], for questions: . THIS IS NOT INSURANCE.] Hytrin 1 mg tablet RxNorm: 797561 1 Tablet(s) PO daily 12/18/2013 12/20/2013 Inactive [SAVINGS FOR UNINSURED PATIENTS -- BIN:964610, PCN: ASPROD1, Group: AME08, ID# [id number], Process claim through MedImpact, for questions: . THIS IS NOT INSURANCE.] sertraline 100 mg tablet RxNorm: 067493 1 Tablet(s) PO QHS 12/14/2013 12/08/2014 Inactive [SAVINGS FOR UNINSURED PATIENTS -- BIN:692380, PCN: ASPROD1, Group: AME08, ID# [id number], Process claim through MedImp[employer], for questions: . THIS IS NOT INSURANCE.] Xanax 0.25 mg tablet RxNorm: 640873 1 Tablet(s) PO HS PRN as needed 12/13/2013 01/03/2014 Inactive [SAVINGS FOR UNINSURED PATIENTS -- BIN:000798, PCN: ASPROD1, Group: AME08, ID# [id number], Process claim through MedImpact, for questions: . THIS IS NOT INSURANCE.] tramadol 50 mg tablet RxNorm: 162751 2 Tablet(s) PO BID 11/08/2013 04/24/2015 Inactive Xanax 0.25 mg tablet RxNorm: 154820 1 Tablet(s) PO HS PRN as needed 10/19/2013 10/18/2013 Inactive Xanax 0.25 mg tablet RxNorm: 974003 1 Tablet(s) PO HS PRN as needed 10/19/2013 12/12/2013 Inactive Carafate 1 gram tablet RxNorm: 114569 Tablet(s) PO dissolve 1 tab QID x 1 week, then TID x 1 week, then BID x 1 week 09/07/2013 02/26/2015 Inactive omeprazole 20 mg capsule,delayed release RxNorm: 728771 1 Capsule(s) PO daily 09/07/2013 09/06/2013 Inactive omeprazole 20 mg capsule,delayed release RxNorm: 581597 1 Capsule(s) PO daily 09/07/2013 02/26/2014 Inactive prednisone 10 mg tablet RxNorm: 180672 1 Tablet(s) PO 08/25/2013 12/13/2013 Inactive prednisone taper Zithromax Z-Bon 250 mg tablet RxNorm: 674195 Tablet(s) PO as directed 08/25/2013 12/13/2013 Inactive Zithromax Z-Bon 250 mg tablet RxNorm: 521756 Tablet(s) PO as directed 08/04/2013 08/24/2013 Inactive Xanax 0.25 mg tablet RxNorm: 104748 1 Tablet(s) PO HS PRN 08/01/2013 10/18/2013 Inactive Kenalog 40 mg/mL suspension for injection RxNorm: 7551054 Milliliter(s) Inj 08/01/2013 08/01/2013 Inactive tramadol 50 mg tablet RxNorm: 207837 2 Tablet(s) PO BID 05/02/2013 11/07/2013 Inactive carvedilol 25 mg tablet RxNorm: 657974 1 Tablet(s) PO BID 05/02/2013 12/13/2013 Inactive magnesium oxide 400 mg tablet RxNorm: 322239 1 Tablet(s) PO daily 05/02/2013 04/26/2014 Inactive furosemide 20 mg tablet RxNorm: 976076 2 Tablet(s) PO daily 05/02/2013 2014 Inactive amlodipine 5 mg tablet RxNorm: 780069 1 Tablet(s) PO BID 05/02/2013 04/26/2014 Inactive sertraline 100 mg tablet RxNorm: 605196 1 Tablet(s) PO BID 05/02/2013 12/13/2013 Inactive ropinirole 1 mg tablet RxNorm: 576476 1 Tablet(s) PO QPM 05/02/2013 04/26/2014 Inactive pantoprazole 40 mg tablet,delayed release RxNorm: 166863 1 Tablet(s) PO daily 05/02/2013 2014 Inactive gabapentin 600 mg tablet RxNorm: 652947 1 Tablet(s) PO BID 05/02/2013 2014 Inactive aspirin 81 mg tablet,delayed release RxNorm: 778785 1 Tablet(s) PO daily No Start Date Active ferrous fumarate 325 mg (106 mg iron) tablet RxNorm: 414804 1 Tablet(s) PO daily No Start Date 2014 Inactive amlodipine 5 mg tablet RxNorm: 038550 1 Tablet(s) PO BID No Start Date 05/01/2013 Inactive Vitamin B-12 2,500 mcg sublingual tablet RxNorm: 216266 1 Tablet(s) SL daily No Start Date 2014 Inactive Zithromax Z-Bon 250 mg tablet RxNorm: 405868 Tablet(s) PO as directed No Start Date 08/03/2013 Inactive sertraline 100 mg tablet RxNorm: 072555 1 Tablet(s) PO BID No Start Date 05/01/2013 Inactive Hytrin 1 mg tablet RxNorm: 319606 1 Tablet(s) PO BID No Start Date 12/17/2013 Inactive potassium chloride ER 10 mEq capsule,extended release RxNorm: 413997 1 Capsule(s) PO QDAY PRN No Start Date 06/17/2016 Inactive Xanax 0.25 mg tablet RxNorm: 245530 1 Tablet(s) PO HS PRN No Start Date 07/31/2013 Inactive gabapentin 600 mg tablet RxNorm: 221090 1 Tablet(s) PO BID No Start Date 05/01/2013 Inactive ropinirole 1 mg tablet RxNorm: 883713 1 Tablet(s) PO QPM No Start Date 05/01/2013 Inactive Vitamin D3 1,000 unit tablet RxNorm: 337200 2 Tablet(s) PO daily No Start Date 09/11/2015 Inactive furosemide 20 mg tablet RxNorm: 321775 1 Tablet(s) PO BID No Start Date 05/01/2013 Inactive tramadol 50 mg tablet RxNorm: 583012 2 Tablet(s) PO BID No Start Date 05/01/2013 Inactive Carafate 1 gram tablet RxNorm: 563028 Tablet(s) PO dissolve 1 tab QID x 1 week, then TID x 1 week, then BID x 1 week No Start Date 09/06/2013 Inactive pantoprazole 40 mg tablet,delayed release RxNorm: 985047 1 Tablet(s) PO daily No Start Date 05/01/2013 Inactive montelukast 10 mg tablet RxNorm: 014875 1 Tablet(s) PO QHS No Start Date 04/23/2016 Inactive magnesium oxide 400 mg tablet RxNorm: 029275 1 Tablet(s) PO daily No Start Date 05/01/2013 Inactive prednisone 10 mg tablet RxNorm: 647368 1 Tablet(s) PO No Start Date 08/24/2013 Inactive prednisone taper carvedilol 25 mg tablet RxNorm: 060192 1 Tablet(s) PO BID No Start Date 05/01/2013 Inactive baclofen 10 mg tablet RxNorm: 911167 2 Tablet(s) PO daily No Start Date 12/13/2013 Inactive Vitamin B Complex capsule RxNorm: 1 Capsule(s) PO daily No Start Date 2014 Inactive Medication Administered Medication Codes Instructions Start Date Status Kenalog 40 mg/mL suspension for injection RxNorm: 1011294 Milliliter 09/15/2016 No longer Active Kenalog 40 mg/mL suspension for injection RxNorm: 3693873 Milliliter 04/02/2014 No longer Active ceftriaxone 500 mg solution for injection RxNorm: 254399 04/02/2014 No longer Active Kenalog 40 mg/mL suspension for injection RxNorm: 0824034 Milliliter 08/01/2013 No longer Active Immunizations Vaccine [...] Code Item Item Code Result Date Mayda 805878 MAYDA (MORTEZA) SCREEN NONE DETECTED 06/25/2017 Ra Factor Fey099 RA FACTOR <10 IU/ml 06/24/2017 D-Dimer D-DIMER [...] 28.6 pg 06/01/2017 Cbc With Differential Ord2 Kimble% 5.8 % 06/01/2017 Cbc With Differential Ord2 [...] 2.17 K/ul 06/01/2017 Cbc With Differential Ord2 Kimble ABS# 0.3 K/ul 06/01/2017 Cbc With Differential Ord2 Eos ABS# 0.1 K/ul 06/01/2017 Cbc With Differential Ord2 Baso ABS# 0.1 K/ul 06/01/2017 Comp Metabolic Rie246 NA 137 mEq/L 06/01/2017 Comp Metabolic Mjg673 K 3.7 mEq/L 06/01/2017 Comp Metabolic Zet072 CL 100 mEq/L 06/01/2017 Comp Metabolic Opu404 CO2 28.0 mEq/L 06/01/2017 Comp Metabolic Bxn821 ANION GAP 13 06/01/2017 Comp Metabolic Giz242 GLUCOSE 94 mg/dL 06/01/2017 Comp Metabolic Rpn532 Creat 1.3 mg/dL 06/01/2017 Comp Metabolic Xkz305 eGFR 45 ml/min/1.73m2 06/01/2017 Comp Metabolic Vqv604 BUN 12 mg/dL 06/01/2017 Comp Metabolic Kof583 B/C Ratio 9.6 Ratio 06/01/2017 Comp Metabolic Vtv401 CALCIUM 9.5 mg/dL 06/01/2017 Comp Metabolic Xqo858 ALK PHOS 77 U/L 06/01/2017 Comp Metabolic Jcb511 AST(SGOT) 17 U/L 06/01/2017 Comp Metabolic Bgt887 ALT(SGPT) 15 U/L 06/01/2017 Comp Metabolic Wtm640 BILI T 0.5 mg/dL 06/01/2017 Comp Metabolic Gra528 ALBUMIN 4.4 g/dL 06/01/2017 Comp Metabolic Lbi629 TPRO 7.0 g/dL 06/01/2017 Comp Metabolic Fgi785 GLOB 2.6 g/dL 06/01/2017 Comp Metabolic Mnw839 A/G Ratio 1.7 Ratio 06/01/2017 Comp Metabolic Hnx618 Osmo 273 mOsmo 06/01/2017 Mayda 554106 MAYDA (MORTEZA) SCREEN NONE DETECTED 06/22/2016 C-Reactive Protein Qnt Crqnt CRP 0.3 mg/dl 06/19/2016 Sed Rate Ord21 ESR 11 mm/hr 06/19/2016 Ra Factor Goi989 RA FACTOR <10 IU/ml 06/19/2016 Sed Rate Ord21 ESR 14 mm/hr 02/25/2016 C-Reactive Protein Qnt Crqnt CRP 0.3 mg/dl 02/25/2016 Comp Metabolic Kke806 NA 136 mEq/L 02/25/2016 Comp Metabolic Gfs738 K 3.9 mEq/L 02/25/2016 Comp Metabolic Lvc037 CL 103 mEq/L 02/25/2016 Comp Metabolic Tjm048 CO2 27.0 mEq/L 02/25/2016 Comp Metabolic Gsg613 ANION GAP 10 02/25/2016 Comp Metabolic Ajf500 GLUCOSE 82 mg/dL 02/25/2016 Comp Metabolic Guh612 Creat 1.3 mg/dL 02/25/2016 Comp Metabolic Fsn369 eGFR 45 ml/min/1.73m2 02/25/2016 Comp Metabolic Gml259 BUN 13 mg/dL 02/25/2016 Comp Metabolic Szr633 B/C Ratio 10.3 Ratio 02/25/2016 Comp Metabolic Goe855 CALCIUM 9.5 mg/dL 02/25/2016 Comp Metabolic Uon507 ALK PHOS 70 U/L 02/25/2016 Comp Metabolic Tyz911 AST(SGOT) 17 U/L 02/25/2016 Comp Metabolic Ctm631 ALT(SGPT) 13 U/L 02/25/2016 Comp Metabolic Kxg139 BILI T 0.4 mg/dL 02/25/2016 Comp Metabolic Igf607 ALBUMIN 4.2 g/dL 02/25/2016 Comp Metabolic Lqo680 TPRO 6.6 g/dL 02/25/2016 Comp Metabolic Lqn301 GLOB 2.4 g/dL 02/25/2016 Comp Metabolic Gcd115 A/G Ratio 1.7 Ratio 02/25/2016 Comp Metabolic Mql382 Osmo 271 mOsmo 02/25/2016 Cbc With Differential [...] 29.1 pg 02/25/2016 Cbc With Differential Ord2 Kimble% 6.8 % 02/25/2016 Cbc With Differential Ord2 [...] 1.62 K/ul 02/25/2016 Cbc With Differential Ord2 Kimble ABS# 0.4 K/ul 02/25/2016 Cbc With Differential Ord2 Eos ABS# 0.1 K/ul 02/25/2016 Cbc With Differential Ord2 Baso ABS# 0.0 K/ul 02/25/2016 Tsh Ord6 hTSH II 1.63 uIU/mL 02/25/2016 [place] Spotted Fever Igg/Igm [id number] [place] SPOTTED FEVER IGM EIA . 09/17/2015 [place] Spotted Fever Igg/Igm 440698 RMSF, IGM 0.27 index 09/17/2015 [place] Spotted Fever Igg/Igm 725045 BENIG[place] MT SPOTTED FEVER IGG EIA FLEX . 09/17/2015 [place] Spotted Fever Igg/Igm 930789 RMSF, IGG SCREEN-FLEX Negative 09/17/2015 Ehrlichia Chaffeensis Antibody Igm 399025 EHRLICHIA CHAFFEENSIS IGM < 1:16 09/16/2015 Ehrlichia Chaffeensis Antibody Igg 889885 EHRLICHIA CHAFFEENSIS IGG 1:256 09/16/2015 [place] Disease Total Antibodies With Western Blot Reflex [id number] B. BURGDORFERI, IGG/IGM 0.10 LI 09/14/2015 [place] Disease Total Antibodies With Western Blot Reflex [id number] 09/14/2015 Vitamin D 25 Oh [id number] VITAMIN D, 25 HYDROXY 59.60 ng/mL 09/13/2015 Sed Rate Ord21 ESR 10 mm/hr 09/12/2015 Comp Metabolic Olc004 NA 139 mEq/L 09/12/2015 Comp Metabolic Bhr202 K 3.8 mEq/L 09/12/2015 Comp Metabolic Wlt718 CL 103 mEq/L 09/12/2015 Comp Metabolic Uzq915 CO2 27.0 mEq/L 09/12/2015 Comp Metabolic Niq914 ANION GAP 13 09/12/2015 Comp Metabolic Obr620 GLUCOSE 91 mg/dL 09/12/2015 Comp Metabolic Krr367 Creat 1.2 mg/dL 09/12/2015 Comp Metabolic Vnm237 eGFR 47 ml/min/1.73m2 09/12/2015 Comp Metabolic Yyq340 BUN 20 mg/dL 09/12/2015 Comp Metabolic Urm663 B/C Ratio 16.3 Ratio 09/12/2015 Comp Metabolic Swj238 CALCIUM 9.3 mg/dL 09/12/2015 Comp Metabolic Zqv317 ALK PHOS 55 U/L 09/12/2015 Comp Metabolic Cyv143 AST(SGOT) 19 U/L 09/12/2015 Comp Metabolic Wlz763 ALT(SGPT) 14 U/L 09/12/2015 Comp Metabolic Xeh745 BILI T 0.6 mg/dL 09/12/2015 Comp Metabolic Ing518 ALBUMIN 4.3 g/dL 09/12/2015 Comp Metabolic Mso011 TPRO 6.8 g/dL 09/12/2015 Comp Metabolic Dlt293 GLOB 2.5 g/dL 09/12/2015 Comp Metabolic Eoh759 A/G Ratio 1.8 Ratio 09/12/2015 Comp Metabolic Azh889 Osmo 280 mOsmo 09/12/2015 B12 Ymx615 B12 >1500.00 pg/ml 09/12/2015 Cbc With Differential [...] 28.9 pg 09/12/2015 Cbc With Differential Ord2 Kimble% 5.9 % 09/12/2015 Cbc With Differential Ord2 [...] 1.33 K/ul 09/12/2015 Cbc With Differential Ord2 Kimble ABS# 0.3 K/ul 09/12/2015 Cbc With Differential [...] Full Exam - General 1994 Neurologic coordination Cznkva-ghqb-wmuoyl testing - left: dysmetria 05/11/2017 None Full Exam - General 1994 Neurologic coordination Lcqlgz-wdti-kruivn testing - right: dysmetria 05/11/2017 None Full [...] dentition 04/20/2016 None Full Exam - General 1995 Ears/Nose/Throat lips/teeth/gingiva Overall: benign gingiva 04/20/2016 None Full Exam - General 1995 Ears/Nose/Throat lips/teeth/gingiva Overall: no masses 04/20/2016 None [...] Full Exam - General 1994 Neurologic coordination Moqugm-yaxs-qluotv testing - left: dysmetria 04/20/2016 None Full Exam - General 1994 Neurologic coordination Iyxoea-xrrg-hfrlim testing - right: dysmetria 04/20/2016 None Full [...] Full Exam - General 1994 Neurologic coordination Srdnyn-tnbg-qhpkhj testing - left: dysmetria 02/25/2016 None Full Exam - General 1994 Neurologic coordination Wmdqnx-wyvk-siipys testing - right: dysmetria 02/25/2016 None Full [...] Full Exam - General 1994 Neurologic coordination Rfdhbl-eeml-pgnojz testing - left: dysmetria 01/28/2016 None Full Exam - General 1994 Neurologic coordination Dhxadg-asbw-pfnpfv testing - right: dysmetria 01/28/2016 None Full [...] palp - head/face Lesion: excoriation 07/16/2014 right alevism, redness right eyelid Full Exam - Dermatology [...] Procedure Codes Date THER/PROPH/DIAG INJ SC/IM CPT-4: 24378 09/15/2016 TRIAMCINOLONE ACET INJ NOS CPT-4: J3301 09/15/2016 ADMIN INFLUENZA VIRUS VAC CPT-4: G0008 01/08/2016 ADMIN PNEUMOCOCCAL VACCINE SNOMED CT: 25589839 CPT-4: G0009 01/08/2016 PNEUMOCOCCAL VACC 13 RIVERA IM Formatting Model/CDA Sections, Assigned to/Aliya Muñoz SNOMED CT: 37410883 CPT-4: 92071Gftoyvh 01/08/2016 FLU VACC 4 RIVERA 3 YRS PLUS IM SNOMED CT: 07501895 CPT-4: 66441 01/08/2016 THER/PROPH/DIAG INJ SC/IM CPT-4: 52528 04/02/2014 TRIAMCINOLONE ACET INJ NOS CPT-4: J3301 04/02/2014 ROCEPHIN, PER 250 MG CPT- 4: J0696 04/02/2014 TRIAMCINOLONE ACET INJ NOS CPT-4: J3301 08/01/2013 THER/PROPH/DIAG INJ SC/IM CPT-4: 61524 08/01/2013 Vital Signs Date Vital 01/25/2018 Blood Pressure 1: 130/68 Code: 8480-6 BMI: 34.4 Code: 51373-1 Heart Rate 1: 91 bpm Height: 5'5" SpO2: 95% Weight: 207 lbs 10/06/2017 Blood Pressure 1: 118/78 Code: 8480-6 BMI: 34.3 Code: 93063-9 Heart Rate 1: 75 bpm Height: 5'5" SpO2: 98% Weight: 206 lbs 09/27/2017 Blood Pressure 1: 136/88 Code: 8480-6 BMI: 35.4 Code: 63071-1 Heart Rate 1: 86 bpm Height: 5'5" SpO2: 98% Weight: 213 lbs 07/23/2017 Blood Pressure 1: 106/58 Code: 8480-6 BMI: 34.8 Code: 80666-5 Heart Rate 1: 70 bpm Height: 5'5" SpO2: 96% Weight: 209 lbs 06/01/2017 Blood Pressure 1: 150/96 Code: 8480-6 BMI: 34.4 Code: 26251-9 Heart Rate 1: 82 bpm Height: 5'5" SpO2: 99% Weight: 207 lbs 05/11/2017 Blood Pressure 1: 144/90 Code: 8480-6 BMI: 34.6 Code: 15659-8 Heart Rate 1: 76 bpm Height: 5'5" SpO2: 98% Weight: 208 lbs 10/30/2016 Blood Pressure 1: 172/104 Code: 8480-6 Blood Pressure 1: 158/98 Code: 8480-6 BMI: 34.7 Code: 00035-2 Heart Rate 1: 70 bpm Height: 5'5" SpO2: 97% Temperature: 36.2 (C) / 97.1 (F) Weight: 208 lbs 10 04/20/2016 Blood Pressure 1: 144/86 Code: 8480-6 BMI: 34.3 Code: 70925-9 Heart Rate 1: 68 bpm Height: 5'5" SpO2: 97% Weight: 206 lbs 02/25/2016 Blood Pressure 1: 122/82 Code: 8480-6 BMI: 34.4 Code: 62928-3 Heart Rate 1: 86 bpm Height: 5'5" SpO2: 94% Weight: 207 lbs 01/28/2016 Blood Pressure 1: 128/86 Code: 8480-6 BMI: 33.3 Code: 33468-0 Heart Rate 1: 86 bpm Height: 5'5" SpO2: 96% Weight: 200 lbs 11/14/2015 Blood Pressure 1: 140/90 Code: 8480-6 Blood Pressure 1: 138/88 Code: 8480-6 BMI: 33.3 Code: 69493-8 Heart Rate 1: 98 bpm Height: 5'5" SpO2: 97% Weight: 200 lbs 10/10/2015 Blood Pressure 1: 132/80 Code: 8480-6 BMI: 33.3 Code: 58639-6 Heart Rate 1: 74 bpm Height: 5'5" SpO2: 96% Weight: 200 lbs 09/12/2015 Blood Pressure 1: 148/90 Code: 8480-6 BMI: 32.9 Code: 05412-0 Heart Rate 1: 94 bpm Height: 5'5" SpO2: 97% Weight: 198 lbs 04/09/2015 Blood Pressure 1: 160/82 Code: 8480-6 Blood Pressure 1: 130/84 Code: 8480-6 BMI: 32.4 Code: 50619-7 Heart Rate 1: 74 bpm Height: 5'5" SpO2: 95% Weight: 195 lbs 10/05/2014 Blood Pressure 1: 140/80 Code: 8480-6 BMI: 30.5 Code: 74808-9 Heart Rate 1: 79 bpm Height: 5'5" SpO2: 98% Weight: 183 lbs 09/07/2014 Blood Pressure 1: 142/96 Code: 8480-6 BMI: 32.1 Code: 43452-3 Heart Rate 1: 72 bpm Height: 5'5" SpO2: 98% Temperature: 36.5 (C) / 97.7 (F) Weight: 193 lbs 07/16/2014 Blood Pressure 1: 138/82 Code: 8480-6 BMI: 31.8 Code: 65142-3 Heart Rate 1: 76 bpm Height: 5'5" Weight: 191 lbs 04/02/2014 Blood Pressure 1: 148/90 Code: 8480-6 BMI: 33.8 Code: 69994-0 Heart Rate 1: 68 bpm Height: 5'5" Temperature: 36.9 (C) / 98.4 (F) Weight: 203 lbs 12/14/2013 Blood Pressure 1: 140/88 Code: 8480-6 BMI: 35.3 Code: 04446-1 Heart Rate 1: 91 bpm Height: 5'5" SpO2: 97% Weight: 212 lbs 08/01/2013 Blood Pressure 1: 126/68 Code: 8480-6 BMI: 35.1 Code: 52042-9 Heart Rate 1: 76 bpm Height: 5'5" Temperature: 36.7 (C) / 98.1 (F) Weight: 211 lbs 05/02/2013 Blood Pressure 1: 118/86 Code: 8480-6 BMI: 34.9 Code: 74399-6 Heart Rate 1: 76 bpm Height: 5'5" Weight: 209 lbs 8 oz 04/18/2013 Blood Pressure 1: 118/60 Code: 8480-6 BMI: 35.3 Code: 57322-8 Heart Rate 1: 68 bpm Height: 5'5" [...] data Encounters Encounter Performer Location Codes Date ([id number]) 57333 EST. PATIENT, LEVEL III Diagnosis: Essential (primary) hypertension[ICD10: I10] [facility] CPT-4: 09226 01/25/2018 ([id number]) 66414 EST. 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 PATIENT, LEVEL IV Diagnosis: Essential (primary) hypertension[ICD10: I10] Diagnosis: Localized edema[ICD10: R60.0] Marilyn Lao MD, [facility] CPT-4: 90284 09/27/2017 ([id number]) 68103 EST. PATIENT, LEVEL IV Diagnosis: Generalized anxiety disorder[ICD10: F41.1] Diagnosis: Essential (primary) hypertension[ICD10: I10] Diagnosis: Chronic pain syndrome[ICD10: G89.4] Noa Lao MD, [facility] CPT-4: 47363 07/23/2017 ([id number]) 04532 EST. PATIENT, LEVEL IV Diagnosis: Essential (primary) hypertension[ICD10: I10] Diagnosis: Chest pain, unspecified[ICD10: R07.9] Diagnosis: Chronic kidney disease, stage 3 (moderate)[ICD10: N18.3] Noa Lao MD, [facility] CPT-4: 85984 06/01/2017 [id number] EST. PATIENT, LEVEL IV Diagnosis: Gastro-esophageal reflux disease without esophagitis[ICD10: K21.9] Anais Lao MD, [facility] CPT-4: 42999 05/11/2017 ([id number]) 45918 EST. PATIENT, LEVEL III Diagnosis: Essential (primary) hypertension[ICD10: I10] Diagnosis: Contusion of right lower leg, initial encounter[ICD10: S80.11XA] Noa Lao MD, [facility] CPT-4: 22408 10/30/2016 ([id number]) 70480 EST. PATIENT, LEVEL IV Diagnosis: Essential (primary) hypertension[ICD10: I10] Diagnosis: Generalized anxiety disorder[ICD10: F41.1] Marilyn Lao MD, [facility] CPT-4: 26114 04/20/2016 ([id number]) 76898 EST. PATIENT, LEVEL IV Diagnosis: Essential (primary) hypertension[ICD10: I10] Diagnosis: Chronic kidney disease, stage 3 (moderate)[ICD10: N18.3] Diagnosis: Generalized anxiety disorder[ICD10: F41.1] Diagnosis: Major depressive disorder, recurrent, moderate[ICD10: F33.1] Diagnosis: Shortness of breath[ICD10: R06.02] Noa Lao MD, [facility] CPT- 4: 07434 02/25/2016 [id number]) 00420 EST. PATIENT, LEVEL IV Diagnosis: Generalized anxiety disorder[ICD10: F41.1] Diagnosis: Major depressive disorder, recurrent, moderate[ICD10: F33.1] Diagnosis: Essential (primary) hypertension[ICD10: I10] Diagnosis: Restless legs syndrome[ICD10: G25.81] Diagnosis: Myalgia[ICD10: M79.1] Noa Lao MD, [facility] CPT-4: 91120 01/28/2016 ([id number]) 91751 EST. PATIENT, LEVEL III Diagnosis: Essential (primary) hypertension[ICD10: I10] Diagnosis: Insomnia, unspecified[ICD10: G47.00] Noa Lao MD, [facility] CPT-4: 44317 11/14/2015 [id number]) 52820 EST. 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 PATIENT, LEVEL IV Diagnosis: Bitten or stung by nonvenomous insect and other nonvenomous arthropods, initial encounter[ICD10: W57.XXXA] Diagnosis: Other fatigue[ICD10: R53.83] Diagnosis: Vitamin D deficiency, unspecified[ICD10: E55.9] Diagnosis: Other vitamin B12 deficiency anemias[ICD10: D51.8] Diagnosis: Essential (primary) hypertension[ICD10: I10] Diagnosis: Iron deficiency[ICD10: E61.1] Noa Lao MD, [facility] CPT-4: 26969 09/12/2015 ([id number]) 34203 EST. PATIENT, LEVEL III Diagnosis: Essential (primary) hypertension[ICD10: I10] Diagnosis: Chronic kidney disease, stage 3 (moderate)[ICD10: N18.3] Noa Lao MD, [facility] CPT-4: 69571 04/09/2015 ([id number]) 20522 EST. PATIENT, LEVEL III Diagnosis: ESSENTIAL HYPERTENSION[ICD9: 401.9] Noa Lao MD, [facility] CPT-4: 62898 10/05/2014 ([id number]) 07694 EST. PATIENT, LEVEL IV Diagnosis: Easy bruising[ICD9: 782.9] Diagnosis: Iron deficiency anemia[ICD9: 280.9] Diagnosis: ESSENTIAL HYPERTENSION[ICD9: 401.9] Diagnosis: Chronic kidney disease, stage 3[ICD9: 585.3] Noa Lao MD, [facility] CPT-4: 21192 09/07/2014 ([id number]) 62274 EST. PATIENT, LEVEL III Diagnosis: Shingles[ICD9: 053.9] Marilyn Lao MD, [facility] CPT-4: 42865 07/16/2014 ([id number]) 32474 EST. PATIENT, LEVEL III Diagnosis: PNEUMONIA (CAP)[ICD9: 486] Diagnosis: COUGH[ICD9: 786.2] Marilyn Lao MD, [facility] CPT-4: 09948 04/02/2014 ([id number]) 52240 EST. PATIENT, LEVEL III Diagnosis: ESSENTIAL HYPERTENSION[ICD9: 401.9] Diagnosis: Rib pain on left side[ICD9: 786.50] Diagnosis: EDEMA[ICD9: 782.3] Noa Lao MD, [facility] CPT-4: 55484 12/14/2013 ([id number]) 85540 EST. PATIENT, LEVEL IV Diagnosis: ESOPHAGEAL REFLUX[ICD9: 530.81] Diagnosis: Urge incontinence[ICD9: 788.31] Diagnosis: Elbow pain, right[ICD9: 719.42] Diagnosis: Snoring[ICD9: 786.09] [facility] CPT-4: 13593 08/01/2013 ([id number] 71357 EST. PATIENT, LEVEL IV Diagnosis: ESSENTIAL HYPERTENSION[SNOMED: 30677475] Diagnosis: EDEMA[ICD9: 782.3] Diagnosis: Chronic renal insufficiency, stage III (moderate)[ICD9: 585.3] Diagnosis: HYPERLIPIDEMIA[ICD9: 272.4] Marilyn Lao MD, [facility] CPT-4: 06446 05/02/2013 ([id number] 09114 EST. PATIENT, LEVEL IV Diagnosis: ESSENTIAL HYPERTENSION[SNOMED: 86156107] Diagnosis: Restless leg[ICD9: 333.94] Marilyn Lao MD, [facility] CPT-4: 98819 04/18/2013 Plan of Care Planned Activity Notes Codes Status Date Visit Plan: Hypertension - well controlled - continue with current medications, continue with no added salt diet. Pt has been encouraged to exercise daily. The pt has been advised to call the office if there are any acute concerns about change in blood pressure readings at home. 01/25/2018 Appointment: Marilyn Lao WPtel: [address] [place], [place] [phone] (15 min) Moderate 01/25/2018 Patient Education: Patient Medication Summary Completed 01/25/2018 Appointment: Marilyn Lao WPtel: [address] [place], [place] [address] (15 min) Moderate 01/06/2018 Patient Education: Patient Medication Summary Completed 10/26/2017 Care Plan: Comp Metabolic Cancelled 10/26/2017 Visit Plan: Tinea/Onychodystrophy - penlac prescribed, pt did not want to take medication by mouth for treatment. Edema - improved - continue current regimen. 10/06/2017 Appointment: Marilyn Lao WPtel: [address] [place], [place] [phone] (15 min) Moderate 10/06/2017 Patient Education: Patient [...] at home. 09/27/2017 Appointment: Marilyn Lao WPtel: [facility] [place] (15 min) Moderate 09/27/2017 Patient Education: [...] pain-recommend massage 07/23/2017 Appointment: Noa Orlando WPtel: [phone] [phone] [place] (15 min) Moderate 07/23/2017 [...] worsens 06/01/2017 Appointment: Noa Orlando WPtel: [phone] [phone] (30 min) Complex 06/01/2017 Patient Education: Patient Medication Summary Completed 06/01/2017 Care Plan: Referral Order SNOMED-CT : 466380721 Pending 06/01/2017 Visit Plan: Esophageal Reflux - the patient has been counseled against excessive intake of caffeine, spicy foods, peppermint, and cinnamon - all of which can exacerbate esophageal reflux. The patient is to take med ications as prescribed and call the office if the symptoms are not improving. 05/11/2017 Appointment: Anais Arrieta WPtel: [facility] (15 min) Moderate 05/11/2017 Patient Education: Patient [...] Summary Completed 09/15/2016 Appointment: Marilyn Lao WPtel: [facility] (15 min) Moderate 08/19/2016 Patient Education: Patient [...] current medications. 04/20/2016 Appointment: [facility]ily[facility]Ptel[facility] (30 min) Complex 04/20/2016 Patient Education: Patient Medication Summary Completed 04/20/2016 Patient Education: Obesity Completed 04/20/2016 Patient Education: Hypertension Completed 04/20/2016 Appointment: Noa Orlando WPtel: [phone] [phone] (30 min) Complex 03/16/2016 Referral: [...] for follow up. Chronic renal disease-check labs Qhvktnk-fkjvibyogw-xwkmnpvh with cymbalta-continue same dose for now -may take xanax TID PRN Multiple joint pain-check labs including inflammatory markers 02/25/2016 Appointment: Noa Orlando WPtel: [phone] (30 min) Complex 02/25/2016 Patient Education: Patient Medication Summary Completed 02/25/2016 Patient Education: Obesity Completed 02/25/2016 Patient Education: Hypertension Completed 02/25/2016 Care Plan: Referral Order SNOMED-CT : [id number] Pending 02/25/2016 Visit Plan: Anxiety/Depression - the [...] in blood pressure readings at home. Restless ycb-qvcbbp-kybefkkr requip to twice daily-monitor symptoms Myalgias-stop pravastatin 01/28/2016 Appointment: Noa Orlando WPtel: [phone] [phone] (30 min) Complex 01/28/2016 Patient Education: Patient [...] Hypertension Completed 10/10/2015 Appointment: Marilyn Lao WPtel: [facility] (15 min) Moderate 10/08/2015 Visit Plan: Hypertension - well controlled - continue with current medications, continue with no added salt diet. Pt has been encouraged to exercise daily. The pt has been advised to call the office if there are any acute concerns about change in blood pressure readings at home. 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 Antibiotics started. The pt is aware of the diagnosis and the need for acute treatment of this illness. 04/02/2014 Patient Education: Patient Medication Summary Completed 04/02/2014 Appointment: Marilyn Lao WPtel: [address] [place], [place] [phone] Sick 12/27/2013 Patient Education: Patient Medication Summary [...] further attempt to reduce peripheral edema. Night gcwcse-jxdlefk-dlnwf labs 12/14/2013 Appointment: Follow up 12/14/2013 Patient Education: Patient Medication Summary Completed 12/14/2013 Patient Education: Hypertension Completed 12/14/2013 Appointment: Noa Orlando WPtel: [phone] Sick 12/01/2013 Appointment: Marilyn Lao WPtel: [address] [place], [place] [phone] Sick 11/30/2013 Visit Plan: Allergies - chronic [...] monitor symptoms. 08/01/2013 Appointment: [phone] [facility] 08/01/2013 Patient Education: Patient Medication [...] able. 05/02/2013 Appointment: [facility]el[phone] [facility] Follow up 05/02/2013 Patient Education: Patient Medication [...] orange juice. 04/18/2013 Appointment: [facility]el[facility] [phone] [facility] New Patient 04/18/2013 Patient Education: Patient Medication [...] in blood pressure readings at home. Restless uyo-hvdblm-ailszxdn requip to twice daily-monitor symptoms Myalgias-stop pravastatin [...] for follow up. Chronic renal disease-check labs Dgjpokc-komroapnpw-qlawgtyb with cymbalta-continue same dose for now -may [...] at home. Iron deficiency-B12 deficiency-check labs Tick uxul-lgvepxf-awzei tick panel PATIENT IS TO CHECK BLOOD [...] infection or other concerns . 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 Night yycimj-jovdsak-lnvvd labs
[2018-11-04 16:00] VITALS: BP 144/84
--- OUTSIDE RECORDS SUMMARY | 2018-11-04 16:03 | XMS REPORT | CCD ---
Author Author Marilyn Lao Organization Marilyn Lao MD, [facility] Address [address] [place] [address] Phone Care Team Providers Care Lunch Cook Name Role Phone PP Unavailable CCM Unavailable Summary Purpose Interface Exchange Insurance Providers Payer name Policy type / Coverage type Covered republican ID Effective Begin Date Effective End Date WPS Medicare Part B Medicare Part B [id number] Unknown [employer] and Life Medicare Part B [id number] Unknown Family history Mother Diagnosis Age At [...] Description Effective Dates Tobacco history SNOMED CT: 547290072 Never smoker but had significant smoke exposure during first marriage, [place]. 08/01/2013 Employment Unknown Retired doing as needed working for the [employer]. 05/02/2013 Marital status Unknown 04/18/[address]: [id number] Never drinks alcohol 04/18/2013 Has the patient [...] Fill Instructions ropinirole 1 mg tablet RxNorm: 246044 TAKE TWO TABLETS BY MOUTH EVERY NIGHT AT BEDTIME 07/04/2018 03/30/2019 Active Carafate 1 gram tablet RxNorm: 078265 TAKE ONE TABLET BY MOUTH FOUR TIMES A DAY 07/04/2018 10/01/2018 Active montelukast 10 mg tablet RxNorm: 502851 TAKE ONE TABLET BY MOUTH EVERY NIGHT AT BEDTIME 07/04/2018 03/30/2019 Active losartan 100 mg tablet RxNorm: 412998 1 Tablet(s) PO daily 05/04/2018 01/28/2019 Active tramadol 50 mg tablet RxNorm: 757545 2 Tablet(s) PO BID 04/26/2018 06/24/2018 Inactive Xanax 0.5 mg tablet RxNorm: 596078 1 Tablet(s) PO TID PRN as needed 04/04/2018 07/31/2018 Active alprazolam 0.5 mg tablet RxNorm: 198247 1/2-1 Tablet(s) PO TID PRN as needed 04/04/2018 06/01/2018 Inactive tramadol 50 mg tablet RxNorm: 499795 2 Tablet(s) PO BID 12/01/2017 01/29/2018 Inactive Cymbalta 60 mg capsule,delayed release RxNorm: 193202 TAKE ONE CAPSULE BY MOUTH DAILY 11/10/2017 11/04/2018 Active furosemide 40 mg tablet RxNorm: 020161 1 Tablet(s) PO daily 10/26/2017 10/20/2018 Active alprazolam 0.5 mg tablet RxNorm: 095171 1/2-1 Tablet(s) PO TID PRN as needed 10/12/2017 12/10/2017 Inactive Ciclodan 8 % topical solution RxNorm: 2614430 1 Application TOP daily x 7 days, clean off with alcohol then restart cycle of application until fungal infection is completely cleared 10/06/2017 01/03/2018 Inactive omeprazole 20 mg capsule,delayed release RxNorm: 763069 TAKE ONE CAPSULE BY MOUTH DAILY 10/04/2017 01/24/2018 Inactive losartan 100 mg tablet RxNorm: 528003 1 Tablet(s) PO daily 09/27/2017 03/24/2018 Inactive Xanax 0.25 mg tablet RxNorm: 986097 1 Tablet(s) PO TID PRN as needed 08/13/2017 10/11/2017 Inactive Xanax 0.5 mg tablet RxNorm: 892972 1 Tablet(s) PO TID PRN as needed 07/23/2017 11/18/2017 Inactive ropinirole 1 mg tablet RxNorm: 412363 TAKE TWO TABLETS BY MOUTH EVERY NIGHT AT BEDTIME 06/28/2017 06/22/2018 Inactive montelukast 10 mg tablet RxNorm: 868003 TAKE ONE TABLET BY MOUTH EVERY NIGHT AT BEDTIME 06/28/2017 06/22/2018 Inactive furosemide 20 mg tablet RxNorm: 252836 TAKE TWO TABLETS BY MOUTH DAILY FOR 7 DAYS THEN TAKE ONE TABLET BY MOUTH DAILY 06/28/2017 10/01/2017 Inactive losartan 50 mg tablet RxNorm: 905336 1 Tablet(s) PO daily 06/01/2017 09/26/2017 Inactive labetalol 100 mg tablet RxNorm: 119027 TAKE ONE TABLET BY MOUTH TWICE A DAY 05/26/2017 05/30/2017 Inactive labetalol 100 mg tablet RxNorm: 170469 1 Tablet(s) PO BID 05/26/2017 05/20/2018 Inactive Protonix 40 mg tablet,delayed release RxNorm: 211894 1 Tablet(s) PO daily 05/26/2017 05/20/2018 Inactive amlodipine 5 mg tablet RxNorm: 254784 TAKE ONE TABLET BY MOUTH TWICE A DAY 05/26/2017 09/26/2017 Inactive Protonix 40 mg tablet,delayed release RxNorm: 542394 1 Tablet(s) PO daily 05/11/2017 05/25/2017 Inactive Carafate 1 gram tablet RxNorm: 586528 1 Tablet(s) PO QID 05/11/2017 09/07/2017 Inactive Cymbalta 60 mg capsule,delayed release RxNorm: 827535 TAKE ONE CAPSULE BY MOUTH DAILY 05/05/2017 10/31/2017 Inactive Xanax 0.25 mg tablet RxNorm: 419458 1 Tablet(s) PO TID PRN as needed 02/09/2017 06/07/2017 Inactive Cymbalta 60 mg capsule,delayed release RxNorm: 204117 TAKE ONE CAPSULE BY MOUTH DAILY 10/28/2016 04/25/2017 Inactive Xanax 0.25 mg tablet RxNorm: 812793 1 Tablet(s) PO TID PRN as needed 10/08/2016 12/06/2016 Inactive NEED TO GIVE #90 WITH NEXT REFILL Kenalog 40 mg/mL suspension for injection RxNorm: 9617054 Milliliter(s) Inj 09/15/2016 09/15/2016 Inactive tramadol 50 mg tablet RxNorm: 997045 Tablet(s) TAKE 2 TABLETS BY MOUTH TWICE DAILY 08/18/2016 02/12/2017 Inactive Generic For:ULTRAM 50 MG TABLET N O T I C E Last quantity doesn't match original quantity(Response to an electronic controlled substance refill request - RxReferenceNumber: [id number]) potassium chloride ER 10 mEq capsule,extended release RxNorm: 559119 TAKE ONE CAPSULE BY MOUTH DAILY NEEDED 08/03/2016 01/29/2017 Inactive potassium chloride ER 10 mEq capsule,extended release RxNorm: 815106 1 Capsule(s) PO QDAY PRN 06/18/2016 08/02/2016 Inactive furosemide 20 mg tablet RxNorm: 443032 1 Tablet(s) PO daily as needed for swelling 06/18/2016 06/12/2017 Inactive 2 daily x 1 week then daily Carafate 1 gram tablet RxNorm: 829683 1 Tablet(s) PO daily 04/24/2016 04/18/2017 Inactive Cymbalta 60 mg capsule,delayed release RxNorm: 647627 1 Capsule(s) PO daily 04/24/2016 10/20/2016 Inactive montelukast 10 mg tablet RxNorm: 183883 1 Tablet(s) PO QHS 04/24/2016 04/18/2017 Inactive omeprazole 20 mg capsule,delayed release RxNorm: 748485 Capsule(s) 1 Capsule(s) PO daily 04/24/2016 05/31/2017 Inactive ropinirole 1 mg tablet RxNorm: 166159 2 Tablet(s) PO QHS 04/24/2016 04/18/2017 Inactive furosemide 20 mg tablet RxNorm: 918460 1 Tablet(s) PO daily as needed for swelling 04/24/2016 06/17/2016 Inactive labetalol 100 mg tablet RxNorm: 477368 1 Tablet(s) PO BID 04/24/2016 04/18/2017 Inactive amlodipine 5 mg tablet RxNorm: 835507 Tablet(s) TAKE 1 TABLET BY MOUTH TWICE DAILY 04/24/2016 04/18/2017 Inactive Transferring from [facility] Xanax 0.25 mg tablet RxNorm: 698771 1 Tablet(s) PO TID PRN as needed 02/25/2016 03/25/2016 Inactive NEED TO GIVE #90 WITH NEXT REFILL Xanax 0.25 mg tablet RxNorm: 868056 1 Tablet(s) PO BID PRN as needed 02/19/2016 02/24/2016 Inactive [SAVINGS FOR UNINSURED PATIENTS -- BIN:721356, PCN: ASPROD1, Group: AME, ID# [id number], Process claim through [employer], for questions: . THIS IS NOT INSURANCE.] Cymbalta 60 mg capsule,delayed release RxNorm: 552253 1 Capsule(s) PO daily 01/28/2016 04/23/2016 Inactive ropinirole 1 mg tablet RxNorm: 707816 1 Tablet(s) PO BID TAKE 1 TABLET BY MOUTH DAILY EVERY NIGHT 01/28/2016 04/23/2016 Inactive Generic For:REQUIP 1 MG TABLET tramadol 50 mg tablet RxNorm: 303227 Tablet(s) TAKE 2 TABLETS BY MOUTH TWICE DAILY 01/16/2016 07/13/2016 Inactive Generic For:ULTRAM 50 MG TABLET N O T I C E Last quantity doesn't match original quantity(Response to an electronic controlled substance refill request - RxReferenceNumber: [id number]) omeprazole 20 mg capsule,delayed release RxNorm: 279337 1 Tablet(s) PO daily 1 Capsule(s) PO daily 12/11/2015 04/23/2016 Inactive pravastatin 10 mg tablet RxNorm: 736220 1 Tablet(s) PO QHS TAKE 1 TABLET BY MOUTH EVERY NIGHT 11/28/2015 01/27/2016 Inactive Generic For:PRAVACHOL 10 MG TABLET furosemide 20 mg tablet RxNorm: 232557 1 Tablet(s) PO daily as needed for swelling 11/12/2015 04/23/2016 Inactive pravastatin 10 mg tablet RxNorm: 277026 1 Tablet(s) PO QHS TAKE 1 TABLET BY MOUTH EVERY NIGHT 11/07/2015 11/27/2015 Inactive Generic For:PRAVACHOL 10 MG TABLET Xanax 0.25 mg tablet RxNorm: 225896 1 Tablet(s) PO BID PRN as needed 10/28/2015 01/25/2016 Inactive [SAVINGS FOR UNINSURED PATIENTS -- BIN:693708, PCN: ASPROD1, Group: AME08, ID# [id number], Process claim through [employer], for questions: . THIS IS NOT INSURANCE.] Viberzi 75 mg tablet RxNorm: 1866199 1 Tablet(s) PO BID 10/10/2015 10/10/2015 Inactive doxycycline hyclate 100 mg tablet RxNorm: 380017 1 Tablet(s) PO BID 10/10/2015 10/23/2015 Inactive Vitamins B Complex capsule RxNorm: 1 Capsule(s) PO daily 09/12/2015 No Stop Date Active Vitamin D3 1,000 unit tablet RxNorm: 832149 3-4 Tablet(s) PO daily 09/12/2015 No Stop Date Active Augmentin 500 mg-125 mg tablet RxNorm: 273610 1 Tablet(s) PO BID 07/09/2015 2015 Inactive probiotic one bid x 7 days Augmentin 500 mg-125 mg tablet RxNorm: 409822 1 Tablet(s) PO BID 07/09/2015 07/08/2015 Inactive Xanax 0.25 mg tablet RxNorm: 669943 1 Tablet(s) PO BID PRN as needed 07/01/2015 09/28/2015 Inactive [SAVINGS FOR UNINSURED PATIENTS -- BIN:800330, PCN: ASPROD1, Group: AME08, ID# [id number], Process claim through [employer], for questions: . THIS IS NOT INSURANCE.] sertraline 100 mg tablet RxNorm: 756418 TAKE 1 TABLET BY MOUTH TWICE DAILY 07/01/2015 01/27/2016 Inactive Generic For:*ZOLOFT 100MG TABLET N O T I C E Last quantity doesn't match original quantity amlodipine 5 mg tablet RxNorm: 429885 TAKE 1 TABLET BY MOUTH TWICE DAILY 06/26/2015 04/23/2016 Inactive Generic For:NORVASC 5 MG TABLET N O T I C E Last quantity doesn't match original quantity amlodipine 5 mg tablet RxNorm: 875254 Tablet(s) 1 Tablet(s) PO BID 06/25/2015 06/25/2015 Inactive ropinirole 1 mg tablet RxNorm: 038206 TAKE 1 TABLET BY MOUTH DAILY EVERY NIGHT 05/22/2015 01/27/2016 Inactive Generic For:REQUIP 1 MG TABLET ropinirole 1 mg tablet RxNorm: 627005 Tablet(s) 1 Tablet(s) PO QPM 05/22/2015 05/21/2015 Inactive pravastatin 10 mg tablet RxNorm: 644815 TAKE 1 TABLET BY MOUTH EVERY NIGHT 05/14/2015 11/06/2015 Inactive Generic For:PRAVACHOL 10 MG TABLET tramadol 50 mg tablet RxNorm: 017229 2 Tablet(s) PO BID 04/25/2015 01/18/2016 Inactive labetalol 100 mg tablet RxNorm: 486245 1 Tablet(s) PO BID 04/09/2015 04/23/2016 Inactive omeprazole 20 mg capsule,delayed release RxNorm: 779544 1 Tablet(s) PO daily 1 Capsule(s) PO daily 03/20/2015 12/10/2015 Inactive Carafate 1 gram tablet RxNorm: 875110 Tablet(s) PO UD 4 times daily x 1 week and then PRN 02/27/2015 02/21/2016 Inactive Xanax 0.25 mg tablet RxNorm: 026335 1 Tablet(s) PO BID PRN as needed 02/08/2015 06/06/2015 Inactive [SAVINGS FOR UNINSURED PATIENTS -- BIN:241532, PCN: ASPROD1, Group: AME08, ID# [id number], Process claim through [employer], for questions: . THIS IS NOT INSURANCE.] furosemide 20 mg tablet RxNorm: 134827 1 Tablet(s) PO daily as needed for swelling 10/25/2014 02/21/2015 Inactive ok to fill by Dr. Franklin 10-25-14 Xanax 0.25 mg tablet RxNorm: 016716 1 Tablet(s) PO BID PRN as needed 09/25/2014 01/21/2015 Inactive [SAVINGS FOR UNINSURED PATIENTS -- BIN:937371, PCN: ASPROD1, Group: AME08, ID# [id number], Process claim through [employer], for questions: . THIS IS NOT INSURANCE.] pravastatin 10 mg tablet RxNorm: 698447 TAKE 1 TABLET BY MOUTH EVERY NIGHT 09/06/2014 04/03/2015 Inactive Generic For:PRAVACHOL 10 MG TABLET tramadol 50 mg tablet RxNorm: 568240 TAKE 2 TABLETS BY MOUTH TWICE DAILY 08/02/2014 01/15/2016 Inactive Generic For:ULTRAM 50 MG TABLET N O T I C E Last quantity doesn't match original quantity(Response to an electronic controlled substance refill request - RxReferenceNumber: [id number]) tramadol 50 mg tablet RxNorm: 632757 2 Tablet(s) PO BID 08/01/2014 08/02/2014 Inactive acyclovir 400 mg tablet RxNorm: 560874 2 Tablet(s) PO QID 07/16/2014 07/25/2014 Inactive sertraline 100 mg tablet RxNorm: 416720 1 Tablet(s) PO BID 1 Tablet(s) PO BID 06/13/2014 12/09/2014 Inactive sertraline 100 mg tablet RxNorm: 366675 1 Tablet(s) PO BID 06/13/2014 06/12/2014 Inactive magnesium oxide 400 mg tablet RxNorm: 831219 1 Tablet(s) PO daily 05/25/2014 2014 Inactive ropinirole 1 mg tablet RxNorm: 572777 1 Tablet(s) PO QPM 05/25/2014 05/19/2015 Inactive amlodipine 5 mg tablet RxNorm: 636812 1 Tablet(s) PO BID 05/25/2014 05/19/2015 Inactive prednisone 10 mg tablets in a dose pack RxNorm: 472157 1 Tablet(s) PO UD 04/06/2014 04/10/2014 Inactive 6-5-4-3-2-1 Xanax 0.25 mg tablet RxNorm: 542906 1 Tablet(s) PO BID PRN as needed 04/04/2014 07/02/2014 Inactive [SAVINGS FOR UNINSURED PATIENTS -- BIN:107587, PCN: ASPROD1, Group: AME08, ID# [id number], Process claim through [employer], for questions: . THIS IS NOT INSURANCE.] prednisone 20 mg tablet RxNorm: 315641 3 Tablet(s) PO daily 04/02/2014 04/05/2014 Inactive [SAVINGS FOR UNINSURED PATIENTS -- BIN:865457, PCN: ASPROD1, Group: AME08, ID# [id number], Process claim through [employer], for questions: . THIS IS NOT INSURANCE.] cefdinir 300 mg capsule RxNorm: 182906 1 Capsule(s) PO BID 04/02/2014 04/11/2014 Inactive [SAVINGS FOR UNINSURED PATIENTS -- BIN:251745, PCN: ASPROD1, Group: AME08, ID# [id number], Process claim through [employer], for questions: . THIS IS NOT INSURANCE.] Kenalog 40 mg/mL suspension for injection RxNorm: 5905802 Milliliter(s) Inj 04/02/2014 04/02/2014 Inactive [SAVINGS FOR UNINSURED PATIENTS -- BIN:056033, PCN: ASPROD1, Group: AME08, ID# [id number], Process claim through [employer]Imp[employer], for questions: . THIS IS NOT INSURANCE.] ceftriaxone 500 mg solution for injection RxNorm: 853190 Inj 04/02/2014 04/02/2014 Inactive [SAVINGS FOR UNINSURED PATIENTS -- BIN:315078, PCN: ASPROD1, Group: AME08, ID# [id number], Process claim through [employer], for questions: . THIS IS NOT INSURANCE.] albuterol sulfate 2.5 mg/0.5 mL solution for nebulization RxNorm: 069748 1 treatment INH QID and as needed for dyspnea 04/02/2014 05/31/2014 Inactive [SAVINGS FOR UNINSURED PATIENTS -- BIN:683268, PCN: ASPROD1, Group: AME08, ID# [id number], Process claim through [employer], for questions: . THIS IS NOT INSURANCE.] azithromycin 500 mg tablet RxNorm: 644377 1 Tablet(s) PO daily 04/02/2014 04/06/2014 Inactive [SAVINGS FOR UNINSURED PATIENTS -- BIN:639459, PCN: ASPROD1, Group: AME08, ID# [id number], Process claim through [employer], for questions: . THIS IS NOT INSURANCE.] omeprazole 20 mg capsule,delayed release RxNorm: 318489 1 Tablet(s) PO daily 1 Capsule(s) PO daily 02/26/2014 06/25/2014 Inactive Xanax 0.25 mg tablet RxNorm: 720930 1 Tablet(s) PO BID PRN as needed 02/01/2014 04/03/2014 Inactive [SAVINGS FOR UNINSURED PATIENTS -- BIN:600900, PCN: ASPROD1, Group: AME08, ID# [id number], Process claim through [employer], for questions: . THIS IS NOT INSURANCE.] Xanax 0.25 mg tablet RxNorm: 668059 1 Tablet(s) PO HS PRN as needed 01/04/2014 01/31/2014 Inactive [SAVINGS FOR UNINSURED PATIENTS -- BIN:809500, PCN: ASPROD1, Group: AME08, ID# [id number], Process claim through [employer]Imp[employer], for questions: . THIS IS NOT INSURANCE.] pravastatin 10 mg tablet RxNorm: 274488 1 Tablet(s) PO QHS 12/21/2013 12/20/2013 Inactive pravastatin 10 mg tablet RxNorm: 944201 1 Tablet(s) PO QHS 12/21/2013 07/18/2014 Inactive [SAVINGS FOR UNINSURED PATIENTS -- BIN:553670, PCN: ASPROD1, Group: AME08, ID# [id number], Process claim through [employer], for questions: . THIS IS NOT INSURANCE.] Hytrin 1 mg tablet RxNorm: 959150 1 Tablet(s) PO BID 12/21/2013 04/08/2015 Inactive [SAVINGS FOR UNINSURED PATIENTS -- BIN:847342, PCN: ASPROD1, Group: AME08, ID# [id number], Process claim through [employer], for questions: . THIS IS NOT INSURANCE.] Hytrin 1 mg tablet RxNorm: 993278 1 Tablet(s) PO daily 12/18/2013 12/20/2013 Inactive [SAVINGS FOR UNINSURED PATIENTS -- BIN:200560, PCN: ASPROD1, Group: AME08, ID# [id number], Process claim through [employer]Imp[employer], for questions: . THIS IS NOT INSURANCE.] sertraline 100 mg tablet RxNorm: 583844 1 Tablet(s) PO QHS 12/14/2013 12/08/2014 Inactive [SAVINGS FOR UNINSURED PATIENTS -- BIN:961606, PCN: ASPROD1, Group: AME08, ID# [id number], Process claim through [employer], for questions: . THIS IS NOT INSURANCE.] Xanax 0.25 mg tablet RxNorm: 399819 1 Tablet(s) PO HS PRN as needed 12/13/2013 01/03/2014 Inactive [SAVINGS FOR UNINSURED PATIENTS -- BIN:058471, PCN: ASPROD1, Group: AME08, ID# [id number], Process claim through [employer], for questions: . THIS IS NOT INSURANCE.] tramadol 50 mg tablet RxNorm: 808564 2 Tablet(s) PO BID 11/08/2013 04/24/2015 Inactive Xanax 0.25 mg tablet RxNorm: 654337 1 Tablet(s) PO HS PRN as needed 10/19/2013 10/18/2013 Inactive Xanax 0.25 mg tablet RxNorm: 408164 1 Tablet(s) PO HS PRN as needed 10/19/2013 12/12/2013 Inactive Carafate 1 gram tablet RxNorm: 813718 Tablet(s) PO dissolve 1 tab QID x 1 week, then TID x 1 week, then BID x 1 week 09/07/2013 02/26/2015 Inactive omeprazole 20 mg capsule,delayed release RxNorm: 035769 1 Capsule(s) PO daily 09/07/2013 09/06/2013 Inactive omeprazole 20 mg capsule,delayed release RxNorm: 404914 1 Capsule(s) PO daily 09/07/2013 02/26/2014 Inactive prednisone 10 mg tablet RxNorm: 925449 1 Tablet(s) PO 08/25/2013 12/13/2013 Inactive prednisone taper Zithromax Z-Bon 250 mg tablet RxNorm: 458219 Tablet(s) PO as directed 08/25/2013 12/13/2013 Inactive Zithromax Z-Bon 250 mg tablet RxNorm: 821033 Tablet(s) PO as directed 08/04/2013 08/24/2013 Inactive Xanax 0.25 mg tablet RxNorm: 094664 1 Tablet(s) PO HS PRN 08/01/2013 10/18/2013 Inactive Kenalog 40 mg/mL suspension for injection RxNorm: 9634007 Milliliter(s) Inj 08/01/2013 08/01/2013 Inactive tramadol 50 mg tablet RxNorm: 304923 2 Tablet(s) PO BID 05/02/2013 11/07/2013 Inactive carvedilol 25 mg tablet RxNorm: 999978 1 Tablet(s) PO BID 05/02/2013 12/13/2013 Inactive magnesium oxide 400 mg tablet RxNorm: 254927 1 Tablet(s) PO daily 05/02/2013 04/26/2014 Inactive furosemide 20 mg tablet RxNorm: 521429 2 Tablet(s) PO daily 05/02/2013 2014 Inactive amlodipine 5 mg tablet RxNorm: 734429 1 Tablet(s) PO BID 05/02/2013 04/26/2014 Inactive sertraline 100 mg tablet RxNorm: 041830 1 Tablet(s) PO BID 05/02/2013 12/13/2013 Inactive ropinirole 1 mg tablet RxNorm: 684466 1 Tablet(s) PO QPM 05/02/2013 04/26/2014 Inactive pantoprazole 40 mg tablet,delayed release RxNorm: 953575 1 Tablet(s) PO daily 05/02/2013 2014 Inactive gabapentin 600 mg tablet RxNorm: 134399 1 Tablet(s) PO BID 05/02/2013 2014 Inactive aspirin 81 mg tablet,delayed release RxNorm: 958078 1 Tablet(s) PO daily No Start Date Active ferrous fumarate 325 mg (106 mg iron) tablet RxNorm: 371781 1 Tablet(s) PO daily No Start Date 2014 Inactive amlodipine 5 mg tablet RxNorm: 207900 1 Tablet(s) PO BID No Start Date 05/01/2013 Inactive Vitamin B-12 2,500 mcg sublingual tablet RxNorm: 640848 1 Tablet(s) SL daily No Start Date 2014 Inactive Zithromax Z-Bon 250 mg tablet RxNorm: 038536 Tablet(s) PO as directed No Start Date 08/03/2013 Inactive sertraline 100 mg tablet RxNorm: 374396 1 Tablet(s) PO BID No Start Date 05/01/2013 Inactive Hytrin 1 mg tablet RxNorm: 625041 1 Tablet(s) PO BID No Start Date 12/17/2013 Inactive potassium chloride ER 10 mEq capsule,extended release RxNorm: 330217 1 Capsule(s) PO QDAY PRN No Start Date 06/17/2016 Inactive Xanax 0.25 mg tablet RxNorm: 956889 1 Tablet(s) PO HS PRN No Start Date 07/31/2013 Inactive gabapentin 600 mg tablet RxNorm: 164896 1 Tablet(s) PO BID No Start Date 05/01/2013 Inactive ropinirole 1 mg tablet RxNorm: 352494 1 Tablet(s) PO QPM No Start Date 05/01/2013 Inactive Vitamin D3 1,000 unit tablet RxNorm: 204200 2 Tablet(s) PO daily No Start Date 09/11/2015 Inactive furosemide 20 mg tablet RxNorm: 254563 1 Tablet(s) PO BID No Start Date 05/01/2013 Inactive tramadol 50 mg tablet RxNorm: 987426 2 Tablet(s) PO BID No Start Date 05/01/2013 Inactive Carafate 1 gram tablet RxNorm: 504535 Tablet(s) PO dissolve 1 tab QID x 1 week, then TID x 1 week, then BID x 1 week No Start Date 09/06/2013 Inactive pantoprazole 40 mg tablet,delayed release RxNorm: 979518 1 Tablet(s) PO daily No Start Date 05/01/2013 Inactive montelukast 10 mg tablet RxNorm: 900472 1 Tablet(s) PO QHS No Start Date 04/23/2016 Inactive magnesium oxide 400 mg tablet RxNorm: 177841 1 Tablet(s) PO daily No Start Date 05/01/2013 Inactive prednisone 10 mg tablet RxNorm: 953889 1 Tablet(s) PO No Start Date 08/24/2013 Inactive prednisone taper carvedilol 25 mg tablet RxNorm: 892270 1 Tablet(s) PO BID No Start Date 05/01/2013 Inactive baclofen 10 mg tablet RxNorm: 679197 2 Tablet(s) PO daily No Start Date 12/13/2013 Inactive Vitamin B Complex capsule RxNorm: 1 Capsule(s) PO daily No Start Date 2014 Inactive Medication Administered Medication Codes Instructions Start Date Status Kenalog 40 mg/mL suspension for injection RxNorm: 9564582 Milliliter 09/15/2016 No longer Active Kenalog 40 mg/mL suspension for injection RxNorm: 2623061 Milliliter 04/02/2014 No longer Active ceftriaxone 500 mg solution for injection RxNorm: 398853 04/02/2014 No longer Active Kenalog 40 mg/mL suspension for injection RxNorm: 3815444 Milliliter 08/01/2013 No longer Active Immunizations Vaccine [...] Code Item Item Code Result Date Mayda 871744 MAYDA (MORTEZA) SCREEN NONE DETECTED 06/25/2017 Ra Factor [id number] RA FACTOR <10 IU/ml 06/24/2017 D-Dimer D-DIMER [...] 28.6 pg 06/01/2017 Cbc With Differential Ord2 [place]% 5.8 % 06/01/2017 Cbc With Differential Ord2 [...] 2.17 K/ul 06/01/2017 Cbc With Differential Ord2 [place] ABS# 0.3 K/ul 06/01/2017 Cbc With Differential Ord2 Eos ABS# 0.1 K/ul 06/01/2017 Cbc With Differential Ord2 Baso ABS# 0.1 K/ul 06/01/2017 Comp Metabolic Liy319 NA 137 mEq/L 06/01/2017 Comp Metabolic Bkc465 K 3.7 mEq/L 06/01/2017 Comp Metabolic Zji334 CL 100 mEq/L 06/01/2017 Comp Metabolic Xbc006 CO2 28.0 mEq/L 06/01/2017 Comp Metabolic Bjo282 ANION GAP 13 06/01/2017 Comp Metabolic Kvn291 GLUCOSE 94 mg/dL 06/01/2017 Comp Metabolic Xvl003 Creat 1.3 mg/dL 06/01/2017 Comp Metabolic Bhi653 eGFR 45 ml/min/1.73m2 06/01/2017 Comp Metabolic Djy809 BUN 12 mg/dL 06/01/2017 Comp Metabolic Vrg181 B/C Ratio 9.6 Ratio 06/01/2017 Comp Metabolic Kpw498 CALCIUM 9.5 mg/dL 06/01/2017 Comp Metabolic Lqy584 ALK PHOS 77 U/L 06/01/2017 Comp Metabolic Oqe328 AST(SGOT) 17 U/L 06/01/2017 Comp Metabolic Qtm463 ALT(SGPT) 15 U/L 06/01/2017 Comp Metabolic Mbo439 BILI T 0.5 mg/dL 06/01/2017 Comp Metabolic Lsd175 ALBUMIN 4.4 g/dL 06/01/2017 Comp Metabolic Zkg952 TPRO 7.0 g/dL 06/01/2017 Comp Metabolic Rxh119 GLOB 2.6 g/dL 06/01/2017 Comp Metabolic Kzf564 A/G Ratio 1.7 Ratio 06/01/2017 Comp Metabolic Qyp113 Osmo 273 mOsmo 06/01/2017 Mayda [id number] MAYDA (MORTEZA) SCREEN NONE DETECTED 06/22/2016 C-Reactive Protein Qnt Crqnt CRP 0.3 mg/dl 06/19/2016 Sed Rate Ord21 ESR 11 mm/hr 06/19/2016 Ra Factor Afb546 RA FACTOR <10 IU/ml 06/19/2016 Sed Rate Ord21 ESR 14 mm/hr 02/25/2016 C-Reactive Protein Qnt Crqnt CRP 0.3 mg/dl 02/25/2016 Comp Metabolic Uoa197 NA 136 mEq/L 02/25/2016 Comp Metabolic Etz268 K 3.9 mEq/L 02/25/2016 Comp Metabolic Qto382 CL 103 mEq/L 02/25/2016 Comp Metabolic Sjr650 CO2 27.0 mEq/L 02/25/2016 Comp Metabolic Xdc408 ANION GAP 10 02/25/2016 Comp Metabolic Gxk118 GLUCOSE 82 mg/dL 02/25/2016 Comp Metabolic Kaf290 Creat 1.3 mg/dL 02/25/2016 Comp Metabolic Swo973 eGFR 45 ml/min/1.73m2 02/25/2016 Comp Metabolic Dat380 BUN 13 mg/dL 02/25/2016 Comp Metabolic Mvt806 B/C Ratio 10.3 Ratio 02/25/2016 Comp Metabolic Kcn429 CALCIUM 9.5 mg/dL 02/25/2016 Comp Metabolic Cgk669 ALK PHOS 70 U/L 02/25/2016 Comp Metabolic Vki846 AST(SGOT) 17 U/L 02/25/2016 Comp Metabolic Nzp326 ALT(SGPT) 13 U/L 02/25/2016 Comp Metabolic Qzn016 BILI T 0.4 mg/dL 02/25/2016 Comp Metabolic Gai616 ALBUMIN 4.2 g/dL 02/25/2016 Comp Metabolic Xxh697 TPRO 6.6 g/dL 02/25/2016 Comp Metabolic Lnm012 GLOB 2.4 g/dL 02/25/2016 Comp Metabolic Zrh865 A/G Ratio 1.7 Ratio 02/25/2016 Comp Metabolic Olv755 Osmo 271 mOsmo 02/25/2016 Cbc With Differential [...] 29.1 pg 02/25/2016 Cbc With Differential Ord2 [place]% 6.8 % 02/25/2016 Cbc With Differential Ord2 [...] 1.62 K/ul 02/25/2016 Cbc With Differential Ord2 [place] ABS# 0.4 K/ul 02/25/2016 Cbc With Differential Ord2 Eos ABS# 0.1 K/ul 02/25/2016 Cbc With Differential Ord2 Baso ABS# 0.0 K/ul 02/25/2016 Tsh Ord6 hTSH II 1.63 uIU/mL 02/25/2016 [place] Spotted Fever Igg/Igm 071930 [place] SPOTTED FEVER IGM EIA . 09/17/2015 [place] Spotted Fever Igg/Igm 198481 RMSF, IGM 0.27 index 09/17/2015 [place] Spotted Fever Igg/Igm 378298 [place] SPOTTED FEVER IGG EIA FLEX . 09/17/2015 [place] Spotted Fever Igg/Igm 288699 RMSF, IGG SCREEN-FLEX Negative 09/17/2015 Ehrlichia Chaffeensis Antibody Igm [id number] EHRLICHIA CHAFFEENSIS IGM < 1:16 09/16/2015 Ehrlichia [place]affeensis Antibody Igg [id number] EHRLICHIA CHAFFEENSIS IGG 1:256 09/16/2015 [place]ymes Disease Total Antibodies With Western Blot Reflex 369700 B. BURGDORFERI, IGG/IGM 0.10 LI 09/14/2015 Lymes Disease Total Antibodies With Western Blot Reflex [id number] 09/14/2015 Vitamin D 25 Oh Vxi0223 VITAMIN D, 25 HYDROXY 59.60 ng/mL 09/13/2015 Sed Rate Ord21 ESR 10 mm/hr 09/12/2015 Comp Metabolic Ddk042 NA 139 mEq/L 09/12/2015 Comp Metabolic Zzn865 K 3.8 mEq/L 09/12/2015 Comp Metabolic Cum353 CL 103 mEq/L 09/12/2015 Comp Metabolic Wef275 CO2 27.0 mEq/L 09/12/2015 Comp Metabolic Hyp645 ANION GAP 13 09/12/2015 Comp Metabolic Jtd842 GLUCOSE 91 mg/dL 09/12/2015 Comp Metabolic Zdw854 Creat 1.2 mg/dL 09/12/2015 Comp Metabolic Pwi741 eGFR 47 ml/min/1.73m2 09/12/2015 Comp Metabolic Pit762 BUN 20 mg/dL 09/12/2015 Comp Metabolic Ksw067 B/C Ratio 16.3 Ratio 09/12/2015 Comp Metabolic Neu167 CALCIUM 9.3 mg/dL 09/12/2015 Comp Metabolic Qsv144 ALK PHOS 55 U/L 09/12/2015 Comp Metabolic Tzy822 AST(SGOT) 19 U/L 09/12/2015 Comp Metabolic Xwj051 ALT(SGPT) 14 U/L 09/12/2015 Comp Metabolic Yck636 BILI T 0.6 mg/dL 09/12/2015 Comp Metabolic Irc049 ALBUMIN 4.3 g/dL 09/12/2015 Comp Metabolic Jdw495 TPRO 6.8 g/dL 09/12/2015 Comp Metabolic Wbh433 GLOB 2.5 g/dL 09/12/2015 Comp Metabolic Fhv988 A/G Ratio 1.8 Ratio 09/12/2015 Comp Metabolic Wko560 Osmo 280 mOsmo 09/12/2015 B12 Bfc839 B12 >1500.00 pg/ml 09/12/2015 Cbc With Differential [...] 28.9 pg 09/12/2015 Cbc With Differential Ord2 [place]% 5.9 % 09/12/2015 Cbc With Differential Ord2 [...] 1.33 K/ul 09/12/2015 Cbc With Differential Ord2 [place] ABS# 0.3 K/ul 09/12/2015 Cbc With Differential [...] Full Exam - General 1994 Neurologic coordination Mulltp-ijch-mohxxc testing - left: dysmetria 05/11/2017 None Full Exam - General 1994 Neurologic coordination Ynhntz-qwgt-juixpc testing - right: dysmetria 05/11/2017 None Full [...] Full Exam - General 1994 Neurologic coordination Wtqxfy-odcl-shiflv testing - left: dysmetria 04/20/2016 None Full Exam - General 1994 Neurologic coordination Pshexl-lywi-nlpqwk testing - right: dysmetria 04/20/2016 None Full [...] Full Exam - General 1994 Neurologic coordination Rcthqw-jbpr-rdlfgs testing - left: dysmetria 02/25/2016 None Full Exam - General 1994 Neurologic coordination Pjryks-qnph-finqje testing - right: dysmetria 02/25/2016 None Full [...] Full Exam - General 1994 Neurologic coordination Epgfnr-nurb-drldbj testing - left: dysmetria 01/28/2016 None Full Exam - General 1994 Neurologic coordination Kkxjij-zmsd-puojql testing - right: dysmetria 01/28/2016 None Full [...] palp - head/face Lesion: excoriation 07/16/2014 right confucianism, redness right eyelid Full Exam - Dermatology [...] Procedure Codes Date THER/PROPH/DIAG INJ SC/IM CPT-4: 18711 09/15/2016 TRIAMCINOLONE ACET INJ NOS CPT-4: J3301 09/15/2016 ADMIN INFLUENZA VIRUS VAC CPT-4: G0008 01/08/2016 ADMIN PNEUMOCOCCAL VACCINE SNOMED CT: 10470329 CPT-4: G0009 01/08/2016 PNEUMOCOCCAL VACC 13 RIVERA IM Formatting Model/CDA Sections, Assigned to/Aliya Muñoz SNOMED CT: 45578135 CPT-4: 91533Cfcnsbc 01/08/2016 FLU VACC 4 RIVERA 3 YRS PLUS IM SNOMED CT: 33201565 CPT-4: 69232 01/08/2016 THER/PROPH/DIAG INJ SC/IM CPT-4: 90951 04/02/2014 TRIAMCINOLONE ACET INJ NOS CPT-4: J3301 04/02/2014 ROCEPHIN, PER 250 MG CPT- 4: J0696 04/02/2014 TRIAMCINOLONE ACET INJ NOS CPT-4: J3301 08/01/2013 THER/PROPH/DIAG INJ SC/IM CPT-4: 54807 08/01/2013 Vital Signs Date Vital 01/25/2018 Blood Pressure 1: 130/68 Code: 8480-6 BMI: 34.4 Code: 64812-1 Heart Rate 1: 91 bpm Height: 5'5" SpO2: 95% Weight: 207 lbs 10/06/2017 Blood Pressure 1: 118/78 Code: 8480-6 BMI: 34.3 Code: 57826-1 Heart Rate 1: 75 bpm Height: 5'5" SpO2: 98% Weight: 206 lbs 09/27/2017 Blood Pressure 1: 136/88 Code: 8480-6 BMI: 35.4 Code: 52949-3 Heart Rate 1: 86 bpm Height: 5'5" SpO2: 98% Weight: 213 lbs 07/23/2017 Blood Pressure 1: 106/58 Code: 8480-6 BMI: 34.8 Code: 27982-5 Heart Rate 1: 70 bpm Height: 5'5" SpO2: 96% Weight: 209 lbs 06/01/2017 Blood Pressure 1: 150/96 Code: 8480-6 BMI: 34.4 Code: 20951-8 Heart Rate 1: 82 bpm Height: 5'5" SpO2: 99% Weight: 207 lbs 05/11/2017 Blood Pressure 1: 144/90 Code: 8480-6 BMI: 34.6 Code: 75712-2 Heart Rate 1: 76 bpm Height: 5'5" SpO2: 98% Weight: 208 lbs 10/30/2016 Blood Pressure 1: 172/104 Code: 8480-6 Blood Pressure 1: 158/98 Code: 8480-6 BMI: 34.7 Code: 95919-9 Heart Rate 1: 70 bpm Height: 5'5" SpO2: 97% Temperature: 36.2 (C) / 97.1 (F) Weight: 208 lbs 10 04/20/2016 Blood Pressure 1: 144/86 Code: 8480-6 BMI: 34.3 Code: 38985-8 Heart Rate 1: 68 bpm Height: 5'5" SpO2: 97% Weight: 206 lbs 02/25/2016 Blood Pressure 1: 122/82 Code: 8480-6 BMI: 34.4 Code: 84584-7 Heart Rate 1: 86 bpm Height: 5'5" SpO2: 94% Weight: 207 lbs 01/28/2016 Blood Pressure 1: 128/86 Code: 8480-6 BMI: 33.3 Code: 05014-2 Heart Rate 1: 86 bpm Height: 5'5" SpO2: 96% Weight: 200 lbs 11/14/2015 Blood Pressure 1: 140/90 Code: 8480-6 Blood Pressure 1: 138/88 Code: 8480-6 BMI: 33.3 Code: 47955-0 Heart Rate 1: 98 bpm Height: 5'5" SpO2: 97% Weight: 200 lbs 10/10/2015 Blood Pressure 1: 132/80 Code: 8480-6 BMI: 33.3 Code: 94501-4 Heart Rate 1: 74 bpm Height: 5'5" SpO2: 96% Weight: 200 lbs 09/12/2015 Blood Pressure 1: 148/90 Code: 8480-6 BMI: 32.9 Code: 08271-0 Heart Rate 1: 94 bpm Height: 5'5" SpO2: 97% Weight: 198 lbs 04/09/2015 Blood Pressure 1: 160/82 Code: 8480-6 Blood Pressure 1: 130/84 Code: 8480-6 BMI: 32.4 Code: 29438-6 Heart Rate 1: 74 bpm Height: 5'5" SpO2: 95% Weight: 195 lbs 10/05/2014 Blood Pressure 1: 140/80 Code: 8480-6 BMI: 30.5 Code: 94997-2 Heart Rate 1: 79 bpm Height: 5'5" SpO2: 98% Weight: 183 lbs 09/07/2014 Blood Pressure 1: 142/96 Code: 8480-6 BMI: 32.1 Code: 72001-8 Heart Rate 1: 72 bpm Height: 5'5" SpO2: 98% Temperature: 36.5 (C) / 97.7 (F) Weight: 193 lbs 07/16/2014 Blood Pressure 1: 138/82 Code: 8480-6 BMI: 31.8 Code: 06843-7 Heart Rate 1: 76 bpm Height: 5'5" Weight: 191 lbs 04/02/2014 Blood Pressure 1: 148/90 Code: 8480-6 BMI: 33.8 Code: 89874-5 Heart Rate 1: 68 bpm Height: 5'5" Temperature: 36.9 (C) / 98.4 (F) Weight: 203 lbs 12/14/2013 Blood Pressure 1: 140/88 Code: 8480-6 BMI: 35.3 Code: 35413-8 Heart Rate 1: 91 bpm Height: 5'5" SpO2: 97% Weight: 212 lbs 08/01/2013 Blood Pressure 1: 126/68 Code: 8480-6 BMI: 35.1 Code: 48498-1 Heart Rate 1: 76 bpm Height: 5'5" Temperature: 36.7 (C) / 98.1 (F) Weight: 211 lbs 05/02/2013 Blood Pressure 1: 118/86 Code: 8480-6 BMI: 34.9 Code: 25550-9 Heart Rate 1: 76 bpm Height: 5'5" Weight: 209 lbs 8 oz 04/18/2013 Blood Pressure 1: 118/60 Code: 8480-6 BMI: 35.3 Code: 12487-3 Heart Rate 1: 68 bpm Height: 5'5" [...] data Encounters Encounter Performer Location Codes Date ([id number]) 35745 EST. PATIENT, LEVEL III Diagnosis: Essential (primary) hypertension[ICD10: I10] [facility] CPT-4: 86771 01/25/2018 ([id number]) 72838 EST. 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 PATIENT, LEVEL IV Diagnosis: Essential (primary) hypertension[ICD10: I10] Diagnosis: Localized edema[ICD10: R60.0] Marilyn Lao MD, [facility] CPT-4: 00539 09/27/2017 ([id number]) 22322 EST. PATIENT, LEVEL IV Diagnosis: Generalized anxiety disorder[ICD10: F41.1] Diagnosis: Essential (primary) hypertension[ICD10: I10] Diagnosis: Chronic pain syndrome[ICD10: G89.4] Noa Lao MD, [facility] CPT-4: 48109 07/23/2017 ([id number]) 39022 EST. PATIENT, LEVEL IV Diagnosis: Essential (primary) hypertension[ICD10: I10] Diagnosis: Chest pain, unspecified[ICD10: R07.9] Diagnosis: Chronic kidney disease, stage 3 (moderate)[ICD10: N18.3] Noa Lao MD, [facility] CPT-4: 31607 06/01/2017 02900 EST. PATIENT, LEVEL IV Diagnosis: Gastro-esophageal reflux disease without esophagitis[ICD10: K21.9] Anais Lao MD, [facility] CPT-4: 64693 05/11/2017 ([id number]) 79155 EST. PATIENT, LEVEL III Diagnosis: Essential (primary) hypertension[ICD10: I10] Diagnosis: Contusion of right lower leg, initial encounter[ICD10: S80.11XA] Noa Lao MD, [facility] CPT-4: 00397 10/30/2016 ([id number]) 71745 EST. PATIENT, LEVEL IV Diagnosis: Essential (primary) hypertension[ICD10: I10] Diagnosis: Generalized anxiety disorder[ICD10: F41.1] Marilyn Lao MD, [facility] CPT-4: 42431 04/20/2016 ([id number]) 10424 EST. PATIENT, LEVEL IV Diagnosis: Essential (primary) hypertension[ICD10: I10] Diagnosis: Chronic kidney disease, stage 3 (moderate)[ICD10: N18.3] Diagnosis: Generalized anxiety disorder[ICD10: F41.1] Diagnosis: Major depressive disorder, recurrent, moderate[ICD10: F33.1] Diagnosis: Shortness of breath[ICD10: R06.02] Noa Lao MD, [facility] CPT- 4: 37394 02/25/2016 [id number]) 91597 EST. PATIENT, LEVEL IV Diagnosis: Generalized anxiety disorder[ICD10: F41.1] Diagnosis: Major depressive disorder, recurrent, moderate[ICD10: F33.1] Diagnosis: Essential (primary) hypertension[ICD10: I10] Diagnosis: Restless legs syndrome[ICD10: G25.81] Diagnosis: Myalgia[ICD10: M79.1] Noa Lao MD, [facility] CPT-4: 67143 01/28/2016 ([id number]) 37290 EST. PATIENT, LEVEL III Diagnosis: Essential (primary) hypertension[ICD10: I10] Diagnosis: Insomnia, unspecified[ICD10: G47.00] Noa Lao MD, [facility] CPT-4: 30866 11/14/2015 [id number]) 11215 EST. 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 PATIENT, LEVEL IV Diagnosis: Bitten or stung by nonvenomous insect and other nonvenomous arthropods, initial encounter[ICD10: W57.XXXA] Diagnosis: Other fatigue[ICD10: R53.83] Diagnosis: Vitamin D deficiency, unspecified[ICD10: E55.9] Diagnosis: Other vitamin B12 deficiency anemias[ICD10: D51.8] Diagnosis: Essential (primary) hypertension[ICD10: I10] Diagnosis: Iron deficiency[ICD10: E61.1] Noa Lao MD, [facility] CPT-4: 55746 09/12/2015 ([id number]) 15381 EST. PATIENT, LEVEL III Diagnosis: Essential (primary) hypertension[ICD10: I10] Diagnosis: Chronic kidney disease, stage 3 (moderate)[ICD10: N18.3] Noa Lao MD, [facility] CPT-4: 68550 04/09/2015 ([id number]) 99856 EST. PATIENT, LEVEL III Diagnosis: ESSENTIAL HYPERTENSION[ICD9: 401.9] Noa Lao MD, [facility] CPT-4: 30065 10/05/2014 ([id number]) 53076 EST. PATIENT, LEVEL IV Diagnosis: Easy bruising[ICD9: 782.9] Diagnosis: Iron deficiency anemia[ICD9: 280.9] Diagnosis: ESSENTIAL HYPERTENSION[ICD9: 401.9] Diagnosis: Chronic kidney disease, stage 3[ICD9: 585.3] Noa Lao MD, [facility] CPT-4: 06246 09/07/2014 ([id number]) 08175 EST. PATIENT, LEVEL III Diagnosis: Shingles[ICD9: 053.9] Marilyn Lao MD, [facility] CPT-4: 11213 07/16/2014 ([id number]) 08501 EST. PATIENT, LEVEL III Diagnosis: PNEUMONIA (CAP)[ICD9: 486] Diagnosis: COUGH[ICD9: 786.2] Marilyn Lao MD, [facility] CPT-4: 28436 04/02/2014 ([id number]) 11411 EST. PATIENT, LEVEL III Diagnosis: ESSENTIAL HYPERTENSION[ICD9: 401.9] Diagnosis: Rib pain on left side[ICD9: 786.50] Diagnosis: EDEMA[ICD9: 782.3] Noa Lao MD, [facility] CPT-4: 84491 12/14/2013 ([id number]) 44508 EST. PATIENT, LEVEL IV Diagnosis: ESOPHAGEAL REFLUX[ICD9: 530.81] Diagnosis: Urge incontinence[ICD9: 788.31] Diagnosis: Elbow pain, right[ICD9: 719.42] Diagnosis: Snoring[ICD9: 786.09] [facility] CPT-4: 24330 08/01/2013 ([id number] 72466 EST. PATIENT, LEVEL IV Diagnosis: ESSENTIAL HYPERTENSION[SNOMED: 04173503] Diagnosis: EDEMA[ICD9: 782.3] Diagnosis: Chronic renal insufficiency, stage III (moderate)[ICD9: 585.3] Diagnosis: HYPERLIPIDEMIA[ICD9: 272.4] Marilyn Lao MD, [facility] CPT-4: 14934 05/02/2013 ([id number] 63247 EST. PATIENT, LEVEL IV Diagnosis: ESSENTIAL HYPERTENSION[SNOMED: 96877855] Diagnosis: Restless leg[ICD9: 333.94] Marilyn Lao MD, [facility] CPT-4: 33581 04/18/2013 Plan of Care Planned Activity Notes Codes Status Date Visit Plan: Hypertension - well controlled - continue with current medications, continue with no added salt diet. Pt has been encouraged to exercise daily. The pt has been advised to call the office if there are any acute concerns about change in blood pressure readings at home. 01/25/2018 Appointment: Marilyn Lao WPtel: [address] [place], [place] [phone] (15 min) Moderate 01/25/2018 Patient Education: Patient Medication Summary Completed 01/25/2018 Appointment: Marilyn Lao WPtel: [address] [place], [place] [phone] (15 min) Moderate 01/06/2018 Patient Education: Patient Medication Summary Completed 10/26/2017 Care Plan: Comp Metabolic Cancelled 10/26/2017 Visit Plan: Tinea/Onychodystrophy - penlac prescribed, pt did not want to take medication by mouth for treatment. Edema - improved - continue current regimen. 10/06/2017 Appointment: Marilyn Lao WPtel: [address] [place], [place] [phone] (15 min) Moderate 10/06/2017 Patient Education: Patient [...] at home. 09/27/2017 Appointment: Marilyn Lao WPtel: [facility] [place] (15 min) Moderate 09/27/2017 Patient [...] pain-recommend massage 07/23/2017 Appointment: Noa Orlando WPtel: [phone] [phone] [place] (15 min) Moderate 07/23/2017 Patient Education: [...] breath worsens 06/01/2017 Appointment: Noa Orlando WPtel: [phone] [phone] (30 min) Complex 06/01/2017 Patient Education: Patient Medication Summary Completed 06/01/2017 Care Plan: Referral Order SNOMED-CT : [id number] Pending 06/01/2017 Visit Plan: Esophageal Reflux - the patient has been counseled against excessive intake of caffeine, spicy foods, peppermint, and cinnamon - all of which can exacerbate esophageal reflux. The patient is to take med ications as prescribed and call the office if the symptoms are not improving. 05/11/2017 Appointment: Anais Arrieta WPtel: [facility] (15 min) Moderate 05/11/2017 Patient Education: [...] Summary Completed 09/15/2016 Appointment: Marilyn Lao WPtel: [facility] (15 min) Moderate 08/19/2016 Patient Education: [...] current medications. 04/20/2016 Appointment: [facility]Ptel[facility] ([facility] min) Complex 04/20/2016 Patient Education: Patient Medication Summary Completed 04/20/2016 Patient Education: Obesity Completed 04/20/2016 Patient Education: Hypertension Completed 04/20/2016 Appointment: Noa Orlando WPtel: [phone] [phone] (30 min) Complex 03/16/2016 Referral: Ta [...] for follow up. Chronic renal disease-check labs Rfypiim-etbriaragc-japuelmj with cymbalta-continue same dose for now -may take xanax TID PRN Multiple joint pain-check labs including inflammatory markers 02/25/2016 Appointment: Noa Orlando WPtel: [phone] (30 min) Complex 02/25/2016 Patient Education: Patient Medication Summary Completed 02/25/2016 Patient Education: Obesity Completed 02/25/2016 Patient Education: Hypertension Completed 02/25/2016 Care Plan: Referral Order SNOMED-CT : 686274022 Pending 02/25/2016 Visit Plan: Anxiety/Depression - the [...] in blood pressure readings at home. Restless hqe-zohmmo-vaawbzol requip to twice daily-monitor symptoms Myalgias-stop pravastatin 01/28/2016 Appointment: Noa Orlando WPtel: [phone] [phone] (30 min) Complex 01/28/2016 Patient Education: [...] Hypertension Completed 10/10/2015 Appointment: Marilyn Lao WPtel: [facility] (15 min) Moderate 10/08/2015 Visit Plan: Hypertension - well controlled - continue with current medications, continue with no added salt diet. Pt has been encouraged to exercise daily. The pt has been advised to call the office if there are any acute concerns about change in blood pressure readings at home. Iron deficiency- B12 deficiency-check labs Tick rbej-rvwhbuv-wpxrh tick panel 09/12/2015 Appointment: Noa Orlando WPtel: [phone] [phone] (15 min) Moderate 09/12/2015 Patient Education: [...] symptoms Iron deficiency anemia-stopped oral iron per soaping machine back tender in March-recheck labs HTN-elevated today-monitor twice [...] Care Plan: COMPLETE CBC AUTOMATED LOINC : 53033-4 Ordered 09/07/2014 Visit Plan: Shingles - Herpes [...] Summary Completed 07/16/2014 Appointment: Marilyn Lao WPtel: [facility] Follow up 04/16/2014 Appointment: Sick 04/03/2014 Visit Plan: Pneumonia - Pt has been diagnosed with pneumonia by physical exam. Antibiotics started. The pt is aware of the diagnosis and the need for acute treatment of this illness. 04/02/2014 Patient Education: Patient Medication Summary Completed 04/02/2014 Appointment: Marilyn Lao WPtel: [address] [place], [place] [phone] Sick 12/27/2013 Patient Education: Patient Medication Summary [...] further attempt to reduce peripheral edema. Night gyyzcf-ifhflqj-fxoan labs 12/14/2013 Appointment: Follow up 12/14/2013 Patient Education: Patient Medication Summary Completed 12/14/2013 Patient Education: Hypertension Completed 12/14/2013 Appointment: Noa Orlando WPtel: [phone] Sick 12/01/2013 Appointment: Marilyn Lao WPtel: [address] [place], [place] [phone] Sick 11/30/2013 Visit Plan: Allergies - chronic [...] monitor symptoms. 08/01/2013 App[facility]ment: [phone] [facility] Follow up 08/01/2013 Patient Education: Patient [...] able. 05/02/2013 App[facility]ment: [phone] [facility] Follow up 05/02/2013 Patient Education: Patient [...] juice. 04/18/2013 App[facility]ment: [facility] [phone] [facility] New Patient 04/18/2013 Patient Education: Patient Medication Summary Completed 04/18/2013 Patient Education: Hypertension Completed 04/18/2013 Referral: Ta Santacruz Referral Appointment Requested Referral: Ta Santacruz Referral Appointment Requested Instructions Comment . Hypertension - well controlled - continue [...] symptoms Iron deficiency anemia-stopped oral iron per soaping machine back tender in March-recheck labs HTN-elevated today-monitor twice [...] at home. Iron deficiency-B12 deficiency-check labs Tick osuh-kbesykm-nnenn tick panel . Hypertension - well controlled [...] for follow up. Chronic renal disease-check labs Idmzhui-nlvrqikpni-teqtlplx with cymbalta-continue same dose for now -may [...] in blood pressure readings at home. Restless cmv-aeqbxb-gmfoczff requip to twice daily-monitor symptoms Myalgias-stop pravastatin doxycycline 100mg twice daily x 2 weeks [...] further attempt to reduce peripheral edema. Night lmoqes-wysqkbo-oabro labs
--- OUTSIDE RECORDS SUMMARY | 2018-11-04 16:07 | XMS REPORT | CCD ---
Author Author Marilyn Lao Organization Marilyn Lao MD, [facility] Address [address] [place] [address] Phone Care Team Providers Care Correctional Treatment Specialist Name Role Phone PP Unavailable CCM Unavailable Summary Purpose Interface Exchange Insurance Providers Payer name Policy type / Coverage type Covered constitution party ID Effective Begin Date Effective End Date WPS Medicare Part B Medicare Part B [id number] Unknown [employer] and Life Medicare Part B [id number] Unknown Family history Mother Diagnosis Age At [...] Description Effective Dates Tobacco history SNOMED CT: 525962426 Never smoker but had significant smoke exposure during first marriage, [place]. 08/01/2013 Employment Unknown Retired doing as needed working for the [employer]. 05/02/2013 Marital status Unknown 04/18/[address]: 753282398 Never drinks alcohol 04/18/2013 Has the patient [...] Start Date Stop Date Status Fill Instructions losartan 100 mg tablet RxNorm: 567556 1 Tablet(s) PO daily 05/04/2018 01/28/2019 Active tramadol 50 mg tablet RxNorm: 047666 2 Tablet(s) PO BID 04/26/2018 06/24/2018 Active alprazolam 0.5 mg tablet RxNorm: 236218 1/2-1 Tablet(s) PO TID PRN as needed 04/04/2018 06/01/2018 Active Xanax 0.5 mg tablet RxNorm: 704533 1 Tablet(s) PO TID PRN as needed 04/04/2018 07/31/2018 Active tramadol 50 mg tablet RxNorm: 432380 2 Tablet(s) PO BID 12/01/2017 01/29/2018 Inactive Cymbalta 60 mg capsule,delayed release RxNorm: 587409 TAKE ONE CAPSULE BY MOUTH DAILY 11/10/2017 11/04/2018 Active furosemide 40 mg tablet RxNorm: 777421 1 Tablet(s) PO daily 10/26/2017 10/20/2018 Active alprazolam 0.5 mg tablet RxNorm: 179419 1/2-1 Tablet(s) PO TID PRN as needed 10/12/2017 12/10/2017 Inactive Ciclodan 8 % topical solution RxNorm: 8733928 1 Application TOP daily x 7 days, clean off with alcohol then restart cycle of application until fungal infection is completely cleared 10/06/2017 01/03/2018 Inactive omeprazole 20 mg capsule,delayed release RxNorm: 704032 TAKE ONE CAPSULE BY MOUTH DAILY 10/04/2017 01/24/2018 Inactive losartan 100 mg tablet RxNorm: 205253 1 Tablet(s) PO daily 09/27/2017 03/24/2018 Inactive Xanax 0.25 mg tablet RxNorm: 650532 1 Tablet(s) PO TID PRN as needed 08/13/2017 10/11/2017 Inactive Xanax 0.5 mg tablet RxNorm: 508858 1 Tablet(s) PO TID PRN as needed 07/23/2017 11/18/2017 Inactive ropinirole 1 mg tablet RxNorm: 276049 TAKE TWO TABLETS BY MOUTH EVERY NIGHT AT BEDTIME 06/28/2017 06/22/2018 Active montelukast 10 mg tablet RxNorm: 354960 TAKE ONE TABLET BY MOUTH EVERY NIGHT AT BEDTIME 06/28/2017 06/22/2018 Active furosemide 20 mg tablet RxNorm: 280684 TAKE TWO TABLETS BY MOUTH DAILY FOR 7 DAYS THEN TAKE ONE TABLET BY MOUTH DAILY 06/28/2017 10/01/2017 Inactive losartan 50 mg tablet RxNorm: 746941 1 Tablet(s) PO daily 06/01/2017 09/26/2017 Inactive labetalol 100 mg tablet RxNorm: 706534 TAKE ONE TABLET BY MOUTH TWICE A DAY 05/26/2017 05/30/2017 Inactive labetalol 100 mg tablet RxNorm: 278434 1 Tablet(s) PO BID 05/26/2017 05/20/2018 Active Protonix 40 mg tablet,delayed release RxNorm: 125355 1 Tablet(s) PO daily 05/26/2017 05/20/2018 Active amlodipine 5 mg tablet RxNorm: 095257 TAKE ONE TABLET BY MOUTH TWICE A DAY 05/26/2017 09/26/2017 Inactive Carafate 1 gram tablet RxNorm: 508304 1 Tablet(s) PO QID 05/11/2017 09/07/2017 Inactive Protonix 40 mg tablet,delayed release RxNorm: 655765 1 Tablet(s) PO daily 05/11/2017 05/25/2017 Inactive Cymbalta 60 mg capsule,delayed release RxNorm: 106411 TAKE ONE CAPSULE BY MOUTH DAILY 05/05/2017 10/31/2017 Inactive Xanax 0.25 mg tablet RxNorm: 823003 1 Tablet(s) PO TID PRN as needed 02/09/2017 06/07/2017 Inactive Cymbalta 60 mg capsule,delayed release RxNorm: 540052 TAKE ONE CAPSULE BY MOUTH DAILY 10/28/2016 04/25/2017 Inactive Xanax 0.25 mg tablet RxNorm: 013601 1 Tablet(s) PO TID PRN as needed 10/08/2016 12/06/2016 Inactive NEED TO GIVE #90 WITH NEXT REFILL Kenalog 40 mg/mL suspension for injection RxNorm: 2898672 Milliliter(s) Inj 09/15/2016 09/15/2016 Inactive tramadol 50 mg tablet RxNorm: 977956 Tablet(s) TAKE 2 TABLETS BY MOUTH TWICE DAILY 08/18/2016 02/12/2017 Inactive Generic For:ULTRAM 50 MG TABLET N O T I C E Last quantity doesn't match original quantity(Response to an electronic controlled substance refill request - RxReferenceNumber: [id number]) potassium chloride ER 10 mEq capsule,extended release RxNorm: 555653 TAKE ONE CAPSULE BY MOUTH DAILY NEEDED 08/03/2016 01/29/2017 Inactive potassium chloride ER 10 mEq capsule,extended release RxNorm: 812260 1 Capsule(s) PO QDAY PRN 06/18/2016 08/02/2016 Inactive furosemide 20 mg tablet RxNorm: 461569 1 Tablet(s) PO daily as needed for swelling 06/18/2016 06/12/2017 Inactive 2 daily x 1 week then daily Carafate 1 gram tablet RxNorm: 750803 1 Tablet(s) PO daily 04/24/2016 04/18/2017 Inactive Cymbalta 60 mg capsule,delayed release RxNorm: 302247 1 Capsule(s) PO daily 04/24/2016 10/20/2016 Inactive montelukast 10 mg tablet RxNorm: 644007 1 Tablet(s) PO QHS 04/24/2016 04/18/2017 Inactive omeprazole 20 mg capsule,delayed release RxNorm: 215888 Capsule(s) 1 Capsule(s) PO daily 04/24/2016 05/31/2017 Inactive ropinirole 1 mg tablet RxNorm: 409193 2 Tablet(s) PO QHS 04/24/2016 04/18/2017 Inactive furosemide 20 mg tablet RxNorm: 680152 1 Tablet(s) PO daily as needed for swelling 04/24/2016 06/17/2016 Inactive labetalol 100 mg tablet RxNorm: 820746 1 Tablet(s) PO BID 04/24/2016 04/18/2017 Inactive amlodipine 5 mg tablet RxNorm: 907821 Tablet(s) TAKE 1 TABLET BY MOUTH TWICE DAILY 04/24/2016 04/18/2017 Inactive Transferring from [facility] Xanax 0.25 mg tablet RxNorm: 919147 1 Tablet(s) PO TID PRN as needed 02/25/2016 03/25/2016 Inactive NEED TO GIVE #90 WITH NEXT REFILL Xanax 0.25 mg tablet RxNorm: 584024 1 Tablet(s) PO BID PRN as needed 02/19/2016 02/24/2016 Inactive [SAVINGS FOR UNINSURED PATIENTS -- BIN:804870, PCN: ASPROD1, Group: [id number], ID# [id number], Process claim through [employer], for questions: . THIS IS NOT INSURANCE.] Cymbalta 60 mg capsule,delayed release RxNorm: 475525 1 Capsule(s) PO daily 01/28/2016 04/23/2016 Inactive ropinirole 1 mg tablet RxNorm: 395596 1 Tablet(s) PO BID TAKE 1 TABLET BY MOUTH DAILY EVERY NIGHT 01/28/2016 04/23/2016 Inactive Generic For:REQUIP 1 MG TABLET tramadol 50 mg tablet RxNorm: 390487 Tablet(s) TAKE 2 TABLETS BY MOUTH TWICE DAILY 01/16/2016 07/13/2016 Inactive Generic For:ULTRAM 50 MG TABLET N O T I C E Last quantity doesn't match original quantity(Response to an electronic controlled substance refill request - RxReferenceNumber: [id number]) omeprazole 20 mg capsule,delayed release RxNorm: 789835 1 Tablet(s) PO daily 1 Capsule(s) PO daily 12/11/2015 04/23/2016 Inactive pravastatin 10 mg tablet RxNorm: 448119 1 Tablet(s) PO QHS TAKE 1 TABLET BY MOUTH EVERY NIGHT 11/28/2015 01/27/2016 Inactive Generic For:PRAVACHOL 10 MG TABLET furosemide 20 mg tablet RxNorm: 536278 1 Tablet(s) PO daily as needed for swelling 11/12/2015 04/23/2016 Inactive pravastatin 10 mg tablet RxNorm: 819127 1 Tablet(s) PO QHS TAKE 1 TABLET BY MOUTH EVERY NIGHT 11/07/2015 11/27/2015 Inactive Generic For:PRAVACHOL 10 MG TABLET Xanax 0.25 mg tablet RxNorm: 306263 1 Tablet(s) PO BID PRN as needed 10/28/2015 01/25/2016 Inactive [SAVINGS FOR UNINSURED PATIENTS -- BIN:325469, PCN: ASPROD1, Group: AME08, ID# [id number], Process claim through [employer], for questions: . THIS IS NOT INSURANCE.] Viberzi 75 mg tablet RxNorm: 0033002 1 Tablet(s) PO BID 10/10/2015 10/10/2015 Inactive doxycycline hyclate 100 mg tablet RxNorm: 030524 1 Tablet(s) PO BID 10/10/2015 10/23/2015 Inactive Vitamins B Complex capsule RxNorm: 1 Capsule(s) PO daily 09/12/2015 No Stop Date Active Vitamin D3 1,000 unit tablet RxNorm: 454845 3-4 Tablet(s) PO daily 09/12/2015 No Stop Date Active Augmentin 500 mg-125 mg tablet RxNorm: 300191 1 Tablet(s) PO BID 07/09/2015 2015 Inactive probiotic one bid x 7 days Augmentin 500 mg-125 mg tablet RxNorm: 912236 1 Tablet(s) PO BID 07/09/2015 07/08/2015 Inactive Xanax 0.25 mg tablet RxNorm: 534289 1 Tablet(s) PO BID PRN as needed 07/01/2015 09/28/2015 Inactive [SAVINGS FOR UNINSURED PATIENTS -- BIN:297995, PCN: ASPROD1, Group: AME08, ID# [id number], Process claim through [employer], for questions: . THIS IS NOT INSURANCE.] sertraline 100 mg tablet RxNorm: 835448 TAKE 1 TABLET BY MOUTH TWICE DAILY 07/01/2015 01/27/2016 Inactive Generic For:*ZOLOFT 100MG TABLET N O T I C E Last quantity doesn't match original quantity amlodipine 5 mg tablet RxNorm: 549505 TAKE 1 TABLET BY MOUTH TWICE DAILY 06/26/2015 04/23/2016 Inactive Generic For:NORVASC 5 MG TABLET N O T I C E Last quantity doesn't match original quantity amlodipine 5 mg tablet RxNorm: 047911 Tablet(s) 1 Tablet(s) PO BID 06/25/2015 06/25/2015 Inactive ropinirole 1 mg tablet RxNorm: 637500 TAKE 1 TABLET BY MOUTH DAILY EVERY NIGHT 05/22/2015 01/27/2016 Inactive Generic For:REQUIP 1 MG TABLET ropinirole 1 mg tablet RxNorm: 058392 Tablet(s) 1 Tablet(s) PO QPM 05/22/2015 05/21/2015 Inactive pravastatin 10 mg tablet RxNorm: 045510 TAKE 1 TABLET BY MOUTH EVERY NIGHT 05/14/2015 11/06/2015 Inactive Generic For:PRAVACHOL 10 MG TABLET tramadol 50 mg tablet RxNorm: 171288 2 Tablet(s) PO BID 04/25/2015 01/18/2016 Inactive labetalol 100 mg tablet RxNorm: 894410 1 Tablet(s) PO BID 04/09/2015 04/23/2016 Inactive omeprazole 20 mg capsule,delayed release RxNorm: 830410 1 Tablet(s) PO daily 1 Capsule(s) PO daily 03/20/2015 12/10/2015 Inactive Carafate 1 gram tablet RxNorm: 158585 Tablet(s) PO UD 4 times daily x 1 week and then PRN 02/27/2015 02/21/2016 Inactive Xanax 0.25 mg tablet RxNorm: 722064 1 Tablet(s) PO BID PRN as needed 02/08/2015 06/06/2015 Inactive [SAVINGS FOR UNINSURED PATIENTS -- BIN:508296, PCN: ASPROD1, Group: AME08, ID# [id number], Process claim through [employer], for questions: . THIS IS NOT INSURANCE.] furosemide 20 mg tablet RxNorm: 742210 1 Tablet(s) PO daily as needed for swelling 10/25/2014 02/21/2015 Inactive ok to fill by Dr. Franklin 10-25-14 Xanax 0.25 mg tablet RxNorm: 409389 1 Tablet(s) PO BID PRN as needed 09/25/2014 01/21/2015 Inactive [SAVINGS FOR UNINSURED PATIENTS -- BIN:907604, PCN: ASPROD1, Group: AME08, ID# [id number], Process claim through [employer], for questions: . THIS IS NOT INSURANCE.] pravastatin 10 mg tablet RxNorm: 920598 TAKE 1 TABLET BY MOUTH EVERY NIGHT 09/06/2014 04/03/2015 Inactive Generic For:PRAVACHOL 10 MG TABLET tramadol 50 mg tablet RxNorm: 605651 TAKE 2 TABLETS BY MOUTH TWICE DAILY 08/02/2014 01/15/2016 Inactive Generic For:ULTRAM 50 MG TABLET N O T I C E Last quantity doesn't match original quantity(Response to an electronic controlled substance refill request - [facility] [id number]) tramadol 50 mg tablet RxNorm: 311947 2 Tablet(s) PO BID 08/01/2014 08/02/2014 Inactive acyclovir 400 mg tablet RxNorm: 679574 2 Tablet(s) PO QID 07/16/2014 07/25/2014 Inactive sertraline 100 mg tablet RxNorm: 131034 1 Tablet(s) PO BID 1 Tablet(s) PO BID 06/13/2014 12/09/2014 Inactive sertraline 100 mg tablet RxNorm: 575113 1 Tablet(s) PO BID 06/13/2014 06/12/2014 Inactive magnesium oxide 400 mg tablet RxNorm: 959709 1 Tablet(s) PO daily 05/25/2014 2014 Inactive ropinirole 1 mg tablet RxNorm: 558549 1 Tablet(s) PO QPM 05/25/2014 05/19/2015 Inactive amlodipine 5 mg tablet RxNorm: 253833 1 Tablet(s) PO BID 05/25/2014 05/19/2015 Inactive prednisone 10 mg tablets in a dose pack RxNorm: 145672 1 Tablet(s) PO UD 04/06/2014 04/10/2014 Inactive 6-5-4-3-2-1 Xanax 0.25 mg tablet RxNorm: 193625 1 Tablet(s) PO BID PRN as needed 04/04/2014 07/02/2014 Inactive [SAVINGS FOR UNINSURED PATIENTS -- BIN:044385, PCN: ASPROD1, Group: AME08, ID# [id number], Process claim through [employer], for questions: . THIS IS NOT INSURANCE.] prednisone 20 mg tablet RxNorm: 875369 3 Tablet(s) PO daily 04/02/2014 04/05/2014 Inactive [SAVINGS FOR UNINSURED PATIENTS -- BIN:053519, PCN: ASPROD1, Group: AME08, ID# [id number], Process claim through [employer], for questions: . THIS IS NOT INSURANCE.] cefdinir 300 mg capsule RxNorm: 370923 1 Capsule(s) PO BID 04/02/2014 04/11/2014 Inactive [SAVINGS FOR UNINSURED PATIENTS -- BIN:362162, PCN: ASPROD1, Group: AME08, ID# [id number], Process claim through [employer], for questions: . THIS IS NOT INSURANCE.] Kenalog 40 mg/mL suspension for injection RxNorm: 0214823 Milliliter(s) Inj 04/02/2014 04/02/2014 Inactive [SAVINGS FOR UNINSURED PATIENTS -- BIN:512491, PCN: ASPROD1, Group: AME08, ID# [id number], Process claim through [employer], for questions: . THIS IS NOT INSURANCE.] ceftriaxone 500 mg solution for injection RxNorm: 505063 Inj 04/02/2014 04/02/2014 Inactive [SAVINGS FOR UNINSURED PATIENTS -- BIN:250265, PCN: ASPROD1, Group: AME08, ID# [id number], Process claim through [employer], for questions: . THIS IS NOT INSURANCE.] albuterol sulfate 2.5 mg/0.5 mL solution for nebulization RxNorm: 625950 1 treatment INH QID and as needed for dyspnea 04/02/2014 05/31/2014 Inactive [SAVINGS FOR UNINSURED PATIENTS -- BIN:761254, PCN: ASPROD1, Group: AME08, ID# [id number], Process claim through [employer], for questions: . THIS IS NOT INSURANCE.] azithromycin 500 mg tablet RxNorm: 379129 1 Tablet(s) PO daily 04/02/2014 04/06/2014 Inactive [SAVINGS FOR UNINSURED PATIENTS -- BIN:992574, PCN: ASPROD1, Group: AME08, ID# [id number], Process claim through [employer], for questions: . THIS IS NOT INSURANCE.] omeprazole 20 mg capsule,delayed release RxNorm: 531634 1 Tablet(s) PO daily 1 Capsule(s) PO daily 02/26/2014 06/25/2014 Inactive Xanax 0.25 mg tablet RxNorm: 830214 1 Tablet(s) PO BID PRN as needed 02/01/2014 04/03/2014 Inactive [SAVINGS FOR UNINSURED PATIENTS -- BIN:886542, PCN: ASPROD1, Group: AME08, ID# [id number], Process claim through [employer], for questions: . THIS IS NOT INSURANCE.] Xanax 0.25 mg tablet RxNorm: 209459 1 Tablet(s) PO HS PRN as needed 01/04/2014 01/31/2014 Inactive [SAVINGS FOR UNINSURED PATIENTS -- BIN:285288, PCN: ASPROD1, Group: AME08, ID# [id number], Process claim through [employer], for questions: . THIS IS NOT INSURANCE.] pravastatin 10 mg tablet RxNorm: 504670 1 Tablet(s) PO QHS 12/21/2013 12/20/2013 Inactive pravastatin 10 mg tablet RxNorm: 081085 1 Tablet(s) PO QHS 12/21/2013 07/18/2014 Inactive [SAVINGS FOR UNINSURED PATIENTS -- BIN:778760, PCN: ASPROD1, Group: AME08, ID# [id number], Process claim through [employer], for questions: . THIS IS NOT INSURANCE.] Hytrin 1 mg tablet RxNorm: 155414 1 Tablet(s) PO BID 12/21/2013 04/08/2015 Inactive [SAVINGS FOR UNINSURED PATIENTS -- BIN:610021, PCN: ASPROD1, Group: AME08, ID# [id number], Process claim through [employer], for questions: . THIS IS NOT INSURANCE.] Hytrin 1 mg tablet RxNorm: 493380 1 Tablet(s) PO daily 12/18/2013 12/20/2013 Inactive [SAVINGS FOR UNINSURED PATIENTS -- BIN:200818, PCN: ASPROD1, Group: AME08, ID# [id number], Process claim through [employer], for questions: . THIS IS NOT INSURANCE.] sertraline 100 mg tablet RxNorm: 720979 1 Tablet(s) PO QHS 12/14/2013 12/08/2014 Inactive [SAVINGS FOR UNINSURED PATIENTS -- BIN:962183, PCN: ASPROD1, Group: AME08, ID# [id number], Process claim through [employer], for questions: . THIS IS NOT INSURANCE.] Xanax 0.25 mg tablet RxNorm: 799831 1 Tablet(s) PO HS PRN as needed 12/13/2013 01/03/2014 Inactive [SAVINGS FOR UNINSURED PATIENTS -- BIN:165049, PCN: ASPROD1, Group: AME08, ID# [id number], Process claim through [employer], for questions: . THIS IS NOT INSURANCE.] tramadol 50 mg tablet RxNorm: 233201 2 Tablet(s) PO BID 11/08/2013 04/24/2015 Inactive Xanax 0.25 mg tablet RxNorm: 565119 1 Tablet(s) PO HS PRN as needed 10/19/2013 10/18/2013 Inactive Xanax 0.25 mg tablet RxNorm: 782077 1 Tablet(s) PO HS PRN as needed 10/19/2013 12/12/2013 Inactive Carafate 1 gram tablet RxNorm: 712801 Tablet(s) PO dissolve 1 tab QID x 1 week, then TID x 1 week, then BID x 1 week 09/07/2013 02/26/2015 Inactive omeprazole 20 mg capsule,delayed release RxNorm: 569163 1 Capsule(s) PO daily 09/07/2013 09/06/2013 Inactive omeprazole 20 mg capsule,delayed release RxNorm: 566799 1 Capsule(s) PO daily 09/07/2013 02/26/2014 Inactive prednisone 10 mg tablet RxNorm: 882957 1 Tablet(s) PO 08/25/2013 12/13/2013 Inactive prednisone taper Zithromax Z-Bon 250 mg tablet RxNorm: 276672 Tablet(s) PO as directed 08/25/2013 12/13/2013 Inactive Zithromax Z-Bon 250 mg tablet RxNorm: 612334 Tablet(s) PO as directed 08/04/2013 08/24/2013 Inactive Xanax 0.25 mg tablet RxNorm: 358038 1 Tablet(s) PO HS PRN 08/01/2013 10/18/2013 Inactive Kenalog 40 mg/mL suspension for injection RxNorm: 6821910 Milliliter(s) Inj 08/01/2013 08/01/2013 Inactive tramadol 50 mg tablet RxNorm: 257434 2 Tablet(s) PO BID 05/02/2013 11/07/2013 Inactive carvedilol 25 mg tablet RxNorm: 560610 1 Tablet(s) PO BID 05/02/2013 12/13/2013 Inactive magnesium oxide 400 mg tablet RxNorm: 951974 1 Tablet(s) PO daily 05/02/2013 04/26/2014 Inactive furosemide 20 mg tablet RxNorm: 271481 2 Tablet(s) PO daily 05/02/2013 2014 Inactive amlodipine 5 mg tablet RxNorm: 632972 1 Tablet(s) PO BID 05/02/2013 04/26/2014 Inactive sertraline 100 mg tablet RxNorm: 605869 1 Tablet(s) PO BID 05/02/2013 12/13/2013 Inactive ropinirole 1 mg tablet RxNorm: 234806 1 Tablet(s) PO QPM 05/02/2013 04/26/2014 Inactive pantoprazole 40 mg tablet,delayed release RxNorm: 493272 1 Tablet(s) PO daily 05/02/2013 2014 Inactive gabapentin 600 mg tablet RxNorm: 679396 1 Tablet(s) PO BID 05/02/2013 2014 Inactive aspirin 81 mg tablet,delayed release RxNorm: 440564 1 Tablet(s) PO daily No Start Date Active ferrous fumarate 325 mg (106 mg iron) tablet RxNorm: 422105 1 Tablet(s) PO daily No Start Date 2014 Inactive amlodipine 5 mg tablet RxNorm: 090931 1 Tablet(s) PO BID No Start Date 05/01/2013 Inactive Vitamin B-12 2,500 mcg sublingual tablet RxNorm: 297337 1 Tablet(s) SL daily No Start Date 2014 Inactive Zithromax Z-Bon 250 mg tablet RxNorm: 662931 Tablet(s) PO as directed No Start Date 08/03/2013 Inactive sertraline 100 mg tablet RxNorm: 095166 1 Tablet(s) PO BID No Start Date 05/01/2013 Inactive Hytrin 1 mg tablet RxNorm: 160271 1 Tablet(s) PO BID No Start Date 12/17/2013 Inactive potassium chloride ER 10 mEq capsule,extended release RxNorm: 248650 1 Capsule(s) PO QDAY PRN No Start Date 06/17/2016 Inactive Xanax 0.25 mg tablet RxNorm: 185994 1 Tablet(s) PO HS PRN No Start Date 07/31/2013 Inactive gabapentin 600 mg tablet RxNorm: 642993 1 Tablet(s) PO BID No Start Date 05/01/2013 Inactive ropinirole 1 mg tablet RxNorm: 437296 1 Tablet(s) PO QPM No Start Date 05/01/2013 Inactive Vitamin D3 1,000 unit tablet RxNorm: 465430 2 Tablet(s) PO daily No Start Date 09/11/2015 Inactive furosemide 20 mg tablet RxNorm: 683882 1 Tablet(s) PO BID No Start Date 05/01/2013 Inactive tramadol 50 mg tablet RxNorm: 689582 2 Tablet(s) PO BID No Start Date 05/01/2013 Inactive Carafate 1 gram tablet RxNorm: 319316 Tablet(s) PO dissolve 1 tab QID x 1 week, then TID x 1 week, then BID x 1 week No Start Date 09/06/2013 Inactive pantoprazole 40 mg tablet,delayed release RxNorm: 913470 1 Tablet(s) PO daily No Start Date 05/01/2013 Inactive montelukast 10 mg tablet RxNorm: 641823 1 Tablet(s) PO QHS No Start Date 04/23/2016 Inactive magnesium oxide 400 mg tablet RxNorm: 839272 1 Tablet(s) PO daily No Start Date 05/01/2013 Inactive prednisone 10 mg tablet RxNorm: 239220 1 Tablet(s) PO No Start Date 08/24/2013 Inactive prednisone taper carvedilol 25 mg tablet RxNorm: 826361 1 Tablet(s) PO BID No Start Date 05/01/2013 Inactive baclofen 10 mg tablet RxNorm: 810509 2 Tablet(s) PO daily No Start Date 12/13/2013 Inactive Vitamin B Complex capsule RxNorm: 1 Capsule(s) PO daily No Start Date 2014 Inactive Medication Administered Medication Codes Instructions Start Date Status Kenalog 40 mg/mL suspension for injection RxNorm: 2890505 Milliliter 09/15/2016 No longer Active Kenalog 40 mg/mL suspension for injection RxNorm: 4574615 Milliliter 04/02/2014 No longer Active ceftriaxone 500 mg solution for injection RxNorm: 589267 04/02/2014 No longer Active Kenalog 40 mg/mL suspension for injection RxNorm: 7859866 Milliliter 08/01/2013 No longer Active Immunizations Vaccine [...] Code Item Item Code Result Date Mayda 059619 MAYDA (MORTEZA) SCREEN NONE DETECTED 06/25/2017 Ra Factor Gdu852 RA FACTOR <10 IU/ml 06/24/2017 D-Dimer D-DIMER 675 ng/mL 06/09/2017 D-Dimer COMMENT 06/09/2017 Tsh Ord6 TSH (3rd IS) 2.05 uIU/mL 06/08/2017 Comp Metabolic Btd276 NA 137 mEq/L 06/01/2017 Comp Metabolic Htn922 K 3.7 mEq/L 06/01/2017 Comp Metabolic Ouh657 CL 100 mEq/L 06/01/2017 Comp Metabolic Qau484 CO2 28.0 mEq/L 06/01/2017 Comp Metabolic Qqv068 ANION GAP 13 06/01/2017 Comp Metabolic Jpo499 GLUCOSE 94 mg/dL 06/01/2017 Comp Metabolic Lry709 Creat 1.3 mg/dL 06/01/2017 Comp Metabolic Moo585 eGFR 45 ml/min/1.73m2 06/01/2017 Comp Metabolic Fkb697 BUN 12 mg/dL 06/01/2017 Comp Metabolic Xuy616 B/C Ratio 9.6 Ratio 06/01/2017 Comp Metabolic Ulb926 CALCIUM 9.5 mg/dL 06/01/2017 Comp Metabolic Dal928 ALK PHOS 77 U/L 06/01/2017 Comp Metabolic Jsi818 AST(SGOT) 17 U/L 06/01/2017 Comp Metabolic Zdf986 ALT(SGPT) 15 U/L 06/01/2017 Comp Metabolic Ckz670 BILI T 0.5 mg/dL 06/01/2017 Comp Metabolic Ykr286 ALBUMIN 4.4 g/dL 06/01/2017 Comp Metabolic Ynt487 TPRO 7.0 g/dL 06/01/2017 Comp Metabolic Dsg793 GLOB 2.6 g/dL 06/01/2017 Comp Metabolic Lvv429 A/G Ratio 1.7 Ratio 06/01/2017 Comp Metabolic Jel500 Osmo 273 mOsmo 06/01/2017 Cbc With Differential Ord2 WBC 5.65 K/ul 06/01/2017 Cbc With Differential Ord2 RBC 4.82 M/ul 06/01/2017 Cbc With Differential Ord2 HGB 13.8 g/dl 06/01/2017 Cbc With Differential Ord2 HCT 41.9 % 06/01/2017 Cbc With Differential Ord2 Neut% 53.7 % 06/01/2017 Cbc With Differential Ord2 MCV 86.9 fl 06/01/2017 Cbc With Differential Ord2 Lymph% 38.4 % 06/01/2017 Cbc With Differential Ord2 [place]% 5.8 % 06/01/2017 Cbc With Differential Ord2 MCH 28.6 pg 06/01/2017 Cbc With Differential Ord2 Eos% 1.2 % 06/01/2017 Cbc With Differential Ord2 MCHC 32.9 pg 06/01/2017 Cbc With Differential Ord2 PLT 270 K/ul 06/01/2017 Cbc With Differential Ord2 Baso% 0.9 % 06/01/2017 Cbc With Differential Ord2 Neut ABS# 3.03 K/ul 06/01/2017 Cbc With Differential Ord2 RDW 13.5 % 06/01/2017 Cbc With Differential Ord2 Lymph ABS# 2.17 K/ul 06/01/2017 Cbc With Differential Ord2 [place] ABS# 0.3 K/ul 06/01/2017 Cbc With Differential Ord2 Eos ABS# 0.1 K/ul 06/01/2017 Cbc With Differential Ord2 Baso ABS# 0.1 K/ul 06/01/2017 Mayda [id number] MAYDA (MORTEZA) SCREEN NONE DETECTED 06/22/2016 Ra Factor Nwb098 RA FACTOR <10 IU/ml 06/19/2016 Sed Rate Ord21 ESR 11 mm/hr 06/19/2016 C-Reactive Protein Qnt Crqnt CRP 0.3 mg/dl 06/19/2016 Sed Rate Ord21 ESR 14 mm/hr 02/25/2016 C-Reactive Protein Qnt Crqnt CRP 0.3 mg/dl 02/25/2016 Comp Metabolic Rxe867 NA 136 mEq/L 02/25/2016 Comp Metabolic Wcb224 K 3.9 mEq/L 02/25/2016 Comp Metabolic Smm492 CL 103 mEq/L 02/25/2016 Comp Metabolic Bqt877 CO2 27.0 mEq/L 02/25/2016 Comp Metabolic Wyz701 ANION GAP 10 02/25/2016 Comp Metabolic Htn536 GLUCOSE 82 mg/dL 02/25/2016 Comp Metabolic Dke370 Creat 1.3 mg/dL 02/25/2016 Comp Metabolic Udj190 eGFR 45 ml/min/1.73m2 02/25/2016 Comp Metabolic Clc809 BUN 13 mg/dL 02/25/2016 Comp Metabolic Mxx068 B/C Ratio 10.3 Ratio 02/25/2016 Comp Metabolic Ttz274 CALCIUM 9.5 mg/dL 02/25/2016 Comp Metabolic Alv133 ALK PHOS 70 U/L 02/25/2016 Comp Metabolic Dev213 AST(SGOT) 17 U/L 02/25/2016 Comp Metabolic Zob973 ALT(SGPT) 13 U/L 02/25/2016 Comp Metabolic Sfb910 BILI T 0.4 mg/dL 02/25/2016 Comp Metabolic Vdw998 ALBUMIN 4.2 g/dL 02/25/2016 Comp Metabolic Jvo216 TPRO 6.6 g/dL 02/25/2016 Comp Metabolic Phn360 GLOB 2.4 g/dL 02/25/2016 Comp Metabolic Dcc796 A/G Ratio 1.7 Ratio 02/25/2016 Comp Metabolic Mxs176 Osmo 271 mOsmo 02/25/2016 Cbc With Differential [...] 29.1 pg 02/25/2016 Cbc With Differential Ord2 Haskell% 6.8 % 02/25/2016 Cbc With Differential Ord2 Eos% 1.9 % 02/25/2016 Cbc With Differential Ord2 MCHC 33.7 pg 02/25/2016 Cbc With Differential Ord2 PLT 231 K/ul 02/25/2016 Cbc With Differential Ord2 Baso% 0.6 % 02/25/2016 Cbc With Differential Ord2 Neut ABS# 3.06 K/ul 02/25/2016 Cbc With Differential Ord2 RDW 13.2 % 02/25/2016 Cbc With Differential Ord2 Lymph ABS# 1.62 K/ul 02/25/2016 Cbc With Differential Ord2 Haskell ABS# 0.4 K/ul 02/25/2016 Cbc With Differential Ord2 Eos ABS# 0.1 K/ul 02/25/2016 Cbc With Differential Ord2 Baso ABS# 0.0 K/ul 02/25/2016 Tsh Ord6 hTSH II 1.63 uIU/mL 02/25/2016 [place] Spotted Fever Igg/Igm [id number] [place] SPOTTED FEVER IGM EIA . 09/17/2015 [place] Spotted Fever Igg/Igm 085524 RMSF, IGM 0.27 index 09/17/2015 [place] Spotted Fever Igg/Igm 446625 BENIG[place] SPOTTED FEVER IGG EIA FLEX . 09/17/2015 [place] Spotted Fever Igg/Igm 445381 RMSF, IGG SCREEN-FLEX Negative 09/17/2015 Ehrlichia Chaffeensis Antibody Igm [id number] EHRLICHIA CHAFFEENSIS IGM < 1:16 09/16/2015 Ehrlichia Chaffeensis Antibody Igg 016768 EHRLICHIA CHAFFEENSIS IGG 1:256 09/16/2015 [place]ymes Disease Total Antibodies With Western Blot Reflex [id number] B. BURGDORFERI, IGG/IGM 0.10 LI 09/14/2015 [place]ym[facility] Disease Total Antibodies With Western Blot Reflex [id number] 09/14/2015 Vitamin D 25 Oh Bbu4067 VITAMIN D, 25 HYDROXY 59.60 ng/mL 09/13/2015 Sed Rate Ord21 ESR 10 mm/hr 09/12/2015 Cbc With Differential Ord2 WBC 4.22 K/ul 09/12/2015 Cbc With Differential Ord2 RBC 4.70 M/ul 09/12/2015 Cbc With Differential Ord2 HGB 13.6 g/dl 09/12/2015 Cbc With Differential Ord2 Neut% 60.7 % 09/12/2015 Cbc With Differential Ord2 HCT 41.1 % 09/12/2015 Cbc With Differential Ord2 MCV 87.4 fl 09/12/2015 Cbc With Differential Ord2 Lymph% 31.5 % 09/12/2015 Cbc With Differential Ord2 MCH 28.9 pg 09/12/2015 Cbc With Differential Ord2 [place]% 5.9 % 09/12/2015 Cbc With Differential Ord2 [...] 1.33 K/ul 09/12/2015 Cbc With Differential Ord2 [place] ABS# 0.3 K/ul 09/12/2015 Cbc With Differential Ord2 Eos ABS# 0.1 K/ul 09/12/2015 Cbc With Differential Ord2 Baso ABS# 0.0 K/ul 09/12/2015 Comp Metabolic Unv691 NA 139 mEq/L 09/12/2015 Comp Metabolic Jvr177 K 3.8 mEq/L 09/12/2015 Comp Metabolic Wsy009 CL 103 mEq/L 09/12/2015 Comp Metabolic Psb838 CO2 27.0 mEq/L 09/12/2015 Comp Metabolic Jzp370 ANION GAP 13 09/12/2015 Comp Metabolic Vct124 GLUCOSE 91 mg/dL 09/12/2015 Comp Metabolic Byo161 Creat 1.2 mg/dL 09/12/2015 Comp Metabolic Xrp563 eGFR 47 ml/min/1.73m2 09/12/2015 Comp Metabolic Guc362 BUN 20 mg/dL 09/12/2015 Comp Metabolic Bbz157 B/C Ratio 16.3 Ratio 09/12/2015 Comp Metabolic Djs918 CALCIUM 9.3 mg/dL 09/12/2015 Comp Metabolic Fxy732 ALK PHOS 55 U/L 09/12/2015 Comp Metabolic Xuk478 AST(SGOT) 19 U/L 09/12/2015 Comp Metabolic Evk068 ALT(SGPT) 14 U/L 09/12/2015 Comp Metabolic Dsr477 BILI T 0.6 mg/dL 09/12/2015 Comp Metabolic Szj900 ALBUMIN 4.3 g/dL 09/12/2015 Comp Metabolic Kox157 TPRO 6.8 g/dL 09/12/2015 Comp Metabolic Uwq027 GLOB 2.5 g/dL 09/12/2015 Comp Metabolic Apl091 A/G Ratio 1.8 Ratio 09/12/2015 Comp Metabolic Bsx644 Osmo 280 mOsmo 09/12/2015 B12 Tlr401 B12 >1500.00 pg/ml 09/12/2015 Tsh Ord6 hTSH II 1.88 uIU/mL [...] Full Exam - General 1994 Neurologic coordination Kqphbm-ashd-yalhba testing - left: dysmetria 05/11/2017 None Full Exam - General 1994 Neurologic coordination Rxzmrf-armj-ijbmde testing - right: dysmetria 05/11/2017 None Full [...] clear 10/30/2016 None Full Exam - General 1995 Ears/Nose/Throat lips/teeth/gingiva Overall: benign lips 10/30/2016 None [...] Full Exam - General 1994 Neurologic coordination Svaiab-qtbw-lxkpob testing - left: dysmetria 04/20/2016 None Full Exam - General 1994 Neurologic coordination Aznrsd-rmxy-vtgarq testing - right: dysmetria 04/20/2016 None Full [...] Full Exam - General 1994 Neurologic coordination Rdqsej-mnnv-ilvwer testing - left: dysmetria 02/25/2016 None Full Exam - General 1994 Neurologic coordination Hujcbv-ildr-wuhvhc testing - right: dysmetria 02/25/2016 None Full [...] Full Exam - General 1994 Neurologic coordination Pijkoe-yfdc-lxxmcd testing - left: dysmetria 01/28/2016 None Full Exam - General 1994 Neurologic coordination Xqnbsq-fzxy-gvkbuo testing - right: dysmetria 01/28/2016 None Full [...] palp - head/face Lesion: excoriation 07/16/2014 right taoist, redness right eyelid Full Exam - Dermatology [...] accomodation 12/14/2013 None Full Exam - General 1995 Ears/Nose/Throat otoscopic exam Overall: external auditory canals clear 12/14/2013 None Full Exam - General 1994 Ears/Nose/Throat otoscopic exam Overall: tympanic membranes clear 12/14/2013 None Full Exam - General 1995 Ears/Nose/Throat lips/teeth/gingiva Overall: benign lips 12/14/2013 None [...] dentition 05/02/2013 None Full Exam - General 1995 Ears/Nose/Throat oral cavity/pharynx/larynx Overall: hypopharynx benign 05/02/2013 [...] Procedure Codes Date THER/PROPH/DIAG INJ SC/IM CPT-4: 38526 09/15/2016 TRIAMCINOLONE ACET INJ NOS CPT-4: J3301 09/15/2016 ADMIN INFLUENZA VIRUS VAC CPT-4: G0008 01/08/2016 ADMIN PNEUMOCOCCAL VACCINE SNOMED CT: 85375667 CPT-4: G0009 01/08/2016 PNEUMOCOCCAL VACC 13 RIVERA IM Formatting Model/CDA Sections, Assigned to/Aliya Muñoz SNOMED CT: 93819762 CPT-4: 24983Kbjqqpe 01/08/2016 FLU VACC 4 RIVERA 3 YRS PLUS IM SNOMED CT: 41322261 CPT-4: 68536 01/08/2016 THER/PROPH/DIAG INJ SC/IM CPT-4: 26339 04/02/2014 TRIAMCINOLONE ACET INJ NOS CPT-4: J3301 04/02/2014 ROCEPHIN, PER 250 MG CPT- 4: J0696 04/02/2014 TRIAMCINOLONE ACET INJ NOS CPT-4: J3301 08/01/2013 THER/PROPH/DIAG INJ SC/IM CPT-4: 89453 08/01/2013 Vital Signs Date Vital 01/25/2018 Blood Pressure 1: 130/68 Code: 8480-6 BMI: 34.4 Code: 81711-9 Heart Rate 1: 91 bpm Height: 5'5" SpO2: 95% Weight: 207 lbs 10/06/2017 Blood Pressure 1: 118/78 Code: 8480-6 BMI: 34.3 Code: 66020-3 Heart Rate 1: 75 bpm Height: 5'5" SpO2: 98% Weight: 206 lbs 09/27/2017 Blood Pressure 1: 136/88 Code: 8480-6 BMI: 35.4 Code: 76772-4 Heart Rate 1: 86 bpm Height: 5'5" SpO2: 98% Weight: 213 lbs 07/23/2017 Blood Pressure 1: 106/58 Code: 8480-6 BMI: 34.8 Code: 08846-8 Heart Rate 1: 70 bpm Height: 5'5" SpO2: 96% Weight: 209 lbs 06/01/2017 Blood Pressure 1: 150/96 Code: 8480-6 BMI: 34.4 Code: 51057-9 Heart Rate 1: 82 bpm Height: 5'5" SpO2: 99% Weight: 207 lbs 05/11/2017 Blood Pressure 1: 144/90 Code: 8480-6 BMI: 34.6 Code: 48103-7 Heart Rate 1: 76 bpm Height: 5'5" SpO2: 98% Weight: 208 lbs 10/30/2016 Blood Pressure 1: 172/104 Code: 8480-6 Blood Pressure 1: 158/98 Code: 8480-6 BMI: 34.7 Code: 57135-5 Heart Rate 1: 70 bpm Height: 5'5" SpO2: 97% Temperature: 36.2 (C) / 97.1 (F) Weight: 208 lbs 10 oz 04/20/2016 Blood Pressure 1: 144/86 Code: 8480-6 BMI: 34.3 Code: 30734-0 Heart Rate 1: 68 bpm Height: 5'5" SpO2: 97% Weight: 206 lbs 02/25/2016 Blood Pressure 1: 122/82 Code: 8480-6 BMI: 34.4 Code: 66603-3 Heart Rate 1: 86 bpm Height: 5'5" SpO2: 94% Weight: 207 lbs 01/28/2016 Blood Pressure 1: 128/86 Code: 8480-6 BMI: 33.3 Code: 18181-2 Heart Rate 1: 86 bpm Height: 5'5" SpO2: 96% Weight: 200 lbs 11/14/2015 Blood Pressure 1: 138/88 Code: 8480-6 Blood Pressure 1: 140/90 Code: 8480-6 BMI: 33.3 Code: 74609-9 Heart Rate 1: 98 bpm Height: 5'5" SpO2: 97% Weight: 200 lbs 10/10/2015 Blood Pressure 1: 132/80 Code: 8480-6 BMI: 33.3 Code: 21414-5 Heart Rate 1: 74 bpm Height: 5'5" SpO2: 96% Weight: 200 lbs 09/12/2015 Blood Pressure 1: 148/90 Code: 8480-6 BMI: 32.9 Code: 50849-2 Heart Rate 1: 94 bpm Height: 5'5" SpO2: 97% Weight: 198 lbs 04/09/2015 Blood Pressure 1: 130/84 Code: 8480-6 Blood Pressure 1: 160/82 Code: 8480-6 BMI: 32.4 Code: 87236-3 Heart Rate 1: 74 bpm Height: 5'5" SpO2: 95% Weight: 195 lbs 10/05/2014 Blood Pressure 1: 140/80 Code: 8480-6 BMI: 30.5 Code: 44526-0 Heart Rate 1: 79 bpm Height: 5'5" SpO2: 98% Weight: 183 lbs 09/07/2014 Blood Pressure 1: 142/96 Code: 8480-6 BMI: 32.1 Code: 43403-8 Heart Rate 1: 72 bpm Height: 5'5" SpO2: 98% Temperature: 36.5 (C) / 97.7 (F) Weight: 193 lbs 07/16/2014 Blood Pressure 1: 138/82 Code: 8480-6 BMI: 31.8 Code: 65071-7 Heart Rate 1: 76 bpm Height: 5'5" Weight: 191 lbs 04/02/2014 Blood Pressure 1: 148/90 Code: 8480-6 BMI: 33.8 Code: 09678-3 Heart Rate 1: 68 bpm Height: 5'5" Temperature: 36.9 (C) / 98.4 (F) Weight: 203 lbs 12/14/2013 Blood Pressure 1: 140/88 Code: 8480-6 BMI: 35.3 Code: 05417-2 Heart Rate 1: 91 bpm Height: 5'5" SpO2: 97% Weight: 212 lbs 08/01/2013 Blood Pressure 1: 126/68 Code: 8480-6 BMI: 35.1 Code: 93717-1 Heart Rate 1: 76 bpm Height: 5'5" Temperature: 36.7 (C) / 98.1 (F) Weight: 211 lbs 05/02/2013 Blood Pressure 1: 118/86 Code: 8480-6 BMI: 34.9 Code: 72806-7 Heart Rate 1: 76 bpm Height: 5'5" Weight: 209 lbs 8 oz 04/18/2013 Blood Pressure 1: 118/60 Code: 8480-6 BMI: 35.3 Code: 67147-6 Heart Rate 1: 68 bpm Height: 5'5" [...] data Encounters Encounter Performer Location Codes Date ([id number]) 74242 EST. PATIENT, LEVEL III Diagnosis: Essential (primary) hypertension[ICD10: I10] Marilyn Lao MD, [facility] CPT-4: 70844 01/25/2018 ([id number]) 28414 EST. 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 PATIENT, LEVEL IV Diagnosis: Essential (primary) hypertension[ICD10: I10] Diagnosis: Localized edema[ICD10: R60.0] Marilyn Lao MD, [facility] CPT-4: 11671 09/27/2017 ([id number]) 78440 EST. PATIENT, LEVEL IV Diagnosis: Generalized anxiety disorder[ICD10: F41.1] Diagnosis: Essential (primary) hypertension[ICD10: I10] Diagnosis: Chronic pain syndrome[ICD10: G89.4] Noa Lao MD, [facility] CPT-4: 99670 07/23/2017 ([id number]) 64488 EST. PATIENT, LEVEL IV Diagnosis: Essential (primary) hypertension[ICD10: I10] Diagnosis: Chest pain, unspecified[ICD10: R07.9] Diagnosis: Chronic kidney disease, stage 3 (moderate)[ICD10: N18.3] Noa Lao MD, [facility] CPT-4: 39500 06/01/2017 84709 EST. PATIENT, LEVEL IV Diagnosis: Gastro-esophageal reflux disease without esophagitis[ICD10: K21.9] Anais Lao MD, [facility] CPT-4: 96930 05/11/2017 ([id number]) 37707 EST. PATIENT, LEVEL III Diagnosis: Essential (primary) hypertension[ICD10: I10] Diagnosis: Contusion of right lower leg, initial encounter[ICD10: S80.11XA] Noa Lao MD, [facility] CPT-4: 77902 10/30/2016 ([id number]) 13075 EST. PATIENT, LEVEL IV Diagnosis: Essential (primary) hypertension[ICD10: I10] Diagnosis: Generalized anxiety disorder[ICD10: F41.1] aMrilyn Lao MD, [facility] CPT-4: 75232 04/20/2016 ([id number]) 16002 EST. PATIENT, LEVEL IV Diagnosis: Essential (primary) hypertension[ICD10: I10] Diagnosis: Chronic kidney disease, stage 3 (moderate)[ICD10: N18.3] Diagnosis: Generalized anxiety disorder[ICD10: F41.1] Diagnosis: Major depressive disorder, recurrent, moderate[ICD10: F33.1] Diagnosis: Shortness of breath[ICD10: R06.02] Noa Lao MD, [facility] CPT- 4: 28166 02/25/2016 ([id number]) 67213 EST. PATIENT, LEVEL IV Diagnosis: Generalized anxiety disorder[ICD10: F41.1] Diagnosis: Major depressive disorder, recurrent, moderate[ICD10: F33.1] Diagnosis: Essential (primary) hypertension[ICD10: I10] Diagnosis: Restless legs syndrome[ICD10: G25.81] Diagnosis: Myalgia[ICD10: M79.1] Noa Lao MD, [facility] CPT-4: 53114 01/28/2016 ([id number]) 54957 EST. PATIENT, LEVEL III Diagnosis: Essential (primary) hypertension[ICD10: I10] Diagnosis: Insomnia, unspecified[ICD10: G47.00] Noa Lao MD, [facility] CPT-4: 54703 11/14/2015 ([id number]) 37274 EST. 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 PATIENT, LEVEL IV Diagnosis: Bitten or stung by nonvenomous insect and other nonvenomous arthropods, initial encounter[ICD10: W57.XXXA] Diagnosis: Other fatigue[ICD10: R53.83] Diagnosis: Vitamin D deficiency, unspecified[ICD10: E55.9] Diagnosis: Other vitamin B12 deficiency anemias[ICD10: D51.8] Diagnosis: Essential (primary) hypertension[ICD10: I10] Diagnosis: Iron deficiency[ICD10: E61.1] Noa Lao MD, [facility] CPT-4: 25302 09/12/2015 ([id number]) 98771 EST. PATIENT, LEVEL III Diagnosis: Essential (primary) hypertension[ICD10: I10] Diagnosis: Chronic kidney disease, stage 3 (moderate)[ICD10: N18.3] Noa Lao MD, [facility] CPT-4: 38462 04/09/2015 ([id number]) 04634 EST. PATIENT, LEVEL III Diagnosis: ESSENTIAL HYPERTENSION[ICD9: 401.9] Noa Lao MD, [facility] CPT-4: 28496 10/05/2014 ([id number]) 07896 EST. PATIENT, LEVEL IV Diagnosis: Easy bruising[ICD9: 782.9] Diagnosis: Iron deficiency anemia[ICD9: 280.9] Diagnosis: ESSENTIAL HYPERTENSION[ICD9: 401.9] Diagnosis: Chronic kidney disease, stage 3[ICD9: 585.3] Noa Lao MD, [facility] CPT-4: 30589 09/07/2014 ([id number]) 44617 EST. PATIENT, LEVEL III Diagnosis: Shingles[ICD9: 053.9] Marilyn Lao MD [facility] CPT-4: 96222 07/16/2014 ([id number]) 26161 EST. PATIENT, LEVEL III Diagnosis: PNEUMONIA (CAP)[ICD9: 486] Diagnosis: COUGH[ICD9: 786.2] Marilyn Lao MD, [facility] CPT-4: 60475 04/02/2014 ([id number]) 84458 EST. PATIENT, LEVEL III Diagnosis: ESSENTIAL HYPERTENSION[ICD9: 401.9] Diagnosis: Rib pain on left side[ICD9: 786.50] Diagnosis: EDEMA[ICD9: 782.3] Noa Lao MD, [facility] CPT-4: 38194 12/14/2013 ([id number]) 70229 EST. PATIENT, LEVEL IV Diagnosis: ESOPHAGEAL REFLUX[ICD9: 530.81] Diagnosis: Urge incontinence[ICD9: 788.31] Diagnosis: Elbow pain, right[ICD9: 719.42] Diagnosis: Snoring[ICD9: 786.09] Marilyn Lao MD, [facility] CPT-4: 73564 08/01/2013 ([id number]) 74339 EST. PATIENT, LEVEL IV Diagnosis: ESSENTIAL HYPERTENSION[SNOMED: 17190777] Diagnosis: EDEMA[ICD9: 782.3] Diagnosis: Chronic renal insufficiency, stage III (moderate)[ICD9: 585.3] Diagnosis: HYPERLIPIDEMIA[ICD9: 272.4] Marilyn Lao MD, [facility] CPT-4: 02211 05/02/2013 ([id number]) 56560 EST. PATIENT, LEVEL IV Diagnosis: ESSENTIAL HYPERTENSION[SNOMED: 31633552] Diagnosis: Restless leg[ICD9: 333.94] [facility] CPT-4: 25421 04/18/2013 Plan of Care Planned Activity Notes Codes Status Date Visit Plan: Hypertension - well controlled - continue with current medications, continue with no added salt diet. Pt has been encouraged to exercise daily. The pt has been advised to call the office if there are any acute concerns about change in blood pressure readings at home. 01/25/2018 Appointment: Marilyn Lao WPtel: [phone] [facility] [place] (15 min) Moderate 01/25/2018 Patient Education: Patient Medication Summary Completed 01/25/2018 Appointment: Marilyn Lao WPtel: [phone] [facility] [place] (15 min) Moderate 01/06/2018 Patient Education: Patient Medication Summary Completed 10/26/2017 Care Plan: Comp Metabolic Cancelled 10/26/2017 Visit Plan: Tinea/Onychodystrophy - penlac prescribed, pt did not want to take medication by mouth for treatment. Edema - improved - continue current regimen. 10/06/2017 App[facility]ment[phone] [facility] [place] ([facility] min) Moderate 10/06/2017 Patient Education: Patient [...] at home. 09/27/2017 Appointment: Marilyn Lao WPtel: [facility] (15 min) Moderate 09/27/2017 Patient Education: Patient [...] massage 07/23/2017 Appointment: Noa Orlando WPtel: [phone] [phone] (15 min) Moderate 07/23/2017 Patient Education: Patient Medication Summary Completed 07/23/2017 Patient Education: Patient Medication Summary Completed 06/23/2017 Referral: Ta Satnacruz Patient informed. Referral info faxed. Completed 06/07/2017 [...] worsens 06/01/2017 Appointment: Noa Orlando WPtel: [phone] [phone] (30 min) Complex 06/01/2017 Patient Education: Patient Medication Summary Completed 06/01/2017 Care Plan: Referral Order SNOMED-CT : 169053978 Pending 06/01/2017 Visit Plan: Esophageal Reflux - the patient has been counseled against excessive intake of caffeine, spicy foods, peppermint, and cinnamon - all of which can exacerbate esophageal reflux. The patient is to take med ications as prescribed and call the office if the symptoms are not improving. 05/11/2017 Appointment: Anais Arrieta WPtel: [phone] [facility] (15 min) Moderate 05/11/2017 Patient Education: [...] Summary Completed 09/15/2016 Appointment: Marilyn Lao WPtel: [phone] [facility] [place] (15 min) Moderate 08/19/2016 Patient Education: [...] current medications. 04/20/2016 Appointment: [facility] [phone] [facility] [place] (30 min) Complex 04/20/2016 Patient Education: Patient Medication Summary Completed 04/20/2016 Patient Education: Obesity Completed 04/20/2016 Patient Education: Hypertension Completed 04/20/2016 Appointment: Nao Orlando WPtel: [phone] [phone] [place] (30 min) Complex 03/16/2016 Referral: Ta [...] for follow up. Chronic renal disease-check labs Yficyrn-uoyqjhhrpc-ptvrrrio with cymbalta-continue same dose for now -may take xanax TID PRN Multiple joint pain-check labs including inflammatory markers 02/25/2016 [facility]ment: [phone] [phone] ([facility] min) Complex 02/25/2016 Patient Education: Patient Medication Summary Completed 02/25/2016 Patient Education: Obesity Completed 02/25/2016 Patient Education: Hypertension Completed 02/25/2016 Care Plan: Referral Order SNOMED-CT : 207789013 Pending 02/25/2016 Visit Plan: Anxiety/Depression - the [...] in blood pressure readings at home. Restless xit-pjlodh-mwonviar requip to twice daily-monitor symptoms Myalgias-stop pravastatin 01/28/2016 Appointment: [facility] [place] [phone] [phone] (30 min) Complex 01/28/2016 Patient Education: [...] Appointment: Marilyn Lao WPtel: [facility] (15 min) Moderate 10/08/2015 Visit Plan: Hypertension - well controlled - continue with current medications, continue with no added salt diet. Pt has been encouraged to exercise daily. The pt has been advised to call the office if there are any acute concerns about change in blood pressure readings at home. Iron deficiency- B12 deficiency-check labs Tick cciw-yxxqtbc-dlqeu tick panel 09/12/2015 Appointment: Noa Orlando WPtel: [phone] (15 min) Moderate 09/12/2015 Patient Education: Patient [...] symptoms Iron deficiency anemia-stopped oral iron per salvage worker in March-recheck labs HTN-elevated today-monitor twice daily [...] Care Plan: COMPLETE CBC AUTOMATED LOINC : 89087-2 Ordered 09/07/2014 Visit Plan: Shingles - Herpes [...] Appointment: Marilyn Lao WPtel: [facility] Follow up 04/16/2014 Appointment: Sick 04/03/2014 Visit Plan: Pneumonia - Pt has been diagnosed with pneumonia by physical exam. Antibiotics started. The pt is aware of the diagnosis and the need for acute treatment of this illness. 04/02/2014 Patient Education: Patient Medication Summary Completed 04/02/2014 Appointment: Marilyn Lao WPtel: [facility] Sick 12/27/2013 Patient Education: Patient [...] further attempt to reduce peripheral edema. Night yhwxwq-ecytgzq-vongb labs 12/14/2013 Appointment: Follow up 12/14/2013 Patient Education: Patient Medication Summary Completed 12/14/2013 Patient Education: Hypertension Completed 12/14/2013 Appointment: Noa Orlando WPtel: [phone] [place] [address] 12/01/2013 Appointment: Marilyn Lao WPtel: [address] [place], [place] [phone] Sick 11/30/2013 Visit Plan: Allergies - chronic [...] monitor symptoms. 08/01/2013 Appointment: Marilyn Lao WPtel: [address] [place], [place] [phone] Follow up 08/01/2013 Patient Education: Patient Medication [...] monitor labs/adjust medications as able. 05/02/2013 Appointment: Rianna Laoy WPtel: [facility] Follow up 05/02/2013 Patient Education: [...] her iron with orange juice. 04/18/2013 Appointment: TashiaRiannay WPtel: [facility] New Patient 04/18/2013 Patient Education: Patient Medication [...] symptoms Iron deficiency anemia-stopped oral iron per salvage worker in March-recheck labs HTN-elevated today-monitor twice daily [...] at home. Iron deficiency-B12 deficiency-check labs Tick igrk-vnhnojj-xnqvh tick panel . Hypertension - well controlled [...] for follow up. Chronic renal disease-check labs Dfcpjru-ysnhnwqvqy-tuqixnif with cymbalta-continue same dose for now -may [...] in blood pressure readings at home. Restless kfs-tcrpkg-qthriqpv requip to twice daily-monitor symptoms Myalgias-stop pravastatin [...] further attempt to reduce peripheral edema. Night cezlie-wfzqthp-asilf labs . Chronic Depression and anxiety - the [...]
--- OUTSIDE RECORDS SUMMARY | 2018-11-04 16:11 | XMS REPORT | CCD ---
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 08/01/2013 Employment Unknown Retired doing as needed working for the [employer]. 05/02/2013 Marital status Unknown 04/18/[address]: 459619723 Never drinks alcohol 04/18/2013 Has the patient [...] Start Date Stop Date Status Fill Instructions tramadol 50 mg tablet RxNorm: 226228 2 Tablet(s) PO BID 04/26/2018 06/24/2018 Active alprazolam 0.5 mg tablet RxNorm: 987446 1/2-1 Tablet(s) PO TID PRN as needed 04/04/2018 06/01/2018 Active Xanax 0.5 mg tablet RxNorm: 535429 1 Tablet(s) PO TID PRN as needed 04/04/2018 07/31/2018 Active tramadol 50 mg tablet RxNorm: 072230 2 Tablet(s) PO BID 12/01/2017 01/29/2018 Inactive Cymbalta 60 mg capsule,delayed release RxNorm: 782243 TAKE ONE CAPSULE BY MOUTH DAILY 11/10/2017 11/04/2018 Active furosemide 40 mg tablet RxNorm: 949395 1 Tablet(s) PO daily 10/26/2017 10/20/2018 Active alprazolam 0.5 mg tablet RxNorm: 663292 1/2-1 Tablet(s) PO TID PRN as needed 10/12/2017 12/10/2017 Inactive Ciclodan 8 % topical solution RxNorm: 1720587 1 Application TOP daily x 7 days, clean off with alcohol then restart cycle of application until fungal infection is completely cleared 10/06/2017 01/03/2018 Inactive omeprazole 20 mg capsule,delayed release RxNorm: 610557 TAKE ONE CAPSULE BY MOUTH DAILY 10/04/2017 01/24/2018 Inactive losartan 100 mg tablet RxNorm: 133941 1 Tablet(s) PO daily 09/27/2017 03/25/2018 Inactive Xanax 0.25 mg tablet RxNorm: 562123 1 Tablet(s) PO TID PRN as needed 08/13/2017 10/11/2017 Inactive Xanax 0.5 mg tablet RxNorm: 761391 1 Tablet(s) PO TID PRN as needed 07/23/2017 11/18/2017 Inactive ropinirole 1 mg tablet RxNorm: 257973 TAKE TWO TABLETS BY MOUTH EVERY NIGHT AT BEDTIME 06/28/2017 06/22/2018 Active montelukast 10 mg tablet RxNorm: 975866 TAKE ONE TABLET BY MOUTH EVERY NIGHT AT BEDTIME 06/28/2017 06/22/2018 Active furosemide 20 mg tablet RxNorm: 643068 TAKE TWO TABLETS BY MOUTH DAILY FOR 7 DAYS THEN TAKE ONE TABLET BY MOUTH DAILY 06/28/2017 10/01/2017 Inactive losartan 50 mg tablet RxNorm: 517917 1 Tablet(s) PO daily 06/01/2017 09/26/2017 Inactive labetalol 100 mg tablet RxNorm: 631869 TAKE ONE TABLET BY MOUTH TWICE A DAY 05/26/2017 05/30/2017 Inactive labetalol 100 mg tablet RxNorm: 351807 1 Tablet(s) PO BID 05/26/2017 05/20/2018 Active Protonix 40 mg tablet,delayed release RxNorm: 676165 1 Tablet(s) PO daily 05/26/2017 05/20/2018 Active amlodipine 5 mg tablet RxNorm: 825438 TAKE ONE TABLET BY MOUTH TWICE A DAY 05/26/2017 09/26/2017 Inactive Carafate 1 gram tablet RxNorm: 140621 1 Tablet(s) PO QID 05/11/2017 09/07/2017 Inactive Protonix 40 mg tablet,delayed release RxNorm: 553835 1 Tablet(s) PO daily 05/11/2017 05/25/2017 Inactive Cymbalta 60 mg capsule,delayed release RxNorm: 207714 TAKE ONE CAPSULE BY MOUTH DAILY 05/05/2017 10/31/2017 Inactive Xanax 0.25 mg tablet RxNorm: 717957 1 Tablet(s) PO TID PRN as needed 02/09/2017 06/07/2017 Inactive Cymbalta 60 mg capsule,delayed release RxNorm: 664503 TAKE ONE CAPSULE BY MOUTH DAILY 10/28/2016 04/25/2017 Inactive Xanax 0.25 mg tablet RxNorm: 912340 1 Tablet(s) PO TID PRN as needed 10/08/2016 12/06/2016 Inactive NEED TO GIVE #90 WITH NEXT REFILL Kenalog 40 mg/mL suspension for injection RxNorm: 1954270 Milliliter(s) Inj 09/15/2016 09/15/2016 Inactive tramadol 50 mg tablet RxNorm: 565932 Tablet(s) TAKE 2 TABLETS BY MOUTH TWICE DAILY 08/18/2016 02/12/2017 Inactive Generic For:ULTRAM 50 MG TABLET N O T I C E Last quantity doesn't match original quantity(Response to an electronic controlled substance refill request - RxReferenceNumber: [id number]) potassium chloride ER 10 mEq capsule,extended release RxNorm: 347367 TAKE ONE CAPSULE BY MOUTH DAILY NEEDED 08/03/2016 01/29/2017 Inactive potassium chloride ER 10 mEq capsule,extended release RxNorm: 690203 1 Capsule(s) PO QDAY PRN 06/18/2016 08/02/2016 Inactive furosemide 20 mg tablet RxNorm: 611567 1 Tablet(s) PO daily as needed for swelling 06/18/2016 06/12/2017 Inactive 2 daily x 1 week then daily Carafate 1 gram tablet RxNorm: 752404 1 Tablet(s) PO daily 04/24/2016 04/18/2017 Inactive Cymbalta 60 mg capsule,delayed release RxNorm: 363788 1 Capsule(s) PO daily 04/24/2016 10/20/2016 Inactive montelukast 10 mg tablet RxNorm: 436775 1 Tablet(s) PO QHS 04/24/2016 04/18/2017 Inactive omeprazole 20 mg capsule,delayed release RxNorm: 807856 Capsule(s) 1 Capsule(s) PO daily 04/24/2016 05/31/2017 Inactive ropinirole 1 mg tablet RxNorm: 093760 2 Tablet(s) PO QHS 04/24/2016 04/18/2017 Inactive furosemide 20 mg tablet RxNorm: 490992 1 Tablet(s) PO daily as needed for swelling 04/24/2016 06/17/2016 Inactive labetalol 100 mg tablet RxNorm: 134451 1 Tablet(s) PO BID 04/24/2016 04/18/2017 Inactive amlodipine 5 mg tablet RxNorm: 561098 Tablet(s) TAKE 1 TABLET BY MOUTH TWICE DAILY 04/24/2016 04/18/2017 Inactive Transferring from [facility] Xanax 0.25 mg tablet RxNorm: 869314 1 Tablet(s) PO TID PRN as needed 02/25/2016 03/25/2016 Inactive NEED TO GIVE #90 WITH NEXT REFILL Xanax 0.25 mg tablet RxNorm: 323025 1 Tablet(s) PO BID PRN as needed 02/19/2016 02/24/2016 Inactive [SAVINGS FOR UNINSURED PATIENTS -- BIN:041766, PCN: ASPROD1, Group: AME08, ID# [id number], Process claim through [employer], for questions: . THIS IS NOT INSURANCE.] Cymbalta 60 mg capsule,delayed release RxNorm: 416405 1 Capsule(s) PO daily 01/28/2016 04/23/2016 Inactive ropinirole 1 mg tablet RxNorm: 632753 1 Tablet(s) PO BID TAKE 1 TABLET BY MOUTH DAILY EVERY NIGHT 01/28/2016 04/23/2016 Inactive Generic For:REQUIP 1 MG TABLET tramadol 50 mg tablet RxNorm: 635038 Tablet(s) TAKE 2 TABLETS BY MOUTH TWICE DAILY 01/16/2016 07/13/2016 Inactive Generic For:ULTRAM 50 MG TABLET N O T I C E Last quantity doesn't match original quantity(Response to an electronic controlled substance refill request - RxReferenceNumber: [id number]) omeprazole 20 mg capsule,delayed release RxNorm: 636627 1 Tablet(s) PO daily 1 Capsule(s) PO daily 12/11/2015 04/23/2016 Inactive pravastatin 10 mg tablet RxNorm: 802778 1 Tablet(s) PO QHS TAKE 1 TABLET BY MOUTH EVERY NIGHT 11/28/2015 01/27/2016 Inactive Generic For:PRAVACHOL 10 MG TABLET furosemide 20 mg tablet RxNorm: 350021 1 Tablet(s) PO daily as needed for swelling 11/12/2015 04/23/2016 Inactive pravastatin 10 mg tablet RxNorm: 786848 1 Tablet(s) PO QHS TAKE 1 TABLET BY MOUTH EVERY NIGHT 11/07/2015 11/27/2015 Inactive Generic For:PRAVACHOL 10 MG TABLET Xanax 0.25 mg tablet RxNorm: 471638 1 Tablet(s) PO BID PRN as needed 10/28/2015 01/25/2016 Inactive [SAVINGS FOR UNINSURED PATIENTS -- BIN:700519, PCN: ASPROD1, Group: AME08, ID# [id number], Process claim through [employer], for questions: . THIS IS NOT INSURANCE.] Viberzi 75 mg tablet RxNorm: 3657614 1 Tablet(s) PO BID 10/10/2015 10/10/2015 Inactive doxycycline hyclate 100 mg tablet RxNorm: 907168 1 Tablet(s) PO BID 10/10/2015 10/23/2015 Inactive Vitamins B Complex capsule RxNorm: 1 Capsule(s) PO daily 09/12/2015 No Stop Date Active Vitamin D3 1,000 unit tablet RxNorm: 675098 3-4 Tablet(s) PO daily 09/12/2015 No Stop Date Active Augmentin 500 mg-125 mg tablet RxNorm: 413468 1 Tablet(s) PO BID 07/09/2015 2015 Inactive probiotic one bid x 7 days Augmentin 500 mg-125 mg tablet RxNorm: 563535 1 Tablet(s) PO BID 07/09/2015 07/08/2015 Inactive Xanax 0.25 mg tablet RxNorm: 679426 1 Tablet(s) PO BID PRN as needed 07/01/2015 09/28/2015 Inactive [SAVINGS FOR UNINSURED PATIENTS -- BIN:195600, PCN: ASPROD1, Group: AME08, ID# [id number], Process claim through [employer], for questions: . THIS IS NOT INSURANCE.] sertraline 100 mg tablet RxNorm: 929670 TAKE 1 TABLET BY MOUTH TWICE DAILY 07/01/2015 01/27/2016 Inactive Generic For:*ZOLOFT 100MG TABLET N O T I C E Last quantity doesn't match original quantity amlodipine 5 mg tablet RxNorm: 370699 TAKE 1 TABLET BY MOUTH TWICE DAILY 06/26/2015 04/23/2016 Inactive Generic For:NORVASC 5 MG TABLET N O T I C E Last quantity doesn't match original quantity amlodipine 5 mg tablet RxNorm: 378949 Tablet(s) 1 Tablet(s) PO BID 06/25/2015 06/25/2015 Inactive ropinirole 1 mg tablet RxNorm: 307083 TAKE 1 TABLET BY MOUTH DAILY EVERY NIGHT 05/22/2015 01/27/2016 Inactive Generic For:REQUIP 1 MG TABLET ropinirole 1 mg tablet RxNorm: 357567 Tablet(s) 1 Tablet(s) PO QPM 05/22/2015 05/21/2015 Inactive pravastatin 10 mg tablet RxNorm: 759770 TAKE 1 TABLET BY MOUTH EVERY NIGHT 05/14/2015 11/06/2015 Inactive Generic For:PRAVACHOL 10 MG TABLET tramadol 50 mg tablet RxNorm: 013671 2 Tablet(s) PO BID 04/25/2015 01/18/2016 Inactive labetalol 100 mg tablet RxNorm: 428336 1 Tablet(s) PO BID 04/09/2015 04/23/2016 Inactive omeprazole 20 mg capsule,delayed release RxNorm: 020025 1 Tablet(s) PO daily 1 Capsule(s) PO daily 03/20/2015 12/10/2015 Inactive Carafate 1 gram tablet RxNorm: 463346 Tablet(s) PO UD 4 times daily x 1 week and then PRN 02/27/2015 02/21/2016 Inactive Xanax 0.25 mg tablet RxNorm: 980591 1 Tablet(s) PO BID PRN as needed 02/08/2015 06/06/2015 Inactive [SAVINGS FOR UNINSURED PATIENTS -- BIN:486679, PCN: ASPROD1, Group: AME08, ID# [id number], Process claim through [employer], for questions: . THIS IS NOT INSURANCE.] furosemide 20 mg tablet RxNorm: 330938 1 Tablet(s) PO daily as needed for swelling 10/25/2014 02/21/2015 Inactive ok to fill by Dr. Franklin 10-25-14 Xanax 0.25 mg tablet RxNorm: 980604 1 Tablet(s) PO BID PRN as needed 09/25/2014 01/21/2015 Inactive [SAVINGS FOR UNINSURED PATIENTS -- BIN:653688, PCN: ASPROD1, Group: AME08, ID# [id number], Process claim through [employer], for questions: . THIS IS NOT INSURANCE.] pravastatin 10 mg tablet RxNorm: 002726 TAKE 1 TABLET BY MOUTH EVERY NIGHT 09/06/2014 04/03/2015 Inactive Generic For:PRAVACHOL 10 MG TABLET tramadol 50 mg tablet RxNorm: 257056 TAKE 2 TABLETS BY MOUTH TWICE DAILY 08/02/2014 01/15/2016 Inactive Generic For:ULTRAM 50 MG TABLET N O T I C E Last quantity doesn't match original quantity(Response to an electronic controlled substance refill request - RxReferenceNumber: [id number]) tramadol 50 mg tablet RxNorm: 872671 2 Tablet(s) PO BID 08/01/2014 08/02/2014 Inactive acyclovir 400 mg tablet RxNorm: 725669 2 Tablet(s) PO QID 07/16/2014 07/25/2014 Inactive sertraline 100 mg tablet RxNorm: 162664 1 Tablet(s) PO BID 1 Tablet(s) PO BID 06/13/2014 12/09/2014 Inactive sertraline 100 mg tablet RxNorm: 800856 1 Tablet(s) PO BID 06/13/2014 06/12/2014 Inactive magnesium oxide 400 mg tablet RxNorm: 751760 1 Tablet(s) PO daily 05/25/2014 2014 Inactive ropinirole 1 mg tablet RxNorm: 162143 1 Tablet(s) PO QPM 05/25/2014 05/19/2015 Inactive amlodipine 5 mg tablet RxNorm: 399409 1 Tablet(s) PO BID 05/25/2014 05/19/2015 Inactive prednisone 10 mg tablets in a dose pack RxNorm: 944900 1 Tablet(s) PO UD 04/06/2014 04/10/2014 Inactive 6-5-4-3-2-1 Xanax 0.25 mg tablet RxNorm: 355136 1 Tablet(s) PO BID PRN as needed 04/04/2014 07/02/2014 Inactive [SAVINGS FOR UNINSURED PATIENTS -- BIN:950094, PCN: ASPROD1, Group: AME08, ID# [id number], Process claim through [employer], for questions: . THIS IS NOT INSURANCE.] prednisone 20 mg tablet RxNorm: 259939 3 Tablet(s) PO daily 04/02/2014 04/05/2014 Inactive [SAVINGS FOR UNINSURED PATIENTS -- BIN:924597, PCN: ASPROD1, Group: AME08, ID# [id number], Process claim through [employer], for questions: . THIS IS NOT INSURANCE.] cefdinir 300 mg capsule RxNorm: 859651 1 Capsule(s) PO BID 04/02/2014 04/11/2014 Inactive [SAVINGS FOR UNINSURED PATIENTS -- BIN:443906, PCN: ASPROD1, Group: AME08, ID# [id number], Process claim through [employer], for questions: . THIS IS NOT INSURANCE.] Kenalog 40 mg/mL suspension for injection RxNorm: 7703299 Milliliter(s) Inj 04/02/2014 04/02/2014 Inactive [SAVINGS FOR UNINSURED PATIENTS -- BIN:442224, PCN: ASPROD1, Group: AME08, ID# [id number], Process claim through [employer], for questions: . THIS IS NOT INSURANCE.] ceftriaxone 500 mg solution for injection RxNorm: 781090 Inj 04/02/2014 04/02/2014 Inactive [SAVINGS FOR UNINSURED PATIENTS -- BIN:798192, PCN: ASPROD1, Group: AME08, ID# [id number], Process claim through [employer], for questions: . THIS IS NOT INSURANCE.] albuterol sulfate 2.5 mg/0.5 mL solution for nebulization RxNorm: 799250 1 treatment INH QID and as needed for dyspnea 04/02/2014 05/31/2014 Inactive [SAVINGS FOR UNINSURED PATIENTS -- BIN:834449, PCN: ASPROD1, Group: AME08, ID# [id number], Process claim through [employer], for questions: . THIS IS NOT INSURANCE.] azithromycin 500 mg tablet RxNorm: 981424 1 Tablet(s) PO daily 04/02/2014 04/06/2014 Inactive [SAVINGS FOR UNINSURED PATIENTS -- BIN:857394, PCN: ASPROD1, Group: AME08, ID# [id number], Process claim through [employer], for questions: . THIS IS NOT INSURANCE.] omeprazole 20 mg capsule,delayed release RxNorm: 073473 1 Tablet(s) PO daily 1 Capsule(s) PO daily 02/26/2014 06/25/2014 Inactive Xanax 0.25 mg tablet RxNorm: 180379 1 Tablet(s) PO BID PRN as needed 02/01/2014 04/03/2014 Inactive [SAVINGS FOR UNINSURED PATIENTS -- BIN:190234, PCN: ASPROD1, Group: AME08, ID# [id number], Process claim through [employer], for questions: . THIS IS NOT INSURANCE.] Xanax 0.25 mg tablet RxNorm: 617685 1 Tablet(s) PO HS PRN as needed 01/04/2014 01/31/2014 Inactive [SAVINGS FOR UNINSURED PATIENTS -- BIN:040860, PCN: ASPROD1, Group: AME08, ID# [id number], Process claim through [employer], for questions: . THIS IS NOT INSURANCE.] pravastatin 10 mg tablet RxNorm: 403554 1 Tablet(s) PO QHS 12/21/2013 12/20/2013 Inactive pravastatin 10 mg tablet RxNorm: 096114 1 Tablet(s) PO QHS 12/21/2013 07/18/2014 Inactive [SAVINGS FOR UNINSURED PATIENTS -- BIN:092012, PCN: ASPROD1, Group: AME08, ID# [id number], Process claim through [employer], for questions: . THIS IS NOT INSURANCE.] Hytrin 1 mg tablet RxNorm: 301328 1 Tablet(s) PO BID 12/21/2013 04/08/2015 Inactive [SAVINGS FOR UNINSURED PATIENTS -- BIN:506222, PCN: ASPROD1, Group: AME08, ID# [id number], Process claim through [employer], for questions: . THIS IS NOT INSURANCE.] Hytrin 1 mg tablet RxNorm: 455595 1 Tablet(s) PO daily 12/18/2013 12/20/2013 Inactive [SAVINGS FOR UNINSURED PATIENTS -- BIN:807328, PCN: ASPROD1, Group: AME08, ID# [id number], Process claim through [employer], for questions: . THIS IS NOT INSURANCE.] sertraline 100 mg tablet RxNorm: 220718 1 Tablet(s) PO QHS 12/14/2013 12/08/2014 Inactive [SAVINGS FOR UNINSURED PATIENTS -- BIN:189419, PCN: ASPROD1, Group: AME08, ID# [id number], Process claim through [employer], for questions: . THIS IS NOT INSURANCE.] Xanax 0.25 mg tablet RxNorm: 698453 1 Tablet(s) PO HS PRN as needed 12/13/2013 01/03/2014 Inactive [SAVINGS FOR UNINSURED PATIENTS -- BIN:632895, PCN: ASPROD1, Group: AME08, ID# [id number], Process claim through [employer], for questions: . THIS IS NOT INSURANCE.] tramadol 50 mg tablet RxNorm: 215816 2 Tablet(s) PO BID 11/08/2013 04/24/2015 Inactive Xanax 0.25 mg tablet RxNorm: 497352 1 Tablet(s) PO HS PRN as needed 10/19/2013 10/18/2013 Inactive Xanax 0.25 mg tablet RxNorm: 143198 1 Tablet(s) PO HS PRN as needed 10/19/2013 12/12/2013 Inactive Carafate 1 gram tablet RxNorm: 419440 Tablet(s) PO dissolve 1 tab QID x 1 week, then TID x 1 week, then BID x 1 week 09/07/2013 02/26/2015 Inactive omeprazole 20 mg capsule,delayed release RxNorm: 466344 1 Capsule(s) PO daily 09/07/2013 09/06/2013 Inactive omeprazole 20 mg capsule,delayed release RxNorm: 019666 1 Capsule(s) PO daily 09/07/2013 02/26/2014 Inactive prednisone 10 mg tablet RxNorm: 826185 1 Tablet(s) PO 08/25/2013 12/13/2013 Inactive prednisone taper Zithromax Z-Bon 250 mg tablet RxNorm: 648851 Tablet(s) PO as directed 08/25/2013 12/13/2013 Inactive Zithromax Z-Bon 250 mg tablet RxNorm: 676415 Tablet(s) PO as directed 08/04/2013 08/24/2013 Inactive Xanax 0.25 mg tablet RxNorm: 998823 1 Tablet(s) PO HS PRN 08/01/2013 10/18/2013 Inactive Kenalog 40 mg/mL suspension for injection RxNorm: 8900157 Milliliter(s) Inj 08/01/2013 08/01/2013 Inactive tramadol 50 mg tablet RxNorm: 721639 2 Tablet(s) PO BID 05/02/2013 11/07/2013 Inactive carvedilol 25 mg tablet RxNorm: 933330 1 Tablet(s) PO BID 05/02/2013 12/13/2013 Inactive magnesium oxide 400 mg tablet RxNorm: 237787 1 Tablet(s) PO daily 05/02/2013 04/26/2014 Inactive furosemide 20 mg tablet RxNorm: 653938 2 Tablet(s) PO daily 05/02/2013 2014 Inactive amlodipine 5 mg tablet RxNorm: 589713 1 Tablet(s) PO BID 05/02/2013 04/26/2014 Inactive sertraline 100 mg tablet RxNorm: 266171 1 Tablet(s) PO BID 05/02/2013 12/13/2013 Inactive ropinirole 1 mg tablet RxNorm: 527791 1 Tablet(s) PO QPM 05/02/2013 04/26/2014 Inactive pantoprazole 40 mg tablet,delayed release RxNorm: 592756 1 Tablet(s) PO daily 05/02/2013 2014 Inactive gabapentin 600 mg tablet RxNorm: 083991 1 Tablet(s) PO BID 05/02/2013 2014 Inactive aspirin 81 mg tablet,delayed release RxNorm: 502866 1 Tablet(s) PO daily No Start Date Active ferrous fumarate 325 mg (106 mg iron) tablet RxNorm: 965945 1 Tablet(s) PO daily No Start Date 2014 Inactive amlodipine 5 mg tablet RxNorm: 341033 1 Tablet(s) PO BID No Start Date 05/01/2013 Inactive Vitamin B-12 2,500 mcg sublingual tablet RxNorm: 903761 1 Tablet(s) SL daily No Start Date 2014 Inactive Zithromax Z-Bon 250 mg tablet RxNorm: 698613 Tablet(s) PO as directed No Start Date 08/03/2013 Inactive sertraline 100 mg tablet RxNorm: 627051 1 Tablet(s) PO BID No Start Date 05/01/2013 Inactive Hytrin 1 mg tablet RxNorm: 529111 1 Tablet(s) PO BID No Start Date 12/17/2013 Inactive potassium chloride ER 10 mEq capsule,extended release RxNorm: 045817 1 Capsule(s) PO QDAY PRN No Start Date 06/17/2016 Inactive Xanax 0.25 mg tablet RxNorm: 034370 1 Tablet(s) PO HS PRN No Start Date 07/31/2013 Inactive gabapentin 600 mg tablet RxNorm: 829938 1 Tablet(s) PO BID No Start Date 05/01/2013 Inactive ropinirole 1 mg tablet RxNorm: 484690 1 Tablet(s) PO QPM No Start Date 05/01/2013 Inactive Vitamin D3 1,000 unit tablet RxNorm: 932592 2 Tablet(s) PO daily No Start Date 09/11/2015 Inactive furosemide 20 mg tablet RxNorm: 354474 1 Tablet(s) PO BID No Start Date 05/01/2013 Inactive tramadol 50 mg tablet RxNorm: 328696 2 Tablet(s) PO BID No Start Date 05/01/2013 Inactive Carafate 1 gram tablet RxNorm: 496848 Tablet(s) PO dissolve 1 tab QID x 1 week, then TID x 1 week, then BID x 1 week No Start Date 09/06/2013 Inactive pantoprazole 40 mg tablet,delayed release RxNorm: 158662 1 Tablet(s) PO daily No Start Date 05/01/2013 Inactive montelukast 10 mg tablet RxNorm: 040924 1 Tablet(s) PO QHS No Start Date 04/23/2016 Inactive magnesium oxide 400 mg tablet RxNorm: 851374 1 Tablet(s) PO daily No Start Date 05/01/2013 Inactive prednisone 10 mg tablet RxNorm: 839777 1 Tablet(s) PO No Start Date 08/24/2013 Inactive prednisone taper carvedilol 25 mg tablet RxNorm: 778444 1 Tablet(s) PO BID No Start Date 05/01/2013 Inactive baclofen 10 mg tablet RxNorm: 198170 2 Tablet(s) PO daily No Start Date 12/13/2013 Inactive Vitamin B Complex capsule RxNorm: 1 Capsule(s) PO daily No Start Date 2014 Inactive Medication Administered Medication Codes Instructions Start Date Status Kenalog 40 mg/mL suspension for injection RxNorm: 1513070 Milliliter 09/15/2016 No longer Active Kenalog 40 mg/mL suspension for injection RxNorm: 4618552 Milliliter 04/02/2014 No longer Active ceftriaxone 500 mg solution for injection RxNorm: 949973 04/02/2014 No longer Active Kenalog 40 mg/mL suspension for injection RxNorm: 7320654 Milliliter 08/01/2013 No longer Active Immunizations Vaccine [...] 3 (moderate) ICD-10: N18.3 ICD-9: 585.3 10/26/2017 Localized edema ICD-10: R60.0 ICD-9: 782.3 10/06/2017 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 ICD-9: 082.41 10/10/2015 Irritable bowel syndrome with diarrhea ICD-10: K58.0 ICD-9: 564.1 10/10/2015 Other fatigue ICD-10: R53.83 ICD-9: 780.79 09/12/2015 Iron deficiency ICD-10: E61.1 ICD-9: 280.9 09/12/2015 Other vitamin B12 deficiency anemias ICD-10: D51.8 ICD-9: 281.1 09/12/2015 Vitamin D deficiency, unspecified ICD-10: E55.9 ICD-9: 268.9 09/12/2015 Bitten or stung by nonvenomous insect and other nonvenomous arthropods, initial encounter ICD-10: W57.XXXA ICD-9: 919.4 09/12/2015 ESSENTIAL HYPERTENSION ICD-9: 401.9 10/05/2014 Iron deficiency anemia ICD-9: 280.9 09/07/2014 Easy bruising ICD-9: 782.9 09/07/2014 Chronic kidney disease, stage 3 ICD-9: 585.3 09/07/2014 Shingles ICD-9: 053.9 07/16/2014 PNEUMONIA (CAP) ICD-9: 486 04/02/2014 COUGH ICD-9: 786.2 04/02/2014 OTH SCREENING MAMMOGRAM ICD-9: V76.12 12/27/2013 EDEMA ICD-9: 782.3 12/14/2013 Rib pain on left side ICD-9: 786.50 12/14/2013 ALLERGIC RHINITIS ICD-9: 477.9 08/01/2013 Elbow pain, right ICD-9: 719.42 08/01/2013 Snoring ICD-9: 786.09 08/01/2013 Urge incontinence ICD-9: 788.31 08/01/2013 ESOPHAGEAL REFLUX ICD-9: 530.81 08/01/2013 HYPERLIPIDEMIA ICD-9: 272.4 05/02/2013 Restless leg [...] Code Item Item Code Result Date Mayda 816384 MAYDA (OMRTEZA) SCREEN NONE DETECTED 06/25/2017 Ra Factor Fyw548 RA FACTOR <10 IU/ml 06/24/2017 D-Dimer D-DIMER 675 ng/mL 06/09/2017 D-Dimer COMMENT 06/09/2017 Tsh Ord6 TSH (3rd IS) 2.05 uIU/mL 06/08/2017 Cbc With Differential Ord2 WBC 5.65 K/ul 06/01/2017 Cbc With Differential Ord2 RBC 4.82 M/ul 06/01/2017 Cbc With Differential Ord2 HGB 13.8 g/dl 06/01/2017 Cbc With Differential Ord2 Neut% 53.7 % 06/01/2017 Cbc With Differential Ord2 HCT 41.9 % 06/01/2017 Cbc With Differential Ord2 MCV 86.9 fl 06/01/2017 Cbc With Differential Ord2 Lymph% 38.4 % 06/01/2017 Cbc With Differential Ord2 MCH 28.6 pg 06/01/2017 Cbc With Differential Ord2 [place]% 5.8 % 06/01/2017 Cbc With Differential Ord2 [...] 2.17 K/ul 06/01/2017 Cbc With Differential Ord2 [place] ABS# 0.3 K/ul 06/01/2017 Cbc With Differential Ord2 Eos ABS# 0.1 K/ul 06/01/2017 Cbc With Differential Ord2 Baso ABS# 0.1 K/ul 06/01/2017 Comp Metabolic Hbi967 NA 137 mEq/L 06/01/2017 Comp Metabolic Gkf818 K 3.7 mEq/L 06/01/2017 Comp Metabolic Owr331 CL 100 mEq/L 06/01/2017 Comp Metabolic Aqp860 CO2 28.0 mEq/L 06/01/2017 Comp Metabolic Hnx144 ANION GAP 13 06/01/2017 Comp Metabolic Dey675 GLUCOSE 94 mg/dL 06/01/2017 Comp Metabolic Vwn688 Creat 1.3 mg/dL 06/01/2017 Comp Metabolic Zdm271 eGFR 45 ml/min/1.73m2 06/01/2017 Comp Metabolic Bdz775 BUN 12 mg/dL 06/01/2017 Comp Metabolic Lrj228 B/C Ratio 9.6 Ratio 06/01/2017 Comp Metabolic Kjm790 CALCIUM 9.5 mg/dL 06/01/2017 Comp Metabolic Idv843 ALK PHOS 77 U/L 06/01/2017 Comp Metabolic Jml687 AST(SGOT) 17 U/L 06/01/2017 Comp Metabolic Vfu056 ALT(SGPT) 15 U/L 06/01/2017 Comp Metabolic Sxm844 BILI T 0.5 mg/dL 06/01/2017 Comp Metabolic Sxw130 ALBUMIN 4.4 g/dL 06/01/2017 Comp Metabolic Rlm103 TPRO 7.0 g/dL 06/01/2017 Comp Metabolic Gxl953 GLOB 2.6 g/dL 06/01/2017 Comp Metabolic Sno374 A/G Ratio 1.7 Ratio 06/01/2017 Comp Metabolic Xdt378 Osmo 273 mOsmo 06/01/2017 Mayda [id number] MAYDA (MORTEZA) SCREEN NONE DETECTED 06/22/2016 C-Reactive Protein Qnt Crqnt CRP 0.3 mg/dl 06/19/2016 Sed Rate Ord21 ESR 11 mm/hr 06/19/2016 Ra Factor Fft537 RA FACTOR <10 IU/ml 06/19/2016 Sed Rate Ord21 ESR 14 mm/hr 02/25/2016 C-Reactive Protein Qnt Crqnt CRP 0.3 mg/dl 02/25/2016 Comp Metabolic Cgn356 NA 136 mEq/L 02/25/2016 Comp Metabolic Ypy294 K 3.9 mEq/L 02/25/2016 Comp Metabolic Ogq994 CL 103 mEq/L 02/25/2016 Comp Metabolic Oxg355 CO2 27.0 mEq/L 02/25/2016 Comp Metabolic Zjq119 ANION GAP 10 02/25/2016 Comp Metabolic Zkq787 GLUCOSE 82 mg/dL 02/25/2016 Comp Metabolic Gyz467 Creat 1.3 mg/dL 02/25/2016 Comp Metabolic Vss762 eGFR 45 ml/min/1.73m2 02/25/2016 Comp Metabolic Owy239 BUN 13 mg/dL 02/25/2016 Comp Metabolic Udo972 B/C Ratio 10.3 Ratio 02/25/2016 Comp Metabolic Ofz349 CALCIUM 9.5 mg/dL 02/25/2016 Comp Metabolic Hls240 ALK PHOS 70 U/L 02/25/2016 Comp Metabolic Cja642 AST(SGOT) 17 U/L 02/25/2016 Comp Metabolic Wsc978 ALT(SGPT) 13 U/L 02/25/2016 Comp Metabolic Atb765 BILI T 0.4 mg/dL 02/25/2016 Comp Metabolic Dke546 ALBUMIN 4.2 g/dL 02/25/2016 Comp Metabolic Yua193 TPRO 6.6 g/dL 02/25/2016 Comp Metabolic Ydx315 GLOB 2.4 g/dL 02/25/2016 Comp Metabolic Oub460 A/G Ratio 1.7 Ratio 02/25/2016 Comp Metabolic Rnl545 Osmo 271 mOsmo 02/25/2016 Cbc With Differential [...] 29.1 pg 02/25/2016 Cbc With Differential Ord2 [place]% 6.8 % 02/25/2016 Cbc With Differential Ord2 [...] 1.62 K/ul 02/25/2016 Cbc With Differential Ord2 [place] ABS# 0.4 K/ul 02/25/2016 Cbc With Differential Ord2 Eos ABS# 0.1 K/ul 02/25/2016 Cbc With Differential Ord2 Baso ABS# 0.0 K/ul 02/25/2016 Tsh Ord6 hTSH II 1.63 uIU/mL 02/25/2016 [place] Spotted Fever Igg/Igm 045357 BEN[place] SPOTTED FEVER IGM EIA . 09/17/2015 [place] Spotted Fever Igg/Igm 375516 RMSF, IGM 0.27 index 09/17/2015 [place] Spotted Fever Igg/Igm 260519 BENIGNO MT SPOTTED FEVER IGG EIA FLEX . 09/17/2015 [place] Spotted Fever Igg/Igm 155022 RMSF, IGG SCREEN-FLEX Negative 09/17/2015 Ehrlichia Chaffeensis Antibody Igm 999137 EHRLICHIA CHAFFEENSIS IGM < 1:16 09/16/2015 Ehrlichia Chaffeensis Antibody Igg 567349 EHRLICHIA CHAFFEENSIS IGG 1:256 09/16/2015 Lymes Disease Total Antibodies With Western Blot Reflex [id number] B. BURGDORFERI, IGG/IGM 0.10 LI 09/14/2015 Lymes Disease Total Antibodies With Western Blot Reflex [id number] 09/14/2015 Vitamin D 25 Oh Kao3921 VITAMIN D, 25 HYDROXY 59.60 ng/mL 09/13/2015 Sed Rate Ord21 ESR 10 mm/hr 09/12/2015 Comp Metabolic Wfk066 NA 139 mEq/L 09/12/2015 Comp Metabolic Kbm726 K 3.8 mEq/L 09/12/2015 Comp Metabolic Qmc681 CL 103 mEq/L 09/12/2015 Comp Metabolic Qig635 CO2 27.0 mEq/L 09/12/2015 Comp Metabolic Psg105 ANION GAP 13 09/12/2015 Comp Metabolic Kgi402 GLUCOSE 91 mg/dL 09/12/2015 Comp Metabolic Dvm258 Creat 1.2 mg/dL 09/12/2015 Comp Metabolic Bvm792 eGFR 47 ml/min/1.73m2 09/12/2015 Comp Metabolic Iep556 BUN 20 mg/dL 09/12/2015 Comp Metabolic Zwz422 B/C Ratio 16.3 Ratio 09/12/2015 Comp Metabolic Pwt518 CALCIUM 9.3 mg/dL 09/12/2015 Comp Metabolic Pfn811 ALK PHOS 55 U/L 09/12/2015 Comp Metabolic Cws972 AST(SGOT) 19 U/L 09/12/2015 Comp Metabolic Lio127 ALT(SGPT) 14 U/L 09/12/2015 Comp Metabolic Yfv231 BILI T 0.6 mg/dL 09/12/2015 Comp Metabolic Bmz663 ALBUMIN 4.3 g/dL 09/12/2015 Comp Metabolic Fie029 TPRO 6.8 g/dL 09/12/2015 Comp Metabolic Kxe710 GLOB 2.5 g/dL 09/12/2015 Comp Metabolic Mzx573 A/G Ratio 1.8 Ratio 09/12/2015 Comp Metabolic Dfj632 Osmo 280 mOsmo 09/12/2015 B12 Oud423 B12 >1500.00 pg/ml 09/12/2015 Cbc With Differential [...] 87.4 fl 09/12/2015 Cbc With Differential Ord2 MCH 28.9 pg 09/12/2015 Cbc With Differential Ord2 [place]% 5.9 % 09/12/2015 Cbc With Differential Ord2 [...] 1.33 K/ul 09/12/2015 Cbc With Differential Ord2 [place] ABS# 0.3 K/ul 09/12/2015 Cbc With Differential [...] lips 09/27/2017 None Full Exam - General 1995 Ears/Nose/Throat lips/teeth/gingiva Overall: normal dentition 09/27/2017 None Full Exam - General 1995 Ears/Nose/Throat lips/teeth/gingiva Overall: benign gingiva 09/27/2017 None [...] Full Exam - General 1994 Neurologic coordination Npjugj-wwyz-zfopgw testing - left: dysmetria 05/11/2017 None Full Exam - General 1994 Neurologic coordination Kkubrp-sdbn-wuhrqe testing - right: dysmetria 05/11/2017 None Full [...] Full Exam - General 1994 Neurologic coordination Crlfff-byzd-untquc testing - left: dysmetria 04/20/2016 None Full Exam - General 1994 Neurologic coordination Xtfzzj-mvcg-rpsmen testing - right: dysmetria 04/20/2016 None Full [...] Full Exam - General 1994 Neurologic coordination Rfhlqf-jncd-xwrooh testing - left: dysmetria 02/25/2016 None Full Exam - General 1994 Neurologic coordination Hderda-pbhm-btuswz testing - right: dysmetria 02/25/2016 None Full [...] Full Exam - General 1994 Neurologic coordination Iazdae-ppeq-qrhvpt testing - left: dysmetria 01/28/2016 None Full Exam - General 1994 Neurologic coordination Fzpvqw-xjum-rtovyd testing - right: dysmetria 01/28/2016 None Full [...] palp - head/face Lesion: excoriation 07/16/2014 right worship, redness right eyelid Full Exam - Dermatology [...] Procedure Codes Date THER/PROPH/DIAG INJ SC/IM CPT-4: 87923 09/15/2016 TRIAMCINOLONE ACET INJ NOS CPT-4: J3301 09/15/2016 ADMIN INFLUENZA VIRUS VAC CPT-4: G0008 01/08/2016 ADMIN PNEUMOCOCCAL VACCINE SNOMED CT: 90628783 CPT-4: G0009 01/08/2016 PNEUMOCOCCAL VACC 13 RIVERA IM Formatting Model/CDA Sections, Assigned to/Aliya Muñoz SNOMED CT: 02153433 CPT-4: 73631Ntcyicc 01/08/2016 FLU VACC 4 RIVERA 3 YRS PLUS IM SNOMED CT: 76110888 CPT-4: 57023 01/08/2016 THER/PROPH/DIAG INJ SC/IM CPT-4: 03983 04/02/2014 TRIAMCINOLONE ACET INJ NOS CPT-4: J3301 04/02/2014 ROCEPHIN, PER 250 MG CPT- 4: J0696 04/02/2014 TRIAMCINOLONE ACET INJ NOS CPT-4: J3301 08/01/2013 THER/PROPH/DIAG INJ SC/IM CPT-4: 60766 08/01/2013 Vital Signs Date Vital 01/25/2018 Blood Pressure 1: 130/68 Code: 8480-6 BMI: 34.4 Code: 50775-3 Heart Rate 1: 91 bpm Height: 5'5" SpO2: 95% Weight: 207 lbs 10/06/2017 Blood Pressure 1: 118/78 Code: 8480-6 BMI: 34.3 Code: 01445-0 Heart Rate 1: 75 bpm Height: 5'5" SpO2: 98% Weight: 206 lbs 09/27/2017 Blood Pressure 1: 136/88 Code: 8480-6 BMI: 35.4 Code: 84047-3 Heart Rate 1: 86 bpm Height: 5'5" SpO2: 98% Weight: 213 lbs 07/23/2017 Blood Pressure 1: 106/58 Code: 8480-6 BMI: 34.8 Code: 08706-8 Heart Rate 1: 70 bpm Height: 5'5" SpO2: 96% Weight: 209 lbs 06/01/2017 Blood Pressure 1: 150/96 Code: 8480-6 BMI: 34.4 Code: 52247-7 Heart Rate 1: 82 bpm Height: 5'5" SpO2: 99% Weight: 207 lbs 05/11/2017 Blood Pressure 1: 144/90 Code: 8480-6 BMI: 34.6 Code: 40524-1 Heart Rate 1: 76 bpm Height: 5'5" SpO2: 98% Weight: 208 lbs 10/30/2016 Blood Pressure 1: 158/98 Code: 8480-6 Blood Pressure 1: 172/104 Code: 8480-6 BMI: 34.7 Code: 04119-2 Heart Rate 1: 70 bpm Height: 5'5" SpO2: 97% Temperature: 36.2 (C) / 97.1 (F) Weight: 208 lbs 10 oz 04/20/2016 Blood Pressure 1: 144/86 Code: 8480-6 BMI: 34.3 Code: 80195-6 Heart Rate 1: 68 bpm Height: 5'5" SpO2: 97% Weight: 206 lbs 02/25/2016 Blood Pressure 1: 122/82 Code: 8480-6 BMI: 34.4 Code: 40007-9 Heart Rate 1: 86 bpm Height: 5'5" SpO2: 94% Weight: 207 lbs 01/28/2016 Blood Pressure 1: 128/86 Code: 8480-6 BMI: 33.3 Code: 01892-0 Heart Rate 1: 86 bpm Height: 5'5" SpO2: 96% Weight: 200 lbs 11/14/2015 Blood Pressure 1: 140/90 Code: 8480-6 Blood Pressure 1: 138/88 Code: 8480-6 BMI: 33.3 Code: 56034-2 Heart Rate 1: 98 bpm Height: 5'5" SpO2: 97% Weight: 200 lbs 10/10/2015 Blood Pressure 1: 132/80 Code: 8480-6 BMI: 33.3 Code: 95489-9 Heart Rate 1: 74 bpm Height: 5'5" SpO2: 96% Weight: 200 lbs 09/12/2015 Blood Pressure 1: 148/90 Code: 8480-6 BMI: 32.9 Code: 68096-1 Heart Rate 1: 94 bpm Height: 5'5" SpO2: 97% Weight: 198 lbs 04/09/2015 Blood Pressure 1: 160/82 Code: 8480-6 Blood Pressure 1: 130/84 Code: 8480-6 BMI: 32.4 Code: 24317-5 Heart Rate 1: 74 bpm Height: 5'5" SpO2: 95% Weight: 195 lbs 10/05/2014 Blood Pressure 1: 140/80 Code: 8480-6 BMI: 30.5 Code: 44155-5 Heart Rate 1: 79 bpm Height: 5'5" SpO2: 98% Weight: 183 lbs 09/07/2014 Blood Pressure 1: 142/96 Code: 8480-6 BMI: 32.1 Code: 34386-2 Heart Rate 1: 72 bpm Height: 5'5" SpO2: 98% Temperature: 36.5 (C) / 97.7 (F) Weight: 193 lbs 07/16/2014 Blood Pressure 1: 138/82 Code: 8480-6 BMI: 31.8 Code: 55857-7 Heart Rate 1: 76 bpm Height: 5'5" Weight: 191 lbs 04/02/2014 Blood Pressure 1: 148/90 Code: 8480-6 BMI: 33.8 Code: 77634-5 Heart Rate 1: 68 bpm Height: 5'5" Temperature: 36.9 (C) / 98.4 (F) Weight: 203 lbs 12/14/2013 Blood Pressure 1: 140/88 Code: 8480-6 BMI: 35.3 Code: 23497-3 Heart Rate 1: 91 bpm Height: 5'5" SpO2: 97% Weight: 212 lbs 08/01/2013 Blood Pressure 1: 126/68 Code: 8480-6 BMI: 35.1 Code: 11971-3 Heart Rate 1: 76 bpm Height: 5'5" Temperature: 36.7 (C) / 98.1 (F) Weight: 211 lbs 05/02/2013 Blood Pressure 1: 118/86 Code: 8480-6 BMI: 34.9 Code: 06050-7 Heart Rate 1: 76 bpm Height: 5'5" Weight: 209 lbs 8 oz 04/18/2013 Blood Pressure 1: 118/60 Code: 8480-6 BMI: 35.3 Code: 90794-0 Heart Rate 1: 68 bpm Height: 5'5" [...] data Encounters Encounter Performer Location Codes Date ([id number]) 91187 EST. PATIENT, LEVEL III Diagnosis: Essential (primary) hypertension[ICD10: I10] Marilyn Lao MD, [facility] CPT-4: 99345 01/25/2018 ([id number]) 48632 EST. 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 PATIENT, LEVEL IV Diagnosis: Essential (primary) hypertension[ICD10: I10] Diagnosis: Localized edema[ICD10: R60.0] Marilyn Lao MD, [facility] CPT-4: 37571 09/27/2017 ([id number]) 91326 EST. PATIENT, LEVEL IV Diagnosis: Generalized anxiety disorder[ICD10: F41.1] Diagnosis: Essential (primary) hypertension[ICD10: I10] Diagnosis: Chronic pain syndrome[ICD10: G89.4] Noa Lao MD, [facility] CPT-4: 40047 07/23/2017 ([id number]) 99218 EST. PATIENT, LEVEL IV Diagnosis: Essential (primary) hypertension[ICD10: I10] Diagnosis: Chest pain, unspecified[ICD10: R07.9] Diagnosis: Chronic kidney disease, stage 3 (moderate)[ICD10: N18.3] Noa Lao MD, [facility] CPT-4: 80943 06/01/2017 [id number] EST. PATIENT, LEVEL IV Diagnosis: Gastro-esophageal reflux disease without esophagitis[ICD10: K21.9] Anais Lao MD, [facility] CPT-4: 20154 05/11/2017 ([id number]) 93726 EST. PATIENT, LEVEL III Diagnosis: Essential (primary) hypertension[ICD10: I10] Diagnosis: Contusion of right lower leg, initial encounter[ICD10: S80.11XA] Noa Lao MD, [facility] CPT-4: 20913 10/30/2016 ([id number]) 77974 EST. PATIENT, LEVEL IV Diagnosis: Essential (primary) hypertension[ICD10: I10] Diagnosis: Generalized anxiety disorder[ICD10: F41.1] Marilyn Lao MD, [facility] CPT-4: 25692 04/20/2016 ([id number]) 10502 EST. PATIENT, LEVEL IV Diagnosis: Essential (primary) hypertension[ICD10: I10] Diagnosis: Chronic kidney disease, stage 3 (moderate)[ICD10: N18.3] Diagnosis: Generalized anxiety disorder[ICD10: F41.1] Diagnosis: Major depressive disorder, recurrent, moderate[ICD10: F33.1] Diagnosis: Shortness of breath[ICD10: R06.02] Noa Lao MD, [facility] CPT- 4: 62446 02/25/2016 ([id number]) 68710 EST. PATIENT, LEVEL IV Diagnosis: Generalized anxiety disorder[ICD10: F41.1] Diagnosis: Major depressive disorder, recurrent, moderate[ICD10: F33.1] Diagnosis: Essential (primary) hypertension[ICD10: I10] Diagnosis: Restless legs syndrome[ICD10: G25.81] Diagnosis: Myalgia[ICD10: M79.1] Noa Lao MD, [facility] CPT-4: 46389 01/28/2016 ([id number] 93936 EST. PATIENT, LEVEL III Diagnosis: Essential (primary) hypertension[ICD10: I10] Diagnosis: Insomnia, unspecified[ICD10: G47.00] Noa Lao MD, [facility] CPT-4: 41762 11/14/2015 ([id number]) 55450 EST. 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 PATIENT, LEVEL IV Diagnosis: Bitten or stung by nonvenomous insect and other nonvenomous arthropods, initial encounter[ICD10: W57.XXXA] Diagnosis: Other fatigue[ICD10: R53.83] Diagnosis: Vitamin D deficiency, unspecified[ICD10: E55.9] Diagnosis: Other vitamin B12 deficiency anemias[ICD10: D51.8] Diagnosis: Essential (primary) hypertension[ICD10: I10] Diagnosis: Iron deficiency[ICD10: E61.1] Noa Lao MD, [facility] CPT-4: 61353 09/12/2015 ([id number]) 21948 EST. PATIENT, LEVEL III Diagnosis: Essential (primary) hypertension[ICD10: I10] Diagnosis: Chronic kidney disease, stage 3 (moderate)[ICD10: N18.3] Noa Lao MD, [facility] CPT-4: 85914 04/09/2015 ([id number]) 03768 EST. PATIENT, LEVEL III Diagnosis: ESSENTIAL HYPERTENSION[ICD9: 401.9] Noa Lao MD, [facility] CPT-4: 20492 10/05/2014 ([id number]) 60961 EST. PATIENT, LEVEL IV Diagnosis: Easy bruising[ICD9: 782.9] Diagnosis: Iron deficiency anemia[ICD9: 280.9] Diagnosis: ESSENTIAL HYPERTENSION[ICD9: 401.9] Diagnosis: Chronic kidney disease, stage 3[ICD9: 585.3] Noa Lao MD, [facility] CPT-4: 72199 09/07/2014 ([id number]) 64793 EST. PATIENT, LEVEL III Diagnosis: Shingles[ICD9: 053.9] Marilyn Lao MD, [facility] CPT-4: 32673 07/16/2014 ([id number]) 97249 EST. PATIENT, LEVEL III Diagnosis: PNEUMONIA (CAP)[ICD9: 486] Diagnosis: COUGH[ICD9: 786.2] Marilyn Lao MD, [facility] CPT-4: 68535 04/02/2014 ([id number]) 17737 EST. PATIENT, LEVEL III Diagnosis: ESSENTIAL HYPERTENSION[ICD9: 401.9] Diagnosis: Rib pain on left side[ICD9: 786.50] Diagnosis: EDEMA[ICD9: 782.3] Noa Lao MD, [facility] CPT-4: 51034 12/14/2013 ([id number]) 30135 EST. PATIENT, LEVEL IV Diagnosis: ESOPHAGEAL REFLUX[ICD9: 530.81] Diagnosis: Urge incontinence[ICD9: 788.31] Diagnosis: Elbow pain, right[ICD9: 719.42] Diagnosis: Snoring[ICD9: 786.09] Marilyn Lao MD, [facility] CPT-4: 68597 08/01/2013 ([id number]) 95890 EST. PATIENT, LEVEL IV Diagnosis: ESSENTIAL HYPERTENSION[SNOMED: 76436301] Diagnosis: EDEMA[ICD9: 782.3] Diagnosis: Chronic renal insufficiency, stage III (moderate)[ICD9: 585.3] Diagnosis: HYPERLIPIDEMIA[ICD9: 272.4] Marilyn Lao MD, [facility] CPT-4: 53123 05/02/2013 ([id number]) 80875 EST. PATIENT, LEVEL IV Diagnosis: ESSENTIAL HYPERTENSION[SNOMED: 78846709] Diagnosis: Restless leg[ICD9: 333.94] [facility] CPT-4: 78940 04/18/2013 Plan of Care Planned Activity Notes Codes Status Date Visit Plan: Hypertension - well controlled - continue with current medications, continue with no added salt diet. Pt has been encouraged to exercise daily. The pt has been advised to call the office if there are any acute concerns about change in blood pressure readings at home. 01/25/2018 Appointment: Marilyn Lao WPtel: [phone] [facility] (15 min) Moderate 01/25/2018 Patient Education: Patient Medication Summary Completed 01/25/2018 Appointment: Marilyn Lao WPtel: [facility] (15 min) Moderate 01/06/2018 Patient Education: Patient Medication Summary Completed 10/26/2017 Care Plan: Comp Metabolic Cancelled 10/26/2017 Visit Plan: Tinea/Onychodystrophy - penlac prescribed, pt did not want to take medication by mouth for treatment. Edema - improved - continue current regimen. 10/06/2017 Appointment: Marilyn Lao WPtel: [facility] (15 min) Moderate 10/06/2017 Patient Education: Patient [...] at home. 09/27/2017 Appointment: Marilyn Lao WPtel: [phone] [phone] (15 min) Moderate 09/27/2017 Patient Education: Patient [...] massage 07/23/2017 Appointment: Noa Orlando WPtel: [phone] [phone] (15 min) Moderate 07/23/2017 Patient Education: Patient [...] worsens 06/01/2017 Appointment: Noa Orlando WPtel: [phone] [phone] (30 min) Complex 06/01/2017 Patient Education: Patient Medication Summary Completed 06/01/2017 Care Plan: Referral Order SNOMED-CT : 511366441 Pending 06/01/2017 Visit Plan: Esophageal Reflux - the patient has been counseled against excessive intake of caffeine, spicy foods, peppermint, and cinnamon - all of which can exacerbate esophageal reflux. The patient is to take med ications as prescribed and call the office if the symptoms are not improving. 05/11/2017 Appointment: Anais Arrieta WPtel: [phone] [phone] (15 min) Moderate 05/11/2017 Patient Education: [...] Summary Completed 09/15/2016 Appointment: Marilyn Lao WPtel: [phone] [phone] (15 min) Moderate 08/19/2016 Patient Education: Patient [...] current medications. 04/20/2016 App[facility]ment[phone] [place] (30 min) Complex 04/20/2016 Patient Education: Patient Medication Summary Completed 04/20/2016 Patient Education: Obesity Completed 04/20/2016 Patient Education: Hypertension Completed 04/20/2016 Appointment: [facility]el[phone] [place] (30 min) Complex 03/16/2016 Referral: Ta [...] for follow up. Chronic renal disease-check labs Cgulcyp-zopuuccagn-mxaiwrnu with cymbalta-continue same dose for now -may take xanax TID PRN Multiple joint pain-check labs including inflammatory markers 02/25/2016 Appointment: Noa Orlando WPtel[phone] (30 min) Complex 02/25/2016 Patient Education: Patient Medication Summary Completed 02/25/2016 Patient Education: Obesity Completed 02/25/2016 Patient Education: Hypertension Completed 02/25/2016 Care Plan: Referral Order SNOMED-CT : 434984369 Pending 02/25/2016 Visit Plan: Anxiety/Depression - the [...] in blood pressure readings at home. Restless gva-kkiewn-cxykomai requip to twice daily-monitor symptoms Myalgias-stop pravastatin 01/28/2016 Appointment: Noa Orlando [facility]Ptel[phone] (30 min) Complex 01/28/2016 Patient Education: Patient [...] Hypertension Completed 10/10/2015 Appointment: [phone] (15 min) Moderate 10/08/2015 Visit Plan: Hypertension - well controlled - continue with current medications, continue with no added salt diet. Pt has been encouraged to exercise daily. The pt has been advised to call the office if there are any acute concerns about change in blood pressure readings at home. 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 Antibiotics started. The pt is aware of the diagnosis and the need for acute treatment of this illness. 04/02/2014 Patient Education: Patient Medication Summary Completed 04/02/2014 Appointment: Marilyn Lao WPtel: [facility] [place] [address] 12/27/2013 Patient Education: Patient Medication Summary Completed [...] further attempt to reduce peripheral edema. Night ypthrq-qtdshvb-bkqmo labs 12/14/2013 Appointment: Follow up 12/14/2013 Patient Education: Patient Medication Summary Completed 12/14/2013 Patient Education: Hypertension Completed 12/14/2013 Appointment: Noa Orlando WPtel: [phone] [place] [address] 12/01/2013 Appointment: Marilyn Lao WPtel: [address] [place] [address] 11/30/2013 Visit Plan: Allergies - chronic - [...] symptoms. 08/01/2013 Appointment: [facility]el[phone] Follow [facility] 08/01/2013 Patient Education: Patient [...] as able. 05/02/2013 Appointment: Marilyn Lao WPtel: [facility] Follow up 05/02/2013 Patient Education: Patient [...] orange juice. 04/18/2013 Appointment: [facility] Lao [facility]Ptel[phone] New [facility] 04/18/2013 Patient Education: Patient [...] in blood pressure readings at home. Restless nse-dyaaji-ighbmhwo requip to twice daily-monitor symptoms Myalgias-stop pravastatin [...] for follow up. Chronic renal disease-check labs Wrmpoxa-qirxryctuz-qrjoctko with cymbalta-continue same dose for now -may [...] at home. Iron deficiency-B12 deficiency-check labs Tick niip-wycbhuy-xtfad tick panel PATIENT IS TO CHECK BLOOD [...] infection or other concerns . 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 Night llvqhg-sqslphb-xrkow labs
[2018-11-04] MEDS ORDERED: MELA1TAB35 PO (16:14)
[2018-11-04] MEDS ORDERED: ALPR0.254 PO (16:14)
[2018-11-04] MEDS ORDERED: LEVO5TAB28 PO (16:14)
[2018-11-04] MEDS ORDERED: ERGO50006 PO (16:14)
--- OUTSIDE RECORDS SUMMARY | 2018-11-04 16:15 | XMS REPORT | CCD ---
Author Author Marilyn Lao Organization Marilyn Lao MD, [facility] Address [address] [place] [address] Phone Care Team Providers Care Return Clerk Name Role Phone PP Unavailable CCM Unavailable Summary Purpose Interface Exchange Insurance Providers Payer name Policy type / Coverage type Covered green party ID Effective Begin Date Effective End Date WPS Medicare Part B Medicare Part B [id number] Unknown [employer] and Life Medicare Part B [id number] Unknown Family history Mother Diagnosis Age At [...] Description Effective Dates Tobacco history SNOMED CT: 425483199 Never smoker but had significant smoke exposure during first marriage, [place]. 08/01/2013 Employment Unknown Retired doing as needed working for the [employer]. 05/02/2013 Marital status Unknown 04/18/[address]: 649535930 Never drinks alcohol 04/18/2013 Has the patient [...] Start Date Stop Date Status Fill Instructions alprazolam 0.5 mg tablet RxNorm: 105689 1/2-1 Tablet(s) PO TID PRN as needed 04/04/2018 06/02/2018 Active Xanax 0.5 mg tablet RxNorm: 982656 1 Tablet(s) PO TID PRN as needed 04/04/2018 07/31/2018 Active tramadol 50 mg tablet RxNorm: 951220 2 Tablet(s) PO BID 12/01/2017 01/29/2018 Inactive Cymbalta 60 mg capsule,delayed release RxNorm: 992549 TAKE ONE CAPSULE BY MOUTH DAILY 11/10/2017 11/04/2018 Active furosemide 40 mg tablet RxNorm: 892227 1 Tablet(s) PO daily 10/26/2017 10/20/2018 Active alprazolam 0.5 mg tablet RxNorm: 461713 1/2-1 Tablet(s) PO TID PRN as needed 10/12/2017 12/10/2017 Inactive Ciclodan 8 % topical solution RxNorm: 4363098 1 Application TOP daily x 7 days, clean off with alcohol then restart cycle of application until fungal infection is completely cleared 10/06/2017 01/03/2018 Inactive omeprazole 20 mg capsule,delayed release RxNorm: 882163 TAKE ONE CAPSULE BY MOUTH DAILY 10/04/2017 01/24/2018 Inactive losartan 100 mg tablet RxNorm: 970721 1 Tablet(s) PO daily 09/27/2017 03/25/2018 Inactive Xanax 0.25 mg tablet RxNorm: 807001 1 Tablet(s) PO TID PRN as needed 08/13/2017 10/11/2017 Inactive Xanax 0.5 mg tablet RxNorm: 936543 1 Tablet(s) PO TID PRN as needed 07/23/2017 11/18/2017 Inactive ropinirole 1 mg tablet RxNorm: 665901 TAKE TWO TABLETS BY MOUTH EVERY NIGHT AT BEDTIME 06/28/2017 06/22/2018 Active montelukast 10 mg tablet RxNorm: 704052 TAKE ONE TABLET BY MOUTH EVERY NIGHT AT BEDTIME 06/28/2017 06/22/2018 Active furosemide 20 mg tablet RxNorm: 221048 TAKE TWO TABLETS BY MOUTH DAILY FOR 7 DAYS THEN TAKE ONE TABLET BY MOUTH DAILY 06/28/2017 10/01/2017 Inactive losartan 50 mg tablet RxNorm: 029616 1 Tablet(s) PO daily 06/01/2017 09/26/2017 Inactive labetalol 100 mg tablet RxNorm: 601926 TAKE ONE TABLET BY MOUTH TWICE A DAY 05/26/2017 05/30/2017 Inactive labetalol 100 mg tablet RxNorm: 481731 1 Tablet(s) PO BID 05/26/2017 05/20/2018 Active Protonix 40 mg tablet,delayed release RxNorm: 192157 1 Tablet(s) PO daily 05/26/2017 05/20/2018 Active amlodipine 5 mg tablet RxNorm: 456086 TAKE ONE TABLET BY MOUTH TWICE A DAY 05/26/2017 09/26/2017 Inactive Carafate 1 gram tablet RxNorm: 772398 1 Tablet(s) PO QID 05/11/2017 09/07/2017 Inactive Protonix 40 mg tablet,delayed release RxNorm: 458483 1 Tablet(s) PO daily 05/11/2017 05/25/2017 Inactive Cymbalta 60 mg capsule,delayed release RxNorm: 499253 TAKE ONE CAPSULE BY MOUTH DAILY 05/05/2017 10/31/2017 Inactive Xanax 0.25 mg tablet RxNorm: 777213 1 Tablet(s) PO TID PRN as needed 02/09/2017 06/07/2017 Inactive Cymbalta 60 mg capsule,delayed release RxNorm: 420879 TAKE ONE CAPSULE BY MOUTH DAILY 10/28/2016 04/25/2017 Inactive Xanax 0.25 mg tablet RxNorm: 315906 1 Tablet(s) PO TID PRN as needed 10/08/2016 12/06/2016 Inactive NEED TO GIVE #90 WITH NEXT REFILL Kenalog 40 mg/mL suspension for injection RxNorm: 5805754 Milliliter(s) Inj 09/15/2016 09/15/2016 Inactive tramadol 50 mg tablet RxNorm: 794641 Tablet(s) TAKE 2 TABLETS BY MOUTH TWICE DAILY 08/18/2016 02/12/2017 Inactive Generic For:ULTRAM 50 MG TABLET N O T I C E Last quantity doesn't match original quantity(Response to an electronic controlled substance refill request - [facility] [id number]) potassium chloride ER 10 mEq capsule,extended release RxNorm: 832334 TAKE ONE CAPSULE BY MOUTH DAILY NEEDED 08/03/2016 01/29/2017 Inactive potassium chloride ER 10 mEq capsule,extended release RxNorm: 454513 1 Capsule(s) PO QDAY PRN 06/18/2016 08/02/2016 Inactive furosemide 20 mg tablet RxNorm: 944408 1 Tablet(s) PO daily as needed for swelling 06/18/2016 06/12/2017 Inactive 2 daily x 1 week then daily Carafate 1 gram tablet RxNorm: 514803 1 Tablet(s) PO daily 04/24/2016 04/18/2017 Inactive Cymbalta 60 mg capsule,delayed release RxNorm: 628464 1 Capsule(s) PO daily 04/24/2016 10/20/2016 Inactive montelukast 10 mg tablet RxNorm: 373682 1 Tablet(s) PO QHS 04/24/2016 04/18/2017 Inactive omeprazole 20 mg capsule,delayed release RxNorm: 935912 Capsule(s) 1 Capsule(s) PO daily 04/24/2016 05/31/2017 Inactive ropinirole 1 mg tablet RxNorm: 031309 2 Tablet(s) PO QHS 04/24/2016 04/18/2017 Inactive furosemide 20 mg tablet RxNorm: 355648 1 Tablet(s) PO daily as needed for swelling 04/24/2016 06/17/2016 Inactive labetalol 100 mg tablet RxNorm: 866380 1 Tablet(s) PO BID 04/24/2016 04/18/2017 Inactive amlodipine 5 mg tablet RxNorm: 874344 Tablet(s) TAKE 1 TABLET BY MOUTH TWICE DAILY 04/24/2016 04/18/2017 Inactive Transferring from [facility] Xanax 0.25 mg tablet RxNorm: 920035 1 Tablet(s) PO TID PRN as needed 02/25/2016 03/25/2016 Inactive NEED TO GIVE #90 WITH NEXT REFILL Xanax 0.25 mg tablet RxNorm: 538620 1 Tablet(s) PO BID PRN as needed 02/19/2016 02/24/2016 Inactive [SAVINGS FOR UNINSURED PATIENTS -- BIN:[id number], PCN: ASPROD1, Group: [id number], ID# [id number], Process claim through GaBoom, for questions: . THIS IS NOT INSURANCE.] Cymbalta 60 mg capsule,delayed release RxNorm: 001879 1 Capsule(s) PO daily 01/28/2016 04/23/2016 Inactive ropinirole 1 mg tablet RxNorm: 214226 1 Tablet(s) PO BID TAKE 1 TABLET BY MOUTH DAILY EVERY NIGHT 01/28/2016 04/23/2016 Inactive Generic For:REQUIP 1 MG TABLET tramadol 50 mg tablet RxNorm: 040162 Tablet(s) TAKE 2 TABLETS BY MOUTH TWICE DAILY 01/16/2016 07/13/2016 Inactive Generic For:ULTRAM 50 MG TABLET N O T I C E Last quantity doesn't match original quantity(Response to an electronic controlled substance refill request - RxReferenceNumber: [id number]) omeprazole 20 mg capsule,delayed release RxNorm: 287088 1 Tablet(s) PO daily 1 Capsule(s) PO daily 12/11/2015 04/23/2016 Inactive pravastatin 10 mg tablet RxNorm: 073550 1 Tablet(s) PO QHS TAKE 1 TABLET BY MOUTH EVERY NIGHT 11/28/2015 01/27/2016 Inactive Generic For:PRAVACHOL 10 MG TABLET furosemide 20 mg tablet RxNorm: 762822 1 Tablet(s) PO daily as needed for swelling 11/12/2015 04/23/2016 Inactive pravastatin 10 mg tablet RxNorm: 041045 1 Tablet(s) PO QHS TAKE 1 TABLET BY MOUTH EVERY NIGHT 11/07/2015 11/27/2015 Inactive Generic For:PRAVACHOL 10 MG TABLET Xanax 0.25 mg tablet RxNorm: 353153 1 Tablet(s) PO BID PRN as needed 10/28/2015 01/25/2016 Inactive [SAVINGS FOR UNINSURED PATIENTS -- BIN:139607, PCN: ASPROD1, Group: [id number], ID# [id number], Process claim through GaBoom, for questions: . THIS IS NOT INSURANCE.] Viberzi 75 mg tablet RxNorm: 6479361 1 Tablet(s) PO BID 10/10/2015 10/10/2015 Inactive doxycycline hyclate 100 mg tablet RxNorm: 670981 1 Tablet(s) PO BID 10/10/2015 10/23/2015 Inactive Vitamins B Complex capsule RxNorm: 1 Capsule(s) PO daily 09/12/2015 No Stop Date Active Vitamin D3 1,000 unit tablet RxNorm: 453299 3-4 Tablet(s) PO daily 09/12/2015 No Stop Date Active Augmentin 500 mg-125 mg tablet RxNorm: 675366 1 Tablet(s) PO BID 07/09/2015 2015 Inactive probiotic one bid x 7 days Augmentin 500 mg-125 mg tablet RxNorm: 310615 1 Tablet(s) PO BID 07/09/2015 07/08/2015 Inactive Xanax 0.25 mg tablet RxNorm: 613694 1 Tablet(s) PO BID PRN as needed 07/01/2015 09/28/2015 Inactive [SAVINGS FOR UNINSURED PATIENTS -- BIN:147853, PCN: ASPROD1, Group: BORIS, ID# [id number], Process claim through GaBoom, for questions: . THIS IS NOT INSURANCE.] sertraline 100 mg tablet RxNorm: 173617 TAKE 1 TABLET BY MOUTH TWICE DAILY 07/01/2015 01/27/2016 Inactive Generic For:*ZOLOFT 100MG TABLET N O T I C E Last quantity doesn't match original quantity amlodipine 5 mg tablet RxNorm: 923632 TAKE 1 TABLET BY MOUTH TWICE DAILY 06/26/2015 04/23/2016 Inactive Generic For:NORVASC 5 MG TABLET N O T I C E Last quantity doesn't match original quantity amlodipine 5 mg tablet RxNorm: 898307 Tablet(s) 1 Tablet(s) PO BID 06/25/2015 06/25/2015 Inactive ropinirole 1 mg tablet RxNorm: 227464 TAKE 1 TABLET BY MOUTH DAILY EVERY NIGHT 05/22/2015 01/27/2016 Inactive Generic For:REQUIP 1 MG TABLET ropinirole 1 mg tablet RxNorm: 933171 Tablet(s) 1 Tablet(s) PO QPM 05/22/2015 05/21/2015 Inactive pravastatin 10 mg tablet RxNorm: 760002 TAKE 1 TABLET BY MOUTH EVERY NIGHT 05/14/2015 11/06/2015 Inactive Generic For:PRAVACHOL 10 MG TABLET tramadol 50 mg tablet RxNorm: 771601 2 Tablet(s) PO BID 04/25/2015 01/18/2016 Inactive labetalol 100 mg tablet RxNorm: 969793 1 Tablet(s) PO BID 04/09/2015 04/23/2016 Inactive omeprazole 20 mg capsule,delayed release RxNorm: 498691 1 Tablet(s) PO daily 1 Capsule(s) PO daily 03/20/2015 12/10/2015 Inactive Carafate 1 gram tablet RxNorm: 036284 Tablet(s) PO UD 4 times daily x 1 week and then PRN 02/27/2015 02/21/2016 Inactive Xanax 0.25 mg tablet RxNorm: 366861 1 Tablet(s) PO BID PRN as needed 02/08/2015 06/06/2015 Inactive [SAVINGS FOR UNINSURED PATIENTS -- BIN:508125, PCN: ASPROD1, Group: [id number], ID# [id number], Process claim through GaBoom, for questions: . THIS IS NOT INSURANCE.] furosemide 20 mg tablet RxNorm: 360675 1 Tablet(s) PO daily as needed for swelling 10/25/2014 02/21/2015 Inactive ok to fill by Dr. Franklin 10-25-14 Xanax 0.25 mg tablet RxNorm: 592104 1 Tablet(s) PO BID PRN as needed 09/25/2014 01/21/2015 Inactive [SAVINGS FOR UNINSURED PATIENTS -- BIN:878755, PCN: ASPROD1, Group: AME08, ID# [id number], Process claim through GaBoom, for questions: . THIS IS NOT INSURANCE.] pravastatin 10 mg tablet RxNorm: 722647 TAKE 1 TABLET BY MOUTH EVERY NIGHT 09/06/2014 04/03/2015 Inactive Generic For:PRAVACHOL 10 MG TABLET tramadol 50 mg tablet RxNorm: 614050 TAKE 2 TABLETS BY MOUTH TWICE DAILY 08/02/2014 01/15/2016 Inactive Generic For:ULTRAM 50 MG TABLET N O T I C E Last quantity doesn't match original quantity(Response to an electronic controlled substance refill request - [facility]: [id number]) tramadol 50 mg tablet RxNorm: 425947 2 Tablet(s) PO BID 08/01/2014 08/02/2014 Inactive acyclovir 400 mg tablet RxNorm: 355998 2 Tablet(s) PO QID 07/16/2014 07/25/2014 Inactive sertraline 100 mg tablet RxNorm: 936375 1 Tablet(s) PO BID 1 Tablet(s) PO BID 06/13/2014 12/09/2014 Inactive sertraline 100 mg tablet RxNorm: 617158 1 Tablet(s) PO BID 06/13/2014 06/12/2014 Inactive magnesium oxide 400 mg tablet RxNorm: 740264 1 Tablet(s) PO daily 05/25/2014 2014 Inactive ropinirole 1 mg tablet RxNorm: 302319 1 Tablet(s) PO QPM 05/25/2014 05/19/2015 Inactive amlodipine 5 mg tablet RxNorm: 695240 1 Tablet(s) PO BID 05/25/2014 05/19/2015 Inactive prednisone 10 mg tablets in a dose pack RxNorm: 243292 1 Tablet(s) PO UD 04/06/2014 04/10/2014 Inactive 6-5-4-3-2-1 Xanax 0.25 mg tablet RxNorm: 317174 1 Tablet(s) PO BID PRN as needed 04/04/2014 07/02/2014 Inactive [SAVINGS FOR UNINSURED PATIENTS -- BIN:361236, PCN: ASPROD1, Group: AME08, ID# [id number], Process claim through GaBoom, for questions: . THIS IS NOT INSURANCE.] prednisone 20 mg tablet RxNorm: 588100 3 Tablet(s) PO daily 04/02/2014 04/05/2014 Inactive [SAVINGS FOR UNINSURED PATIENTS -- BIN:902080, PCN: ASPROD1, Group: AME08, ID# [id number], Process claim through MedImpact, for questions: . THIS IS NOT INSURANCE.] cefdinir 300 mg capsule RxNorm: 473056 1 Capsule(s) PO BID 04/02/2014 04/11/2014 Inactive [SAVINGS FOR UNINSURED PATIENTS -- BIN:286961, PCN: ASPROD1, Group: AME08, ID# [id number], Process claim through MedImpact, for questions: . THIS IS NOT INSURANCE.] Kenalog 40 mg/mL suspension for injection RxNorm: 0063356 Milliliter(s) Inj 04/02/2014 04/02/2014 Inactive [SAVINGS FOR UNINSURED PATIENTS -- BIN:519080, PCN: ASPROD1, Group: AME08, ID# [id number], Process claim through MedImpact, for questions: . THIS IS NOT INSURANCE.] ceftriaxone 500 mg solution for injection RxNorm: 246354 Inj 04/02/2014 04/02/2014 Inactive [SAVINGS FOR UNINSURED PATIENTS -- BIN:906494, PCN: ASPROD1, Group: AME08, ID# [id number], Process claim through MedImpact, for questions: . THIS IS NOT INSURANCE.] albuterol sulfate 2.5 mg/0.5 mL solution for nebulization RxNorm: 378884 1 treatment INH QID and as needed for dyspnea 04/02/2014 05/31/2014 Inactive [SAVINGS FOR UNINSURED PATIENTS -- BIN:907099, PCN: ASPROD1, Group: AME08, ID# [id number], Process claim through MedImpact, for questions: . THIS IS NOT INSURANCE.] azithromycin 500 mg tablet RxNorm: 756224 1 Tablet(s) PO daily 04/02/2014 04/06/2014 Inactive [SAVINGS FOR UNINSURED PATIENTS -- BIN:725795, PCN: ASPROD1, Group: AME08, ID# [id number], Process claim through MedImpact, for questions: . THIS IS NOT INSURANCE.] omeprazole 20 mg capsule,delayed release RxNorm: 935393 1 Tablet(s) PO daily 1 Capsule(s) PO daily 02/26/2014 06/25/2014 Inactive Xanax 0.25 mg tablet RxNorm: 944569 1 Tablet(s) PO BID PRN as needed 02/01/2014 04/03/2014 Inactive [SAVINGS FOR UNINSURED PATIENTS -- BIN:639686, PCN: ASPROD1, Group: AME08, ID# [id number], Process claim through MedImpact, for questions: . THIS IS NOT INSURANCE.] Xanax 0.25 mg tablet RxNorm: 547988 1 Tablet(s) PO HS PRN as needed 01/04/2014 01/31/2014 Inactive [SAVINGS FOR UNINSURED PATIENTS -- BIN:427523, PCN: ASPROD1, Group: AME08, ID# [id number], Process claim through MedImpact, for questions: . THIS IS NOT INSURANCE.] pravastatin 10 mg tablet RxNorm: 867601 1 Tablet(s) PO QHS 12/21/2013 12/20/2013 Inactive pravastatin 10 mg tablet RxNorm: 751015 1 Tablet(s) PO QHS 12/21/2013 07/18/2014 Inactive [SAVINGS FOR UNINSURED PATIENTS -- BIN:359139, PCN: ASPROD1, Group: AME08, ID# [id number], Process claim through MedImpact, for questions: . THIS IS NOT INSURANCE.] Hytrin 1 mg tablet RxNorm: 350563 1 Tablet(s) PO BID 12/21/2013 04/08/2015 Inactive [SAVINGS FOR UNINSURED PATIENTS -- BIN:869601, PCN: ASPROD1, Group: AME08, ID# [id number], Process claim through MedImpact, for questions: . THIS IS NOT INSURANCE.] Hytrin 1 mg tablet RxNorm: 668932 1 Tablet(s) PO daily 12/18/2013 12/20/2013 Inactive [SAVINGS FOR UNINSURED PATIENTS -- BIN:404718, PCN: ASPROD1, Group: AME08, ID# [id number], Process claim through MedImpact, for questions: . THIS IS NOT INSURANCE.] sertraline 100 mg tablet RxNorm: 756035 1 Tablet(s) PO QHS 12/14/2013 12/08/2014 Inactive [SAVINGS FOR UNINSURED PATIENTS -- BIN:176466, PCN: ASPROD1, Group: AME08, ID# [id number], Process claim through MedImpact, for questions: . THIS IS NOT INSURANCE.] Xanax 0.25 mg tablet RxNorm: 866492 1 Tablet(s) PO HS PRN as needed 12/13/2013 01/03/2014 Inactive [SAVINGS FOR UNINSURED PATIENTS -- BIN:953333, PCN: ASPROD1, Group: AME08, ID# [id number], Process claim through MedIEdgeConneXact, for questions: . THIS IS NOT INSURANCE.] tramadol 50 mg tablet RxNorm: 287530 2 Tablet(s) PO BID 11/08/2013 04/24/2015 Inactive Xanax 0.25 mg tablet RxNorm: 009838 1 Tablet(s) PO HS PRN as needed 10/19/2013 10/18/2013 Inactive Xanax 0.25 mg tablet RxNorm: 694587 1 Tablet(s) PO HS PRN as needed 10/19/2013 12/12/2013 Inactive Carafate 1 gram tablet RxNorm: 966543 Tablet(s) PO dissolve 1 tab QID x 1 week, then TID x 1 week, then BID x 1 week 09/07/2013 02/26/2015 Inactive omeprazole 20 mg capsule,delayed release RxNorm: 321412 1 Capsule(s) PO daily 09/07/2013 09/06/2013 Inactive omeprazole 20 mg capsule,delayed release RxNorm: 096753 1 Capsule(s) PO daily 09/07/2013 02/26/2014 Inactive prednisone 10 mg tablet RxNorm: 531581 1 Tablet(s) PO 08/25/2013 12/13/2013 Inactive prednisone taper Zithromax Z-Bon 250 mg tablet RxNorm: 544259 Tablet(s) PO as directed 08/25/2013 12/13/2013 Inactive Zithromax Z-Bon 250 mg tablet RxNorm: 175239 Tablet(s) PO as directed 08/04/2013 08/24/2013 Inactive Xanax 0.25 mg tablet RxNorm: 168475 1 Tablet(s) PO HS PRN 08/01/2013 10/18/2013 Inactive Kenalog 40 mg/mL suspension for injection RxNorm: 0516600 Milliliter(s) Inj 08/01/2013 08/01/2013 Inactive tramadol 50 mg tablet RxNorm: 311648 2 Tablet(s) PO BID 05/02/2013 11/07/2013 Inactive carvedilol 25 mg tablet RxNorm: 805004 1 Tablet(s) PO BID 05/02/2013 12/13/2013 Inactive magnesium oxide 400 mg tablet RxNorm: 216918 1 Tablet(s) PO daily 05/02/2013 04/26/2014 Inactive furosemide 20 mg tablet RxNorm: 650814 2 Tablet(s) PO daily 05/02/2013 2014 Inactive amlodipine 5 mg tablet RxNorm: 908324 1 Tablet(s) PO BID 05/02/2013 04/26/2014 Inactive sertraline 100 mg tablet RxNorm: 612762 1 Tablet(s) PO BID 05/02/2013 12/13/2013 Inactive ropinirole 1 mg tablet RxNorm: 348711 1 Tablet(s) PO QPM 05/02/2013 04/26/2014 Inactive pantoprazole 40 mg tablet,delayed release RxNorm: 148298 1 Tablet(s) PO daily 05/02/2013 2014 Inactive gabapentin 600 mg tablet RxNorm: 145185 1 Tablet(s) PO BID 05/02/2013 2014 Inactive aspirin 81 mg tablet,delayed release RxNorm: 106704 1 Tablet(s) PO daily No Start Date Active ferrous fumarate 325 mg (106 mg iron) tablet RxNorm: 803850 1 Tablet(s) PO daily No Start Date 2014 Inactive amlodipine 5 mg tablet RxNorm: 251587 1 Tablet(s) PO BID No Start Date 05/01/2013 Inactive Vitamin B-12 2,500 mcg sublingual tablet RxNorm: 684537 1 Tablet(s) SL daily No Start Date 2014 Inactive Zithromax Z-Bon 250 mg tablet RxNorm: 820649 Tablet(s) PO as directed No Start Date 08/03/2013 Inactive sertraline 100 mg tablet RxNorm: 322506 1 Tablet(s) PO BID No Start Date 05/01/2013 Inactive Hytrin 1 mg tablet RxNorm: 312916 1 Tablet(s) PO BID No Start Date 12/17/2013 Inactive potassium chloride ER 10 mEq capsule,extended release RxNorm: 072219 1 Capsule(s) PO QDAY PRN No Start Date 06/17/2016 Inactive Xanax 0.25 mg tablet RxNorm: 114993 1 Tablet(s) PO HS PRN No Start Date 07/31/2013 Inactive gabapentin 600 mg tablet RxNorm: 308353 1 Tablet(s) PO BID No Start Date 05/01/2013 Inactive ropinirole 1 mg tablet RxNorm: 774478 1 Tablet(s) PO QPM No Start Date 05/01/2013 Inactive Vitamin D3 1,000 unit tablet RxNorm: 628229 2 Tablet(s) PO daily No Start Date 09/11/2015 Inactive furosemide 20 mg tablet RxNorm: 973714 1 Tablet(s) PO BID No Start Date 05/01/2013 Inactive tramadol 50 mg tablet RxNorm: 794728 2 Tablet(s) PO BID No Start Date 05/01/2013 Inactive Carafate 1 gram tablet RxNorm: 776527 Tablet(s) PO dissolve 1 tab QID x 1 week, then TID x 1 week, then BID x 1 week No Start Date 09/06/2013 Inactive pantoprazole 40 mg tablet,delayed release RxNorm: 062837 1 Tablet(s) PO daily No Start Date 05/01/2013 Inactive montelukast 10 mg tablet RxNorm: 693673 1 Tablet(s) PO QHS No Start Date 04/23/2016 Inactive magnesium oxide 400 mg tablet RxNorm: 507452 1 Tablet(s) PO daily No Start Date 05/01/2013 Inactive prednisone 10 mg tablet RxNorm: 327688 1 Tablet(s) PO No Start Date 08/24/2013 Inactive prednisone taper carvedilol 25 mg tablet RxNorm: 319309 1 Tablet(s) PO BID No Start Date 05/01/2013 Inactive baclofen 10 mg tablet RxNorm: 152269 2 Tablet(s) PO daily No Start Date 12/13/2013 Inactive Vitamin B Complex capsule RxNorm: 1 Capsule(s) PO daily No Start Date 2014 Inactive Medication Administered Medication Codes Instructions Start Date Status Kenalog 40 mg/mL suspension for injection RxNorm: 7372122 Milliliter 09/15/2016 No longer Active Kenalog 40 mg/mL suspension for injection RxNorm: 3921348 Milliliter 04/02/2014 No longer Active ceftriaxone 500 mg solution for injection RxNorm: 668378 04/02/2014 No longer Active Kenalog 40 mg/mL suspension for injection RxNorm: 1722214 Milliliter 08/01/2013 No longer Active Immunizations Vaccine [...] Code Item Item Code Result Date Mayda 262906 MAYDA (MORTEZA) SCREEN NONE DETECTED 06/25/2017 Ra Factor Vmz086 RA FACTOR <10 IU/ml 06/24/2017 D-Dimer D-DIMER [...] 38.4 % 06/01/2017 Cbc With Differential Ord2 [place]% 5.8 % 06/01/2017 Cbc With Differential Ord2 [...] 2.17 K/ul 06/01/2017 Cbc With Differential Ord2 [place] ABS# 0.3 K/ul 06/01/2017 Cbc With Differential Ord2 Eos ABS# 0.1 K/ul 06/01/2017 Cbc With Differential Ord2 Baso ABS# 0.1 K/ul 06/01/2017 Comp Metabolic Scl699 NA 137 mEq/L 06/01/2017 Comp Metabolic Vpk656 K 3.7 mEq/L 06/01/2017 Comp Metabolic Gnw253 CL 100 mEq/L 06/01/2017 Comp Metabolic Mge175 CO2 28.0 mEq/L 06/01/2017 Comp Metabolic Byy713 ANION GAP 13 06/01/2017 Comp Metabolic Npv670 GLUCOSE 94 mg/dL 06/01/2017 Comp Metabolic Sjl907 Creat 1.3 mg/dL 06/01/2017 Comp Metabolic Jzi210 eGFR 45 ml/min/1.73m2 06/01/2017 Comp Metabolic Fgx749 BUN 12 mg/dL 06/01/2017 Comp Metabolic Tfi003 B/C Ratio 9.6 Ratio 06/01/2017 Comp Metabolic Qij899 CALCIUM 9.5 mg/dL 06/01/2017 Comp Metabolic Jgk972 ALK PHOS 77 U/L 06/01/2017 Comp Metabolic Ail415 AST(SGOT) 17 U/L 06/01/2017 Comp Metabolic Gwa582 ALT(SGPT) 15 U/L 06/01/2017 Comp Metabolic Gzd991 BILI T 0.5 mg/dL 06/01/2017 Comp Metabolic Fft846 ALBUMIN 4.4 g/dL 06/01/2017 Comp Metabolic Hsw485 TPRO 7.0 g/dL 06/01/2017 Comp Metabolic Knj327 GLOB 2.6 g/dL 06/01/2017 Comp Metabolic Jzv024 A/G Ratio 1.7 Ratio 06/01/2017 Comp Metabolic Tmv970 Osmo 273 mOsmo 06/01/2017 Mayda [id number] MAYDA (MORTEZA) SCREEN NONE DETECTED 06/22/2016 C-Reactive Protein Qnt Crqnt CRP 0.3 mg/dl 06/19/2016 Sed Rate Ord21 ESR 11 mm/hr 06/19/2016 Ra Factor Pri814 RA FACTOR <10 IU/ml 06/19/2016 Sed Rate Ord21 ESR 14 mm/hr 02/25/2016 C-Reactive Protein Qnt Crqnt CRP 0.3 mg/dl 02/25/2016 Comp Metabolic Kgb593 NA 136 mEq/L 02/25/2016 Comp Metabolic Muv657 K 3.9 mEq/L 02/25/2016 Comp Metabolic Hyc679 CL 103 mEq/L 02/25/2016 Comp Metabolic Kks940 CO2 27.0 mEq/L 02/25/2016 Comp Metabolic Dnu134 ANION GAP 10 02/25/2016 Comp Metabolic Gck645 GLUCOSE 82 mg/dL 02/25/2016 Comp Metabolic Wfk692 Creat 1.3 mg/dL 02/25/2016 Comp Metabolic Ceu196 eGFR 45 ml/min/1.73m2 02/25/2016 Comp Metabolic Jmj086 BUN 13 mg/dL 02/25/2016 Comp Metabolic Gzr529 B/C Ratio 10.3 Ratio 02/25/2016 Comp Metabolic Vcm671 CALCIUM 9.5 mg/dL 02/25/2016 Comp Metabolic Dsu453 ALK PHOS 70 U/L 02/25/2016 Comp Metabolic Deu215 AST(SGOT) 17 U/L 02/25/2016 Comp Metabolic Hqf317 ALT(SGPT) 13 U/L 02/25/2016 Comp Metabolic Rfi662 BILI T 0.4 mg/dL 02/25/2016 Comp Metabolic Ivd919 ALBUMIN 4.2 g/dL 02/25/2016 Comp Metabolic Yfc891 TPRO 6.6 g/dL 02/25/2016 Comp Metabolic Umd046 GLOB 2.4 g/dL 02/25/2016 Comp Metabolic Exd368 A/G Ratio 1.7 Ratio 02/25/2016 Comp Metabolic Ofx414 Osmo 271 mOsmo 02/25/2016 Cbc With Differential [...] 29.1 pg 02/25/2016 Cbc With Differential Ord2 [place]% 6.8 % 02/25/2016 Cbc With Differential Ord2 [...] 1.62 K/ul 02/25/2016 Cbc With Differential Ord2 [place] ABS# 0.4 K/ul 02/25/2016 Cbc With Differential Ord2 Eos ABS# 0.1 K/ul 02/25/2016 Cbc With Differential Ord2 Baso ABS# 0.0 K/ul 02/25/2016 Tsh Ord6 hTSH II 1.63 uIU/mL 02/25/2016 [facility] Spotted Fever Igg/Igm [id number] B[facility]IG[place] SPOTTED FEVER IGM EIA . 09/17/2015 [facility] Spotted Fever Igg/Igm 877454 RMSF, IGM 0.27 index 09/17/2015 [facility] Spotted Fever Igg/Igm [id number] BENIGNO MT SPOTTED FEVER IGG EIA FLEX . 09/17/2015 [facility] Spotted Fever Igg/Igm [id number] RMSF, IGG SCREEN-FLEX Negative 09/17/2015 Ehrlichia Chaffeensis Antibody Igm 121445 EHRLICHIA CHAFFEENSIS IGM < 1:16 09/16/2015 Ehrlichia Chaffeensis Antibody Igg 669393 EHRLICHIA CHAFFEENSIS IGG 1:256 09/16/2015 Lymes Disease Total Antibodies With Western Blot Reflex [id number] B. BURGDORFERI, IGG/IGM 0.10 LI 09/14/2015 Lymes Disease Total Antibodies With Western Blot Reflex [id number] 09/14/2015 Vitamin D 25 Oh [id number] VITAMIN D, 25 HYDROXY 59.60 ng/mL 09/13/2015 Sed Rate Ord21 ESR 10 mm/hr 09/12/2015 Comp Metabolic Qrc861 NA 139 mEq/L 09/12/2015 Comp Metabolic Vqf754 K 3.8 mEq/L 09/12/2015 Comp Metabolic Xyg766 CL 103 mEq/L 09/12/2015 Comp Metabolic Ugu080 CO2 27.0 mEq/L 09/12/2015 Comp Metabolic Knb327 ANION GAP 13 09/12/2015 Comp Metabolic Ppv775 GLUCOSE 91 mg/dL 09/12/2015 Comp Metabolic Spr125 Creat 1.2 mg/dL 09/12/2015 Comp Metabolic Dhc572 eGFR 47 ml/min/1.73m2 09/12/2015 Comp Metabolic Ucz874 BUN 20 mg/dL 09/12/2015 Comp Metabolic Ifz991 B/C Ratio 16.3 Ratio 09/12/2015 Comp Metabolic Lne070 CALCIUM 9.3 mg/dL 09/12/2015 Comp Metabolic Pln984 ALK PHOS 55 U/L 09/12/2015 Comp Metabolic Fsu564 AST(SGOT) 19 U/L 09/12/2015 Comp Metabolic Dec894 ALT(SGPT) 14 U/L 09/12/2015 Comp Metabolic Xcz465 BILI T 0.6 mg/dL 09/12/2015 Comp Metabolic Qdm278 ALBUMIN 4.3 g/dL 09/12/2015 Comp Metabolic Dlu963 TPRO 6.8 g/dL 09/12/2015 Comp Metabolic Czg178 GLOB 2.5 g/dL 09/12/2015 Comp Metabolic Nun766 A/G Ratio 1.8 Ratio 09/12/2015 Comp Metabolic Iqe914 Osmo 280 mOsmo 09/12/2015 B12 Qgv174 B12 >1500.00 pg/ml 09/12/2015 Cbc With Differential [...] 28.9 pg 09/12/2015 Cbc With Differential Ord2 [place]% 5.9 % 09/12/2015 Cbc With Differential Ord2 [...] 1.33 K/ul 09/12/2015 Cbc With Differential Ord2 [place] ABS# 0.3 K/ul 09/12/2015 Cbc With Differential [...] Full Exam - General 1994 Neurologic coordination Tioige-arxg-gzfwtw testing - left: dysmetria 05/11/2017 None Full Exam - General 1994 Neurologic coordination Dissit-jvrv-tlphif testing - right: dysmetria 05/11/2017 None Full [...] Full Exam - General 1994 Neurologic coordination Eofxfm-taeo-xcggkf testing - left: dysmetria 04/20/2016 None Full Exam - General 1994 Neurologic coordination Pqwvvm-znqx-nvnivv testing - right: dysmetria 04/20/2016 None Full [...] Full Exam - General 1994 Neurologic coordination Chiuzg-nnni-qstbze testing - left: dysmetria 02/25/2016 None Full Exam - General 1994 Neurologic coordination Jzutek-ynxx-plvutp testing - right: dysmetria 02/25/2016 None Full [...] Full Exam - General 1994 Neurologic coordination Gbnhnq-nahv-zlwgwh testing - left: dysmetria 01/28/2016 None Full Exam - General 1994 Neurologic coordination Hfmirx-saqf-vwmzdo testing - right: dysmetria 01/28/2016 None Full [...] palp - head/face Lesion: excoriation 07/16/2014 right hindu, redness right eyelid Full Exam - Dermatology [...] Procedure Codes Date THER/PROPH/DIAG INJ SC/IM CPT-4: 98893 09/15/2016 TRIAMCINOLONE ACET INJ NOS CPT-4: J3301 09/15/2016 ADMIN INFLUENZA VIRUS VAC CPT-4: G0008 01/08/2016 ADMIN PNEUMOCOCCAL VACCINE SNOMED CT: 06250553 CPT-4: G0009 01/08/2016 PNEUMOCOCCAL VACC 13 RIVERA IM Formatting Model/CDA Sections, Assigned to/Aliya Muñoz SNOMED CT: 09514532 CPT-4: 57884Mxpfgvg 01/08/2016 FLU VACC 4 RIVERA 3 YRS PLUS IM SNOMED CT: 97384755 CPT-4: 51968 01/08/2016 THER/PROPH/DIAG INJ SC/IM CPT-4: 81800 04/02/2014 TRIAMCINOLONE ACET INJ NOS CPT-4: J3301 04/02/2014 ROCEPHIN, PER 250 MG CPT- 4: J0696 04/02/2014 TRIAMCINOLONE ACET INJ NOS CPT-4: J3301 08/01/2013 THER/PROPH/DIAG INJ SC/IM CPT-4: 38538 08/01/2013 Vital Signs Date Vital 01/25/2018 Blood Pressure 1: 130/68 Code: 8480-6 BMI: 34.4 Code: 61739-1 Heart Rate 1: 91 bpm Height: 5'5" SpO2: 95% Weight: 207 lbs 10/06/2017 Blood Pressure 1: 118/78 Code: 8480-6 BMI: 34.3 Code: 46350-9 Heart Rate 1: 75 bpm Height: 5'5" SpO2: 98% Weight: 206 lbs 09/27/2017 Blood Pressure 1: 136/88 Code: 8480-6 BMI: 35.4 Code: 90665-7 Heart Rate 1: 86 bpm Height: 5'5" SpO2: 98% Weight: 213 lbs 07/23/2017 Blood Pressure 1: 106/58 Code: 8480-6 BMI: 34.8 Code: 44523-9 Heart Rate 1: 70 bpm Height: 5'5" SpO2: 96% Weight: 209 lbs 06/01/2017 Blood Pressure 1: 150/96 Code: 8480-6 BMI: 34.4 Code: 77479-9 Heart Rate 1: 82 bpm Height: 5'5" SpO2: 99% Weight: 207 lbs 05/11/2017 Blood Pressure 1: 144/90 Code: 8480-6 BMI: 34.6 Code: 31638-0 Heart Rate 1: 76 bpm Height: 5'5" SpO2: 98% Weight: 208 lbs 10/30/2016 Blood Pressure 1: 172/104 Code: 8480-6 Blood Pressure 1: 158/98 Code: 8480-6 BMI: 34.7 Code: 21755-9 Heart Rate 1: 70 bpm Height: 5'5" SpO2: 97% Temperature: 36.2 (C) / 97.1 (F) Weight: 208 lbs 10 oz 04/20/2016 Blood Pressure 1: 144/86 Code: 8480-6 BMI: 34.3 Code: 65421-3 Heart Rate 1: 68 bpm Height: 5'5" SpO2: 97% Weight: 206 lbs 02/25/2016 Blood Pressure 1: 122/82 Code: 8480-6 BMI: 34.4 Code: 86040-2 Heart Rate 1: 86 bpm Height: 5'5" SpO2: 94% Weight: 207 lbs 01/28/2016 Blood Pressure 1: 128/86 Code: 8480-6 BMI: 33.3 Code: 38956-9 Heart Rate 1: 86 bpm Height: 5'5" SpO2: 96% Weight: 200 lbs 11/14/2015 Blood Pressure 1: 138/88 Code: 8480-6 Blood Pressure 1: 140/90 Code: 8480-6 BMI: 33.3 Code: 58398-5 Heart Rate 1: 98 bpm Height: 5'5" SpO2: 97% Weight: 200 lbs 10/10/2015 Blood Pressure 1: 132/80 Code: 8480-6 BMI: 33.3 Code: 63086-8 Heart Rate 1: 74 bpm Height: 5'5" SpO2: 96% Weight: 200 lbs 09/12/2015 Blood Pressure 1: 148/90 Code: 8480-6 BMI: 32.9 Code: 78495-2 Heart Rate 1: 94 bpm Height: 5'5" SpO2: 97% Weight: 198 lbs 04/09/2015 Blood Pressure 1: 130/84 Code: 8480-6 Blood Pressure 1: 160/82 Code: 8480-6 BMI: 32.4 Code: 24135-7 Heart Rate 1: 74 bpm Height: 5'5" SpO2: 95% Weight: 195 lbs 10/05/2014 Blood Pressure 1: 140/80 Code: 8480-6 BMI: 30.5 Code: 90897-3 Heart Rate 1: 79 bpm Height: 5'5" SpO2: 98% Weight: 183 lbs 09/07/2014 Blood Pressure 1: 142/96 Code: 8480-6 BMI: 32.1 Code: 06441-8 Heart Rate 1: 72 bpm Height: 5'5" SpO2: 98% Temperature: 36.5 (C) / 97.7 (F) Weight: 193 lbs 07/16/2014 Blood Pressure 1: 138/82 Code: 8480-6 BMI: 31.8 Code: 01207-2 Heart Rate 1: 76 bpm Height: 5'5" Weight: 191 lbs 04/02/2014 Blood Pressure 1: 148/90 Code: 8480-6 BMI: 33.8 Code: 59956-1 Heart Rate 1: 68 bpm Height: 5'5" Temperature: 36.9 (C) / 98.4 (F) Weight: 203 lbs 12/14/2013 Blood Pressure 1: 140/88 Code: 8480-6 BMI: 35.3 Code: 65524-3 Heart Rate 1: 91 bpm Height: 5'5" SpO2: 97% Weight: 212 lbs 08/01/2013 Blood Pressure 1: 126/68 Code: 8480-6 BMI: 35.1 Code: 73144-0 Heart Rate 1: 76 bpm Height: 5'5" Temperature: 36.7 (C) / 98.1 (F) Weight: 211 lbs 05/02/2013 Blood Pressure 1: 118/86 Code: 8480-6 BMI: 34.9 Code: 94094-5 Heart Rate 1: 76 bpm Height: 5'5" Weight: 209 lbs 8 oz 04/18/2013 Blood Pressure 1: 118/60 Code: 8480-6 BMI: 35.3 Code: 59689-4 Heart Rate 1: 68 bpm Height: 5'5" [...] data Encounters Encounter Performer Location Codes Date [id number]) 82041 EST. PATIENT, LEVEL III Diagnosis: Essential (primary) hypertension[ICD10: I10] Marilyn Lao MD, [facility] CPT-4: 20844 01/25/2018 ([id number]) 98482 EST. 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 PATIENT, LEVEL IV Diagnosis: Essential (primary) hypertension[ICD10: I10] Diagnosis: Localized edema[ICD10: R60.0] Marilyn Lao MD, [facility] CPT-4: 20657 09/27/2017 [id number]) 93357 EST. PATIENT, LEVEL IV Diagnosis: Generalized anxiety disorder[ICD10: F41.1] Diagnosis: Essential (primary) hypertension[ICD10: I10] Diagnosis: Chronic pain syndrome[ICD10: G89.4] Noa Lao MD, [facility] CPT-4: 90906 07/23/2017 ([id number]) 17362 EST. PATIENT, LEVEL IV Diagnosis: Essential (primary) hypertension[ICD10: I10] Diagnosis: Chest pain, unspecified[ICD10: R07.9] Diagnosis: Chronic kidney disease, stage 3 (moderate)[ICD10: N18.3] Noa Lao MD, [facility] CPT-4: 10299 06/01/2017 [id number] EST. PATIENT, LEVEL IV Diagnosis: Gastro-esophageal reflux disease without esophagitis[ICD10: K21.9] Anais Lao MD, [facility] CPT-4: 60783 05/11/2017 ([id number]) 88344 EST. PATIENT, LEVEL III Diagnosis: Essential (primary) hypertension[ICD10: I10] Diagnosis: Contusion of right lower leg, initial encounter[ICD10: S80.11XA] Noa Lao MD, [facility] CPT-4: 20582 10/30/2016 ([id number]) 50628 EST. PATIENT, LEVEL IV Diagnosis: Essential (primary) hypertension[ICD10: I10] Diagnosis: Generalized anxiety disorder[ICD10: F41.1] Marilyn Lao MD, [facility] CPT-4: 78782 04/20/2016 ([id number]) 23160 EST. PATIENT, LEVEL IV Diagnosis: Essential (primary) hypertension[ICD10: I10] Diagnosis: Chronic kidney disease, stage 3 (moderate)[ICD10: N18.3] Diagnosis: Generalized anxiety disorder[ICD10: F41.1] Diagnosis: Major depressive disorder, recurrent, moderate[ICD10: F33.1] Diagnosis: Shortness of breath[ICD10: R06.02] Noa Lao MD, [facility] CPT- 4: 66048 02/25/2016 ([id number]) 64524 EST. PATIENT, LEVEL IV Diagnosis: Generalized anxiety disorder[ICD10: F41.1] Diagnosis: Major depressive disorder, recurrent, moderate[ICD10: F33.1] Diagnosis: Essential (primary) hypertension[ICD10: I10] Diagnosis: Restless legs syndrome[ICD10: G25.81] Diagnosis: Myalgia[ICD10: M79.1] Noa Lao MD, [facility] CPT-4: 70603 01/28/2016 ([id number]) 33674 EST. PATIENT, LEVEL III Diagnosis: Essential (primary) hypertension[ICD10: I10] Diagnosis: Insomnia, unspecified[ICD10: G47.00] Noa Lao MD, [facility] CPT-4: 56887 11/14/2015 ([id number]) 03107 EST. 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 PATIENT, LEVEL IV Diagnosis: Bitten or stung by nonvenomous insect and other nonvenomous arthropods, initial encounter[ICD10: W57.XXXA] Diagnosis: Other fatigue[ICD10: R53.83] Diagnosis: Vitamin D deficiency, unspecified[ICD10: E55.9] Diagnosis: Other vitamin B12 deficiency anemias[ICD10: D51.8] Diagnosis: Essential (primary) hypertension[ICD10: I10] Diagnosis: Iron deficiency[ICD10: E61.1] Noa Lao MD, [facility] CPT-4: 88718 09/12/2015 ([id number]) 11819 EST. PATIENT, LEVEL III Diagnosis: Essential (primary) hypertension[ICD10: I10] Diagnosis: Chronic kidney disease, stage 3 (moderate)[ICD10: N18.3] Noa Lao MD, [facility] CPT-4: 15145 04/09/2015 ([id number]) 29469 EST. PATIENT, LEVEL III Diagnosis: ESSENTIAL HYPERTENSION[ICD9: 401.9] Noa Lao MD, [facility] CPT-4: 84014 10/05/2014 ([id number]) 78135 EST. PATIENT, LEVEL IV Diagnosis: Easy bruising[ICD9: 782.9] Diagnosis: Iron deficiency anemia[ICD9: 280.9] Diagnosis: ESSENTIAL HYPERTENSION[ICD9: 401.9] Diagnosis: Chronic kidney disease, stage 3[ICD9: 585.3] Noa Lao MD, [facility] CPT-4: 07145 09/07/2014 ([id number]) 46709 EST. PATIENT, LEVEL III Diagnosis: Shingles[ICD9: 053.9] Marilyn Lao MD [facility] CPT-4: 83391 07/16/2014 ([id number]) 78898 EST. PATIENT, LEVEL III Diagnosis: PNEUMONIA (CAP)[ICD9: 486] Diagnosis: COUGH[ICD9: 786.2] Marilyn Lao MD [facility] CPT-4: 29046 04/02/2014 ([id number]) 80740 EST. PATIENT, LEVEL III Diagnosis: ESSENTIAL HYPERTENSION[ICD9: 401.9] Diagnosis: Rib pain on left side[ICD9: 786.50] Diagnosis: EDEMA[ICD9: 782.3] Noa Lao MD, [facility] CPT-4: 68607 12/14/2013 ([id number]) 77671 EST. PATIENT, LEVEL IV Diagnosis: ESOPHAGEAL REFLUX[ICD9: 530.81] Diagnosis: Urge incontinence[ICD9: 788.31] Diagnosis: Elbow pain, right[ICD9: 719.42] Diagnosis: Snoring[ICD9: 786.09] Marilyn Lao MD [facility] CPT-4: 28447 08/01/2013 ([id number]) 14858 EST. PATIENT, LEVEL IV Diagnosis: ESSENTIAL HYPERTENSION[SNOMED: 60640622] Diagnosis: EDEMA[ICD9: 782.3] Diagnosis: Chronic renal insufficiency, stage III (moderate)[ICD9: 585.3] Diagnosis: HYPERLIPIDEMIA[ICD9: 272.4] Marilyn Lao MD [facility] CPT-4: 25240 05/02/2013 ([id number]) 59789 EST. PATIENT, LEVEL IV Diagnosis: ESSENTIAL HYPERTENSION[SNOMED: 87549334] Diagnosis: Restless leg[ICD9: 333.94] Marilyn Lao MD, [facility] CPT-4: 72677 04/18/2013 Plan of Care Planned Activity Notes Codes Status Date Visit Plan: Hypertension - well controlled - continue with current medications, continue with no added salt diet. Pt has been encouraged to exercise daily. The pt has been advised to call the office if there are any acute concerns about change in blood pressure readings at home. 01/25/2018 Appointment: [facility] [phone] [facility] [place] [place] (15 min) Moderate 01/25/2018 Patient Education: Patient Medication Summary Completed 01/25/2018 Appointment: [facility] [phone] [facility] [place] [place] (15 min) Moderate 01/06/2018 Patient Education: Patient Medication Summary Completed 10/26/2017 Care Plan: Comp Metabolic Cancelled 10/26/2017 Visit Plan: Tinea/Onychodystrophy - penlac prescribed, pt did not want to take medication by mouth for treatment. Edema - improved - continue current regimen. 10/06/2017 Appointment: [facility] [phone] [facility] [place] [place] (15 min) Moderate 10/06/2017 Patient Education: [...] home. 09/27/2017 Appointment: [facility] [phone] [facility] [place] [place] (15 min) Moderate 09/27/2017 Patient Education: [...] pain-recommend massage 07/23/2017 Appointment: Noa Orlando WPtel: [facility] [phone] (15 min) Moderate 07/23/2017 Patient Education: [...] breath worsens 06/01/2017 Appointment: Noa Orlando WPtel: [facility] [phone] (30 min) Complex 06/01/2017 Patient Education: Patient Medication Summary Completed 06/01/2017 Care Plan: Referral Order SNOMED-CT : 233684050 Pending 06/01/2017 Visit Plan: Esophageal Reflux - the patient has been counseled against excessive intake of caffeine, spicy foods, peppermint, and cinnamon - all of which can exacerbate esophageal reflux. The patient is to take med ications as prescribed and call the office if the symptoms are not improving. 05/11/2017 Appointment: Anais Arrieta WPtel: [phone] [facility] (15 min) Moderate 05/11/2017 Patient Education: [...] Completed 09/15/2016 Appointment: Marilyn Lao WPtel: [phone] [phone] (15 min) Moderate 08/19/2016 Patient Education: [...] current medications. 04/20/2016 Appointment: Marilyn Lao WPtel: [phone] [phone] (30 min) Complex 04/20/2016 Patient Education: Patient Medication Summary Completed 04/20/2016 Patient Education: Obesity Completed 04/20/2016 Patient Education: Hypertension Completed 04/20/2016 Appointment: Noa Orlando WPtel: [phone] [phone] [place] (30 min) Complex 03/16/2016 Referral: [...] for follow up. Chronic renal disease-check labs Ynianqy-gnsgpynnih-gynnxbod with cymbalta-continue same dose for now -may take xanax TID PRN Multiple joint pain-check labs including inflammatory markers 02/25/2016 Appointment: Noa Orlando WPtel: [facility] [phone] (30 min) Complex 02/25/2016 Patient Education: Patient Medication Summary Completed 02/25/2016 Patient Education: Obesity Completed 02/25/2016 Patient Education: Hypertension Completed 02/25/2016 Care Plan: Referral Order SNOMED-CT : 150835974 Pending 02/25/2016 Visit Plan: Anxiety/Depression - the [...] in blood pressure readings at home. Restless tsi-fcovrr-rebjjayo requip to twice daily-monitor symptoms Myalgias-stop pravastatin 01/28/2016 Appointment: Noa Orlando WPtel: [facility] [phone] (30 min) Complex 01/28/2016 Patient Education: [...] Completed 10/10/2015 Appointment: [facility] [phone] [facility] [place] (15 min) Moderate 10/08/2015 Visit Plan: Hypertension - well controlled - continue with current medications, continue with no added salt diet. Pt has been encouraged to exercise daily. The pt has been advised to call the office if there are any acute concerns about change in blood pressure readings at home. Iron deficiency- B12 deficiency-check labs Tick ohvl-fkdmprk-gbyaa tick panel 09/12/2015 Appointment: [phone] [phone] (15 min) Moderate 09/12/2015 Patient Education: Patient [...] symptoms Iron deficiency anemia-stopped oral iron per logistics operations manager in March-recheck labs HTN-elevated today-monitor twice daily [...] Care Plan: COMPLETE CBC AUTOMATED LOINC : 92305-7 Ordered 09/07/2014 Visit Plan: Shingles - Herpes [...] Summary Completed 07/16/2014 Appointment: Marilyn Lao WPtel: [phone] [facility] Follow up 04/16/2014 Appointment: Sick 04/03/2014 Visit Plan: Pneumonia - Pt has been diagnosed with pneumonia by physical exam. Antibiotics started. The pt is aware of the diagnosis and the need for acute treatment of this illness. 04/02/2014 Patient Education: Patient Medication Summary Completed 04/02/2014 Appointment: Marilyn Lao WPtel: [phone] [facility] Sick 12/27/2013 Patient Education: Patient Medication Summary [...] further attempt to reduce peripheral edema. Night qwgcki-vpgotry-uhdcs labs 12/14/2013 Appointment: Follow up 12/14/2013 Patient Education: Patient Medication Summary Completed 12/14/2013 Patient Education: Hypertension Completed 12/14/2013 Appointment: Noa Orlando WPtel: [phone] [phone] [place] [address] Sick 12/01/2013 Appointment: Marilyn Lao WPtel: [facility] [place] [place] Sick 11/30/2013 Visit Plan: Allergies - chronic [...] symptoms. 08/01/2013 Appointment: Marilyn Lao WPtel: [phone] [facility] Follow up 08/01/2013 Patient Education: Patient Medication [...] as able. 05/02/2013 Appointment: Marilyn Lao WPtel: [facility] [place] [place] Follow up 05/02/2013 Patient Education: Patient Medication [...] juice. 04/18/2013 Appointment: [facility]: [phone] [facility] [place] New Patient 04/18/2013 Patient Education: Patient Medication [...] in blood pressure readings at home. Restless hvj-rqrgyp-mictftrz requip to twice daily-monitor symptoms Myalgias-stop pravastatin [...] for follow up. Chronic renal disease-check labs Wwbazrd-nfupqrkfcw-jctavtyx with cymbalta-continue same dose for now -may [...] at home. Iron deficiency-B12 deficiency-check labs Tick xuxm-bphrnbk-buvbk tick panel PATIENT IS TO CHECK BLOOD [...] symptoms Iron deficiency anemia-stopped oral iron per logistics operations manager in March-recheck labs HTN-elevated today-monitor twice daily [...] further attempt to reduce peripheral edema. Night yxaieu-xriwrgn-pyvlh labs
--- OUTSIDE RECORDS SUMMARY | 2018-11-04 16:19 | XMS REPORT | CCD ---
Author Author Marilyn Lao Organization Marilyn Lao MD, [facility] Address [address] [place] [address] Phone Care Team Providers Care Credit Reference Clerk Name Role Phone PP Unavailable CCM Unavailable Summary Purpose Interface Exchange Insurance Providers Payer name Policy type / Coverage type Covered libertarian ID Effective Begin Date Effective End Date WPS Medicare Part B Medicare Part B [id number] Unknown [employer] and Life Medicare Part B [id number] Unknown Family history Mother Diagnosis Age At [...] Description Effective Dates Tobacco history SNOMED CT: 563913950 Never smoker but had significant smoke exposure during first marriage, [place]. 08/01/2013 Employment Unknown Retired doing as needed working for the [employer]. 05/02/2013 Marital status Unknown 04/18/[address]: 065336956 Never drinks alcohol 04/18/2013 Has the patient [...] Fill Instructions Xanax 0.5 mg tablet RxNorm: 515863 1 Tablet(s) PO TID PRN as needed 04/04/2018 04/03/2018 Inactive tramadol 50 mg tablet RxNorm: 076642 2 Tablet(s) PO BID 12/01/2017 01/29/2018 Inactive Cymbalta 60 mg capsule,delayed release RxNorm: 516616 TAKE ONE CAPSULE BY MOUTH DAILY 11/10/2017 11/04/2018 Active furosemide 40 mg tablet RxNorm: 483185 1 Tablet(s) PO daily 10/26/2017 10/20/2018 Active alprazolam 0.5 mg tablet RxNorm: 891091 1/2-1 Tablet(s) PO TID PRN as needed 10/12/2017 12/10/2017 Inactive Ciclodan 8 % topical solution RxNorm: 4296488 1 Application TOP daily x 7 days, clean off with alcohol then restart cycle of application until fungal infection is completely cleared 10/06/2017 01/03/2018 Inactive omeprazole 20 mg capsule,delayed release RxNorm: 666321 TAKE ONE CAPSULE BY MOUTH DAILY 10/04/2017 01/24/2018 Inactive losartan 100 mg tablet RxNorm: 034376 1 Tablet(s) PO daily 09/27/2017 03/25/2018 Inactive Xanax 0.25 mg tablet RxNorm: 924624 1 Tablet(s) PO TID PRN as needed 08/13/2017 10/11/2017 Inactive Xanax 0.5 mg tablet RxNorm: 542106 1 Tablet(s) PO TID PRN as needed 07/23/2017 11/18/2017 Inactive ropinirole 1 mg tablet RxNorm: 183568 TAKE TWO TABLETS BY MOUTH EVERY NIGHT AT BEDTIME 06/28/2017 06/22/2018 Active montelukast 10 mg tablet RxNorm: 207821 TAKE ONE TABLET BY MOUTH EVERY NIGHT AT BEDTIME 06/28/2017 06/22/2018 Active furosemide 20 mg tablet RxNorm: 103776 TAKE TWO TABLETS BY MOUTH DAILY FOR 7 DAYS THEN TAKE ONE TABLET BY MOUTH DAILY 06/28/2017 10/01/2017 Inactive losartan 50 mg tablet RxNorm: 401657 1 Tablet(s) PO daily 06/01/2017 09/26/2017 Inactive labetalol 100 mg tablet RxNorm: 184745 TAKE ONE TABLET BY MOUTH TWICE A DAY 05/26/2017 05/30/2017 Inactive labetalol 100 mg tablet RxNorm: 928513 1 Tablet(s) PO BID 05/26/2017 05/20/2018 Active Protonix 40 mg tablet,delayed release RxNorm: 338671 1 Tablet(s) PO daily 05/26/2017 05/20/2018 Active amlodipine 5 mg tablet RxNorm: 107855 TAKE ONE TABLET BY MOUTH TWICE A DAY 05/26/2017 09/26/2017 Inactive Carafate 1 gram tablet RxNorm: 160201 1 Tablet(s) PO QID 05/11/2017 09/07/2017 Inactive Protonix 40 mg tablet,delayed release RxNorm: 866106 1 Tablet(s) PO daily 05/11/2017 05/25/2017 Inactive Cymbalta 60 mg capsule,delayed release RxNorm: 050510 TAKE ONE CAPSULE BY MOUTH DAILY 05/05/2017 10/31/2017 Inactive Xanax 0.25 mg tablet RxNorm: 966503 1 Tablet(s) PO TID PRN as needed 02/09/2017 06/07/2017 Inactive Cymbalta 60 mg capsule,delayed release RxNorm: 380167 TAKE ONE CAPSULE BY MOUTH DAILY 10/28/2016 04/25/2017 Inactive Xanax 0.25 mg tablet RxNorm: 648384 1 Tablet(s) PO TID PRN as needed 10/08/2016 12/06/2016 Inactive NEED TO GIVE #90 WITH NEXT REFILL Kenalog 40 mg/mL suspension for injection RxNorm: 9869499 Milliliter(s) Inj 09/15/2016 09/15/2016 Inactive tramadol 50 mg tablet RxNorm: 719000 Tablet(s) TAKE 2 TABLETS BY MOUTH TWICE DAILY 08/18/2016 02/12/2017 Inactive Generic For:ULTRAM 50 MG TABLET N O T I C E Last quantity doesn't match original quantity(Response to an electronic controlled substance refill request [id number]) potassium chloride ER 10 mEq capsule,extended release RxNorm: 868932 TAKE ONE CAPSULE BY MOUTH DAILY NEEDED 08/03/2016 01/29/2017 Inactive potassium chloride ER 10 mEq capsule,extended release RxNorm: 178474 1 Capsule(s) PO QDAY PRN 06/18/2016 08/02/2016 Inactive furosemide 20 mg tablet RxNorm: 506451 1 Tablet(s) PO daily as needed for swelling 06/18/2016 06/12/2017 Inactive 2 daily x 1 week then daily Carafate 1 gram tablet RxNorm: 612079 1 Tablet(s) PO daily 04/24/2016 04/18/2017 Inactive Cymbalta 60 mg capsule,delayed release RxNorm: 610365 1 Capsule(s) PO daily 04/24/2016 10/20/2016 Inactive montelukast 10 mg tablet RxNorm: 356732 1 Tablet(s) PO QHS 04/24/2016 04/18/2017 Inactive omeprazole 20 mg capsule,delayed release RxNorm: 644634 Capsule(s) 1 Capsule(s) PO daily 04/24/2016 05/31/2017 Inactive ropinirole 1 mg tablet RxNorm: 322350 2 Tablet(s) PO QHS 04/24/2016 04/18/2017 Inactive furosemide 20 mg tablet RxNorm: 440694 1 Tablet(s) PO daily as needed for swelling 04/24/2016 06/17/2016 Inactive labetalol 100 mg tablet RxNorm: 109851 1 Tablet(s) PO BID 04/24/2016 04/18/2017 Inactive amlodipine 5 mg tablet RxNorm: 730928 Tablet(s) TAKE 1 TABLET BY MOUTH TWICE DAILY 04/24/2016 04/18/2017 Inactive Transferring from [facility] Xanax 0.25 mg tablet RxNorm: 188541 1 Tablet(s) PO TID PRN as needed 02/25/2016 03/25/2016 Inactive NEED TO GIVE #90 WITH NEXT REFILL Xanax 0.25 mg tablet RxNorm: 734269 1 Tablet(s) PO BID PRN as needed 02/19/2016 02/24/2016 Inactive [SAVINGS FOR UNINSURED PATIENTS -- BIN:[id number], PCN: ASPROD1, Group: [id number], ID# [id number], Process claim through uberall, for questions: . THIS IS NOT INSURANCE.] Cymbalta 60 mg capsule,delayed release RxNorm: 666950 1 Capsule(s) PO daily 01/28/2016 04/23/2016 Inactive ropinirole 1 mg tablet RxNorm: 910945 1 Tablet(s) PO BID TAKE 1 TABLET BY MOUTH DAILY EVERY NIGHT 01/28/2016 04/23/2016 Inactive Generic For:REQUIP 1 MG TABLET tramadol 50 mg tablet RxNorm: 864594 Tablet(s) TAKE 2 TABLETS BY MOUTH TWICE DAILY 01/16/2016 07/13/2016 Inactive Generic For:ULTRAM 50 MG TABLET N O T I C E Last quantity doesn't match original quantity(Response to an electronic controlled substance refill request - RxReferenceNumber: [id number]) omeprazole 20 mg capsule,delayed release RxNorm: 539568 1 Tablet(s) PO daily 1 Capsule(s) PO daily 12/11/2015 04/23/2016 Inactive pravastatin 10 mg tablet RxNorm: 263096 1 Tablet(s) PO QHS TAKE 1 TABLET BY MOUTH EVERY NIGHT 11/28/2015 01/27/2016 Inactive Generic For:PRAVACHOL 10 MG TABLET furosemide 20 mg tablet RxNorm: 079169 1 Tablet(s) PO daily as needed for swelling 11/12/2015 04/23/2016 Inactive pravastatin 10 mg tablet RxNorm: 504195 1 Tablet(s) PO QHS TAKE 1 TABLET BY MOUTH EVERY NIGHT 11/07/2015 11/27/2015 Inactive Generic For:PRAVACHOL 10 MG TABLET Xanax 0.25 mg tablet RxNorm: 333914 1 Tablet(s) PO BID PRN as needed 10/28/2015 01/25/2016 Inactive [SAVINGS FOR UNINSURED PATIENTS -- BIN:340700, PCN: ASPROD1, Group: AME08, ID# [id number], Process claim through uberall, for questions: . THIS IS NOT INSURANCE.] Viberzi 75 mg tablet RxNorm: 3748783 1 Tablet(s) PO BID 10/10/2015 10/10/2015 Inactive doxycycline hyclate 100 mg tablet RxNorm: 662723 1 Tablet(s) PO BID 10/10/2015 10/23/2015 Inactive Vitamins B Complex capsule RxNorm: 1 Capsule(s) PO daily 09/12/2015 No Stop Date Active Vitamin D3 1,000 unit tablet RxNorm: 105508 3-4 Tablet(s) PO daily 09/12/2015 No Stop Date Active Augmentin 500 mg-125 mg tablet RxNorm: 029987 1 Tablet(s) PO BID 07/09/2015 2015 Inactive probiotic one bid x 7 days Augmentin 500 mg-125 mg tablet RxNorm: 320333 1 Tablet(s) PO BID 07/09/2015 07/08/2015 Inactive Xanax 0.25 mg tablet RxNorm: 707919 1 Tablet(s) PO BID PRN as needed 07/01/2015 09/28/2015 Inactive [SAVINGS FOR UNINSURED PATIENTS -- BIN:368676, PCN: ASPROD1, Group: [facility], ID# [id number], Process claim through uberall, for questions: . THIS IS NOT INSURANCE.] sertraline 100 mg tablet RxNorm: 386478 TAKE 1 TABLET BY MOUTH TWICE DAILY 07/01/2015 01/27/2016 Inactive Generic For:*ZOLOFT 100MG TABLET N O T I C E Last quantity doesn't match original quantity amlodipine 5 mg tablet RxNorm: 201915 TAKE 1 TABLET BY MOUTH TWICE DAILY 06/26/2015 04/23/2016 Inactive Generic For:NORVASC 5 MG TABLET N O T I C E Last quantity doesn't match original quantity amlodipine 5 mg tablet RxNorm: 513283 Tablet(s) 1 Tablet(s) PO BID 06/25/2015 06/25/2015 Inactive ropinirole 1 mg tablet RxNorm: 288218 TAKE 1 TABLET BY MOUTH DAILY EVERY NIGHT 05/22/2015 01/27/2016 Inactive Generic For:REQUIP 1 MG TABLET ropinirole 1 mg tablet RxNorm: 468688 Tablet(s) 1 Tablet(s) PO QPM 05/22/2015 05/21/2015 Inactive pravastatin 10 mg tablet RxNorm: 971015 TAKE 1 TABLET BY MOUTH EVERY NIGHT 05/14/2015 11/06/2015 Inactive Generic For:PRAVACHOL 10 MG TABLET tramadol 50 mg tablet RxNorm: 909098 2 Tablet(s) PO BID 04/25/2015 01/18/2016 Inactive labetalol 100 mg tablet RxNorm: 859919 1 Tablet(s) PO BID 04/09/2015 04/23/2016 Inactive omeprazole 20 mg capsule,delayed release RxNorm: 152874 1 Tablet(s) PO daily 1 Capsule(s) PO daily 03/20/2015 12/10/2015 Inactive Carafate 1 gram tablet RxNorm: 621149 Tablet(s) PO UD 4 times daily x 1 week and then PRN 02/27/2015 02/21/2016 Inactive Xanax 0.25 mg tablet RxNorm: 767766 1 Tablet(s) PO BID PRN as needed 02/08/2015 06/06/2015 Inactive [SAVINGS FOR UNINSURED PATIENTS -- BIN:447535, PCN: ASPROD1, Group: [id number], ID# [id number], Process claim through uberall, for questions: . THIS IS NOT INSURANCE.] furosemide 20 mg tablet RxNorm: 109171 1 Tablet(s) PO daily as needed for swelling 10/25/2014 02/21/2015 Inactive ok to fill by Dr. Franklin 7-30-15 Xanax 0.25 mg tablet RxNorm: 923585 1 Tablet(s) PO BID PRN as needed 09/25/2014 01/21/2015 Inactive [SAVINGS FOR UNINSURED PATIENTS -- BIN:977185, PCN: ASPROD1, Group: AME08, ID# [id number], Process claim through uberall, for questions: . THIS IS NOT INSURANCE.] pravastatin 10 mg tablet RxNorm: 426327 TAKE 1 TABLET BY MOUTH EVERY NIGHT 09/06/2014 04/03/2015 Inactive Generic For:PRAVACHOL 10 MG TABLET tramadol 50 mg tablet RxNorm: 743892 TAKE 2 TABLETS BY MOUTH TWICE DAILY 08/02/2014 01/15/2016 Inactive Generic For:ULTRAM 50 MG TABLET N O T I C E Last quantity doesn't match original quantity(Response to an electronic controlled substance refill request - [facility]: [id number]) tramadol 50 mg tablet RxNorm: 461624 2 Tablet(s) PO BID 08/01/2014 08/02/2014 Inactive acyclovir 400 mg tablet RxNorm: 519191 2 Tablet(s) PO QID 07/16/2014 07/25/2014 Inactive sertraline 100 mg tablet RxNorm: 011763 1 Tablet(s) PO BID 1 Tablet(s) PO BID 06/13/2014 12/09/2014 Inactive sertraline 100 mg tablet RxNorm: 988413 1 Tablet(s) PO BID 06/13/2014 06/12/2014 Inactive magnesium oxide 400 mg tablet RxNorm: 203345 1 Tablet(s) PO daily 05/25/2014 2014 Inactive ropinirole 1 mg tablet RxNorm: 672428 1 Tablet(s) PO QPM 05/25/2014 05/19/2015 Inactive amlodipine 5 mg tablet RxNorm: 320434 1 Tablet(s) PO BID 05/25/2014 05/19/2015 Inactive prednisone 10 mg tablets in a dose pack RxNorm: 786665 1 Tablet(s) PO UD 04/06/2014 04/10/2014 Inactive 6-5-4-3-2-1 Xanax 0.25 mg tablet RxNorm: 043824 1 Tablet(s) PO BID PRN as needed 04/04/2014 07/02/2014 Inactive [SAVINGS FOR UNINSURED PATIENTS -- BIN:528177, PCN: ASPROD1, Group: AME08, ID# [id number], Process claim through uberall, for questions: . THIS IS NOT INSURANCE.] prednisone 20 mg tablet RxNorm: 875432 3 Tablet(s) PO daily 04/02/2014 04/05/2014 Inactive [SAVINGS FOR UNINSURED PATIENTS -- BIN:357455, PCN: ASPROD1, Group: AME08, ID# [id number], Process claim through uberall, for questions: . THIS IS NOT INSURANCE.] cefdinir 300 mg capsule RxNorm: 733047 1 Capsule(s) PO BID 04/02/2014 04/11/2014 Inactive [SAVINGS FOR UNINSURED PATIENTS -- BIN:017876, PCN: ASPROD1, Group: AME08, ID# [id number], Process claim through MedImp[employer], for questions: . THIS IS NOT INSURANCE.] Kenalog 40 mg/mL suspension for injection RxNorm: 0872650 Milliliter(s) Inj 04/02/2014 04/02/2014 Inactive [SAVINGS FOR UNINSURED PATIENTS -- BIN:742484, PCN: ASPROD1, Group: AME08, ID# [id number], Process claim through MedImp[employer], for questions: . THIS IS NOT INSURANCE.] ceftriaxone 500 mg solution for injection RxNorm: 483006 Inj 04/02/2014 04/02/2014 Inactive [SAVINGS FOR UNINSURED PATIENTS -- BIN:128741, PCN: ASPROD1, Group: AME08, ID# [id number], Process claim through [employer]Imp[employer], for questions: . THIS IS NOT INSURANCE.] albuterol sulfate 2.5 mg/0.5 mL solution for nebulization RxNorm: 134824 1 treatment INH QID and as needed for dyspnea 04/02/2014 05/31/2014 Inactive [SAVINGS FOR UNINSURED PATIENTS -- BIN:230239, PCN: ASPROD1, Group: AME08, ID# [id number], Process claim through MedImp[employer], for questions: . THIS IS NOT INSURANCE.] azithromycin 500 mg tablet RxNorm: 513940 1 Tablet(s) PO daily 04/02/2014 04/06/2014 Inactive [SAVINGS FOR UNINSURED PATIENTS -- BIN:556092, PCN: ASPROD1, Group: AME08, ID# [id number], Process claim through MedImpact, for questions: . THIS IS NOT INSURANCE.] omeprazole 20 mg capsule,delayed release RxNorm: 514508 1 Tablet(s) PO daily 1 Capsule(s) PO daily 02/26/2014 06/25/2014 Inactive Xanax 0.25 mg tablet RxNorm: 228239 1 Tablet(s) PO BID PRN as needed 02/01/2014 04/03/2014 Inactive [SAVINGS FOR UNINSURED PATIENTS -- BIN:660651, PCN: ASPROD1, Group: AME08, ID# [id number], Process claim through MedImp[employer], for questions: . THIS IS NOT INSURANCE.] Xanax 0.25 mg tablet RxNorm: 199804 1 Tablet(s) PO HS PRN as needed 01/04/2014 01/31/2014 Inactive [SAVINGS FOR UNINSURED PATIENTS -- BIN:708728, PCN: ASPROD1, Group: AME08, ID# [id number], Process claim through MedImpact, for questions: . THIS IS NOT INSURANCE.] pravastatin 10 mg tablet RxNorm: 737042 1 Tablet(s) PO QHS 12/21/2013 12/20/2013 Inactive pravastatin 10 mg tablet RxNorm: 711851 1 Tablet(s) PO QHS 12/21/2013 07/18/2014 Inactive [SAVINGS FOR UNINSURED PATIENTS -- BIN:981173, PCN: ASPROD1, Group: AME08, ID# [id number], Process claim through MedImpact, for questions: . THIS IS NOT INSURANCE.] Hytrin 1 mg tablet RxNorm: 035337 1 Tablet(s) PO BID 12/21/2013 04/08/2015 Inactive [SAVINGS FOR UNINSURED PATIENTS -- BIN:575345, PCN: ASPROD1, Group: AME08, ID# [id number], Process claim through MedImpact, for questions: . THIS IS NOT INSURANCE.] Hytrin 1 mg tablet RxNorm: 470817 1 Tablet(s) PO daily 12/18/2013 12/20/2013 Inactive [SAVINGS FOR UNINSURED PATIENTS -- BIN:092493, PCN: ASPROD1, Group: AME08, ID# [id number], Process claim through MedImpact, for questions: . THIS IS NOT INSURANCE.] sertraline 100 mg tablet RxNorm: 817698 1 Tablet(s) PO QHS 12/14/2013 12/08/2014 Inactive [SAVINGS FOR UNINSURED PATIENTS -- BIN:091853, PCN: ASPROD1, Group: AME08, ID# [id number], Process claim through uberall, for questions: . THIS IS NOT INSURANCE.] Xanax 0.25 mg tablet RxNorm: 526470 1 Tablet(s) PO HS PRN as needed 12/13/2013 01/03/2014 Inactive [SAVINGS FOR UNINSURED PATIENTS -- BIN:671541, PCN: ASPROD1, Group: AME08, ID# [id number], Process claim through [employer]irc[employer], for questions: . THIS IS NOT INSURANCE.] tramadol 50 mg tablet RxNorm: 532997 2 Tablet(s) PO BID 11/08/2013 04/24/2015 Inactive Xanax 0.25 mg tablet RxNorm: 173337 1 Tablet(s) PO HS PRN as needed 10/19/2013 10/18/2013 Inactive Xanax 0.25 mg tablet RxNorm: 314835 1 Tablet(s) PO HS PRN as needed 10/19/2013 12/12/2013 Inactive Carafate 1 gram tablet RxNorm: 917676 Tablet(s) PO dissolve 1 tab QID x 1 week, then TID x 1 week, then BID x 1 week 09/07/2013 02/26/2015 Inactive omeprazole 20 mg capsule,delayed release RxNorm: 174846 1 Capsule(s) PO daily 09/07/2013 09/06/2013 Inactive omeprazole 20 mg capsule,delayed release RxNorm: 270769 1 Capsule(s) PO daily 09/07/2013 02/26/2014 Inactive prednisone 10 mg tablet RxNorm: 622399 1 Tablet(s) PO 08/25/2013 12/13/2013 Inactive prednisone taper Zithromax Z-Bon 250 mg tablet RxNorm: 685813 Tablet(s) PO as directed 08/25/2013 12/13/2013 Inactive Zithromax Z-Bon 250 mg tablet RxNorm: 980495 Tablet(s) PO as directed 08/04/2013 08/24/2013 Inactive Xanax 0.25 mg tablet RxNorm: 176333 1 Tablet(s) PO HS PRN 08/01/2013 10/18/2013 Inactive Kenalog 40 mg/mL suspension for injection RxNorm: 5599857 Milliliter(s) Inj 08/01/2013 08/01/2013 Inactive tramadol 50 mg tablet RxNorm: 125157 2 Tablet(s) PO BID 05/02/2013 11/07/2013 Inactive carvedilol 25 mg tablet RxNorm: 798341 1 Tablet(s) PO BID 05/02/2013 12/13/2013 Inactive magnesium oxide 400 mg tablet RxNorm: 846342 1 Tablet(s) PO daily 05/02/2013 04/26/2014 Inactive furosemide 20 mg tablet RxNorm: 654925 2 Tablet(s) PO daily 05/02/2013 2014 Inactive amlodipine 5 mg tablet RxNorm: 672165 1 Tablet(s) PO BID 05/02/2013 04/26/2014 Inactive sertraline 100 mg tablet RxNorm: 155817 1 Tablet(s) PO BID 05/02/2013 12/13/2013 Inactive ropinirole 1 mg tablet RxNorm: 623763 1 Tablet(s) PO QPM 05/02/2013 04/26/2014 Inactive pantoprazole 40 mg tablet,delayed release RxNorm: 678881 1 Tablet(s) PO daily 05/02/2013 2014 Inactive gabapentin 600 mg tablet RxNorm: 155207 1 Tablet(s) PO BID 05/02/2013 2014 Inactive aspirin 81 mg tablet,delayed release RxNorm: 361386 1 Tablet(s) PO daily No Start Date Active ferrous fumarate 325 mg (106 mg iron) tablet RxNorm: 738234 1 Tablet(s) PO daily No Start Date 2014 Inactive amlodipine 5 mg tablet RxNorm: 660235 1 Tablet(s) PO BID No Start Date 05/01/2013 Inactive Vitamin B-12 2,500 mcg sublingual tablet RxNorm: 264956 1 Tablet(s) SL daily No Start Date 2014 Inactive Zithromax Z-Bon 250 mg tablet RxNorm: 023027 Tablet(s) PO as directed No Start Date 08/03/2013 Inactive sertraline 100 mg tablet RxNorm: 965223 1 Tablet(s) PO BID No Start Date 05/01/2013 Inactive Hytrin 1 mg tablet RxNorm: 585552 1 Tablet(s) PO BID No Start Date 12/17/2013 Inactive potassium chloride ER 10 mEq capsule,extended release RxNorm: 947874 1 Capsule(s) PO QDAY PRN No Start Date 06/17/2016 Inactive Xanax 0.25 mg tablet RxNorm: 937661 1 Tablet(s) PO HS PRN No Start Date 07/31/2013 Inactive gabapentin 600 mg tablet RxNorm: 848192 1 Tablet(s) PO BID No Start Date 05/01/2013 Inactive ropinirole 1 mg tablet RxNorm: 833072 1 Tablet(s) PO QPM No Start Date 05/01/2013 Inactive Vitamin D3 1,000 unit tablet RxNorm: 263551 2 Tablet(s) PO daily No Start Date 09/11/2015 Inactive furosemide 20 mg tablet RxNorm: 904192 1 Tablet(s) PO BID No Start Date 05/01/2013 Inactive tramadol 50 mg tablet RxNorm: 706629 2 Tablet(s) PO BID No Start Date 05/01/2013 Inactive Carafate 1 gram tablet RxNorm: 560632 Tablet(s) PO dissolve 1 tab QID x 1 week, then TID x 1 week, then BID x 1 week No Start Date 09/06/2013 Inactive pantoprazole 40 mg tablet,delayed release RxNorm: 782712 1 Tablet(s) PO daily No Start Date 05/01/2013 Inactive montelukast 10 mg tablet RxNorm: 612448 1 Tablet(s) PO QHS No Start Date 04/23/2016 Inactive magnesium oxide 400 mg tablet RxNorm: 315934 1 Tablet(s) PO daily No Start Date 05/01/2013 Inactive prednisone 10 mg tablet RxNorm: 259844 1 Tablet(s) PO No Start Date 08/24/2013 Inactive prednisone taper carvedilol 25 mg tablet RxNorm: 173270 1 Tablet(s) PO BID No Start Date 05/01/2013 Inactive baclofen 10 mg tablet RxNorm: 289521 2 Tablet(s) PO daily No Start Date 12/13/2013 Inactive Vitamin B Complex capsule RxNorm: 1 Capsule(s) PO daily No Start Date 2014 Inactive Medication Administered Medication Codes Instructions Start Date Status Kenalog 40 mg/mL suspension for injection RxNorm: 3162440 Milliliter 09/15/2016 No longer Active Kenalog 40 mg/mL suspension for injection RxNorm: 0907462 Milliliter 04/02/2014 No longer Active ceftriaxone 500 mg solution for injection RxNorm: 592511 04/02/2014 No longer Active Kenalog 40 mg/mL suspension for injection RxNorm: 3029401 Milliliter 08/01/2013 No longer Active Immunizations Vaccine [...] ICD-9: 486 04/02/2014 COUGH ICD-9: 786.2 04/02/2014 OT SCREENING MAMMOGRAM ICD-9: V76.12 12/27/2013 Rib pain [...] Code Item Item Code Result Date Mayda 841377 MAYDA (MORTEZA) SCREEN NONE DETECTED 06/25/2017 Ra Factor Olk966 RA FACTOR <10 IU/ml 06/24/2017 D-Dimer D-DIMER [...] 38.4 % 06/01/2017 Cbc With Differential Ord2 [place]% 5.8 % 06/01/2017 Cbc With Differential Ord2 [...] 2.17 K/ul 06/01/2017 Cbc With Differential Ord2 [place] ABS# 0.3 K/ul 06/01/2017 Cbc With Differential Ord2 Eos ABS# 0.1 K/ul 06/01/2017 Cbc With Differential Ord2 Baso ABS# 0.1 K/ul 06/01/2017 Comp Metabolic Nsl302 NA 137 mEq/L 06/01/2017 Comp Metabolic Kgj302 K 3.7 mEq/L 06/01/2017 Comp Metabolic Gxw467 CL 100 mEq/L 06/01/2017 Comp Metabolic Lzq933 CO2 28.0 mEq/L 06/01/2017 Comp Metabolic Lgb197 ANION GAP 13 06/01/2017 Comp Metabolic Dla827 GLUCOSE 94 mg/dL 06/01/2017 Comp Metabolic Gvc231 Creat 1.3 mg/dL 06/01/2017 Comp Metabolic Dsu307 eGFR 45 ml/min/1.73m2 06/01/2017 Comp Metabolic Lje386 BUN 12 mg/dL 06/01/2017 Comp Metabolic Nqk387 B/C Ratio 9.6 Ratio 06/01/2017 Comp Metabolic Zvn238 CALCIUM 9.5 mg/dL 06/01/2017 Comp Metabolic Lzv470 ALK PHOS 77 U/L 06/01/2017 Comp Metabolic Uob322 AST(SGOT) 17 U/L 06/01/2017 Comp Metabolic Gmg436 ALT(SGPT) 15 U/L 06/01/2017 Comp Metabolic Pam604 BILI T 0.5 mg/dL 06/01/2017 Comp Metabolic Xte454 ALBUMIN 4.4 g/dL 06/01/2017 Comp Metabolic Bbc587 TPRO 7.0 g/dL 06/01/2017 Comp Metabolic Pid705 GLOB 2.6 g/dL 06/01/2017 Comp Metabolic Yar263 A/G Ratio 1.7 Ratio 06/01/2017 Comp Metabolic Bkx308 Osmo 273 mOsmo 06/01/2017 Mayda 149202 MAYDA (MORTEZA) SCREEN NONE DETECTED 06/22/2016 C-Reactive Protein Qnt Crqnt CRP 0.3 mg/dl 06/19/2016 Sed Rate Ord21 ESR 11 mm/hr 06/19/2016 Ra Factor Pgt843 RA FACTOR <10 IU/ml 06/19/2016 Sed Rate Ord21 ESR 14 mm/hr 02/25/2016 C-Reactive Protein Qnt Crqnt CRP 0.3 mg/dl 02/25/2016 Comp Metabolic Sie839 NA 136 mEq/L 02/25/2016 Comp Metabolic Vde653 K 3.9 mEq/L 02/25/2016 Comp Metabolic Kzf434 CL 103 mEq/L 02/25/2016 Comp Metabolic Nfe731 CO2 27.0 mEq/L 02/25/2016 Comp Metabolic Byp639 ANION GAP 10 02/25/2016 Comp Metabolic Cgr418 GLUCOSE 82 mg/dL 02/25/2016 Comp Metabolic Skb889 Creat 1.3 mg/dL 02/25/2016 Comp Metabolic Ybc633 eGFR 45 ml/min/1.73m2 02/25/2016 Comp Metabolic Qgt881 BUN 13 mg/dL 02/25/2016 Comp Metabolic Rme194 B/C Ratio 10.3 Ratio 02/25/2016 Comp Metabolic Dsl319 CALCIUM 9.5 mg/dL 02/25/2016 Comp Metabolic Uzg424 ALK PHOS 70 U/L 02/25/2016 Comp Metabolic Psw980 AST(SGOT) 17 U/L 02/25/2016 Comp Metabolic Tuh968 ALT(SGPT) 13 U/L 02/25/2016 Comp Metabolic Hdk647 BILI T 0.4 mg/dL 02/25/2016 Comp Metabolic Edu823 ALBUMIN 4.2 g/dL 02/25/2016 Comp Metabolic Oya172 TPRO 6.6 g/dL 02/25/2016 Comp Metabolic Pdp713 GLOB 2.4 g/dL 02/25/2016 Comp Metabolic Cqx377 A/G Ratio 1.7 Ratio 02/25/2016 Comp Metabolic Tiw840 Osmo 271 mOsmo 02/25/2016 Cbc With Differential [...] 29.1 pg 02/25/2016 Cbc With Differential Ord2 [place]% 6.8 % 02/25/2016 Cbc With Differential Ord2 [...] 1.62 K/ul 02/25/2016 Cbc With Differential Ord2 [place] ABS# 0.4 K/ul 02/25/2016 Cbc With Differential Ord2 Eos ABS# 0.1 K/ul 02/25/2016 Cbc With Differential Ord2 Baso ABS# 0.0 K/ul 02/25/2016 Tsh Ord6 hTSH II 1.63 uIU/mL 02/25/2016 [place] Spotted Fever Igg/Igm [id number] [place] SPOTTED FEVER IGM EIA . 09/17/2015 [place] Spotted Fever Igg/Igm [id number] RMSF, IGM 0.27 index 09/17/2015 [place] Spotted Fever Igg/Igm [id number] BENIGNO MT SPOTTED FEVER IGG EIA FLEX . 09/17/2015 [place] Spotted Fever Igg/Igm 263334 RMSF, IGG SCREEN-FLEX Negative 09/17/2015 Ehrlichia Chaffeensis Antibody Igm [id number] EHRLICHIA CHAFFEENSIS IGM < 1:16 09/16/2015 Ehrlichia Chaffeensis Antibody Igg 894169 EHRLICHIA CHAFFEENSIS IGG 1:256 09/16/2015 Lymes Disease Total Antibodies With Western Blot Reflex 746248 B. BURGDORFERI, IGG/IGM 0.10 LI 09/14/2015 Lymes Disease Total Antibodies With Western Blot Reflex [id number] 09/14/2015 Vitamin D 25 Oh Asq5262 VITAMIN D, 25 HYDROXY 59.60 ng/mL 09/13/2015 Sed Rate Ord21 ESR 10 mm/hr 09/12/2015 Comp Metabolic Zzc906 NA 139 mEq/L 09/12/2015 Comp Metabolic Xhj033 K 3.8 mEq/L 09/12/2015 Comp Metabolic Ehe177 CL 103 mEq/L 09/12/2015 Comp Metabolic Nbi984 CO2 27.0 mEq/L 09/12/2015 Comp Metabolic Vmy539 ANION GAP 13 09/12/2015 Comp Metabolic Agb176 GLUCOSE 91 mg/dL 09/12/2015 Comp Metabolic Ggr755 Creat 1.2 mg/dL 09/12/2015 Comp Metabolic Zqg057 eGFR 47 ml/min/1.73m2 09/12/2015 Comp Metabolic Yxj209 BUN 20 mg/dL 09/12/2015 Comp Metabolic Wqj746 B/C Ratio 16.3 Ratio 09/12/2015 Comp Metabolic Lyp453 CALCIUM 9.3 mg/dL 09/12/2015 Comp Metabolic Ggt581 ALK PHOS 55 U/L 09/12/2015 Comp Metabolic Wuu623 AST(SGOT) 19 U/L 09/12/2015 Comp Metabolic Kfd120 ALT(SGPT) 14 U/L 09/12/2015 Comp Metabolic Eli038 BILI T 0.6 mg/dL 09/12/2015 Comp Metabolic Ooj547 ALBUMIN 4.3 g/dL 09/12/2015 Comp Metabolic Wdq178 TPRO 6.8 g/dL 09/12/2015 Comp Metabolic Vuo682 GLOB 2.5 g/dL 09/12/2015 Comp Metabolic Jsx979 A/G Ratio 1.8 Ratio 09/12/2015 Comp Metabolic Cga803 Osmo 280 mOsmo 09/12/2015 B12 Wen076 B12 >1500.00 pg/ml 09/12/2015 Cbc With Differential [...] 28.9 pg 09/12/2015 Cbc With Differential Ord2 [place]% 5.9 % 09/12/2015 Cbc With Differential Ord2 [...] 1.33 K/ul 09/12/2015 Cbc With Differential Ord2 [place] ABS# 0.3 K/ul 09/12/2015 Cbc With Differential [...] gingiva 10/06/2017 None Full Exam - General 1995 Ears/Nose/Throat lips/teeth/gingiva Overall: no masses 10/06/2017 None [...] Full Exam - General 1994 Neurologic coordination Xrpblb-smvd-rgerkg testing - left: dysmetria 05/11/2017 None Full Exam - General 1994 Neurologic coordination Ozofcg-kjjd-zyydnk testing - right: dysmetria 05/11/2017 None Full [...] Full Exam - General 1994 Neurologic coordination Pdxapg-mbax-frxjba testing - left: dysmetria 04/20/2016 None Full Exam - General 1994 Neurologic coordination Uxztcd-fimo-gzzhvl testing - right: dysmetria 04/20/2016 None Full [...] Full Exam - General 1994 Neurologic coordination Aqqvnc-kwhm-omskyo testing - left: dysmetria 02/25/2016 None Full Exam - General 1994 Neurologic coordination Suslea-lglv-wewnnj testing - right: dysmetria 02/25/2016 None Full [...] Full Exam - General 1994 Neurologic coordination Fpxsdz-jrmz-qxfspz testing - left: dysmetria 01/28/2016 None Full Exam - General 1994 Neurologic coordination Yclbhd-nfur-ikptvy testing - right: dysmetria 01/28/2016 None Full [...] palp - head/face Lesion: excoriation 07/16/2014 right cheondoism, redness right eyelid Full Exam - Dermatology [...] Procedure Codes Date THER/PROPH/DIAG INJ SC/IM CPT-4: 78083 09/15/2016 TRIAMCINOLONE ACET INJ NOS CPT-4: J3301 09/15/2016 ADMIN INFLUENZA VIRUS VAC CPT-4: G0008 01/08/2016 ADMIN PNEUMOCOCCAL VACCINE SNOMED CT: 95287820 CPT-4: G0009 01/08/2016 PNEUMOCOCCAL VACC 13 RIVERA IM Formatting Model/CDA Sections, Assigned to/Aliya Muñoz SNOMED CT: 12341306 CPT-4: 44280Isoewmu 01/08/2016 FLU VACC 4 RIVERA 3 YRS PLUS IM SNOMED CT: 22258883 CPT-4: 57368 01/08/2016 THER/PROPH/DIAG INJ SC/IM CPT-4: 60644 04/02/2014 TRIAMCINOLONE ACET INJ NOS CPT-4: J3301 04/02/2014 ROCEPHIN, PER 250 MG CPT- 4: J0696 04/02/2014 TRIAMCINOLONE ACET INJ NOS CPT-4: J3301 08/01/2013 THER/PROPH/DIAG INJ SC/IM CPT-4: 23125 08/01/2013 Vital Signs Date Vital 01/25/2018 Blood Pressure 1: 130/68 Code: 8480-6 BMI: 34.4 Code: 21754-0 Heart Rate 1: 91 bpm Height: 5'5" SpO2: 95% Weight: 207 lbs 10/06/2017 Blood Pressure 1: 118/78 Code: 8480-6 BMI: 34.3 Code: 71484-9 Heart Rate 1: 75 bpm Height: 5'5" SpO2: 98% Weight: 206 lbs 09/27/2017 Blood Pressure 1: 136/88 Code: 8480-6 BMI: 35.4 Code: 70666-6 Heart Rate 1: 86 bpm Height: 5'5" SpO2: 98% Weight: 213 lbs 07/23/2017 Blood Pressure 1: 106/58 Code: 8480-6 BMI: 34.8 Code: 69988-2 Heart Rate 1: 70 bpm Height: 5'5" SpO2: 96% Weight: 209 lbs 06/01/2017 Blood Pressure 1: 150/96 Code: 8480-6 BMI: 34.4 Code: 76370-4 Heart Rate 1: 82 bpm Height: 5'5" SpO2: 99% Weight: 207 lbs 05/11/2017 Blood Pressure 1: 144/90 Code: 8480-6 BMI: 34.6 Code: 18439-1 Heart Rate 1: 76 bpm Height: 5'5" SpO2: 98% Weight: 208 lbs 10/30/2016 Blood Pressure 1: 172/104 Code: 8480-6 Blood Pressure 1: 158/98 Code: 8480-6 BMI: 34.7 Code: 27075-3 Heart Rate 1: 70 bpm Height: 5'5" SpO2: 97% Temperature: 36.2 (C) / 97.1 (F) Weight: 208 lbs 10 oz 04/20/2016 Blood Pressure 1: 144/86 Code: 8480-6 BMI: 34.3 Code: 12561-7 Heart Rate 1: 68 bpm Height: 5'5" SpO2: 97% Weight: 206 lbs 02/25/2016 Blood Pressure 1: 122/82 Code: 8480-6 BMI: 34.4 Code: 82061-2 Heart Rate 1: 86 bpm Height: 5'5" SpO2: 94% Weight: 207 lbs 01/28/2016 Blood Pressure 1: 128/86 Code: 8480-6 BMI: 33.3 Code: 17626-2 Heart Rate 1: 86 bpm Height: 5'5" SpO2: 96% Weight: 200 lbs 11/14/2015 Blood Pressure 1: 138/88 Code: 8480-6 Blood Pressure 1: 140/90 Code: 8480-6 BMI: 33.3 Code: 49334-8 Heart Rate 1: 98 bpm Height: 5'5" SpO2: 97% Weight: 200 lbs 10/10/2015 Blood Pressure 1: 132/80 Code: 8480-6 BMI: 33.3 Code: 48846-5 Heart Rate 1: 74 bpm Height: 5'5" SpO2: 96% Weight: 200 lbs 09/12/2015 Blood Pressure 1: 148/90 Code: 8480-6 BMI: 32.9 Code: 87457-8 Heart Rate 1: 94 bpm Height: 5'5" SpO2: 97% Weight: 198 lbs 04/09/2015 Blood Pressure 1: 130/84 Code: 8480-6 Blood Pressure 1: 160/82 Code: 8480-6 BMI: 32.4 Code: 43685-5 Heart Rate 1: 74 bpm Height: 5'5" SpO2: 95% Weight: 195 lbs 10/05/2014 Blood Pressure 1: 140/80 Code: 8480-6 BMI: 30.5 Code: 36973-8 Heart Rate 1: 79 bpm Height: 5'5" SpO2: 98% Weight: 183 lbs 09/07/2014 Blood Pressure 1: 142/96 Code: 8480-6 BMI: 32.1 Code: 84043-1 Heart Rate 1: 72 bpm Height: 5'5" SpO2: 98% Temperature: 36.5 (C) / 97.7 (F) Weight: 193 lbs 07/16/2014 Blood Pressure 1: 138/82 Code: 8480-6 BMI: 31.8 Code: 26473-0 Heart Rate 1: 76 bpm Height: 5'5" Weight: 191 lbs 04/02/2014 Blood Pressure 1: 148/90 Code: 8480-6 BMI: 33.8 Code: 92351-2 Heart Rate 1: 68 bpm Height: 5'5" Temperature: 36.9 (C) / 98.4 (F) Weight: 203 lbs 12/14/2013 Blood Pressure 1: 140/88 Code: 8480-6 BMI: 35.3 Code: 61057-8 Heart Rate 1: 91 bpm Height: 5'5" SpO2: 97% Weight: 212 lbs 08/01/2013 Blood Pressure 1: 126/68 Code: 8480-6 BMI: 35.1 Code: 37417-0 Heart Rate 1: 76 bpm Height: 5'5" Temperature: 36.7 (C) / 98.1 (F) Weight: 211 lbs 05/02/2013 Blood Pressure 1: 118/86 Code: 8480-6 BMI: 34.9 Code: 71776-7 Heart Rate 1: 76 bpm Height: 5'5" Weight: 209 lbs 8 oz 04/18/2013 Blood Pressure 1: 118/60 Code: 8480-6 BMI: 35.3 Code: 08824-2 Heart Rate 1: 68 bpm Height: 5'5" [...] data Encounters Encounter Performer Location Codes Date ([id number]) 09766 EST. PATIENT, LEVEL III Diagnosis: Essential (primary) hypertension[ICD10: I10] Marilyn Lao MD, [facility] CPT-4: 98868 01/25/2018 [id number]) 81789 EST. PATIENT, LEVEL III Diagnosis: Nail dystrophy[ICD10: L60.3] Diagnosis: Localized edema[ICD10: R60.0] Marilyn Lao MD, [facility] CPT-4: 33858 10/06/2017 [id number]) 60928 EST. PATIENT, LEVEL IV Diagnosis: Essential (primary) hypertension[ICD10: I10] Diagnosis: Localized edema[ICD10: R60.0] [facility] CPT-4: 01533 09/27/2017 [id number]) 45452 EST. PATIENT, LEVEL IV Diagnosis: Generalized anxiety disorder[ICD10: F41.1] Diagnosis: Essential (primary) hypertension[ICD10: I10] Diagnosis: Chronic pain syndrome[ICD10: G89.4] [facility] CPT-4: 23770 07/23/2017 ([id number]) 37421 EST. PATIENT, LEVEL IV Diagnosis: Essential (primary) hypertension[ICD10: I10] Diagnosis: Chest pain, unspecified[ICD10: R07.9] Diagnosis: Chronic kidney disease, stage 3 (moderate)[ICD10: N18.3] Noa Lao MD, [facility] CPT-4: 54202 06/01/2017 75943 EST. PATIENT, LEVEL IV Diagnosis: Gastro-esophageal reflux disease without esophagitis[ICD10: K21.9] Anais Lao MD, [facility] CPT-4: 85100 05/11/2017 ([id number]) 16670 EST. PATIENT, LEVEL III Diagnosis: Essential (primary) hypertension[ICD10: I10] Diagnosis: Contusion of right lower leg, initial encounter[ICD10: S80.11XA] Noa Lao MD, [facility] CPT-4: 47655 10/30/2016 ([id number]) 36294 EST. PATIENT, LEVEL IV Diagnosis: Essential (primary) hypertension[ICD10: I10] Diagnosis: Generalized anxiety disorder[ICD10: F41.1] Marilyn Lao MD, [facility] CPT-4: 31248 04/20/2016 ([id number]) 29270 EST. PATIENT, LEVEL IV Diagnosis: Essential (primary) hypertension[ICD10: I10] Diagnosis: Chronic kidney disease, stage 3 (moderate)[ICD10: N18.3] Diagnosis: Generalized anxiety disorder[ICD10: F41.1] Diagnosis: Major depressive disorder, recurrent, moderate[ICD10: F33.1] Diagnosis: Shortness of breath[ICD10: R06.02] Noa Lao MD, [facility] CPT- 4: 05311 02/25/2016 ([id number]) 16467 EST. PATIENT, LEVEL IV Diagnosis: Generalized anxiety disorder[ICD10: F41.1] Diagnosis: Major depressive disorder, recurrent, moderate[ICD10: F33.1] Diagnosis: Essential (primary) hypertension[ICD10: I10] Diagnosis: Restless legs syndrome[ICD10: G25.81] Diagnosis: Myalgia[ICD10: M79.1] Noa Lao MD, [facility] CPT-4: 69670 01/28/2016 ([id number]) 29468 EST. PATIENT, LEVEL III Diagnosis: Essential (primary) hypertension[ICD10: I10] Diagnosis: Insomnia, unspecified[ICD10: G47.00] Noa Lao MD, [facility] CPT-4: 33333 11/14/2015 ([id number]) 03220 EST. 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 PATIENT, LEVEL IV Diagnosis: Bitten or stung by nonvenomous insect and other nonvenomous arthropods, initial encounter[ICD10: W57.XXXA] Diagnosis: Other fatigue[ICD10: R53.83] Diagnosis: Vitamin D deficiency, unspecified[ICD10: E55.9] Diagnosis: Other vitamin B12 deficiency anemias[ICD10: D51.8] Diagnosis: Essential (primary) hypertension[ICD10: I10] Diagnosis: Iron deficiency[ICD10: E61.1] Noa Lao MD, [facility] CPT-4: 76632 09/12/2015 ([id number]) 47674 EST. PATIENT, LEVEL III Diagnosis: Essential (primary) hypertension[ICD10: I10] Diagnosis: Chronic kidney disease, stage 3 (moderate)[ICD10: N18.3] Noa Lao MD, [facility] CPT-4: 88709 04/09/2015 ([id number]) 33926 EST. PATIENT, LEVEL III Diagnosis: ESSENTIAL HYPERTENSION[ICD9: 401.9] Noa Lao MD, [facility] CPT-4: 07294 10/05/2014 ([id number]) 93592 EST. PATIENT, LEVEL IV Diagnosis: Easy bruising[ICD9: 782.9] Diagnosis: Iron deficiency anemia[ICD9: 280.9] Diagnosis: ESSENTIAL HYPERTENSION[ICD9: 401.9] Diagnosis: Chronic kidney disease, stage 3[ICD9: 585.3] Noa Lao MD, [facility] CPT-4: 12393 09/07/2014 ([id number]) 84457 EST. PATIENT, LEVEL III Diagnosis: Shingles[ICD9: 053.9] Marilyn Lao MD [facility] CPT-4: 06515 07/16/2014 ([id number]) 40721 EST. PATIENT, LEVEL III Diagnosis: PNEUMONIA (CAP)[ICD9: 486] Diagnosis: COUGH[ICD9: 786.2] Marilyn Lao MD, [facility] CPT-4: 09152 04/02/2014 ([id number]) 50163 EST. PATIENT, LEVEL III Diagnosis: ESSENTIAL HYPERTENSION[ICD9: 401.9] Diagnosis: Rib pain on left side[ICD9: 786.50] Diagnosis: EDEMA[ICD9: 782.3] Noa Lao MD, [facility] CPT-4: 08875 12/14/2013 ([id number]) 89552 EST. PATIENT, LEVEL IV Diagnosis: ESOPHAGEAL REFLUX[ICD9: 530.81] Diagnosis: Urge incontinence[ICD9: 788.31] Diagnosis: Elbow pain, right[ICD9: 719.42] Diagnosis: Snoring[ICD9: 786.09] Marilyn Lao MD, [facility] CPT-4: 93395 08/01/2013 ([id number]) 55941 EST. PATIENT, LEVEL IV Diagnosis: ESSENTIAL HYPERTENSION[SNOMED: 35392873] Diagnosis: EDEMA[ICD9: 782.3] Diagnosis: Chronic renal insufficiency, stage III (moderate)[ICD9: 585.3] Diagnosis: HYPERLIPIDEMIA[ICD9: 272.4] Marilyn Lao MD, [facility] CPT-4: 82963 05/02/2013 ([id number]) 82396 EST. PATIENT, LEVEL IV Diagnosis: ESSENTIAL HYPERTENSION[SNOMED: 27786033] Diagnosis: Restless leg[ICD9: 333.94] Marilyn Lao MD, [facility] CPT-4: 82352 04/18/2013 Plan of Care Planned Activity Notes [...] Appointment: Marilyn Lao WPtel: [phone] [facility] (15 min) Moderate 01/25/2018 Patient Education: Patient Medication Summary Completed 01/25/2018 Appointment: Marilyn Lao WPtel: [phone] [facility] (15 min) Moderate 01/06/2018 Patient Education: Patient Medication Summary Completed 10/26/2017 Care Plan: Comp Metabolic Cancelled 10/26/2017 Visit Plan: Tinea/Onychodystrophy - penlac prescribed, pt did not want to take medication by mouth for treatment. Edema - improved - continue current regimen. 10/06/2017 [phone] ([facility]) Moderate 10/06/2017 Patient [...] home. 09/27/2017 Appointment: [phone] [place] (15 min) Moderate 09/27/2017 Patient Education: [...] massage 07/23/2017 Appointment: Noa Orlando WPtel: [phone] [phone] (15 min) Moderate 07/23/2017 Patient Education: [...] worsens 06/01/2017 [phone] (30 min) Complex 06/01/2017 Patient Education: Patient Medication Summary Completed 06/01/2017 Care Plan: Referral Order SNOMED-CT : 589019858 Pending 06/01/2017 Visit Plan: Esophageal Reflux - the patient has been counseled against excessive intake of caffeine, spicy foods, peppermint, and cinnamon - all of which can exacerbate esophageal reflux. The patient is to take med ications as prescribed and call the office if the symptoms are not improving. 05/11/2017 Appointment: Anais Arrieta [facility]el[phone] [facility] (15 min) Moderate 05/11/2017 Patient Education: [...] Completed 09/15/2016 Appointment: Marilyn Lao WPtel: [phone] [facility] (15 min) Moderate 08/19/2016 Patient Education: Patient [...] current medications. 04/20/2016 Appointment: Marilyn Lao WPtel: [facility] (30 min) Complex 04/20/2016 Patient Education: Patient Medication Summary Completed 04/20/2016 Patient Education: Obesity Completed 04/20/2016 Patient Education: Hypertension Completed 04/20/2016 Appointment: Noa Orlando WPtel: [phone] [place] (30 min) Complex 03/16/2016 Referral: Ta [...] for follow up. Chronic renal disease-check labs Hiolblc-jcjefeiiqy-rwughxih with cymbalta-continue same dose for now -may take xanax TID PRN Multiple joint pain-check labs including inflammatory markers 02/25/2016 Appointment: Noa Orlando WPtel: [phone] [phone] (30 min) Complex 02/25/2016 Patient Education: Patient Medication Summary Completed 02/25/2016 Patient Education: Obesity Completed 02/25/2016 Patient Education: Hypertension Completed 02/25/2016 Care Plan: Referral Order SNOMED-CT : 462213256 Pending 02/25/2016 Visit Plan: Anxiety/Depression - the [...] in blood pressure readings at home. Restless ott-czthak-duspowrz requip to twice daily-monitor symptoms Myalgias-stop pravastatin 01/28/2016 Appointment: Noa Orlando WPtel: [phone] [phone] (30 min) Complex 01/28/2016 Patient Education: [...] Completed 10/10/2015 Appointment: [phone] (15 min) Moderate 10/08/2015 Visit Plan: Hypertension - well controlled - continue with current medications, continue with no added salt diet. Pt has been encouraged to exercise daily. The pt has been advised to call the office if there are any acute concerns about change in blood pressure readings at home. Iron deficiency- B12 deficiency-check labs Tick airf-ehlileg-iehgy tick panel 09/12/2015 Appointment: [facility] Orlando [facility]Ptel[phone] [place] (15 min) Moderate 09/12/2015 Patient [...] symptoms Iron deficiency anemia-stopped oral iron per galvanizer in March-recheck labs HTN-elevated today-monitor twice daily [...] Care Plan: COMPLETE CBC AUTOMATED LOINC : 02950-4 Ordered 09/07/2014 Visit Plan: Shingles - Herpes [...] Summary Completed 07/16/2014 Appointment: Marilyn Lao WPtel: [facility] Follow up 04/16/2014 Appointment: Sick 04/03/2014 Visit Plan: Pneumonia - Pt has been diagnosed with pneumonia by physical exam. Antibiotics started. The pt is aware of the diagnosis and the need for acute treatment of this illness. 04/02/2014 Patient Education: Patient Medication Summary Completed 04/02/2014 Appointment: Marilyn Lao WPtel: [facility] Sick 12/27/2013 Patient Education: Patient Medication Summary [...] further attempt to reduce peripheral edema. Night bahkur-ofrkids-ugvfi labs 12/14/2013 Appointment: Follow up 12/14/2013 Patient Education: Patient Medication Summary Completed 12/14/2013 Patient Education: Hypertension Completed 12/14/2013 Appointment: Noa Orlando WPtel: [phone] [phone] [facility] 12/01/2013 Appointment: Marilyn Lao WPtel: [facility] Sick 11/30/2013 Visit Plan: Allergies - chronic [...] symptoms. 08/01/2013 Appointment: Marilyn Lao WPtel: [phone] [facility] Follow up 08/01/2013 Patient Education: Patient Medication [...] able. 05/02/2013 Appointment: [phone] Follow up 05/02/2013 Patient Education: [...] juice. 04/18/2013 Appointment: [facility]el[phone] New Patient 04/18/2013 Patient Education: [...] in blood pressure readings at home. Restless qwo-kyldtb-cethodxl requip to twice daily-monitor symptoms Myalgias-stop pravastatin [...] for follow up. Chronic renal disease-check labs Fnmommx-qhoxtjhahr-osbvhuya with cymbalta-continue same dose for now -may [...] at home. Iron deficiency-B12 deficiency-check labs Tick jgtu-lpdmjjo-ejznr tick panel PATIENT IS TO CHECK BLOOD [...] symptoms Iron deficiency anemia-stopped oral iron per galvanizer in March-recheck labs HTN-elevated today-monitor twice daily [...] further attempt to reduce peripheral edema. Night dnwdxm-ddjsnvl-ilxzw labs
--- NOTE | 2018-11-04 16:22 | NUR ---
SPOKE WITH THE PATIENT ABOUT HER MEDICATIONS. SHE HAD A LIST WELL MOST OF HER BOTTLES. I COMPARED THESE WITH THE EXT MED HX. IN ADDITION TO THE EXT MED HX GRETCHEN FILLED VITAMIN D2 50,000 IU 08-06-18 #12 - SHE STATES SHE TAKES THIS WEEKLY ON TUESDAYS. SHE FILLED LABETALOL 200MG 2 BID #360 FOR 90 DAYS 10-31-18 - SHE STATES THIS WAS AN INCREASE IN DOSE AND PRIOR TO THIS SHE HAD 100MG TABLETS AND WAS TAKING 2 BID. ACCORDING TO THE EXT MED HX SHE FILLED THE 200MG 07-04-18 #120 FOR 30 DAYS PRIOR TO THIS FILL, WHICH WOULD BE PAST DUE. I DO NOT SEE 100MG TABS. SHE STATES SHE HAD 100MG TABS LEFTOVER FROM SOME TIME AGO, AFTER IN DEPTH CONVERSATION SHE STATES SHE WAS NOT CUTTING THEM IN HALF. REGARDLESS OF WHAT SHE WAS ACTUALLY TAKING PRIOR SHE KNOWS NOW SHE IS TO BE TAKING 400MG BID. HER TRAMADOL 50MG IS WRITTEN 2 BID HOWEVER SHE STATES SHE ONLY TAKES 1 BID SCHEDULED AND NEVER TAKES MORE. HER CARAFATE 1MG IS WRITTEN QID - SHE STATES SHE TAKES IT BID. HER ROPINIROLE 1MG IS WRITTEN 2 HS - SHE ONLY TAKES 1 HS HER POTASSIUM AND FUROSEMIDE ARE OVER DUE FOR REFILL, SHE STATS SHE TAKES THEM DAILY BUT DOES ADMIT SOMETIMES IF THEY ARE BUSY AND OUT OF THE HOUSE SHE MAY MISS A DOSE. 09-08-18 POTASSIUM 20MEQ #30 07-02-18 FUROSEMIDE 40MG #90 OTC MEDICATIONS: XYZAL HS B12 1000MCG DAILY MAG 400MG DAILY MELATONIN LEMON BALM 10MG HS ASPIRIN 325MG DAILY
--- OUTSIDE RECORDS SUMMARY | 2018-11-04 16:23 | XMS REPORT | CCD ---
Author Author Marilyn Lao Organization Marilyn Lao MD, [facility] Address [address] [place] [address] Phone Care Team Providers Care Technical Support Intern Name Role Phone PP Unavailable CCM Unavailable Summary Purpose Interface Exchange Insurance Providers Payer name Policy type / Coverage type Covered alliance party ID Effective Begin Date Effective End Date WPS Medicare Part B Medicare Part B [id number] Unknown [employer] and Life Medicare Part B [id number] Unknown Family history Mother Diagnosis Age At [...] Description Effective Dates Tobacco history SNOMED CT: 183748318 Never smoker but had significant smoke exposure during first marriage, [place]. 08/01/2013 Employment Unknown Retired doing as needed working for the [employer]. 05/02/2013 Marital status Unknown 04/18/[address]: 236784368 Never drinks alcohol 04/18/2013 Has the patient [...] Fill Instructions Xanax 0.5 mg tablet RxNorm: 492853 1 Tablet(s) PO TID PRN as needed 04/04/2018 08/01/2018 Active tramadol 50 mg tablet RxNorm: 802109 2 Tablet(s) PO BID 12/01/2017 01/29/2018 Inactive Cymbalta 60 mg capsule,delayed release RxNorm: 057116 TAKE ONE CAPSULE BY MOUTH DAILY 11/10/2017 11/04/2018 Active furosemide 40 mg tablet RxNorm: 088599 1 Tablet(s) PO daily 10/26/2017 10/20/2018 Active alprazolam 0.5 mg tablet RxNorm: 751145 1/2-1 Tablet(s) PO TID PRN as needed 10/12/2017 12/10/2017 Inactive Ciclodan 8 % topical solution RxNorm: 4779520 1 Application TOP daily x 7 days, clean off with alcohol then restart cycle of application until fungal infection is completely cleared 10/06/2017 01/03/2018 Inactive omeprazole 20 mg capsule,delayed release RxNorm: 774960 TAKE ONE CAPSULE BY MOUTH DAILY 10/04/2017 01/24/2018 Inactive losartan 100 mg tablet RxNorm: 085458 1 Tablet(s) PO daily 09/27/2017 03/25/2018 Inactive Xanax 0.25 mg tablet RxNorm: 814909 1 Tablet(s) PO TID PRN as needed 08/13/2017 10/11/2017 Inactive Xanax 0.5 mg tablet RxNorm: 780317 1 Tablet(s) PO TID PRN as needed 07/23/2017 11/18/2017 Inactive ropinirole 1 mg tablet RxNorm: 575138 TAKE TWO TABLETS BY MOUTH EVERY NIGHT AT BEDTIME 06/28/2017 06/22/2018 Active montelukast 10 mg tablet RxNorm: 115587 TAKE ONE TABLET BY MOUTH EVERY NIGHT AT BEDTIME 06/28/2017 06/22/2018 Active furosemide 20 mg tablet RxNorm: 579082 TAKE TWO TABLETS BY MOUTH DAILY FOR 7 DAYS THEN TAKE ONE TABLET BY MOUTH DAILY 06/28/2017 10/01/2017 Inactive losartan 50 mg tablet RxNorm: 574324 1 Tablet(s) PO daily 06/01/2017 09/26/2017 Inactive labetalol 100 mg tablet RxNorm: 962167 TAKE ONE TABLET BY MOUTH TWICE A DAY 05/26/2017 05/30/2017 Inactive labetalol 100 mg tablet RxNorm: 875848 1 Tablet(s) PO BID 05/26/2017 05/20/2018 Active Protonix 40 mg tablet,delayed release RxNorm: 510648 1 Tablet(s) PO daily 05/26/2017 05/20/2018 Active amlodipine 5 mg tablet RxNorm: 141964 TAKE ONE TABLET BY MOUTH TWICE A DAY 05/26/2017 09/26/2017 Inactive Carafate 1 gram tablet RxNorm: 117936 1 Tablet(s) PO QID 05/11/2017 09/07/2017 Inactive Protonix 40 mg tablet,delayed release RxNorm: 583090 1 Tablet(s) PO daily 05/11/2017 05/25/2017 Inactive Cymbalta 60 mg capsule,delayed release RxNorm: 621449 TAKE ONE CAPSULE BY MOUTH DAILY 05/05/2017 10/31/2017 Inactive Xanax 0.25 mg tablet RxNorm: 579487 1 Tablet(s) PO TID PRN as needed 02/09/2017 06/07/2017 Inactive Cymbalta 60 mg capsule,delayed release RxNorm: 217958 TAKE ONE CAPSULE BY MOUTH DAILY 10/28/2016 04/25/2017 Inactive Xanax 0.25 mg tablet RxNorm: 816232 1 Tablet(s) PO TID PRN as needed 10/08/2016 12/06/2016 Inactive NEED TO GIVE #90 WITH NEXT REFILL Kenalog 40 mg/mL suspension for injection RxNorm: 1147221 Milliliter(s) Inj 09/15/2016 09/15/2016 Inactive tramadol 50 mg tablet RxNorm: 877932 Tablet(s) TAKE 2 TABLETS BY MOUTH TWICE DAILY 08/18/2016 02/12/2017 Inactive Generic For:ULTRAM 50 MG TABLET N O T I C E Last quantity doesn't match original quantity(Response to an electronic controlled substance refill request [id number]) potassium chloride ER 10 mEq capsule,extended release RxNorm: 877679 TAKE ONE CAPSULE BY MOUTH DAILY NEEDED 08/03/2016 01/29/2017 Inactive potassium chloride ER 10 mEq capsule,extended release RxNorm: 094452 1 Capsule(s) PO QDAY PRN 06/18/2016 08/02/2016 Inactive furosemide 20 mg tablet RxNorm: 390294 1 Tablet(s) PO daily as needed for swelling 06/18/2016 06/12/2017 Inactive 2 daily x 1 week then daily Carafate 1 gram tablet RxNorm: 075746 1 Tablet(s) PO daily 04/24/2016 04/18/2017 Inactive Cymbalta 60 mg capsule,delayed release RxNorm: 737683 1 Capsule(s) PO daily 04/24/2016 10/20/2016 Inactive montelukast 10 mg tablet RxNorm: 763302 1 Tablet(s) PO QHS 04/24/2016 04/18/2017 Inactive omeprazole 20 mg capsule,delayed release RxNorm: 604291 Capsule(s) 1 Capsule(s) PO daily 04/24/2016 05/31/2017 Inactive ropinirole 1 mg tablet RxNorm: 291101 2 Tablet(s) PO QHS 04/24/2016 04/18/2017 Inactive furosemide 20 mg tablet RxNorm: 968947 1 Tablet(s) PO daily as needed for swelling 04/24/2016 06/17/2016 Inactive labetalol 100 mg tablet RxNorm: 553675 1 Tablet(s) PO BID 04/24/2016 04/18/2017 Inactive amlodipine 5 mg tablet RxNorm: 108156 Tablet(s) TAKE 1 TABLET BY MOUTH TWICE DAILY 04/24/2016 04/18/2017 Inactive Transferring from [facility]if Xanax 0.25 mg tablet RxNorm: 445299 1 Tablet(s) PO TID PRN as needed 02/25/2016 03/25/2016 Inactive NEED TO GIVE #90 WITH NEXT REFILL Xanax 0.25 mg tablet RxNorm: 971881 1 Tablet(s) PO BID PRN as needed 02/19/2016 02/24/2016 Inactive [SAVINGS FOR UNINSURED PATIENTS -- BIN:928364, PCN: ASPROD1, Group: AME08, ID# [id number], Process claim through Catmoji, for questions: . THIS IS NOT INSURANCE.] Cymbalta 60 mg capsule,delayed release RxNorm: 185930 1 Capsule(s) PO daily 01/28/2016 04/23/2016 Inactive ropinirole 1 mg tablet RxNorm: 655845 1 Tablet(s) PO BID TAKE 1 TABLET BY MOUTH DAILY EVERY NIGHT 01/28/2016 04/23/2016 Inactive Generic For:REQUIP 1 MG TABLET tramadol 50 mg tablet RxNorm: 312870 Tablet(s) TAKE 2 TABLETS BY MOUTH TWICE DAILY 01/16/2016 07/13/2016 Inactive Generic For:ULTRAM 50 MG TABLET N O T I C E Last quantity doesn't match original quantity(Response to an electronic controlled substance refill request - RxReferenceNumber: [id number]) omeprazole 20 mg capsule,delayed release RxNorm: 154543 1 Tablet(s) PO daily 1 Capsule(s) PO daily 12/11/2015 04/23/2016 Inactive pravastatin 10 mg tablet RxNorm: 350856 1 Tablet(s) PO QHS TAKE 1 TABLET BY MOUTH EVERY NIGHT 11/28/2015 01/27/2016 Inactive Generic For:PRAVACHOL 10 MG TABLET furosemide 20 mg tablet RxNorm: 948943 1 Tablet(s) PO daily as needed for swelling 11/12/2015 04/23/2016 Inactive pravastatin 10 mg tablet RxNorm: 215706 1 Tablet(s) PO QHS TAKE 1 TABLET BY MOUTH EVERY NIGHT 11/07/2015 11/27/2015 Inactive Generic For:PRAVACHOL 10 MG TABLET Xanax 0.25 mg tablet RxNorm: 562767 1 Tablet(s) PO BID PRN as needed 10/28/2015 01/25/2016 Inactive [SAVINGS FOR UNINSURED PATIENTS -- BIN:044457, PCN: ASPROD1, Group: AME08, ID# [id number], Process claim through Catmoji, for questions: . THIS IS NOT INSURANCE.] Viberzi 75 mg tablet RxNorm: 0830164 1 Tablet(s) PO BID 10/10/2015 10/10/2015 Inactive doxycycline hyclate 100 mg tablet RxNorm: 924509 1 Tablet(s) PO BID 10/10/2015 10/23/2015 Inactive Vitamins B Complex capsule RxNorm: 1 Capsule(s) PO daily 09/12/2015 No Stop Date Active Vitamin D3 1,000 unit tablet RxNorm: 722246 3-4 Tablet(s) PO daily 09/12/2015 No Stop Date Active Augmentin 500 mg-125 mg tablet RxNorm: 984156 1 Tablet(s) PO BID 07/09/2015 2015 Inactive probiotic one bid x 7 days Augmentin 500 mg-125 mg tablet RxNorm: 558022 1 Tablet(s) PO BID 07/09/2015 07/08/2015 Inactive Xanax 0.25 mg tablet RxNorm: 664590 1 Tablet(s) PO BID PRN as needed 07/01/2015 09/28/2015 Inactive [SAVINGS FOR UNINSURED PATIENTS -- BIN:735238, PCN: ASPROD1, Group: [facility], ID# [id number], Process claim through Catmoji, for questions: . THIS IS NOT INSURANCE.] sertraline 100 mg tablet RxNorm: 395627 TAKE 1 TABLET BY MOUTH TWICE DAILY 07/01/2015 01/27/2016 Inactive Generic For:*ZOLOFT 100MG TABLET N O T I C E Last quantity doesn't match original quantity amlodipine 5 mg tablet RxNorm: 492277 TAKE 1 TABLET BY MOUTH TWICE DAILY 06/26/2015 04/23/2016 Inactive Generic For:NORVASC 5 MG TABLET N O T I C E Last quantity doesn't match original quantity amlodipine 5 mg tablet RxNorm: 372884 Tablet(s) 1 Tablet(s) PO BID 06/25/2015 06/25/2015 Inactive ropinirole 1 mg tablet RxNorm: 268231 TAKE 1 TABLET BY MOUTH DAILY EVERY NIGHT 05/22/2015 01/27/2016 Inactive Generic For:REQUIP 1 MG TABLET ropinirole 1 mg tablet RxNorm: 896665 Tablet(s) 1 Tablet(s) PO QPM 05/22/2015 05/21/2015 Inactive pravastatin 10 mg tablet RxNorm: 017613 TAKE 1 TABLET BY MOUTH EVERY NIGHT 05/14/2015 11/06/2015 Inactive Generic For:PRAVACHOL 10 MG TABLET tramadol 50 mg tablet RxNorm: 320340 2 Tablet(s) PO BID 04/25/2015 01/18/2016 Inactive labetalol 100 mg tablet RxNorm: 660453 1 Tablet(s) PO BID 04/09/2015 04/23/2016 Inactive omeprazole 20 mg capsule,delayed release RxNorm: 809159 1 Tablet(s) PO daily 1 Capsule(s) PO daily 03/20/2015 12/10/2015 Inactive Carafate 1 gram tablet RxNorm: 994830 Tablet(s) PO UD 4 times daily x 1 week and then PRN 02/27/2015 02/21/2016 Inactive Xanax 0.25 mg tablet RxNorm: 763868 1 Tablet(s) PO BID PRN as needed 02/08/2015 06/06/2015 Inactive [SAVINGS FOR UNINSURED PATIENTS -- BIN:019309, PCN: ASPROD1, Group: [id number], ID# [id number], Process claim through Catmoji, for questions: . THIS IS NOT INSURANCE.] furosemide 20 mg tablet RxNorm: 440560 1 Tablet(s) PO daily as needed for swelling 10/25/2014 02/21/2015 Inactive ok to fill by Dr. Franklin 7-30-15 Xanax 0.25 mg tablet RxNorm: 421758 1 Tablet(s) PO BID PRN as needed 09/25/2014 01/21/2015 Inactive [SAVINGS FOR UNINSURED PATIENTS -- BIN:915981, PCN: ASPROD1, Group: AME08, ID# [id number], Process claim through Catmoji, for questions: . THIS IS NOT INSURANCE.] pravastatin 10 mg tablet RxNorm: 860786 TAKE 1 TABLET BY MOUTH EVERY NIGHT 09/06/2014 04/03/2015 Inactive Generic For:PRAVACHOL 10 MG TABLET tramadol 50 mg tablet RxNorm: 038121 TAKE 2 TABLETS BY MOUTH TWICE DAILY 08/02/2014 01/15/2016 Inactive Generic For:ULTRAM 50 MG TABLET N O T I C E Last quantity doesn't match original quantity(Response to an electronic controlled substance refill request [facility] [id number]) tramadol 50 mg tablet RxNorm: 528792 2 Tablet(s) PO BID 08/01/2014 08/02/2014 Inactive acyclovir 400 mg tablet RxNorm: 503241 2 Tablet(s) PO QID 07/16/2014 07/25/2014 Inactive sertraline 100 mg tablet RxNorm: 005352 1 Tablet(s) PO BID 1 Tablet(s) PO BID 06/13/2014 12/09/2014 Inactive sertraline 100 mg tablet RxNorm: 451834 1 Tablet(s) PO BID 06/13/2014 06/12/2014 Inactive magnesium oxide 400 mg tablet RxNorm: 768899 1 Tablet(s) PO daily 05/25/2014 2014 Inactive ropinirole 1 mg tablet RxNorm: 876147 1 Tablet(s) PO QPM 05/25/2014 05/19/2015 Inactive amlodipine 5 mg tablet RxNorm: 365204 1 Tablet(s) PO BID 05/25/2014 05/19/2015 Inactive prednisone 10 mg tablets in a dose pack RxNorm: 422647 1 Tablet(s) PO UD 04/06/2014 04/10/2014 Inactive 6-5-4-3-2-1 Xanax 0.25 mg tablet RxNorm: 226389 1 Tablet(s) PO BID PRN as needed 04/04/2014 07/02/2014 Inactive [SAVINGS FOR UNINSURED PATIENTS -- BIN:560693, PCN: ASPROD1, Group: AME08, ID# [id number], Process claim through Catmoji, for questions: . THIS IS NOT INSURANCE.] prednisone 20 mg tablet RxNorm: 023559 3 Tablet(s) PO daily 04/02/2014 04/05/2014 Inactive [SAVINGS FOR UNINSURED PATIENTS -- BIN:293000, PCN: ASPROD1, Group: AME08, ID# [id number], Process claim through Catmoji, for questions: . THIS IS NOT INSURANCE.] cefdinir 300 mg capsule RxNorm: 900449 1 Capsule(s) PO BID 04/02/2014 04/11/2014 Inactive [SAVINGS FOR UNINSURED PATIENTS -- BIN:088296, PCN: ASPROD1, Group: AME08, ID# [id number], Process claim through MedImpact, for questions: . THIS IS NOT INSURANCE.] Kenalog 40 mg/mL suspension for injection RxNorm: 5765980 Milliliter(s) Inj 04/02/2014 04/02/2014 Inactive [SAVINGS FOR UNINSURED PATIENTS -- BIN:688382, PCN: ASPROD1, Group: AME08, ID# [id number], Process claim through MedImpact, for questions: . THIS IS NOT INSURANCE.] ceftriaxone 500 mg solution for injection RxNorm: 360601 Inj 04/02/2014 04/02/2014 Inactive [SAVINGS FOR UNINSURED PATIENTS -- BIN:005111, PCN: ASPROD1, Group: AME08, ID# [id number], Process claim through MedImpact, for questions: . THIS IS NOT INSURANCE.] albuterol sulfate 2.5 mg/0.5 mL solution for nebulization RxNorm: 025477 1 treatment INH QID and as needed for dyspnea 04/02/2014 05/31/2014 Inactive [SAVINGS FOR UNINSURED PATIENTS -- BIN:648999, PCN: ASPROD1, Group: AME08, ID# [id number], Process claim through MedImpact, for questions: . THIS IS NOT INSURANCE.] azithromycin 500 mg tablet RxNorm: 366128 1 Tablet(s) PO daily 04/02/2014 04/06/2014 Inactive [SAVINGS FOR UNINSURED PATIENTS -- BIN:347823, PCN: ASPROD1, Group: AME08, ID# [id number], Process claim through MedImpact, for questions: . THIS IS NOT INSURANCE.] omeprazole 20 mg capsule,delayed release RxNorm: 505000 1 Tablet(s) PO daily 1 Capsule(s) PO daily 02/26/2014 06/25/2014 Inactive Xanax 0.25 mg tablet RxNorm: 888642 1 Tablet(s) PO BID PRN as needed 02/01/2014 04/03/2014 Inactive [SAVINGS FOR UNINSURED PATIENTS -- BIN:522544, PCN: ASPROD1, Group: AME08, ID# [id number], Process claim through MedImpact, for questions: . THIS IS NOT INSURANCE.] Xanax 0.25 mg tablet RxNorm: 607655 1 Tablet(s) PO HS PRN as needed 01/04/2014 01/31/2014 Inactive [SAVINGS FOR UNINSURED PATIENTS -- BIN:513393, PCN: ASPROD1, Group: AME08, ID# [id number], Process claim through MedImpact, for questions: . THIS IS NOT INSURANCE.] pravastatin 10 mg tablet RxNorm: 165753 1 Tablet(s) PO QHS 12/21/2013 12/20/2013 Inactive pravastatin 10 mg tablet RxNorm: 578163 1 Tablet(s) PO QHS 12/21/2013 07/18/2014 Inactive [SAVINGS FOR UNINSURED PATIENTS -- BIN:261542, PCN: ASPROD1, Group: AME08, ID# [id number], Process claim through MedImpact, for questions: . THIS IS NOT INSURANCE.] Hytrin 1 mg tablet RxNorm: 472551 1 Tablet(s) PO BID 12/21/2013 04/08/2015 Inactive [SAVINGS FOR UNINSURED PATIENTS -- BIN:343257, PCN: ASPROD1, Group: AME08, ID# [id number], Process claim through MedImpact, for questions: . THIS IS NOT INSURANCE.] Hytrin 1 mg tablet RxNorm: 237116 1 Tablet(s) PO daily 12/18/2013 12/20/2013 Inactive [SAVINGS FOR UNINSURED PATIENTS -- BIN:538196, PCN: ASPROD1, Group: AME08, ID# [id number], Process claim through MedImpact, for questions: . THIS IS NOT INSURANCE.] sertraline 100 mg tablet RxNorm: 990375 1 Tablet(s) PO QHS 12/14/2013 12/08/2014 Inactive [SAVINGS FOR UNINSURED PATIENTS -- BIN:872296, PCN: ASPROD1, Group: AME08, ID# [id number], Process claim through Catmoji, for questions: . THIS IS NOT INSURANCE.] Xanax 0.25 mg tablet RxNorm: 259239 1 Tablet(s) PO HS PRN as needed 12/13/2013 01/03/2014 Inactive [SAVINGS FOR UNINSURED PATIENTS -- BIN:616072, PCN: ASPROD1, Group: AME08, ID# [id number], Process claim through MedIDigitalAdvisoract, for questions: . THIS IS NOT INSURANCE.] tramadol 50 mg tablet RxNorm: 460754 2 Tablet(s) PO BID 11/08/2013 04/24/2015 Inactive Xanax 0.25 mg tablet RxNorm: 196116 1 Tablet(s) PO HS PRN as needed 10/19/2013 10/18/2013 Inactive Xanax 0.25 mg tablet RxNorm: 525047 1 Tablet(s) PO HS PRN as needed 10/19/2013 12/12/2013 Inactive Carafate 1 gram tablet RxNorm: 532841 Tablet(s) PO dissolve 1 tab QID x 1 week, then TID x 1 week, then BID x 1 week 09/07/2013 02/26/2015 Inactive omeprazole 20 mg capsule,delayed release RxNorm: 047412 1 Capsule(s) PO daily 09/07/2013 09/06/2013 Inactive omeprazole 20 mg capsule,delayed release RxNorm: 838589 1 Capsule(s) PO daily 09/07/2013 02/26/2014 Inactive prednisone 10 mg tablet RxNorm: 444118 1 Tablet(s) PO 08/25/2013 12/13/2013 Inactive prednisone taper Zithromax Z-Bon 250 mg tablet RxNorm: 488008 Tablet(s) PO as directed 08/25/2013 12/13/2013 Inactive Zithromax Z-Bon 250 mg tablet RxNorm: 336961 Tablet(s) PO as directed 08/04/2013 08/24/2013 Inactive Xanax 0.25 mg tablet RxNorm: 110987 1 Tablet(s) PO HS PRN 08/01/2013 10/18/2013 Inactive Kenalog 40 mg/mL suspension for injection RxNorm: 5377398 Milliliter(s) Inj 08/01/2013 08/01/2013 Inactive tramadol 50 mg tablet RxNorm: 438692 2 Tablet(s) PO BID 05/02/2013 11/07/2013 Inactive carvedilol 25 mg tablet RxNorm: 275376 1 Tablet(s) PO BID 05/02/2013 12/13/2013 Inactive magnesium oxide 400 mg tablet RxNorm: 494054 1 Tablet(s) PO daily 05/02/2013 04/26/2014 Inactive furosemide 20 mg tablet RxNorm: 303445 2 Tablet(s) PO daily 05/02/2013 2014 Inactive amlodipine 5 mg tablet RxNorm: 522567 1 Tablet(s) PO BID 05/02/2013 04/26/2014 Inactive sertraline 100 mg tablet RxNorm: 572056 1 Tablet(s) PO BID 05/02/2013 12/13/2013 Inactive ropinirole 1 mg tablet RxNorm: 509734 1 Tablet(s) PO QPM 05/02/2013 04/26/2014 Inactive pantoprazole 40 mg tablet,delayed release RxNorm: 331933 1 Tablet(s) PO daily 05/02/2013 2014 Inactive gabapentin 600 mg tablet RxNorm: 280621 1 Tablet(s) PO BID 05/02/2013 2014 Inactive aspirin 81 mg tablet,delayed release RxNorm: 142603 1 Tablet(s) PO daily No Start Date Active ferrous fumarate 325 mg (106 mg iron) tablet RxNorm: 915313 1 Tablet(s) PO daily No Start Date 2014 Inactive amlodipine 5 mg tablet RxNorm: 726174 1 Tablet(s) PO BID No Start Date 05/01/2013 Inactive Vitamin B-12 2,500 mcg sublingual tablet RxNorm: 068379 1 Tablet(s) SL daily No Start Date 2014 Inactive Zithromax Z-Bon 250 mg tablet RxNorm: 723835 Tablet(s) PO as directed No Start Date 08/03/2013 Inactive sertraline 100 mg tablet RxNorm: 539017 1 Tablet(s) PO BID No Start Date 05/01/2013 Inactive Hytrin 1 mg tablet RxNorm: 521003 1 Tablet(s) PO BID No Start Date 12/17/2013 Inactive potassium chloride ER 10 mEq capsule,extended release RxNorm: 226697 1 Capsule(s) PO QDAY PRN No Start Date 06/17/2016 Inactive Xanax 0.25 mg tablet RxNorm: 438692 1 Tablet(s) PO HS PRN No Start Date 07/31/2013 Inactive gabapentin 600 mg tablet RxNorm: 528796 1 Tablet(s) PO BID No Start Date 05/01/2013 Inactive ropinirole 1 mg tablet RxNorm: 453730 1 Tablet(s) PO QPM No Start Date 05/01/2013 Inactive Vitamin D3 1,000 unit tablet RxNorm: 415658 2 Tablet(s) PO daily No Start Date 09/11/2015 Inactive furosemide 20 mg tablet RxNorm: 552396 1 Tablet(s) PO BID No Start Date 05/01/2013 Inactive tramadol 50 mg tablet RxNorm: 278072 2 Tablet(s) PO BID No Start Date 05/01/2013 Inactive Carafate 1 gram tablet RxNorm: 852220 Tablet(s) PO dissolve 1 tab QID x 1 week, then TID x 1 week, then BID x 1 week No Start Date 09/06/2013 Inactive pantoprazole 40 mg tablet,delayed release RxNorm: 570267 1 Tablet(s) PO daily No Start Date 05/01/2013 Inactive montelukast 10 mg tablet RxNorm: 898953 1 Tablet(s) PO QHS No Start Date 04/23/2016 Inactive magnesium oxide 400 mg tablet RxNorm: 182421 1 Tablet(s) PO daily No Start Date 05/01/2013 Inactive prednisone 10 mg tablet RxNorm: 305416 1 Tablet(s) PO No Start Date 08/24/2013 Inactive prednisone taper carvedilol 25 mg tablet RxNorm: 557854 1 Tablet(s) PO BID No Start Date 05/01/2013 Inactive baclofen 10 mg tablet RxNorm: 125993 2 Tablet(s) PO daily No Start Date 12/13/2013 Inactive Vitamin B Complex capsule RxNorm: 1 Capsule(s) PO daily No Start Date 2014 Inactive Medication Administered Medication Codes Instructions Start Date Status Kenalog 40 mg/mL suspension for injection RxNorm: 1063843 Milliliter 09/15/2016 No longer Active Kenalog 40 mg/mL suspension for injection RxNorm: 4578535 Milliliter 04/02/2014 No longer Active ceftriaxone 500 mg solution for injection RxNorm: 931786 04/02/2014 No longer Active Kenalog 40 mg/mL suspension for injection RxNorm: 4623103 Milliliter 08/01/2013 No longer Active Immunizations Vaccine [...] Code Item Item Code Result Date Mayda 128770 MAYDA (MORTEZA) SCREEN NONE DETECTED 06/25/2017 Ra Factor Nik585 RA FACTOR <10 IU/ml 06/24/2017 D-Dimer D-DIMER [...] 38.4 % 06/01/2017 Cbc With Differential Ord2 Trinity% 5.8 % 06/01/2017 Cbc With Differential Ord2 [...] 2.17 K/ul 06/01/2017 Cbc With Differential Ord2 Trinity ABS# 0.3 K/ul 06/01/2017 Cbc With Differential Ord2 Eos ABS# 0.1 K/ul 06/01/2017 Cbc With Differential Ord2 Baso ABS# 0.1 K/ul 06/01/2017 Comp Metabolic Jyr111 NA 137 mEq/L 06/01/2017 Comp Metabolic Qvb723 K 3.7 mEq/L 06/01/2017 Comp Metabolic Oun298 CL 100 mEq/L 06/01/2017 Comp Metabolic Fnw290 CO2 28.0 mEq/L 06/01/2017 Comp Metabolic Plh722 ANION GAP 13 06/01/2017 Comp Metabolic Qqs293 GLUCOSE 94 mg/dL 06/01/2017 Comp Metabolic Ror019 Creat 1.3 mg/dL 06/01/2017 Comp Metabolic Yjh772 eGFR 45 ml/min/1.73m2 06/01/2017 Comp Metabolic Ris233 BUN 12 mg/dL 06/01/2017 Comp Metabolic Rpj904 B/C Ratio 9.6 Ratio 06/01/2017 Comp Metabolic Vfn746 CALCIUM 9.5 mg/dL 06/01/2017 Comp Metabolic Nig133 ALK PHOS 77 U/L 06/01/2017 Comp Metabolic Ksw608 AST(SGOT) 17 U/L 06/01/2017 Comp Metabolic Kns163 ALT(SGPT) 15 U/L 06/01/2017 Comp Metabolic Cjt596 BILI T 0.5 mg/dL 06/01/2017 Comp Metabolic Vth944 ALBUMIN 4.4 g/dL 06/01/2017 Comp Metabolic Wdy674 TPRO 7.0 g/dL 06/01/2017 Comp Metabolic Efg985 GLOB 2.6 g/dL 06/01/2017 Comp Metabolic Fkq025 A/G Ratio 1.7 Ratio 06/01/2017 Comp Metabolic Qww728 Osmo 273 mOsmo 06/01/2017 Mayda 096700 MAYDA (MORTEZA) SCREEN NONE DETECTED 06/22/2016 C-Reactive Protein Qnt Crqnt CRP 0.3 mg/dl 06/19/2016 Sed Rate Ord21 ESR 11 mm/hr 06/19/2016 Ra Factor Htw273 RA FACTOR <10 IU/ml 06/19/2016 Sed Rate Ord21 ESR 14 mm/hr 02/25/2016 C-Reactive Protein Qnt Crqnt CRP 0.3 mg/dl 02/25/2016 Comp Metabolic Amg931 NA 136 mEq/L 02/25/2016 Comp Metabolic Uuf804 K 3.9 mEq/L 02/25/2016 Comp Metabolic Thg267 CL 103 mEq/L 02/25/2016 Comp Metabolic Hlf211 CO2 27.0 mEq/L 02/25/2016 Comp Metabolic Tdj274 ANION GAP 10 02/25/2016 Comp Metabolic Rob781 GLUCOSE 82 mg/dL 02/25/2016 Comp Metabolic Dev909 Creat 1.3 mg/dL 02/25/2016 Comp Metabolic Sxg407 eGFR 45 ml/min/1.73m2 02/25/2016 Comp Metabolic Oco470 BUN 13 mg/dL 02/25/2016 Comp Metabolic Khx841 B/C Ratio 10.3 Ratio 02/25/2016 Comp Metabolic Quo202 CALCIUM 9.5 mg/dL 02/25/2016 Comp Metabolic Xfd206 ALK PHOS 70 U/L 02/25/2016 Comp Metabolic Lxf946 AST(SGOT) 17 U/L 02/25/2016 Comp Metabolic Dtg073 ALT(SGPT) 13 U/L 02/25/2016 Comp Metabolic Jxu516 BILI T 0.4 mg/dL 02/25/2016 Comp Metabolic Mvu063 ALBUMIN 4.2 g/dL 02/25/2016 Comp Metabolic Kol376 TPRO 6.6 g/dL 02/25/2016 Comp Metabolic Lda607 GLOB 2.4 g/dL 02/25/2016 Comp Metabolic Gjf955 A/G Ratio 1.7 Ratio 02/25/2016 Comp Metabolic Sok482 Osmo 271 mOsmo 02/25/2016 Cbc With Differential [...] 29.1 pg 02/25/2016 Cbc With Differential Ord2 Trinity% 6.8 % 02/25/2016 Cbc With Differential Ord2 [...] 1.62 K/ul 02/25/2016 Cbc With Differential Ord2 Trinity ABS# 0.4 K/ul 02/25/2016 Cbc With Differential Ord2 Eos ABS# 0.1 K/ul 02/25/2016 Cbc With Differential Ord2 Baso ABS# 0.0 K/ul 02/25/2016 Tsh Ord6 hTSH II 1.63 uIU/mL 02/25/2016 [place] Spotted Fever Igg/Igm 596199 BENIGNO MT SPOTTED FEVER IGM EIA . 09/17/2015 [place] Spotted Fever Igg/Igm 875820 RMSF, IGM 0.27 index 09/17/2015 [place] Spotted Fever Igg/Igm 117453 BENIGNO MT SPOTTED FEVER IGG EIA FLEX . 09/17/2015 [place] Spotted Fever Igg/Igm 339900 RMSF, IGG SCREEN-FLEX Negative 09/17/2015 Ehrlichia Chaffeensis Antibody Igm 609645 EHRLICHIA CHAFFEENSIS IGM < 1:16 09/16/2015 Ehrlichia Chaffeensis Antibody Igg 106525 EHRLICHIA CHAFFEENSIS IGG 1:256 09/16/2015 Lymes Disease Total Antibodies With Western Blot Reflex [id number] B. BURGDORFERI, IGG/IGM 0.10 LI 09/14/2015 Lymes Disease Total Antibodies With Western Blot Reflex [id number] 09/14/2015 Vitamin D 25 Oh Rch9483 VITAMIN D, 25 HYDROXY 59.60 ng/mL 09/13/2015 Sed Rate Ord21 ESR 10 mm/hr 09/12/2015 Comp Metabolic Uhm109 NA 139 mEq/L 09/12/2015 Comp Metabolic Zsl092 K 3.8 mEq/L 09/12/2015 Comp Metabolic Iij534 CL 103 mEq/L 09/12/2015 Comp Metabolic Dxy208 CO2 27.0 mEq/L 09/12/2015 Comp Metabolic Dzl162 ANION GAP 13 09/12/2015 Comp Metabolic Ltx458 GLUCOSE 91 mg/dL 09/12/2015 Comp Metabolic Wcy070 Creat 1.2 mg/dL 09/12/2015 Comp Metabolic Thw144 eGFR 47 ml/min/1.73m2 09/12/2015 Comp Metabolic Gmu397 BUN 20 mg/dL 09/12/2015 Comp Metabolic Ong051 B/C Ratio 16.3 Ratio 09/12/2015 Comp Metabolic Jmy935 CALCIUM 9.3 mg/dL 09/12/2015 Comp Metabolic Cfk580 ALK PHOS 55 U/L 09/12/2015 Comp Metabolic Lkc518 AST(SGOT) 19 U/L 09/12/2015 Comp Metabolic Fwe549 ALT(SGPT) 14 U/L 09/12/2015 Comp Metabolic Hap528 BILI T 0.6 mg/dL 09/12/2015 Comp Metabolic Hrx383 ALBUMIN 4.3 g/dL 09/12/2015 Comp Metabolic Aqt412 TPRO 6.8 g/dL 09/12/2015 Comp Metabolic Tnl814 GLOB 2.5 g/dL 09/12/2015 Comp Metabolic Fng108 A/G Ratio 1.8 Ratio 09/12/2015 Comp Metabolic Ikx554 Osmo 280 mOsmo 09/12/2015 B12 Fxl117 B12 >1500.00 pg/ml 09/12/2015 Cbc With Differential [...] 28.9 pg 09/12/2015 Cbc With Differential Ord2 Trinity% 5.9 % 09/12/2015 Cbc With Differential Ord2 [...] 1.33 K/ul 09/12/2015 Cbc With Differential Ord2 Trinity ABS# 0.3 K/ul 09/12/2015 Cbc With Differential [...] Full Exam - General 1994 Neurologic coordination Xoyoiq-azru-ddbwwr testing - left: dysmetria 05/11/2017 None Full Exam - General 1994 Neurologic coordination Uwqzak-jipw-auuowi testing - right: dysmetria 05/11/2017 None Full [...] Full Exam - General 1994 Neurologic coordination Dmizft-zhgs-dskweg testing - left: dysmetria 04/20/2016 None Full Exam - General 1994 Neurologic coordination Wnoedf-pjcv-nbhchi testing - right: dysmetria 04/20/2016 None Full [...] Full Exam - General 1994 Neurologic coordination Rwellb-rbav-icmxoq testing - left: dysmetria 02/25/2016 None Full Exam - General 1994 Neurologic coordination Masjrf-bwqi-rldfhl testing - right: dysmetria 02/25/2016 None Full [...] Full Exam - General 1994 Neurologic coordination Oxzggu-duxj-fokfnt testing - left: dysmetria 01/28/2016 None Full Exam - General 1994 Neurologic coordination Gmrmep-darm-bhotwi testing - right: dysmetria 01/28/2016 None Full [...] palp - head/face Lesion: excoriation 07/16/2014 right voodoo, redness right eyelid Full Exam - Dermatology [...] Procedure Codes Date THER/PROPH/DIAG INJ SC/IM CPT-4: 09860 09/15/2016 TRIAMCINOLONE ACET INJ NOS CPT-4: J3301 09/15/2016 ADMIN INFLUENZA VIRUS VAC CPT-4: G0008 01/08/2016 ADMIN PNEUMOCOCCAL VACCINE SNOMED CT: 35465726 CPT-4: G0009 01/08/2016 PNEUMOCOCCAL VACC 13 RIVERA IM Formatting Model/CDA Sections, Assigned to/Aliya Muñoz SNOMED CT: 46071500 CPT-4: 97530Pyhmnac 01/08/2016 FLU VACC 4 RIVERA 3 YRS PLUS IM SNOMED CT: 59875679 CPT-4: 43727 01/08/2016 THER/PROPH/DIAG INJ SC/IM CPT-4: 12174 04/02/2014 TRIAMCINOLONE ACET INJ NOS CPT-4: J3301 04/02/2014 ROCEPHIN, PER 250 MG CPT- 4: J0696 04/02/2014 TRIAMCINOLONE ACET INJ NOS CPT-4: J3301 08/01/2013 THER/PROPH/DIAG INJ SC/IM CPT-4: 28655 08/01/2013 Vital Signs Date Vital 01/25/2018 Blood Pressure 1: 130/68 Code: 8480-6 BMI: 34.4 Code: 06113-3 Heart Rate 1: 91 bpm Height: 5'5" SpO2: 95% Weight: 207 lbs 10/06/2017 Blood Pressure 1: 118/78 Code: 8480-6 BMI: 34.3 Code: 80010-1 Heart Rate 1: 75 bpm Height: 5'5" SpO2: 98% Weight: 206 lbs 09/27/2017 Blood Pressure 1: 136/88 Code: 8480-6 BMI: 35.4 Code: 41539-2 Heart Rate 1: 86 bpm Height: 5'5" SpO2: 98% Weight: 213 lbs 07/23/2017 Blood Pressure 1: 106/58 Code: 8480-6 BMI: 34.8 Code: 89973-5 Heart Rate 1: 70 bpm Height: 5'5" SpO2: 96% Weight: 209 lbs 06/01/2017 Blood Pressure 1: 150/96 Code: 8480-6 BMI: 34.4 Code: 06335-7 Heart Rate 1: 82 bpm Height: 5'5" SpO2: 99% Weight: 207 lbs 05/11/2017 Blood Pressure 1: 144/90 Code: 8480-6 BMI: 34.6 Code: 88780-8 Heart Rate 1: 76 bpm Height: 5'5" SpO2: 98% Weight: 208 lbs 10/30/2016 Blood Pressure 1: 172/104 Code: 8480-6 Blood Pressure 1: 158/98 Code: 8480-6 BMI: 34.7 Code: 79208-0 Heart Rate 1: 70 bpm Height: 5'5" SpO2: 97% Temperature: 36.2 (C) / 97.1 (F) Weight: 208 lbs 10 oz 04/20/2016 Blood Pressure 1: 144/86 Code: 8480-6 BMI: 34.3 Code: 11428-4 Heart Rate 1: 68 bpm Height: 5'5" SpO2: 97% Weight: 206 lbs 02/25/2016 Blood Pressure 1: 122/82 Code: 8480-6 BMI: 34.4 Code: 75894-1 Heart Rate 1: 86 bpm Height: 5'5" SpO2: 94% Weight: 207 lbs 01/28/2016 Blood Pressure 1: 128/86 Code: 8480-6 BMI: 33.3 Code: 67669-6 Heart Rate 1: 86 bpm Height: 5'5" SpO2: 96% Weight: 200 lbs 11/14/2015 Blood Pressure 1: 138/88 Code: 8480-6 Blood Pressure 1: 140/90 Code: 8480-6 BMI: 33.3 Code: 42861-6 Heart Rate 1: 98 bpm Height: 5'5" SpO2: 97% Weight: 200 lbs 10/10/2015 Blood Pressure 1: 132/80 Code: 8480-6 BMI: 33.3 Code: 73919-0 Heart Rate 1: 74 bpm Height: 5'5" SpO2: 96% Weight: 200 lbs 09/12/2015 Blood Pressure 1: 148/90 Code: 8480-6 BMI: 32.9 Code: 34194-3 Heart Rate 1: 94 bpm Height: 5'5" SpO2: 97% Weight: 198 lbs 04/09/2015 Blood Pressure 1: 130/84 Code: 8480-6 Blood Pressure 1: 160/82 Code: 8480-6 BMI: 32.4 Code: 30955-7 Heart Rate 1: 74 bpm Height: 5'5" SpO2: 95% Weight: 195 lbs 10/05/2014 Blood Pressure 1: 140/80 Code: 8480-6 BMI: 30.5 Code: 91263-9 Heart Rate 1: 79 bpm Height: 5'5" SpO2: 98% Weight: 183 lbs 09/07/2014 Blood Pressure 1: 142/96 Code: 8480-6 BMI: 32.1 Code: 71395-4 Heart Rate 1: 72 bpm Height: 5'5" SpO2: 98% Temperature: 36.5 (C) / 97.7 (F) Weight: 193 lbs 07/16/2014 Blood Pressure 1: 138/82 Code: 8480-6 BMI: 31.8 Code: 87060-0 Heart Rate 1: 76 bpm Height: 5'5" Weight: 191 lbs 04/02/2014 Blood Pressure 1: 148/90 Code: 8480-6 BMI: 33.8 Code: 93963-4 Heart Rate 1: 68 bpm Height: 5'5" Temperature: 36.9 (C) / 98.4 (F) Weight: 203 lbs 12/14/2013 Blood Pressure 1: 140/88 Code: 8480-6 BMI: 35.3 Code: 77774-8 Heart Rate 1: 91 bpm Height: 5'5" SpO2: 97% Weight: 212 lbs 08/01/2013 Blood Pressure 1: 126/68 Code: 8480-6 BMI: 35.1 Code: 65464-5 Heart Rate 1: 76 bpm Height: 5'5" Temperature: 36.7 (C) / 98.1 (F) Weight: 211 lbs 05/02/2013 Blood Pressure 1: 118/86 Code: 8480-6 BMI: 34.9 Code: 06848-6 Heart Rate 1: 76 bpm Height: 5'5" Weight: 209 lbs 8 oz 04/18/2013 Blood Pressure 1: 118/60 Code: 8480-6 BMI: 35.3 Code: 91798-4 Heart Rate 1: 68 bpm Height: 5'5" [...] data Encounters Encounter Performer Location Codes Date ([id number]) 20630 EST. PATIENT, LEVEL III Diagnosis: Essential (primary) hypertension[ICD10: I10] Marilyn Lao MD, [facility] CPT-4: 57855 01/25/2018 [id number]) 55309 EST. PATIENT, LEVEL III Diagnosis: Nail dystrophy[ICD10: L60.3] Diagnosis: Localized edema[ICD10: R60.0] Marilyn Lao MD, [facility] CPT-4: 24176 10/06/2017 [id number]) 93486 EST. PATIENT, LEVEL IV Diagnosis: Essential (primary) hypertension[ICD10: I10] Diagnosis: Localized edema[ICD10: R60.0] [facility] CPT-4: 97991 09/27/2017 [id number]) 07053 EST. PATIENT, LEVEL IV Diagnosis: Generalized anxiety disorder[ICD10: F41.1] Diagnosis: Essential (primary) hypertension[ICD10: I10] Diagnosis: Chronic pain syndrome[ICD10: G89.4] [facility] CPT-4: 80523 07/23/2017 ([id number]) 01277 EST. PATIENT, LEVEL IV Diagnosis: Essential (primary) hypertension[ICD10: I10] Diagnosis: Chest pain, unspecified[ICD10: R07.9] Diagnosis: Chronic kidney disease, stage 3 (moderate)[ICD10: N18.3] Noa Lao MD, [facility] CPT-4: 36789 06/01/2017 91654 EST. PATIENT, LEVEL IV Diagnosis: Gastro-esophageal reflux disease without esophagitis[ICD10: K21.9] Anais Lao MD, [facility] CPT-4: 94706 05/11/2017 ([id number]) 18474 EST. PATIENT, LEVEL III Diagnosis: Essential (primary) hypertension[ICD10: I10] Diagnosis: Contusion of right lower leg, initial encounter[ICD10: S80.11XA] Noa Lao MD, [facility] CPT-4: 56952 10/30/2016 ([id number]) 96240 EST. PATIENT, LEVEL IV Diagnosis: Essential (primary) hypertension[ICD10: I10] Diagnosis: Generalized anxiety disorder[ICD10: F41.1] Marilyn Lao MD, [facility] CPT-4: 13685 04/20/2016 ([id number]) 32009 EST. PATIENT, LEVEL IV Diagnosis: Essential (primary) hypertension[ICD10: I10] Diagnosis: Chronic kidney disease, stage 3 (moderate)[ICD10: N18.3] Diagnosis: Generalized anxiety disorder[ICD10: F41.1] Diagnosis: Major depressive disorder, recurrent, moderate[ICD10: F33.1] Diagnosis: Shortness of breath[ICD10: R06.02] Noa Lao MD, [facility] CPT- 4: 24103 02/25/2016 ([id number]) 15646 EST. PATIENT, LEVEL IV Diagnosis: Generalized anxiety disorder[ICD10: F41.1] Diagnosis: Major depressive disorder, recurrent, moderate[ICD10: F33.1] Diagnosis: Essential (primary) hypertension[ICD10: I10] Diagnosis: Restless legs syndrome[ICD10: G25.81] Diagnosis: Myalgia[ICD10: M79.1] Noa Lao MD, [facility] CPT-4: 85766 01/28/2016 ([id number]) 74899 EST. PATIENT, LEVEL III Diagnosis: Essential (primary) hypertension[ICD10: I10] Diagnosis: Insomnia, unspecified[ICD10: G47.00] Noa Lao MD, [facility] CPT-4: 78275 11/14/2015 ([id number]) 47184 EST. 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 PATIENT, LEVEL IV Diagnosis: Bitten or stung by nonvenomous insect and other nonvenomous arthropods, initial encounter[ICD10: W57.XXXA] Diagnosis: Other fatigue[ICD10: R53.83] Diagnosis: Vitamin D deficiency, unspecified[ICD10: E55.9] Diagnosis: Other vitamin B12 deficiency anemias[ICD10: D51.8] Diagnosis: Essential (primary) hypertension[ICD10: I10] Diagnosis: Iron deficiency[ICD10: E61.1] Noa Lao MD, [facility] CPT-4: 65733 09/12/2015 ([id number]) 26233 EST. PATIENT, LEVEL III Diagnosis: Essential (primary) hypertension[ICD10: I10] Diagnosis: Chronic kidney disease, stage 3 (moderate)[ICD10: N18.3] Noa Lao MD, [facility] CPT-4: 07497 04/09/2015 ([id number]) 78227 EST. PATIENT, LEVEL III Diagnosis: ESSENTIAL HYPERTENSION[ICD9: 401.9] Noa Lao MD, [facility] CPT-4: 73126 10/05/2014 ([id number]) 03947 EST. PATIENT, LEVEL IV Diagnosis: Easy bruising[ICD9: 782.9] Diagnosis: Iron deficiency anemia[ICD9: 280.9] Diagnosis: ESSENTIAL HYPERTENSION[ICD9: 401.9] Diagnosis: Chronic kidney disease, stage 3[ICD9: 585.3] Noa Lao MD, [facility] CPT-4: 61063 09/07/2014 ([id number]) 67457 EST. PATIENT, LEVEL III Diagnosis: Shingles[ICD9: 053.9] Marilyn Lao MD [facility] CPT-4: 08627 07/16/2014 ([id number]) 37387 EST. PATIENT, LEVEL III Diagnosis: PNEUMONIA (CAP)[ICD9: 486] Diagnosis: COUGH[ICD9: 786.2] Marilyn Lao MD, [facility] CPT-4: 02109 04/02/2014 ([id number]) 39544 EST. PATIENT, LEVEL III Diagnosis: ESSENTIAL HYPERTENSION[ICD9: 401.9] Diagnosis: Rib pain on left side[ICD9: 786.50] Diagnosis: EDEMA[ICD9: 782.3] Noa Lao MD, [facility] CPT-4: 97682 12/14/2013 ([id number]) 96471 EST. PATIENT, LEVEL IV Diagnosis: ESOPHAGEAL REFLUX[ICD9: 530.81] Diagnosis: Urge incontinence[ICD9: 788.31] Diagnosis: Elbow pain, right[ICD9: 719.42] Diagnosis: Snoring[ICD9: 786.09] Marilyn Lao MD, [facility] CPT-4: 44104 08/01/2013 ([id number]) 10441 EST. PATIENT, LEVEL IV Diagnosis: ESSENTIAL HYPERTENSION[SNOMED: 79199305] Diagnosis: EDEMA[ICD9: 782.3] Diagnosis: Chronic renal insufficiency, stage III (moderate)[ICD9: 585.3] Diagnosis: HYPERLIPIDEMIA[ICD9: 272.4] Marilyn Lao MD, [facility] CPT-4: 43421 05/02/2013 ([id number]) 26218 EST. PATIENT, LEVEL IV Diagnosis: ESSENTIAL HYPERTENSION[SNOMED: 81565927] Diagnosis: Restless leg[ICD9: 333.94] Marilyn Lao MD, [facility] CPT-4: 45403 04/18/2013 Plan of Care Planned Activity Notes Codes Status Date Visit Plan: Hypertension - well controlled - continue with current medications, continue with no added salt diet. Pt has been encouraged to exercise daily. The pt has been advised to call the office if there are any acute concerns about change in blood pressure readings at home. 01/25/2018 Appointment: Marilyn Lao WPtel: [phone] [facility] (15 min) Moderate 01/25/2018 Patient Education: Patient Medication Summary Completed 01/25/2018 Appointment: Marilyn Lao WPtel: [phone] [facility] (15 min) Moderate 01/06/2018 Patient Education: Patient Medication Summary Completed 10/26/2017 Care Plan: Comp Metabolic Cancelled 10/26/2017 Visit Plan: Tinea/Onychodystrophy - penlac prescribed, pt did not want to take medication by mouth for treatment. Edema - improved - continue current regimen. 10/06/2017 [facility]ment[phone] ([facility] min) Moderate 10/06/2017 Patient Education: [...] home. 09/27/2017 Appointment[phone] [place] (15 min) Moderate 09/27/2017 Patient [...] massage 07/23/2017 Appointment: Noa Orlando WPtel: [phone] [phone] (15 min) Moderate 07/23/2017 Patient Education: Patient [...] worsens 06/01/2017 [facility]ment[phone] (30 min) Complex 06/01/2017 Patient Education: Patient Medication Summary Completed 06/01/2017 Care Plan: Referral Order SNOMED-CT : 102244425 Pending 06/01/2017 Visit Plan: Esophageal Reflux - the patient has been counseled against excessive intake of caffeine, spicy foods, peppermint, and cinnamon - all of which can exacerbate esophageal reflux. The patient is to take med ications as prescribed and call the office if the symptoms are not improving. 05/11/2017 Appointment: [facility]ais Arrieta [phone] (15 min) Moderate 05/11/2017 Patient Education: Patient [...] Completed 09/15/2016 Appointment: Marilyn Lao WPtel: [phone] [facility] (15 min) Moderate 08/19/2016 Patient Education: Patient [...] Appointment: Marilyn Lao WPtel: [facility]5 [facility] (30 min) Complex 04/20/2016 Patient Education: Patient Medication Summary Completed 04/20/2016 Patient Education: Obesity Completed 04/20/2016 Patient Education: Hypertension Completed 04/20/2016 Appointment: Noa Orlando WPtel: [phone] [place] (30 min) Complex 03/16/2016 Referral: Ta [...] for follow up. Chronic renal disease-check labs Nsitvry-kthjkzeieq-sirmvvgs with cymbalta-continue same dose for now -may take xanax TID PRN Multiple joint pain-check labs including inflammatory markers 02/25/2016 Appointment: Noa Orlando WPtel: [phone] [phone] (30 min) Complex 02/25/2016 Patient Education: Patient Medication Summary Completed 02/25/2016 Patient Education: Obesity Completed 02/25/2016 Patient Education: Hypertension Completed 02/25/2016 Care Plan: Referral Order SNOMED-CT : 260849144 Pending 02/25/2016 Visit Plan: Anxiety/Depression - the [...] in blood pressure readings at home. Restless ssb-vjffhq-qzxcdssi requip to twice daily-monitor symptoms Myalgias-stop pravastatin 01/28/2016 Appointment: Noa Orlando WPtel: [phone] [phone] (30 min) Complex 01/28/2016 Patient Education: Patient [...] Completed 10/10/2015 Appointment: [phone] (15 min) Moderate 10/08/2015 Visit Plan: Hypertension - well controlled - continue with current medications, continue with no added salt diet. Pt has been encouraged to exercise daily. The pt has been advised to call the office if there are any acute concerns about change in blood pressure readings at home. Iron deficiency- B12 deficiency-check labs Tick lctr-ibxouxm-ecnss tick panel 09/12/2015 Appointment: [phone] [place] (15 min) Moderate 09/12/2015 Patient Education: [...] symptoms Iron deficiency anemia-stopped oral iron per ceramics instructor in March-recheck labs HTN-elevated today-monitor twice daily [...] Care Plan: COMPLETE CBC AUTOMATED LOINC : 11880-7 Ordered 09/07/2014 Visit Plan: Shingles - Herpes [...] Appointment: Marilyn Lao WPtel: [facility]5 [facility] Follow up 04/16/2014 Appointment: Sick 04/03/2014 Visit Plan: Pneumonia - Pt has been diagnosed with pneumonia by physical exam. Antibiotics started. The pt is aware of the diagnosis and the need for acute treatment of this illness. 04/02/2014 Patient Education: Patient Medication Summary Completed 04/02/2014 Appointment: Marilyn Lao WPtel: [facility]5 [facility] Sick 12/27/2013 Patient Education: Patient Medication Summary [...] further attempt to reduce peripheral edema. Night bddrlj-prbqtew-jfdia labs 12/14/2013 Appointment: Follow up 12/14/2013 Patient Education: Patient Medication Summary Completed 12/14/2013 Patient Education: Hypertension Completed 12/14/2013 Appointment: Noa Orlando WPtel: [phone] [phone] [facility] 12/01/2013 Appointment: Marilyn Lao WPtel: [facility] Sick 11/30/2013 Visit Plan: Allergies - chronic [...] symptoms. 08/01/2013 Appointment: Marilyn Lao WPtel: [phone] [facility] Follow up 08/01/2013 Patient Education: Patient Medication [...] able. 05/02/2013 Appointment: [phone] Follow [facility] 05/02/2013 Patient Education: Patient [...] juice. 04/18/2013 Appointment: [phone] New [facility] 04/18/2013 Patient Education: Patient [...] in blood pressure readings at home. Restless npd-gkhowc-lkfdnwdn requip to twice daily-monitor symptoms Myalgias-stop pravastatin [...] for follow up. Chronic renal disease-check labs Rzzhkkf-hhzmdidqys-kveeevzg with cymbalta-continue same dose for now -may take xanax TID PRN Multiple joint pain-check labs including inflammatory markers . Hypertension - well controlled - continue [...] symptoms Iron deficiency anemia-stopped oral iron per ceramics instructor in March-recheck labs HTN-elevated today-monitor twice daily [...] in blood pressure readings at home. . Tinea/Onychodystrophy - penlac prescribed, pt did [...] at home. Iron deficiency-B12 deficiency-check labs Tick gtod-klwwhsu-lcmsk tick panel . Hypertension - well controlled [...] Daytime napping worsens night time insomnia. . Esophageal Reflux - the patient has been counseled against excessive intake of caffeine, spicy foods, peppermint, and cinnamon - all of which can exacerbate esophageal reflux. The patient is to take medications as prescribed and call the office if the symptoms are not improving. add LOSARTAN 50MG DAILY APPT WITH DR [...] pain or shortness of breath worsens . Allergies - chronic - recommended pt [...] help with her elbow pain, monitor symptoms. doxycycline 100mg twice daily x 2 weeks [...] for viberzi provided and instructed on use. start on the azithromycin today start on [...] further attempt to reduce peripheral edema. Night oqnjkf-exzjurp-wdsrg labs . Hypertension - well controlled - continue [...] situational exposure. No change in current medications. PATIENT IS TO CHECK BLOOD PRESSURE AND [...]
--- OUTSIDE RECORDS SUMMARY | 2018-11-04 16:27 | XMS REPORT | CCD ---
Author Author Marilyn Lao Organization Marilyn Lao MD, [facility] Address [address] [place] [address] Phone Care Team Providers Care Embedded Developer Name Role Phone PP Unavailable CCM Unavailable Summary Purpose Interface Exchange Insurance Providers Payer name Policy type / Coverage type Covered constitution party ID Effective Begin Date Effective End Date WPS Medicare Part B Medicare Part B [id number] Unknown [employer] and Life Medicare Part B [id number] Unknown Family history Mother Diagnosis Age At [...] Description Effective Dates Tobacco history SNOMED CT: 651906474 Never smoker but had significant smoke exposure during first marriage, [place]. 08/01/2013 Employment Unknown Retired doing as needed working for the [employer]. 05/02/2013 Marital status Unknown 04/18/[address]: 602279825 Never drinks alcohol 04/18/2013 Has the patient [...] Fill Instructions tramadol 50 mg tablet RxNorm: 589263 2 Tablet(s) PO BID 12/01/2017 01/29/2018 Active Cymbalta 60 mg capsule,delayed release RxNorm: 698273 TAKE ONE CAPSULE BY MOUTH DAILY 11/10/2017 11/04/2018 Active furosemide 40 mg tablet RxNorm: 848129 1 Tablet(s) PO daily 10/26/2017 10/20/2018 Active alprazolam 0.5 mg tablet RxNorm: 346779 1/2-1 Tablet(s) PO TID PRN as needed 10/12/2017 12/10/2017 Inactive Ciclodan 8 % topical solution RxNorm: 3147398 1 Application TOP daily x 7 days, clean off with alcohol then restart cycle of application until fungal infection is completely cleared 10/06/2017 01/03/2018 Inactive omeprazole 20 mg capsule,delayed release RxNorm: 045575 TAKE ONE CAPSULE BY MOUTH DAILY 10/04/2017 01/24/2018 Inactive losartan 100 mg tablet RxNorm: 352861 1 Tablet(s) PO daily 09/27/2017 03/25/2018 Active Xanax 0.25 mg tablet RxNorm: 489989 1 Tablet(s) PO TID PRN as needed 08/13/2017 10/11/2017 Inactive Xanax 0.5 mg tablet RxNorm: 456607 1 Tablet(s) PO TID PRN as needed 07/23/2017 11/18/2017 Inactive ropinirole 1 mg tablet RxNorm: 987936 TAKE TWO TABLETS BY MOUTH EVERY NIGHT AT BEDTIME 06/28/2017 06/22/2018 Active montelukast 10 mg tablet RxNorm: 101394 TAKE ONE TABLET BY MOUTH EVERY NIGHT AT BEDTIME 06/28/2017 06/22/2018 Active furosemide 20 mg tablet RxNorm: 994055 TAKE TWO TABLETS BY MOUTH DAILY FOR 7 DAYS THEN TAKE ONE TABLET BY MOUTH DAILY 06/28/2017 10/01/2017 Inactive losartan 50 mg tablet RxNorm: 603477 1 Tablet(s) PO daily 06/01/2017 09/26/2017 Inactive labetalol 100 mg tablet RxNorm: 720983 TAKE ONE TABLET BY MOUTH TWICE A DAY 05/26/2017 05/30/2017 Inactive labetalol 100 mg tablet RxNorm: 143996 1 Tablet(s) PO BID 05/26/2017 05/20/2018 Active Protonix 40 mg tablet,delayed release RxNorm: 062143 1 Tablet(s) PO daily 05/26/2017 05/20/2018 Active amlodipine 5 mg tablet RxNorm: 573206 TAKE ONE TABLET BY MOUTH TWICE A DAY 05/26/2017 09/26/2017 Inactive Carafate 1 gram tablet RxNorm: 736735 1 Tablet(s) PO QID 05/11/2017 09/07/2017 Inactive Protonix 40 mg tablet,delayed release RxNorm: 429463 1 Tablet(s) PO daily 05/11/2017 05/25/2017 Inactive Cymbalta 60 mg capsule,delayed release RxNorm: 907818 TAKE ONE CAPSULE BY MOUTH DAILY 05/05/2017 10/31/2017 Inactive Xanax 0.25 mg tablet RxNorm: 559622 1 Tablet(s) PO TID PRN as needed 02/09/2017 06/07/2017 Inactive Cymbalta 60 mg capsule,delayed release RxNorm: 592783 TAKE ONE CAPSULE BY MOUTH DAILY 10/28/2016 04/25/2017 Inactive Xanax 0.25 mg tablet RxNorm: 714184 1 Tablet(s) PO TID PRN as needed 10/08/2016 12/06/2016 Inactive NEED TO GIVE #90 WITH NEXT REFILL Kenalog 40 mg/mL suspension for injection RxNorm: 1465017 Milliliter(s) Inj 09/15/2016 09/15/2016 Inactive tramadol 50 mg tablet RxNorm: 804118 Tablet(s) TAKE 2 TABLETS BY MOUTH TWICE DAILY 08/18/2016 02/12/2017 Inactive Generic For:ULTRAM 50 MG TABLET N O T I C E Last quantity doesn't match original quantity(Response to an electronic controlled substance refill request - RxReferenceNumber: [id number]) potassium chloride ER 10 mEq capsule,extended release RxNorm: 365348 TAKE ONE CAPSULE BY MOUTH DAILY NEEDED 08/03/2016 01/29/2017 Inactive potassium chloride ER 10 mEq capsule,extended release RxNorm: 186102 1 Capsule(s) PO QDAY PRN 06/18/2016 08/02/2016 Inactive furosemide 20 mg tablet RxNorm: 558214 1 Tablet(s) PO daily as needed for swelling 06/18/2016 06/12/2017 Inactive 2 daily x 1 week then daily Carafate 1 gram tablet RxNorm: 895820 1 Tablet(s) PO daily 04/24/2016 04/18/2017 Inactive Cymbalta 60 mg capsule,delayed release RxNorm: 510203 1 Capsule(s) PO daily 04/24/2016 10/20/2016 Inactive montelukast 10 mg tablet RxNorm: 739772 1 Tablet(s) PO QHS 04/24/2016 04/18/2017 Inactive omeprazole 20 mg capsule,delayed release RxNorm: 091190 Capsule(s) 1 Capsule(s) PO daily 04/24/2016 05/31/2017 Inactive ropinirole 1 mg tablet RxNorm: 769467 2 Tablet(s) PO QHS 04/24/2016 04/18/2017 Inactive furosemide 20 mg tablet RxNorm: 351687 1 Tablet(s) PO daily as needed for swelling 04/24/2016 06/17/2016 Inactive labetalol 100 mg tablet RxNorm: 847401 1 Tablet(s) PO BID 04/24/2016 04/18/2017 Inactive amlodipine 5 mg tablet RxNorm: 954627 Tablet(s) TAKE 1 TABLET BY MOUTH TWICE DAILY 04/24/2016 04/18/2017 Inactive Transferring from [facility] Xanax 0.25 mg tablet RxNorm: 600241 1 Tablet(s) PO TID PRN as needed 02/25/2016 03/25/2016 Inactive NEED TO GIVE #90 WITH NEXT REFILL Xanax 0.25 mg tablet RxNorm: 798015 1 Tablet(s) PO BID PRN as needed 02/19/2016 02/24/2016 Inactive [SAVINGS FOR UNINSURED PATIENTS -- BIN:777697, PCN: ASPROD1, Group: AME08, ID# [id number], Process claim through [employer], for questions: . THIS IS NOT INSURANCE.] Cymbalta 60 mg capsule,delayed release RxNorm: 583339 1 Capsule(s) PO daily 01/28/2016 04/23/2016 Inactive ropinirole 1 mg tablet RxNorm: 201868 1 Tablet(s) PO BID TAKE 1 TABLET BY MOUTH DAILY EVERY NIGHT 01/28/2016 04/23/2016 Inactive Generic For:REQUIP 1 MG TABLET tramadol 50 mg tablet RxNorm: 922897 Tablet(s) TAKE 2 TABLETS BY MOUTH TWICE DAILY 01/16/2016 07/13/2016 Inactive Generic For:ULTRAM 50 MG TABLET N O T I C E Last quantity doesn't match original quantity(Response to an electronic controlled substance refill request - RxReferenceNumber: [id number]) omeprazole 20 mg capsule,delayed release RxNorm: 841550 1 Tablet(s) PO daily 1 Capsule(s) PO daily 12/11/2015 04/23/2016 Inactive pravastatin 10 mg tablet RxNorm: 939360 1 Tablet(s) PO QHS TAKE 1 TABLET BY MOUTH EVERY NIGHT 11/28/2015 01/27/2016 Inactive Generic For:PRAVACHOL 10 MG TABLET furosemide 20 mg tablet RxNorm: 263717 1 Tablet(s) PO daily as needed for swelling 11/12/2015 04/23/2016 Inactive pravastatin 10 mg tablet RxNorm: 148597 1 Tablet(s) PO QHS TAKE 1 TABLET BY MOUTH EVERY NIGHT 11/07/2015 11/27/2015 Inactive Generic For:PRAVACHOL 10 MG TABLET Xanax 0.25 mg tablet RxNorm: 444713 1 Tablet(s) PO BID PRN as needed 10/28/2015 01/25/2016 Inactive [SAVINGS FOR UNINSURED PATIENTS -- BIN:742993, PCN: ASPROD1, Group: AME08, ID# [id number], Process claim through [employer], for questions: . THIS IS NOT INSURANCE.] Viberzi 75 mg tablet RxNorm: 2769394 1 Tablet(s) PO BID 10/10/2015 10/10/2015 Inactive doxycycline hyclate 100 mg tablet RxNorm: 611996 1 Tablet(s) PO BID 10/10/2015 10/23/2015 Inactive Vitamins B Complex capsule RxNorm: 1 Capsule(s) PO daily 09/12/2015 No Stop Date Active Vitamin D3 1,000 unit tablet RxNorm: 465759 3-4 Tablet(s) PO daily 09/12/2015 No Stop Date Active Augmentin 500 mg-125 mg tablet RxNorm: 960498 1 Tablet(s) PO BID 07/09/2015 2015 Inactive probiotic one bid x 7 days Augmentin 500 mg-125 mg tablet RxNorm: 283154 1 Tablet(s) PO BID 07/09/2015 07/08/2015 Inactive Xanax 0.25 mg tablet RxNorm: 060783 1 Tablet(s) PO BID PRN as needed 07/01/2015 09/28/2015 Inactive [SAVINGS FOR UNINSURED PATIENTS -- BIN:747946, PCN: ASPROD1, Group: [facility], ID# [id number], Process claim through [employer], for questions: . THIS IS NOT INSURANCE.] sertraline 100 mg tablet RxNorm: 849475 TAKE 1 TABLET BY MOUTH TWICE DAILY 07/01/2015 01/27/2016 Inactive Generic For:*ZOLOFT 100MG TABLET N O T I C E Last quantity doesn't match original quantity amlodipine 5 mg tablet RxNorm: 739510 TAKE 1 TABLET BY MOUTH TWICE DAILY 06/26/2015 04/23/2016 Inactive Generic For:NORVASC 5 MG TABLET N O T I C E Last quantity doesn't match original quantity amlodipine 5 mg tablet RxNorm: 062040 Tablet(s) 1 Tablet(s) PO BID 06/25/2015 06/25/2015 Inactive ropinirole 1 mg tablet RxNorm: 675936 TAKE 1 TABLET BY MOUTH DAILY EVERY NIGHT 05/22/2015 01/27/2016 Inactive Generic For:REQUIP 1 MG TABLET ropinirole 1 mg tablet RxNorm: 819166 Tablet(s) 1 Tablet(s) PO QPM 05/22/2015 05/21/2015 Inactive pravastatin 10 mg tablet RxNorm: 595680 TAKE 1 TABLET BY MOUTH EVERY NIGHT 05/14/2015 11/06/2015 Inactive Generic For:PRAVACHOL 10 MG TABLET tramadol 50 mg tablet RxNorm: 843123 2 Tablet(s) PO BID 04/25/2015 01/18/2016 Inactive labetalol 100 mg tablet RxNorm: 200898 1 Tablet(s) PO BID 04/09/2015 04/23/2016 Inactive omeprazole 20 mg capsule,delayed release RxNorm: 156372 1 Tablet(s) PO daily 1 Capsule(s) PO daily 03/20/2015 12/10/2015 Inactive Carafate 1 gram tablet RxNorm: 381781 Tablet(s) PO UD 4 times daily x 1 week and then PRN 02/27/2015 02/21/2016 Inactive Xanax 0.25 mg tablet RxNorm: 454650 1 Tablet(s) PO BID PRN as needed 02/08/2015 06/06/2015 Inactive [SAVINGS FOR UNINSURED PATIENTS -- BIN:593849, PCN: ASPROD1, Group: [id number], ID# [id number], Process claim through [employer], for questions: . THIS IS NOT INSURANCE.] furosemide 20 mg tablet RxNorm: 482241 1 Tablet(s) PO daily as needed for swelling 10/25/2014 02/21/2015 Inactive ok to fill by Dr. Franklin 10-25-14 Xanax 0.25 mg tablet RxNorm: 376179 1 Tablet(s) PO BID PRN as needed 09/25/2014 01/21/2015 Inactive [SAVINGS FOR UNINSURED PATIENTS -- BIN:332196, PCN: ASPROD1, Group: AME08, ID# [id number], Process claim through [employer], for questions: . THIS IS NOT INSURANCE.] pravastatin 10 mg tablet RxNorm: 362786 TAKE 1 TABLET BY MOUTH EVERY NIGHT 09/06/2014 04/03/2015 Inactive Generic For:PRAVACHOL 10 MG TABLET tramadol 50 mg tablet RxNorm: 610590 TAKE 2 TABLETS BY MOUTH TWICE DAILY 08/02/2014 01/15/2016 Inactive Generic For:ULTRAM 50 MG TABLET N O T I C E Last quantity doesn't match original quantity(Response to an electronic controlled substance refill request - RxReferenceNumber: [id number]) tramadol 50 mg tablet RxNorm: 796531 2 Tablet(s) PO BID 08/01/2014 08/02/2014 Inactive acyclovir 400 mg tablet RxNorm: 729690 2 Tablet(s) PO QID 07/16/2014 07/25/2014 Inactive sertraline 100 mg tablet RxNorm: 244312 1 Tablet(s) PO BID 1 Tablet(s) PO BID 06/13/2014 12/09/2014 Inactive sertraline 100 mg tablet RxNorm: 416306 1 Tablet(s) PO BID 06/13/2014 06/12/2014 Inactive magnesium oxide 400 mg tablet RxNorm: 725113 1 Tablet(s) PO daily 05/25/2014 2014 Inactive ropinirole 1 mg tablet RxNorm: 979659 1 Tablet(s) PO QPM 05/25/2014 05/19/2015 Inactive amlodipine 5 mg tablet RxNorm: 545106 1 Tablet(s) PO BID 05/25/2014 05/19/2015 Inactive prednisone 10 mg tablets in a dose pack RxNorm: 070848 1 Tablet(s) PO UD 04/06/2014 04/10/2014 Inactive 6-5-4-3-2-1 Xanax 0.25 mg tablet RxNorm: 237077 1 Tablet(s) PO BID PRN as needed 04/04/2014 07/02/2014 Inactive [SAVINGS FOR UNINSURED PATIENTS -- BIN:031601, PCN: ASPROD1, Group: AME08, ID# [id number], Process claim through [employer], for questions: . THIS IS NOT INSURANCE.] prednisone 20 mg tablet RxNorm: 868628 3 Tablet(s) PO daily 04/02/2014 04/05/2014 Inactive [SAVINGS FOR UNINSURED PATIENTS -- BIN:984724, PCN: ASPROD1, Group: AME08, ID# [id number], Process claim through [employer], for questions: . THIS IS NOT INSURANCE.] cefdinir 300 mg capsule RxNorm: 444891 1 Capsule(s) PO BID 04/02/2014 04/11/2014 Inactive [SAVINGS FOR UNINSURED PATIENTS -- BIN:794081, PCN: ASPROD1, Group: AME08, ID# [id number], Process claim through [employer], for questions: . THIS IS NOT INSURANCE.] Kenalog 40 mg/mL suspension for injection RxNorm: 7923344 Milliliter(s) Inj 04/02/2014 04/02/2014 Inactive [SAVINGS FOR UNINSURED PATIENTS -- BIN:995243, PCN: ASPROD1, Group: AME08, ID# [id number], Process claim through [employer], for questions: . THIS IS NOT INSURANCE.] ceftriaxone 500 mg solution for injection RxNorm: 253586 Inj 04/02/2014 04/02/2014 Inactive [SAVINGS FOR UNINSURED PATIENTS -- BIN:845229, PCN: ASPROD1, Group: AME08, ID# [id number], Process claim through [employer], for questions: . THIS IS NOT INSURANCE.] albuterol sulfate 2.5 mg/0.5 mL solution for nebulization RxNorm: 644978 1 treatment INH QID and as needed for dyspnea 04/02/2014 05/31/2014 Inactive [SAVINGS FOR UNINSURED PATIENTS -- BIN:740546, PCN: ASPROD1, Group: AME08, ID# [id number], Process claim through [employer], for questions: . THIS IS NOT INSURANCE.] azithromycin 500 mg tablet RxNorm: 559020 1 Tablet(s) PO daily 04/02/2014 04/06/2014 Inactive [SAVINGS FOR UNINSURED PATIENTS -- BIN:270017, PCN: ASPROD1, Group: AME08, ID# [id number], Process claim through [employer], for questions: . THIS IS NOT INSURANCE.] omeprazole 20 mg capsule,delayed release RxNorm: 286050 1 Tablet(s) PO daily 1 Capsule(s) PO daily 02/26/2014 06/25/2014 Inactive Xanax 0.25 mg tablet RxNorm: 799119 1 Tablet(s) PO BID PRN as needed 02/01/2014 04/03/2014 Inactive [SAVINGS FOR UNINSURED PATIENTS -- BIN:866567, PCN: ASPROD1, Group: AME08, ID# [id number], Process claim through [employer], for questions: . THIS IS NOT INSURANCE.] Xanax 0.25 mg tablet RxNorm: 441627 1 Tablet(s) PO HS PRN as needed 01/04/2014 01/31/2014 Inactive [SAVINGS FOR UNINSURED PATIENTS -- BIN:591585, PCN: ASPROD1, Group: AME08, ID# [id number], Process claim through [employer], for questions: . THIS IS NOT INSURANCE.] pravastatin 10 mg tablet RxNorm: 677474 1 Tablet(s) PO QHS 12/21/2013 12/20/2013 Inactive pravastatin 10 mg tablet RxNorm: 115464 1 Tablet(s) PO QHS 12/21/2013 07/18/2014 Inactive [SAVINGS FOR UNINSURED PATIENTS -- BIN:933241, PCN: ASPROD1, Group: AME08, ID# [id number], Process claim through [employer], for questions: . THIS IS NOT INSURANCE.] Hytrin 1 mg tablet RxNorm: 580848 1 Tablet(s) PO BID 12/21/2013 04/08/2015 Inactive [SAVINGS FOR UNINSURED PATIENTS -- BIN:586085, PCN: ASPROD1, Group: AME08, ID# [id number], Process claim through [employer], for questions: . THIS IS NOT INSURANCE.] Hytrin 1 mg tablet RxNorm: 861830 1 Tablet(s) PO daily 12/18/2013 12/20/2013 Inactive [SAVINGS FOR UNINSURED PATIENTS -- BIN:544162, PCN: ASPROD1, Group: AME08, ID# [id number], Process claim through [employer], for questions: . THIS IS NOT INSURANCE.] sertraline 100 mg tablet RxNorm: 127022 1 Tablet(s) PO QHS 12/14/2013 12/08/2014 Inactive [SAVINGS FOR UNINSURED PATIENTS -- BIN:193325, PCN: ASPROD1, Group: AME08, ID# [id number], Process claim through [employer], for questions: . THIS IS NOT INSURANCE.] Xanax 0.25 mg tablet RxNorm: 503472 1 Tablet(s) PO HS PRN as needed 12/13/2013 01/03/2014 Inactive [SAVINGS FOR UNINSURED PATIENTS -- BIN:020228, PCN: ASPROD1, Group: [id number], ID# [id number], Process claim through [employer], for questions: . THIS IS NOT INSURANCE.] tramadol 50 mg tablet RxNorm: 366523 2 Tablet(s) PO BID 11/08/2013 04/24/2015 Inactive Xanax 0.25 mg tablet RxNorm: 809823 1 Tablet(s) PO HS PRN as needed 10/19/2013 10/18/2013 Inactive Xanax 0.25 mg tablet RxNorm: 196926 1 Tablet(s) PO HS PRN as needed 10/19/2013 12/12/2013 Inactive Carafate 1 gram tablet RxNorm: 242389 Tablet(s) PO dissolve 1 tab QID x 1 week, then TID x 1 week, then BID x 1 week 09/07/2013 02/26/2015 Inactive omeprazole 20 mg capsule,delayed release RxNorm: 168631 1 Capsule(s) PO daily 09/07/2013 09/06/2013 Inactive omeprazole 20 mg capsule,delayed release RxNorm: 809426 1 Capsule(s) PO daily 09/07/2013 02/26/2014 Inactive prednisone 10 mg tablet RxNorm: 817175 1 Tablet(s) PO 08/25/2013 12/13/2013 Inactive prednisone taper Zithromax Z-Bon 250 mg tablet RxNorm: 245275 Tablet(s) PO as directed 08/25/2013 12/13/2013 Inactive Zithromax Z-Bon 250 mg tablet RxNorm: 261576 Tablet(s) PO as directed 08/04/2013 08/24/2013 Inactive Xanax 0.25 mg tablet RxNorm: 009226 1 Tablet(s) PO HS PRN 08/01/2013 10/18/2013 Inactive Kenalog 40 mg/mL suspension for injection RxNorm: 5490812 Milliliter(s) Inj 08/01/2013 08/01/2013 Inactive tramadol 50 mg tablet RxNorm: 460915 2 Tablet(s) PO BID 05/02/2013 11/07/2013 Inactive carvedilol 25 mg tablet RxNorm: 221008 1 Tablet(s) PO BID 05/02/2013 12/13/2013 Inactive magnesium oxide 400 mg tablet RxNorm: 484486 1 Tablet(s) PO daily 05/02/2013 04/26/2014 Inactive furosemide 20 mg tablet RxNorm: 609425 2 Tablet(s) PO daily 05/02/2013 2014 Inactive amlodipine 5 mg tablet RxNorm: 733560 1 Tablet(s) PO BID 05/02/2013 04/26/2014 Inactive sertraline 100 mg tablet RxNorm: 471367 1 Tablet(s) PO BID 05/02/2013 12/13/2013 Inactive ropinirole 1 mg tablet RxNorm: 449656 1 Tablet(s) PO QPM 05/02/2013 04/26/2014 Inactive pantoprazole 40 mg tablet,delayed release RxNorm: 591696 1 Tablet(s) PO daily 05/02/2013 2014 Inactive gabapentin 600 mg tablet RxNorm: 721712 1 Tablet(s) PO BID 05/02/2013 2014 Inactive aspirin 81 mg tablet,delayed release RxNorm: 045646 1 Tablet(s) PO daily No Start Date Active ferrous fumarate 325 mg (106 mg iron) tablet RxNorm: 969392 1 Tablet(s) PO daily No Start Date 2014 Inactive amlodipine 5 mg tablet RxNorm: 225983 1 Tablet(s) PO BID No Start Date 05/01/2013 Inactive Vitamin B-12 2,500 mcg sublingual tablet RxNorm: 075315 1 Tablet(s) SL daily No Start Date 2014 Inactive Zithromax Z-Bon 250 mg tablet RxNorm: 255079 Tablet(s) PO as directed No Start Date 08/03/2013 Inactive sertraline 100 mg tablet RxNorm: 536027 1 Tablet(s) PO BID No Start Date 05/01/2013 Inactive Hytrin 1 mg tablet RxNorm: 940525 1 Tablet(s) PO BID No Start Date 12/17/2013 Inactive potassium chloride ER 10 mEq capsule,extended release RxNorm: 440038 1 Capsule(s) PO QDAY PRN No Start Date 06/17/2016 Inactive Xanax 0.25 mg tablet RxNorm: 616016 1 Tablet(s) PO HS PRN No Start Date 07/31/2013 Inactive gabapentin 600 mg tablet RxNorm: 988167 1 Tablet(s) PO BID No Start Date 05/01/2013 Inactive ropinirole 1 mg tablet RxNorm: 610092 1 Tablet(s) PO QPM No Start Date 05/01/2013 Inactive Vitamin D3 1,000 unit tablet RxNorm: 640025 2 Tablet(s) PO daily No Start Date 09/11/2015 Inactive furosemide 20 mg tablet RxNorm: 700512 1 Tablet(s) PO BID No Start Date 05/01/2013 Inactive tramadol 50 mg tablet RxNorm: 741771 2 Tablet(s) PO BID No Start Date 05/01/2013 Inactive Carafate 1 gram tablet RxNorm: 502228 Tablet(s) PO dissolve 1 tab QID x 1 week, then TID x 1 week, then BID x 1 week No Start Date 09/06/2013 Inactive pantoprazole 40 mg tablet,delayed release RxNorm: 454527 1 Tablet(s) PO daily No Start Date 05/01/2013 Inactive montelukast 10 mg tablet RxNorm: 414153 1 Tablet(s) PO QHS No Start Date 04/23/2016 Inactive magnesium oxide 400 mg tablet RxNorm: 989124 1 Tablet(s) PO daily No Start Date 05/01/2013 Inactive prednisone 10 mg tablet RxNorm: 531014 1 Tablet(s) PO No Start Date 08/24/2013 Inactive prednisone taper carvedilol 25 mg tablet RxNorm: 839924 1 Tablet(s) PO BID No Start Date 05/01/2013 Inactive baclofen 10 mg tablet RxNorm: 139711 2 Tablet(s) PO daily No Start Date 12/13/2013 Inactive Vitamin B Complex capsule RxNorm: 1 Capsule(s) PO daily No Start Date 2014 Inactive Medication Administered Medication Codes Instructions Start Date Status Kenalog 40 mg/mL suspension for injection RxNorm: 2558631 Milliliter 09/15/2016 No longer Active Kenalog 40 mg/mL suspension for injection RxNorm: 8952336 Milliliter 04/02/2014 No longer Active ceftriaxone 500 mg solution for injection RxNorm: 261393 04/02/2014 No longer Active Kenalog 40 mg/mL suspension for injection RxNorm: 0641978 Milliliter 08/01/2013 No longer Active Immunizations Vaccine [...] Code Item Item Code Result Date Mayda 865088 MAYDA (MORTEZA) SCREEN NONE DETECTED 06/25/2017 Ra Factor Odu605 RA FACTOR <10 IU/ml 06/24/2017 D-Dimer D-DIMER [...] 41.9 % 06/01/2017 Cbc With Differential Ord2 Lymph% 38.4 % 06/01/2017 Cbc With Differential Ord2 MCV 86.9 fl 06/01/2017 Cbc With Differential Ord2 Fisher% 5.8 % 06/01/2017 Cbc With Differential Ord2 MCH 28.6 pg 06/01/2017 Cbc With Differential Ord2 MCHC 32.9 pg 06/01/2017 Cbc With Differential Ord2 Eos% 1.2 % 06/01/2017 Cbc With Differential Ord2 PLT 270 K/ul 06/01/2017 Cbc With Differential Ord2 Baso% 0.9 % 06/01/2017 Cbc With Differential Ord2 Neut ABS# 3.03 K/ul 06/01/2017 Cbc With Differential Ord2 RDW 13.5 % 06/01/2017 Cbc With Differential Ord2 Lymph ABS# 2.17 K/ul 06/01/2017 Cbc With Differential Ord2 Fisher ABS# 0.3 K/ul 06/01/2017 Cbc With Differential Ord2 Eos ABS# 0.1 K/ul 06/01/2017 Cbc With Differential Ord2 Baso ABS# 0.1 K/ul 06/01/2017 Comp Metabolic Dba299 NA 137 mEq/L 06/01/2017 Comp Metabolic Ppg793 K 3.7 mEq/L 06/01/2017 Comp Metabolic Atk210 CL 100 mEq/L 06/01/2017 Comp Metabolic Plj141 CO2 28.0 mEq/L 06/01/2017 Comp Metabolic Gmp678 ANION GAP 13 06/01/2017 Comp Metabolic Nnx655 GLUCOSE 94 mg/dL 06/01/2017 Comp Metabolic Xao159 Creat 1.3 mg/dL 06/01/2017 Comp Metabolic Xyu514 eGFR 45 ml/min/1.73m2 06/01/2017 Comp Metabolic Rke237 BUN 12 mg/dL 06/01/2017 Comp Metabolic Zir918 B/C Ratio 9.6 Ratio 06/01/2017 Comp Metabolic Zhc628 CALCIUM 9.5 mg/dL 06/01/2017 Comp Metabolic Obh940 ALK PHOS 77 U/L 06/01/2017 Comp Metabolic Ltx751 AST(SGOT) 17 U/L 06/01/2017 Comp Metabolic Jsz459 ALT(SGPT) 15 U/L 06/01/2017 Comp Metabolic Vax296 BILI T 0.5 mg/dL 06/01/2017 Comp Metabolic Koy390 ALBUMIN 4.4 g/dL 06/01/2017 Comp Metabolic Cbs539 TPRO 7.0 g/dL 06/01/2017 Comp Metabolic Vki525 GLOB 2.6 g/dL 06/01/2017 Comp Metabolic [address]291 A/G Ratio 1.7 Ratio 06/01/2017 Comp Metabolic Hqw325 Osmo 273 mOsmo 06/01/2017 Mayda [id number] MAYDA (MORTEZA) SCREEN NONE DETECTED 06/22/2016 C-Reactive Protein Qnt Crqnt CRP 0.3 mg/dl 06/19/2016 Sed Rate Ord21 ESR 11 mm/hr 06/19/2016 Ra Factor Jvt974 RA FACTOR <10 IU/ml 06/19/2016 Sed Rate Ord21 ESR 14 mm/hr 02/25/2016 C-Reactive Protein Qnt Crqnt CRP 0.3 mg/dl 02/25/2016 Comp Metabolic Fve302 NA 136 mEq/L 02/25/2016 Comp Metabolic Msc673 K 3.9 mEq/L 02/25/2016 Comp Metabolic Igt874 CL 103 mEq/L 02/25/2016 Comp Metabolic Dlq628 CO2 27.0 mEq/L 02/25/2016 Comp Metabolic Ycu101 ANION GAP 10 02/25/2016 Comp Metabolic Cdi563 GLUCOSE 82 mg/dL 02/25/2016 Comp Metabolic Ysg885 Creat 1.3 mg/dL 02/25/2016 Comp Metabolic Aac425 eGFR 45 ml/min/1.73m2 02/25/2016 Comp Metabolic Xxs980 BUN 13 mg/dL 02/25/2016 Comp Metabolic Fuz844 B/C Ratio 10.3 Ratio 02/25/2016 Comp Metabolic Yug952 CALCIUM 9.5 mg/dL 02/25/2016 Comp Metabolic Mmj436 ALK PHOS 70 U/L 02/25/2016 Comp Metabolic Ape490 AST(SGOT) 17 U/L 02/25/2016 Comp Metabolic Ire493 ALT(SGPT) 13 U/L 02/25/2016 Comp Metabolic Kvo869 BILI T 0.4 mg/dL 02/25/2016 Comp Metabolic Wmq707 ALBUMIN 4.2 g/dL 02/25/2016 Comp Metabolic Eod562 TPRO 6.6 g/dL 02/25/2016 Comp Metabolic Hfq087 GLOB 2.4 g/dL 02/25/2016 Comp Metabolic Tdv758 A/G Ratio 1.7 Ratio 02/25/2016 Comp Metabolic Ugv319 Osmo 271 mOsmo 02/25/2016 Cbc With Differential [...] 29.1 pg 02/25/2016 Cbc With Differential Ord2 Fisher% 6.8 % 02/25/2016 Cbc With Differential Ord2 [...] 1.62 K/ul 02/25/2016 Cbc With Differential Ord2 Fisher ABS# 0.4 K/ul 02/25/2016 Cbc With Differential Ord2 Eos ABS# 0.1 K/ul 02/25/2016 Cbc With Differential Ord2 Baso ABS# 0.0 K/ul 02/25/2016 Tsh Ord6 hTSH II 1.63 uIU/mL 02/25/2016 [place] Spotted Fever Igg/Igm [id number] BENIGNO MT SPOTTED FEVER IGM EIA . 09/17/2015 [place] Spotted Fever Igg/Igm 927409 RMSF, IGM 0.27 index 09/17/2015 [place] Spotted Fever Igg/Igm 845614 BENIGNO MT SPOTTED FEVER IGG EIA FLEX . 09/17/2015 [place] Spotted Fever Igg/Igm 957336 RMSF, IGG SCREEN-FLEX Negative 09/17/2015 Ehrlichia Chaffeensis Antibody Igm 300487 EHRLICHIA CHAFFEENSIS IGM < 1:16 09/16/2015 Ehrlichia Chaffeensis Antibody Igg [id number] EHRLICHIA CHAFFEENSIS IGG 1:256 09/16/2015 Lymes Disease Total Antibodies With Western Blot Reflex [id number] B. BURGDORFERI, IGG/IGM 0.10 LI 09/14/2015 Lymes Disease Total Antibodies With Western Blot Reflex [id number] 09/14/2015 Vitamin D 25 Oh Obp9821 VITAMIN D, 25 HYDROXY 59.60 ng/mL 09/13/2015 Sed Rate Ord21 ESR 10 mm/hr 09/12/2015 Comp Metabolic Gce480 NA 139 mEq/L 09/12/2015 Comp Metabolic Qxt870 K 3.8 mEq/L 09/12/2015 Comp Metabolic Kmq482 CL 103 mEq/L 09/12/2015 Comp Metabolic Kkx565 CO2 27.0 mEq/L 09/12/2015 Comp Metabolic Ohg872 ANION GAP 13 09/12/2015 Comp Metabolic Amm347 GLUCOSE 91 mg/dL 09/12/2015 Comp Metabolic Wvd913 Creat 1.2 mg/dL 09/12/2015 Comp Metabolic Mrh114 eGFR 47 ml/min/1.73m2 09/12/2015 Comp Metabolic Mdh739 BUN 20 mg/dL 09/12/2015 Comp Metabolic Ngd439 B/C Ratio 16.3 Ratio 09/12/2015 Comp Metabolic Hwz474 CALCIUM 9.3 mg/dL 09/12/2015 Comp Metabolic Vxr933 ALK PHOS 55 U/L 09/12/2015 Comp Metabolic Laz466 AST(SGOT) 19 U/L 09/12/2015 Comp Metabolic Lkd419 ALT(SGPT) 14 U/L 09/12/2015 Comp Metabolic Npc823 BILI T 0.6 mg/dL 09/12/2015 Comp Metabolic Mha963 ALBUMIN 4.3 g/dL 09/12/2015 Comp Metabolic Jaz606 TPRO 6.8 g/dL 09/12/2015 Comp Metabolic Yax741 GLOB 2.5 g/dL 09/12/2015 Comp Metabolic Sfd769 A/G Ratio 1.8 Ratio 09/12/2015 Comp Metabolic Ett249 Osmo 280 mOsmo 09/12/2015 B12 Nyz227 B12 >1500.00 pg/ml 09/12/2015 Cbc With Differential [...] 31.5 % 09/12/2015 Cbc With Differential Ord2 Fisher% 5.9 % 09/12/2015 Cbc With Differential Ord2 [...] 1.33 K/ul 09/12/2015 Cbc With Differential Ord2 Fisher ABS# 0.3 K/ul 09/12/2015 Cbc With Differential [...] gingiva 09/27/2017 None Full Exam - General 1995 Ears/Nose/Throat lips/teeth/gingiva Overall: no masses 09/27/2017 None [...] Full Exam - General 1994 Neurologic coordination Agsmhi-qgpr-wufngb testing - left: dysmetria 05/11/2017 None Full Exam - General 1994 Neurologic coordination Seghun-xfhu-tnmayx testing - right: dysmetria 05/11/2017 None Full [...] Full Exam - General 1994 Neurologic coordination Hemacs-lkwp-irkmah testing - left: dysmetria 04/20/2016 None Full Exam - General 1994 Neurologic coordination Vhbjhr-dgjv-jtitsc testing - right: dysmetria 04/20/2016 None Full [...] Full Exam - General 1994 Neurologic coordination Twlqur-rsna-ydoeaq testing - left: dysmetria 02/25/2016 None Full Exam - General 1994 Neurologic coordination Hflsyn-jjdu-kdfowc testing - right: dysmetria 02/25/2016 None Full [...] Full Exam - General 1994 Neurologic coordination Fxabdu-zrya-twhdpl testing - left: dysmetria 01/28/2016 None Full Exam - General 1994 Neurologic coordination Tffnmz-hrtx-ldmimv testing - right: dysmetria 01/28/2016 None Full [...] palp - head/face Lesion: excoriation 07/16/2014 right episcopal, redness right eyelid Full Exam - Dermatology [...] Procedure Codes Date THER/PROPH/DIAG INJ SC/IM CPT-4: 11906 09/15/2016 TRIAMCINOLONE ACET INJ NOS CPT-4: J3301 09/15/2016 ADMIN INFLUENZA VIRUS VAC CPT-4: G0008 01/08/2016 ADMIN PNEUMOCOCCAL VACCINE SNOMED CT: 28320462 CPT-4: G0009 01/08/2016 PNEUMOCOCCAL VACC 13 RIVERA IM Formatting Model/CDA Sections, Assigned to/Aliya Muñoz SNOMED CT: 51139197 CPT-4: 08699Ingfgua 01/08/2016 FLU VACC 4 RIVERA 3 YRS PLUS IM SNOMED CT: 15835451 CPT-4: 94255 01/08/2016 THER/PROPH/DIAG INJ SC/IM CPT-4: 29408 04/02/2014 TRIAMCINOLONE ACET INJ NOS CPT-4: J3301 04/02/2014 ROCEPHIN, PER 250 MG CPT- 4: J0696 04/02/2014 TRIAMCINOLONE ACET INJ NOS CPT-4: J3301 08/01/2013 THER/PROPH/DIAG INJ SC/IM CPT-4: 36702 08/01/2013 Vital Signs Date Vital 01/25/2018 Blood Pressure 1: 130/68 Code: 8480-6 BMI: 34.4 Code: 31171-8 Heart Rate 1: 91 bpm Height: 5'5" SpO2: 95% Weight: 207 lbs 10/06/2017 Blood Pressure 1: 118/78 Code: 8480-6 BMI: 34.3 Code: 54252-5 Heart Rate 1: 75 bpm Height: 5'5" SpO2: 98% Weight: 206 lbs 09/27/2017 Blood Pressure 1: 136/88 Code: 8480-6 BMI: 35.4 Code: 62600-4 Heart Rate 1: 86 bpm Height: 5'5" SpO2: 98% Weight: 213 lbs 07/23/2017 Blood Pressure 1: 106/58 Code: 8480-6 BMI: 34.8 Code: 90307-5 Heart Rate 1: 70 bpm Height: 5'5" SpO2: 96% Weight: 209 lbs 06/01/2017 Blood Pressure 1: 150/96 Code: 8480-6 BMI: 34.4 Code: 39825-1 Heart Rate 1: 82 bpm Height: 5'5" SpO2: 99% Weight: 207 lbs 05/11/2017 Blood Pressure 1: 144/90 Code: 8480-6 BMI: 34.6 Code: 64949-9 Heart Rate 1: 76 bpm Height: 5'5" SpO2: 98% Weight: 208 lbs 10/30/2016 Blood Pressure 1: 172/104 Code: 8480-6 Blood Pressure 1: 158/98 Code: 8480-6 BMI: 34.7 Code: 34697-9 Heart Rate 1: 70 bpm Height: 5'5" SpO2: 97% Temperature: 36.2 (C) / 97.1 (F) Weight: 208 lbs 10 oz 04/20/2016 Blood Pressure 1: 144/86 Code: 8480-6 BMI: 34.3 Code: 32818-4 Heart Rate 1: 68 bpm Height: 5'5" SpO2: 97% Weight: 206 lbs 02/25/2016 Blood Pressure 1: 122/82 Code: 8480-6 BMI: 34.4 Code: 82582-0 Heart Rate 1: 86 bpm Height: 5'5" SpO2: 94% Weight: 207 lbs 01/28/2016 Blood Pressure 1: 128/86 Code: 8480-6 BMI: 33.3 Code: 84417-4 Heart Rate 1: 86 bpm Height: 5'5" SpO2: 96% Weight: 200 lbs 11/14/2015 Blood Pressure 1: 138/88 Code: 8480-6 Blood Pressure 1: 140/90 Code: 8480-6 BMI: 33.3 Code: 78135-1 Heart Rate 1: 98 bpm Height: 5'5" SpO2: 97% Weight: 200 lbs 10/10/2015 Blood Pressure 1: 132/80 Code: 8480-6 BMI: 33.3 Code: 99284-0 Heart Rate 1: 74 bpm Height: 5'5" SpO2: 96% Weight: 200 lbs 09/12/2015 Blood Pressure 1: 148/90 Code: 8480-6 BMI: 32.9 Code: 76937-5 Heart Rate 1: 94 bpm Height: 5'5" SpO2: 97% Weight: 198 lbs 04/09/2015 Blood Pressure 1: 130/84 Code: 8480-6 Blood Pressure 1: 160/82 Code: 8480-6 BMI: 32.4 Code: 37146-2 Heart Rate 1: 74 bpm Height: 5'5" SpO2: 95% Weight: 195 lbs 10/05/2014 Blood Pressure 1: 140/80 Code: 8480-6 BMI: 30.5 Code: 83926-1 Heart Rate 1: 79 bpm Height: 5'5" SpO2: 98% Weight: 183 lbs 09/07/2014 Blood Pressure 1: 142/96 Code: 8480-6 BMI: 32.1 Code: 43118-0 Heart Rate 1: 72 bpm Height: 5'5" SpO2: 98% Temperature: 36.5 (C) / 97.7 (F) Weight: 193 lbs 07/16/2014 Blood Pressure 1: 138/82 Code: 8480-6 BMI: 31.8 Code: 24471-0 Heart Rate 1: 76 bpm Height: 5'5" Weight: 191 lbs 04/02/2014 Blood Pressure 1: 148/90 Code: 8480-6 BMI: 33.8 Code: 50975-2 Heart Rate 1: 68 bpm Height: 5'5" Temperature: 36.9 (C) / 98.4 (F) Weight: 203 lbs 12/14/2013 Blood Pressure 1: 140/88 Code: 8480-6 BMI: 35.3 Code: 57751-9 Heart Rate 1: 91 bpm Height: 5'5" SpO2: 97% Weight: 212 lbs 08/01/2013 Blood Pressure 1: 126/68 Code: 8480-6 BMI: 35.1 Code: 51225-4 Heart Rate 1: 76 bpm Height: 5'5" Temperature: 36.7 (C) / 98.1 (F) Weight: 211 lbs 05/02/2013 Blood Pressure 1: 118/86 Code: 8480-6 BMI: 34.9 Code: 51709-5 Heart Rate 1: 76 bpm Height: 5'5" Weight: 209 lbs 8 oz 04/18/2013 Blood Pressure 1: 118/60 Code: 8480-6 BMI: 35.3 Code: 42247-8 Heart Rate 1: 68 bpm Height: 5'5" [...] data Encounters Encounter Performer Location Codes Date ([id number]) 56380 EST. PATIENT, LEVEL III Diagnosis: Essential (primary) hypertension[ICD10: I10] Marilyn Lao MD, [facility] CPT-4: 36805 01/25/2018 ([id number]) 86557 EST. PATIENT, LEVEL III Diagnosis: Nail dystrophy[ICD10: L60.3] Diagnosis: Localized edema[ICD10: R60.0] Marilyn Lao MD, [facility] CPT-4: 09366 10/06/2017 ([id number]) 79214 EST. PATIENT, LEVEL IV Diagnosis: Essential (primary) hypertension[ICD10: I10] Diagnosis: Localized edema[ICD10: R60.0] Marilyn Lao MD, [facility] CPT-4: 36520 09/27/2017 ([id number]) 76214 EST. PATIENT, LEVEL IV Diagnosis: Generalized anxiety disorder[ICD10: F41.1] Diagnosis: Essential (primary) hypertension[ICD10: I10] Diagnosis: Chronic pain syndrome[ICD10: G89.4] Noa Lao MD, [facility] CPT-4: 38990 07/23/2017 ([id number]) 00214 EST. PATIENT, LEVEL IV Diagnosis: Essential (primary) hypertension[ICD10: I10] Diagnosis: Chest pain, unspecified[ICD10: R07.9] Diagnosis: Chronic kidney disease, stage 3 (moderate)[ICD10: N18.3] Noa Lao MD, [facility] CPT-4: 46808 06/01/2017 95230 EST. PATIENT, LEVEL IV Diagnosis: Gastro-esophageal reflux disease without esophagitis[ICD10: K21.9] Anais Lao MD, [facility] CPT-4: 01064 05/11/2017 ([id number]) 07423 EST. PATIENT, LEVEL III Diagnosis: Essential (primary) hypertension[ICD10: I10] Diagnosis: Contusion of right lower leg, initial encounter[ICD10: S80.11XA] oNa Lao MD, [facility] CPT-4: 96172 10/30/2016 ([id number]) 33395 EST. PATIENT, LEVEL IV Diagnosis: Essential (primary) hypertension[ICD10: I10] Diagnosis: Generalized anxiety disorder[ICD10: F41.1] Marilyn Lao MD, [facility] CPT-4: 60109 04/20/2016 ([id number]) 70815 EST. PATIENT, LEVEL IV Diagnosis: Essential (primary) hypertension[ICD10: I10] Diagnosis: Chronic kidney disease, stage 3 (moderate)[ICD10: N18.3] Diagnosis: Generalized anxiety disorder[ICD10: F41.1] Diagnosis: Major depressive disorder, recurrent, moderate[ICD10: F33.1] Diagnosis: Shortness of breath[ICD10: R06.02] Noa Lao MD, [facility] CPT- 4: 61964 02/25/2016 ([id number]) 62786 EST. PATIENT, LEVEL IV Diagnosis: Generalized anxiety disorder[ICD10: F41.1] Diagnosis: Major depressive disorder, recurrent, moderate[ICD10: F33.1] Diagnosis: Essential (primary) hypertension[ICD10: I10] Diagnosis: Restless legs syndrome[ICD10: G25.81] Diagnosis: Myalgia[ICD10: M79.1] Noa Lao MD, [facility] CPT-4: 81605 01/28/2016 ([id number]) 03245 EST. PATIENT, LEVEL III Diagnosis: Essential (primary) hypertension[ICD10: I10] Diagnosis: Insomnia, unspecified[ICD10: G47.00] Noa Lao MD, [facility] CPT-4: 66494 11/14/2015 ([id number]) 65583 EST. 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 PATIENT, LEVEL IV Diagnosis: Bitten or stung by nonvenomous insect and other nonvenomous arthropods, initial encounter[ICD10: W57.XXXA] Diagnosis: Other fatigue[ICD10: R53.83] Diagnosis: Vitamin D deficiency, unspecified[ICD10: E55.9] Diagnosis: Other vitamin B12 deficiency anemias[ICD10: D51.8] Diagnosis: Essential (primary) hypertension[ICD10: I10] Diagnosis: Iron deficiency[ICD10: E61.1] Noa Lao MD, [facility] CPT-4: 98173 09/12/2015 ([id number]) 12654 EST. PATIENT, LEVEL III Diagnosis: Essential (primary) hypertension[ICD10: I10] Diagnosis: Chronic kidney disease, stage 3 (moderate)[ICD10: N18.3] Noa Lao MD, [facility] CPT-4: 31928 04/09/2015 ([id number]) 90303 EST. PATIENT, LEVEL III Diagnosis: ESSENTIAL HYPERTENSION[ICD9: 401.9] Noa Lao MD, [facility] CPT-4: 69483 10/05/2014 ([id number]) 04437 EST. PATIENT, LEVEL IV Diagnosis: Easy bruising[ICD9: 782.9] Diagnosis: Iron deficiency anemia[ICD9: 280.9] Diagnosis: ESSENTIAL HYPERTENSION[ICD9: 401.9] Diagnosis: Chronic kidney disease, stage 3[ICD9: 585.3] Noa Lao MD, [facility] CPT-4: 65455 09/07/2014 ([id number]) 92143 EST. PATIENT, LEVEL III Diagnosis: Shingles[ICD9: 053.9] Marilyn Lao MD, [facility] CPT-4: 63031 07/16/2014 ([id number]) 23478 EST. PATIENT, LEVEL III Diagnosis: PNEUMONIA (CAP)[ICD9: 486] Diagnosis: COUGH[ICD9: 786.2] Marilyn Lao MD, [facility] CPT-4: 03743 04/02/2014 ([id number]) 74110 EST. PATIENT, LEVEL III Diagnosis: ESSENTIAL HYPERTENSION[ICD9: 401.9] Diagnosis: Rib pain on left side[ICD9: 786.50] Diagnosis: EDEMA[ICD9: 782.3] Noa Lao MD, [facility] CPT-4: 28348 12/14/2013 ([id number]) 12176 EST. PATIENT, LEVEL IV Diagnosis: ESOPHAGEAL REFLUX[ICD9: 530.81] Diagnosis: Urge incontinence[ICD9: 788.31] Diagnosis: Elbow pain, right[ICD9: 719.42] Diagnosis: Snoring[ICD9: 786.09] Marilyn Lao MD, [facility] CPT-4: 63235 08/01/2013 ([id number]) 06724 EST. PATIENT, LEVEL IV Diagnosis: ESSENTIAL HYPERTENSION[SNOMED: 91890335] Diagnosis: EDEMA[ICD9: 782.3] Diagnosis: Chronic renal insufficiency, stage III (moderate)[ICD9: 585.3] Diagnosis: HYPERLIPIDEMIA[ICD9: 272.4] Marilyn Lao MD, [facility] CPT-4: 46539 05/02/2013 ([id number]) 00354 EST. PATIENT, LEVEL IV Diagnosis: ESSENTIAL HYPERTENSION[SNOMED: 14248956] Diagnosis: Restless leg[ICD9: 333.94] Marilyn Lao MD, [facility] CPT-4: 13047 04/18/2013 Plan of Care Planned Activity Notes Codes Status Date Visit Plan: Hypertension - well controlled - continue with current medications, continue with no added salt diet. Pt has been encouraged to exercise daily. The pt has been advised to call the office if there are any acute concerns about change in blood pressure readings at home. 01/25/2018 Patient Education: Patient Medication Summary Completed 01/25/2018 Appointment: Marilyn Lao WPtel: [phone] (15 min) Moderate 01/06/2018 Patient Education: Patient Medication Summary Completed 10/26/2017 Care Plan: Comp Metabolic Cancelled 10/26/2017 Visit Plan: Tinea/Onychodystrophy - penlac prescribed, pt did not want to take medication by mouth for treatment. Edema - improved - continue current regimen. 10/06/2017 Appointment: [phone] [facility] [place] (15 min) Moderate 10/06/2017 Patient Education: Patient [...] at home. 09/27/2017 Appointment: [phone] [facility] [place] (15 min) Moderate 09/27/2017 Patient Education: Patient [...] pain-recommend massage 07/23/2017 Appointment: Noa Orlando WPtel: [phone] (15 min) Moderate 07/23/2017 Patient Education: Patient [...] worsens 06/01/2017 [facility]ment[phone] (30 min) Complex 06/01/2017 Patient Education: Patient Medication Summary Completed 06/01/2017 Care Plan: Referral Order SNOMED-CT : 440789468 Pending 06/01/2017 Visit Plan: Esophageal Reflux - the patient has been counseled against excessive intake of caffeine, spicy foods, peppermint, and cinnamon - all of which can exacerbate esophageal reflux. The patient is to take med ications as prescribed and call the office if the symptoms are not improving. 05/11/2017 Appointment: [facility]ais Arri[facility] [phone] [facility] (15 min) Moderate 05/11/2017 Patient Education: [...] Completed 09/15/2016 Appointment: Marilyn Lao WPtel: [phone] [phone] (15 min) Moderate 08/19/2016 Patient Education: Patient [...] current medications. 04/20/2016 Appointment: Marilyn Lao WPtel: [phone] (30 min) Complex 04/20/2016 Patient Education: Patient Medication Summary Completed 04/20/2016 Patient Education: Obesity Completed 04/20/2016 Patient Education: Hypertension Completed 04/20/2016 Appointment: Noa Orlnado WPtel: [phone] (30 min) Complex 03/16/2016 Referral: Ta Santacruz [...] for follow up. Chronic renal disease-check labs Ecmbxfz-dzxodicimk-vqrzahhv with cymbalta-continue same dose for now -may take xanax TID PRN Multiple joint pain-check labs including inflammatory markers 02/25/2016 Appointment: Noa Orlando WPtel: [phone] [phone] [place] (30 min) Complex 02/25/2016 Patient Education: Patient Medication Summary Completed 02/25/2016 Patient Education: Obesity Completed 02/25/2016 Patient Education: Hypertension Completed 02/25/2016 Care Plan: Referral Order SNOMED-CT : 003050126 Pending 02/25/2016 Visit Plan: Anxiety/Depression - the [...] in blood pressure readings at home. Restless kup-cbmrsi-vkokaacs requip to twice daily-monitor symptoms Myalgias-stop pravastatin 01/28/2016 Appointment: Noa Orlando WPtel[phone] [place] (30 min) Complex 01/28/2016 Patient Education: Patient [...] 10/10/2015 Patient Education: Hypertension Completed 10/10/2015 Appointment: [facility]n [phone] [facility] (15 min) Moderate 10/08/2015 Visit Plan: Hypertension - well controlled - continue with current medications, continue with no added salt diet. Pt has been encouraged to exercise daily. The pt has been advised to call the office if there are any acute concerns about change in blood pressure readings at home. Iron deficiency- B12 deficiency-check labs Tick hrss-sjgezou-fbwnn tick panel 09/12/2015 Appointment: [facility] [place] [phone] [phone] (15 min) Moderate 09/12/2015 Patient Education: Patient [...] symptoms Iron deficiency anemia-stopped oral iron per bag adjuster in March-recheck labs HTN-elevated today-monitor twice daily [...] Care Plan: COMPLETE CBC AUTOMATED LOINC : 70771-9 Ordered 09/07/2014 Visit Plan: Shingles - Herpes [...] Summary Completed 07/16/2014 Appointment: Marilyn Lao WPtel: [phone] Follow up 04/16/2014 Appointment: Sick 04/03/2014 Visit Plan: Pneumonia - Pt has been diagnosed with pneumonia by physical exam. Antibiotics started. The pt is aware of the diagnosis and the need for acute treatment of this illness. 04/02/2014 Patient Education: Patient Medication Summary Completed 04/02/2014 Appointment: Marilyn Lao WPtel: [phone] Sick 12/27/2013 Patient Education: Patient Medication Summary [...] further attempt to reduce peripheral edema. Night ncstpp-xlfvtao-yiyyg labs 12/14/2013 Appointment: Follow up 12/14/2013 Patient Education: Patient Medication Summary Completed 12/14/2013 Patient Education: Hypertension Completed 12/14/2013 Appointment: Darion Noa WPtel: [phone] Sick 12/01/2013 Appointment: Marilyn Lao WPtel: [phone] Sick 11/30/2013 Visit Plan: Allergies - chronic [...] monitor symptoms. 08/01/2013 Appointment: Marilyn Lao WPtel: [address] [place], [place] [phone] Follow up 08/01/2013 Patient Education: Patient Medication [...] as able. 05/02/2013 Appointment: Marilyn Lao WPtel: [facility] Follow up 05/02/2013 Patient Education: Patient [...] orange juice. 04/18/2013 Appointment: Marilyn Lao WPtel: [facility] New Patient 04/18/2013 Patient Education: Patient [...] in blood pressure readings at home. Restless ykx-dgjccv-doxkorqv requip to twice daily-monitor symptoms Myalgias-stop pravastatin [...] for follow up. Chronic renal disease-check labs Rmsjeij-vfeqzplzgi-mgptqiam with cymbalta-continue same dose for now -may [...] at home. Iron deficiency-B12 deficiency-check labs Tick nvtg-bwiiboy-dlqut tick panel PATIENT IS TO CHECK BLOOD [...] infection or other concerns . Tinea/Onychodystrophy - penla prescribed, pt did not want to take [...] symptoms Iron deficiency anemia-stopped oral iron per bag adjuster in March-recheck labs HTN-elevated today-monitor twice daily [...] further attempt to reduce peripheral edema. Night uqjwns-dtqnepp-fwmaf labs
--- OUTSIDE RECORDS SUMMARY | 2018-11-04 16:31 | XMS REPORT | CCD ---
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 08/01/2013 Employment Unknown Retired doing as needed working for the [employer]. 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 10/06/2017 Unknown Chronic pain syndrome ICD- 9: 338.4 ICD-10: G89.4 Active 07/23/2017 Unknown Essential (primary) hypertension ICD-9: 401.9 ICD-10: [...] (moderate) ICD-9: 585.3 ICD-10: N18.3 02/24/2016 Active Essential (primary) hypertension ICD-9: 401.1 ICD-10: I10 09/27/2017 Active Localized edema ICD-9: 782.3 ICD-10: R60.0 09/27/2017 Active 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 10/06/2017 Active Chronic pain syndrome ICD- 9: 338.4 ICD-10: G89.4 07/23/2017 Active Essential (primary) hypertension ICD-9: 401.9 ICD-10: [...] Start Date Stop Date Status Fill Instructions Cymbalta 60 mg capsule,delayed release RxNorm: 048143 TAKE ONE CAPSULE BY MOUTH DAILY 11/10/2017 11/04/2018 Active furosemide 40 mg tablet RxNorm: 381293 1 Tablet(s) PO daily 10/26/2017 10/20/2018 Active alprazolam 0.5 mg tablet RxNorm: 708789 1/2-1 Tablet(s) PO TID PRN as needed 10/12/2017 12/10/2017 Active Ciclodan 8 % topical solution RxNorm: 7961229 1 Application TOP daily x 7 days, clean off with alcohol then restart cycle of application until fungal infection is completely cleared 10/06/2017 01/03/2018 Active omeprazole 20 mg capsule,delayed release RxNorm: 782780 TAKE ONE CAPSULE BY MOUTH DAILY 10/04/2017 06/30/2018 Active losartan 100 mg tablet RxNorm: 073116 1 Tablet(s) PO daily 09/27/2017 03/25/2018 Active Xanax 0.25 mg tablet RxNorm: 793693 1 Tablet(s) PO TID PRN as needed 08/13/2017 10/11/2017 Inactive Xanax 0.5 mg tablet RxNorm: 801627 1 Tablet(s) PO TID PRN as needed 07/23/2017 11/18/2017 Active ropinirole 1 mg tablet RxNorm: 881713 TAKE TWO TABLETS BY MOUTH EVERY NIGHT AT BEDTIME 06/28/2017 06/22/2018 Active montelukast 10 mg tablet RxNorm: 573855 TAKE ONE TABLET BY MOUTH EVERY NIGHT AT BEDTIME 06/28/2017 06/22/2018 Active furosemide 20 mg tablet RxNorm: 054086 TAKE TWO TABLETS BY MOUTH DAILY FOR 7 DAYS THEN TAKE ONE TABLET BY MOUTH DAILY 06/28/2017 10/01/2017 Inactive losartan 50 mg tablet RxNorm: 406121 1 Tablet(s) PO daily 06/01/2017 09/26/2017 Inactive labetalol 100 mg tablet RxNorm: 824060 TAKE ONE TABLET BY MOUTH TWICE A DAY 05/26/2017 05/30/2017 Inactive labetalol 100 mg tablet RxNorm: 744665 1 Tablet(s) PO BID 05/26/2017 05/20/2018 Active Protonix 40 mg tablet,delayed release RxNorm: 730251 1 Tablet(s) PO daily 05/26/2017 05/20/2018 Active amlodipine 5 mg tablet RxNorm: 391558 TAKE ONE TABLET BY MOUTH TWICE A DAY 05/26/2017 09/26/2017 Inactive Carafate 1 gram tablet RxNorm: 141576 1 Tablet(s) PO QID 05/11/2017 09/07/2017 Inactive Protonix 40 mg tablet,delayed release RxNorm: 008575 1 Tablet(s) PO daily 05/11/2017 05/25/2017 Inactive Cymbalta 60 mg capsule,delayed release RxNorm: 432342 TAKE ONE CAPSULE BY MOUTH DAILY 05/05/2017 10/31/2017 Inactive Xanax 0.25 mg tablet RxNorm: 516761 1 Tablet(s) PO TID PRN as needed 02/09/2017 06/07/2017 Inactive Cymbalta 60 mg capsule,delayed release RxNorm: 862032 TAKE ONE CAPSULE BY MOUTH DAILY 10/28/2016 04/25/2017 Inactive Xanax 0.25 mg tablet RxNorm: 711935 1 Tablet(s) PO TID PRN as needed 10/08/2016 12/06/2016 Inactive NEED TO GIVE #90 WITH NEXT REFILL Kenalog 40 mg/mL suspension for injection RxNorm: 0040658 Milliliter(s) Inj 09/15/2016 09/15/2016 Inactive tramadol 50 mg tablet RxNorm: 279119 Tablet(s) TAKE 2 TABLETS BY MOUTH TWICE DAILY 08/18/2016 02/13/2017 Inactive Generic For:ULTRAM 50 MG TABLET N O T I C E Last quantity doesn't match original quantity(Response to an electronic controlled substance refill request - RxReferenceNumber: [id number]) potassium chloride ER 10 mEq capsule,extended release RxNorm: 853416 TAKE ONE CAPSULE BY MOUTH DAILY NEEDED 08/03/2016 01/29/2017 Inactive potassium chloride ER 10 mEq capsule,extended release RxNorm: 834108 1 Capsule(s) PO QDAY PRN 06/18/2016 08/02/2016 Inactive furosemide 20 mg tablet RxNorm: 071347 1 Tablet(s) PO daily as needed for swelling 06/18/2016 06/12/2017 Inactive 2 daily x 1 week then daily Carafate 1 gram tablet RxNorm: 672668 1 Tablet(s) PO daily 04/24/2016 04/18/2017 Inactive Cymbalta 60 mg capsule,delayed release RxNorm: 944279 1 Capsule(s) PO daily 04/24/2016 10/20/2016 Inactive montelukast 10 mg tablet RxNorm: 635669 1 Tablet(s) PO QHS 04/24/2016 04/18/2017 Inactive omeprazole 20 mg capsule,delayed release RxNorm: 341507 Capsule(s) 1 Capsule(s) PO daily 04/24/2016 05/31/2017 Inactive ropinirole 1 mg tablet RxNorm: 800519 2 Tablet(s) PO QHS 04/24/2016 04/18/2017 Inactive furosemide 20 mg tablet RxNorm: 845649 1 Tablet(s) PO daily as needed for swelling 04/24/2016 06/17/2016 Inactive labetalol 100 mg tablet RxNorm: 116304 1 Tablet(s) PO BID 04/24/2016 04/18/2017 Inactive amlodipine 5 mg tablet RxNorm: 259759 Tablet(s) TAKE 1 TABLET BY MOUTH TWICE DAILY 04/24/2016 04/18/2017 Inactive Transferring from [facility] Xanax 0.25 mg tablet RxNorm: 259560 1 Tablet(s) PO TID PRN as needed 02/25/2016 03/25/2016 Inactive NEED TO GIVE #90 WITH NEXT REFILL Xanax 0.25 mg tablet RxNorm: 722375 1 Tablet(s) PO BID PRN as needed 02/19/2016 02/24/2016 Inactive [SAVINGS FOR UNINSURED PATIENTS -- BIN:343182, PCN: ASPROD1, Group: AME08, ID# [id number], Process claim through Instabeat, for questions: . THIS IS NOT INSURANCE.] Cymbalta 60 mg capsule,delayed release RxNorm: 916043 1 Capsule(s) PO daily 01/28/2016 04/23/2016 Inactive ropinirole 1 mg tablet RxNorm: 263056 1 Tablet(s) PO BID TAKE 1 TABLET BY MOUTH DAILY EVERY NIGHT 01/28/2016 04/23/2016 Inactive Generic For:REQUIP 1 MG TABLET tramadol 50 mg tablet RxNorm: 823498 Tablet(s) TAKE 2 TABLETS BY MOUTH TWICE DAILY 01/16/2016 07/13/2016 Inactive Generic For:ULTRAM 50 MG TABLET N O T I C E Last quantity doesn't match original quantity(Response to an electronic controlled substance refill request - RxReferenceNumber: [id number]) omeprazole 20 mg capsule,delayed release RxNorm: 239416 1 Tablet(s) PO daily 1 Capsule(s) PO daily 12/11/2015 04/23/2016 Inactive pravastatin 10 mg tablet RxNorm: 346317 1 Tablet(s) PO QHS TAKE 1 TABLET BY MOUTH EVERY NIGHT 11/28/2015 01/27/2016 Inactive Generic For:PRAVACHOL 10 MG TABLET furosemide 20 mg tablet RxNorm: 571399 1 Tablet(s) PO daily as needed for swelling 11/12/2015 04/23/2016 Inactive pravastatin 10 mg tablet RxNorm: 246308 1 Tablet(s) PO QHS TAKE 1 TABLET BY MOUTH EVERY NIGHT 11/07/2015 11/27/2015 Inactive Generic For:PRAVACHOL 10 MG TABLET Xanax 0.25 mg tablet RxNorm: 485643 1 Tablet(s) PO BID PRN as needed 10/28/2015 01/25/2016 Inactive [SAVINGS FOR UNINSURED PATIENTS -- BIN:408187, PCN: ASPROD1, Group: AME08, ID# [id number], Process claim through Inst[employer]at, for questions: . THIS IS NOT INSURANCE.] Viberzi 75 mg tablet RxNorm: 5901064 1 Tablet(s) PO BID 10/10/2015 10/10/2015 Inactive doxycycline hyclate 100 mg tablet RxNorm: 828999 1 Tablet(s) PO BID 10/10/2015 10/23/2015 Inactive Vitamins B Complex capsule RxNorm: 1 Capsule(s) PO daily 09/12/2015 No Stop Date Active Vitamin D3 1,000 unit tablet RxNorm: 290929 3-4 Tablet(s) PO daily 09/12/2015 No Stop Date Active Augmentin 500 mg-125 mg tablet RxNorm: 513158 1 Tablet(s) PO BID 07/09/2015 2015 Inactive probiotic one bid x 7 days Augmentin 500 mg-125 mg tablet RxNorm: 706625 1 Tablet(s) PO BID 07/09/2015 07/08/2015 Inactive Xanax 0.25 mg tablet RxNorm: 579018 1 Tablet(s) PO BID PRN as needed 07/01/2015 09/28/2015 Inactive [SAVINGS FOR UNINSURED PATIENTS -- BIN:700802, PCN: ASPROD1, Group: AME, ID# [id number], Process claim through Instabeat, for questions: . THIS IS NOT INSURANCE.] sertraline 100 mg tablet RxNorm: 729446 TAKE 1 TABLET BY MOUTH TWICE DAILY 07/01/2015 01/27/2016 Inactive Generic For:*ZOLOFT 100MG TABLET N O T I C E Last quantity doesn't match original quantity amlodipine 5 mg tablet RxNorm: 171641 TAKE 1 TABLET BY MOUTH TWICE DAILY 06/26/2015 04/23/2016 Inactive Generic For:NORVASC 5 MG TABLET N O T I C E Last quantity doesn't match original quantity amlodipine 5 mg tablet RxNorm: 260423 Tablet(s) 1 Tablet(s) PO BID 06/25/2015 06/25/2015 Inactive ropinirole 1 mg tablet RxNorm: 662154 TAKE 1 TABLET BY MOUTH DAILY EVERY NIGHT 05/22/2015 01/27/2016 Inactive Generic For:REQUIP 1 MG TABLET ropinirole 1 mg tablet RxNorm: 441132 Tablet(s) 1 Tablet(s) PO QPM 05/22/2015 05/21/2015 Inactive pravastatin 10 mg tablet RxNorm: 017787 TAKE 1 TABLET BY MOUTH EVERY NIGHT 05/14/2015 11/06/2015 Inactive Generic For:PRAVACHOL 10 MG TABLET tramadol 50 mg tablet RxNorm: 878231 2 Tablet(s) PO BID 04/25/2015 01/18/2016 Inactive labetalol 100 mg tablet RxNorm: 654337 1 Tablet(s) PO BID 04/09/2015 04/23/2016 Inactive omeprazole 20 mg capsule,delayed release RxNorm: 664495 1 Tablet(s) PO daily 1 Capsule(s) PO daily 03/20/2015 12/10/2015 Inactive Carafate 1 gram tablet RxNorm: 431527 Tablet(s) PO UD 4 times daily x 1 week and then PRN 02/27/2015 02/21/2016 Inactive Xanax 0.25 mg tablet RxNorm: 278205 1 Tablet(s) PO BID PRN as needed 02/08/2015 06/06/2015 Inactive [SAVINGS FOR UNINSURED PATIENTS -- BIN:425496, PCN: ASPROD1, Group: AME08, ID# [id number], Process claim through [employer], for questions: . THIS IS NOT INSURANCE.] furosemide 20 mg tablet RxNorm: 002116 1 Tablet(s) PO daily as needed for swelling 10/25/2014 02/21/2015 Inactive ok to fill by Dr. Franklin 10-25-14 Xanax 0.25 mg tablet RxNorm: 569406 1 Tablet(s) PO BID PRN as needed 09/25/2014 01/21/2015 Inactive [SAVINGS FOR UNINSURED PATIENTS -- BIN:263809, PCN: ASPROD1, Group: AME08, ID# [id number], Process claim through Inst[employer], for questions: . THIS IS NOT INSURANCE.] pravastatin 10 mg tablet RxNorm: 080322 TAKE 1 TABLET BY MOUTH EVERY NIGHT 09/06/2014 04/03/2015 Inactive Generic For:PRAVACHOL 10 MG TABLET tramadol 50 mg tablet RxNorm: 988726 TAKE 2 TABLETS BY MOUTH TWICE DAILY 08/02/2014 01/15/2016 Inactive Generic For:ULTRAM 50 MG TABLET N O T I C E Last quantity doesn't match original quantity(Response to an electronic controlled substance refill request - RxReferenceNumber: [id number]) tramadol 50 mg tablet RxNorm: 263899 2 Tablet(s) PO BID 08/01/2014 08/02/2014 Inactive acyclovir 400 mg tablet RxNorm: 875474 2 Tablet(s) PO QID 07/16/2014 07/25/2014 Inactive sertraline 100 mg tablet RxNorm: 883079 1 Tablet(s) PO BID 1 Tablet(s) PO BID 06/13/2014 12/09/2014 Inactive sertraline 100 mg tablet RxNorm: 624025 1 Tablet(s) PO BID 06/13/2014 06/12/2014 Inactive magnesium oxide 400 mg tablet RxNorm: 666839 1 Tablet(s) PO daily 05/25/2014 2014 Inactive ropinirole 1 mg tablet RxNorm: 045614 1 Tablet(s) PO QPM 05/25/2014 05/19/2015 Inactive amlodipine 5 mg tablet RxNorm: 743769 1 Tablet(s) PO BID 05/25/2014 05/19/2015 Inactive prednisone 10 mg tablets in a dose pack RxNorm: 922200 1 Tablet(s) PO UD 04/06/2014 04/10/2014 Inactive 6-5-4-3-2-1 Xanax 0.25 mg tablet RxNorm: 229802 1 Tablet(s) PO BID PRN as needed 04/04/2014 07/02/2014 Inactive [SAVINGS FOR UNINSURED PATIENTS -- BIN:789981, PCN: ASPROD1, Group: AME08, ID# [id number], Process claim through [employer]Imp[employer], for questions: . THIS IS NOT INSURANCE.] prednisone 20 mg tablet RxNorm: 399420 3 Tablet(s) PO daily 04/02/2014 04/05/2014 Inactive [SAVINGS FOR UNINSURED PATIENTS -- BIN:512175, PCN: ASPROD1, Group: AME08, ID# [id number], Process claim through MedImpact, for questions: . THIS IS NOT INSURANCE.] cefdinir 300 mg capsule RxNorm: 857869 1 Capsule(s) PO BID 04/02/2014 04/11/2014 Inactive [SAVINGS FOR UNINSURED PATIENTS -- BIN:002094, PCN: ASPROD1, Group: AME08, ID# [id number], Process claim through MedImpact, for questions: . THIS IS NOT INSURANCE.] Kenalog 40 mg/mL suspension for injection RxNorm: 1043496 Milliliter(s) Inj 04/02/2014 04/02/2014 Inactive [SAVINGS FOR UNINSURED PATIENTS -- BIN:765169, PCN: ASPROD1, Group: AME08, ID# [id number], Process claim through MedImpact, for questions: . THIS IS NOT INSURANCE.] ceftriaxone 500 mg solution for injection RxNorm: 558653 Inj 04/02/2014 04/02/2014 Inactive [SAVINGS FOR UNINSURED PATIENTS -- BIN:182918, PCN: ASPROD1, Group: AME08, ID# [id number], Process claim through MedImpact, for questions: . THIS IS NOT INSURANCE.] albuterol sulfate 2.5 mg/0.5 mL solution for nebulization RxNorm: 446224 1 treatment INH QID and as needed for dyspnea 04/02/2014 05/31/2014 Inactive [SAVINGS FOR UNINSURED PATIENTS -- BIN:899520, PCN: ASPROD1, Group: AME08, ID# [id number], Process claim through MedImpact, for questions: . THIS IS NOT INSURANCE.] azithromycin 500 mg tablet RxNorm: 828064 1 Tablet(s) PO daily 04/02/2014 04/06/2014 Inactive [SAVINGS FOR UNINSURED PATIENTS -- BIN:796096, PCN: ASPROD1, Group: AME08, ID# [id number], Process claim through MedImpact, for questions: . THIS IS NOT INSURANCE.] omeprazole 20 mg capsule,delayed release RxNorm: 947904 1 Tablet(s) PO daily 1 Capsule(s) PO daily 02/26/2014 06/25/2014 Inactive Xanax 0.25 mg tablet RxNorm: 022531 1 Tablet(s) PO BID PRN as needed 02/01/2014 04/03/2014 Inactive [SAVINGS FOR UNINSURED PATIENTS -- BIN:113273, PCN: ASPROD1, Group: AME08, ID# [id number], Process claim through MedImpact, for questions: . THIS IS NOT INSURANCE.] Xanax 0.25 mg tablet RxNorm: 063360 1 Tablet(s) PO HS PRN as needed 01/04/2014 01/31/2014 Inactive [SAVINGS FOR UNINSURED PATIENTS -- BIN:448049, PCN: ASPROD1, Group: AME08, ID# [id number], Process claim through MedImpact, for questions: . THIS IS NOT INSURANCE.] pravastatin 10 mg tablet RxNorm: 902411 1 Tablet(s) PO QHS 12/21/2013 12/20/2013 Inactive pravastatin 10 mg tablet RxNorm: 098925 1 Tablet(s) PO QHS 12/21/2013 07/18/2014 Inactive [SAVINGS FOR UNINSURED PATIENTS -- BIN:419992, PCN: ASPROD1, Group: AME08, ID# [id number], Process claim through MedImpact, for questions: . THIS IS NOT INSURANCE.] Hytrin 1 mg tablet RxNorm: 760438 1 Tablet(s) PO BID 12/21/2013 04/08/2015 Inactive [SAVINGS FOR UNINSURED PATIENTS -- BIN:722156, PCN: ASPROD1, Group: AME08, ID# [id number], Process claim through MedImpact, for questions: . THIS IS NOT INSURANCE.] Hytrin 1 mg tablet RxNorm: 726729 1 Tablet(s) PO daily 12/18/2013 12/20/2013 Inactive [SAVINGS FOR UNINSURED PATIENTS -- BIN:014825, PCN: ASPROD1, Group: AME08, ID# [id number], Process claim through MedImpact, for questions: . THIS IS NOT INSURANCE.] sertraline 100 mg tablet RxNorm: 896259 1 Tablet(s) PO QHS 12/14/2013 12/08/2014 Inactive [SAVINGS FOR UNINSURED PATIENTS -- BIN:653305, PCN: ASPROD1, Group: AME08, ID# [id number], Process claim through MedImpact, for questions: . THIS IS NOT INSURANCE.] Xanax 0.25 mg tablet RxNorm: 308881 1 Tablet(s) PO HS PRN as needed 12/13/2013 01/03/2014 Inactive [SAVINGS FOR UNINSURED PATIENTS -- BIN:158298, PCN: ASPROD1, Group: BORIS, ID# [id number], Process claim through Instabeat, for questions: . THIS IS NOT INSURANCE.] tramadol 50 mg tablet RxNorm: 462884 2 Tablet(s) PO BID 11/08/2013 04/24/2015 Inactive Xanax 0.25 mg tablet RxNorm: 046365 1 Tablet(s) PO HS PRN as needed 10/19/2013 10/18/2013 Inactive Xanax 0.25 mg tablet RxNorm: 494001 1 Tablet(s) PO HS PRN as needed 10/19/2013 12/12/2013 Inactive Carafate 1 gram tablet RxNorm: 202748 Tablet(s) PO dissolve 1 tab QID x 1 week, then TID x 1 week, then BID x 1 week 09/07/2013 02/26/2015 Inactive omeprazole 20 mg capsule,delayed release RxNorm: 531090 1 Capsule(s) PO daily 09/07/2013 09/06/2013 Inactive omeprazole 20 mg capsule,delayed release RxNorm: 475610 1 Capsule(s) PO daily 09/07/2013 02/26/2014 Inactive prednisone 10 mg tablet RxNorm: 936688 1 Tablet(s) PO 08/25/2013 12/13/2013 Inactive prednisone taper Zithromax Z-Bon 250 mg tablet RxNorm: 050583 Tablet(s) PO as directed 08/25/2013 12/13/2013 Inactive Zithromax Z-Bon 250 mg tablet RxNorm: 482080 Tablet(s) PO as directed 08/04/2013 08/24/2013 Inactive Xanax 0.25 mg tablet RxNorm: 103483 1 Tablet(s) PO HS PRN 08/01/2013 10/18/2013 Inactive Kenalog 40 mg/mL suspension for injection RxNorm: 4292303 Milliliter(s) Inj 08/01/2013 08/01/2013 Inactive tramadol 50 mg tablet RxNorm: 679109 2 Tablet(s) PO BID 05/02/2013 11/07/2013 Inactive carvedilol 25 mg tablet RxNorm: 095028 1 Tablet(s) PO BID 05/02/2013 12/13/2013 Inactive magnesium oxide 400 mg tablet RxNorm: 227504 1 Tablet(s) PO daily 05/02/2013 04/26/2014 Inactive furosemide 20 mg tablet RxNorm: 379766 2 Tablet(s) PO daily 05/02/2013 2014 Inactive amlodipine 5 mg tablet RxNorm: 180368 1 Tablet(s) PO BID 05/02/2013 04/26/2014 Inactive sertraline 100 mg tablet RxNorm: 461306 1 Tablet(s) PO BID 05/02/2013 12/13/2013 Inactive ropinirole 1 mg tablet RxNorm: 358850 1 Tablet(s) PO QPM 05/02/2013 04/26/2014 Inactive pantoprazole 40 mg tablet,delayed release RxNorm: 875478 1 Tablet(s) PO daily 05/02/2013 2014 Inactive gabapentin 600 mg tablet RxNorm: 891727 1 Tablet(s) PO BID 05/02/2013 2014 Inactive aspirin 81 mg tablet,delayed release RxNorm: 973062 1 Tablet(s) PO daily No Start Date Active ferrous fumarate 325 mg (106 mg iron) tablet RxNorm: 850365 1 Tablet(s) PO daily No Start Date 2014 Inactive amlodipine 5 mg tablet RxNorm: 529364 1 Tablet(s) PO BID No Start Date 05/01/2013 Inactive Vitamin B-12 2,500 mcg sublingual tablet RxNorm: 786192 1 Tablet(s) SL daily No Start Date 2014 Inactive Zithromax Z-Bon 250 mg tablet RxNorm: 866006 Tablet(s) PO as directed No Start Date 08/03/2013 Inactive sertraline 100 mg tablet RxNorm: 801852 1 Tablet(s) PO BID No Start Date 05/01/2013 Inactive Hytrin 1 mg tablet RxNorm: 004670 1 Tablet(s) PO BID No Start Date 12/17/2013 Inactive potassium chloride ER 10 mEq capsule,extended release RxNorm: 603676 1 Capsule(s) PO QDAY PRN No Start Date 06/17/2016 Inactive Xanax 0.25 mg tablet RxNorm: 892086 1 Tablet(s) PO HS PRN No Start Date 07/31/2013 Inactive gabapentin 600 mg tablet RxNorm: 850545 1 Tablet(s) PO BID No Start Date 05/01/2013 Inactive ropinirole 1 mg tablet RxNorm: 377690 1 Tablet(s) PO QPM No Start Date 05/01/2013 Inactive Vitamin D3 1,000 unit tablet RxNorm: 483917 2 Tablet(s) PO daily No Start Date 09/11/2015 Inactive furosemide 20 mg tablet RxNorm: 373578 1 Tablet(s) PO BID No Start Date 05/01/2013 Inactive tramadol 50 mg tablet RxNorm: 066196 2 Tablet(s) PO BID No Start Date 05/01/2013 Inactive Carafate 1 gram tablet RxNorm: 339643 Tablet(s) PO dissolve 1 tab QID x 1 week, then TID x 1 week, then BID x 1 week No Start Date 09/06/2013 Inactive pantoprazole 40 mg tablet,delayed release RxNorm: 548608 1 Tablet(s) PO daily No Start Date 05/01/2013 Inactive montelukast 10 mg tablet RxNorm: 206506 1 Tablet(s) PO QHS No Start Date 04/23/2016 Inactive magnesium oxide 400 mg tablet RxNorm: 144215 1 Tablet(s) PO daily No Start Date 05/01/2013 Inactive prednisone 10 mg tablet RxNorm: 907031 1 Tablet(s) PO No Start Date 08/24/2013 Inactive prednisone taper carvedilol 25 mg tablet RxNorm: 117973 1 Tablet(s) PO BID No Start Date 05/01/2013 Inactive baclofen 10 mg tablet RxNorm: 691463 2 Tablet(s) PO daily No Start Date 12/13/2013 Inactive Vitamin B Complex capsule RxNorm: 1 Capsule(s) PO daily No Start Date 2014 Inactive Medication Administered Medication Codes Instructions Start Date Status Kenalog 40 mg/mL suspension for injection RxNorm: 0324102 Milliliter 09/15/2016 No longer Active Kenalog 40 mg/mL suspension for injection RxNorm: 2389883 Milliliter 04/02/2014 No longer Active ceftriaxone 500 mg solution for injection RxNorm: 400939 04/02/2014 No longer Active Kenalog 40 mg/mL suspension for injection RxNorm: 3782309 Milliliter 08/01/2013 No longer Active Immunizations Vaccine Codes Date Status Influenza CVX: 141 01/08/2016 completed Pneumococcal (Adult) CVX: 133 01/08/2016 completed Influenza CVX: 141 01/26/2013 completed Pneumococcal CVX: 33 02/26/2012 completed Tetanus, Diptheria, Pertussis CVX: 113 02/26/2012 completed Tetanus/Diptheria CVX: 113 02/26/2012 completed Assessments Condition Codes Effective Dates Chronic kidney disease, stage 3 (moderate) ICD-10: N18.3 ICD-9: 585.3 10/26/2017 Essential (primary) hypertension ICD-10: I10 ICD-9: 401.1 10/26/2017 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 ICD-9: 703.8 [...] Reason For Visit Effective Dates Notes edema 10/06/2017 edema 09/27/2017 blood pressure followup [...] Code Item Item Code Result Date Mayda 107788 MAYDA (MORTEZA) SCREEN NONE DETECTED 06/25/2017 Ra Factor Qwq937 RA FACTOR <10 IU/ml 06/24/2017 D-Dimer D-DIMER 675 ng/mL 06/09/2017 D-Dimer [id number] COMMENT 06/09/2017 Tsh Ord6 TSH (3rd IS) [...] 86.9 fl 06/01/2017 Cbc With Differential Ord2 [place]% 5.8 % 06/01/2017 Cbc With Differential Ord2 [...] 2.17 K/ul 06/01/2017 Cbc With Differential Ord2 [place] ABS# 0.3 K/ul 06/01/2017 Cbc With Differential Ord2 [place] ABS# 0.1 K/ul 06/01/2017 Cbc With Differential Ord2 Baso ABS# 0.1 K/ul 06/01/2017 Comp Metabolic Pok785 NA 137 mEq/L 06/01/2017 Comp Metabolic Hdf001 K 3.7 mEq/L 06/01/2017 Comp Metabolic Met077 CL 100 mEq/L 06/01/2017 Comp Metabolic Bhw562 CO2 28.0 mEq/L 06/01/2017 Comp Metabolic Fxl019 ANION GAP 13 06/01/2017 Comp Metabolic Fqm863 GLUCOSE 94 mg/dL 06/01/2017 Comp Metabolic Vuz163 Creat 1.3 mg/dL 06/01/2017 Comp Metabolic Cqh440 eGFR 45 ml/min/1.73m2 06/01/2017 Comp Metabolic Yfc010 BUN 12 mg/dL 06/01/2017 Comp Metabolic Lcy150 B/C Ratio 9.6 Ratio 06/01/2017 Comp Metabolic Vvr712 CALCIUM 9.5 mg/dL 06/01/2017 Comp Metabolic Gjf730 ALK PHOS 77 U/L 06/01/2017 Comp Metabolic Akc417 AST(SGOT) 17 U/L 06/01/2017 Comp Metabolic Pez785 ALT(SGPT) 15 U/L 06/01/2017 Comp Metabolic Xbe650 BILI T 0.5 mg/dL 06/01/2017 Comp Metabolic Gkb742 ALBUMIN 4.4 g/dL 06/01/2017 Comp Metabolic Aqn248 TPRO 7.0 g/dL 06/01/2017 Comp Metabolic Zxr078 GLOB 2.6 g/dL 06/01/2017 Comp Metabolic Ber794 A/G Ratio 1.7 Ratio 06/01/2017 Comp Metabolic Iex646 Osmo 273 mOsmo 06/01/2017 Mayda 444108 MAYDA (MORTEZA) SCREEN NONE DETECTED 06/22/2016 C-Reactive Protein Qnt Crqnt CRP 0.3 mg/dl 06/19/2016 Sed Rate Ord21 ESR 11 mm/hr 06/19/2016 Ra Factor Phw904 RA FACTOR <10 IU/ml 06/19/2016 Sed Rate Ord21 ESR 14 mm/hr 02/25/2016 C-Reactive Protein Qnt Crqnt CRP 0.3 mg/dl 02/25/2016 Comp Metabolic Wfp085 NA 136 mEq/L 02/25/2016 Comp Metabolic Frc825 K 3.9 mEq/L 02/25/2016 Comp Metabolic Rmx119 CL 103 mEq/L 02/25/2016 Comp Metabolic Slz101 CO2 27.0 mEq/L 02/25/2016 Comp Metabolic Ahx758 ANION GAP 10 02/25/2016 Comp Metabolic Xed839 GLUCOSE 82 mg/dL 02/25/2016 Comp Metabolic Kcg984 Creat 1.3 mg/dL 02/25/2016 Comp Metabolic Fkv485 eGFR 45 ml/min/1.73m2 02/25/2016 Comp Metabolic Lyz078 BUN 13 mg/dL 02/25/2016 Comp Metabolic Uxw622 B/C Ratio 10.3 Ratio 02/25/2016 Comp Metabolic Ick140 CALCIUM 9.5 mg/dL 02/25/2016 Comp Metabolic Lcs070 ALK PHOS 70 U/L 02/25/2016 Comp Metabolic Heq412 AST(SGOT) 17 U/L 02/25/2016 Comp Metabolic Tme920 ALT(SGPT) 13 U/L 02/25/2016 Comp Metabolic Gpw073 BILI T 0.4 mg/dL 02/25/2016 Comp Metabolic Jww767 ALBUMIN 4.2 g/dL 02/25/2016 Comp Metabolic Hmr702 TPRO 6.6 g/dL 02/25/2016 Comp Metabolic Amr616 GLOB 2.4 g/dL 02/25/2016 Comp Metabolic Ybe768 A/G Ratio 1.7 Ratio 02/25/2016 Comp Metabolic Umk837 Osmo 271 mOsmo 02/25/2016 Cbc With Differential [...] 29.1 pg 02/25/2016 Cbc With Differential Ord2 [place]% 6.8 % 02/25/2016 Cbc With Differential Ord2 [...] 1.62 K/ul 02/25/2016 Cbc With Differential Ord2 [place] ABS# 0.4 K/ul 02/25/2016 Cbc With Differential Ord2 [place] ABS# 0.1 K/ul 02/25/2016 Cbc With Differential Ord2 Baso ABS# 0.0 K/ul 02/25/2016 Tsh Ord6 hTSH II 1.63 uIU/mL 02/25/2016 [place] Spotted Fever Igg/Igm 278192 [place] SPOTTED FEVER IGM EIA . 09/17/2015 [place] Spotted Fever Igg/Igm 841677 RMSF, IGM 0.27 index 09/17/2015 [place] Spotted Fever Igg/Igm 247253 B[place] SPOTTED FEVER IGG EIA FLEX . 09/17/2015 [place] Spotted Fever Igg/Igm 174193 RMSF, IGG SCREEN-FLEX Negative 09/17/2015 Ehrlichia Chaffeensis Antibody Igm [id number] EHRLICHIA CHAFFEENSIS IGM < 1:16 09/16/2015 Ehrlichia Chaffeensis Antibody Igg 317681 EHRLICHIA CHAFFEENSIS IGG 1:256 09/16/2015 [place] Disease Total Antibodies With Western Blot Reflex 237318 B. BURGDORFERI, IGG/IGM 0.10 LI 09/14/2015 Lym[facility] Disease Total Antibodies With Western Blot Reflex [id number] 09/14/2015 Vitamin D 25 Oh Onn7857 VITAMIN D, 25 HYDROXY 59.60 ng/mL 09/13/2015 Sed Rate Ord21 ESR 10 mm/hr 09/12/2015 Comp Metabolic Qus894 NA 139 mEq/L 09/12/2015 Comp Metabolic Prw593 K 3.8 mEq/L 09/12/2015 Comp Metabolic Yit395 CL 103 mEq/L 09/12/2015 Comp Metabolic Zxm210 CO2 27.0 mEq/L 09/12/2015 Comp Metabolic Ngq004 ANION GAP 13 09/12/2015 Comp Metabolic Tya457 GLUCOSE 91 mg/dL 09/12/2015 Comp Metabolic Kkf329 Creat 1.2 mg/dL 09/12/2015 Comp Metabolic Lon708 eGFR 47 ml/min/1.73m2 09/12/2015 Comp Metabolic Ykf930 BUN 20 mg/dL 09/12/2015 Comp Metabolic Rkn981 B/C Ratio 16.3 Ratio 09/12/2015 Comp Metabolic Moq494 CALCIUM 9.3 mg/dL 09/12/2015 Comp Metabolic Yvg209 ALK PHOS 55 U/L 09/12/2015 Comp Metabolic Ejk402 AST(SGOT) 19 U/L 09/12/2015 Comp Metabolic Nan123 ALT(SGPT) 14 U/L 09/12/2015 Comp Metabolic Hcp133 BILI T 0.6 mg/dL 09/12/2015 Comp Metabolic Igl963 ALBUMIN 4.3 g/dL 09/12/2015 Comp Metabolic Sdn953 TPRO 6.8 g/dL 09/12/2015 Comp Metabolic Bpr975 GLOB 2.5 g/dL 09/12/2015 Comp Metabolic Dvs893 A/G Ratio 1.8 Ratio 09/12/2015 Comp Metabolic Cet044 Osmo 280 mOsmo 09/12/2015 B12 Fha405 B12 >1500.00 pg/ml 09/12/2015 Cbc With Differential [...] 31.5 % 09/12/2015 Cbc With Differential Ord2 [place]% 5.9 % 09/12/2015 Cbc With Differential Ord2 MCH 28.9 pg 09/12/2015 Cbc With Differential Ord2 MCHC 33.1 pg 09/12/2015 Cbc With Differential Ord2 Eos% 1.2 % 09/12/2015 Cbc With Differential Ord2 Baso% 0.7 % 09/12/2015 Cbc With Differential Ord2 PLT 215 K/ul 09/12/2015 Cbc With Differential Ord2 Neut ABS# 2.56 K/ul 09/12/2015 Cbc With Differential Ord2 RDW 13.4 % 09/12/2015 Cbc With Differential Ord2 Lymph ABS# 1.33 K/ul 09/12/2015 Cbc With Differential Ord2 [place] ABS# 0.3 K/ul 09/12/2015 Cbc With Differential Ord2 Eos ABS# 0.1 K/ul 09/12/2015 Cbc With Differential Ord2 Baso ABS# 0.0 K/ul 09/12/2015 Tsh Ord6 hTSH II 1.88 uIU/mL 09/12/2015 Review of Systems System Result Effective Dates Constitutional No recent illness 10/06/2017 Constitutional fatigue [...] clear 09/27/2017 None Full Exam - General 1995 Ears/Nose/Throat lips/teeth/gingiva Overall: benign lips 09/27/2017 None [...] retractions 06/01/2017 None Full Exam - General 1995 Respiratory respiratory effort/rhythm Overall: normal rate 06/01/2017 [...] Full Exam - General 1994 Neurologic coordination Nvmsjr-whec-pzucgo testing - left: dysmetria 05/11/2017 None Full Exam - General 1994 Neurologic coordination Xdipfq-bmzl-auhkly testing - right: dysmetria 05/11/2017 None Full [...] Full Exam - General 1994 Neurologic coordination Eijwke-lype-unwwdc testing - left: dysmetria 04/20/2016 None Full Exam - General 1994 Neurologic coordination Ujpoiw-afbj-wxptxv testing - right: dysmetria 04/20/2016 None Full [...] Full Exam - General 1994 Neurologic coordination Peskkd-haiy-yxdeca testing - left: dysmetria 02/25/2016 None Full Exam - General 1994 Neurologic coordination Mzhjsn-gvtk-ttoumc testing - right: dysmetria 02/25/2016 None Full [...] Full Exam - General 1994 Neurologic coordination Aamhul-lips-picpjc testing - left: dysmetria 01/28/2016 None Full Exam - General 1994 Neurologic coordination Qksprg-qoqy-emyujc testing - right: dysmetria 01/28/2016 None Full [...] palp - head/face Lesion: excoriation 07/16/2014 right latter day, redness right eyelid Full Exam - Dermatology [...] Procedure Codes Date THER/PROPH/DIAG INJ SC/IM CPT-4: 32913 09/15/2016 TRIAMCINOLONE ACET INJ NOS CPT-4: J3301 09/15/2016 ADMIN INFLUENZA VIRUS VAC CPT-4: G0008 01/08/2016 ADMIN PNEUMOCOCCAL VACCINE SNOMED CT: 07184854 CPT-4: G0009 01/08/2016 PNEUMOCOCCAL VACC 13 RIVERA IM Formatting Model/CDA Sections, Assigned to/Aliya Muñoz SNOMED CT: 52364648 CPT-4: 82091Yuvaxst 01/08/2016 FLU VACC 4 RIVERA 3 YRS PLUS IM SNOMED CT: 23178163 CPT-4: 17909 01/08/2016 THER/PROPH/DIAG INJ SC/IM CPT-4: 45396 04/02/2014 TRIAMCINOLONE ACET INJ NOS CPT-4: J3301 04/02/2014 ROCEPHIN, PER 250 MG CPT- 4: J0696 04/02/2014 TRIAMCINOLONE ACET INJ NOS CPT-4: J3301 08/01/2013 THER/PROPH/DIAG INJ SC/IM CPT-4: 91045 08/01/2013 Vital Signs Date Vital 10/06/2017 Blood Pressure 1: 118/78 Code: 8480-6 BMI: 34.3 Code: 91414-7 Heart Rate 1: 75 bpm Height: 5'5" SpO2: 98% Weight: 206 lbs 09/27/2017 Blood Pressure 1: 136/88 Code: 8480-6 BMI: 35.4 Code: 71687-9 Heart Rate 1: 86 bpm Height: 5'5" SpO2: 98% Weight: 213 lbs 07/23/2017 Blood Pressure 1: 106/58 Code: 8480-6 BMI: 34.8 Code: 71935-9 Heart Rate 1: 70 bpm Height: 5'5" SpO2: 96% Weight: 209 lbs 06/01/2017 Blood Pressure 1: 150/96 Code: 8480-6 BMI: 34.4 Code: 83446-4 Heart Rate 1: 82 bpm Height: 5'5" SpO2: 99% Weight: 207 lbs 05/11/2017 Blood Pressure 1: 144/90 Code: 8480-6 BMI: 34.6 Code: 45398-7 Heart Rate 1: 76 bpm Height: 5'5" SpO2: 98% Weight: 208 lbs 10/30/2016 Blood Pressure 1: 172/104 Code: 8480-6 Blood Pressure 1: 158/98 Code: 8480-6 BMI: 34.7 Code: 58391-7 Heart Rate 1: 70 bpm Height: 5'5" SpO2: 97% Temperature: 36.2 (C) / 97.1 (F) Weight: 208 lbs 10 oz 04/20/2016 Blood Pressure 1: 144/86 Code: 8480-6 BMI: 34.3 Code: 46986-0 Heart Rate 1: 68 bpm Height: 5'5" SpO2: 97% Weight: 206 lbs 02/25/2016 Blood Pressure 1: 122/82 Code: 8480-6 BMI: 34.4 Code: 69735-1 Heart Rate 1: 86 bpm Height: 5'5" SpO2: 94% Weight: 207 lbs 01/28/2016 Blood Pressure 1: 128/86 Code: 8480-6 BMI: 33.3 Code: 13433-7 Heart Rate 1: 86 bpm Height: 5'5" SpO2: 96% Weight: 200 lbs 11/14/2015 Blood Pressure 1: 138/88 Code: 8480-6 Blood Pressure 1: 140/90 Code: 8480-6 BMI: 33.3 Code: 60286-7 Heart Rate 1: 98 bpm Height: 5'5" SpO2: 97% Weight: 200 lbs 10/10/2015 Blood Pressure 1: 132/80 Code: 8480-6 BMI: 33.3 Code: 05269-8 Heart Rate 1: 74 bpm Height: 5'5" SpO2: 96% Weight: 200 lbs 09/12/2015 Blood Pressure 1: 148/90 Code: 8480-6 BMI: 32.9 Code: 08619-6 Heart Rate 1: 94 bpm Height: 5'5" SpO2: 97% Weight: 198 lbs 04/09/2015 Blood Pressure 1: 130/84 Code: 8480-6 Blood Pressure 1: 160/82 Code: 8480-6 BMI: 32.4 Code: 57249-7 Heart Rate 1: 74 bpm Height: 5'5" SpO2: 95% Weight: 195 lbs 10/05/2014 Blood Pressure 1: 140/80 Code: 8480-6 BMI: 30.5 Code: 60794-3 Heart Rate 1: 79 bpm Height: 5'5" SpO2: 98% Weight: 183 lbs 09/07/2014 Blood Pressure 1: 142/96 Code: 8480-6 BMI: 32.1 Code: 57993-3 Heart Rate 1: 72 bpm Height: 5'5" SpO2: 98% Temperature: 36.5 (C) / 97.7 (F) Weight: 193 lbs 07/16/2014 Blood Pressure 1: 138/82 Code: 8480-6 BMI: 31.8 Code: 25352-1 Heart Rate 1: 76 bpm Height: 5'5" Weight: 191 lbs 04/02/2014 Blood Pressure 1: 148/90 Code: 8480-6 BMI: 33.8 Code: 90825-1 Heart Rate 1: 68 bpm Height: 5'5" Temperature: 36.9 (C) / 98.4 (F) Weight: 203 lbs 12/14/2013 Blood Pressure 1: 140/88 Code: 8480-6 BMI: 35.3 Code: 32671-7 Heart Rate 1: 91 bpm Height: 5'5" SpO2: 97% Weight: 212 lbs 08/01/2013 Blood Pressure 1: 126/68 Code: 8480-6 BMI: 35.1 Code: 29715-1 Heart Rate 1: 76 bpm Height: 5'5" Temperature: 36.7 (C) / 98.1 (F) Weight: 211 lbs 05/02/2013 Blood Pressure 1: 118/86 Code: 8480-6 BMI: 34.9 Code: 81909-5 Heart Rate 1: 76 bpm Height: 5'5" Weight: 209 lbs 8 oz 04/18/2013 Blood Pressure 1: 118/60 Code: 8480-6 BMI: 35.3 Code: 39298-0 Heart Rate 1: 68 bpm Height: 5'5" Weight: 212 lbs Functional Status No Functional Status data History of Present Illness Symptom Name Status Result Effective Date Notes edema Quality acute 10/06/2017 None edema Onset [...] data Encounters Encounter Performer Location Codes Date 99203 EST. PATIENT, LEVEL III Diagnosis: Nail dystrophy[ICD10: L60.3] Diagnosis: Localized edema[ICD10: R60.0] Marilyn Lao MD, [facility] CPT-4: 31496 10/06/2017 ([id number]) 03954 EST. PATIENT, LEVEL IV Diagnosis: Essential (primary) hypertension[ICD10: I10] Diagnosis: Localized edema[ICD10: R60.0] Marilyn Lao MD, [facility] CPT-4: 34884 09/27/2017 ([id number]) 57126 EST. PATIENT, LEVEL IV Diagnosis: Generalized anxiety disorder[ICD10: F41.1] Diagnosis: Essential (primary) hypertension[ICD10: I10] Diagnosis: Chronic pain syndrome[ICD10: G89.4] Noa Lao MD, [facility] CPT-4: 12830 07/23/2017 ([id number]) 40426 EST. PATIENT, LEVEL IV Diagnosis: Essential (primary) hypertension[ICD10: I10] Diagnosis: Chest pain, unspecified[ICD10: R07.9] Diagnosis: Chronic kidney disease, stage 3 (moderate)[ICD10: N18.3] Noa Lao MD, [facility] CPT-4: 23380 06/01/2017 01302 EST. PATIENT, LEVEL IV Diagnosis: Gastro-esophageal reflux disease without esophagitis[ICD10: K21.9] Anais Lao MD, [facility] CPT-4: 76221 05/11/2017 ([id number]) 81587 EST. PATIENT, LEVEL III Diagnosis: Essential (primary) hypertension[ICD10: I10] Diagnosis: Contusion of right lower leg, initial encounter[ICD10: S80.11XA] Noa Lao MD, [facility] CPT-4: 45538 10/30/2016 ([id number]) 89716 EST. PATIENT, LEVEL IV Diagnosis: Essential (primary) hypertension[ICD10: I10] Diagnosis: Generalized anxiety disorder[ICD10: F41.1] Marilyn Lao MD, [facility] CPT-4: 44797 04/20/2016 [id number]) 51986 EST. PATIENT, LEVEL IV Diagnosis: Essential (primary) hypertension[ICD10: I10] Diagnosis: Chronic kidney disease, stage 3 (moderate)[ICD10: N18.3] Diagnosis: Generalized anxiety disorder[ICD10: F41.1] Diagnosis: Major depressive disorder, recurrent, moderate[ICD10: F33.1] Diagnosis: Shortness of breath[ICD10: R06.02] Noa Lao MD, [facility] CPT- 4: 19989 02/25/2016 [id number]) 20056 EST. PATIENT, LEVEL IV Diagnosis: Generalized anxiety disorder[ICD10: F41.1] Diagnosis: Major depressive disorder, recurrent, moderate[ICD10: F33.1] Diagnosis: Essential (primary) hypertension[ICD10: I10] Diagnosis: Restless legs syndrome[ICD10: G25.81] Diagnosis: Myalgia[ICD10: M79.1] Noa Lao MD, [facility] CPT-4: 63568 01/28/[id number]) 84217 EST. PATIENT, LEVEL III Diagnosis: Essential (primary) hypertension[ICD10: I10] Diagnosis: Insomnia, unspecified[ICD10: G47.00] Noa Lao MD, [facility] CPT-4: 47506 11/14/2015 [id number]) 97608 EST. 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 PATIENT, LEVEL IV Diagnosis: Bitten or stung by nonvenomous insect and other nonvenomous arthropods, initial encounter[ICD10: W57.XXXA] Diagnosis: Other fatigue[ICD10: R53.83] Diagnosis: Vitamin D deficiency, unspecified[ICD10: E55.9] Diagnosis: Other vitamin B12 deficiency anemias[ICD10: D51.8] Diagnosis: Essential (primary) hypertension[ICD10: I10] Diagnosis: Iron deficiency[ICD10: E61.1] Noa Lao MD, [facility] CPT-4: 93348 09/12/2015 ([id number]) 75335 EST. PATIENT, LEVEL III Diagnosis: Essential (primary) hypertension[ICD10: I10] Diagnosis: Chronic kidney disease, stage 3 (moderate)[ICD10: N18.3] Noa Lao MD, [facility] CPT-4: 04971 04/09/2015 ([id number]) 34561 EST. PATIENT, LEVEL III Diagnosis: ESSENTIAL HYPERTENSION[ICD9: 401.9] Noa Lao MD, [facility] CPT-4: 87691 10/05/2014 ([id number]) 84617 EST. PATIENT, LEVEL IV Diagnosis: Easy bruising[ICD9: 782.9] Diagnosis: Iron deficiency anemia[ICD9: 280.9] Diagnosis: ESSENTIAL HYPERTENSION[ICD9: 401.9] Diagnosis: Chronic kidney disease, stage 3[ICD9: 585.3] Noa Lao MD, [facility] CPT-4: 21333 09/07/2014 ([id number]) 86743 EST. PATIENT, LEVEL III Diagnosis: Shingles[ICD9: 053.9] Marilyn Lao MD, [facility] CPT-4: 97483 07/16/2014 ([id number]) 48838 EST. PATIENT, LEVEL III Diagnosis: PNEUMONIA (CAP)[ICD9: 486] Diagnosis: COUGH[ICD9: 786.2] Marilyn Lao MD, [facility] CPT-4: 54460 04/02/2014 ([id number]) 06480 EST. PATIENT, LEVEL III Diagnosis: ESSENTIAL HYPERTENSION[ICD9: 401.9] Diagnosis: Rib pain on left side[ICD9: 786.50] Diagnosis: EDEMA[ICD9: 782.3] Noa Lao MD, [facility] CPT-4: 01313 12/14/2013 ([id number]) 82420 EST. PATIENT, LEVEL IV Diagnosis: ESOPHAGEAL REFLUX[ICD9: 530.81] Diagnosis: Urge incontinence[ICD9: 788.31] Diagnosis: Elbow pain, right[ICD9: 719.42] Diagnosis: Snoring[ICD9: 786.09] [facility] CPT-4: 51748 08/01/2013 ([id number]) 29650 EST. PATIENT, LEVEL IV Diagnosis: ESSENTIAL HYPERTENSION[SNOMED: 47520104] Diagnosis: EDEMA[ICD9: 782.3] Diagnosis: Chronic renal insufficiency, stage III (moderate)[ICD9: 585.3] Diagnosis: HYPERLIPIDEMIA[ICD9: 272.4] Marilyn Lao MD, [facility] CPT-4: 99574 05/02/2013 ([id number]) 54426 EST. PATIENT, LEVEL IV Diagnosis: ESSENTIAL HYPERTENSION[SNOMED: 07351831] Diagnosis: Restless leg[ICD9: 333.94] Marilyn Lao MD, [facility] CPT-4: 63168 04/18/2013 Plan of Care Planned Activity Notes Codes Status Date Patient Education: Patient Medication Summary Completed 10/26/2017 Care Plan: Comp Metabolic Cancelled 10/26/2017 Visit Plan: Tinea/Onychodystrophy - penlac prescribed, pt did not want to take medication by mouth for treatment. Edema - improved - continue current regimen. 10/06/2017 Appointment: Marilyn Lao WPtel: [address] [place], [place] [phone] (15 min) Moderate 10/06/2017 Patient Education: Patient [...] blood pressure readings at home. 09/27/2017 Appointment: TashiaMarilyn WPtel: [facility] (15 min) Moderate 09/27/2017 Patient Education: [...] 07/23/2017 Appointment: Noa Orlando WPtel: [phone] [phone] (15 min) Moderate 07/23/2017 Patient Education: [...] worsens 06/01/2017 Appointment: Noa Orlando WPtel: [phone] [phone] (30 min) Complex 06/01/2017 Patient Education: Patient Medication Summary Completed 06/01/2017 Care Plan: Referral Order SNOMED-CT : 995803400 Pending 06/01/2017 Visit Plan: Esophageal Reflux - the patient has been counseled against excessive intake of caffeine, spicy foods, peppermint, and cinnamon - all of which can exacerbate esophageal reflux. The patient is to take med ications as prescribed and call the office if the symptoms are not improving. 05/11/2017 Appointment: [facility] Arri[facility] [phone] [facility] (15 min) Moderate 05/11/2017 Patient Education: [...] Completed 09/15/2016 Appointment: Marilyn Lao WPtel: [phone] [facility] (15 min) Moderate 08/19/2016 Patient Education: [...] current medications. 04/20/2016 Appointment: [facility] [phone] [facility] [place] (30 min) Complex 04/20/2016 Patient Education: Patient Medication Summary Completed 04/20/2016 Patient Education: Obesity Completed 04/20/2016 Patient Education: Hypertension Completed 04/20/2016 Appointment: Noa Orlando WPtel: [phone] [phone] [place] (30 min) Complex 03/16/2016 Referral: [...] for follow up. Chronic renal disease-check labs Vijcnyc-ibucliqurz-jbhlvtvl with cymbalta-continue same dose for now -may take xanax TID PRN Multiple joint pain-check labs including inflammatory markers 02/25/2016 Appointment: No[facility] [phone] [phone] (30 min) Complex 02/25/2016 Patient Education: Patient Medication Summary Completed 02/25/2016 Patient Education: Obesity Completed 02/25/2016 Patient Education: Hypertension Completed 02/25/2016 Care Plan: Referral Order SNOMED-CT : 436349012 Pending 02/25/2016 Visit Plan: Anxiety/Depression - the [...] in blood pressure readings at home. Restless pyh-bdcqog-noajryjn requip to twice daily-monitor symptoms Myalgias-stop pravastatin 01/28/2016 Appointment: Noa Orlando [facility] [phone] [phone] (30 min) Complex 01/28/2016 Patient Education: Patient [...] Completed 10/10/2015 Appointment: [facility] [phone] [phone] (15 min) Moderate 10/08/2015 Visit Plan: Hypertension - well controlled - continue with current medications, continue with no added salt diet. Pt has been encouraged to exercise daily. The pt has been advised to call the office if there are any acute concerns about change in blood pressure readings at home. Iron deficiency- B12 deficiency-check labs Tick tvsq-padyxwp-ylxvo tick panel 09/12/2015 Appointment: Noa Orlando [facility]el[facility] [phone] [phone] (15 min) Moderate 09/12/2015 Patient Education: Patient [...] symptoms Iron deficiency anemia-stopped oral iron per cotton opener in March-recheck labs HTN-elevated today-monitor twice daily [...] Care Plan: COMPLETE CBC AUTOMATED LOINC : 93933-0 Ordered 09/07/2014 Visit Plan: Shingles - Herpes [...] Completed 07/16/2014 Appointment: Marilyn Lao [facility]el: [phone] [facility] Follow up 04/16/2014 Appointment: Sick 04/03/2014 Visit Plan: Pneumonia - Pt has been diagnosed with pneumonia by physical exam. Antibiotics started. The pt is aware of the diagnosis and the need for acute treatment of this illness. 04/02/2014 Patient Education: Patient Medication Summary Completed 04/02/2014 Appointment: [facility]ilyn [facility]o [facility]el: [phone] [facility] [facility] 12/27/2013 Patient Education: Patient Medication Summary Completed [...] further attempt to reduce peripheral edema. Night txisfz-xqewgdt-oixav labs 12/14/2013 Appointment: Follow up 12/14/2013 Patient Education: Patient Medication Summary Completed 12/14/2013 Patient Education: Hypertension Completed 12/14/2013 Appointment: Noa Orlando [facility]el[facility] [phone] [phone] [facility] 12/01/2013 Appointment: Marilyn Lao WPtel: [address] [place], [place] [phone] [facility] 11/30/2013 Visit Plan: Allergies - chronic [...] monitor symptoms. 08/01/2013 Appointment: Marilyn Lao WPtel: [facility] [place] [phone] Follow up 08/01/2013 Patient Education: Patient Medication [...] as able. 05/02/2013 Appointment: Marilyn Lao WPtel: [facility] Follow up 05/02/2013 Patient Education: Patient [...] orange juice. 04/18/2013 Appointment: Marilyn Lao WPtel: [facility] New Patient 04/18/2013 Patient Education: Patient Medication Summary Completed 04/18/2013 Patient Education: Hypertension Completed 04/18/2013 Referral: Ta Santacruz Referral Appointment Requested Referral: Ta Santacruz Referral Appointment Requested Instructions Comment . Allergies - chronic - recommended pt [...] help with her elbow pain, monitor symptoms. . Tinea/Onychodystrophy - penlac prescribed, pt did [...] at home. Iron deficiency-B12 deficiency-check labs Tick lehk-oyzykic-esyju tick panel Restless Leg syndrome - pt is to [...] if the symptoms are not improving. INCREASE REQUIP TO TWICE DAILY STOP ZOLOFT [...] in blood pressure readings at home. Restless wyo-ocdrwx-bkanxddl requip to twice daily-monitor symptoms Myalgias-stop pravastatin add LOSARTAN 50MG DAILY APPT WITH DR [...] chest pain or shortness of breath worsens doxycycline 100mg twice daily x 2 weeks [...] symptoms Iron deficiency anemia-stopped oral iron per cotton opener in March-recheck labs HTN-elevated today-monitor twice daily [...] for s/s of infection or other concerns start on the azithromycin today start on the cefidinr tomorrow start on the prednisone tomorrow start breathing treatments today . Pneumonia - Pt has been diagnosed with pneumonia by physical exam. Antibiotics started. The pt is aware of the diagnosis and the need for acute treatment of this illness. . Hypertension - well controlled - continue [...] 5pm. Daytime napping worsens night time insomnia. CHECK BLOOD PRESSURE 1-2 TIMES DAILY AND [...] further attempt to reduce peripheral edema. Night croqdx-uitvmdi-kdalw labs INCREASE XANAX TO THREE TIMES DAILY NEEDED [...] for follow up. Chronic renal disease-check labs Yujzmvn-igtakgvjpi-pqfjkhkf with cymbalta-continue same dose for now -may take xanax TID PRN Multiple joint pain-check labs including inflammatory markers
--- OUTSIDE RECORDS SUMMARY | 2018-11-04 16:35 | XMS REPORT | CCD ---
Author Author Marilyn Lao Organization Marilyn Lao MD, [facility] Address [address] [place] [address] Phone Care Team Providers Care Salon/Spa Manager Name Role Phone PP Unavailable CCM Unavailable Summary Purpose Interface Exchange Insurance Providers Payer name Policy type / Coverage type Covered democrat ID Effective Begin Date Effective End Date WPS Medicare Part B Medicare Part B [id number] Unknown [employer] and Life Medicare Part B [id number] Unknown Family history Mother Diagnosis Age At [...] Description Effective Dates Tobacco history SNOMED CT: 183087270 Never smoker but had significant smoke exposure during first marriage, [place]. 08/01/2013 Employment Unknown Retired doing as needed working for the [employer]. 05/02/2013 Marital status Unknown 04/18/[address]: 799153497 Never drinks alcohol 04/18/2013 Has the patient ever used illegal drugs? Unknown Has never used illegal drugs 04/18/2013 Allergies, Adverse Reactions, Alerts Allergies, Adverse Reactions, Alerts data not found Past Medical History Illness Codes Condition Status Onset Date Resolved Date Gastro-esophageal reflux disease without esophagitis ICD-9: 530.81 ICD-10: K21.9 Active 05/11/2017 Unknown Contusion of right lower leg, initial encounter ICD-9: 924.5 ICD-10: S80.11XA Active 10/30/2016 Unknown Essential (primary) hypertension ICD-9: 401.9 ICD-10: I10 Active 02/24/2016 Unknown Allergic rhinitis, unspecified ICD-9: 477.9 ICD-10: J30.9 Active 09/15/2016 Unknown Pain in left hand ICD-9: 729.5 ICD-10: M79.642 Active 06/19/2016 Unknown Pain in right hand ICD- 9: 729.5 ICD-10: M79.641 Active 06/19/2016 Unknown Generalized anxiety disorder ICD-9: 308.0 ICD-10: [...] Problems Condition Codes Effective Dates Condition Status Gastro-esophageal reflux disease without esophagitis ICD-9: 530.81 ICD-10: K21.9 05/11/2017 Active Contusion of right lower leg, initial encounter ICD-9: 924.5 ICD-10: S80.11XA 10/30/2016 Active Essential (primary) hypertension ICD-9: 401.9 ICD-10: I10 02/24/2016 Active Allergic rhinitis, unspecified ICD-9: 477.9 ICD-10: J30.9 09/15/2016 Active Pain in left hand ICD-9: 729.5 ICD-10: M79.642 06/19/2016 Active Pain in right hand ICD- 9: 729.5 ICD-10: M79.641 06/19/2016 Active Generalized anxiety disorder ICD-9: 308.0 ICD-10: [...] Start Date Stop Date Status Fill Instructions Protonix 40 mg tablet,delayed release RxNorm: 365090 1 Tablet(s) PO daily 05/11/2017 06/09/2017 Active Carafate 1 gram tablet RxNorm: 392144 1 Tablet(s) PO QID 05/11/2017 09/07/2017 Active Cymbalta 60 mg capsule,delayed release RxNorm: 485364 TAKE ONE CAPSULE BY MOUTH DAILY 05/05/2017 10/31/2017 Active Xanax 0.25 mg tablet RxNorm: 679421 1 Tablet(s) PO TID PRN as needed 02/09/2017 06/08/2017 Active Cymbalta 60 mg capsule,delayed release RxNorm: 174774 TAKE ONE CAPSULE BY MOUTH DAILY 10/28/2016 04/25/2017 Inactive Xanax 0.25 mg tablet RxNorm: 100031 1 Tablet(s) PO TID PRN as needed 10/08/2016 12/06/2016 Inactive NEED TO GIVE #90 WITH NEXT REFILL Kenalog 40 mg/mL suspension for injection RxNorm: 7464572 Milliliter(s) Inj 09/15/2016 09/15/2016 Inactive tramadol 50 mg tablet RxNorm: 157262 Tablet(s) TAKE 2 TABLETS BY MOUTH TWICE DAILY 08/18/2016 02/13/2017 Inactive Generic For:ULTRAM 50 MG TABLET N O T I C E Last quantity doesn't match original quantity(Response to an electronic controlled substance refill request - RxReferenceNumber: [id number]) potassium chloride ER 10 mEq capsule,extended release RxNorm: 911440 TAKE ONE CAPSULE BY MOUTH DAILY NEEDED 08/03/2016 01/29/2017 Inactive furosemide 20 mg tablet RxNorm: 987221 1 Tablet(s) PO daily as needed for swelling 06/18/2016 06/12/2017 Active 2 daily x 1 week then daily potassium chloride ER 10 mEq capsule,extended release RxNorm: 980180 1 Capsule(s) PO QDAY PRN 06/18/2016 08/02/2016 Inactive montelukast 10 mg tablet RxNorm: 703715 1 Tablet(s) PO QHS 04/24/2016 04/18/2017 Inactive omeprazole 20 mg capsule,delayed release RxNorm: 572068 Capsule(s) 1 Capsule(s) PO daily 04/24/2016 04/18/2017 Inactive ropinirole 1 mg tablet RxNorm: 052582 2 Tablet(s) PO QHS 04/24/2016 04/18/2017 Inactive labetalol 100 mg tablet RxNorm: 433759 1 Tablet(s) PO BID 04/24/2016 04/18/2017 Inactive amlodipine 5 mg tablet RxNorm: 203407 Tablet(s) TAKE 1 TABLET BY MOUTH TWICE DAILY 04/24/2016 04/18/2017 Inactive Transferring from [facility] Carafate 1 gram tablet RxNorm: 808078 1 Tablet(s) PO daily 04/24/2016 04/18/2017 Inactive Cymbalta 60 mg capsule,delayed release RxNorm: 282066 1 Capsule(s) PO daily 04/24/2016 10/20/2016 Inactive furosemide 20 mg tablet RxNorm: 721758 1 Tablet(s) PO daily as needed for swelling 04/24/2016 06/17/2016 Inactive Xanax 0.25 mg tablet RxNorm: 324253 1 Tablet(s) PO TID PRN as needed 02/25/2016 03/25/2016 Inactive NEED TO GIVE #90 WITH NEXT REFILL Xanax 0.25 mg tablet RxNorm: 002110 1 Tablet(s) PO BID PRN as needed 02/19/2016 02/24/2016 Inactive [SAVINGS FOR UNINSURED PATIENTS -- BIN:[id number], PCN: ASPROD1, Group: [id number], ID# [id number], Process claim through Clerts!, for questions: . THIS IS NOT INSURANCE.] Cymbalta 60 mg capsule,delayed release RxNorm: 497881 1 Capsule(s) PO daily 01/28/2016 04/23/2016 Inactive ropinirole 1 mg tablet RxNorm: 275799 1 Tablet(s) PO BID TAKE 1 TABLET BY MOUTH DAILY EVERY NIGHT 01/28/2016 04/23/2016 Inactive Generic For:REQUIP 1 MG TABLET tramadol 50 mg tablet RxNorm: 161872 Tablet(s) TAKE 2 TABLETS BY MOUTH TWICE DAILY 01/16/2016 07/13/2016 Inactive Generic For:ULTRAM 50 MG TABLET N O T I C E Last quantity doesn't match original quantity(Response to an electronic controlled substance refill request - RxReferenceNumber: [id number]) omeprazole 20 mg capsule,delayed release RxNorm: 782261 1 Tablet(s) PO daily 1 Capsule(s) PO daily 12/11/2015 04/23/2016 Inactive pravastatin 10 mg tablet RxNorm: 313365 1 Tablet(s) PO QHS TAKE 1 TABLET BY MOUTH EVERY NIGHT 11/28/2015 01/27/2016 Inactive Generic For:PRAVACHOL 10 MG TABLET furosemide 20 mg tablet RxNorm: 243045 1 Tablet(s) PO daily as needed for swelling 11/12/2015 04/23/2016 Inactive pravastatin 10 mg tablet RxNorm: 504502 1 Tablet(s) PO QHS TAKE 1 TABLET BY MOUTH EVERY NIGHT 11/07/2015 11/27/2015 Inactive Generic For:PRAVACHOL 10 MG TABLET Xanax 0.25 mg tablet RxNorm: 236395 1 Tablet(s) PO BID PRN as needed 10/28/2015 01/25/2016 Inactive [SAVINGS FOR UNINSURED PATIENTS -- BIN:999112, PCN: ASPROD1, Group: [id number], ID# [id number], Process claim through Clerts!, for questions: . THIS IS NOT INSURANCE.] Viberzi 75 mg tablet RxNorm: 0412160 1 Tablet(s) PO BID 10/10/2015 10/10/2015 Inactive doxycycline hyclate 100 mg tablet RxNorm: 039370 1 Tablet(s) PO BID 10/10/2015 10/23/2015 Inactive Vitamins B Complex capsule RxNorm: 1 Capsule(s) PO daily 09/12/2015 No Stop Date Active Vitamin D3 1,000 unit tablet RxNorm: 421406 3-4 Tablet(s) PO daily 09/12/2015 No Stop Date Active Augmentin 500 mg-125 mg tablet RxNorm: 192064 1 Tablet(s) PO BID 07/09/2015 2015 Inactive probiotic one bid x 7 days Augmentin 500 mg-125 mg tablet RxNorm: 467767 1 Tablet(s) PO BID 07/09/2015 07/08/2015 Inactive Xanax 0.25 mg tablet RxNorm: 822274 1 Tablet(s) PO BID PRN as needed 07/01/2015 09/28/2015 Inactive [SAVINGS FOR UNINSURED PATIENTS -- BIN:959780, PCN: ASPROD1, Group: AME08, ID# [id number], Process claim through Clerts!, for questions: . THIS IS NOT INSURANCE.] sertraline 100 mg tablet RxNorm: 229932 TAKE 1 TABLET BY MOUTH TWICE DAILY 07/01/2015 01/27/2016 Inactive Generic For:*ZOLOFT 100MG TABLET N O T I C E Last quantity doesn't match original quantity amlodipine 5 mg tablet RxNorm: 530018 TAKE 1 TABLET BY MOUTH TWICE DAILY 06/26/2015 04/23/2016 Inactive Generic For:NORVASC 5 MG TABLET N O T I C E Last quantity doesn't match original quantity amlodipine 5 mg tablet RxNorm: 404461 Tablet(s) 1 Tablet(s) PO BID 06/25/2015 06/25/2015 Inactive ropinirole 1 mg tablet RxNorm: 852436 TAKE 1 TABLET BY MOUTH DAILY EVERY NIGHT 05/22/2015 01/27/2016 Inactive Generic For:REQUIP 1 MG TABLET ropinirole 1 mg tablet RxNorm: 786662 Tablet(s) 1 Tablet(s) PO QPM 05/22/2015 05/21/2015 Inactive pravastatin 10 mg tablet RxNorm: 658818 TAKE 1 TABLET BY MOUTH EVERY NIGHT 05/14/2015 11/06/2015 Inactive Generic For:PRAVACHOL 10 MG TABLET tramadol 50 mg tablet RxNorm: 263851 2 Tablet(s) PO BID 04/25/2015 01/18/2016 Inactive labetalol 100 mg tablet RxNorm: 494580 1 Tablet(s) PO BID 04/09/2015 04/23/2016 Inactive omeprazole 20 mg capsule,delayed release RxNorm: 710740 1 Tablet(s) PO daily 1 Capsule(s) PO daily 03/20/2015 12/10/2015 Inactive Carafate 1 gram tablet RxNorm: 502792 Tablet(s) PO UD 4 times daily x 1 week and then PRN 02/27/2015 02/21/2016 Inactive Xanax 0.25 mg tablet RxNorm: 824411 1 Tablet(s) PO BID PRN as needed 02/08/2015 06/06/2015 Inactive [SAVINGS FOR UNINSURED PATIENTS -- BIN:167485, PCN: ASPROD1, Group: AME08, ID# [id number], Process claim through Clerts!, for questions: . THIS IS NOT INSURANCE.] furosemide 20 mg tablet RxNorm: 657485 1 Tablet(s) PO daily as needed for swelling 10/25/2014 02/21/2015 Inactive ok to fill by Dr. Franklin 10-25-14 Xanax 0.25 mg tablet RxNorm: 069310 1 Tablet(s) PO BID PRN as needed 09/25/2014 01/21/2015 Inactive [SAVINGS FOR UNINSURED PATIENTS -- BIN:173036, PCN: ASPROD1, Group: AME08, ID# [id number], Process claim through Clerts!, for questions: . THIS IS NOT INSURANCE.] pravastatin 10 mg tablet RxNorm: 017356 TAKE 1 TABLET BY MOUTH EVERY NIGHT 09/06/2014 04/03/2015 Inactive Generic For:PRAVACHOL 10 MG TABLET tramadol 50 mg tablet RxNorm: 216285 TAKE 2 TABLETS BY MOUTH TWICE DAILY 08/02/2014 01/15/2016 Inactive Generic For:ULTRAM 50 MG TABLET N O T I C E Last quantity doesn't match original quantity(Response to an electronic controlled substance refill request - [facility] [id number]) tramadol 50 mg tablet RxNorm: 076481 2 Tablet(s) PO BID 08/01/2014 08/02/2014 Inactive acyclovir 400 mg tablet RxNorm: 616548 2 Tablet(s) PO QID 07/16/2014 07/25/2014 Inactive sertraline 100 mg tablet RxNorm: 107472 1 Tablet(s) PO BID 1 Tablet(s) PO BID 06/13/2014 12/09/2014 Inactive sertraline 100 mg tablet RxNorm: 589335 1 Tablet(s) PO BID 06/13/2014 06/12/2014 Inactive magnesium oxide 400 mg tablet RxNorm: 599003 1 Tablet(s) PO daily 05/25/2014 2014 Inactive ropinirole 1 mg tablet RxNorm: 642552 1 Tablet(s) PO QPM 05/25/2014 05/19/2015 Inactive amlodipine 5 mg tablet RxNorm: 335033 1 Tablet(s) PO BID 05/25/2014 05/19/2015 Inactive prednisone 10 mg tablets in a dose pack RxNorm: 224674 1 Tablet(s) PO UD 04/06/2014 04/10/2014 Inactive 6-5-4-3-2-1 Xanax 0.25 mg tablet RxNorm: 042209 1 Tablet(s) PO BID PRN as needed 04/04/2014 07/02/2014 Inactive [SAVINGS FOR UNINSURED PATIENTS -- BIN:684098, PCN: ASPROD1, Group: AME08, ID# [id number], Process claim through Clerts!, for questions: . THIS IS NOT INSURANCE.] prednisone 20 mg tablet RxNorm: 996261 3 Tablet(s) PO daily 04/02/2014 04/05/2014 Inactive [SAVINGS FOR UNINSURED PATIENTS -- BIN:843244, PCN: ASPROD1, Group: AME08, ID# [id number], Process claim through Clerts!, for questions: . THIS IS NOT INSURANCE.] cefdinir 300 mg capsule RxNorm: 063022 1 Capsule(s) PO BID 04/02/2014 04/11/2014 Inactive [SAVINGS FOR UNINSURED PATIENTS -- BIN:039041, PCN: ASPROD1, Group: AME08, ID# [id number], Process claim through MedImpact, for questions: . THIS IS NOT INSURANCE.] Kenalog 40 mg/mL suspension for injection RxNorm: 4400904 Milliliter(s) Inj 04/02/2014 04/02/2014 Inactive [SAVINGS FOR UNINSURED PATIENTS -- BIN:589762, PCN: ASPROD1, Group: AME08, ID# [id number], Process claim through MedImpact, for questions: . THIS IS NOT INSURANCE.] ceftriaxone 500 mg solution for injection RxNorm: 214416 Inj 04/02/2014 04/02/2014 Inactive [SAVINGS FOR UNINSURED PATIENTS -- BIN:762331, PCN: ASPROD1, Group: AME08, ID# [id number], Process claim through MedImpact, for questions: . THIS IS NOT INSURANCE.] albuterol sulfate 2.5 mg/0.5 mL solution for nebulization RxNorm: 249220 1 treatment INH QID and as needed for dyspnea 04/02/2014 05/31/2014 Inactive [SAVINGS FOR UNINSURED PATIENTS -- BIN:090078, PCN: ASPROD1, Group: AME08, ID# [id number], Process claim through MedImpact, for questions: . THIS IS NOT INSURANCE.] azithromycin 500 mg tablet RxNorm: 199816 1 Tablet(s) PO daily 04/02/2014 04/06/2014 Inactive [SAVINGS FOR UNINSURED PATIENTS -- BIN:310064, PCN: ASPROD1, Group: AME08, ID# [id number], Process claim through MedImpact, for questions: . THIS IS NOT INSURANCE.] omeprazole 20 mg capsule,delayed release RxNorm: 270204 1 Tablet(s) PO daily 1 Capsule(s) PO daily 02/26/2014 06/25/2014 Inactive Xanax 0.25 mg tablet RxNorm: 046759 1 Tablet(s) PO BID PRN as needed 02/01/2014 04/03/2014 Inactive [SAVINGS FOR UNINSURED PATIENTS -- BIN:699660, PCN: ASPROD1, Group: AME08, ID# [id number], Process claim through MedImpact, for questions: . THIS IS NOT INSURANCE.] Xanax 0.25 mg tablet RxNorm: 106193 1 Tablet(s) PO HS PRN as needed 01/04/2014 01/31/2014 Inactive [SAVINGS FOR UNINSURED PATIENTS -- BIN:250753, PCN: ASPROD1, Group: AME08, ID# [id number], Process claim through MedImpact, for questions: . THIS IS NOT INSURANCE.] pravastatin 10 mg tablet RxNorm: 701895 1 Tablet(s) PO QHS 12/21/2013 12/20/2013 Inactive pravastatin 10 mg tablet RxNorm: 437996 1 Tablet(s) PO QHS 12/21/2013 07/18/2014 Inactive [SAVINGS FOR UNINSURED PATIENTS -- BIN:257287, PCN: ASPROD1, Group: AME08, ID# [id number], Process claim through MedImpact, for questions: . THIS IS NOT INSURANCE.] Hytrin 1 mg tablet RxNorm: 290176 1 Tablet(s) PO BID 12/21/2013 04/08/2015 Inactive [SAVINGS FOR UNINSURED PATIENTS -- BIN:753263, PCN: ASPROD1, Group: AME08, ID# [id number], Process claim through MedImpact, for questions: . THIS IS NOT INSURANCE.] Hytrin 1 mg tablet RxNorm: 765006 1 Tablet(s) PO daily 12/18/2013 12/20/2013 Inactive [SAVINGS FOR UNINSURED PATIENTS -- BIN:106785, PCN: ASPROD1, Group: AME08, ID# [id number], Process claim through MedImpact, for questions: . THIS IS NOT INSURANCE.] sertraline 100 mg tablet RxNorm: 225971 1 Tablet(s) PO QHS 12/14/2013 12/08/2014 Inactive [SAVINGS FOR UNINSURED PATIENTS -- BIN:563701, PCN: ASPROD1, Group: AME08, ID# [id number], Process claim through Clerts!, for questions: . THIS IS NOT INSURANCE.] Xanax 0.25 mg tablet RxNorm: 611699 1 Tablet(s) PO HS PRN as needed 12/13/2013 01/03/2014 Inactive [SAVINGS FOR UNINSURED PATIENTS -- BIN:196604, PCN: ASPROD1, Group: AME08, ID# [id number], Process claim through Clerts!, for questions: . THIS IS NOT INSURANCE.] tramadol 50 mg tablet RxNorm: 836869 2 Tablet(s) PO BID 11/08/2013 04/24/2015 Inactive Xanax 0.25 mg tablet RxNorm: 061290 1 Tablet(s) PO HS PRN as needed 10/19/2013 10/18/2013 Inactive Xanax 0.25 mg tablet RxNorm: 668912 1 Tablet(s) PO HS PRN as needed 10/19/2013 12/12/2013 Inactive Carafate 1 gram tablet RxNorm: 003126 Tablet(s) PO dissolve 1 tab QID x 1 week, then TID x 1 week, then BID x 1 week 09/07/2013 02/26/2015 Inactive omeprazole 20 mg capsule,delayed release RxNorm: 585733 1 Capsule(s) PO daily 09/07/2013 09/06/2013 Inactive omeprazole 20 mg capsule,delayed release RxNorm: 852634 1 Capsule(s) PO daily 09/07/2013 02/26/2014 Inactive prednisone 10 mg tablet RxNorm: 840204 1 Tablet(s) PO 08/25/2013 12/13/2013 Inactive prednisone taper Zithromax Z-Bon 250 mg tablet RxNorm: 681609 Tablet(s) PO as directed 08/25/2013 12/13/2013 Inactive Zithromax Z-Bon 250 mg tablet RxNorm: 199741 Tablet(s) PO as directed 08/04/2013 08/24/2013 Inactive Xanax 0.25 mg tablet RxNorm: 112024 1 Tablet(s) PO HS PRN 08/01/2013 10/18/2013 Inactive Kenalog 40 mg/mL suspension for injection RxNorm: 1765620 Milliliter(s) Inj 08/01/2013 08/01/2013 Inactive tramadol 50 mg tablet RxNorm: 949069 2 Tablet(s) PO BID 05/02/2013 11/07/2013 Inactive carvedilol 25 mg tablet RxNorm: 300431 1 Tablet(s) PO BID 05/02/2013 12/13/2013 Inactive magnesium oxide 400 mg tablet RxNorm: 151615 1 Tablet(s) PO daily 05/02/2013 04/26/2014 Inactive furosemide 20 mg tablet RxNorm: 698612 2 Tablet(s) PO daily 05/02/2013 2014 Inactive amlodipine 5 mg tablet RxNorm: 063676 1 Tablet(s) PO BID 05/02/2013 04/26/2014 Inactive sertraline 100 mg tablet RxNorm: 901313 1 Tablet(s) PO BID 05/02/2013 12/13/2013 Inactive ropinirole 1 mg tablet RxNorm: 039370 1 Tablet(s) PO QPM 05/02/2013 04/26/2014 Inactive pantoprazole 40 mg tablet,delayed release RxNorm: 437059 1 Tablet(s) PO daily 05/02/2013 2014 Inactive gabapentin 600 mg tablet RxNorm: 395517 1 Tablet(s) PO BID 05/02/2013 2014 Inactive ferrous fumarate 325 mg (106 mg iron) tablet RxNorm: 068866 1 Tablet(s) PO daily No Start Date 2014 Inactive amlodipine 5 mg tablet RxNorm: 650701 1 Tablet(s) PO BID No Start Date 05/01/2013 Inactive Vitamin B-12 2,500 mcg sublingual tablet RxNorm: 278853 1 Tablet(s) SL daily No Start Date 2014 Inactive Zithromax Z-Bon 250 mg tablet RxNorm: 882436 Tablet(s) PO as directed No Start Date 08/03/2013 Inactive sertraline 100 mg tablet RxNorm: 194978 1 Tablet(s) PO BID No Start Date 05/01/2013 Inactive Hytrin 1 mg tablet RxNorm: 177075 1 Tablet(s) PO BID No Start Date 12/17/2013 Inactive potassium chloride ER 10 mEq capsule,extended release RxNorm: 599055 1 Capsule(s) PO QDAY PRN No Start Date 06/17/2016 Inactive Xanax 0.25 mg tablet RxNorm: 163017 1 Tablet(s) PO HS PRN No Start Date 07/31/2013 Inactive gabapentin 600 mg tablet RxNorm: 659252 1 Tablet(s) PO BID No Start Date 05/01/2013 Inactive ropinirole 1 mg tablet RxNorm: 436913 1 Tablet(s) PO QPM No Start Date 05/01/2013 Inactive Vitamin D3 1,000 unit tablet RxNorm: 422892 2 Tablet(s) PO daily No Start Date 09/11/2015 Inactive furosemide 20 mg tablet RxNorm: 670856 1 Tablet(s) PO BID No Start Date 05/01/2013 Inactive tramadol 50 mg tablet RxNorm: 240919 2 Tablet(s) PO BID No Start Date 05/01/2013 Inactive Carafate 1 gram tablet RxNorm: 802241 Tablet(s) PO dissolve 1 tab QID x 1 week, then TID x 1 week, then BID x 1 week No Start Date 09/06/2013 Inactive pantoprazole 40 mg tablet,delayed release RxNorm: 384456 1 Tablet(s) PO daily No Start Date 05/01/2013 Inactive montelukast 10 mg tablet RxNorm: 642414 1 Tablet(s) PO QHS No Start Date 04/23/2016 Inactive magnesium oxide 400 mg tablet RxNorm: 079056 1 Tablet(s) PO daily No Start Date 05/01/2013 Inactive prednisone 10 mg tablet RxNorm: 463444 1 Tablet(s) PO No Start Date 08/24/2013 Inactive prednisone taper carvedilol 25 mg tablet RxNorm: 883088 1 Tablet(s) PO BID No Start Date 05/01/2013 Inactive baclofen 10 mg tablet RxNorm: 578299 2 Tablet(s) PO daily No Start Date 12/13/2013 Inactive Vitamin B Complex capsule RxNorm: 1 Capsule(s) PO daily No Start Date 2014 Inactive Medication Administered Medication Codes Instructions Start Date Status Kenalog 40 mg/mL suspension for injection RxNorm: 4498808 Milliliter 09/15/2016 No longer Active Kenalog 40 mg/mL suspension for injection RxNorm: 9278371 Milliliter 04/02/2014 No longer Active ceftriaxone 500 mg solution for injection RxNorm: 618464 04/02/2014 No longer Active Kenalog 40 mg/mL suspension for injection RxNorm: 0147032 Milliliter 08/01/2013 No longer Active Immunizations Vaccine Codes Date Status Influenza CVX: 141 01/08/2016 completed Pneumococcal (Adult) CVX: 133 01/08/2016 completed Influenza CVX: 141 01/26/2013 completed Pneumococcal CVX: 33 02/26/2012 completed Tetanus, Diptheria, Pertussis CVX: 113 02/26/2012 completed Tetanus/Diptheria CVX: 113 02/26/2012 completed Assessments Condition Codes Effective Dates Gastro-esophageal reflux disease without esophagitis ICD-10: K21.9 ICD-9: 530.81 05/11/2017 Essential (primary) hypertension ICD-10: I10 ICD-9: 401.9 10/30/2016 Contusion of right lower leg, initial encounter ICD-10: S80.11XA ICD-9: 924.5 10/30/2016 Allergic rhinitis, unspecified ICD-10: J30.9 ICD-9: 477.9 09/15/2016 Pain in right hand ICD-10: M79.641 ICD-9: 729.5 06/19/2016 Pain in left hand ICD-10: M79.642 ICD-9: 729.5 06/19/2016 Generalized anxiety disorder ICD-10: F41.1 ICD-9: 308.0 [...] Visit Reason For Visit Effective Dates Notes abdominal pain 05/11/2017 sores 10/30/2016 anxiety 04/20/2016 anxiety 02/25/2016 anxiety 01/28/2016 vaccination against influenza 01/08/2016 fatigue 11/14/2015 fatigue 10/10/2015 fatigue 09/12/2015 blood pressure followup 04/09/2015 shortness of breath 10/05/2014 fatigue 09/07/2014 eyelid pain 07/16/2014 cough 04/02/2014 101.5 Wednesday diaphoresis 12/14/2013 cough 08/01/2013 hypertension 05/02/2013 hypertension 04/18/2013 Results Observation Observation Code Item Item Code Result Date Mayda [id number] MAYDA (MORTEZA) SCREEN NONE DETECTED 06/22/2016 C-Reactive Protein Qnt Crqnt CRP 0.3 mg/dl 06/19/2016 Sed Rate Ord21 ESR 11 mm/hr 06/19/2016 Ra Factor Dtd397 RA FACTOR <10 IU/ml 06/19/2016 Sed Rate Ord21 ESR 14 mm/hr 02/25/2016 C-Reactive Protein Qnt Crqnt CRP 0.3 mg/dl 02/25/2016 Comp Metabolic Zwn416 NA 136 mEq/L 02/25/2016 Comp Metabolic Zrw693 K 3.9 mEq/L 02/25/2016 Comp Metabolic Vns247 CL 103 mEq/L 02/25/2016 Comp Metabolic Mbh014 CO2 27.0 mEq/L 02/25/2016 Comp Metabolic Ung637 ANION GAP 10 02/25/2016 Comp Metabolic Glk201 GLUCOSE 82 mg/dL 02/25/2016 Comp Metabolic Wiy367 Creat 1.3 mg/dL 02/25/2016 Comp Metabolic Mur971 eGFR 45 ml/min/1.73m2 02/25/2016 Comp Metabolic Bje549 BUN 13 mg/dL 02/25/2016 Comp Metabolic Nln205 B/C Ratio 10.3 Ratio 02/25/2016 Comp Metabolic Eiz095 CALCIUM 9.5 mg/dL 02/25/2016 Comp Metabolic Txt890 ALK PHOS 70 U/L 02/25/2016 Comp Metabolic Txn024 AST(SGOT) 17 U/L 02/25/2016 Comp Metabolic Ftx283 ALT(SGPT) 13 U/L 02/25/2016 Comp Metabolic Aov713 BILI T 0.4 mg/dL 02/25/2016 Comp Metabolic Vqb295 ALBUMIN 4.2 g/dL 02/25/2016 Comp Metabolic Fht946 TPRO 6.6 g/dL 02/25/2016 Comp Metabolic Doo722 GLOB 2.4 g/dL 02/25/2016 Comp Metabolic Byu530 A/G Ratio 1.7 Ratio 02/25/2016 Comp Metabolic Iar808 Osmo 271 mOsmo 02/25/2016 Cbc With Differential [...] 86.4 fl 02/25/2016 Cbc With Differential Ord2 [place]% 6.8 % 02/25/2016 Cbc With Differential Ord2 [...] 1.62 K/ul 02/25/2016 Cbc With Differential Ord2 [place] ABS# 0.4 K/ul 02/25/2016 Cbc With Differential Ord2 Eos ABS# 0.1 K/ul 02/25/2016 Cbc With Differential Ord2 Baso ABS# 0.0 K/ul 02/25/2016 Tsh Ord6 hTSH II 1.63 uIU/mL 02/25/2016 [place] Spotted Fever Igg/Igm 092317 BENIG[place] SPOTTED FEVER IGM EIA . 09/17/2015 [place] Spotted Fever Igg/Igm 820063 RMSF, IGM 0.27 index 09/17/2015 [place] Spotted Fever Igg/Igm 635537 BENIGNO MT SPOTTED FEVER IGG EIA FLEX . 09/17/2015 [place] Spotted Fever Igg/Igm 775214 RMSF, IGG SCREEN-FLEX Negative 09/17/2015 Ehrlichia Chaffeensis Antibody Igm 673336 EHRLICHIA CHAFFEENSIS IGM < 1:16 09/16/2015 Ehrlichia Chaffeensis Antibody Igg 880184 EHRLICHIA CHAFFEENSIS IGG 1:256 09/16/2015 Lymes Disease Total Antibodies With Western Blot Reflex [id number] B. BURGDORFERI, IGG/IGM 0.10 LI 09/14/2015 Lymes Disease Total Antibodies With Western Blot Reflex [id number] 09/14/2015 Vitamin D 25 Oh Niw8156 VITAMIN D, 25 HYDROXY 59.60 ng/mL 09/13/2015 Sed Rate Ord21 ESR 10 mm/hr 09/12/2015 Comp Metabolic Slt098 NA 139 mEq/L 09/12/2015 Comp Metabolic Reh331 K 3.8 mEq/L 09/12/2015 Comp Metabolic Xok123 CL 103 mEq/L 09/12/2015 Comp Metabolic Caf275 CO2 27.0 mEq/L 09/12/2015 Comp Metabolic Mym229 ANION GAP 13 09/12/2015 Comp Metabolic Vkv204 GLUCOSE 91 mg/dL 09/12/2015 Comp Metabolic Wis730 Creat 1.2 mg/dL 09/12/2015 Comp Metabolic Ics554 eGFR 47 ml/min/1.73m2 09/12/2015 Comp Metabolic Xbg824 BUN 20 mg/dL 09/12/2015 Comp Metabolic Mvz344 B/C Ratio 16.3 Ratio 09/12/2015 Comp Metabolic Bgk049 CALCIUM 9.3 mg/dL 09/12/2015 Comp Metabolic Afr028 ALK PHOS 55 U/L 09/12/2015 Comp Metabolic Sqw083 AST(SGOT) 19 U/L 09/12/2015 Comp Metabolic Nxt169 ALT(SGPT) 14 U/L 09/12/2015 Comp Metabolic Ihg849 BILI T 0.6 mg/dL 09/12/2015 Comp Metabolic Otg916 ALBUMIN 4.3 g/dL 09/12/2015 Comp Metabolic Lwp886 TPRO 6.8 g/dL 09/12/2015 Comp Metabolic Xrz495 GLOB 2.5 g/dL 09/12/2015 Comp Metabolic Hsh111 A/G Ratio 1.8 Ratio 09/12/2015 Comp Metabolic Zaw527 Osmo 280 mOsmo 09/12/2015 B12 Oyn962 B12 >1500.00 pg/ml 09/12/2015 Cbc With Differential [...] 28.9 pg 09/12/2015 Cbc With Differential Ord2 [place]% 5.9 % 09/12/2015 Cbc With Differential Ord2 [...] 1.33 K/ul 09/12/2015 Cbc With Differential Ord2 [place] ABS# 0.3 K/ul 09/12/2015 Cbc With Differential Ord2 Eos ABS# 0.1 K/ul 09/12/2015 Cbc With Differential Ord2 Baso ABS# 0.0 K/ul 09/12/2015 Tsh Ord6 hTSH II 1.88 uIU/mL 09/12/2015 Review of Systems System Result Effective Dates Constitutional No recent illness 05/11/2017 Constitutional No [...] lips 05/11/2017 None Full Exam - General 1995 Ears/Nose/Throat [...] Full Exam - General 1994 Neurologic coordination Cwaurj-xkej-dhmkyb testing - left: dysmetria 05/11/2017 None Full Exam - General 1994 Neurologic coordination Xbxttv-jbmv-pkdiwo testing - right: dysmetria 05/11/2017 None Full [...] Full Exam - General 1994 Neurologic coordination Xkqdix-chjq-aervge testing - left: dysmetria 04/20/2016 None Full Exam - General 1994 Neurologic coordination Bhsznn-dmio-lxvsll testing - right: dysmetria 04/20/2016 None Full [...] Full Exam - General 1994 Neurologic coordination Xzlfom-iwrm-ghwwkj testing - left: dysmetria 02/25/2016 None Full Exam - General 1994 Neurologic coordination Nkvxhp-zghz-wiinvx testing - right: dysmetria 02/25/2016 None Full [...] Full Exam - General 1994 Neurologic coordination Mychrm-bapy-mokcjr testing - left: dysmetria 01/28/2016 None Full Exam - General 1994 Neurologic coordination Bqvzbh-vvom-siuaqh testing - right: dysmetria 01/28/2016 None Full [...] Procedure Codes Date THER/PROPH/DIAG INJ SC/IM CPT-4: 59070 09/15/2016 TRIAMCINOLONE ACET INJ NOS CPT-4: J3301 09/15/2016 ADMIN INFLUENZA VIRUS VAC CPT-4: G0008 01/08/2016 ADMIN PNEUMOCOCCAL VACCINE SNOMED CT: 13225398 CPT-4: G0009 01/08/2016 PNEUMOCOCCAL VACC 13 RIVERA IM Formatting Model/CDA Sections, Assigned to/Aliya Muñoz SNOMED CT: 64652621 CPT-4: 62858Pmtkaut 01/08/2016 FLU VACC 4 RIVERA 3 YRS PLUS IM SNOMED CT: 75892230 CPT-4: 48390 01/08/2016 THER/PROPH/DIAG INJ SC/IM CPT-4: 23791 04/02/2014 TRIAMCINOLONE ACET INJ NOS CPT-4: J3301 04/02/2014 ROCEPHIN, PER 250 MG CPT- 4: J0696 04/02/2014 TRIAMCINOLONE ACET INJ NOS CPT-4: J3301 08/01/2013 THER/PROPH/DIAG INJ SC/IM CPT-4: 53958 08/01/2013 Vital Signs Date Vital 05/11/2017 Blood Pressure 1: 144/90 Code: 8480-6 BMI: 34.6 Code: 35912-8 Heart Rate 1: 76 bpm Height: 5'5" SpO2: 98% Weight: 208 lbs 10/30/2016 Blood Pressure 1: 172/104 Code: 8480-6 Blood Pressure 1: 158/98 Code: 8480-6 BMI: 34.7 Code: 57324-2 Heart Rate 1: 70 bpm Height: 5'5" SpO2: 97% Temperature: 36.2 (C) / 97.1 (F) Weight: 208 lbs 10 oz 04/20/2016 Blood Pressure 1: 144/86 Code: 8480-6 BMI: 34.3 Code: 30629-3 Heart Rate 1: 68 bpm Height: 5'5" SpO2: 97% Weight: 206 lbs 02/25/2016 Blood Pressure 1: 122/82 Code: 8480-6 BMI: 34.4 Code: 58890-7 Heart Rate 1: 86 bpm Height: 5'5" SpO2: 94% Weight: 207 lbs 01/28/2016 Blood Pressure 1: 128/86 Code: 8480-6 BMI: 33.3 Code: 73474-3 Heart Rate 1: 86 bpm Height: 5'5" SpO2: 96% Weight: 200 lbs 11/14/2015 Blood Pressure 1: 140/90 Code: 8480-6 Blood Pressure 1: 138/88 Code: 8480-6 BMI: 33.3 Code: 87192-2 Heart Rate 1: 98 bpm Height: 5'5" SpO2: 97% Weight: 200 lbs 10/10/2015 Blood Pressure 1: 132/80 Code: 8480-6 BMI: 33.3 Code: 66196-7 Heart Rate 1: 74 bpm Height: 5'5" SpO2: 96% Weight: 200 lbs 09/12/2015 Blood Pressure 1: 148/90 Code: 8480-6 BMI: 32.9 Code: 55123-0 Heart Rate 1: 94 bpm Height: 5'5" SpO2: 97% Weight: 198 lbs 04/09/2015 Blood Pressure 1: 160/82 Code: 8480-6 Blood Pressure 1: 130/84 Code: 8480-6 BMI: 32.4 Code: 08739-0 Heart Rate 1: 74 bpm Height: 5'5" SpO2: 95% Weight: 195 lbs 10/05/2014 Blood Pressure 1: 140/80 Code: 8480-6 BMI: 30.5 Code: 16958-8 Heart Rate 1: 79 bpm Height: 5'5" SpO2: 98% Weight: 183 lbs 09/07/2014 Blood Pressure 1: 142/96 Code: 8480-6 BMI: 32.1 Code: 92680-3 Heart Rate 1: 72 bpm Height: 5'5" SpO2: 98% Temperature: 36.5 (C) / 97.7 (F) Weight: 193 lbs 07/16/2014 Blood Pressure 1: 138/82 Code: 8480-6 BMI: 31.8 Code: 68066-0 Heart Rate 1: 76 bpm Height: 5'5" Weight: 191 lbs 04/02/2014 Blood Pressure 1: 148/90 Code: 8480-6 BMI: 33.8 Code: 12531-6 Heart Rate 1: 68 bpm Height: 5'5" Temperature: 36.9 (C) / 98.4 (F) Weight: 203 lbs 12/14/2013 Blood Pressure 1: 140/88 Code: 8480-6 BMI: 35.3 Code: 41666-9 Heart Rate 1: 91 bpm Height: 5'5" SpO2: 97% Weight: 212 lbs 08/01/2013 Blood Pressure 1: 126/68 Code: 8480-6 BMI: 35.1 Code: 38468-1 Heart Rate 1: 76 bpm Height: 5'5" Temperature: 36.7 (C) / 98.1 (F) Weight: 211 lbs 05/02/2013 Blood Pressure 1: 118/86 Code: 8480-6 BMI: 34.9 Code: 58421-1 Heart Rate 1: 76 bpm Height: 5'5" Weight: 209 lbs 8 oz 04/18/2013 Blood Pressure 1: 118/60 Code: 8480-6 BMI: 35.3 Code: 27370-7 Heart Rate 1: 68 bpm Height: 5'5" Weight: 212 lbs Functional Status No Functional Status data History of Present Illness Symptom Name Status Result Effective Date Notes abdominal pain Location in the LLQ 05/11/2017 [...] data Encounters Encounter Performer Location Codes Date 27668 EST. PATIENT, LEVEL IV Diagnosis: Gastro-esophageal reflux disease without esophagitis[ICD10: K21.9] Anais Lao MD, [facility] CPT-4: 85139 05/11/2017 ([id number] 91401 EST. PATIENT, LEVEL III Diagnosis: Essential (primary) hypertension[ICD10: I10] Diagnosis: Contusion of right lower leg, initial encounter[ICD10: S80.11XA] Noa Lao MD, [facility] CPT-4: 95687 10/30/2016 ([id number]) 05866 EST. PATIENT, LEVEL IV Diagnosis: Essential (primary) hypertension[ICD10: I10] Diagnosis: Generalized anxiety disorder[ICD10: F41.1] Marilyn Lao MD, [facility] CPT-4: 30684 04/20/2016 ([id number]) 46277 EST. PATIENT, LEVEL IV Diagnosis: Essential (primary) hypertension[ICD10: I10] Diagnosis: Chronic kidney disease, stage 3 (moderate)[ICD10: N18.3] Diagnosis: Generalized anxiety disorder[ICD10: F41.1] Diagnosis: Major depressive disorder, recurrent, moderate[ICD10: F33.1] Diagnosis: Shortness of breath[ICD10: R06.02] Noa Lao MD, [facility] CPT- 4: 68659 02/25/2016 ([id number]) 02902 EST. PATIENT, LEVEL IV Diagnosis: Generalized anxiety disorder[ICD10: F41.1] Diagnosis: Major depressive disorder, recurrent, moderate[ICD10: F33.1] Diagnosis: Essential (primary) hypertension[ICD10: I10] Diagnosis: Restless legs syndrome[ICD10: G25.81] Diagnosis: Myalgia[ICD10: M79.1] Noa aLo MD, [facility] CPT-4: 68270 01/28/2016 [id number]) [id number] EST. PATIENT, LEVEL III Diagnosis: Essential (primary) hypertension[ICD10: I10] Diagnosis: Insomnia, unspecified[ICD10: G47.00] Noa Lao MD, [facility] CPT-4: 43004 11/14/2015 ([id number]) 76265 EST. 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 PATIENT, LEVEL IV Diagnosis: Bitten or stung by nonvenomous insect and other nonvenomous arthropods, initial encounter[ICD10: W57.XXXA] Diagnosis: Other fatigue[ICD10: R53.83] Diagnosis: Vitamin D deficiency, unspecified[ICD10: E55.9] Diagnosis: Other vitamin B12 deficiency anemias[ICD10: D51.8] Diagnosis: Essential (primary) hypertension[ICD10: I10] Diagnosis: Iron deficiency[ICD10: E61.1] Noa Lao MD, [facility] CPT-4: 41999 09/12/2015 ([id number]) 54714 EST. PATIENT, LEVEL III Diagnosis: Essential (primary) hypertension[ICD10: I10] Diagnosis: Chronic kidney disease, stage 3 (moderate)[ICD10: N18.3] Noa Lao MD, [facility] CPT-4: 35220 04/09/2015 ([id number]) 17984 EST. PATIENT, LEVEL III Diagnosis: ESSENTIAL HYPERTENSION[ICD9: 401.9] Noa Lao MD, [facility] CPT-4: 53058 10/05/2014 ([id number]) 28796 EST. PATIENT, LEVEL IV Diagnosis: Easy bruising[ICD9: 782.9] Diagnosis: Iron deficiency anemia[ICD9: 280.9] Diagnosis: ESSENTIAL HYPERTENSION[ICD9: 401.9] Diagnosis: Chronic kidney disease, stage 3[ICD9: 585.3] Noa Lao MD, [facility] CPT-4: 18129 09/07/2014 ([id number]) 88286 EST. PATIENT, LEVEL III Diagnosis: Shingles[ICD9: 053.9] Marilyn Lao MD, [facility] CPT-4: 62404 07/16/2014 ([id number]) 25564 EST. PATIENT, LEVEL III Diagnosis: PNEUMONIA (CAP)[ICD9: 486] Diagnosis: COUGH[ICD9: 786.2] Marilyn Lao MD, [facility] CPT-4: 68675 04/02/2014 ([id number] 62260 EST. PATIENT, LEVEL III Diagnosis: ESSENTIAL HYPERTENSION[ICD9: 401.9] Diagnosis: Rib pain on left side[ICD9: 786.50] Diagnosis: EDEMA[ICD9: 782.3] Noa Darion Lao MD, [facility] CPT-4: 27034 12/14/2013 ([id number]) 75322 EST. PATIENT, LEVEL IV Diagnosis: ESOPHAGEAL REFLUX[ICD9: 530.81] Diagnosis: Urge incontinence[ICD9: 788.31] Diagnosis: Elbow pain, right[ICD9: 719.42] Diagnosis: Snoring[ICD9: 786.09] Marilyn Lao MD, [facility] CPT-4: 82137 08/01/2013 ([id number]) 59747 EST. PATIENT, LEVEL IV Diagnosis: ESSENTIAL HYPERTENSION[SNOMED: 29575787] Diagnosis: EDEMA[ICD9: 782.3] Diagnosis: Chronic renal insufficiency, stage III (moderate)[ICD9: 585.3] Diagnosis: HYPERLIPIDEMIA[ICD9: 272.4] Marilyn Lao MD, [facility] CPT-4: 74211 05/02/2013 ([id number]) 88679 EST. PATIENT, LEVEL IV Diagnosis: ESSENTIAL HYPERTENSION[SNOMED: 31779735] Diagnosis: Restless leg[ICD9: 333.94] Marilyn Lao MD, [facility] CPT-4: 06663 04/18/2013 Plan of Care Planned Activity Notes Codes Status Date Visit Plan: Esophageal Reflux - the patient has been counseled against excessive intake of caffeine, spicy foods, peppermint, and cinnamon - all of which can exacerbate esophageal reflux. The patient is to take med ications as prescribed and call the office if the symptoms are not improving. 05/11/2017 Patient Education: Patient Medication Summary Completed [...] Completed 09/15/2016 Appointment: Marilyn Lao WPtel: [phone] [facility] (15 min) Moderate 08/19/2016 Patient Education: Patient [...] current medications. 04/20/2016 Appointment: Marilyn Lao WPtel: [phone] (30 min) Complex 04/20/2016 Patient Education: Patient Medication Summary Completed 04/20/2016 Patient Education: Obesity Completed 04/20/2016 Patient Education: Hypertension Completed 04/20/2016 Appointment: Noa Orlando WPtel: [phone] (30 min) Complex 03/16/2016 Referral: Ta Santacruz [...] for follow up. Chronic renal disease-check labs Gktitew-kuifjuuwbv-xauzhejw with cymbalta-continue same dose for now -may take xanax TID PRN Multiple joint pain-check labs including inflammatory markers 02/25/2016 Appointment: Noa Orlando WPtel: [phone] [phone] [place] (30 min) Complex 02/25/2016 Patient Education: Patient Medication Summary Completed 02/25/2016 Patient Education: Obesity Completed 02/25/2016 Patient Education: Hypertension Completed 02/25/2016 Care Plan: Referral Order SNOMED-CT : [id number] Pending 02/25/2016 Visit Plan: Anxiety/Depression - the [...] in blood pressure readings at home. Restless tzm-idqjme-jvsbzpqs requip to twice daily-monitor symptoms Myalgias-stop pravastatin 01/28/2016 Appointment: Noa Orlando WPtel: [phone] (30 min) Complex 01/28/2016 Patient Education: [...] Completed 10/10/2015 [phone] ([facility] min) Moderate 10/08/2015 Visit Plan: Hypertension - well controlled - continue with current medications, continue with no added salt diet. Pt has been encouraged to exercise daily. The pt has been advised to call the office if there are any acute concerns about change in blood pressure readings at home. Iron deficiency- B12 deficiency-check labs Tick vdzh-gfahcke-qwnkw tick panel 09/12/2015 Appointment: [phone] (15 min) Moderate 09/12/2015 Patient Education: Patient [...] symptoms Iron deficiency anemia-stopped oral iron per pleater in March-recheck labs HTN-elevated today-monitor twice daily [...] Care Plan: COMPLETE CBC AUTOMATED LOINC : 61757-7 Ordered 09/07/2014 Visit Plan: Shingles - Herpes [...] Summary Completed 07/16/2014 Appointment: Marilyn Lao WPtel: [address] [place] [address] Follow up 04/16/2014 Appointment: Sick 04/03/2014 Visit Plan: Pneumonia - Pt has been diagnosed with pneumonia by physical exam. Antibiotics started. The pt is aware of the diagnosis and the need for acute treatment of this illness. 04/02/2014 Patient Education: Patient Medication Summary Completed 04/02/2014 Appointment: Marilyn Lao WPtel: [address] [place] [address] Sick 12/27/2013 Patient Education: Patient Medication Summary [...] further attempt to reduce peripheral edema. Night szwcsb-fugnbtg-ssaab labs 12/14/2013 Appointment: Follow up 12/14/2013 Patient Education: Patient Medication Summary Completed 12/14/2013 Patient Education: Hypertension Completed 12/14/2013 Appointment: Darion Noa WPtel: [facility]4 [phone] Sick 12/01/2013 Appointment: Marilyn Lao WPtel: [facility]6 [phone] Sick 11/30/2013 Visit Plan: Allergies - chronic [...] monitor symptoms. 08/01/2013 Appointment: Marilyn Lao WPtel: [address] [place], [place] [phone] Follow up 08/01/2013 Patient Education: Patient Medication [...] able. 05/02/2013 Appointment: [phone] [facility] Follow up 05/02/2013 Patient Education: Patient [...] juice. 04/18/2013 Appointment: [phone] [facility] New Patient 04/18/2013 Patient Education: Patient [...] in blood pressure readings at home. Restless khh-qgnhbq-llshobdn requip to twice daily-monitor symptoms Myalgias-stop pravastatin [...] for follow up. Chronic renal disease-check labs Ctygyih-srlcxegpim-bbrjnsof with cymbalta-continue same dose for now -may [...] at home. Iron deficiency-B12 deficiency-check labs Tick wapu-voypuzr-whbth tick panel PATIENT IS TO CHECK BLOOD [...] symptoms Iron deficiency anemia-stopped oral iron per pleater in March-recheck labs HTN-elevated today-monitor twice daily [...] further attempt to reduce peripheral edema. Night iwxtxx-kcccitx-xjgsp labs
--- OUTSIDE RECORDS SUMMARY | 2018-11-04 16:38 | XMS REPORT | CCD ---
Author Author Marilyn Lao Organization Marilyn Lao MD, [facility] Address [address] [place] [address] Phone Care Team Providers Care Pathology Laboratory Aide Name Role Phone PP Unavailable CCM Unavailable Summary Purpose Interface Exchange Insurance Providers Payer name Policy type / Coverage type Covered democrat ID Effective Begin Date Effective End Date WPS Medicare Part B Medicare Part B [id number] Unknown [employer] and Life Medicare Part B [id number] Unknown Family history Mother Diagnosis Age At [...] Description Effective Dates Tobacco history SNOMED CT: 676566795 Never smoker but had significant smoke exposure during first marriage, [place]. 08/01/2013 Employment Unknown Retired doing as needed working for the [employer]. 05/02/2013 Marital status Unknown 04/18/[address]: 430247570 Never drinks alcohol 04/18/2013 Has the patient [...] Instructions Protonix 40 mg tablet,delayed release RxNorm: 046042 1 Tablet(s) PO daily 05/11/2017 06/09/2017 Active Carafate 1 gram tablet RxNorm: 716890 1 Tablet(s) PO QID 05/11/2017 09/07/2017 Active Cymbalta 60 mg capsule,delayed release RxNorm: 960769 TAKE ONE CAPSULE BY MOUTH DAILY 05/05/2017 10/31/2017 Active Xanax 0.25 mg tablet RxNorm: 091475 1 Tablet(s) PO TID PRN as needed 02/09/2017 06/08/2017 Active Cymbalta 60 mg capsule,delayed release RxNorm: 368596 TAKE ONE CAPSULE BY MOUTH DAILY 10/28/2016 04/25/2017 Inactive Xanax 0.25 mg tablet RxNorm: 704212 1 Tablet(s) PO TID PRN as needed 10/08/2016 12/06/2016 Inactive NEED TO GIVE #90 WITH NEXT REFILL Kenalog 40 mg/mL suspension for injection RxNorm: 1237033 Milliliter(s) Inj 09/15/2016 09/15/2016 Inactive tramadol 50 mg tablet RxNorm: 358323 Tablet(s) TAKE 2 TABLETS BY MOUTH TWICE DAILY 08/18/2016 02/13/2017 Inactive Generic For:ULTRAM 50 MG TABLET N O T I C E Last quantity doesn't match original quantity(Response to an electronic controlled substance refill request - RxReferenceNumber: [id number]) potassium chloride ER 10 mEq capsule,extended release RxNorm: 322209 TAKE ONE CAPSULE BY MOUTH DAILY NEEDED 08/03/2016 01/29/2017 Inactive furosemide 20 mg tablet RxNorm: 860809 1 Tablet(s) PO daily as needed for swelling 06/18/2016 06/12/2017 Active 2 daily x 1 week then daily potassium chloride ER 10 mEq capsule,extended release RxNorm: 085101 1 Capsule(s) PO QDAY PRN 06/18/2016 08/02/2016 Inactive montelukast 10 mg tablet RxNorm: 591511 1 Tablet(s) PO QHS 04/24/2016 04/18/2017 Inactive omeprazole 20 mg capsule,delayed release RxNorm: 501562 Capsule(s) 1 Capsule(s) PO daily 04/24/2016 04/18/2017 Inactive ropinirole 1 mg tablet RxNorm: 926572 2 Tablet(s) PO QHS 04/24/2016 04/18/2017 Inactive labetalol 100 mg tablet RxNorm: 638754 1 Tablet(s) PO BID 04/24/2016 04/18/2017 Inactive amlodipine 5 mg tablet RxNorm: 057188 Tablet(s) TAKE 1 TABLET BY MOUTH TWICE DAILY 04/24/2016 04/18/2017 Inactive Transferring from [facility] Carafate 1 gram tablet RxNorm: 666336 1 Tablet(s) PO daily 04/24/2016 04/18/2017 Inactive Cymbalta 60 mg capsule,delayed release RxNorm: 331889 1 Capsule(s) PO daily 04/24/2016 10/20/2016 Inactive furosemide 20 mg tablet RxNorm: 089381 1 Tablet(s) PO daily as needed for swelling 04/24/2016 06/17/2016 Inactive Xanax 0.25 mg tablet RxNorm: 915725 1 Tablet(s) PO TID PRN as needed 02/25/2016 03/25/2016 Inactive NEED TO GIVE #90 WITH NEXT REFILL Xanax 0.25 mg tablet RxNorm: 639077 1 Tablet(s) PO BID PRN as needed 02/19/2016 02/24/2016 Inactive [SAVINGS FOR UNINSURED PATIENTS -- BIN:127808, PCN: ASPROD1, Group: [id number], ID# [id number], Process claim through [employer]can[employer]ponsored, for questions: . THIS IS NOT INSURANCE.] Cymbalta 60 mg capsule,delayed release RxNorm: 159970 1 Capsule(s) PO daily 01/28/2016 04/23/2016 Inactive ropinirole 1 mg tablet RxNorm: 189212 1 Tablet(s) PO BID TAKE 1 TABLET BY MOUTH DAILY EVERY NIGHT 01/28/2016 04/23/2016 Inactive Generic For:REQUIP 1 MG TABLET tramadol 50 mg tablet RxNorm: 146059 Tablet(s) TAKE 2 TABLETS BY MOUTH TWICE DAILY 01/16/2016 07/13/2016 Inactive Generic For:ULTRAM 50 MG TABLET N O T I C E Last quantity doesn't match original quantity(Response to an electronic controlled substance refill request - RxReferenceNumber: [id number]) omeprazole 20 mg capsule,delayed release RxNorm: 757278 1 Tablet(s) PO daily 1 Capsule(s) PO daily 12/11/2015 04/23/2016 Inactive pravastatin 10 mg tablet RxNorm: 584399 1 Tablet(s) PO QHS TAKE 1 TABLET BY MOUTH EVERY NIGHT 11/28/2015 01/27/2016 Inactive Generic For:PRAVACHOL 10 MG TABLET furosemide 20 mg tablet RxNorm: 083465 1 Tablet(s) PO daily as needed for swelling 11/12/2015 04/23/2016 Inactive pravastatin 10 mg tablet RxNorm: 324885 1 Tablet(s) PO QHS TAKE 1 TABLET BY MOUTH EVERY NIGHT 11/07/2015 11/27/2015 Inactive Generic For:PRAVACHOL 10 MG TABLET Xanax 0.25 mg tablet RxNorm: 086805 1 Tablet(s) PO BID PRN as needed 10/28/2015 01/25/2016 Inactive [SAVINGS FOR UNINSURED PATIENTS -- BIN:422603, PCN: ASPROD1, Group: AME08, ID# [id number], Process claim through [employer]can[employer], for questions: . THIS IS NOT INSURANCE.] Viberzi 75 mg tablet RxNorm: 8121743 1 Tablet(s) PO BID 10/10/2015 10/10/2015 Inactive doxycycline hyclate 100 mg tablet RxNorm: 426515 1 Tablet(s) PO BID 10/10/2015 10/23/2015 Inactive Vitamins B Complex capsule RxNorm: 1 Capsule(s) PO daily 09/12/2015 No Stop Date Active Vitamin D3 1,000 unit tablet RxNorm: 852333 3-4 Tablet(s) PO daily 09/12/2015 No Stop Date Active Augmentin 500 mg-125 mg tablet RxNorm: 149380 1 Tablet(s) PO BID 07/09/2015 2015 Inactive probiotic one bid x 7 days Augmentin 500 mg-125 mg tablet RxNorm: 146184 1 Tablet(s) PO BID 07/09/2015 07/08/2015 Inactive Xanax 0.25 mg tablet RxNorm: 833789 1 Tablet(s) PO BID PRN as needed 07/01/2015 09/28/2015 Inactive [SAVINGS FOR UNINSURED PATIENTS -- BIN:000929, PCN: ASPROD1, Group: AME08, ID# [id number], Process claim through [employer]canbesponsored, for questions: . THIS IS NOT INSURANCE.] sertraline 100 mg tablet RxNorm: 726604 TAKE 1 TABLET BY MOUTH TWICE DAILY 07/01/2015 01/27/2016 Inactive Generic For:*ZOLOFT 100MG TABLET N O T I C E Last quantity doesn't match original quantity amlodipine 5 mg tablet RxNorm: 363637 TAKE 1 TABLET BY MOUTH TWICE DAILY 06/26/2015 04/23/2016 Inactive Generic For:NORVASC 5 MG TABLET N O T I C E Last quantity doesn't match original quantity amlodipine 5 mg tablet RxNorm: 686800 Tablet(s) 1 Tablet(s) PO BID 06/25/2015 06/25/2015 Inactive ropinirole 1 mg tablet RxNorm: 954346 TAKE 1 TABLET BY MOUTH DAILY EVERY NIGHT 05/22/2015 01/27/2016 Inactive Generic For:REQUIP 1 MG TABLET ropinirole 1 mg tablet RxNorm: 741159 Tablet(s) 1 Tablet(s) PO QPM 05/22/2015 05/21/2015 Inactive pravastatin 10 mg tablet RxNorm: 081124 TAKE 1 TABLET BY MOUTH EVERY NIGHT 05/14/2015 11/06/2015 Inactive Generic For:PRAVACHOL 10 MG TABLET tramadol 50 mg tablet RxNorm: 443776 2 Tablet(s) PO BID 04/25/2015 01/18/2016 Inactive labetalol 100 mg tablet RxNorm: 446670 1 Tablet(s) PO BID 04/09/2015 04/23/2016 Inactive omeprazole 20 mg capsule,delayed release RxNorm: 555499 1 Tablet(s) PO daily 1 Capsule(s) PO daily 03/20/2015 12/10/2015 Inactive Carafate 1 gram tablet RxNorm: 666805 Tablet(s) PO UD 4 times daily x 1 week and then PRN 02/27/2015 02/21/2016 Inactive Xanax 0.25 mg tablet RxNorm: 246056 1 Tablet(s) PO BID PRN as needed 02/08/2015 06/06/2015 Inactive [SAVINGS FOR UNINSURED PATIENTS -- BIN:320085, PCN: ASPROD1, Group: AME08, ID# [id number], Process claim through [employer]can[employer]ored, for questions: . THIS IS NOT INSURANCE.] furosemide 20 mg tablet RxNorm: 754184 1 Tablet(s) PO daily as needed for swelling 10/25/2014 02/21/2015 Inactive ok to fill by Dr. Franklin 10-25-14 Xanax 0.25 mg tablet RxNorm: 212164 1 Tablet(s) PO BID PRN as needed 09/25/2014 01/21/2015 Inactive [SAVINGS FOR UNINSURED PATIENTS -- BIN:076712, PCN: ASPROD1, Group: AME08, ID# [id number], Process claim through [employer]can[employer]ored, for questions: . THIS IS NOT INSURANCE.] pravastatin 10 mg tablet RxNorm: 358551 TAKE 1 TABLET BY MOUTH EVERY NIGHT 09/06/2014 04/03/2015 Inactive Generic For:PRAVACHOL 10 MG TABLET tramadol 50 mg tablet RxNorm: 627922 TAKE 2 TABLETS BY MOUTH TWICE DAILY 08/02/2014 01/15/2016 Inactive Generic For:ULTRAM 50 MG TABLET N O T I C E Last quantity doesn't match original quantity(Response to an electronic controlled substance refill request - [facility] [id number]) tramadol 50 mg tablet RxNorm: 168144 2 Tablet(s) PO BID 08/01/2014 08/02/2014 Inactive acyclovir 400 mg tablet RxNorm: 098920 2 Tablet(s) PO QID 07/16/2014 07/25/2014 Inactive sertraline 100 mg tablet RxNorm: 492272 1 Tablet(s) PO BID 1 Tablet(s) PO BID 06/13/2014 12/09/2014 Inactive sertraline 100 mg tablet RxNorm: 752480 1 Tablet(s) PO BID 06/13/2014 06/12/2014 Inactive magnesium oxide 400 mg tablet RxNorm: 879494 1 Tablet(s) PO daily 05/25/2014 2014 Inactive ropinirole 1 mg tablet RxNorm: 694884 1 Tablet(s) PO QPM 05/25/2014 05/19/2015 Inactive amlodipine 5 mg tablet RxNorm: 027743 1 Tablet(s) PO BID 05/25/2014 05/19/2015 Inactive prednisone 10 mg tablets in a dose pack RxNorm: 841938 1 Tablet(s) PO UD 04/06/2014 04/10/2014 Inactive 6-5-4-3-2-1 Xanax 0.25 mg tablet RxNorm: 203012 1 Tablet(s) PO BID PRN as needed 04/04/2014 07/02/2014 Inactive [SAVINGS FOR UNINSURED PATIENTS -- BIN:932909, PCN: ASPROD1, Group: AME08, ID# [id number], Process claim through Icanbesponsored, for questions: . THIS IS NOT INSURANCE.] prednisone 20 mg tablet RxNorm: 080149 3 Tablet(s) PO daily 04/02/2014 04/05/2014 Inactive [SAVINGS FOR UNINSURED PATIENTS -- BIN:687142, PCN: ASPROD1, Group: AME08, ID# [id number], Process claim through [employer]can[employer]ored, for questions: . THIS IS NOT INSURANCE.] cefdinir 300 mg capsule RxNorm: 299771 1 Capsule(s) PO BID 04/02/2014 04/11/2014 Inactive [SAVINGS FOR UNINSURED PATIENTS -- BIN:259622, PCN: ASPROD1, Group: AME08, ID# [id number], Process claim through MedImp[employer], for questions: . THIS IS NOT INSURANCE.] Kenalog 40 mg/mL suspension for injection RxNorm: 7284121 Milliliter(s) Inj 04/02/2014 04/02/2014 Inactive [SAVINGS FOR UNINSURED PATIENTS -- BIN:587777, PCN: ASPROD1, Group: AME08, ID# [id number], Process claim through [employer], for questions: . THIS IS NOT INSURANCE.] ceftriaxone 500 mg solution for injection RxNorm: 556607 Inj 04/02/2014 04/02/2014 Inactive [SAVINGS FOR UNINSURED PATIENTS -- BIN:341304, PCN: ASPROD1, Group: AME08, ID# [id number], Process claim through MedImp[employer], for questions: . THIS IS NOT INSURANCE.] albuterol sulfate 2.5 mg/0.5 mL solution for nebulization RxNorm: 973386 1 treatment INH QID and as needed for dyspnea 04/02/2014 05/31/2014 Inactive [SAVINGS FOR UNINSURED PATIENTS -- BIN:832370, PCN: ASPROD1, Group: AME08, ID# [id number], Process claim through [employer]Imp[employer], for questions: . THIS IS NOT INSURANCE.] azithromycin 500 mg tablet RxNorm: 856876 1 Tablet(s) PO daily 04/02/2014 04/06/2014 Inactive [SAVINGS FOR UNINSURED PATIENTS -- BIN:719774, PCN: ASPROD1, Group: AME08, ID# [id number], Process claim through MedImpact, for questions: . THIS IS NOT INSURANCE.] omeprazole 20 mg capsule,delayed release RxNorm: 865963 1 Tablet(s) PO daily 1 Capsule(s) PO daily 02/26/2014 06/25/2014 Inactive Xanax 0.25 mg tablet RxNorm: 959611 1 Tablet(s) PO BID PRN as needed 02/01/2014 04/03/2014 Inactive [SAVINGS FOR UNINSURED PATIENTS -- BIN:914009, PCN: ASPROD1, Group: AME08, ID# [id number], Process claim through [employer]Imp[employer], for questions: . THIS IS NOT INSURANCE.] Xanax 0.25 mg tablet RxNorm: 851347 1 Tablet(s) PO HS PRN as needed 01/04/2014 01/31/2014 Inactive [SAVINGS FOR UNINSURED PATIENTS -- BIN:043426, PCN: ASPROD1, Group: AME08, ID# [id number], Process claim through [employer]Imp[employer], for questions: . THIS IS NOT INSURANCE.] pravastatin 10 mg tablet RxNorm: 369688 1 Tablet(s) PO QHS 12/21/2013 12/20/2013 Inactive pravastatin 10 mg tablet RxNorm: 666414 1 Tablet(s) PO QHS 12/21/2013 07/18/2014 Inactive [SAVINGS FOR UNINSURED PATIENTS -- BIN:761089, PCN: ASPROD1, Group: AME08, ID# [id number], Process claim through MedImpact, for questions: . THIS IS NOT INSURANCE.] Hytrin 1 mg tablet RxNorm: 114858 1 Tablet(s) PO BID 12/21/2013 04/08/2015 Inactive [SAVINGS FOR UNINSURED PATIENTS -- BIN:921436, PCN: ASPROD1, Group: AME08, ID# [id number], Process claim through MedImpact, for questions: . THIS IS NOT INSURANCE.] Hytrin 1 mg tablet RxNorm: 790311 1 Tablet(s) PO daily 12/18/2013 12/20/2013 Inactive [SAVINGS FOR UNINSURED PATIENTS -- BIN:579920, PCN: ASPROD1, Group: AME08, ID# [id number], Process claim through MedImpact, for questions: . THIS IS NOT INSURANCE.] sertraline 100 mg tablet RxNorm: 235694 1 Tablet(s) PO QHS 12/14/2013 12/08/2014 Inactive [SAVINGS FOR UNINSURED PATIENTS -- BIN:215139, PCN: ASPROD1, Group: AME08, ID# [id number], Process claim through Ican[employer]ored, for questions: . THIS IS NOT INSURANCE.] Xanax 0.25 mg tablet RxNorm: 831675 1 Tablet(s) PO HS PRN as needed 12/13/2013 01/03/2014 Inactive [SAVINGS FOR UNINSURED PATIENTS -- BIN:706691, PCN: ASPROD1, Group: AME08, ID# [id number], Process claim through Icanbesponsored, for questions: . THIS IS NOT INSURANCE.] tramadol 50 mg tablet RxNorm: 532226 2 Tablet(s) PO BID 11/08/2013 04/24/2015 Inactive Xanax 0.25 mg tablet RxNorm: 603251 1 Tablet(s) PO HS PRN as needed 10/19/2013 10/18/2013 Inactive Xanax 0.25 mg tablet RxNorm: 855772 1 Tablet(s) PO HS PRN as needed 10/19/2013 12/12/2013 Inactive Carafate 1 gram tablet RxNorm: 000550 Tablet(s) PO dissolve 1 tab QID x 1 week, then TID x 1 week, then BID x 1 week 09/07/2013 02/26/2015 Inactive omeprazole 20 mg capsule,delayed release RxNorm: 206092 1 Capsule(s) PO daily 09/07/2013 09/06/2013 Inactive omeprazole 20 mg capsule,delayed release RxNorm: 881245 1 Capsule(s) PO daily 09/07/2013 02/26/2014 Inactive prednisone 10 mg tablet RxNorm: 695811 1 Tablet(s) PO 08/25/2013 12/13/2013 Inactive prednisone taper Zithromax Z-Bon 250 mg tablet RxNorm: 694366 Tablet(s) PO as directed 08/25/2013 12/13/2013 Inactive Zithromax Z-Bon 250 mg tablet RxNorm: 995786 Tablet(s) PO as directed 08/04/2013 08/24/2013 Inactive Xanax 0.25 mg tablet RxNorm: 332296 1 Tablet(s) PO HS PRN 08/01/2013 10/18/2013 Inactive Kenalog 40 mg/mL suspension for injection RxNorm: 2226759 Milliliter(s) Inj 08/01/2013 08/01/2013 Inactive tramadol 50 mg tablet RxNorm: 764058 2 Tablet(s) PO BID 05/02/2013 11/07/2013 Inactive carvedilol 25 mg tablet RxNorm: 956377 1 Tablet(s) PO BID 05/02/2013 12/13/2013 Inactive magnesium oxide 400 mg tablet RxNorm: 403342 1 Tablet(s) PO daily 05/02/2013 04/26/2014 Inactive furosemide 20 mg tablet RxNorm: 217996 2 Tablet(s) PO daily 05/02/2013 2014 Inactive amlodipine 5 mg tablet RxNorm: 835981 1 Tablet(s) PO BID 05/02/2013 04/26/2014 Inactive sertraline 100 mg tablet RxNorm: 991492 1 Tablet(s) PO BID 05/02/2013 12/13/2013 Inactive ropinirole 1 mg tablet RxNorm: 180510 1 Tablet(s) PO QPM 05/02/2013 04/26/2014 Inactive pantoprazole 40 mg tablet,delayed release RxNorm: 211541 1 Tablet(s) PO daily 05/02/2013 2014 Inactive gabapentin 600 mg tablet RxNorm: 703176 1 Tablet(s) PO BID 05/02/2013 2014 Inactive ferrous fumarate 325 mg (106 mg iron) tablet RxNorm: 516084 1 Tablet(s) PO daily No Start Date 2014 Inactive amlodipine 5 mg tablet RxNorm: 037519 1 Tablet(s) PO BID No Start Date 05/01/2013 Inactive Vitamin B-12 2,500 mcg sublingual tablet RxNorm: 284994 1 Tablet(s) SL daily No Start Date 2014 Inactive Zithromax Z-Bon 250 mg tablet RxNorm: 831695 Tablet(s) PO as directed No Start Date 08/03/2013 Inactive sertraline 100 mg tablet RxNorm: 607803 1 Tablet(s) PO BID No Start Date 05/01/2013 Inactive Hytrin 1 mg tablet RxNorm: 605534 1 Tablet(s) PO BID No Start Date 12/17/2013 Inactive potassium chloride ER 10 mEq capsule,extended release RxNorm: 614086 1 Capsule(s) PO QDAY PRN No Start Date 06/17/2016 Inactive Xanax 0.25 mg tablet RxNorm: 300532 1 Tablet(s) PO HS PRN No Start Date 07/31/2013 Inactive gabapentin 600 mg tablet RxNorm: 609095 1 Tablet(s) PO BID No Start Date 05/01/2013 Inactive ropinirole 1 mg tablet RxNorm: 379117 1 Tablet(s) PO QPM No Start Date 05/01/2013 Inactive Vitamin D3 1,000 unit tablet RxNorm: 373346 2 Tablet(s) PO daily No Start Date 09/11/2015 Inactive furosemide 20 mg tablet RxNorm: 979761 1 Tablet(s) PO BID No Start Date 05/01/2013 Inactive tramadol 50 mg tablet RxNorm: 827548 2 Tablet(s) PO BID No Start Date 05/01/2013 Inactive Carafate 1 gram tablet RxNorm: 856898 Tablet(s) PO dissolve 1 tab QID x 1 week, then TID x 1 week, then BID x 1 week No Start Date 09/06/2013 Inactive pantoprazole 40 mg tablet,delayed release RxNorm: 725538 1 Tablet(s) PO daily No Start Date 05/01/2013 Inactive montelukast 10 mg tablet RxNorm: 625612 1 Tablet(s) PO QHS No Start Date 04/23/2016 Inactive magnesium oxide 400 mg tablet RxNorm: 308637 1 Tablet(s) PO daily No Start Date 05/01/2013 Inactive prednisone 10 mg tablet RxNorm: 573707 1 Tablet(s) PO No Start Date 08/24/2013 Inactive prednisone taper carvedilol 25 mg tablet RxNorm: 879598 1 Tablet(s) PO BID No Start Date 05/01/2013 Inactive baclofen 10 mg tablet RxNorm: 519471 2 Tablet(s) PO daily No Start Date 12/13/2013 Inactive Vitamin B Complex capsule RxNorm: 1 Capsule(s) PO daily No Start Date 2014 Inactive Medication Administered Medication Codes Instructions Start Date Status Kenalog 40 mg/mL suspension for injection RxNorm: 9957058 Milliliter 09/15/2016 No longer Active Kenalog 40 mg/mL suspension for injection RxNorm: 7652094 Milliliter 04/02/2014 No longer Active ceftriaxone 500 mg solution for injection RxNorm: 080672 04/02/2014 No longer Active Kenalog 40 mg/mL suspension for injection RxNorm: 7419146 Milliliter 08/01/2013 No longer Active Immunizations Vaccine [...] Code Item Item Code Result Date Mayda 544204 MAYDA (MORTEZA) SCREEN NONE DETECTED 06/22/2016 C-Reactive Protein Qnt Crqnt CRP 0.3 mg/dl 06/19/2016 Sed Rate Ord21 ESR 11 mm/hr 06/19/2016 Ra Factor Zwr095 RA FACTOR <10 IU/ml 06/19/2016 Sed Rate Ord21 ESR 14 mm/hr 02/25/2016 C-Reactive Protein Qnt Crqnt CRP 0.3 mg/dl 02/25/2016 Comp Metabolic Tdp006 NA 136 mEq/L 02/25/2016 Comp Metabolic Gvg518 K 3.9 mEq/L 02/25/2016 Comp Metabolic Qir032 CL 103 mEq/L 02/25/2016 Comp Metabolic Rju283 CO2 27.0 mEq/L 02/25/2016 Comp Metabolic Fuc158 ANION GAP 10 02/25/2016 Comp Metabolic Bpl844 GLUCOSE 82 mg/dL 02/25/2016 Comp Metabolic Tcx608 Creat 1.3 mg/dL 02/25/2016 Comp Metabolic Maj069 eGFR 45 ml/min/1.73m2 02/25/2016 Comp Metabolic Syc544 BUN 13 mg/dL 02/25/2016 Comp Metabolic Fox660 B/C Ratio 10.3 Ratio 02/25/2016 Comp Metabolic Azq812 CALCIUM 9.5 mg/dL 02/25/2016 Comp Metabolic Zhx955 ALK PHOS 70 U/L 02/25/2016 Comp Metabolic Paf948 AST(SGOT) 17 U/L 02/25/2016 Comp Metabolic Rca748 ALT(SGPT) 13 U/L 02/25/2016 Comp Metabolic Ato795 BILI T 0.4 mg/dL 02/25/2016 Comp Metabolic Qbq084 ALBUMIN 4.2 g/dL 02/25/2016 Comp Metabolic Ldj361 TPRO 6.6 g/dL 02/25/2016 Comp Metabolic Glz575 GLOB 2.4 g/dL 02/25/2016 Comp Metabolic Nqt225 A/G Ratio 1.7 Ratio 02/25/2016 Comp Metabolic Zyo382 Osmo 271 mOsmo 02/25/2016 Cbc With Differential [...] 29.1 pg 02/25/2016 Cbc With Differential Ord2 [place]% 6.8 % 02/25/2016 Cbc With Differential Ord2 [...] 1.62 K/ul 02/25/2016 Cbc With Differential Ord2 [place] ABS# 0.4 K/ul 02/25/2016 Cbc With Differential Ord2 Eos ABS# 0.1 K/ul 02/25/2016 Cbc With Differential Ord2 Baso ABS# 0.0 K/ul 02/25/2016 Tsh Ord6 hTSH II 1.63 uIU/mL 02/25/2016 [place] Spotted Fever Igg/Igm 699476 [place] SPOTTED FEVER IGM EIA . 09/17/2015 [place] Spotted Fever Igg/Igm 512344 RMSF, IGM 0.27 index 09/17/2015 [place] Spotted Fever Igg/Igm 607929 BENIG[place] MT SPOTTED FEVER IGG EIA FLEX . 09/17/2015 [place] Spotted Fever Igg/Igm 630506 RMSF, IGG SCREEN-FLEX Negative 09/17/2015 Ehrlichia Chaffeensis Antibody Igm 515528 EHRLICHIA CHAFFEENSIS IGM < 1:16 09/16/2015 Ehrlichia Chaffeensis Antibody Igg 121255 EHRLICHIA CHAFFEENSIS IGG 1:256 09/16/2015 Lymes Disease Total Antibodies With Western Blot Reflex [id number] B. BURGDORFERI, IGG/IGM 0.10 LI 09/14/2015 [facility]ym[facility] Disease Total Antibodies With Western Blot Reflex [id number] 09/14/2015 Vitamin D 25 Oh Tll4525 VITAMIN D, 25 HYDROXY 59.60 ng/mL 09/13/2015 Sed Rate Ord21 ESR 10 mm/hr 09/12/2015 Comp Metabolic Vey405 NA 139 mEq/L 09/12/2015 Comp Metabolic Grz831 K 3.8 mEq/L 09/12/2015 Comp Metabolic Cde011 CL 103 mEq/L 09/12/2015 Comp Metabolic Oyh608 CO2 27.0 mEq/L 09/12/2015 Comp Metabolic Ilx812 ANION GAP 13 09/12/2015 Comp Metabolic Ehl569 GLUCOSE 91 mg/dL 09/12/2015 Comp Metabolic Tjk903 Creat 1.2 mg/dL 09/12/2015 Comp Metabolic Wrk824 eGFR 47 ml/min/1.73m2 09/12/2015 Comp Metabolic Yew014 BUN 20 mg/dL 09/12/2015 Comp Metabolic Bvs845 B/C Ratio 16.3 Ratio 09/12/2015 Comp Metabolic Abr647 CALCIUM 9.3 mg/dL 09/12/2015 Comp Metabolic Ejn884 ALK PHOS 55 U/L 09/12/2015 Comp Metabolic Gqv413 AST(SGOT) 19 U/L 09/12/2015 Comp Metabolic Amc289 ALT(SGPT) 14 U/L 09/12/2015 Comp Metabolic Xoj054 BILI T 0.6 mg/dL 09/12/2015 Comp Metabolic Cef662 ALBUMIN 4.3 g/dL 09/12/2015 Comp Metabolic Vxr126 TPRO 6.8 g/dL 09/12/2015 Comp Metabolic Btu928 GLOB 2.5 g/dL 09/12/2015 Comp Metabolic Nro947 A/G Ratio 1.8 Ratio 09/12/2015 Comp Metabolic Bvl413 Osmo 280 mOsmo 09/12/2015 B12 Klh983 B12 >1500.00 pg/ml 09/12/2015 Cbc With Differential [...] 31.5 % 09/12/2015 Cbc With Differential Ord2 [place]% 5.9 % 09/12/2015 Cbc With Differential Ord2 [...] 1.33 K/ul 09/12/2015 Cbc With Differential Ord2 [place] ABS# 0.3 K/ul 09/12/2015 Cbc With Differential [...] Full Exam - General 1994 Neurologic coordination Hioumo-snwq-rxrfxg testing - left: dysmetria 05/11/2017 None Full Exam - General 1994 Neurologic coordination Xxezok-gehx-ecxfin testing - right: dysmetria 05/11/2017 None Full [...] Full Exam - General 1994 Neurologic coordination Xsdehv-wpun-gvwppd testing - left: dysmetria 04/20/2016 None Full Exam - General 1994 Neurologic coordination Azbozp-rqwj-ocgbug testing - right: dysmetria 04/20/2016 None Full [...] Full Exam - General 1994 Neurologic coordination Nksdum-qaup-jakjzf testing - left: dysmetria 02/25/2016 None Full Exam - General 1994 Neurologic coordination Gpdiwj-kuvv-camsme testing - right: dysmetria 02/25/2016 None Full [...] Full Exam - General 1994 Neurologic coordination Fgzxeo-axla-kxqeiv testing - left: dysmetria 01/28/2016 None Full Exam - General 1994 Neurologic coordination Jhxkxx-ogjr-xupyre testing - right: dysmetria 01/28/2016 None Full [...] palp - head/face Lesion: excoriation 07/16/2014 right gnosticism, redness right eyelid Full Exam - Dermatology [...] Procedure Codes Date THER/PROPH/DIAG INJ SC/IM CPT-4: 34442 09/15/2016 TRIAMCINOLONE ACET INJ NOS CPT-4: J3301 09/15/2016 ADMIN INFLUENZA VIRUS VAC CPT-4: G0008 01/08/2016 ADMIN PNEUMOCOCCAL VACCINE SNOMED CT: 94345439 CPT-4: G0009 01/08/2016 PNEUMOCOCCAL VACC 13 RIVERA IM Formatting Model/CDA Sections, Assigned to/Aliya Muñoz SNOMED CT: 48009770 CPT-4: 11811Nlmvhtv 01/08/2016 FLU VACC 4 RIVERA 3 YRS PLUS IM SNOMED CT: 19611908 CPT-4: 48909 01/08/2016 THER/PROPH/DIAG INJ SC/IM CPT-4: 53842 04/02/2014 TRIAMCINOLONE ACET INJ NOS CPT-4: J3301 04/02/2014 ROCEPHIN, PER 250 MG CPT- 4: J0696 04/02/2014 TRIAMCINOLONE ACET INJ NOS CPT-4: J3301 08/01/2013 THER/PROPH/DIAG INJ SC/IM CPT-4: 17881 08/01/2013 Vital Signs Date Vital 05/11/2017 Blood Pressure 1: 144/90 Code: 8480-6 BMI: 34.6 Code: 46753-9 Heart Rate 1: 76 bpm Height: 5'5" SpO2: 98% Weight: 208 lbs 10/30/2016 Blood Pressure 1: 172/104 Code: 8480-6 Blood Pressure 1: 158/98 Code: 8480-6 BMI: 34.7 Code: 74610-8 Heart Rate 1: 70 bpm Height: 5'5" SpO2: 97% Temperature: 36.2 (C) / 97.1 (F) Weight: 208 lbs 10 oz 04/20/2016 Blood Pressure 1: 144/86 Code: 8480-6 BMI: 34.3 Code: 56239-9 Heart Rate 1: 68 bpm Height: 5'5" SpO2: 97% Weight: 206 lbs 02/25/2016 Blood Pressure 1: 122/82 Code: 8480-6 BMI: 34.4 Code: 82364-3 Heart Rate 1: 86 bpm Height: 5'5" SpO2: 94% Weight: 207 lbs 01/28/2016 Blood Pressure 1: 128/86 Code: 8480-6 BMI: 33.3 Code: 28468-8 Heart Rate 1: 86 bpm Height: 5'5" SpO2: 96% Weight: 200 lbs 11/14/2015 Blood Pressure 1: 138/88 Code: 8480-6 Blood Pressure 1: 140/90 Code: 8480-6 BMI: 33.3 Code: 97480-6 Heart Rate 1: 98 bpm Height: 5'5" SpO2: 97% Weight: 200 lbs 10/10/2015 Blood Pressure 1: 132/80 Code: 8480-6 BMI: 33.3 Code: 68891-1 Heart Rate 1: 74 bpm Height: 5'5" SpO2: 96% Weight: 200 lbs 09/12/2015 Blood Pressure 1: 148/90 Code: 8480-6 BMI: 32.9 Code: 56774-5 Heart Rate 1: 94 bpm Height: 5'5" SpO2: 97% Weight: 198 lbs 04/09/2015 Blood Pressure 1: 130/84 Code: 8480-6 Blood Pressure 1: 160/82 Code: 8480-6 BMI: 32.4 Code: 91483-4 Heart Rate 1: 74 bpm Height: 5'5" SpO2: 95% Weight: 195 lbs 10/05/2014 Blood Pressure 1: 140/80 Code: 8480-6 BMI: 30.5 Code: 52259-6 Heart Rate 1: 79 bpm Height: 5'5" SpO2: 98% Weight: 183 lbs 09/07/2014 Blood Pressure 1: 142/96 Code: 8480-6 BMI: 32.1 Code: 29169-6 Heart Rate 1: 72 bpm Height: 5'5" SpO2: 98% Temperature: 36.5 (C) / 97.7 (F) Weight: 193 lbs 07/16/2014 Blood Pressure 1: 138/82 Code: 8480-6 BMI: 31.8 Code: 53339-8 Heart Rate 1: 76 bpm Height: 5'5" Weight: 191 lbs 04/02/2014 Blood Pressure 1: 148/90 Code: 8480-6 BMI: 33.8 Code: 14052-0 Heart Rate 1: 68 bpm Height: 5'5" Temperature: 36.9 (C) / 98.4 (F) Weight: 203 lbs 12/14/2013 Blood Pressure 1: 140/88 Code: 8480-6 BMI: 35.3 Code: 86439-3 Heart Rate 1: 91 bpm Height: 5'5" SpO2: 97% Weight: 212 lbs 08/01/2013 Blood Pressure 1: 126/68 Code: 8480-6 BMI: 35.1 Code: 13204-9 Heart Rate 1: 76 bpm Height: 5'5" Temperature: 36.7 (C) / 98.1 (F) Weight: 211 lbs 05/02/2013 Blood Pressure 1: 118/86 Code: 8480-6 BMI: 34.9 Code: 57456-5 Heart Rate 1: 76 bpm Height: 5'5" Weight: 209 lbs 8 oz 04/18/2013 Blood Pressure 1: 118/60 Code: 8480-6 BMI: 35.3 Code: 40969-0 Heart Rate 1: 68 bpm Height: 5'5" [...] data Encounters Encounter Performer Location Codes Date 01161 EST. PATIENT, LEVEL IV Diagnosis: Gastro-esophageal reflux disease without esophagitis[ICD10: K21.9] Anais Lao MD, [facility] CPT-4: 65574 05/11/2017 ([id number] 47201 EST. PATIENT, LEVEL III Diagnosis: Essential (primary) hypertension[ICD10: I10] Diagnosis: Contusion of right lower leg, initial encounter[ICD10: S80.11XA] Noa Lao MD, [facility] CPT-4: 31666 10/30/2016 ([id number]) 56767 EST. PATIENT, LEVEL IV Diagnosis: Essential (primary) hypertension[ICD10: I10] Diagnosis: Generalized anxiety disorder[ICD10: F41.1] Marilyn Lao MD, [facility] CPT-4: 58040 04/20/2016 ([id number]) 75566 EST. PATIENT, LEVEL IV Diagnosis: Essential (primary) hypertension[ICD10: I10] Diagnosis: Chronic kidney disease, stage 3 (moderate)[ICD10: N18.3] Diagnosis: Generalized anxiety disorder[ICD10: F41.1] Diagnosis: Major depressive disorder, recurrent, moderate[ICD10: F33.1] Diagnosis: Shortness of breath[ICD10: R06.02] Noa Lao MD, [facility] CPT- 4: 76444 02/25/2016 ([id number]) 19767 EST. PATIENT, LEVEL IV Diagnosis: Generalized anxiety disorder[ICD10: F41.1] Diagnosis: Major depressive disorder, recurrent, moderate[ICD10: F33.1] Diagnosis: Essential (primary) hypertension[ICD10: I10] Diagnosis: Restless legs syndrome[ICD10: G25.81] Diagnosis: Myalgia[ICD10: M79.1] Noa Lao MD, [facility] CPT-4: 33487 01/28/2016 [id number]) 94950 EST. PATIENT, LEVEL III Diagnosis: Essential (primary) hypertension[ICD10: I10] Diagnosis: Insomnia, unspecified[ICD10: G47.00] Noa Lao MD, [facility] CPT-4: 41630 11/14/2015 ([id number]) 19651 EST. 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 PATIENT, LEVEL IV Diagnosis: Bitten or stung by nonvenomous insect and other nonvenomous arthropods, initial encounter[ICD10: W57.XXXA] Diagnosis: Other fatigue[ICD10: R53.83] Diagnosis: Vitamin D deficiency, unspecified[ICD10: E55.9] Diagnosis: Other vitamin B12 deficiency anemias[ICD10: D51.8] Diagnosis: Essential (primary) hypertension[ICD10: I10] Diagnosis: Iron deficiency[ICD10: E61.1] Noa Lao MD, [facility] CPT-4: 82490 09/12/2015 ([id number]) 33510 EST. PATIENT, LEVEL III Diagnosis: Essential (primary) hypertension[ICD10: I10] Diagnosis: Chronic kidney disease, stage 3 (moderate)[ICD10: N18.3] Noa Lao MD, [facility] CPT-4: 82923 04/09/2015 ([id number]) 71331 EST. PATIENT, LEVEL III Diagnosis: ESSENTIAL HYPERTENSION[ICD9: 401.9] Noa Lao MD, [facility] CPT-4: 84122 10/05/2014 ([id number]) 40629 EST. PATIENT, LEVEL IV Diagnosis: Easy bruising[ICD9: 782.9] Diagnosis: Iron deficiency anemia[ICD9: 280.9] Diagnosis: ESSENTIAL HYPERTENSION[ICD9: 401.9] Diagnosis: Chronic kidney disease, stage 3[ICD9: 585.3] Noa Lao MD, [facility] CPT-4: 45824 09/07/2014 ([id number]) 97276 EST. PATIENT, LEVEL III Diagnosis: Shingles[ICD9: 053.9] Marilyn Lao MD, [facility] CPT-4: 00444 07/16/2014 ([id number]) 65354 EST. PATIENT, LEVEL III Diagnosis: PNEUMONIA (CAP)[ICD9: 486] Diagnosis: COUGH[ICD9: 786.2] Marilyn Lao MD, [facility] CPT-4: 79120 04/02/2014 ([id number]) 12994 EST. PATIENT, LEVEL III Diagnosis: ESSENTIAL HYPERTENSION[ICD9: 401.9] Diagnosis: Rib pain on left side[ICD9: 786.50] Diagnosis: EDEMA[ICD9: 782.3] Noa Darion Lao MD, [facility] CPT-4: 03447 12/14/2013 ([id number]) 48231 EST. PATIENT, LEVEL IV Diagnosis: ESOPHAGEAL REFLUX[ICD9: 530.81] Diagnosis: Urge incontinence[ICD9: 788.31] Diagnosis: Elbow pain, right[ICD9: 719.42] Diagnosis: Snoring[ICD9: 786.09] Marilyn Lao MD, [facility] CPT-4: 41257 08/01/2013 ([id number]) 81514 EST. PATIENT, LEVEL IV Diagnosis: ESSENTIAL HYPERTENSION[SNOMED: 54915576] Diagnosis: EDEMA[ICD9: 782.3] Diagnosis: Chronic renal insufficiency, stage III (moderate)[ICD9: 585.3] Diagnosis: HYPERLIPIDEMIA[ICD9: 272.4] Marilyn Lao MD, [facility] CPT-4: 15633 05/02/2013 ([id number] 08413 EST. PATIENT, LEVEL IV Diagnosis: ESSENTIAL HYPERTENSION[SNOMED: 14500527] Diagnosis: Restless leg[ICD9: 333.94] Marilyn Lao MD, [facility] CPT-4: 52364 04/18/2013 Plan of Care Planned Activity Notes Codes Status Date Visit Plan: Esophageal Reflux - the patient has been counseled against excessive intake of caffeine, spicy foods, peppermint, and cinnamon - all of which can exacerbate esophageal reflux. The patient is to take med ications as prescribed and call the office if the symptoms are not improving. 05/11/2017 Appointment: Anais Arrieta WPtel: [address] [place], [place] [address] (15 min) Moderate 05/11/2017 Patient Education: Patient [...] 09/15/2016 Appointment: Marilyn Lao WPtel: [phone] [facility] (15 min) Moderate 08/19/2016 Patient Education: [...] medications. 04/20/2016 App[facility]ment[phone] [facility] [place] (30 min) Complex 04/20/2016 Patient Education: Patient Medication Summary Completed 04/20/2016 Patient Education: Obesity Completed 04/20/2016 Patient Education: Hypertension Completed 04/20/2016 Appointment: [facility] [place] [phone] [place] (30 min) Complex 03/16/2016 Referral: Ta [...] for follow up. Chronic renal disease-check labs [place]-lftddfpvvv-iuhntpxd with cymbalta-continue same dose for now -may take xanax TID PRN Multiple joint pain-check labs including inflammatory markers 02/25/2016 Appointment: Noa Orlando [phone] [phone] (30 min) Complex 02/25/2016 Patient Education: Patient Medication Summary Completed 02/25/2016 Patient Education: Obesity Completed 02/25/2016 Patient Education: Hypertension Completed 02/25/2016 Care Plan: Referral Order SNOMED-CT : [id number] Pending 02/25/2016 Visit Plan: Anxiety/Depression - the [...] in blood pressure readings at home. Restless asp-nzrlkc-wyogkbte requip to twice daily-monitor symptoms Myalgias-stop pravastatin 01/28/2016 Appointment: Noa Orlando [facility]el[phone] [phone] (30 min) Complex 01/28/2016 Patient Education: Patient [...] Completed 10/10/2015 Appointment: [facility]el[facility] [phone] [facility] (15 min) Moderate 10/08/2015 Visit Plan: Hypertension - well controlled - continue with current medications, continue with no added salt diet. Pt has been encouraged to exercise daily. The pt has been advised to call the office if there are any acute concerns about change in blood pressure readings at home. 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 Follow up 04/16/2014 Appointment: Sick 04/03/2014 Visit Plan: Pneumonia - Pt has been diagnosed with pneumonia by physical exam. Antibiotics started. The pt is aware of the diagnosis and the need for acute treatment of this illness. 04/02/2014 Patient Education: Patient Medication Summary Completed 04/02/2014 Appointment: Marilyn Lao WPtel: [facility] S[facility] 12/27/2013 Patient Education: Patient Medication Summary [...] further attempt to reduce peripheral edema. Night zctgta-noecnnh-sevty labs 12/14/2013 Appointment: Follow up 12/14/2013 Patient Education: Patient Medication Summary Completed 12/14/2013 Patient Education: Hypertension Completed 12/14/2013 Appointment: Noa Orlando WPtel: [phone] Sick 12/01/2013 Appointment: Marilyn Lao WPtel: [address] [place], [place] [phone] Sick 11/30/2013 Visit Plan: Allergies - chronic [...] monitor symptoms. 08/01/2013 Appointment: Marilyn Lao WPtel: [facility]4 [facility] Follow up 08/01/2013 Patient Education: Patient [...] as able. 05/02/2013 Appointment: Marilyn Lao WPtel: [phone] [facility] Follow up 05/02/2013 Patient Education: Patient [...] juice. 04/18/2013 Appointment: [facility]el[facility] [phone] [facility] [facility] Patient 04/18/2013 Patient Education: Patient Medication [...] in blood pressure readings at home. Restless ejx-qoufdk-oylymtfi requip to twice daily-monitor symptoms Myalgias-stop pravastatin [...] for follow up. Chronic renal disease-check labs Pvbkdsv-fdqhjkloml-njllhfql with cymbalta-continue same dose for now -may [...] at home. 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 Night dlyadg-kvpjtsy-fkcqs labs
--- OUTSIDE RECORDS SUMMARY | 2018-11-04 16:41 | XMS REPORT | CCD ---
Author Author Marilyn Lao Organization Marilyn Lao MD, [facility] Address [address] [place] [address] Phone Care Team Providers Care Wage Hand Name Role Phone PP Unavailable CCM Unavailable Summary Purpose Interface Exchange Insurance Providers Payer name Policy type / Coverage type Covered democrat ID Effective Begin Date Effective End Date WPS Medicare Part B Medicare Part B [id number] Unknown [employer] and Life Medicare Part B [id number] Unknown Family history Mother Diagnosis Age At [...] Description Effective Dates Tobacco history SNOMED CT: 819213464 Never smoker but had significant smoke exposure during first marriage, [place]. 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 05/02/2013 Marital status Unknown 04/18/[address]: 970127093 Never drinks alcohol 04/18/2013 Has the patient ever used illegal drugs? Unknown Has never used illegal drugs 04/18/2013 Allergies, Adverse Reactions, Alerts Allergies, Adverse Reactions, Alerts data not found Past Medical History Illness Codes Condition Status Onset Date Resolved Date Contusion of right lower leg, initial encounter [...] Problems Condition Codes Effective Dates Condition Status Contusion of right lower leg, initial encounter [...] Instructions Cymbalta 60 mg capsule,delayed release RxNorm: 656302 TAKE ONE CAPSULE BY MOUTH DAILY 05/05/2017 10/31/2017 Active Xanax 0.25 mg tablet RxNorm: 050519 1 Tablet(s) PO TID PRN as needed 02/09/2017 06/08/2017 Active Cymbalta 60 mg capsule,delayed release RxNorm: 748270 TAKE ONE CAPSULE BY MOUTH DAILY 10/28/2016 04/25/2017 Inactive Xanax 0.25 mg tablet RxNorm: 927797 1 Tablet(s) PO TID PRN as needed 10/08/2016 12/06/2016 Inactive NEED TO GIVE #90 WITH NEXT REFILL Kenalog 40 mg/mL suspension for injection RxNorm: 0150999 Milliliter(s) Inj 09/15/2016 09/15/2016 Inactive tramadol 50 mg tablet RxNorm: 649792 Tablet(s) TAKE 2 TABLETS BY MOUTH TWICE DAILY 08/18/2016 02/13/2017 Inactive Generic For:ULTRAM 50 MG TABLET N O T I C E Last quantity doesn't match original quantity(Response to an electronic controlled substance refill request - RxReferenceNumber: [id number]) potassium chloride ER 10 mEq capsule,extended release RxNorm: 590215 TAKE ONE CAPSULE BY MOUTH DAILY NEEDED 08/03/2016 01/29/2017 Inactive furosemide 20 mg tablet RxNorm: 581756 1 Tablet(s) PO daily as needed for swelling 06/18/2016 06/12/2017 Active 2 daily x 1 week then daily potassium chloride ER 10 mEq capsule,extended release RxNorm: 190459 1 Capsule(s) PO QDAY PRN 06/18/2016 08/02/2016 Inactive Carafate 1 gram tablet RxNorm: 199957 1 Tablet(s) PO daily 04/24/2016 04/18/2017 Inactive montelukast 10 mg tablet RxNorm: 831765 1 Tablet(s) PO QHS 04/24/2016 04/18/2017 Inactive omeprazole 20 mg capsule,delayed release RxNorm: 717031 Capsule(s) 1 Capsule(s) PO daily 04/24/2016 04/18/2017 Inactive ropinirole 1 mg tablet RxNorm: 792107 2 Tablet(s) PO QHS 04/24/2016 04/18/2017 Inactive labetalol 100 mg tablet RxNorm: 308997 1 Tablet(s) PO BID 04/24/2016 04/18/2017 Inactive amlodipine 5 mg tablet RxNorm: 776342 Tablet(s) TAKE 1 TABLET BY MOUTH TWICE DAILY 04/24/2016 04/18/2017 Inactive Transferring from [facility] Cymbalta 60 mg capsule,delayed release RxNorm: 580201 1 Capsule(s) PO daily 04/24/2016 10/20/2016 Inactive furosemide 20 mg tablet RxNorm: 327005 1 Tablet(s) PO daily as needed for swelling 04/24/2016 06/17/2016 Inactive Xanax 0.25 mg tablet RxNorm: 683264 1 Tablet(s) PO TID PRN as needed 02/25/2016 03/25/2016 Inactive NEED TO GIVE #90 WITH NEXT REFILL Xanax 0.25 mg tablet RxNorm: 303953 1 Tablet(s) PO BID PRN as needed 02/19/2016 02/24/2016 Inactive [SAVINGS FOR UNINSURED PATIENTS -- BIN:575516, PCN: ASPROD1, Group: AME08, ID# [id number], Process claim through SmartFocus, for questions: . THIS IS NOT INSURANCE.] Cymbalta 60 mg capsule,delayed release RxNorm: 454364 1 Capsule(s) PO daily 01/28/2016 04/23/2016 Inactive ropinirole 1 mg tablet RxNorm: 183408 1 Tablet(s) PO BID TAKE 1 TABLET BY MOUTH DAILY EVERY NIGHT 01/28/2016 04/23/2016 Inactive Generic For:REQUIP 1 MG TABLET tramadol 50 mg tablet RxNorm: 250844 Tablet(s) TAKE 2 TABLETS BY MOUTH TWICE DAILY 01/16/2016 07/13/2016 Inactive Generic For:ULTRAM 50 MG TABLET N O T I C E Last quantity doesn't match original quantity(Response to an electronic controlled substance refill request - RxReferenceNumber: [id number]) omeprazole 20 mg capsule,delayed release RxNorm: 611077 1 Tablet(s) PO daily 1 Capsule(s) PO daily 12/11/2015 04/23/2016 Inactive pravastatin 10 mg tablet RxNorm: 341936 1 Tablet(s) PO QHS TAKE 1 TABLET BY MOUTH EVERY NIGHT 11/28/2015 01/27/2016 Inactive Generic For:PRAVACHOL 10 MG TABLET furosemide 20 mg tablet RxNorm: 514104 1 Tablet(s) PO daily as needed for swelling 11/12/2015 04/23/2016 Inactive pravastatin 10 mg tablet RxNorm: 363570 1 Tablet(s) PO QHS TAKE 1 TABLET BY MOUTH EVERY NIGHT 11/07/2015 11/27/2015 Inactive Generic For:PRAVACHOL 10 MG TABLET Xanax 0.25 mg tablet RxNorm: 422056 1 Tablet(s) PO BID PRN as needed 10/28/2015 01/25/2016 Inactive [SAVINGS FOR UNINSURED PATIENTS -- BIN:805366, PCN: ASPROD1, Group: AME08, ID# [id number], Process claim through SmartFocus, for questions: . THIS IS NOT INSURANCE.] Viberzi 75 mg tablet RxNorm: 4470687 1 Tablet(s) PO BID 10/10/2015 10/10/2015 Inactive doxycycline hyclate 100 mg tablet RxNorm: 648755 1 Tablet(s) PO BID 10/10/2015 10/23/2015 Inactive Vitamins B Complex capsule RxNorm: 1 Capsule(s) PO daily 09/12/2015 No Stop Date Active Vitamin D3 1,000 unit tablet RxNorm: 153865 3-4 Tablet(s) PO daily 09/12/2015 No Stop Date Active Augmentin 500 mg-125 mg tablet RxNorm: 592600 1 Tablet(s) PO BID 07/09/2015 2015 Inactive probiotic one bid x 7 days Augmentin 500 mg-125 mg tablet RxNorm: 928278 1 Tablet(s) PO BID 07/09/2015 07/08/2015 Inactive Xanax 0.25 mg tablet RxNorm: 428763 1 Tablet(s) PO BID PRN as needed 07/01/2015 09/28/2015 Inactive [SAVINGS FOR UNINSURED PATIENTS -- BIN:219681, PCN: ASPROD1, Group: AME08, ID# [id number], Process claim through SmartFocus, for questions: . THIS IS NOT INSURANCE.] sertraline 100 mg tablet RxNorm: 319602 TAKE 1 TABLET BY MOUTH TWICE DAILY 07/01/2015 01/27/2016 Inactive Generic For:*ZOLOFT 100MG TABLET N O T I C E Last quantity doesn't match original quantity amlodipine 5 mg tablet RxNorm: 353412 TAKE 1 TABLET BY MOUTH TWICE DAILY 06/26/2015 04/23/2016 Inactive Generic For:NORVASC 5 MG TABLET N O T I C E Last quantity doesn't match original quantity amlodipine 5 mg tablet RxNorm: 686950 Tablet(s) 1 Tablet(s) PO BID 06/25/2015 06/25/2015 Inactive ropinirole 1 mg tablet RxNorm: 650816 TAKE 1 TABLET BY MOUTH DAILY EVERY NIGHT 05/22/2015 01/27/2016 Inactive Generic For:REQUIP 1 MG TABLET ropinirole 1 mg tablet RxNorm: 478363 Tablet(s) 1 Tablet(s) PO QPM 05/22/2015 05/21/2015 Inactive pravastatin 10 mg tablet RxNorm: 729719 TAKE 1 TABLET BY MOUTH EVERY NIGHT 05/14/2015 11/06/2015 Inactive Generic For:PRAVACHOL 10 MG TABLET tramadol 50 mg tablet RxNorm: 299300 2 Tablet(s) PO BID 04/25/2015 01/18/2016 Inactive labetalol 100 mg tablet RxNorm: 624659 1 Tablet(s) PO BID 04/09/2015 04/23/2016 Inactive omeprazole 20 mg capsule,delayed release RxNorm: 201034 1 Tablet(s) PO daily 1 Capsule(s) PO daily 03/20/2015 12/10/2015 Inactive Carafate 1 gram tablet RxNorm: 468591 Tablet(s) PO UD 4 times daily x 1 week and then PRN 02/27/2015 02/21/2016 Inactive Xanax 0.25 mg tablet RxNorm: 336976 1 Tablet(s) PO BID PRN as needed 02/08/2015 06/06/2015 Inactive [SAVINGS FOR UNINSURED PATIENTS -- BIN:968553, PCN: ASPROD1, Group: AME08, ID# [id number], Process claim through SmartFocus, for questions: . THIS IS NOT INSURANCE.] furosemide 20 mg tablet RxNorm: 984119 1 Tablet(s) PO daily as needed for swelling 10/25/2014 02/21/2015 Inactive ok to fill by Dr. Franklin 10-25-14 Xanax 0.25 mg tablet RxNorm: 906702 1 Tablet(s) PO BID PRN as needed 09/25/2014 01/21/2015 Inactive [SAVINGS FOR UNINSURED PATIENTS -- BIN:003610, PCN: ASPROD1, Group: AME08, ID# [id number], Process claim through SmartFocus, for questions: . THIS IS NOT INSURANCE.] pravastatin 10 mg tablet RxNorm: 771067 TAKE 1 TABLET BY MOUTH EVERY NIGHT 09/06/2014 04/03/2015 Inactive Generic For:PRAVACHOL 10 MG TABLET tramadol 50 mg tablet RxNorm: 416812 TAKE 2 TABLETS BY MOUTH TWICE DAILY 08/02/2014 01/15/2016 Inactive Generic For:ULTRAM 50 MG TABLET N O T I C E Last quantity doesn't match original quantity(Response to an electronic controlled substance refill request - RxReferenceNumber: [id number]) tramadol 50 mg tablet RxNorm: 719780 2 Tablet(s) PO BID 08/01/2014 08/02/2014 Inactive acyclovir 400 mg tablet RxNorm: 570287 2 Tablet(s) PO QID 07/16/2014 07/25/2014 Inactive sertraline 100 mg tablet RxNorm: 804300 1 Tablet(s) PO BID 1 Tablet(s) PO BID 06/13/2014 12/09/2014 Inactive sertraline 100 mg tablet RxNorm: 680103 1 Tablet(s) PO BID 06/13/2014 06/12/2014 Inactive magnesium oxide 400 mg tablet RxNorm: 638316 1 Tablet(s) PO daily 05/25/2014 2014 Inactive ropinirole 1 mg tablet RxNorm: 306643 1 Tablet(s) PO QPM 05/25/2014 05/19/2015 Inactive amlodipine 5 mg tablet RxNorm: 211566 1 Tablet(s) PO BID 05/25/2014 05/19/2015 Inactive prednisone 10 mg tablets in a dose pack RxNorm: 327161 1 Tablet(s) PO UD 04/06/2014 04/10/2014 Inactive 6-5-4-3-2-1 Xanax 0.25 mg tablet RxNorm: 757400 1 Tablet(s) PO BID PRN as needed 04/04/2014 07/02/2014 Inactive [SAVINGS FOR UNINSURED PATIENTS -- BIN:981312, PCN: ASPROD1, Group: AME08, ID# [id number], Process claim through SmartFocus, for questions: . THIS IS NOT INSURANCE.] prednisone 20 mg tablet RxNorm: 674403 3 Tablet(s) PO daily 04/02/2014 04/05/2014 Inactive [SAVINGS FOR UNINSURED PATIENTS -- BIN:506998, PCN: ASPROD1, Group: AME08, ID# [id number], Process claim through MedImpact, for questions: . THIS IS NOT INSURANCE.] cefdinir 300 mg capsule RxNorm: 758631 1 Capsule(s) PO BID 04/02/2014 04/11/2014 Inactive [SAVINGS FOR UNINSURED PATIENTS -- BIN:504966, PCN: ASPROD1, Group: AME08, ID# [id number], Process claim through MedImpact, for questions: . THIS IS NOT INSURANCE.] Kenalog 40 mg/mL suspension for injection RxNorm: 8588739 Milliliter(s) Inj 04/02/2014 04/02/2014 Inactive [SAVINGS FOR UNINSURED PATIENTS -- BIN:809357, PCN: ASPROD1, Group: AME08, ID# [id number], Process claim through MedImpact, for questions: . THIS IS NOT INSURANCE.] ceftriaxone 500 mg solution for injection RxNorm: 621925 Inj 04/02/2014 04/02/2014 Inactive [SAVINGS FOR UNINSURED PATIENTS -- BIN:073380, PCN: ASPROD1, Group: AME08, ID# [id number], Process claim through MedImpact, for questions: . THIS IS NOT INSURANCE.] albuterol sulfate 2.5 mg/0.5 mL solution for nebulization RxNorm: 234049 1 treatment INH QID and as needed for dyspnea 04/02/2014 05/31/2014 Inactive [SAVINGS FOR UNINSURED PATIENTS -- BIN:858410, PCN: ASPROD1, Group: AME08, ID# [id number], Process claim through MedImpact, for questions: . THIS IS NOT INSURANCE.] azithromycin 500 mg tablet RxNorm: 381013 1 Tablet(s) PO daily 04/02/2014 04/06/2014 Inactive [SAVINGS FOR UNINSURED PATIENTS -- BIN:023412, PCN: ASPROD1, Group: AME08, ID# [id number], Process claim through MedImpact, for questions: . THIS IS NOT INSURANCE.] omeprazole 20 mg capsule,delayed release RxNorm: 517610 1 Tablet(s) PO daily 1 Capsule(s) PO daily 02/26/2014 06/25/2014 Inactive Xanax 0.25 mg tablet RxNorm: 364859 1 Tablet(s) PO BID PRN as needed 02/01/2014 04/03/2014 Inactive [SAVINGS FOR UNINSURED PATIENTS -- BIN:068519, PCN: ASPROD1, Group: AME08, ID# [id number], Process claim through MedImpact, for questions: . THIS IS NOT INSURANCE.] Xanax 0.25 mg tablet RxNorm: 442119 1 Tablet(s) PO HS PRN as needed 01/04/2014 01/31/2014 Inactive [SAVINGS FOR UNINSURED PATIENTS -- BIN:269544, PCN: ASPROD1, Group: AME08, ID# [id number], Process claim through MedImpact, for questions: . THIS IS NOT INSURANCE.] pravastatin 10 mg tablet RxNorm: 583883 1 Tablet(s) PO QHS 12/21/2013 12/20/2013 Inactive pravastatin 10 mg tablet RxNorm: 291294 1 Tablet(s) PO QHS 12/21/2013 07/18/2014 Inactive [SAVINGS FOR UNINSURED PATIENTS -- BIN:228182, PCN: ASPROD1, Group: AME08, ID# [id number], Process claim through MedImpact, for questions: . THIS IS NOT INSURANCE.] Hytrin 1 mg tablet RxNorm: 423323 1 Tablet(s) PO BID 12/21/2013 04/08/2015 Inactive [SAVINGS FOR UNINSURED PATIENTS -- BIN:092837, PCN: ASPROD1, Group: AME08, ID# [id number], Process claim through MedImpact, for questions: . THIS IS NOT INSURANCE.] Hytrin 1 mg tablet RxNorm: 446534 1 Tablet(s) PO daily 12/18/2013 12/20/2013 Inactive [SAVINGS FOR UNINSURED PATIENTS -- BIN:949677, PCN: ASPROD1, Group: AME08, ID# [id number], Process claim through MedImpact, for questions: . THIS IS NOT INSURANCE.] sertraline 100 mg tablet RxNorm: 294258 1 Tablet(s) PO QHS 12/14/2013 12/08/2014 Inactive [SAVINGS FOR UNINSURED PATIENTS -- BIN:000099, PCN: ASPROD1, Group: AME08, ID# [id number], Process claim through MedImpact, for questions: . THIS IS NOT INSURANCE.] Xanax 0.25 mg tablet RxNorm: 692299 1 Tablet(s) PO HS PRN as needed 12/13/2013 01/03/2014 Inactive [SAVINGS FOR UNINSURED PATIENTS -- BIN:354136, PCN: ASPROD1, Group: AME08, ID# [id number], Process claim through SmartFocus, for questions: . THIS IS NOT INSURANCE.] tramadol 50 mg tablet RxNorm: 504826 2 Tablet(s) PO BID 11/08/2013 04/24/2015 Inactive Xanax 0.25 mg tablet RxNorm: 121124 1 Tablet(s) PO HS PRN as needed 10/19/2013 10/18/2013 Inactive Xanax 0.25 mg tablet RxNorm: 608931 1 Tablet(s) PO HS PRN as needed 10/19/2013 12/12/2013 Inactive Carafate 1 gram tablet RxNorm: 477384 Tablet(s) PO dissolve 1 tab QID x 1 week, then TID x 1 week, then BID x 1 week 09/07/2013 02/26/2015 Inactive omeprazole 20 mg capsule,delayed release RxNorm: 046396 1 Capsule(s) PO daily 09/07/2013 09/06/2013 Inactive omeprazole 20 mg capsule,delayed release RxNorm: 653956 1 Capsule(s) PO daily 09/07/2013 02/26/2014 Inactive prednisone 10 mg tablet RxNorm: 864700 1 Tablet(s) PO 08/25/2013 12/13/2013 Inactive prednisone taper Zithromax Z-Bon 250 mg tablet RxNorm: 744134 Tablet(s) PO as directed 08/25/2013 12/13/2013 Inactive Zithromax Z-Bon 250 mg tablet RxNorm: 781499 Tablet(s) PO as directed 08/04/2013 08/24/2013 Inactive Xanax 0.25 mg tablet RxNorm: 118240 1 Tablet(s) PO HS PRN 08/01/2013 10/18/2013 Inactive Kenalog 40 mg/mL suspension for injection RxNorm: 7564617 Milliliter(s) Inj 08/01/2013 08/01/2013 Inactive tramadol 50 mg tablet RxNorm: 293134 2 Tablet(s) PO BID 05/02/2013 11/07/2013 Inactive carvedilol 25 mg tablet RxNorm: 658084 1 Tablet(s) PO BID 05/02/2013 12/13/2013 Inactive magnesium oxide 400 mg tablet RxNorm: 603139 1 Tablet(s) PO daily 05/02/2013 04/26/2014 Inactive furosemide 20 mg tablet RxNorm: 798409 2 Tablet(s) PO daily 05/02/2013 2014 Inactive amlodipine 5 mg tablet RxNorm: 238825 1 Tablet(s) PO BID 05/02/2013 04/26/2014 Inactive sertraline 100 mg tablet RxNorm: 101755 1 Tablet(s) PO BID 05/02/2013 12/13/2013 Inactive ropinirole 1 mg tablet RxNorm: 122382 1 Tablet(s) PO QPM 05/02/2013 04/26/2014 Inactive pantoprazole 40 mg tablet,delayed release RxNorm: 562127 1 Tablet(s) PO daily 05/02/2013 2014 Inactive gabapentin 600 mg tablet RxNorm: 546935 1 Tablet(s) PO BID 05/02/2013 2014 Inactive ferrous fumarate 325 mg (106 mg iron) tablet RxNorm: 225017 1 Tablet(s) PO daily No Start Date 2014 Inactive amlodipine 5 mg tablet RxNorm: 641015 1 Tablet(s) PO BID No Start Date 05/01/2013 Inactive Vitamin B-12 2,500 mcg sublingual tablet RxNorm: 947183 1 Tablet(s) SL daily No Start Date 2014 Inactive Zithromax Z-Bon 250 mg tablet RxNorm: 980285 Tablet(s) PO as directed No Start Date 08/03/2013 Inactive sertraline 100 mg tablet RxNorm: 769187 1 Tablet(s) PO BID No Start Date 05/01/2013 Inactive Hytrin 1 mg tablet RxNorm: 315754 1 Tablet(s) PO BID No Start Date 12/17/2013 Inactive potassium chloride ER 10 mEq capsule,extended release RxNorm: 204750 1 Capsule(s) PO QDAY PRN No Start Date 06/17/2016 Inactive Xanax 0.25 mg tablet RxNorm: 051063 1 Tablet(s) PO HS PRN No Start Date 07/31/2013 Inactive gabapentin 600 mg tablet RxNorm: 016177 1 Tablet(s) PO BID No Start Date 05/01/2013 Inactive ropinirole 1 mg tablet RxNorm: 205296 1 Tablet(s) PO QPM No Start Date 05/01/2013 Inactive Vitamin D3 1,000 unit tablet RxNorm: 395291 2 Tablet(s) PO daily No Start Date 09/11/2015 Inactive furosemide 20 mg tablet RxNorm: 256951 1 Tablet(s) PO BID No Start Date 05/01/2013 Inactive tramadol 50 mg tablet RxNorm: 069546 2 Tablet(s) PO BID No Start Date 05/01/2013 Inactive Carafate 1 gram tablet RxNorm: 606676 Tablet(s) PO dissolve 1 tab QID x 1 week, then TID x 1 week, then BID x 1 week No Start Date 09/06/2013 Inactive pantoprazole 40 mg tablet,delayed release RxNorm: 608172 1 Tablet(s) PO daily No Start Date 05/01/2013 Inactive montelukast 10 mg tablet RxNorm: 276841 1 Tablet(s) PO QHS No Start Date 04/23/2016 Inactive magnesium oxide 400 mg tablet RxNorm: 687406 1 Tablet(s) PO daily No Start Date 05/01/2013 Inactive prednisone 10 mg tablet RxNorm: 882443 1 Tablet(s) PO No Start Date 08/24/2013 Inactive prednisone taper carvedilol 25 mg tablet RxNorm: 105053 1 Tablet(s) PO BID No Start Date 05/01/2013 Inactive baclofen 10 mg tablet RxNorm: 129472 2 Tablet(s) PO daily No Start Date 12/13/2013 Inactive Vitamin B Complex capsule RxNorm: 1 Capsule(s) PO daily No Start Date 2014 Inactive Medication Administered Medication Codes Instructions Start Date Status Kenalog 40 mg/mL suspension for injection RxNorm: 6348769 Milliliter 09/15/2016 No longer Active Kenalog 40 mg/mL suspension for injection RxNorm: 1040522 Milliliter 04/02/2014 No longer Active ceftriaxone 500 mg solution for injection RxNorm: 436255 04/02/2014 No longer Active Kenalog 40 mg/mL suspension for injection RxNorm: 6504303 Milliliter 08/01/2013 No longer Active Immunizations Vaccine Codes Date Status Influenza CVX: 141 01/08/2016 completed Pneumococcal (Adult) CVX: 133 01/08/2016 completed Influenza CVX: 141 01/26/2013 completed Pneumococcal CVX: 33 02/26/2012 completed Tetanus, Diptheria, Pertussis CVX: 113 02/26/2012 completed Tetanus/Diptheria CVX: 113 02/26/2012 completed Assessments Condition Codes Effective Dates Essential (primary) hypertension ICD-10: I10 ICD-9: 401.9 [...] Visit Reason For Visit Effective Dates Notes sores 10/30/2016 anxiety 04/20/2016 anxiety 02/25/2016 anxiety 01/28/2016 vaccination against influenza 01/08/2016 fatigue 11/14/2015 fatigue 10/10/2015 fatigue 09/12/2015 blood pressure followup 04/09/2015 shortness of breath 10/05/2014 fatigue 09/07/2014 eyelid pain 07/16/2014 cough 04/02/2014 101.5 [place] diaphoresis 12/14/2013 cough 08/01/2013 hypertension 05/02/2013 hypertension 04/18/2013 Results Observation Observation Code Item Item Code Result Date Mayda 011849 MAYDA (MORTEZA) SCREEN NONE DETECTED 06/22/2016 C-Reactive Protein Qnt Crqnt CRP 0.3 mg/dl 06/19/2016 Sed Rate Ord21 ESR 11 mm/hr 06/19/2016 Ra Factor Jsp212 RA FACTOR <10 IU/ml 06/19/2016 Sed Rate Ord21 ESR 14 mm/hr 02/25/2016 C-Reactive Protein Qnt Crqnt CRP 0.3 mg/dl 02/25/2016 Comp Metabolic Zub874 NA 136 mEq/L 02/25/2016 Comp Metabolic Qyr476 K 3.9 mEq/L 02/25/2016 Comp Metabolic Omj964 CL 103 mEq/L 02/25/2016 Comp Metabolic Zri160 CO2 27.0 mEq/L 02/25/2016 Comp Metabolic Rlx481 ANION GAP 10 02/25/2016 Comp Metabolic Nqd406 GLUCOSE 82 mg/dL 02/25/2016 Comp Metabolic Igj258 Creat 1.3 mg/dL 02/25/2016 Comp Metabolic Nwq483 eGFR 45 ml/min/1.73m2 02/25/2016 Comp Metabolic Eqh018 BUN 13 mg/dL 02/25/2016 Comp Metabolic Ibi350 B/C Ratio 10.3 Ratio 02/25/2016 Comp Metabolic Tjh641 CALCIUM 9.5 mg/dL 02/25/2016 Comp Metabolic Kzo080 ALK PHOS 70 U/L 02/25/2016 Comp Metabolic Wuz175 AST(SGOT) 17 U/L 02/25/2016 Comp Metabolic Ggn264 ALT(SGPT) 13 U/L 02/25/2016 Comp Metabolic Vjt259 BILI T 0.4 mg/dL 02/25/2016 Comp Metabolic Cwy592 ALBUMIN 4.2 g/dL 02/25/2016 Comp Metabolic Hul905 TPRO 6.6 g/dL 02/25/2016 Comp Metabolic Kpo796 GLOB 2.4 g/dL 02/25/2016 Comp Metabolic Adr874 A/G Ratio 1.7 Ratio 02/25/2016 Comp Metabolic Dlw574 Osmo 271 mOsmo 02/25/2016 Cbc With Differential [...] 29.1 pg 02/25/2016 Cbc With Differential Ord2 Dade% 6.8 % 02/25/2016 Cbc With Differential Ord2 [...] 1.62 K/ul 02/25/2016 Cbc With Differential Ord2 [place] ABS# 0.4 K/ul 02/25/2016 Cbc With Differential Ord2 Eos ABS# 0.1 K/ul 02/25/2016 Cbc With Differential Ord2 Baso ABS# 0.0 K/ul 02/25/2016 Tsh Ord6 hTSH II 1.63 uIU/mL 02/25/2016 [place] Spotted Fever Igg/Igm [id number] [place] SPOTTED FEVER IGM EIA . 09/17/2015 [place] Spotted Fever Igg/Igm 702297 RMSF, IGM 0.27 index 09/17/2015 [place] Spotted Fever Igg/Igm 422119 BENIG[place] SPOTTED FEVER IGG EIA FLEX . 09/17/2015 [place] Spotted Fever Igg/Igm 194188 RMSF, IGG SCREEN-FLEX Negative 09/17/2015 Ehrlichia Chaffeensis Antibody Igm 564038 EHRLICHIA CHAFFEENSIS IGM < 1:16 09/16/2015 Ehrlichia Chaffeensis Antibody Igg 042909 EHRLICHIA CHAFFEENSIS IGG 1:256 09/16/2015 Lymes Disease Total Antibodies With Western Blot Reflex [id number] B. BURGDORFERI, IGG/IGM 0.10 LI 09/14/2015 Lymes Disease Total Antibodies With Western Blot Reflex [id number] 09/14/2015 Vitamin D 25 Oh Sql0373 VITAMIN D, 25 HYDROXY 59.60 ng/mL 09/13/2015 Sed Rate Ord21 ESR 10 mm/hr 09/12/2015 Comp Metabolic Gql714 NA 139 mEq/L 09/12/2015 Comp Metabolic Btr200 K 3.8 mEq/L 09/12/2015 Comp Metabolic Xvp081 CL 103 mEq/L 09/12/2015 Comp Metabolic Wdu146 CO2 27.0 mEq/L 09/12/2015 Comp Metabolic Ymg281 ANION GAP 13 09/12/2015 Comp Metabolic Vew410 GLUCOSE 91 mg/dL 09/12/2015 Comp Metabolic Uhm769 Creat 1.2 mg/dL 09/12/2015 Comp Metabolic Mad656 eGFR 47 ml/min/1.73m2 09/12/2015 Comp Metabolic Wha758 BUN 20 mg/dL 09/12/2015 Comp Metabolic Rdv257 B/C Ratio 16.3 Ratio 09/12/2015 Comp Metabolic Qlf058 CALCIUM 9.3 mg/dL 09/12/2015 Comp Metabolic Fll318 ALK PHOS 55 U/L 09/12/2015 Comp Metabolic Dne179 AST(SGOT) 19 U/L 09/12/2015 Comp Metabolic Fkg477 ALT(SGPT) 14 U/L 09/12/2015 Comp Metabolic Lec458 BILI T 0.6 mg/dL 09/12/2015 Comp Metabolic Bkz426 ALBUMIN 4.3 g/dL 09/12/2015 Comp Metabolic Hjj749 TPRO 6.8 g/dL 09/12/2015 Comp Metabolic Hbw123 GLOB 2.5 g/dL 09/12/2015 Comp Metabolic Amw084 A/G Ratio 1.8 Ratio 09/12/2015 Comp Metabolic Kty741 Osmo 280 mOsmo 09/12/2015 B12 Bio810 B12 >1500.00 pg/ml 09/12/2015 Cbc With Differential [...] 31.5 % 09/12/2015 Cbc With Differential Ord2 [place]% 5.9 % 09/12/2015 Cbc With Differential Ord2 [...] 1.33 K/ul 09/12/2015 Cbc With Differential Ord2 [place] ABS# 0.3 K/ul 09/12/2015 Cbc With Differential Ord2 Eos ABS# 0.1 K/ul 09/12/2015 Cbc With Differential Ord2 Baso ABS# 0.0 K/ul 09/12/2015 Tsh Ord6 hTSH II 1.88 uIU/mL 09/12/2015 Review of Systems System Result Effective Dates Constitutional No recent illness 10/30/2016 Constitutional No [...] Full Exam - General 1994 Neurologic coordination Tiihky-dhaf-venhfy testing - left: dysmetria 04/20/2016 None Full Exam - General 1994 Neurologic coordination Hsescy-wwpb-jbltkg testing - right: dysmetria 04/20/2016 None Full [...] Full Exam - General 1994 Neurologic coordination Fpqvis-zgny-noblme testing - left: dysmetria 02/25/2016 None Full Exam - General 1994 Neurologic coordination Mftvco-lrfd-pkwgev testing - right: dysmetria 02/25/2016 None Full [...] Full Exam - General 1994 Neurologic coordination Ibdnkj-abva-tnvfyy testing - left: dysmetria 01/28/2016 None Full Exam - General 1994 Neurologic coordination Clircm-mgon-tfzlmz testing - right: dysmetria 01/28/2016 None Full [...] palp - head/face Lesion: excoriation 07/16/2014 right rastafari, redness right eyelid Full Exam - Dermatology [...] 1995 Ears/Nose/Throat oral cavity/pharynx/larynx Overall: hypopharynx benign 08/01/2013 [...] General 1995 Ears/Nose/Throat lips/teeth/gingiva Overall: benign lips 05/02/2013 None [...] Procedure Codes Date THER/PROPH/DIAG INJ SC/IM CPT-4: 49221 09/15/2016 TRIAMCINOLONE ACET INJ NOS CPT-4: J3301 09/15/2016 ADMIN INFLUENZA VIRUS VAC CPT-4: G0008 01/08/2016 ADMIN PNEUMOCOCCAL VACCINE SNOMED CT: 94216217 CPT-4: G0009 01/08/2016 PNEUMOCOCCAL VACC 13 RIVERA IM Formatting Model/CDA Sections, Assigned to/Aliya Muñoz SNOMED CT: 95804710 CPT-4: 49554Ikwzpcl 01/08/2016 FLU VACC 4 RIVERA 3 YRS PLUS IM SNOMED CT: [id number] CPT-4: 36000 01/08/2016 THER/PROPH/DIAG INJ SC/IM CPT-4: 97262 04/02/2014 TRIAMCINOLONE ACET INJ NOS CPT-4: J3301 04/02/2014 ROCEPHIN, PER 250 MG CPT- 4: J0696 04/02/2014 TRIAMCINOLONE ACET INJ NOS CPT-4: J3301 08/01/2013 THER/PROPH/DIAG INJ SC/IM CPT-4: 50283 08/01/2013 Vital Signs Date Vital 10/30/2016 Blood Pressure 1: 172/104 Code: 8480-6 Blood Pressure 1: 158/98 Code: 8480-6 BMI: 34.7 Code: 87557-3 Heart Rate 1: 70 bpm Height: 5'5" SpO2: 97% Temperature: 36.2 (C) / 97.1 (F) Weight: 208 lbs 10 oz 04/20/2016 Blood Pressure 1: 144/86 Code: 8480-6 BMI: 34.3 Code: 00602-6 Heart Rate 1: 68 bpm Height: 5'5" SpO2: 97% Weight: 206 lbs 02/25/2016 Blood Pressure 1: 122/82 Code: 8480-6 BMI: 34.4 Code: 76185-8 Heart Rate 1: 86 bpm Height: 5'5" SpO2: 94% Weight: 207 lbs 01/28/2016 Blood Pressure 1: 128/86 Code: 8480-6 BMI: 33.3 Code: 06020-6 Heart Rate 1: 86 bpm Height: 5'5" SpO2: 96% Weight: 200 lbs 11/14/2015 Blood Pressure 1: 138/88 Code: 8480-6 Blood Pressure 1: 140/90 Code: 8480-6 BMI: 33.3 Code: 59824-4 Heart Rate 1: 98 bpm Height: 5'5" SpO2: 97% Weight: 200 lbs 10/10/2015 Blood Pressure 1: 132/80 Code: 8480-6 BMI: 33.3 Code: 15898-9 Heart Rate 1: 74 bpm Height: 5'5" SpO2: 96% Weight: 200 lbs 09/12/2015 Blood Pressure 1: 148/90 Code: 8480-6 BMI: 32.9 Code: 17506-1 Heart Rate 1: 94 bpm Height: 5'5" SpO2: 97% Weight: 198 lbs 04/09/2015 Blood Pressure 1: 130/84 Code: 8480-6 Blood Pressure 1: 160/82 Code: 8480-6 BMI: 32.4 Code: 36667-0 Heart Rate 1: 74 bpm Height: 5'5" SpO2: 95% Weight: 195 lbs 10/05/2014 Blood Pressure 1: 140/80 Code: 8480-6 BMI: 30.5 Code: 01908-2 Heart Rate 1: 79 bpm Height: 5'5" SpO2: 98% Weight: 183 lbs 09/07/2014 Blood Pressure 1: 142/96 Code: 8480-6 BMI: 32.1 Code: 20917-5 Heart Rate 1: 72 bpm Height: 5'5" SpO2: 98% Temperature: 36.5 (C) / 97.7 (F) Weight: 193 lbs 07/16/2014 Blood Pressure 1: 138/82 Code: 8480-6 BMI: 31.8 Code: 86636-4 Heart Rate 1: 76 bpm Height: 5'5" Weight: 191 lbs 04/02/2014 Blood Pressure 1: 148/90 Code: 8480-6 BMI: 33.8 Code: 02205-6 Heart Rate 1: 68 bpm Height: 5'5" Temperature: 36.9 (C) / 98.4 (F) Weight: 203 lbs 12/14/2013 Blood Pressure 1: 140/88 Code: 8480-6 BMI: 35.3 Code: 60149-1 Heart Rate 1: 91 bpm Height: 5'5" SpO2: 97% Weight: 212 lbs 08/01/2013 Blood Pressure 1: 126/68 Code: 8480-6 BMI: 35.1 Code: 01227-2 Heart Rate 1: 76 bpm Height: 5'5" Temperature: 36.7 (C) / 98.1 (F) Weight: 211 lbs 05/02/2013 Blood Pressure 1: 118/86 Code: 8480-6 BMI: 34.9 Code: 55875-3 Heart Rate 1: 76 bpm Height: 5'5" Weight: 209 lbs 8 oz 04/18/2013 Blood Pressure 1: 118/60 Code: 8480-6 BMI: 35.3 Code: 11379-3 Heart Rate 1: 68 bpm Height: 5'5" Weight: 212 lbs Functional Status No Functional Status data History of Present Illness Symptom Name Status Result Effective Date Notes sores Location-Major on the legs 10/30/2016 None [...] data Encounters Encounter Performer Location Codes Date ([id number]) 92269 EST. PATIENT, LEVEL III Diagnosis: Essential (primary) hypertension[ICD10: I10] Diagnosis: Contusion of right lower leg, initial encounter[ICD10: S80.11XA] Noa Lao MD, [facility] CPT-4: 30447 10/30/2016 ([id number]) 27202 EST. PATIENT, LEVEL IV Diagnosis: Essential (primary) hypertension[ICD10: I10] Diagnosis: Generalized anxiety disorder[ICD10: F41.1] Marilyn Lao MD, [facility] CPT-4: 39842 04/20/2016 [id number]) 40460 EST. PATIENT, LEVEL IV Diagnosis: Essential (primary) hypertension[ICD10: I10] Diagnosis: Chronic kidney disease, stage 3 (moderate)[ICD10: N18.3] Diagnosis: Generalized anxiety disorder[ICD10: F41.1] Diagnosis: Major depressive disorder, recurrent, moderate[ICD10: F33.1] Diagnosis: Shortness of breath[ICD10: R06.02] Noa Lao MD, [facility] CPT- 4: 75024 02/25/2016 ([id number]) 24593 EST. PATIENT, LEVEL IV Diagnosis: Generalized anxiety disorder[ICD10: F41.1] Diagnosis: Major depressive disorder, recurrent, moderate[ICD10: F33.1] Diagnosis: Essential (primary) hypertension[ICD10: I10] Diagnosis: Restless legs syndrome[ICD10: G25.81] Diagnosis: Myalgia[ICD10: M79.1] Noa Lao MD, [facility] CPT-4: 50806 01/28/2016 ([id number]) 78918 EST. PATIENT, LEVEL III Diagnosis: Essential (primary) hypertension[ICD10: I10] Diagnosis: Insomnia, unspecified[ICD10: G47.00] Noa Lao MD, [facility] CPT-4: 88509 11/14/2015 ([id number]) 97085 EST. 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 PATIENT, LEVEL IV Diagnosis: Bitten or stung by nonvenomous insect and other nonvenomous arthropods, initial encounter[ICD10: W57.XXXA] Diagnosis: Other fatigue[ICD10: R53.83] Diagnosis: Vitamin D deficiency, unspecified[ICD10: E55.9] Diagnosis: Other vitamin B12 deficiency anemias[ICD10: D51.8] Diagnosis: Essential (primary) hypertension[ICD10: I10] Diagnosis: Iron deficiency[ICD10: E61.1] Noa Lao MD, [facility] CPT-4: 96037 09/12/2015 ([id number]) 54983 EST. PATIENT, LEVEL III Diagnosis: Essential (primary) hypertension[ICD10: I10] Diagnosis: Chronic kidney disease, stage 3 (moderate)[ICD10: N18.3] [facility] CPT-4: 51926 04/09/2015 ([id number]) 33794 EST. PATIENT, LEVEL III Diagnosis: ESSENTIAL HYPERTENSION[ICD9: 401.9] [facility] CPT-4: 03704 10/05/2014 ([id number]) 92103 EST. PATIENT, LEVEL IV Diagnosis: Easy bruising[ICD9: 782.9] Diagnosis: Iron deficiency anemia[ICD9: 280.9] Diagnosis: ESSENTIAL HYPERTENSION[ICD9: 401.9] Diagnosis: Chronic kidney disease, stage 3[ICD9: 585.3] Noa Lao MD [facility] CPT-4: 64236 09/07/2014 ([id number]) 09938 EST. PATIENT, LEVEL III Diagnosis: Shingles[ICD9: 053.9] Marilyn Lao MD [facility] CPT-4: 56239 07/16/2014 ([id number]) 80351 EST. PATIENT, LEVEL III Diagnosis: PNEUMONIA (CAP)[ICD9: 486] Diagnosis: COUGH[ICD9: 786.2] Marilyn Lao MD [facility] CPT-4: 70244 04/02/2014 ([id number]) 42954 EST. PATIENT, LEVEL III Diagnosis: ESSENTIAL HYPERTENSION[ICD9: 401.9] Diagnosis: Rib pain on left side[ICD9: 786.50] Diagnosis: EDEMA[ICD9: 782.3] Noa Lao MD [facility] CPT-4: 01938 12/14/2013 ([id number]) 22973 EST. PATIENT, LEVEL IV Diagnosis: ESOPHAGEAL REFLUX[ICD9: 530.81] Diagnosis: Urge incontinence[ICD9: 788.31] Diagnosis: Elbow pain, right[ICD9: 719.42] Diagnosis: Snoring[ICD9: 786.09] Marilyn Lao MD [facility] CPT-4: 31407 08/01/2013 ([id number]) 50063 EST. PATIENT, LEVEL IV Diagnosis: ESSENTIAL HYPERTENSION[SNOMED: 55043392] Diagnosis: EDEMA[ICD9: 782.3] Diagnosis: Chronic renal insufficiency, stage III (moderate)[ICD9: 585.3] Diagnosis: HYPERLIPIDEMIA[ICD9: 272.4] Marilyn Lao MD [facility] CPT-4: 48938 05/02/2013 ([id number]) 43767 EST. PATIENT, LEVEL IV Diagnosis: ESSENTIAL HYPERTENSION[SNOMED: 20930310] Diagnosis: Restless leg[ICD9: 333.94] Marilyn Lao MD [facility] CPT-4: 23288 04/18/2013 Plan of Care Planned Activity Notes Codes Status Date Patient Education: Patient Medication Summary Completed 10/30/2016 Patient Education: Obesity Completed 10/30/2016 Appointment: Injection 09/15/2016 Patient Education: Patient Medication Summary Completed 09/15/2016 Appointment: [facility] [phone] [facility] [place] (15 min) Moderate 08/19/2016 Patient Education: Patient Medication Summary Completed 06/19/2016 Appointment: [facility] [phone] [facility] [place] (30 min) Complex 04/20/2016 Patient Education: Patient Medication Summary Completed 04/20/2016 Patient Education: Obesity Completed 04/20/2016 Patient Education: Hypertension Completed 04/20/2016 [facility] [phone] [phone] [place] (30 min) Complex 03/16/2016 Referral: Ta Santacruz Referral Completed 03/03/2016 Appointment: Noa Orlando WPtel[phone] [place] (30 min) Complex 02/25/2016 Patient Education: Patient Medication Summary Completed 02/25/2016 Patient Education: Obesity Completed 02/25/2016 Patient Education: Hypertension Completed 02/25/2016 Care Plan: Referral Order SNOMED-CT : [id number] Pending 02/25/2016 Appointment: Noa Orlando WPtel[phone] [place] (30 min) Complex 01/28/2016 Patient Education: Patient Medication Summary Completed 01/28/2016 Appointment: Injection 01/08/2016 Patient Education: Patient Medication Summary Completed 01/08/2016 Patient Education: Patient Medication Summary Completed 11/14/2015 Patient Education: Obesity Completed 11/14/2015 Patient Education: Patient Medication Summary Completed 10/10/2015 Patient Education: Obesity Completed 10/10/2015 Patient Education: Hypertension Completed 10/10/2015 Appointment: Marilyn Lao WPtel: [phone] [facility] [place] (15 min) Moderate 10/08/2015 Appointment: Noa Orlando WPtel: [phone] (15 min) Moderate 09/12/2015 Patient Education: Patient Medication Summary Completed 09/12/2015 Patient Education: Obesity Completed 09/12/2015 Appointment: (30 min) Complex 04/09/2015 Patient Education: Patient Medication Summary Completed 04/09/2015 Patient Education: Hypertension Completed 04/09/2015 Appointment: (15 min) Moderate 10/05/2014 Patient Education: Patient Medication Summary Completed 10/05/2014 Patient Education: Hypertension Completed 10/05/2014 Appointment: (15 min) Moderate 09/07/2014 Patient Education: Patient Medication Summary Completed 09/07/2014 Patient Education: Hypertension Completed 09/07/2014 Care Plan: COMPLETE CBC AUTOMATED LOINC : 07524-8 Ordered 09/07/2014 Appointment: Sick 07/16/2014 Patient Education: Patient Medication Summary Completed 07/16/2014 Appointment: Marilyn Lao WPtel: [address] [place], [place] [phone] Follow up 04/16/2014 Appointment: Sick 04/03/2014 Patient Education: Patient Medication Summary Completed 04/02/2014 Appointment: Marilyn Lao WPtel: [address] [place], [place] [phone] Sick 12/27/2013 Patient Education: Patient Medication Summary Completed 12/27/2013 Appointment: Follow up 12/14/2013 Patient Education: Patient Medication Summary Completed 12/14/2013 Patient Education: Hypertension Completed 12/14/2013 Appointment: Noa Orlando WPtel: [address] [place], [place] [phone] Sick 12/01/2013 Appointment: Marilyn Lao WPtel: [address] [place], [place] [phone] Sick 11/30/2013 Appointment: Marilyn Lao WPtel: [address] [place], [place] [phone] Follow up 08/01/2013 Patient Education: Patient Medication Summary Completed 08/01/2013 Appointment: [facility]el[facility] [phone] [facility] Follow up 05/02/2013 Patient Education: Patient Medication Summary Completed 05/02/2013 Patient Education: Hypertension Completed 05/02/2013 Appointment: [facility]el[facility] [phone] [facility] New Patient 04/18/2013 Patient Education: Patient Medication Summary Completed 04/18/2013 Patient Education: Hypertension Completed 04/18/2013 Referral: Ta Santacruz Referral Appointment Requested Instructions No Instructions
--- OUTSIDE RECORDS SUMMARY | 2018-11-04 16:42 | XMS REPORT | Continuity of Care Document ---
Demographics Preferred Language Unknown Marital Status Unknown Evangelical Affiliation Unknown Race Unknown Ethnic Group Unknown Author Organization Unknown Address Unknown Phone Unavailable Allergies Active Description Code Type Severity Reaction Onset Reported/Identified Relationship to Patient Clinical Status Yes NO KNOWN DRUG ALLERGIES UNKNOWN NO KNOWN DRUG ALLERG Yes NO KNOWN DRUG ALLERGIES UNKNOWN UNKNOWN Yes No Known Drug Allergies [id number] Drug Allergy Unknown N/A 09/14/2009 Medications There is no data. Problems Date Dx Coded Attending Type Code Diagnosis Diagnosed By 05/15/2010 Ot 401.9 HYPERTENSION NOS 05/15/2010 Ot 593.9 RENAL URETERAL DIS NOS 05/15/2010 Ot 780.4 DIZZINESS AND GIDDINESS 05/15/2010 Ot 780.79 OTH MALAISE FATIGUE 05/15/2010 Ot 794.31 ABNORM ELECTROCARDIOGRAM 05/15/2010 Ot V58.69 OTH MED,LT,CURRENT USE 11/14/2010 Ot 272.4 HYPERLIPIDEMIA NEC/NOS 11/14/2010 Ot 278.00 OBESITY, NOS 11/14/2010 Ot 333.94 RESTLESS LEGS SYNDROME 11/14/2010 Ot 401.9 HYPERTENSION NOS 11/14/2010 Ot 415.19 OTH PULMON EMBOLISM/INFARCT 11/14/2010 Ot 459.81 VENOUS INSUFFICIENCY NOS 11/14/2010 Ot 530.81 ESOPHAGEAL REFLUX 11/14/2010 Ot 715.90 OSTEOARTHROS NOS-UNSPEC 11/14/2010 Ot 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 11/14/2010 Ot 729.1 MYALGIA AND MYOSITIS NOS 11/14/2010 Ot V85.25 BODY MASS INDEX 29.0-29.9, ADULT 03/21/2011 Ot 272.4 HYPERLIPIDEMIA NEC/NOS 03/21/2011 Ot 278.00 OBESITY, NOS 03/21/2011 Ot 300.00 ANXIETY STATE NOS 03/21/2011 Ot 333.94 RESTLESS LEGS SYNDROME 03/21/2011 Ot 397.0 TRICUSPID VALVE DISEASE 03/21/2011 Ot 403.90 HYPTNSV CHR KID DIS, UNSPEC, W CHR KD ST 03/21/2011 Ot 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 03/21/2011 Ot 424.0 MITRAL VALVE DISORDER 03/21/2011 Ot 459.81 VENOUS INSUFFICIENCY NOS 03/21/2011 Ot 530.81 ESOPHAGEAL REFLUX 03/21/2011 Ot 585.9 CHRONIC KIDNEY DISEASE, UNSPECIFIED 03/21/2011 Ot 715.90 OSTEOARTHROS NOS-UNSPEC 03/21/2011 Ot 721.3 LUMBOSACRAL SPONDYLOSIS 03/21/2011 Ot 729.1 MYALGIA AND MYOSITIS NOS 03/21/2011 Ot 782.3 EDEMA 03/21/2011 Ot 786.50 CHEST PAIN NOS 03/21/2011 Ot V17.49 FAMILY HISTORY OF OTHER CARDIOVASCULAR D 03/21/2011 Ot V58.61 ANTICOAGULANTS,LT,CURRENT USE 03/21/2011 Ot V58.69 OTH MED,LT,CURRENT USE 03/21/2011 Ot V85.31 BODY MASS INDEX 31.0-31.9, ADULT 06/16/2011 Ot 785.1 PALPITATIONS 06/16/2011 Ot 786.50 CHEST PAIN NOS 03/12/2014 IRASEMA LOCKETT, DANIELLA Guallpa Ot V76.12 04/02/2014 IRASEMA LOCKETT, DANIELLA Guallpa Ot V76.12 03/28/2015 Ot 786.09 03/28/2015 Ot 786.50 03/28/2015 Ot 793.82 03/28/2015 Ot V76.12 03/28/2015 Ot 793.80 03/28/2015 Ot 722.4 03/28/2015 Ot 722.51 03/28/2015 Ot 722.4 03/28/2015 Ot 722.51 03/28/2015 Ot 785.1 03/28/2015 Ot 786.50 03/28/2015 Ot 789.06 03/28/2015 Ot 789.06 03/28/2015 EMA LOCKETT, LUCERO A Ot V76.12 03/28/2015 NINI LOCKETT, SULTANA Richter Ot 786.2 03/28/2015 IRASEMA LOCKETT, DANIELLA Guallpa Ot V76.12 04/08/2015 Ot 786.09 04/08/2015 Ot 786.50 04/08/2015 Ot 793.82 04/08/2015 Ot V76.12 04/08/2015 Ot 793.80 04/08/2015 Ot 722.4 04/08/2015 Ot 722.51 04/08/2015 Ot 722.4 04/08/2015 Ot 722.51 04/08/2015 Ot 785.1 04/08/2015 Ot 786.50 04/08/2015 Ot 789.06 04/08/2015 Ot 789.06 04/08/2015 EMA LOCKETT, LUCERO A Ot V76.12 04/08/2015 NINI LOCKETT, SULTANA Richter Ot 786.2 04/08/2015 IRASEMA LOCKETT, DANIELLA A Ot V76.12 04/08/2015 JESSENIA LISA APRN Ot Z12.31 04/10/2015 Ot 786.09 04/10/2015 Ot 786.50 04/10/2015 Ot 793.82 04/10/2015 Ot V76.12 04/10/2015 Ot 793.80 04/10/2015 Ot 722.4 04/10/2015 Ot 722.51 04/10/2015 Ot 722.4 04/10/2015 Ot 722.51 04/10/2015 Ot 785.1 04/10/2015 Ot 786.50 04/10/2015 Ot 789.06 04/10/2015 Ot 789.06 04/10/2015 EMA LOCKETT, LUCERO A Ot V76.12 04/10/2015 NINI LOCKETT, SULTANA Richter Ot 786.2 04/10/2015 IRASEMA LOCKETT, DANIELLA A Ot V76.12 04/10/2015 JESSENIA LISA APRN Ot Z12.31 09/27/2015 Ot 786.09 RESPIRATORY ABNORM NEC 09/27/2015 Ot 786.50 CHEST PAIN NOS 10/03/2015 Ot 786.09 RESPIRATORY ABNORM NEC 10/03/2015 Ot 786.50 CHEST PAIN NOS 10/03/2015 Ot 793.82 INCONCLUSIVE MAMMOGRAM 10/03/2015 Ot V76.12 OT SCREEN MAMMO- MALIGN NEOPLASM OF BLAYNE 10/03/2015 Ot 793.80 UNSPEC ABNORMAL MAMMOGRAM 10/03/2015 Ot 722.4 CERVICAL DISC DEGEN 10/03/2015 Ot 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 10/03/2015 Ot 722.4 CERVICAL DISC DEGEN 10/03/2015 Ot 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 10/03/2015 Ot 785.1 PALPITATIONS 10/03/2015 Ot 786.50 CHEST PAIN NOS 10/03/2015 Ot 789.06 ABDOMINAL PAIN, EPIGASTRIC 10/03/2015 Ot 789.06 ABDOMINAL PAIN, EPIGASTRIC 10/03/2015 EMA LOCKETT, LUCERO Guallpa Ot V76.12 OTH SCREEN MAMMO-MALIGN NEOPLASM OF BLAYNE 10/03/2015 NINI LOCKETT, SULTANA P Ot 786.2 COUGH 10/03/2015 DANIELLA VILLALPANDO MD Ot V76.12 OTH SCREEN MAMMO-MALIGN NEOPLASM OF BLAYNE 10/03/2015 JESSENIA LISA CELLAR SUPERVISOR Ot Z12.31 ENCNTR SCREEN MAMMOGRAM FOR MALIGNANT NE 04/29/2016 Ot 786.09 RESPIRATORY ABNORM NEC 04/29/2016 Ot 786.50 CHEST PAIN NOS 06/08/2017 EMA LOCKETT, LUCERO Guallpa Ot V76.12 OTH SCREEN MAMMO-MALIGN NEOPLASM OF BLAYNE 06/08/2017 NINI LOCKETT, SULTANA P Ot 786.2 COUGH 06/08/2017 IRASEMA LOCKETT, DANIELLA Guallpa Ot V76.12 OTH SCREEN MAMMO-MALIGN NEOPLASM OF BLAYNE 06/08/2017 JESSENIA LISA CELLAR SUPERVISOR Ot Z12.31 ENCNTR SCREEN MAMMOGRAM FOR MALIGNANT NE 06/09/2017 LUCERO BOO MD Ot V76.12 OTH SCREEN MAMMO-MALIGN NEOPLASM OF BLAYNE 06/09/2017 NINI LOCKETT, SULTANA Richter Ot 786.2 COUGH 06/09/2017 DANIELLA VILLALPANDO MD Ot V76.12 OTH SCREEN MAMMO-MALIGN NEOPLASM OF BLAYNE 06/09/2017 JESSENIA LISA CELLAR SUPERVISOR Ot Z12.31 ENCNTR SCREEN MAMMOGRAM FOR MALIGNANT NE 06/11/2017 CAROLINA LOPEZ MD Ot I26.99 OTHER PULMONARY EMBOLISM WITHOUT ACUTE C 06/11/2017 CAROLINA LOPEZ MD Ot K44.9 DIAPHRAGMATIC HERNIA WITHOUT OBSTRUCTION 06/11/2017 CAROLINA LOPEZ MD Ot K44.9 DIAPHRAGMATIC HERNIA WITHOUT OBSTRUCTION 06/11/2017 CAROLINA LOPEZ MD Ot Z86.711 PERSONAL HISTORY OF PULMONARY EMBOLISM 06/11/2017 CAROLINA LOPEZ MD Ot K44.9 DIAPHRAGMATIC HERNIA WITHOUT OBSTRUCTION 06/11/2017 CAROLINA LOPEZ MD Ot Z86.711 PERSONAL HISTORY OF PULMONARY EMBOLISM 06/29/2017 CAROLINA LOPEZ MD Ot K44.9 DIAPHRAGMATIC HERNIA WITHOUT OBSTRUCTION 06/29/2017 CAROLINA LOPEZ MD Ot Z86.711 PERSONAL HISTORY OF PULMONARY EMBOLISM 07/02/2017 CAROLINA LOPEZ MD Ot E78.2 MIXED HYPERLIPIDEMIA 07/02/2017 CAROLINA LOPEZ MD Ot I73.9 PERIPHERAL VASCULAR DISEASE, UNSPECIFIED 07/02/2017 CAROLINA LOPEZ MD Ot R06.02 SHORTNESS OF BREATH 07/02/2017 CAROLINA LOPEZ MD Ot R07.9 CHEST PAIN, UNSPECIFIED 07/02/2017 CAROLINA LOPEZ MD Ot R53.83 OTHER FATIGUE 07/08/2017 Vitaliy Castillo 923.20 CONTUSION OF HAND(S) 07/08/2017 Vitaliy Castillo S60.221A CONTUSION OF RIGHT HAND, INITIAL ENCOUNTER 07/21/2017 CAROLINA LOPEZ MD Ot E78.2 MIXED HYPERLIPIDEMIA 07/21/2017 CAROLINA LOPEZ MD Ot I73.9 PERIPHERAL VASCULAR DISEASE, UNSPECIFIED 07/21/2017 CAROLINA LOPEZ MD Ot R06.02 SHORTNESS OF BREATH 07/21/2017 CAROLINA LOPEZ MD Ot R07.9 CHEST PAIN, UNSPECIFIED 07/21/2017 CAROLINA LOPEZ MD Ot R53.83 OTHER FATIGUE 12/15/2017 Ot Z12.31 ENCNTR SCREEN MAMMOGRAM FOR MALIGNANT NE 08/26/2018 NINI LOCKETT, SULTANA P Ot 786.2 COUGH 08/26/2018 IRASEMA LOCKETT, DANIELLA A Ot V76.12 OTH SCREEN MAMMO-MALIGN NEOPLASM OF BLAYNE 08/26/2018 JESSENIA LISA APRN Ot Z12.31 ENCNTR SCREEN MAMMOGRAM FOR MALIGNANT NE 08/26/2018 CAROLINA LOPEZ MD Ot E78.2 MIXED HYPERLIPIDEMIA 08/26/2018 CAROLINA LOPEZ MD Ot I73.9 PERIPHERAL VASCULAR DISEASE, UNSPECIFIED 08/26/2018 CAROLINA LOPEZ MD Ot R06.02 SHORTNESS OF BREATH 08/26/2018 CAROLINA LOPEZ MD Ot R07.9 CHEST PAIN, UNSPECIFIED 08/26/2018 CAROLINA LOPEZ MD Ot R53.83 OTHER FATIGUE 08/26/2018 CAROLINA LOPEZ MD Ot K44.9 DIAPHRAGMATIC HERNIA WITHOUT OBSTRUCTION 08/26/2018 CAROLINA LOPEZ MD Ot Z86.711 PERSONAL HISTORY OF PULMONARY EMBOLISM 08/26/2018 Ot Z12.31 ENCNTR SCREEN MAMMOGRAM FOR MALIGNANT NE 11/04/2018 NINI LOCKETT, SULTANA Richter Ot 786.2 COUGH 11/04/2018 IRASEMA LOCKETT, DANIELLA Guallpa Ot V76.12 OTH SCREEN MAMMO-MALIGN NEOPLASM OF BLAYNE 11/04/2018 JESSENIA LISA APRN Ot Z12.31 ENCNTR SCREEN MAMMOGRAM FOR MALIGNANT NE 11/04/2018 CAROLINA LOPEZ MD Ot E78.2 MIXED HYPERLIPIDEMIA 11/04/2018 CAROLINA LOPEZ MD Ot I73.9 PERIPHERAL VASCULAR DISEASE, UNSPECIFIED 11/04/2018 CAROLINA LOPEZ MD Ot R06.02 SHORTNESS OF BREATH 11/04/2018 CAROLINA LOPEZ MD Ot R07.9 CHEST PAIN, UNSPECIFIED 11/04/2018 CAROLINA LOPEZ MD Ot R53.83 OTHER FATIGUE 11/04/2018 CAROLINA LOPEZ MD Ot K44.9 DIAPHRAGMATIC HERNIA WITHOUT OBSTRUCTION 11/04/2018 CAROLINA LOPEZ MD Ot Z86.711 PERSONAL HISTORY OF PULMONARY EMBOLISM 11/04/2018 Ot Z12.31 ENCNTR SCREEN MAMMOGRAM FOR MALIGNANT NE Procedures There is no data. Results Test Result Range Vitamin D, 25 OH - 06/16/16 11:18 Vitamin D, 25 OH 46.10 ng/mL 25.00-100.00 Urine Culture - 06/16/16 11:18 PRELIM CULTURE RESULTS >100,000 Gram Negative BRIAN / ID to Follow MEDIA PLATED Setup at 12:05 on 06/16/2016 CULTURE SOURCE clean catch Sensi - 06/16/16 11:18 FINAL CULTURE RESULTS Escherichia coli (Isolate 1) Ampicillin/Sulbactam <=8/4 Ampicillin <=8 Amoxicillin/K Clavulanate <=8/4 Ceftriaxone <=8 Ciprofloxacin >2 Nitrofurantoin <=32 Gentamicin <=4 Levofloxacin >4 Trimethoprim/ Sulfamethoxazole <=2/38 Tetracycline <=4 Amikacin <=16 Aztreonam <=8 Ceftazidime <=1 Ceftazidime/K Clavulanate <=0.25 Cephalothin 16 Cefotaxime <=2 Cefotaxime/K Clavulanate <=0.5 Cefoxitin <=8 Cefazolin <=8 Cefepime <=8 Cefuroxime 8 Ertapenem <=1 Imipenem <=4 Meropenem <=4 Piperacillin/Tazobactam <=16 Piperacillin <=16 Tigecycline <=2 Tobramycin <=4 PTH, Intact - 06/16/16 11:18 PTH, INTACT 94 PG/ML 15-65 Urine Protein/Creat - 01/01/17 14:05 MTP <7 mg/dL 0-20 Urine Creatinine 22.5 mg/dl 0.0-50.0 Urine Protein/Creat Ratio 0.30 mg/dL Uric Acid - 01/01/17 14:05 Uric Acid 5.7 mg/dL 2.6-7.2 PTH, Intact - 01/01/17 14:05 PTH, INTACT 96 PG/ML 15-65 Urinalysis - 02/15/18 12:48 Icotest N/A Negative Urine Volume Urine Volume Sufficient (10mL) Urine Yeast No Yeast present Urine-Appearance Clear Clear Urine-Bacteria Negative Urine-Bilirubin Negative Negative Urine-Blood Trace-lysed Negative Urine-Color Yellow Colorless-Lt. Yellow Urine-Glucose Negative Negative Urine-Ketones Negative Negative Urine-Leukocytes Negative Negative Urine-Nitrite Negative Negative Urine-Other Culture to follow per Dr Order Urine-pH 5.5 5-8.5 Urine-Protein Negative Negative Urine-RBC Rare/HPF Urine-Specific Martha 1.010 1.000-1.030 Urine-WBC Negative Urobilinogen 0.2 E.U./dL 0.2-1.0 Urine Culture - 02/15/18 12:48 PRELIM CULTURE RESULTS 10,000-20,000 Mixed Tricia [id number] Skin Contaminant MEDIA PLATED Setup at 13:12 on 02/15/2018 CULTURE SOURCE clean Sensi - 02/15/18 12:48 FINAL CULTURE RESULTS Escherichia coli (Isolate 1) Ampicillin/Sulbactam <=8/4 Ampicillin <=8 Amoxicillin/K Clavulanate <=8/4 Ceftriaxone <=8 Ciprofloxacin >2 Nitrofurantoin <=32 Gentamicin <=4 Levofloxacin >4 Trimethoprim/ Sulfamethoxazole <=2/38 Tetracycline >8 Amikacin <=16 Aztreonam <=8 Ceftazidime <=1 Ceftazidime/K Clavulanate <=0.25 Cephalothin 16 Cefotaxime <=2 Cefotaxime/K Clavulanate <=0.5 Cefoxitin <=8 Cefazolin <=8 Cefepime <=8 Cefuroxime 8 Ertapenem <=1 Imipenem <=4 Meropenem <=4 Piperacillin/Tazobactam <=16 Piperacillin <=16 Tigecycline <=2 Tobramycin <=4 PTH, Intact - 09/01/18 09:12 PTH, Intact 47 pg/mL 15-65 Vitamin D, 25 OH - 09/01/18 09:12 Vitamin D, 25 OH 29.30 ng/mL 25.00-100.00 PTH, Intact - 09/01/18 09:12 PTH, INTACT 47 PG/ML 15-65 Automated blood complete blood count (hemogram) panel - 11/04/18 11:10 Blood leukocytes automated count (number/volume) 4.4 10*3/uL 4.3-11.0 Blood erythrocytes automated count (number/volume) 4.62 10*6/uL 4.35-5.85 Venous blood hemoglobin measurement (mass/volume) 13.1 g/dL 11.5-16.0 Blood hematocrit (volume fraction) 40 % 35-52 Automated erythrocyte mean corpuscular volume 87 [foz_us] 80-99 Automated erythrocyte mean corpuscular hemoglobin (mass per erythrocyte) 28 pg 25-34 Automated erythrocyte mean corpuscular hemoglobin concentration measurement (mass/volume) 33 g/dL 32-36 Automated erythrocyte distribution width ratio 13.3 % 10.0- 14.5 Automated blood platelet count (count/volume) 232 10*3/uL 130-400 Automated blood platelet mean volume measurement 9.2 [foz_us] 7.4-10.4 Comprehensive metabolic panel - 11/04/18 11:10 Serum or plasma sodium measurement (moles/volume) 140 mmol/L 135-145 Serum or plasma potassium measurement (moles/volume) 4.1 mmol/L 3.6-5.0 Serum or plasma chloride measurement (moles/volume) 105 mmol/L 98-107 Carbon dioxide 26 mmol/L 21-32 Serum or plasma anion gap determination (moles/volume) 9 mmol/L 5-14 Serum or plasma urea nitrogen measurement (mass/volume) 10 mg/dL 7-18 Serum or plasma creatinine measurement (mass/volume) 1.21 mg/dL 0.60-1.30 Serum or plasma urea nitrogen/creatinine mass ratio 8 NRG Serum or plasma creatinine measurement with calculation of estimated glomerular filtration rate 44 NRG Serum or plasma glucose measurement (mass/volume) 104 mg/dL 70-105 Serum or plasma calcium measurement (mass/volume) 10.1 mg/dL 8.5-10.1 Serum or plasma total bilirubin measurement (mass/volume) 0.5 mg/dL 0.1-1.0 Serum or plasma alkaline phosphatase measurement (enzymatic activity/volume) 81 U/L 40-136 Serum or plasma aspartate aminotransferase measurement (enzymatic activity/volume) 18 U/L 5-34 Serum or plasma alanine aminotransferase measurement (enzymatic activity/volume) 17 U/L 0-55 Serum or plasma protein measurement (mass/volume) 7.0 g/dL 6.4-8.2 Serum or plasma albumin measurement (mass/volume) 4.2 g/dL 3.2-4.5 CALCIUM CORRECTED 9.9 mg/dL 8.5-10.1 Serum or plasma troponin i.cardiac measurement (mass/volume) - 11/04/18 11:10 Serum or plasma troponin i.cardiac measurement (mass/volume) < ng/mL <0.028 THYROID STIMULATING HORMONE - 11/04/18 11:10 THYROID STIMULATING HORMONE 1.21 u[iU]/mL 0.35-4.94 Complete urinalysis with reflex to culture - 11/04/18 12:23 Urine color determination YELLOW NRG Urine clarity determination CLEAR NRG Urine pH measurement by test strip 7 5-9 Specific gravity of urine by test strip 1.005 1.016-1.022 Urine protein assay by test strip, semi-quantitative NEGATIVE NEGATIVE Urine glucose detection by automated test strip NEGATIVE NEGATIVE Erythrocytes detection in urine sediment by light microscopy NEGATIVE NEGATIVE Urine ketones detection by automated test strip NEGATIVE NEGATIVE Urine nitrite detection by test strip NEGATIVE NEGATIVE Urine total bilirubin detection by test strip NEGATIVE NEGATIVE Urine urobilinogen measurement by automated test strip (mass/volume) NORMAL NORMAL Urine leukocyte esterase detection by dipstick 1+ NEGATIVE Automated urine sediment erythrocyte count by microscopy (number/high power field) NONE NRG Automated urine sediment leukocyte count by microscopy (number/high power field) RARE NRG Bacteria detection in urine sediment by light microscopy NEGATIVE NRG Squamous epithelial cells detection in urine sediment by light microscopy RARE NRG Crystals detection in urine sediment by light microscopy NONE NRG Casts detection in urine sediment by light microscopy NONE NRG Mucus detection in urine sediment by light microscopy NEGATIVE NRG Complete urinalysis with reflex to culture NO NRG Encounters ACCT No. Visit Date/Time Discharge Status Pt. Type Provider Facility Loc./Unit Complaint [id number] 09/02/2018 06:15:00 Document Registration [id number] 06/30/2017 10:50:00 06/30/2017 23:59:59 CLS Outpatient CAROLINA LOPEZ MD [facility] CARD ANTERIOR CHEST WALL PAIN [id number] 06/09/2017 15:35:00 06/09/2017 23:59:59 CLS Outpatient CAROLINA LOPEZ MD [facility] RAD SOB [id number] 06/08/2017 07:31:00 06/08/2017 23:59:59 CLS Preadmit CAROLINA LOPEZ MD [facility] CARD ANTERIOR CHEST WALL PAIN [id number] 03/28/2015 13:06:00 03/28/2015 23:59:59 CLS Outpatient JESSENIA LISA APRN [facility] RAD ROUTINE MAMMOGRAM SCREENING [id number] 03/05/2014 14:48:00 03/05/2014 23:59:59 CLS Outpatient DANIELLA VILLALPANDO MD [facility] RAD ROUTINE [id number] 09/08/2013 14:05:00 09/08/2013 23:59:59 CLS Outpatient SULTANA TERRAZAS MD [facility] RT CHRONIC COUGH [id number] 08/31/2012 14:35:00 08/31/2012 23:59:59 CLS Outpatient LUCERO BOO MD [facility] RAD SCREENING [id number] 11/04/2018 14:30:00 ACT Inpatient URBANO LOCKETT, BETSY Hopkins [facility] 4TH WEAKNESS,DIZZINESS [id number] 11/11/2017 14:31:00 Document Registration [id number] 03/28/2015 13:06:00 Document Registration [id number] 03/28/2015 13:06:00 Document Registration [id number] 03/28/2015 13:06:00 Document Registration [id number] 09/17/2011 16:54:00 Document Registration [id number] 09/17/2011 13:52:00 Document Registration [id number] 06/17/2011 11:00:00 Document Registration [id number] 05/05/2011 12:38:00 Document Registration [id number] 04/20/2011 06:55:00 Document Registration [id number] 03/18/2011 21:35:00 Document Registration [id number] 03/18/2011 10:07:00 Document Registration [id number] 02/17/2011 12:02:00 Document Registration [id number] 02/10/2011 07:25:00 Document Registration [id number] 11/10/2010 15:48:00 Document Registration [id number] 11/10/2010 09:25:00 Document Registration [id number] 05/15/2010 14:36:00 Document Registration [id number] 09/01/2018 09:06:00 09/01/2018 23:59:00 DIS Outpatient DANIELLA VILLALPANDO [id number] 02/15/2018 12:45:00 02/15/2018 23:59:00 DIS Outpatient PAULY FOX [id number] 07/08/2017 20:08:00 07/08/2017 21:25:00 DIS Outpatient [facility] [id number] 01/01/2017 14:03:00 01/01/2017 23:59:00 DIS Outpatient PAULY FOX [id number] 07/06/2016 10:49:00 07/06/2016 23:59:00 DIS Outpatient PAULY FOX [id number] 06/16/2016 10:57:00 06/16/2016 23:59:00 DIS Outpatient PAULY FOX
[2018-11-04] MEDS ORDERED: ALPRAZolam 0.5 MG (XANAX) TAB PO PRN ×2 (17:30→18:45)
[2018-11-04] MEDS ORDERED: PATIENT MAY USE OWN MEDS, ALL MC SCH (17:45)
[2018-11-04 20:00] VITALS: BP 145/83
[2018-11-04] MEDS ORDERED: rOPINIRole 1 MG (REQUIP) TABLET PO SCH (20:00)
[2018-11-04] MEDS ORDERED: ATORVASTATIN 10 MG (LIPITOR) TABLET PO SCH (21:00)
[2018-11-04] MEDS ORDERED: ALPRAZolam 0.5 MG (XANAX) TAB PO SCH (21:00)
[2018-11-04] MEDS ORDERED: raNItidine (ZANTAC) 150 MG TAB NON-FORMULARY PO PRN (21:00)
[2018-11-04] MEDS ORDERED: DULOXETINE 60MG CAPSULE PO SCH (21:00)
[2018-11-04] MEDS ORDERED: MONTELUKAST 10 MG (SINGULAIR) TAB PO SCH (21:00)
[2018-11-04] MEDS: amLODIPine 5 MG (NORVASC) TAB PO SCH (21:39)
[2018-11-04] MEDS: SUCRALFATE 1 GM (CARAFATE) TAB PO SCH (21:40)
[2018-11-04] MEDS: LABETALOL 200 MG (NORMODYNE) TAB PO SCH (21:40)
[2018-11-04 23:39] VITALS: BP 144/84
[2018-11-05 00:39] VITALS: BP 104/65
[2018-11-05 04:22] VITALS: BP 102/62
[2018-11-05] MEDS: NS IV 1000 ML 1,000 ML IV SCH (05:10)
[2018-11-05 06:24] LABS: BASOPHILS % (AUTO) 1 % (0-10); EOSINOPHILS # (AUTO) 0.1 10^3/uL (0.0-0.3); EOSINOPHILS % (AUTO) 2 % (0-10); HEMATOCRIT 35 % (35-52); HEMOGLOBIN 11.4 G/DL (11.5-16.0); LYMPHOCYTES # (AUTO) 1.8 X 10^3 (1.0-4.0); LYMPHOCYTES % (AUTO) 42 % (12-44); MEAN CORPUSCULAR HEMOGLOBIN 29 PG (25-34); MEAN CORPUSCULAR HGB CONC 32 G/DL (32-36); MEAN CORPUSCULAR VOLUME 88 FL (80-99); MEAN PLATELET VOLUME 9.4 FL (7.4-10.4); MONOCYTES # (AUTO) 0.3 X 10^3 (0.0-1.0); MONOCYTES % (AUTO) 6 % (0-12); NEUTROPHILS # (AUTO) 2.1 X 10^3 (1.8-7.8); NEUTROPHILS % (AUTO) 49 % (42-75); PLATELET COUNT 201 10^3/uL (130-400); RED CELL DISTRIBUTION WIDTH 13.1 % (10.0-14.5); WHITE BLOOD COUNT 4.3 10^3/uL (4.3-11.0)
[2018-11-05 06:37] LABS: ALBUMIN 3.5 GM/DL (3.2-4.5); BILIRUBIN,TOTAL 0.5 MG/DL (0.1-1.0); CALCIUM 8.9 MG/DL (8.5-10.1); CREATININE SERUM 1.01 MG/DL (0.60-1.30); POTASSIUM 3.6 MMOL/L (3.6-5.0); TOTAL PROTEIN 5.9 GM/DL (6.4-8.2)
[2018-11-05 08:00] VITALS: BP 112/64
[2018-11-05] MEDS ORDERED: MAGNESIUM OXIDE (MAG-OX)400 MG TAB PO SCH (08:00)
[2018-11-05] MEDS ORDERED: ASPIRIN 325 MG (5 GR) TABLET PO SCH (09:00)
[2018-11-05] MEDS ORDERED: LOSARTAN 100 MG (COZAAR) TABLET PO SCH (09:00)
[2018-11-05] MEDS ORDERED: ALPRAZolam 0.5 MG (XANAX) TAB PO SCH (09:00)
[2018-11-05] MEDS: SUCRALFATE 1 GM (CARAFATE) TAB PO SCH (10:01)
[2018-11-05] MEDS: amLODIPine 5 MG (NORVASC) TAB PO SCH (10:03)
[2018-11-05] MEDS: LABETALOL 200 MG (NORMODYNE) TAB PO SCH (10:03)
--- NOTE | 2018-11-05 11:57 | History & Physical-Hospitalist ---
History of Present Illness HPI/Chief Complaint this is a 68 year old female who presents to the emergency room with complaints of having awakened at 3 in the morning to go to the bathroom and was very unsteady and confused. She remained that way she said until she got to the emergency room and started to receive fluids. The patient at the time of my interview this morning is feeling much better, is oriented and steady, and has no complaints other than pain in her left shoulder that has been ongoing for some time. She does note that she had been started on baclofen within the last week and had taken it along with her Xanax and Requip the night before. Source: patient Exam Limitations: no limitations Date Seen 11/05/18 Time Seen by a Provider: 10:[address] MD PCP Daniella Lao MD Referring Physician Date of Admission Nov 04, 2018 at 14:30 Home Medications & Allergies Home Medications Reviewed patient Home Medication Reconciliation performed by pharmacy medication reconciliations bioinformatics technician and/or nursing. Patients Allergies have been reviewed. Allergies Allergies Coded Allergies No Known Drug Allergies (Unverified09/14/09) Past Klabjvw-Xxrgjb-Wypzzu Hx Past Med/Social Hx: Reviewed Nursing Past Med/Soc Hx Patient Social History Marrital Status: ( has dementia) Alcohol Use: Denies Use Recreational Drug Use: No Smoking Status: Never a Smoker Recent Foreign Travel: No Contact w/other who traveled: No Recent Hopitalizations: No Recent Infectious Disease Expo: No Immunizations Up To Date Date of Pneumonia Vaccine: Mar 07, 2018 Date of Influenza Vaccine: Dec 27, 2010 Past Medical History Surgeries: Appendectomy, Gallbladder, Hysterectomy, Joint Replacement, Orthopedic Cardiac: High Cholesterol, Hypertension Reproductive: No Musculoskeletal: Arthritis History of Blood Disorders: No Family History FH: CHF (congestive heart failure) 19 FATHER 19 MOTHER FH: breast cancer G8 SISTER FH: liver cancer G8 BROTHER Kidney disease 19 FATHER Review of Systems Constitutional: see HPI EENTM: no symptoms reported Respiratory: no symptoms reported Cardiovascular: no symptoms reported Gastrointestinal: no symptoms reported Genitourinary: no symptoms reported Musculoskeletal: joint pain ( left shoulder) Skin: no symptoms reported Psychiatric/Neurological: No Symptoms Reported, See HPI Physical Exam Physical Exam Vital Signs Vital Signs - First Documented 11/04/18 11:06 Temp 97.1 Pulse 59 Resp 14 B/P (MAP) 161/86 (111) Pulse Ox 99 O2 Delivery Room Air Capillary Refill : Less Than 3 Seconds Height, Weight, BMI Height: 5'5.00" Weight: 221lbs. 3.2oz. [id number]; 36.0 BMI Method:Stated General Appearance: No Apparent Distress, WD/WN HEENT: PERRL/EOMI, TMs Normal, Normal ENT Inspection, Pharynx Normal Neck: Full Range of Motion, Normal Inspection, Non Tender, Supple Respiratory: Chest Non Tender, Lungs Clear, Normal Breath Sounds, No Accessory Muscle Use, No Respiratory Distress Cardiovascular: Regular Rate, Rhythm, No Edema, No Gallop, No JVD, No Murmur, Normal Peripheral Pulses Gastrointestinal: Normal Bowel Sounds, No Organomegaly, No Pulsatile Mass, Non Tender, Soft Rectal: Deferred Back: Normal Inspection, No CVA Tenderness, No Vertebral Tenderness Extremity: Normal Inspection, Non Tender, Other ( painful left shoulder with point tenderness) Neurologic/Psychiatric: Alert, Oriented x3, No Motor/Sensory Deficits, Normal Mood/Affect, drill sharpener II-XII Norm as Tested Results Results/Procedures Labs Laboratory Tests 11/04/18 11:10 11/05/18 06:10 Patient resulted labs reviewed. Imaging: Reviewed Imaging Report Assessment/Plan Admission Diagnosis mental status change resolved- suspect secondary to medication interaction. No evidence of TIA or CVA- She did have carotid Dopplers about 4 years ago that were normal remote history of pulmonary emboli when on estrogen. back pain hypertension hyperlipidemia left shoulder pain possibly secondary to rotator cuff tear the patient currently is back at baseline- we will discharge with recommendations and to decrease the Xanax in the evening to 0.25 mg, DC the baclofen, follow up with Dr. Menendez for carotid Dopplers. Admission Status: Observation Clinical Quality Measures DVT/VTE Risk/Contraindication: Risk Factor Score Per Nursin RFS Level Per Nursing on Admit: 4+=Very High Copy Copies To 1: DANIELLA LAO MD, KATHLEEN M MD Nov 05, 2018 11:57
[2018-11-05] MEDS ORDERED: ALPR0.5T7 PO (12:06)
[2018-11-05 12:37] VITALS: BP 112/64
== END 2018-11-05 11:58 | disposition home or self-care (01) ==
LOC: EDUNIT# 11:00 → ER 11:01 → 4TH 14:30 → UNDOADMOB 14:30 → 4TH 14:40 → UNDODISOB 11-05 12:43
PROVIDERS: ADMIT Internal Medicine; ATTEND Internal Medicine
DX: R41.82 Altered mental status, unspecified (principal); I10 Essential (primary) hypertension; M54.9 Dorsalgia, unspecified; E78.5 Hyperlipidemia, unspecified; M25.512 Pain in left shoulder; E78.00 Pure hypercholesterolemia, unspecified; M19.90 Unspecified osteoarthritis, unspecified site; Z90.49 Acquired absence of other specified parts of digestive tract; Z90.710 Acquired absence of both cervix and uterus; Z82.49 Family history of ischemic heart disease and other diseases of the circulatory system; Z85.3 Personal history of malignant neoplasm of breast; Z80.0 Family history of malignant neoplasm of digestive organs; Z84.1 Family history of disorders of kidney and ureter
CPT/HCPCS: 36415; 70450; 71046; 80053; 81000; 84443; 84484; 85025; 85027; 93005; G0378

== ENCOUNTER → 2019-09-15 | Outpatient (CLI) | payer MEDICARE, OTHER ==
[~2019-09-15] MED LIST changes: +ALPR0.254 PO; +ALPR0.5T7 PO; +AMLO5TAB9 PO; +ASPI-808 PO; +ATOR10TA66 PO; +BACL5TAB PO; +CYAN-41 PO; +DULO60CA59 PO; +ERGO50006 PO; +LABE200T7 PO; +LEVO5TAB28 PO; +LOSA100T57 PO; +MAGN400T39 PO; +MELA1TAB35 PO; +MONT10TA26 PO; +POTA20TA15 PO; +RANI150T11 PO; +ROPI1TAB PO; +SUCR1TAB PO; +TRM50T PO
--- NOTE | 2019-09-18 09:27 | Diagnostic Imaging Report ---
INDICATION: Routine screening. COMPARISON: 11/11/2017 and 03/28/2015. TECHNIQUE: 2D and 3D bilateral screening mammography was performed with CAD. FINDINGS: Both breasts are heterogeneously dense, limiting the sensitivity of mammography. The overall parenchymal pattern is stable. The intramammary lymph node in the upper outer left breast is stable. No new mass or malignant appearing microcalcifications are seen. The axillae are unremarkable. IMPRESSION: No mammographic features suspicious for malignancy are identified. ACR BI-RADS Category 2: Benign findings. Result letter will be mailed to the patient. Note: At least 10% of breast cancer is not imaged by mammography. Dictated by: Dictated on workstation # [id number]
== END ==
LOC: RAD 15:11
PROVIDERS: ATTEND Nurse Practitioner Family
DX: Z12.31 Encounter for screening mammogram for malignant neoplasm of breast (principal)
CPT/HCPCS: 77063; 77067

== ENCOUNTER 2020-05-24 18:02 | Emergency (ER) | payer MEDICARE, OTHER ==
[~2020-05-24] VITALS: Ht 167 cm; Wt 96.1 kg
[~2020-05-24 18:02] MED LIST changes: -ALPR0.254 PO; +AMLO-250 PO; -AMLO5TAB9 PO; -MONT10TA26 PO; +MONT10TA32 PO
--- NOTE | 2020-05-24 19:00 | Diagnostic Imaging Report ---
PROCEDURE: CT head, face, and cervical spine without contrast. TECHNIQUE: Multiple contiguous axial images were obtained through the head, neck, and facial bones without the use of intravenous contrast. Sagittal and coronal reformations through the cervical spine and facial bones were also performed. Auto Exposure Controls were utilized during the CT exam to meet ALARA standards for radiation dose reduction. INDICATION: Fall two hours ago. Right-sided facial pain and right arm pain and thumb pain. COMPARISON: CT head from 11/04/2018. FINDINGS: CT head: The ventricles and cortical sulci appear age-appropriate. There is no midline shift or mass effect. No acute intracranial hemorrhage is seen. There is no CT evidence of acute territorial ischemia. The calvarium appears intact. CT cervical spine: Alignment of the cervical spine demonstrates reversal of the cervical lordosis centered at C5-C6. There is advanced degenerative change at C5-C6, C6-C7, C7-T1 and T1-T2. There is minimal anterolisthesis at C3-C4 and C4-C5. Vertebral body heights are preserved. No acute fracture is seen. There is marked multilevel facet arthropathy, particularly in the upper cervical spine with osseous fusion across the right C4-C5 facet. No acute fracture is seen in the cervical spine. No bony fragments or hyperdense fluid collections are identified. CT face: There is a small amount of fluid and mucosal thickening in the right sphenoid and posterior right ethmoid sinuses. The zygomatic arches are clear. The pterygoid plates are clear. The mandible appears intact. There is fluid in the left mastoid air cells. No associated mastoid fracture is identified. The bilateral globes are intact. The orbits are unremarkable. There is a mucous retention cyst in the left maxillary sinus. IMPRESSION: 1. No acute intracranial hemorrhage or calvarium fracture. 2. No facial fracture is seen. 3. Degenerative changes in the cervical spine with no acute fracture seen. Dictated by: Dictated on workstation # [id number]
--- NOTE | 2020-05-24 19:04 | Diagnostic Imaging Report ---
HISTORY: Fall, trauma. COMPARISON: 03/18/2011. TECHNIQUE: Frontal view of the chest. FINDINGS: There is eventration of the right hemidiaphragm. No pleural effusion or pneumothorax is seen. The cardiac silhouette is stable in size. No displaced rib fractures are seen. No focal consolidation is seen. IMPRESSION:. No acute pulmonary abnormality is seen. Dictated by: Dictated on workstation # [id number]
--- NOTE | 2020-05-24 19:05 | Diagnostic Imaging Report ---
HISTORY: Fall, pelvic pain. TECHNIQUE: Frontal view of the pelvis. COMPARISON: None. FINDINGS: No acute fracture or dislocation is seen on this single frontal view the pelvis. Alignment appears normal. There are degenerative changes in the bilateral sacroiliac joints. The femoral heads are well-seated in the acetabula, bilaterally. Postsurgical changes are noted in the lumbar spine. IMPRESSION: No acute osseous abnormality is seen on this single view of the pelvis. Dictated by: Dictated on workstation # [id number]
--- NOTE | 2020-05-24 19:05 | ED Fall/Injury ---
General Chief Complaint: Trauma-Non Activation Stated Complaint: FALL Nursing Triage Note: PT PRESENTS TO ED [facility] FROM HOME WITH COMPLAITNS OF FALL APROX 2 HOURS AGO. PT REPORTS R SIDED FACIAL PAIN, R ARM AND THUMB PAIN, AND R KNEE PAIN. PT REPORTS SHE TRIPPED OUTSIDE AND HAD HER HANDS FULL SO SHE COULDNT CATCH HERSELF. PT DENIES LOC. Source: patient History of Present Illness Date Seen by Provider: May 24, 2020 Time Seen by Provider: 18:05 Initial Comments PT ARRIVES VIA EMS FROM HOME STATES SHE WAS WALKING INTO THE HOUSE, HAD HER HANDS FULL, AND TRIPPED AND FELL FORWARD, LANDING ON CONCRETE C/O PAIN TO RIGHT KNEE C/O PAIN TO RIGHT FACE AND JAW C/O PAIN TO RIGHT FOREARM AND THUMB C/O HEADACHE NO LOSS OF CONSCIOUSNESS NO VISION CHANGES NO NAUSEA/VOMITING NO PARESTHESIAS OR MOTOR DEFICITS NO DIZZINESS NO HIP PAIN NO NECK OR BACK PAIN Location Injury Occurred: HOME RESIDENCE PCP: DR. VILLALPANDO Allergies and Home Medications Allergies Coded Allergies: No Known Drug Allergies (Unverified , 09/14/09) Home Medications ALPRAZolam 0.25 Mg Tablet, 0.25 MG PO DAILY, (Reported) Alprazolam 0.5 Mg Tablet, 0.25 MG PO 1200 PRN for ANXIETY, (Reported) Alprazolam 0.5 Mg Tablet, 0.25 MG PO HS Prescribed by: BETSY CLEMENT on 11/05/18 1206 Amlodipine Besylate 5 Mg Tablet, 5 MG PO BID, (Reported) Aspirin 325 Mg Tablet, 325 MG PO DAILY, (Reported) Atorvastatin Calcium 10 Mg Tablet, 10 MG PO HS, (Reported) Cyanocobalamin (Vitamin B-12) 1,000 Mcg Tablet, 1,000 MCG PO DAILY, (Reported) Duloxetine HCl 60 Mg Capsule.dr, 60 MG PO HS, (Reported) Ergocalciferol (Vitamin D2) 50,000 Unit Capsule, 50,000 UNIT PO Tu, (Reported) Furosemide 40 Mg Tablet, 40 MG PO DAILY, (Reported) LAST FILLED #90 07-02-18 Labetalol HCl 200 Mg Tablet, 400 MG PO BID, (Reported) TAKES 2 (200MG) TABLETS Losartan Potassium 100 Mg Tablet, 100 MG PO DAILY, (Reported) Magnesium Oxide 400 Mg Tablet, 400 MG PO DAILY, (Reported) Melatonin/Lemon [place] Extr 1 Each Tablet, 1 TAB PO HS, (Reported) Montelukast Sodium 10 Mg Tablet, 10 MG PO HS, (Reported) Potassium Chloride 20 Meq Tab.er.prt, 20 MEQ PO DAILY, (Reported) LAST FILLED #30 09-08-18 Ranitidine HCl 150 Mg Tablet, 150 MG PO DAILY PRN for HEARTBURN, (Reported) Ropinirole HCl 1 Mg Tablet, 1 MG PO 1999, (Reported) Sucralfate 1 Gm Tablet, 1 GM PO BID, (Reported) Tramadol HCl 50 Mg Tablet, 50 MG PO BID, (Reported) Tramadol HCl 50 Mg Tablet, 50 MG PO Q4H Prescribed by: LUCERO EDMONDS on 05/24/202022 Patient Home Medication List Home Medication List Reviewed: Yes Review of Systems Review of Systems Constitutional: no symptoms reported Eyes: No Symptoms Reported Ears, Nose, Mouth, Throat: see HPI Respiratory: no symptoms reported; No short of breath Cardiovascular: no symptoms reported; No chest pain Gastrointestinal: no symptoms reported; No abdominal pain, No nausea, No vomiting Musculoskeletal: see HPI Skin: no symptoms reported Psychiatric/Neurological: See HPI, Headache Past Ickgabw-Wopsrz-Gvzmld Hx Past Med/Social Hx: Reviewed and Corrections made Patient Social History Alcohol Use: Denies Use Smoking Status: Never a Smoker Recent Infectious Disease Expo: No Recent Hopitalizations: No Immunizations Up To Date Date of Pneumonia Vaccine: Mar 07, 2018 Date of Influenza Vaccine: Dec 27, 2010 Past Medical History Surgeries: Yes (back 3yrs. 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: Hysterectomy, Menopausal Genitourinary: No Gastrointestinal: Yes Gastroesophageal Reflux Musculoskeletal: Yes (OSTEOARTHRITIS;BILAT KNEE REPLACEMENTS;L SHOULDER REPLACEMENT;BACK X2;RLS ) Arthritis, Chronic Back Pain Endocrine: Yes (OBESITY) HEENT: No Cancer: No Psychosocial: No Blood Disorders: No Family Medical History FH: CHF (congestive heart failure) 19 FATHER 19 MOTHER FH: breast cancer G8 SISTER FH: liver cancer G8 BROTHER Kidney disease 19 FATHER PAST SURGICAL HISTORY: -BACK SURGERY X 2 - -HYSTERECTOMY ( 3 SURGERIES ) -CHOLECYSTECTOMY -APPENDECTOMY -BILATERAL KNEE REPLACEMENTS--BOTH >20 YEARS AGO; RIGHT KNEE REPLACED BY DR. DAWSON; LEFT KNEE REPLACED BY DR. BRAND -RIGHT SHOULDER REPLACEMENT Physical Exam Vital Signs Vital Signs - First Documented 05/24/20 05/24/20 18:15 20:29 Temp 35.8 Pulse 73 Resp 20 B/P (MAP) 131/65 (87) Pulse Ox 95 O2 Delivery Room Air Capillary Refill : Less Than 3 Seconds Height, Weight, BMI Height: 5'5.00" Weight: 221lbs. 3.2oz. 100.816442mx; 34.00 BMI Method:Stated General Appearance: WD/WN, no apparent distress, obese HEENT: PERRL/EOMI, TMs normal, other (TENDERNESS TO RIGHT MANDIBLE AREA. NO CREPITANCE OR MAL-ALIGNMENT. NO ORAL INJURY. ) Neck: non-tender Cardiovascular: regular rate, rhythm, no murmur Respiratory: chest non-tender, normal breath sounds Gastrointestinal: non tender, soft Back: no CVA tenderness Extremities: normal capillary refill, other (TENDERNESS, BRUISING AND SWELLING TO RIGHT KNEE; TENDERNESS TO RIGHT MID AND DISTAL FOREARM AND TO LEFT THUMB. FULL ROM/ SENSORY/VASCULAR INTACT. ) Neurologic/Psychiatric: body presser II-XII nml as tested, no motor/sensory deficits, alert, normal mood/affect, oriented x 3 Skin: normal color, warm/dry, ecchymosis Progress/Results/Core Measures Results/Orders My Orders Orders - LUCERO EDMONDS DO Ct Head/Face/Cervical Wo (05/24/20 18:16) Chest 1 View, Ap/Pa Only (05/24/20 18:16) Forearm, Right, 2 Views (05/24/20 18:16) Hand, Right, 3 Views (05/24/20 18:16) Femur, Right, 2 Views (05/24/20 18:16) Knee, Right, 3 Views (05/24/20 18:16) Pelvis (05/24/20 18:16) Fentanyl Injection (Sublimaze Injection (05/24/20 19:15) Ct Extremity Lower Right Wo (05/24/20 19:17) Ganga Bandage (05/24/20 20:09) Knee Immobilizer (05/24/20 20:09) Rx-Hydrocodone/Apap 5-325 Mg (Rx-Vicodin (05/24/20 20:30) Medications Given in ED Vital Signs/I&O 05/24/20 05/24/20 18:15 20:29 Temp 35.8 36.0 Pulse 73 61 Resp 20 16 B/P (MAP) 131/65 (87) 130/97 (87) Pulse Ox 95 99 O2 Delivery Room Air Blood Pressure Mean: 87 Progress Progress Note : Progress Note UNEVENTFUL ER STAY PT AWARE OF CM'S CYST, AND ALSO THE GAP IN HARDWARE Diagnostic Imaging Comments CT HEAD/MAXILLOFACIAL/CERVICAL SPINE--PER RADIOLOGIST REPORT AT 1905 FINDINGS: CT head: The ventricles and cortical sulci appear age-appropriate. There is no midline shift or mass effect. No acute intracranial hemorrhage is seen. There is no CT evidence of acute territorial ischemia. The calvarium appears intact. CT cervical spine: Alignment of the cervical spine demonstrates reversal of the cervical lordosis centered at C5-C6. There is advanced degenerative change at C5-C6, C6-C7, C7-T1 and T1-T2. There is minimal anterolisthesis at C3-C4 and C4-C5. Vertebral body heights are preserved. No acute fracture is seen. There is marked multilevel facet arthropathy, particularly in the upper cervical spine with osseous fusion across the right C4-C5 facet. No acute fracture is seen in the cervical spine. No bony fragments or hyperdense fluid collections are identified. CT face: There is a small amount of fluid and mucosal thickening in the right sphenoid and posterior right ethmoid sinuses. The zygomatic arches are clear. The pterygoid plates are clear. The mandible appears intact. There is fluid in the left mastoid air cells. No associated mastoid fracture is identified. The bilateral globes are intact. The orbits are unremarkable. There is a mucous retention cyst in the left maxillary sinus. IMPRESSION: 1. No acute intracranial hemorrhage or calvarium fracture. 2. No facial fracture is seen. 3. Degenerative changes in the cervical spine with no acute fracture seen. CT RIGHT LOWER EXTREMITY--PER RADIOLOGIST REPORT AT 2002 FINDINGS: As expected, there is marked artifact from the knee prosthesis. A fracture is not identified about the right knee. There is a small gap between the prosthesis and the anterior cortex of the femur measuring 4 mm, but this is age indeterminate. Alignment otherwise appears normal. There is a large right knee joint effusion with a large posterior Cm's cyst. No fat component is seen within the effusion. There is mild edema about the knee. No focal muscular atrophy is seen. IMPRESSION: 1. While there is significant artifact from the prosthesis, no fracture is identified about the right knee. 2. Small gap between the anterior cortex of the femur and the prosthesis. This is age indeterminate. 3. Large right knee joint effusion with a large Cm's cyst. XRAYS ALL PER RADIOLOGIST REPORTS: CXR--FINDINGS: There is eventration of the right hemidiaphragm. No pleural effusion or pneumothorax is seen. The cardiac silhouette is stable in size. No displaced rib fractures are seen. No focal consolidation is seen. IMPRESSION:. No acute pulmonary abnormality is seen. RIGHT FOREARM--FINDINGS: There are degenerative changes in the wrist. There is no acute fracture or dislocation. Soft tissues are unremarkable. IMPRESSION: Degenerative changes in the wrist, otherwise unremarkable. RIGHT HAND --FINDINGS: There are degenerative changes in the wrist. There are degenerative changes along the metacarpal phalangeal joints. There is no fracture or dislocation. Soft tissues are unremarkable. IMPRESSION: Degenerative changes however no acute fracture or dislocation. PELVIS XRAY--FINDINGS: No acute fracture or dislocation is seen on this single frontal view the pelvis. Alignment appears normal. There are degenerative changes in the bilateral sacroiliac joints. The femoral heads are well-seated in the acetabula, bilaterally. Postsurgical changes are noted in the lumbar spine. IMPRESSION: No acute osseous abnormality is seen on this single view of the pelvis. RIGHT FEMUR XRAYS-- FINDINGS: There is questionable linear lucency at the distal femoral metaphysis on the frontal view. On the lateral view, there may be some cortical irregularity along the anterior cortex underlying the femoral component of the knee prosthesis. There is a small right knee joint effusion. No proximal femoral fractures are seen. IMPRESSION: 1. Questionable nondisplaced periprosthetic fracture of the distal right femur. Consider cross-sectional imaging, specifically CT, for further evaluation. XRAYS RIGHT KNEE--FINDINGS: There is a total right knee arthroplasty. There appears to be mild cortical irregularity underlying the femoral component of the knee prosthesis on the lateral view. Please refer to the femoral radiograph as well. There is also mild cortical irregularity at the inferior pole of the patella on the lateral view. There is a moderate right knee joint effusion. IMPRESSION: Findings suspicious for periprosthetic distal right femur fracture and possible nondisplaced inferior patella fracture. Although the prosthesis would result in significant artifact, CT could be considered for further evaluation. Reviewed: Reviewed by Me Departure Communication (Admissions) 2003--SPOKE WITH DR. LARKIN--HE HAS REVIEWED PT'S FILMS. PT MAY FOLLOW UP WITH DR. DAWSON OR WITH HIM NEXT WEEK FOR FOLLOW UP Impression Primary Impression: S/P FALL FROM STANDING Additional Impressions: Contusion of right knee Contusion of right forearm Minor head injury without loss of consciousness Facial contusion Disposition: HOME, SELF-CARE Condition: Stable Departure-Patient Inst. Referrals: DANIELLA VILLALPANDO MD (PCP/Family) Primary Care Physician SULTANA LARKIN MD Patient Instructions: Contusion (DC), Minor Head Injury, Adult ED, Preventing Falls in the Older Adult Add. Discharge Instructions: GANGA WRAP, KNEE IMMOBILIZER AND USE WALKER AT ALL TIMES ICE TO SORE AREAS AT 20 MINUTE INTERVALS FOLLOW UP WITH DR. LARKIN NEXT WEEK--CALL OFFICE ON WEDNESDAY TO SCHEDULE APPOINTMENT All discharge instructions reviewed with patient and/or family. Voiced under standing. Scripts Tramadol HCl (Ultram) 50 Mg Tablet 50 MG PO Q4H for Pain, #20 TAB Prov: LUCERO EDMONDS DO 05/24/20 LUCERO EDMONDS DO May 24, 2020 19:05
--- NOTE | 2020-05-24 19:06 | Diagnostic Imaging Report ---
INDICATION: Fall. EXAMINATION: Two views of the right forearm were obtained. FINDINGS: There are degenerative changes in the wrist. There is no acute fracture or dislocation. Soft tissues are unremarkable. IMPRESSION: Degenerative changes in the wrist, otherwise unremarkable. Dictated by: Dictated on workstation # [id number]
--- NOTE | 2020-05-24 19:07 | Diagnostic Imaging Report ---
HISTORY: Fall, right femur pain TECHNIQUE: 2 views of the right femur COMPARISON: None FINDINGS: There is questionable linear lucency at the distal femoral metaphysis on the frontal view. On the lateral view, there may be some cortical irregularity along the anterior cortex underlying the femoral component of the knee prosthesis. There is a small right knee joint effusion. No proximal femoral fractures are seen. IMPRESSION: 1. Questionable nondisplaced periprosthetic fracture of the distal right femur. Consider cross-sectional imaging, specifically CT, for further evaluation. Dictated by: Dictated on workstation # [id number]
--- NOTE | 2020-05-24 19:07 | Diagnostic Imaging Report ---
INDICATION: Pain after fall. FINDINGS: There are degenerative changes in the wrist. There are degenerative changes along the metacarpal phalangeal joints. There is no fracture or dislocation. Soft tissues are unremarkable. IMPRESSION: Degenerative changes however no acute fracture or dislocation. Dictated by: Dictated on workstation # [id number]
--- NOTE | 2020-05-24 19:09 | Diagnostic Imaging Report ---
HISTORY: Fall, knee pain. TECHNIQUE: Three views of the right knee. COMPARISON: None. FINDINGS: There is a total right knee arthroplasty. There appears to be mild cortical irregularity underlying the femoral component of the knee prosthesis on the lateral view. Please refer to the femoral radiograph as well. There is also mild cortical irregularity at the inferior pole of the patella on the lateral view. There is a moderate right knee joint effusion. IMPRESSION: Findings suspicious for periprosthetic distal right femur fracture and possible nondisplaced inferior patella fracture. Although the prosthesis would result in significant artifact, CT could be considered for further evaluation. Dictated by: Dictated on workstation # [id number]
[2020-05-24] MEDS ORDERED: fentaNYL INJECTION 100 MCG/2 ML AMP IM ONE (19:15)
--- NOTE | 2020-05-24 19:57 | Diagnostic Imaging Report ---
PROCEDURE: CT right lower extremity without contrast. TECHNIQUE: Axially acquired CT was obtained through the right lower extremity without intravenous contrast. Coronal and sagittal reformations were also performed. Auto Exposure Controls were utilized during the CT exam to meet ALARA standards for radiation dose reduction. INDICATION: Fall, possible fracture about the knee. COMPARISON: Radiographs from the same day. FINDINGS: As expected, there is marked artifact from the knee prosthesis. A fracture is not identified about the right knee. There is a small gap between the prosthesis and the anterior cortex of the femur measuring 4 mm, but this is age indeterminate. Alignment otherwise appears normal. There is a large right knee joint effusion with a large posterior Cm's cyst. No fat component is seen within the effusion. There is mild edema about the knee. No focal muscular atrophy is seen. IMPRESSION: 1. While there is significant artifact from the prosthesis, no fracture is identified about the right knee. 2. Small gap between the anterior cortex of the femur and the prosthesis. This is age indeterminate. 3. Large right knee joint effusion with a large Cm's cyst. Dictated by: Dictated on workstation # [id number]
[2020-05-24] MEDS ORDERED: TRAM-42 PO (20:23)
[2020-05-24 20:29] VITALS: BP 130/97
[2020-05-24] MEDS ORDERED: RX-HYDROCODONE/APAP 5/325 MG #4 TAB PK PO PRN (20:30)
== END 2020-05-24 20:30 | disposition home or self-care (01) ==
LOC: EDUNIT# 18:02 → ER 18:05
DX: S80.01XA Contusion of right knee, initial encounter (principal); S50.11XA Contusion of right forearm, initial encounter; S00.83XA Contusion of other part of head, initial encounter; S09.90XA Unspecified injury of head, initial encounter; E66.9 Obesity, unspecified; E78.00 Pure hypercholesterolemia, unspecified; K21.9 Gastro-esophageal reflux disease without esophagitis; I10 Essential (primary) hypertension; Z68.34 Body mass index [BMI] 34.0-34.9, adult; Z80.3 Family history of malignant neoplasm of breast; Z82.49 Family history of ischemic heart disease and other diseases of the circulatory system; Z80.0 Family history of malignant neoplasm of digestive organs; Z79.82 Long term (current) use of aspirin; W01.0XXA Fall on same level from slipping, tripping and stumbling without subsequent striking against object, initial encounter
CPT/HCPCS: 70450; 70486; 71045; 72125; 72170; 73090; 73130; 73552; 73562; 73700; 99283; L1830

== ENCOUNTER 2020-10-04 08:49 | Inpatient (IN) | payer MEDICARE, OTHER ==
[~2020-10-04] VITALS: Ht 167 cm; Wt 96.0 kg
[~2020-10-04 08:49] MED LIST changes: +TRAM-42 PO
[2020-10-04] MEDS ORDERED: ACETAMINOPHEN 500 MG TAB (TYLENOL) ONE (09:19)
[2020-10-04] MEDS ORDERED: NS IV 1000 ML 1,000 ML ONE (09:19)
[2020-10-04] MEDS ORDERED: ACETAMINOPHEN 500 MG TAB (TYLENOL) PO STA (09:21)
[2020-10-04] MEDS ORDERED: NS IV 1000 ML 1,000 ML IV SCH (09:30)
[2020-10-04 09:32] LABS: BASOPHILS % (AUTO) 0 % (0-10); EOSINOPHILS % (AUTO) 0 % (0-10); HEMATOCRIT 37 % (35-52); LYMPHOCYTES # (AUTO) 0.9 10^3/uL (1.0-4.0); LYMPHOCYTES % (AUTO) 26 % (12-44); MEAN CORPUSCULAR HEMOGLOBIN 26 pg (25-34); MEAN CORPUSCULAR HGB CONC 32 g/dL (32-36); MEAN CORPUSCULAR VOLUME 82 fL (80-99); MEAN PLATELET VOLUME 10.1 fL (9.0-12.2); MONOCYTES # (AUTO) 0.2 10^3/uL (0.0-1.0); MONOCYTES % (AUTO) 5 % (0-12); NEUTROPHILS # (AUTO) 2.3 10^3/uL (1.8-7.8); NEUTROPHILS % (AUTO) 68 % (42-75); PLATELET COUNT 149 10^3/uL (130-400); WHITE BLOOD COUNT 3.3 10^3/uL (4.3-11.0)
[2020-10-04 09:34] LABS: ALBUMIN 3.8 GM/DL (3.2-4.5); POTASSIUM 3.2 MMOL/L (3.6-5.0)
[2020-10-04 09:35] LABS: CALCIUM 8.4 MG/DL (8.5-10.1)
[2020-10-04 09:36] LABS: TOTAL PROTEIN 6.6 GM/DL (6.4-8.2)
[2020-10-04 09:42] LABS: BILIRUBIN,TOTAL 0.5 MG/DL (0.1-1.0); CREATININE SERUM 1.26 MG/DL (0.60-1.30); FIBRIN DEGRADATION PRODUCTS 0.84 UG/ML (0.00-0.49); PROTHROMBIN TIME PATIENT 13.9 SEC (12.2-14.7)
--- NOTE | 2020-10-04 10:06 | ED General ---
General Chief Complaint: Cough/Cold/Flu Symptoms Stated Complaint: SOB POSS COVID Nursing Triage Note: PT ARRIVED PER EMS, PT CO OF BEING SICK FOR 1 WEEK, PT HAS HAD FEVER, COUGH, DIARREHA, LOSS OF TASTE AND SMELL, BODY ACHES, WEAKNESS AND FATIGUE. PT WAS EXPOSED TO COVID . PT O2 SAT UPON ARRIVAL RA 89%. O2 PUT ON PT @2L. SAT UP TO 94% Source of Information: Patient, EMS Exam Limitations: No Limitations History of Present Illness Date Seen by Provider: Oct 04, 2020 Time Seen by Provider: 09:05 Initial Comments Here with report of being sick for about a week with fever and cough as well as diarrhea. Onset last Wednesday after exposure to her 's daughter on Wednesday. Apparently that person was sick but has not been tested. Patient reports she was in to be tested for COVID-19 today. Does report loss of taste, body aches and weakness. She is requiring oxygen. Patient not normally on oxygen. Timing/Duration: 1 Week Severity: Moderate Associated Systoms: Cough, Fever/Chills, Loss of Appetite, Malaise, Nausea/Vomiting, Shortness of Air, Weakness Allergies and Home Medications Allergies Coded Allergies: No Known Drug Allergies (Unverified , 09/14/09) Home Medications ALPRAZolam 0.25 Mg Tablet, 0.25 MG PO DAILY, (Reported) Alprazolam 0.5 Mg Tablet, 0.25 MG PO 1200 PRN for ANXIETY, (Reported) Alprazolam 0.5 Mg Tablet, 0.25 MG PO HS Prescribed by: BETSY CLEMENT on 11/05/18 1206 Amlodipine Besylate 5 Mg Tablet, 5 MG PO BID, (Reported) Aspirin 325 Mg Tablet, 325 MG PO DAILY, (Reported) Atorvastatin Calcium 10 Mg Tablet, 10 MG PO HS, (Reported) Cyanocobalamin (Vitamin B-12) 1,000 Mcg Tablet, 1,000 MCG PO DAILY, (Reported) Duloxetine HCl 60 Mg Capsule.dr, 60 MG PO HS, (Reported) Ergocalciferol (Vitamin D2) 50,000 Unit Capsule, 50,000 UNIT PO Tu, (Reported) Furosemide 40 Mg Tablet, 40 MG PO DAILY, (Reported) LAST FILLED #90 07-02-18 Labetalol HCl 200 Mg Tablet, 400 MG PO BID, (Reported) TAKES 2 (200MG) TABLETS Losartan Potassium 100 Mg Tablet, 100 MG PO DAILY, (Reported) Magnesium Oxide 400 Mg Tablet, 400 MG PO DAILY, (Reported) Melatonin/Lemon [place] Extr 1 Each Tablet, 1 TAB PO HS, (Reported) Montelukast Sodium 10 Mg Tablet, 10 MG PO HS, (Reported) Potassium Chloride 20 Meq Tab.er.prt, 20 MEQ PO DAILY, (Reported) LAST FILLED #30 09-08-18 Ranitidine HCl 150 Mg Tablet, 150 MG PO DAILY PRN for HEARTBURN, (Reported) Ropinirole HCl 1 Mg Tablet, 1 MG PO 1999, (Reported) Sucralfate 1 Gm Tablet, 1 GM PO BID, (Reported) Tramadol HCl 50 Mg Tablet, 50 MG PO BID, (Reported) Tramadol HCl 50 Mg Tablet, 50 MG PO Q4H Prescribed by: LUCERO EDMONDS on 05/24/202022 Patient Home Medication List Home Medication List Reviewed: Yes Review of Systems Review of Systems Constitutional: see HPI, chills, fever EENTM: nose congestion, throat pain Respiratory: cough, short of breath Cardiovascular: No chest pain, No edema Gastrointestinal: No abdominal pain; diarrhea, nausea Genitourinary: no symptoms reported Musculoskeletal: see HPI, muscle pain Skin: no symptoms reported Psychiatric/Neurological: No Symptoms Reported All Other Systems Reviewed Negative Unless Noted: Yes Past Ovikwvq-Jqozfa-Golhrj Hx Patient Social History Tobacco Use?: No Substance use?: No Alcohol Use?: No Past Medical History Surgeries: Yes (back 3yrs. 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 History: Hysterectomy, Menopausal Genitourinary: No Gastrointestinal: Yes Gastroesophageal Reflux Musculoskeletal: Yes (OSTEOARTHRITIS;BILAT KNEE REPLACEMENTS;L SHOULDER REPLACEMENT;BACK X2;RLS ) Arthritis, Chronic Back Pain Endocrine: Yes (OBESITY) HEENT: No Cancer: No Psychosocial: No Blood Disorders: No Family Medical History Reviewed Nursing Family Hx FH: CHF (congestive heart failure) 19 FATHER 19 MOTHER FH: breast cancer G8 SISTER FH: liver cancer G8 BROTHER Kidney disease 19 FATHER PAST SURGICAL HISTORY: -BACK SURGERY X 2 - -HYSTERECTOMY ( 3 SURGERIES ) -CHOLECYSTECTOMY -APPENDECTOMY -BILATERAL KNEE REPLACEMENTS--BOTH >20 YEARS AGO; RIGHT KNEE REPLACED BY DR. DAWSON; LEFT KNEE REPLACED BY DR. BRAND -RIGHT SHOULDER REPLACEMENT Physical Exam-Suspected Sepsis Physical Exam Vital Signs Vital Signs - First Documented Capillary Refill : Blood Pressure Mean: 108 Height, Weight, BMI Height: 5'5.00" Weight: 221lbs. 3.2oz. 100.527710tz; 34.00 BMI Method:Stated General Appearance: WD/WN, Mild Distress HEENT: PERRL/EOMI, Other (Mucous membranes dry) Neck: Non Tender, Supple Respiratory: Lungs Clear, Normal Breath Sounds Cardiovascular: Regular Rate, Rhythm, No Murmur Gastrointestinal: Non Tender, Soft Back: Normal Inspection, No CVA Tenderness, No Vertebral Tenderness Extremity: Normal Range of Motion, Non Tender Neurologic/Psychiatric: Alert, Oriented x3 Skin: normal color, warm/dry Focused Exam Lactate Level 10/04/20 09:00: Lactic Acid Level 0.89 Lactic Acid Level Laboratory Tests Test 10/04/20 09:00 Lactic Acid Level 0.89 MMOL/L (0.50-2.00) Progress/Results/Core Measures Suspected Sepsis SIRS Temperature: Pulse: 72 Respiratory Rate: 17 Laboratory Tests 10/04/20 09:00: White Blood Count 3.3L Blood Pressure 143 /91 Mean: 108 10/04/20 09:00: Lactic Acid Level 0.89 Laboratory Tests 10/04/20 09:00: Creatinine 1.26, INR Comment 1.0, Platelet Count 149, Total Bilirubin 0.5 Results/Orders Lab Results Laboratory Tests Test 10/04/20 09:00 Range/Units White Blood Count 3.3 L 4.3-11.0 10^3/uL Red Blood Count 4.56 3.80-5.11 10^6/uL Hemoglobin 12.0 11.5-16.0 g/dL Hematocrit 37 35-52 % Mean Corpuscular Volume 82 80-99 fL Mean Corpuscular Hemoglobin 26 25-34 pg Mean Corpuscular Hemoglobin Concent 32 32-36 g/dL Red Cell Distribution Width 15.4 H 10.0-14.5 % Platelet Count 149 130-400 10^3/uL Mean Platelet Volume 10.1 9.0-12.2 fL Immature Granulocyte % (Auto) 0 % Neutrophils (%) (Auto) 68 42-75 % Lymphocytes (%) (Auto) 26 12-44 % Monocytes (%) (Auto) 5 0-12 % Eosinophils (%) (Auto) 0 0-10 % Basophils (%) (Auto) 0 0-10 % Neutrophils # (Auto) 2.3 1.8-7.8 10^3/uL Lymphocytes # (Auto) 0.9 L 1.0-4.0 10^3/uL Monocytes # (Auto) 0.2 0.0-1.0 10^3/uL Eosinophils # (Auto) 0.0 0.0-0.3 10^3/uL Basophils # (Auto) 0.0 0.0-0.1 10^3/uL Immature Granulocyte # (Auto) 0.0 0.0-0.1 10^3/uL Prothrombin Time 13.9 12.2-14.7 SEC INR Comment 1.0 0.8-1.4 Activated Partial Thromboplast Time 30 24-35 SEC D-Dimer 0.84 H 0.00-0.49 UG/ML Sodium Level 137 135-145 MMOL/L Potassium Level 3.2 L 3.6-5.0 MMOL/L Chloride Level 101 98-107 MMOL/L Carbon Dioxide Level 24 21-32 MMOL/L Anion Gap 12 5-14 MMOL/L Blood Urea Nitrogen 13 7-18 MG/DL Creatinine 1.26 0.60-1.30 MG/DL Estimat Glomerular Filtration Rate 42 BUN/Creatinine Ratio 10 Glucose Level 104 70-105 MG/DL Lactic Acid Level 0.89 0.50-2.00 MMOL/L Calcium Level 8.4 L 8.5-10.1 MG/DL Corrected Calcium 8.6 8.5-10.1 MG/DL Total Bilirubin 0.5 0.1-1.0 MG/DL Aspartate Amino Transf (AST/SGOT) 23 5-34 U/L Alanine Aminotransferase (ALT/SGPT) 17 0-55 U/L Alkaline Phosphatase 69 40-136 U/L C-Reactive Protein High Sensitivity 1.64 H 0.00-0.50 MG/DL Total Protein 6.6 6.4-8.2 GM/DL Albumin 3.8 3.2-4.5 GM/DL Procalcitonin 0.05 <0.10 NG/ML Influenza Type A (RT-PCR) Not Detected Not Detecte Influenza Type B (RT-PCR) Not Detected Not Detecte SARS-CoV-2 RNA (RT-PCR) Detected H Not Detecte My Orders Orders - TARSHA ANDERSON MD Acetaminophen Tablet (Tylenol Tablet) (10/04/20 09:19) Ns Iv 1000 Ml (Sodium Chloride 0.9%) (10/04/20 09:19) Cbc With Automated Diff (10/04/20 09:21) Comprehensive Metabolic Panel (10/04/20 09:21) Blood Culture (10/04/20 09:21) Sputum Culture (10/04/20 09:21) Urinalysis (10/04/20 09:21) Urine Culture (10/04/20:21) Protime With Inr (10/04/20:21) Partial Thromboplastin Time (10/04/20 09:21) Chest 1 View, Ap/Pa Only (10/04/20 09:21) Ed Iv/Invasive Line Start (10/04/20 09:21) Vital Signs Adult Sepsis Patie Q15M (10/04/20 09:21) O2 (10/04/20 09:21) Remove Rings In Anticipation O (10/04/20 09:21) Lactic Acid Analyzer (10/04/20 09:21) Ns Iv 1000 Ml (Sodium Chloride 0.9%) (10/04/20 09:30) Fibrin Degradation Products (10/04/20 09:21) Procalcitonin (Pct) (10/04/20 09:21) Hs C Reactive Protein (10/04/20 09:21) Covid 19 Inhouse Test (10/04/20 09:21) Influenza A And B By Pcr (10/04/20 09:21) Acetaminophen Tablet (Tylenol Tablet) (10/04/20 09:21) Dexamethasone Tablet (Decadron Tablet) (10/04/20 10:12) Medications Given in ED Current Medications Medications Dose Ordered Sig/Ju Route Start Time Stop Time Status Last Admin Dose Admin Acetaminophen 500 mg STK-MED ONCE .ROUTE 10/04/20 09:19 10/04/20 09:21 DC 10/04/20 09:24 1,000 MG Sodium Chloride 1,000 ml @ STK-MED ONCE .ROUTE 7/9/21 09:19 10/04/20:21 DC 10/04/20 09:24 1,000 MLS/HR Vital Signs/I&O 10/04/20 10/04/20 09:00 09:00 Temp 38.3 Pulse 72 Resp 17 B/P (MAP) 143/91 (108) Pulse Ox 94 94 O2 Delivery Nasal Cannula Nasal Cannula O2 Flow Rate 2.00 2.00 Capillary Refill : Blood Pressure Mean: 108 Progress Note : Progress Note Seen and evaluated. Patient is febrile. Tylenol 1 g p.o. ordered. Sepsis protocol initiated. Normal saline 1 L bolus ordered. We will get Covid and influenza testing as well. Monitor patient. 1005: Patient is COVID-19 positive. She is requiring oxygen at 2 L to keep sats greater than 90% and is currently at 93%. Patient will require hospitalization. Decadron 6 mg p.o. ordered. Family informed. 1030: I did discuss the case with Dr. Lao. Patient is hypoxic and requires admission. She agrees. Admit, inpatient status. Patient agrees with plan. Diagnostic Imaging Diagonstic Imaging: Xray Plain Films/CT/US/NM/MRI: chest Comments NAME: [facility] REC#: [id number] PT STATUS: REG ER : 1950 PHYSICIAN: TARSHA ANDERSON MD ADMIT DATE: 10/04/20/ER Draft Date of Exam:10/04/20 CHEST 1 VIEW, AP/PA ONLY INDICATION: Infection. Comparison made with prior examination of 05/24/2020. FINDINGS: The heart size, mediastinal configuration, and pulmonary vascularity are within normal limits. There is no pleural effusion, pneumothorax, or pneumonia. The osseous structures are unremarkable. IMPRESSION: No acute cardiopulmonary abnormality. Dictated on workstation # [id number] Dict: 10/04/20 1009 Trans: 10/04/20 1010 CVB [id number] Interpreted by: BASILIO BIANCHI MD Electronically signed by: Departure Communication (Admissions) Time/Spoke to Admitting Phy: 10:30 Impression Primary Impression: COVID-19 virus infection Additional Impression: Hypoxia Disposition: ADMITTED INPATIENT Condition: Stable Admissions Decision to Admit Reason: Admit from ER (General) Decision to Admit/Date: Oct 04, 2020 Time/Decision to Admit Time: 10:30 Departure-Patient Inst. Referrals: DANIELLA LAO MD (PCP/Family) Primary Care Physician TARSHA ANDERSON MD Oct 04, 2020 10:06
--- NOTE | 2020-10-04 10:10 | Diagnostic Imaging Report ---
INDICATION: Infection. Comparison made with prior examination of 05/24/2020. FINDINGS: The heart size, mediastinal configuration, and pulmonary vascularity are within normal limits. There is no pleural effusion, pneumothorax, or pneumonia. The osseous structures are unremarkable. IMPRESSION: No acute cardiopulmonary abnormality. Dictated by: Dictated on workstation # [id number]
[2020-10-04] MEDS ORDERED: dexAMETHasone 6 MG TAB (DECADRON) PO STA (10:12)
--- NOTE | 2020-10-04 11:56 | Pulmonary Consultation ---
History of Present Illness History of Present Illness Date Seen by Provider: Oct 04, 2020 Time Seen by Provider: 11:51 Date of Admission 10/04/2020 History of Present Illness She is a 70-year-old female with past medical history of hypertension and has not received a Covid vaccine so far presents with the emergency room with a complaint that she has feeling on week, shortness of breath coughing with minimal sputum production. She is short of breath. Upon arrival to the [facility] room she is hypoxic requiring supplemental oxygen. She she tested positive for Covid. A pulmonary consultation is requested by the attending physician. I have made a video visit and discussed with the patient and bedside RN. I have reviewed her chest x-ray. She denies any history of smoking or diabetes mellitus or any congestive heart failure. Apparently her also has similar symptoms and tested positive for Covid today in the emergency room and he is also being admitted. Apparently her daughter and son-in-law presented earlier with the similar symptoms and she tells me that they give her the infection. They did not attending any big functions recently. Allergies and Home Medications Allergies Coded Allergies: No Known Drug Allergies (Unverified , 09/14/09) Home Medications ALPRAZolam 0.25 Mg Tablet, 0.25 MG PO DAILY, (Reported) Alprazolam 0.5 Mg Tablet, 0.25 MG PO 1200 PRN for ANXIETY, (Reported) Alprazolam 0.5 Mg Tablet, 0.25 MG PO HS Prescribed by: BETSY CLEMENT on 11/05/18 1206 Amlodipine Besylate 5 Mg Tablet, 5 MG PO BID, (Reported) Aspirin 325 Mg Tablet, 325 MG PO DAILY, (Reported) Atorvastatin Calcium 10 Mg Tablet, 10 MG PO HS, (Reported) Cyanocobalamin (Vitamin B-12) 1,000 Mcg Tablet, 1,000 MCG PO DAILY, (Reported) Duloxetine HCl 60 Mg Capsule.dr, 60 MG PO HS, (Reported) Ergocalciferol (Vitamin D2) 50,000 Unit Capsule, 50,000 UNIT PO Tu, (Reported) Furosemide 40 Mg Tablet, 40 MG PO DAILY, (Reported) LAST FILLED #90 07-02-18 Labetalol HCl 200 Mg Tablet, 400 MG PO BID, (Reported) TAKES 2 (200MG) TABLETS Losartan Potassium 100 Mg Tablet, 100 MG PO DAILY, (Reported) Magnesium Oxide 400 Mg Tablet, 400 MG PO DAILY, (Reported) Melatonin/Lemon [place] Extr 1 Each Tablet, 1 TAB PO HS, (Reported) Montelukast Sodium 10 Mg Tablet, 10 MG PO HS, (Reported) Potassium Chloride 20 Meq Tab.er.prt, 20 MEQ PO DAILY, (Reported) LAST FILLED #30 6-13-19 Ranitidine HCl 150 Mg Tablet, 150 MG PO DAILY PRN for HEARTBURN, (Reported) Ropinirole HCl 1 Mg Tablet, 1 MG PO 2000, (Reported) Sucralfate 1 Gm Tablet, 1 GM PO BID, (Reported) Tramadol HCl 50 Mg Tablet, 50 MG PO BID, (Reported) Tramadol HCl 50 Mg Tablet, 50 MG PO Q4H Prescribed by: LUCERO EDMONDS on 05/24/202022 Past Medical/Social/Family Hx Patient Social History Marrital Status: Employed/Student: retired Tobacco Use?: No Smoking Status: Never a Smoker Substance use?: No Alcohol Use?: No Pt stated abuse/neglect: No Immunizations Up To Date First/Initial COVID19 Vaccinat: no Second COVID19 Vaccination Ok: no Date of Pneumonia Vaccine: Mar 07, 2018 Current Status Advance Directives: No Communicates: Verbally Primary Language: [place] Preferred Spoken Language: [place] Is interpretation needed?: No Sensory deficits: Vision impairment Implanted or Applied Medical D: None Past Medical History HTN Family Medical History Family Hx: PAST SURGICAL HISTORY: -BACK SURGERY X 2 - -HYSTERECTOMY ( 3 SURGERIES ) -CHOLECYSTECTOMY -APPENDECTOMY -BILATERAL KNEE REPLACEMENTS--BOTH >20 YEARS AGO; RIGHT KNEE REPLACED BY DR. DAWSON; LEFT KNEE REPLACED BY DR. BRAND -RIGHT SHOULDER REPLACEMENT Review of Systems Constitutional: see HPI Sepsis Event Evaluation Height, Weight, BMI Height: 5'5.00" Weight: 221lbs. 3.2oz. 100.019090xv; 34.42 BMI Method:Stated Exam Exam Patient acknowledged, consented, and participated in this virtual visit which was conducted using real time audio/video Vital Signs Date Time Temp Pulse Resp B/P (MAP) Pulse Ox O2 Delivery O2 Flow Rate FiO2 10/04/20 11:00 60 17 124/82 (108) 94 Nasal Cannula 2.00 10/04/20 09:00 94 Nasal Cannula 2.00 10/04/20 09:00 Nasal Cannula 2.00 10/04/20 09:00 38.3 72 17 143/91 (108) 94 Nasal Cannula 2.00 Height & Weight Height: 5'5.00" Weight: 221lbs. 3.2oz. 100.160757qt; 34.42 BMI Method:Stated General Appearance: WD/WN, Mild Distress HEENT: PERRL/EOMI, Other (Mucous membranes dry) Neck: Non Tender, Supple Respiratory: Lungs Clear, Normal Breath Sounds Cardiovascular: Regular Rate, Rhythm, No Murmur Extremity: Normal Range of Motion, Non Tender Neurologic/Psychiatric: Alert, Oriented x3 Results Lab Laboratory Tests 10/04/20 09:00 Meds reviewed Radiology cxr reviewed by me via PACS Assessment/Plan Assessment/Plan 1. Acute Covid pneumonia 2. Acute hypoxic respiratory failure requiring supplemental oxygen 3. Dehydration with acute kidney injury 4. Hypokalemia 5. Elevated D-dimer 6. Slight neutropenia and lymphopenia probably due to Covid infection 7. History of hypertension. Recommendations 1. We will hydrate the patient and replete potassium 2. We will give IV Decadron and start on remdesivir 3. DVT prophylaxis 4. We will monitor D-dimer, BUN/creatinine and potassium 5. Use supplemental oxygen via nasal cannula. 6. Symptomatic treatment for myalgia and cough. 7. Discussed with the patient via video visit and also with the bedside RN. Thank you very much for this consultation Time spent with patient (mins): 60 Diagnosis/Problems Problems/Diagonsis (1) Pneumonia due to COVID-19 virus (2) COVID-19 vaccination not done (3) Acute respiratory failure with hypoxia (4) MARIKA (acute kidney injury) (5) Hypokalemia due to loss of potassium FELY WARREN MD Oct 04, 2020 11:56
[2020-10-04 12:00] VITALS: BP 133/81
[2020-10-04] MEDS ORDERED: KCL 10 MEQ TAB (MICRO K) PO ONE (12:15)
[2020-10-04] MEDS ORDERED: REMDESIVIR INJ 200 MG in NS (IVPB) 210 ML IV ONE (12:15)
--- NOTE | 2020-10-04 12:20 | History & Physicial ---
History of Present Illness History of Present Illness Reason for visit/HPI PT IS AN 82 YO MALE WHO IS WELL KNOWN TO ME FROM CLINIC. PER REPORT, PT WAS EXPOSED TO HER DTR WHO WAS COVID POSITIVE IN THE PAST 2 WEEK S. SHE STARTED TO FEEL POORLY ON 09/27/2020 AND WAS FEELING INCREASINGLY WEAK AND LETHARGIC OVER THIS PAST WEEK. SHE WAS NOT EATING WELL AND HER SPOUSE IS ALSO ILL. [facility] CALLED MY OFFICE YESTERDAY TO 'GET SOMETHING CALLED OUT' - HOWEVER WE ADVISED HER MULTIPLE TIMES THAT SHE NEEDS TO BE TESTED FOR COVID AND TREATED FOR COVID INSTEAD OF JUST "CALLING OUT" MEDICATIONS. THEY REFUSED TO GET TESTED SHE PRESENTED TO THE HOSPITAL WITH SHORTNESS OF BREATH AND DIZZINESS AND DEHYDRATION SYMPTOMS. Date of Admission Oct 04, 2020 at 10:35 Date Seen by a Provider: Oct 04, 2020 Time Seen by a Provider: 13:40 Attending Physician Marilyn Lao MD Admitting Physician Marilyn Lao MD Consult E-PULMONARY CONSULT Allergies and Home Medications Allergies Coded Allergies: No Known Drug Allergies (Unverified , 09/14/09) Home Medications Alprazolam 0.5 Mg Tablet, 0.5 MG PO DAILY, (Reported) Last Action: Reviewed Alprazolam 0.5 Mg Tablet, 0.25 MG PO HS, (Reported) Last Action: Reviewed Amlodipine Besylate 5 Mg Tablet, 5 MG PO HS, (Reported) Last Action: Continued Amoxicillin/Potassium Clav 1 Each Tablet, 1 EA PO BID, (Reported) FILLED 10-02-2020 #14/7 DAY SUPPLY Last Action: Held Aspirin 325 Mg Tablet, 325 MG PO DAILY, (Reported) Last Action: Continued Atorvastatin Calcium 10 Mg Tablet, 10 MG PO HS, (Reported) Last Action: Reviewed Duloxetine HCl 60 Mg Capsule.dr, 60 MG PO DAILY, (Reported) Last Action: Converted Furosemide 40 Mg Tablet, 40 MG PO DAILY, (Reported) Last Action: Held Hydrocodone/Acetaminophen 1 Each Tablet, 1 EA PO Q8H PRN for PAIN-MODERATE (5- 7), (Reported) Last Action: Continued Labetalol HCl 200 Mg Tablet, 400 MG PO BID, (Reported) TAKES 2 (200MG) TABLETS Last Action: Continued Losartan Potassium 100 Mg Tablet, 100 MG PO DAILY, (Reported) Last Action: Held Magnesium Oxide 250 Mg Tablet, 250 MG PO DAILY, (Reported) Last Action: Held Melatonin 10 Mg Tablet, 10 MG PO HS, (Reported) Last Action: Continued Montelukast Sodium 10 Mg Tablet, 10 MG PO HS, (Reported) Last Action: Continued Pantoprazole Sodium 40 Mg Tablet.dr, 40 MG PO DAILY, (Reported) Last Action: Held Pregabalin 50 Mg Capsule, 50 MG PO TID, (Reported) Last Action: Continued Ropinirole HCl 1 Mg Tablet, 1 MG PO HS, (Reported) Last Action: Continued Sucralfate 1 Gm Tablet, 1 GM PO BID PRN for ULCER FLARE, (Reported) Last Action: Continued Tramadol HCl 50 Mg Tablet, 50-100 MG PO BID PRN for PAIN-MODERATE (5-7), (Reported) Last Action: Held Patient Home Medication List Home Medication List Reviewed: Yes Past Isckngn-Hokvnu-Faluhu Hx Patient Social History Marrital Status: Living Status: LIVES AT HOME [place] WITH SPOUSE Employed/Student: retired Smoking Status: Never a Smoker Recent Hopitalizations: No Have you traveled recently?: No Alcohol Use?: No Pt feels they are or have been: No Immunizations Up To Date Date of Pneumonia Vaccine: Mar 07, 2018 Date of Influenza Vaccine: Dec 27, 2010 Surgeries Yes (back 3yrs. ago, 1994 gall bladder removed, knee replacement 2001) Appendectomy, Section, Gallbladder, Hysterectomy, Joint Replacement, Orthopedic Respiratory No Cardiovascular Yes High Cholesterol, Hypertension Neurological No (RESTLESS LEG SYNDROME) Reproductive System Hx Reproductive Disorders: Yes Female Reproductive Disorders: Menstrual Problems MAGNETIC LOCATER History: Hysterectomy, Menopausal Genitourinary No Gastrointestinal Yes Gastroesophageal Reflux Musculoskeletal Yes (OSTEOARTHRITIS;BILAT KNEE REPLACEMENTS;L SHOULDER REPLACEMENT;BACK X2;RLS ) Arthritis, Chronic Back Pain Endocrine History of Endocrine Disorders: Yes (OBESITY) HEENT History of HEENT Disorders: No Cancer No Psychosocial History of Psychiatric Problem: No Blood Transfusions History of Blood Disorders: No Reviewed Nursing Assessment Reviewed/Agree w Nursing PMH: Yes Family Medical History Significant Family History: Heart Disease, Cancer, Hypertension, Renal Disease Other Significan Family Hx: PAST SURGICAL HISTORY: -BACK SURGERY X 2 - -HYSTERECTOMY ( 3 SURGERIES ) -CHOLECYSTECTOMY -APPENDECTOMY -BILATERAL KNEE REPLACEMENTS--BOTH >20 YEARS AGO; RIGHT KNEE REPLACED BY DR. DAWSON; LEFT KNEE REPLACED BY DR. BRAND -RIGHT SHOULDER REPLACEMENT Family Hx: FH: CHF (congestive heart failure) 19 FATHER 19 MOTHER FH: breast cancer G8 SISTER FH: liver cancer G8 BROTHER Kidney disease 19 FATHER Review of Systems Constitutional: chills; No diaphoresis; dizziness, weakness EENTM: No hoarseness, No throat pain Respiratory: cough, dyspnea on exertion, short of breath Cardiovascular: No chest pain Gastrointestinal: No abdominal pain, No constipation, No diarrhea; heartburn, nausea; No vomiting Genitourinary: no symptoms reported Musculoskeletal: muscle weakness Skin: no symptoms reported Psychiatric/Neurological: Anxiety, Depressed (CHRONIC), Weakness All Other Systems Reviewed Negative Unless Noted: Yes Physical Exam Vital Signs Vital Signs - First Documented Capillary Refill : Height, Weight, BMI Height: 5'5.00" Weight: 221lbs. 3.2oz. [id number]; 34.42 BMI Method:Stated General Appearance: WD/WN, Mild Distress Eyes: Bilateral Eye Normal Inspection, Bilateral Eye PERRL, Bilateral Eye EOMI HEENT: PERRL/EOMI, Pharynx Normal Neck: Full Range of Motion, Normal Inspection, Non Tender, Supple Respiratory: Chest Non Tender, Lungs Clear, Normal Breath Sounds, No Accessory Muscle Use, No Respiratory Distress Cardiovascular: Regular Rate, Rhythm, No Edema, Normal Peripheral Pulses Gastrointestinal: Normal Bowel Sounds, Non Tender, Soft Rectal: Deferred Back: Normal Inspection Extremity: Normal Capillary Refill, No Calf Tenderness, No Pedal Edema Neurologic/Psychiatric: Alert, Oriented x3, No Motor/Sensory Deficits, Normal Mood/Affect Skin: Normal Color, Warm/Dry Lymphatic: No Adenopathy Assessment/Plan Assessment and Plan ACUTE RESPIRATORY FAILURE COVID 19 PNEUMONIA ACUTE RENAL FAILURE HYPOKALEMIA ANXIETY DEPRESSION HYPERTENSION ESOPHAGEAL REFLUX RESTLESS LEG SYNDROME ACUTE RESPIRATORY FAILURE DUE TO COVID 19 PNEUMONIA - PT ON REMDESIVIR, STEROIDS, AND BREATHING TREATMENTS, SUPPORTIVE CARE AT THIS TIME. - REPEAT CXR TOMORROW ACUTE RENAL FAILURE - SUPPORTIVE CARE, PUSH FLUIDS, MONITOR SYMPTOMS HYPOKALEMIA - REPLENISH WITH IV FLUIDS ANXIETY AND DEPRESSION - RESTART ALPRAZOLAM - RESTART DULOXETINE HYPERTENSION - RESUME HOME REGIMEN ESOPHAGEAL REFLUX - RESTART PPI AND CARAFATE RESTLESS LEG SYNDROME - RESUME ROPINIROLE DVT PROPHYLAXIS WITH LOVENOX AND SCD'S GI PROPHYLAXIS WITH PPI Problems: (1) Pneumonia due to COVID-19 virus Status: Acute (2) COVID-19 vaccination not done Status: Acute (3) Acute respiratory failure with hypoxia Status: Acute (4) MARIKA (acute kidney injury) Status: Acute (5) Hypokalemia due to loss of potassium Status: Acute Admission Diagnosis ACUTE RESPIRATORY FAILURE COVID 19 PNEUMONIA ACUTE RENAL FAILURE HYPOKALEMIA ANXIETY DEPRESSION HYPERTENSION ESOPHAGEAL REFLUX RESTLESS LEG SYNDROME Admission Status: Inpatient Order (span 2 midnights) Reason for Inpatient Admission: INPATIENT ADMISSION FOR COVID 19 RESPIRATORY FAILURE - WILL REQUIRE AT LEAST 5 DAYS IN THE HOSPITAL FOR IV MEDICATIONS AND STABILIZATION. MARILYN LAO MD Oct 04, 2020 12:20
[2020-10-04] MEDS ORDERED: ACETAMINOPHEN 650 MG SUPP (TYLENOL) PR PRN (12:45)
[2020-10-04] MEDS ORDERED: ACETAMINOPHEN 325 MG TABLET PO PRN (12:45)
[2020-10-04] MEDS ORDERED: ONDANSETRON 4 MG/2 ML (SDV) Z0FRAN IV PRN (12:45)
[2020-10-04] MEDS ORDERED: ONDANSETRON 4 MG/5 ML ORAL SOLN (ZOFRAN) 5 ML PO PRN (12:45)
[2020-10-04 12:49] VITALS: BP 124/82
[2020-10-04] MEDS: ENOXAPARIN 40 MG/0.4 ML (LOVENOX) SYR SC SCH (13:49)
[2020-10-04] MEDS ORDERED: PANTOPRAZOLE 40 MG (PROTONIX) TAB PO ONE (14:45)
[2020-10-04] MEDS: ALPRAZolam 0.5 MG (XANAX) TAB PO PRN (14:59)
[2020-10-04] MEDS ORDERED: ALBUTEROL/IPRATROP (COMBIVENT RESPIMAT) 4 GM INHALER INH SCH (15:00)
[2020-10-04] MEDS ORDERED: MELA10TA2 PO (15:33)
[2020-10-04] MEDS ORDERED: AMOX1TAB11 PO (15:33)
[2020-10-04] MEDS ORDERED: HYDR-3817 PO (15:33)
[2020-10-04] MEDS ORDERED: MAGN250T35 PO (15:33)
[2020-10-04] MEDS ORDERED: PREG50CA65 PO (15:33)
[2020-10-04] MEDS ORDERED: TRAM50TA3 PO (15:33)
[2020-10-04] MEDS ORDERED: ALPR0.5T7 PO ×2 (15:33)
[2020-10-04] MEDS ORDERED: PANT40TA52 PO (15:33)
[2020-10-04] MEDS ORDERED: SUCRALFATE 1 GM (CARAFATE) TAB PO PRN (16:00)
[2020-10-04] MEDS ORDERED: HYDROcodone/APAP 7.5 MG/325 MG (LORTAB, LORCET PLUS) TABLET PO PRN (16:00)
[2020-10-04 16:04] VITALS: BP 136/75
[2020-10-04 19:04] VITALS: BP 138/79
[2020-10-04] MEDS: MELATONIN 10 MG TABLET PO SCH (20:30)
[2020-10-04] MEDS: LABETALOL 200 MG (NORMODYNE) TAB PO SCH (20:30)
[2020-10-04] MEDS: amLODIPine 5 MG (NORVASC) TAB PO SCH (20:30)
[2020-10-04] MEDS: MONTELUKAST 10 MG (SINGULAIR) TAB PO SCH (20:30)
[2020-10-04] MEDS: rOPINIRole 1 MG (REQUIP) TABLET PO SCH (20:34)
[2020-10-04] MEDS: PREGABALIN 50 MG (LYRICA) CAP PO SCH (20:34)
[2020-10-04] MEDS ORDERED: NS IV SCH (21:00)
[2020-10-04] MEDS: RT-ALBUTEROL INHALER HFA (VENTOLIN HFA) 18 GM IH SCH (21:00)
[2020-10-04] MEDS ORDERED: DEXAMETHASONE IV SCH (21:00)
[2020-10-05] VITALS: BP 144/77
[2020-10-05 04:00] VITALS: BP 138/80
[2020-10-05 06:13] LABS: BASOPHILS % (AUTO) 0 % (0-10); EOSINOPHILS % (AUTO) 0 % (0-10); HEMATOCRIT 38 % (35-52); HEMOGLOBIN 12.2 g/dL (11.5-16.0); LYMPHOCYTES # (AUTO) 0.7 10^3/uL (1.0-4.0); LYMPHOCYTES % (AUTO) 26 % (12-44); MEAN CORPUSCULAR HEMOGLOBIN 26 pg (25-34); MEAN CORPUSCULAR HGB CONC 32 g/dL (32-36); MEAN CORPUSCULAR VOLUME 82 fL (80-99); MEAN PLATELET VOLUME 10.4 fL (9.0-12.2); MONOCYTES # (AUTO) 0.1 10^3/uL (0.0-1.0); MONOCYTES % (AUTO) 4 % (0-12); NEUTROPHILS # (AUTO) 1.8 10^3/uL (1.8-7.8); NEUTROPHILS % (AUTO) 70 % (42-75); PLATELET COUNT 155 10^3/uL (130-400); WHITE BLOOD COUNT 2.6 10^3/uL (4.3-11.0)
[2020-10-05 06:22] LABS: ALBUMIN 3.7 GM/DL (3.2-4.5)
[2020-10-05 06:23] LABS: POTASSIUM 3.7 MMOL/L (3.6-5.0)
[2020-10-05 06:24] LABS: CALCIUM 8.9 MG/DL (8.5-10.1)
[2020-10-05 06:25] LABS: TOTAL PROTEIN 6.4 GM/DL (6.4-8.2)
[2020-10-05 06:27] LABS: BILIRUBIN,TOTAL 0.4 MG/DL (0.1-1.0)
[2020-10-05 06:29] LABS: CREATININE SERUM 1.04 MG/DL (0.60-1.30)
[2020-10-05 08:00] VITALS: BP 131/69
[2020-10-05] MEDS: ASPIRIN 325 MG (5 GR) TABLET PO SCH (08:37)
[2020-10-05] MEDS: ALPRAZolam 0.5 MG (XANAX) TAB PO PRN ×2 (08:37→20:35)
[2020-10-05] MEDS: PANTOPRAZOLE 40 MG (PROTONIX) TAB PO SCH (08:38)
[2020-10-05] MEDS: DULoxetine 30 MG (CYMBALTA) CAP PO SCH (08:38)
[2020-10-05] MEDS: PREGABALIN 50 MG (LYRICA) CAP PO SCH ×3 (08:38→19:54)
[2020-10-05] MEDS: LABETALOL 200 MG (NORMODYNE) TAB PO SCH ×2 (08:38→19:54)
--- NOTE | 2020-10-05 08:54 | Progress Note ---
Subjective Subjective Date Seen by Provider: Oct 05, 2020 Time Seen by Provider: 10:30 PT IS A 70 Y/O FEMALE WHO IS KNOWN TO ME FROM CLINIC. SHE PRESENTED TO THE HOSPITAL WITH SYMPTOMS OF COVID-19, DX WITH COVID PNEUMONIA AND STARTED ON REMDESIVIR AND STEROIDS Review of Systems General: No Chills; Fatigue Pulmonary: Dyspnea, Cough Cardiovascular: No: Chest Pain, Palpitations Gastrointestinal: No: Nausea, Abdominal Pain Neurological: Weakness; No: Confusion All Other Systems Reviewed All Other Systems Reviewed: Yes Objective Exam Vital Signs Vital Signs - First Documented Capillary Refill : General Appearance: WD/WN, Mild Distress Eyes: Bilateral Eye Normal Inspection, Bilateral Eye PERRL, Bilateral Eye EOMI HEENT: PERRL/EOMI, Pharynx Normal Neck: Full Range of Motion, Normal Inspection, Non Tender, Supple Respiratory: Chest Non Tender, Lungs Clear, Normal Breath Sounds, No Accessory Muscle Use, No Respiratory Distress Cardiovascular: Regular Rate, Rhythm, No Edema, Normal Peripheral Pulses Gastrointestinal: Normal Bowel Sounds, Non Tender, Soft Rectal: Deferred Back: Normal Inspection Extremity: Normal Capillary Refill, No Calf Tenderness, No Pedal Edema Neurologic/Psychiatric: Alert, Oriented x3, No Motor/Sensory Deficits, Normal Mood/Affect Skin: Normal Color, Warm/Dry Lymphatic: No Adenopathy Results Lab Laboratory Tests 10/04/20 09:00: White Blood Count 3.3L, Red Blood Count 4.56, Hemoglobin 12.0, Hematocrit 37, Mean Corpuscular Volume 82, Mean Corpuscular Hemoglobin 26, Mean Corpuscular Hemoglobin Concent 32, Red Cell Distribution Width 15.4H, Platelet Count 149, Mean Platelet Volume 10.1, Immature Granulocyte % (Auto) 0, Neutrophils (%) (Auto) 68, Lymphocytes (%) (Auto) 26, Monocytes (%) (Auto) 5, Eosinophils (%) (Auto) 0, Basophils (%) (Auto) 0, Neutrophils # (Auto) 2.3, Lymphocytes # (Auto) 0.9L, Monocytes # (Auto) 0.2, Eosinophils # (Auto) 0.0, Basophils # (Auto) 0.0, Immature Granulocyte # (Auto) 0.0, Prothrombin Time 13.9, INR Comment 1.0, Activated Partial Thromboplast Time 30, D-Dimer 0.84H, Sodium Level 137, Potassium Level 3.2L, Chloride Level 101, Carbon Dioxide Level 24, Anion Gap 12, Blood Urea Nitrogen 13, Creatinine 1.26, Estimat Glomerular Filtration Rate 42, BUN/Creatinine Ratio 10, Glucose Level 104, Lactic Acid Level 0.89, Calcium Level 8.4L, Corrected Calcium 8.6, Total Bilirubin 0.5, Aspartate Amino Transf (AST/SGOT) 23, Alanine Aminotransferase (ALT/SGPT) 17, Alkaline Phosphatase 69, C-Reactive Protein High Sensitivity 1.64H, Total Protein 6.6, Albumin 3.8, Procalcitonin 0.05, Influenza Type A (RT-PCR) Not Detected, Influenza Type B (RT-PCR) Not Detected, SARS-CoV-2 RNA (RT-PCR) DetectedH 10/05/20 05:49: White Blood Count 2.6L, Red Blood Count 4.62, Hemoglobin 12.2, Hematocrit 38, Mean Corpuscular Volume 82, Mean Corpuscular Hemoglobin 26, Mean Corpuscular Hemoglobin Concent 32, Red Cell Distribution Width 15.2H, Platelet Count 155, Mean Platelet Volume 10.4, Immature Granulocyte % (Auto) 0, Neutrophils (%) (Auto) 70, Lymphocytes (%) (Auto) 26, Monocytes (%) (Auto) 4, Eosinophils (%) (Auto) 0, Basophils (%) (Auto) 0, Neutrophils # (Auto) 1.8, Lymphocytes # (Auto) 0.7L, Monocytes # (Auto) 0.1, Eosinophils # (Auto) 0.0, Basophils # (Auto) 0.0, Immature Granulocyte # (Auto) 0.0, D-Dimer 0.66H, Sodium Level 141, Potassium Level 3.7, Chloride Level 109H, Carbon Dioxide Level 18L, Anion Gap 14, Blood Urea Nitrogen 14, Creatinine 1.04, Estimat Glomerular Filtration Rate 52, BUN/Creatinine Ratio 13, Glucose Level 133H, Calcium Level 8.9, Corrected Calcium 9.1, Total Bilirubin 0.4, Aspartate Amino Transf (AST/SGOT) 22, Alanine Aminotransferase (ALT/SGPT) 18, Alkaline Phosphatase 65, Total Protein 6.4, Albumin 3.7 Assessment/Plan Assessment/Plan Admission Dx ACUTE RESPIRATORY FAILURE COVID 19 PNEUMONIA ACUTE RENAL FAILURE HYPOKALEMIA ANXIETY DEPRESSION HYPERTENSION ESOPHAGEAL REFLUX RESTLESS LEG SYNDROME Assessment and Plan ACUTE RESPIRATORY FAILURE COVID 19 PNEUMONIA ACUTE RENAL FAILURE HYPOKALEMIA ANXIETY DEPRESSION HYPERTENSION ESOPHAGEAL REFLUX RESTLESS LEG SYNDROME LEUKOPENIA ACUTE RESPIRATORY FAILURE DUE TO COVID 19 PNEUMONIA - PT ON REMDESIVIR, STEROIDS, AND BREATHING TREATMENTS, SUPPORTIVE CARE AT THIS TIME. - REPEAT CXR TOMORROW - DDIMER STILL ELEVATED, BUT IMPROVED SLIGHTLY ON 10/05/20 - OXYGEN REQUIREMENT IMPROVED FROM 2 TO 1 LITER WITH STABLE OXYGEN SAT. LEUKOPENIA - WHITE COUNT DOWN FROM 3.3 TO 2.6 WITH ABSOLUTE LYMPHOCYTE NUMBERS LOW ON 10/05/20 - MOST LIKELY DUE TO VIRAL SUPPRESSION, REST OF CBC IS OKAY ACUTE RENAL FAILURE - SUPPORTIVE CARE, PUSH FLUIDS, MONITOR SYMPTOMS - RESOLVED HYPOKALEMIA - RESOLVED AFTER REPLENISHED WITH IV FLUIDS ANXIETY AND DEPRESSION - RESTART ALPRAZOLAM - RESTART DULOXETINE HYPERTENSION - RESUME HOME REGIMEN ESOPHAGEAL REFLUX - RESTART PPI AND CARAFATE RESTLESS LEG SYNDROME - RESUME ROPINIROLE DVT PROPHYLAXIS WITH LOVENOX AND SCD'S GI PROPHYLAXIS WITH PPI Problems: (1) Pneumonia due to COVID-19 virus (2) COVID-19 vaccination not done (3) Acute respiratory failure with hypoxia (4) MARIKA (acute kidney injury) (5) Hypokalemia due to loss of potassium Admission Dx ACUTE RESPIRATORY FAILURE COVID 19 PNEUMONIA ACUTE RENAL FAILURE HYPOKALEMIA ANXIETY DEPRESSION HYPERTENSION ESOPHAGEAL REFLUX RESTLESS LEG SYNDROME Clinical Quality Measures Admission Status Admission Dx ACUTE RESPIRATORY FAILURE COVID 19 PNEUMONIA ACUTE RENAL FAILURE HYPOKALEMIA ANXIETY DEPRESSION HYPERTENSION ESOPHAGEAL REFLUX RESTLESS LEG SYNDROME DANIELLA VILLALPANDO MD Oct 05, 2020 08:54
[2020-10-05] MEDS ORDERED: NON-FORMULARY MEDICATION 1 EA EA (Duloxetine HCl 60 MG) PO SCH (09:00)
--- NOTE | 2020-10-05 09:21 | Diagnostic Imaging Report ---
Indication: Cough and pneumonia Portable chest 8:58 AM Heart size and pulmonary vascularity are normal. Lungs are clear. There are no effusions or pneumothoraces. IMPRESSION: Negative chest Dictated by: Dictated on workstation # [id number]
[2020-10-05] MEDS: RT-ALBUTEROL INHALER HFA (VENTOLIN HFA) 18 GM IH SCH ×3 (09:39→21:21)
[2020-10-05] MEDS: UMECLIDINIUM BROMIDE (INCRUSE ELLIPTA) 7'S IH SCH (09:39)
[2020-10-05 12:00] VITALS: BP 95/66
[2020-10-05] MEDS: ENOXAPARIN 40 MG/0.4 ML (LOVENOX) SYR SC SCH (13:04)
[2020-10-05] MEDS: dexAMETHasone 6 MG TAB (DECADRON) PO SCH ×2 (13:04→19:54)
[2020-10-05] MEDS: REMDESIVIR INJ 100 MG in NS (IVPB) 230 ML IV SCH (13:05)
[2020-10-05 15:31] VITALS: BP 95/66
[2020-10-05 19:33] VITALS: BP 112/75
[2020-10-05] MEDS: amLODIPine 5 MG (NORVASC) TAB PO SCH (19:54)
[2020-10-05] MEDS: MELATONIN 10 MG TABLET PO SCH (19:54)
[2020-10-05] MEDS: MONTELUKAST 10 MG (SINGULAIR) TAB PO SCH (19:54)
[2020-10-05] MEDS: rOPINIRole 1 MG (REQUIP) TABLET PO SCH (19:54)
[2020-10-06] VITALS: BP 128/70
[2020-10-06] MEDS: RT-ALBUTEROL INHALER HFA (VENTOLIN HFA) 18 GM IH SCH ×4 (02:30→19:43)
[2020-10-06 04:30] VITALS: BP 139/79
[2020-10-06 06:29] LABS: BASOPHILS % (AUTO) 0 % (0-10); EOSINOPHILS % (AUTO) 0 % (0-10); HEMATOCRIT 36 % (35-52); HEMOGLOBIN 11.4 g/dL (11.5-16.0); LYMPHOCYTES # (AUTO) 0.9 10^3/uL (1.0-4.0); LYMPHOCYTES % (AUTO) 17 % (12-44); MEAN CORPUSCULAR HEMOGLOBIN 26 pg (25-34); MEAN CORPUSCULAR HGB CONC 32 g/dL (32-36); MEAN CORPUSCULAR VOLUME 83 fL (80-99); MEAN PLATELET VOLUME 10.6 fL (9.0-12.2); MONOCYTES # (AUTO) 0.2 10^3/uL (0.0-1.0); MONOCYTES % (AUTO) 4 % (0-12); NEUTROPHILS # (AUTO) 4.1 10^3/uL (1.8-7.8); NEUTROPHILS % (AUTO) 79 % (42-75); PLATELET COUNT 178 10^3/uL (130-400); WHITE BLOOD COUNT 5.2 10^3/uL (4.3-11.0)
[2020-10-06 06:38] LABS: ALBUMIN 3.5 GM/DL (3.2-4.5); POTASSIUM 3.9 MMOL/L (3.6-5.0)
[2020-10-06 06:40] LABS: CALCIUM 8.8 MG/DL (8.5-10.1)
[2020-10-06 06:43] LABS: BILIRUBIN,TOTAL 0.3 MG/DL (0.1-1.0)
[2020-10-06 06:44] LABS: CREATININE SERUM 1.16 MG/DL (0.60-1.30)
[2020-10-06] MEDS: UMECLIDINIUM BROMIDE (INCRUSE ELLIPTA) 7'S IH SCH (07:15)
[2020-10-06 08:00] VITALS: BP 123/72
[2020-10-06] MEDS: dexAMETHasone 6 MG TAB (DECADRON) PO SCH ×2 (08:50→19:39)
[2020-10-06] MEDS: PANTOPRAZOLE 40 MG (PROTONIX) TAB PO SCH (08:50)
[2020-10-06] MEDS: DULoxetine 30 MG (CYMBALTA) CAP PO SCH (08:51)
[2020-10-06] MEDS: PREGABALIN 50 MG (LYRICA) CAP PO SCH ×3 (08:51→19:39)
--- NOTE | 2020-10-06 08:51 | Diagnostic Imaging Report ---
INDICATION: Pneumonia. Comparison made with prior examination of 10/05/2020. FINDINGS: There is cardiomegaly. There are some right perihilar discoid atelectasis and/or pneumonitis. There is no pleural effusion or pneumothorax. Mediastinum is unremarkable. IMPRESSION: Cardiomegaly and some right perihilar atelectasis and/or pneumonitis. Dictated by: Dictated on workstation # [id number]
[2020-10-06] MEDS: ASPIRIN 325 MG (5 GR) TABLET PO SCH (08:57)
[2020-10-06] MEDS: ALPRAZolam 0.5 MG (XANAX) TAB PO PRN ×2 (09:06→19:40)
--- NOTE | 2020-10-06 09:18 | Progress Note ---
Subjective Subjective Date Seen by Provider: Oct 06, 2020 Time Seen by Provider: 10:30 PT IS A 70 Y/O FEMALE WHO IS KNOWN TO ME FROM CLINIC. SHE PRESENTED TO THE HOSPITAL WITH SYMPTOMS OF COVID-19, DX WITH COVID PNEUMONIA AND STARTED ON REMDESIVIR AND STEROIDS. SHE STATES THAT SHE IS FEELING MUCH BETTER, SHE HAS BEEN EXERCISING IN THE ROOM ON HER OWN. STAFF REPORTS HER OXYGEN GOES "UP AND DOWN" AND SHE HAS BEEN ON LITTLE 1/2 LITER AND UP TO 2 LITERS. Review of Systems General: No Chills; Fatigue Pulmonary: Dyspnea, Cough Cardiovascular: No: Chest Pain, Palpitations Gastrointestinal: No: Nausea, Abdominal Pain Neurological: Weakness; No: Confusion All Other Systems Reviewed All Other Systems Reviewed: Yes Objective Exam Vital Signs Vital Signs - First Documented 10/05/20 19:50 FiO2 94 Capillary Refill : General Appearance: WD/WN, Mild Distress Eyes: Bilateral Eye Normal Inspection, Bilateral Eye PERRL, Bilateral Eye EOMI HEENT: PERRL/EOMI, Pharynx Normal Neck: Full Range of Motion, Normal Inspection, Non Tender, Supple Respiratory: Chest Non Tender, Normal Breath Sounds, No Accessory Muscle Use, No Respiratory Distress, Crackles (FAINT IN BASES) Cardiovascular: Regular Rate, Rhythm, No Edema, Normal Peripheral Pulses Gastrointestinal: Normal Bowel Sounds, Non Tender, Soft Rectal: Deferred Back: Normal Inspection Extremity: Normal Capillary Refill, No Calf Tenderness, No Pedal Edema Neurologic/Psychiatric: Alert, Oriented x3, No Motor/Sensory Deficits, Normal Mood/Affect Skin: Normal Color, Warm/Dry Lymphatic: No Adenopathy Results Lab Laboratory Tests 10/06/20 06:04: White Blood Count 5.2, Red Blood Count 4.38, Hemoglobin 11.4L, Hematocrit 36, Mean Corpuscular Volume 83, Mean Corpuscular Hemoglobin 26, Mean Corpuscular Hemoglobin Concent 32, Red Cell Distribution Width 15.2H, Platelet Count 178, Mean Platelet Volume 10.6, Immature Granulocyte % (Auto) 0, Neutrophils (%) (Auto) 79H, Lymphocytes (%) (Auto) 17, Monocytes (%) (Auto) 4, Eosinophils (%) (Auto) 0, Basophils (%) (Auto) 0, Neutrophils # (Auto) 4.1, Lymphocytes # (Auto) 0.9L, Monocytes # (Auto) 0.2, Eosinophils # (Auto) 0.0, Basophils # (Auto) 0.0, Immature Granulocyte # (Auto) 0.0, D-Dimer 0.56H, Sodium Level 136, Potassium Level 3.9, Chloride Level 106, Carbon Dioxide Level 19L, Anion Gap 11, Blood Ur ea Nitrogen 23H, Creatinine 1.16, Estimat Glomerular Filtration Rate 46, BUN/Creatinine Ratio 20, Glucose Level 143H, Calcium Level 8.8, Corrected Calcium 9.2, Total Bilirubin 0.3, Aspartate Amino Transf (AST/SGOT) 22, Alanine Aminotransferase (ALT/SGPT) 18, Alkaline Phosphatase 56, Total Protein 6.0L, Albumin 3.5 Microbiology 10/04/20 Blood Culture - Preliminary, Resulted No growth Assessment/Plan Assessment/Plan Admission Dx ACUTE RESPIRATORY FAILURE COVID 19 PNEUMONIA ACUTE RENAL FAILURE HYPOKALEMIA ANXIETY DEPRESSION HYPERTENSION ESOPHAGEAL REFLUX RESTLESS LEG SYNDROME Assessment and Plan ACUTE RESPIRATORY FAILURE COVID 19 PNEUMONIA ACUTE RENAL FAILURE HYPOKALEMIA ANXIETY DEPRESSION HYPERTENSION ESOPHAGEAL REFLUX RESTLESS LEG SYNDROME LEUKOPENIA ACUTE RESPIRATORY FAILURE DUE TO COVID 19 PNEUMONIA - PT ON REMDESIVIR, STEROIDS, AND BREATHING TREATMENTS, SUPPORTIVE CARE AT THIS TIME. - REPEAT CXR TOMORROW - DDIMER STILL ELEVATED, BUT IMPROVED SLIGHTLY ON 10/05/20 - OXYGEN REQUIREMENT IMPROVED FROM 2 TO 1/2 LITER WITH STABLE OXYGEN SAT. Date of Exam:10/06/20 CHEST 1 VIEW, AP/PA ONLY INDICATION: Pneumonia. Comparison made with prior examination of 10/05/2020. FINDINGS: There is cardiomegaly. There are some right perihilar discoid atelec tasis and/or pneumonitis. There is no pleural effusion or pneumothorax. Mediastinum is unremarkable. IMPRESSION: Cardiomegaly and some right perihilar atelectasis and/or pneumonitis. Dict: 10/06/20 0847 LEUKOPENIA - WHITE COUNT DOWN FROM 3.3 TO 2.6 WITH IMPROVEMENT TO 5.2 ACUTE RENAL FAILURE - SUPPORTIVE CARE, PUSH FLUIDS, MONITOR SYMPTOMS - RESOLVED HYPOKALEMIA - RESOLVED AFTER REPLENISHED WITH IV FLUIDS ANXIETY AND DEPRESSION - RESTARTED ALPRAZOLAM - RESTARTED DULOXETINE HYPERTENSION - RESUMED HOME REGIMEN ESOPHAGEAL REFLUX - RESTARTED PPI AND CARAFATE RESTLESS LEG SYNDROME - RESUMED ROPINIROLE DVT PROPHYLAXIS WITH LOVENOX AND SCD'S GI PROPHYLAXIS WITH PPI Problems: (1) Pneumonia due to COVID-19 virus (2) COVID-19 vaccination not done (3) Acute respiratory failure with hypoxia (4) MARIKA (acute kidney injury) (5) Hypokalemia due to loss of potassium Admission Dx ACUTE RESPIRATORY FAILURE COVID 19 PNEUMONIA ACUTE RENAL FAILURE HYPOKALEMIA ANXIETY DEPRESSION HYPERTENSION ESOPHAGEAL REFLUX RESTLESS LEG SYNDROME Clinical Quality Measures Admission Status Admission Dx ACUTE RESPIRATORY FAILURE COVID 19 PNEUMONIA ACUTE RENAL FAILURE HYPOKALEMIA ANXIETY DEPRESSION HYPERTENSION ESOPHAGEAL REFLUX RESTLESS LEG SYNDROME DANIELLA VILLALPANDO MD Oct 06, 2020 09:18
[2020-10-06 12:00] VITALS: BP 125/73
[2020-10-06] MEDS: REMDESIVIR INJ 100 MG in NS (IVPB) 230 ML IV SCH (12:59)
[2020-10-06] MEDS: ENOXAPARIN 40 MG/0.4 ML (LOVENOX) SYR SC SCH (12:59)
[2020-10-06 15:30] VITALS: BP 134/78
[2020-10-06 19:29] VITALS: BP 122/61
[2020-10-06] MEDS: rOPINIRole 1 MG (REQUIP) TABLET PO SCH (19:39)
[2020-10-06] MEDS: MONTELUKAST 10 MG (SINGULAIR) TAB PO SCH (19:39)
[2020-10-06] MEDS: amLODIPine 5 MG (NORVASC) TAB PO SCH (19:39)
[2020-10-06] MEDS: MELATONIN 10 MG TABLET PO SCH (21:18)
[2020-10-06] MEDS: guaiFENesin SYRUP 100 MG/5 ML 10 ML (ROBITUSSIN SF) PO PRN (21:18)
[2020-10-06] MEDS: LABETALOL 200 MG (NORMODYNE) TAB PO SCH (21:43)
[2020-10-07] VITALS (8 sets, daily range): BP systolic 106–152; BP diastolic 64–86
[2020-10-07] MEDS: RT-ALBUTEROL INHALER HFA (VENTOLIN HFA) 18 GM IH SCH ×4 (04:03→18:25)
[2020-10-07 05:37] LABS: BASOPHILS % (AUTO) 0 % (0-10); EOSINOPHILS % (AUTO) 0 % (0-10); HEMATOCRIT 37 % (35-52); HEMOGLOBIN 11.8 g/dL (11.5-16.0); LYMPHOCYTES # (AUTO) 0.9 10^3/uL (1.0-4.0); LYMPHOCYTES % (AUTO) 17 % (12-44); MEAN CORPUSCULAR HEMOGLOBIN 26 pg (25-34); MEAN CORPUSCULAR HGB CONC 32 g/dL (32-36); MEAN CORPUSCULAR VOLUME 83 fL (80-99); MEAN PLATELET VOLUME 10.4 fL (9.0-12.2); MONOCYTES # (AUTO) 0.3 10^3/uL (0.0-1.0); MONOCYTES % (AUTO) 5 % (0-12); NEUTROPHILS # (AUTO) 4.4 10^3/uL (1.8-7.8); NEUTROPHILS % (AUTO) 78 % (42-75); PLATELET COUNT 194 10^3/uL (130-400); WHITE BLOOD COUNT 5.6 10^3/uL (4.3-11.0)
[2020-10-07 05:50] LABS: ALBUMIN 3.4 GM/DL (3.2-4.5); POTASSIUM 3.8 MMOL/L (3.6-5.0)
[2020-10-07 05:52] LABS: CALCIUM 8.5 MG/DL (8.5-10.1)
[2020-10-07 05:55] LABS: BILIRUBIN,TOTAL 0.3 MG/DL (0.1-1.0)
[2020-10-07 05:56] LABS: CREATININE SERUM 0.95 MG/DL (0.60-1.30)
--- NOTE | 2020-10-07 07:16 | Diagnostic Imaging Report ---
EXAMINATION: Chest 1 view HISTORY: Pneumonia. Covid positive. COMPARISON: 10/06/2020. FINDINGS: The lung volumes are normal. Stable scattered opacities are seen in the mid and lower lungs bilaterally. No large pleural effusion or pneumothorax is seen. Unchanged cardiomegaly. No acute osseous abnormality is seen. IMPRESSION: 1. Stable scattered opacities in the mid and lower lungs bilaterally. 2. Stable cardiomegaly. Dictated by: Dictated on workstation # [id number]
--- NOTE | 2020-10-07 08:49 | Progress Note ---
Subjective Subjective Date Seen by Provider: Oct 07, 2020 Time Seen by Provider: 08:40 PT IS A 70 Y/O FEMALE WHO IS KNOWN TO ME FROM CLINIC. SHE PRESENTED TO THE HOSPITAL WITH SYMPTOMS OF COVID-19, DX WITH COVID PNEUMONIA AND STARTED ON REMDESIVIR AND STEROIDS. SHE STATES THAT SHE IS FEELING MUCH BETTER, SHE HAS BEEN EXERCISING IN THE ROOM ON HER OWN. SHE REPORTS THAT HER COUGH "LOOSENED UP" AND SHE IS STILL TIRED, BUT FEELING BETTER. SHE IS WORRIED ABOUT HER 'S PLACEMENT AT A RETIREMENT, WANTS TO MAKE SURE HE IS ABLE TO GO TO A RETIREMENT ON DISCHARGE SINCE SHE IS STILL TOO TIRED TO CARE FOR HIM. Review of Systems General: No Chills; Fatigue Pulmonary: Dyspnea, Cough Cardiovascular: No: Chest Pain, Palpitations Gastrointestinal: No: Nausea, Abdominal Pain, Diarrhea, Constipation Neurological: Weakness; No: Confusion All Other Systems Reviewed All Other Systems Reviewed: Yes Objective Exam Vital Signs Vital Signs - First Documented 10/05/20 19:50 FiO2 94 Capillary Refill : General Appearance: WD/WN, Mild Distress Eyes: Bilateral Eye Normal Inspection, Bilateral Eye PERRL, Bilateral Eye EOMI HEENT: PERRL/EOMI, Pharynx Normal Neck: Full Range of Motion, Normal Inspection, Non Tender, Supple Respiratory: Chest Non Tender, Normal Breath Sounds, No Accessory Muscle Use, No Respiratory Distress, Crackles (FAINT IN BASES) Cardiovascular: Regular Rate, Rhythm, No Edema, Normal Peripheral Pulses Gastrointestinal: Normal Bowel Sounds, Non Tender, Soft Rectal: Deferred Back: Normal Inspection Extremity: Normal Capillary Refill, No Calf Tenderness, No Pedal Edema Neurologic/Psychiatric: Alert, Oriented x3, No Motor/Sensory Deficits, Normal Mood/Affect Skin: Normal Color, Warm/Dry Lymphatic: No Adenopathy Results Lab Laboratory Tests 10/07/20 05:20: White Blood Count 5.6, Red Blood Count 4.47, Hemoglobin 11.8, Hematocrit 37, Mean Corpuscular Volume 83, Mean Corpuscular Hemoglobin 26, Mean Corpuscular Hemoglobin Concent 32, Red Cell Distribution Width 15.0H, Platelet Count 194, Mean Platelet Volume 10.4, Immature Granulocyte % (Auto) 1, Neutrophils (%) (Auto) 78H, Lymphocytes (%) (Auto) 17, Monocytes (%) (Auto) 5, Eosinophils (%) (Auto) 0, Basophils (%) (Auto) 0, Neutrophils # (Auto) 4.4, Lymphocytes # (Auto) 0.9L, Monocytes # (Auto) 0.3, Eosinophils # (Auto) 0.0, Basophils # (Auto) 0.0, Immature Granulocyte # (Auto) 0.0, D-Dimer 0.47, Sodium Level 138, Potassium Level 3.8, Chloride Level 106, Carbon Dioxide Level 19L, Anion Gap 13, Blood Urea Nitrogen 18, Creatinine 0.95, Estimat Glomerular Filtration Rate 58, BUN/Creatinine Ratio 19, Glucose Level 146H, Calcium Level 8.5, Corrected Calcium 9.0, Total Bilirubin 0.3, Aspartate Amino Transf (AST/SGOT) 22, Alanine Aminotransferase (ALT/SGPT) 19, Alkaline Phosphatase 53, Total Protein 6.0L, Albumin 3.4 Microbiology 10/04/20 Blood Culture - Preliminary, Resulted No growth Assessment/Plan Assessment/Plan Admission Dx ACUTE RESPIRATORY FAILURE COVID 19 PNEUMONIA ACUTE RENAL FAILURE HYPOKALEMIA ANXIETY DEPRESSION HYPERTENSION ESOPHAGEAL REFLUX RESTLESS LEG SYNDROME Assessment and Plan ACUTE RESPIRATORY FAILURE COVID 19 PNEUMONIA ACUTE RENAL FAILURE HYPOKALEMIA ANXIETY DEPRESSION HYPERTENSION ESOPHAGEAL REFLUX RESTLESS LEG SYNDROME LEUKOPENIA ACUTE RESPIRATORY FAILURE DUE TO COVID 19 PNEUMONIA - PT ON REMDESIVIR, STEROIDS, AND BREATHING TREATMENTS, SUPPORTIVE CARE AT THIS TIME. - REPEAT CXR TOMORROW - DDIMER IMPROVED - OXYGEN REQUIREMENT IMPROVING, BUT STILL RANGING BETWEEN 1/2 TO 1 LITER. Date of Exam:10/07/20 CHEST 1 VIEW, AP/PA ONLY EXAMINATION: Chest 1 view HISTORY: Pneumonia. Covid positive. COMPARISON: 10/06/2020. FINDINGS: The lung volumes are normal. Stable scattered opacities are seen in the mid and lower lungs bilaterally. No large pleural effusion or pneumothorax is seen. Unchanged cardiomegaly. No acute osseous abnormality is seen. IMPRESSION: 1. Stable scattered opacities in the mid and lower lungs bilaterally. 2. Stable cardiomegaly. LEUKOPENIA - RESOLVED ACUTE RENAL FAILURE - SUPPORTIVE CARE, PUSH FLUIDS, MONITOR SYMPTOMS - RESOLVED HYPOKALEMIA - RESOLVED AFTER REPLENISHED WITH IV FLUIDS ANXIETY AND DEPRESSION - RESTARTED ALPRAZOLAM - RESTARTED DULOXETINE HYPERTENSION - RESUMED HOME REGIMEN ESOPHAGEAL REFLUX - RESTARTED PPI AND CARAFATE RESTLESS LEG SYNDROME - RESUMED ROPINIROLE EDEMA OF LEGS - RESUME LASIX DVT PROPHYLAXIS WITH LOVENOX AND SCD'S GI PROPHYLAXIS WITH PPI Problems: (1) Pneumonia due to COVID-19 virus (2) COVID-19 vaccination not done (3) Acute respiratory failure with hypoxia (4) MARIKA (acute kidney injury) (5) Hypokalemia due to loss of potassium Admission Dx ACUTE RESPIRATORY FAILURE COVID 19 PNEUMONIA ACUTE RENAL FAILURE HYPOKALEMIA ANXIETY DEPRESSION HYPERTENSION ESOPHAGEAL REFLUX RESTLESS LEG SYNDROME Clinical Quality Measures Admission Status Admission Dx ACUTE RESPIRATORY FAILURE COVID 19 PNEUMONIA ACUTE RENAL FAILURE HYPOKALEMIA ANXIETY DEPRESSION HYPERTENSION ESOPHAGEAL REFLUX RESTLESS LEG SYNDROME DANIELLA VILLALPANDO MD Oct 07, 2020 08:49
[2020-10-07] MEDS: ASPIRIN 325 MG (5 GR) TABLET PO SCH (09:18)
[2020-10-07] MEDS: PANTOPRAZOLE 40 MG (PROTONIX) TAB PO SCH (09:18)
[2020-10-07] MEDS: LABETALOL 200 MG (NORMODYNE) TAB PO SCH ×2 (09:19→21:27)
[2020-10-07] MEDS: PREGABALIN 50 MG (LYRICA) CAP PO SCH ×3 (09:19→21:26)
[2020-10-07] MEDS: DULoxetine 30 MG (CYMBALTA) CAP PO SCH (09:19)
[2020-10-07] MEDS: dexAMETHasone 6 MG TAB (DECADRON) PO SCH ×2 (09:19→21:26)
[2020-10-07] MEDS: UMECLIDINIUM BROMIDE (INCRUSE ELLIPTA) 7'S IH SCH (10:04)
[2020-10-07] MEDS: ALPRAZolam 0.5 MG (XANAX) TAB PO PRN ×2 (10:08→21:26)
[2020-10-07] MEDS: FUROSEMIDE 40 MG (LASIX) TAB PO SCH (10:08)
[2020-10-07] MEDS: REMDESIVIR INJ 100 MG in NS (IVPB) 230 ML IV SCH (13:01)
[2020-10-07] MEDS: ENOXAPARIN 40 MG/0.4 ML (LOVENOX) SYR SC SCH (13:02)
[2020-10-07] MEDS: MELATONIN 10 MG TABLET PO SCH (21:26)
[2020-10-07] MEDS: MONTELUKAST 10 MG (SINGULAIR) TAB PO SCH (21:26)
[2020-10-07] MEDS: amLODIPine 5 MG (NORVASC) TAB PO SCH (21:26)
[2020-10-07] MEDS: rOPINIRole 1 MG (REQUIP) TABLET PO SCH (21:26)
[2020-10-08] MEDS: RT-ALBUTEROL INHALER HFA (VENTOLIN HFA) 18 GM IH SCH ×4 (02:15→21:12)
[2020-10-08 03:51] VITALS: BP 113/61
[2020-10-08 08:10] VITALS: BP 119/78
[2020-10-08] MEDS: LABETALOL 200 MG (NORMODYNE) TAB PO SCH ×2 (08:59→20:23)
[2020-10-08] MEDS: ASPIRIN 325 MG (5 GR) TABLET PO SCH (08:59)
[2020-10-08] MEDS: PANTOPRAZOLE 40 MG (PROTONIX) TAB PO SCH (08:59)
[2020-10-08] MEDS: FUROSEMIDE 40 MG (LASIX) TAB PO SCH (08:59)
[2020-10-08] MEDS: dexAMETHasone 6 MG TAB (DECADRON) PO SCH ×2 (08:59→20:23)
[2020-10-08] MEDS: PREGABALIN 50 MG (LYRICA) CAP PO SCH ×3 (08:59→20:23)
[2020-10-08] MEDS: DULoxetine 30 MG (CYMBALTA) CAP PO SCH (08:59)
[2020-10-08] MEDS ORDERED: FUROSEMIDE 40 MG (LASIX) TAB PO SCH (09:00)
[2020-10-08] MEDS: UMECLIDINIUM BROMIDE (INCRUSE ELLIPTA) 7'S IH SCH (09:25)
--- NOTE | 2020-10-08 09:30 | Progress Note ---
Subjective Subjective Date Seen by Provider: Oct 08, 2020 Time Seen by Provider: 08:40 PT IS A 70 Y/O FEMALE WHO IS KNOWN TO ME FROM CLINIC. SHE PRESENTED TO THE HOSPITAL WITH SYMPTOMS OF COVID-19, DX WITH COVID PNEUMONIA AND STARTED ON REMDESIVIR AND STEROIDS. SHE STATES THAT SHE IS FEELING MUCH BETTER,STILL COUGHING BUT FEELING LESS CONGESTED Review of Systems General: No Chills; Fatigue Pulmonary: Dyspnea, Cough Cardiovascular: No: Chest Pain, Palpitations Gastrointestinal: No: Nausea, Abdominal Pain, Diarrhea, Constipation Neurological: Weakness; No: Confusion All Other Systems Reviewed All Other Systems Reviewed: Yes Objective Exam Vital Signs Vital Signs - First Documented 10/05/20 19:50 FiO2 94 Capillary Refill : General Appearance: WD/WN, Mild Distress Eyes: Bilateral Eye Normal Inspection, Bilateral Eye PERRL, Bilateral Eye EOMI HEENT: PERRL/EOMI, Pharynx Normal Neck: Full Range of Motion, Normal Inspection, Non Tender, Supple Respiratory: Chest Non Tender, Normal Breath Sounds, No Accessory Muscle Use, No Respiratory Distress, Crackles (FAINT IN BASES) Cardiovascular: Regular Rate, Rhythm, No Edema, Normal Peripheral Pulses Gastrointestinal: Normal Bowel Sounds, Non Tender, Soft Rectal: Deferred Back: Normal Inspection Extremity: Normal Capillary Refill, No Calf Tenderness, No Pedal Edema Neurologic/Psychiatric: Alert, Oriented x3, No Motor/Sensory Deficits, Normal Mood/Affect Skin: Normal Color, Warm/Dry Lymphatic: No Adenopathy Results Lab Microbiology 10/04/20 Blood Culture - Preliminary, Resulted No growth Assessment/Plan Assessment/Plan Admission Dx ACUTE RESPIRATORY FAILURE COVID 19 PNEUMONIA ACUTE RENAL FAILURE HYPOKALEMIA ANXIETY DEPRESSION HYPERTENSION ESOPHAGEAL REFLUX RESTLESS LEG SYNDROME Assessment and Plan ACUTE RESPIRATORY FAILURE COVID 19 PNEUMONIA ACUTE RENAL FAILURE HYPOKALEMIA ANXIETY DEPRESSION HYPERTENSION ESOPHAGEAL REFLUX RESTLESS LEG SYNDROME LEUKOPENIA ACUTE RESPIRATORY FAILURE DUE TO COVID 19 PNEUMONIA - PT ON REMDESIVIR, STEROIDS, AND BREATHING TREATMENTS, SUPPORTIVE CARE AT THIS TIME. - REPEAT CXR TOMORROW - OXYGEN REQUIREMENT IMPROVING, BUT STILL RANGING BETWEEN 1/2 TO 1 LITER. LEUKOPENIA - RESOLVED ACUTE RENAL FAILURE - SUPPORTIVE CARE, PUSH FLUIDS, MONITOR SYMPTOMS - RESOLVED HYPOKALEMIA - RESOLVED AFTER REPLENISHED WITH IV FLUIDS ANXIETY AND DEPRESSION - RESTARTED ALPRAZOLAM - RESTARTED DULOXETINE HYPERTENSION - RESUMED HOME REGIMEN ESOPHAGEAL REFLUX - RESTARTED PPI AND CARAFATE RESTLESS LEG SYNDROME - RESUMED ROPINIROLE EDEMA OF LEGS - RESUME LASIX DVT PROPHYLAXIS WITH LOVENOX AND SCD'S GI PROPHYLAXIS WITH PPI Problems: (1) Pneumonia due to COVID-19 virus (2) COVID-19 vaccination not done (3) Acute respiratory failure with hypoxia (4) MARIKA (acute kidney injury) (5) Hypokalemia due to loss of potassium Admission Dx ACUTE RESPIRATORY FAILURE COVID 19 PNEUMONIA ACUTE RENAL FAILURE HYPOKALEMIA ANXIETY DEPRESSION HYPERTENSION ESOPHAGEAL REFLUX RESTLESS LEG SYNDROME Clinical Quality Measures Admission Status Admission Dx ACUTE RESPIRATORY FAILURE COVID 19 PNEUMONIA ACUTE RENAL FAILURE HYPOKALEMIA ANXIETY DEPRESSION HYPERTENSION ESOPHAGEAL REFLUX RESTLESS LEG SYNDROME DANIELLA VILLALPANDO MD Oct 08, 2020 09:30
[2020-10-08 11:28] VITALS: BP 102/78
--- NOTE | 2020-10-08 11:42 | Pulmonary Progress Note ---
Subjective Date Seen by a Provider: Oct 08, 2020 Time Seen by a Provider: 10:25 Subjective/Events-last exam Patient is awake alert and states that she is breathing better currently on 2 L nasal cannula. Slowly her oxygen requirements are coming down. Denies any fever. Mild cough present. Appetite is improving. Sepsis Event Evaluation Height, Weight, BMI Height: 5'5.00" Weight: 221lbs. 3.2oz. 100.431659kf; 34.42 BMI Method:Stated Exam Exam Patient acknowledged, consented, and participated in this virtual visit which was conducted using real time audio/video Vital Signs Date Time Temp Pulse Resp B/P (MAP) Pulse Ox O2 Delivery O2 Flow Rate FiO2 10/08/20 11:28 36.6 89 18 102/78 (86) 92 Nasal Cannula 1.00 10/08/20 09:25 96 Nasal Cannula 1.00 10/08/20 08:10 36.4 79 17 119/78 (92) 95 Nasal Cannula 1.00 10/08/20 08:00 95 Nasal Cannula 1.00 10/08/20 03:51 36.8 74 20 113/61 (78) 93 Nasal Cannula 1.00 10/08/20 02:16 92 Nasal Cannula 1.00 10/07/20 23:54 36.7 54 20 148/77 (100) 95 Nasal Cannula 1.00 10/07/20 21:27 56 10/07/20 20:01 35.7 69 20 120/69 (86) 95 Nasal Cannula 1.00 10/07/20 20:00 95 Nasal Cannula 1.00 10/07/20 18:25 97 Nasal Cannula 2.00 10/07/20 15:55 35.9 77 16 112/64 (80) 94 Nasal Cannula 1.00 10/07/20 15:40 93 Nasal Cannula 1.00 10/07/20 12:00 36.2 52 16 137/86 (103) 93 Nasal Cannula 1.00 I & O 10/08/20 07:00 Intake Total 2024 ml Output Total 1800 ml Balance 225 ml Height & Weight Height: 5'5.00" Weight: 221lbs. 3.2oz. 100.981706dj; 34.42 BMI Method:Stated General Appearance: WD/WN, Mild Distress HEENT: PERRL/EOMI, Pharynx Normal Neck: Full Range of Motion, Normal Inspection, Non Tender, Supple Respiratory: Chest Non Tender, Normal Breath Sounds, No Accessory Muscle Use, No Respiratory Distress, Crackles (FAINT IN BASES) Cardiovascular: Regular Rate, Rhythm, No Edema, Normal Peripheral Pulses Extremity: Normal Capillary Refill, No Calf Tenderness, No Pedal Edema Neurologic/Psychiatric: Alert, Oriented x3, No Motor/Sensory Deficits, Normal Mood/Affect Skin: Normal Color, Warm/Dry Lymphatic: No Adenopathy Results Lab Laboratory Tests 10/07/20 05:20 Meds reviewed Radiology cxr reviewed. Assessment/Plan Assessment/Plan 1. Acute Covid pneumonia 2. Acute hypoxic respiratory failure requiring supplemental oxygen improving 3. Dehydration with acute kidney injury improved 4. Hypokalemia resolved 5. Elevated D-dimer 6. Slight neutropenia and lymphopenia probably due to Covid infection improved 7. History of hypertension. Recommendations 1. continue lasix 2. continue IV Decadron and remdesivir 3. DVT prophylaxis 4. We will monitor D-dimer, BUN/creatinine and potassium 5. Use supplemental oxygen via nasal cannula. 6. Symptomatic treatment for myalgia and cough. 7. Discussed with the patient via video visit and also with the bedside RN. 8. home soon 1-2 days with possible home o2 if ok attending physician Time spent with patient (mins): 20 Diagnosis/Problems Diagnosis/Problems (1) Pneumonia due to COVID-19 virus Status: Acute (2) COVID-19 vaccination not done Status: Acute (3) Acute respiratory failure with hypoxia Status: Acute (4) MARIKA (acute kidney injury) Status: Acute (5) Hypokalemia due to loss of potassium Status: Acute FELY WARREN MD Oct 08, 2020 11:42
[2020-10-08] MEDS: REMDESIVIR INJ 100 MG in NS (IVPB) 230 ML IV SCH (12:42)
[2020-10-08] MEDS: ENOXAPARIN 40 MG/0.4 ML (LOVENOX) SYR SC SCH (12:42)
[2020-10-08 16:00] VITALS: BP 139/74
[2020-10-08 20:00] VITALS: BP 142/92
[2020-10-08] MEDS: amLODIPine 5 MG (NORVASC) TAB PO SCH (20:23)
[2020-10-08] MEDS: MELATONIN 10 MG TABLET PO SCH (20:23)
[2020-10-08] MEDS: rOPINIRole 1 MG (REQUIP) TABLET PO SCH (20:24)
[2020-10-08] MEDS: ALPRAZolam 0.5 MG (XANAX) TAB PO PRN (20:24)
[2020-10-08] MEDS: MONTELUKAST 10 MG (SINGULAIR) TAB PO SCH (20:24)
[2020-10-08] MEDS: guaiFENesin SYRUP 100 MG/5 ML 10 ML (ROBITUSSIN SF) PO PRN (20:25)
[2020-10-08 23:48] VITALS: BP 134/77
[2020-10-09] MEDS: RT-ALBUTEROL INHALER HFA (VENTOLIN HFA) 18 GM IH SCH ×4 (02:21→22:20)
[2020-10-09 04:10] VITALS: BP 127/66
[2020-10-09 07:30] VITALS: BP 135/74
[2020-10-09] MEDS: UMECLIDINIUM BROMIDE (INCRUSE ELLIPTA) 7'S IH SCH (09:03)
[2020-10-09] MEDS: ASPIRIN 325 MG (5 GR) TABLET PO SCH (09:14)
[2020-10-09] MEDS: LABETALOL 200 MG (NORMODYNE) TAB PO SCH ×2 (09:14→20:25)
[2020-10-09] MEDS: DULoxetine 30 MG (CYMBALTA) CAP PO SCH (09:14)
[2020-10-09] MEDS: dexAMETHasone 6 MG TAB (DECADRON) PO SCH (09:14)
[2020-10-09] MEDS: PANTOPRAZOLE 40 MG (PROTONIX) TAB PO SCH (09:14)
[2020-10-09] MEDS: PREGABALIN 50 MG (LYRICA) CAP PO SCH ×3 (09:14→20:25)
[2020-10-09] MEDS: FUROSEMIDE 40 MG (LASIX) TAB PO SCH (09:14)
--- NOTE | 2020-10-09 09:38 | Progress Note ---
Subjective Subjective Date Seen by Provider: Oct 09, 2020 Time Seen by Provider: 09:10 PT IS A 70 Y/O FEMALE WHO IS KNOWN TO ME FROM CLINIC. SHE PRESENTED TO THE HOSPITAL WITH SYMPTOMS OF COVID-19, DX WITH COVID PNEUMONIA AND STARTED ON REMDESIVIR AND STEROIDS. SHE STATES THAT SHE IS FEELING "SHAKY" INSIDE AND THAT SHE JUST DOES NOT FEEL WELL THIS MORNING. SHE DENIES ABDOMINAL DISCOMFORT, CHEST DISCOMFORT. FEELS LIKE SHE IS BREATHING BETTER TODAY Review of Systems General: No Chills; Fatigue, Malaise Pulmonary: Dyspnea, Cough Cardiovascular: No: Chest Pain, Palpitations Gastrointestinal: No: Nausea, Abdominal Pain, Diarrhea, Constipation Neurological: Weakness; No: Confusion All Other Systems Reviewed All Other Systems Reviewed: Yes Objective Exam Vital Signs Vital Signs - First Documented 10/05/20 19:50 FiO2 94 Capillary Refill : General Appearance: No Apparent Distress, WD/WN Eyes: Bilateral Eye Normal Inspection, Bilateral Eye PERRL, Bilateral Eye EOMI HEENT: PERRL/EOMI, Pharynx Normal Neck: Full Range of Motion, Normal Inspection, Non Tender, Supple Respiratory: Chest Non Tender, Normal Breath Sounds, No Accessory Muscle Use, No Respiratory Distress, Crackles (FAINT IN BASES) Cardiovascular: Regular Rate, Rhythm, No Edema, Normal Peripheral Pulses Gastrointestinal: Normal Bowel Sounds, Non Tender, Soft Rectal: Deferred Back: Normal Inspection Extremity: Normal Capillary Refill, No Calf Tenderness, No Pedal Edema Neurologic/Psychiatric: Alert, Oriented x3, No Motor/Sensory Deficits, Normal Mood/Affect Skin: Normal Color, Warm/Dry Lymphatic: No Adenopathy Results Lab Microbiology 10/04/20 Blood Culture - Preliminary, Resulted No growth Assessment/Plan Assessment/Plan Admission Dx ACUTE RESPIRATORY FAILURE COVID 19 PNEUMONIA ACUTE RENAL FAILURE HYPOKALEMIA ANXIETY DEPRESSION HYPERTENSION ESOPHAGEAL REFLUX RESTLESS LEG SYNDROME Assessment and Plan ACUTE RESPIRATORY FAILURE COVID 19 PNEUMONIA ACUTE RENAL FAILURE HYPOKALEMIA ANXIETY DEPRESSION HYPERTENSION ESOPHAGEAL REFLUX RESTLESS LEG SYNDROME LEUKOPENIA ACUTE RESPIRATORY FAILURE DUE TO COVID 19 PNEUMONIA - PT ON REMDESIVIR, STEROIDS, AND BREATHING TREATMENTS, SUPPORTIVE CARE AT THIS TIME. - OXYGEN REQUIREMENT IMPROVING, BUT STILL RANGING BETWEEN 1/2 TO 1 LITER. = DECREASE STEROIDS TODAY - IF STILL FEELING "SHAKY" WILL STOP STEROIDS TOMORROW - WOULD LIKE TO DC TO HOME [facility] LEUKOPENIA - RESOLVED ACUTE RENAL FAILURE - SUPPORTIVE CARE, PUSH FLUIDS, MONITOR SYMPTOMS - RESOLVED HYPOKALEMIA - RESOLVED AFTER REPLENISHED WITH IV FLUIDS ANXIETY AND DEPRESSION - RESTARTED ALPRAZOLAM - RESTARTED DULOXETINE HYPERTENSION - RESUMED HOME REGIMEN ESOPHAGEAL REFLUX - RESTARTED PPI AND CARAFATE RESTLESS LEG SYNDROME - RESUMED ROPINIROLE EDEMA OF LEGS - RESUME LASIX DVT PROPHYLAXIS WITH LOVENOX AND SCD'S GI PROPHYLAXIS WITH PPI Problems: (1) Pneumonia due to COVID-19 virus (2) COVID-19 vaccination not done (3) Acute respiratory failure with hypoxia (4) MARIKA (acute kidney injury) (5) Hypokalemia due to loss of potassium Admission Dx ACUTE RESPIRATORY FAILURE COVID 19 PNEUMONIA ACUTE RENAL FAILURE HYPOKALEMIA ANXIETY DEPRESSION HYPERTENSION ESOPHAGEAL REFLUX RESTLESS LEG SYNDROME Clinical Quality Measures Admission Status Admission Dx ACUTE RESPIRATORY FAILURE COVID 19 PNEUMONIA ACUTE RENAL FAILURE HYPOKALEMIA ANXIETY DEPRESSION HYPERTENSION ESOPHAGEAL REFLUX RESTLESS LEG SYNDROME DANIELLA VILLALPANDO MD Oct 09, 2020 09:38
--- NOTE | 2020-10-09 09:53 | Pulmonary Progress Note ---
Subjective Date Seen by a Provider: Oct 09, 2020 Time Seen by a Provider: 09:32 Subjective/Events-last exam Patient today states that she is feeling much better and eager to go home. She is afebrile. She is on oxygen 5 L nasal cannula. Upon discharge she would need a desaturation study and possibly arrangement of home oxygen. Reviewed with the RN. Vital signs otherwise stable. Sepsis Event Evaluation Height, Weight, BMI Height: 5'5.00" Weight: 221lbs. 3.2oz. 100.283971tg; 34.42 BMI Method:Stated Exam Exam Patient acknowledged, consented, and participated in this virtual visit which was conducted using real time audio/video Vital Signs Date Time Temp Pulse Resp B/P (MAP) Pulse Ox O2 Delivery O2 Flow Rate FiO2 10/09/20 09:08 98 2.00 10/09/20 09:07 98 2.00 10/09/20 07:30 36.4 81 15 135/74 (94) 93 Nasal Cannula 1.00 10/09/20 04:10 36.6 58 18 127/66 (86) 94 Nasal Cannula 1.00 10/09/20 02:21 94 Nasal Cannula 1.00 10/08/20 23:48 36.6 70 20 134/77 (96) 93 Nasal Cannula 1.00 10/08/20 21:12 96 Nasal Cannula 1.00 10/08/20 20:15 95 Nasal Cannula 1.00 10/08/20 20:00 36.0 73 21 142/92 (109) 94 Nasal Cannula 1.00 10/08/20 16:00 36.6 83 20 139/74 (95) 94 Nasal Cannula 1.00 10/08/20 14:25 96 Nasal Cannula 1.00 10/08/20 11:28 36.6 89 18 102/78 (86) 92 Nasal Cannula 1.00 I & O 10/09/20 07:00 Intake Total 2970 ml Output Total 1300 ml Balance 1670 ml Height & Weight Height: 5'5.00" Weight: 221lbs. 3.2oz. 100.317901pb; 34.42 BMI Method:Stated General Appearance: WD/WN, Mild Distress HEENT: PERRL/EOMI, Pharynx Normal Neck: Full Range of Motion, Normal Inspection, Non Tender, Supple Respiratory: Chest Non Tender, Normal Breath Sounds, No Accessory Muscle Use, No Respiratory Distress, Crackles (FAINT IN BASES) Cardiovascular: Regular Rate, Rhythm, No Edema, Normal Peripheral Pulses Extremity: Normal Capillary Refill, No Calf Tenderness, No Pedal Edema Neurologic/Psychiatric: Alert, Oriented x3, No Motor/Sensory Deficits, Normal Mood/Affect Skin: Normal Color, Warm/Dry Lymphatic: No Adenopathy Results Lab reviewed Meds reviewed Assessment/Plan Assessment/Plan 1. Acute Covid pneumonia 2. Acute hypoxic respiratory failure requiring supplemental oxygen improving 3. Dehydration with acute kidney injury improved 4. Hypokalemia resolved 5. Elevated D-dimer 6. Slight neutropenia and lymphopenia probably due to Covid infection improved 7. History of hypertension. Recommendations 1. continue lasix 2. continue IV Decadron and remdesivir 3. DVT prophylaxis 4. De saturation study prior to discharge and arrange home oxygen if needed 5. discussed with patient. Time spent with patient (mins): 15 Diagnosis/Problems Diagnosis/Problems (1) Pneumonia due to COVID-19 virus Status: Acute (2) COVID-19 vaccination not done Status: Acute (3) Acute respiratory failure with hypoxia Status: Acute (4) MARIKA (acute kidney injury) Status: Acute (5) Hypokalemia due to loss of potassium Status: Acute FELY WARREN MD Oct 09, 2020 09:53
--- NOTE | 2020-10-09 13:42 | Diagnostic Imaging Report ---
INDICATION: COVID. Comparison made with prior examination of 10/07/2020. FINDINGS: There is cardiomegaly. Lungs are essentially clear. No pleural effusion or pneumothorax. Mediastinum unremarkable. IMPRESSION: No acute cardiopulmonary abnormality. Unchanged mild cardiomegaly. Dictated by: Dictated on workstation # [id number]
[2020-10-09] MEDS: ENOXAPARIN 40 MG/0.4 ML (LOVENOX) SYR SC SCH (14:12)
[2020-10-09 14:34] LABS: HEMATOCRIT 39 % (35-52); HEMOGLOBIN 12.7 g/dL (11.5-16.0); MEAN CORPUSCULAR HEMOGLOBIN 26 pg (25-34); MEAN CORPUSCULAR HGB CONC 32 g/dL (32-36); MEAN CORPUSCULAR VOLUME 81 fL (80-99); MEAN PLATELET VOLUME 9.9 fL (9.0-12.2); PLATELET COUNT 258 10^3/uL (130-400)
[2020-10-09 14:51] LABS: CALCIUM 8.3 MG/DL (8.5-10.1); CREATININE SERUM 1.41 MG/DL (0.60-1.30); POTASSIUM 3.4 MMOL/L (3.6-5.0)
[2020-10-09 15:35] VITALS: BP 115/55
[2020-10-09] MEDS: amLODIPine 5 MG (NORVASC) TAB PO SCH (20:25)
[2020-10-09] MEDS: ALPRAZolam 0.5 MG (XANAX) TAB PO PRN (20:25)
[2020-10-09] MEDS: guaiFENesin SYRUP 100 MG/5 ML 10 ML (ROBITUSSIN SF) PO PRN (20:25)
[2020-10-09] MEDS: MELATONIN 10 MG TABLET PO SCH (20:25)
[2020-10-09] MEDS: rOPINIRole 1 MG (REQUIP) TABLET PO SCH (20:25)
[2020-10-09] MEDS: MONTELUKAST 10 MG (SINGULAIR) TAB PO SCH (20:25)
[2020-10-09 20:26] VITALS: BP 120/71
[2020-10-09 23:50] VITALS: BP 124/65
[2020-10-10] MEDS: RT-ALBUTEROL INHALER HFA (VENTOLIN HFA) 18 GM IH SCH ×4 (01:41→20:48)
[2020-10-10] MEDS: UMECLIDINIUM BROMIDE (INCRUSE ELLIPTA) 7'S IH SCH (07:57)
[2020-10-10 08:00] VITALS: BP 123/81
--- NOTE | 2020-10-10 08:55 | Pulmonary Progress Note ---
Subjective Date Seen by a Provider: Oct 10, 2020 Time Seen by a Provider: 09:12 Subjective/Events-last exam Today Poonam states that she is feeling fair. She denies any chest pain or shortness of breath with the regular activity. She did have a lot had a desaturation study which revealed that she is hypoxic upon walking requiring 5 L of oxygen. She is afebrile and blood pressure is stable. She is off the remdesivir. She is currently on her dexamethasone 2 mg p.o. daily. Sepsis Event Evaluation Height, Weight, BMI Height: 5'5.00" Weight: 221lbs. 3.2oz. 100.685377jc; 34.42 BMI Method:Stated Exam Exam Patient acknowledged, consented, and participated in this virtual visit which was conducted using real time audio/video Vital Signs Date Time Temp Pulse Resp B/P (MAP) Pulse Ox O2 Delivery O2 Flow Rate FiO2 10/10/20 08:00 35.9 64 18 123/81 (95) 97 Nasal Cannula 1.00 10/10/20 07:58 98 Nasal Cannula 1.00 10/10/20 07:58 98 Nasal Cannula 1.00 10/10/20 01:41 96 Nasal Cannula 2.00 10/09/20 23:50 36.0 58 16 124/65 (84) 92 Nasal Cannula 1.00 10/09/20 22:20 93 Nasal Cannula 2.00 10/09/20 20:30 97 Nasal Cannula 1.00 10/09/20 20:26 79 120/71 (87) 10/09/20 15:35 36.2 56 16 115/55 (75) 95 Nasal Cannula 1.00 10/09/20 15:15 95 Nasal Cannula 2.00 10/09/20 09:08 98 2.00 10/09/20 09:07 98 2.00 I & O 10/10/20 07:00 Intake Total 2670 ml Output Total 800 ml Balance 1870 ml Height & Weight Height: 5'5.00" Weight: 221lbs. 3.2oz. 100.636826cn; 34.42 BMI Method:Stated General Appearance: WD/WN, Mild Distress HEENT: PERRL/EOMI, Pharynx Normal Neck: Full Range of Motion, Normal Inspection, Non Tender, Supple Respiratory: Chest Non Tender, Normal Breath Sounds, No Accessory Muscle Use, No Respiratory Distress, Crackles (FAINT IN BASES) Cardiovascular: Regular Rate, Rhythm, No Edema, Normal Peripheral Pulses Extremity: Normal Capillary Refill, No Calf Tenderness, No Pedal Edema Neurologic/Psychiatric: Alert, Oriented x3, No Motor/Sensory Deficits, Normal Mood/Affect Skin: Normal Color, Warm/Dry Lymphatic: No Adenopathy Results Lab Laboratory Tests 10/09/20 14:19 Meds REVIEWED Radiology CXR REVIEWED Assessment/Plan Assessment/Plan 1. Acute Covid pneumonia 2. Acute hypoxic respiratory failure requiring supplemental oxygen improving 3. Dehydration with acute kidney injury improved 4. Hypokalemia resolved 5. Elevated D-dimer 6. Slight neutropenia and lymphopenia probably due to Covid infection improved 7. History of hypertension. Recommendations 1. continue lasix 2. continue oral dexamethasone 3. DVT prophylaxis 4. De saturation study noted and she will qualify for home oxygen 5. discussed with patient and the RN. Time spent with patient (mins): 15 Diagnosis/Problems Diagnosis/Problems (1) Pneumonia due to COVID-19 virus Status: Acute (2) COVID-19 vaccination not done Status: Acute (3) Acute respiratory failure with hypoxia Status: Acute (4) MARIKA (acute kidney injury) Status: Acute (5) Hypokalemia due to loss of potassium Status: Acute FELY WARREN MD Oct 10, 2020 08:54
[2020-10-10] MEDS: ASPIRIN 325 MG (5 GR) TABLET PO SCH (09:25)
[2020-10-10] MEDS: PANTOPRAZOLE 40 MG (PROTONIX) TAB PO SCH (09:25)
[2020-10-10] MEDS: FUROSEMIDE 40 MG (LASIX) TAB PO SCH (09:26)
[2020-10-10] MEDS: PREGABALIN 50 MG (LYRICA) CAP PO SCH ×3 (09:26→19:42)
[2020-10-10] MEDS: DULoxetine 30 MG (CYMBALTA) CAP PO SCH (09:26)
[2020-10-10] MEDS: LABETALOL 200 MG (NORMODYNE) TAB PO SCH ×2 (09:26→19:42)
--- NOTE | 2020-10-10 11:08 | Progress Note ---
Subjective Subjective Date Seen by Provider: Oct 10, 2020 Time Seen by Provider: 09:00 PT IS A 70 Y/O FEMALE WHO IS KNOWN TO ME FROM CLINIC. SHE PRESENTED TO THE HOSPITAL WITH SYMPTOMS OF COVID-19, DX WITH COVID PNEUMONIA AND STARTED ON REMDESIVIR AND STEROIDS. SHE STATES THAT SHE IS STILL FEELING "SHAKY" INSIDE AND THAT SHE JUST DOES NOT FEEL WELL THIS MORNING - SHE DOES NOT FEEL LIKE SHE CAN GO HOME FEELING BAD SHE DOES THIS MORNING. SHE REPORTS THAT SHE IS A LITTLE MORE WEAK TODAY Review of Systems General: No Chills; Fatigue, Malaise Pulmonary: Dyspnea, Cough Cardiovascular: No: Chest Pain, Palpitations Gastrointestinal: No: Nausea, Abdominal Pain, Diarrhea, Constipation Neurological: Weakness; No: Confusion All Other Systems Reviewed All Other Systems Reviewed: Yes Objective Exam Vital Signs Vital Signs - First Documented 10/05/20 19:50 FiO2 94 Capillary Refill : General Appearance: WD/WN, Other (ILL APPEARING) Eyes: Bilateral Eye Normal Inspection, Bilateral Eye PERRL, Bilateral Eye EOMI HEENT: PERRL/EOMI, Pharynx Normal Neck: Full Range of Motion, Normal Inspection, Non Tender, Supple Respiratory: Chest Non Tender, Lungs Clear, Normal Breath Sounds, No Accessory Muscle Use, No Respiratory Distress Cardiovascular: Regular Rate, Rhythm, No Edema, Normal Peripheral Pulses Gastrointestinal: Normal Bowel Sounds, Non Tender, Soft Rectal: Deferred Back: Normal Inspection Extremity: Normal Capillary Refill, No Calf Tenderness, No Pedal Edema Neurologic/Psychiatric: Alert, Oriented x3, No Motor/Sensory Deficits, Normal Mood/Affect Skin: Normal Color, Warm/Dry Lymphatic: No Adenopathy Results Lab Laboratory Tests 10/09/20 14:19: White Blood Count 8.0, Red Blood Count 4.83, Hemoglobin 12.7, Hematocrit 39, Mean Corpuscular Volume 81, Mean Corpuscular Hemoglobin 26, Mean Corpuscular Hemoglobin Concent 32, Red Cell Distribution Width 15.1H, Platelet Count 258, Mean Platelet Volume 9.9, Sodium Level 135, Potassium Level 3.4L, Chloride Level 100, Carbon Dioxide Level 22, Anion Gap 13, Blood Urea Nitrogen 27H, Creatinine 1.41H, Estimat Glomerular Filtration Rate 37, BUN/Creatinine Ratio 19, Glucose Level 224H, Calcium Level 8.3L Microbiology 10/04/20 Blood Culture - Final, Complete No growth Assessment/Plan Assessment/Plan Admission Dx ACUTE RESPIRATORY FAILURE COVID 19 PNEUMONIA ACUTE RENAL FAILURE HYPOKALEMIA ANXIETY DEPRESSION HYPERTENSION ESOPHAGEAL REFLUX RESTLESS LEG SYNDROME Assessment and Plan ACUTE RESPIRATORY FAILURE COVID 19 PNEUMONIA ACUTE RENAL FAILURE HYPOKALEMIA ANXIETY DEPRESSION HYPERTENSION ESOPHAGEAL REFLUX RESTLESS LEG SYNDROME LEUKOPENIA ACUTE RESPIRATORY FAILURE DUE TO COVID 19 PNEUMONIA - PT ON REMDESIVIR, STEROIDS, AND BREATHING TREATMENTS, SUPPORTIVE CARE AT THIS TIME. - OXYGEN REQUIREMENT IMPROVING, BUT STILL RANGING BETWEEN 1/2 TO 1 LITER. = WILL STOP STEROIDS TODAY DUE TO HER INTERNAL SHAKINESS - WOULD LIKE TO DC TO HOME [facility] - HOPEFULLY WEDNESDAY - WILL NEED HOME HEALTH ON DC LEUKOPENIA - RESOLVED ACUTE RENAL FAILURE - SUPPORTIVE CARE, PUSH FLUIDS, MONITOR SYMPTOMS - RESOLVED HYPOKALEMIA - RESOLVED AFTER REPLENISHED WITH IV FLUIDS ANXIETY AND DEPRESSION - RESTARTED ALPRAZOLAM - RESTARTED DULOXETINE HYPERTENSION - RESUMED HOME REGIMEN ESOPHAGEAL REFLUX - RESTARTED PPI AND CARAFATE RESTLESS LEG SYNDROME - RESUMED ROPINIROLE EDEMA OF LEGS - RESUME LASIX - WILL DECREASE DOSE DUE TO INCREASE IN CREATININE ORAL THRUSH - START NYSTATIN DVT PROPHYLAXIS WITH LOVENOX AND SCD'S GI PROPHYLAXIS WITH PPI Problems: (1) Pneumonia due to COVID-19 virus (2) COVID-19 vaccination not done (3) Acute respiratory failure with hypoxia (4) MARIKA (acute kidney injury) (5) Hypokalemia due to loss of potassium Admission Dx ACUTE RESPIRATORY FAILURE COVID 19 PNEUMONIA ACUTE RENAL FAILURE HYPOKALEMIA ANXIETY DEPRESSION HYPERTENSION ESOPHAGEAL REFLUX RESTLESS LEG SYNDROME Clinical Quality Measures Admission Status Admission Dx ACUTE RESPIRATORY FAILURE COVID 19 PNEUMONIA ACUTE RENAL FAILURE HYPOKALEMIA ANXIETY DEPRESSION HYPERTENSION ESOPHAGEAL REFLUX RESTLESS LEG SYNDROME DANIELLA VILLALPANDO MD Oct 10, 2020 11:08
[2020-10-10] MEDS ORDERED: KCL 20 MEQ TAB (K-DUR) PO ONE (11:15)
[2020-10-10] MEDS: ENOXAPARIN 40 MG/0.4 ML (LOVENOX) SYR SC SCH (12:36)
[2020-10-10] MEDS: NYSTATIN ORAL SUSP 5 ML UDC PO SCH ×2 (12:36→17:33)
[2020-10-10 15:28] VITALS: BP 112/62
[2020-10-10] MEDS: MONTELUKAST 10 MG (SINGULAIR) TAB PO SCH (19:41)
[2020-10-10] MEDS: amLODIPine 5 MG (NORVASC) TAB PO SCH (19:41)
[2020-10-10] MEDS: MELATONIN 10 MG TABLET PO SCH (19:42)
[2020-10-10] MEDS: rOPINIRole 1 MG (REQUIP) TABLET PO SCH (19:42)
[2020-10-10] MEDS: ALPRAZolam 0.5 MG (XANAX) TAB PO PRN (22:47)
[2020-10-11] MEDS: NYSTATIN ORAL SUSP 5 ML UDC PO SCH ×3 (00:03→11:52)
[2020-10-11 00:10] VITALS: BP 101/56
[2020-10-11 01:58] VITALS: BP 101/56
[2020-10-11] MEDS ORDERED: RT-ALBUTEROL INHALER HFA (VENTOLIN HFA) 18 GM IH PRN (02:00)
[2020-10-11 05:58] LABS: BASOPHILS % (AUTO) 0 % (0-10); EOSINOPHILS % (AUTO) 0 % (0-10); HEMATOCRIT 37 % (35-52); HEMOGLOBIN 11.7 g/dL (11.5-16.0); LYMPHOCYTES # (AUTO) 2.2 10^3/uL (1.0-4.0); LYMPHOCYTES % (AUTO) 23 % (12-44); MEAN CORPUSCULAR HEMOGLOBIN 26 pg (25-34); MEAN CORPUSCULAR HGB CONC 31 g/dL (32-36); MEAN CORPUSCULAR VOLUME 82 fL (80-99); MEAN PLATELET VOLUME 10.2 fL (9.0-12.2); MONOCYTES # (AUTO) 0.6 10^3/uL (0.0-1.0); MONOCYTES % (AUTO) 7 % (0-12); NEUTROPHILS # (AUTO) 5.8 10^3/uL (1.8-7.8); NEUTROPHILS % (AUTO) 61 % (42-75); PLATELET COUNT 258 10^3/uL (130-400); WHITE BLOOD COUNT 9.6 10^3/uL (4.3-11.0)
[2020-10-11 06:14] LABS: POTASSIUM 3.4 MMOL/L (3.6-5.0)
[2020-10-11 06:15] LABS: CALCIUM 8.2 MG/DL (8.5-10.1)
[2020-10-11 06:20] LABS: CREATININE SERUM 1.21 MG/DL (0.60-1.30)
[2020-10-11 06:47] LABS: ATYPICAL LYMPHOCYTES 1 %; BAND NEUTROPHILS 1 %; HYPOCHROMASIA SLIGHT; LYMPHOCYTES % (MANUAL) 30 %; METAMYELOCYTES % 1 %; MONOCYTES % (MANUAL) 4 %; NEUTROPHILS % (MANUAL) 63 %
[2020-10-11 06:48] LABS: BURR CELLS SLIGHT; MICROCYTOSIS SLIGHT
[2020-10-11 07:46] VITALS: BP 121/70
[2020-10-11] MEDS: UMECLIDINIUM BROMIDE (INCRUSE ELLIPTA) 7'S IH SCH (08:35)
[2020-10-11] MEDS: PREGABALIN 50 MG (LYRICA) CAP PO SCH ×2 (08:59→13:18)
[2020-10-11] MEDS: PANTOPRAZOLE 40 MG (PROTONIX) TAB PO SCH (08:59)
[2020-10-11] MEDS: DULoxetine 30 MG (CYMBALTA) CAP PO SCH (08:59)
[2020-10-11] MEDS: LABETALOL 200 MG (NORMODYNE) TAB PO SCH (08:59)
[2020-10-11] MEDS: ASPIRIN 325 MG (5 GR) TABLET PO SCH (08:59)
[2020-10-11] MEDS: ALPRAZolam 0.5 MG (XANAX) TAB PO PRN (09:02)
[2020-10-11] MEDS ORDERED: KCL 20 MEQ TAB (K-DUR) PO ONE (09:30)
--- NOTE | 2020-10-11 09:31 | Pulmonary Progress Note ---
Subjective Date Seen by a Provider: Oct 11, 2020 Time Seen by a Provider: 09:15 Subjective/Events-last exam Patient acknowledged, consented, and participated in this virtual visit which was conducted using real time audio/video. Thank you for asking us to see this patient for resolving respiratory insufficiency and distress. HPC: Recent events: Plan for D/C today per RN. ROS: no complaints. PE: VSS HR 65 nsr BP 180/70 RR 20 O2 sat 93% on RA. pt in good spirits. HEENT: No obvious masses, adenopathy or JVD. Chest: clear to auscultation. CV: RRR S1 S2 No murmur or added sounds. Abd: Non-tender. Bowel sounds . : Unremarkable. Klein . HEAD CHARRER/psychiatric: Alert and oriented, grossly intact. No obvious focal findings. Extremities:No edema. Capillary refill < 3 seconds. Skin: unremarkable. Results: Decreased K 3.4 . A/P: Available chart/ vitals / labs / Images reviewed Video assessment done using teleICU camera, rest of exam as per RN Respiratory: Continue present management with d/c today. replace K PO. Critical Care: previously critically ill patient discharging today. Discussed with RN. Asked RN to reach out to eICU if any questions or concerns later. Time spent with patient/coordination of care with other health professionals (mins): 15. Sepsis Event Evaluation Sepsis Stage: Ruled Out Height, Weight, BMI Height: 5'5.00" Weight: 221lbs. 3.2oz. 100.622624ch; 34.42 BMI Method:Stated Focused Exam Sepsis Stage: Ruled Out Exam Exam Patient acknowledged, consented, and participated in this virtual visit which was conducted using real time audio/video Vital Signs Date Time Temp Pulse Resp B/P (MAP) Pulse Ox O2 Delivery O2 Flow Rate FiO2 10/11/20 08:35 97 Room Air 10/11/20 07:46 36.6 65 20 121/70 (87) 93 Nasal Cannula 1.00 10/11/20 01:58 36.0 60 93 10/11/20 00:10 36.0 60 16 101/56 (71) 93 Nasal Cannula 1.00 10/10/20 20:49 94 Room Air 1.00 10/10/20 19:45 Nasal Cannula 5.00 10/10/20 15:28 36.4 63 18 112/62 (79) 95 Nasal Cannula 1.00 10/10/20 14:50 95 Room Air 1.00 I & O 10/11/20 07:00 Intake Total 1875 ml Balance 1875 ml Height & Weight Height: 5'5.00" Weight: 221lbs. 3.2oz. 100.454724uf; 34.42 BMI Method:Stated General Appearance: WD/WN, Mild Distress HEENT: PERRL/EOMI, Pharynx Normal Neck: Full Range of Motion, Normal Inspection, Non Tender, Supple Respiratory: Chest Non Tender, Normal Breath Sounds, No Accessory Muscle Use, No Respiratory Distress, Crackles (FAINT IN BASES) Cardiovascular: Regular Rate, Rhythm, No Edema, Normal Peripheral Pulses Extremity: Normal Capillary Refill, No Calf Tenderness, No Pedal Edema Neurologic/Psychiatric: Alert, Oriented x3, No Motor/Sensory Deficits, Normal Mood/Affect Skin: Normal Color, Warm/Dry Lymphatic: No Adenopathy Results Lab Laboratory Tests 10/09/20 14:19 10/11/20 05:35 Assessment/Plan Assessment/Plan see free text Time spent on discussion(mins): 0 Diagnosis/Problems Diagnosis/Problems (1) COVID-19 virus infection Status: Acute MISHA DAWKINS MD Oct 11, 2020 09:31
[2020-10-11] MEDS ORDERED: NYST1000 PO (10:03)
[2020-10-11] MEDS ORDERED: POTA-51 PO (10:03)
--- NOTE | 2020-10-11 10:05 | D/C HH Face to Face Order ---
D/C Face to Face Orders Reconcile Patient Problems Problems Reviewed?: Yes Instructions for Patient Via [facility] [place], Patient Instructions/FollowUp: Fwup with Dr. Lao in 1 week Physician to follow Patient: Dr. Lao Discharge Diet for Home: Cardiac Diet Patient Data-Allergies,Ht & Wt Patient Allergies: Coded Allergies: No Known Drug Allergies (Unverified , 09/14/09) Height (Feet): 5 Height (Inches): 5.00 Weight (Pounds): 221 Weight (Ounces): 3.2 Home Health Need/Face to Face Date of Face to Face: Oct 11, 2020 Clinical Findings: Generalized weakness and fatigue, Instability, Unsteady gait I have seen Pt [id number]: Yes Discharged To: Home Diagnosis/Conditions: Post-COVID HTN Renal Insufficiency Anxiety Patient is Homebound due to: Muscle weakness Homebound Status Due to the above stated illness, injury or surgical procedure (medical condition or diagnosis) and associated clinical findings, the patient is home bound because of his/her inability to leave home except with aid of a supportive device and/or person AND leaving the home requires a considerable and taxing effort or is medically contraindicated. Pt req the following assistanc: [facility] Nursing Orders Home Health Services Order: Nursing Services, Patient Safety Coordinator-Evaluate & Treat, Physical Therapy-Evaluate & Treat Home Health Infusion Therapy Line Start Date: Oct 04, 2020 Home Health Lab Orders Labs (specify type/freq): Chem 7 in 1 week Certify Stmt I certify that this patient is under my care and that I, a nurse practitioner or a physician; a catering administrative assistant working with me, had a face to face encounter that - meets the physician face to face encounter requirements with this patient as dated. DEMARCUS CALLEJAS DO Oct 11, 2020 10:05
[2020-10-11] MEDS ORDERED: inSUlin ASPART (NovoLOG) 1 UNIT/0.01 ML (CHARGE PER UNIT) SC SCH (11:00)
[2020-10-11] MEDS: ENOXAPARIN 40 MG/0.4 ML (LOVENOX) SYR SC SCH (11:52)
--- NOTE | 2020-10-11 13:36 | Discharge Summary ---
Diagnosis/Chief Complaint Date of Admission Oct 04, 2020 at 10:35 Date of Discharge Discharge Date: Oct 11, 2020 Discharge Diagnosis ACUTE RESPIRATORY FAILURE--resolved COVID 19 PNEUMONIA--improved ACUTE RENAL FAILURE--improved HYPOKALEMIA--improving ANXIETY--chronic, exacerbated by recent hospital stay and steroids DEPRESSION--stable HYPERTENSION--stable ESOPHAGEAL REFLUX--stable RESTLESS LEG SYNDROME--stable LEUKOPENIA--resolved Discharge Summary Hospital Course Was the Problem List Reviewed?: Yes Hospital Course This is a 70 year old female who was admitted initially with acute respiratory failure and COVID-19 pneumonia. She was treated with IV decadron, remdesivir, oxygen support, and IV antibiotics for secondary pneumonia. She improved except for weakness and shakiness and was transitioned to SWING bed status. Her renal function has improved with a BUN of 28 and Cr of 1.21. Her potassium has improved to 3.4 and she has been given extra potassium on the day of discharge. Her antibiotics and steroids have been discontinued. Her WBC count is back to normal. She is no longer requiring oxygen. She is somewhat distraught about her having to stay in the hospital longer and go to a NH on discharge. At this time she will be discharged to home with homehealth and will follow up with Dr. Lao's office next week. She will have her Chemistry repeated in 1 week. Labs Laboratory Tests 10/09/20 14:19: Red Cell Distribution Width 15.1H, Potassium Level 3.4L, Blood Urea Nitrogen 27H , Creatinine 1.41H, Glucose Level 224H, Calcium Level 8.3L 10/11/20 05:35: Red Cell Distribution Width 15.3H, Potassium Level 3.4L, Blood Urea Nitrogen 28H , Calcium Level 8.2L, Mean Corpuscular Hemoglobin Concent 31L, Immature Granulocyte # (Auto) 0.8H, D-Dimer 0.83H 10/11/20 10:39: Glucometer 186H Procedures None. Discharge Physical Examination Allergies: Coded Allergies: No Known Drug Allergies (Unverified , 09/14/09) Vitals & I&Os Vital Signs Date Time Temp Pulse Resp B/P (MAP) Pulse Ox O2 Delivery O2 Flow Rate FiO2 10/11/20 08:35 97 Room Air 10/11/20 07:46 36.6 65 20 121/70 (87) 1.00 10/06/20 20:15 92 General Appearance: Alert, Oriented X3, No Acute Distress Respiratory: Clear to Auscultation Cardiovascular: Regular Rate Abdominal: Normal Bowel Sounds, Soft, No Tenderness Skin: No Rashes, No Breakdown Neuro: Normal Gait, Normal Speech Psych/Mental Status: Mental Status NL, Mood NL Discharge Home Medications Reviewed and agree with Discharge Medication list on patient's Discharge Instruction sheet Instructions to Patient/Family Please see electronic discharge instructions given to patient. DEMARCUS CALLEJAS DO Oct 11, 2020 13:36
[2020-10-11 14:00] VITALS: BP 121/70
[2020-10-12] MEDS ORDERED: FUROSEMIDE 40 MG (LASIX) TAB PO SCH (09:00)
== END 2020-10-11 14:00 | disposition home health service (06) | DRG 177 ==
LOC: EDUNIT# 08:49 → ER 08:57 → 4TH 10:35
PROVIDERS: ADMIT Family Medicine; ATTEND Family Medicine
PROC: XW033E5 Introduction of Remdesivir Anti-infective into Peripheral Vein, Percutaneous Approach, New Technology Group 5 (ICD-10-PCS; principal; 2020-10-04)
DX: U07.1 COVID-19 (principal); J96.01 Acute respiratory failure with hypoxia; J12.82 Pneumonia due to coronavirus disease 2019; N17.9 Acute kidney failure, unspecified; B37.0 Candidal stomatitis; E87.6 Hypokalemia; F41.9 Anxiety disorder, unspecified; F32.9 Major depressive disorder, single episode, unspecified; I10 Essential (primary) hypertension; K21.9 Gastro-esophageal reflux disease without esophagitis; G25.81 Restless legs syndrome; D72.819 Decreased white blood cell count, unspecified; R60.0 Localized edema; Z79.82 Long term (current) use of aspirin; Z79.899 Other long term (current) drug therapy; E78.00 Pure hypercholesterolemia, unspecified; M19.90 Unspecified osteoarthritis, unspecified site; G89.29 Other chronic pain; E66.9 Obesity, unspecified; M54.9 Dorsalgia, unspecified; Z68.34 Body mass index [BMI] 34.0-34.9, adult; E86.0 Dehydration
CPT/HCPCS: 36415; 71045; 80048; 80053; 82947; 83605; 84145; 85007; 85025; 85027; 85379; 85610; 85730; 86141; 87040; 87636; 94640; 94664; 94760; 96360

== ENCOUNTER → 2021-01-21 | Outpatient (CLI) | payer MEDICARE ==
[~2021-01-21] MED LIST changes: +AMOX1TAB11 PO; +HYDR-3817 PO; +MAGN250T35 PO; +MELA10TA2 PO; +NYST1000 PO; +PANT40TA52 PO; +POTA-51 PO; +PREG50CA65 PO; +TRAM50TA3 PO
--- NOTE | 2021-01-21 15:53 | Diagnostic Imaging Report ---
INDICATION: Routine screening. Comparison is made with prior mammogram 09/15/2019 and 11/11/2017. 2-D and 3-D bilateral screening mammography was performed with CAD. Both breasts are heterogeneously dense, limiting the sensitivity of mammography. No dominant mass or malignant-appearing microcalcifications are seen. Axillae are unremarkable. IMPRESSION: No mammographic features suspicious for malignancy are identified. BI-RADS Category 1 ACR BI-RADS Category 1: Negative. Result letter will be mailed to the patient. Note: At least 10% of breast cancer is not imaged by mammography. Dictated by: Dictated on workstation # [id number]
== END ==
LOC: RAD 14:15
PROVIDERS: ATTEND Nurse Practitioner Family
DX: Z12.31 Encounter for screening mammogram for malignant neoplasm of breast (principal)
CPT/HCPCS: 77063; 77067

== ENCOUNTER → 2021-06-09 | Outpatient (CLI) | payer MEDICARE, OTHER ==
[~2021-06-09] MED LIST changes: +MONT-40 PO; -MONT10TA32 PO; +POTA-179 PO; -POTA20TA15 PO; +RT-ALBUTEROL SULF 2.5 MG/3 ML PRE-MIX VIAL INH ONE
--- NOTE | 2021-06-09 13:17 | Diagnostic Imaging Report ---
PROCEDURE: CT chest without contrast. TECHNIQUE: Multiple contiguous axial images were obtained through the chest without the use of intravenous contrast. Auto Exposure Controls were utilized during the CT exam to meet ALARA standards for radiation dose reduction. INDICATION: Shortness of air post COVID. COMPARISON: Exam is compared with chest CT of 06/09/2017. FINDINGS: The lungs are clear. No findings of pneumonia. No ground-glass opacity. There is trace atelectasis in the lingular segment of the left upper lobe. No findings of edema or pneumonia. No lung mass or suspicious pulmonary nodularity. There is no thoracic aneurysm. There are coronary artery atherosclerotic vascular calcifications and a small hiatal hernia, chronic. No effusion, pneumothorax, or acute chest wall pathology. There was no evidence for thoracic adenopathy. IMPRESSION: 1. Clear unremarkable lungs. No evidence for neoplasm, infiltrate, or fibrosis. No acute finding. 2. Retrocardiac hiatal hernia, chronic. Dictated by: Dictated on workstation # [id number]
== END ==
LOC: RT 12:15
PROVIDERS: ATTEND Family Medicine
DX: R06.02 Shortness of breath (principal); K44.9 Diaphragmatic hernia without obstruction or gangrene; R06.03 Acute respiratory distress; U09.9 Post COVID-19 condition, unspecified
CPT/HCPCS: 71250; 94060; 94726; 94729

== ENCOUNTER 2021-10-14 12:08 | Observation (INO) | payer MEDICARE, OTHER ==
[~2021-10-14] VITALS: Ht 165.1 cm; Wt 104.5 kg
[~2021-10-14 12:08] MED LIST changes: -RT-ALBUTEROL SULF 2.5 MG/3 ML PRE-MIX VIAL INH ONE
--- NOTE | 2021-10-14 12:33 | ED General ---
General Chief Complaint: COVID19 Suspect/Confirmed Stated Complaint: LOW O2, DIZZINESS, LOW BP Source of Information: Patient Exam Limitations: No Limitations History of Present Illness Date Seen by Provider: Oct 14, 2021 Time Seen by Provider: 12:31 Initial Comments Patient is a 71-year-old female who presents ED with increased lethargy, generalized weakness, difficulty walking. Symptoms started on Wednesday. She has a history of chronic kidney disease stage III, COPD, hypertension. She currently follows assembly adjuster Dr. Franklin at [place]. She states 2 weeks ago she was retaining fluid. Was placed on a diuretic and stopped this past Wednesday. Lost around 11 pounds. She has regained 4 pounds. She states she has not had significant leg swelling. She is not up-to-date on her COVID-vaccine. She denies of any chest pain, cough, abdominal pain, vomiting, diarrhea, headache or unilateral muscle weakness or sensory changes, fever. She has been urinating. She does wear 4 L oxygen daily for her COPD. She has had some mild increased short of breath. Currently on oral potassium. She denies of any history of CHF or known coronary artery disease. 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 Patient takes baby aspirin Allergies and Home Medications Allergies Coded Allergies: No Known Drug Allergies (Unverified , 10/14/21) Patient Home Medication List Home Medication List Reviewed: Yes Amlodipine Besylate (Amlodipine Besylate) 5 Mg Tablet, 2.5 MG PO BID, (Reported) Entered as Reported by: APRIL TSANG on 10/14/211818 Last Action: Reviewed Aspirin (Aspirin) 81 Mg Tab.chew, 81 MG PO DAILY, (Reported) Entered as Reported by: APRIL TSANG on 10/14/211818 Last Action: Reviewed Atorvastatin Calcium (Atorvastatin Calcium) 10 Mg Tablet, 10 MG PO HS, (Reported) Entered as Reported by: GARCIA JEFFERS on 11/04/181544 Last Action: Reviewed Duloxetine HCl (Duloxetine HCl) 60 Mg Capsule.dr, 60 MG PO DAILY, (Reported) Entered as Reported by: GARCIA JEFFERS on 11/04/181544 Last Action: Reviewed Ergocalciferol (Vitamin D2) (Vitamin D2) 1,250 Mcg (74917 Unit) Capsule, 1,250 MCG PO WEEK, (Reported) Entered as Reported by: APRIL TSANG on 10/14/211818 Last Action: Reviewed Furosemide (Furosemide) 40 Mg Tablet, 40 MG PO DAILY, (Reported) Entered as Reported by: GARCIA JEFFERS on 11/04/181544 Last Action: Held Labetalol HCl (Labetalol HCl) 200 Mg Tablet, 400 MG PO BID, (Reported) Entered as Reported by: GARCIA JEFFERS on 11/04/181544 Last Action: Reviewed Losartan Potassium (Losartan Potassium) 100 Mg Tablet, 100 MG PO DAILY, (Reported) Entered as Reported by: APRIL TSANG on 10/14/211818 Last Action: Reviewed Magnesium Oxide (Magnesium Oxide) 250 Mg Tablet, 250 MG PO DAILY, (Reported) Entered as Reported by: TRU HANEY on 10/04/201532 Last Action: Reviewed Melatonin (Melatonin) 10 Mg Tablet, 10 MG PO HS, (Reported) Entered as Reported by: TRU HANEY on 10/04/201532 Last Action: Reviewed Montelukast Sodium (Montelukast Sodium) 10 Mg Tablet, 10 MG PO HS, (Reported) Entered as Reported by: GARCIA JEFFERS on 11/04/181544 Last Action: Reviewed Pantoprazole Sodium (Pantoprazole Sodium) 40 Mg Tablet.dr, 40 MG PO DAILY, (Reported) Entered as Reported by: TRU HANEY on 10/04/201532 Last Action: Reviewed Potassium Chloride (Potassium Chloride) 20 Meq Tablet.er, 20 MEQ PO BID Prescribed by: DEMARCUS CALLEJAS on 10/11/20 1003 Last Action: Reviewed Pregabalin (Pregabalin) 50 Mg Capsule, 50 MG PO TID, (Reported) Entered as Reported by: TRU HANEY on 10/04/201532 Last Action: Reviewed Ropinirole HCl (Ropinirole HCl) 1 Mg Tablet, 1 MG PO HS, (Reported) Entered as Reported by: GARCIA JEFFERS on 11/04/181544 Last Action: Reviewed Tramadol HCl (Tramadol HCl) 50 Mg Tablet, 100 MG PO BID, (Reported) Entered as Reported by: APRIL TSANG on 10/14/211818 Last Action: Reviewed Discontinued Medications Alprazolam (Alprazolam) 0.5 Mg Tablet, 0.25 MG PO HS, (Reported) Discontinued Reason: Provider Change Entered as Reported by: TRU HANEY on 10/04/201532 Last Action: Discontinued Amlodipine Besylate (Amlodipine Besylate) 5 Mg Tablet, 5 MG PO HS, (Reported) Discontinued Reason: Provider Change Entered as Reported by: GARCIA JEFFERS on 11/04/181544 Last Action: Discontinued Aspirin (Aspirin) 325 Mg Tablet, 325 MG PO DAILY, (Reported) Discontinued Reason: No Longer Taking Entered as Reported by: GARCIA JEFFERS on 11/04/181544 Last Action: Discontinued Hydrocodone/Acetaminophen (Hydrocodone-Acetamin 7.5-325) 1 Each Tablet, 1 EA PO Q8H PRN for PAIN-MODERATE (5-7), (Reported) Discontinued Reason: No Longer Taking Entered as Reported by: TRU HANEY on 10/04/201532 Last Action: Discontinued Nystatin (Nystatin) 100,000 Unit/1 Ml Oral.susp, 5 ML PO Q6HR Discontinued Reason: No Longer Taking Prescribed by: DEMARCUS CALLEJAS on 10/11/20 100 Last Action: Discontinued Sucralfate (Sucralfate) 1 Gm Tablet, 1 GM PO BID PRN for [place]ER [place], (Reported) Discontinued Reason: No Longer Taking Entered as Reported by: GARCIA JEFFERS on 11/04/181544 Last Action: Discontinued Review of Systems Review of Systems Constitutional: No chills, No diaphoresis; malaise, weakness EENTM: No blurred vision, No double vision Respiratory: No cough, No dyspnea on exertion; short of breath Cardiovascular: No chest pain Gastrointestinal: No abdominal pain, No diarrhea; nausea; No vomiting Genitourinary: No decreased output, No dysuria, No frequency Musculoskeletal: No back pain, No gout Skin: No change in color, No change in hair/nails All Other Systems Reviewed Negative Unless Noted: Yes Past Uocczfd-Tspmkf-Wppwjo Hx Past Medical History Surgeries: Yes (back 3yrs. 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 Genitourinary: No Gastrointestinal: Yes Gastroesophageal Reflux Musculoskeletal: Yes (OSTEOARTHRITIS;BILAT KNEE REPLACEMENTS;L SHOULDER REPLACEMENT;BACK X2;RLS ) Arthritis, Chronic Back Pain Endocrine: Yes (OBESITY) HEENT: No Cancer: No Psychosocial: No Blood Disorders: No Family Medical History FH: CHF (congestive heart failure) 19 FATHER 19 MOTHER FH: breast cancer G8 SISTER FH: liver cancer G8 BROTHER Kidney disease 19 FATHER Heart Disease, Cancer, Hypertension, Renal Disease PAST SURGICAL HISTORY: -BACK SURGERY X 2 - -HYSTERECTOMY ( 3 SURGERIES ) -CHOLECYSTECTOMY -APPENDECTOMY -BILATERAL KNEE REPLACEMENTS--BOTH >20 YEARS AGO; RIGHT KNEE REPLACED BY DR. DAWSON; LEFT KNEE REPLACED BY DR. BRAND -RIGHT SHOULDER REPLACEMENT Physical Exam Vital Signs Vital Signs - First Documented 10/14/21 12:20 Temp 36.6 Pulse 66 Resp 20 B/P (MAP) 138/79 (98) Capillary Refill : Height, Weight, BMI Height: 5'5.00" Weight: 221lbs. 3.2oz. 100.849248hy; 34.42 BMI Method:Stated General Appearance: No Apparent Distress, WD/WN Eyes: Bilateral Eye Normal Inspection, Bilateral Eye PERRL, Bilateral Eye EOMI HEENT: PERRL/EOMI, TMs Normal, Normal ENT Inspection, Pharynx Normal Neck: Full Range of Motion, Normal Inspection, Non Tender, Supple Respiratory: Chest Non Tender, Lungs Clear, Normal Breath Sounds, No Accessory Muscle Use, No Respiratory Distress Cardiovascular: Regular Rate, Rhythm, No Edema, No Gallop, No JVD, No Murmur Gastrointestinal: Normal Bowel Sounds, No Organomegaly, No Pulsatile Mass, Non Tender Back: Normal Inspection, No CVA Tenderness, No Vertebral Tenderness Extremity: Normal Capillary Refill, Normal Inspection, Normal Range of Motion, Non Tender, No Calf Tenderness Neurologic/Psychiatric: Alert, Oriented x3, No Motor/Sensory Deficits, Normal Mood/Affect, assistant director II-XII Norm as Tested Skin: Normal Color, Warm/Dry Progress/Results/Core Measures Suspected Sepsis SIRS Temperature: Pulse: Respiratory Rate: Laboratory Tests 10/14/21 12:35: White Blood Count 5.8 Blood Pressure / Mean: Laboratory Tests 10/14/21 12:35: Creatinine 2.36H, INR Comment 1.0, Platelet Count 243, Total Bilirubin 0.6 Results/Orders Lab Results Laboratory Tests Test 10/14/21 12:35 10/14/21 13:12 Range/Units White Blood Count 5.8 4.3-11.0 10^3/uL Red Blood Count 4.37 3.80-5.11 10^6/uL Hemoglobin 11.5 11.5-16.0 g/dL Hematocrit 36 35-52 % Mean Corpuscular Volume 83 80-99 fL Mean Corpuscular Hemoglobin 26 25-34 pg Mean Corpuscular Hemoglobin Concent 32 32-36 g/dL Red Cell Distribution Width 14.0 10.0-14.5 % Platelet Count 243 130-400 10^3/uL Mean Platelet Volume 9.9 9.0-12.2 fL Immature Granulocyte % (Auto) 1 % Neutrophils (%) (Auto) 64 42-75 % Lymphocytes (%) (Auto) 28 12-44 % Monocytes (%) (Auto) 5 0-12 % Eosinophils (%) (Auto) 1 0-10 % Basophils (%) (Auto) 1 0-10 % Neutrophils # (Auto) 3.7 1.8-7.8 10^3/uL Lymphocytes # (Auto) 1.6 1.0-4.0 10^3/uL Monocytes # (Auto) 0.3 0.0-1.0 10^3/uL Eosinophils # (Auto) 0.1 0.0-0.3 10^3/uL Basophils # (Auto) 0.1 0.0-0.1 10^3/uL Immature Granulocyte # (Auto) 0.0 0.0-0.1 10^3/uL Prothrombin Time 14.0 12.2-14.7 SEC INR Comment 1.0 0.8-1.4 Activated Partial Thromboplast Time 29 24-35 SEC Sodium Level 137 135-145 MMOL/L Potassium Level 3.1 L 3.6-5.0 MMOL/L Chloride Level 96 L 98-107 MMOL/L Carbon Dioxide Level 27 21-32 MMOL/L Anion Gap 14 5-14 MMOL/L Blood Urea Nitrogen 40 H 7-18 MG/DL Creatinine 2.36 H 0.60-1.30 MG/DL Estimat Glomerular Filtration Rate 21 BUN/Creatinine Ratio 17 Glucose Level 159 H 70-105 MG/DL Calcium Level 9.8 8.5-10.1 MG/DL Corrected Calcium 9.6 8.5-10.1 MG/DL Magnesium Level 1.7 1.6-2.4 MG/DL Total Bilirubin 0.6 0.1-1.0 MG/DL Aspartate Amino Transf (AST/SGOT) 19 5-34 U/L Alanine Aminotransferase (ALT/SGPT) 13 0-55 U/L Alkaline Phosphatase 85 40-136 U/L Myoglobin 140.7 H 10.0-92.0 NG/ML Troponin I < 0.028 <0.028 NG/ML B-Type Natriuretic Peptide 57.6 <100.0 PG/ML Total Protein 7.4 6.4-8.2 GM/DL Albumin 4.3 3.2-4.5 GM/DL Lipase 36 8-78 U/L Influenza Type A (RT-PCR) Not Detected Not Detecte Influenza Type B (RT-PCR) Not Detected Not Detecte SARS-CoV-2 RNA (RT-PCR) Not Detected Not Detecte Urine Color YELLOW Urine Clarity CLEAR Urine pH 6.0 5-9 Urine Specific [place] 1.010 L 1.016-1.022 Urine Protein NEGATIVE NEGATIVE Urine Glucose (UA) NEGATIVE NEGATIVE Urine Ketones NEGATIVE NEGATIVE Urine Nitrite NEGATIVE NEGATIVE Urine Bilirubin NEGATIVE NEGATIVE Urine Urobilinogen 0.2 < = 1.0 MG/DL Urine Leukocyte Esterase 2+ H NEGATIVE Urine RBC (Auto) TRACE-I H NEGATIVE Urine RBC 0-2 /HPF Urine WBC 5-10 H /HPF Urine Squamous Epithelial Cells RARE /HPF Urine Crystals NONE /LPF Urine Bacteria NEGATIVE /HPF Urine Casts NONE /LPF Urine Mucus NEGATIVE /LPF Urine Culture Indicated YES My Orders Orders - DENVER OVIEDO PA Cbc With Automated Diff (10/14/21 12:27) Magnesium (10/14/21 12:27) Chest 1 View, Ap/Pa Only (10/14/21 12:27) Ekg Tracing (10/14/21 12:27) Comprehensive Metabolic Panel (10/14/21 12:27) Myoglobin Serum (10/14/21 12:27) Protime With Inr (10/14/21 12:27) Partial Thromboplastin Time (10/14/21 12:27) O2 (10/14/21 12:27) Monitor-Rhythm Ecg Trace Only (10/14/21 12:27) Ed Iv/Invasive Line Start (10/14/21 12:27) Bnp [place] (10/14/21 12:27) Troponin I [place] (10/14/21 12:27) Lipase (10/14/21 12:27) Urinalysis (10/14/21 12:27) Covid 19 Inhouse Test (10/14/21 12:27) Influenza A And B By Pcr (10/14/21 12:27) Medications Given in ED Vital Signs/I&O 10/14/21 10/14/21 10/14/21 12:20 12:20 12:20 Temp 36.6 Pulse 66 Resp 20 B/P (MAP) 138/79 (98) Pulse Ox 98 99 O2 Delivery Nasal Cannula Nasal Cannula Nasal Cannula O2 Flow Rate 4.00 4.00 4.00 4.00 Capillary Refill : ECG Comment Sinus rhythm, low QRS voltage in pericardial leads, 65 bpm, QRS duration 98 MS, QTc 458 MS. Departure Communication (Admissions) Time/Spoke to Admitting Phy: 13:[address] LAO Communication (PCP) Patient recently finished 10 days worth of diuretic for fluid retention. History of chronic kidney disease stage III COPD currently on 4 L. Family's concern for hypoxia at home. She was on 4 L 96% with no evidence of respiratory distress. Patient cardiac work-up unremarkable. No evidence of retained fluid in the lower extremities. She states she is feels weak fatigued tired since Wednesday. Lab work showed normal white blood count. COVID influenza negative. She is afebrile. Chest x-ray was unremarkable. Patient appears to be acute kidney injury likely secondary to diuretics. Was given 1 L of fluid here. Due to the acute kidney injury and her current complaints with a possible associated UTI with urinalysis patient will be admitted to Dr. Lao for IV fluids, obs ervation. Patient agrees with this plan of action. Patient is a full code. Family showed up after admission. The aide stated that her oxygen level was in the 80% at home. On arrival she was 97% on her 4 L. According to family her creatinine on Wednesday was 2.86 which appears to be improving some. Patient does have hypochloremia and a low potassium which she may have some form of dehydration as she decreased her oral intake with diuretic. Patient is asymptomatic. Last creatinine stable compared to was September 2020 which was near 1. We will try small amount of fluids IV at 125 mils per hour to try to hydrate and without fluid overload. Continue with oral potassium Impression Primary Impression: MARIKA (acute kidney injury) Additional Impression: UTI (urinary tract infection) Disposition: ADMITTED INPATIENT Condition: Stable Admissions Decision to Admit Reason: Admit from ER (General) Decision to Admit/Date: Oct 14, 2021 Time/Decision to Admit Time: 13:55 Departure-Patient Inst. Referrals: DANIELLA LAO MD (PCP/Family) Primary Care Physician DENVER OVIEDO Oct 14, 2021 12:33
[2021-10-14 12:51] LABS: BASOPHILS # (AUTO) 0.1 10^3/uL (0.0-0.1); BASOPHILS % (AUTO) 1 % (0-10); EOSINOPHILS # (AUTO) 0.1 10^3/uL (0.0-0.3); EOSINOPHILS % (AUTO) 1 % (0-10); HEMATOCRIT 36 % (35-52); HEMOGLOBIN 11.5 g/dL (11.5-16.0); LYMPHOCYTES # (AUTO) 1.6 10^3/uL (1.0-4.0); LYMPHOCYTES % (AUTO) 28 % (12-44); MEAN CORPUSCULAR HEMOGLOBIN 26 pg (25-34); MEAN CORPUSCULAR HGB CONC 32 g/dL (32-36); MEAN CORPUSCULAR VOLUME 83 fL (80-99); MEAN PLATELET VOLUME 9.9 fL (9.0-12.2); MONOCYTES # (AUTO) 0.3 10^3/uL (0.0-1.0); MONOCYTES % (AUTO) 5 % (0-12); NEUTROPHILS # (AUTO) 3.7 10^3/uL (1.8-7.8); NEUTROPHILS % (AUTO) 64 % (42-75); PLATELET COUNT 243 10^3/uL (130-400); WHITE BLOOD COUNT 5.8 10^3/uL (4.3-11.0)
[2021-10-14 13:01] LABS: ALBUMIN 4.3 GM/DL (3.2-4.5); POTASSIUM 3.1 MMOL/L (3.6-5.0)
[2021-10-14 13:02] LABS: CALCIUM 9.8 MG/DL (8.5-10.1)
[2021-10-14 13:03] LABS: TOTAL PROTEIN 7.4 GM/DL (6.4-8.2)
[2021-10-14 13:05] LABS: BILIRUBIN,TOTAL 0.6 MG/DL (0.1-1.0)
[2021-10-14 13:07] LABS: CREATININE SERUM 2.36 MG/DL (0.60-1.30)
[2021-10-14 13:10] LABS: MAGNESIUM 1.7 MG/DL (1.6-2.4)
[2021-10-14 13:11] LABS: LIPASE 36 U/L (8-78)
[2021-10-14 13:28] LABS: BILIRUBIN,URINE NEGATIVE (NEGATIVE); CLARITY,URINE CLEAR; COLOR,URINE YELLOW; GLUCOSE, URINE (UA) NEGATIVE (NEGATIVE); KETONES,URINE NEGATIVE (NEGATIVE); LEUKOCYTE ESTERASE ,URINE 2+ (NEGATIVE); NITRITE,URINE NEGATIVE (NEGATIVE); PROTEIN,URINE NEGATIVE (NEGATIVE)
--- NOTE | 2021-10-14 13:36 | Diagnostic Imaging Report ---
INDICATION: Fatigue and poor appetite. TIME OF EXAM: 01:32 p.m. COMPARISON: Correlation is made with prior chest from 10/09/2020. FINDINGS: The heart size is normal. The pulmonary vascularity is unremarkable. The lungs are clear. No infiltrate, effusion or pneumothorax is detected. IMPRESSION: No acute cardiopulmonary process is detected. Dictated by: Dictated on workstation # [id number]
[2021-10-14 13:41] LABS: BACTERIA,URINE NEGATIVE /HPF; RBC,URINE 0-2 /HPF; SQUAMOUS EPITHELIAL CELL,UR RARE /HPF
[2021-10-14] MEDS ORDERED: NS IV 1000 ML 1,000 ML IV STA (13:52)
[2021-10-14] MEDS ORDERED: cefTRIAXone 1 GM PRE-MIX 50 ML IV STA (13:52)
[2021-10-14] MEDS ORDERED: KCL 20 MEQ TAB (K-DUR) PO ONE (14:00)
[2021-10-14] MEDS ORDERED: ACETAMINOPHEN 500 MG TAB (TYLENOL) PO PRN (15:00)
[2021-10-14] MEDS ORDERED: NS IV 1000 ML 1,000 ML IV ONE (15:00)
[2021-10-14] MEDS ORDERED: ONDANSETRON 4 MG/2 ML (SDV) Z0FRAN IV PRN (15:00)
[2021-10-14 15:55] VITALS: BP 117/75
--- NOTE | 2021-10-14 16:02 | Occupational Therapy Eval ---
OT Evaluation-General/PLF Medical Diagnosis Admission Date Oct 14, 2021 at 13:25 Medical Diagnosis: UTI, MARIKA Onset Date: Oct 14, 2021 Therapy Diagnosis Therapy Diagnosis: reduced endurance Height/Weight Height (Feet): 5 Height (Inches): 5.00 Weight (Pounds): 221 Weight (Ounces): 3.2 Precautions Precautions/Isolations: Fall Prevention, Standard Precautions Referral Physician: Tashia Referral Reason: Evaluation/Treatment Medical History Pertinent Medical History: COPD, HTN Additional Medical History Chronic kidney disease, stage III Current History Pt presents to ER with increased lethargy, weakness, and difficulty walking. Per patient, she lives alone in a single story home (2 steps from kitchen into living room). She owns a walker, cane, and w/c but was not using prior to arrival. She reports bathroom is handicap accessible. Pt was indep with adls and iadls prior to admission. Reviewed History: Yes Social History Home: Single Level Current Living Status: Alone Entry Into Home: Stairs With Railing Steps Into Home: 4 ADL-Prior Level of Function SCALE: Activities may be completed with or without assistive devices. 1-Qgnkpqkrrg-gktycpf completes the activity by him/herself with no assistance from a helper. 5-Set-up or Clean-up Assistance-helper sets up or cleans up; patient completes activity. [place] assists only prior to or following the activity. 4-Supervision or Touching Assistance-helper provides verbal cues and/or touching/steadying and/or contact guard assistance as patient completes activity. Assistance may be provided throughout the activity or intermittently. 3-Partial/Moderate Assistance-helper does LESS THAN HALF the effort. [place] lifts, holds or supports trunk or limbs, but provides less than half the effort. 2-Substantial/Maximal Assistance-helper does MORE THAN HALF the effort. [place] lifts or holds trunk or limbs and provides more than half the effort. 4-Vriaezkms-agderk does ALL the effort. Patient does none of the effort to complete the activity. Or, the assistance of 2 or more helpers is required for the patient to complete the activity. If activity was not attempted, code reason: 7-Patient Refused. 9-Not Applicable-not attempted and the patient did not perform the activity before the current illness, exacerbation or injury. 10-Not Attempted due to Environmental Limitations-(lack of equipment, weather restraints, etc.). 88-Not Attempted due to Medical Conditions or Safety Concerns. Self Care: Independent Functional Cognition: Independent DME/Equipment: Bath Chair, Grab Bars, Shower Drive Self: Yes OT Current Status Subjective Pt reports chronic sciatic pain. Appearance Pt returned to supine in bed, all needs within reach, family in room at therapy departure. Mental Status/Objective Patient Orientation: Person, Place, Situation Attachments: IV, Oxygen (4L) Current Glasses/Contacts: Yes Hearing Aids: No Dentures/Partials: Yes Hand Dominance: Right Upper Extremity ROM WNL, reports old rotator cuff injury on L but still able to complete to full range Upper Extremity Strength L shoulder: 3/5 all other joints, WNL ADL-Treatment Eating (QC): 6 Oral Hygiene (QC): 6 (per clinical judgment) Lower Body Dressing (QC): 4 On/Off Footwear (QC): 5 Toileting Hygiene (QC): 4 Supine<>sit: SBA. While sitting EOB, pt able to don/doff bilateral socks without assistance. "I couldn't do this last week because I was so bloated (pt was recently taking diuretic for fluid retention)." She stood independently and ambulated >300 feet, no AD. SBA for safety and management of IV pole. With fatigue, pt becomes slightly unsteady but does not lose balance. OT recommends use of walker until balance/strength improves. Education OT Patient Education: Energy conservation, Purpose of tx/functional activities, Safety issues Teaching Recipient: Patient Teaching Methods: Discussion Response to Teaching: Verbalize Understanding, Return Demonstration OT [employer] Goals Snf Goals 1=Demonstrate adherence to instructed precautions during ADL tasks. 2=Patient will verbalize/demonstrate understanding of assistive devices/modifications for ADL. 3=Patient will improve strength/tolerance for activity to enable patient to perform ADL's. OT Education/Plan Problem List/Assessment Assessment: No Skilled OT Needs ID'd Discharge Recommendations Plan/Recommendations: Discontinue OT Therapy Discharge Recommendati: Home & Family Treatment Plan/Plan of Care Treatment,Training & Education: Yes Patient would benefit from OT for education, treatment and training to promote independence in ADL's, mobility, safety and/or upper extremity function for ADL's. Plan of Care: ADL Retraining, Functional Mobility Treatment Duration: Oct 14, 2021 Frequency: 1 time per week Estimated Hrs Per Day: .25 hour per day Agreement: Yes Rehab Potential: Good Time/GCodes Start Time: 15:31 Stop Time: 15:54 Total Time Billed (hr/min): 23 Billed Treatment Time 1 visit EVL (10 min) FA (13 min) Angelika Molina OT Oct 14, 2021 16:02
--- NOTE | 2021-10-14 16:03 | Physical Therapy Evaluation ---
PT Evaluation-General Medical Diagnosis Admission Date Oct 14, 2021 at 13:25 Medical Diagnosis: UTI and Acute on Chronic kidney injury Onset Date: Oct 10, 2021 Therapy Diagnosis Therapy Diagnosis: Gait deficit Height/Weight Height (Feet): 5 Height (Inches): 5.00 Weight (Pounds): 221 Weight (Ounces): 3.2 Precautions Precautions/Isolations: Fall Prevention, Standard Precautions Weight Bear Status Right Lower Extremity: Right Full Weight Bearing Left Lower Extremity: Left Full Weight Bearing Referral Physician: Dr. Lao Reason for Referral: Evaluation/Treatment, Strengthening Social History Home: Multilevel Current Living Status: Alone Entry Into Home: Stairs With Railing PT Steps Into Home: 5 PT Steps Inside Home: 3 Prior Prior Level of Function SCALE: Activities may be completed with or without assistive devices. 4-Drpfotvodg-henzzmv completes the activity by him/herself with no assistance from a helper. 5-Set-up or Clean-up Assistance-helper sets up or cleans up; patient completes activity. [place] assists only prior to or following the activity. 4-Supervision or Touching Assistance-helper provides verbal cues and/or touching/steadying and/or contact guard assistance as patient completes activity. Assistance may be provided throughout the activity or intermittently. 3-Partial/Moderate Assistance-helper does LESS THAN HALF the effort. [place] lifts, holds or supports trunk or limbs, but provides less than half the effort. 2-Substantial/Maximal Assistance-helper does MORE THAN HALF the effort. [place] lifts or holds trunk or limbs and provides more than half the effort. 2-Xbhdpptfm-dpdgsn does ALL the effort. Patient does none of the effort to complete the activity. Or, the assistance of 2 or more helpers is required for the patient to complete the activity. If activity was not attempted, code reason: 7-Patient Refused. 9-Not Applicable-not attempted and the patient did not perform the activity before the current illness, exacerbation or injury. 10-Not Attempted due to Environmental Limitations-(lack of equipment, weather restraints, etc.). 88-Not Attempted due to Medical Conditions or Safety Concerns. Bed Mobility: 6 Transfers (B,C,W/C): 6 Gait: 6 Stairs: 6 Indoor Mobility (Ambulation): Independent Stairs: Independent Prior Devices Use: None Prior Device Use: Has a FWW and cane at home PT Evaluation-Current Subjective Patient lying supine in bed upon PT arrival, agreeable to treatment. Reports she has been dizzy but no pain at this time. Objective Patient Orientation: Person, Place, Time, Situation Attachments: Oxygen, IV ROM/Strength ROM Lower Extremities WFLs bilaterally all planes Strength Lower Extremities 4/5 grossly Sensory Vision: Functional Hearing: Functional Sensation Right Lower Extremit: Intact Sensation Left Lower Extremity: Intact Transfers Roll Left to Right (QC): 6 Sit to Lying (QC): 6 Lying to Sitting/Side of Bed(Q: 6 Sit to Stand (QC): 4 Chair/Aiz-le-Wfmcy Xfer(QC): 4 Gait Does the Patient Walk?: Yes Mode of Locomotion: Walk Anticipated Mode of Locomotion: Walk Walk 10 feet (QC): 4 Walk 50 ft with 2 Turns(QC): 4 Walk 150 ft (QC): 4 Distance: 300 Gait Assistive Device: None Comments/Gait Description patient unsteady at times. Tends to veer to the left and crosses midline with each LE at various times. May benefit from use of FWW for short period of time. Balance Sitting Static: Normal Sitting Dynamic: Normal Standing Static: Good Standing Dynamic: Fair Assessment/Needs Patient tolerated treatment well. Performs all bed mobility with [place] and all transfers with CGA. Patient ambulates 300 feet with no AD, with CGA and verbal cues for safety, progression and balance. Patient unsteady at times. T ends to veer to the left and crosses midline with each LE at various times. May benefit from use of FWW for short period of time. Patient in bed post treatment with all needs met, call light in reach, nursing notified and family in the room Rehab Potential: Good PT Psychiatric Technician Goals Psychiatric Technician Goals PT Skilled Nursing Goals Time Frame: Oct 24, 2021 Sit to Stand (QC): 6 Chair/Mos-yz-Siscb Xfer(QC): 6 Toilet Transfer (QC): 6 Car Transfer (QC): 6 Does the Patient Walk: Yes Walk 10 feet (QC): 6 Walk 50ft with 2 Turns (QC): 6 Walk 150 ft (QC): 6 1 Step (curb) (QC): 6 4 Steps (QC): 6 12 Steps (QC): 6 PT Plan Problem List Problem List: Activity Tolerance, Functional Strength, Safety, Balance, Gait, Transfer, Bed Mobility, ROM Treatment/Plan Treatment Plan: Continue Plan of Care Treatment Plan: Bed Mobility, Education, Functional Activity Nelda, Functional Strength, Group Therapy, Gait, Safety, Therapeutic Exercise, Transfers Treatment Duration: Oct 25, 2021 Frequency: 6 times per week Estimated Hrs Per Day: .25 hour per day Patient and/or Family Agrees t: Yes Safety Risks/Education Patient Education: Gait Training Teaching Recipient: Patient Teaching Methods: Demonstration, Discussion Response to Teaching: Verbalize Understanding, Return Demonstration Time/GCodes Time In: 1538 Time Out: 1558 Total Billed Treatment Time: 20 Total Billed Treatment Visit, LAURNE PRATHER PT Oct 14, 2021 16:03
--- NOTE | 2021-10-14 17:16 | History & Physical ---
History of Present Illness History of Present Illness Reason for visit/HPI Pt is a 71 y/o female who is known to me from clinic. Constance presented to the hospital after having quite a bit of shortness of breath and progressive fatigue. 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 Constance reports that on Wednesday she was feeling progressively weak, and finally today her DTR insisted on calling my clinic where they were instructed to go to the ER (report was that Poonam's oxygen level was 82% on 4 L NC). Date of Admission Oct 14, 2021 at 13:25 Date Seen by a Provider: Oct 14, 2021 Time Seen by a Provider: 16:40 Attending Physician Daniella Lao MD Admitting Physician Admitting Physician: Daniella Lao MD Attending Physician: Daniella Lao MD Consult Allergies and Home Medications Allergies Coded Allergies: No Known Drug Allergies (Unverified , 10/14/21) Patient Home Medication List Home Medication List Reviewed: Yes Alprazolam (Alprazolam) 0.5 Mg Tablet, 0.25 MG PO HS, (Reported) Entered as Reported by: TRU HANEY on 10/04/20 153 Amlodipine Besylate (Amlodipine Besylate) 5 Mg Tablet, 5 MG PO HS, (Reported) Entered as Reported by: GARCIA JEFFERS on 11/04/18 154 Aspirin (Aspirin) 325 Mg Tablet, 325 MG PO DAILY, (Reported) Entered as Reported by: GARCIA JEFFERS on 11/04/18 154 Atorvastatin Calcium (Atorvastatin Calcium) 10 Mg Tablet, 10 MG PO HS, (Reported) Entered as Reported by: GARCIA JEFFERS on 11/04/18 154 Duloxetine HCl (Duloxetine HCl) 60 Mg Capsule.dr, 60 MG PO DAILY, (Reported) Entered as Reported by: GARCIA JEFFERS on 11/04/18 154 Furosemide (Furosemide) 40 Mg Tablet, 40 MG PO DAILY, (Reported) Entered as Reported by: GARCIA JEFFERS on 11/04/18 154 Last Action: Held Hydrocodone/Acetaminophen (Hydrocodone-Acetamin 7.5-325) 1 Each Tablet, 1 EA PO Q8H PRN for PAIN-MODERATE (5-7), (Reported) Entered as Reported by: TRU HANEY on 10/04/20 153 Labetalol HCl (Labetalol HCl) 200 Mg Tablet, 400 MG PO BID, (Reported) Entered as Reported by: GARCIA JEFFERS on 11/04/18 154 Magnesium Oxide (Magnesium Oxide) 250 Mg Tablet, 250 MG PO DAILY, (Reported) Entered as Reported by: TRU HANEY on 10/04/20 153 Melatonin (Melatonin) 10 Mg Tablet, 10 MG PO HS, (Reported) Entered as Reported by: TRU HANEY on 10/04/20 153 Montelukast Sodium (Montelukast Sodium) 10 Mg Tablet, 10 MG PO HS, (Reported) Entered as Reported by: GARCIA JEFFERS on 11/04/181544 Nystatin (Nystatin) 100,000 Unit/1 Ml Oral.susp, 5 ML PO Q6HR Prescribed by: DEMARCUS CALLEJAS on 10/11/20 100 Pantoprazole Sodium (Pantoprazole Sodium) 40 Mg Tablet.dr, 40 MG PO DAILY, (Reported) Entered as Reported by: TRU HANEY on 10/04/201532 Potassium Chloride (Potassium Chloride) 20 Meq Tablet.er, 20 MEQ PO BID Prescribed by: DEMARCUS CALLEJAS on 10/11/20 100 Pregabalin (Pregabalin) 50 Mg Capsule, 50 MG PO TID, (Reported) Entered as Reported by: TRU HANEY on 10/04/201532 Ropinirole HCl (Ropinirole HCl) 1 Mg Tablet, 1 MG PO HS, (Reported) Entered as Reported by: GARCIA JEFFERS on 11/04/181544 Sucralfate (Sucralfate) 1 Gm Tablet, 1 GM PO BID PRN for ULCER FLARE, (Reported) Entered as Reported by: GARCIA JEFFERS on 11/04/181544 Past Xhhuhtb-Kpajmh-Crkwme Hx Patient Social History Marrital Status: Living Status: lives at home alone Employed/Student: retired Tobacco Use?: No Use of E-Cig and/or Vaping dev: No Substance use?: No Alcohol Use?: No Pt feels they are or have been: No Immunizations Up To Date Date of Influenza Vaccine: Dec 27, 2010 First/Initial COVID19 Vaccinat: no Second COVID19 Vaccination Ok: no Date of Pneumonia Vaccine: Mar 07, 2018 Seasonal Allergies Seasonal Allergies: No Current Status status: No status: No Advance Directives: Yes Advance Directive Location: Copy from prev record Communicates: Verbally Primary Language: French Preferred Spoken Language: French Is interpretation needed?: No Sensory deficits: Vision impairment Implanted or Applied Medical D: Orthopedic hardware Past Medical History Surgeries: Appendectomy, Section, Gallbladder, Hysterectomy, Joint Replacement, Orthopedic High Cholesterol, 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 DAWSON; LEFT KNEE REPLACED BY DR. BRAND -RIGHT SHOULDER REPLACEMENT Review of Systems Constitutional: No chills, No diaphoresis, No fever; malaise, weakness EENTM: No hoarseness, No throat pain Respiratory: No cough; dyspnea on exertion, short of breath Cardiovascular: No chest pain; edema; No palpitations Gastrointestinal: No abdominal pain, No nausea, No vomiting Genitourinary: No dysuria; frequency, incontinence Musculoskeletal: back pain, muscle weakness Skin: no symptoms reported Psychiatric/Neurological: Anxiety, Depressed All Other Systems Reviewed Negative Unless Noted: Yes Physical Exam Vital Signs Vital Signs - First Documented 10/14/21 12:20 Temp 36.6 Pulse 66 Resp 20 B/P (MAP) 138/79 (98) Capillary Refill : Less Than 3 Seconds Height, Weight, BMI Height: 5'5.00" Weight: 221lbs. 3.2oz. 100.495084kg; 38.33 BMI Method:Stated General Appearance: No Apparent Distress, WD/WN HEENT: PERRL/EOMI, Pharynx Normal Neck: Full Range of Motion, Normal Inspection, Non Tender, Supple Respiratory: Chest Non Tender, Lungs Clear, Normal Breath Sounds, No Accessory Muscle Use, No Respiratory Distress Cardiovascular: Regular Rate, Rhythm, Normal Peripheral Pulses Gastrointestinal: Normal Bowel Sounds, No Organomegaly, No Pulsatile Mass, Non Tender, Soft Rectal: Deferred Back: Normal Inspection Extremity: Normal Capillary Refill, Non Tender, No Calf Tenderness, Pedal Edema (trace) Neurologic/Psychiatric: Alert, Oriented x3, No Motor/Sensory Deficits, Normal Mood/Affect Skin: Normal Color, Warm/Dry Lymphatic: No Adenopathy Assessment/Plan Assessment and Plan Acute on Chronic Renal failure stage 3b with acute worsening to stage 4 Hypokalemia Medication induced mild dehydration Chronic Hypertensive heart disease Chronic Depression Peripheral neuropathy Restless Leg syndrome Acute on Chronic Renal failure stage 3b with acute worsening to stage 4 - hold diuretics at this time - - decrease from 125mL/hr to 75mL per hour in order to not overwhelm pt with fluids - monitor repeat labs in morning. Hypokalemia - replaced in the ER - monitor chem panel Medication induced mild dehydration - fluids with IV, monitor labs. Chronic Hypertensive heart disease - bp low on admission - wait on resumption of her home medication regimen Chronic Depression with anxiety - hold cymbalta at this time - will resume on discharge if sent home tomorrow morning. Peripheral neuropathy with Restless Leg syndrome - resume home medications once reconciled. dvt prophylaxis with scd's - hold on lovenox at this time. gi prophylaxis with ppi therapy Admission Diagnosis Acute on Chronic Renal failure stage 3b with acute worsening to stage 4 Hypokalemia Medication induced mild dehydration Chronic Hypertensive heart disease Chronic Depression Peripheral neuropathy Restless Leg syndrome Admission Status: Observation DANIELLA LAO MD Oct 14, 2021 17:16
[2021-10-14] MEDS ORDERED: PATIENT MAY USE OWN MEDS, ALL MC SCH (17:30)
[2021-10-14] MEDS ORDERED: PANTOPRAZOLE 40 MG (PROTONIX) TAB PO NR (18:00)
[2021-10-14] MEDS: NS IV 1000 ML 1,000 ML IV SCH (18:02)
[2021-10-14] MEDS ORDERED: ASPI-999 PO (18:19)
[2021-10-14] MEDS ORDERED: ERGO1250 PO (18:19)
[2021-10-14] MEDS ORDERED: AMLO-250 PO (18:19)
[2021-10-14] MEDS ORDERED: TRAM50TA3 PO (18:19)
[2021-10-14] MEDS ORDERED: LOSA100T57 PO (18:19)
[2021-10-14 20:17] VITALS: BP 122/72
[2021-10-14 23:51] VITALS: BP 113/69
[2021-10-15] MEDS: NS IV 1000 ML 1,000 ML IV SCH (02:41)
[2021-10-15 03:36] VITALS: BP 103/62
[2021-10-15 07:21] LABS: BASOPHILS % (AUTO) 1 % (0-10); EOSINOPHILS # (AUTO) 0.1 10^3/uL (0.0-0.3); EOSINOPHILS % (AUTO) 2 % (0-10); HEMATOCRIT 32 % (35-52); HEMOGLOBIN 10.2 g/dL (11.5-16.0); LYMPHOCYTES # (AUTO) 1.6 10^3/uL (1.0-4.0); LYMPHOCYTES % (AUTO) 32 % (12-44); MEAN CORPUSCULAR HEMOGLOBIN 27 pg (25-34); MEAN CORPUSCULAR HGB CONC 32 g/dL (32-36); MEAN CORPUSCULAR VOLUME 83 fL (80-99); MEAN PLATELET VOLUME 10.2 fL (9.0-12.2); MONOCYTES # (AUTO) 0.3 10^3/uL (0.0-1.0); MONOCYTES % (AUTO) 6 % (0-12); NEUTROPHILS # (AUTO) 2.9 10^3/uL (1.8-7.8); NEUTROPHILS % (AUTO) 59 % (42-75); PLATELET COUNT 204 10^3/uL (130-400)
[2021-10-15 07:34] LABS: POTASSIUM 3.1 MMOL/L (3.6-5.0)
[2021-10-15 07:35] LABS: CALCIUM 8.9 MG/DL (8.5-10.1)
[2021-10-15 07:39] LABS: CREATININE SERUM 1.64 MG/DL (0.60-1.30)
[2021-10-15 07:41] LABS: MAGNESIUM 1.7 MG/DL (1.6-2.4)
--- NOTE | 2021-10-15 07:51 | Progress Note ---
Subjective Subjective Date Seen by Provider: Oct 15, 2021 Time Seen by Provider: 07:21 Poonam Feldman is a 71y/o F who is being seen for follow up due to acute on chronic renal failure. She was awake and alert when I entered the room. Pt reports that she is doing better this morning. Says that she has been able to urinate w/o any issues. States that she does feel like her abdomen is more distended this AM than it was yesterday. Complaining of left shoulder pain, says the pain is from a fall she had over the weekend. Rates the pain as an 8/10. Denies any SOB or cough. Review of Systems General: No Chills, No Other (fever) HEENT: No Head Aches, No Visual Changes Pulmonary: No Dyspnea, No Cough Cardiovascular: No: Chest Pain, Palpitations Gastrointestinal: No: Nausea, Vomiting, Abdominal Pain Genitourinary: No Dysuria, No Frequency Musculoskeletal: shoulder pain (left); No: back pain Neurological: No: Weakness, Numbness All Other Systems Reviewed All Other Systems Reviewed: Yes Objective Exam Vital Signs Vital Signs Date Time Temp Pulse Resp B/P (MAP) Pulse Ox O2 Delivery O2 Flow Rate FiO2 10/15/21 03:36 36.2 60 18 103/62 (76) 96 Nasal Cannula 4.00 10/15/21 01:00 61 10/14/21 23:51 36.2 65 17 113/69 (84) 97 Nasal Cannula 4.00 10/14/21 20:59 97 Nasal Cannula 4.00 10/14/21 20:17 36.3 62 17 122/72 (89) 98 Nasal Cannula 4.00 10/14/21 19:00 63 10/14/21 15:55 36.1 59 16 117/75 (89) 98 Nasal Cannula 4.00 10/14/21 15:26 98 Nasal Cannula 4.00 10/14/21 15:19 67 14 114/62 99 99.00 10/14/21 13:36 63 10/14/21 12:20 36.6 66 20 138/79 (98) 99 Nasal Cannula 4.00 10/14/21 12:20 Nasal Cannula 4.00 4.00 10/14/21 12:20 98 Nasal Cannula 4.00 I & O 10/15/21 07:00 Intake Total 1200 ml Output Total 1800 ml Balance -600 ml General Appearance: No Apparent Distress, Obese Eyes: Bilateral Eye Normal Inspection, Bilateral Eye PERRL, Bilateral Eye EOMI HEENT: PERRL/EOMI; No Photophobia Neck: Full Range of Motion, Normal Inspection, Non Tender, Supple Respiratory: Chest Non Tender, Lungs Clear, Normal Breath Sounds, No Accessory Muscle Use, No Respiratory Distress Cardiovascular: Regular Rate, Rhythm, No Edema, No Gallop, No JVD, No Murmur, Normal Peripheral Pulses Gastrointestinal: No Pulsatile Mass, Non Tender, Soft, Distended Rectal: Deferred Extremity: Normal Capillary Refill, Calf Tenderness (b/l calves and feet tender ), Pedal Edema Neurologic/Psychiatric: Alert, Oriented x3, No Motor/Sensory Deficits, Normal Mood/Affect Skin: Normal Color, Warm/Dry Lymphatic: No Adenopathy Results Lab Laboratory Tests 10/14/21 12:35: White Blood Count 5.8, Red Blood Count 4.37, Hemoglobin 11.5, Hematocrit 36, Mean Corpuscular Volume 83, Mean Corpuscular Hemoglobin 26, Mean Corpuscular Hemoglobin Concent 32, Red Cell Distribution Width 14.0, Platelet Count 243, Mean Platelet Volume 9.9, Immature Granulocyte % (Auto) 1, Neutrophils (%) (Auto) 64, Lymphocytes (%) (Auto) 28, Monocytes (%) (Auto) 5, Eosinophils (%) (Auto) 1, Basophils (%) (Auto) 1, Neutrophils # (Auto) 3.7, Lymphocytes # (Auto) 1.6, Monocytes # (Auto) 0.3, Eosinophils # (Auto) 0.1, Basophils # (Auto) 0.1, Immature Granulocyte # (Auto) 0.0, Prothrombin Time 14.0, INR Comment 1.0, Activated Partial Thromboplast Time 29, Sodium Level 137, Potassium Level 3.1L, Chloride Level 96L, Carbon Dioxide Level 27, Anion Gap 14, Blood Urea Nitrogen 40H, Creatinine 2.36H, Estimat Glomerular Filtration Rate 21, BUN/Creatinine Ratio 17, Glucose Level 159H, Calcium Level 9.8, Corrected Calcium 9.6, Magnesium Level 1.7, Total Bilirubin 0.6, Aspartate Amino Transf (AST/SGOT) 19, Alanine Aminotransferase (ALT/SGPT) 13, Alkaline Phosphatase 85, Myoglobin 140.7H, Troponin I < 0.028, B-Type Natriuretic Peptide 57.6, Total Protein 7.4, Albumin 4.3, Lipase 36, Influenza Type A (RT-PCR) Not Detected, Influenza Type B (RT-PCR) Not Detected, SARS-CoV-2 RNA (RT-PCR) Not Detected 10/14/21 13:12: Urine Color YELLOW, Urine Clarity CLEAR, Urine pH 6.0, Urine Specific Ada 1 .010L, Urine Protein NEGATIVE, Urine Glucose (UA) NEGATIVE, Urine Ketones NEGATIVE, Urine Nitrite NEGATIVE, Urine Bilirubin NEGATIVE, Urine Urobilinogen 0.2, Urine Leukocyte Esterase 2+H, Urine RBC (Auto) TRACE-IH, Urine RBC 0-2, Urine WBC 5-10H, Urine Squamous Epithelial Cells RARE, Urine Crystals NONE, Urine Bacteria NEGATIVE, Urine Casts NONE, Urine Mucus NEGATIVE, Urine Culture Indicated YES 10/15/21 07:00: White Blood Count 5.0, Red Blood Count 3.83, Hemoglobin 10.2L, Hematocrit 32L, Mean Corpuscular Volume 83, Mean Corpuscular Hemoglobin 27, Mean Corpuscular Hemoglobin Concent 32, Red Cell Distribution Width 14.0, Platelet Count 204, Mean Platelet Volume 10.2, Immature Granulocyte % (Auto) 0, Neutrophils (%) (Auto) 59, Lymphocytes (%) (Auto) 32, Monocytes (%) (Auto) 6, Eosinophils (%) (Auto) 2, Basophils (%) (Auto) 1, Neutrophils # (Auto) 2.9, Lymphocytes # (Auto) 1.6, Monocytes # (Auto) 0.3, Eosinophils # (Auto) 0.1, Basophils # (Auto) 0.0, Immature Granulocyte # (Auto) 0.0, Sodium Level 141, Potassium Level 3.1L, Chloride Level 102, Carbon Dioxide Level 25, Anion Gap 14, Blood Urea Nitrogen 33H, Creatinine 1.64H, Estimat Glomerular Filtration Rate 33, BUN/Creatinine Ratio 20, Glucose Level 111H, Calcium Level 8.9, Magnesium Level 1.7 Assessment/Plan Assessment/Plan Assessment and Plan Acute on Chronic Renal failure stage 3b with acute worsening to stage 4 Hypokalemia Medication induced mild dehydration Chronic Hypertensive heart disease Chronic Depression Peripheral neuropathy Restless Leg syndrome Acute on Chronic Renal failure stage 3b with acute worsening to stage 4 - hold diuretics at this time - BUN and creatinine improved today from yesterday - decreased from 125mL/hr to 75mL per hour yesterday in order to not overwhelm pt with fluids - considered decreasing or stopping IV fluids today due to pedal edema and slight abdominal distention Hypokalemia - replaced in the ER - potassium of 3.1 today, same as yesterday - potassium supplemental to be done today Medication induced mild dehydration - fluids with IV, monitor labs. Chronic Hypertensive heart disease - bp low on admission, 103/62 today - wait on resumption of her home medication regimen Chronic Depression with anxiety - hold cymbalta at this time - will resume on discharge if sent home tomorrow morning. Peripheral neuropathy with Restless Leg syndrome - home medications have been ordered dvt prophylaxis with scd's - hold on lovenox at this time. gi prophylaxis with ppi therapy TESSIE GIBSON Oct 15, 2021 07:51
[2021-10-15 07:59] VITALS: BP 122/69
[2021-10-15] MEDS ORDERED: PREGABALIN 50 MG (LYRICA) CAP PO SCH (09:00)
[2021-10-15] MEDS ORDERED: MONT-40 PO (09:16)
[2021-10-15] MEDS ORDERED: FURO40TA4 PO (09:17)
--- NOTE | 2021-10-15 09:19 | Discharge Inst-Simple/Standard ---
Discharge Inst-Standard Reconcile Patient Problems Problems Reviewed?: Yes Patient Instructions/Follow Up Plan of Care/Instructions/FU: contact nephrology to see what dose of diuretic they want you to take call [facility] to have the shoulder eval set up with eve call office for an appt with [facility] Activity as Tolerated: Yes Discharge Diet: Other Diet (renal diet) Health Concerns: hypertension renal failure dehydration generalized weakness Return to The [facility] For: call the office for any acute concerns, worsening symptoms of dehydration or other lifethreatening illness or injury Medication List: Active Scripts Active Furosemide 40 Mg Tablet 40 Mg PO DAILY pt to continue if behavioral consultant wants her to be on this medication - defer to nephrology Potassium Chloride 20 Meq Tablet.er 20 Meq PO BID Reported Losartan Potassium 100 Mg Tablet 100 Mg PO DAILY Tramadol HCl 50 Mg Tablet 100 Mg PO BID Take 2 tablets by mouth twice daily Amlodipine Besylate 5 Mg Tablet 2.5 Mg PO BID Take 1/2 tablet by mouth twice a day Vitamin D2 (Ergocalciferol (Vitamin D2)) 1,250 Mcg (16731 Unit) Capsule 1,250 Mcg PO WEEK Aspirin 81 Mg Tab.chew 81 Mg PO DAILY Melatonin 10 Mg Tablet 10 Mg PO HS Pantoprazole Sodium 40 Mg Tablet.dr 40 Mg PO DAILY Pregabalin 50 Mg Capsule 50 Mg PO TID Magnesium Oxide 250 Mg Tablet 250 Mg PO DAILY Labetalol HCl 200 Mg Tablet 400 Mg PO BID TAKES 2 (200MG) TABLETS Ropinirole HCl 1 Mg Tablet 1 Mg PO HS Duloxetine HCl 60 Mg Capsule.dr 60 Mg PO DAILY Atorvastatin Calcium 10 Mg Tablet 10 Mg PO HS Lab results: Laboratory Tests Test 10/14/21 12:35 10/14/21 13:12 10/15/21 07:00 Range/Units White Blood Count 5.8 5.0 4.3-11.0 10^3/uL Red Blood Count 4.37 3.83 3.80-5.11 10^6/uL Hemoglobin 11.5 10.2 L 11.5-16.0 g/dL Hematocrit 36 32 L 35-52 % Mean Corpuscular Volume 83 83 80-99 fL Mean Corpuscular Hemoglobin 26 27 25-34 pg Mean Corpuscular Hemoglobin Concent 32 32 32-36 g/dL Red Cell Distribution Width 14.0 14.0 10.0-14.5 % Platelet Count 243 204 130-400 10^3/uL Mean Platelet Volume 9.9 10.2 9.0-12.2 fL Immature Granulocyte % (Auto) 1 0 % Neutrophils (%) (Auto) 64 59 42-75 % Lymphocytes (%) (Auto) 28 32 12-44 % Monocytes (%) (Auto) 5 6 0-12 % Eosinophils (%) (Auto) 1 2 0-10 % Basophils (%) (Auto) 1 1 0-10 % Neutrophils # (Auto) 3.7 2.9 1.8-7.8 10^3/uL Lymphocytes # (Auto) 1.6 1.6 1.0-4.0 10^3/uL Monocytes # (Auto) 0.3 0.3 0.0-1.0 10^3/uL Eosinophils # (Auto) 0.1 0.1 0.0-0.3 10^3/uL Basophils # (Auto) 0.1 0.0 0.0-0.1 10^3/uL Immature Granulocyte # (Auto) 0.0 0.0 0.0-0.1 10^3/uL Prothrombin Time 14.0 12.2-14.7 SEC INR Comment 1.0 0.8-1.4 Activated Partial Thromboplast Time 29 24-35 SEC Sodium Level 137 141 135-145 MMOL/L Potassium Level 3.1 L 3.1 L 3.6-5.0 MMOL/L Chloride Level 96 L 102 98-107 MMOL/L Carbon Dioxide Level 27 25 21-32 MMOL/L Anion Gap 14 14 5-14 MMOL/L Blood Urea Nitrogen 40 H 33 H 7-18 MG/DL Creatinine 2.36 H 1.64 H 0.60-1.30 MG/DL Estimat Glomerular Filtration Rate 21 33 BUN/Creatinine Ratio 17 20 Glucose Level 159 H 111 H 70-105 MG/DL Calcium Level 9.8 8.9 8.5-10.1 MG/DL Corrected Calcium 9.6 8.5-10.1 MG/DL Magnesium Level 1.7 1.7 1.6-2.4 MG/DL Total Bilirubin 0.6 0.1-1.0 MG/DL Aspartate Amino Transf (AST/SGOT) 19 5-34 U/L Alanine Aminotransferase (ALT/SGPT) 13 0-55 U/L Alkaline Phosphatase 85 40-136 U/L Myoglobin 140.7 H 10.0-92.0 NG/ML Troponin I < 0.028 <0.028 NG/ML B-Type Natriuretic Peptide 57.6 <100.0 PG/ML Total Protein 7.4 6.4-8.2 GM/DL Albumin 4.3 3.2-4.5 GM/DL Lipase 36 8-78 U/L Influenza Type A (RT-PCR) Not Detected Not Detecte Influenza Type B (RT-PCR) Not Detected Not Detecte SARS-CoV-2 RNA (RT-PCR) Not Detected Not Detecte Urine Color YELLOW Urine Clarity CLEAR Urine pH 6.0 5-9 Urine Specific [place] 1.010 L 1.016-1.022 Urine Protein NEGATIVE NEGATIVE Urine Glucose (UA) NEGATIVE NEGATIVE Urine Ketones NEGATIVE NEGATIVE Urine Nitrite NEGATIVE NEGATIVE Urine Bilirubin NEGATIVE NEGATIVE Urine Urobilinogen 0.2 < = 1.0 MG/DL Urine Leukocyte Esterase 2+ H NEGATIVE Urine RBC (Auto) TRACE-I H NEGATIVE Urine RBC 0-2 /HPF Urine WBC 5-10 H /HPF Urine Squamous Epithelial Cells RARE /HPF Urine Crystals NONE /LPF Urine Bacteria NEGATIVE /HPF Urine Casts NONE /LPF Urine Mucus NEGATIVE /LPF Urine Culture Indicated YES My orders: Orders - DANIELLA VILLALPANDO MD Iv 1000 Ml (Sodium Chloride 0.9%) (10/14/21 15:00) Acetaminophen Tablet (Tylenol Tablet) (10/14/21 15:00) Ondansetron Injection (Zofran Injectio (10/14/21 15:00) Ceftriaxone 1 Gm Pre-Mix (Rocephin 1 Gm (10/15/21 14:00) Admission Order(Inpt,Obs,Sdc) (10/14/21 15:12) Code/Resuscitation (10/14/21 15:12) Telemetry (10/14/21 15:12) Vital Signs: Every 4 Hours (Or (10/14/21 15:12) Rt Request For Service (10/14/21 15:12) Activity As Ordered (10/14/21 15:12) Cbc With Automated Diff (10/15/21 05:00) Basic Metabolic Panel (10/15/21 05:00) Sodium 2g (2000 Mg) (10/14/21 Lunch) Ambulate 08,12,20 (10/14/21 15:12) Sequential Compression Device ONCE (10/14/21 15:12) Initiate Admission Nursing Pro .admission (10/14/21 15:12) Isolation Central Supply Req (10/14/21 15:12) Telemetry Nursing Assessment ( (10/14/21 15:12) Pt Evaluate/Treat Request (10/14/21 15:21) Request Ot Evaluate & Treat (10/14/21 15:21) Ns Iv 1000 Ml (Sodium Chloride 0.9%) (10/14/21 17:15) Magnesium (10/15/21 05:00) Patient May Use Own Meds, All (Patient M (10/14/21 17:30) Pantoprazole Tablet (Protonix Tablet) (10/14/21 18:00) Sequential Compression Device (10/14/21 17:30) Atorvastatin Tablet (Lipitor Tablet) (10/15/21 21:00) Melatonin Tablet (Melatonin Tablet) (10/15/21 21:00) Montelukast Tablet (Singulair Tablet) (10/15/21 21:00) Pregabalin Capsule (Lyrica Capsule) (10/15/21 09:00) Ropinirole Tablet (Requip Tablet) (10/15/21 21:00) Alprazolam Tablet (Xanax Tablet) (10/15/21 21:00) Tramadol Tablet (Ultram Tablet) (10/15/21 09:00) Patient Visit (10/14/21 ) Pt Eval Moderate Complexity (10/14/21 ) Potassium Chloride (Tablet) (K Dur Table (10/15/21 08:15) Attending Discharge Inpt/Inobs (10/15/21 09:11) DANIELLA VILLALPANDO MD Oct 15, 2021 09:19
[2021-10-15] MEDS ORDERED: LEVO500T81 PO (09:36)
--- NOTE | 2021-10-15 09:45 | Physical Therapy Daily Note ---
PT Daily Note-Current Subjective Pt in bed upon arrival and agrees to PT. Says she is feeling pretty good today and says she will go home today. Mental Status Patient Orientation: Person, Place, Time, Situation Attachments: Oxygen (4L), IV Transfers SCALE: Activities may be completed with or without assistive devices. 9-Yqkzkrzfhx-zhbnixj completes the activity by him/herself with no assistance from a helper. 5-Set-up or Clean-up Assistance-helper sets up or cleans up; patient completes activity. [place] assists only prior to or following the activity. 4-Supervision or Touching Assistance-helper provides verbal cues and/or touching/steadying and/or contact guard assistance as patient completes activity. Assistance may be provided throughout the activity or intermittently. 3-Partial/Moderate Assistance-helper does LESS THAN HALF the effort. [place] lifts, holds or supports trunk or limbs, but provides less than half the effort. 2-Substantial/Maximal Assistance-helper does MORE THAN HALF the effort. [place] lifts or holds trunk or limbs and provides more than half the effort. 7-Gguprpatf-tnlnzt does ALL the effort. Patient does none of the effort to complete the activity. Or, the assistance of 2 or more helpers is required for the patient to complete the activity. If activity was not attempted, code reason: 7-Patient Refused. 9-Not Applicable-not attempted and the patient did not perform the activity before the current illness, exacerbation or injury. 10-Not Attempted due to Environmental Limitations-(lack of equipment, weather restraints, etc.). 88-Not Attempted due to Medical Conditions or Safety Concerns. Sit to Lying (QC): 6 Lying to Sitting/Side of Bed(Q: 5 Sit to Stand (QC): 6 Weight Bearing Right Lower Extremity: Right Full Weight Bearing Left Lower Extremity: Left Full Weight Bearing Gait Training Does the Patient Walk?: Yes Distance: 300' Walk 10 feet (QC): 6 Walk 50 ft with 2 Turns(QC): 5 Walk 150 ft (QC): 5 Gait Persons Needed: 1 Amb very slowly and veers to L and needs cues in order to correct Treatments Pt TFs back to bed post treatment w/ all need mets and call light nearby. Assessment Current Status: Good Progress Pt able to amb 300' again this date. Pt required verbal cues in order for correct ambulation and to not cross midline to the (L). PT [place] Goals [place] Goals PT Half-Way Goals Time Frame: Oct 24, 2021 Sit to Stand (QC): 6 Chair/Siq-mr-Xspqs Xfer(QC): 6 Toilet Transfer (QC): 6 Car Transfer (QC): 6 Does the Patient Walk: Yes Walk 10 feet (QC): 6 Walk 50ft with 2 Turns (QC): 6 Walk 150 ft (QC): 6 1 Step (curb) (QC): 6 4 Steps (QC): 6 12 Steps (QC): 6 PT Plan Problem List Problem List: Activity Tolerance, Functional Strength Treatment/Plan Treatment Plan: Continue Plan of Care Treatment Plan: Bed Mobility, Education, Functional Activity Nelda, Functional Strength, Group Therapy, Gait, Safety, Therapeutic Exercise, Transfers Treatment Duration: Oct 25, 2021 Frequency: 6 times per week Estimated Hrs Per Day: .25 hour per day Patient and/or Family Agrees t: Yes Safety Risks/Education Patient Education: Gait Training, Correct Positioning Teaching Recipient: Patient Teaching Methods: Discussion Response to Teaching: Return Demonstration Time/GCodes Time In: 0845 Time Out: 09 Total Billed Treatment Time: 20 Total Billed Treatment 1, Ex THELMA 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
[2021-10-15] MEDS ORDERED: KCL 20 MEQ TAB (K-DUR) PO ONE (10:00)
[2021-10-15 11:35] VITALS: BP 124/60
[2021-10-15] MEDS ORDERED: cefTRIAXone 1 GM/50 ML (PRE-MIX) IV SCH (14:00)
[2021-10-15] MEDS ORDERED: AtorvaSTATin TABLET 10 MG TABLET PO SCH (21:00)
[2021-10-15] MEDS ORDERED: MELATONIN 10 MG TABLET PO SCH (21:00)
[2021-10-15] MEDS ORDERED: MONTELUKAST 10 MG (SINGULAIR) TAB PO SCH (21:00)
[2021-10-15] MEDS ORDERED: ALPRAZolam 0.5 MG (XANAX) TAB PO SCH (21:00)
[2021-10-15] MEDS ORDERED: rOPINIRole 1 MG (REQUIP) TABLET PO SCH (21:00)
== END 2021-10-15 12:48 | disposition home or self-care (01) ==
LOC: EDUNIT# 12:08 → ER 12:10 → 4TH 13:25
PROVIDERS: ADMIT Family Medicine; ATTEND Family Medicine
DX: N17.9 Acute kidney failure, unspecified (principal); N39.0 Urinary tract infection, site not specified; I13.10 Hypertensive heart and chronic kidney disease without heart failure, with stage 1 through stage 4 chronic kidney disease, or unspecified chronic kidney disease; N18.32 Chronic kidney disease, stage 3b; E87.6 Hypokalemia; E86.0 Dehydration; G62.9 Polyneuropathy, unspecified; G25.81 Restless legs syndrome; F41.8 Other specified anxiety disorders; Z79.82 Long term (current) use of aspirin
CPT/HCPCS: 36415; 71045; 80048; 80053; 81000; 83690; 83735; 83874; 83880; 84484; 85025; 85610; 85730; 87077; 87088; 87186; 87636; 93005; 93041; 94760

== ENCOUNTER → 2022-02-13 | Outpatient (CLI) | payer MEDICARE, OTHER ==
[~2022-02-13] MED LIST changes: +ASPI-999 PO; +ERGO1250 PO; +LABE200T10 PO; -LABE200T7 PO; +LEVO-55 PO
--- NOTE | 2022-02-13 11:59 | Diagnostic Imaging Report ---
Indication: Routine screening. Comparison is made with prior mammograms from 01/21/2021 and 09/15/2019. 2-D and 3-D bilateral screening mammography was performed with CAD. Both breasts are heterogeneously dense, limiting the sensitivity of mammography. The parenchymal pattern is stable. No mass or malignant-appearing microcalcifications are seen. Axillae are unremarkable. IMPRESSION: BI-RADS Category 1 No mammographic features suspicious for malignancy are identified. ACR BI-RADS Category 1: Negative. Result letter will be mailed to the patient. Note: At least 10% of breast cancer is not imaged by mammography. Dictated by: Dictated on workstation # [id number]
== END ==
LOC: RAD 09:45
PROVIDERS: ATTEND Family Medicine
DX: Z12.31 Encounter for screening mammogram for malignant neoplasm of breast (principal)
CPT/HCPCS: 77063; 77067

== ENCOUNTER 2022-02-23 14:00 | Inpatient (IN) | payer MEDICARE, OTHER ==
[~2022-02-23] VITALS: Ht 167.6 cm; Wt 117.1 kg
[2022-02-23 14:31] LABS: BASOPHILS % (AUTO) 1 % (0-10); EOSINOPHILS # (AUTO) 0.1 10^3/uL (0.0-0.3); EOSINOPHILS % (AUTO) 1 % (0-10); HEMATOCRIT 34 % (35-52); HEMOGLOBIN 10.8 g/dL (11.5-16.0); LYMPHOCYTES # (AUTO) 1.8 10^3/uL (1.0-4.0); LYMPHOCYTES % (AUTO) 31 % (12-44); MEAN CORPUSCULAR HEMOGLOBIN 26 pg (25-34); MEAN CORPUSCULAR HGB CONC 32 g/dL (32-36); MEAN CORPUSCULAR VOLUME 81 fL (80-99); MEAN PLATELET VOLUME 9.6 fL (9.0-12.2); MONOCYTES # (AUTO) 0.3 10^3/uL (0.0-1.0); MONOCYTES % (AUTO) 5 % (0-12); NEUTROPHILS # (AUTO) 3.5 10^3/uL (1.8-7.8); NEUTROPHILS % (AUTO) 61 % (42-75); PLATELET COUNT 208 10^3/uL (130-400); WHITE BLOOD COUNT 5.8 10^3/uL (4.3-11.0)
[2022-02-23 14:50] LABS: ALBUMIN 3.8 GM/DL (3.2-4.5); BILIRUBIN,TOTAL 0.6 MG/DL (0.1-1.0); CALCIUM 9.1 MG/DL (8.5-10.1); CREATININE SERUM 1.57 MG/DL (0.60-1.30); MAGNESIUM 1.5 MG/DL (1.6-2.4); POTASSIUM 2.8 MMOL/L (3.6-5.0); TOTAL PROTEIN 6.7 GM/DL (6.4-8.2)
[2022-02-23 14:56] LABS: PROTHROMBIN TIME PATIENT 13.7 SEC (12.2-14.7)
[2022-02-23] MEDS ORDERED: NS IV 1000 ML 1,000 ML IV SCH (15:15)
[2022-02-23] MEDS ORDERED: POTASSIUM CL 10MEQ/50ML IVPB 50 ML IV ONE (15:15)
--- NOTE | 2022-02-23 15:22 | Diagnostic Imaging Report ---
INDICATION: Chest pain. COMPARISON: 10/14/2021. FINDINGS: No focal consolidation or effusion. The heart is mildly enlarged. No gross overdistention of vascularity. IMPRESSION: Prominence of the heart but no overt failure. No focal pneumonia or pleural pathology. Dictated by: Dictated on workstation # [id number]
--- NOTE | 2022-02-23 15:44 | ED Chest Pain ---
General Chief Complaint: Dizziness/Syncope Stated Complaint: SYNCOPE Nursing Triage Note: PT TO [facility] 6 BY EMS WITH C/O FEELING DIZZY ALL DAY TODAY. PT DENIES SYNCOPE. PT STATES SHE RECENTLY STARTED WEARING 3L NC AT ALL TIMES PER PCP REQUEST Source: patient, EMS, old records Exam Limitations: no limitations History of Present Illness Date Seen by Provider: Feb 23, 2022 Time Seen by Provider: 14:02 Initial Comments This 71-year-old woman presents to the emergency room with complaints of feeling dizzy and lightheaded all day. Symptoms started last on February 19. They became worse on Wednesday. She felt wobbly when getting up out of bed and felt drunk when walking. Her heart "felt heavy" and the discomfort radiated up to her jaws. She also felt like her heart "was exploding." Symptoms are much worse with exertion. Today she denies chest discomfort or shortness of breath at rest but reports it immediately occurs with activity. Her primary kettle loader is Dr. Mora at [facility]. He has performed angiography and stress test in the past but it has been a few years. She also sees Dr. Crockett for her COPD. Her primary care provider is Dr. Villalpando. She is presently using oxygen at home via nasal cannula at 3 L. She comments that she believes her electrolytes are off balance. Family reports the patient had a very significant episode of chest pain about 1 week ago and has not been the same since. Allergies and Home Medications Allergies Coded Allergies: No Known Drug Allergies (Unverified , 10/14/21) Patient Home Medication List Home Medication List Reviewed: Yes Albuterol Sulfate (Albuterol Sulfate) 2.5 Mg/3 Ml (0.083 %) Vial.neb, 90 MCG INH QID PRN for SHORTNESS OF BREATH, (Reported) Entered as Reported by: NOEMI CALVERT on 02/23/221901 Last Action: Reviewed Alprazolam (Alprazolam) 0.5 Mg Tablet, 0.25 MG PO QID PRN for AGITATION, (Reported) Entered as Reported by: NOEMI CALVERT on 02/23/221905 Last Action: Reviewed Aspirin (Aspirin) 81 Mg Tab.chew, 81 MG PO DAILY, (Reported) Entered as Reported by: APRIL TSANG on 10/14/211818 Last Action: Reviewed Atorvastatin Calcium (Atorvastatin Calcium) 10 Mg Tablet, 10 MG PO HS, (Reported) Entered as Reported by: GARCIA JEFFERS on 11/04/181544 Last Action: Continued Bumetanide (Bumetanide) 2 Mg Tablet, 2 MG PO DAILY, (Reported) Entered as Reported by: NOEMI CALVERT on 02/23/221901 Last Action: Reviewed Duloxetine HCl (Duloxetine HCl) 60 Mg Capsule.dr, 60 MG PO DAILY, (Reported) Entered as Reported by: GARCIA JEFFERS on 11/04/181544 Last Action: Converted Ergocalciferol (Vitamin D2) (Vitamin D2) 1,250 Mcg (22680 Unit) Capsule, 1,250 MCG PO WEEK, (Reported) Entered as Reported by: APRIL TSANG on 10/14/211818 Last Action: Held Labetalol HCl (Labetalol HCl) 200 Mg Tablet, 200 MG PO DAILY, (Reported) Entered as Reported by: NOEMI CALVERT on 02/23/221913 Last Action: Held Levofloxacin (Levofloxacin) 500 Mg Tablet, 500 MG PO Q48H Prescribed by: DANIELLA VILLALPANDO on 10/15/21 0936 Last Action: Held Losartan Potassium (Losartan Potassium) 100 Mg Tablet, 100 MG PO DAILY, (Reported) Entered as Reported by: APRIL TSANG on 10/14/211818 Last Action: Continued Melatonin (Melatonin) 10 Mg Tablet, 10 MG PO HS, (Reported) Entered as Reported by: TRU HANEY on 10/04/201532 Last Action: Continued Montelukast Sodium (Singulair) 10 Mg Tablet, 10 MG PO DAILY, (Reported) Entered as Reported by: NOEMI CALVERT on 02/23/221905 Last Action: Held Pantoprazole Sodium (Pantoprazole Sodium) 40 Mg Tablet.dr, 40 MG PO DAILY, (Reported) Entered as Reported by: TRU HANEY on 10/04/201532 Last Action: Continued Potassium Chloride (Potassium Chloride) 20 Meq Tablet.er, 20 MEQ PO BID Prescribed by: DEMARCUS CALLEJAS on 10/11/20 1003 Last Action: Reviewed Pregabalin (Pregabalin) 50 Mg Capsule, 50 MG PO BID, (Reported) Entered as Reported by: TRU HANEY on 10/04/201532 Last Action: Edited Ropinirole HCl (Ropinirole HCl) 1 Mg Tablet, 1 MG PO HS, (Reported) Entered as Reported by: GARCIA JEFFERS on 11/04/18 154 Last Action: Reviewed Sucralfate (Carafate) 1 Gram Tablet, 1 GM PO TID PRN for STOMACH UPSET, (Reported) Entered as Reported by: NOEMI CALVERT on 02/23/22 190 Last Action: New Order Tramadol HCl (Tramadol HCl) 50 Mg Tablet, 100 MG PO BID, (Reported) Entered as Reported by: APRIL TSANG on 10/14/211818 Last Action: Continued Discontinued Medications Amlodipine Besylate (Amlodipine Besylate) 5 Mg Tablet, 2.5 MG PO BID, (Reported) Discontinued Reason: No Longer Taking Entered as Reported by: APRIL TSANG on 10/14/211818 Last Action: Discontinued Furosemide (Furosemide) 40 Mg Tablet, 40 MG PO DAILY Discontinued Reason: No Longer Taking Prescribed by: DANIELLA VILLALPANDO on 10/15/21 0917 Last Action: Discontinued Labetalol HCl (Labetalol HCl) 200 Mg Tablet, 400 MG PO BID, (Reported) Discontinued Reason: No Longer Taking Entered as Reported by: GARCIA JEFFERS on 11/04/18 154 Last Action: Discontinued Magnesium Oxide (Magnesium Oxide) 250 Mg Tablet, 250 MG PO DAILY, (Reported) Discontinued Reason: No Longer Taking Entered as Reported by: TRU HANEY on 10/04/20 153 Last Action: Discontinued Review of Systems Review of Systems Constitutional: no symptoms reported EENTM: No Symptoms Reported Respiratory: See HPI Cardiovascular: See HPI Gastrointestinal: No Symptoms Reported Genitourinary: No Symptoms Reported Musculoskeletal: no symptoms reported Skin: no symptoms reported Psychiatric/Neurological: No Symptoms Reported Endocrine: No Symptoms Reported Hematologic/Lymphatic: No Symptoms Reported Past Ydalnms-Ecithy-Caedhw Hx Patient Social History Tobacco Use?: No Use of E-Cig and/or Vaping dev: No Substance use?: No Alcohol Use?: No Pt feels they are or have been: No Immunizations Up To Date Influenza Vaccine Up-to-Date: No; Not Current First/Initial COVID19 Vaccinat: no Second COVID19 Vaccination Ok: no Third COVID19 Vaccination Date: no Seasonal Allergies Seasonal Allergies: No Past Medical History Surgery/Hospitalization HX: COPD Surgeries: Yes (back 3yrs. 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 Genitourinary: Yes Renal Failure (Atrophic left kidney) Gastrointestinal: Yes Gastroesophageal Reflux Musculoskeletal: Yes (OSTEOARTHRITIS;BILAT KNEE REPLACEMENTS;L SHOULDER REPLACEMENT;BACK X2;RLS ) Arthritis, Chronic Back Pain Endocrine: Yes (OBESITY) HEENT: No Loss of Vision: Denies Cancer: No Psychosocial: No Blood Disorders: No Adverse Reaction/Blood Tranf: No Family Medical History FH: CHF (congestive heart failure) 19 FATHER 19 MOTHER FH: breast cancer G8 SISTER FH: liver cancer G8 BROTHER Kidney disease 19 FATHER Heart Disease, Cancer, Hypertension, Renal Disease PAST SURGICAL HISTORY: -BACK SURGERY X 2 - -HYSTERECTOMY ( 3 SURGERIES ) -CHOLECYSTECTOMY -APPENDECTOMY -BILATERAL KNEE REPLACEMENTS--BOTH >20 YEARS AGO; RIGHT KNEE REPLACED BY DR. DAWSON; LEFT KNEE REPLACED BY DR. BRAND -RIGHT SHOULDER REPLACEMENT Physical Exam Vital Signs Vital Signs - First Documented 02/23/22 14:02 Temp 36.1 Pulse 84 Resp 16 B/P (MAP) 140/84 (102) Pulse Ox 97 O2 Delivery Nasal Cannula O2 Flow Rate 3.00 Capillary Refill : Height, Weight, BMI Height: 5'5.00" Weight: 221lbs. 3.2oz. 100.008668yp; 38.33 BMI Method:Stated General Appearance: No Apparent Distress, WD/WN HEENT: PERRL/EOMI, Normal ENT Inspection Neck: Normal Inspection Respiratory: Chest Non Tender, Lungs Clear, Normal Breath Sounds, No Accessory Muscle Use Cardiovascular: Regular Rate, Rhythm, No Edema, No Murmur Gastrointestinal: Normal Bowel Sounds, Non Tender, Soft; No Distended Extremity: Normal Inspection, No Pedal Edema Neurologic/Psychiatric: Alert, Oriented x3, No Motor/Sensory Deficits, Normal Mood/Affect, sample hand II-XII Norm as Tested Skin: Normal Color, Warm/Dry Progress/Results/Core Measures Results/Orders Lab Results Laboratory Tests Test 02/23/22 14:25 02/23/22 15:35 Range/Units White Blood Count 5.8 4.3-11.0 10^3/uL Red Blood Count 4.20 3.80-5.11 10^6/uL Hemoglobin 10.8 L 11.5-16.0 g/dL Hematocrit 34 L 35-52 % Mean Corpuscular Volume 81 80-99 fL Mean Corpuscular Hemoglobin 26 25-34 pg Mean Corpuscular Hemoglobin Concent 32 32-36 g/dL Red Cell Distribution Width 14.8 H 10.0-14.5 % Platelet Count 208 130-400 10^3/uL Mean Platelet Volume 9.6 9.0-12.2 fL Immature Granulocyte % (Auto) 0 % Neutrophils (%) (Auto) 61 42-75 % Lymphocytes (%) (Auto) 31 12-44 % Monocytes (%) (Auto) 5 0-12 % Eosinophils (%) (Auto) 1 0-10 % Basophils (%) (Auto) 1 0-10 % Neutrophils # (Auto) 3.5 1.8-7.8 10^3/uL Lymphocytes # (Auto) 1.8 1.0-4.0 10^3/uL Monocytes # (Auto) 0.3 0.0-1.0 10^3/uL Eosinophils # (Auto) 0.1 0.0-0.3 10^3/uL Basophils # (Auto) 0.0 0.0-0.1 10^3/uL Immature Granulocyte # (Auto) 0.0 0.0-0.1 10^3/uL Prothrombin Time 13.7 12.2-14.7 SEC INR Comment 1.0 0.8-1.4 Activated Partial Thromboplast Time 30 24-35 SEC Sodium Level 141 135-145 MMOL/L Potassium Level 2.8 L 3.6-5.0 MMOL/L Chloride Level 100 98-107 MMOL/L Carbon Dioxide Level 29 21-32 MMOL/L Anion Gap 12 5-14 MMOL/L Blood Urea Nitrogen 19 H 7-18 MG/DL Creatinine 1.57 H 0.60-1.30 MG/DL Estimat Glomerular Filtration Rate 35 BUN/Creatinine Ratio 12 Glucose Level 106 H 70-105 MG/DL Calcium Level 9.1 8.5-10.1 MG/DL Corrected Calcium 9.3 8.5-10.1 MG/DL Magnesium Level 1.5 L 1.6-2.4 MG/DL Total Bilirubin 0.6 0.1-1.0 MG/DL Aspartate Amino Transf (AST/SGOT) 15 5-34 U/L Alanine Aminotransferase (ALT/SGPT) 11 0-55 U/L Alkaline Phosphatase 82 40-136 U/L Myoglobin 76.3 10.0-92.0 NG/ML Troponin I 0.161 H <0.028 NG/ML Total Protein 6.7 6.4-8.2 GM/DL Albumin 3.8 3.2-4.5 GM/DL Urine Color YELLOW Urine Clarity CLEAR Urine pH 6.0 5-9 Urine Specific [place] <=1.005 1.016-1.022 Urine Protein NEGATIVE NEGATIVE Urine Glucose (UA) NEGATIVE NEGATIVE Urine Ketones NEGATIVE NEGATIVE Urine Nitrite NEGATIVE NEGATIVE Urine Bilirubin NEGATIVE NEGATIVE Urine Urobilinogen 0.2 < = 1.0 MG/DL Urine Leukocyte Esterase 1+ H NEGATIVE Urine RBC (Auto) TRACE-I H NEGATIVE Urine RBC RARE /HPF Urine WBC 2-5 /HPF Urine Squamous Epithelial Cells 2-5 /HPF Urine Crystals NONE /LPF Urine Bacteria TRACE /HPF Urine Casts NONE /LPF Urine Mucus NEGATIVE /LPF Urine Culture Indicated NO My Orders Orders - PAULA CARVAJAL MD Ed Iv/Invasive Line Start (02/23/22 14:13) Chest 1 View, Ap/Pa Only (02/23/22 14:45) Myoglobin Serum (02/23/22 14:45) Protime With Inr (02/23/22 14:45) Partial Thromboplastin Time (02/23/22 14:45) O2 (02/23/22 14:45) Monitor-Rhythm Ecg Trace Only (02/23/22 14:45) Lipid Panel (02/24/22 06:00) Troponin I Juan M (02/23/22 14:45) Potassium Cl 10meq/50ml Ivpb (Kcl 10 Meq (02/23/22 15:15) Ns Iv 1000 Ml (Sodium Chloride 0.9%) (02/23/22 15:15) Magnesium 1 Gm/100 Ml Ivpb (Magnesium Roland (02/23/22 15:45) Medications Given in ED Current Medications Medications Dose Ordered Sig/Ju Route Start Time Stop Time Status Last Admin Dose Admin Magnesium Sulfate/ Dextrose 100 ml @ 100 mls/hr ONCE ONCE IV 02/23/22 15:45 02/23/22 16:44 DC 02/23/22 16:35 100 MLS/HR Potassium Chloride 50 ml @ 50 mls/hr ONCE ONCE IV 02/23/22 15:15 02/23/22 16:14 DC 02/23/22 15:40 50 MLS/HR Vital Signs/I&O 02/23/22 14:02 Temp 36.1 Pulse 84 Resp 16 B/P (MAP) 140/84 (102) Pulse Ox 97 O2 Delivery Nasal Cannula O2 Flow Rate 3.00 Blood Pressure Mean: 102 Progress Progress Note : Progress Note Patient received IV hydration in the emergency room along with IV replacement of potassium and magnesium. She had elevated troponin level with symptoms concerning for exertional angina. Dr. Ragland was consulted. Case was reviewed with Dr. Villalpando for admission. Initial ECG Impression Date: Feb 23, 2022 Initial ECG Impression Time: 14:10 Initial ECG Rate: 68 Initial ECG Rhythm: Normal Sinus Initial ECG Intervals: Normal Initial ECG Impression: Nonspecific Changes Comment Normal sinus rhythm with no ST elevation or depression. Low voltage in precordial leads. No abnormal intervals or axis deviation. Diagnostic Imaging Diagonstic Imaging: Xray Plain Films/CT/US/NM/MRI: chest Comments NAME: [facility] REC#: [id number] PT STATUS: REG ER : 1950 PHYSICIAN: PAULA CARVAJAL MD ADMIT DATE: 02/23/22/ER Draft Date of Exam:02/23/22 CHEST 1 VIEW, AP/PA ONLY INDICATION: Chest pain. COMPARISON: 10/14/2021. FINDINGS: No focal consolidation or effusion. The heart is mildly enlarged. No gross overdistention of vascularity. IMPRESSION: Prominence of the heart but no overt failure. No focal pneumonia or pleural pathology. Dictated on workstation # [id number] Dict: 02/23/22 1510 Trans: 02/23/22 1522 [id number] Interpreted by: LINNETTE WILLS Departure Communication (Admissions) Time/Spoke to Admitting Phy: 16:00 Dr. Villalpando Time/Spoke to Consulting Phy: 15:40 Dr. Ragland Impression Primary Impression: Chest pain Qualified Codes: R07.9 - Chest pain, unspecified Additional Impressions: Elevated troponin Hypokalemia Hypomagnesemia Disposition: ADMITTED INPATIENT Condition: Stable Admissions Decision to Admit Reason: Admit from ER (General) Decision to Admit/Date: Feb 23, 2022 Time/Decision to Admit Time: 15:40 Departure-Patient Inst. Referrals: DANIELLA VILLALPANDO MD (PCP/Family) Primary Care Physician PAULA CARVAJAL MD Feb 23, 2022 15:44
[2022-02-23] MEDS ORDERED: MAGNESIUM 1 GM/100 ML IVPB 100 ML IV ONE (15:45)
[2022-02-23 15:56] LABS: BILIRUBIN,URINE NEGATIVE (NEGATIVE); CLARITY,URINE CLEAR; COLOR,URINE YELLOW; GLUCOSE, URINE (UA) NEGATIVE (NEGATIVE); KETONES,URINE NEGATIVE (NEGATIVE); LEUKOCYTE ESTERASE ,URINE 1+ (NEGATIVE); NITRITE,URINE NEGATIVE (NEGATIVE); PROTEIN,URINE NEGATIVE (NEGATIVE)
[2022-02-23 16:14] LABS: BACTERIA,URINE TRACE /HPF; RBC,URINE RARE /HPF
[2022-02-23] MEDS ORDERED: ASPIRIN 81 MG CHEW (CHILDREN'S ASA) PO ONE (16:15)
--- NOTE | 2022-02-23 16:43 | Consultation-Cardiology ---
HPI-Cardiology Cardiology Consultation: Date of Consultation 02/23/22 Time Seen by a Provider: 16:30 Date of Admission 02-23-22 Attending Physician Daniella Lao MD Admitting Physician Admitting Physician: Attending Physician: Consulting Physician Ivan Ragland MD HPI: Chief Complaint: Chest pain Ms. Zhu is a 71 yr old female who I have seen in the ED. Her daughter is present. They report her primary support worker at [facility] is Dr. Mora. She reports on Wednesday she was sitting at the kitchen table when she had a sudden onset of left sided chest pain that went across her chest and into her back. She reports she felt as though her heart was racing. She reports feeling SOB at the time. She states she felt "fullness" into her neck. She states it lasted less than 10 minutes and gradually resolved. She states since then she has been monitoring her heart rate and oxygen levels at home and BP. She states her HR has been as high as 131 and as low as 37. She states when her HR is high she feels heaviness in her chest. She states when her HR drops low she feels weak and dizzy. No anjali syncope. She reports today she started having dizziness and feeling off balance when trying to walk. She reports her HR was high and her BP when EMS arrived was in the 80's systolic. She reports with any movement she feels weak, has chest pressure and palpitations. No c/o LE swelling. She reports she has only 1 kidney and sees nephrology at [facility]. Review of Systems-Cardiology Review of Systems Constitutional: No chills, No fever; lightheadedness, malaise Eyes: No vision change Ears/Nose/Throat: No epistaxis, No recent hearing loss Respiratory: As described under HPI Cardiovascular: As described under HPI Gastrointestinal: No constipation; diarrhea Genitourinary: No dysuria, No hematuria Musculoskeletal: no symptoms reported Skin: No rash on exposed areas, No ulcerations on exposed areas Psychiatric/Neurological: As described under HPI, anxiety, depression; No syncope [id number]-[id number] Hx Patient Social History Have you traveled recently?: No Alcohol Use?: No Pt feels they are or have been: No Immunizations Up To Date Date of Pneumonia Vaccine: Mar 07, 2018 Date of Influenza Vaccine: Dec 27, 2010 Past Medical History PMH As described under Assessment. Family Medical History Family Medical History: She reports her father had CAD, a-fib and CHF. She reports her mother had CHF. Family History: FH: CHF (congestive heart failure) 19 FATHER 19 MOTHER FH: breast cancer G8 SISTER FH: liver cancer G8 BROTHER Kidney disease 19 FATHER Allergies and Home Medications Allergies Coded Allergies: No Known Drug Allergies (Unverified , 10/14/21) Patient Home Medication List Albuterol Sulfate (Albuterol Sulfate) 2.5 Mg/3 Ml (0.083 %) Vial.neb, 90 MCG INH QID PRN for SHORTNESS OF BREATH, (Reported) Entered as Reported by: NOEMI CALVERT on 02/23/221901 Last Action: Reviewed Alprazolam (Alprazolam) 0.5 Mg Tablet, 0.25 MG PO QID PRN for AGITATION, (Reported) Entered as Reported by: NOEIM CALVERT on 02/23/221905 Last Action: Reviewed Aspirin (Aspirin) 81 Mg Tab.chew, 81 MG PO DAILY, (Reported) Entered as Reported by: APRIL TSANG on 10/14/211818 Last Action: Reviewed Atorvastatin Calcium (Atorvastatin Calcium) 10 Mg Tablet, 10 MG PO HS, (Reported) Entered as Reported by: GARCIA JEFFERS on 11/04/181544 Last Action: Continued Bumetanide (Bumetanide) 2 Mg Tablet, 2 MG PO DAILY, (Reported) Entered as Reported by: NOEMI CALVERT on 02/23/221901 Last Action: Reviewed Duloxetine HCl (Duloxetine HCl) 60 Mg Capsule.dr, 60 MG PO DAILY, (Reported) Entered as Reported by: GARCIA JEFFERS on 11/04/181544 Last Action: Converted Ergocalciferol (Vitamin D2) (Vitamin D2) 1,250 Mcg (32380 Unit) Capsule, 1,250 MCG PO WEEK, (Reported) Entered as Reported by: APRIL TSANG on 10/14/211818 Last Action: Held Labetalol HCl (Labetalol HCl) 200 Mg Tablet, 200 MG PO DAILY, (Reported) Entered as Reported by: NOEMI CALVERT on 02/23/221913 Last Action: Held Levofloxacin (Levofloxacin) 500 Mg Tablet, 500 MG PO Q48H Prescribed by: DANIELLA LAO on 7/20/22 0936 Last Action: Held Losartan Potassium (Losartan Potassium) 100 Mg Tablet, 100 MG PO DAILY, (Report ed) Entered as Reported by: APRIL TSANG on 10/14/211818 Last Action: Continued Melatonin (Melatonin) 10 Mg Tablet, 10 MG PO HS, (Reported) Entered as Reported by: TRU HANEY on 10/04/201532 Last Action: Continued Montelukast Sodium (Singulair) 10 Mg Tablet, 10 MG PO DAILY, (Reported) Entered as Reported by: NOEMI CALVERT on 02/23/221905 Last Action: Held Pantoprazole Sodium (Pantoprazole Sodium) 40 Mg Tablet.dr, 40 MG PO DAILY, (Reported) Entered as Reported by: TRU HANEY on 10/04/201532 Last Action: Continued Potassium Chloride (Potassium Chloride) 20 Meq Tablet.er, 20 MEQ PO BID Prescribed by: DEMARCUS CALLEJAS on 10/11/20 1003 Last Action: Reviewed Pregabalin (Pregabalin) 50 Mg Capsule, 50 MG PO BID, (Reported) Entered as Reported by: TRU HANEY on 10/04/201532 Last Action: Edited Ropinirole HCl (Ropinirole HCl) 1 Mg Tablet, 1 MG PO HS, (Reported) Entered as Reported by: GARCIA JEFFERS on 11/04/181544 Last Action: Reviewed Sucralfate (Carafate) 1 Gram Tablet, 1 GM PO TID PRN for STOMACH UPSET, (Reported) Entered as Reported by: NOEMI CALVERT on 02/23/221903 Last Action: New Order Tramadol HCl (Tramadol HCl) 50 Mg Tablet, 100 MG PO BID, (Reported) Entered as Reported by: APRIL TSANG on 10/14/211818 Last Action: Continued Discontinued Medications Amlodipine Besylate (Amlodipine Besylate) 5 Mg Tablet, 2.5 MG PO BID, (Reported) Discontinued Reason: No Longer Taking Entered as Reported by: APRIL TSANG on 10/14/211818 Last Action: Discontinued Furosemide (Furosemide) 40 Mg Tablet, 40 MG PO DAILY Discontinued Reason: No Longer Taking Prescribed by: DANIELLA LAO on 10/15/21916 Last Action: Discontinued Labetalol HCl (Labetalol HCl) 200 Mg Tablet, 400 MG PO BID, (Reported) Discontinued Reason: No Longer Taking Entered as Reported by: GARCIA JEFFERS on 11/04/18 1545 Last Action: Discontinued Magnesium Oxide (Magnesium Oxide) 250 Mg Tablet, 250 MG PO DAILY, (Reported) Discontinued Reason: No Longer Taking Entered as Reported by: TRU HANEY on 10/04/20 1533 Last Action: Discontinued Physical Exam-Cardiology Physical Exam Vital Signs/I&O 02/23/22 02/23/22 02/24/22 02/24/22 20:00 20:00 00:08 00:38 Temp 36.4 Pulse 71 67 Resp 10 15 B/P (MAP) 111/70 (84) Pulse Ox 98 98 97 O2 Delivery Nasal Cannula Nasal Cannula Nasal Cannula O2 Flow Rate 4.00 4.00 4.00 02/24/22 02/24/22 02/24/22 01:00 04:00 04:00 Temp 36.1 Pulse 68 66 Resp 15 B/P (MAP) 121/84 (96) Pulse Ox 96 O2 Delivery Nasal Cannula O2 Flow Rate 4.00 02/24/22 00:00 Intake Total 1560 ml Output Total 0 ml Balance 1560 ml Capillary Refill : Constitutional: AAO x 3, well-developed, well-nourished HEENT: PERRL, hearing is well preserved, oral hygience is good Neck: No carotid bruit; carotid pulses are 2 + bilaterally Respiratory: No accessory muscle use, No respiratory distress; chest expansion is symmetric, chest is bilaterally symmetric, lungs clear to auscultation Cardiovascular: regular rate-rhythm; No JVD; S1 and S2 Gastrointestinal: No tender; soft, round, audible bowel sounds Extremities: no lower extremity edema bilateral Neurologic/Psychiatric: grossly intact (moves all extremities) Skin: No rash on exposed areas, No ulcerations on exposed areas Data Review Labs Laboratory Tests 02/23/22 14:25: White Blood Count 5.8, Red Blood Count 4.20, Hemoglobin 10.8L, Hematocrit 34L, Mean Corpuscular Volume 81, Mean Corpuscular Hemoglobin 26, Mean Corpuscular Hemoglobin Concent 32, Red Cell Distribution Width 14.8H, Platelet Count 208, Mean Platelet Volume 9.6, Immature Granulocyte % (Auto) 0, Neutrophils (%) (Auto) 61, Lymphocytes (%) (Auto) 31, Monocytes (%) (Auto) 5, Eosinophils (%) (Auto) 1, Basophils (%) (Auto) 1, Neutrophils # (Auto) 3.5, Lymphocytes # (Auto) 1.8, Monocytes # (Auto) 0.3, Eosinophils # (Auto) 0.1, Basophils # (Auto) 0.0, Immature Granulocyte # (Auto) 0.0, Prothrombin Time 13.7, INR Comment 1.0, Activated Partial Thromboplast Time 30, Sodium Level 141, Potassium Level 2.8L, Chloride Level 100, Carbon Dioxide Level 29, Anion Gap 12, Blood Urea Nitrogen 19H, Creatinine 1.57H, Estimat Glomerular Filtration Rate 35, BUN/Creatinine Ratio 12, Glucose Level 106H, Calcium Level 9.1, Corrected Calcium 9.3, Magnesium Level 1.5L, Total Bilirubin 0.6, Aspartate Amino Transf (AST/SGOT) 15, Alanine Aminotransferase (ALT/SGPT) 11, Alkaline Phosphatase 82, Myoglobin 76.3, Troponin I 0.161H, Total Protein 6.7, Albumin 3.8 02/23/22 15:35: Urine Color YELLOW, Urine Clarity CLEAR, Urine pH 6.0, Urine Specific [place] <=1.005, Urine Protein NEGATIVE, Urine Glucose (UA) NEGATIVE, Urine Ketones NEGATIVE, Urine Nitrite NEGATIVE, Urine Bilirubin NEGATIVE, Urine Urobilinogen 0.2, Urine Leukocyte Esterase 1+H, Urine RBC (Auto) TRACE-IH, Urine RBC RARE, Urine WBC 2-5, Urine Squamous Epithelial Cells 2-5, Urine Crystals NONE, Urine Bacteria TRACE, Urine Casts NONE, Urine Mucus NEGATIVE, Urine Culture Indicated NO 02/23/22 22:05: Troponin I 0.106H 02/24/22 05:12: White Blood Count 4.9, Red Blood Count 3.85, Hemoglobin 10.0L, Hematocrit 32L, Mean Corpuscular Volume 83, Mean Corpuscular Hemoglobin 26, Mean Corpuscular Hemoglobin Concent 31L, Red Cell Distribution Width 15.1H, Platelet Count 195, Mean Platelet Volume 10.5, Sodium Level 142, Potassium Level 3.1L, Chloride Level 104, Carbon Dioxide Level 24, Anion Gap 14, Blood Urea Nitrogen 17, Creatinine 1.39H, Estimat Glomerular Filtration Rate 41, BUN/Creatinine Ratio 1 2, Glucose Level 103, Calcium Level 8.7, Corrected Calcium 9.1, Total Bilirubin 0.5, Aspartate Amino Transf (AST/SGOT) 14, Alanine Aminotransferase (ALT/SGPT) 11, Alkaline Phosphatase 77, Total Protein 6.2L, Albumin 3.5, Triglycerides Level 111, Cholesterol Level 121, LDL Cholesterol Direct 59, VLDL Cholesterol 22, HDL Cholesterol 43 Radiology NAME: ASIA ZHU MED REC#: [id number] PT STATUS: REG ER : 1950 PHYSICIAN: PAULA CARVAJAL MD ADMIT DATE: 02/23/22/ER Draft Date of Exam:02/23/22 CHEST 1 VIEW, AP/PA ONLY INDICATION: Chest pain. COMPARISON: 10/14/2021. FINDINGS: No focal consolidation or effusion. The heart is mildly enlarged. No gross overdistention of vascularity. IMPRESSION: Prominence of the heart but no overt failure. No focal pneumonia or pleural pathology. Dictated on workstation # [id number] Dict: 02/23/22 1510 Trans: 02/23/22 1522 [id number] Interpreted by: LINNETTE WILLS Electronically signed by: ECG Impression ECG Initial ECG Rhythm: Normal Sinus A/P-Cardiology Assessment/Admission Diagnosis Minimally elevated troponin Palpitations/dizziness/weakness of undetermined etiology Electrolytes abnormalities - hypokalemia/hypomag Cardiac cath [place] [address] Santacruz showed no obstructive dz MPI [place] [address] Santacruz showed No ischemia or infarction on SPECT images.Normal left ventricular size with normal contractility. Calculated ejection fraction 78%. HTN CKD 3b - reports only one kidney - follows with [facility] nephrology Reports h/o PE x 2 events - had been on OAC - reports it was stopped several months ago by Dr. Mora and she has been on ASA 81mg Depression/anxiety RLS Peripheral neuropathy Discussion and Recomendations Minimally elevated troponin - NSTEMI vs Type 2 NV secondary to CKD Dizzines/weakness/disequilibrium of undetermined etiology - medical services managing Palpitations - undetermined etiology - keep on tele Request records from [facility] Replace electrolytes - likely secondary to diarrhea Monitor lab closely Further recs will be based on her hospital course We would like to thank Dr. Lao for this consult DILAN SMITH Feb 23, 2022 16:43
[2022-02-23 17:30] VITALS: BP 149/92
[2022-02-23 17:33] VITALS: BP 149/92
[2022-02-23] MEDS ORDERED: NITROGLYCERIN 0.4 MG SL TABS BTL 25'S SL PRN (17:45)
[2022-02-23] MEDS ORDERED: morphine INJ 4 MG/ML 1 ML (VIAL/SYRINGE) IV PRN (17:45)
[2022-02-23] MEDS ORDERED: ONDANSETRON 4 MG/2 ML (SDV) Z0FRAN IV PRN (17:45)
[2022-02-23] MEDS: POTASSIUM CL 10 MEQ/50 ML IVPB (PRE-MIX) IV SCH ×3 (17:50→20:48)
[2022-02-23] MEDS: NS IV 1000 ML 1,000 ML IV SCH (17:50)
--- NOTE | 2022-02-23 18:22 | Consultation-Cardiology ---
HPI-Cardiology Cardiology Consultation: Date of Consultation 02/23/22 Time Seen by a Provider: 17:50 Date of Admission Attending Physician Daniella Lao MD Admitting Physician Admitting Physician: Daniella Lao MD Attending Physician: Daniella Lao MD Consulting Physician JUAN MORRIS MD, MA, FACP, FACC, [facility] [place], CCDS Physician requesting Card consult: Dr Lao HPI: Chief Complaint: Chest pain Ms. Feldman is a 71 yr old female who I have seen in the ED. Her daughter is present. They report her primary extractor loader and unloader at [facility] is Dr. Mora. She reports on Wednesday she was sitting at the kitchen table when she had a sudden onset of left sided chest pain that went across her chest and into her back. She reports she felt as though her heart was racing. She reports feeling SOB at the time. She states she felt "fullness" into her neck. She states it lasted less than 10 minutes and gradually resolved. She states since then she has been monitoring her heart rate and oxygen levels at home and BP. She states her HR has been as high as 131 and as low as 37. She states when her HR is high she feels heaviness in her chest. She states when her HR drops low she feels weak and dizzy. No anjali syncope. She reports today she started having dizziness and feeling off balance when trying to walk. She reports her HR was high and her BP when EMS arrived was in the 80's systolic. She reports with any movement she feels weak, has chest pressure and palpitations. No c/o LE swelling. She reports she has only 1 kidney and sees nephrology at [facility]. Review of Systems-Cardiology Review of Systems Constitutional: No chills, No fever; lightheadedness, malaise Eyes: No vision change Ears/Nose/Throat: No epistaxis, No recent hearing loss Respiratory: As described under HPI Cardiovascular: As described under HPI Gastrointestinal: No constipation; diarrhea Genitourinary: No dysuria, No hematuria Musculoskeletal: no symptoms reported Skin: No rash on exposed areas, No ulcerations on exposed areas Psychiatric/Neurological: As described under HPI, anxiety, depression; No syncope YJJ-Dcrugm-Idwgsd Hx Patient Social History Have you traveled recently?: No Alcohol Use?: No Pt feels they are or have been: No Immunizations Up To Date Date of Pneumonia Vaccine: Mar 07, 2018 Date of Influenza Vaccine: Dec 27, 2010 Past Medical History PMH As described under Assessment. Family Medical History Family Medical History: She reports her father had CAD, a-fib and CHF. She reports her mother had CHF. Family History: FH: CHF (congestive heart failure) 19 FATHER 19 MOTHER FH: breast cancer G8 SISTER FH: liver cancer G8 BROTHER Kidney disease 19 FATHER Allergies and Home Medications Allergies Coded Allergies: No Known Drug Allergies (Unverified , 10/14/21) Patient Home Medication List Home Medication List Reviewed: Yes Amlodipine Besylate (Amlodipine Besylate) 5 Mg Tablet, 2.5 MG PO BID, (Reported) Entered as Reported by: APRIL TSANG on 10/14/211818 Aspirin (Aspirin) 81 Mg Tab.chew, 81 MG PO DAILY, (Reported) Entered as Reported by: APRIL TSANG on 10/14/211818 Atorvastatin Calcium (Atorvastatin Calcium) 10 Mg Tablet, 10 MG PO HS, (R eported) Entered as Reported by: GARCIA JEFFERS on 11/04/18 154 Duloxetine HCl (Duloxetine HCl) 60 Mg Capsule.dr, 60 MG PO DAILY, (Reported) Entered as Reported by: GARCIA JEFFERS on 11/04/18 154 Ergocalciferol (Vitamin D2) (Vitamin D2) 1,250 Mcg (08204 Unit) Capsule, 1,250 MCG PO WEEK, (Reported) Entered as Reported by: APRIL TSANG on 10/14/211818 Furosemide (Furosemide) 40 Mg Tablet, 40 MG PO DAILY Prescribed by: DANIELLA LAO on 10/15/21 0917 Labetalol HCl (Labetalol HCl) 200 Mg Tablet, 400 MG PO BID, (Reported) Entered as Reported by: GARCIA JEFFERS on 11/04/18 154 Levofloxacin (Levofloxacin) 500 Mg Tablet, 500 MG PO Q48H Prescribed by: DANIELLA LAO on 10/15/21 0936 Losartan Potassium (Losartan Potassium) 100 Mg Tablet, 100 MG PO DAILY, (Reported) Entered as Reported by: APRIL TSANG on 10/14/211818 Magnesium Oxide (Magnesium Oxide) 250 Mg Tablet, 250 MG PO DAILY, (Reported) Entered as Reported by: TRU HANEY on 10/04/20 1533 Melatonin (Melatonin) 10 Mg Tablet, 10 MG PO HS, (Reported) Entered as Reported by: TRU HANEY on 10/04/20 1533 Pantoprazole Sodium (Pantoprazole Sodium) 40 Mg Tablet.dr, 40 MG PO DAILY, (Reported) Entered as Reported by: TRU HANEY on 10/04/20 1533 Potassium Chloride (Potassium Chloride) 20 Meq Tablet.er, 20 MEQ PO BID Prescribed by: DEMARCUS CALLEJAS on 10/11/20 1003 Pregabalin (Pregabalin) 50 Mg Capsule, 50 MG PO TID, (Reported) Entered as Reported by: TRU HANEY on 10/04/20 1533 Ropinirole HCl (Ropinirole HCl) 1 Mg Tablet, 1 MG PO HS, (Reported) Entered as Reported by: GARCIA JEFFERS on 11/04/18 1545 Tramadol HCl (Tramadol HCl) 50 Mg Tablet, 100 MG PO BID, (Reported) Entered as Reported by: APRIL TSANG on 10/14/21 1819 Physical Exam-Cardiology Physical Exam Vital Signs/I&O 02/23/22 02/23/22 02/23/22 02/23/22 14:02 17:07 17:30 17:33 Temp 36.1 Pulse 84 69 71 68 Resp 16 18 13 B/P (MAP) 140/84 (102) 140/84 149/92 (111) 149/92 (111) Pulse Ox 97 99 99 98 O2 Delivery Nasal Cannula Nasal Cannula Nasal Cannula Nasal Cannula O2 Flow Rate 3.00 4.00 4.00 Capillary Refill : Constitutional: AAO x 3, well-developed, well-nourished HEENT: PERRL, hearing is well preserved, oral hygience is good Neck: No carotid bruit; carotid pulses are 2 + bilaterally Respiratory: No accessory muscle use, No respiratory distress; chest expansion is symmetric, chest is bilaterally symmetric, lungs clear to auscultation Cardiovascular: regular rate-rhythm; No JVD; S1 and S2 Gastrointestinal: No tender; soft, round, audible bowel sounds Extremities: no lower extremity edema bilateral Neurologic/Psychiatric: grossly intact (moves all extremities) Skin: No rash on exposed areas, No ulcerations on exposed areas Data Review Labs Laboratory Tests 02/23/22 14:25: White Blood Count 5.8, Red Blood Count 4.20, Hemoglobin 10.8L, Hematocrit 34L, Mean Corpuscular Volume 81, Mean Corpuscular Hemoglobin 26, Mean Corpuscular Hemoglobin Concent 32, Red Cell Distribution Width 14.8H, Platelet Count 208, Mean Platelet Volume 9.6, Immature Granulocyte % (Auto) 0, Neutrophils (%) (Auto) 61, Lymphocytes (%) (Auto) 31, Monocytes (%) (Auto) 5, Eosinophils (%) (Auto) 1, Basophils (%) (Auto) 1, Neutrophils # (Auto) 3.5, Lymphocytes # (Auto) 1.8, Monocytes # (Auto) 0.3, Eosinophils # (Auto) 0.1, Basophils # (Auto) 0.0, Immature Granulocyte # (Auto) 0.0, Prothrombin Time 13.7, INR Comment 1.0, Activated Partial Thromboplast Time 30, Sodium Level 141, Potassium Level 2.8L, Chloride Level 100, Carbon Dioxide Level 29, Anion Gap 12, Blood Urea Nitrogen 19H, Creatinine 1.57H, Estimat Glomerular Filtration Rate 35, BUN/Creatinine Ratio 12, Glucose Level 106H, Calcium Level 9.1, Corrected Calcium 9.3, Magne sium Level 1.5L, Total Bilirubin 0.6, Aspartate Amino Transf (AST/SGOT) 15, Alanine Aminotransferase (ALT/SGPT) 11, Alkaline Phosphatase 82, Myoglobin 76.3, Troponin I 0.161H, Total Protein 6.7, Albumin 3.8 02/23/22 15:35: Urine Color YELLOW, Urine Clarity CLEAR, Urine pH 6.0, Urine Specific [place] <=1.005, Urine Protein NEGATIVE, Urine Glucose (UA) NEGATIVE, Urine Ketones NEGATIVE, Urine Nitrite NEGATIVE, Urine Bilirubin NEGATIVE, Urine Urobilinogen 0.2, Urine Leukocyte Esterase 1+H, Urine RBC (Auto) TRACE-IH, Urine RBC RARE, Urine WBC 2-5, Urine Squamous Epithelial Cells 2-5, Urine Crystals NONE, Urine Bacteria TRACE, Urine Casts NONE, Urine Mucus NEGATIVE, Urine Culture Indicated NO A/P-Cardiology Assessment/Admission Diagnosis Suspect acute cor syndrome Palpitations/dizziness/weakness of undetermined etiology Electrolytes abnormalities - hypokalemia/hypomag Cardiac cath of [address] Santacruz showed no obstructive dz MPI of [address] Santacruz showed No ischemia or infarction on SPECT images.Normal left ventricular size with normal contractility. Calculated ejection fraction 78%. HTN CKD 3b - reports only one kidney - follows with [facility] Reports h/o PE x 2 events - had been on OAC - reports it was stopped several months ago by Dr. Mora and she has been on ASA 81mg Depression/anxiety RLS Peripheral neuropathy Discussion and Recomendations * Card cath recommended because of suspected ACS. Rationale, procedure, risks, benefits potential complications and alternatives of card cath and possible ad hoc PCI discussed in detail. She understands and is willing to proceed * She understands her additional risk of contrast nephropathy, given baseline CKD 3b. She still wishes to proceed * Hydrate and replenish electrolytes * We recommend CT head to eval her symptoms of poor balance and dizziness (present for several days / weeks) * Keep on tele * DAPT * Beta-mae if tolerated. Hold off on it at this time because she reports bradycardia at home * Monitor labs JUAN MORRIS MD FACP [facility] CCDS Feb 23, 2022 18:22
[2022-02-23] MEDS ORDERED: CLOPIDOGREL 300 MG (PLAVIX) TABLET PO NR (18:30)
--- NOTE | 2022-02-23 18:38 | History & Physical ---
History of Present Illness History of Present Illness Reason for visit/HPI Pt is a 71 y/o female who is known to me from clinic. Poonam and her DTR reports that Constance started to have chest pain symptoms over a week ago - on a Wednesday evening her dtr was at her house and Poonam reported clutched her chest, complained of chest pain going to her back and up her neck. Her DTR tried to get Constance to go to the hospital, but she refused to go to the ER. Her pain intermittently continued throughout this week and over the weekend with increased shortness of breath and use of her PRN oxygen. Poonam reports that the pain and shortness of breath became worse today and she subsequently called EMS to transport her to the hospital [place]. Poonam continues to have some intermittent chest pain. Date of Admission Feb 23, 2022 at 16:00 Date Seen by a Provider: Feb 23, 2022 Time Seen by a Provider: 18:10 Attending Physician Daniella Lao MD Admitting Physician Admitting Physician: Daniella Lao MD Attending Physician: Daniella Lao MD Consult Dr ragland Allergies and Home Medications Allergies Coded Allergies: No Known Drug Allergies (Unverified , 10/14/21) Patient Home Medication List Home Medication List Reviewed: Yes Albuterol Sulfate (Albuterol Sulfate) 2.5 Mg/3 Ml (0.083 %) Vial.neb, 90 MCG INH QID PRN for SHORTNESS OF BREATH, (Reported) Entered as Reported by: NOEMI CALVERT on 02/23/221901 Last Action: Reviewed Alprazolam (Alprazolam) 0.5 Mg Tablet, 0.25 MG PO QID PRN for AGITATION, (Reported) Entered as Reported by: NOEMI CALVERT on 02/23/221905 Last Action: Reviewed Aspirin (Aspirin) 81 Mg Tab.chew, 81 MG PO DAILY, (Reported) Entered as Reported by: APRIL TSANG on 10/14/211818 Last Action: Reviewed Atorvastatin Calcium (Atorvastatin Calcium) 10 Mg Tablet, 10 MG PO HS, (Reported) Entered as Reported by: GARCIA JEFFERS on 11/04/18 1545 Last Action: Continued Bumetanide (Bumetanide) 2 Mg Tablet, 2 MG PO DAILY, (Reported) Entered as Reported by: NOEMI CALVERT on 02/23/221901 Last Action: Reviewed Duloxetine HCl (Duloxetine HCl) 60 Mg Capsule.dr, 60 MG PO DAILY, (Reported) Entered as Reported by: GARCIA JEFFERS on 11/04/181544 Last Action: Converted Ergocalciferol (Vitamin D2) (Vitamin D2) 1,250 Mcg (79250 Unit) Capsule, 1,250 MCG PO WEEK, (Reported) Entered as Reported by: APRIL TSANG on 10/14/211818 Last Action: Held Labetalol HCl (Labetalol HCl) 200 Mg Tablet, 200 MG PO DAILY, (Reported) Entered as Reported by: NOEMI CALVERT on 02/23/221913 Last Action: Held Levofloxacin (Levofloxacin) 500 Mg Tablet, 500 MG PO Q48H Prescribed by: DANIELLA LAO on 10/15/2136 Last Action: Held Losartan Potassium (Losartan Potassium) 100 Mg Tablet, 100 MG PO DAILY, (Reported) Entered as Reported by: APRIL TSANG on 10/14/211818 Last Action: Continued Melatonin (Melatonin) 10 Mg Tablet, 10 MG PO HS, (Reported) Entered as Reported by: TRU HANEY on 10/04/201532 Last Action: Continued Montelukast Sodium (Singulair) 10 Mg Tablet, 10 MG PO DAILY, (Reported) Entered as Reported by: NOEMI CALVERT on 02/23/221905 Last Action: Held Pantoprazole Sodium (Pantoprazole Sodium) 40 Mg Tablet.dr, 40 MG PO DAILY, (Reported) Entered as Reported by: TRU HANEY on 10/04/201532 Last Action: Continued Potassium Chloride (Potassium Chloride) 20 Meq Tablet.er, 20 MEQ PO BID Prescribed by: DEMARCUS CALLEJAS on 10/11/20 1003 Last Action: Reviewed Pregabalin (Pregabalin) 50 Mg Capsule, 50 MG PO BID, (Reported) Entered as Reported by: TRU HANEY on 10/04/201532 Last Action: Edited Ropinirole HCl (Ropinirole HCl) 1 Mg Tablet, 1 MG PO HS, (Reported) Entered as Reported by: GARCIA JEFFERS on 11/04/181544 Last Action: Reviewed Sucralfate (Carafate) 1 Gram Tablet, 1 GM PO TID PRN for STOMACH UPSET, (Reported) Entered as Reported by: NOEMI CALVERT on 02/23/22 190 Last Action: New Order Tramadol HCl (Tramadol HCl) 50 Mg Tablet, 100 MG PO BID, (Reported) Entered as Reported by: APRIL TSANG on 10/14/211818 Last Action: Continued Discontinued Medications Amlodipine Besylate (Amlodipine Besylate) 5 Mg Tablet, 2.5 MG PO BID, (Reported) Discontinued Reason: No Longer Taking Entered as Reported by: APRIL TSANG on 10/14/211818 Last Action: Discontinued Furosemide (Furosemide) 40 Mg Tablet, 40 MG PO DAILY Discontinued Reason: No Longer Taking Prescribed by: DANIELLA LAO on 10/15/21 0917 Last Action: Discontinued Labetalol HCl (Labetalol HCl) 200 Mg Tablet, 400 MG PO BID, (Reported) Discontinued Reason: No Longer Taking Entered as Reported by: GARCIA JEFFERS on 11/04/18 1545 Last Action: Discontinued Magnesium Oxide (Magnesium Oxide) 250 Mg Tablet, 250 MG PO DAILY, (Reported) Discontinued Reason: No Longer Taking Entered as Reported by: TRU HANEY on 10/04/20 1533 Last Action: Discontinued Past [id number]-[id number] Hx Patient Social History Marrital Status: Number of Children: 3 Living Status: lives at her home alone, her dtr checks on her frequently 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) Tobacco Use?: No Smoking Status: Never a Smoker Use of E-Cig and/or Vaping dev: No Substance use?: No Alcohol Use?: No Pt feels they are or have been: No Immunizations Up To Date Date of Influenza Vaccine: Dec 27, 2010 First/Initial COVID19 Vaccinat: no Second COVID19 Vaccination Ok: no Tetanus Booster (TDap): Unknown Date of Pneumonia Vaccine: Mar 07, 2018 Seasonal Allergies Seasonal Allergies: No Current Status status: No status: No Communicates: Verbally Primary Language: Malawian Preferred Spoken Language: Malawian Sensory deficits: Hearing impairment Implanted or Applied Medical D: Other (oxygen) Past Medical History Surgeries: Appendectomy, Section, Gallbladder, Hysterectomy, Joint Replacement, Orthopedic Currently Using CPAP: No Currently Using BIPAP: No Atrial Fibrillation, High Cholesterol, Hypertension [employer] History: Hysterectomy, Menopausal Sexually Transmitted Disease: No HIV/AIDS: No Renal Failure (due to having only one kidney) Gastroesophageal Reflux Arthritis, Chronic Back Pain Loss of Vision: Denies Anxiety Blood Disorders: No Adverse Reaction/Blood Tranf: No HTN Family Medical History Reviewed and Corrections made FH: CHF (congestive heart failure) 19 FATHER 19 MOTHER FH: breast cancer G8 SISTER FH: liver cancer G8 BROTHER Kidney disease 19 FATHER Heart Disease, Cancer, Hypertension, Renal Disease, Stroke (carotid artery disease) PAST SURGICAL HISTORY: -BACK SURGERY X 2 - -HYSTERECTOMY ( 3 SURGERIES ) -CHOLECYSTECTOMY -APPENDECTOMY -BILATERAL KNEE REPLACEMENTS--BOTH >20 YEARS AGO; RIGHT KNEE REPLACED BY DR. DAWSON; LEFT KNEE REPLACED BY DR. BRAND -RIGHT SHOULDER REPLACEMENT Review of Systems Constitutional: No chills, No diaphoresis, No fever; malaise; No weakness EENTM: hearing loss; No hoarseness, No throat pain Respiratory: No cough; dyspnea on exertion, short of breath Cardiovascular: chest pain, edema, palpitations Gastrointestinal: No abdominal pain, No nausea, No vomiting Genitourinary: no symptoms reported Musculoskeletal: back pain, joint pain, muscle weakness Skin: no symptoms reported Psychiatric/Neurological: Anxiety (intermittent ), Weakness, Other (dtr reports her mom was unable to walk straight or stand well this morning) All Other Systems Reviewed Negative Unless Noted: Yes Physical Exam Vital Signs Vital Signs - First Documented 02/23/22 14:02 Temp 36.1 Pulse 84 Resp 16 B/P (MAP) 140/84 (102) Pulse Ox 97 O2 Delivery Nasal Cannula O2 Flow Rate 3.00 Capillary Refill : Height, Weight, BMI Height: 5'5.00" Weight: 221lbs. 3.2oz. [id number]; 38.33 BMI Method:Stated General Appearance: No Apparent Distress, WD/WN HEENT: PERRL/EOMI, Pharynx Normal Neck: Full Range of Motion, Non Tender, Supple Respiratory: Chest Non Tender, Lungs Clear, Normal Breath Sounds, No Accessory Muscle Use, No Respiratory Distress Cardiovascular: Regular Rate, Rhythm, Normal Peripheral Pulses Gastrointestinal: Normal Bowel Sounds, No Pulsatile Mass, Non Tender, Soft Rectal: Deferred Back: No Vertebral Tenderness Extremity: Normal Capillary Refill, No Calf Tenderness, Pedal Edema (trace) Neurologic/Psychiatric: Alert, Oriented x3, No Motor/Sensory Deficits, Normal Mood/Affect Skin: Normal Color, Warm/Dry Lymphatic: No Adenopathy Assessment/Plan Assessment and Plan Chest pain Elevated troponin Hypoxia Chronic Hypertension Chronic Oxygen use COPD Hyperlipidemia Insomnia Chronic renal disease Depression Restless leg syndrome Hypokalemia Hypomagnesemia Chest pain with Elevated troponin -pt has had persistent chest pain off and on for over a week - discussed with pt, her DTR's and Dr. Ragland. - pt has decided to stay and have Dr. Ragland perform her heart catheterization tomorrow when he is available. - monitor symptoms, pt given appropriate treatment in the ER. - admitted in [facility] with telemetry Hypoxia with Chronic oxygen use and mild COPD - continue with oxygen support - restart home medications when reconciled. Chronic Hypertension - pt on labetalol as outpt, will wait for reconciliation of medication and restart medication as indicated. Hyperlipidemia - restart statin therapy Insomnia - resume melatonin Chronic renal disease - closely monitor renal function - repeat labs tomorrow - will need appropriate hydration before and after heart cath. Depression - resume medication when reconciliation is performed. Restless leg syndrome - resume ropinirole Hypokalemia, hypomagnesemia - replenish with iv medications, repeat labs in morning. dvt prophylaxis with scd's waiting on lovenox until after heart cath - as we are unsure when that will take place gi prophylaxis with ppi Admission Diagnosis Chest pain Elevated troponin Hypoxia Chronic Hypertension Chronic Oxygen use COPD Hyperlipidemia Insomnia Chronic renal disease Depression Restless leg syndrome Hypokalemia Hypomagnesemia Admission Status: Inpatient Order (span 2 midnights) Reason for Inpatient Admission: inpt admission for chest pain, electrolyte abnormality - weakness - will require at least 48+ hours for testing, treatment and stabilization DANIELLA LAO MD Feb 23, 2022 18:38
--- NOTE | 2022-02-23 18:46 | Diagnostic Imaging Report ---
EXAMINATION: CT head without contrast. TECHNIQUE: Multiple contiguous axial images were obtained through the brain without the use of intravenous contrast. All CT scans use one or more of the following dose optimizing techniques: automated exposure control, MA and/or KvP adjustment based on patient size and exam type or iterative reconstruction. HISTORY: Dizziness. Lightheadedness. COMPARISON: 05/24/2020. FINDINGS: No large acute territorial ischemia, mass, or hemorrhage. No midline shift or mass effect. The ventricles, cortical sulci, and basilar cisterns are patent and unremarkable. The orbits are normal. Paranasal sinuses are normal. Mastoid air cells are clear. No soft tissue abnormality is seen. No osseus lesions or fractures are seen. IMPRESSION: 1. No large acute territorial ischemia, mass, or hemorrhage. Dictated by: Dictated on workstation # [id number]
[2022-02-23] MEDS ORDERED: BUME2TAB7 PO (19:02)
[2022-02-23] MEDS ORDERED: ALBU2.5V4 INH (19:02)
[2022-02-23] MEDS ORDERED: SUCR1TAB36 PO (19:04)
[2022-02-23] MEDS ORDERED: MONT10TA21 PO (19:06)
[2022-02-23] MEDS ORDERED: ALPR0.5T7 PO (19:06)
[2022-02-23] MEDS ORDERED: LABE200T10 PO (19:14)
[2022-02-23] MEDS: ACETAMINOPHEN 325 MG TABLET PO PRN (19:38)
[2022-02-23] MEDS ORDERED: AtorvaSTATin TABLET 10 MG TABLET PO SCH (21:00)
[2022-02-23] MEDS ORDERED: rOPINIRole 1 MG (REQUIP) TABLET PO ONE (21:00)
[2022-02-23] MEDS ORDERED: MELATONIN 10 MG TABLET PO SCH (21:00)
[2022-02-23] MEDS: PREGABALIN 50 MG (LYRICA) CAP PO SCH (21:14)
[2022-02-24] VITALS (19 sets, daily range): BP systolic 111–174; BP diastolic 70–118
[2022-02-24] MEDS: NS IV 1000 ML 1,000 ML IV SCH ×4 (01:41→16:20)
[2022-02-24 05:56] LABS: HEMATOCRIT 32 % (35-52); MEAN CORPUSCULAR HEMOGLOBIN 26 pg (25-34); MEAN CORPUSCULAR HGB CONC 31 g/dL (32-36); MEAN CORPUSCULAR VOLUME 83 fL (80-99); MEAN PLATELET VOLUME 10.5 fL (9.0-12.2); PLATELET COUNT 195 10^3/uL (130-400); WHITE BLOOD COUNT 4.9 10^3/uL (4.3-11.0)
[2022-02-24 06:10] LABS: CHOLESTEROL 121 MG/DL (< 200); HDL CHOLESTEROL 43 MG/DL (40-60); TRIGLYCERIDES 111 MG/DL (<150); VLDL CHOLESTEROL 22 MG/DL (5-40)
[2022-02-24 06:12] LABS: ALBUMIN 3.5 GM/DL (3.2-4.5); BILIRUBIN,TOTAL 0.5 MG/DL (0.1-1.0); CALCIUM 8.7 MG/DL (8.5-10.1); CREATININE SERUM 1.39 MG/DL (0.60-1.30); POTASSIUM 3.1 MMOL/L (3.6-5.0); TOTAL PROTEIN 6.2 GM/DL (6.4-8.2)
[2022-02-24] MEDS ORDERED: KCL 20 MEQ TAB (K-DUR) PO ONE (07:00)
[2022-02-24] MEDS ORDERED: PANTOPRAZOLE 40 MG (PROTONIX) TAB PO SCH (07:00)
[2022-02-24] MEDS ORDERED: LIDOCAINE 1% INJ 30 ML (XYLOCAINE) VIAL ONE (07:52)
[2022-02-24] MEDS ORDERED: HEParin (CATH LAB) 2,000 ML IV ONE (07:53)
[2022-02-24] MEDS ORDERED: SALIVA SUBSTITUTE 60 ML SPRAY(MOUTHKOTE) MM PRN (08:45)
--- NOTE | 2022-02-24 08:50 | Progress Note ---
Subjective Subjective Date Seen by Provider: Feb 24, 2022 Time Seen by Provider: 08:20 Pt reports that she is feeling better today. She denies chest pain currently. She states that her neck and back do not hurt either. She reports breathing better today compared to admission. Review of Systems General: No Chills; Fatigue HEENT: No Head Aches Pulmonary: Dyspnea; No Cough Cardiovascular: No: Chest Pain, Palpitations Gastrointestinal: No: Nausea, Abdominal Pain Neurological: No: Weakness, Confusion All Other Systems Reviewed All Other Systems Reviewed: Yes Objective Exam Vital Signs Vital Signs Date Time Temp Pulse Resp B/P (MAP) Pulse Ox O2 Delivery O2 Flow Rate FiO2 02/24/22 07:48 36.0 67 15 146/91 (109) 98 Nasal Cannula 4.00 02/24/22 07:47 36.1 68 15 121/84 (96) 96 Nasal Cannula 4.00 4.00 02/24/22 07:00 68 02/24/22 04:00 36.1 02/24/22 04:00 66 15 121/84 (96) 96 Nasal Cannula 4.00 02/24/22 01:00 68 02/24/22 00:38 67 15 111/70 (84) 97 Nasal Cannula 4.00 02/24/22 00:08 36.4 02/23/22 20:00 98 Nasal Cannula 4.00 02/23/22 20:00 71 10 98 Nasal Cannula 4.00 02/23/22 19:00 71 02/23/22 17:33 68 13 149/92 (111) 98 Nasal Cannula 4.00 02/23/22 17:30 71 149/92 (111) 99 Nasal Cannula 4.00 02/23/22 17:30 Nasal Cannula 4.00 02/23/22 17:07 69 18 140/84 99 Nasal Cannula 02/23/22 14:02 36.1 84 16 140/84 (102) 97 Nasal Cannula 3.00 I & O 02/24/22 07:00 Intake Total 2560 ml Output Total 0 ml Balance 2560 ml General Appearance: No Apparent Distress, WD/WN HEENT: PERRL/EOMI, Pharynx Normal Neck: Full Range of Motion, Non Tender, Supple Respiratory: Chest Non Tender, Lungs Clear, Normal Breath Sounds, No Accessory Muscle Use, No Respiratory Distress Cardiovascular: Regular Rate, Rhythm, Normal Peripheral Pulses Gastrointestinal: Normal Bowel Sounds, No Pulsatile Mass, Non Tender, Soft Rectal: Deferred Back: No Vertebral Tenderness Extremity: Normal Capillary Refill, No Calf Tenderness, Pedal Edema (trace) Neurologic/Psychiatric: Alert, Oriented x3, No Motor/Sensory Deficits, Normal Mood/Affect Skin: Normal Color, Warm/Dry Lymphatic: No Adenopathy Results Lab Laboratory Tests 02/23/22 14:25: White Blood Count 5.8, Red Blood Count 4.20, Hemoglobin 10.8L, Hematocrit 34L, Mean Corpuscular Volume 81, Mean Corpuscular Hemoglobin 26, Mean Corpuscular Hemoglobin Concent 32, Red Cell Distribution Width 14.8H, Platelet Count 208, Mean Platelet Volume 9.6, Immature Granulocyte % (Auto) 0, Neutrophils (%) (Auto) 61, Lymphocytes (%) (Auto) 31, Monocytes (%) (Auto) 5, Eosinophils (%) (Auto) 1, Basophils (%) (Auto) 1, Neutrophils # (Auto) 3.5, Lymphocytes # (Auto) 1.8, Monocytes # (Auto) 0.3, Eosinophils # (Auto) 0.1, Basophils # (Auto) 0.0, Immature Granulocyte # (Auto) 0.0, Prothrombin Time 13.7, INR Comment 1.0, Activated Partial Thromboplast Time 30, Sodium Level 141, Potassium Level 2.8L, Chloride Level 100, Carbon Dioxide Level 29, Anion Gap 12, Blood Urea Nitrogen 19H, Creatinine 1.57H, Estimat Glomerular Filtration Rate 35, BUN/Creatinine Ratio 12, Glucose Level 106H, Calcium Level 9.1, Corrected Calcium 9.3, Magnesium Level 1.5L, Total Bilirubin 0.6, Aspartate Amino Transf (AST/SGOT) 15, Alanine Aminotransferase (ALT/SGPT) 11, Alkaline Phosphatase 82, Myoglobin 76.3, Troponin I 0.161H, Total Protein 6.7, Albumin 3.8 02/23/22 15:35: Urine Color YELLOW, Urine Clarity CLEAR, Urine pH 6.0, Urine Specific [place] <=1.005, Urine Protein NEGATIVE, Urine Glucose (UA) NEGATIVE, Urine Ketones NEGATIVE, Urine Nitrite NEGATIVE, Urine Bilirubin NEGATIVE, Urine Urobilinogen 0.2, Urine Leukocyte Esterase 1+H, Urine RBC (Auto) TRACE-IH, Urine RBC RARE, Urine WBC 2-5, Urine Squamous Epithelial Cells 2-5, Urine Crystals NONE, Urine Bacteria TRACE, Urine Casts NONE, Urine Mucus NEGATIVE, Urine Culture Indicated NO 02/23/22 22:05: Troponin I 0.106H 02/24/22 05:12: White Blood Count 4.9, Red Blood Count 3.85, Hemoglobin 10.0L, Hematocrit 32L, Mean Corpuscular Volume 83, Mean Corpuscular Hemoglobin 26, Mean Corpuscular Hemoglobin Concent 31L, Red Cell Distribution Width 15.1H, Platelet Count 195, Mean Platelet Volume 10.5, Sodium Level 142, Potassium Level 3.1L, Chloride Level 104, Carbon Dioxide Level 24, Anion Gap 14, Blood Urea Nitrogen 17, Creatinine 1.39H, Estimat Glomerular Filtration Rate 41, BUN/Creatinine Ratio 12, Glucose Level 103, Calcium Level 8.7, Corrected Calcium 9.1, Magnesium Level 1.7, Total Bilirubin 0.5, Aspartate Amino Transf (AST/SGOT) 14, Alanine Aminotransferase (ALT/SGPT) 11, Alkaline Phosphatase 77, Total Protein 6.2L, Albumin 3.5, Triglycerides Level 111, Cholesterol Level 121, LDL Cholesterol Direct 59, VLDL Cholesterol 22, HDL Cholesterol 43 Assessment/Plan Assessment/Plan Admission Dx Chest pain Elevated troponin Hypoxia Chronic Hypertension Chronic Oxygen use COPD Hyperlipidemia Insomnia Chronic renal disease Depression Restless leg syndrome Hypokalemia Hypomagnesemia Assessment and Plan Chest pain Elevated troponin Hypoxia Chronic Hypertension Chronic Oxygen use COPD Hyperlipidemia Insomnia Chronic renal disease Depression Restless leg syndrome Hypokalemia Hypomagnesemia Dry mouth Chest pain with Elevated troponin -pt has had persistent chest pain off and on for over a week - discussed with pt, her DTR's and Dr. Ragland. - pt has decided to stay and have Dr. Ragland perform her heart catheteri zation tomorrow when he is available. - monitor symptoms, pt given appropriate treatment in the ER. - admitted in [facility] with telemetry Hypoxia with Chronic oxygen use and mild COPD - continue with oxygen support - restart home medications when reconciled. Chronic Hypertension - pt on labetalol as outpt, will wait for reconciliation of medication and restart medication as indicated. Hyperlipidemia - restart statin therapy Insomnia - resumed melatonin Chronic renal disease - closely monitor renal function - improved from admission - repeat labs tomorrow - will need appropriate hydration before and after heart cath. Depression - resume medication when reconciliation is performed. Restless leg syndrome - resume ropinirole Hypokalemia, hypomagnesemia - replenished with iv medications on admit - given oral potassium this morning, repeat labs again in morning. Dry mouth - mouth kote today - before heart cath since she cannot eat/drink dvt prophylaxis with scd's lovenox being held until after heart cath gi prophylaxis with ppi Admission Dx Chest pain Elevated troponin Hypoxia Chronic Hypertension Chronic Oxygen use COPD Hyperlipidemia Insomnia Chronic renal disease Depression Restless leg syndrome Hypokalemia Hypomagnesemia Clinical Quality Measures Admission Status Admission Dx Chest pain Elevated troponin Hypoxia Chronic Hypertension Chronic Oxygen use COPD Hyperlipidemia Insomnia Chronic renal disease Depression Restless leg syndrome Hypokalemia Hypomagnesemia DANIELLA VILLALPANDO MD Feb 24, 2022 08:50
[2022-02-24] MEDS: PREGABALIN 50 MG (LYRICA) CAP PO SCH ×2 (08:56→20:39)
[2022-02-24] MEDS ORDERED: LOSARTAN 100 MG (COZAAR) TABLET PO SCH (09:00)
[2022-02-24] MEDS ORDERED: DULoxetine 30 MG (CYMBALTA) CAP PO SCH (09:00)
[2022-02-24] MEDS ORDERED: ASPIRIN E.C. 81 MG (ECOTRIN) TAB PO SCH (09:00)
[2022-02-24] MEDS ORDERED: PATIENT MAY USE OWN MEDS, ALL MC SCH (09:00)
[2022-02-24] MEDS ORDERED: DULO30CA49 PO (09:58)
[2022-02-24] MEDS ORDERED: ALPR0.5T7 PO (09:58)
[2022-02-24] MEDS ORDERED: CIDE300T3 PO (09:58)
[2022-02-24] MEDS ORDERED: PREG50CA65 PO (09:58)
[2022-02-24] MEDS ORDERED: BUME2TAB7 PO (09:58)
[2022-02-24] MEDS ORDERED: VIT1TAB.18 PO (09:58)
[2022-02-24] MEDS ORDERED: CYAN100015 SL (09:58)
[2022-02-24] MEDS ORDERED: ALBU18HF2 INH (09:58)
[2022-02-24] MEDS ORDERED: ASPI-1238 PO (09:58)
[2022-02-24] MEDS ORDERED: MAGN200T PO (09:59)
[2022-02-24] MEDS ORDERED: PANTOPRAZOLE 40 MG (PROTONIX) TAB PO PRN ×2 (10:45→13:00)
[2022-02-24] MEDS ORDERED: PREGABALIN 50 MG (LYRICA) CAP PO PRN ×2 (12:00→14:30)
[2022-02-24] MEDS ORDERED: ALPRAZolam 0.5 MG (XANAX) TAB PO PRN ×2 (12:00→13:30)
[2022-02-24] MEDS: CLOPIDOGREL 75 MG (PLAVIX) TABLET PO SCH (12:07)
[2022-02-24] MEDS ORDERED: fentaNYL INJ 100 MCG/2 ML AMP ONE (13:51)
[2022-02-24] MEDS ORDERED: MIDAZOLAM 5 MG/5 ML (VERSED) VIAL ONE (13:51)
[2022-02-24] MEDS ORDERED: meTOprolol 5 MG/5 ML (LOPRESSOR) VIAL ONE ×2 (14:20→14:34)
[2022-02-24] MEDS ORDERED: PATIENT MAY USE OWN MEDS, ALL PO SCH (14:45)
--- NOTE | 2022-02-24 14:46 | Progress Note - Cardiology ---
Cardiology SOAP Progress Note Subjective: No cp No shortness of breath at rest No n/v/d Gen weakness No focal weakness Objective: I&O/Vital Signs 02/24/22 02/24/22 02/24/22 02/24/22 04:00 04:00 07:00 07:47 Temp 36.1 36.1 Pulse 66 68 68 Resp 15 15 B/P (MAP) 121/84 (96) 121/84 (96) Pulse Ox 96 96 O2 Delivery Nasal Cannula Nasal Cannula O2 Flow Rate 4.00 4.00 4.00 02/24/22 02/24/22 02/24/22 02/24/22 07:48 08:46 11:52 13:00 Temp 36.0 35.7 Pulse 67 66 66 Resp 15 13 B/P (MAP) 146/91 (109) 155/81 (105) Pulse Ox 98 96 99 O2 Delivery Nasal Cannula Nasal Cannula Nasal Cannula O2 Flow Rate 4.00 4.00 4.00 02/24/22 13:46 O2 Delivery Nasal Cannula O2 Flow Rate 4.00 02/24/22 00:00 Intake Total 1560 ml Output Total 0 ml Balance 1560 ml Weight (Pounds): 221 Weight (Ounces): 3.2 Weight (Calculated Kilograms): 100.139655 Constitutional: AAO x 3, well-developed, well-nourished Respiratory: No accessory muscle use, No respiratory distress; chest expansion is symmetric, chest is bilaterally symmetric, lungs clear to auscultation Cardiovascular: regular rate-rhythm; No JVD; S1 and S2 Gastrointestional: No tender; soft, round, audible bowel sounds Extremities: no lower extremity edema bilateral Neurologic/Psychiatric: grossly intact (moves all extremities) Skin: No rash on exposed areas, No ulcerations on exposed areas Results/Procedures: Labs Laboratory Tests 02/23/22 15:35: Urine Color YELLOW, Urine Clarity CLEAR, Urine pH 6.0, Urine Specific [place] <=1.005, Urine Protein NEGATIVE, Urine Glucose (UA) NEGATIVE, Urine Ketones NEGATIVE, Urine Nitrite NEGATIVE, Urine Bilirubin NEGATIVE, Urine Urobilinogen 0.2, Urine Leukocyte Esterase 1+H, Urine RBC (Auto) TRACE-IH, Urine RBC RARE, Urine WBC 2-5, Urine Squamous Epithelial Cells 2-5, Urine Crystals NONE, Urine Bacteria TRACE, Urine Casts NONE, Urine Mucus NEGATIVE, Urine Culture Indicated NO 02/23/22 22:05: Troponin I 0.106H 02/24/22 05:12: White Blood Count 4.9, Red Blood Count 3.85, Hemoglobin 10.0L, Hematocrit 32L, Mean Corpuscular Volume 83, Mean Corpuscular Hemoglobin 26, Mean Corpuscular Hemoglobin Concent 31L, Red Cell Distribution Width 15.1H, Platelet Count 195, Mean Platelet Volume 10.5, Sodium Level 142, Potassium Level 3.1L, Chloride [place] 104, Carbon Dioxide Level 24, Anion Gap 14, Blood Urea Nitrogen 17, Creatinine 1.39H, Estimat Glomerular Filtration Rate 41, BUN/Creatinine Ratio 12, Glucose Level 103, Calcium Level 8.7, Corrected Calcium 9.1, Magnesium Level 1.7, Total Bilirubin 0.5, Aspartate Amino Transf (AST/SGOT) 14, Alanine Aminotransferase (ALT/SGPT) 11, Alkaline Phosphatase 77, Total Protein 6.2L, Albumin 3.5, Triglycerides Level 111, Cholesterol Level 121, LDL Cholesterol Direct 59, VLDL Cholesterol 22, HDL Cholesterol 43 A/P: Assessment: Mild troponin elevation, probably due to uncontrolled hypertension and 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 Santacruz showed no obstructive dz MPI of [address] Santacruz showed No ischemia or infarction on SPECT images.Normal left ventricular size with normal contractility. Calculated ejection fraction 78%. CKD 3b - reports only one kidney - follows with [facility] Reports h/o PE x 2 events - had been on OAC - reports it was stopped several months ago by Dr. Mora and she has been on ASA 81mg Depression/anxiety RLS Peripheral neuropathy Plan: * Add amlodipine and diuretic to previous antihypertensive regimen * Replenish lytes * Continue hydration to reduce risk of contrast nephropathy * Monitor labs * Echo * [facility] Feb 24, 2022 14:46
[2022-02-24] MEDS ORDERED: amLODIPine 5 MG (NORVASC) TAB PO NR (15:00)
--- NOTE | 2022-02-24 15:22 | Cardiac Procedure Note-CS/ASA ---
Pre-Procedure Note Pre-Op Procedure Note Date of Available H&P: Feb 23, 2022 Date H&P Reviewed: Feb 24, 2022 Time H&P Reviewed: 14:00 History & Physical: H&P Reviewed, No changes noted Conscious Sedation Pre-Proced ASA Score 3 For ASA 3 and 4: Consider anesthesia and medical clearance. Also, for patients with a history of failed moderate sedation consider anesthesia. Airway Lungs Heart ASA score ASA 1: a normal healthy patient ASA 2: a patient with a mild systemic disease (mid diabetes, controlled hypertension, obesity ASA 3: a patient with a severe systemic disease that limits activity (angina, COPD, prior Myocardial infarction) ASA 4: a patient with an incapacitating disease that is a constant threat to life (CHF, renal failure) ASA 5: a moribund patient not expected to survive 24 hrs. (ruptured aneurysm) ASA 6: a declared brain- patient whose organs are being harvested. For emergent operations, add the letter E after the classification Mallampati Classification Grade 3 Sedation Plan Analgesia, Amnesia, Plan communicated to team members The patient is an appropriate candidate to undergo the planned procedure, sedation, and anesthesia. The patient immediately re-assessed prior to indication. JUAN MORRIS MD FACP FAC CCDS Feb 24, 2022 15:22
[2022-02-24] MEDS: LABETALOL 200 MG (NORMODYNE) TAB PO SCH (20:37)
[2022-02-24] MEDS: AtorvaSTATin TABLET 10 MG TABLET PO SCH (20:38)
[2022-02-24] MEDS: ALPRAZolam 0.5 MG (XANAX) TAB PO SCH (20:39)
--- NOTE | 2022-02-24 22:00 | CARDIAC CATHETERIZATION ---
DATE OF SERVICE: 02/24/2022 CARDIAC CATHETERIZATION REPORT INDICATION: The patient is a 71-year-old lady, who has multiple coronary artery disease risk factors. She presented with chest discomfort radiating to the jaws and with shortness of breath. Troponin was mildly elevated. Acute coronary syndrome was suspected. Cardiac catheterization was recommended. Informed consent was obtained. Vigorous perioperative hydration was carried out starting before the procedure and continuing during and afterwards. This is because the patient has chronic kidney disease stage IIIB. Our goal was to try to prevent contrast nephropathy. She provided informed consent for the cardiac catheterization. She understood the risks, including her additional risk of contrast nephropathy, given baseline renal insufficiency. DESCRIPTION OF PROCEDURE: She was brought to the cardiac catheterization laboratory. Right groin was prepared and draped in the usual sterile fashion. A 1% lidocaine was used for local anesthesia. Modified Seldinger technique was used to advance a 5-Zambian sheath into the right femoral artery, 5-Zambian JL4 catheter was used for left coronary angiography, 5-Zambian JR4 catheter for right coronary angiography, 5-Zambian pigtail catheters for left heart catheterization. Left ventricular angiography was not performed. This was a conserve contrast, given the patient's renal insufficiency. The catheter was pulled back and removed. Manual pressure was used to achieve hemostasis. HEMODYNAMICS: Left ventricular end diastolic pressure, following coronary angiography was 17 mmHg. There was no significant pressure gradient on pullback across the aortic valve. Ascending aortic pressure is 180/95 with a mean of 132 mmHg. CORONARY ANGIOGRAPHY: Left main coronary artery is free of significant disease. Left anterior descending artery has mild mid vessel plaque. Left circumflex artery is nondominant and does not exhibit significant disease. Right coronary artery is large and dominant and does not exhibit significant disease. CONCLUSION: 1. Angiographically, mild coronary artery disease. 2. Severe hypertension and elevated left ventricular end-diastolic pressure, suggestive of diastolic dysfunction of the left ventricle. DISCUSSION AND RECOMMENDATIONS: Based on the results of the study, it appears appropriate to continue a conservative approach. Risk factor modification has been reviewed. Further recommendations will be based on her hospital course. Hydration is to be continued to reduce risk of contrast nephropathy. Job ID: [id number] DocumentID: [id number] Dictated Date: 02/24/2022 14:33:55 Studio Assistant Date: 02/24/2022 21:58:00 Dictated By: JUAN MORRIS MD; MA; FACP; FACC;
[2022-02-25] VITALS: BP 115/75
[2022-02-25] MEDS: NS IV 1000 ML 1,000 ML IV SCH ×4 (01:11→11:16)
[2022-02-25 04:00] VITALS: BP 138/78
[2022-02-25 06:09] LABS: HEMATOCRIT 28 % (35-52); HEMOGLOBIN 8.8 g/dL (11.5-16.0); MEAN CORPUSCULAR HEMOGLOBIN 26 pg (25-34); MEAN CORPUSCULAR HGB CONC 31 g/dL (32-36); MEAN CORPUSCULAR VOLUME 83 fL (80-99); MEAN PLATELET VOLUME 10.3 fL (9.0-12.2); PLATELET COUNT 165 10^3/uL (130-400); WHITE BLOOD COUNT 4.2 10^3/uL (4.3-11.0)
[2022-02-25 06:30] LABS: CALCIUM 8.3 MG/DL (8.5-10.1); CREATININE SERUM 1.02 MG/DL (0.60-1.30); MAGNESIUM 1.6 MG/DL (1.6-2.4); POTASSIUM 3.6 MMOL/L (3.6-5.0)
[2022-02-25] MEDS: KCL 10 MEQ TAB (MICRO K) PO SCH (06:35)
[2022-02-25 08:00] VITALS: BP 156/91
[2022-02-25] MEDS: CLOPIDOGREL 75 MG (PLAVIX) TABLET PO SCH (08:24)
[2022-02-25] MEDS: HydroCHLOROthiazide CAP/TABLET 12.5 MG TAB PO SCH (08:24)
[2022-02-25] MEDS: amLODIPine 5 MG (NORVASC) TAB PO SCH (08:24)
[2022-02-25] MEDS: ALPRAZolam 0.5 MG (XANAX) TAB PO SCH ×2 (08:25→20:39)
[2022-02-25] MEDS: PREGABALIN 50 MG (LYRICA) CAP PO SCH ×2 (08:32→20:38)
[2022-02-25] MEDS: ASPIRIN E.C. 81 MG (ECOTRIN) TAB PO SCH (08:35)
[2022-02-25] MEDS: [UNRECOGNIZED DRUG - REMARK] PO SCH (08:36)
[2022-02-25] MEDS: DULoxetine 30 MG (CYMBALTA) CAP PO SCH (08:36)
[2022-02-25] MEDS: LABETALOL 200 MG (NORMODYNE) TAB PO SCH ×2 (08:36→20:39)
[2022-02-25] MEDS: LOSARTAN 100 MG (COZAAR) TABLET PO SCH (08:37)
--- NOTE | 2022-02-25 08:39 | Progress Note ---
Subjective Subjective Date Seen by Provider: Feb 25, 2022 Time Seen by Provider: 08:30 Pt reports that she is feeling better, she continues to deny chest pain. She reports breathing better today compared to admission. Review of Systems General: No Chills; Fatigue HEENT: No Head Aches Pulmonary: Dyspnea; No Cough Cardiovascular: No: Chest Pain, Palpitations Gastrointestinal: No: Nausea, Abdominal Pain Neurological: No: Weakness, Confusion All Other Systems Reviewed All Other Systems Reviewed: Yes Objective Exam Vital Signs Vital Signs Date Time Temp Pulse Resp B/P (MAP) Pulse Ox O2 Delivery O2 Flow Rate FiO2 02/25/22 08:00 36.3 64 16 156/91 (112) 96 Nasal Cannula 3.00 02/25/22 07:00 68 02/25/22 04:00 36.2 53 16 138/78 (98) 96 Nasal Cannula 3.00 02/25/22 01:00 58 02/25/22 00:00 36.8 57 18 115/75 (88) 98 Nasal Cannula 3.00 02/24/22 21:31 97 Nasal Cannula 4.00 02/24/22 19:20 36.1 66 16 139/86 (103) 98 Nasal Cannula 3.00 02/24/22 19:00 62 02/24/22 18:00 63 17 139/89 (106) 98 Nasal Cannula 3.00 02/24/22 17:45 65 18 142/84 (103) 96 Nasal Cannula 3.00 02/24/22 17:30 65 20 162/86 (111) 97 Nasal Cannula 3.00 02/24/22 17:15 72 34 148/94 (112) 98 Nasal Cannula 3.00 02/24/22 17:00 65 16 139/118 (125) 98 Nasal Cannula 3.00 02/24/22 16:45 59 10 164/93 (116) 99 Nasal Cannula 3.00 02/24/22 16:30 61 6 174/96 (122) 100 Nasal Cannula 3.00 02/24/22 16:15 58 7 167/89 (115) 90 Nasal Cannula 3.00 02/24/22 16:00 60 10 162/89 (113) 90 Nasal Cannula 3.00 02/24/22 15:52 36.4 65 22 150/105 (120) 93 Nasal Cannula 3.00 02/24/22 15:45 65 16 150/105 (120) 97 Nasal Cannula 3.00 02/24/22 15:30 62 11 165/92 (116) 98 Nasal Cannula 3.00 02/24/22 15:15 64 153/88 (109) Nasal Cannula 3.00 02/24/22 13:46 Nasal Cannula 4.00 02/24/22 13:00 66 02/24/22 11:52 35.7 66 13 155/81 (105) 99 Nasal Cannula 4.00 02/24/22 08:46 96 Nasal Cannula 4.00 I & O 02/25/22 07:00 Intake Total 440 ml Balance 440 ml General Appearance: No Apparent Distress, WD/WN HEENT: PERRL/EOMI, Pharynx Normal Neck: Full Range of Motion, Non Tender, Supple Respiratory: Chest Non Tender, Lungs Clear, Normal Breath Sounds, No Accessory Muscle Use, No Respiratory Distress Cardiovascular: Regular Rate, Rhythm, Normal Peripheral Pulses Gastrointestinal: Normal Bowel Sounds, No Pulsatile Mass, Non Tender, Soft Rectal: Deferred Back: No Vertebral Tenderness Extremity: Normal Capillary Refill, No Calf Tenderness, Pedal Edema (trace) Neurologic/Psychiatric: Alert, Oriented x3, No Motor/Sensory Deficits, Normal Mood/Affect Skin: Normal Color, Warm/Dry Lymphatic: No Adenopathy Results Lab Laboratory Tests 02/25/22 05:40: White Blood Count 4.2L, Red Blood Count 3.38L, Hemoglobin 8.8L, Hematocrit 28L, Mean Corpuscular Volume 83, Mean Corpuscular Hemoglobin 26, Mean Corpuscular Hemoglobin Concent 31L, Red Cell Distribution Width 15.1H, Platelet Count 165, Mean Platelet Volume 10.3, Sodium Level 141, Potassium Level 3.6, Chloride Level 110H, Carbon Dioxide Level 20L, Anion Gap 11, Blood Urea Nitrogen 14, Creatinine 1.02, Estimat Glomerular Filtration Rate 59, BUN/Creatinine Ratio 14, Glucose Level 99, Calcium Level 8.3L, Magnesium Level 1.6 Assessment/Plan Assessment/Plan Admission Dx Chest pain Elevated troponin Hypoxia Chronic Hypertension Chronic Oxygen use COPD Hyperlipidemia Insomnia Chronic renal disease Depression Restless leg syndrome Hypokalemia Hypomagnesemia Assessment and Plan Chest pain Elevated troponin Hypoxia Chronic Hypertension Chronic Oxygen use COPD Hyperlipidemia Insomnia Chronic renal disease Depression Restless leg syndrome Hypokalemia Hypomagnesemia Dry mouth Chest pain with Elevated troponin -pt has had persistent chest pain off and on for over a week - discussed with pt, her DTR's and Dr. Ragland. Heart cath report as follows: CONCLUSION: 1. Angiographically, mild coronary artery disease. 2. Severe hypertension and elevated left ventricular end-diastolic pressure, suggestive of diastolic dysfunction of the left ventricle. DISCUSSION AND RECOMMENDATIONS: Based on the results of the study, it appears appropriate to continue a conservative approach. Risk factor modification has been reviewed. Further recommendations will be based on her hospital course. Hydration is to be continued to reduce risk of contrast nephropathy. - admitted in [facility] with telemetry Hypoxia with Chronic oxygen use and mild COPD - continue with oxygen support - restarted home medications Chronic Hypertension - pt on labetalol as outpt, will wait for recommendations by cardiology Hyperlipidemia - restarted statin therapy Chronic renal disease - closely monitor renal function - improved from admission - repeat labs tomorrow, creat stable Depression - resumed medication Restless leg syndrome - resumed ropinirole Hypokalemia, hypomagnesemia - replenished with iv medications on admit - given oral potassium this morning, repeat labs again in morning. Dry mouth - mouthkote dvt prophylaxis with scd's lovenox being held until after heart cath gi prophylaxis with ppi Admission Dx Chest pain Elevated troponin Hypoxia Chronic Hypertension Chronic Oxygen use COPD Hyperlipidemia Insomnia Chronic renal disease Depression Restless leg syndrome Hypokalemia Hypomagnesemia Clinical Quality Measures Admission Status Admission Dx Chest pain Elevated troponin Hypoxia Chronic Hypertension Chronic Oxygen use COPD Hyperlipidemia Insomnia Chronic renal disease Depression Restless leg syndrome Hypokalemia Hypomagnesemia DANIELLA VILLALPANDO MD Feb 25, 2022 08:39
[2022-02-25] MEDS: MAGNESIUM 1 GM/100 ML IVPB 100 ML IV SCH (08:50)
--- NOTE | 2022-02-25 11:17 | Progress Note - Cardiology ---
Cardiology SOAP Progress Note Subjective: Sitting up in bed No c/o CP No c/o SOB this morning No c/o right groin discomfort Objective: I&O/Vital Signs Weight (Pounds): 221 Weight (Ounces): 3.2 Weight (Calculated Kilograms): 100.749063 Side: right Groin site without hematoma: Yes Condition: DP/PT pulses palpable Bruising: mild bruising Constitutional: AAO x 3, well-developed, well-nourished Respiratory: No accessory muscle use, No respiratory distress; chest expansion is symmetric, chest is bilaterally symmetric, lungs clear to auscultation Cardiovascular: regular rate-rhythm; No JVD; S1 and S2 Gastrointestional: No tender; soft, round, audible bowel sounds Extremities: no lower extremity edema bilateral Neurologic/Psychiatric: grossly intact (moves all extremities) Skin: No rash on exposed areas, No ulcerations on exposed areas Results/Procedures: Labs A/P: Assessment: Mild troponin elevation, probably due to uncontrolled hypertension and diastolic dysfunction of LV (type 2 [place]) - card cath on 02/24/22: mild plaque of mid LAD and diag, no significant disease of LCX or dominant RCA, LVEDP 17 mmHg Severe hypertension - controlled Palpitations/dizziness/weakness of undetermined etiology Electrolytes abnormalities - hypokalemia/hypomag - resolved CKD 3b - reports only one kidney - follows with [facility] - renals improved following IVF hydration Reports h/o PE x 2 events - had been on OAC - reports it was stopped several months ago by Dr. Mora and she has been on ASA 81mg Depression/anxiety RLS Peripheral neuropathy Plan: * Continue current regimen * Replenish lytes * Renal function has improved following IVF hydration - stop IVF today * Monitor labs * Echo * Increase activity today DILAN SMITH Feb 25, 2022 11:17
[2022-02-25 11:51] VITALS: BP 117/90
[2022-02-25 16:08] VITALS: BP 126/81
--- NOTE | 2022-02-25 16:59 | Progress Note - Cardiology ---
Cardiology SOAP Progress Note Subjective: No cp or palp or syncope No shortness of breath No groin or leg discomfort No n/v/d Some gen malaise, improving Objective: I&O/Vital Signs 02/25/22 02/25/22 02/25/22 02/25/22 07:00 08:00 08:00 08:54 Temp 36.3 Pulse 68 64 Resp 16 B/P (MAP) 156/91 (112) Pulse Ox 96 99 O2 Delivery Nasal Cannula Nasal Cannula Nasal Cannula O2 Flow Rate 3.00 3.00 3.00 02/25/22 02/25/22 02/25/22 11:51 13:00 16:08 Temp 36.3 35.9 Pulse 57 69 63 Resp 12 18 B/P (MAP) 117/90 (99) 126/81 (96) Pulse Ox 96 97 O2 Delivery Nasal Cannula Nasal Cannula O2 Flow Rate 3.00 3.00 02/25/22 00:00 Intake Total 440 ml Balance 440 ml Weight (Pounds): 221 Weight (Ounces): 3.2 Weight (Calculated Kilograms): 100.287932 Side: right Groin site without hematoma: Yes Condition: DP/PT pulses palpable Bruising: mild bruising Constitutional: AAO x 3, well-developed, well-nourished Respiratory: No accessory muscle use, No respiratory distress; chest expansion is symmetric, chest is bilaterally symmetric, lungs clear to auscultation Cardiovascular: regular rate-rhythm; No JVD; S1 and S2 Gastrointestional: No tender; soft, round, audible bowel sounds Extremities: no lower extremity edema bilateral Neurologic/Psychiatric: grossly intact (moves all extremities) Skin: No rash on exposed areas, No ulcerations on exposed areas Results/Procedures: Labs Laboratory Tests 02/25/22 05:40: White Blood Count 4.2L, Red Blood Count 3.38L, Hemoglobin 8.8L, Hematocrit 28L, Mean Corpuscular Volume 83, Mean Corpuscular Hemoglobin 26, Mean Corpuscular Hemoglobin Concent 31L, Red Cell Distribution Width 15.1H, Platelet Count 165, Mean Platelet Volume 10.3, Sodium Level 141, Potassium Level 3.6, Chloride Level 110H, Carbon Dioxide Level 20L, Anion Gap 11, Blood Urea Nitrogen 14, Creatinine 1.02, Estimat Glomerular Filtration Rate 59, BUN/Creatinine Ratio 14, Glucose Level 99, Calcium Level 8.3L, Magnesium Level 1.6 Laboratory Tests 02/24/22 05:12 02/25/22 05:40 A/P: Assessment: Mild troponin elevation, probably due to uncontrolled hypertension and diastolic dysfunction of LV (type 2 [place]) - card cath on 02/24/22: mild plaque of mid LAD and diag, no significant disease of LCX or dominant RCA, LVEDP 17 mmHg Severe hypertension with hypertensive cardiovascular disease - Echo on 02/25/22: LVEF 55-60%, mild conc LVH, moderate enlargement of both atria, PASP 65-70 mmHg Pulmonary hypertension - consider sleep apnea - we recommend Pulm consult Anemia of undetermined etiology - managed by Dr Lao Electrolytes abnormalities - hypokalemia/hypomag - resolved CKD 3b - reports only one kidney - follows with [facility] - renals improved following IVF hydration Reports h/o PE x 2 events - had been on OAC - reports it was stopped several months ago by Dr. Mora and she has been on ASA 81mg Depression/anxiety RLS Peripheral neuropathy Plan: * I again discussed her cardiac finding with her (see under Assessment) * Advised Pulm consult and consideration of sleep studies, given pulm htn * Renal function has improved following IVF hydration - stop IVF today * Advised continuing f/u with her Rubber Boots And Shoes Repairer * Advised continuing f/u with her emotionally impaired teacher. Advised f/u within 1-2 weeks of discharge JUAN MORRIS MD FACP [facility] Feb 25, 2022 16:59
[2022-02-25 20:17] VITALS: BP 161/86
[2022-02-25] MEDS: ACETAMINOPHEN 325 MG TABLET PO PRN (20:21)
[2022-02-25] MEDS: AtorvaSTATin TABLET 10 MG TABLET PO SCH (20:39)
[2022-02-26 04:08] VITALS: BP 154/87
[2022-02-26 05:14] LABS: HEMATOCRIT 28 % (35-52); HEMOGLOBIN 8.9 g/dL (11.5-16.0); MEAN CORPUSCULAR HEMOGLOBIN 26 pg (25-34); MEAN CORPUSCULAR HGB CONC 31 g/dL (32-36); MEAN CORPUSCULAR VOLUME 83 fL (80-99); MEAN PLATELET VOLUME 10.2 fL (9.0-12.2); PLATELET COUNT 160 10^3/uL (130-400); WHITE BLOOD COUNT 4.3 10^3/uL (4.3-11.0)
[2022-02-26 05:32] LABS: POTASSIUM 3.4 MMOL/L (3.6-5.0)
[2022-02-26 05:33] LABS: CALCIUM 8.7 MG/DL (8.5-10.1)
[2022-02-26 05:37] LABS: CREATININE SERUM 1.05 MG/DL (0.60-1.30)
[2022-02-26 05:40] LABS: MAGNESIUM 1.7 MG/DL (1.6-2.4)
[2022-02-26 08:00] VITALS: BP 153/97
[2022-02-26] MEDS: KCL 10 MEQ TAB (MICRO K) PO SCH (09:09)
[2022-02-26] MEDS: CLOPIDOGREL 75 MG (PLAVIX) TABLET PO SCH (09:09)
[2022-02-26] MEDS: HydroCHLOROthiazide CAP/TABLET 12.5 MG TAB PO SCH (09:09)
[2022-02-26] MEDS: amLODIPine 5 MG (NORVASC) TAB PO SCH (09:09)
[2022-02-26] MEDS: PREGABALIN 50 MG (LYRICA) CAP PO SCH (09:15)
[2022-02-26] MEDS: ALPRAZolam 0.5 MG (XANAX) TAB PO SCH (09:16)
[2022-02-26] MEDS: ASPIRIN E.C. 81 MG (ECOTRIN) TAB PO SCH (09:17)
[2022-02-26] MEDS: DULoxetine 30 MG (CYMBALTA) CAP PO SCH (09:18)
[2022-02-26] MEDS: [UNRECOGNIZED DRUG - REMARK] PO SCH (09:18)
[2022-02-26] MEDS: LABETALOL 200 MG (NORMODYNE) TAB PO SCH (09:18)
[2022-02-26] MEDS: LOSARTAN 100 MG (COZAAR) TABLET PO SCH (09:19)
--- NOTE | 2022-02-26 11:01 | Progress Note - Cardiology ---
Cardiology SOAP Progress Note Subjective: Sitting up in recliner at the bedside States she is going home today She denies any c/o CP or palpitations States breathing is at her baseline Objective: I&O/Vital Signs Weight (Pounds): 221 Weight (Ounces): 3.2 Weight (Calculated Kilograms): 100.952020 Side: right Groin site without hematoma: Yes Condition: DP/PT pulses palpable Bruising: mild bruising Constitutional: AAO x 3, well-developed, well-nourished Respiratory: No accessory muscle use, No respiratory distress; chest expansion is symmetric, chest is bilaterally symmetric, lungs clear to auscultation Cardiovascular: regular rate-rhythm; No JVD; S1 and S2 Gastrointestional: No tender; soft, round, audible bowel sounds Extremities: no lower extremity edema bilateral Neurologic/Psychiatric: grossly intact (moves all extremities) Skin: No rash on exposed areas, No ulcerations on exposed areas Results/Procedures: Labs A/P: Assessment: Mild troponin elevation, probably due to uncontrolled hypertension and diastolic dysfunction of LV (type 2 PR) - card cath on 02/24/22: mild plaque of mid LAD and diag, no significant disease of LCX or dominant RCA, LVEDP 17 mmHg Severe hypertension with hypertensive cardiovascular disease - Echo on 02/25/22: LVEF 55-60%, mild conc LVH, moderate enlargement of both atria, PASP 65-70 mmHg Pulmonary hypertension - she is established with [facility] and has supplemental oxygen - advised continued f/u - reports she had a sleep study 4 months ago which did not show sleep apnea per her report Anemia of undetermined etiology - managed by Dr Lao Electrolytes abnormalities - hypokalemia/hypomag - resolved CKD 3b - reports only one kidney - follows with [facility] - renals improved following IVF hydration Reports h/o PE x 2 events - had been on OAC - reports it was stopped several months ago by Dr. Mora and she has been on ASA 81mg Depression/anxiety RLS Peripheral neuropathy Plan: * I again discussed her cardiac finding with her (see under Assessment) * She is established with [facility] - supplemental oxygen at home - advise continued f/u * She reports she had sleep studies 4 months ago which did not show sleep apnea per her report * Renal function has improved following IVF hydration - stop IVF today * Advised continuing f/u with her Hot Plate Plywood Press Operator * Advised continuing f/u with her ramp lead. Advised f/u within 1-2 weeks of discharge DILAN SMITH Feb 26, 2022 11:01
[2022-02-26 12:00] VITALS: BP 141/71
[2022-02-26] MEDS ORDERED: POTA-160 PO (15:31)
[2022-02-26] MEDS ORDERED: AMLO-250 PO (15:31)
[2022-02-26] MEDS ORDERED: CLOP75TA28 PO (15:31)
[2022-02-26] MEDS ORDERED: HYDR12.56 PO (15:31)
--- NOTE | 2022-02-26 15:36 | Discharge Inst-Simple/Standard ---
Discharge Inst-Standard Reconcile Patient Problems Problems Reviewed?: Yes Discharge Medications New, Converted or Re-Newed RX: Transmitted to Pharmacy Patient Instructions/Follow Up Plan of Care/Instructions/FU: 1 wk from today - check cmp, cbc 1 wk follow up in [facility] Activity as Tolerated: Yes Discharge Diet: Low Sodium Diet Return to The Hospital For: any recurrent chest pain, shortness of breath that is uncontrolled, or other acute concerns or illnesses Medication List: Active Scripts Active Hydrochlorothiazide 12.5 Mg Tablet 12.5 Mg PO DAILY Klor-Con 10 (Potassium Chloride) 10 Meq Tablet.er 10 Meq PO BID Amlodipine Besylate 5 Mg Tablet 5 Mg PO DAILY Reported Magnesium 200 Mg Tablet 200 Mg PO DAILY Apple Cider Vinegar (Cider Vinegar) 300 Mg Tablet 300 Mg PO DAILY Kontron Gummy (Vit C/Zinc Citrate/Elderberry) 45 Mg-3.75 Mg-50 Mg Tab.chew 1 Each PO DAILY Vitamin B-12 (Cyanocobalamin (Vitamin B-12)) 1,000 Mcg Tab.subl 1,000 Mcg SL DAILY Ventolin Hfa (Albuterol Sulfate) 90 Mcg Hfa.aer.ad 2 Puff INH Q6H PRN Alprazolam 0.5 Mg Tablet 0.5 Mg PO 1200 PRN Pregabalin 50 Mg Capsule 50 Mg PO 1200 PRN Bumetanide 2 Mg Tablet 2 Mg PO 1400 PRN Duloxetine HCl 30 Mg Capsule.dr 30 Mg PO DAILY TAKES 60MG +30MG TOGETHER TO EQUAL 90MG Aspirin EC (Aspirin) 81 Mg Tablet.dr 81 Mg PO DAILY Labetalol HCl 200 Mg Tablet 200 Mg PO BID Singulair (Montelukast Sodium) 10 Mg Tablet 10 Mg PO HS Alprazolam 0.5 Mg Tablet 0.5 Mg PO BID Bumetanide 2 Mg Tablet 2 Mg PO DAILY Losartan Potassium 100 Mg Tablet 100 Mg PO DAILY Tramadol HCl 50 Mg Tablet 50-100 Mg PO BID PRN Vitamin D2 (Ergocalciferol (Vitamin D2)) 1,250 Mcg (37227 Unit) Capsule 1,250 Mcg PO TUES Pantoprazole Sodium 40 Mg Tablet.dr 40 Mg PO DAILY PRN Pregabalin 50 Mg Capsule 50 Mg PO BID Ropinirole HCl 1 Mg Tablet 1 Mg PO HS Duloxetine HCl 60 Mg Capsule.dr 60 Mg PO DAILY TAKES 60MG +30MG TOGETHER TO EQUAL 90MG Atorvastatin Calcium 10 Mg Tablet 10 Mg PO HS Lab results: Laboratory Tests Test 02/26/22 04:54 Range/Units White Blood Count 4.3 4.3-11.0 10^3/uL Red Blood Count 3.43 L 3.80-5.11 10^6/uL Hemoglobin 8.9 L 11.5-16.0 g/dL Hematocrit 28 L 35-52 % Mean Corpuscular Volume 83 80-99 fL Mean Corpuscular Hemoglobin 26 25-34 pg Mean Corpuscular Hemoglobin Concent 31 L 32-36 g/dL Red Cell Distribution Width 15.1 H 10.0-14.5 % Platelet Count 160 130-400 10^3/uL Mean Platelet Volume 10.2 9.0-12.2 fL Sodium Level 139 135-145 MMOL/L Potassium Level 3.4 L 3.6-5.0 MMOL/L Chloride Level 109 H 98-107 MMOL/L Carbon Dioxide Level 20 L 21-32 MMOL/L Anion Gap 10 5-14 MMOL/L Blood Urea Nitrogen 14 7-18 MG/DL Creatinine 1.05 0.60-1.30 MG/DL Estimat Glomerular Filtration Rate 57 BUN/Creatinine Ratio 13 Glucose Level 96 70-105 MG/DL Calcium Level 8.7 8.5-10.1 MG/DL Magnesium Level 1.7 1.6-2.4 MG/DL My orders: Orders - DANIELLA VILLALPANDO MD Ekg Tracing (02/26/22 05:00) Attending Discharge Inpt/Inobs (02/26/22 15:25) DANIELLA VILLALPANDO MD Feb 26, 2022 15:36
[2022-02-26] MEDS ORDERED: IRON1TAB89 PO (15:38)
--- NOTE | 2022-02-26 15:39 | Discharge Summary ---
Diagnosis/Chief Complaint Date of Admission Feb 23, 2022 at 16:00 Date of Discharge 02/26/22 Discharge Date: Feb 26, 2022 Discharge Time: 1530 Admission Diagnosis Admission Diagnosis Chest pain Elevated troponin Hypoxia Chronic Hypertension Chronic Oxygen use COPD Hyperlipidemia Insomnia Chronic renal disease Depression Restless leg syndrome Hypokalemia Hypomagnesemia Dry mouth Discharge Diagnosis Chest pain Elevated troponin Hypoxia Chronic Hypertension Chronic Oxygen use COPD Hyperlipidemia Insomnia Chronic renal disease Depression Restless leg syndrome Hypokalemia Hypomagnesemia Dry mouth Reason Hospital Visit Pt is a 71 y/o female who is known to me from clinic. Poonam and her DTR reports that Constance started to have chest pain symptoms over a week ago - on a Wednesday evening her dtr was at her house and Poonam reported clutched her chest, complained of chest pain going to her back and up her neck. Her DTR tried to get Constance to go to the hospital, but she refused to go to the ER. Her pain intermittently continued throughout this week and over the weekend with increased shortness of breath and use of her PRN oxygen. Poonam reports that the pain and shortness of breath became worse today and she subsequently called EMS to transport her to the hospital ER in [place]. Poonam continues to have some intermittent chest pain. Discharge Summary Procedures: heart catheterization Consultations Dr. Ragland Discharge Physical Examination Allergies: Coded Allergies: No Known Drug Allergies (Unverified , 10/14/21) Vitals & I&Os General Appearance: Alert, Oriented X3, Cooperative, No Acute Distress HEENT: Atraumatic, PERRLA, Mucous Memb Moist/[place] Respiratory: Clear to Auscultation, Normal Air Movement Cardiovascular: Regular Rate Abdominal: Normal Bowel Sounds, Soft, No Tenderness Extremities: No Clubbing, No Cyanosis, Other (trace edema bilateral lower legs) Neuro: Strength at 5/5 X4 Ext, Cranial Nerves 3-12 NL Psych/Mental Status: Mental Status NL, Mood NL Hospital Course Chest pain Elevated troponin Hypoxia Chronic Hypertension Chronic Oxygen use COPD Hyperlipidemia Insomnia Chronic renal disease Depression Restless leg syndrome Hypokalemia Hypomagnesemia Dry mouth Chest pain with Elevated troponin -pt has had persistent chest pain off and on for over a week - discussed with pt, her DTR's and Dr. Ragland. Heart cath report as follows: CONCLUSION: 1. Angiographically, mild coronary artery disease. 2. Severe hypertension and elevated left ventricular end-diastolic pressure, suggestive of diastolic dysfunction of the left ventricle. DISCUSSION AND RECOMMENDATIONS: Based on the results of the study, it appears appropriate to continue a conservative approach. Risk factor modification has been reviewed. Further recommendations will be based on her hospital course. Hydration is to be john nued to reduce risk of contrast nephropathy. - admitted in [facility] with telemetry Hypoxia with Chronic oxygen use and mild COPD - continue with oxygen support - restarted home medications Chronic Hypertension - pt on labetalol as outpt, will wait for recommendations by cardiology Hyperlipidemia - restarted statin therapy Chronic renal disease - closely monitor renal function - improved from admission - repeat labs tomorrow, creat stable Depression - resumed medication Restless leg syndrome - resumed ropinirole Hypokalemia, hypomagnesemia - replenished with iv medications on admit - given oral potassium this morning, repeat labs again in morning. Dry mouth - mouthkote dvt prophylaxis with scd's lovenox being held until after heart cath gi prophylaxis with ppi see note from cardiology - as follows: Assessment: Mild troponin elevation, probably due to uncontrolled hypertension and diastolic dysfunction of LV (type 2 OR) - card cath on 02/24/22: mild plaque of mid LAD and diag, no significant disease of LCX or dominant RCA, LVEDP 17 mmHg Severe hypertension with hypertensive cardiovascular disease - Echo on 02/25/22: LVEF 55-60%, mild conc LVH, moderate enlargement of both atria, PASP 65-70 mmHg Pulmonary hypertension - she is established with [facility] and has supplemental oxygen - advised continued f/u - reports she had a sleep study 4 months ago which did not show sleep apnea per her report Anemia of undetermined etiology - managed by Dr Lao Electrolytes abnormalities - hypokalemia/hypomag - resolved CKD 3b - reports only one kidney - follows with [facility] - renals improved following IVF hydration Reports h/o PE x 2 events - had been on OAC - reports it was stopped several months ago by Dr. Mora and she has been on ASA 81mg Depression/anxiety RLS Peripheral neuropathy Discharge Condition at discharge improved Instructions to patient/family Please see electronic discharge instructions given to patient. Discharge Medications Reviewed and agree with Discharge Medication list on patient's Discharge Instruction sheet DANIELLA LAO MD Feb 26, 2022 15:39
[2022-02-26 16:00] VITALS: BP 141/71
[2022-02-26 18:04] VITALS: BP 141/71
--- NOTE | 2022-02-26 20:33 | Physician Query Clarification ---
Physician Query-General Query to Physician: The medical record reflects the following clinical scenario: The patient, in the setting of History/Risk factors, high cholesterol, hypertension Clinical Findings Troponin I 0.161, 0.106 Chest pain, shortness of Breath using PRN 02, "mild troponin elevation probably due to uncontrolled hypertension and diastolic dysfunction of LV type II TN" Treatment Cardiology consult, Cardiac cath, Plavix, Question: Do you agree with the impression of Type [address] Cristopher Ragland? 1. Yes; will document type 2 TN, in the Progress Notes 2. No; will continue current documentation in the Progress Notes 3. Other; will document explanation of clinical findings 4. Clinically undetermined; no explanation for clinical findings Please clarify and document your clinical opinion in the Progress Notes and Discharge Summary including the definitive and/or presumptive diagnosis, (suspected or probable), related to the above clinical findings. Please include clinical findings supporting your diagnosis. In responding to this query, please exercise your independent professional ju dgment. The purpose of this communication is to more accurately reflect the complexity of your patients condition. The fact that a question is asked does not imply that any particular answer is desired or expected. Thank you for timely response to this clarification. Elsa Rivera RN, MSN Clinical Packing Machine Pilot Can Router [phone] [email or web address] PHYSICIAN RESPONSE: Based on the clinical findings in the record, please respond to the query above on this document as an addendum. Physician Response: Physician Response yes - see documentation If you have questions please contact: Plastic Tubing Insulation Supervisor: Ext: Thank you for your time and cooperation. Clinical Packing Machine Pilot Can Router/Plastic Tubing Insulation Supervisor This is a permanent part of the medical record ELSA RIVERA Feb 26, 2022 20:32 DANIELLA VILLALPANDO MD Mar 18, 2022 12:37
--- NOTE | 2022-03-01 22:28 | Physician Query Clarification ---
PQ-Uncertain Diagnosis Admission/Discharge Admission Date: Feb 23, 2022 at 16:00 Discharge Date: Feb 26, 2022 at 16:45 DANIELLA Corral MD The medical record reflects the following clinical scenario: History/Risk Factors: 71 y/o female patient admitted with chest pain and elevated troponin, type II VT was documented in medical record. Clinical Findings: Troponin I 0.161, 0.106 Chest pain, shortness of Breath using PRN 02, "mild troponin elevation probably due to uncontrolled hypertension and diastolic dysfunction of LV type II VT". Treatment: Cardiology consult, Cardiac catheterization, Plavix. Question: Is Type II VT a clinically valid diagnosis? Type II VT was documented in the cardiology progress notes, 02/26 with no further documentation in the medical record. Please document a response in Progress Note or Discharge Summary. 1. Yes, clinically valid, condition resolved. 2. No, condition ruled out. 3. Other, with explanation of clinical findings. 4. Undetermined, no explanation for clinical findings. PHYSICIAN RESPONSE Diagnosis clinically valid: Other, explanation/clinical finding (see documentation) In responding to this query, please exercise your independent professional judgment. The purpose of this communication is to more accurately reflect the complexity of your patients condition. The fact that a question is asked does not imply that any particular answer is desired or expected. Thank you for your timely response to this clarification. Requestors name: [ ] Phone # [ ] THIS PHYSICIAN QUERY FORM IS A PERMANENT PART OF THE MEDICAL RECORD KYRA MEDEIROS Mar 01, 2022 22:28 DANIELLA VILLALPANDO MD Mar 18, 2022 12:37
== END 2022-02-26 16:45 | disposition home or self-care (01) | DRG 281 ==
LOC: EDUNIT# 14:00 → ER 14:01 → CSD 16:00
PROVIDERS: ADMIT Family Medicine; ATTEND Family Medicine
PROC: 4A023N7 Measurement of Cardiac Sampling and Pressure, Left Heart, Percutaneous Approach (ICD-10-PCS; principal; 2022-02-24)
PROC: B2111ZZ Fluoroscopy of Multiple Coronary Arteries using Low Osmolar Contrast (ICD-10-PCS; 2022-02-24)
DX: R07.9 Chest pain, unspecified (principal); I21.A1 Myocardial infarction type 2; Z68.41 Body mass index [BMI] 40.0-44.9, adult; R77.8 Other specified abnormalities of plasma proteins; R09.02 Hypoxemia; Z99.81 Dependence on supplemental oxygen; J44.9 Chronic obstructive pulmonary disease, unspecified; E78.5 Hyperlipidemia, unspecified; G47.00 Insomnia, unspecified; F32.A Depression, unspecified; G25.81 Restless legs syndrome; E87.6 Hypokalemia; E83.42 Hypomagnesemia; I12.9 Hypertensive chronic kidney disease with stage 1 through stage 4 chronic kidney disease, or unspecified chronic kidney disease; Z79.82 Long term (current) use of aspirin; Z79.899 Other long term (current) drug therapy; E78.00 Pure hypercholesterolemia, unspecified; Z96.653 Presence of artificial knee joint, bilateral; M19.90 Unspecified osteoarthritis, unspecified site; G89.29 Other chronic pain; M54.9 Dorsalgia, unspecified; E66.9 Obesity, unspecified; R68.2 Dry mouth, unspecified; N18.32 Chronic kidney disease, stage 3b; F41.9 Anxiety disorder, unspecified; G62.9 Polyneuropathy, unspecified; Z86.711 Personal history of pulmonary embolism; Z79.01 Long term (current) use of anticoagulants
CPT/HCPCS: 36415; 70450; 71045; 80048; 80053; 80061; 81000; 82728; 83540; 83550; 83735; 83874; 84484; 85025; 85027; 85610; 85730; 93005; 93041; 93306; 93458; 94760; 96361; 96365